=== PATIENT | female | born 1945 | race Caucasian/White ===

== ENCOUNTER 2018-02-15 08:17 | Inpatient (IN) | payer OTHER, MEDICARE ==
--- NOTE | 2018-02-15 10:10 | PDOC ---
History of Present Illness <JoeyKayla - Last Filed: 02/15/18 11:06> - History of Present Illness Initial Comments: 02/15/18 10:36 The patient is a 72-year-old female, with a past medical history of HTN, CLL ( not on any treatment), thalassemia, anxiety, kidney stones, gallstones, who presents to the ED with facial swelling today. Daughter is at bedside and reports that her mother was complaining of nausea but no vomiting. Patient refused to go to the hospital. Daughter went to visit her mother before work and noted the facial swelling, which is worse under her eyes and the left-side of her face. She also reports that the patient appeared more yellow in color last week but today appears more pale. Patient was scheduled to have blood work drawn today at the hospital per Dr. Sabi Leyva orders. The patient denies any fevers, chills, vomiting, diarrhea, or abdominal pain. She denies any chest pain or shortness of breath. She denies any urinary symptoms. Allergies: NKDA PCP: Dr. Sabi Jordan Oncologist: Dr. Garcia Gastro: Dr. Ga Cardio: Dr. Wick Uro: Dr. Valdez <Lo Johnson - Last Filed: 02/15/18 15:40> - General Chief Complaint: Nausea Stated Complaint: NAUSEA Time Seen by Provider: 02/15/18 09:37 Past History <JoeyKayla - Last Filed: 02/15/18 11:06> - Past Medical History Anemia: Yes (THALASSEMIA) Asthma: No Cancer: No Cardiac Disorders: No CVA: No COPD: No CHF: No Dementia: No Diabetes: No GI Disorders: No Disorders: Yes (RENAL CALCULI) HTN: Yes Hypercholesterolemia: No Liver Disease: No Seizures: No Thyroid Disease: No Other medical history: CLL 2014 - Surgical History Abdominal Surgery: No Appendectomy: No Cardiac Surgery: No Cholecystectomy: No Lung Surgery: No Neurologic Surgery: No Orthopedic Surgery: No - Suicide/Smoking/Psychosocial Hx Smoking Status: No Smoking History: Never smoked Have you smoked in the past 12 months: No Number of Cigarettes Smoked Daily: 0 Hx Alcohol Use: No Drug/Substance Use Hx: No Substance Use Type: None Hx Substance Use Treatment: No <Lo Johnson - Last Filed: 02/15/18 15:40> - Past Medical History Allergies/Adverse Reactions: Allergies Allergy/AdvReac Type Severity Reaction Status Date / Time No Known Drug Allergies Allergy Verified 02/15/18 08:23 Home Medications: Ambulatory Orders Aspirin [ASA -] 81 mg PO DAILY #0 tab.chew 08/26/12 Amlodipine Besylate [Norvasc -] 10 mg PO DAILY 09/01/13 Losartan Potassium 100 mg PO DAILY 02/15/18 Metoprolol Succinate 50 mg PO DAILY 02/15/18 Review of Systems - Review of Systems Comments:: 02/15/18 10:37 GENERAL/CONSTITUTIONAL: No fever or chills. No weakness. HEAD, EYES, EARS, NOSE AND THROAT: (+)swelling under L eye. No change in vision. No ear pain or discharge. No sore throat. GASTROINTESTINAL: (+)Nausea. No vomiting, diarrhea or constipation. GENITOURINARY: No dysuria, frequency, or change in urination. CARDIOVASCULAR: No chest pain or shortness of breath. RESPIRATORY: No cough, wheezing, or hemoptysis. MUSCULOSKELETAL: No joint or muscle swelling or pain. No neck or back pain. SKIN: No rash NEUROLOGIC: No headache, vertigo, loss of consciousness, or change in strength/ sensation. ENDOCRINE: No increased thirst. No abnormal weight change. HEMATOLOGIC/LYMPHATIC: No anemia, easy bleeding, or history of blood clots. ALLERGIC/IMMUNOLOGIC: No hives or skin allergy. <Lo Johnson - Last Filed: 02/15/18 15:40> *Physical Exam - Vital Signs Last Vital Signs Temp Pulse Resp BP Pulse Ox 100.5 F H 89 17 138/89 97 02/15/18 10:12 02/15/18 10:44 02/15/18 10:44 02/15/18 10:44 02/15/18 10:44 <Kayla Cook - Last Filed: 02/15/18 11:06> - Vital Signs Last Vital Signs Temp Pulse Resp BP Pulse Ox 99.7 F H 119 H 20 148/60 98 02/15/18 08:20 02/15/18 08:20 02/15/18 08:20 02/15/18 08:20 02/15/18 09:08 - Physical Exam Comments: 02/15/18 10:37 GENERAL: Awake, alert, and fully oriented, pale, thin with temporal wasting HEAD: No signs of trauma EYES: +Scleral icterus. +watery edema under L eye, PERRLA, EOMI ENT: +Poor dentition, dry mucosa. Auricles normal inspection, hearing grossly normal, nares patent, oropharynx clear without exudates. NECK: Normal ROM, supple LUNGS: Breath sounds equal, clear to auscultation bilaterally. No wheezes, and no crackles HEART: Regular rate and rhythm, normal S1 and S2, no murmurs, rubs or gallops ABDOMEN: Soft, nontender, normoactive bowel sounds. No guarding, no rebound. No masses EXTREMITIES: Normal range of motion, no edema. No clubbing or cyanosis. No cords , erythema, or tenderness BACK: No midline spinal tenderness in cervical/thoracic/lumbar region NEUROLOGICAL: Normal speech, cranial nerves intact, equal strength and sensation b/l, normal cerebellar exam, normal gait, normal reflexes and tone SKIN: +jaundice <Lo Johnson - Last Filed: 02/15/18 15:40> Heart Score/ECG Review #1 02/15/18 10:39 Twelve-lead EKG was performed and reviewed by me. Normal sinus rhythm, rate 98. Normal axis. No ST elevations. <Lo Johnson - Last Filed: 02/15/18 15:40> ED Treatment Course - LABORATORY CBC & Chemistry Diagram: 02/15/18 10:10 02/15/18 09:52 - ADDITIONAL ORDERS Additional order review: Laboratory Results 02/15/18 02/15/18 02/15/18 10:10 10:10 09:52 PT with INR 15.90 H INR 1.34 H PTT (Actin FS) 25.4 Sodium 144 Potassium 4.0 Chloride 110 H Carbon Dioxide 26 Anion Gap 9 BUN 15 Creatinine 1.2 Creat Clearance w eGFR 44.16 Random Glucose 126 H Lactic Acid 1.1 Calcium 8.7 Magnesium 2.1 Ferritin Total Bilirubin 4.2 H AST 14 L ALT 11 L Alkaline Phosphatase 66 Troponin I < 0.02 B-Natriuretic Peptide Total Protein 6.2 L Albumin 3.4 Triglycerides Cholesterol Total LDL Cholesterol HDL Cholesterol Lipase 102 TSH 1.51 02/15/18 09:52 PT with INR INR PTT (Actin FS) Sodium Potassium Chloride Carbon Dioxide Anion Gap BUN Creatinine Creat Clearance w eGFR Random Glucose Lactic Acid Calcium Magnesium Ferritin 145.2 Total Bilirubin AST ALT Alkaline Phosphatase Troponin I B-Natriuretic Peptide 1360.6 H Total Protein Albumin Triglycerides 77 Cholesterol 71 Total LDL Cholesterol 40 HDL Cholesterol 32 L Lipase TSH 02/15/18 10:10 RBC 1.97 L MCV 61.6 L MCHC 30.0 L RDW 21.7 H MPV 7.9 D Neutrophils % 26.9 L D Lymphocytes % 68.7 H D - RADIOLOGY Radiology Studies Ordered: 02/15/18 11:06 Chest X-Ray was reviewed by Dr. Johnson and over-read by Radiology. Impression: Large heart. No acute chest pathology. <Kayla Cook - Last Filed: 02/15/18 11:06> - LABORATORY CBC & Chemistry Diagram: 02/15/18 10:10 02/15/18 09:52 - RADIOLOGY Radiology Studies Ordered: Category Date Time Status ABDOMEN & PELVIS CT W/O CONTR [CT] Stat CT Scan 02/15/18 09:[address] WITHOUT CONTRAST [CT] Stat CT Scan 02/15/18 09:[address] WITHOUT CONTRAST [CT] Stat CT Scan 02/15/18 09:59 Ordered CHEST X-RAY PORTABLE* [RAD] Stat Radiology 02/15/18 09:52 Ordered <Lo Johnson - Last Filed: 02/15/18 15:40> Medical Decision Making - Medical Decision Making 02/15/18 10:03 72yo F hx CLL, thalassemia, HTN presents to the ED with painless jaundice, weight loss, nausea. Vitals concerning for elevated temp, tachycardia. Concern for malignancy, possibly pancreatic mass causing obstruction. Plan for labs, CTH , CT chest, abd, pelvis, UA, CXR, admit to Dr. Jordan. 02/15/18 11:13 Pt is anemic with hgb 3.3 Also leukopenic to 1.9, neutrophils 26%, pt is borderline neutropenic Bili 4 REctaly febrile Will cover with zosyn in case of cholangitis and neutropenia CT head, chest , abd pelvis pending Dr. Jordan would like to hold off on IV contrast PO contrast given Plan to transfuse 2 units Pt admitted to Dr. Jordan 02/15/18 15:38 CTAP with choledocholithiasis Discussed with Dr. Jordan who has already called Dr. Abram Boo on board given jaundice and borderline neutropenia Dr. Jordan requests we order Onofre test which I have ordered Case discussed in detail with admitting physician including history, physical exam and ancillary studies. Admitting physician has assumed care for the patient, will follow all pending diagnostics and will complete the evaluation and treatment. <Lo Johnson - Last Filed: 02/15/18 15:40> *DC/Admit/Observation/Transfer <Kayla Cook - Last Filed: 02/15/18 11:06> - Discharge Dispostion Decision to Admit order: Yes - Attestations Physician Attestion: 02/15/18 11:17 I, Dr. Lo Johnson MD, attest that this document has been prepared under my direction and personally reviewed by me in its entirety. I further attest, that it accurately reflects all work, treatment, procedures and medical decision -making performed by me. <Lo Johnson - Last Filed: 02/15/18 15:40> Diagnosis at time of Disposition: Scleral icterus, Jaundice, Fever, Anemia requiring transfusions, Choledocholithiasis - Discharge Dispostion Condition at time of disposition: Stable - Referrals Referrals: Sabi Jordan [Primary Care Provider] - - Patient Instructions - Post Discharge Activity
[2018-02-15 10:28] LABS: LYMPH % 68.7 % (8-40); MEAN CELL VOLUME 61.6 fl (80-96); MEAN PLT VOLUME 7.9 fl (7.5-11.1); NEUT % 26.9 % (42.8-82.8); PLATELET COUNT 262 K/MM3 (134-434); RBC 1.97 M/mm3 (3.60-5.2); RDW 21.7 % (11.6-15.6)
[2018-02-15 10:43] LABS: MCH 18.5 pg (25.7-33.7)
[2018-02-15 10:44] LABS: HEMATOCRIT 11.2 % (32.4-45.2); HEMOGLOBIN 3.8 GM/dL (10.7-15.3); WHITE BLOOD COUNT 1.9 K/mm3 (4.0-10.0)
[2018-02-15] MEDS ORDERED: ACETAMINOPHEN 1000 MG/100 ML VIAL (NON FORMULARY) IVPB ONE ×2 (10:55→17:28)
[2018-02-15 10:56] LABS: INR 1.34 (0.83-1.09); PROTHROMBIN TIME (PATIENT) 15.9 SEC (9.7-13.0)
[2018-02-15 10:59] LABS: ACTIVATED PTT 25.4 SECONDS (25.2-36.5)
[2018-02-15 11:03] LABS: N-TERMINAL BNP 1360.6 pg/ml (5-125)
[2018-02-15 11:06] LABS: ALBUMIN 3.4 g/dl (3.4-5.0); ALK PHOS 66 U/L (45-117); ANION GAP 9 MMOL/L (8-16); BILIRUBIN,TOTAL 4.2 mg/dL (0.2-1); BLOOD UREA NITROGEN 15 mg/dL (7-18); CALCIUM 8.7 mg/dL (8.5-10.1); CHLORIDE 110 mmol/L (98-107); CO2 26 mmol/L (21-32); CREATININE 1.2 mg/dL (0.55-1.3); GLUCOSE,RANDOM 126 mg/dL (74-106); LIPASE 102 U/L (73-393); MAGNESIUM 2.1 mg/dL (1.8-2.4); SGOT/AST 14 U/L (15-37); SGPT/ALT 11 U/L (13-61); SODIUM 144 mmol/L (136-145); TOT PROT 6.2 g/dl (6.4-8.2)
[2018-02-15] MEDS ORDERED: PIPERACILLIN/TAZOB 4.5 GM 4.5 GM in DEXTROSE 5%-WATER - 100 ML IVPB ONE (11:17)
[2018-02-15 11:31] LABS: URINE APPEARANCE CLEAR; URINE BILIRUBIN NEGATIVE (<2.0 mg/dL); URINE COLOR YELLOW; URINE GLUCOSE (UA) NEGATIVE (NEGATIVE); URINE KETONE NEGATIVE (NEGATIVE); URINE LEUK ESTERASE 1+ (NEGATIVE); URINE NITRITE NEGATIVE (NEGATIVE); URINE PROTEIN NEGATIVE (NEGATIVE)
--- NOTE | 2018-02-15 11:35 | EKG ---
Test Reason : Blood Pressure : / mmHG Vent. Rate : 098 BPM Atrial Rate : 098 BPM P-R Int : 130 ms QRS Dur : 078 ms QT Int : 348 ms P-R-T Axes : 038 -21 028 degrees QTc Int : 444 ms POOR DATA QUALITY, INTERPRETATION MAY BE ADVERSELY AFFECTED SINUS RHYTHM WITH PREMATURE ATRIAL COMPLEXES NONSPECIFIC ST AND T WAVE ABNORMALITY ABNORMAL ECG Confirmed by Fausto Francisco MD ([id number]) on 02/15/2018 11:34:32 AM Referred By: Confirmed By:Fausto Francisco MD
[2018-02-15 11:38] LABS: EPI CELLS RARE /HPF (FEW); URINE BACTERIA FEW /hpf (NONE SEEN); URINE MUCUS RARE
[2018-02-15] MEDS ORDERED: ACETAMINOPHEN INJECTION 100 ML IVPB ONE ×2 (11:41→17:05)
[2018-02-15] MEDS ORDERED: PIPERACILLIN/TAZOB 4.5 GM 4.5 GM/100 ML BAG IVPB ONE (11:41)
[2018-02-15 15:31] LABS: ACANTHOCYTES 1+; ANISOCYTOSIS 2+; MACROCYTOSIS 0; PLATELET ESTIMATE NORMAL; TARGET CELLS 1+; TEAR DROP CELLS 1+
--- NOTE | 2018-02-15 17:28 | PN ---
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 (short form) - Note 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: ID Consult dictated Hemolytic anemia ? Autoimmune ?Infectious ?HLH Leukopenia R/O sepsis Choledocholithiasis R/O biliary sepsis BC Hemolysis w/u Babesia smear, PCR Anaplasma Parvovirus PCR HIV test (consents) Empiric coverage biliary tract pathogens with Zosyn
[2018-02-15] MEDS ORDERED: PIPERACILLIN/TAZOB 3.375 GM 3.375 GM/50 ML BAG IVPB ONE (18:05)
[2018-02-15] MEDS: PIPERACILLIN/TAZOB 3.375 GM 3.375 GM in DEXTROSE 5%-WATER - 50 ML IVPB SCH (18:10)
--- NOTE | 2018-02-15 18:40 | CONS ---
DATE OF CONSULTATION: DATE OF DICTATION: 02/15/2018 INFECTIOUS DISEASE CONSULTATION HISTORY OF PRESENT ILLNESS: The patient is a 72-year-old female with a history of CLL evaluated for sepsis. She was brought to the hospital by her daughter who noted her to be jaundiced and with facial swelling. The patient has been experiencing painless jaundice and facial swelling. In addition, she has had anorexia, nausea, and a 10-pound weight loss. She was evaluated in the emergency room where she was noted to be markedly anemic with a hemoglobin of 3.8 and an elevated bilirubin at 4.2. A hemolysis workup has been commenced. She has no focal complaints at the present time. She denies any fever or shaking chills, chest pain, shortness of breath, cough, sputum production, vomiting, diarrhea, dysuria, or hematuria. She has not been on therapy for her CLL. She denies any ill contacts. No recent travel. She has a pet dog with her at home. She does not spend time outdoors. No known tick bites. She denies risk factors for HIV, although status is not known. PAST MEDICAL HISTORY: Positive for CLL, hypertension, thalassemia, nephrolithiasis, cholelithiasis. ALLERGIES: No known allergies. MEDICATION: Aspirin, Norvasc, metoprolol. SOCIAL HISTORY: Lives alone at home. Denies tobacco, alcohol, or illicit drug use. SYSTEMS REVIEW: Neurologic: No loss of consciousness, seizure activity, focal weakness. Cardiac: Negative for chest pain or palpitations. Respiratory: Negative for cough or sputum production. Gastrointestinal: As per HPI. Genitourinary: Negative for urinary tract infection. LABORATORY DATA: White count 1.9, 44 neutrophils, 1 band, 49 lymphocytes. Hematocrit 11.2. Platelets 262. BUN 15, creatinine 1.2, total bilirubin 4.2, alkaline phosphatase 66, AST 14. Urinalysis 1+ leukocyte esterase. Blood cultures are pending. PHYSICAL EXAMINATION: General: On exam, she is chronically ill appearing, cachectic, jaundiced. She is in no acute distress. She does not appear to be acutely toxic. Vital signs: Temperature 100.5, blood pressure 138/85, pulse 85 regular, respirations 18 per minute. HEENT: Sclerae icteric. Dry mucous membranes. Cardiovascular: Heart sounds S1, S2. No murmur. Lungs: Crepitations at the bases bilaterally. Abdomen: Soft, nontender. No palpable liver or spleen. Extremities: Negative for edema. IMPRESSION: 1. Hemolytic anemia, rule out autoimmune disease versus infectious etiology. Rule out hemophagocytic lymphohistiocytosis (less likely). 2. Leukopenia, possibly secondary to sepsis. 3. Choledocholithiasis rule out biliary sepsis. Hemolysis workup in progress. Will await blood culture. Obtain Babesia smear and PCR and a plasma PCR, parvovirus PCR, HIV testing (patient consents). Continue empiric coverage of biliary tract pathogens with Zosyn 3.375 g IV piggyback every 8 hours. Will follow. Thank you for the kind referral. JUNI CANO M.D. MARY [id number]
[2018-02-15] MEDS ORDERED: predniSONE 20 MG TABLET (UD) ONE (18:51)
[2018-02-15] MEDS ORDERED: predniSONE 10 MG TABLET (UD) ONE (18:52)
[2018-02-15] MEDS ORDERED: PANTOPRAZOLE 40 MG TABLET (FP) ONE (18:52)
[2018-02-15] MEDS: predniSONE 20 MG TABLET (UD) PO SCH (19:00)
[2018-02-15] MEDS: PANTOPRAZOLE 20 MG TABLET (FP) PO SCH (19:00)
--- NOTE | 2018-02-15 19:12 | PN ---
Teaching Attending Note Name of Resident: Sushma Leslie ATTENDING PHYSICIAN STATEMENT I saw and evaluated the patient. I reviewed the resident's note and discussed the case with the resident. I agree with the resident's findings and plan as documented. SUBJECTIVE: Patient seen and examined 72 year old female with history of Stage ) CLL presents with neutropenia and profound anemia. Has normoblasts in peripheral blood , with ANC about 500 , normal platelets and Hct- 11%. Corrected retic count is low and bilirubin total elevated Despite anemia - patient relatively asymptomatic. Last Vital Signs Temp Pulse Resp BP Pulse Ox 99.2 F 74 17 100/57 L 98 02/15/18 19:02 02/15/18 19:02 02/15/18 19:02 02/15/18 19:02 02/15/18 19:02 HEENT: FELIBERTO, EOM Intact, icteric Oropharynx: No thrush, No mucositis Neck: Supple Nodes: few shoddy cervical adenopathy Breasts: Without masses Cor: RSR, systolic murmur Lungs: Clear to P&A Abd: Soft, Normal bowel sounds, No organomegaly Ext:No significant edema Skin: No rashes, Integument intact CBC, BMP 02/15/18 10:10 02/15/18 09:52 Abnormal Lab Results 02/15/18 02/15/18 02/15/18 09:52 09:52 10:10 WBC 1.9 L* RBC 1.97 L Hgb 3.8 L* Hct 11.2 L MCV 61.6 L MCH 18.5 L MCHC 30.0 L RDW 21.7 H Neutrophils % 26.9 L D Lymphocytes % 68.7 H D Lymphocytes % (Manual) 49.5 H Nucleated RBC % 7 H ESR Retic Count PT with INR INR Chloride 110 H Random Glucose 126 H Total Bilirubin 4.2 H AST 14 L ALT 11 L B-Natriuretic Peptide 1360.6 H Total Protein 6.2 L HDL Cholesterol 32 L Urine Blood Urine Urobilinogen Ur Leukocyte Esterase Crossmatch 02/15/18 02/15/18 02/15/18 10:10 10:10 10:10 WBC RBC Hgb Hct MCV MCH MCHC RDW Neutrophils % Lymphocytes % Lymphocytes % (Manual) Nucleated RBC % ESR > 140 H Retic Count PT with INR 15.90 H INR 1.34 H Chloride Random Glucose Total Bilirubin AST ALT B-Natriuretic Peptide Total Protein HDL Cholesterol Urine Blood Urine Urobilinogen Ur Leukocyte Esterase Crossmatch See Detail 02/15/18 02/15/18 11:20 17:19 WBC RBC Hgb Hct MCV MCH MCHC RDW Neutrophils % Lymphocytes % Lymphocytes % (Manual) Nucleated RBC % ESR Retic Count 3.47 H D PT with INR INR Chloride Random Glucose Total Bilirubin AST ALT B-Natriuretic Peptide Total Protein HDL Cholesterol Urine Blood 2+ H Urine Urobilinogen 2.0 H Ur Leukocyte Esterase 1+ H Crossmatch Current Medications Generic Name Dose Route Start Last Admin Trade Name Freq PRN Reason Stop Dose Admin Amlodipine Besylate 2.5 mg 02/16/18 10:00 Norvasc - PO DAILY RYAN Aspirin 81 mg 02/16/18 10:00 Asa - PO DAILY RYAN Piperacillin Sod/Tazobactam 50 mls @ 100 mls/hr 02/15/18 18:00 02/15/18 18:10 Sod 3.375 gm/ Dextrose IVPB 100 mls/hr Q8H-IV RYAN Administration Protocol Losartan Potassium 25 mg 02/16/18 10:00 Cozaar - PO DAILY RYAN Metoprolol Succinate 25 mg 02/16/18 10:00 Toprol Xl - PO DAILY RYAN Pantoprazole Sodium 20 mg 02/15/18 18:45 02/15/18 19:00 Protonix - PO 20 mg DAILY RYAN Administration Prednisone 50 mg 02/15/18 18:45 02/15/18 19:00 Deltasone - PO 50 mg DAILY RYAN Administration OBJECTIVE:CT-reviewed -- minimal adenopathy; no significant organomegaly u/a- 2+ blood,+ leucocyte esterase; Staghorn calculus, mild hydronephrosis CBD stone , GB calculi Impression: Suspect - hemolytic anemia as etiology for anemia.-- check stool , check Onofre , LDH haptoglobin etc. possible sepsis as etiology of neutropena- or biliary source Unsuspected etiologies- see ID. To begin Prednisone 50 mg ( 1 mg/kg) and give PPI. Await further work up. ASSESSMENT AND PLAN:
--- NOTE | 2018-02-15 19:56 | CONSULT ---
Consultation: REQUESTING PROVIDER: Dr. Jordan CONSULT REQUEST FOR HEMATOLOGY/ONCOLOGY: We have been asked to medically evaluate this patient for Leukopenia. HISTORY OF PRESENT ILLNESS: Patient is a 72 year old female with a PMHx of HTN, CLL (on no tratment), hx of cholelithiasis and nephrolithiasis who was brought in by her daughter for increasing facial swelling that she noticed last week. Patient's daughter reports last (02/10/18) she noticed her mom had yellow discoloration of the skin and eyes, which prompted her to go to her PCP's office for blood work. 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 According to the daughter, patient reports no complaints other than nausea that started yesterday. Patient follows Dr. Garcia with Q3-4 monthly follow ups. Patient is currently on no treatment for CLL, as her WBC's have been ranging between 10-14. Otherwise, patient denies fevers, chills, night sweats, weight loss, vomiting, diarrhea, abdominal pain, chest pain or shortness of breath, urinary symptoms. In the ED, patient was found to have leukopenia, neutropenia and anemia with WBC 1.9, Hgb of 3.8 and Hct of 11%. ANC was calculated at about 500. Corrected Reticulocyte was low. Patient also found to have an elevated Bili with direct pending. We were consulted to further evaluate patient. Patient remains asymptomatic despite these findings. PMHx: CLL, HTN, Cholelithiaiss, Nephrolithiasis PSHx: Denies Social Hx: Lives alone. Denies alcohol, drugs, and smoking Medications: Norvasc, Losartan, Metporolol, Aspirin Allergies: NKDA REVIEW OF SYSTEMS: CONSTITUTIONAL: Absent: fever, chills, diaphoresis, generalized weakness, malaise, loss of appetite, weight change HEENT: Scleral icterus Absent: rhinorrhea, nasal congestion, throat pain, throat swelling, difficulty swallowing, mouth swelling, ear pain, eye pain, visual changes CARDIOVASCULAR: Absent: chest pain, syncope, palpitations, irregular heart rate, lightheadedness , peripheral edema RESPIRATORY: Absent: cough, shortness of breath, dyspnea with exertion, orthopnea, wheezing, stridor, hemoptysis GASTROINTESTINAL: nausea Absent: abdominal pain, abdominal distension, vomiting, diarrhea, constipation, melena, hematochezia GENITOURINARY: Absent: dysuria, frequency, urgency, hesitancy, hematuria, flank pain, genital pain MUSCULOSKELETAL: Absent: myalgia, arthralgia, joint swelling, back pain, neck pain SKIN: Jaundice, pallor Absent: rash, itching HEMATOLOGIC/IMMUNOLOGIC: Absent: easy bleeding, easy bruising, lymphadenopathy, frequent infections ENDOCRINE: Absent: unexplained weight gain, unexplained weight loss, heat intolerance, cold intolerance NEUROLOGIC: Absent: headache, focal weakness or paresthesias, dizziness, unsteady gait, seizure, mental status changes, bladder or bowel incontinence PSYCHIATRIC: Absent: anxiety, depression, suicidal or homicidal ideation, hallucinations. PHYSICAL EXAMINATION Vital Signs - 24 hr 02/15/18 02/15/18 17:34 17:55 Temperature 99.9 F H 100.9 F H Pulse Rate Pulse Rate [ 87 Apical] Respiratory 19 Rate Blood Pressure Blood Pressure 115/73 [Right Arm] O2 Sat by Pulse 96 Oximetry (%) GENERAL: Awake, alert, Pale, and fully oriented, in no acute distress. HEAD: Normal with no signs of trauma. EYES: Pupils equal, round and reactive to light, extraocular movements intact, scleral icterus. EARS, NOSE, THROAT: Oropharynx clear without exudates. Moist mucous membranes. Poor Dentition NECK: (+) cervical adenopathy bilaterally. LUNGS: Breath sounds equal, clear to auscultation bilaterally. No wheezes, and no crackles. No accessory muscle use. HEART: Regular rate and rhythm, normal S1 and S2, (+) 2 WINDY ABDOMEN: Soft, nontender, not distended, normoactive bowel sounds, no guarding, no rebound, no masses. No organomegaly MUSCULOSKELETAL: No CVA tenderness. UPPER EXTREMITIES: No peripheral edema. LOWER EXTREMITIES: No peripheral edema. NEUROLOGICAL: Cranial nerves II-XII intact. Normal speech. Motor strength 5/5 bilaterally with sensory intact PSYCHIATRIC: Cooperative. Good eye contact. Appropriate mood and affect. SKIN: Warm, dry, normal turgor, no rashes or lesions noted. Laboratory Results WBC 1.9 K/mm3 (4.0-10.0) L* 02/15/18 10:10 RBC 1.97 M/mm3 (3.60-5.2) L 02/15/18 10:10 Hgb 3.8 GM/dL (10.7-15.3) L* 02/15/18 10:10 Hct 11.2 % (32.4-45.2) L 02/15/18 10:10 MCV 61.6 fl (80-96) L 02/15/18 10:10 MCHC 30.0 g/dl (32.0-36.0) L 02/15/18 10:10 RDW 21.7 % (11.6-15.6) H 02/15/18 10:10 Plt Count 262 K/MM3 (134-434) 02/15/18 10:10 MPV 7.9 fl (7.5-11.1) D 02/15/18 10:10 Sodium 144 mmol/L (136-145) 02/15/18 09:52 Potassium 4.0 mmol/L (3.5-5.1) 02/15/18 09:52 Chloride 110 mmol/L (98-107) H 02/15/18 09:52 Carbon Dioxide 26 mmol/L (21-32) 02/15/18 09:52 Anion Gap 9 MMOL/L (8-16) 02/15/18 09:52 BUN 15 mg/dL (7-18) 02/15/18 09:52 Creatinine 1.2 mg/dL (0.55-1.3) 02/15/18 09:52 Creat Clearance w eGFR 44.16 (>60) 02/15/18 09:52 Calcium 8.7 mg/dL (8.5-10.1) 02/15/18 09:52 Total Bilirubin 4.2 mg/dL (0.2-1) H 02/15/18 09:52 AST 14 U/L (15-37) L 02/15/18 09:52 ALT 11 U/L (13-61) L 02/15/18 09:52 Alkaline Phosphatase 66 U/L (45-117) 02/15/18 09:52 Total Protein 6.2 g/dl (6.4-8.2) L 02/15/18 09:52 Albumin 3.4 g/dl (3.4-5.0) 02/15/18 09:52 02/15/18 02/15/18 02/15/18 09:52 10:10 10:10 ESR > 140 H Retic Count INR 1.34 H PTT (Actin FS) 25.4 Total Bilirubin 4.2 H AST 14 L ALT 11 L Alkaline Phosphatase 66 02/15/18 17:19 ESR Retic Count 3.47 H D INR PTT (Actin FS) Total Bilirubin AST ALT Alkaline Phosphatase Active Medications Generic Name Dose Route Start Last Admin Trade Name Freq PRN Reason Stop Dose Admin Amlodipine Besylate 2.5 mg 02/16/18 10:00 Norvasc - PO DAILY RYAN Aspirin 81 mg 02/16/18 10:00 Asa - PO DAILY RYAN Piperacillin Sod/Tazobactam 50 mls @ 100 mls/hr 02/15/18 18:00 02/15/18 18:10 Sod 3.375 gm/ Dextrose IVPB 100 mls/hr Q8H-IV RYAN Administration Protocol Losartan Potassium 25 mg 02/16/18 10:00 Cozaar - PO DAILY RYAN Metoprolol Succinate 25 mg 02/16/18 10:00 Toprol Xl - PO DAILY RYAN Pantoprazole Sodium 20 mg 02/15/18 18:45 Protonix - PO DAILY RYAN Prednisone 50 mg 02/15/18 18:45 Deltasone - PO DAILY RYAN IMAGES CT Chest/Abdomen/Pelvis (02/15/18): In comparison to a prior CT study of 2014 interval development of choledocholithiasis is noted. There is visualization of a 0.3 cm calculus within the lower third of the common bile duct. No obvious associated biliary tract dilatation is seen. As the prior study cholelithiasis is identified without CT evidence of acute cholecystitis. Mild right hydronephrosis is noted which appears slightly increased since the previous exam. An obstructing staghorn calculus is again noted within the right renal pelvis. The staghorn calculus appears increased in size. Urology consultation is suggested. Mediastinal, bilateral axillary, retroperitoneal, bilateral pelvic and bilateral inguinal lymphadenopathy is noted without obvious interval change in comparison to 2015 CT exams. Correlate with the results of ultrasound-guided left axillary lymph node biopsy performed on 2013. Stable borderline splenic size. Cardiomegaly which is probably mild. Correlate with echocardiography. Stable small bilateral lower lobe pulmonary nodules. Mild chronic left lower lobe linear parenchymal scarring. ASSESSMENT/PLAN: Patient is a 72 year old female with a PMHx of CLL (on no trestment) who presented for facial swelling, jaundice and blood work revealed profound anemia with Hgb 3.8, neutropenia with WBC of 1.9. Problem List: CLL HTN Neutropenia Possible Hemolytic Anemia Choledocolithiasis Hydronephrosis Lymphadenopathy Possible sepsis with febrile neutropenia PLAN: -Patient on CT was found to have obstructed calculus with hydronephrosis and U/ A revealing LE 1+, 2+ blood, which is concerning for suspected urosepsis. Patient also found to have Choledocolithiasis with possible biliary source of infection. Would need a GI consult and Urology consult -Check Direct kimberly, LDH, Haptoglobin, Direct and indirect Bili, B12, folate, and stool guaic -Due to patient's history of CLL in the setting of Anemia and neutropenia, will start patient on Prednisone 50mg PO (1mg/kg) daily with Protonix. -Transfuse 2 PRBC's and repeat CBC. Transfuse if Hgb <7 -Repeat Retic count, CBC, and CMP in the morning Dispo: We will continue to follow the patient. Thank you for this consultative opportunity. Sushma Leslie [id number] Visit type - Emergency Visit Emergency Visit: Yes ED Registration Date: 02/15/18 Care time: The patient presented to the Emergency Department on the above date and was hospitalized for further evaluation of their emergent condition. - New Patient This patient is new to me today: Yes Date on this admission: 02/15/18 - Critical Care Critical Care patient: No
[2018-02-15 20:04] LABS: LDH 263 U/L (84-246)
--- NOTE | 2018-02-15 20:40 | HP ---
Admitting History and Physical - Primary Care Physician PCP: Sabi Jordan S - Admission Chief Complaint: facial swelling History of Present Illness: The patient is a 72-year-old female, with a past medical history of HTN, CLL ( not on any treatment), thalassemia, anxiety, kidney stones, gallstones, who presents to the ED with facial swelling today. Daughter Dayana is at bedside in ER and reports that her mother was complaining of nausea but no vomiting yesterday but not today. Patient refused to go to the hospital yesterday. Daughter noticed this am that pt has facial swelling, which is worse under her eyes and the left-side of her face. She also reports that the patient appeared more yellow in color and mlore pale since last week and lost some weight over the last few weeks. Patient saw me in office last week accompanied by her daughter; daughter brought her in b/o looking pale but pt denied any c/o at that time and said she feels fine; weight loss noted; I ordered labs and CAP CT scans at that time but were not done yet. The pt currently denies any c/o said she feels good and she wants to go home. The patient denies any fevers, chills, vomiting, diarrhea, or abdominal pain. She denies any chest pain or shortness of breath. No wheezing. No fever/cough/ dysuria. She denies any urinary symptoms. Pt said she feels well and she wants to go home [place]. pt and daughter denied using any new meds, foods or fragrances that could give her allergies. pt has h.o renal stones was supposed to have laser lythotripsy in the past per but she never went for it; also has h/o gallstones, was referred to GI and surgery; saw GI but never went for surgery eval said she does not want any surgeries or interventions. d/w pt and daughter in ER at bedside, d/w ER staff History Source: Patient, Family Member, Medical Record Limitations to Obtaining History: No Limitations - Past Medical History Cardiovascular: Yes: HTN Gastrointestinal: Yes: Other (gallstones) Renal/: Yes: Renal Calculi Heme/Onc: Yes: Anemia, Cancer, Other (CLL) - Smoking History Smoking history: Never smoked Have you smoked in the past 12 months: No Aproximately how many cigarettes per day: 0 - Alcohol/Substance Use Hx Alcohol Use: No History of Substance Use: reports: None - Social History Usual Living Arrangement: Yes: With Child ADL: Independent History of Recent Travel: No Home Medications - Allergies Allergies/Adverse Reactions: Allergies Allergy/AdvReac Type Severity Reaction Status Date / Time No Known Drug Allergies Allergy Verified 02/15/18 08:23 - Home Medications Home Medications: Ambulatory Orders Aspirin [ASA -] 81 mg PO DAILY #0 tab.chew 08/26/12 Amlodipine Besylate [Norvasc -] 10 mg PO DAILY 09/01/13 Losartan Potassium 100 mg PO DAILY 02/15/18 Metoprolol Succinate 50 mg PO DAILY 02/15/18 Family Disease History - Family Disease History Family History: Unremarkable Review of Systems - Review of Systems Constitutional: denies: Chills, Fever Eyes: denies: Blind Spots, Blurred Vision, Double Vision HENT: denies: Epistaxis Neck: denies: Stiffness, Tenderness Cardiovascular: denies: Chest Pain, Palpitations, Shortness of Breath Respiratory: denies: Cough, SOB, SOB on Exertion, Wheezing Gastrointestinal: denies: Abdominal Pain, Bloating, Constipation, Diarrhea, Melena, Rectal Bleeding, Vomiting Genitourinary: denies: Dysuria, Flank Pain, Hematuria, Vaginal Bleeding Musculoskeletal: denies: Back Pain, Extremity Pain, Joint Pain Integumentary: denies: Eczema, Rash, Wound Neurological: denies: Confusion, Dizziness, Headache, Pre-Existing Deficit, Seizure, Syncope, Unsteady Gait Endocrine: denies: Excessive Sweating Hematology/Lymphatic: denies: Easily Bruised, Excessive Bleeding Psychiatric: reports: Anxiety. denies: Altered Sleep Pattern, Depression, Suicidal Physical Examination Vital Signs: Vital Signs Temperature 99.2 F 02/15/18 19:02 Pulse Rate 74 02/15/18 19:02 Respiratory Rate 17 02/15/18 19:02 Blood Pressure 100/57 L 02/15/18 19:02 O2 Sat by Pulse Oximetry (%) 98 02/15/18 19:02 Constitutional: Yes: No Distress, Anxious Eyes: Yes: Conjunctiva Clear HENT: Yes: Atraumatic Neck: Yes: Supple Cardiovascular: Yes: Regular Rate and Rhythm Respiratory: Yes: Regular Gastrointestinal: Yes: Soft. No: Distention Renal/: No: CVA Tenderness - Left, CVA Tenderness - Right, Hematuria Musculoskeletal: No: Joint Stiffness, Joint Swelling Extremities: No: Cold, Cool, Cyanosis Edema: Yes (facial L>R) Integumentary: No: Bruising, Pressure Ulcer, Rash, Venous Stasis Changes Neurological: Yes: WNL, Alert, Oriented ...Motor Strength: WNL Psychiatric: Yes: WNL, Alert, Oriented. No: Agitated, Suicidal Ideation Labs: CBC, BMP 02/15/18 10:10 02/15/18 09:52 Imaging - Results Chest X-ray: Report Reviewed Other: Report Reviewed Assessment/Plan The patient is a 72-year-old female, with a past medical history of HTN, CLL ( not on any treatment), thalassemia, anxiety, kidney stones, gallstones, who presents to the ED with facial swelling today. Also noted to be pale and have some jaundice. labs and chest abdomen CT ordered stat, d/w pt and daughter, d/w ER staff results of the above reviewed severely anemic Hg 3.8 neutropenic WBC 1.9; TBili 4 DBili 0.4 (mostly indirect); had low grade fever in ER; ANC [address] scan reviewed 3 mm galsstone in CBD no biliary dilation; renal stones and mild hydronephrosis UA 4WBC admit to ICU neutropenic fever; CBD stone, renal stones, h/o CLL severe anemia and neurtopenia IVF IV broad spectrum antibiotics, ID called; send cultures d/w heme dr Garcia; d/w GI dr Macias might need ERCP d/w pt and daughter Dayana at bedside and / phone prognosis guarded - pt's condition d/w pt and daughter in detail t time 75 min
--- NOTE | 2018-02-15 20:49 | CON.GI ---
Consult Consult Specialty:: Gastroenterology Referred by:: Dr Jordan Reason for Consultation:: jaundice - History of Present Illness Chief Complaint: Jaundice History of Present Illness: 72F with h/o CLL that had so far no required therapy presents with painless jaundice noticed by her daughter. Ayleen denies and abdominal pain, jaundice, pruritus , chills or fever but is very reserved in her responses. She was 101 in the ER. Ayleen believes that her mother had nausea, anorexia,facila swelling , chills and notes a recent weight loss. Ayleen lives with her . Giacomo the daughter informs me that her mother has been refractory to physician interventions and procedures chronically. I saw her in 2013 when a colon cancer screening was advised but she refused. She was close to have a procedure recently with Dr Wren for obstructing nephrolithiasis but refused at the last moment to proceed. Ayleen denies any h/o liver disease, IVDA, transfusions and tattoos. She denies ever having had any surgery but in 2013 told me that she had a tonsillectomy and left axillary lymph node biopsy. - History Source History Provided By: Patient, Family Member Limitations to Obtaining History: Other (patient is reluctant to elaborate) - Past Medical History Cardio/Vascular: Yes: HTN Gastrointestinal: Yes: Diverticulosis (on CT scan) Hepatobiliary: Yes: Cholelithiasis Renal/: Yes: Renal Calculi Heme/Onc: Yes: Myeloproliferative Synd (CLL), Other (thalassemia) Psych: Yes: Anxiety - Past Surgical History Past Surgical History: Yes: Tonsillectomy Additional Surgical History: left axillary lymph node biopsy - Alcohol/Substance Use Hx Alcohol Use: Yes (rare, on holidays) - Smoking History Smoking history: Never smoked Have you smoked in the past 12 months: No Aproximately how many cigarettes per day: 0 - Social History Usual Living Arrangement: With Spouse ADL: Independent 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 Place of : [facility] History of Recent Travel: No Home Medications - Allergies Allergies/Adverse Reactions: Allergies Allergy/AdvReac Type Severity Reaction Status Date / Time No Known Drug Allergies Allergy Verified 02/15/18 08:23 - Home Medications Home Medications: Ambulatory Orders Aspirin [ASA -] 81 mg PO DAILY #0 tab.chew 08/26/12 Amlodipine Besylate [Norvasc -] 10 mg PO DAILY 09/01/13 Losartan Potassium 100 mg PO DAILY 02/15/18 Metoprolol Succinate 50 mg PO DAILY 02/15/18 Family Disease History - Family Disease History Family Disease History: Other: Father (in his 80's pneumonia), Mother ( age 93 of CVA hemorrhage) Review of Systems - Review of Systems Constitutional: reports: Chills (as per daughter), Unintentional Wgt. Loss (as per daughter) Eyes: reports: No Symptoms HENT: reports: No Symptoms Neck: reports: No Symptoms Cardiovascular: reports: No Symptoms Respiratory: reports: No Symptoms Gastrointestinal: reports: No Symptoms Psychiatric: reports: Anxiety Physical Exam-GI Vital Signs: Vital Signs Temperature 99.2 F 02/15/18 19:02 Pulse Rate 74 02/15/18 19:02 Respiratory Rate 17 02/15/18 19:02 Blood Pressure 100/57 L 02/15/18 19:02 O2 Sat by Pulse Oximetry (%) 98 02/15/18 19:02 CBC,CMP WBC 1.9 K/mm3 (4.0-10.0) L* 02/15/18 10:10 RBC 1.97 M/mm3 (3.60-5.2) L 02/15/18 10:10 Hgb 3.8 GM/dL (10.7-15.3) L* 02/15/18 10:10 Hct 11.2 % (32.4-45.2) L 02/15/18 10:10 MCV 61.6 fl (80-96) L 02/15/18 10:10 MCH 18.5 pg (25.7-33.7) L 02/15/18 10:10 MCHC 30.0 g/dl (32.0-36.0) L 02/15/18 10:10 RDW 21.7 % (11.6-15.6) H 02/15/18 10:10 Plt Count 262 K/MM3 (134-434) 02/15/18 10:10 MPV 7.9 fl (7.5-11.1) D 02/15/18 10:10 Neutrophils % 26.9 % (42.8-82.8) L D 02/15/18 10:10 Neutrophils % (Manual) 44.3 % (42.8-82.8) 02/15/18 10:10 Band Neutrophils % 1.1 % 02/15/18 10:10 Lymphocytes % 68.7 % (8-40) H D 02/15/18 10:10 Lymphocytes % (Manual) 49.5 % (8-40) H 02/15/18 10:10 Monocytes % (Manual) 4 % (3.8-10.2) 02/15/18 10:10 Eosinophils % (Manual) 0.0 % (0-4.5) 02/15/18 10:10 Basophils % (Manual) 0.0 % (0-2.0) 02/15/18 10:10 Myelocytes % (Man) 0 % (0-2) 02/15/18 10:10 Promyelocytes % (Man) 0 % (0-2) 02/15/18 10:10 Blast Cells % (Manual) 0 % (0-0) 02/15/18 10:10 Nucleated RBC % 7 % (0-0) H 02/15/18 10:10 Metamyelocytes 0 % (0-2) 02/15/18 10:10 Hypochromia 2+ 02/15/18 10:10 Platelet Estimate Normal 02/15/18 10:10 Polychromasia 1+ 02/15/18 10:10 Poikilocytosis 3+ 02/15/18 10:10 Anisocytosis 2+ 02/15/18 10:10 Microcytosis 2+ 02/15/18 10:10 Macrocytosis 0 02/15/18 10:10 Target Cells 1+ 02/15/18 10:10 Tear Drop Cells 1+ 02/15/18 10:10 Acanthocytes (Spur) 1+ 02/15/18 10:10 Fragmented RBCs 1+ 02/15/18 10:10 Schistocytes 2+ 02/15/18 10:10 ESR > 140 mm/hr (0-30) H 02/15/18 10:10 Retic Count 3.47 % (0.5-1.5) H D 02/15/18 17:19 Sodium 144 mmol/L (136-145) 02/15/18 09:52 Potassium 4.0 mmol/L (3.5-5.1) 02/15/18 09:52 Chloride 110 mmol/L (98-107) H 02/15/18 09:52 Carbon Dioxide 26 mmol/L (21-32) 02/15/18 09:52 Anion Gap 9 MMOL/L (8-16) 02/15/18 09:52 BUN 15 mg/dL (7-18) 02/15/18 09:52 Creatinine 1.2 mg/dL (0.55-1.3) 02/15/18 09:52 Creat Clearance w eGFR 44.16 (>60) 02/15/18 09:52 Random Glucose 126 mg/dL (74-106) H 02/15/18 09:52 Lactic Acid 1.1 mmol/L (0.4-2.0) 02/15/18 10:10 Calcium 8.7 mg/dL (8.5-10.1) 02/15/18 09:52 Magnesium 2.1 mg/dL (1.8-2.4) 02/15/18 09:52 Ferritin 146.1 ng/ml (8-388) 02/15/18 09:52 Total Bilirubin 4.2 mg/dL (0.2-1) H 02/15/18 09:52 Direct Bilirubin 0.4 mg/dL (0.0-0.2) H 02/15/18 09:52 AST 14 U/L (15-37) L 02/15/18 09:52 ALT 11 U/L (13-61) L 02/15/18 09:52 Alkaline Phosphatase 66 U/L (45-117) 02/15/18 09:52 LD Total 263 U/L (84-246) H 02/15/18 09:52 Troponin I < 0.02 ng/ml (0.00-0.05) 02/15/18 09:52 B-Natriuretic Peptide 1360.6 pg/ml (5-125) H 02/15/18 09:52 Total Protein 6.2 g/dl (6.4-8.2) L 02/15/18 09:52 Albumin 3.4 g/dl (3.4-5.0) 02/15/18 09:52 Triglycerides 77 mg/dL (0-150) 02/15/18 09:52 Cholesterol 71 mg/dL (50-200) 02/15/18 09:52 Total LDL Cholesterol 40 mg/dL (5-100) 02/15/18 09:52 HDL Cholesterol 32 mg/dL (40-60) L 02/15/18 09:52 Lipase 102 U/L (73-393) 02/15/18 09:52 Vitamin B12 226 pg/ml (193-986) 02/15/18 09:52 Serum Folate 13 ng/mL (3.1-17.5) 02/15/18 09:52 TSH 1.51 uIU/ml (0.358-3.74) 02/15/18 09:52 Current Medications Generic Name Dose Route Start Last Admin Trade Name Eloise PRN Reason Stop Dose Admin Aspirin 81 mg 02/16/18 10:00 Asa - PO DAILY RYAN Piperacillin Sod/Tazobactam 50 mls @ 100 mls/hr 02/15/18 18:00 02/15/18 18:10 Sod 3.375 gm/ Dextrose IVPB 100 mls/hr Q8H-IV RYAN Administration Protocol Sodium Chloride 1,000 mls @ 100 mls/hr 02/15/18 20:45 Normal Saline - IV ASDIR RYAN Pantoprazole Sodium 20 mg 02/15/18 18:45 02/15/18 19:00 Protonix - PO 20 mg DAILY RYAN Administration Prednisone 50 mg 02/15/18 18:45 02/15/18 19:00 Deltasone - PO 50 mg DAILY RYAN Administration Constitutional: Yes: Anxious, Thin Eyes: Yes: Sclera Icterus HENT: Yes: Atraumatic Neck: Yes: Lymphadenopathy Cardiovascular: Yes: Regular Rate and Rhythm Respiratory: Yes: CTA Bilaterally Gastrointestinal Inspection: Yes: WNL ...Auscultate: Yes: Normoactive Bowel Sounds ...Palpate: Yes: Soft, Other (nontender inguinal adenoapthy) ...Rectal Exam: Yes: Guaiac Negative (mustard colored ad loose) Edema: No Peripheral Pulses WNL: Yes Neurological: Yes: Alert Psychiatric: Yes: Other (anxious) Labs: CBC, BMP 02/15/18 10:10 02/15/18 09:52 INR, PTT INR 1.34 (0.83-1.09) H 02/15/18 10:10 Laboratory Tests 02/15/18 02/15/18 02/15/18 09:52 10:10 10:10 WBC 1.9 L* Hgb 3.8 L* Hct 11.2 L MCV 61.6 L Plt Count 262 PT with INR 15.90 H INR 1.34 H Total Bilirubin 4.2 H AST 14 L ALT 11 L Alkaline Phosphatase 66 LD Total 263 H Laboratory Tests 02/15/18 17:19 Retic Count 3.47 H D Imaging - Results Cat Scan: Report Reviewed (Sofy Marsh Name: AYLEEN GILMORE DEPARTMENT OF RADIOLOGY Phys: Lo Johnson MD : 1945 Age: 72 Sex: F [facility] Acct: [id number] Loc: [address] Exam Date: 02/15/18 Status: [place] [address] Unit Number: [id number] EXAM#: TYPE/EXAM: RESULT: CT/ABDOMEN PELVIS CT W/O CONTR CT/CHEST CT WITHOUT CONTRAST Chest CT without contrast Clinical information: weight loss, jaundice Multiplanar imaging of the chest, abdomen and pelvis was performed. As requested intravenous contrast was not administered. Oral contrast was administered. Evaluation of the chest demonstrates no definite interval change comparison to a prior CT study of 11/26/2014. Stable mildly enlarged mediastinal and bilateral axillary lymph nodes. Stable enlarged lymph nodes are also seen along the internal mammary chains bilaterally, left more than right. No obvious hilar lymphadenopathy is identified on noncontrast imaging. Mild left lower lobe linear parenchymal scarring. 0.5 cm subpleural nodule within the left lower lobe medially. Calcified pleural-based nodule along the left lower chest laterally. 0.5 cm 0.2 cm stable nodules are seen within the right lower lobe laterally. The trachea and central bronchi appear unremarkable. Cardiomegaly which is probably mild. In comparison to an CT abdomen and pelvis CT study of 05/17/2014 note is made of interval development of a 0.3 cm calculus within the lower third of the common bile duct (transaxial image 114). The common bile duct appears to be unremarkable in diameter measuring approximately 0.5 cm. Cholelithiasis is again noted without CT evidence of acute inflammation. Mild right hydronephrosis is seen which appears slightly increased. Increased size of an obstructing staghorn calculus is noted within the right renal pelvis currently measuring approximately 2.4 x 2 x 2 cm. The remainder of the abdomen and pelvis demonstrates no obvious interval change. Multiple enlarged retroperitoneal, bilateral pelvic and bilateral inguinal lymph nodes are seen. The spleen appears borderline in overall size without interval change. The liver, pancreas, adrenal glands and left kidney demonstrate no obvious noncontrast pathology. There is no aortic aneurysm. No evidence of pneumoperitoneum or free intraperitoneal fluid. Colonic diverticulosis is noted without obvious evidence of acute diverticulitis. No gross small bowel pathology. 5 cm heavily calcified uterine leiomyoma. The visualized osseous structures the chest, abdomen and pelvis demonstrate no gross CT evidence of acute pathology or neoplastic disease. IMPRESSION: In comparison to a prior CT study of 05/17/2014 interval development of choledocholithiasis is noted. There is visualization of a 0.3 cm calculus within the lower third of the common bile duct. No obvious associated biliary tract dilatation is seen. As the prior study cholelithiasis is identified without CT evidence of acute cholecystitis. Mild right hydronephrosis is noted which appears slightly increased since the previous exam. An obstructing staghorn calculus is again noted within the right renal pelvis. The staghorn calculus appears increased in size. Urology consultation is suggested. Mediastinal, bilateral axillary, retroperitoneal , bilateral pelvic and bilateral inguinal lymphadenopathy is noted without obvious interval change in comparison to 2015 CT exams. Correlate with the results of ultrasound-guided left axillary lymph node biopsy performed on 2013. Stable borderline splenic size. Cardiomegaly which is probably mild. Correlate with echocardiography. Stable small bilateral lower lobe pulmonary nodules. Mild chronic left lower lobe linear parenchymal scarring. Reported By: Jose Thompson MD 02/15/18 1504 LO JOHNSON Technologist: Rich Ozuna Transcribed Date/Time: 02/15/18 1509 Flight Deck Officer: Jose Thompson Printed Date/Time: By: Signed by: Jose Thompson Signed on: 15-Feb-2018 15:07) Problem List - Problems (1) Choledocholithiasis Assessment/Plan: I await a direct bilirubin to determine how much of this jaundice is obstructive vs indirect due to hemolysis. Given her fever to 101 and the CBD stone on the CT scan however I will treat for cholangitis. I have discussed the need for an ERCP, sphincterotomy and either stone extraction or stent insertion with Ayleen and her daughter. I informed them of the risks of ascending cholangitis progressing to septic shock, biliary pancreatitis with multiorgan failure and liver failure leading to hepatic coma if we don't intervene. I informed them of the potential for such complications as perforation and hemorrhage leading to transfusions and surgery and of the potential for ERCP induced pancreatitis leading to pain and vomiting as well as kidney and lung failure. I also discussed the need to act upon this NIMA. Ayleen has refused the procedure. Her daughter has told me that she will try to convince her. Code(s): K80.50 - CALCULUS OF BILE DUCT W/O CHOLANGITIS OR CHOLECYST W/O OBST (2) Fever Code(s): R50.9 - FEVER, UNSPECIFIED (3) Chronic lymphocytic leukemia Code(s): C91.90 - LYMPHOID LEUKEMIA, UNSPECIFIED NOT HAVING ACHIEVED REMISSION (4) Hemolytic anemia Code(s): D58.9 - HEREDITARY HEMOLYTIC ANEMIA, UNSPECIFIED (5) Anxiety disorder Code(s): F41.9 - ANXIETY DISORDER, UNSPECIFIED (6) Nephrolithiasis Code(s): N20.0 - CALCULUS OF KIDNEY (7) Hydronephrosis Code(s): N13.30 - UNSPECIFIED HYDRONEPHROSIS (8) Anemia requiring transfusions Code(s): D64.9 - ANEMIA, UNSPECIFIED (9) Jaundice Code(s): R17 - UNSPECIFIED JAUNDICE Assessment/Plan Blood C/S then antibiotics Vitamin K Being transfused On steroids for LITTLE I await Ayleen's decision but am making preparations to proceed with ERCP Direct bilirubin pending. I discussed it with the chem lab
[2018-02-15 20:52] LABS: BILIRUBIN,DIRECT 0.4 mg/dL (0.0-0.2)
[2018-02-15] MEDS ORDERED: PHYTONADIONE 10 MG/1 ML AMP IVPB ONE (21:25)
--- NOTE | 2018-02-15 23:55 | CON.CARD ---
Consult Consult Specialty:: Cardiology - History of Present Illness History of Present Illness: The patient is a 72-year-old female, with a past medical history of HTN, CLL ( not on any treatment), thalassemia, anxiety, kidney stones, gallstones, who presents to the ED with facial swelling today. Daughter is at bedside and reports that her mother was complaining of nausea but no vomiting. Patient refused to go to the hospital. Daughter went to visit her mother before work and noted the facial swelling, which is worse under her eyes and the left-side of her face. She also reports that the patient appeared more yellow in color last week but today appears more pale. Patient was scheduled to have blood work drawn today at the hospital per Dr. Sabi Leyva orders. CLL that had so far no required therapy presents with painless jaundice noticed by her daughter. Tracy denies and abdominal pain, jaundice, pruritus , chills or fever but is very reserved in her responses. She was 101 in the ER. Tracy believes that her mother had nausea, anorexia,facila swelling, chills and notes a recent weight loss. Tracy lives with her . Giacomo the daughter informs me that her mother has been refractory to physician interventions and procedures chronically. I saw her in 2013 when a colon cancer screening was advised but she refused. She was close to have a procedure recently with Dr Wren for obstructing nephrolithiasis but refused at the last moment to proceed. Tracy denies any h/o liver disease, IVDA, transfusions and tattoos. She denies ever having had any surgery but in 2013 told me that she had a tonsillectomy and left axillary lymph node biopsy. PMH CRI HTN Hyperlipidemia Negative MIBI stress test June 2013 Nephroliyhiasis PAD 50-70 ICA stenosis 2012 - History Source History Provided By: Patient, Family Member, Medical Record - Past Medical History Cardio/Vascular: Yes: HTN Gastrointestinal: Yes: Diverticulosis (on CT scan) Hepatobiliary: Yes: Cholelithiasis Renal/: Yes: Renal Calculi Psych: Yes: Anxiety - Past Surgical History Past Surgical History: Yes: Tonsillectomy Additional Surgical History: left axillary lymph node biopsy - Alcohol/Substance Use Hx Alcohol Use: Yes (rare, on holidays) - Smoking History Smoking history: Never smoked Have you smoked in the past 12 months: No Aproximately how many cigarettes per day: 0 - Social History Usual Living Arrangement: With Spouse ADL: Independent 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 of Recent Travel: No Home Medications - Allergies Allergies/Adverse Reactions: Allergies Allergy/AdvReac Type Severity Reaction Status Date / Time No Known Drug Allergies Allergy Verified 02/15/18 08:23 - Home Medications Home Medications: Ambulatory Orders Aspirin [ASA -] 81 mg PO DAILY #0 tab.chew 08/26/12 Amlodipine Besylate [Norvasc -] 10 mg PO DAILY 09/01/13 Losartan Potassium 100 mg PO DAILY 02/15/18 Metoprolol Succinate 50 mg PO DAILY 02/15/18 Family Disease History - Family Disease History Family Disease History: Other: Father (in his 80's pneumonia), Mother ( age 93 of CVA hemorrhage) Review of Systems - Review of Systems Constitutional: reports: No Symptoms Eyes: reports: No Symptoms HENT: reports: No Symptoms Neck: reports: No Symptoms Cardiovascular: reports: No Symptoms Gastrointestinal: reports: No Symptoms Genitourinary: reports: No Symptoms Breasts: reports: No Symptoms Reported Musculoskeletal: reports: No Symptoms Integumentary: reports: No Symptoms Neurological: reports: No Symptoms Endocrine: reports: No Symptoms Hematology/Lymphatic: reports: No Symptoms Psychiatric: reports: No Symptoms Vital Signs: Vital Signs Temperature 99.2 F 02/15/18 19:02 Pulse Rate 74 02/15/18 19:02 Respiratory Rate 17 02/15/18 19:02 Blood Pressure 100/57 L 02/15/18 19:02 O2 Sat by Pulse Oximetry (%) 98 02/15/18 19:02 Constitutional: Yes: Well Nourished, No Distress, Calm Eyes: Yes: WNL, Conjunctiva Clear, EOM Intact HENT: Yes: WNL, Atraumatic, Normocephalic Neck: Yes: WNL, Supple, Trachea Midline Respiratory: Yes: WNL, Regular, CTA Bilaterally Renal/: Yes: WNL Cardiovascular: Yes: WNL, Regular Rate and Rhythm Musculoskeletal: Yes: WNL Extremities: Yes: WNL Integumentary: Yes: Jaundice Neurological: Yes: WNL, Alert, Oriented ...Motor Strength: WNL Psychiatric: Yes: WNL, Alert, Oriented - Other Data Labs, Other Data: CBC, BMP 02/15/18 10:10 02/15/18 09:52 INR, PTT INR 1.34 (0.83-1.09) H 02/15/18 10:10 Troponin, BNP 02/15/18 02/15/18 09:52 09:52 Troponin I < 0.02 B-Natriuretic Peptide 1360.6 H Troponin, BNP 02/15/18 02/15/18 09:52 09:52 Troponin I < 0.02 B-Natriuretic Peptide 1360.6 H Imaging - Results Chest X-ray: Image Reviewed (cm no i/e) EKG: Image Reviewed (sr apcs rep abn) Problem List - Problems (1) Anemia requiring transfusions Code(s): D64.9 - ANEMIA, UNSPECIFIED (2) Anxiety disorder Code(s): F41.9 - ANXIETY DISORDER, UNSPECIFIED (3) Choledocholithiasis Code(s): K80.50 - CALCULUS OF BILE DUCT W/O CHOLANGITIS OR CHOLECYST W/O OBST (4) Chronic lymphocytic leukemia Code(s): C91.90 - LYMPHOID LEUKEMIA, UNSPECIFIED NOT HAVING ACHIEVED REMISSION (5) Fever Code(s): R50.9 - FEVER, UNSPECIFIED (6) Hemolytic anemia Code(s): D58.9 - HEREDITARY HEMOLYTIC ANEMIA, UNSPECIFIED (7) Hydronephrosis Code(s): N13.30 - UNSPECIFIED HYDRONEPHROSIS (8) Jaundice Code(s): R17 - UNSPECIFIED JAUNDICE (9) Nephrolithiasis Code(s): N20.0 - CALCULUS OF KIDNEY (10) Scleral icterus Code(s): R17 - UNSPECIFIED JAUNDICE Assessment/Plan anemia hemolisis cholelithiasis htn Plan no cardiac contraindications to GI w/u cont present rx will check ECHO
[2018-02-16] MEDS ORDERED: PHYTONADIONE 10 MG/1 ML AMP ONE (02:19)
[2018-02-16] MEDS: SODIUM CHLORIDE 1,000 ML IV SCH ×2 (02:36→21:00)
[2018-02-16] MEDS ORDERED: PIPERACILLIN/TAZOB 3.375 GM 3.375 GM/50 ML BAG IVPB ONE (03:51)
[2018-02-16] MEDS: PIPERACILLIN/TAZOB 3.375 GM 3.375 GM in DEXTROSE 5%-WATER - 50 ML IVPB SCH ×3 (04:01→20:00)
[2018-02-16 05:53] VITALS: BMI 19.3
--- NOTE | 2018-02-16 07:34 | PN ---
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, Physician Chief Complaint: in bed NAD VSS afebrile over night no c/o; wants to go home no pain no SOB s/p 2 UPRBC facial edema improved less pale; still jaundiced - Current Medication List Current Medications: Active Medications Aspirin (Asa -) 81 mg PO DAILY [facility] Piperacillin Sod/Tazobactam (Sod 3.375 gm/ Dextrose) 50 mls @ 100 mls/hr IVPB Q8H-IV RYAN; Protocol Last Admin: 02/16/18 04:01 Dose: 100 mls/hr Sodium Chloride (Normal Saline -) 1,000 mls @ 100 mls/hr IV ASDIR RYAN Last Admin: 02/16/18 02:36 Dose: 100 mls/hr Pantoprazole Sodium (Protonix -) 20 mg PO DAILY [facility] Last Admin: 02/15/18 19:00 Dose: 20 mg Prednisone (Deltasone -) 50 mg PO DAILY [facility] Last Admin: 02/15/18 19:00 Dose: 50 mg - Objective Vital Signs: Vital Signs Temperature 98.8 F 02/16/18 06:00 Pulse Rate 70 02/16/18 06:00 Respiratory Rate 20 02/16/18 06:00 Blood Pressure 146/78 02/16/18 06:00 O2 Sat by Pulse Oximetry (%) 97 02/16/18 05:53 Constitutional: Yes: No Distress, Calm Eyes: Yes: Conjunctiva Clear HENT: Yes: Atraumatic Neck: Yes: Supple Cardiovascular: Yes: Regular Rate and Rhythm Respiratory: Yes: CTA Bilaterally Gastrointestinal: Yes: Soft. No: Distention Genitourinary: No: CVA Tenderness - Left, CVA Tenderness - Right Musculoskeletal: No: Joint Stiffness, Joint Swelling Extremities: No: Cold, Cool, Cyanosis Edema: No Integumentary: No: Rash, Venous Stasis Changes Neurological: Yes: WNL, Alert, Oriented ...Motor Strength: WNL Psychiatric: Yes: WNL, Alert, Oriented. No: Agitated, Suicidal Ideation Labs: INR, PTT INR 1.34 (0.83-1.09) H 02/15/18 10:10 - ....Imaging Other: Report Reviewed Assessment/Plan The patient is a 72-year-old female, with a past medical history of HTN, CLL ( not on any treatment), thalassemia, anxiety, kidney stones, gallstones, who presents to the ED with facial swelling today. Also noted to be pale and have some jaundice. labs and CT noted; consults reviewed and d/w pt and daughter Dayana in detail severely anemic Hg 3.8 neutropenic WBC 1.9; s/p 2U PRBC Hg 7; WBC 1.5 mostly lymphs neutropenia - neupogen? per heme onc; autoimmune hemolytic anemia? TBili 4 DBili 0.4 now TBili 6 DBili 0.6 had fever in ER, received broad spectrum ATB IV per ID; afebrile today, cultures negative so far 3 mm gallstone in CBD no biliary dilation; renal stones and mild hydronephrosis UA 4WBC on the telemetry floor IVF IV broad spectrum antibiotics per ID called; f/u cultures heme and GI close f/u; transfuse 1 U PRBC if ok with heme b/o hemolytic anemia; po prednisone per heme; gastric PFX close labs f/u check MRCP might need ERCP eval for renal stones cardio eval high BNP r/o CHF d/w pt and daughter Dayana (at bedside and / phone); daughter asked about HCP ; d/w pt and daughter that as long as pt is able to make decisions for herself, pt should be the one to sign informed consent; d/w pt that in case she is not able to make decisions, who would she want to be her HCP? pt is apparently still legally but does not live together with her , she lives with her daughter Dayana (and there are no other children); pt said she does not want to decide now, will think about it after the holiday; I emphasized again the seriousness of her condition and the possibility that she could get worse or - she said she understand but she does not want to talk about it at this point; suggested palliative care eval for next of kin and advanced directives when pt is willing to talk about it prognosis guarded - pt's condition d/w pt and daughter Dayana in detail they understand pt's condition and prognosis t time 45 min
[2018-02-16 07:54] LABS: INR 1.25 (0.83-1.09); PROTHROMBIN TIME (PATIENT) 14.8 SEC (9.7-13.0)
[2018-02-16 07:57] LABS: ACTIVATED PTT 25.2 SECONDS (25.2-36.5)
[2018-02-16 08:16] LABS: ALBUMIN 3.2 g/dl (3.4-5.0); ALK PHOS 64 U/L (45-117); ANION GAP 8 MMOL/L (8-16); BILIRUBIN,DIRECT 0.6 mg/dL (0.0-0.2); BLOOD UREA NITROGEN 19 mg/dL (7-18); CALCIUM 8.6 mg/dL (8.5-10.1); CHLORIDE 109 mmol/L (98-107); CO2 25 mmol/L (21-32); CREATININE 1.3 mg/dL (0.55-1.3); GLUCOSE,RANDOM 151 mg/dL (74-106); LDH 268 U/L (84-246); POTASSIUM 4.3 mmol/L (3.5-5.1); SGOT/AST 17 U/L (15-37); SGPT/ALT 14 U/L (13-61); SODIUM 142 mmol/L (136-145); TOT PROT 6.1 g/dl (6.4-8.2)
[2018-02-16 08:53] LABS: HEMATOCRIT 20.4 % (32.4-45.2); HEMOGLOBIN 7.2 GM/dL (10.7-15.3); MCH 25.5 pg (25.7-33.7); MCHC 35.2 g/dl (32.0-36.0); MEAN CELL VOLUME 72.6 fl (80-96); MEAN PLT VOLUME 9.1 fl (7.5-11.1); PLATELET COUNT 267 K/MM3 (134-434); RBC 2.82 M/mm3 (3.60-5.2)
[2018-02-16 09:21] LABS: WHITE BLOOD COUNT 1.5 K/mm3 (4.0-10.0)
[2018-02-16] MEDS ORDERED: PIPERACILLIN/TAZOBACTAM 3.375 GM VIAL IVPB ONE ×2 (09:29→19:54)
[2018-02-16] MEDS ORDERED: DEXTROSE 5%-WATER - 50 ML IVPB ONE (09:29)
[2018-02-16] MEDS ORDERED: metoPROLOL SUCCINATE 25 MG TAB.SR.24H (FP) PO SCH (10:00)
[2018-02-16] MEDS ORDERED: LOSARTAN POTASSIUM 25 MG TABLET PO SCH (10:00)
[2018-02-16] MEDS ORDERED: amLODIPine BESYLATE 2.5 MG TABLET (FP) PO SCH (10:00)
[2018-02-16] MEDS ORDERED: ASPIRIN 81 MG CHEWABLE TABLETS PO SCH (10:00)
[2018-02-16] MEDS: metoPROLOL SUCCINATE 25 MG TAB.SR.24H (FP) PO SCH (10:04)
[2018-02-16] MEDS: PANTOPRAZOLE 20 MG TABLET (FP) PO SCH (10:04)
[2018-02-16] MEDS: predniSONE 20 MG TABLET (UD) PO SCH (10:04)
[2018-02-16] MEDS ORDERED: CYANOCOBALAMIN (VITAMIN B-12) 1000 MCG/1 ML VIAL IM ONE ×2 (11:15→17:30)
--- NOTE | 2018-02-16 11:32 | PN ---
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, Physician History of Present Illness: The patient is a 72-year-old female, with a past medical history of HTN, CLL ( not on any treatment), thalassemia, anxiety, kidney stones, gallstones, who presents to the ED with facial swelling today. Daughter is at bedside and reports that her mother was complaining of nausea but no vomiting. Patient refused to go to the hospital. Daughter went to visit her mother before work and noted the facial swelling, which is worse under her eyes and the left-side of her face. She also reports that the patient appeared more yellow in color last week but today appears more pale. Patient was scheduled to have blood work drawn today at the hospital per Dr. Sabi Leyva orders. CLL that had so far no required therapy presents with painless jaundice noticed by her daughter. Tracy denies and abdominal pain, jaundice, pruritus , chills or fever but is very reserved in her responses. She was 101 in the ER. Tracy believes that her mother had nausea, anorexia,facila swelling, chills and notes a recent weight loss. Tracy lives with her . Giacomo the daughter informs me that her mother has been refractory to physician interventions and procedures chronically. I saw her in 2013 when a colon cancer screening was advised but she refused. She was close to have a procedure recently with Dr Wren for obstructing nephrolithiasis but refused at the last moment to proceed. Tracy denies any h/o liver disease, IVDA, transfusions and tattoos. She denies ever having had any surgery but in 2013 told me that she had a tonsillectomy and left axillary lymph node biopsy. PMH CRI HTN Hyperlipidemia Negative MIBI stress test June 2013 Nephroliyhiasis PAD 50-70 ICA stenosis 2012 - Current Medication List Current Medications: Active Medications Piperacillin Sod/Tazobactam (Sod 3.375 gm/ Dextrose) 50 mls @ 100 mls/hr IVPB Q8H-IV RYAN; Protocol Last Admin: 02/16/18 10:04 Dose: 100 mls/hr Sodium Chloride (Normal Saline -) 1,000 mls @ 100 mls/hr IV ASDIR RYAN Last Admin: 02/16/18 02:36 Dose: 100 mls/hr Metoprolol Succinate (Toprol Xl -) 25 mg PO DAILY RYAN Last Admin: 11/21/18 10:04 Dose: 25 mg Pantoprazole Sodium (Protonix -) 20 mg PO DAILY [facility] Last Admin: 02/16/18 10:04 Dose: 20 mg Prednisone (Deltasone -) 50 mg PO DAILY [facility] Last Admin: 02/16/18 10:04 Dose: 50 mg - Objective Vital Signs: Vital Signs Temperature 98.8 F 02/16/18 06:00 Pulse Rate 70 02/16/18 06:00 Respiratory Rate 20 02/16/18 06:00 Blood Pressure 146/78 02/16/18 06:00 O2 Sat by Pulse Oximetry (%) 97 02/16/18 05:53 Eyes: Yes: WNL, Conjunctiva Clear, EOM Intact HENT: Yes: WNL, Atraumatic, Normocephalic Neck: Yes: WNL, Supple, Trachea Midline Cardiovascular: Yes: WNL, Regular Rate and Rhythm Respiratory: Yes: WNL, Regular, CTA Bilaterally Gastrointestinal: Yes: WNL, Normal Bowel Sounds Genitourinary: Yes: WNL Musculoskeletal: Yes: WNL Extremities: Yes: WNL Edema: No Integumentary: Yes: WNL Neurological: Yes: WNL, Alert, Oriented ...Motor Strength: WNL Psychiatric: Yes: WNL Labs: CBC, BMP 02/16/18 06:30 02/16/18 06:30 INR, PTT INR 1.25 (0.83-1.09) H 02/16/18 06:30 Laboratory Tests 02/15/18 02/15/18 02/15/18 09:52 09:52 10:10 WBC 1.9 L* RBC 1.97 L Hgb 3.8 L* Hct 11.2 L MCV 61.6 L MCH 18.5 L MCHC 30.0 L RDW 21.7 H Plt Count 262 MPV 7.9 D Absolute Neuts (auto) Neutrophils % 26.9 L D Neutrophils % (Manual) 44.3 Band Neutrophils % 1.1 Lymphocytes % 68.7 H D Lymphocytes % (Manual) 49.5 H Monocytes % (Manual) 4 Eosinophils % (Manual) 0.0 Basophils % (Manual) 0.0 Myelocytes % (Man) 0 Promyelocytes % (Man) 0 Blast Cells % (Manual) 0 Nucleated RBC % 7 H Metamyelocytes 0 Hypochromia 2+ Platelet Estimate Normal Polychromasia 1+ Poikilocytosis 3+ Anisocytosis 2+ Microcytosis 2+ Macrocytosis 0 Target Cells 1+ Tear Drop Cells 1+ Acanthocytes (Spur) 1+ Fragmented RBCs 1+ Schistocytes 2+ ESR Retic Count PT with INR INR PTT (Actin FS) Sodium 144 Potassium 4.0 Chloride 110 H Carbon Dioxide 26 Anion Gap 9 BUN 15 Creatinine 1.2 Creat Clearance w eGFR 44.16 Random Glucose 126 H Lactic Acid Calcium 8.7 Magnesium 2.1 Ferritin 145.2 146.1 Total Bilirubin 4.2 H Direct Bilirubin 0.4 H AST 14 L ALT 11 L Alkaline Phosphatase 66 Ammonia LD Total 263 H Troponin I < 0.02 B-Natriuretic Peptide 1360.6 H Total Protein 6.2 L Albumin 3.4 Triglycerides 77 Cholesterol 71 Total LDL Cholesterol 40 HDL Cholesterol 32 L Lipase 102 Vitamin B12 226 Serum Folate 13 TSH 1.51 Urine Color Urine Appearance Urine pH Ur Specific [place] Urine Protein Urine Glucose (UA) Urine Ketones Urine Blood Urine Nitrite Urine Bilirubin Urine Urobilinogen Ur Leukocyte Esterase Urine WBC (Auto) Urine RBC (Auto) Ur Epithelial Cells Urine Bacteria Urine Mucus HIV 1&2 Antibody Screen HIV P24 Antigen Blood Type Antibody Screen Direct Antiglob Test Crossmatch 02/15/18 02/15/18 02/15/18 10:10 10:10 10:10 WBC RBC Hgb Hct MCV MCH MCHC RDW Plt Count MPV Absolute Neuts (auto) Neutrophils % Neutrophils % (Manual) Band Neutrophils % Lymphocytes % Lymphocytes % (Manual) Monocytes % (Manual) Eosinophils % (Manual) Basophils % (Manual) Myelocytes % (Man) Promyelocytes % (Man) Blast Cells % (Manual) Nucleated RBC % Metamyelocytes Hypochromia Platelet Estimate Polychromasia Poikilocytosis Anisocytosis Microcytosis Macrocytosis Target Cells Tear Drop Cells Acanthocytes (Spur) Fragmented RBCs Schistocytes ESR Retic Count PT with INR 15.90 H INR 1.34 H PTT (Actin FS) 25.4 Sodium Potassium Chloride Carbon Dioxide Anion Gap BUN Creatinine Creat Clearance w eGFR Random Glucose Lactic Acid 1.1 Calcium Magnesium Ferritin Total Bilirubin Direct Bilirubin AST ALT Alkaline Phosphatase Ammonia LD Total Troponin I B-Natriuretic Peptide Total Protein Albumin Triglycerides Cholesterol Total LDL Cholesterol HDL Cholesterol Lipase Vitamin B12 Serum Folate TSH Urine Color Urine Appearance Urine pH Ur Specific [place] Urine Protein Urine Glucose (UA) Urine Ketones Urine Blood Urine Nitrite Urine Bilirubin Urine Urobilinogen Ur Leukocyte Esterase Urine WBC (Auto) Urine RBC (Auto) Ur Epithelial Cells Urine Bacteria Urine Mucus HIV 1&2 Antibody Screen HIV P24 Antigen Blood Type O POSITIVE Antibody Screen Negative Direct Antiglob Test Negative Crossmatch See Detail 02/15/18 02/15/18 02/15/18 10:10 11:20 13:40 WBC RBC Hgb Hct MCV MCH MCHC RDW Plt Count MPV Absolute Neuts (auto) Neutrophils % Neutrophils % (Manual) Band Neutrophils % Lymphocytes % Lymphocytes % (Manual) Monocytes % (Manual) Eosinophils % (Manual) Basophils % (Manual) Myelocytes % (Man) Promyelocytes % (Man) Blast Cells % (Manual) Nucleated RBC % Metamyelocytes Hypochromia Platelet Estimate Polychromasia Poikilocytosis Anisocytosis Microcytosis Macrocytosis Target Cells Tear Drop Cells Acanthocytes (Spur) Fragmented RBCs Schistocytes ESR > 140 H Retic Count PT with INR INR PTT (Actin FS) Sodium Potassium Chloride Carbon Dioxide Anion Gap BUN Creatinine Creat Clearance w eGFR Random Glucose Lactic Acid Calcium Magnesium Ferritin Total Bilirubin Direct Bilirubin AST ALT Alkaline Phosphatase Ammonia LD Total Troponin I B-Natriuretic Peptide Total Protein Albumin Triglycerides Cholesterol Total LDL Cholesterol HDL Cholesterol Lipase Vitamin B12 Serum Folate TSH Urine Color Yellow Urine Appearance Clear Urine pH 5.0 Ur Specific [place] 1.010 Urine Protein Negative Urine Glucose (UA) Negative Urine Ketones Negative Urine Blood 2+ H Urine Nitrite Negative Urine Bilirubin Negative Urine Urobilinogen 2.0 H Ur Leukocyte Esterase 1+ H Urine WBC (Auto) 4 Urine RBC (Auto) 33 Ur Epithelial Cells Rare Urine Bacteria Few Urine Mucus Rare HIV 1&2 Antibody Screen HIV P24 Antigen Blood Type O POSITIVE Antibody Screen Direct Antiglob Test Crossmatch 02/15/18 02/16/18 02/16/18 17:19 06:30 06:30 WBC 1.5 L* RBC 2.82 L Hgb 7.2 L Hct 20.4 L D MCV 72.6 L MCH 25.5 L D MCHC 35.2 RDW 27.0 H Plt Count 267 MPV 9.1 D Absolute Neuts (auto) 0.5 L Neutrophils % No Result Required. Neutrophils % (Manual) Band Neutrophils % Lymphocytes % No Result Required. Lymphocytes % (Manual) Monocytes % (Manual) Eosinophils % (Manual) Basophils % (Manual) Myelocytes % (Man) Promyelocytes % (Man) Blast Cells % (Manual) Nucleated RBC % 1 H Metamyelocytes Hypochromia Platelet Estimate Polychromasia Poikilocytosis Anisocytosis Microcytosis Macrocytosis Target Cells Tear Drop Cells Acanthocytes (Spur) Fragmented RBCs Schistocytes ESR Retic Count 3.47 H D PT with INR INR PTT (Actin FS) Sodium 142 Potassium 4.3 Chloride 109 H Carbon Dioxide 25 Anion Gap 8 BUN 19 H Creatinine 1.3 Creat Clearance w eGFR 40.26 Random Glucose 151 H Lactic Acid Calcium 8.6 Magnesium Ferritin Total Bilirubin 6.0 H Direct Bilirubin 0.6 H AST 17 ALT 14 Alkaline Phosphatase 64 Ammonia LD Total 268 H Troponin I B-Natriuretic Peptide Total Protein 6.1 L Albumin 3.2 L Triglycerides Cholesterol Total LDL Cholesterol HDL Cholesterol Lipase Vitamin B12 Serum Folate TSH Urine Color Urine Appearance Urine pH Ur Specific [place] Urine Protein Urine Glucose (UA) Urine Ketones Urine Blood Urine Nitrite Urine Bilirubin Urine Urobilinogen Ur Leukocyte Esterase Urine WBC (Auto) Urine RBC (Auto) Ur Epithelial Cells Urine Bacteria Urine Mucus HIV 1&2 Antibody Screen HIV P24 Antigen Blood Type Antibody Screen Direct Antiglob Test Crossmatch 02/16/18 02/16/18 02/16/18 06:30 06:30 06:30 WBC RBC Hgb Hct MCV MCH MCHC RDW Plt Count MPV Absolute Neuts (auto) Neutrophils % Neutrophils % (Manual) Band Neutrophils % Lymphocytes % Lymphocytes % (Manual) Monocytes % (Manual) Eosinophils % (Manual) Basophils % (Manual) Myelocytes % (Man) Promyelocytes % (Man) Blast Cells % (Manual) Nucleated RBC % Metamyelocytes Hypochromia Platelet Estimate Polychromasia Poikilocytosis Anisocytosis Microcytosis Macrocytosis Target Cells Tear Drop Cells Acanthocytes (Spur) Fragmented RBCs Schistocytes ESR Retic Count 2.85 H D PT with INR 14.80 H INR 1.25 H PTT (Actin FS) 25.2 Sodium Potassium Chloride Carbon Dioxide Anion Gap BUN Creatinine Creat Clearance w eGFR Random Glucose Lactic Acid Calcium Magnesium Ferritin Total Bilirubin Direct Bilirubin AST ALT Alkaline Phosphatase Ammonia LD Total Troponin I B-Natriuretic Peptide Total Protein Albumin Triglycerides Cholesterol Total LDL Cholesterol HDL Cholesterol Lipase Vitamin B12 Serum Folate TSH Urine Color Urine Appearance Urine pH Ur Specific [place] Urine Protein Urine Glucose (UA) Urine Ketones Urine Blood Urine Nitrite Urine Bilirubin Urine Urobilinogen Ur Leukocyte Esterase Urine WBC (Auto) Urine RBC (Auto) Ur Epithelial Cells Urine Bacteria Urine Mucus HIV 1&2 Antibody Screen Negative HIV P24 Antigen Negative Blood Type Antibody Screen Direct Antiglob Test Crossmatch 02/16/18 02/16/18 06:30 06:30 WBC RBC Hgb Hct MCV MCH MCHC RDW Plt Count MPV Absolute Neuts (auto) Neutrophils % Neutrophils % (Manual) Band Neutrophils % Lymphocytes % Lymphocytes % (Manual) Monocytes % (Manual) Eosinophils % (Manual) Basophils % (Manual) Myelocytes % (Man) Promyelocytes % (Man) Blast Cells % (Manual) Nucleated RBC % Metamyelocytes Hypochromia Platelet Estimate Polychromasia Poikilocytosis Anisocytosis Microcytosis Macrocytosis Target Cells Tear Drop Cells Acanthocytes (Spur) Fragmented RBCs Schistocytes ESR Retic Count PT with INR INR PTT (Actin FS) Sodium Potassium Chloride Carbon Dioxide Anion Gap BUN Creatinine Creat Clearance w eGFR Random Glucose Lactic Acid Calcium Magnesium Ferritin Total Bilirubin Direct Bilirubin Cancelled AST ALT Alkaline Phosphatase Ammonia 19.00 LD Total Cancelled Troponin I B-Natriuretic Peptide Total Protein Albumin Triglycerides Cholesterol Total LDL Cholesterol HDL Cholesterol Lipase Vitamin B12 Serum Folate TSH Urine Color Urine Appearance Urine pH Ur Specific [place] Urine Protein Urine Glucose (UA) Urine Ketones Urine Blood Urine Nitrite Urine Bilirubin Urine Urobilinogen Ur Leukocyte Esterase Urine WBC (Auto) Urine RBC (Auto) Ur Epithelial Cells Urine Bacteria Urine Mucus HIV 1&2 Antibody Screen HIV P24 Antigen Blood Type Antibody Screen Direct Antiglob Test Crossmatch Problem List - Problems (1) Anemia requiring transfusions Code(s): D64.9 - ANEMIA, UNSPECIFIED (2) Anxiety disorder Code(s): F41.9 - ANXIETY DISORDER, UNSPECIFIED (3) Choledocholithiasis Code(s): K80.50 - CALCULUS OF BILE DUCT W/O CHOLANGITIS OR CHOLECYST W/O OBST (4) Chronic lymphocytic leukemia Code(s): C91.90 - LYMPHOID LEUKEMIA, UNSPECIFIED NOT HAVING ACHIEVED REMISSION (5) Fever Code(s): R50.9 - FEVER, UNSPECIFIED (6) Hemolytic anemia Code(s): D58.9 - HEREDITARY HEMOLYTIC ANEMIA, UNSPECIFIED (7) Hydronephrosis Code(s): N13.30 - UNSPECIFIED HYDRONEPHROSIS (8) Jaundice Code(s): R17 - UNSPECIFIED JAUNDICE (9) Nephrolithiasis Code(s): N20.0 - CALCULUS OF KIDNEY (10) Scleral icterus Code(s): R17 - UNSPECIFIED JAUNDICE Assessment/Plan anemia hemolisis cholelithiasis htn Plan no cardiac contraindications to GI w/u cont present rx will check ECHO
--- NOTE | 2018-02-16 12:40 | PN ---
GI 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 Subjective: GI NOte: Remains pain free but is more icteric. The hyperbilirubinemia is however indirect and therefore not due to CBD obstruction but instead reflects her hemolysis. I have ordered a stat MRCP and discussed the case with Dr. Valentin. Given her elevated INR despite Vitamin K and her ongoing hemolysis and leukopenia ERCP will be deferred until her condition is improved. If it needs to be done emergently over the holiday weekend Dr. Ga and I will do it together. - Objective Vital Signs: Vital Signs Temperature 98.8 F 02/16/18 06:00 Pulse Rate 70 02/16/18 06:00 Respiratory Rate 20 02/16/18 06:00 Blood Pressure 146/78 02/16/18 06:00 O2 Sat by Pulse Oximetry (%) 97 02/16/18 05:53 Laboratory Tests 02/16/18 02/16/18 02/16/18 06:30 06:30 06:30 WBC 1.5 L* Hgb 7.2 L Hct 20.4 L D Plt Count 267 PT with INR 14.80 H INR 1.25 H Total Bilirubin 6.0 H Direct Bilirubin 0.6 H AST 17 ALT 14 Alkaline Phosphatase 64 Ammonia 02/16/18 06:30 WBC Hgb Hct Plt Count PT with INR INR Total Bilirubin Direct Bilirubin AST ALT Alkaline Phosphatase Ammonia 19.00 Constitutional: Anxious Eyes: Yes: Sclera Icterus ...Auscultate: Yes: Normoactive Bowel Sounds ...Palpate: Yes: Soft, Other (nontender) Labs: CBC, BMP 02/16/18 06:30 02/16/18 06:30 INR, PTT INR 1.25 (0.83-1.09) H 02/16/18 06:30 Assessment/Plan Await MRCP ERCP deferred until more stable Continue antibiotics Problem List - Problems (1) Choledocholithiasis Assessment/Plan: This jaundice is due to hemolysis and not indicative of cholangitis. MRCP is pending to see whether she has passed her stone. If not I will proceed with ERCP when her clinical situation is optimized or emergently if cholangitis ensues. I have explained the situation to Tracy and her daughter Giacomo. Continue antibiotics. Code(s): K80.50 - CALCULUS OF BILE DUCT W/O CHOLANGITIS OR CHOLECYST W/O OBST (2) Fever Code(s): R50.9 - FEVER, UNSPECIFIED (3) Chronic lymphocytic leukemia Code(s): C91.90 - LYMPHOID LEUKEMIA, UNSPECIFIED NOT HAVING ACHIEVED REMISSION (4) Hemolytic anemia Code(s): D58.9 - HEREDITARY HEMOLYTIC ANEMIA, UNSPECIFIED (5) Anxiety disorder Code(s): F41.9 - ANXIETY DISORDER, UNSPECIFIED (6) Nephrolithiasis Code(s): N20.0 - CALCULUS OF KIDNEY (7) Hydronephrosis Code(s): N13.30 - UNSPECIFIED HYDRONEPHROSIS (8) Anemia requiring transfusions Code(s): D64.9 - ANEMIA, UNSPECIFIED (9) Jaundice Code(s): R17 - UNSPECIFIED JAUNDICE
[2018-02-16] MEDS: ALPRAZolam 0.25 MG TABLET PO PRN (13:05)
--- NOTE | 2018-02-16 13:32 | ECHO ---
Name: BARBMANNIEHannah AYLEEN Exam:Adult Echocardiogram Study Date: 02/16/2018 08:48 AM Age: 72 yrs Reason For Study: LV Function Height: 63 in Weight: 107 lb BSA: 1.5 m2 BP: 159/79 mmHg MMode/2D Measurements & Calculations IVSd: 0.90 cm Ao root diam: 2.5 cm LVIDd: 4.3 cm LVIDs: 2.5 cm LVPWd: 1.00 cm EDV(Teich): 83.7 ml LVOT diam: 2.0 cm ESV(Teich): 21.9 ml TAPSE: 2.3 cm Doppler Measurements & Calculations MV V2 max: 111.5 cm/sec MV E max jordon: 103.0 cm/sec MV max P.0 mmHg MV A max jordon: 95.6 cm/sec MV V2 mean: 80.2 cm/sec MV E/A: 1.1 MV mean P.0 mmHg MV V2 VTI: 24.6 cm MR max jordon: 614.5 cm/sec TR max jordon: 270.7 cm/sec MR max P.0 mmHg TR max P.4 mmHg Med Peak E' Jordon: 7.7 cm/sec Med E/e': 13.3 Lat Peak E' Jordon: 12.4 cm/sec Lat E/e': 8.3 Procedure A two-dimensional transthoracic echocardiogram with color flow and Doppler was performed. Left Ventricle The left ventricular size, thickness and function are normal. The left ventricular ejection fraction is normal. E/A reversal consistent with but not diagnostic of poor LV compliance. The left ventricular w all motion is normal. Right Ventricle The right ventricle is normal in size and function. Atria Normal left and right atrial size and function. Mitral Valve There is mild mitral valve thickening. There is no mitral valve stenosis. There is mild mitral regurg itation. Tricuspid Valve There is mild tricuspid valve thickening. There is no tricuspid stenosis. Right ventricular systolic pressure is elevated at 30-40mmHg. There is Trace to mild tricuspid regurgitation. Aortic Valve The aortic valve is not well visualized. No hemodynamically significant valvular aortic stenosis. No aortic regurgitation is present. Pulmonic Valve The pulmonic valve is not well visualized. Great Vessels The aortic root is normal size. Interpretation Summary The left ventricular size, thickness and function are normal The left ventricular ejection fraction is normal. The left ventricular wall motion is normal. E/A reversal consistent with but not diagnostic of poor LV compliance There is mild mitral regurgitation. There is Trace to mild tricuspid regurgitation. Right ventricular systolic pressure is elevated at 30-40mmHg. MD Aaron Wick 02/16/2018 01:32 PM
[2018-02-16 14:23] LABS: ANISOCYTOSIS 1+; MACROCYTOSIS 1+; OVALOCYTE 1+; TARGET CELLS 1+
--- NOTE | 2018-02-16 16:57 | PN ---
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, Physician History of Present Illness: Seated in bed Appears more comfortable Less pale/ icteric No complaints Temps down Still leukopenic - Current Medication List Current Medications: Active Medications Alprazolam (Xanax -) 0.25 mg PO Q8H PRN PRN Reason: ANXIETY Last Admin: 02/16/18 13:05 Dose: 0.25 mg Piperacillin Sod/Tazobactam (Sod 3.375 gm/ Dextrose) 50 mls @ 100 mls/hr IVPB Q8H-IV RYAN; Protocol Last Admin: 02/16/18 10:04 Dose: 100 mls/hr Sodium Chloride (Normal Saline -) 1,000 mls @ 100 mls/hr IV ASDIR RYAN Last Admin: 02/16/18 02:36 Dose: 100 mls/hr Metoprolol Succinate (Toprol Xl -) 25 mg PO DAILY [facility] Last Admin: 02/16/18 10:04 Dose: 25 mg Pantoprazole Sodium (Protonix -) 20 mg PO DAILY [facility] Last Admin: 02/16/18 10:04 Dose: 20 mg Prednisone (Deltasone -) 50 mg PO DAILY [facility] Last Admin: 02/16/18 10:04 Dose: 50 mg - Objective Vital Signs: Vital Signs Temperature 97.5 F L 02/16/18 14:00 Pulse Rate 64 02/16/18 14:00 Respiratory Rate 18 02/16/18 14:00 Blood Pressure 129/66 02/16/18 14:00 O2 Sat by Pulse Oximetry (%) 97 02/16/18 09:00 Constitutional: Yes: No Distress, Cachectic Eyes: Yes: Sclera Icterus Cardiovascular: Yes: Regular Rate and Rhythm, S1, S2 Respiratory: Yes: CTA Bilaterally Gastrointestinal: Yes: Normal Bowel Sounds, Soft Edema: No Integumentary: Yes: Jaundice Labs: CBC, BMP 02/16/18 06:30 02/16/18 06:30 INR, PTT INR 1.25 (0.83-1.09) H 02/16/18 06:30 Assessment/Plan Hemolytic anemia W/U in progress R/O biliary sepsis Leukopenia Await c/s Continue empric [email or web address]
[2018-02-16] MEDS ORDERED: PT OWN MED DRAWER 7, Y5N ONE (17:28)
--- NOTE | 2018-02-16 17:55 | PN ---
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 (short form) - Note 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: Patient seen and examined at bedside. Patient reports feeling better and offers no complaints Was taken to get an MRCP with results pending Seen and evaluated by GI today who recommend ERCP when more stable 3 units of PRBC's given, will give an additional unit Remains Neutropenic, etiology still unclear Vital Signs Temperature 97.5 F L 02/16/18 14:00 Pulse Rate 64 02/16/18 14:00 Respiratory Rate 18 02/16/18 14:00 Blood Pressure 129/66 02/16/18 14:00 O2 Sat by Pulse Oximetry (%) 97 02/16/18 09:00 PE GENERAL: Awake, alert, oriented x3, with less pallor today MOUTH: No oral thrush. moist mucous membranes HEART: RRR, 2/6 WINDY LUNGS: CTA B/L ABDOMEN: Soft, nontender, nondistended EXTREMITIES: No peripheral edema CBC, BMP 02/16/18 06:30 02/16/18 06:30 02/16/18 02/16/18 02/16/18 06:30 06:30 06:30 Absolute Neuts (auto) 0.5 L Monocytes % (Manual) 1 L Nucleated RBC % 6 H Retic Count INR 1.25 H Total Bilirubin 6.0 H Direct Bilirubin 0.6 H LD Total 268 H Total Protein 6.1 L Albumin 3.2 L 02/16/18 06:30 Absolute Neuts (auto) Monocytes % (Manual) Nucleated RBC % Retic Count 2.85 H D INR Total Bilirubin Direct Bilirubin LD Total Total Protein Albumin Patient is a 72 year old female with a PMHx of CLL (on no trestment) who presented for facial swelling, jaundice and blood work revealed profound anemia with Hgb 3.8, neutropenia with WBC of 1.9. Problem List: CLL HTN Neutropenia Possible Hemolytic Anemia Choledocolithiasis Hydronephrosis Lymphadenopathy Possible sepsis with febrile neutropenia PLAN: -The anemia is hypochromic microcytic, which may reflect iron deficiency although the patient does have thalassemia Iron studies pending and Serum Ferritin is 146. The low corrected retic count is 1.45 and mildly elevated LDH do not reflect a brisk hemolytic process. Despite the indirect hyperbilirubinemia. There may be a component of Gilbert disease, which can be exacerbated with infection. Typically, hemolytic anemia with CLL is kimberly positive and patient is kimberly negative. The Neutropenia is still unexplained but infection is still a consideration. Will continue Prednisone 50mg daily Will need to check to check G6PD Will need to check Uric acid. Flow cytometry will be ordered Bone marrow may be required
--- NOTE | 2018-02-16 18:07 | PN ---
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 (short form) - Note 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: Case discussed with Dr Huynh. Less likely hemolysis from CLL with Onofre negativity. Neutropenia remains unexplained . To hold off on neupogen for now May require marrow . To obtain flow cytometry. With indirect hyperbilirubinemia , to check on g-6 P d. ?? Gilbert's.
[2018-02-16] MEDS ORDERED: DEXTROSE 5%-WATER - 100 ML IVPB ONE (19:54)
[2018-02-17] MEDS ORDERED: HALOPERIDOL LACTATE 5 MG/ML IM ONE (00:11)
[2018-02-17] MEDS ORDERED: HALOPERIDOL LACTATE 5 MG/ML ONE (00:17)
[2018-02-17] MEDS ORDERED: LORazepam 2 MG/ML SDV VIAL IM ONE (00:18)
[2018-02-17] MEDS ORDERED: LORazepam 2 MG/ML SDV VIAL ONE (00:19)
--- NOTE | 2018-02-17 00:23 | RAPID ---
Physical Examination Vital Signs: Vital Signs Temperature 98.0 F 02/16/18 22:00 Pulse Rate 69 02/16/18 22:00 Respiratory Rate 20 02/16/18 22:00 Blood Pressure 121/70 02/16/18 22:00 O2 Sat by Pulse Oximetry (%) 98 02/16/18 21:00 Findings/Remarks: Called to evaluate patient in delirium, agitated, hallucinating, physically combative and pulling out her hair and IV lines. Unable to perform physical exam d/t agitation and combativeness. Ordered 2mg lorazepam IM and will reassess. Will f/u with 2mg haloperidol IM if needed. Labs: CBC, BMP 02/16/18 06:30 02/16/18 06:30
[2018-02-17] MEDS ORDERED: HALOPERIDOL LACTATE 5 MG/ML IM PRN ×2 (00:54→09:01)
--- NOTE | 2018-02-17 01:33 | HOSP ---
Subjective - Review of Symptoms Events since last encounter: Was paged to bedside by nurse to assess patient bruising. My physical exam is limited as the patient is continuing to be combative at this time. The patient has several bruises on her arms bilaterally in the antecubital area from previous attempts at IV access as well as from the patient recently pulling her IV out. There is an area of bruising on the left arm in the area of the bicep. This area is discolored and indurated. No tenderness to palpation. Per nursing staff , this lesion was present on admission. There is an abrasion on the patient's left knee. This lesion was also present on admission per nursing staff. There is a bruise on the patient's left shoulder which was sustained during attempts to sedate the patient. The patient was struggling with hospital staff at this time, which caused the bruising. The patient's left hand is swollen and discolored. This injury was likely sustained as the patient struggled against her restraints. The patient is moving the fingers of her hand spontaneously. There is no tenderness to palpation and the patient's strength is 5/5. Given the fact that there is no tenderness to palpation or neurological deficits and given the fact that the patient's injuries are minor, no further imaging or intervention is necessary. Physical Examination Vital Signs: Vital Signs Temperature 98.0 F 02/16/18 22:00 Pulse Rate 69 02/16/18 22:00 Respiratory Rate 20 02/16/18 22:00 Blood Pressure 121/70 02/16/18 22:00 O2 Sat by Pulse Oximetry (%) 98 02/16/18 21:00 Labs: CBC, BMP 02/16/18 06:30 02/16/18 06:30 Visit type - Emergency Visit Emergency Visit: Yes ED Registration Date: 02/15/18 Care time: The patient presented to the Emergency Department on the above date and was hospitalized for further evaluation of their emergent condition. - New Patient This patient is new to me today: Yes Date on this admission: 02/17/18 - Critical Care Critical Care patient: No
[2018-02-17] MEDS: PIPERACILLIN/TAZOB 3.375 GM 3.375 GM in DEXTROSE 5%-WATER - 50 ML IVPB SCH ×4 (02:46→21:00)
--- NOTE | 2018-02-17 06:49 | PN ---
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, Physician Chief Complaint: events noted; pt was very agitated last night fighting and throwing things at the hospital staff; security was called; hospitalist electronics utility worker assessed pt and administered haldol which helped; pt had vest on for restraints ; she has some arm bruises and L dorsal hand bruise this am xrays done no fracture; daughter Dayana was in over night she is aware of the above; this am pt is OOB in WC NAD in good spirits denies and pain anywhere no bleed no SOB did not hit her head - Current Medication List Current Medications: Active Medications Alprazolam (Xanax -) 0.25 mg PO Q8H PRN PRN Reason: ANXIETY Last Admin: 02/16/18 13:05 Dose: 0.25 mg Piperacillin Sod/Tazobactam (Sod 3.375 gm/ Dextrose) 50 mls @ 100 mls/hr IVPB Q8H-IV RYAN; Protocol Last Admin: 02/17/18 02:46 Dose: Not Given Sodium Chloride (Normal Saline -) 1,000 mls @ 100 mls/hr IV ASDIR RYAN Last Admin: 02/16/18 21:00 Dose: 100 mls/hr Metoprolol Succinate (Toprol Xl -) 25 mg PO DAILY RYAN Last Admin: 02/16/18 10:04 Dose: 25 mg Pantoprazole Sodium (Protonix -) 20 mg PO DAILY RYAN Last Admin: 02/16/18 10:04 Dose: 20 mg Prednisone (Deltasone -) 50 mg PO DAILY [facility] Last Admin: 02/16/18 10:04 Dose: 50 mg - Objective Vital Signs: Vital Signs Temperature 98.0 F 02/16/18 22:00 Pulse Rate 69 02/16/18 22:00 Respiratory Rate 20 02/16/18 22:00 Blood Pressure 121/70 02/16/18 22:00 O2 Sat by Pulse Oximetry (%) 98 02/16/18 21:00 Constitutional: Yes: No Distress, Calm Eyes: Yes: Conjunctiva Clear HENT: Yes: Atraumatic Neck: Yes: Supple Cardiovascular: Yes: Regular Rate and Rhythm Respiratory: Yes: CTA Bilaterally Gastrointestinal: Yes: Soft. No: Tenderness Genitourinary: No: CVA Tenderness - Left, CVA Tenderness - Right, Hematuria Musculoskeletal: No: Joint Stiffness, Joint Swelling Extremities: No: Cold, Cool, Cyanosis Edema: No Integumentary: Yes: Bruising (see above), Petechiae. No: Erythema, Pressure Ulcer, Rash, Skin Tear, Venous Stasis Changes Neurological: Yes: WNL, Alert, Oriented (knows her name; the place hospital but does not know who is the president) ...Motor Strength: WNL Psychiatric: Yes: WNL, Alert, Oriented (but some confusion present; pt knows her name, the place hospital; does not know the president). No: Agitated, Suicidal Ideation Labs: CBC, BMP 02/16/18 06:30 02/16/18 06:30 INR, PTT INR 1.25 (0.83-1.09) H 02/16/18 06:30 - ....Imaging Other: Report Reviewed Assessment/Plan The patient is a 72-year-old female, with a past medical history of HTN, CLL ( not on any treatment), thalassemia, anxiety, kidney stones, gallstones, who presents to the ED with facial swelling today. Also noted to be pale and have some jaundice. consults and events reviewed and d/w pt and daughter Dayana in detail severely anemic and neutropenic - kimberly negative; heme f/u fever on broad spectrum ATB IV per ID; cultures negative so far 3 mm gallstone in CBD no biliary dilation; GI f.u renal stones and mild hydronephrosis UA 4WBC close labs f/u MRCP noted, might need ERCP if she becomes obstructed eval for renal stones cardio f/u high BNP r/o CHF; echo noted d/w pt and daughter Dayana - advised to have pt sign for HCP when her mental status improves; psych also called for agitation; haldol prn prognosis guarded - pt's condition d/w pt and daughter Dayana in detail they understand pt's condition and prognosis t time 40 min
[2018-02-17 08:06] LABS: SERUM IRON SATURATION 14 % (15-55); TOTAL IRON BINDING CAPACITY 222 ug/dL (250-450); UIBC 190 ug/dL (118-369)
--- NOTE | 2018-02-17 08:18 | PN ---
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 (short form) - Note 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: Patient was seen and examined Events of last night noted Agitated and confused Ecchymoses left hand , abrasion LE Last Vital Signs Temp Pulse Resp BP Pulse Ox 98.0 F 69 20 121/70 98 02/16/18 22:00 02/16/18 22:00 02/16/18 22:00 02/16/18 22:00 02/16/18 21:00 HEENT: FELIBERTO, EOM Intact Oropharynx: No thrush, No mucositis,dry mucous membranes Neck: Supple Cor: RSR, No murmurs, No gallops Lungs: poor inspiratory effort Abd: Soft, Normal bowel sounds, No organomegaly Ext:No significant edema Skin: ecchymoses ,erythema left hand CBC, BMP 02/16/18 06:30 02/16/18 06:30 Labs pending Current Medications Generic Name Dose Route Start Last Admin Trade Name Freq PRN Reason Stop Dose Admin Alprazolam 0.25 mg 02/16/18 12:44 02/16/18 13:05 Xanax - PO 0.25 mg Q8H PRN Administration ANXIETY Piperacillin Sod/Tazobactam 50 mls @ 100 mls/hr 02/15/18 18:00 02/17/18 02:46 Sod 3.375 gm/ Dextrose IVPB Not Given Q8H-IV RYAN Protocol Sodium Chloride 1,000 mls @ 100 mls/hr 02/15/18 20:45 02/16/18 21:00 Normal Saline - IV 100 mls/hr ASDIR RYAN Administration Metoprolol Succinate 25 mg 02/16/18 10:00 02/16/18 10:04 Toprol Xl - PO 25 mg DAILY RYAN Administration Pantoprazole Sodium 20 mg 02/15/18 18:45 02/16/18 10:04 Protonix - PO 20 mg DAILY RYAN Administration Prednisone 50 mg 02/15/18 18:45 02/16/18 10:04 Deltasone - PO 50 mg DAILY RYAN Administration Microbiology 02/15/18 11:20 Urine - Urine Clean Catch Urine Culture - Final 02/15/18 10:10 Blood - Peripheral Venous Blood Culture - Preliminary NO GROWTH OBTAINED AFTER 24 HOURS, INCUBATION TO CONTINUE FOR 4 DAYS. 02/15/18 10:10 Blood - Peripheral Venous Blood Culture - Preliminary NO GROWTH OBTAINED AFTER 24 HOURS, INCUBATION TO CONTINUE FOR 4 DAYS. Impression: History of CLL Anemia -s/p transfusion - elevated indirect hyperbilirubinemia - ? Gilbert's , ? component of hemolysis, althoug low retic, borderline LDH , and Onofre negative Neutropenia- etiology unclear -Flow to be done, ? need for BM, ,?sepsis related although cultures to date-negative Agitation - for haldol prn check B-12, folate, TSH.
[2018-02-17] MEDS ORDERED: DEXTROSE 5%-WATER - 50 ML IVPB ONE ×2 (09:21→16:34)
[2018-02-17] MEDS ORDERED: PIPERACILLIN/TAZOBACTAM 3.375 GM VIAL IVPB ONE ×2 (09:21→16:33)
[2018-02-17] MEDS: PANTOPRAZOLE 20 MG TABLET (FP) PO SCH (09:27)
[2018-02-17] MEDS: predniSONE 20 MG TABLET (UD) PO SCH (09:27)
[2018-02-17] MEDS: metoPROLOL SUCCINATE 25 MG TAB.SR.24H (FP) PO SCH (09:28)
[2018-02-17 09:29] LABS: BASO % 2.9 % (0-2.0); EOS % 0.4 % (0-4.5); HEMATOCRIT 25.6 % (32.4-45.2); HEMOGLOBIN 8.5 GM/dL (10.7-15.3); MCH 25.4 pg (25.7-33.7); MCHC 33.4 g/dl (32.0-36.0); MEAN CELL VOLUME 76.3 fl (80-96); MEAN PLT VOLUME 8.2 fl (7.5-11.1); MONO % 4.2 % (3.8-10.2); NEUT % 54.5 % (42.8-82.8); PLATELET COUNT 223 K/MM3 (134-434); RBC 3.36 M/mm3 (3.60-5.2); RDW 24.6 % (11.6-15.6); WHITE BLOOD COUNT 2.6 K/mm3 (4.0-10.0)
[2018-02-17 10:09] LABS: ALBUMIN 3.2 g/dl (3.4-5.0); ALK PHOS 73 U/L (45-117); ANION GAP 11 MMOL/L (8-16); BILIRUBIN,TOTAL 3.9 mg/dL (0.2-1); BLOOD UREA NITROGEN 35 mg/dL (7-18); CALCIUM 8.2 mg/dL (8.5-10.1); CHLORIDE 111 mmol/L (98-107); CO2 22 mmol/L (21-32); CREATININE 1.9 mg/dL (0.55-1.3); GLUCOSE,RANDOM 137 mg/dL (74-106); POTASSIUM 3.7 mmol/L (3.5-5.1); SGOT/AST 29 U/L (15-37); SGPT/ALT 22 U/L (13-61); SODIUM 143 mmol/L (136-145); TOT PROT 5.9 g/dl (6.4-8.2)
--- NOTE | 2018-02-17 10:09 | PN ---
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, Physician Chief Complaint: Coverage for Dr. Wick Sitting comfortably, no acute distress - Current Medication List Current Medications: Active Medications Alprazolam (Xanax -) 0.25 mg PO Q8H PRN PRN Reason: ANXIETY Last Admin: 02/16/18 13:05 Dose: 0.25 mg Haloperidol (Haldol Injection (Fast Acting) -) 1 mg IM Q8H PRN PRN Reason: AGITATION Piperacillin Sod/Tazobactam (Sod 3.375 gm/ Dextrose) 50 mls @ 100 mls/hr IVPB Q8H-IV RYAN; Protocol Last Admin: 02/17/18 02:46 Dose: Not Given Sodium Chloride (Normal Saline -) 1,000 mls @ 100 mls/hr IV ASDIR RYAN Last Admin: 02/16/18 21:00 Dose: 100 mls/hr Metoprolol Succinate (Toprol Xl -) 25 mg PO DAILY [facility] Last Admin: 02/17/18 09:28 Dose: 25 mg Pantoprazole Sodium (Protonix -) 20 mg PO DAILY [facility] Last Admin: 02/17/18 09:27 Dose: 20 mg Prednisone (Deltasone -) 50 mg PO DAILY [facility] Last Admin: 02/17/18 09:27 Dose: 50 mg - Objective Vital Signs: Vital Signs Temperature 98.0 F 02/16/18 22:00 Pulse Rate 69 02/16/18 22:00 Respiratory Rate 20 02/16/18 22:00 Blood Pressure 121/70 02/16/18 22:00 O2 Sat by Pulse Oximetry (%) 98 02/16/18 21:00 Constitutional: Yes: No Distress, Calm Eyes: Yes: Conjunctiva Clear Cardiovascular: Yes: Regular Rate and Rhythm Respiratory: Yes: CTA Bilaterally Gastrointestinal: Yes: Soft Edema: No Labs: CBC, BMP 02/17/18 09:20 INR, PTT INR 1.25 (0.83-1.09) H 02/16/18 06:30 Laboratory Tests 02/17/18 02/17/18 09:20 09:20 WBC 2.6 L Hgb 8.5 L Plt Count 223 Sodium Pending Potassium Pending BUN Pending Creatinine Pending - ....Imaging EKG: Image Reviewed Assessment/Plan Assessment/Plan Anemia Hemolysis Cholelithiasis HTN REC: Remains hemodynamically stable. Heme work up in progress. Will follow
--- NOTE | 2018-02-17 11:39 | PN ---
GI 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 Subjective: GI Note: Became agitated last night. Sitting in hallway today. Denies pain. Less icteric. Wants to go home. I explained that the MRCP confirms a CBD stone but that it is not causing a complete obstruction. We will therefore allow her to stabilize further and allow for her INR to correct before undertaking the ERCP. Multiple ecchymoses noted. BC no growth so far. - Objective Vital Signs: Vital Signs Temperature 98.2 F 02/17/18 10:00 Pulse Rate 71 02/17/18 10:00 Respiratory Rate 18 02/17/18 10:00 Blood Pressure 119/65 02/17/18 10:00 O2 Sat by Pulse Oximetry (%) 98 02/16/18 21:00 Laboratory Tests 02/15/18 02/15/18 02/16/18 09:52 10:10 06:30 WBC 1.5 L* Hgb 7.2 L Plt Count PT with INR Iron 32 TIBC 222 L Iron Saturation 14 L Ferritin 146.1 Total Bilirubin Direct Bilirubin AST ALT Alkaline Phosphatase 02/16/18 02/16/18 02/17/18 06:30 06:30 09:20 WBC 2.6 L Hgb 8.5 L Plt Count 223 PT with INR 14.80 H Iron TIBC Iron Saturation Ferritin Total Bilirubin 6.0 H Direct Bilirubin 0.6 H AST 17 ALT 14 Alkaline Phosphatase 64 02/17/18 09:20 WBC Hgb Plt Count PT with INR Iron TIBC Iron Saturation Ferritin Total Bilirubin 3.9 H Direct Bilirubin AST 29 ALT 22 Alkaline Phosphatase 73 Constitutional: Anxious Eyes: Yes: Sclera Icterus ...Auscultate: Yes: Normoactive Bowel Sounds ...Palpate: Yes: Soft, Other (nontender) Labs: CBC, BMP 02/17/18 09:20 02/17/18 09:20 INR, PTT INR 1.25 (0.83-1.09) H 02/16/18 06:30 Assessment/Plan MRCP confirms CBD stone but is not obstructing and therefore can defer ERCP until more stable. Have scheduled for 02/21. Continue antibiotics Problem List - Problems (1) Choledocholithiasis Code(s): K80.50 - CALCULUS OF BILE DUCT W/O CHOLANGITIS OR CHOLECYST W/O OBST (2) Fever Code(s): R50.9 - FEVER, UNSPECIFIED (3) Chronic lymphocytic leukemia Code(s): C91.90 - LYMPHOID LEUKEMIA, UNSPECIFIED NOT HAVING ACHIEVED REMISSION (4) Hemolytic anemia Code(s): D58.9 - HEREDITARY HEMOLYTIC ANEMIA, UNSPECIFIED (5) Anxiety disorder Code(s): F41.9 - ANXIETY DISORDER, UNSPECIFIED (6) Nephrolithiasis Code(s): N20.0 - CALCULUS OF KIDNEY (7) Hydronephrosis Code(s): N13.30 - UNSPECIFIED HYDRONEPHROSIS (8) Anemia requiring transfusions Code(s): D64.9 - ANEMIA, UNSPECIFIED (9) Jaundice Code(s): R17 - UNSPECIFIED JAUNDICE
[2018-02-17] MEDS: DEXTROSE 5%-0.45% SALINE 1,000 ML IV SCH (14:43)
--- NOTE | 2018-02-17 22:57 | PN ---
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, Physician - Current Medication List Current Medications: Active Medications Alprazolam (Xanax -) 0.25 mg PO Q8H PRN PRN Reason: ANXIETY Last Admin: 02/16/18 13:05 Dose: 0.25 mg Haloperidol (Haldol Injection (Fast Acting) -) 1 mg IM Q8H PRN PRN Reason: AGITATION Piperacillin Sod/Tazobactam (Sod 3.375 gm/ Dextrose) 50 mls @ 100 mls/hr IVPB Q8H-IV RYAN; Protocol Last Admin: 02/17/18 18:35 Dose: Not Given Dextrose/Sodium Chloride (D5-1/2ns -) 1,000 mls @ 75 mls/hr IV ASDIR RYAN Last Admin: 02/17/18 14:43 Dose: 75 mls/hr Metoprolol Succinate (Toprol Xl -) 25 mg PO DAILY [facility] Last Admin: 02/17/18 09:28 Dose: 25 mg Pantoprazole Sodium (Protonix -) 20 mg PO DAILY [facility] Last Admin: 02/17/18 09:27 Dose: 20 mg Phytonadione (Mephyton -) 5 mg PO DAILY [facility] Stop: 02/21/18 10:01 Prednisone (Deltasone -) 50 mg PO DAILY [facility] Last Admin: 02/17/18 09:27 Dose: 50 mg - Objective Vital Signs: Vital Signs Temperature 98.1 F 02/17/18 18:00 Pulse Rate 75 02/17/18 18:00 Respiratory Rate 18 02/17/18 18:00 Blood Pressure 135/67 02/17/18 18:00 O2 Sat by Pulse Oximetry (%) 98 02/17/18 09:00 Labs: CBC, BMP 02/17/18 09:20 02/17/18 09:20 INR, PTT INR 1.25 (0.83-1.09) H 02/16/18 06:30
[2018-02-17] MEDS: ALPRAZolam 0.25 MG TABLET PO PRN (23:10)
[2018-02-18] MEDS ORDERED: PIPERACILLIN/TAZOBACTAM 3.375 GM VIAL IVPB ONE ×2 (01:08→13:06)
[2018-02-18] MEDS ORDERED: DEXTROSE 5%-WATER - 50 ML IVPB ONE ×2 (01:08→13:06)
[2018-02-18] MEDS: PIPERACILLIN/TAZOB 3.375 GM 3.375 GM in DEXTROSE 5%-WATER - 50 ML IVPB SCH ×3 (03:56→18:22)
--- NOTE | 2018-02-18 07:02 | PN ---
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, Physician History of Present Illness: Seated OOB in chair Less pale/ icteric No complaints Temps down Babesia smear, c/s negative - Current Medication List Current Medications: Active Medications Alprazolam (Xanax -) 0.25 mg PO Q8H PRN PRN Reason: ANXIETY Last Admin: 02/17/18 23:10 Dose: 0.25 mg Haloperidol (Haldol Injection (Fast Acting) -) 1 mg IM Q8H PRN PRN Reason: AGITATION Piperacillin Sod/Tazobactam (Sod 3.375 gm/ Dextrose) 50 mls @ 100 mls/hr IVPB Q8H-IV RYAN; Protocol Last Admin: 02/18/18 03:56 Dose: 100 mls/hr Dextrose/Sodium Chloride (D5-1/2ns -) 1,000 mls @ 75 mls/hr IV ASDIR RYAN Last Admin: 02/17/18 14:43 Dose: 75 mls/hr Metoprolol Succinate (Toprol Xl -) 25 mg PO DAILY [facility] Last Admin: 02/17/18 09:28 Dose: 25 mg Pantoprazole Sodium (Protonix -) 20 mg PO DAILY [facility] Last Admin: 02/17/18 09:27 Dose: 20 mg Phytonadione (Mephyton -) 5 mg PO DAILY [facility] Stop: 02/21/18 10:01 Prednisone (Deltasone -) 50 mg PO DAILY [facility] Last Admin: 02/17/18 09:27 Dose: 50 mg - Objective Vital Signs: Vital Signs Temperature 98.0 F 02/18/18 02:00 Pulse Rate 60 02/18/18 02:00 Respiratory Rate 18 02/18/18 02:00 Blood Pressure 129/67 02/18/18 02:00 O2 Sat by Pulse Oximetry (%) 100 02/17/18 21:00 Constitutional: Yes: No Distress, Cachectic Eyes: Yes: Sclera Icterus Cardiovascular: Yes: Regular Rate and Rhythm, S1, S2 Respiratory: Yes: CTA Bilaterally Gastrointestinal: Yes: Normal Bowel Sounds, Soft Integumentary: Yes: Other (+erythema, ecchymosis L hand , ext) Labs: CBC, BMP 02/17/18 09:20 02/17/18 09:20 INR, PTT INR 1.25 (0.83-1.09) H 11/21/18 06:30 Assessment/Plan Hemolytic anemia W/U in progress R/O biliary sepsis Leukopenia Continue empric [email or web address]
--- NOTE | 2018-02-18 08:29 | PN ---
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, Physician Chief Complaint: no cp or SOB - Current Medication List Current Medications: Active Medications Alprazolam (Xanax -) 0.25 mg PO Q8H PRN PRN Reason: ANXIETY Last Admin: 02/17/18 23:10 Dose: 0.25 mg Haloperidol (Haldol Injection (Fast Acting) -) 1 mg IM Q8H PRN PRN Reason: AGITATION Piperacillin Sod/Tazobactam (Sod 3.375 gm/ Dextrose) 50 mls @ 100 mls/hr IVPB Q8H-IV RYAN; Protocol Last Admin: 02/18/18 03:56 Dose: 100 mls/hr Dextrose/Sodium Chloride (D5-1/2ns -) 1,000 mls @ 75 mls/hr IV ASDIR RYAN Last Admin: 02/17/18 14:43 Dose: 75 mls/hr Metoprolol Succinate (Toprol Xl -) 25 mg PO DAILY [facility] Last Admin: 02/17/18 09:28 Dose: 25 mg Pantoprazole Sodium (Protonix -) 20 mg PO DAILY [facility] Last Admin: 02/17/18 09:27 Dose: 20 mg Phytonadione (Mephyton -) 5 mg PO DAILY [facility] Stop: 02/21/18 10:01 Prednisone (Deltasone -) 50 mg PO DAILY [facility] Last Admin: 02/17/18 09:27 Dose: 50 mg - Objective Vital Signs: Vital Signs Temperature 98.0 F 02/18/18 02:00 Pulse Rate 60 02/18/18 02:00 Respiratory Rate 18 02/18/18 02:00 Blood Pressure 129/67 02/18/18 02:00 O2 Sat by Pulse Oximetry (%) 100 02/17/18 21:00 Constitutional: Yes: Calm Cardiovascular: Yes: Regular Rate and Rhythm Respiratory: Yes: CTA Bilaterally Gastrointestinal: Yes: Soft Edema: No Neurological: Yes: Alert Labs: CBC, BMP 02/17/18 09:20 02/17/18 09:20 INR, PTT INR 1.25 (0.83-1.09) H 02/16/18 06:30 Assessment/Plan Assessment/Plan Anemia Hemolysis Cholelithiasis HTN Acute on chronic renal insufficiency REC: Remains hemodynamically stable. Heme work up in progress. D/C telemetry
--- NOTE | 2018-02-18 08:32 | PN ---
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, Physician Chief Complaint: had haldol prn and was less agitated daughter Anastasiia and at bedside; psych consult called; Anastasiia said spt was supposed to take seroquel as outpt (ordered by psych dr Valdez in the past) but she was not taking it, will order her and DC haldol - Current Medication List Current Medications: Active Medications Alprazolam (Xanax -) 0.25 mg PO Q8H PRN PRN Reason: ANXIETY Last Admin: 02/17/18 23:10 Dose: 0.25 mg Haloperidol (Haldol Injection (Fast Acting) -) 1 mg IM Q8H PRN PRN Reason: AGITATION Piperacillin Sod/Tazobactam (Sod 3.375 gm/ Dextrose) 50 mls @ 100 mls/hr IVPB Q8H-IV RYAN; Protocol Last Admin: 02/18/18 03:56 Dose: 100 mls/hr Dextrose/Sodium Chloride (D5-1/2ns -) 1,000 mls @ 75 mls/hr IV ASDIR RYAN Last Admin: 02/17/18 14:43 Dose: 75 mls/hr Metoprolol Succinate (Toprol Xl -) 25 mg PO DAILY [facility] Last Admin: 02/17/18 09:28 Dose: 25 mg Pantoprazole Sodium (Protonix -) 20 mg PO DAILY [facility] Last Admin: 02/17/18 09:27 Dose: 20 mg Phytonadione (Mephyton -) 5 mg PO DAILY [facility] Stop: 02/21/18 10:01 Prednisone (Deltasone -) 50 mg PO DAILY [facility] Last Admin: 02/17/18 09:27 Dose: 50 mg - Objective Vital Signs: Vital Signs Temperature 98.0 F 02/18/18 02:00 Pulse Rate 60 02/18/18 02:00 Respiratory Rate 18 02/18/18 02:00 Blood Pressure 129/67 02/18/18 02:00 O2 Sat by Pulse Oximetry (%) 100 02/17/18 21:00 Constitutional: Yes: No Distress, Calm Eyes: Yes: Conjunctiva Clear HENT: Yes: Atraumatic Neck: Yes: Supple Cardiovascular: Yes: Regular Rate and Rhythm Respiratory: Yes: CTA Bilaterally Gastrointestinal: Yes: Soft. No: Distention Genitourinary: No: CVA Tenderness - Left, CVA Tenderness - Right Musculoskeletal: No: Joint Stiffness, Joint Swelling Extremities: No: Cold, Cool, Cyanosis Edema: No Integumentary: No: Rash, Venous Stasis Changes Neurological: Yes: WNL, Alert, Oriented, Other (but has periods of confusion too ) ...Motor Strength: WNL Psychiatric: Yes: WNL, Alert, Oriented. No: Agitated, Suicidal Ideation Labs: CBC, BMP 02/17/18 09:20 02/17/18 09:20 INR, PTT INR 1.25 (0.83-1.09) H 02/16/18 06:30 Assessment/Plan The patient is a 72-year-old female, with a past medical history of HTN, CLL ( not on any treatment), thalassemia, anxiety, kidney stones, gallstones, admitted with facial swelling, pale and jaundiced. consults and events reviewed and d/w pt and daughter Anastasiia and at bedside in detail severely anemic and neutropenic - s/p PRBCs kimberly negative; heme f/u s/p fever on broad spectrum ATB IV per ID; cultures negative so far 3 mm gallstone in CBD no biliary dilation; GI f.u renal stones and mild hydronephrosis UA 4WBC close labs f/u MRCP noted, might need ERCP eval for renal stones cardio f/u high BNP r/o CHF; echo noted psych eval d/w pt and daughter Anastasiia and - if pt becomes confused and unable to sign consent her family ( and then daughter) will sign for her; d/w pt about HCP and advanced directives
[2018-02-18] MEDS ORDERED: PT OWN MED DRAWER 7, Y5N ONE (08:42)
[2018-02-18] MEDS: ALPRAZolam 0.25 MG TABLET PO PRN (08:59)
[2018-02-18 10:24] LABS: HEMATOCRIT 23.5 % (32.4-45.2); HEMOGLOBIN 8.3 GM/dL (10.7-15.3); MCH 27.1 pg (25.7-33.7); MCHC 35.4 g/dl (32.0-36.0); MEAN CELL VOLUME 76.4 fl (80-96); MEAN PLT VOLUME 8.9 fl (7.5-11.1); PLATELET COUNT 211 K/MM3 (134-434); RBC 3.07 M/mm3 (3.60-5.2); RDW 25.7 % (11.6-15.6)
[2018-02-18 10:35] LABS: WHITE BLOOD COUNT 1.6 K/mm3 (4.0-10.0)
--- NOTE | 2018-02-18 10:38 | PN ---
GI 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 Subjective: GO NOte: Refused initial blood draw so no labs available as yet. They have been subsequently drawn. She is still confused and not allowing an IV. She had - Objective Vital Signs: Vital Signs Temperature 98.0 F 02/18/18 02:00 Pulse Rate 60 02/18/18 02:00 Respiratory Rate 18 02/18/18 02:00 Blood Pressure 129/67 02/18/18 02:00 O2 Sat by Pulse Oximetry (%) 100 02/17/18 21:00 Laboratory Tests 02/16/18 02/17/18 02/18/18 06:30 09:20 10:00 WBC 1.5 L* 2.6 L 1.6 L* Hgb 7.2 L 8.5 L 8.3 L Plt Count 211 PT with INR Total Bilirubin 02/18/18 02/18/18 10:00 10:00 WBC Hgb Plt Count PT with INR Pending Total Bilirubin Pending Constitutional: Calm, Other (confused) Eyes: Yes: Sclera Icterus ...Auscultate: Yes: Normoactive Bowel Sounds ...Palpate: Yes: Soft, Other (nontender) Labs: INR, PTT INR 1.25 (0.83-1.09) H 02/16/18 06:30 Assessment/Plan Choledocholithiasis but not exhibiting cholangitis Hemorrhoidal bleeding likely due to constipation. Will start Miralax Worsening leukopenia, not clear whether anemia is hemolysis or bone marrow failure Problem List - Problems (1) Choledocholithiasis Code(s): K80.50 - CALCULUS OF BILE DUCT W/O CHOLANGITIS OR CHOLECYST W/O OBST (2) Fever Code(s): R50.9 - FEVER, UNSPECIFIED (3) Chronic lymphocytic leukemia Code(s): C91.90 - LYMPHOID LEUKEMIA, UNSPECIFIED NOT HAVING ACHIEVED REMISSION (4) Hemolytic anemia Code(s): D58.9 - HEREDITARY HEMOLYTIC ANEMIA, UNSPECIFIED (5) Anxiety disorder Code(s): F41.9 - ANXIETY DISORDER, UNSPECIFIED (6) Nephrolithiasis Code(s): N20.0 - CALCULUS OF KIDNEY (7) Hydronephrosis Code(s): N13.30 - UNSPECIFIED HYDRONEPHROSIS (8) Anemia requiring transfusions Code(s): D64.9 - ANEMIA, UNSPECIFIED (9) Jaundice Code(s): R17 - UNSPECIFIED JAUNDICE
[2018-02-18 10:45] LABS: INR 1.18 (0.83-1.09); PROTHROMBIN TIME (PATIENT) 13.9 SEC (9.7-13.0)
[2018-02-18] MEDS: predniSONE 20 MG TABLET (UD) PO SCH (11:03)
[2018-02-18] MEDS: PHYTONADIONE 5 MG TABLET PO SCH (11:03)
[2018-02-18] MEDS: PANTOPRAZOLE 20 MG TABLET (FP) PO SCH (11:04)
[2018-02-18] MEDS: metoPROLOL SUCCINATE 25 MG TAB.SR.24H (FP) PO SCH (11:05)
[2018-02-18 12:58] LABS: ALBUMIN 3.1 g/dl (3.4-5.0); ALK PHOS 67 U/L (45-117); ANION GAP 8 MMOL/L (8-16); BILIRUBIN,TOTAL 2.4 mg/dL (0.2-1); BLOOD UREA NITROGEN 38 mg/dL (7-18); CALCIUM 8.2 mg/dL (8.5-10.1); CHLORIDE 108 mmol/L (98-107); CO2 24 mmol/L (21-32); CREATININE 1.8 mg/dL (0.55-1.3); GLUCOSE,RANDOM 146 mg/dL (74-106); POTASSIUM 3.6 mmol/L (3.5-5.1); SGOT/AST 19 U/L (15-37); SGPT/ALT 19 U/L (13-61); SODIUM 140 mmol/L (136-145)
[2018-02-18] MEDS: DEXTROSE 5%-0.45% SALINE 1,000 ML IV SCH (13:11)
[2018-02-18 13:14] LABS: LDH 327 U/L (84-246)
--- NOTE | 2018-02-18 13:15 | PN ---
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 (short form) - Note 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: Patient seen and examined Alert , awake, coherent in attendance and spoke with daughter via phone to update Last Vital Signs Temp Pulse Resp BP Pulse Ox 98.0 F 60 18 129/67 100 02/18/18 02:00 02/18/18 02:00 02/18/18 02:00 02/18/18 02:00 02/17/18 21:00 HEENT: FELIBERTO, EOM Intact Oropharynx: No thrush, No mucositis Neck: Supple Cor: systolic murmurs, Lungs: Clear to P&A Abd: Soft, Normal bowel sounds, No organomegaly Ext:No significant edema Skin: No rashes, Integument intact CBC, BMP 02/18/18 10:00 02/18/18 10:00 Current Medications Generic Name Dose Route Start Last Admin Trade Name Freq PRN Reason Stop Dose Admin Alprazolam 0.25 mg 02/16/18 12:44 02/18/18 08:59 Xanax - PO 0.25 mg Q8H PRN Administration ANXIETY Haloperidol 1 mg 02/17/18 09:01 02/18/18 09:00 Haldol Injection (Fast Acting) - IM 1 mg Q8H PRN Administration AGITATION Piperacillin Sod/Tazobactam 50 mls @ 100 mls/hr 02/15/18 18:00 02/18/18 13:10 Sod 3.375 gm/ Dextrose IVPB 100 mls/hr Q8H-IV RYAN Administration Protocol Dextrose/Sodium Chloride 1,000 mls @ 75 mls/hr 02/17/18 12:00 02/18/18 13:11 D5-1/2ns - IV 75 mls/hr ASDIR RYNA Administration Metoprolol Succinate 25 mg 02/16/18 10:00 02/18/18 11:05 Toprol Xl - PO 25 mg DAILY RYAN Administration Pantoprazole Sodium 20 mg 02/15/18 18:45 02/18/18 11:04 Protonix - PO 20 mg DAILY RYAN Administration Phytonadione 5 mg 02/18/18 10:00 02/18/18 11:03 Mephyton - PO 02/21/18 10:01 5 mg DAILY RYAN Administration Polyethylene Glycol 17 gm 02/19/18 10:00 Miralax (For Daily Use) - PO DAILY [facility]YAN Prednisone 50 mg 02/15/18 18:45 02/18/18 11:03 Deltasone - PO 50 mg DAILY [facility]YAN Administration Impression: CLL Neutropenia Anemia Day 4 of steroids - little improvement in hemogram or WBC's Continuing on antibiotics Trend of antibiotics is down Plan Continue with steroids 1 more day Low normal haptoglobin, low normal LDH and low retic -against significant hemolysis Had episode of hemorrhoidal bleeding which should not explain the magnitude of anemia on admission. Will do flow cytometry Consent for bone marrow.
--- NOTE | 2018-02-18 13:45 | CONSULT ---
Consult Consult Specialty:: Nephrology ( Brendan/ Roger) Referred by:: Dr. Jordan Reason for Consultation:: Worsening kidney failure - History of Present Illness Chief Complaint: Worsening Hyperbilirubinemia and azotemia History of Present Illness: The patient is a 72-year-old female, with a past medical history of HTN, CLL ( not on any treatment), Thalassemia, anxiety, kidney stones, gallstones She presented to the ER with facial swelling today. Family noticed facial swelling and worsening yellowish discoloration. Reportedly with weight loss. The patient found to have Hemolytic anemia with Hyperbilirubinemia, and also a CBD stone, possibly with partial obstruction on MRCP. ERCP not done yet. The patient also has profound Leucopenia. Hematology/ Oncology f/u noted. - History Source History Provided By: Patient, Family Member - Past Medical History Cardio/Vascular: Yes: HTN Gastrointestinal: Yes: Diverticulosis (on CT scan) Hepatobiliary: Yes: Cholelithiasis Renal/: Yes: Renal Calculi. 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 of Recent Travel: No Home Medications - Allergies Allergies/Adverse Reactions: Allergies Allergy/AdvReac Type Severity Reaction Status Date / Time No Known Drug Allergies Allergy Verified 02/15/18 08:23 - Home Medications Home Medications: Ambulatory Orders Aspirin [ASA -] 81 mg PO DAILY #0 tab.chew 08/26/12 Amlodipine Besylate [Norvasc -] 10 mg PO DAILY 09/01/13 Losartan Potassium 100 mg PO DAILY 02/15/18 Metoprolol Succinate 50 mg PO DAILY 02/15/18 Family Disease History - Family Disease History Family Disease History: Other: Father (in his 80's pneumonia), Mother ( age 93 of CVA hemorrhage) Review of Systems - Review of Systems Constitutional: reports: Lethargy, Malaise, Unintentional Wgt. Loss HENT: reports: No Symptoms Neck: reports: Decreased ROM Cardiovascular: reports: Shortness of Breath. denies: Chest Pain Gastrointestinal: reports: Bloating, Melena (Patient had rectal bleeding), Rectal Bleeding Neurological: reports: Change in LOC, Confusion Physical Exam Vital Signs: Vital Signs Temperature 98.0 F 02/18/18 02:00 Pulse Rate 60 02/18/18 02:00 Respiratory Rate 18 02/18/18 02:00 Blood Pressure 129/67 02/18/18 02:00 O2 Sat by Pulse Oximetry (%) 100 02/17/18 21:00 Constitutional: Yes: Anxious, Other (deeply icteric) HENT: Yes: Atraumatic, Normocephalic Cardiovascular: Yes: Regular Rate and Rhythm, S1, S2 Respiratory: Yes: CTA Bilaterally Gastrointestinal: Yes: Normal Bowel Sounds, Soft Renal/: No: Bladder Distention, CVA Tenderness - Left, CVA Tenderness - Right Edema: LLE: Trace, RLE: Trace Neurological: Yes: Asterixis, Lethargy Labs: CBC, BMP 02/18/18 10:00 02/18/18 10:00 Assessment/Plan The patient is a 72-year-old female, with a past medical history of HTN, CLL, Thalassemia, anxiety, kidney stones, gallstones admitted with facial swelling, worsening icterus. The patient has multiple acute events occuring. Acute Kidney failure, seems related to Acute Hemodynamic changes. Obstructive jaundice, possibly from CBD stones. Hemolytic Anemia. GI Bleeding Severe Leucopenia. H/o Nephrolithiasis. Will not order detailed Renal w/u at this juncture. Will monitor the Renal functions. Will avoid use of any Nephrotoxins. Maintain euvolemia, and avoid dehydrations. Avoid hypokalemia. Will monitor the renal functions with you. Thank you. Sarah Cardona MD
[2018-02-18 17:30] LABS: ANISOCYTOSIS 2+; MACROCYTOSIS 0; PLATELET ESTIMATE NORMAL
[2018-02-18] MEDS: QUEtiapine FUMARATE 25 MG TABLET (FP) PO SCH (22:06)
[2018-02-19] MEDS ORDERED: DEXTROSE 5%-WATER - 50 ML IVPB ONE ×3 (01:07→18:54)
[2018-02-19] MEDS ORDERED: PIPERACILLIN/TAZOBACTAM 3.375 GM VIAL IVPB ONE ×3 (01:07→18:54)
[2018-02-19] MEDS: PIPERACILLIN/TAZOB 3.375 GM 3.375 GM in DEXTROSE 5%-WATER - 50 ML IVPB SCH ×3 (01:39→19:49)
--- NOTE | 2018-02-19 07:09 | PN ---
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, Physician Chief Complaint: on 8w was agitated again over night but calm now psych called consults and tests reviewed abdomen CT cw mesenteric and sq edema on IVF for ARF - f/u creatinine and seen by renal; IVF DCd - Current Medication List Current Medications: Active Medications Alprazolam (Xanax -) 0.25 mg PO Q8H PRN PRN Reason: ANXIETY Last Admin: 02/18/18 08:59 Dose: 0.25 mg Piperacillin Sod/Tazobactam (Sod 3.375 gm/ Dextrose) 50 mls @ 100 mls/hr IVPB Q8H-IV [facility]; Protocol Last Admin: 02/19/18 01:39 Dose: 100 mls/hr Metoprolol Succinate (Toprol Xl -) 25 mg PO DAILY [facility] Last Admin: 02/18/18 11:05 Dose: 25 mg Pantoprazole Sodium (Protonix -) 20 mg PO DAILY [facility] Last Admin: 02/18/18 11:04 Dose: 20 mg Phytonadione (Mephyton -) 5 mg PO DAILY [facility] Stop: 02/21/18 10:01 Last Admin: 02/18/18 11:03 Dose: 5 mg Polyethylene Glycol (Miralax (For Daily Use) -) 17 gm PO DAILY [facility] Prednisone (Deltasone -) 50 mg PO DAILY [facility] Last Admin: 02/18/18 11:03 Dose: 50 mg Quetiapine Fumarate (Seroquel -) 25 mg PO HS [facility] Last Admin: 02/18/18 22:06 Dose: Not Given - Objective Vital Signs: Vital Signs Temperature 97.9 F 02/18/18 23:09 Pulse Rate 67 02/18/18 23:09 Respiratory Rate 18 02/18/18 23:09 Blood Pressure 131/62 02/18/18 23:09 O2 Sat by Pulse Oximetry (%) 96 02/18/18 21:00 Constitutional: Yes: No Distress, Calm Eyes: Yes: Conjunctiva Clear HENT: Yes: Atraumatic Neck: Yes: Supple Cardiovascular: Yes: Regular Rate and Rhythm Respiratory: Yes: CTA Bilaterally Gastrointestinal: Yes: Soft. No: Distention Genitourinary: No: CVA Tenderness - Left, CVA Tenderness - Right, Hematuria Musculoskeletal: No: Joint Stiffness, Joint Swelling Extremities: No: Cold, Cool, Cyanosis Edema: No Integumentary: Yes: Bruising (L hand). No: Rash, Venous Stasis Changes Neurological: Yes: WNL, Alert, Oriented ...Motor Strength: WNL Psychiatric: Yes: WNL, Alert, Oriented. No: Agitated, Suicidal Ideation Labs: CBC, BMP 02/18/18 10:00 02/18/18 10:00 INR, PTT INR 1.18 (0.83-1.09) H 02/18/18 10:00 - ....Imaging Other: Report Reviewed Assessment/Plan The patient is a 72-year-old female, with a past medical history of HTN, CLL ( not on any treatment), thalassemia, anxiety, kidney stones, gallstones, admitted with facial swelling, pale and jaundiced. consults and events reviewed and d/w pt severely anemic and neutropenic - s/p PRBCs kimberly negative; heme f/u s/p fever on broad spectrum ATB IV per ID; cultures negative so far 3 mm gallstone in CBD no biliary dilation; GI f.u; MRCP noted, might need ERCP ARF/CRF renal stones and mild hydronephrosis UA 4WBC eval for renal stones close labs f/u cardio f/u high BNP r/o CHF; echo noted psych eval d/w pt and staff
--- NOTE | 2018-02-19 08:08 | PN ---
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, Physician Chief Complaint: denies abdominal pain , nausea, vomiting, states she is feeling well and wants to go home - Current Medication List Current Medications: Active Medications Alprazolam (Xanax -) 0.25 mg PO Q8H PRN PRN Reason: ANXIETY Last Admin: 02/18/18 08:59 Dose: 0.25 mg Piperacillin Sod/Tazobactam (Sod 3.375 gm/ Dextrose) 50 mls @ 100 mls/hr IVPB Q8H-IV [facility]AN; Protocol Last Admin: 02/19/18 01:39 Dose: 100 mls/hr Metoprolol Succinate (Toprol Xl -) 25 mg PO DAILY COUNTS INCLUDE 234 BEDS AT THE [facility] Last Admin: 02/18/18 11:05 Dose: 25 mg Pantoprazole Sodium (Protonix -) 20 mg PO DAILY COUNTS INCLUDE 234 BEDS AT THE [facility] Last Admin: 02/18/18 11:04 Dose: 20 mg Phytonadione (Mephyton -) 5 mg PO DAILY COUNTS INCLUDE 234 BEDS AT THE [facility] Stop: 02/21/18 10:01 Last Admin: 02/18/18 11:03 Dose: 5 mg Polyethylene Glycol (Miralax (For Daily Use) -) 17 gm PO DAILY [facility] Prednisone (Deltasone -) 50 mg PO DAILY COUNTS INCLUDE 234 BEDS AT THE [facility] Last Admin: 02/18/18 11:03 Dose: 50 mg Quetiapine Fumarate (Seroquel -) 25 mg PO HS COUNTS INCLUDE 234 BEDS AT THE [facility] Last Admin: 02/18/18 22:06 Dose: Not Given - Objective Vital Signs: Vital Signs Temperature 97.9 F 02/18/18 23:09 Pulse Rate 67 02/18/18 23:09 Respiratory Rate 18 02/18/18 23:09 Blood Pressure 131/62 02/18/18 23:09 O2 Sat by Pulse Oximetry (%) 96 02/18/18 21:00 Constitutional: Yes: Well Nourished, No Distress Eyes: Yes: WNL HENT: Yes: WNL Neck: Yes: WNL Cardiovascular: Yes: Regular Rate and Rhythm Respiratory: Yes: WNL Gastrointestinal: Yes: WNL, Normal Bowel Sounds Musculoskeletal: Yes: WNL Extremities: Yes: WNL Edema: No Labs: CBC, BMP 02/18/18 10:00 02/18/18 10:00 INR, PTT INR 1.18 (0.83-1.09) H 02/18/18 10:00 Problem List - Problems (1) Choledocholithiasis Assessment/Plan: Ct scan reviewed -- previously seen cbd stone is currently not visualized. There is question of a stone near the ampulla Bilirubin downtrending and ALT normal I doubt cholangitis. Diet as tolerated ; Trend LFt qd NPO midnight for ercp on Wednesday Code(s): K80.50 - CALCULUS OF BILE DUCT W/O CHOLANGITIS OR CHOLECYST W/O OBST (2) Chronic lymphocytic leukemia Code(s): C91.90 - LYMPHOID LEUKEMIA, UNSPECIFIED NOT HAVING ACHIEVED REMISSION (3) Jaundice Code(s): R17 - UNSPECIFIED JAUNDICE
--- NOTE | 2018-02-19 08:29 | PN ---
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 (short form) - Note 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: Renal follow up for EBER Vital Signs Temperature 97.9 F 02/18/18 23:09 Pulse Rate 67 02/18/18 23:09 Respiratory Rate 18 02/18/18 23:09 Blood Pressure 131/62 02/18/18 23:09 O2 Sat by Pulse Oximetry (%) 96 02/18/18 21:00 Intake & Output 02/16/18 02/17/18 02/18/18 02/19/18 23:59 23:59 23:59 23:59 Intake Total 0330 370 6947 Balance 2063 016 4866 Weight 49.442 kg 49.442 kg CBC, BMP 02/18/18 10:00 02/18/18 10:00 Current Medications Alprazolam (Xanax -) 0.25 mg PO Q8H PRN PRN Reason: ANXIETY Last Admin: 02/18/18 08:59 Dose: 0.25 mg Piperacillin Sod/Tazobactam (Sod 3.375 gm/ Dextrose) 50 mls @ 100 mls/hr IVPB Q8H-IV [facility]; Protocol Last Admin: 02/19/18 01:39 Dose: 100 mls/hr Metoprolol Succinate (Toprol Xl -) 25 mg PO DAILY [facility] Last Admin: 02/18/18 11:05 Dose: 25 mg Pantoprazole Sodium (Protonix -) 20 mg PO DAILY [facility] Last Admin: 02/18/18 11:04 Dose: 20 mg Phytonadione (Mephyton -) 5 mg PO DAILY [facility] Stop: 02/21/18 10:01 Last Admin: 02/18/18 11:03 Dose: 5 mg Polyethylene Glycol (Miralax (For Daily Use) -) 17 gm PO DAILY [facility] Prednisone (Deltasone -) 50 mg PO DAILY [facility] Last Admin: 02/18/18 11:03 Dose: 50 mg Quetiapine Fumarate (Seroquel -) 25 mg PO HS [facility] Last Admin: 02/18/18 22:06 Dose: Not Given 72-year-old female, with a past medical history of HTN, CLL,Thalassemia, anxiety , kidney stones, gallstones admitted with facial swelling, worsening icterus. #EBER secondary to unilateral obstruction with staghorn calculi #Facial Swelling w/o albuminuira #Anemia/CLL Todays labs are pending renal function slowly worsening as of yesterday check FeNa, UPCR CT and US show unilateral obstruction which could be responsible for EBER continue Abx for suspected UTI in setting of staghorn calculi will have urology called again, ? need for stent vs nephrostomy placement Trend H/H, Oncology follow up will hold off on IVF for now as pt appears evolemic and BP is stable Tr Duran DO
[2018-02-19] MEDS: POLYETHYLENE GLYCOL 3350 119 GM BTL PO SCH (09:00)
[2018-02-19] MEDS ORDERED: PT OWN MED DRAWER 7, Y5N ONE (09:02)
[2018-02-19] MEDS: predniSONE 20 MG TABLET (UD) PO SCH (09:03)
[2018-02-19] MEDS: PHYTONADIONE 5 MG TABLET PO SCH (09:04)
[2018-02-19] MEDS: metoPROLOL SUCCINATE 25 MG TAB.SR.24H (FP) PO SCH (09:04)
[2018-02-19] MEDS: PANTOPRAZOLE 20 MG TABLET (FP) PO SCH (09:04)
[2018-02-19] MEDS: ALPRAZolam 0.25 MG TABLET PO PRN ×2 (09:04→22:48)
[2018-02-19] MEDS: SODIUM CHLORIDE 1,000 ML IV SCH (10:28)
--- NOTE | 2018-02-19 11:09 | PN ---
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, Physician History of Present Illness: Supine in bed Less pale/ icteric No complaints Denies abdominal pain or urinary symptoms Afebrile Cultures negative CBC from today pending - Current Medication List Current Medications: Active Medications Alprazolam (Xanax -) 0.25 mg PO Q8H PRN PRN Reason: ANXIETY Last Admin: 02/19/18 09:04 Dose: 0.25 mg Piperacillin Sod/Tazobactam (Sod 3.375 gm/ Dextrose) 50 mls @ 100 mls/hr IVPB Q8H-IV [facility]; Protocol Last Admin: 02/19/18 10:29 Dose: 100 mls/hr Sodium Chloride (Normal Saline -) 1,000 mls @ 83 mls/hr IV ASDIR [facility] Last Admin: 02/19/18 10:28 Dose: 83 mls/hr Metoprolol Succinate (Toprol Xl -) 25 mg PO DAILY [facility] Last Admin: 02/19/18 09:04 Dose: 25 mg Pantoprazole Sodium (Protonix -) 20 mg PO DAILY [facility] Last Admin: 02/19/18 09:04 Dose: 20 mg Phytonadione (Mephyton -) 5 mg PO DAILY [facility] Stop: 02/21/18 10:01 Last Admin: 02/19/18 09:04 Dose: 5 mg Polyethylene Glycol (Miralax (For Daily Use) -) 17 gm PO DAILY [facility] Last Admin: 02/19/18 09:00 Dose: Not Given Prednisone (Deltasone -) 50 mg PO DAILY [facility] Last Admin: 02/19/18 09:03 Dose: 50 mg Quetiapine Fumarate (Seroquel -) 25 mg PO HS [facility] Last Admin: 02/18/18 22:06 Dose: Not Given - Objective Vital Signs: Vital Signs Temperature 97.9 F 02/18/18 23:09 Pulse Rate 67 02/18/18 23:09 Respiratory Rate 18 02/18/18 23:09 Blood Pressure 131/62 02/18/18 23:09 O2 Sat by Pulse Oximetry (%) 96 02/18/18 21:00 Constitutional: Yes: No Distress, Cachectic Cardiovascular: Yes: Regular Rate and Rhythm, S1, S2 Respiratory: Yes: CTA Bilaterally Gastrointestinal: Yes: Normal Bowel Sounds, Soft. No: Tenderness Edema: Yes Edema: LLE: 1+, RLE: 1+ Integumentary: Yes: Other (resolving ecchymosis L hand, bilateral UE) Labs: INR, PTT INR 1.18 (0.83-1.09) H 02/18/18 10:00 Assessment/Plan Hemolytic anemia on steroids W/U in progress R/O biliary sepsis Leukopenia Continue empric [email or web address] For ERCP, bone marrow
[2018-02-19 11:23] LABS: BASO % 0.8 % (0-2.0); EOS % 0.1 % (0-4.5); HEMATOCRIT 22.9 % (32.4-45.2); HEMOGLOBIN 7.3 GM/dL (10.7-15.3); LYMPH % 34.3 % (8-40); MCH 25.1 pg (25.7-33.7); MEAN CELL VOLUME 78.4 fl (80-96); MEAN PLT VOLUME 8.7 fl (7.5-11.1); MONO % 4.1 % (3.8-10.2); NEUT % 60.7 % (42.8-82.8); PLATELET COUNT 190 K/MM3 (134-434); RBC 2.92 M/mm3 (3.60-5.2); RDW 26.6 % (11.6-15.6); WHITE BLOOD COUNT 2.1 K/mm3 (4.0-10.0)
[2018-02-19 11:24] LABS: INR 1.11 (0.83-1.09); PROTHROMBIN TIME (PATIENT) 13.1 SEC (9.7-13.0)
[2018-02-19 11:36] LABS: ALBUMIN 2.8 g/dl (3.4-5.0); BILIRUBIN,DIRECT 0.4 mg/dL (0.0-0.2); BILIRUBIN,TOTAL 1.4 mg/dL (0.2-1); TOT PROT 5.6 g/dl (6.4-8.2)
[2018-02-19 11:44] LABS: ALK PHOS 58 U/L (45-117); ANION GAP 6 MMOL/L (8-16); BILIRUBIN,TOTAL 1.5 mg/dL (0.2-1); BLOOD UREA NITROGEN 34 mg/dL (7-18); CALCIUM 8.7 mg/dL (8.5-10.1); CHLORIDE 109 mmol/L (98-107); CO2 26 mmol/L (21-32); CREATININE 1.4 mg/dL (0.55-1.3); GLUCOSE,RANDOM 209 mg/dL (74-106); POTASSIUM 3.9 mmol/L (3.5-5.1); SGOT/AST 18 U/L (15-37); SGPT/ALT 25 U/L (13-61); SODIUM 141 mmol/L (136-145); TOT PROT 5.7 g/dl (6.4-8.2)
--- NOTE | 2018-02-19 12:17 | CON.GU ---
Consult Consult Specialty:: Urology Referred by:: Dr. Jordan Reason for Consultation:: Renal calculi - History of Present Illness Chief Complaint: Pt voiding well no flank pain - History Source History Provided By: Patient, Medical Record - Past Medical History Cardio/Vascular: Yes: HTN Gastrointestinal: Yes: Diverticulosis (on CT scan) Hepatobiliary: Yes: Cholelithiasis Renal/: Yes: Renal Calculi. 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 of Recent Travel: No Home Medications - Allergies Allergies/Adverse Reactions: Allergies Allergy/AdvReac Type Severity Reaction Status Date / Time No Known Drug Allergies Allergy Verified 02/15/18 08:23 - Home Medications Home Medications: Ambulatory Orders Aspirin [ASA -] 81 mg PO DAILY #0 tab.chew 08/26/12 Amlodipine Besylate [Norvasc -] 10 mg PO DAILY 09/01/13 Losartan Potassium 100 mg PO DAILY 02/15/18 Metoprolol Succinate 50 mg PO DAILY 02/15/18 Family Disease History - Family Disease History Family Disease History: Other: Father (in his 80's pneumonia), Mother ( age 93 of CVA hemorrhage) Physical Exam- Vital Signs: Vital Signs Temperature 97.9 F 02/18/18 23:09 Pulse Rate 67 02/18/18 23:09 Respiratory Rate 18 02/18/18 23:09 Blood Pressure 131/62 02/18/18 23:09 O2 Sat by Pulse Oximetry (%) 96 02/18/18 21:00 Labs: CBC, BMP 02/19/18 10:00 02/19/18 10:25 Imaging - Results Cat Scan: Report Reviewed Ultrasound: Report Reviewed Problem List - Problems (1) Nephrolithiasis Assessment/Plan: 72 yo female w right partial staghorn currently asymptomatic U cx negative Would require mult procedures to tx 2.4 x 2 cm stone. Would consider options of electively if clinically indicated Code(s): N20.0 - CALCULUS OF KIDNEY (2) Hydronephrosis Assessment/Plan: Right mild hydro likely chronic. kidney equal size b/l. cr now 1.4 would obtain renal scan w lasix if clinically indicated though likely anatomic and not functional obstruction Code(s): N13.30 - UNSPECIFIED HYDRONEPHROSIS
--- NOTE | 2018-02-19 13:16 | CON.PSY ---
Psychiatry Consult Chief Complaint: 72 year old female admitted with anemia, seen for Psych eval for acute agitation. Symptoms: reports: Impulsivity - Previous Psychiatric Treatment Outpatient: None Inpatient: None - Previous Substance Abuse Treatment Outpatient: None Inpatient: None - Reason for Previous Treatment Reason for Previous Treatment: Anxiety or Panic Disorder - Current Medications Current Medications: Active Medications Alprazolam (Xanax -) 0.25 mg PO Q8H PRN PRN Reason: ANXIETY Last Admin: 02/19/18 09:04 Dose: 0.25 mg Piperacillin Sod/Tazobactam (Sod 3.375 gm/ Dextrose) 50 mls @ 100 mls/hr IVPB Q8H-IV [facility]; Protocol Last Admin: 02/19/18 10:29 Dose: 100 mls/hr Sodium Chloride (Normal Saline -) 1,000 mls @ 83 mls/hr IV ASDIR [facility] Last Admin: 02/19/18 10:28 Dose: 83 mls/hr Metoprolol Succinate (Toprol Xl -) 25 mg PO DAILY [facility] Last Admin: 02/19/18 09:04 Dose: 25 mg Pantoprazole Sodium (Protonix -) 20 mg PO DAILY [facility] Last Admin: 02/19/18 09:04 Dose: 20 mg Phytonadione (Mephyton -) 5 mg PO DAILY [facility] Stop: 02/21/18 10:01 Last Admin: 02/19/18 09:04 Dose: 5 mg Polyethylene Glycol (Miralax (For Daily Use) -) 17 gm PO DAILY [facility] Last Admin: 02/19/18 09:00 Dose: Not Given Prednisone (Deltasone -) 50 mg PO DAILY [facility] Last Admin: 02/19/18 09:03 Dose: 50 mg Quetiapine Fumarate (Seroquel -) 25 mg PO HS [facility] Last Admin: 02/18/18 22:06 Dose: Not Given - Allergies Allergies: Allergies Allergy/AdvReac Type Severity Reaction Status Date / Time No Known Drug Allergies Allergy Verified 02/15/18 08:23 - Current Living Status Usual Living Arrangement: With Spouse - Current Mental Status Evaluation Attitude: Guarded - Affect Affect: Constrictive Appropriateness: Appropriate to Content - Mood Mood: Euthymic - Speech/Language Expressive: Coherent - Psychomotor Activity Psychomotor Activity: Slowed - Thought Process Thought Process: Intact - Thought Content Hallucinations: Absent Delusions: Absent - Self Perception Self Perception: No Impairment - Cognition Attention: Alert Orientation: Time Memory, Immediate Recall: Intact Memory, Short Term: 2/3 Memory, Remote with Promptin/3 - Concentration Serial Sevens Intact: No Simple Calculations Intact: Yes - Abstraction Proverb Interpretation: Intact Judgement: Minimally Impaired - Insight Insight: Intact - Homicidal Ideation Homicidal Ideation: No Assessment/Plan 1) Continue with Seroqul and Xanax prn. 2) discharge home when medically stable.
--- NOTE | 2018-02-19 15:29 | CONS ---
DATE OF CONSULTATION: 02/19/2018 REQUESTING PHYSICIAN: Sabi Jordan MD RESPONDING PHYSICIAN: Fermin Yates MD REASON FOR CONSULTATION: Cholelithiasis. HISTORY: This is a 72-year-old woman who has been hospitalized for several days now when she had initially presented with facial edema and jaundice. Laboratory data at that time had demonstrated hyperbilirubinemia with essentially normal liver chemistries. She was also found to be profoundly anemic and neutropenic. She did have a history of CLL which had not required treatment in the past. CT evaluation of the abdomen and pelvis which was initially completed on February 15, 2018, demonstrated cholelithiasis which had been present when compared to a prior CT scan of 2014. There was also the suggestion of a 3-mm distal CBD stone which was not reproduced on a more recent CT study of February 18, 2018. There were no intraabdominal inflammatory processes noted. There was no evidence to suggest cholecystitis on CT. Patient has been seen by a multitude of consultants, and the etiology of her profound anemia is still not clear. She remains with profound anemia and neutropenia which is being addressed by the hematology oncology service. Patient herself is not a very good historian. She states she was not aware that she had gallstones in the past. Nonetheless, she denies any abdominal pain at this time or prior to her presentation to the hospital. She has had no weight loss which she can quantify. PHYSICAL EXAMINATION: General: She is awake and alert, no acute distress. Gastrointestinal: The abdomen is soft, nontender, with no palpable findings. LABORATORY DATA: Demonstrating a white count of 1.5 with hemoglobin and hematocrit of 7.2 and 20.4, respectively. Review of her general profile reveals that her bilirubin has almost normalized and is 1.5. IMPRESSION: Cholelithiasis which had been present for several years. No symptoms as per patient or history. Questionable choledocholithiasis, but not reproduced on subsequent CT scan. It is possible the patient passed a small stone. No evidence of acute cholecystitis on physical examination or imaging studies. Benign clinical abdomen. Patient has multiple underlying medical issues which obviously need to be worked up and addressed. At this juncture I see no indication for cholecystectomy. Would suggest low fat diet. Reconsult after patient's neutropenia and anemia have been addressed and managed. Remain available. FERMIN YATES M.D. [id number] cc: Sabi Jordan MD
[2018-02-19 17:43] LABS: ANISOCYTOSIS 3+; MACROCYTOSIS 2+; OVALOCYTE 1+; PLATELET ESTIMATE ADEQUATE
[2018-02-19] MEDS ORDERED: predniSONE 20 MG TABLET (UD) PO SCH (20:00)
[2018-02-19] MEDS: QUEtiapine FUMARATE 25 MG TABLET (FP) PO SCH (21:10)
--- NOTE | 2018-02-20 00:06 | PN ---
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 (short form) - Note 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: PAtient seen and examined Feels better AFVSS Cor: RSR, No murmurs, No gallops Lungs: Clear to P&A Abd: Soft, Normal bowel sounds, No organomegaly Abnormal Lab Results 02/15/18 02/18/18 02/19/18 10:10 10:00 10:00 WBC 2.1 L RBC 2.92 L Hgb 7.3 L Hct 22.9 L MCV 78.4 L MCH 25.1 L RDW 26.6 H Absolute Neuts (auto) 1.3 L Monocytes % (Manual) 3 L D Nucleated RBC % 1 H Chloride Anion Gap BUN Creatinine Random Glucose Total Bilirubin Direct Bilirubin Total Protein Albumin U Random Total Protein Urine Creatinine Hepatitis A Ab Total Positive H Crossmatch See Detail 02/19/18 02/19/18 02/19/18 10:00 10:25 12:16 WBC RBC Hgb Hct MCV MCH RDW Absolute Neuts (auto) Monocytes % (Manual) Nucleated RBC % Chloride 109 H Anion Gap 6 L BUN 34 H Creatinine 1.4 H Random Glucose 209 H Total Bilirubin 1.4 H 1.5 H Direct Bilirubin 0.4 H Total Protein 5.6 L 5.7 L Albumin 2.8 L 3.0 L U Random Total Protein Urine Creatinine Hepatitis A Ab Total Crossmatch See Detail 02/19/18 02/19/18 15:50 15:50 WBC RBC Hgb Hct MCV MCH RDW Absolute Neuts (auto) Monocytes % (Manual) Nucleated RBC % Chloride Anion Gap BUN Creatinine Random Glucose Total Bilirubin Direct Bilirubin Total Protein Albumin U Random Total Protein 36 H Urine Creatinine 64.0 H Hepatitis A Ab Total Crossmatch Active Medications Generic Name Dose Route Start Last Admin Trade Name Freq PRN Reason Stop Dose Admin Alprazolam 0.25 mg 02/16/18 12:44 02/19/18 22:48 Xanax - PO 0.25 mg Q8H PRN Administration ANXIETY Piperacillin Sod/Tazobactam 50 mls @ 100 mls/hr 02/15/18 18:00 02/20/18 03:14 Sod 3.375 gm/ Dextrose IVPB 100 mls/hr Q8H-IV [facility] Administration Protocol Sodium Chloride 1,000 mls @ 83 mls/hr 02/19/18 09:30 02/19/18 10:28 Normal Saline - IV 83 mls/hr ASDIR RYAN Administration Metoprolol Succinate 25 mg 02/16/18 10:00 02/19/18 09:04 Toprol Xl - PO 25 mg DAILY [facility] Administration Pantoprazole Sodium 20 mg 02/15/18 18:45 02/19/18 09:04 Protonix - PO 20 mg DAILY [facility] Administration Phytonadione 5 mg 02/18/18 10:00 02/19/18 09:04 Mephyton - PO 02/21/18 10:01 5 mg DAILY [facility] Administration Polyethylene Glycol 17 gm 02/19/18 10:00 02/19/18 09:00 Miralax (For Daily Use) - PO Not Given DAILY [facility] Prednisone 40 mg 02/20/18 10:00 Deltasone - PO DAILY [facility] Quetiapine Fumarate 25 mg 02/18/18 22:00 02/19/18 21:10 Seroquel - PO 25 mg HS [facility] Administration A/P CLL Neutropenia Anemia --kimberly negative fever--? biliary--Continuing on antibiotics taper steroids anemia of chronic disease.CKD/infection. ? bleeding.neative kimberly. await flowcytometry leukopenia--? infection monitor
[2018-02-20] MEDS ORDERED: PIPERACILLIN/TAZOBACTAM 3.375 GM VIAL IVPB ONE ×3 (03:08→18:11)
[2018-02-20] MEDS ORDERED: DEXTROSE 5%-WATER - 50 ML IVPB ONE ×3 (03:08→18:11)
[2018-02-20] MEDS: PIPERACILLIN/TAZOB 3.375 GM 3.375 GM in DEXTROSE 5%-WATER - 50 ML IVPB SCH ×3 (03:14→18:17)
[2018-02-20 06:40] LABS: HBSAG SCREEN Negative (Negative); HEP A AB, IGM Negative (Negative); HEP B CORE AB, TOT Negative (Negative)
--- NOTE | 2018-02-20 06:44 | PN ---
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, Physician Chief Complaint: had diarrhea this am with some blood streaks in it; is on miralax will stop it ; on prednisone tapering doses and po protonix not on ASA NSaids heparin labs pending no pain no other c/o - Current Medication List Current Medications: Active Medications Alprazolam (Xanax -) 0.25 mg PO Q8H PRN PRN Reason: ANXIETY Last Admin: 02/19/18 22:48 Dose: 0.25 mg Piperacillin Sod/Tazobactam (Sod 3.375 gm/ Dextrose) 50 mls @ 100 mls/hr IVPB Q8H-IV [facility]; Protocol Last Admin: 02/20/18 03:14 Dose: 100 mls/hr Sodium Chloride (Normal Saline -) 1,000 mls @ 83 mls/hr IV ASDIR RYAN Last Admin: 02/19/18 10:28 Dose: 83 mls/hr Metoprolol Succinate (Toprol Xl -) 25 mg PO DAILY [facility] Last Admin: 02/19/18 09:04 Dose: 25 mg Pantoprazole Sodium (Protonix -) 20 mg PO DAILY [facility] Last Admin: 02/19/18 09:04 Dose: 20 mg Phytonadione (Mephyton -) 5 mg PO DAILY [facility] Stop: 02/21/18 10:01 Last Admin: 02/19/18 09:04 Dose: 5 mg Polyethylene Glycol (Miralax (For Daily Use) -) 17 gm PO DAILY [facility] Last Admin: 02/19/18 09:00 Dose: Not Given Prednisone (Deltasone -) 40 mg PO DAILY [facility] Quetiapine Fumarate (Seroquel -) 25 mg PO HS [facility] Last Admin: 02/19/18 21:10 Dose: 25 mg - Objective Vital Signs: Vital Signs Temperature 97.5 F L 02/20/18 02:45 Pulse Rate 55 L 02/20/18 02:45 Respiratory Rate 20 02/20/18 02:45 Blood Pressure 152/71 02/20/18 02:45 O2 Sat by Pulse Oximetry (%) 97 02/19/18 21:00 Constitutional: Yes: No Distress, Calm Eyes: Yes: Conjunctiva Clear HENT: Yes: Atraumatic Neck: Yes: Supple Cardiovascular: Yes: Regular Rate and Rhythm Respiratory: Yes: CTA Bilaterally Gastrointestinal: Yes: Soft. No: Distention Genitourinary: No: Hematuria Musculoskeletal: No: Joint Stiffness, Joint Swelling Extremities: No: Cold, Cool, Cyanosis Edema: No Integumentary: No: Rash, Venous Stasis Changes Neurological: Yes: WNL, Alert, Oriented ...Motor Strength: WNL Psychiatric: Yes: WNL, Alert, Oriented. No: Agitated, Suicidal Ideation Labs: CBC, BMP 02/19/18 10:00 02/19/18 10:25 INR, PTT INR 1.11 (0.83-1.09) H 02/19/18 10:00 - ....Imaging Other: Report Reviewed Assessment/Plan The patient is a 72-year-old female, with a past medical history of HTN, CLL ( not on any treatment), thalassemia, anxiety, kidney stones, gallstones, admitted with facial swelling, pale and jaundiced. consults and events reviewed and d/w pt severely anemic and neutropenic - s/p PRBCs kimberly negative; heme f/u s/p fever on broad spectrum ATB IV per ID; cultures negative so far 3 mm gallstone in CBD no biliary dilation; GI f.u; MRCP noted, might need ERCP; diarrhea; stop miralax, send stools ARF/CRF renal stones and mild hydronephrosis UA 4WBC eval for renal stones close labs f/u cardio f/u high BNP r/o CHF; echo noted psych f/u for agitation falls decubs DVT pfx d.w pot and staff; no sq heparin b/o severe anemia and blood streaks stool dw pt risks DVT PE - she is ambulatory d/w pt and staff
--- NOTE | 2018-02-20 09:00 | PN ---
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 (short form) - Note 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: Renal follow up for EBER Pt seen and examined at the bedside no acute complaints no sob, abd pain, cp, n/v/d making urine denies any flank pain refused labs this am as per nurse and pulled out IV Vital Signs Temperature 97.5 F L 02/20/18 02:45 Pulse Rate 55 L 02/20/18 02:45 Respiratory Rate 20 02/20/18 02:45 Blood Pressure 152/71 02/20/18 02:45 O2 Sat by Pulse Oximetry (%) 97 02/19/18 21:00 Intake & Output 02/17/18 02/18/18 02/19/18 02/20/18 23:59 23:59 23:59 23:59 Intake Total 350 1290 1150 1499 Output Total 300 Balance 350 8234 992 7942 Weight 49.442 kg NAD awake and alert neck supple No LE edema CBC, BMP 02/19/18 10:00 02/19/18 10:25 Current Medications Alprazolam (Xanax -) 0.25 mg PO Q8H PRN PRN Reason: ANXIETY Last Admin: 02/19/18 22:48 Dose: 0.25 mg Piperacillin Sod/Tazobactam (Sod 3.375 gm/ Dextrose) 50 mls @ 100 mls/hr IVPB Q8H-IV [facility]; Protocol Last Admin: 02/20/18 03:14 Dose: 100 mls/hr Sodium Chloride (Normal Saline -) 1,000 mls @ 83 mls/hr IV ASDIR RYAN Last Admin: 02/19/18 10:28 Dose: 83 mls/hr Metoprolol Succinate (Toprol Xl -) 25 mg PO DAILY [facility] Last Admin: 02/19/18 09:04 Dose: 25 mg Pantoprazole Sodium (Protonix -) 20 mg PO DAILY [facility] Last Admin: 02/19/18 09:04 Dose: 20 mg Phytonadione (Mephyton -) 5 mg PO DAILY [facility] Stop: 02/21/18 10:01 Last Admin: 02/19/18 09:04 Dose: 5 mg Polyethylene Glycol (Miralax (For Daily Use) -) 17 gm PO DAILY [facility] Last Admin: 02/19/18 09:00 Dose: Not Given Prednisone (Deltasone -) 40 mg PO DAILY [facility] Quetiapine Fumarate (Seroquel -) 25 mg PO HS [facility] Last Admin: 02/19/18 21:10 Dose: 25 mg 72-year-old female, with a past medical history of HTN, CLL,Thalassemia, anxiety , kidney stones, gallstones admitted with facial swelling, worsening icterus. #EBER secondary to unilateral obstruction with staghorn calculi #Facial Swelling w/o albuminuira #Anemia/CLL Renal function with mild improvement as of yesterdays, no labs from today available Will order NM renal scan with Lasix as per Gu recs Trend renal function and electrolytes would continue IVF if IV access can be established Trend H/H, check iron profile Tr Duran DO
--- NOTE | 2018-02-20 11:28 | PN ---
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, Physician Chief Complaint: No new complaints feeling better would like to go home - Current Medication List Current Medications: Active Medications Alprazolam (Xanax -) 0.25 mg PO Q8H PRN PRN Reason: ANXIETY Last Admin: 02/19/18 22:48 Dose: 0.25 mg Piperacillin Sod/Tazobactam (Sod 3.375 gm/ Dextrose) 50 mls @ 100 mls/hr IVPB Q8H-IV [facility]; Protocol Last Admin: 02/20/18 03:14 Dose: 100 mls/hr Sodium Chloride (Normal Saline -) 1,000 mls @ 83 mls/hr IV ASDIR RYAN Last Admin: 02/19/18 10:28 Dose: 83 mls/hr Metoprolol Succinate (Toprol Xl -) 25 mg PO DAILY [facility] Last Admin: 02/19/18 09:04 Dose: 25 mg Pantoprazole Sodium (Protonix -) 20 mg PO DAILY [facility] Last Admin: 02/19/18 09:04 Dose: 20 mg Phytonadione (Mephyton -) 5 mg PO DAILY [facility] Stop: 02/21/18 10:01 Last Admin: 02/19/18 09:04 Dose: 5 mg Polyethylene Glycol (Miralax (For Daily Use) -) 17 gm PO DAILY [facility] Last Admin: 02/19/18 09:00 Dose: Not Given Prednisone (Deltasone -) 40 mg PO DAILY [facility] Quetiapine Fumarate (Seroquel -) 25 mg PO HS [facility] Last Admin: 02/19/18 21:10 Dose: 25 mg - Objective Vital Signs: Vital Signs Temperature 97.5 F L 02/20/18 02:45 Pulse Rate 55 L 02/20/18 02:45 Respiratory Rate 20 02/20/18 02:45 Blood Pressure 152/71 02/20/18 02:45 O2 Sat by Pulse Oximetry (%) 97 02/19/18 21:00 Constitutional: Yes: Well Nourished, No Distress, Calm Eyes: Yes: WNL HENT: Yes: WNL Neck: Yes: WNL Cardiovascular: Yes: WNL, Regular Rate and Rhythm Respiratory: Yes: WNL, CTA Bilaterally Gastrointestinal: Yes: WNL, Normal Bowel Sounds Extremities: Yes: WNL Edema: No Labs: CBC, BMP 02/19/18 10:00 02/19/18 10:25 INR, PTT INR 1.11 (0.83-1.09) H 02/19/18 10:00 Problem List - Problems (1) Choledocholithiasis Assessment/Plan: Ct scan reviewed -- previously seen cbd stone is currently not visualized. There is question of a stone near the ampulla Bilirubin downtrending and ALT normal Diet as tolerated Trend LFt qd NPO midnight for ercp on Wednesday - Dr. Macias to resume care on Wednesday Code(s): K80.50 - CALCULUS OF BILE DUCT W/O CHOLANGITIS OR CHOLECYST W/O OBST (2) Chronic lymphocytic leukemia Code(s): C91.90 - LYMPHOID LEUKEMIA, UNSPECIFIED NOT HAVING ACHIEVED REMISSION (3) Jaundice Code(s): R17 - UNSPECIFIED JAUNDICE
[2018-02-20 12:10] LABS: HEMATOCRIT 30.6 % (32.4-45.2); HEMOGLOBIN 10.8 GM/dL (10.7-15.3); MCH 28.3 pg (25.7-33.7); MCHC 35.4 g/dl (32.0-36.0); MEAN CELL VOLUME 80.1 fl (80-96); MEAN PLT VOLUME 9.8 fl (7.5-11.1); PLATELET COUNT 193 K/MM3 (134-434); RBC 3.82 M/mm3 (3.60-5.2); RDW 22.4 % (11.6-15.6); WHITE BLOOD COUNT 2.8 K/mm3 (4.0-10.0)
[2018-02-20] MEDS: PANTOPRAZOLE 20 MG TABLET (FP) PO SCH (12:33)
[2018-02-20] MEDS: ALPRAZolam 0.25 MG TABLET PO PRN (12:33)
[2018-02-20] MEDS: predniSONE 20 MG TABLET (UD) PO SCH (12:33)
[2018-02-20] MEDS: metoPROLOL SUCCINATE 25 MG TAB.SR.24H (FP) PO SCH (12:33)
[2018-02-20] MEDS ORDERED: PT OWN MED DRAWER 7, Y5N ONE (12:36)
[2018-02-20] MEDS: PHYTONADIONE 5 MG TABLET PO SCH (12:38)
[2018-02-20 12:39] LABS: ALK PHOS 72 U/L (45-117); ANION GAP 6 MMOL/L (8-16); BILIRUBIN,DIRECT 0.4 mg/dL (0.0-0.2); BILIRUBIN,TOTAL 2.5 mg/dL (0.2-1); BLOOD UREA NITROGEN 35 mg/dL (7-18); CALCIUM 8.3 mg/dL (8.5-10.1); CHLORIDE 111 mmol/L (98-107); CO2 25 mmol/L (21-32); CREATININE 1.5 mg/dL (0.55-1.3); GLUCOSE,RANDOM 137 mg/dL (74-106); INR 1.03 (0.83-1.09); MAGNESIUM 2.1 mg/dL (1.8-2.4); PHOSPHOROUS 2.1 mg/dL (2.5-4.9); POTASSIUM 4.2 mmol/L (3.5-5.1); PROTHROMBIN TIME (PATIENT) 12.2 SEC (9.7-13.0); SGOT/AST 34 U/L (15-37); SGPT/ALT 51 U/L (13-61); SODIUM 142 mmol/L (136-145); TOT PROT 5.7 g/dl (6.4-8.2)
[2018-02-20] MEDS: POLYETHYLENE GLYCOL 3350 119 GM BTL PO SCH (12:41)
[2018-02-20 15:30] LABS: ACANTHOCYTES 1+; ANISOCYTOSIS 2+; MACROCYTOSIS 0; OVALOCYTE 1+; PLATELET ESTIMATE NORMAL; TARGET CELLS 1+; TEAR DROP CELLS 1+
--- NOTE | 2018-02-20 17:25 | CONSULT ---
Consult - text type - Consultation Consultation Note: pt w no pain currently cr 1.5 Urine clear Will discuss plan for tx partial staghorn currently asymptomatic
[2018-02-20] MEDS: QUEtiapine FUMARATE 25 MG TABLET (FP) PO SCH (21:07)
[2018-02-21] MEDS ORDERED: PIPERACILLIN/TAZOBACTAM 3.375 GM VIAL IVPB ONE ×3 (03:57→17:47)
[2018-02-21] MEDS ORDERED: DEXTROSE 5%-WATER - 50 ML IVPB ONE ×3 (03:57→17:47)
[2018-02-21] MEDS: PIPERACILLIN/TAZOB 3.375 GM 3.375 GM in DEXTROSE 5%-WATER - 50 ML IVPB SCH ×3 (04:02→17:51)
[2018-02-21] MEDS: ALPRAZolam 0.25 MG TABLET PO PRN (04:05)
[2018-02-21 05:27] LABS: BASO % 0.5 % (0-2.0); EOS % 0.2 % (0-4.5); HEMATOCRIT 28.2 % (32.4-45.2); HEMOGLOBIN 9.3 GM/dL (10.7-15.3); LYMPH % 61.7 % (8-40); MCH 27.1 pg (25.7-33.7); MCHC 33.1 g/dl (32.0-36.0); MEAN PLT VOLUME 8.2 fl (7.5-11.1); MONO % 1.3 % (3.8-10.2); NEUT % 36.3 % (42.8-82.8); PLATELET COUNT 107 K/MM3 (134-434); RBC 3.44 M/mm3 (3.60-5.2); RDW 22.3 % (11.6-15.6)
[2018-02-21 05:39] LABS: WHITE BLOOD COUNT 1.9 K/mm3 (4.0-10.0)
[2018-02-21 05:41] LABS: INR 1.14 (0.83-1.09); PROTHROMBIN TIME (PATIENT) 13.5 SEC (9.7-13.0)
[2018-02-21 05:51] LABS: ALBUMIN 2.6 g/dl (3.4-5.0); ALK PHOS 66 U/L (45-117); ANION GAP 5 MMOL/L (8-16); BILIRUBIN,DIRECT 0.4 mg/dL (0.0-0.2); BILIRUBIN,TOTAL 1.3 mg/dL (0.2-1); BLOOD UREA NITROGEN 37 mg/dL (7-18); CALCIUM 8.3 mg/dL (8.5-10.1); CHLORIDE 108 mmol/L (98-107); CO2 28 mmol/L (21-32); CREATININE 1.4 mg/dL (0.55-1.3); GLUCOSE,RANDOM 150 mg/dL (74-106); PHOSPHOROUS 2.2 mg/dL (2.5-4.9); POTASSIUM 4.5 mmol/L (3.5-5.1); SGOT/AST 26 U/L (15-37); SGPT/ALT 46 U/L (13-61); SODIUM 141 mmol/L (136-145); TOT PROT 5.1 g/dl (6.4-8.2)
--- NOTE | 2018-02-21 06:33 | PN ---
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, Physician Chief Complaint: in bed awaiting ERCP daughter and at bedside - Current Medication List Current Medications: Active Medications Alprazolam (Xanax -) 0.25 mg PO Q8H PRN PRN Reason: ANXIETY Last Admin: 02/21/18 04:05 Dose: 0.25 mg Piperacillin Sod/Tazobactam (Sod 3.375 gm/ Dextrose) 50 mls @ 100 mls/hr IVPB Q8H-IV [facility]AN; Protocol Last Admin: 02/21/18 04:02 Dose: 100 mls/hr Sodium Chloride (Normal Saline -) 1,000 mls @ 83 mls/hr IV ASDIR RYAN Last Admin: 02/19/18 10:28 Dose: 83 mls/hr Metoprolol Succinate (Toprol Xl -) 25 mg PO DAILY [facility] Last Admin: 02/20/18 12:33 Dose: 25 mg Pantoprazole Sodium (Protonix -) 20 mg PO DAILY [facility] Last Admin: 02/20/18 12:33 Dose: 20 mg Phytonadione (Mephyton -) 5 mg PO DAILY [facility] Stop: 02/21/18 10:01 Last Admin: 02/20/18 12:38 Dose: 5 mg Prednisone (Deltasone -) 40 mg PO DAILY [facility] Last Admin: 02/20/18 12:33 Dose: 40 mg Quetiapine Fumarate (Seroquel -) 25 mg PO HS [facility] Last Admin: 02/20/18 21:07 Dose: 25 mg - Objective Vital Signs: Vital Signs Temperature 98.1 F 02/21/18 06:22 Pulse Rate 64 02/21/18 06:22 Respiratory Rate 20 02/21/18 06:22 Blood Pressure 150/69 02/21/18 06:22 O2 Sat by Pulse Oximetry (%) 97 02/20/18 21:00 Constitutional: Yes: No Distress, Calm Eyes: Yes: Conjunctiva Clear HENT: Yes: Atraumatic Neck: Yes: Supple Cardiovascular: Yes: Regular Rate and Rhythm Respiratory: Yes: CTA Bilaterally Gastrointestinal: Yes: Soft. No: Distention Genitourinary: No: CVA Tenderness - Left, CVA Tenderness - Right Musculoskeletal: No: Joint Stiffness, Joint Swelling Extremities: No: Cold, Cool, Cyanosis Edema: No Integumentary: No: Rash, Venous Stasis Changes Neurological: Yes: WNL, Alert, Oriented ...Motor Strength: WNL Psychiatric: Yes: WNL, Alert, Oriented. No: Agitated, Suicidal Ideation Labs: CBC, BMP 02/21/18 05:09 02/21/18 05:09 INR, PTT INR 1.14 (0.83-1.09) H 02/21/18 05:09 - ....Imaging Other: Report Reviewed Assessment/Plan The patient is a 72-year-old female, with a past medical history of HTN, CLL ( not on any treatment), thalassemia, anxiety, kidney stones, gallstones, admitted with severe anemia and neutropenia, sepsis CBD stones, gallstones and renal stones heme f/u - will need bone marrow biopsy s/p fever on broad spectrum ATB IV per ID surgery bf/u for gallstones; GI for ERCP ARF/CRF renal stones and mild hydronephrosis close labs f/u cardio f/u psych f/u for agitation falls decubs DVT pfx d.w pot and staff; no sq heparin b/o severe anemia; she is ambulatory prognosis guarded d/w pt and staff d/w pt's and daughter
[2018-02-21 06:43] LABS: ANISOCYTOSIS 2+
[2018-02-21 06:44] LABS: PLATELET ESTIMATE DECREASED
[2018-02-21] MEDS ORDERED: MIDAZOLAM HCL 2 MG/2 ML SINGLE DOSE VIAL ONE (09:59)
--- NOTE | 2018-02-21 10:11 | PN ---
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, Physician History of Present Illness: The patient is a 72-year-old female, with a past medical history of HTN, CLL ( not on any treatment), thalassemia, anxiety, kidney stones, gallstones, who presents to the ED with facial swelling today. Daughter is at bedside and reports that her mother was complaining of nausea but no vomiting. Patient refused to go to the hospital. Daughter went to visit her mother before work and noted the facial swelling, which is worse under her eyes and the left-side of her face. She also reports that the patient appeared more yellow in color last week but today appears more pale. Patient was scheduled to have blood work drawn today at the hospital per Dr. Sabi Leyva orders. CLL that had so far no required therapy presents with painless jaundice noticed by her daughter. Tracy denies and abdominal pain, jaundice, pruritus , chills or fever but is very reserved in her responses. She was 101 in the ER. Tracy believes that her mother had nausea, anorexia,facila swelling, chills and notes a recent weight loss. Tracy lives with her . Giacomo the daughter informs me that her mother has been refractory to physician interventions and procedures chronically. I saw her in 2013 when a colon cancer screening was advised but she refused. She was close to have a procedure recently with Dr Wren for obstructing nephrolithiasis but refused at the last moment to proceed. Tracy denies any h/o liver disease, IVDA, transfusions and tattoos. She denies ever having had any surgery but in 2013 told me that she had a tonsillectomy and left axillary lymph node biopsy. PMH CRI HTN Hyperlipidemia Negative MIBI stress test June 2013 Nephroliyhiasis PAD 50-70 ICA stenosis 2012 - Current Medication List Current Medications: Active Medications Alprazolam (Xanax -) 0.25 mg PO Q8H PRN PRN Reason: ANXIETY Last Admin: 02/21/18 04:05 Dose: 0.25 mg Piperacillin Sod/Tazobactam (Sod 3.375 gm/ Dextrose) 50 mls @ 100 mls/hr IVPB Q8H-IV [facility]; Protocol Last Admin: 02/21/18 04:02 Dose: 100 mls/hr Sodium Chloride (Normal Saline -) 1,000 mls @ 83 mls/hr IV ASDIR RYAN Last Admin: 02/19/18 10:28 Dose: 83 mls/hr Metoprolol Succinate (Toprol Xl -) 25 mg PO DAILY [facility] Last Admin: 02/20/18 12:33 Dose: 25 mg Pantoprazole Sodium (Protonix -) 20 mg PO DAILY [facility] Last Admin: 02/20/18 12:33 Dose: 20 mg Prednisone (Deltasone -) 40 mg PO DAILY [facility] Last Admin: 02/20/18 12:33 Dose: 40 mg Quetiapine Fumarate (Seroquel -) 25 mg PO HS [facility] Last Admin: 02/20/18 21:07 Dose: 25 mg - Objective Vital Signs: Vital Signs Temperature 98.1 F 02/21/18 06:22 Pulse Rate 64 02/21/18 06:22 Respiratory Rate 20 02/21/18 06:22 Blood Pressure 150/69 02/21/18 06:22 O2 Sat by Pulse Oximetry (%) 97 02/20/18 21:00 Eyes: Yes: WNL, Conjunctiva Clear, EOM Intact HENT: Yes: WNL, Atraumatic, Normocephalic Neck: Yes: WNL, Supple, Trachea Midline Cardiovascular: Yes: WNL, Regular Rate and Rhythm Respiratory: Yes: WNL, Regular, CTA Bilaterally Gastrointestinal: Yes: WNL, Normal Bowel Sounds Genitourinary: Yes: WNL Musculoskeletal: Yes: WNL Extremities: Yes: WNL Edema: No Integumentary: Yes: WNL Neurological: Yes: WNL, Alert, Oriented ...Motor Strength: WNL Psychiatric: Yes: WNL Labs: CBC, BMP 02/21/18 05:09 02/21/18 05:09 INR, PTT INR 1.14 (0.83-1.09) H 02/21/18 05:09 Problem List - Problems (1) Anemia requiring transfusions Code(s): D64.9 - ANEMIA, UNSPECIFIED (2) Anxiety disorder Code(s): F41.9 - ANXIETY DISORDER, UNSPECIFIED (3) Choledocholithiasis Code(s): K80.50 - CALCULUS OF BILE DUCT W/O CHOLANGITIS OR CHOLECYST W/O OBST (4) Chronic lymphocytic leukemia Code(s): C91.90 - LYMPHOID LEUKEMIA, UNSPECIFIED NOT HAVING ACHIEVED REMISSION (5) Fever Code(s): R50.9 - FEVER, UNSPECIFIED (6) Hemolytic anemia Code(s): D58.9 - HEREDITARY HEMOLYTIC ANEMIA, UNSPECIFIED (7) Hydronephrosis Code(s): N13.30 - UNSPECIFIED HYDRONEPHROSIS (8) Jaundice Code(s): R17 - UNSPECIFIED JAUNDICE (9) Nephrolithiasis Code(s): N20.0 - CALCULUS OF KIDNEY (10) Scleral icterus Code(s): R17 - UNSPECIFIED JAUNDICE Assessment/Plan neutropenia anemia hemolisis cholelithiasis htn ECHO nl EF Plan cardiac dyson stable cont present rx
--- NOTE | 2018-02-21 10:29 | PN ---
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 (short form) - Note 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: patient is S/P ERCP She has a large chronic calculus and a kidney with only mild right I Vanda is this. The yard is not affected at this time. She will likely need a PCNL or a staged stone procedure will be scheduled as an outpatient
[2018-02-21] MEDS ORDERED: IOHEXOL 300 MG/ML INFUS..BTL IV ONE (11:03)
[2018-02-21] MEDS ORDERED: LACTATED RINGERS SOLUTION 1,000 ML/1,000 ML INFUS.BAG IV SCH ×3 (11:45→21:45)
--- NOTE | 2018-02-21 11:45 | PN ---
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 (short form) - Note 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: GI NOte> : Please see ERCP report. a single CBD stone was found in the distal common bile duct. After creation of a sphincterotomy the bile duct stone was swept out using a balloon. Several subsequent balloon sweeps were made to assure no residual stones. Multiple stones were seen in the gallbladder. A balloon occlusion retrograde cholangiogram confirmed no residual stones. The ERCP was then terminated. Findings were discussed with the patients and daughter. Problem List - Problems (1) Choledocholithiasis Code(s): K80.50 - CALCULUS OF BILE DUCT W/O CHOLANGITIS OR CHOLECYST W/O OBST (2) Fever Code(s): R50.9 - FEVER, UNSPECIFIED (3) Chronic lymphocytic leukemia Code(s): C91.90 - LYMPHOID LEUKEMIA, UNSPECIFIED NOT HAVING ACHIEVED REMISSION (4) Hemolytic anemia Code(s): D58.9 - HEREDITARY HEMOLYTIC ANEMIA, UNSPECIFIED (5) Anxiety disorder Code(s): F41.9 - ANXIETY DISORDER, UNSPECIFIED (6) Nephrolithiasis Code(s): N20.0 - CALCULUS OF KIDNEY (7) Hydronephrosis Code(s): N13.30 - UNSPECIFIED HYDRONEPHROSIS (8) Anemia requiring transfusions Code(s): D64.9 - ANEMIA, UNSPECIFIED (9) Jaundice Code(s): R17 - UNSPECIFIED JAUNDICE
[2018-02-21] MEDS ORDERED: PT OWN MED DRAWER 7, Y5N ONE (13:06)
[2018-02-21] MEDS: predniSONE 20 MG TABLET (UD) PO SCH (13:16)
[2018-02-21] MEDS: PANTOPRAZOLE 20 MG TABLET (FP) PO SCH (13:16)
[2018-02-21] MEDS: metoPROLOL SUCCINATE 25 MG TAB.SR.24H (FP) PO SCH (13:16)
[2018-02-21] MEDS: PHYTONADIONE 5 MG TABLET PO SCH (13:17)
--- NOTE | 2018-02-21 13:23 | PN ---
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, Physician Chief Complaint: The patient seen in her room. Daughter visiting. The CBD stone was removed. The patient feeling better. Appears less icteric. History of Present Illness: The patient is a 72-year-old female, with a past medical history of HTN, CLL , Thalassemia, anxiety, Stag horn kidney stones, gallstones She presented to the ER with facial swelling today. The CBD stone removed by ERCP. Patient has the renal stone, which will eventually need to be addressed. Denies any chest pain, no dysuria. - Current Medication List Current Medications: Active Medications Alprazolam (Xanax -) 0.25 mg PO Q8H PRN PRN Reason: ANXIETY Last Admin: 02/21/18 04:05 Dose: 0.25 mg Piperacillin Sod/Tazobactam (Sod 3.375 gm/ Dextrose) 50 mls @ 100 mls/hr IVPB Q8H-IV [facility]; Protocol Last Admin: 02/21/18 04:02 Dose: 100 mls/hr Sodium Chloride (Normal Saline -) 1,000 mls @ 83 mls/hr IV ASDIR RYAN Last Admin: 02/19/18 10:28 Dose: 83 mls/hr Lactated Ringer's (Lactated Ringers Solution) 1,000 ml in 1,000 mls @ 200 mls/ hr IV ASDIR [facility] Stop: 02/21/18 15:45 Lactated Ringer's (Lactated Ringers Solution) 1,000 ml in 1,000 mls @ 175 mls/ hr IV ASDIR [facility] Stop: 02/21/18 21:45 Lactated Ringer's (Lactated Ringers Solution) 1,000 ml in 1,000 mls @ 150 mls/ hr IV ASDIR [facility] Stop: 02/22/18 03:45 Lactated Ringer's (Lactated Ringers Solution) 1,000 ml in 1,000 mls @ 125 mls/ hr IV ASDIR RYAN Metoprolol Succinate (Toprol Xl -) 25 mg PO DAILY [facility] Last Admin: 02/20/18 12:33 Dose: 25 mg Pantoprazole Sodium (Protonix -) 20 mg PO DAILY [facility] Last Admin: 02/20/18 12:33 Dose: 20 mg Prednisone (Deltasone -) 40 mg PO DAILY [facility] Last Admin: 02/20/18 12:33 Dose: 40 mg Quetiapine Fumarate (Seroquel -) 25 mg PO HS [facility] Last Admin: 02/20/18 21:07 Dose: 25 mg - Objective Vital Signs: Vital Signs Temperature 97.8 F 02/21/18 11:40 Pulse Rate 67 02/21/18 12:43 Respiratory Rate 18 02/21/18 12:43 Blood Pressure 161/72 02/21/18 12:43 O2 Sat by Pulse Oximetry (%) 97 02/21/18 12:43 Constitutional: Yes: No Distress, Anxious, Pallor, Other (less icteric) Eyes: Yes: Conjunctiva Clear HENT: Yes: Normocephalic Neck: Yes: Supple Cardiovascular: Yes: Regular Rate and Rhythm, S1, S2 Respiratory: Yes: CTA Bilaterally, Diminished Gastrointestinal: Yes: Normal Bowel Sounds, Soft Genitourinary: No: Bladder Distention, CVA Tenderness - Left, CVA Tenderness - Right Musculoskeletal: Yes: WNL Neurological: Yes: Alert, Oriented Labs: CBC, BMP 02/21/18 05:09 02/21/18 05:09 INR, PTT INR 1.14 (0.83-1.09) H 02/21/18 05:09 Assessment/Plan The patient is a 72-year-old female, with a past medical history of HTN, CLL, Thalassemia, anxiety, kidney stones, gallstones admitted with facial swelling, worsening icterus. The EBER, possibly hemodynamic in nature, superimposed on obstructive uropathy from Renal calculus. Azotemia improving. LFTs also improving. IV fluids well tolerated. Will monitor the renal functions with you. Will require Renal stone w/u when discharged. Sarah Cardona MD
[2018-02-21 16:16] LABS: E. chaff IgG Negative (Neg:<1:64)
--- NOTE | 2018-02-21 16:37 | PN ---
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 (short form) - Note 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: alert s/p ERCP CBD stone removed, sphicterotomy Vital Signs Period Temp Pulse Resp BP Sys/Borjas Pulse Ox Last 24 Hr 97.8 F-98.7 F 64-82 13-20 149-172/69-94 96-98 cor-rrr lungs clear abd soft,nt ext multiple ecchymoses of her arms CBC, BMP 02/21/18 05:09 02/21/18 05:09 Microbiology 02/15/18 10:10 Blood - Peripheral Venous Blood Culture - Final NO GROWTH AFTER 5 DAYS INCUBATION 02/15/18 10:10 Blood - Peripheral Venous Blood Culture - Final NO GROWTH AFTER 5 DAYS INCUBATION 02/16/18 15:00 Blood - Peripheral Venous Blood Parasites Smear - Final 02/15/18 11:20 Urine - Urine Clean Catch Urine Culture - Final a/p CBD stones- s/p ercp today, continue zosyn leukoopenia anemia f/u with flow, ?bone marrow parvovirus pcr pending
[2018-02-21] MEDS: QUEtiapine FUMARATE 25 MG TABLET (FP) PO SCH (21:22)
[2018-02-21] MEDS: LACTATED RINGERS SOLUTION 1,000 ML/1,000 ML INFUS.BAG IV SCH (21:23)
[2018-02-22] MEDS ORDERED: DEXTROSE 5%-WATER - 50 ML IVPB ONE ×3 (00:45→18:09)
[2018-02-22] MEDS ORDERED: PIPERACILLIN/TAZOBACTAM 3.375 GM VIAL IVPB ONE ×3 (00:45→18:09)
[2018-02-22] MEDS: PIPERACILLIN/TAZOB 3.375 GM 3.375 GM in DEXTROSE 5%-WATER - 50 ML IVPB SCH ×3 (01:23→18:16)
[2018-02-22] MEDS: SODIUM CHLORIDE 1,000 ML IV SCH (05:27)
--- NOTE | 2018-02-22 08:43 | PN ---
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, Physician Chief Complaint: events noted; pt did renal scan ERCP removed 1 CBD stone; still has many GB stones will need cholecystectomy d/ w pt and daughter - seen by surgery - Current Medication List Current Medications: Active Medications Alprazolam (Xanax -) 0.25 mg PO Q8H PRN PRN Reason: ANXIETY Last Admin: 02/21/18 04:05 Dose: 0.25 mg Piperacillin Sod/Tazobactam (Sod 3.375 gm/ Dextrose) 50 mls @ 100 mls/hr IVPB Q8H-IV [facility]; Protocol Last Admin: 02/22/18 01:23 Dose: 100 mls/hr Sodium Chloride (Normal Saline -) 1,000 mls @ 83 mls/hr IV ASDIR [facility] Last Admin: 02/22/18 05:27 Dose: 83 mls/hr Lactated Ringer's (Lactated Ringers Solution) 1,000 ml in 1,000 mls @ 125 mls/ hr IV ASDIR [facility] Last Admin: 02/21/18 21:23 Dose: 125 mls/hr Metoprolol Succinate (Toprol Xl -) 25 mg PO DAILY [facility] Last Admin: 02/21/18 13:16 Dose: 25 mg Pantoprazole Sodium (Protonix -) 20 mg PO DAILY [facility] Last Admin: 02/21/18 13:16 Dose: 20 mg Prednisone (Deltasone -) 40 mg PO DAILY [facility] Last Admin: 02/21/18 13:16 Dose: 40 mg Quetiapine Fumarate (Seroquel -) 25 mg PO HS [facility] Last Admin: 02/21/18 21:22 Dose: 25 mg - Objective Vital Signs: Vital Signs Temperature 98.0 F 02/22/18 06:18 Pulse Rate 74 02/22/18 06:18 Respiratory Rate 18 02/22/18 06:18 Blood Pressure 161/72 02/21/18 22:00 O2 Sat by Pulse Oximetry (%) 97 02/21/18 21:00 Constitutional: Yes: No Distress Eyes: Yes: Conjunctiva Clear HENT: Yes: Atraumatic Neck: Yes: Supple Cardiovascular: Yes: Regular Rate and Rhythm Respiratory: Yes: CTA Bilaterally Gastrointestinal: Yes: Soft. No: Distention, Tenderness Musculoskeletal: No: Joint Stiffness, Joint Swelling Extremities: No: Cold, Cool, Cyanosis Edema: No Integumentary: Yes: Bruising (better). No: Pressure Ulcer, Rash Neurological: Yes: WNL, Alert, Oriented ...Motor Strength: WNL Psychiatric: Yes: WNL, Alert, Oriented. No: Agitated, Suicidal Ideation Labs: CBC, BMP 02/21/18 05:09 02/21/18 05:09 INR, PTT INR 1.14 (0.83-1.09) H 02/21/18 05:09 - ....Imaging Other: Report Reviewed Assessment/Plan The patient is a 72-year-old female, with a past medical history of HTN, CLL ( not on any treatment), thalassemia, anxiety, kidney stones, gallstones, admitted with severe anemia and neutropenia, sepsis CBD stones, gallstones and renal stones heme f/u - will need bone marrow biopsy s/p fever on broad spectrum ATB IV per ID surgery f/u for gallstones, cholecystectomy?; GI f/u s/p ERCP ARF/CRF renal stones and mild hydronephrosis - renal scan pending close labs f/u cardio f/u psych f/u falls decubs DVT pfx d.w pot and staff; no sq heparin b/o severe anemia; she is ambulatory prognosis guarded d/w pt and staff
[2018-02-22] MEDS: predniSONE 20 MG TABLET (UD) PO SCH (10:57)
[2018-02-22] MEDS: PANTOPRAZOLE 20 MG TABLET (FP) PO SCH (10:57)
[2018-02-22] MEDS: metoPROLOL SUCCINATE 25 MG TAB.SR.24H (FP) PO SCH (10:57)
--- NOTE | 2018-02-22 11:03 | PN ---
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 (short form) - Note 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: Renal follow up for EBER Pt seen and examined at the bedside no acute complaints no flank pain, sob, cp, dysuria making urine s/p NM renal scan today Vital Signs Temperature 98.0 F 02/22/18 06:18 Pulse Rate 74 02/22/18 06:18 Respiratory Rate 18 02/22/18 06:18 Blood Pressure 161/72 02/21/18 22:00 O2 Sat by Pulse Oximetry (%) 97 02/21/18 21:00 Intake & Output 02/19/18 02/20/18 02/21/18 02/22/18 23:59 23:59 23:59 23:59 Intake Total 1150 2614 2628 1050 Output Total 300 Balance 850 2614 2628 1050 NAD MMM No LE edema CBC, BMP 02/22/18 10:41 02/22/18 10:41 Current Medications Alprazolam (Xanax -) 0.25 mg PO Q8H PRN PRN Reason: ANXIETY Last Admin: 02/21/18 04:05 Dose: 0.25 mg Piperacillin Sod/Tazobactam (Sod 3.375 gm/ Dextrose) 50 mls @ 100 mls/hr IVPB Q8H-IV RYAN; Protocol Last Admin: 02/22/18 10:58 Dose: 100 mls/hr Sodium Chloride (Normal Saline -) 1,000 mls @ 83 mls/hr IV ASDIR RYAN Last Admin: 02/22/18 05:27 Dose: 83 mls/hr Lactated Ringer's (Lactated Ringers Solution) 1,000 ml in 1,000 mls @ 125 mls/ hr IV ASDIR RYAN Last Admin: 02/21/18 21:23 Dose: 125 mls/hr Metoprolol Succinate (Toprol Xl -) 25 mg PO DAILY RYAN Last Admin: 02/22/18 10:57 Dose: 25 mg Pantoprazole Sodium (Protonix -) 20 mg PO DAILY RYAN Last Admin: 02/22/18 10:57 Dose: 20 mg Prednisone (Deltasone -) 40 mg PO DAILY RYAN Last Admin: 02/22/18 10:57 Dose: 40 mg Quetiapine Fumarate (Seroquel -) 25 mg PO HS [facility] Last Admin: 02/21/18 21:22 Dose: 25 mg 72-year-old female, with a past medical history of HTN, CLL,Thalassemia, anxiety , kidney stones, gallstones admitted with facial swelling, worsening icterus. #EBER secondary to unilateral obstruction with staghorn calculi #Facial Swelling w/o albuminuira #Anemia/CLL Renal function improved and stable NM Renal scan performed, results pending urolgoy following continue moderate rate IVF Abx as per ZACHERY Duran DO
[2018-02-22 11:05] LABS: BASO % 1.8 % (0-2.0); EOS % 1.7 % (0-4.5); HEMATOCRIT 30.6 % (32.4-45.2); HEMOGLOBIN 10.3 GM/dL (10.7-15.3); LYMPH % 41.8 % (8-40); MCH 27.3 pg (25.7-33.7); MCHC 33.7 g/dl (32.0-36.0); MEAN CELL VOLUME 80.8 fl (80-96); MONO % 2.2 % (3.8-10.2); NEUT % 52.5 % (42.8-82.8); PLATELET COUNT 123 K/MM3 (134-434); RBC 3.78 M/mm3 (3.60-5.2); RDW 23.2 % (11.6-15.6); WHITE BLOOD COUNT 2.7 K/mm3 (4.0-10.0)
[2018-02-22 11:39] LABS: ALK PHOS 71 U/L (45-117); ANION GAP 7 MMOL/L (8-16); BILIRUBIN,TOTAL 1.4 mg/dL (0.2-1); BLOOD UREA NITROGEN 38 mg/dL (7-18); CALCIUM 8.9 mg/dL (8.5-10.1); CHLORIDE 103 mmol/L (98-107); CO2 29 mmol/L (21-32); CREATININE 1.4 mg/dL (0.55-1.3); GLUCOSE,RANDOM 148 mg/dL (74-106); POTASSIUM 3.9 mmol/L (3.5-5.1); SGOT/AST 19 U/L (15-37); SGPT/ALT 52 U/L (13-61); SODIUM 140 mmol/L (136-145); TOT PROT 5.9 g/dl (6.4-8.2)
[2018-02-22 11:51] LABS: BILIRUBIN,DIRECT 0.3 mg/dL (0.0-0.2)
[2018-02-22 12:40] LABS: ANISOCYTOSIS 2+; MACROCYTOSIS 1+; OVALOCYTE 1+; PLATELET ESTIMATE DECREASED; TARGET CELLS 1+
--- NOTE | 2018-02-22 15:59 | PN ---
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 (short form) - Note 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: PROGRESS NOTE FOR HEMATOLOGY/ONCOLOGY Patient seen and examined at bedside. Patient reports feeling better and offers no complaints Was taken to get an MRCP with results pending Seen and evaluated by GI today who recommend ERCP when more stable 3 units of PRBC's given, will give an additional unit Remains Neutropenic, etiology still unclear Vital Signs Temperature 98.5 F 02/22/18 15:22 Pulse Rate 68 02/22/18 15:22 Respiratory Rate 18 02/22/18 15:22 Blood Pressure 144/70 02/22/18 15:22 O2 Sat by Pulse Oximetry (%) 97 02/22/18 12:15 PHYSICAL EXAMINATION: GENERAL: Awake, alert, oriented x3, with less pallor today MOUTH: No oral thrush. moist mucous membranes HEART: RRR, 2/6 WINDY LUNGS: CTA B/L ABDOMEN: Soft, nontender, nondistended EXTREMITIES: No peripheral edema Laboratory Tests 02/22/18 10:41 02/22/18 10:41 02/21/18 02/21/18 02/22/18 05:09 05:09 10:41 Absolute Neuts (auto) 0.7 L 1.4 L PT with INR 13.50 H Total Bilirubin Direct Bilirubin Total Amylase Lipase 02/22/18 02/22/18 10:41 10:41 Absolute Neuts (auto) PT with INR Total Bilirubin 1.4 H Direct Bilirubin 0.3 H Total Amylase 754 H Lipase 1369 H ASSESSMENT AND PLAN: Patient is a 72 year old female with a PMHx of CLL (on no trestment) who presented for facial swelling, jaundice and blood work revealed profound anemia with Hgb 3.8, neutropenia with WBC of 1.9. Problem List: CLL HTN Neutropenia Anemia of Chronic Disease Choledocolithiasis Hydronephrosis Lymphadenopathy Possible sepsis with febrile neutropenia PLAN: -Patient s/p ERCP and was found to have stone in CBD and extracted. -Continues to have Neutropenia. Patient has negative kimberly test and awaiting flow cytometry. -Continue steroids and will need to taper -Will need to do Bone Marrow Biopsy. -Continue to monitor CBC -Neutropenia precautions
--- NOTE | 2018-02-22 19:46 | PN ---
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 (short form) - Note 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: Patient seen and examined Offers no complaints No abdominal complaints s/p ERCP - elevated lipase post procedure Last Vital Signs Temp Pulse Resp BP Pulse Ox 98.1 F 71 20 157/73 97 02/22/18 16:30 02/22/18 16:30 02/22/18 16:30 02/22/18 16:30 02/22/18 12:15 HEENT: FELIBERTO, EOM Intact Oropharynx: No thrush, No mucositis Cor: RSR, No murmurs, No gallops Lungs: Clear to P&A Abd: distended , soft Ext:No significant edema, ecchymoses Skin: No rashes, Integument intact CBC, BMP 02/22/18 10:41 02/22/18 10:41 Current Medications Generic Name Dose Route Start Last Admin Trade Name Freq PRN Reason Stop Dose Admin Alprazolam 0.25 mg 02/16/18 12:44 02/21/18 04:05 Xanax - PO 0.25 mg Q8H PRN Administration ANXIETY Piperacillin Sod/Tazobactam 50 mls @ 100 mls/hr 02/15/18 18:00 02/22/18 18:16 Sod 3.375 gm/ Dextrose IVPB 100 mls/hr Q8H-IV RYAN Administration Protocol Sodium Chloride 1,000 mls @ 83 mls/hr 02/19/18 09:30 02/22/18 05:27 Normal Saline - IV 83 mls/hr ASDIR RYAN Administration Lactated Ringer's 1,000 ml in 1,000 mls @ 125 mls/hr 02/22/18 03:45 02/21/18 21:23 Lactated Ringers Solution IV 125 mls/hr ASDIR RYAN Administration Metoprolol Succinate 25 mg 02/16/18 10:00 02/22/18 10:57 Toprol Xl - PO 25 mg DAILY RYAN Administration Pantoprazole Sodium 20 mg 02/15/18 18:45 02/22/18 10:57 Protonix - PO 20 mg DAILY RYAN Administration Prednisone 40 mg 02/20/18 10:00 02/22/18 10:57 Deltasone - PO 40 mg DAILY RYAN Administration Quetiapine Fumarate 25 mg 02/18/18 22:00 02/21/18 21:22 Seroquel - PO 25 mg HS RYAN Administration Impression: CLL Anemia Neutropenia CBD stone - s/p extraction Still unclear as to etiology of anemia and neutropenia now with sequlae of stone extraction with elevation of lipase. ? increase in WBC is related to underlying chemical pancreatitis. To monitor Antibiotics continue. Anemia
--- NOTE | 2018-02-22 21:03 | PN ---
GI 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 Subjective: GI Note: Tracy denies abdominal pain and has been eating. Given this and her CRP of 0.8 I do not believe that she has clinical pancreatitis. - Objective Vital Signs: Vital Signs Temperature 98.1 F 02/22/18 16:30 Pulse Rate 71 02/22/18 16:30 Respiratory Rate 20 02/22/18 16:30 Blood Pressure 157/73 02/22/18 16:30 O2 Sat by Pulse Oximetry (%) 97 02/22/18 12:15 Laboratory Tests 02/20/18 02/21/18 02/21/18 10:41 05:09 05:09 WBC 1.9 L* Hgb 9.3 L Plt Count Total Bilirubin 2.5 H 1.3 H Direct Bilirubin Alkaline Phosphatase C-Reactive Protein Total Amylase Lipase 02/22/18 02/22/18 02/22/18 10:41 10:41 10:41 WBC 2.7 L Hgb 10.3 L Plt Count 123 L Total Bilirubin 1.4 H Direct Bilirubin 0.3 H Alkaline Phosphatase 71 C-Reactive Protein 0.8 H Total Amylase 754 H Lipase 1369 H Constitutional: No Distress ...Auscultate: Yes: Normoactive Bowel Sounds ...Palpate: Yes: Soft, Other (nontender) Labs: CBC, BMP 02/22/18 10:41 02/22/18 10:41 INR, PTT INR 1.14 (0.83-1.09) H 02/21/18 05:09 Assessment/Plan Day 1 s/p ERCP Continue antibiotics Anticipate lap choly Problem List - Problems (1) Choledocholithiasis Assessment/Plan: Day 1 s/p ERCP and stone extraction. Continue antibiotics. Proceed with lap choly. Code(s): K80.50 - CALCULUS OF BILE DUCT W/O CHOLANGITIS OR CHOLECYST W/O OBST (2) Fever Code(s): R50.9 - FEVER, UNSPECIFIED (3) Chronic lymphocytic leukemia Code(s): C91.90 - LYMPHOID LEUKEMIA, UNSPECIFIED NOT HAVING ACHIEVED REMISSION (4) Hemolytic anemia Code(s): D58.9 - HEREDITARY HEMOLYTIC ANEMIA, UNSPECIFIED (5) Anxiety disorder Code(s): F41.9 - ANXIETY DISORDER, UNSPECIFIED (6) Nephrolithiasis Code(s): N20.0 - CALCULUS OF KIDNEY (7) Hydronephrosis Code(s): N13.30 - UNSPECIFIED HYDRONEPHROSIS (8) Anemia requiring transfusions Code(s): D64.9 - ANEMIA, UNSPECIFIED (9) Jaundice Code(s): R17 - UNSPECIFIED JAUNDICE
[2018-02-22] MEDS: QUEtiapine FUMARATE 25 MG TABLET (FP) PO SCH (21:54)
[2018-02-23] MEDS: PIPERACILLIN/TAZOB 3.375 GM 3.375 GM in DEXTROSE 5%-WATER - 50 ML IVPB SCH ×2 (02:35→10:33)
--- NOTE | 2018-02-23 06:50 | PN ---
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, Physician Chief Complaint: in bed alert awake NAD renal scan pending bruises resolv ing but has a small mass L U E biceps area most likely hematoma ( after agutation during previous nights) doubt DVT but will check poppler US d/w pt and daughter pt needs bone marrow biopsy, cholecystectomy and renal stones to be addressed in the near future, to coordinate them together with the specialists - Current Medication List Current Medications: Active Medications Alprazolam (Xanax -) 0.25 mg PO Q8H PRN PRN Reason: ANXIETY Last Admin: 02/21/18 04:05 Dose: 0.25 mg Piperacillin Sod/Tazobactam (Sod 3.375 gm/ Dextrose) 50 mls @ 100 mls/hr IVPB Q8H-IV RYAN; Protocol Last Admin: 02/23/18 02:35 Dose: Not Given Sodium Chloride (Normal Saline -) 1,000 mls @ 83 mls/hr IV ASDIR RYAN Last Admin: 02/22/18 05:27 Dose: 83 mls/hr Lactated Ringer's (Lactated Ringers Solution) 1,000 ml in 1,000 mls @ 125 mls/ hr IV ASDIR RYAN Last Admin: 02/21/18 21:23 Dose: 125 mls/hr Metoprolol Succinate (Toprol Xl -) 25 mg PO DAILY [facility] Last Admin: 02/22/18 10:57 Dose: 25 mg Pantoprazole Sodium (Protonix -) 20 mg PO DAILY RYAN Last Admin: 02/22/18 10:57 Dose: 20 mg Prednisone (Deltasone -) 40 mg PO DAILY [facility] Last Admin: 02/22/18 10:57 Dose: 40 mg Quetiapine Fumarate (Seroquel -) 25 mg PO HS [facility] Last Admin: 02/22/18 21:54 Dose: 25 mg - Objective Vital Signs: Vital Signs Temperature 97.7 F 02/22/18 22:00 Pulse Rate 69 02/22/18 22:00 Respiratory Rate 20 02/22/18 22:00 Blood Pressure 167/85 02/22/18 22:00 O2 Sat by Pulse Oximetry (%) 97 02/22/18 21:00 Constitutional: Yes: No Distress, Calm Eyes: Yes: Conjunctiva Clear HENT: Yes: Atraumatic Neck: Yes: Supple Cardiovascular: Yes: Regular Rate and Rhythm Respiratory: Yes: CTA Bilaterally Gastrointestinal: Yes: Soft. No: Distention Genitourinary: No: CVA Tenderness - Left, CVA Tenderness - Right Musculoskeletal: No: Joint Stiffness, Joint Swelling Extremities: Yes: Other (LUE biceps area small mass most likely muscle hematoma) . No: Cold, Cool, Cyanosis Edema: No Integumentary: Yes: Bruising. No: Rash, Venous Stasis Changes Neurological: Yes: WNL, Alert, Oriented ...Motor Strength: WNL Psychiatric: Yes: WNL, Alert, Oriented. No: Agitated, Suicidal Ideation Labs: CBC, BMP 02/22/18 10:41 02/22/18 10:41 INR, PTT INR 1.14 (0.83-1.09) H 02/21/18 05:09 - ....Imaging Other: Report Reviewed Assessment/Plan The patient is a 72-year-old female, with a past medical history of HTN, CLL ( not on any treatment), thalassemia, anxiety, kidney stones, gallstones, admitted with severe anemia and neutropenia, sepsis CBD stones, gallstones and renal stones heme f/u - will need bone marrow biopsy s/p fever on broad spectrum ATB IV per ID surgery f/u for gallstones, cholecystectomy?; GI f/u s/p ERCP ARF/CRF renal stones and mild hydronephrosis - renal scan pending LUE venous US r/o DVT close labs f/u cardio f/u psych f/u falls decubs DVT pfx d.w pot and staff; no sq heparin b/o severe anemia; she is ambulatory prognosis guarded d/w pt and staff d/w daughter
[2018-02-23] MEDS: SODIUM CHLORIDE 1,000 ML IV SCH (09:30)
[2018-02-23] MEDS: predniSONE 20 MG TABLET (UD) PO SCH (10:32)
[2018-02-23] MEDS: metoPROLOL SUCCINATE 25 MG TAB.SR.24H (FP) PO SCH (10:33)
[2018-02-23] MEDS: PANTOPRAZOLE 20 MG TABLET (FP) PO SCH (10:33)
--- NOTE | 2018-02-23 11:31 | PN ---
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, Physician History of Present Illness: S/P ERCP/ stone extraction Supine in bed Less pale/ icteric No complaints Denies abdominal pain or urinary symptoms Afebrile Cultures negative WBC improved 2.7 ANC 1.4 - Current Medication List Current Medications: Active Medications Alprazolam (Xanax -) 0.25 mg PO Q8H PRN PRN Reason: ANXIETY Last Admin: 02/21/18 04:05 Dose: 0.25 mg Sodium Chloride (Normal Saline -) 1,000 mls @ 83 mls/hr IV ASDIR [facility] Last Admin: 02/22/18 05:27 Dose: 83 mls/hr Lactated Ringer's (Lactated Ringers Solution) 1,000 ml in 1,000 mls @ 125 mls/ hr IV ASDIR [facility] Last Admin: 02/21/18 21:23 Dose: 125 mls/hr Metoprolol Succinate (Toprol Xl -) 25 mg PO DAILY [facility] Last Admin: 02/23/18 10:33 Dose: 25 mg Pantoprazole Sodium (Protonix -) 20 mg PO DAILY [facility] Last Admin: 02/23/18 10:33 Dose: 20 mg Prednisone (Deltasone -) 40 mg PO DAILY [facility] Last Admin: 02/23/18 10:32 Dose: 40 mg Quetiapine Fumarate (Seroquel -) 25 mg PO HS [facility] Last Admin: 02/22/18 21:54 Dose: 25 mg - Objective Vital Signs: Vital Signs Temperature 97.7 F 02/22/18 22:00 Pulse Rate 69 02/22/18 22:00 Respiratory Rate 20 02/22/18 22:00 Blood Pressure 167/85 02/22/18 22:00 O2 Sat by Pulse Oximetry (%) 97 02/22/18 21:00 Constitutional: Yes: No Distress, Cachectic Eyes: Yes: Conjunctiva Clear Cardiovascular: Yes: Regular Rate and Rhythm, S1, S2 Respiratory: Yes: CTA Bilaterally Gastrointestinal: Yes: Normal Bowel Sounds, Soft. No: Tenderness Edema: Yes Edema: LLE: 1+, RLE: 1+ Labs: CBC, BMP 02/22/18 10:41 02/22/18 10:41 INR, PTT INR 1.14 (0.83-1.09) H 02/21/18 05:09 Assessment/Plan S/P ERCP/ stone extraction Hemolytic anemia Leukopenia- improved Afebrile WBC improved Cultures negative D/C zosyn, observe off antibiotics
--- NOTE | 2018-02-23 11:39 | PN ---
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 (short form) - Note 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: Renal follow up for EBER Vital Signs Temperature 97.7 F 02/22/18 22:00 Pulse Rate 69 02/22/18 22:00 Respiratory Rate 20 02/22/18 22:00 Blood Pressure 167/85 02/22/18 22:00 O2 Sat by Pulse Oximetry (%) 97 02/22/18 21:00 Intake & Output 02/20/18 02/21/18 02/22/18 02/23/18 23:59 23:59 23:59 23:59 Intake Total 2614 2628 1730 Balance 2614 2628 1730 CBC, BMP 02/22/18 10:41 02/22/18 10:41 Current Medications Alprazolam (Xanax -) 0.25 mg PO Q8H PRN PRN Reason: ANXIETY Last Admin: 02/21/18 04:05 Dose: 0.25 mg Sodium Chloride (Normal Saline -) 1,000 mls @ 83 mls/hr IV ASDIR [facility] Last Admin: 02/22/18 05:27 Dose: 83 mls/hr Lactated Ringer's (Lactated Ringers Solution) 1,000 ml in 1,000 mls @ 125 mls/ hr IV ASDIR [facility] Last Admin: 02/21/18 21:23 Dose: 125 mls/hr Metoprolol Succinate (Toprol Xl -) 25 mg PO DAILY [facility] Last Admin: 02/23/18 10:33 Dose: 25 mg Pantoprazole Sodium (Protonix -) 20 mg PO DAILY [facility] Last Admin: 02/23/18 10:33 Dose: 20 mg Prednisone (Deltasone -) 40 mg PO DAILY [facility] Last Admin: 02/23/18 10:32 Dose: 40 mg Quetiapine Fumarate (Seroquel -) 25 mg PO HS [facility] Last Admin: 02/22/18 21:54 Dose: 25 mg 72-year-old female, with a past medical history of HTN, CLL,Thalassemia, anxiety , kidney stones, gallstones admitted with facial swelling, worsening icterus. #EBER secondary to unilateral obstruction with staghorn calculi #Facial Swelling w/o albuminuira #Anemia/CLL Tr Roger PEREZ
--- NOTE | 2018-02-23 12:49 | PN ---
GI 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 Subjective: GI Note": Denies abdominal pain. Jaundice resolved - Objective Vital Signs: Vital Signs Temperature 98.6 F 02/23/18 10:00 Pulse Rate 88 02/23/18 10:00 Respiratory Rate 20 02/23/18 10:00 Blood Pressure 150/80 02/23/18 10:00 O2 Sat by Pulse Oximetry (%) 97 02/23/18 09:00 Constitutional: Calm ...Auscultate: Yes: Normoactive Bowel Sounds ...Palpate: Yes: Soft, Other (nontender) Labs: CBC, BMP 02/22/18 10:41 02/22/18 10:41 INR, PTT INR 1.14 (0.83-1.09) H 02/21/18 05:09 Assessment/Plan Day 2 s/p ERCP Continue antibiotics Anticipate lap choly Problem List - Problems (1) Choledocholithiasis Code(s): K80.50 - CALCULUS OF BILE DUCT W/O CHOLANGITIS OR CHOLECYST W/O OBST (2) Fever Code(s): R50.9 - FEVER, UNSPECIFIED (3) Chronic lymphocytic leukemia Code(s): C91.90 - LYMPHOID LEUKEMIA, UNSPECIFIED NOT HAVING ACHIEVED REMISSION (4) Hemolytic anemia Code(s): D58.9 - HEREDITARY HEMOLYTIC ANEMIA, UNSPECIFIED (5) Anxiety disorder Code(s): F41.9 - ANXIETY DISORDER, UNSPECIFIED (6) Nephrolithiasis Code(s): N20.0 - CALCULUS OF KIDNEY (7) Hydronephrosis Code(s): N13.30 - UNSPECIFIED HYDRONEPHROSIS (8) Anemia requiring transfusions Code(s): D64.9 - ANEMIA, UNSPECIFIED (9) Jaundice Code(s): R17 - UNSPECIFIED JAUNDICE
--- NOTE | 2018-02-23 13:36 | PN ---
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 (short form) - Note 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: surgery 72f with multiple medical problems with elevated bilirubin and choledocholithiasis. ERCP done with stone extraction and now elevated amylase and lipase. Ct notes abnormal heart, liver, adenopathy, and anasarca. Pt currently undergoing hematology workup for low wbc and low plt with bone marrow biopsy planned for Wednesday and plans for neupogen to be given after. Request made by gi and medical service for cholecystectomy prior to discharge and not as an outpt because of risk of recurrence of choledocholithiasis and non- compliance. Will plan for surgery Wednesday if medically optimized and deemed a candidate for surgery at a [facility]. Will need consent as patient refuses to sign her own?
--- NOTE | 2018-02-23 13:51 | PN ---
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 (short form) - Note 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: PROGRESS NOTE FOR HEMATOLOGY/ONCOLOGY Patient seen and examined at bedside. Patient offers no complaints S/P ERCP with stone extracted and resolution of Jaundice Remains Neutropenic, etiology still unclear Vital Signs Temperature 98.6 F 02/23/18 10:00 Pulse Rate 88 02/23/18 10:00 Respiratory Rate 20 02/23/18 10:00 Blood Pressure 150/80 02/23/18 10:00 O2 Sat by Pulse Oximetry (%) 97 02/23/18 09:00 PHYSICAL EXAMINATION: GENERAL: Awake, alert, oriented x3, In no acute distress MOUTH: No oral thrush. moist mucous membranes HEART: RRR, 2/6 WINDY LUNGS: CTA B/L ABDOMEN: Soft, nontender, nondistended EXTREMITIES: No peripheral edema ASSESSMENT AND PLAN: Patient is a 72 year old female with a PMHx of CLL (on no trestment) who presented for facial swelling, jaundice and blood work revealed profound anemia with Hgb 3.8, neutropenia with WBC of 1.9. Problem List: CLL HTN Neutropenia Anemia of Chronic Disease Choledocolithiasis Hydronephrosis Lymphadenopathy Possible sepsis with febrile neutropenia PLAN: -Patient s/p ERCP and was found to have stone in CBD and extracted. Seen by surgery who will do a lab faviola Wednesday next week -No labs drawn, but as of yesterday, patient was still neutropenic -Continue steroids and will need to taper -Will need to do Bone Marrow Biopsy. -Continue to monitor CBC -Neutropenia precautions
--- NOTE | 2018-02-23 13:59 | PATH ---
Surgical Pathology Report Patient Name: AYLEEN GILMORE [facility]. Rec. #: [id number] /Age/Gender: 1945 (Age: 72) / F Account: [id number] Location: [facility] APPLICATION SPECIALIST Taken: 02/21/2018 Received: 02/21/2018 Reported: 02/23/2018 Physicians: Alessandra Mesa M.D. Specimen(s) Received 4 GREEN TOP TUBES Clinical History Neutropenia, anemia, history of CLL Final Diagnosis COMPREHENSIVE FLOW PANEL performed and interpreted at [place], [place] ([id number]) shows the following: INTERPRETATION: SMALL (2% OF TOTAL EVENTS) CLONAL CD5+ B-CELL POPULATION IS DETECTED, SEE COMMENT. NO INCREASE OF MYELOBLASTS. Comment: Prior flow cytometric assessment of a left axillary lymph node on record ([id number], 08/2013) demonstrated clonal B-cell population with CLL/SLL immunophenotype. Correlation with relevant clinical, imaging and laboratory data is essential. MYELODYSPLASIA FISH PANEL performed and interpreted at [email or web address] [place], [place] ([id number]) shows the following: INTERPRETATION: NO EVIDENCE OF DELETION 5q OR MONOSOMY 5 IS PRESENT. NO EVIDENCE OF DELETION 7q OR MONOSOMY 7 IS PRESENT. NO EVIDENCE OF TRISOMY 8 (+8) IS PRESENT. NO EVIDENCE OF DELETION 13q14.2 IS PRESENT. NO EVIDENCE OF REARRANGEMENT OF 11q23. NO EVIDENCE OF A DELETION OF THE p53 (17p13) LOCUS. NO EVIDENCE OF DELETION 20q12 IS PRESENT. Comment: Correlation with pending cytogenetics ([id number]) is recommended. See [facility] reports ([id number] and [id number]) for additional details. Electronically Signed Jose Roberto Laguna M.D. Addendum Reported: 02/25/2018 Addendum Diagnosis CYTOGENETIC KARYOTYPE ANALYSIS performed and interpreted at [place], [place] ([id number]) TEST RESULTS: 46, XX [20] DIAGNOSTIC INTERPRETATION: Normal Karyotype Within the limits of the cytogenetics methods, the chromosome had normal G-banding patterns with no evidence of an acquired clonal numerical or structural abnormality. This normal result does not rule out neoplasm. Subtle rearrangements or the presence of an aberrant clone in a low proportion of cells cannot be ruled out. Correlation with other clinical and hematologic data is suggested. Analysis was performed on cells from unstimulated tissue cultures. See [facility] report for additional details ([id number]). Josselyn Long M.D. Gross Description Received are 4 green top tubes of blood which are sent to [facility]. 02/21/2018 [facility]02/21/2018
--- NOTE | 2018-02-23 14:14 | PN ---
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, Physician History of Present Illness: The patient is a 72-year-old female, with a past medical history of HTN, CLL ( not on any treatment), thalassemia, anxiety, kidney stones, gallstones, who presents to the ED with facial swelling today. Daughter is at bedside and reports that her mother was complaining of nausea but no vomiting. Patient refused to go to the hospital. Daughter went to visit her mother before work and noted the facial swelling, which is worse under her eyes and the left-side of her face. She also reports that the patient appeared more yellow in color last week but today appears more pale. Patient was scheduled to have blood work drawn today at the hospital per Dr. Sabi Leyva orders. CLL that had so far no required therapy presents with painless jaundice noticed by her daughter. Tracy denies and abdominal pain, jaundice, pruritus , chills or fever but is very reserved in her responses. She was 101 in the ER. Tracy believes that her mother had nausea, anorexia,facila swelling, chills and notes a recent weight loss. Tracy lives with her . Giacomo the daughter informs me that her mother has been refractory to physician interventions and procedures chronically. I saw her in 2013 when a colon cancer screening was advised but she refused. She was close to have a procedure recently with Dr Wren for obstructing nephrolithiasis but refused at the last moment to proceed. Tracy denies any h/o liver disease, IVDA, transfusions and tattoos. She denies ever having had any surgery but in 2013 told me that she had a tonsillectomy and left axillary lymph node biopsy. PMH CRI HTN Hyperlipidemia Negative MIBI stress test June 2013 Nephroliyhiasis PAD 50-70 ICA stenosis 2012 - Current Medication List Current Medications: Active Medications Alprazolam (Xanax -) 0.25 mg PO Q8H PRN PRN Reason: ANXIETY Last Admin: 02/21/18 04:05 Dose: 0.25 mg Sodium Chloride (Normal Saline -) 1,000 mls @ 83 mls/hr IV ASDIR [facility] Last Admin: 02/22/18 05:27 Dose: 83 mls/hr Lactated Ringer's (Lactated Ringers Solution) 1,000 ml in 1,000 mls @ 125 mls/ hr IV ASDIR [facility] Last Admin: 02/21/18 21:23 Dose: 125 mls/hr Metoprolol Succinate (Toprol Xl -) 25 mg PO DAILY [facility] Last Admin: 02/23/18 10:33 Dose: 25 mg Pantoprazole Sodium (Protonix -) 20 mg PO DAILY [facility] Last Admin: 02/23/18 10:33 Dose: 20 mg Prednisone (Deltasone -) 40 mg PO DAILY [facility] Last Admin: 02/23/18 10:32 Dose: 40 mg Quetiapine Fumarate (Seroquel -) 25 mg PO HS [facility] Last Admin: 02/22/18 21:54 Dose: 25 mg - Objective Vital Signs: Vital Signs Temperature 98.6 F 02/23/18 10:00 Pulse Rate 88 02/23/18 10:00 Respiratory Rate 20 02/23/18 10:00 Blood Pressure 150/80 02/23/18 10:00 O2 Sat by Pulse Oximetry (%) 97 02/23/18 09:00 Eyes: Yes: WNL, Conjunctiva Clear, EOM Intact HENT: Yes: WNL, Atraumatic, Normocephalic Neck: Yes: WNL, Supple, Trachea Midline Cardiovascular: Yes: WNL, Regular Rate and Rhythm Respiratory: Yes: WNL, Regular, CTA Bilaterally Gastrointestinal: Yes: WNL, Normal Bowel Sounds Genitourinary: Yes: WNL Musculoskeletal: Yes: WNL Extremities: Yes: WNL Edema: No Integumentary: Yes: WNL Neurological: Yes: WNL, Alert, Oriented ...Motor Strength: WNL Psychiatric: Yes: WNL Labs: CBC, BMP 02/22/18 10:41 02/22/18 10:41 INR, PTT INR 1.14 (0.83-1.09) H 02/21/18 05:09 Problem List - Problems (1) Anemia requiring transfusions Code(s): D64.9 - ANEMIA, UNSPECIFIED (2) Anxiety disorder Code(s): F41.9 - ANXIETY DISORDER, UNSPECIFIED (3) Choledocholithiasis Code(s): K80.50 - CALCULUS OF BILE DUCT W/O CHOLANGITIS OR CHOLECYST W/O OBST (4) Chronic lymphocytic leukemia Code(s): C91.90 - LYMPHOID LEUKEMIA, UNSPECIFIED NOT HAVING ACHIEVED REMISSION (5) Fever Code(s): R50.9 - FEVER, UNSPECIFIED (6) Hemolytic anemia Code(s): D58.9 - HEREDITARY HEMOLYTIC ANEMIA, UNSPECIFIED (7) Hydronephrosis Code(s): N13.30 - UNSPECIFIED HYDRONEPHROSIS (8) Jaundice Code(s): R17 - UNSPECIFIED JAUNDICE (9) Nephrolithiasis Code(s): N20.0 - CALCULUS OF KIDNEY (10) Scleral icterus Code(s): R17 - UNSPECIFIED JAUNDICE Assessment/Plan neutropenia anemia hemolisis cholelithiasis htn ECHO nl EF Plan cardiac dyson stable cont present rx
[2018-02-23 15:55] LABS: BASO % 0.6 % (0-2.0); EOS % 2.1 % (0-4.5); HEMATOCRIT 24.2 % (32.4-45.2); HEMOGLOBIN 8.1 GM/dL (10.7-15.3); LYMPH % 20.1 % (8-40); MCH 27.2 pg (25.7-33.7); MCHC 33.6 g/dl (32.0-36.0); MEAN CELL VOLUME 80.9 fl (80-96); MEAN PLT VOLUME 9.1 fl (7.5-11.1); MONO % 1.7 % (3.8-10.2); NEUT % 75.5 % (42.8-82.8); PLATELET COUNT 167 K/MM3 (134-434); RBC 2.99 M/mm3 (3.60-5.2); RDW 23.5 % (11.6-15.6); WHITE BLOOD COUNT 2.3 K/mm3 (4.0-10.0)
[2018-02-23 16:09] LABS: ALBUMIN 2.8 g/dl (3.4-5.0); ALK PHOS 62 U/L (45-117); ANION GAP 9 MMOL/L (8-16); BILIRUBIN,TOTAL 1.3 mg/dL (0.2-1); BLOOD UREA NITROGEN 55 mg/dL (7-18); CALCIUM 8.5 mg/dL (8.5-10.1); CHLORIDE 103 mmol/L (98-107); CO2 28 mmol/L (21-32); CREATININE 1.1 mg/dL (0.55-1.3); GLUCOSE,RANDOM 231 mg/dL (74-106); POTASSIUM 4.2 mmol/L (3.5-5.1); SGOT/AST 27 U/L (15-37); SGPT/ALT 44 U/L (13-61); SODIUM 139 mmol/L (136-145); TOT PROT 5.3 g/dl (6.4-8.2)
[2018-02-23 18:38] LABS: ANISOCYTOSIS 3+; PLATELET ESTIMATE ADEQUATE; TARGET CELLS 1+; TEAR DROP CELLS 1+
[2018-02-23] MEDS: QUEtiapine FUMARATE 25 MG TABLET (FP) PO SCH (22:36)
--- NOTE | 2018-02-24 06:51 | PN ---
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, Physician Chief Complaint: in bed NAD awake alert denies any c.o (denies pain, bleeding) had diarrhea yesterday spoke with nurse few times who confirmed no blood; this am had one episode of blood tinged diarrhea and dark stools but pt denies any c/ o said she feels good and wants to go home. Hg 5 from 8 yesterday; d/w pt, daughter Dayana; d/w GI and heme - Current Medication List Current Medications: Active Medications Alprazolam (Xanax -) 0.25 mg PO Q8H PRN PRN Reason: ANXIETY Last Admin: 02/21/18 04:05 Dose: 0.25 mg Sodium Chloride (Normal Saline -) 1,000 mls @ 83 mls/hr IV ASDIR [facility] Last Admin: 02/23/18 09:30 Dose: Not Given Lactated Ringer's (Lactated Ringers Solution) 1,000 ml in 1,000 mls @ 125 mls/ hr IV ASDIR [facility] Last Admin: 02/21/18 21:23 Dose: 125 mls/hr Metoprolol Succinate (Toprol Xl -) 25 mg PO DAILY [facility] Last Admin: 02/23/18 10:33 Dose: 25 mg Pantoprazole Sodium (Protonix -) 20 mg PO DAILY [facility] Last Admin: 02/23/18 10:33 Dose: 20 mg Prednisone (Deltasone -) 40 mg PO DAILY [facility] Last Admin: 02/23/18 10:32 Dose: 40 mg Quetiapine Fumarate (Seroquel -) 25 mg PO HS [facility] Last Admin: 02/23/18 22:36 Dose: 25 mg - Objective Vital Signs: Vital Signs Temperature 98.2 F 02/24/18 06:00 Pulse Rate 125 H 02/24/18 06:00 Respiratory Rate 16 02/24/18 06:00 Blood Pressure 124/59 L 02/24/18 06:00 O2 Sat by Pulse Oximetry (%) 97 02/23/18 21:00 Constitutional: Yes: No Distress, Calm Eyes: Yes: Conjunctiva Clear HENT: Yes: Atraumatic Neck: Yes: Supple Cardiovascular: Yes: Regular Rate and Rhythm Respiratory: Yes: CTA Bilaterally Gastrointestinal: Yes: Soft. No: Tenderness Genitourinary: No: CVA Tenderness - Left, CVA Tenderness - Right, Hematuria Musculoskeletal: No: Joint Stiffness, Joint Swelling Extremities: No: Cold, Cool, Cyanosis Edema: No Integumentary: Yes: Bruising (better). No: Rash, Venous Stasis Changes Neurological: Yes: WNL, Alert, Oriented ...Motor Strength: WNL Psychiatric: Yes: WNL, Alert, Oriented. No: Agitated, Suicidal Ideation Labs: CBC, BMP 02/23/18 15:15 02/23/18 15:15 INR, PTT INR 1.14 (0.83-1.09) H 02/21/18 05:09 - ....Imaging Other: Report Reviewed Assessment/Plan The patient is a 72-year-old female, with a past medical history of HTN, CLL ( not on any treatment), thalassemia, anxiety, kidney stones, gallstones, admitted with severe anemia and neutropenia, sepsis CBD stones, gallstones and renal stones drop in H&H GI bleed not on any blood thinners; d/w GI and heme will transfuse 2 U PRBC;f/u labs; check CDiff stools; heme f/u - will need bone marrow biopsy; taper steroids? s/p fever was on broad spectrum ATB IV per ID, stopped yesterday per ID surgery f/u for gallstones, cholecystectomy d/w dr Yates - next week if pt stable; ARF/CRF renal stones and mild hydronephrosis - renal scan noted close labs f/u cardio f/u psych f/u falls decubs DVT pfx d.w pot and staff; no sq heparin b/o severe anemia; she is ambulatory prognosis guarded d/w pt and staff d/w daughter
[2018-02-24 07:26] LABS: BASO % 0.5 % (0-2.0); EOS % 0.2 % (0-4.5); HEMATOCRIT 15.2 % (32.4-45.2); LYMPH % 63.1 % (8-40); MCH 27.4 pg (25.7-33.7); MCHC 33.2 g/dl (32.0-36.0); MEAN CELL VOLUME 82.3 fl (80-96); MEAN PLT VOLUME 8.4 fl (7.5-11.1); MONO % 1.5 % (3.8-10.2); NEUT % 34.7 % (42.8-82.8); PLATELET COUNT 136 K/MM3 (134-434); RBC 1.85 M/mm3 (3.60-5.2); RDW 23.6 % (11.6-15.6); WHITE BLOOD COUNT 3.2 K/mm3 (4.0-10.0)
[2018-02-24 07:29] LABS: HEMOGLOBIN 5.1 GM/dL (10.7-15.3)
[2018-02-24 08:03] LABS: ALBUMIN 2.3 g/dl (3.4-5.0); ALK PHOS 51 U/L (45-117); AMYLASE 193 U/L (25-115); ANION GAP 7 MMOL/L (8-16); BLOOD UREA NITROGEN 71 mg/dL (7-18); CALCIUM 8.2 mg/dL (8.5-10.1); CHLORIDE 104 mmol/L (98-107); CO2 30 mmol/L (21-32); CREATININE 1.2 mg/dL (0.55-1.3); GLUCOSE,RANDOM 196 mg/dL (74-106); LIPASE 326 U/L (73-393); POTASSIUM 4.7 mmol/L (3.5-5.1); SGOT/AST 18 U/L (15-37); SGPT/ALT 38 U/L (13-61); SODIUM 141 mmol/L (136-145); TOT PROT 4.3 g/dl (6.4-8.2)
[2018-02-24 10:24] LABS: ANISOCYTOSIS 2+; MACROCYTOSIS 1+; OVALOCYTE 2+; PLATELET ESTIMATE DECREASED; TARGET CELLS 1+; TEAR DROP CELLS 1+
[2018-02-24] MEDS: predniSONE 20 MG TABLET (UD) PO SCH (10:50)
[2018-02-24] MEDS: PANTOPRAZOLE 20 MG TABLET (FP) PO SCH (10:50)
[2018-02-24] MEDS: metoPROLOL SUCCINATE 25 MG TAB.SR.24H (FP) PO SCH (10:50)
--- NOTE | 2018-02-24 11:15 | PN ---
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 (short form) - Note 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: Renal follow up for EBER Vital Signs Temperature 98.2 F 02/24/18 06:00 Pulse Rate 125 H 02/24/18 06:00 Respiratory Rate 16 02/24/18 06:00 Blood Pressure 124/59 L 02/24/18 06:00 O2 Sat by Pulse Oximetry (%) 97 02/23/18 21:00 Intake & Output 02/21/18 02/22/18 02/23/18 02/24/18 23:59 23:59 23:59 23:59 Intake Total 2628 1730 350 Balance 2628 1730 350 CBC, BMP 02/24/18 06:00 02/24/18 06:00 Current Medications Alprazolam (Xanax -) 0.25 mg PO Q8H PRN PRN Reason: ANXIETY Last Admin: 02/21/18 04:05 Dose: 0.25 mg Sodium Chloride (Normal Saline -) 1,000 mls @ 83 mls/hr IV [facility] Last Admin: 02/23/18 09:30 Dose: Not Given Lactated Ringer's (Lactated Ringers Solution) 1,000 ml in 1,000 mls @ 125 mls/ hr IV [facility] Last Admin: 02/21/18 21:23 Dose: 125 mls/hr Metoprolol Succinate (Toprol Xl -) 25 mg PO DAILY [facility] Last Admin: 02/24/18 10:50 Dose: 25 mg Pantoprazole Sodium (Protonix -) 20 mg PO DAILY [facility] Last Admin: 02/24/18 10:50 Dose: 20 mg Prednisone (Deltasone -) 40 mg PO DAILY [facility] Last Admin: 02/24/18 10:50 Dose: 40 mg Quetiapine Fumarate (Seroquel -) 25 mg PO HS [facility] Last Admin: 02/23/18 22:36 Dose: 25 mg 72-year-old female, with a past medical history of HTN, CLL,Thalassemia, anxiety , kidney stones, gallstones admitted with facial swelling, worsening icterus. #EBER secondary to unilateral obstruction with staghorn calculi #Facial Swelling w/o albuminuira #Anemia/CLL Tr Duran DO
--- NOTE | 2018-02-24 11:53 | PN ---
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 (short form) - Note 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: Renal follow up for EBER Pt seen and examined at the bedside awake and alert Hgb noted to have droped to 5.1 this am nurse reported dark stools pt denies any abd pain, dizziness, cp, sob or dark stools making urine Vital Signs Temperature 98.2 F 02/24/18 06:00 Pulse Rate 125 H 02/24/18 06:00 Respiratory Rate 16 02/24/18 06:00 Blood Pressure 124/59 L 02/24/18 06:00 O2 Sat by Pulse Oximetry (%) 97 02/23/18 21:00 Intake & Output 02/21/18 02/22/18 02/23/18 02/24/18 23:59 23:59 23:59 23:59 Intake Total 2628 1730 350 Balance 2628 1730 350 NAD awake and alert no LE edema CBC, BMP 02/24/18 06:00 02/24/18 06:00 Current Medications Alprazolam (Xanax -) 0.25 mg PO Q8H PRN PRN Reason: ANXIETY Last Admin: 02/21/18 04:05 Dose: 0.25 mg Sodium Chloride (Normal Saline -) 1,000 mls @ 83 mls/hr IV ASDIR [facility] Last Admin: 02/23/18 09:30 Dose: Not Given Lactated Ringer's (Lactated Ringers Solution) 1,000 ml in 1,000 mls @ 125 mls/ hr IV ASDIR [facility] Last Admin: 02/21/18 21:23 Dose: 125 mls/hr Metoprolol Succinate (Toprol Xl -) 25 mg PO DAILY [facility] Last Admin: 02/24/18 10:50 Dose: 25 mg Pantoprazole Sodium (Protonix -) 20 mg PO DAILY [facility] Last Admin: 02/24/18 10:50 Dose: 20 mg Prednisone (Deltasone -) 40 mg PO DAILY [facility] Last Admin: 02/24/18 10:50 Dose: 40 mg Quetiapine Fumarate (Seroquel -) 25 mg PO HS [facility] Last Admin: 02/23/18 22:36 Dose: 25 mg 72-year-old female, with a past medical history of HTN, CLL,Thalassemia, anxiety , kidney stones, gallstones admitted with facial swelling, worsening icterus. #EBER secondary to unilateral obstruction with staghorn calculi #Acute Anemia/GIB #CLL Renal function now improved and stable Renal scan did show functional obstruction urology following PRBC transfusion and GI work up to be done trend renal function and electrolytes Tr Duran DO
--- NOTE | 2018-02-24 12:47 | PN ---
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 (short form) - Note 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: PROGRESS NOTE FOR HEMATOLOGY/ONCOLOGY Patient seen and examined at bedside. Patient had bloody dark diarrhea with hgb now 5.1 Patient was dizzy when standing up to go use the restroom GI informed by PCP and patient is to be transfused 2 PRBC's Remains Neutropenic, etiology still unclear Vital Signs Temperature 97.9 F 02/24/18 10:00 Pulse Rate 108 H 02/24/18 10:00 Respiratory Rate 16 02/24/18 10:00 Blood Pressure 114/52 L 02/24/18 10:00 O2 Sat by Pulse Oximetry (%) 97 02/23/18 21:00 PHYSICAL EXAMINATION: GENERAL: Awake, alert, pale, oriented x3 MOUTH: No oral thrush. moist mucous membranes HEART: Tachycardic with Regular rhythm, 2/6 WINDY LUNGS: CTA B/L ABDOMEN: Soft, nontender, nondistended EXTREMITIES: No peripheral edema Laboratory Tests 02/24/18 06:00 02/24/18 06:00 02/24/18 02/24/18 06:00 06:00 Absolute Neuts (auto) 1.1 L C-Reactive Protein 0.6 H Total Protein 4.3 L Albumin 2.3 L Total Amylase 193 H Lipase 326 ASSESSMENT AND PLAN: Patient is a 72 year old female with a PMHx of CLL (on no trestment) who presented for facial swelling, jaundice and blood work revealed profound anemia with Hgb 3.8, neutropenia with WBC of 1.9. Problem List: CLL HTN Neutropenia Anemia of Chronic Disease Choledocolithiasis Hydronephrosis Lymphadenopathy Possible sepsis with febrile neutropenia GI Bleed Acute blood loss anemia PLAN: -Patient remains neutropenic and now severe anemia with Hgb 5.1 today. GI to evaluate patient and have patient sign consent for EGD procedure. -Plans to do bone marrow biopsy on Wednesday (02/25) but will hold off for now as patient is likely having a GI bleed. -Continue to monitor CBC -Neutropenia precautions
--- NOTE | 2018-02-24 20:05 | PN ---
GI 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 Subjective: GI NOte. Today's events are noted. Has developed melena and Hb has fallen to 5.1. NO hematemesis. No pain. LFTs remains normal. Tracy is again confused and pulled her IV out before receiving her 2n uit of PRBCs. EGD is therefore not feasible tonight as she needs resuscitation. I discussed the situation with her daughter, Giacomo. - Objective Vital Signs: Vital Signs Temperature 98.2 F 02/24/18 12:00 Pulse Rate 98 H 02/24/18 12:00 Respiratory Rate 18 02/24/18 12:00 Blood Pressure 107/43 L 02/24/18 12:00 O2 Sat by Pulse Oximetry (%) 95 02/24/18 09:00 Laboratory Tests 02/22/18 02/22/18 02/23/18 10:41 10:41 15:15 Hgb 10.3 L 8.1 L Plt Count BUN 38 H Creatinine 1.4 H Total Bilirubin AST ALT Alkaline Phosphatase 02/23/18 02/24/18 02/24/18 15:15 06:00 06:00 Hgb 5.1 L* Plt Count 136 BUN 55 H 71 H Creatinine 1.1 1.2 Total Bilirubin 1.0 AST 18 ALT 38 Alkaline Phosphatase 51 Constitutional: Anxious, Other (pale, confused) Labs: INR, PTT INR 1.14 (0.83-1.09) H 02/21/18 05:09 Assessment/Plan UGI bleed, possibly from the sphincterotomy site Problem List - Problems (1) GI (gastrointestinal hemorrhage) Assessment/Plan: Suspect bleeding from the sphincterotomy. She may alternatively have bleeding from a stress gastritis or ulcer. I have proposed an EGD to control the hemorrhage. Given her confusion the will need to consent so I have asked the daughter have him come to the hospital at 9AM tomorrow. Code(s): K92.2 - GASTROINTESTINAL HEMORRHAGE, UNSPECIFIED (2) Choledocholithiasis Code(s): K80.50 - CALCULUS OF BILE DUCT W/O CHOLANGITIS OR CHOLECYST W/O OBST (3) Fever Code(s): R50.9 - FEVER, UNSPECIFIED (4) Chronic lymphocytic leukemia Code(s): C91.90 - LYMPHOID LEUKEMIA, UNSPECIFIED NOT HAVING ACHIEVED REMISSION (5) Hemolytic anemia Code(s): D58.9 - HEREDITARY HEMOLYTIC ANEMIA, UNSPECIFIED (6) Anxiety disorder Code(s): F41.9 - ANXIETY DISORDER, UNSPECIFIED (7) Nephrolithiasis Code(s): N20.0 - CALCULUS OF KIDNEY (8) Hydronephrosis Code(s): N13.30 - UNSPECIFIED HYDRONEPHROSIS (9) Anemia requiring transfusions Code(s): D64.9 - ANEMIA, UNSPECIFIED (10) Jaundice Code(s): R17 - UNSPECIFIED JAUNDICE
[2018-02-24 20:21] LABS: BASO % 0.6 % (0-2.0); EOS % 0.1 % (0-4.5); HEMATOCRIT 17.7 % (32.4-45.2); LYMPH % 43.5 % (8-40); MCH 29.3 pg (25.7-33.7); MCHC 35.5 g/dl (32.0-36.0); MEAN CELL VOLUME 82.5 fl (80-96); MEAN PLT VOLUME 8.8 fl (7.5-11.1); MONO % 1.4 % (3.8-10.2); NEUT % 54.4 % (42.8-82.8); PLATELET COUNT 153 K/MM3 (134-434); RBC 2.15 M/mm3 (3.60-5.2); RDW 17.8 % (11.6-15.6); WHITE BLOOD COUNT 2.1 K/mm3 (4.0-10.0)
[2018-02-24 20:27] LABS: HEMOGLOBIN 6.3 GM/dL (10.7-15.3)
[2018-02-24 20:39] LABS: ALBUMIN 2.2 g/dl (3.4-5.0); ALK PHOS 35 U/L (45-117); ANION GAP 10 MMOL/L (8-16); BILIRUBIN,TOTAL 1.3 mg/dL (0.2-1); BLOOD UREA NITROGEN 85 mg/dL (7-18); CALCIUM 8.1 mg/dL (8.5-10.1); CHLORIDE 108 mmol/L (98-107); CO2 26 mmol/L (21-32); CREATININE 1.4 mg/dL (0.55-1.3); GLUCOSE,RANDOM 233 mg/dL (74-106); POTASSIUM 4.8 mmol/L (3.5-5.1); SGOT/AST 14 U/L (15-37); SGPT/ALT 31 U/L (13-61); SODIUM 143 mmol/L (136-145); TOT PROT 4.2 g/dl (6.4-8.2)
[2018-02-24 22:07] LABS: INR 1.15 (0.83-1.09); PROTHROMBIN TIME (PATIENT) 13.6 SEC (9.7-13.0)
[2018-02-24] MEDS: QUEtiapine FUMARATE 25 MG TABLET (FP) PO SCH (22:45)
[2018-02-24 23:04] LABS: ANISOCYTOSIS 2+; PLATELET ESTIMATE ADEQUATE
--- NOTE | 2018-02-25 06:20 | FALL ---
Fall Exam - Event Witnessed fall: Yes Location of Fall: Patient Room Fall from: While ambulating - Pre-Fall Mental Status: Alert, Disoriented Current Medications: Current Medications Generic Name Dose Route Start Last Admin Trade Name Eloise PRN Reason Stop Dose Admin Alprazolam 0.25 mg 02/16/18 12:44 02/21/18 04:05 Xanax - PO 0.25 mg Q8H PRN Administration ANXIETY Lactated Ringer's 1,000 ml in 1,000 mls @ 125 mls/hr 02/22/18 03:45 02/21/18 21:23 Lactated Ringers Solution IV 125 mls/hr ASDIR [facility] Administration Metoprolol Succinate 25 mg 02/16/18 10:00 02/24/18 10:50 Toprol Xl - PO 25 mg DAILY [facility] Administration Pantoprazole Sodium 20 mg 02/15/18 18:45 02/24/18 10:50 Protonix - PO 20 mg DAILY [facility] Administration Prednisone 40 mg 02/20/18 10:00 02/24/18 10:50 Deltasone - PO 40 mg DAILY [facility] Administration Quetiapine Fumarate 25 mg 02/18/18 22:00 02/24/18 22:45 Seroquel - PO 25 mg HS [facility] Administration - Post-Fall Patient Outcome: No Injury Exam Findings: Alert, Awake, Oriented to name. HEENT- Atraumatic, Normocephalic , Icteric Sclera, PERRL. Neck- supple, trachea midline. Lungs- CTAB, Heart- SI, S2, +M, No G/R, Abdomen- soft, BS present, Extremities- FROM, non-tender, Hip/ Pelvis- no tender, no obvious deformity. Treatment: None Vital Signs: Vital Signs Temperature 98.0 F 02/24/18 21:15 Pulse Rate 108 H 02/24/18 21:15 Respiratory Rate 18 02/24/18 21:15 Blood Pressure 114/57 L 02/24/18 21:15 O2 Sat by Pulse Oximetry (%) 95 02/24/18 21:00 LOC Post-Fall: Unchanged, Oriented Identify factors for HIGH RISK for Head Injury: None of the above
--- NOTE | 2018-02-25 07:13 | PN ---
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, Physician Chief Complaint: events noted s/p 2 U PRBC transfused yesterday (pt pulled out her IV yesterday morning, I spoke with pt's daughter who spoke with pt and eventually she allowed another peripheral IV placement, and pt transfused later during the day); last evening around 6 pm I spoke with pt's nurse who said pt had just finished 1st unit of blood and was preparing for second unit PRBC, VSS. I noted in chart that early this am pt got OOB on her own and fell on her knees while walking, she was seen by hospitalist, no injuries noted no LOC no head trauma per note This am Hg 5.6 d/w pt's nurse pt had another black BM this am, BP 96/60 HR 130, I saw pt on 8w awake alert NAD looking pale but she denied any c/o and she said she feels fine and wants to go home. I explained her condition prognosis and that she needs blood products transfusion and EGD now to stop the bleed and her condition is life threatening; patient agreed for blood and blood products but regarding EGD she said "maybe latter" I called blood bank and activated stat massive blood transfusion protocol, also called ICU and spoke with ICU resident who accepted pt for transfer to ICU, will be transferred soon. d/w GI dr Macias who also ordered reglan and NPO for EGD today; d/w meka Garcia and blood bank d/w pt, pt's daughter Dayana and pt's at bedside - prognosis critical ; they understood, will sign consent for EGD now. d/w nurse metoprolol held; prednisone stopped (d/w dr Garcia heme OK to stop). Continue PPIs IV and NPO. t time 75 minutes - Current Medication List Current Medications: Active Medications Alprazolam (Xanax -) 0.25 mg PO Q8H PRN PRN Reason: ANXIETY Last Admin: 02/21/18 04:05 Dose: 0.25 mg Lactated Ringer's (Lactated Ringers Solution) 1,000 ml in 1,000 mls @ 125 mls/ hr IV ASDIR [facility] Last Admin: 02/21/18 21:23 Dose: 125 mls/hr Metoprolol Succinate (Toprol Xl -) 25 mg PO DAILY [facility] Last Admin: 02/24/18 10:50 Dose: 25 mg Pantoprazole Sodium (Protonix -) 20 mg PO DAILY [facility] Last Admin: 02/24/18 10:50 Dose: 20 mg Prednisone (Deltasone -) 40 mg PO DAILY [facility] Last Admin: 02/24/18 10:50 Dose: 40 mg Quetiapine Fumarate (Seroquel -) 25 mg PO HS [facility] Last Admin: 02/24/18 22:45 Dose: 25 mg - Objective Vital Signs: Vital Signs Temperature 98.0 F 02/24/18 21:15 Pulse Rate 108 H 02/24/18 21:15 Respiratory Rate 18 02/24/18 21:15 Blood Pressure 114/57 L 02/24/18 21:15 O2 Sat by Pulse Oximetry (%) 95 02/24/18 21:00 Constitutional: Yes: No Distress, Calm, Pallor Eyes: Yes: Conjunctiva Clear HENT: Yes: Atraumatic Neck: Yes: Supple Cardiovascular: Yes: Regular Rate and Rhythm Respiratory: Yes: CTA Bilaterally Gastrointestinal: Yes: Soft. No: Distention, Tenderness Genitourinary: No: CVA Tenderness - Left, CVA Tenderness - Right, Hematuria Musculoskeletal: No: Joint Stiffness, Joint Swelling Extremities: No: Cold, Cool, Cyanosis Edema: No Integumentary: Yes: Bruising. No: Venous Stasis Changes Neurological: Yes: WNL, Alert, Confusion. No: Oriented ...Motor Strength: WNL Psychiatric: Yes: WNL, Alert. No: Oriented, Agitated, Suicidal Ideation Labs: CBC, BMP 02/24/18 19:00 02/24/18 19:00 INR, PTT INR 1.15 (0.83-1.09) H 02/24/18 19:00 - ....Imaging Other: Report Reviewed Assessment/Plan The patient is a 72-year-old female, with a past medical history of HTN, CLL ( not on any treatment), thalassemia, anxiety, kidney stones, gallstones, admitted with severe anemia and neutropenia, sepsis CBD stones, gallstones and renal stones s/p EGD ERCP on 02/21 UGI bleed black stools drop in H&H despite PRBC d/w GI dr Giraldo and heme dr Garcia and initiated stat massive blood transfusion protocol; transfer to ICU; EGD today NPO; IV PPI, IV reglan check labs q2h for now bone marrow biopsy and cholecystectomy postponed - when stable cardio f/u , psych f/u falls decubs DVT pfx prognosis critical d/w pt and staff d/w daughter and pt's t time 75 min
--- NOTE | 2018-02-25 07:35 | HOSP ---
Subjective - Review of Symptoms Events since last encounter: Hospitalist Encounter Notified by RN that the patient had a witnessed fall in her room onto her knees. No head injury, No LOC Subjective: Arrived to bedside patient is alert, awake and oriented to name. Patient has no complaints PE performed see EMR Plan: Consider [place] Continue current regimen Maintain Fall Precautions Physical Examination Vital Signs: Vital Signs Temperature 98.0 F 02/24/18 21:15 Pulse Rate 108 H 02/24/18 21:15 Respiratory Rate 18 02/24/18 21:15 Blood Pressure 114/57 L 02/24/18 21:15 O2 Sat by Pulse Oximetry (%) 95 02/24/18 21:00 Constitutional: Yes: No Distress, Calm, Pallor, Thin Eyes: Yes: Conjunctiva Clear, EOM Intact, PERRL, Sclera Icterus HENT: Yes: WNL, Atraumatic, Normocephalic Neck: Yes: WNL, Supple, Trachea Midline Cardiovascular: Yes: Tachycardia, Murmur, S1, S2 Respiratory: Yes: WNL, Regular, CTA Bilaterally Gastrointestinal: Yes: Normal Bowel Sounds, Soft Breast(s): Yes: WNL Musculoskeletal: Yes: WNL Extremities: Yes: WNL Edema: No Peripheral Pulses WNL: Yes Integumentary: Yes: Bruising (ecchymotic to arms, chin old bruising to L-knee) Neurological: Yes: Alert, Confusion, Cran Nerves II-XII Intact Psychiatric: Yes: Alert Labs: CBC, BMP 02/24/18 19:00 02/24/18 19:00 Laboratory Results - last 24 hr 02/24/18 02/24/18 02/24/18 06:00 06:00 10:00 WBC RBC Hgb Hct MCV MCH MCHC RDW Plt Count MPV Absolute Neuts (auto) Neutrophils % Neutrophils % (Manual) 39.0 L Band Neutrophils % 1.0 Lymphocytes % Lymphocytes % (Manual) 57.0 H D Monocytes % Monocytes % (Manual) 0 L D Eosinophils % Eosinophils % (Manual) 1.0 Basophils % Basophils % (Manual) 0.0 Myelocytes % (Man) 2 D Promyelocytes % (Man) 0 Blast Cells % (Manual) 0 Nucleated RBC % Metamyelocytes 0 Hypochromia 1+ Platelet Estimate Decreased Polychromasia 0 Poikilocytosis 1+ Basophilic Stippling Anisocytosis 2+ Microcytosis 2+ Macrocytosis 1+ Target Cells 1+ Tear Drop Cells 1+ Ovalocytes 2+ Schistocytes 2+ PT with INR INR Sodium 141 Potassium 4.7 Chloride 104 Carbon Dioxide 30 Anion Gap 7 L BUN 71 H Creatinine 1.2 Creat Clearance w eGFR 44.16 Random Glucose 196 H Calcium 8.2 L Total Bilirubin 1.0 AST 18 ALT 38 Alkaline Phosphatase 51 C-Reactive Protein 0.6 H Total Protein 4.3 L Albumin 2.3 L Total Amylase 193 H Lipase 326 Blood Type O POSITIVE Antibody Screen Negative Crossmatch See Detail 02/24/18 02/24/18 02/24/18 19:00 19:00 19:00 WBC 2.1 L RBC 2.15 L Hgb 6.3 L* Hct 17.7 L D MCV 82.5 MCH 29.3 MCHC 35.5 RDW 17.8 H Plt Count 153 MPV 8.8 Absolute Neuts (auto) 1.1 L Neutrophils % 54.4 D Neutrophils % (Manual) 67.0 Band Neutrophils % 0.0 Lymphocytes % 43.5 H D Lymphocytes % (Manual) 31.0 D Monocytes % 1.4 L Monocytes % (Manual) 0 L Eosinophils % 0.1 Eosinophils % (Manual) 2.0 D Basophils % 0.6 Basophils % (Manual) 0.0 Myelocytes % (Man) Promyelocytes % (Man) Blast Cells % (Manual) Nucleated RBC % 9 H Metamyelocytes Hypochromia 2+ Platelet Estimate Adequate Polychromasia Poikilocytosis 2+ Basophilic Stippling 2+ Anisocytosis 2+ Microcytosis Macrocytosis Target Cells Tear Drop Cells Ovalocytes Schistocytes PT with INR 13.60 H INR 1.15 H Sodium 143 Potassium 4.8 Chloride 108 H Carbon Dioxide 26 Anion Gap 10 BUN 85 H Creatinine 1.4 H Creat Clearance w eGFR 36.96 Random Glucose 233 H Calcium 8.1 L Total Bilirubin 1.3 H AST 14 L ALT 31 Alkaline Phosphatase 35 L C-Reactive Protein Total Protein 4.2 L Albumin 2.2 L Total Amylase Lipase Blood Type Antibody Screen Crossmatch Intake & Output 02/22/18 02/23/18 02/24/18 02/25/18 23:59 23:59 23:59 23:59 Intake Total 1730 350 Balance 1730 350 Current Medications Generic Name Dose Route Start Last Admin Trade Name Freq PRN Reason Stop Dose Admin Alprazolam 0.25 mg 02/16/18 12:44 02/21/18 04:05 Xanax - PO 0.25 mg Q8H PRN Administration ANXIETY Lactated Ringer's 1,000 ml in 1,000 mls @ 125 mls/hr 02/22/18 03:45 02/21/18 21:23 Lactated Ringers Solution IV 125 mls/hr ASDIR RYAN Administration Metoprolol Succinate 25 mg 02/16/18 10:00 02/24/18 10:50 Toprol Xl - PO 25 mg DAILY RYAN Administration Pantoprazole Sodium 20 mg 02/15/18 18:45 02/24/18 10:50 Protonix - PO 20 mg DAILY RYAN Administration Prednisone 40 mg 02/20/18 10:00 02/24/18 10:50 Deltasone - PO 40 mg DAILY RYAN Administration Quetiapine Fumarate 25 mg 02/18/18 22:00 02/24/18 22:45 Seroquel - PO 25 mg HS RYAN Administration Vital Signs - 24 hr 02/24/18 02/24/18 02/24/18 09:00 10:00 12:00 Temperature 97.9 F 98.2 F Pulse Rate 108 H 98 H Respiratory 18 16 18 Rate Blood Pressure 114/52 L 107/43 L O2 Sat by Pulse 95 Oximetry (%) 02/24/18 02/24/18 02/25/18 21:00 21:15 06:00 Temperature 98.0 F 98 F Pulse Rate 108 H 98 H Respiratory 18 20 Rate Blood Pressure 114/57 L 113/52 L O2 Sat by Pulse 95 Oximetry (%) 02/25/18 06:20 Temperature 98.0 F Pulse Rate 111 H Respiratory 18 Rate Blood Pressure 116/67 O2 Sat by Pulse Oximetry (%)
[2018-02-25] MEDS ORDERED: ONDANSETRON 4 MG/2 ML VIAL IVPB PRN ×2 (08:12→18:39)
[2018-02-25 08:22] LABS: HEMATOCRIT 16.7 % (32.4-45.2); LYMPH % 34.6 % (8-40); MCH 28.6 pg (25.7-33.7); MCHC 33.6 g/dl (32.0-36.0); MEAN CELL VOLUME 85.3 fl (80-96); MEAN PLT VOLUME 8.4 fl (7.5-11.1); MONO % 2.9 % (3.8-10.2); NEUT % 61.5 % (42.8-82.8); PLATELET COUNT 128 K/MM3 (134-434); RBC 1.96 M/mm3 (3.60-5.2); RDW 14.8 % (11.6-15.6); WHITE BLOOD COUNT 2.7 K/mm3 (4.0-10.0)
--- NOTE | 2018-02-25 08:38 | PN ---
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, Physician History of Present Illness: ALert; feels weak. - Current Medication List Current Medications: Active Medications Alprazolam (Xanax -) 0.25 mg PO Q8H PRN PRN Reason: ANXIETY Last Admin: 02/21/18 04:05 Dose: 0.25 mg Lactated Ringer's (Lactated Ringers Solution) 1,000 ml in 1,000 mls @ 125 mls/ hr IV ASDIR [facility] Last Admin: 02/21/18 21:23 Dose: 125 mls/hr Metoprolol Succinate (Toprol Xl -) 25 mg PO DAILY [facility] Last Admin: 02/24/18 10:50 Dose: 25 mg Ondansetron HCl (Zofran Injection) 8 mg IVPB Q8H PRN PRN Reason: NAUSEA Last Admin: 02/25/18 08:30 Dose: 8 mg Pantoprazole Sodium (Protonix -) 20 mg PO DAILY [facility] Last Admin: 02/24/18 10:50 Dose: 20 mg Prednisone (Deltasone -) 40 mg PO DAILY [facility] Last Admin: 02/24/18 10:50 Dose: 40 mg Quetiapine Fumarate (Seroquel -) 25 mg PO HS [facility] Last Admin: 02/24/18 22:45 Dose: 25 mg - Objective Vital Signs: Vital Signs Temperature 98.0 F 02/25/18 06:20 Pulse Rate 111 H 02/25/18 06:20 Respiratory Rate 18 02/25/18 06:20 Blood Pressure 116/67 02/25/18 06:20 O2 Sat by Pulse Oximetry (%) 95 02/24/18 21:00 Constitutional: Yes: Calm Eyes: Yes: WNL HENT: Yes: WNL Cardiovascular: Yes: S1, S2 Labs: CBC, BMP 02/25/18 07:10 INR, PTT INR 1.15 (0.83-1.09) H 02/24/18 19:00 Problem List - Problems (1) Anxiety disorder Code(s): F41.9 - ANXIETY DISORDER, UNSPECIFIED (2) Chronic lymphocytic leukemia Code(s): C91.90 - LYMPHOID LEUKEMIA, UNSPECIFIED NOT HAVING ACHIEVED REMISSION (3) HTN (hypertension) Assessment/Plan: on metoprolol ER. ECHO: normal LVEF. Code(s): I10 - ESSENTIAL (PRIMARY) HYPERTENSION (4) Pancytopenia Code(s): D61.818 - OTHER PANCYTOPENIA (5) Diastolic CHF Code(s): I50.30 - UNSPECIFIED DIASTOLIC (CONGESTIVE) HEART FAILURE
[2018-02-25] MEDS ORDERED: PANTOPRAZOLE SODIUM 80 MG in SODIUM CHLORIDE 100 ML IVPB SCH (08:45)
[2018-02-25 08:46] LABS: HEMOGLOBIN 5.6 GM/dL (10.7-15.3)
[2018-02-25 08:57] LABS: ALK PHOS 27 U/L (45-117); AMYLASE 222 U/L (25-115); ANION GAP 11 MMOL/L (8-16); BILIRUBIN,TOTAL 1.4 mg/dL (0.2-1); CALCIUM 7.9 mg/dL (8.5-10.1); CHLORIDE 109 mmol/L (98-107); CO2 24 mmol/L (21-32); CREATININE 1.5 mg/dL (0.55-1.3); GLUCOSE,RANDOM 222 mg/dL (74-106); LIPASE 383 U/L (73-393); POTASSIUM 4.5 mmol/L (3.5-5.1); SGOT/AST 12 U/L (15-37); SGPT/ALT 26 U/L (13-61); SODIUM 143 mmol/L (136-145); TOT PROT 3.8 g/dl (6.4-8.2)
[2018-02-25 08:58] LABS: BLOOD UREA NITROGEN 112 mg/dL (7-18)
[2018-02-25 09:20] LABS: INR 1.21 (0.83-1.09); PROTHROMBIN TIME (PATIENT) 14.3 SEC (9.7-13.0)
[2018-02-25 09:22] LABS: ACTIVATED PTT 21.9 SECONDS (25.2-36.5)
[2018-02-25] MEDS ORDERED: METOCLOPRAMIDE HCL INJECTION 10 MG/2 ML VIAL IVPUSH SCH (10:00)
--- NOTE | 2018-02-25 11:25 | PN ---
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 (short form) - Note 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: Patient seen and examined Transferred to ICU for GI bleeding Received 2 units of packed cells last PM and now receiving an additional 2 units of packed cells. Hb had once again fallen to 5 gm% Last Vital Signs Temp Pulse Resp BP Pulse Ox 98.0 F 111 H 18 116/67 95 02/25/18 06:20 02/25/18 06:20 02/25/18 06:20 02/25/18 06:20 02/24/18 21:00 HEENT: FELIBERTO, EOM Intact Oropharynx: No thrush, No mucositis Neck: Supple Nodes: Without adenopathy Breasts: Without masses Cor: sinus tachycardia Lungs: Clear to P&A Abd: Soft, Normal bowel sounds, No organomegaly Ext:No significant edema Skin: No rashes, Integument intact CBC, BMP 02/25/18 07:10 02/25/18 07:10 INR, PTT INR 1.21 (0.83-1.09) H 02/25/18 07:10 Fibrinogen 147.0 mg/dL (238-498) L 02/25/18 06:00 Current Medications Generic Name Dose Route Start Last Admin Trade Name Freq PRN Reason Stop Dose Admin Alprazolam 0.25 mg 02/16/18 12:44 02/21/18 04:05 Xanax - PO 0.25 mg Q8H PRN Administration ANXIETY Chlorhexidine Gluconate 1 applic 02/25/18 22:00 Hibiclens For Decolonization - TP HS RYAN Lactated Ringer's 1,000 ml in 1,000 mls @ 125 mls/hr 02/22/18 03:45 02/21/18 21:23 Lactated Ringers Solution IV 125 mls/hr ASDIR RYAN Administration Pantoprazole Sodium 80 mg/ 100 mls @ 10 mls/hr 02/25/18 08:45 Sodium Chloride IVPB Q10H RYAN 8 MG/HR Metoclopramide HCl 10 mg 02/25/18 10:00 Reglan Injection - IVPUSH Q6H-IV RYAN Metoprolol Succinate 25 mg 02/16/18 10:00 02/24/18 10:50 Toprol Xl - PO 25 mg DAILY RYAN Administration Mupirocin 1 applic 02/25/18 10:00 Bactroban Ointment (For Decolonization) - NS 03/02/18 09:59 BID RYAN Ondansetron HCl 8 mg 02/25/18 08:12 02/25/18 08:30 Zofran Injection IVPB 8 mg Q8H PRN Administration NAUSEA Quetiapine Fumarate 25 mg 02/18/18 22:00 02/24/18 22:45 Seroquel - PO 25 mg HS RYAN Administration Impression: GI bleeding Neutropenia Anemia Thrombocytopenia CLL - recent flow cytometry with only 2% positive cells without blasts 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 Prednisone - has been discontinued.
--- NOTE | 2018-02-25 11:39 | PN ---
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, Physician History of Present Illness: The patient is a 72-year-old female, with a past medical history of HTN, CLL ( not on any treatment), thalassemia, anxiety, kidney stones, gallstones, who presents to the ED with facial swelling today. Daughter is at bedside and reports that her mother was complaining of nausea but no vomiting. Patient refused to go to the hospital. Daughter went to visit her mother before work and noted the facial swelling, which is worse under her eyes and the left-side of her face. She also reports that the patient appeared more yellow in color last week but today appears more pale. Patient was scheduled to have blood work drawn today at the hospital per Dr. Sabi Leyva orders. CLL that had so far no required therapy presents with painless jaundice noticed by her daughter. Tracy denies and abdominal pain, jaundice, pruritus , chills or fever but is very reserved in her responses. She was 101 in the ER. Tracy believes that her mother had nausea, anorexia,facila swelling, chills and notes a recent weight loss. Tracy lives with her . Giacomo the daughter informs me that her mother has been refractory to physician interventions and procedures chronically. I saw her in 2013 when a colon cancer screening was advised but she refused. She was close to have a procedure recently with Dr Wren for obstructing nephrolithiasis but refused at the last moment to proceed. Tracy denies any h/o liver disease, IVDA, transfusions and tattoos. She denies ever having had any surgery but in 2013 told me that she had a tonsillectomy and left axillary lymph node biopsy. PMH CRI HTN Hyperlipidemia Negative MIBI stress test June 2013 Nephroliyhiasis PAD 50-70 ICA stenosis 2012 - Current Medication List Current Medications: Active Medications Alprazolam (Xanax -) 0.25 mg PO Q8H PRN PRN Reason: ANXIETY Last Admin: 02/21/18 04:05 Dose: 0.25 mg Chlorhexidine Gluconate (Hibiclens For Decolonization -) 1 applic TP HS RYAN Lactated Ringer's (Lactated Ringers Solution) 1,000 ml in 1,000 mls @ 125 mls/ hr IV ASDIR RYAN Last Admin: 02/21/18 21:23 Dose: 125 mls/hr Pantoprazole Sodium 80 mg/ (Sodium Chloride) 100 mls @ 10 mls/hr IVPB Q10H RYAN Metoclopramide HCl (Reglan Injection -) 10 mg IVPUSH Q6H-IV RYAN Metoprolol Succinate (Toprol Xl -) 25 mg PO DAILY [facility] Last Admin: 02/24/18 10:50 Dose: 25 mg Mupirocin (Bactroban Ointment (For Decolonization) -) 1 applic NS BID [facility] Stop: 03/02/18 09:59 Ondansetron HCl (Zofran Injection) 8 mg IVPB Q8H PRN PRN Reason: NAUSEA Last Admin: 02/25/18 08:30 Dose: 8 mg Phytonadione (Aqua Mephyton Injection -) 5 mg SQ ONCE ONE Stop: 02/25/18 11:27 Quetiapine Fumarate (Seroquel -) 25 mg PO HS [facility] Last Admin: 02/24/18 22:45 Dose: 25 mg - Objective Vital Signs: Vital Signs Temperature 98.0 F 02/25/18 06:20 Pulse Rate 111 H 02/25/18 06:20 Respiratory Rate 18 02/25/18 06:20 Blood Pressure 116/67 02/25/18 06:20 O2 Sat by Pulse Oximetry (%) 95 02/24/18 21:00 Eyes: Yes: WNL, Conjunctiva Clear, EOM Intact HENT: Yes: WNL, Atraumatic, Normocephalic Neck: Yes: WNL, Supple, Trachea Midline Cardiovascular: Yes: WNL, Regular Rate and Rhythm Respiratory: Yes: WNL, Regular, CTA Bilaterally Gastrointestinal: Yes: WNL, Normal Bowel Sounds Genitourinary: Yes: WNL Musculoskeletal: Yes: WNL Extremities: Yes: WNL Edema: No Integumentary: Yes: WNL Neurological: Yes: WNL, Alert, Oriented ...Motor Strength: WNL Psychiatric: Yes: WNL Labs: CBC, BMP 02/25/18 07:10 INR, PTT INR 1.21 (0.83-1.09) H 02/25/18 07:10 Fibrinogen 147.0 mg/dL (238-498) L 02/25/18 06:00 Problem List - Problems (1) Anxiety disorder Code(s): F41.9 - ANXIETY DISORDER, UNSPECIFIED (2) Choledocholithiasis Code(s): K80.50 - CALCULUS OF BILE DUCT W/O CHOLANGITIS OR CHOLECYST W/O OBST (3) Chronic lymphocytic leukemia Code(s): C91.90 - LYMPHOID LEUKEMIA, UNSPECIFIED NOT HAVING ACHIEVED REMISSION (4) Fever Code(s): R50.9 - FEVER, UNSPECIFIED (5) Hemolytic anemia Code(s): D58.9 - HEREDITARY HEMOLYTIC ANEMIA, UNSPECIFIED (6) Hydronephrosis Code(s): N13.30 - UNSPECIFIED HYDRONEPHROSIS (7) Jaundice Code(s): R17 - UNSPECIFIED JAUNDICE (8) Nephrolithiasis Code(s): N20.0 - CALCULUS OF KIDNEY (9) Scleral icterus Code(s): R17 - UNSPECIFIED JAUNDICE Assessment/Plan neutropenia undergoing multiple transfusions in ICU . hemolisis cholelithiasis htn ECHO nl EF Plan cardiac dyson stable cont present rx watch for chf will use lasix if needed monitor i/o cc time spent 37 min
[2018-02-25 11:43] LABS: BASO % 0.6 % (0-2.0); EOS % 0.2 % (0-4.5); LYMPH % 28.8 % (8-40); MCH 30.4 pg (25.7-33.7); MCHC 34.7 g/dl (32.0-36.0); MEAN CELL VOLUME 87.7 fl (80-96); MEAN PLT VOLUME 8.8 fl (7.5-11.1); MONO % 3.2 % (3.8-10.2); NEUT % 67.2 % (42.8-82.8); PLATELET COUNT 81 K/MM3 (134-434); RBC 2.85 M/mm3 (3.60-5.2); RDW 14.2 % (11.6-15.6)
[2018-02-25] MEDS ORDERED: PHYTONADIONE 10 MG/1 ML AMP SQ ONE (11:45)
[2018-02-25 11:55] LABS: ANISOCYTOSIS 3+; MACROCYTOSIS 0; PLATELET ESTIMATE DECREASED; ROULEAU 1+; TEAR DROP CELLS 1+
[2018-02-25 11:57] LABS: HEMOGLOBIN 8.7 GM/dL (10.7-15.3)
--- NOTE | 2018-02-25 12:14 | PN ---
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 (short form) - Note 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: Have recommended Vitamin K-5 mg Cryoppt- 6 units FFP-2 units.
[2018-02-25] MEDS ORDERED: PT OWN MED DRAWER 7, Y5N ONE (12:51)
[2018-02-25 12:53] LABS: INR 1.27 (0.83-1.09)
[2018-02-25 12:55] LABS: ACTIVATED PTT 22.9 SECONDS (25.2-36.5)
[2018-02-25 13:16] LABS: ALK PHOS 29 U/L (45-117); ANION GAP 10 MMOL/L (8-16); BILIRUBIN,TOTAL 1.3 mg/dL (0.2-1); CALCIUM 7.9 mg/dL (8.5-10.1); CHLORIDE 110 mmol/L (98-107); CO2 25 mmol/L (21-32); CREATININE 1.5 mg/dL (0.55-1.3); GLUCOSE,RANDOM 248 mg/dL (74-106); POTASSIUM 4.3 mmol/L (3.5-5.1); SGOT/AST 16 U/L (15-37); SGPT/ALT 24 U/L (13-61); SODIUM 145 mmol/L (136-145); TOT PROT 3.7 g/dl (6.4-8.2)
[2018-02-25 13:17] LABS: BLOOD UREA NITROGEN 114 mg/dL (7-18)
--- NOTE | 2018-02-25 14:03 | PN ---
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 (short form) - Note 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: Renal follow up for EBER Vital Signs Temperature 97.7 F 02/25/18 08:20 Pulse Rate 111 H 02/25/18 08:20 Respiratory Rate 18 02/25/18 08:20 Blood Pressure 115/56 L 02/25/18 08:20 O2 Sat by Pulse Oximetry (%) 99 02/25/18 09:00 Intake & Output 02/22/18 02/23/18 02/24/18 02/25/18 23:59 23:59 23:59 23:59 Intake Total 1730 350 350 Balance 1730 350 350 CBC, BMP 02/25/18 10:59 02/25/18 11:00 Current Medications Alprazolam (Xanax -) 0.25 mg PO Q8H PRN PRN Reason: ANXIETY Last Admin: 02/21/18 04:05 Dose: 0.25 mg Chlorhexidine Gluconate (Hibiclens For Decolonization -) 1 applic TP HS [facility] Lactated Ringer's (Lactated Ringers Solution) 1,000 ml in 1,000 mls @ 125 mls/ hr IV ASDIR [facility] Last Admin: 02/21/18 21:23 Dose: 125 mls/hr Pantoprazole Sodium 80 mg/ (Sodium Chloride) 100 mls @ 10 mls/hr IVPB Q10H RYAN Metoclopramide HCl (Reglan Injection -) 10 mg IVPUSH Q6H-IV RYAN Metoprolol Succinate (Toprol Xl -) 25 mg PO DAILY [facility] Last Admin: 02/24/18 10:50 Dose: 25 mg Mupirocin (Bactroban Ointment (For Decolonization) -) 1 applic NS BID [facility] Stop: 03/02/18 09:59 Ondansetron HCl (Zofran Injection) 8 mg IVPB Q8H PRN PRN Reason: NAUSEA Last Admin: 02/25/18 08:30 Dose: 8 mg Quetiapine Fumarate (Seroquel -) 25 mg PO HS [facility] Last Admin: 02/24/18 22:45 Dose: 25 mg 72-year-old female, with a past medical history of HTN, CLL,Thalassemia, anxiety , kidney stones, gallstones admitted with facial swelling, worsening icterus. #EBER secondary to unilateral obstruction with staghorn calculi #Acute Anemia/GIB #CLL BUN/Cr rising in last 24-48 hours likely due to renal hypoprofuison in setting of acute anemia high bun due to upper GI bleed continue LR to maintain MAP > 65 Trend bun/cr levels, no indication for STEVEDORE DOCK at the present time GI following, for EGD Heme following Tr Duran DO
[2018-02-25] MEDS: LACTATED RINGERS SOLUTION 1,000 ML/1,000 ML INFUS.BAG IV SCH (14:16)
[2018-02-25] MEDS: MUPIROCIN 2% TOPICAL OINTMENT FOR DECOLONIZATION NS SCH ×2 (14:17→22:27)
--- NOTE | 2018-02-25 14:33 | PN ---
Teaching Attending Note Name of Resident: Artem Dietrich ATTENDING PHYSICIAN STATEMENT I saw and evaluated the patient. I reviewed the resident's note and discussed the case with the resident. I agree with the resident's findings and plan as documented. SUBJECTIVE: Patient seen and examined in the ICU. Transferred due to possible GI bleeding and severe anemia. Denies CP or SOB. Seen by Heme. For emergent Endoscopy today. Intake & Output 02/22/18 02/23/18 02/24/18 02/25/18 23:59 23:59 23:59 23:59 Intake Total 1730 350 350 Balance 1730 350 350 Last Vital Signs Temp Pulse Resp BP Pulse Ox 97.7 F 111 H 18 115/56 L 99 02/25/18 08:20 02/25/18 08:20 02/25/18 08:20 02/25/18 08:20 02/25/18 09:00 Active Medications Alprazolam (Xanax -) 0.25 mg PO Q8H PRN PRN Reason: ANXIETY Last Admin: 02/21/18 04:05 Dose: 0.25 mg Chlorhexidine Gluconate (Hibiclens For Decolonization -) 1 applic TP HS RYAN Lactated Ringer's (Lactated Ringers Solution) 1,000 ml in 1,000 mls @ 125 mls/ hr IV ASDIR RYAN Last Admin: 02/25/18 14:16 Dose: 125 mls/hr Pantoprazole Sodium 80 mg/ (Sodium Chloride) 100 mls @ 10 mls/hr IVPB Q10H RYAN Last Admin: 02/25/18 14:16 Dose: 10 mls/hr Metoclopramide HCl (Reglan Injection -) 10 mg IVPUSH Q6H-IV RYAN Last Admin: 02/25/18 14:17 Dose: Not Given Metoprolol Succinate (Toprol Xl -) 25 mg PO DAILY RYAN Last Admin: 02/24/18 10:50 Dose: 25 mg Mupirocin (Bactroban Ointment (For Decolonization) -) 1 applic NS BID RYAN Stop: 03/02/18 09:59 Last Admin: 02/25/18 14:17 Dose: Not Given Ondansetron HCl (Zofran Injection) 8 mg IVPB Q8H PRN PRN Reason: NAUSEA Last Admin: 02/25/18 08:30 Dose: 8 mg Quetiapine Fumarate (Seroquel -) 25 mg PO HS [facility] Last Admin: 02/24/18 22:45 Dose: 25 mg HEENT: (+) Pallor Oropharynx: No thrush, No mucositis Neck: Supple Cardiac: S1S2, regular Lungs: Clear Abd: Soft, Normal bowel sounds, No organomegaly Ext: (-) edema Skin: No rashes Laboratory Results - last 24 hr 02/24/18 02/24/18 02/24/18 10:00 19:00 19:00 WBC 2.1 L RBC 2.15 L Hgb 6.3 L* Hct 17.7 L D MCV 82.5 MCH 29.3 MCHC 35.5 RDW 17.8 H Plt Count 153 MPV 8.8 Absolute Neuts (auto) 1.1 L Neutrophils % 54.4 D Neutrophils % (Manual) 67.0 Band Neutrophils % 0.0 Lymphocytes % 43.5 H D Lymphocytes % (Manual) 31.0 D Monocytes % 1.4 L Monocytes % (Manual) 0 L Eosinophils % 0.1 Eosinophils % (Manual) 2.0 D Basophils % 0.6 Basophils % (Manual) 0.0 Myelocytes % (Man) Promyelocytes % (Man) Blast Cells % (Manual) Nucleated RBC % 9 H Metamyelocytes Hypochromia 2+ Platelet Estimate Adequate Polychromasia Poikilocytosis 2+ Basophilic Stippling 2+ Anisocytosis 2+ Microcytosis Macrocytosis Tear Drop Cells Rouleaux Schistocytes PT with INR 13.60 H INR 1.15 H PTT (Actin FS) Fibrinogen Sodium Potassium Chloride Carbon Dioxide Anion Gap BUN Creatinine Creat Clearance w eGFR Random Glucose Calcium Total Bilirubin AST ALT Alkaline Phosphatase Total Protein Albumin Total Amylase Lipase Blood Type O POSITIVE Antibody Screen Negative Crossmatch See Detail 02/24/18 02/25/18 02/25/18 19:00 06:00 07:10 WBC 2.7 L RBC 1.96 L Hgb 5.6 L* Hct 16.7 L MCV 85.3 MCH 28.6 MCHC 33.6 RDW 14.8 D Plt Count 128 L MPV 8.4 Absolute Neuts (auto) 1.7 Neutrophils % 61.5 Neutrophils % (Manual) 52.0 Band Neutrophils % 2.0 Lymphocytes % 34.6 D Lymphocytes % (Manual) 37.8 D Monocytes % 2.9 L D Monocytes % (Manual) 0 L Eosinophils % 0.0 D Eosinophils % (Manual) 0.0 D Basophils % 1.0 Basophils % (Manual) 0.0 Myelocytes % (Man) 4 H D Promyelocytes % (Man) 0 Blast Cells % (Manual) 0 Nucleated RBC % 9 H Metamyelocytes 4 H D Hypochromia 0 Platelet Estimate Decreased Polychromasia 3+ Poikilocytosis 2+ Basophilic Stippling 1+ Anisocytosis 3+ Microcytosis 3+ Macrocytosis 0 Tear Drop Cells 1+ Rouleaux 1+ Schistocytes 2+ PT with INR INR PTT (Actin FS) Fibrinogen 147.0 L Sodium 143 Potassium 4.8 Chloride 108 H Carbon Dioxide 26 Anion Gap 10 BUN 85 H Creatinine 1.4 H Creat Clearance w eGFR 36.96 Random Glucose 233 H Calcium 8.1 L Total Bilirubin 1.3 H AST 14 L ALT 31 Alkaline Phosphatase 35 L Total Protein 4.2 L Albumin 2.2 L Total Amylase Lipase Blood Type Antibody Screen Crossmatch 02/25/18 02/25/18 02/25/18 07:10 07:10 10:30 WBC RBC Hgb Hct MCV MCH MCHC RDW Plt Count MPV Absolute Neuts (auto) Neutrophils % Neutrophils % (Manual) Band Neutrophils % Lymphocytes % Lymphocytes % (Manual) Monocytes % Monocytes % (Manual) Eosinophils % Eosinophils % (Manual) Basophils % Basophils % (Manual) Myelocytes % (Man) Promyelocytes % (Man) Blast Cells % (Manual) Nucleated RBC % Metamyelocytes Hypochromia Platelet Estimate Polychromasia Poikilocytosis Basophilic Stippling Anisocytosis Microcytosis Macrocytosis Tear Drop Cells Rouleaux Schistocytes PT with INR 14.30 H INR 1.21 H PTT (Actin FS) 21.9 L Fibrinogen 136.0 L Sodium 143 Potassium 4.5 Chloride 109 H Carbon Dioxide 24 Anion Gap 11 BUN 112 H* Creatinine 1.5 H Creat Clearance w eGFR 34.13 Random Glucose 222 H Calcium 7.9 L Total Bilirubin 1.4 H AST 12 L ALT 26 Alkaline Phosphatase 27 L Total Protein 3.8 L Albumin 2.0 L Total Amylase 222 H Lipase 383 Blood Type Antibody Screen Crossmatch 02/25/18 02/25/18 02/25/18 10:59 10:59 11:00 WBC RBC 2.85 L Hgb 8.7 L Hct 25.0 L D MCV 87.7 MCH 30.4 MCHC 34.7 RDW 14.2 Plt Count 81 L D MPV 8.8 Absolute Neuts (auto) 1.8 Neutrophils % 67.2 Neutrophils % (Manual) Band Neutrophils % Lymphocytes % 28.8 Lymphocytes % (Manual) Monocytes % 3.2 L Monocytes % (Manual) Eosinophils % 0.2 D Eosinophils % (Manual) Basophils % 0.6 Basophils % (Manual) Myelocytes % (Man) Promyelocytes % (Man) Blast Cells % (Manual) Nucleated RBC % 3 H Metamyelocytes Hypochromia Platelet Estimate Polychromasia Poikilocytosis Basophilic Stippling Anisocytosis Microcytosis Macrocytosis Tear Drop Cells Rouleaux Schistocytes PT with INR 15.00 H INR 1.27 H PTT (Actin FS) 22.9 L Fibrinogen Sodium 145 Potassium 4.3 Chloride 110 H Carbon Dioxide 25 Anion Gap 10 BUN 114 H* Creatinine 1.5 H Creat Clearance w eGFR 34.13 Random Glucose 248 H Calcium 7.9 L Total Bilirubin 1.3 H AST 16 ALT 24 Alkaline Phosphatase 29 L Total Protein 3.7 L Albumin 2.0 L Total Amylase Lipase Blood Type Antibody Screen Crossmatch - Problems (1) GI (gastrointestinal hemorrhage) Assessment/Plan: Code(s): K92.2 - GASTROINTESTINAL HEMORRHAGE, UNSPECIFIED (2) Choledocholithiasis Code(s): K80.50 - CALCULUS OF BILE DUCT W/O CHOLANGITIS OR CHOLECYST W/O OBST (3) Fever Code(s): R50.9 - FEVER, UNSPECIFIED (4) Chronic lymphocytic leukemia Code(s): C91.90 - LYMPHOID LEUKEMIA, UNSPECIFIED NOT HAVING ACHIEVED REMISSION (5) Hemolytic anemia Code(s): D58.9 - HEREDITARY HEMOLYTIC ANEMIA, UNSPECIFIED (6) Anxiety disorder Code(s): F41.9 - ANXIETY DISORDER, UNSPECIFIED (7) Nephrolithiasis Code(s): N20.0 - CALCULUS OF KIDNEY (8) Hydronephrosis Code(s): N13.30 - UNSPECIFIED HYDRONEPHROSIS (9) Anemia requiring transfusions Code(s): D64.9 - ANEMIA, UNSPECIFIED (10) Jaundice Code(s): R17 - UNSPECIFIED JAUNDICE Impression: Severe Anemia: Possibly due to hemolytic anemia / R/O occult hemorrhage Do not suspect sepsis For Emergent Endoscopic evaluation O2 as needed pRBCs transfusion Follow serial H&H Noted that Heme recommended Prednisone 50 mg (1 mg/kg) PPI ICU monitoring Dr Saucedo
[2018-02-25] MEDS ORDERED: MIDAZOLAM HCL 2 MG/2 ML SINGLE DOSE VIAL ONE (14:37)
[2018-02-25 14:59] LABS: ANISOCYTOSIS 3+; MACROCYTOSIS 0; PLATELET ESTIMATE DECREASED; TARGET CELLS 1+; TEAR DROP CELLS 1+
[2018-02-25 15:11] LABS: CORRECTED WBC 3.03 K/mm3; WHITE BLOOD COUNT 3.7 K/mm3 (4.0-10.0)
[2018-02-25] MEDS ORDERED: EPINEPHrine 1:10,000 (P-F SYR) 1 MG/10 ML DISP.SYRIN ONE ×2 (15:23→16:10)
[2018-02-25] MEDS: metoPROLOL SUCCINATE 25 MG TAB.SR.24H (FP) PO SCH (15:35)
[2018-02-25] MEDS ORDERED: EPINEPHrine 1:10,000 (P-F SYR) 1 MG/10 ML DISP.SYRIN IVPUSH ONE (16:04)
--- NOTE | 2018-02-25 16:05 | CONSULT ---
Consultation: REQUESTING PROVIDER: CONSULT REQUEST: We have been asked to medically evaluate this patient for ICU monitoring for possible GI bleeding and severe anemia. HISTORY OF PRESENT ILLNESS: 72 yo F with a PMHx of HTN, anxiety, CLL (on no treatment), hx of cholelithiasis and nephrolithiasis presented to hospital for increasing facial swelling and jaundice, and admitted for profound anemia with Hgb 3.8, neutropenia with WBC of 1.9, sepsis CBD stones, gallstones and renal stones. During hospitalization pt has been seen by heme, GI, renal, urology, cardio, ID , and psych. ERCP on 02/21 single CBD stone was found in the distal common bile duct and removed. Has received multiple transfusions here but H/H cont to drop. s/p 2 U PRBC transfused yesterday. This morning Hg 5.6 and pt had another black BM this am, BP 96/60 HR 130, pt denied any c/o and she said she feels fine and wants to go home. PCP explained to her condition prognosis and that she needs blood products transfusion and EGD now to stop the bleed and her condition is life threatening; patient agreed for blood and blood products but regarding EGD she said "maybe latter". Massive blood transfusion protocol was initiated, Transferred to ICU due to possible GI bleeding and severe anemia. Denies LITTLE, abd pain, CP or SOB, n/v/d. For emergent Endoscopy today. REVIEW OF SYSTEMS: as per HPI PHYSICAL EXAMINATION Vital Signs - 24 hr 02/24/18 02/24/18 02/25/18 21:00 21:15 06:00 Temperature 98.0 F 98 F Pulse Rate 108 H 98 H Respiratory 18 20 Rate Blood Pressure 114/57 L 113/52 L O2 Sat by Pulse 95 Oximetry (%) 02/25/18 02/25/18 02/25/18 06:20 08:20 09:00 Temperature 98.0 F 97.7 F Pulse Rate 111 H 111 H Respiratory 18 18 Rate Blood Pressure 116/67 115/56 L O2 Sat by Pulse 99 Oximetry (%) 02/25/18 02/25/18 02/25/18 10:00 12:04 12:20 Temperature 99.8 F H 99.4 F 99 F Pulse Rate 95 H 99 H 100 H Respiratory 18 20 18 Rate Blood Pressure 116/54 L 124/68 116/74 O2 Sat by Pulse Oximetry (%) 02/25/18 02/25/18 14:20 15:16 Temperature 98.8 F Pulse Rate 98 H Respiratory 18 18 Rate Blood Pressure 118/56 L O2 Sat by Pulse 99 Oximetry (%) GENERAL: AOX2 not year. NAD HEENT: (+) Pallor ncat Oropharynx: No thrush, No mucositis MMM NECK: Normal range of motion LUNGS: CTAB HEART: RRR, normal S1 and S2 2/6 WINDY ABDOMEN: Soft, NTND, normoactive bowel sounds, no guarding, no rebound, no masses. MUSCULOSKELETAL: Normal range of motion at all joints. No bony deformities or tenderness. UPPER EXTREMITIES: 2+ pulses, warm, well-perfused. No cyanosis. No clubbing. Cap refill <2 seconds. No peripheral edema. LOWER EXTREMITIES: 2+ pulses, warm, well-perfused. No calf tenderness. No peripheral edema. NEUROLOGICAL: Cranial nerves II-XII intact. Normal speech. PSYCHIATRIC: Cooperative. Good eye contact. Appropriate mood and affect. SKIN: Warm, dry, normal turgor, no rashes or lesions noted. Laboratory Results - last 24 hr 02/24/18 02/24/18 02/24/18 10:00 19:00 19:00 WBC 2.1 L Corrected WBC (auto) RBC 2.15 L Hgb 6.3 L* Hct 17.7 L D MCV 82.5 MCH 29.3 MCHC 35.5 RDW 17.8 H Plt Count 153 MPV 8.8 Absolute Neuts (auto) 1.1 L Neutrophils % 54.4 D Neutrophils % (Manual) 67.0 Band Neutrophils % 0.0 Lymphocytes % 43.5 H D Lymphocytes % (Manual) 31.0 D Monocytes % 1.4 L Monocytes % (Manual) 0 L Eosinophils % 0.1 Eosinophils % (Manual) 2.0 D Basophils % 0.6 Basophils % (Manual) 0.0 Myelocytes % (Man) Promyelocytes % (Man) Blast Cells % (Manual) Nucleated RBC % 9 H Metamyelocytes Hypochromia 2+ Platelet Estimate Adequate Polychromasia Poikilocytosis 2+ Basophilic Stippling 2+ Anisocytosis 2+ Microcytosis Macrocytosis Target Cells Tear Drop Cells Rouleaux Schistocytes PT with INR 13.60 H INR 1.15 H PTT (Actin FS) Fibrinogen Sodium Potassium Chloride Carbon Dioxide Anion Gap BUN Creatinine Creat Clearance w eGFR Random Glucose Calcium Total Bilirubin AST ALT Alkaline Phosphatase Total Protein Albumin Total Amylase Lipase Blood Type O POSITIVE Antibody Screen Negative Crossmatch See Detail 02/24/18 02/25/18 02/25/18 19:00 06:00 07:10 WBC 2.7 L Corrected WBC (auto) RBC 1.96 L Hgb 5.6 L* Hct 16.7 L MCV 85.3 MCH 28.6 MCHC 33.6 RDW 14.8 D Plt Count 128 L MPV 8.4 Absolute Neuts (auto) 1.7 Neutrophils % 61.5 Neutrophils % (Manual) 52.0 Band Neutrophils % 2.0 Lymphocytes % 34.6 D Lymphocytes % (Manual) 37.8 D Monocytes % 2.9 L D Monocytes % (Manual) 0 L Eosinophils % 0.0 D Eosinophils % (Manual) 0.0 D Basophils % 1.0 Basophils % (Manual) 0.0 Myelocytes % (Man) 4 H D Promyelocytes % (Man) 0 Blast Cells % (Manual) 0 Nucleated RBC % 9 H Metamyelocytes 4 H D Hypochromia 0 Platelet Estimate Decreased Polychromasia 3+ Poikilocytosis 2+ Basophilic Stippling 1+ Anisocytosis 3+ Microcytosis 3+ Macrocytosis 0 Target Cells Tear Drop Cells 1+ Rouleaux 1+ Schistocytes 2+ PT with INR INR PTT (Actin FS) Fibrinogen 147.0 L Sodium 143 Potassium 4.8 Chloride 108 H Carbon Dioxide 26 Anion Gap 10 BUN 85 H Creatinine 1.4 H Creat Clearance w eGFR 36.96 Random Glucose 233 H Calcium 8.1 L Total Bilirubin 1.3 H AST 14 L ALT 31 Alkaline Phosphatase 35 L Total Protein 4.2 L Albumin 2.2 L Total Amylase Lipase Blood Type Antibody Screen Crossmatch 02/25/18 02/25/18 02/25/18 07:10 07:10 10:30 WBC Corrected WBC (auto) RBC Hgb Hct MCV MCH MCHC RDW Plt Count MPV Absolute Neuts (auto) Neutrophils % Neutrophils % (Manual) Band Neutrophils % Lymphocytes % Lymphocytes % (Manual) Monocytes % Monocytes % (Manual) Eosinophils % Eosinophils % (Manual) Basophils % Basophils % (Manual) Myelocytes % (Man) Promyelocytes % (Man) Blast Cells % (Manual) Nucleated RBC % Metamyelocytes Hypochromia Platelet Estimate Polychromasia Poikilocytosis Basophilic Stippling Anisocytosis Microcytosis Macrocytosis Target Cells Tear Drop Cells Rouleaux Schistocytes PT with INR 14.30 H INR 1.21 H PTT (Actin FS) 21.9 L Fibrinogen 136.0 L Sodium 143 Potassium 4.5 Chloride 109 H Carbon Dioxide 24 Anion Gap 11 BUN 112 H* Creatinine 1.5 H Creat Clearance w eGFR 34.13 Random Glucose 222 H Calcium 7.9 L Total Bilirubin 1.4 H AST 12 L ALT 26 Alkaline Phosphatase 27 L Total Protein 3.8 L Albumin 2.0 L Total Amylase 222 H Lipase 383 Blood Type Antibody Screen Crossmatch 02/25/18 02/25/18 02/25/18 10:59 10:59 11:00 WBC 3.7 L Corrected WBC (auto) 3.03 RBC 2.85 L Hgb 8.7 L Hct 25.0 L D MCV 87.7 MCH 30.4 MCHC 34.7 RDW 14.2 Plt Count 81 L D MPV 8.8 Absolute Neuts (auto) 1.8 Neutrophils % 67.2 Neutrophils % (Manual) 59.8 Band Neutrophils % 7.2 Lymphocytes % 28.8 Lymphocytes % (Manual) 21.6 D Monocytes % 3.2 L Monocytes % (Manual) 4 D Eosinophils % 0.2 D Eosinophils % (Manual) 0.0 Basophils % 0.6 Basophils % (Manual) 0.0 Myelocytes % (Man) 3 H D Promyelocytes % (Man) 0 Blast Cells % (Manual) 2 H D Nucleated RBC % 3 H Metamyelocytes 2 D Hypochromia 0 Platelet Estimate Decreased Polychromasia 1+ Poikilocytosis 2+ Basophilic Stippling Anisocytosis 3+ Microcytosis 3+ Macrocytosis 0 Target Cells 1+ Tear Drop Cells 1+ Rouleaux Schistocytes 2+ PT with INR 15.00 H INR 1.27 H PTT (Actin FS) 22.9 L Fibrinogen Sodium 145 Potassium 4.3 Chloride 110 H Carbon Dioxide 25 Anion Gap 10 BUN 114 H* Creatinine 1.5 H Creat Clearance w eGFR 34.13 Random Glucose 248 H Calcium 7.9 L Total Bilirubin 1.3 H AST 16 ALT 24 Alkaline Phosphatase 29 L Total Protein 3.7 L Albumin 2.0 L Total Amylase Lipase Blood Type Antibody Screen Crossmatch Active Medications Generic Name Dose Route Start Last Admin Trade Name Freq PRN Reason Stop Dose Admin Alprazolam 0.25 mg 02/16/18 12:44 02/21/18 04:05 Xanax - PO 0.25 mg Q8H PRN Administration ANXIETY Chlorhexidine Gluconate 1 applic 02/25/18 22:00 Hibiclens For Decolonization - TP HS RYAN Lactated Ringer's 1,000 ml in 1,000 mls @ 125 mls/hr 02/22/18 03:45 02/25/18 14:16 Lactated Ringers Solution IV 125 mls/hr ASDIR RYAN Administration Pantoprazole Sodium 80 mg/ 100 mls @ 10 mls/hr 02/25/18 08:45 02/25/18 14:16 Sodium Chloride IVPB 10 mls/hr Q10H RYAN Administration 8 MG/HR Metoclopramide HCl 10 mg 02/25/18 10:00 02/25/18 14:17 Reglan Injection - IVPUSH Not Given Q6H-IV RYAN Metoprolol Succinate 25 mg 02/16/18 10:00 02/25/18 15:35 Toprol Xl - PO Not Given DAILY RYAN Mupirocin 1 applic 02/25/18 10:00 02/25/18 14:17 Bactroban Ointment (For Decolonization) - NS 03/02/18 09:59 Not Given BID RYAN Ondansetron HCl 8 mg 02/25/18 08:12 02/25/18 08:30 Zofran Injection IVPB 8 mg Q8H PRN Administration NAUSEA Quetiapine Fumarate 25 mg 02/18/18 22:00 02/24/18 22:45 Seroquel - PO 25 mg HS RYAN Administration ASSESSMENT/PLAN: 72 year old female with a PMHx of HTN, anxiety, CLL (on no treatment), hx of cholelithiasis and nephrolithiasis presented to hospital for increasing facial swelling and jaundice, and admitted for profound anemia with Hgb 3.8, neutropenia with WBC of 1.9, sepsis CBD stones, gallstones and renal stones. Now being transferred to ICU due to possible GI bleeding and severe anemia. Problem List: Severe Anemia: Possibly 2/2 hemolytic anemia / R/O occult hemorrhage Do not suspect sepsis thrombocytopenia CLL HTN Neutropenia Anemia of Chronic Disease Choledocolithiasis - s/p ERCP 02/21/18 Hydronephrosis EBER 2/2 unilateral obstruction with staghorn calculi anxiety NEURO/psych AOX2 seroquel, xanax psych consult GI/HEME/CARDIAC/pulm/RENAL For Emergent Endoscopic evaluation PPI gtt zofran/reglan for nausea monitor H&H hold home ASA in setting of bleed and low plt pRBCs transfusion to Hb 8 gm% lasix if needed monitor i/o Per Heme recs: 1 U plt now. will recheck CBC at 10 pm. cont to transf plt if < 100,000 Vitamin K-5 mg Cryoppt- 6 units FFP-2 units. Noted that Heme recommended Prednisone 50 mg (1 mg/kg), although has been discontinued. O2 as needed maintain MAP>65 metoprolol held hold home anti-hypertensive meds ECHO nl EF s/p ERCP 02/21/18 single CBD stone was found in the distal common bile duct and removed BUN/Cr rising in last 24-48 hours likely due to renal hypo-perfusion in setting of acute anemia high bun due to upper GI bleed Trend bun/cr levels, no indication for [employer] at the present time bone marrow biopsy and cholecystectomy postponed - when stable GI, renal, heme, urology, cardio consulted FEN LR 125cc/hr replete prn NPO ppx SCDs protonix gtt Dispo: ICU EGD today We will continue to follow the patient. Thank you for this consultative opportunity. Visit type - Emergency Visit Emergency Visit: Yes ED Registration Date: 02/15/18 Care time: The patient presented to the Emergency Department on the above date and was hospitalized for further evaluation of their emergent condition. - New Patient This patient is new to me today: Yes Date on this admission: 02/25/18 - Critical Care Critical Care patient: Yes Total Critical Care Time (in minutes): 40 Critical Care Statement: The care of this patient involved high complexity decision making to prevent further life threatening deterioration of the patient 's condition and/or to evaluate & treat vital organ system(s) failure or risk of failure.
--- NOTE | 2018-02-25 17:48 | PN ---
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 (short form) - Note 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: GI Procedure NOte: Please see scanned EGD report. The bleeding is from the sphincterotomy site. This has hopefully been controlled with epinephrine and heater probe cautery. I discussed the case with the family and shared concerns about the high risk of rebleeding. Dr Garcia will be ordering more platelets. I also discussed the case with Dr Jordan and Dr. Valentin. Tracy is at risk for pancreatitis and obstruction from swelling at the sphincterotomy site as well. Dr Ga will be covering as of tomorrow morning. Problem List - Problems (1) GI (gastrointestinal hemorrhage) Code(s): K92.2 - GASTROINTESTINAL HEMORRHAGE, UNSPECIFIED (2) Choledocholithiasis Code(s): K80.50 - CALCULUS OF BILE DUCT W/O CHOLANGITIS OR CHOLECYST W/O OBST (3) Fever Code(s): R50.9 - FEVER, UNSPECIFIED (4) Chronic lymphocytic leukemia Code(s): C91.90 - LYMPHOID LEUKEMIA, UNSPECIFIED NOT HAVING ACHIEVED REMISSION (5) Hemolytic anemia Code(s): D58.9 - HEREDITARY HEMOLYTIC ANEMIA, UNSPECIFIED (6) Anxiety disorder Code(s): F41.9 - ANXIETY DISORDER, UNSPECIFIED (7) Nephrolithiasis Code(s): N20.0 - CALCULUS OF KIDNEY (8) Hydronephrosis Code(s): N13.30 - UNSPECIFIED HYDRONEPHROSIS (9) Anemia requiring transfusions Code(s): D64.9 - ANEMIA, UNSPECIFIED (10) Jaundice Code(s): R17 - UNSPECIFIED JAUNDICE
[2018-02-25] MEDS ORDERED: LACTATED RINGERS SOLUTION 1,000 ML/1,000 ML INFUS.BAG IV SCH (18:39)
[2018-02-25] MEDS ORDERED: ALPRAZolam 0.25 MG TABLET PO PRN (18:39)
[2018-02-25] MEDS: PANTOPRAZOLE SODIUM 80 MG in SODIUM CHLORIDE 100 ML IVPB SCH (19:00)
[2018-02-25 21:17] LABS: BASO % 0.5 % (0-2.0); EOS % 0.2 % (0-4.5); HEMATOCRIT 19.5 % (32.4-45.2); LYMPH % 34.3 % (8-40); MEAN CELL VOLUME 86.1 fl (80-96); MEAN PLT VOLUME 9.1 fl (7.5-11.1); MONO % 2.8 % (3.8-10.2); NEUT % 62.2 % (42.8-82.8); PLATELET COUNT 137 K/MM3 (134-434); RBC 2.27 M/mm3 (3.60-5.2); WHITE BLOOD COUNT 2.8 K/mm3 (4.0-10.0)
[2018-02-25] MEDS ORDERED: methylPREDNISolone NA SUCC 40 MG/1 ML VIAL IVPUSH ONE (22:18)
[2018-02-25] MEDS: QUEtiapine FUMARATE 25 MG TABLET (FP) PO SCH (22:28)
[2018-02-25] MEDS: CHLORHEXIDINE GLUCONATE 4% CLEANSER FOR DECOLONIZATION TP SCH (22:31)
[2018-02-25 23:34] LABS: HEMATOCRIT 18.5 % (32.4-45.2); MCH 30.6 pg (25.7-33.7); MCHC 35.7 g/dl (32.0-36.0); MEAN CELL VOLUME 85.6 fl (80-96); MEAN PLT VOLUME 8.3 fl (7.5-11.1); PLATELET COUNT 133 K/MM3 (134-434); RBC 2.16 M/mm3 (3.60-5.2); RDW 13.6 % (11.6-15.6); WHITE BLOOD COUNT 2.7 K/mm3 (4.0-10.0)
[2018-02-25 23:41] LABS: HEMOGLOBIN 6.6 GM/dL (10.7-15.3)
--- NOTE | 2018-02-26 07:34 | PN ---
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, Physician Chief Complaint: events noted and d/w GI dr Macias (last evening) s/p EGD - sphincterotomy bleeding, s/p epi inj and cauterization, bleeding stopped - pt had BM today no blood not black; also per dr Macias, dr Lynch IR was consulted yesterday intraop but pt was not a candidate for embolization b/o risk of GB necrosis; HG 8.7 then 6 pt transfused 2 U PRBC over night; more blood ordered for stand by by this am Hg 9 Na 155 - on LR will change to HS all consults reviewed and d/w pt and daughter - Current Medication List Current Medications: Active Medications Alprazolam (Xanax -) 0.25 mg PO Q8H PRN PRN Reason: ANXIETY Chlorhexidine Gluconate (Hibiclens For Decolonization -) 1 applic TP [facility] Last Admin: 02/25/18 22:31 Dose: 1 applic Lactated Ringer's (Lactated Ringers Solution) 1,000 ml in 1,000 mls @ 125 mls/ hr IV ASDIR [facility] Last Admin: 02/25/18 19:58 Dose: 125 mls/hr Pantoprazole Sodium 80 mg/ (Sodium Chloride) 100 mls @ 10 mls/hr IVPB Q10H [facility] Last Admin: 02/25/18 19:00 Dose: 10 mls/hr Mupirocin (Bactroban Ointment (For Decolonization) -) 1 applic NS BID [facility] Stop: 03/02/18 09:59 Last Admin: 02/25/18 22:27 Dose: 1 applic Ondansetron HCl (Zofran Injection) 8 mg IVPB Q8H PRN PRN Reason: NAUSEA Quetiapine Fumarate (Seroquel -) 25 mg PO [facility] Last Admin: 02/25/18 22:28 Dose: Not Given - Objective Vital Signs: Vital Signs Temperature 98.4 F 02/26/18 04:20 Pulse Rate 87 02/26/18 04:20 Respiratory Rate 16 02/26/18 04:20 Blood Pressure 144/72 02/26/18 04:20 O2 Sat by Pulse Oximetry (%) 99 02/25/18 21:00 Constitutional: Yes: No Distress, Calm Eyes: Yes: Conjunctiva Clear HENT: Yes: Atraumatic Neck: Yes: Supple Cardiovascular: Yes: Regular Rate and Rhythm Respiratory: Yes: CTA Bilaterally Gastrointestinal: Yes: Soft. No: Distention Genitourinary: No: CVA Tenderness - Left, CVA Tenderness - Right, Hematuria Musculoskeletal: No: Joint Stiffness, Joint Swelling Extremities: No: Cold, Cool, Cyanosis Edema: No Integumentary: Yes: Bruising (stable). No: Rash, Venous Stasis Changes Neurological: Yes: WNL, Alert, Oriented ...Motor Strength: WNL Psychiatric: Yes: WNL, Alert, Oriented. No: Agitated, Suicidal Ideation Labs: CBC, BMP 02/25/18 23:15 02/25/18 11:00 INR, PTT INR 1.27 (0.83-1.09) H 02/25/18 10:59 Fibrinogen 136.0 mg/dL (238-498) L 02/25/18 10:30 - ....Imaging Other: Report Reviewed Assessment/Plan The patient is a 72-year-old female, with a past medical history of HTN, CLL ( not on any treatment), thalassemia, anxiety, kidney stones, gallstones, admitted with severe anemia and neutropenia, sepsis CBD stones, gallstones and renal stones s/p EGD emergent: sphincterotomy site bleeding; s/p epi inj and cauterization bleeding stopped for now NPO; IV PPI, IV reglan s/p blood transfusions check labs bone marrow biopsy and cholecystectomy postponed - when stable cardio f/u , psych f/u falls decubs DVT pfx prognosis guarded d/w pt and staff d/w daughter t time 45 min
[2018-02-26 08:13] LABS: BASO % 0.9 % (0-2.0); EOS % 1.4 % (0-4.5); HEMATOCRIT 26.4 % (32.4-45.2); HEMOGLOBIN 9.5 GM/dL (10.7-15.3); LYMPH % 26.3 % (8-40); MCH 30.3 pg (25.7-33.7); MCHC 35.9 g/dl (32.0-36.0); MEAN CELL VOLUME 84.5 fl (80-96); NEUT % 69.4 % (42.8-82.8); PLATELET COUNT 123 K/MM3 (134-434); RBC 3.12 M/mm3 (3.60-5.2); RDW 14.1 % (11.6-15.6); WHITE BLOOD COUNT 3.3 K/mm3 (4.0-10.0)
[2018-02-26 08:30] LABS: BILIRUBIN,DIRECT 0.4 mg/dL (0.0-0.2)
[2018-02-26 08:49] LABS: ALBUMIN 2.2 g/dl (3.4-5.0); ALK PHOS 42 U/L (45-117); ANION GAP 6 MMOL/L (8-16); BILIRUBIN,TOTAL 1.7 mg/dL (0.2-1); BLOOD UREA NITROGEN 89 mg/dL (7-18); CHLORIDE 121 mmol/L (98-107); CO2 27 mmol/L (21-32); CREATININE 1.1 mg/dL (0.55-1.3); GLUCOSE,RANDOM 174 mg/dL (74-106); MAGNESIUM 2.1 mg/dL (1.8-2.4); PHOSPHOROUS 2.8 mg/dL (2.5-4.9); POTASSIUM 4.1 mmol/L (3.5-5.1); SGOT/AST 34 U/L (15-37); SGPT/ALT 66 U/L (13-61); SODIUM 155 mmol/L (136-145); TOT PROT 4.1 g/dl (6.4-8.2)
[2018-02-26] MEDS: PANTOPRAZOLE SODIUM 80 MG in SODIUM CHLORIDE 100 ML IVPB SCH ×2 (09:00→14:35)
[2018-02-26 09:09] LABS: INR 1.23 (0.83-1.09); PROTHROMBIN TIME (PATIENT) 14.6 SEC (9.7-13.0)
[2018-02-26] MEDS ORDERED: SODIUM CHLORIDE 0.45% 1,000 ML IV SCH (09:15)
[2018-02-26] MEDS: SODIUM CHLORIDE 0.45% 1,000 ML IV SCH (09:36)
[2018-02-26] MEDS: MUPIROCIN 2% TOPICAL OINTMENT FOR DECOLONIZATION NS SCH ×2 (09:37→22:44)
--- NOTE | 2018-02-26 10:19 | PN ---
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, Physician History of Present Illness: The patient is a 72-year-old female, with a past medical history of HTN, CLL ( not on any treatment), thalassemia, anxiety, kidney stones, gallstones, who presents to the ED with facial swelling today. Daughter is at bedside and reports that her mother was complaining of nausea but no vomiting. Patient refused to go to the hospital. Daughter went to visit her mother before work and noted the facial swelling, which is worse under her eyes and the left-side of her face. She also reports that the patient appeared more yellow in color last week but today appears more pale. Patient was scheduled to have blood work drawn today at the hospital per Dr. Sabi Leyva orders. CLL that had so far no required therapy presents with painless jaundice noticed by her daughter. Tracy denies and abdominal pain, jaundice, pruritus , chills or fever but is very reserved in her responses. She was 101 in the ER. Tracy believes that her mother had nausea, anorexia,facila swelling, chills and notes a recent weight loss. Tracy lives with her . Giacomo the daughter informs me that her mother has been refractory to physician interventions and procedures chronically. I saw her in 2013 when a colon cancer screening was advised but she refused. She was close to have a procedure recently with Dr Wren for obstructing nephrolithiasis but refused at the last moment to proceed. Tracy denies any h/o liver disease, IVDA, transfusions and tattoos. She denies ever having had any surgery but in 2013 told me that she had a tonsillectomy and left axillary lymph node biopsy. PMH CRI HTN Hyperlipidemia Negative MIBI stress test June 2013 Nephroliyhiasis PAD 50-70 ICA stenosis 2012 - Current Medication List Current Medications: Active Medications Alprazolam (Xanax -) 0.25 mg PO Q8H PRN PRN Reason: ANXIETY Chlorhexidine Gluconate (Hibiclens For Decolonization -) 1 applic TP HS RYAN Last Admin: 02/25/18 22:31 Dose: 1 applic Pantoprazole Sodium 80 mg/ (Sodium Chloride) 100 mls @ 10 mls/hr IVPB Q10H RYAN Last Admin: 02/26/18 09:00 Dose: 10 mls/hr Sodium Chloride (1/2 Normal Saline) 1,000 mls @ 100 mls/hr IV ASDIR [facility] Last Admin: 02/26/18 09:36 Dose: 100 mls/hr Metoprolol Succinate (Toprol Xl -) 25 mg PO DAILY [facility] Mupirocin (Bactroban Ointment (For Decolonization) -) 1 applic NS BID [facility] Stop: 03/02/18 09:59 Last Admin: 02/26/18 09:37 Dose: 1 applic Ondansetron HCl (Zofran Injection) 8 mg IVPB Q8H PRN PRN Reason: NAUSEA Quetiapine Fumarate (Seroquel -) 25 mg PO HS [facility] Last Admin: 02/25/18 22:28 Dose: Not Given - Objective Vital Signs: Vital Signs Temperature 98.4 F 02/26/18 04:20 Pulse Rate 87 02/26/18 04:20 Respiratory Rate 16 02/26/18 04:20 Blood Pressure 144/72 02/26/18 04:20 O2 Sat by Pulse Oximetry (%) 99 02/25/18 21:00 Eyes: Yes: WNL, Conjunctiva Clear, EOM Intact HENT: Yes: WNL, Atraumatic, Normocephalic Neck: Yes: WNL, Supple, Trachea Midline Cardiovascular: Yes: WNL, Regular Rate and Rhythm Respiratory: Yes: WNL, Regular, CTA Bilaterally Gastrointestinal: Yes: WNL, Normal Bowel Sounds Genitourinary: Yes: WNL Musculoskeletal: Yes: WNL Extremities: Yes: WNL Edema: No Integumentary: Yes: WNL Neurological: Yes: WNL, Alert, Oriented ...Motor Strength: WNL Psychiatric: Yes: WNL Labs: CBC, BMP 02/26/18 07:45 02/26/18 07:45 INR, PTT INR 1.23 (0.83-1.09) H 02/26/18 07:45 Fibrinogen 136.0 mg/dL (238-498) L 02/25/18 10:30 Problem List - Problems (1) Anxiety disorder Code(s): F41.9 - ANXIETY DISORDER, UNSPECIFIED (2) Choledocholithiasis Code(s): K80.50 - CALCULUS OF BILE DUCT W/O CHOLANGITIS OR CHOLECYST W/O OBST (3) Chronic lymphocytic leukemia Code(s): C91.90 - LYMPHOID LEUKEMIA, UNSPECIFIED NOT HAVING ACHIEVED REMISSION (4) Fever Code(s): R50.9 - FEVER, UNSPECIFIED (5) Hemolytic anemia Code(s): D58.9 - HEREDITARY HEMOLYTIC ANEMIA, UNSPECIFIED (6) Hydronephrosis Code(s): N13.30 - UNSPECIFIED HYDRONEPHROSIS (7) Jaundice Code(s): R17 - UNSPECIFIED JAUNDICE (8) Nephrolithiasis Code(s): N20.0 - CALCULUS OF KIDNEY (9) Scleral icterus Code(s): R17 - UNSPECIFIED JAUNDICE Assessment/Plan neutropenia s/p gi bleed and multiple transfusions in ICU s/p EGD emergent: sphincterotomy site bleeding; s/p epi inj and cauterization bleeding stopped for now. hemolisis cholelithiasis htn ECHO nl EF Plan cardiac dyson stable cont present rx watch for chf will use lasix if needed monitor i/o cc time spent 36 min
--- NOTE | 2018-02-26 10:49 | PN ---
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 (short form) - Note 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: Pt seen at bedside in ICU. Denies abdominal pain. Last BM was yesterday, none today. States she had breakfast without any problem. Transfused 2 U PRBCs overnight. Hgb now up to 9. To continue careful monitoring. Bleeding appears to have stopped; if it recurs , repeat endoscopy can be entertained.
[2018-02-26 11:42] LABS: ANISOCYTOSIS 2+; CORRECTED WBC 2.92 K/mm3; MACROCYTOSIS 1+; OVALOCYTE 1+; PLATELET ESTIMATE DECREASED
--- NOTE | 2018-02-26 12:24 | PN ---
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 (short form) - Note 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: Pulm/CCM SUBJECTIVE: Patient seen and examined in the ICU. 24Hr: -s/p egd with cauterization and injection at sphictorectomy site -large blood resus yesterday. Hgb 9 this am, repeat pending now -on ppi gtt Vital Signs Temp 98.4 F 02/26/18 12:00 Pulse 90 02/26/18 12:00 Resp 18 02/26/18 12:00 BP 138/63 02/26/18 12:00 Pulse Ox 99 02/26/18 09:00 Intake & Output 02/25/18 02/26/18 02/26/18 23:59 11:59 23:59 Intake Total 4050 1045 Output Total 2920 1300 Balance 1130 -255 Weight 51.8 kg Intake: IV 900 195 LACTATED RINGERS SOLUTION 500 1,000 ml In 1,000 ml @ 125 mls/hr IV ASDIR [facility] Rx#:[id number] LACTATED RINGERS SOLUTION 125 1,000 ml In 1,000 ml @ 125 mls/hr IV ASDIR [facility] Rx#:[id number] SL 70 IVPB 100 150 Packed Cells 1400 700 Fresh Frozen Plasma 1200 Platelets 450 Output: Urine 2920 1300 Henley 2100 1300 Void 800 Other: Voiding Method Indwelling Catheter Indwelling Catheter Bowel Movement Yes Yes Weight Measurement Method Built in [facility] Active Medications Alprazolam (Xanax -) 0.25 mg PO Q8H PRN PRN Reason: ANXIETY Chlorhexidine Gluconate (Hibiclens For Decolonization -) 1 applic TP HS [facility] Last Admin: 02/25/18 22:31 Dose: 1 applic Pantoprazole Sodium 80 mg/ (Sodium Chloride) 100 mls @ 10 mls/hr IVPB Q10H [facility] Last Admin: 02/26/18 09:00 Dose: 10 mls/hr Sodium Chloride (1/2 Normal Saline) 1,000 mls @ 100 mls/hr IV ASDIR [facility] Last Admin: 02/26/18 09:36 Dose: 100 mls/hr Metoprolol Succinate (Toprol Xl -) 25 mg PO DAILY [facility] Mupirocin (Bactroban Ointment (For Decolonization) -) 1 applic NS BID [facility] Stop: 03/02/18 09:59 Last Admin: 02/26/18 09:37 Dose: 1 applic Ondansetron HCl (Zofran Injection) 8 mg IVPB Q8H PRN PRN Reason: NAUSEA Quetiapine Fumarate (Seroquel -) 25 mg PO HS [facility] Last Admin: 02/25/18 22:28 Dose: Not Given HEENT:P/w/d Neck: Supple Cardiac: S1S2, regular HR 100, Lungs: Clear Abd: Soft, Normal bowel sounds, No organomegaly, no pain on palpation Ext: (-) edema Skin: No rashes BM: brown per report Laboratory Results - last 24 hr 02/24/18 02/25/18 02/25/18 10:00 10:30 10:59 WBC 3.7 L Corrected WBC (auto) 3.03 RBC Hgb Hct MCV MCH MCHC RDW Plt Count MPV Absolute Neuts (auto) Neutrophils % Neutrophils % (Manual) 59.8 Band Neutrophils % 7.2 Lymphocytes % Lymphocytes % (Manual) 21.6 D Monocytes % Monocytes % (Manual) 4 D Eosinophils % Eosinophils % (Manual) 0.0 Basophils % Basophils % (Manual) 0.0 Myelocytes % (Man) 3 H D Promyelocytes % (Man) 0 Blast Cells % (Manual) 2 H D Nucleated RBC % Metamyelocytes 2 D Hypochromia 0 Platelet Estimate Decreased Polychromasia 1+ Poikilocytosis 2+ Basophilic Stippling Anisocytosis 3+ Microcytosis 3+ Macrocytosis 0 Spherocytes Target Cells 1+ Tear Drop Cells 1+ Ovalocytes Schistocytes 2+ PT with INR INR PTT (Actin FS) Fibrinogen 136.0 L Sodium Potassium Chloride Carbon Dioxide Anion Gap BUN Creatinine Creat Clearance w eGFR Random Glucose Calcium Phosphorus Magnesium Total Bilirubin Direct Bilirubin AST ALT Alkaline Phosphatase C-Reactive Protein Total Protein Albumin Total Amylase Lipase Blood Type O POSITIVE Antibody Screen Negative Crossmatch See Detail 02/25/18 02/25/18 02/25/18 10:59 11:00 20:45 WBC 2.8 L Corrected WBC (auto) RBC 2.27 L Hgb 7.0 L Hct 19.5 L D MCV 86.1 MCH 31.0 MCHC 36.0 RDW 14.0 Plt Count 137 D MPV 9.1 Absolute Neuts (auto) 1.7 Neutrophils % 62.2 Neutrophils % (Manual) 53.0 Band Neutrophils % 8.0 Lymphocytes % 34.3 Lymphocytes % (Manual) 34.0 D Monocytes % 2.8 L Monocytes % (Manual) 0 L D Eosinophils % 0.2 Eosinophils % (Manual) 1.0 D Basophils % 0.5 Basophils % (Manual) 0.0 Myelocytes % (Man) 2 D Promyelocytes % (Man) Blast Cells % (Manual) Nucleated RBC % 2 H Metamyelocytes 2 Hypochromia Platelet Estimate Polychromasia Poikilocytosis Basophilic Stippling 1+ Anisocytosis Microcytosis Macrocytosis Spherocytes Target Cells Tear Drop Cells Ovalocytes Schistocytes PT with INR 15.00 H INR 1.27 H PTT (Actin FS) 22.9 L Fibrinogen Sodium 145 Potassium 4.3 Chloride 110 H Carbon Dioxide 25 Anion Gap 10 BUN 114 H* Creatinine 1.5 H Creat Clearance w eGFR 34.13 Random Glucose 248 H Calcium 7.9 L Phosphorus Magnesium Total Bilirubin 1.3 H Direct Bilirubin AST 16 ALT 24 Alkaline Phosphatase 29 L C-Reactive Protein Total Protein 3.7 L Albumin 2.0 L Total Amylase Lipase Blood Type Antibody Screen Crossmatch 02/25/18 02/26/18 02/26/18 23:15 07:45 07:45 WBC 2.7 L 3.3 L Corrected WBC (auto) 2.92 RBC 2.16 L 3.12 L Hgb 6.6 L* 9.5 L Hct 18.5 L 26.4 L D MCV 85.6 84.5 MCH 30.6 30.3 MCHC 35.7 35.9 RDW 13.6 14.1 Plt Count 133 L 123 L MPV 8.3 8.0 Absolute Neuts (auto) 2.3 Neutrophils % 69.4 Neutrophils % (Manual) 58.6 Band Neutrophils % 1.0 Lymphocytes % 26.3 D Lymphocytes % (Manual) 34.4 Monocytes % 2.0 L Monocytes % (Manual) 0 L Eosinophils % 1.4 D Eosinophils % (Manual) 2.0 D Basophils % 0.9 Basophils % (Manual) 0.0 Myelocytes % (Man) 1 D Promyelocytes % (Man) 0 Blast Cells % (Manual) 0 D Nucleated RBC % 1 H Metamyelocytes 2 Hypochromia 0 Platelet Estimate Decreased Polychromasia 0 Poikilocytosis 2+ Basophilic Stippling Anisocytosis 2+ Microcytosis 1+ Macrocytosis 1+ Spherocytes 1+ Target Cells Tear Drop Cells Ovalocytes 1+ Schistocytes PT with INR INR PTT (Actin FS) Fibrinogen Sodium 155 H Potassium 4.1 Chloride 121 H Carbon Dioxide 27 Anion Gap 6 L BUN 89 H Creatinine 1.1 Creat Clearance w eGFR 48.82 Random Glucose 174 H Calcium 8.0 L Phosphorus 2.8 Magnesium 2.1 Total Bilirubin 1.7 H Direct Bilirubin AST 34 ALT 66 H Alkaline Phosphatase 42 L C-Reactive Protein Total Protein 4.1 L Albumin 2.2 L Total Amylase Lipase Blood Type Antibody Screen Crossmatch 02/26/18 02/26/18 02/26/18 07:45 07:45 07:45 WBC Corrected WBC (auto) RBC Hgb Hct MCV MCH MCHC RDW Plt Count MPV Absolute Neuts (auto) Neutrophils % Neutrophils % (Manual) Band Neutrophils % Lymphocytes % Lymphocytes % (Manual) Monocytes % Monocytes % (Manual) Eosinophils % Eosinophils % (Manual) Basophils % Basophils % (Manual) Myelocytes % (Man) Promyelocytes % (Man) Blast Cells % (Manual) Nucleated RBC % Metamyelocytes Hypochromia Platelet Estimate Polychromasia Poikilocytosis Basophilic Stippling Anisocytosis Microcytosis Macrocytosis Spherocytes Target Cells Tear Drop Cells Ovalocytes Schistocytes PT with INR 14.60 H INR 1.23 H PTT (Actin FS) 25.3 Fibrinogen Sodium Potassium Chloride Carbon Dioxide Anion Gap BUN Creatinine Creat Clearance w eGFR Random Glucose Calcium Phosphorus Magnesium Total Bilirubin Direct Bilirubin 0.4 H AST ALT Alkaline Phosphatase C-Reactive Protein 1.2 H Total Protein Albumin Total Amylase 371 H Lipase 676 H Blood Type Antibody Screen Crossmatch - Problems (1) GI (gastrointestinal hemorrhage) Assessment/Plan: Code(s): K92.2 - GASTROINTESTINAL HEMORRHAGE, UNSPECIFIED (2) Choledocholithiasis Code(s): K80.50 - CALCULUS OF BILE DUCT W/O CHOLANGITIS OR CHOLECYST W/O OBST (3) Fever Code(s): R50.9 - FEVER, UNSPECIFIED (4) Chronic lymphocytic leukemia Code(s): C91.90 - LYMPHOID LEUKEMIA, UNSPECIFIED NOT HAVING ACHIEVED REMISSION (5) Hemolytic anemia Code(s): D58.9 - HEREDITARY HEMOLYTIC ANEMIA, UNSPECIFIED (6) Anxiety disorder Code(s): F41.9 - ANXIETY DISORDER, UNSPECIFIED (7) Nephrolithiasis Code(s): N20.0 - CALCULUS OF KIDNEY (8) Hydronephrosis Code(s): N13.30 - UNSPECIFIED HYDRONEPHROSIS (9) Anemia requiring transfusions Code(s): D64.9 - ANEMIA, UNSPECIFIED (10) Jaundice Code(s): R17 - UNSPECIFIED JAUNDICE Impression: Severe Anemia: Possibly due to hemolytic anemia / R/O occult hemorrhage Do not suspect sepsis S/p Emergent Endoscopic with cauterizaiton and injection, high risk for rebleed O2 as needed Follow serial H&H , cont to trend lipase PPI gtt, will transition to BID ICU monitoring Nathalia MARTÍNEZP [id number] 35min CCT
[2018-02-26 12:26] LABS: HEMATOCRIT 25.9 % (32.4-45.2); HEMOGLOBIN 9.5 GM/dL (10.7-15.3); MCH 30.7 pg (25.7-33.7); MCHC 36.6 g/dl (32.0-36.0); PLATELET COUNT 136 K/MM3 (134-434); RBC 3.08 M/mm3 (3.60-5.2); RDW 14.4 % (11.6-15.6); WHITE BLOOD COUNT 3.4 K/mm3 (4.0-10.0)
[2018-02-26] MEDS: metoPROLOL SUCCINATE 25 MG TAB.SR.24H (FP) PO SCH (12:36)
--- NOTE | 2018-02-26 12:55 | PN ---
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 (short form) - Note 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: covering dr alvarez Problems EBER/unilateral obstruction with staghorn calculi Acute Anemia/GIB HTN, CLL, Thalassemia, anxiety, kidney stones, gallstones Active Medications Alprazolam (Xanax -) 0.25 mg PO Q8H PRN PRN Reason: ANXIETY Chlorhexidine Gluconate (Hibiclens For Decolonization -) 1 applic TP HS [facility] Last Admin: 02/25/18 22:31 Dose: 1 applic Pantoprazole Sodium 80 mg/ (Sodium Chloride) 100 mls @ 10 mls/hr IVPB Q10H [facility] Last Admin: 02/26/18 09:00 Dose: 10 mls/hr Sodium Chloride (1/2 Normal Saline) 1,000 mls @ 100 mls/hr IV ASDIR [facility] Last Admin: 02/26/18 09:36 Dose: 100 mls/hr Metoprolol Succinate (Toprol Xl -) 25 mg PO DAILY [facility] Last Admin: 02/26/18 12:36 Dose: 25 mg Mupirocin (Bactroban Ointment (For Decolonization) -) 1 applic NS BID [facility] Stop: 03/02/18 09:59 Last Admin: 02/26/18 09:37 Dose: 1 applic Ondansetron HCl (Zofran Injection) 8 mg IVPB Q8H PRN PRN Reason: NAUSEA Quetiapine Fumarate (Seroquel -) 25 mg PO [facility] Last Admin: 02/25/18 22:28 Dose: Not Given Last Vital Signs Temp Pulse Resp BP Pulse Ox 98.4 F 90 18 138/63 99 02/26/18 12:00 02/26/18 12:00 02/26/18 12:00 02/26/18 12:00 02/26/18 09:00 alert in nad Lungs clear Heart reg Abd soft Ext no edema CBC, BMP 02/26/18 12:10 02/26/18 07:45 IMP- Prerenal azotemia GI bleed/anemia still npo on ivf Plan- continue ivf monitor bmp
--- NOTE | 2018-02-26 16:05 | PN ---
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 (short form) - Note 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: PAtient seen and examined Feels better Last Vital Signs Temp Pulse Resp BP Pulse Ox 98.4 F 90 18 138/63 99 02/26/18 12:00 02/26/18 12:00 02/26/18 12:00 02/26/18 12:00 02/26/18 09:00 Cor: RSR, No murmurs, No gallops Lungs: decreased at bases Abd: Soft, Normal bowel sounds, ext. no c/c/e Active Medications Alprazolam (Xanax -) 0.25 mg PO Q8H PRN PRN Reason: ANXIETY Chlorhexidine Gluconate (Hibiclens For Decolonization -) 1 applic TP HS [facility] Last Admin: 02/25/18 22:31 Dose: 1 applic Pantoprazole Sodium 80 mg/ (Sodium Chloride) 100 mls @ 10 mls/hr IVPB Q10H [facility] Last Admin: 02/26/18 14:35 Dose: 10 mls/hr Sodium Chloride (1/2 Normal Saline) 1,000 mls @ 100 mls/hr IV ASDIR [facility] Last Admin: 02/26/18 09:36 Dose: 100 mls/hr Metoprolol Succinate (Toprol Xl -) 25 mg PO DAILY [facility] Last Admin: 02/26/18 12:36 Dose: 25 mg Mupirocin (Bactroban Ointment (For Decolonization) -) 1 applic NS BID [facility] Stop: 03/02/18 09:59 Last Admin: 02/26/18 09:37 Dose: 1 applic Ondansetron HCl (Zofran Injection) 8 mg IVPB Q8H PRN PRN Reason: NAUSEA Quetiapine Fumarate (Seroquel -) 25 mg PO HS [facility] Last Admin: 02/25/18 22:28 Dose: Not Given A/P CLL Anemia --kimberly negative admitted with fever/? biliary infection Anemia- recent worseming from bleding at sphincterotomy site anemia of chronic disease.CKD/infection. ? bleeding.neative kimberly. flowcytometry-- 2% CLL leukopenia--improved monitor will follow
[2018-02-26] MEDS ORDERED: PT OWN MED DRAWER 7, Y5N ONE (20:00)
[2018-02-26] MEDS: QUEtiapine FUMARATE 25 MG TABLET (FP) PO SCH (22:42)
[2018-02-26] MEDS: CHLORHEXIDINE GLUCONATE 4% CLEANSER FOR DECOLONIZATION TP SCH (22:43)
[2018-02-27 06:50] LABS: ALK PHOS 37 U/L (45-117); ANION GAP 5 MMOL/L (8-16); BILIRUBIN,TOTAL 1.7 mg/dL (0.2-1); BLOOD UREA NITROGEN 49 mg/dL (7-18); CALCIUM 7.9 mg/dL (8.5-10.1); CHLORIDE 116 mmol/L (98-107); CO2 28 mmol/L (21-32); CREATININE 0.9 mg/dL (0.55-1.3); GLUCOSE,RANDOM 104 mg/dL (74-106); POTASSIUM 4.3 mmol/L (3.5-5.1); SGOT/AST 46 U/L (15-37); SGPT/ALT 45 U/L (13-61); SODIUM 149 mmol/L (136-145); TOT PROT 3.7 g/dl (6.4-8.2)
--- NOTE | 2018-02-27 06:50 | PN ---
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, Physician Chief Complaint: in ICU awake alert NAD VSS but looking pale denies any complaints; had 2 loose tarry stools; Hg yesterda 9.5 now 7.3 but HR , BP stable and BUN, Na better (going down). called Rodriguez at [phone] d/w Daughter Dayana Lao [phone] - Current Medication List Current Medications: Active Medications Alprazolam (Xanax -) 0.25 mg PO Q8H PRN PRN Reason: ANXIETY Chlorhexidine Gluconate (Hibiclens For Decolonization -) 1 applic TP [facility] Last Admin: 02/26/18 22:43 Dose: 1 applic Sodium Chloride (1/2 Normal Saline) 1,000 mls @ 100 mls/hr IV ASDIR [facility] Last Admin: 02/26/18 09:36 Dose: 100 mls/hr Metoprolol Succinate (Toprol Xl -) 25 mg PO DAILY [facility] Last Admin: 02/26/18 12:36 Dose: 25 mg Mupirocin (Bactroban Ointment (For Decolonization) -) 1 applic NS BID [facility] Stop: 03/02/18 09:59 Last Admin: 02/26/18 22:44 Dose: 1 applic Ondansetron HCl (Zofran Injection) 8 mg IVPB Q8H PRN PRN Reason: NAUSEA Pantoprazole Sodium (Protonix Iv) 40 mg IVPUSH BID [facility] Quetiapine Fumarate (Seroquel -) 25 mg PO [facility] Last Admin: 02/26/18 22:42 Dose: 25 mg - Objective Vital Signs: Vital Signs Temperature 98.2 F 02/26/18 19:43 Pulse Rate 79 02/27/18 04:00 Respiratory Rate 18 02/27/18 04:00 Blood Pressure 112/55 L 02/27/18 04:00 O2 Sat by Pulse Oximetry (%) 99 02/26/18 19:44 Constitutional: Yes: No Distress, Calm Eyes: Yes: Conjunctiva Clear HENT: Yes: Atraumatic Neck: Yes: Supple Cardiovascular: Yes: Regular Rate and Rhythm Respiratory: Yes: CTA Bilaterally Gastrointestinal: Yes: Soft. No: Distention Genitourinary: Yes: Henley Present. No: CVA Tenderness - Left, CVA Tenderness - Right, Hematuria Musculoskeletal: No: Joint Stiffness, Joint Swelling Extremities: No: Cold, Cool, Cyanosis Edema: No Integumentary: Yes: Bruising Neurological: Yes: WNL, Alert ...Motor Strength: WNL Psychiatric: Yes: WNL, Alert. No: Oriented, Agitated, Suicidal Ideation Labs: CBC, BMP 02/27/18 05:30 INR, PTT INR 1.23 (0.83-1.09) H 02/26/18 07:45 Fibrinogen 136.0 mg/dL (238-498) L 02/25/18 10:30 - ....Imaging Other: Report Reviewed Assessment/Plan The patient is a 72-year-old female, with a past medical history of HTN, CLL ( not on any treatment), thalassemia, anxiety, kidney stones, gallstones, admitted with severe anemia and neutropenia, sepsis CBD stones, s/p ERCP 02/21 then developed arterial sphincterotomy site bleeding on 02/24 s/p EGD ERCP and local epi inj and cauterization, bleeding stopped yesterday but today had 2 black stools and hg from 9.5 to 7.3 NPO; IV PPI, IV reglan d/w GI dr Ga will repeat CBC today, if drops H&H will need EGD again; also if bleeds again would transfer to [facility] or [facility] to be eval by hepatobiliary surgery (service NA at [facility]) ordered 2 U PRBC blood transfusions, check labs bone marrow biopsy and cholecystectomy postponed falls decubs DVT pfx prognosis guarded d/w pt and staff d/w daughter; d/w ICU staff and called [facility] transfer service at [phone] to activate the transfer t time 60 min
[2018-02-27] MEDS ORDERED: PANTOPRAZOLE SODIUM 40 MG VIAL IVPUSH SCH (08:00)
[2018-02-27 08:03] LABS: EOS % 5.1 % (0-4.5); HEMATOCRIT 21.4 % (32.4-45.2); HEMOGLOBIN 7.3 GM/dL (10.7-15.3); LYMPH % 33.4 % (8-40); MCH 29.4 pg (25.7-33.7); MEAN CELL VOLUME 86.6 fl (80-96); MEAN PLT VOLUME 9.2 fl (7.5-11.1); MONO % 2.7 % (3.8-10.2); NEUT % 56.8 % (42.8-82.8); PLATELET COUNT 99 K/MM3 (134-434); RBC 2.47 M/mm3 (3.60-5.2); RDW 14.5 % (11.6-15.6); WHITE BLOOD COUNT 3.7 K/mm3 (4.0-10.0)
--- NOTE | 2018-02-27 08:22 | PN ---
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 (short form) - Note 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: Pulm/CCM SUBJECTIVE: Patient seen and examined in the ICU. 24Hr: -H/h stable yesterday but dropped this am, without hypotension or tachycardia, one slightly dark stool but no overt melena -repeat pending Vital Signs Temp 98.4 F 02/27/18 02:00 Pulse 79 02/27/18 04:00 Resp 18 02/27/18 04:00 BP 112/55 L 02/27/18 04:00 Pulse Ox 99 02/26/18 19:44 Intake & Output 02/26/18 02/26/18 02/27/18 11:59 23:59 11:59 Intake Total 1045 1620 700 Output Total 1300 1200 600 Balance -255 420 100 Weight 51.8 kg 56.2 kg Intake: IV 195 1620 700 1/2 Normal Saline 1,000 1500 700 ml @ 100 mls/hr IV ASDIR [facility] Rx#:[id number] LACTATED RINGERS SOLUTION 125 1,000 ml In 1,000 ml @ 125 mls/hr IV ASDIR [facility] Rx#:[id number] SL 70 pantoprazole 120 IVPB 150 Packed Cells 700 Output: Urine 1300 1200 600 Henley 1300 1200 600 Other: Voiding Method Indwelling Catheter Indwelling Catheter Bowel Movement Yes Yes: tarry stool/medium amount # Bowel Movements 1 Weight Measurement Method Built in [facility] Active Medications Alprazolam (Xanax -) 0.25 mg PO Q8H PRN PRN Reason: ANXIETY Chlorhexidine Gluconate (Hibiclens For Decolonization -) 1 applic TP HS [facility] Last Admin: 02/26/18 22:43 Dose: 1 applic Sodium Chloride (1/2 Normal Saline) 1,000 mls @ 100 mls/hr IV ASDIR [facility] Last Admin: 02/26/18 09:36 Dose: 100 mls/hr Metoprolol Succinate (Toprol Xl -) 25 mg PO DAILY [facility] Last Admin: 02/26/18 12:36 Dose: 25 mg Mupirocin (Bactroban Ointment (For Decolonization) -) 1 applic NS BID [facility] Stop: 03/02/18 09:59 Last Admin: 02/26/18 22:44 Dose: 1 applic Ondansetron HCl (Zofran Injection) 8 mg IVPB Q8H PRN PRN Reason: NAUSEA Pantoprazole Sodium (Protonix Iv) 40 mg IVPUSH BID [facility] Quetiapine Fumarate (Seroquel -) 25 mg PO HS [facility] Last Admin: 02/26/18 22:42 Dose: 25 mg HEENT:P/w/d Neck: Supple Cardiac: S1S2, regular HR 100, Lungs: Clear Abd: soft NT, ND, + BS Ext: (-) edema Skin: No rashes BM: slightly dark stool yesterday afternoon, no melena overnight Laboratory Results - last 24 hr 02/24/18 02/25/18 02/25/18 10:00 10:30 10:59 WBC 3.7 L Corrected WBC (auto) 3.03 RBC Hgb Hct MCV MCH MCHC RDW Plt Count MPV Absolute Neuts (auto) Neutrophils % Neutrophils % (Manual) 59.8 Band Neutrophils % 7.2 Lymphocytes % Lymphocytes % (Manual) 21.6 D Monocytes % Monocytes % (Manual) 4 D Eosinophils % Eosinophils % (Manual) 0.0 Basophils % Basophils % (Manual) 0.0 Myelocytes % (Man) 3 H D Promyelocytes % (Man) 0 Blast Cells % (Manual) 2 H D Nucleated RBC % Metamyelocytes 2 D Hypochromia 0 Platelet Estimate Decreased Polychromasia 1+ Poikilocytosis 2+ Basophilic Stippling Anisocytosis 3+ Microcytosis 3+ Macrocytosis 0 Spherocytes Target Cells 1+ Tear Drop Cells 1+ Ovalocytes Schistocytes 2+ PT with INR INR PTT (Actin FS) Fibrinogen 136.0 L Sodium Potassium Chloride Carbon Dioxide Anion Gap BUN Creatinine Creat Clearance w eGFR Random Glucose Calcium Phosphorus Magnesium Total Bilirubin Direct Bilirubin AST ALT Alkaline Phosphatase C-Reactive Protein Total Protein Albumin Total Amylase Lipase Blood Type O POSITIVE Antibody Screen Negative Crossmatch See Detail 02/25/18 02/25/18 02/25/18 10:59 11:00 20:45 WBC 2.8 L Corrected WBC (auto) RBC 2.27 L Hgb 7.0 L Hct 19.5 L D MCV 86.1 MCH 31.0 MCHC 36.0 RDW 14.0 Plt Count 137 D MPV 9.1 Absolute Neuts (auto) 1.7 Neutrophils % 62.2 Neutrophils % (Manual) 53.0 Band Neutrophils % 8.0 Lymphocytes % 34.3 Lymphocytes % (Manual) 34.0 D Monocytes % 2.8 L Monocytes % (Manual) 0 L D Eosinophils % 0.2 Eosinophils % (Manual) 1.0 D Basophils % 0.5 Basophils % (Manual) 0.0 Myelocytes % (Man) 2 D Promyelocytes % (Man) Blast Cells % (Manual) Nucleated RBC % 2 H Metamyelocytes 2 Hypochromia Platelet Estimate Polychromasia Poikilocytosis Basophilic Stippling 1+ Anisocytosis Microcytosis Macrocytosis Spherocytes Target Cells Tear Drop Cells Ovalocytes Schistocytes PT with INR 15.00 H INR 1.27 H PTT (Actin FS) 22.9 L Fibrinogen Sodium 145 Potassium 4.3 Chloride 110 H Carbon Dioxide 25 Anion Gap 10 BUN 114 H* Creatinine 1.5 H Creat Clearance w eGFR 34.13 Random Glucose 248 H Calcium 7.9 L Phosphorus Magnesium Total Bilirubin 1.3 H Direct Bilirubin AST 16 ALT 24 Alkaline Phosphatase 29 L C-Reactive Protein Total Protein 3.7 L Albumin 2.0 L Total Amylase Lipase Blood Type Antibody Screen Crossmatch 02/25/18 02/26/18 02/26/18 23:15 07:45 07:45 WBC 2.7 L 3.3 L Corrected WBC (auto) 2.92 RBC 2.16 L 3.12 L Hgb 6.6 L* 9.5 L Hct 18.5 L 26.4 L D MCV 85.6 84.5 MCH 30.6 30.3 MCHC 35.7 35.9 RDW 13.6 14.1 Plt Count 133 L 123 L MPV 8.3 8.0 Absolute Neuts (auto) 2.3 Neutrophils % 69.4 Neutrophils % (Manual) 58.6 Band Neutrophils % 1.0 Lymphocytes % 26.3 D Lymphocytes % (Manual) 34.4 Monocytes % 2.0 L Monocytes % (Manual) 0 L Eosinophils % 1.4 D Eosinophils % (Manual) 2.0 D Basophils % 0.9 Basophils % (Manual) 0.0 Myelocytes % (Man) 1 D Promyelocytes % (Man) 0 Blast Cells % (Manual) 0 D Nucleated RBC % 1 H Metamyelocytes 2 Hypochromia 0 Platelet Estimate Decreased Polychromasia 0 Poikilocytosis 2+ Basophilic Stippling Anisocytosis 2+ Microcytosis 1+ Macrocytosis 1+ Spherocytes 1+ Target Cells Tear Drop Cells Ovalocytes 1+ Schistocytes PT with INR INR PTT (Actin FS) Fibrinogen Sodium 155 H Potassium 4.1 Chloride 121 H Carbon Dioxide 27 Anion Gap 6 L BUN 89 H Creatinine 1.1 Creat Clearance w eGFR 48.82 Random Glucose 174 H Calcium 8.0 L Phosphorus 2.8 Magnesium 2.1 Total Bilirubin 1.7 H Direct Bilirubin AST 34 ALT 66 H Alkaline Phosphatase 42 L C-Reactive Protein Total Protein 4.1 L Albumin 2.2 L Total Amylase Lipase Blood Type Antibody Screen Crossmatch 02/26/18 02/26/18 02/26/18 07:45 07:45 07:45 WBC Corrected WBC (auto) RBC Hgb Hct MCV MCH MCHC RDW Plt Count MPV Absolute Neuts (auto) Neutrophils % Neutrophils % (Manual) Band Neutrophils % Lymphocytes % Lymphocytes % (Manual) Monocytes % Monocytes % (Manual) Eosinophils % Eosinophils % (Manual) Basophils % Basophils % (Manual) Myelocytes % (Man) Promyelocytes % (Man) Blast Cells % (Manual) Nucleated RBC % Metamyelocytes Hypochromia Platelet Estimate Polychromasia Poikilocytosis Basophilic Stippling Anisocytosis Microcytosis Macrocytosis Spherocytes Target Cells Tear Drop Cells Ovalocytes Schistocytes PT with INR 14.60 H INR 1.23 H PTT (Actin FS) 25.3 Fibrinogen Sodium Potassium Chloride Carbon Dioxide Anion Gap BUN Creatinine Creat Clearance w eGFR Random Glucose Calcium Phosphorus Magnesium Total Bilirubin Direct Bilirubin 0.4 H AST ALT Alkaline Phosphatase C-Reactive Protein 1.2 H Total Protein Albumin Total Amylase 371 H Lipase 676 H Blood Type Antibody Screen Crossmatch - Problems (1) GI (gastrointestinal hemorrhage) Assessment/Plan: Code(s): K92.2 - GASTROINTESTINAL HEMORRHAGE, UNSPECIFIED (2) Choledocholithiasis Code(s): K80.50 - CALCULUS OF BILE DUCT W/O CHOLANGITIS OR CHOLECYST W/O OBST (3) Fever Code(s): R50.9 - FEVER, UNSPECIFIED (4) Chronic lymphocytic leukemia Code(s): C91.90 - LYMPHOID LEUKEMIA, UNSPECIFIED NOT HAVING ACHIEVED REMISSION (5) Hemolytic anemia Code(s): D58.9 - HEREDITARY HEMOLYTIC ANEMIA, UNSPECIFIED (6) Anxiety disorder Code(s): F41.9 - ANXIETY DISORDER, UNSPECIFIED (7) Nephrolithiasis Code(s): N20.0 - CALCULUS OF KIDNEY (8) Hydronephrosis Code(s): N13.30 - UNSPECIFIED HYDRONEPHROSIS (9) Anemia requiring transfusions Code(s): D64.9 - ANEMIA, UNSPECIFIED (10) Jaundice Code(s): R17 - UNSPECIFIED JAUNDICE Impression: Severe Anemia: Possibly due to hemolytic anemia / R/O occult hemorrhage Do not suspect sepsis S/p Emergent Endoscopic with cauterizaiton and injection, high risk for rebleed O2 as needed repeat CBC now, may need transfusion PPI gtt, will transition to BID as no ulcer GI following, to consider repeat EGD if still bleeding NPO again ICU monitoring Nathalia ACNP 0642 35min CCT
--- NOTE | 2018-02-27 08:46 | PN ---
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 (short form) - Note 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: Pt says she feels fine, denies abdominal pain. CBC, BMP 02/27/18 05:30 02/27/18 05:30 Vital Signs Period Temp Pulse Resp BP Sys/Borjas Pulse Ox Last 24 Hr 98.2 F-98.4 F 74-92 18-18 112-138/55-73 99-99 Hgb down today but BUN also down and patient is not tachycardic. If she had more UGI bleeding I would expect the BUN to rise and patient to have some tachycardia. To repeat Hgb/Hct. If bleeding has resumed will need transfusion and likely repeat EGD. Case discussed with Dr Katy Jordan.
[2018-02-27] MEDS: SODIUM CHLORIDE 0.45% 1,000 ML IV SCH (09:00)
[2018-02-27 09:04] LABS: HEMATOCRIT 22.7 % (32.4-45.2); HEMOGLOBIN 7.9 GM/dL (10.7-15.3); MCH 30.1 pg (25.7-33.7); MCHC 34.9 g/dl (32.0-36.0); MEAN CELL VOLUME 86.2 fl (80-96); MEAN PLT VOLUME 7.6 fl (7.5-11.1); PLATELET COUNT 92 K/MM3 (134-434); RBC 2.64 M/mm3 (3.60-5.2); RDW 14.5 % (11.6-15.6); WHITE BLOOD COUNT 3.8 K/mm3 (4.0-10.0)
[2018-02-27] MEDS: MUPIROCIN 2% TOPICAL OINTMENT FOR DECOLONIZATION NS SCH (10:09)
[2018-02-27] MEDS: metoPROLOL SUCCINATE 25 MG TAB.SR.24H (FP) PO SCH (10:09)
--- NOTE | 2018-02-27 10:38 | PN ---
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, Physician History of Present Illness: The patient is a 72-year-old female, with a past medical history of HTN, CLL ( not on any treatment), thalassemia, anxiety, kidney stones, gallstones, who presents to the ED with facial swelling today. Daughter is at bedside and reports that her mother was complaining of nausea but no vomiting. Patient refused to go to the hospital. Daughter went to visit her mother before work and noted the facial swelling, which is worse under her eyes and the left-side of her face. She also reports that the patient appeared more yellow in color last week but today appears more pale. Patient was scheduled to have blood work drawn today at the hospital per Dr. Sabi Leyva orders. CLL that had so far no required therapy presents with painless jaundice noticed by her daughter. Tracy denies and abdominal pain, jaundice, pruritus , chills or fever but is very reserved in her responses. She was 101 in the ER. Tracy believes that her mother had nausea, anorexia,facila swelling, chills and notes a recent weight loss. Tracy lives with her . Giacomo the daughter informs me that her mother has been refractory to physician interventions and procedures chronically. I saw her in 2013 when a colon cancer screening was advised but she refused. She was close to have a procedure recently with Dr Wren for obstructing nephrolithiasis but refused at the last moment to proceed. Tracy denies any h/o liver disease, IVDA, transfusions and tattoos. She denies ever having had any surgery but in 2013 told me that she had a tonsillectomy and left axillary lymph node biopsy. PMH CRI HTN Hyperlipidemia Negative MIBI stress test June 2013 Nephroliyhiasis PAD 50-70 ICA stenosis 2012 - Current Medication List Current Medications: Active Medications Alprazolam (Xanax -) 0.25 mg PO Q8H PRN PRN Reason: ANXIETY Chlorhexidine Gluconate (Hibiclens For Decolonization -) 1 applic TP HS RYAN Last Admin: 02/26/18 22:43 Dose: 1 applic Sodium Chloride (1/2 Normal Saline) 1,000 mls @ 100 mls/hr IV ASDIR RYAN Last Admin: 02/27/18 09:00 Dose: 100 mls/hr Metoprolol Succinate (Toprol Xl -) 25 mg PO DAILY RYAN Last Admin: 02/27/18 10:09 Dose: 25 mg Mupirocin (Bactroban Ointment (For Decolonization) -) 1 applic NS BID [facility] Stop: 03/02/18 09:59 Last Admin: 02/27/18 10:09 Dose: 1 applic Ondansetron HCl (Zofran Injection) 8 mg IVPB Q8H PRN PRN Reason: NAUSEA Pantoprazole Sodium (Protonix Iv) 40 mg IVPUSH BID [facility] Last Admin: 02/27/18 10:12 Dose: 40 mg Quetiapine Fumarate (Seroquel -) 25 mg PO HS [facility] Last Admin: 02/26/18 22:42 Dose: 25 mg - Objective Vital Signs: Vital Signs Temperature 98.9 F 02/27/18 10:00 Pulse Rate 85 02/27/18 10:00 Respiratory Rate 19 02/27/18 10:00 Blood Pressure 131/67 02/27/18 10:00 O2 Sat by Pulse Oximetry (%) 99 02/26/18 19:44 Eyes: Yes: WNL, Conjunctiva Clear, EOM Intact HENT: Yes: WNL, Atraumatic, Normocephalic Neck: Yes: WNL, Supple, Trachea Midline Cardiovascular: Yes: WNL, Regular Rate and Rhythm Respiratory: Yes: WNL, Regular, CTA Bilaterally Gastrointestinal: Yes: WNL, Normal Bowel Sounds Genitourinary: Yes: WNL Musculoskeletal: Yes: WNL Extremities: Yes: WNL Edema: No Integumentary: Yes: WNL Neurological: Yes: WNL, Alert, Oriented ...Motor Strength: WNL Psychiatric: Yes: WNL Labs: CBC, BMP 02/27/18 08:59 02/27/18 05:30 INR, PTT INR 1.23 (0.83-1.09) H 02/26/18 07:45 Fibrinogen 136.0 mg/dL (238-498) L 02/25/18 10:30 Problem List - Problems (1) Anxiety disorder Code(s): F41.9 - ANXIETY DISORDER, UNSPECIFIED (2) Choledocholithiasis Code(s): K80.50 - CALCULUS OF BILE DUCT W/O CHOLANGITIS OR CHOLECYST W/O OBST (3) Chronic lymphocytic leukemia Code(s): C91.90 - LYMPHOID LEUKEMIA, UNSPECIFIED NOT HAVING ACHIEVED REMISSION (4) Fever Code(s): R50.9 - FEVER, UNSPECIFIED (5) Hemolytic anemia Code(s): D58.9 - HEREDITARY HEMOLYTIC ANEMIA, UNSPECIFIED (6) Hydronephrosis Code(s): N13.30 - UNSPECIFIED HYDRONEPHROSIS (7) Jaundice Code(s): R17 - UNSPECIFIED JAUNDICE (8) Nephrolithiasis Code(s): N20.0 - CALCULUS OF KIDNEY (9) Scleral icterus Code(s): R17 - UNSPECIFIED JAUNDICE Assessment/Plan neutropenia s/p gi bleed and multiple transfusions in ICU s/p EGD emergent: sphincterotomy site bleeding; s/p epi inj and cauterization bleeding stopped for now. hemolisis cholelithiasis htn ECHO nl EF Plan cardiac dyson stable cont present rx watch for chf/bleeding will use lasix if needed monitor i/o cc time spent 36 min
[2018-02-27 10:55] LABS: ANISOCYTOSIS 1+; MACROCYTOSIS 1+; PLATELET ESTIMATE DECREASED
[2018-02-27 11:27] VITALS: PULSE 90
[2018-02-27 14:52] LABS: BASO % 0.5 % (0-2.0); EOS % 2.9 % (0-4.5); HEMATOCRIT 25.4 % (32.4-45.2); HEMOGLOBIN 9.1 GM/dL (10.7-15.3); LYMPH % 37.2 % (8-40); MCH 30.8 pg (25.7-33.7); MCHC 35.8 g/dl (32.0-36.0); MEAN PLT VOLUME 7.9 fl (7.5-11.1); NEUT % 57.4 % (42.8-82.8); PLATELET COUNT 81 K/MM3 (134-434); RBC 2.96 M/mm3 (3.60-5.2); RDW 13.9 % (11.6-15.6); WHITE BLOOD COUNT 3.6 K/mm3 (4.0-10.0)
[2018-02-27 15:03] VITALS: BP 133/61; TEMP 99
[2018-02-27 15:20] LABS: ANION GAP 7 MMOL/L (8-16); BLOOD UREA NITROGEN 38 mg/dL (7-18); CALCIUM 7.8 mg/dL (8.5-10.1); CHLORIDE 112 mmol/L (98-107); CO2 29 mmol/L (21-32); CREATININE 0.9 mg/dL (0.55-1.3); GLUCOSE,RANDOM 93 mg/dL (74-106); INR 1.19 (0.83-1.09); POTASSIUM 3.9 mmol/L (3.5-5.1); PROTHROMBIN TIME (PATIENT) 14.1 SEC (9.7-13.0); SODIUM 148 mmol/L (136-145)
[2018-02-27 16:28] LABS: OVALOCYTE 1+; PLATELET ESTIMATE DECREASED
--- NOTE | 2018-02-27 17:41 | PN ---
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 (short form) - Note 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: covering dr alvarez Problems EBER/unilateral obstruction with staghorn calculi Acute Anemia/GIB HTN, CLL, Thalassemia, anxiety, kidney stones, gallstones alert in nad Lungs clear Heart reg Abd soft Ext no edema CBC, BMP 02/27/18 14:16 02/27/18 14:16 IMP- Prerenal azotemia Hypernatremia GI bleed/anemia still npo on ivf Plan- continue ivf- hypotonic fluids monitor bmp
--- NOTE | 2018-02-27 18:59 | DS ---
Physical Examination Vital Signs: Vital Signs Temperature 99 F 02/27/18 16:00 Pulse Rate 90 02/27/18 16:00 Respiratory Rate 20 02/27/18 16:00 Blood Pressure 133/61 02/27/18 16:00 O2 Sat by Pulse Oximetry (%) 99 02/27/18 09:00 Findings/Remarks: see today progress note PE s/p GB and CBD stones s/p ERCP developed sphincetrotomy site arterial bleed, S/ p repeat EGD and site cauterization 2 days ago, this am developed again black stools and 2 points drop in Hg; transfused 2 U PRBC; d/w GI dr Ga, and d/w pt and pt's daughter - advised transfer to tertiary center for eval by IR and biliary surgery; pt;s daughter said she discussed with her father, pt's , and he is too in agreement with transferring pt to [facility]. Labs: CBC, BMP 02/27/18 14:16 02/27/18 14:16 Discharge Summary Reason For Visit: TRANSFUSION DEPENDENT ANEMIA,FEVER,JAUNDICE Current Active Problems Anxiety disorder (Acute) Choledocholithiasis (Acute) Chronic lymphocytic leukemia (Acute) Diastolic CHF (Acute) Fever (Acute) GI (gastrointestinal hemorrhage) (Acute) HTN (hypertension) (Acute) Hemolytic anemia (Acute) Hydronephrosis (Acute) Jaundice (Acute) Nephrolithiasis (Acute) Pancytopenia (Acute) Scleral icterus (Acute) Procedures: Principal: asdmitted with sever anemia, low WBC, gallstones and CBD stone; h/o CLL; HTN; gallstones CRF and renal stones; also anxiety. Other Procedures: seen by heme, transfused blood products; seen by GI had ERCP and CBD stone extraction, developed UGI bleed had cauterization but GI bleed recurred; transferred to [facility] for IR and biliary surgery eval; needs also cholecystectomy, bone marrow biopsy and renal stones surgery eventually. Hospital Course: see above; transferred from our ICU to [facility] for further management of the biliary stones and GI bleed. d/w pt and pt's family and they agreed with plan. Condition: Stable - Instructions Referrals: Sabi Jordan [Primary Care Provider] - - Home Medications Comprehensive Discharge Medication List: Ambulatory Orders Aspirin [ASA -] 81 mg PO DAILY #0 tab.chew 08/26/12 Amlodipine Besylate [Norvasc -] 10 mg PO DAILY 09/01/13 Losartan Potassium 100 mg PO DAILY 02/15/18 Metoprolol Succinate 50 mg PO DAILY 02/15/18
== END 2018-02-27 18:00 | disposition short-term general hospital (02) | DRG 840 ==
LOC: JER 08:17 → JERBED 11:17 → J4W 02-16 05:14 → J8W 02-18 17:15 → J2W 02-25 10:48 → JICU 02-25 14:03
PROVIDERS: ADMIT Internal Medicine; ATTEND Internal Medicine
PROC: 30233N1 Transfusion of Nonautologous Red Blood Cells into Peripheral Vein, Percutaneous Approach (ICD-10-PCS; 2018-02-15)
PROC: BF10YZZ Fluoroscopy of Bile Ducts using Other Contrast (ICD-10-PCS; 2018-02-21)
PROC: 0FC98ZZ Extirpation of Matter from Common Bile Duct, Via Natural or Artificial Opening Endoscopic (ICD-10-PCS; principal; 2018-02-21 09:30)
PROC: 0W3P8ZZ Control Bleeding in Gastrointestinal Tract, Via Natural or Artificial Opening Endoscopic (ICD-10-PCS; 2018-02-25)
PROC: 30233R1 Transfusion of Nonautologous Platelets into Peripheral Vein, Percutaneous Approach (ICD-10-PCS; 2018-02-25)
PROC: 30233L1 Transfusion of Nonautologous Fresh Plasma into Peripheral Vein, Percutaneous Approach (ICD-10-PCS; 2018-02-25)
PROC: 30233K1 Transfusion of Nonautologous Frozen Plasma into Peripheral Vein, Percutaneous Approach (ICD-10-PCS; 2018-02-25)
PROC: 30233M1 Transfusion of Nonautologous Plasma Cryoprecipitate into Peripheral Vein, Percutaneous Approach (ICD-10-PCS; 2018-02-25)
DX: C91.10 Chronic lymphocytic leukemia of B-cell type not having achieved remission (principal); A41.9 Sepsis, unspecified organism; D59.1 Other autoimmune hemolytic anemias; N13.30 Unspecified hydronephrosis; R17 Unspecified jaundice; N39.0 Urinary tract infection, site not specified; N17.9 Acute kidney failure, unspecified; E87.0 Hyperosmolality and hypernatremia; K92.2 Gastrointestinal hemorrhage, unspecified; R64 Cachexia; D62 Acute posthemorrhagic anemia; K91.840 Postprocedural hemorrhage of a digestive system organ or structure following a digestive system procedure; K80.50 Calculus of bile duct without cholangitis or cholecystitis without obstruction; N20.0 Calculus of kidney; F41.9 Anxiety disorder, unspecified; I12.9 Hypertensive chronic kidney disease with stage 1 through stage 4 chronic kidney disease, or unspecified chronic kidney disease; N18.9 Chronic kidney disease, unspecified; E78.5 Hyperlipidemia, unspecified; D69.6 Thrombocytopenia, unspecified; Z68.21 Body mass index [BMI] 21.0-21.9, adult; D70.9 Neutropenia, unspecified; Y83.9 Surgical procedure, unspecified as the cause of abnormal reaction of the patient, or of later complication, without mention of misadventure at the time of the procedure
CPT/HCPCS: 36415; 36430; 36511; 70450-TC; 71045-TC-FY; 71250-TC; 74176-TC; 74181-TC; 74330-TC; 76775-TC; 76856-TC; 78708-TC; 80048; 80053; 80061; 80076; 81003; 81015; 82140; 82150; 82248; 82272; 82550; 82570; 82607; 82728; 82746; 82930; 83010; 83540; 83550; 83605; 83615; 83690; 83721; 83735; 83880; 84100; 84156; 84300; 84439; 84443; 84484; 85025; 85027; 85044; 85384; 85610; 85651; 85730; 86140; 86618; 86666; 86704; 86706; 86708; 86803; 86850; 86880; 86900; 86901; 86922; 87040; 87045; 87046; 87086; 87177; 87205; 87207; 87209; 87340; 87389; 87799; 88300-TC; 93005; 93010; 93306-TC; 93971; 99284-25; A9562; J0131; J7030; P9012; P9017; P9034; P9038; P9058

== ENCOUNTER 2018-03-31 16:23 | Inpatient (IN) | payer OTHER, MEDICARE ==
--- NOTE | 2018-03-31 18:03 | PDOC ---
History of Present Illness - General Chief Complaint: Cold Symptoms Stated Complaint: FEVER Time Seen by Provider: 03/31/18 16:28 - History of Present Illness Initial Comments: 72yo F with PMH of CLL, HTN, CHF, choledocholithiasis presenting with fever and cough. Patient was sent by her heme/onc specialist, Dr. Garcia for evaluation of fever and cough. She has had a nonproductive cough since mid-February. Patient' s recent history is significant for recent hospital stay. She had cholodocholithiasis in late January which necessitated ERCP with sphinceterotomy at this hospital. Patient's hospital course was complicated by GI bleed for which she was ultimately transferred to [facility]. Patient stayed there for two weeks and was discharged to [facility]. At [facility], she was found to have low hemoglobin for which she was sent to [facility] and transfused. Patient was discharged last night and saw Dr. Garcia today. Dr. Garcia was concerned for patient's recent steroid use and, because she was immunosuppressed and with a fever, decided to send her to the ED. Patient has no chest pain or shortness of breath Past History - Past Medical History Allergies/Adverse Reactions: Allergies Allergy/AdvReac Type Severity Reaction Status Date / Time No Known Drug Allergies Allergy Verified 02/15/18 08:23 Home Medications: Ambulatory Orders Amlodipine Besylate [Norvasc -] 10 mg PO DAILY 03/31/18 Folic Acid 1 mg PO DAILY 03/31/18 Pantoprazole Sodium [Protonix] 40 mg PO DAILY 03/31/18 Prednisone [Deltasone] 30 mg PO ASDIR 03/31/18 Anemia: Yes (THALASSEMIA) Cancer: (Yes; CLL 2013) COPD: No CHF: No Disorders: Yes (RENAL CALCULI) HTN: Yes - Immunization History Immunization Up to Date: Yes - Suicide/Smoking/Psychosocial Hx Smoking Status: No Smoking History: Never smoked Have you smoked in the past 12 months: No Number of Cigarettes Smoked Daily: 0 Hx Alcohol Use: No Drug/Substance Use Hx: No Substance Use Type: None Hx Substance Use Treatment: No Review of Systems - Review of Systems Comments:: Constitutional: +fever, no chills HEENT: no throat pain, no dysphagia Cardiovascular: no chest pain, no palpitations Respiratory: +cough, no shortness of breath Gastrointestinal: no abdominal pain, no nausea, no vomiting Genitourinary: no dysuria, no frequency Musculoskeletal: no myalgia, no arthralgia Skin: no rash, no itching Neurologic: no headache, no dizziness *Physical Exam - Vital Signs Last Vital Signs Temp Pulse Resp BP Pulse Ox 101.1 F H 131 H 17 138/81 97 03/31/18 16:28 03/31/18 16:28 03/31/18 16:28 03/31/18 16:28 03/31/18 16:28 - Physical Exam Comments: General: Awake, alert, and fully oriented, in no acute distress Head: No signs of trauma Eyes: EOMI, sclera anicteric ENT: Moist mucus membranes Neck: Normal ROM, supple Lungs: Rhonchi present on right lower lung base Cardio: Regular rhythm, S1 and S2 present Abdomen: Soft, nontender. No guarding, no rebound, no masses Extremities: Normal range of motion, Distal pulses present SKIN: Warm, Dry, normal turgor Neurologic: Cranial nerves II through XII grossly intact. Normal speech Moderate Sedation - Procedure Monitoring Vital Signs: Procedure Monitoring Vital Signs Temperature 101.1 F H 03/31/18 16:28 Pulse Rate 131 H 03/31/18 16:28 Respiratory Rate 17 03/31/18 16:28 Blood Pressure 138/81 03/31/18 16:28 O2 Sat by Pulse Oximetry (%) 97 03/31/18 16:28 ED Treatment Course - LABORATORY CBC & Chemistry Diagram: 04/02/18 09:08 04/02/18 09:08 - RADIOLOGY Radiology Studies Ordered: Category Date Time Status CHEST X-RAY PORTABLE* [RAD] Stat Radiology 03/31/18 18:01 Ordered Medical Decision Making - Medical Decision Making 72yo F with PMH of CLL, HTN, CHF, choledocholithiasis presenting with fever and cough. -Septic workup ordered -1g Ofirmev; broad coverage with mariam and sanaz -Spoke with Dr. Joseph in the ED who requested consult to hem/onc -Discussed case with Dr. Jordan who accepted patient for admission 03/31/18 19:03 *DC/Admit/Observation/Transfer Diagnosis at time of Disposition: SIRS (systemic inflammatory response syndrome), Cough, Chronic lymphocytic leukemia - Discharge Dispostion Condition at time of disposition: Guarded Decision to Admit order: Yes - Referrals - Patient Instructions - Post Discharge Activity
--- NOTE | 2018-03-31 18:26 | PDOC ---
Attending Attestation - HPI HPI: 03/31/18 19:54 The patient is a 72-year-old female, with a past medical history of HTN, CLL ( not on any treatment), thalassemia, anxiety, kidney stones, gallstones, who presents to the ED with facial swelling today. Daughter is at bedside and reports that her mother was complaining of cough and fever after being discharged from her rehab facility yesterday. She reportedly had cholodocholithiasis in February which was treated with surgery prompting her rehab stay. The patient denies any fevers, chills, vomiting, diarrhea, or abdominal pain. She denies any chest pain or shortness of breath. She denies any urinary symptoms. Allergies: NKDA PCP: Dr. Sabi Jodran Oncologist: Dr. Garcia Gastro: Dr. Ga Cardio: Dr. Wick Uro: Dr. Valdez - Physicial Exam PE: 03/31/18 19:54 Constitutional: Awake, alert, oriented. No acute distress. Head: Normocephalic. Atraumatic Eyes: PERRL. EOMI. Conjunctivae are not pale. ENT: Mucous membranes are moist and intact. Posterior pharynx without exudates or erythema. Uvula midline. Neck: Supple. Full ROM. No lymphadenopathy. Cardiovascular: (+) Tachycardic. Regular rhythm. S1, S2 regular. Distal pulses are 2+ and symmetric. Pulmonary/Chest: (+) Coarse BS bilaterally. No evidence of respiratory distress. No wheezing, rales or rhonchi. Abdominal: Soft and non-distended. There is no tenderness. No rebound, guarding or rigidity. No organomegaly. No palpable masses. Good bowel sounds. Back: No CVA tenderness. Musculoskeletal: No edema. No cyanosis. No clubbing. Full range of motion in all extremities. Nocalf tenderness. Radial/pedal pulses are intact and 2+ bilaterally Skin: (+) ecchymosis to bilateral upper extremities, Hot to touch, Incisions well healed and approximated. Skin is dry. No petechiae. No purpura. Neurological: Alert and oriented to person, place, and time. Cranial nerves II -XII are grossly intact. Normal speech. Strength is grossly symmetric. No sensory deficits. Psychiatric: Good eye contact. Normal interaction, affect and behavior. - Medical Decision Making 03/31/18 19:55 Documentation prepared by Antonella Elias, acting as medical billing representative for Mallorie Padgett DO <Antonella Elias - Last Filed: 03/31/18 19:54> - Resident Resident Name: Claritza Snell - ED Attending Attestation I have performed the following: I have examined & evaluated the patient, The case was reviewed & discussed with the resident, I agree w/resident's findings & plan, Exceptions are as noted - Medical Decision Making 03/31/18 18:26 I, Dr. Mallorie Padgett, DO, attest that this document has been prepared under my direction and personally reviewed by me in its entirety. I further attest, that it accurately reflects all work, treatment, procedures and medical decision -making performed by me. 03/31/18 18:50 a/p: 72yo female with recent hospitalizations for faviola complications and repetitive anemia dc from [facility] yesterday -has been in the hospital for a month -has a fever today and cough - nonproductive -pt denies complaints of cp/sob -febrile in Dr. Bain office - sent for admission for iv abx for poss hospital acquired pna -hx of CLL - not on treatment -will send labs, cultures, broad spectrum abx, cxr, ekg -call placed to Dr. Jordan - PMD for admission -Dr. Joseph at the bedside to eval the patient -discussed the plan with the patient and her daughter who agree with the plan 03/31/18 18:55 resident discussed the case with Dr. Jordan who accepts pt to service 03/31/18 20:17 no elevated wbc flu negative broad spectrum abx ordered and started <Mallorie Padgett - Last Filed: 03/31/18 20:22> Heart Score/ECG Review - ECG Intrepretation Comment:: 03/31/18 19:29 sinus tach at 100, l axis, deviation, q waves anterior leads, no acute st/t wave findings <Mallorie Padgett - Last Filed: 03/31/18 20:22>
[2018-03-31] MEDS ORDERED: VANCOMYCIN 1,000 MG in DEXTROSE 5%-WATER - 250 ML IVPB ONE (18:40)
[2018-03-31] MEDS ORDERED: PIPERACILLIN/TAZOB 4.5 GM 4.5 GM in DEXTROSE 5%-WATER 100 ML IVPB ONE (18:40)
[2018-03-31] MEDS ORDERED: ACETAMINOPHEN 1000 MG/100 ML VIAL (NON FORMULARY) IVPB ONE (18:45)
[2018-03-31] MEDS ORDERED: ALBUTEROL SO4 2.5/IPRATROPIUM 0.5 INH SOL 3 ML VIAL.NEB. NEB ONE ×2 (18:49→18:51)
[2018-03-31] MEDS ORDERED: ACETAMINOPHEN INJECTION 100 ML IVPB ONE (18:52)
[2018-03-31 18:57] LABS: BASO % 0.1 % (0-2.0); HEMATOCRIT 24.2 % (32.4-45.2); HEMOGLOBIN 8.5 GM/dL (10.7-15.3); LYMPH % 5.7 % (8-40); MCH 29.6 pg (25.7-33.7); MCHC 35.3 g/dl (32.0-36.0); MEAN PLT VOLUME 8.5 fl (7.5-11.1); MONO % 1.2 % (3.8-10.2); PLATELET COUNT 74 K/MM3 (134-434); RBC 2.88 M/mm3 (3.60-5.2); RDW 15.3 % (11.6-15.6); WHITE BLOOD COUNT 8.6 K/mm3 (4.0-10.0)
[2018-03-31 19:00] LABS: VENOUS PC02 33.9 mmHg (38-52); VENOUS PH 7.52 (7.32-7.42); VENOUS PO2 73.4 mmHg (28-48)
[2018-03-31 19:10] LABS: INR 1.24 (0.83-1.09); PROTHROMBIN TIME (PATIENT) 14.7 SEC (9.7-13.0)
[2018-03-31] MEDS ORDERED: PIPERACILLIN/TAZOB 4.5 GM 0 GM/0 ML BAG IVPB ONE (19:17)
[2018-03-31] MEDS ORDERED: VANCOMYCIN 1 GRAM (PRE-DOCKED) 1,000 MG/250 ML BAG IVPB ONE (19:18)
[2018-03-31] MEDS ORDERED: PIPERACILLIN/TAZOB 4.5 GM 4.5 GM/100 ML BAG IVPB ONE (19:20)
[2018-03-31 19:30] LABS: ALBUMIN 2.7 g/dl (3.4-5.0); ALK PHOS 74 U/L (45-117); ANION GAP 7 MMOL/L (8-16); BILIRUBIN,TOTAL 1.3 mg/dL (0.2-1); BLOOD UREA NITROGEN 31 mg/dL (7-18); CALCIUM 9.2 mg/dL (8.5-10.1); CHLORIDE 101 mmol/L (98-107); CO2 27 mmol/L (21-32); CREATININE 1.1 mg/dL (0.55-1.3); GLUCOSE,RANDOM 182 mg/dL (74-106); POTASSIUM 4.3 mmol/L (3.5-5.1); SGOT/AST 15 U/L (15-37); SGPT/ALT 21 U/L (13-61); SODIUM 136 mmol/L (136-145); TOT PROT 6.2 g/dl (6.4-8.2)
[2018-03-31] MEDS ORDERED: ACETAMINOPHEN 325 MG TABLET (FP) PO PRN (19:44)
[2018-03-31 20:06] LABS: PLATELET ESTIMATE DECREASED
--- NOTE | 2018-03-31 20:13 | CONSULT ---
Consult - text type - Consultation Consultation Note: The patient is a 72-year-old female, with a past medical history of HTN, CLL, thalassemia, anxiety, kidney stones, gallstones, who presents to the ED with shortness of breath/cough The patient denies any fevers, chills, vomiting, diarrhea, or abdominal pain. She denies any chest pain or shortness of breath. She denies any urinary symptoms. Allergies: NKDA - Physicial Exam Vital Signs Temperature 98.7 F 04/01/18 06:00 Pulse Rate 118 H 04/01/18 06:00 Respiratory Rate 18 04/01/18 06:00 Blood Pressure 153/67 04/01/18 06:00 O2 Sat by Pulse Oximetry (%) 97 03/31/18 21:38 Cor: RSR, No murmurs, No gallops Lungs: decreased at bases Abd: Soft, Normal bowel sounds, No organomegaly Ext:No significant edema Labs/Meds reviewed A/P 72yo female with recent hospitalization for biliary sepsis/anemia recent BMBX showing CLL Comes in with fever/nonproductive cough will check chest CT Broad spectrum antibiotics ID consult
[2018-03-31 22:21] LABS: URINE APPEARANCE CLOUDY; URINE BILIRUBIN NEGATIVE (<2.0 mg/dL); URINE COLOR YELLOW; URINE GLUCOSE (UA) 3+ (NEGATIVE); URINE KETONE NEGATIVE (NEGATIVE); URINE LEUK ESTERASE 3+ (NEGATIVE); URINE NITRITE NEGATIVE (NEGATIVE); URINE PROTEIN 1+ (NEGATIVE); URINE UROBILINOGEN NEGATIVE mg/dL (0.2-1.0)
[2018-03-31 22:26] LABS: EPI CELLS RARE /HPF (FEW); URIC ACID CRYSTALS RARE /hpf (NONE SEEN); URINE BACTERIA MANY /hpf (NONE SEEN); URINE MUCUS RARE
[2018-04-01] MEDS ORDERED: PIPERACILLIN/TAZOBACTAM 3.375 GM VIAL IVPB ONE ×4 (01:17→23:22)
[2018-04-01] MEDS ORDERED: DEXTROSE 5%-WATER - 50 ML IVPB ONE ×4 (01:18→23:23)
[2018-04-01] MEDS: PIPERACILLIN/TAZOB 3.375 GM 3.375 GM in DEXTROSE 5%-WATER - 50 ML IVPB SCH ×3 (01:32→17:20)
--- NOTE | 2018-04-01 07:21 | HP ---
Admitting History and Physical - Primary Care Physician PCP: Sabi Jordan - Admission Chief Complaint: fever immunosupressed History of Present Illness: 72yo F with PMH of CLL, HTN, CHF, choledocholithiasis presenting with fever and cough. Patient was sent by her heme/onc specialist, Dr. Garcia for evaluation of fever and cough. She has had a nonproductive cough since mid-February. Patient' s recent history is significant for recent hospital stay. She had cholodocholithiasis in late January which necessitated ERCP with sphinceterotomy at this hospital. Patient's hospital course was complicated by GI bleed for which she was ultimately transferred to [facility]. Patient stayed there for two weeks and was discharged to [facility]. At [facility], she was found to have low hemoglobin for which she was sent to [facility] and transfused. Patient was discharged last night and saw Dr. Garcia yesterday. Dr. Gracia was concerned for patient's recent steroid use and, because she was immunosuppressed and with a fever, decided to send her to the ED. Patient has no chest pain or shortness of breath History Source: Patient, Medical Record, Caregiver Limitations to Obtaining History: No Limitations - Past Medical History Cardiovascular: Yes: HTN Gastrointestinal: Yes: Diverticulosis (on CT scan) Hepatobiliary: Yes: Cholelithiasis Renal/: Yes: Renal Calculi. 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 of Recent Travel: No Home Medications - Allergies Allergies/Adverse Reactions: Allergies Allergy/AdvReac Type Severity Reaction Status Date / Time No Known Drug Allergies Allergy Verified 02/15/18 08:23 - Home Medications Home Medications: Ambulatory Orders Amlodipine Besylate [Norvasc -] 10 mg PO DAILY 03/31/18 Folic Acid 1 mg PO DAILY 03/31/18 Pantoprazole Sodium [Protonix] 40 mg PO DAILY 03/31/18 Prednisone [Deltasone] 30 mg PO ASDIR 03/31/18 Family Disease History - Family Disease History Family Disease History: Other: Father (in his 80's pneumonia), Mother ( age 93 of CVA hemorrhage) Review of Systems - Review of Systems Constitutional: reports: Fever, Loss of Appetite, Night Sweats, Unintentional Wgt. Loss, Weakness. denies: Chills, Lethargy Eyes: denies: Blind Spots, Blurred Vision, Double Vision HENT: denies: Difficult Swallowing, Ear Pain, Epistaxis Cardiovascular: denies: Chest Pain, Shortness of Breath Respiratory: reports: Cough (occasioanl dry). denies: SOB, SOB on Exertion Gastrointestinal: denies: Abdominal Pain, Bloating, Constipation, Diarrhea, Rectal Bleeding, Vomiting Genitourinary: denies: Burning, Discharge, Dysuria, Flank Pain, Frequency Musculoskeletal: denies: Back Pain, Crepitus, Extremity Pain, Joint Swelling, Muscle Pain Neurological: denies: Change in LOC, Change in Speech, Confusion, Dizziness Hematology/Lymphatic: denies: Easily Bruised, Excessive Bleeding Psychiatric: reports: Anxiety. denies: Altered Sleep Pattern, Depression, Suicidal Physical Examination Vital Signs: Vital Signs Temperature 98.7 F 04/01/18 06:00 Pulse Rate 118 H 04/01/18 06:00 Respiratory Rate 18 04/01/18 06:00 Blood Pressure 153/67 04/01/18 06:00 O2 Sat by Pulse Oximetry (%) 97 03/31/18 21:38 Constitutional: Yes: No Distress, Calm Eyes: Yes: Conjunctiva Clear HENT: Yes: Atraumatic Neck: Yes: Supple Cardiovascular: Yes: Regular Rate and Rhythm Respiratory: Yes: CTA Bilaterally Gastrointestinal: Yes: Soft. No: Distention Renal/: No: CVA Tenderness - Left, CVA Tenderness - Right, Hematuria Musculoskeletal: No: Joint Stiffness, Joint Swelling Extremities: No: Cold, Cool, Cyanosis Edema: No Integumentary: No: Rash, Venous Stasis Changes Neurological: Yes: WNL, Alert, Oriented ...Motor Strength: WNL Psychiatric: Yes: WNL, Alert, Oriented. No: Agitated, Suicidal Ideation Labs: CBC, BMP 03/31/18 18:40 03/31/18 18:40 Imaging - Results Chest X-ray: Report Reviewed Other: Report Reviewed Assessment/Plan 72yo F with PMH of CLL, HTN, CHF, choledocholithiasis presenting with fever and cough. Patient was sent by her heme/onc specialist, Dr. Garcia for evaluation of fever and cough and some nonproductive cough Patient is on steroids and immunosuppressed, and with fever therefore she needs admission for further w/u and treatment. IV antibiotics per IDheme onc eval f/u labs and cultures might need transfusions if blood counts drop falls decubs DVT pfx d/w pt do not get OOB alone, ask for help if needs OOB DVT Pfx ambulate and TEds SDC wound not use heparin given h/o severe anemia and low PLT prognosis guarded d /w pt and staff, will call pt's daughter
[2018-04-01 07:57] LABS: BASO % 0.5 % (0-2.0); EOS % 0.1 % (0-4.5); HEMATOCRIT 24.6 % (32.4-45.2); HEMOGLOBIN 8.1 GM/dL (10.7-15.3); LYMPH % 17.8 % (8-40); MCH 28.3 pg (25.7-33.7); MCHC 32.8 g/dl (32.0-36.0); MEAN CELL VOLUME 86.3 fl (80-96); MONO % 1.6 % (3.8-10.2); RBC 2.85 M/mm3 (3.60-5.2); RDW 15.4 % (11.6-15.6); WHITE BLOOD COUNT 7.3 K/mm3 (4.0-10.0)
[2018-04-01 08:20] LABS: ALBUMIN 2.6 g/dl (3.4-5.0); ALK PHOS 78 U/L (45-117); ANION GAP 8 MMOL/L (8-16); BLOOD UREA NITROGEN 32 mg/dL (7-18); CALCIUM 8.8 mg/dL (8.5-10.1); CHLORIDE 100 mmol/L (98-107); CO2 29 mmol/L (21-32); CREATININE 1.2 mg/dL (0.55-1.3); GLUCOSE,RANDOM 118 mg/dL (74-106); POTASSIUM 4.4 mmol/L (3.5-5.1); SGOT/AST 16 U/L (15-37); SGPT/ALT 20 U/L (13-61); SODIUM 137 mmol/L (136-145); TOT PROT 6.3 g/dl (6.4-8.2)
[2018-04-01 08:20] LABS: MEAN PLT VOLUME 5.6 fl (7.5-11.1)
--- NOTE | 2018-04-01 09:10 | EKG ---
Test Reason : Blood Pressure : / mmHG Vent. Rate : 100 BPM Atrial Rate : 100 BPM P-R Int : 128 ms QRS Dur : 074 ms QT Int : 320 ms P-R-T Axes : 068 -70 058 degrees QTc Int : 412 ms SINUS RHYTHM WITH PREMATURE ATRIAL COMPLEXES LEFT AXIS DEVIATION ABNORMAL ECG WHEN COMPARED WITH ECG OF 15-FEB-2018 09:37, ST NO LONGER DEPRESSED IN LATERAL LEADS NONSPECIFIC T WAVE ABNORMALITY NO LONGER EVIDENT IN INFERIOR LEADS T WAVE AMPLITUDE HAS INCREASED IN ANTERIOR LEADS Confirmed by CLAUDY ROBINS, DILMA ([id number]) on 04/01/2018 9:09:43 AM Referred By: Confirmed By:DILMA LOCO MD
[2018-04-01] MEDS: PANTOPRAZOLE 40 MG TABLET (FP) PO SCH (09:39)
[2018-04-01] MEDS: predniSONE 20 MG TABLET (UD) PO SCH (09:39)
[2018-04-01] MEDS: amLODIPine BESYLATE 2.5 MG TABLET (FP) PO SCH (09:39)
[2018-04-01] MEDS: FOLIC ACID 1 MG TABLET (FP) PO SCH (09:39)
[2018-04-01] MEDS ORDERED: VANCOMYCIN 1 GRAM (PRE-DOCKED) 1,000 MG/250 ML BAG IVPB SCH (10:00)
[2018-04-01] MEDS ORDERED: PNEUMOC 13-VAL CONJ-DIP CRM/PF 0.5 ML DISP.SYRIN IM ONE (10:00)
--- NOTE | 2018-04-01 10:08 | PN ---
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 (short form) - Note 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: ID consult dictated imp/reccd 72 yo female with CLL, admitted with fever to 102.6 while at oncologist office +cough +prednisone recent admission to [facility] received vanco/zosyn in ED currently afebrile normal WBC chest ct with ?pulmonary nodule, and small LLL infiltrate influenza antigen negative pyuria HAP ?viral UTI dementia CKD CLL on prednisone at this time check rsv antigen check urinary antigens f/u cultures continue zosyn adjusted for ckd further reccd to follow Problem List - Problems (1) Fever Code(s): R50.9 - FEVER, UNSPECIFIED (2) Pneumonia Code(s): J18.9 - PNEUMONIA, UNSPECIFIED ORGANISM (3) UTI (urinary tract infection) Code(s): N39.0 - URINARY TRACT INFECTION, SITE NOT SPECIFIED (4) CKD (chronic kidney disease) Code(s): N18.9 - CHRONIC KIDNEY DISEASE, UNSPECIFIED (5) Chronic lymphocytic leukemia Code(s): C91.90 - LYMPHOID LEUKEMIA, UNSPECIFIED NOT HAVING ACHIEVED REMISSION
--- NOTE | 2018-04-01 10:56 | CONS ---
DATE OF CONSULTATION: 04/01/2018 This is a 72-year-old woman. She has a history of CLL. She was recently hospitalized at [facility] in end of January. She was transferred early February to [facility]. She was discharged care home, readmitted to [facility], just discharged home and readmitted yesterday from Dr. Garcia's office with fever and cough. Temperature was high as 102.6 in his office. She is mildly demented. She has no complaints whatsoever and says she feels well. Her past medical history is notable for the fact that she was recently hospitalized February 15 to February 27 at [facility]. During that admission she had pancytopenia and choledocholithiasis. She had an ERCP with CBD stone extraction and a GI bleed. She was transferred to [facility]. While there, she underwent certainly and clipping of the bleeding site status post sphincterotomy. She underwent a bone marrow biopsy with 45% to 50% CLL. She also had a left axillary node that revealed CLL. PAST MEDICAL HISTORY: Notable for choledocholithiasis status post sphincterotomy with accompanying GI bleed, history of CLL, hypertension, mild dementia, CKD, kidney stones. She has a history as well of thalassemia. She is status post tonsillectomy, and she has had a left axillary lymph node biopsy. SOCIAL HISTORY: She lives with her daughter, she says. 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 There is no history of recent travel and no history of any cigarette or substance use. ALLERGIES: She has no known drug allergies. MEDICATIONS: Her medications at the time of admission included prednisone, Protonix, folic acid, and amlodipine. REVIEW OF SYSTEMS: She has no complaints whatsoever. She denies chest pain, abdominal pain, nausea, vomiting, diarrhea, or dysuria, though she does think she is 50, so she is pleasantly demented. PHYSICAL EXAMINATION: General: She is resting comfortably. Vital Signs: Temperature is 98.7. T-max was 101.1. HEENT: She is normocephalic. Her eyes are anicteric. She has a blood clot. It looks like she had some bleeding from her gums on the left side of her mandible, but the patient denies that she had any bleeding. She has no evidence of pharyngitis. She does not complain of sore throat. Neck: Supple. Axillae: She has some bilateral axillary adenopathy, right greater than left. Cardiovascular: Her heart is regular rate and rhythm. Respiratory: Her lungs have diminished breath sounds at the bases. Gastrointestinal: Her abdomen is soft, nontender. Extremities: She has multiple bruises, especially on her arms. DIAGNOSTIC DATA: Labs are notable for white count of 7.3, hemoglobin 8.1. Platelets are pending. She has 80% neutrophils. Her BUN and creatinine are 32 and 1.2. LFTs are normal. Urinalysis has 154 white cells, 3+ leukocyte esterase. Influenza screen was negative. Blood cultures, urine culture are pending. Chest CT is notable for a small left basilar infiltrate and a nonspecific right upper lobe pulmonary nodule. SUMMARY: This is a 72-year-old woman with CLL, on prednisone, admitted with fever. She was started on vancomycin and Zosyn, this morning is currently afebrile. She has normal white count. CAT scan with a small left lower lobe infiltrate and a questionable right upper lobe pulmonary nodule. Influenza antigen is negative. She has evidence of pyuria in her urine. I would suggest we treat her at this time for pneumonia. Question whether this is viral or check an RSV antigen and urinary antigens. Cultures are pending. Influenza screen is negative. As well, this could be UTI. Would continue the Zosyn as ordered, adjusted for her CKD. Lastly, she has dementia and is a poor historian, and she has CLL, on prednisone at this time. Further recommendations to follow. LUIS ALBERTO HURLEY M.D. [id number]
[2018-04-01 12:03] LABS: PLATELET COUNT 14 K/MM3 (134-434)
--- NOTE | 2018-04-01 18:39 | PN ---
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 (short form) - Note 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: Patient seen and examined Offers no specific complaints Has 3+ leucocyte esterase and small LLL infiltrate On antibiotics per ID Last Vital Signs Temp Pulse Resp BP Pulse Ox 98.2 F 101 H 18 119/72 97 04/01/18 15:41 04/01/18 15:41 04/01/18 15:41 04/01/18 15:41 04/01/18 09:00 HEENT: FELIBERTO, EOM Intact Oropharynx: No thrush, No mucositis Neck: Supple Nodes: Without adenopathy Breasts: Without masses Cor: RSR, No murmurs, No gallops Lungs: scattered rhonchi Abd: Soft, Normal bowel sounds, No organomegaly Ext:No significant edema Skin: No rashes, Integument intact CBC, BMP 04/01/18 06:00 04/01/18 06:30 Current Medications Generic Name Dose Route Start Last Admin Trade Name Freq PRN Reason Stop Dose Admin Acetaminophen 650 mg 03/31/18 19:44 Tylenol - PO Q6H PRN FEVER Amlodipine Besylate 2.5 mg 04/01/18 10:00 04/01/18 09:39 Norvasc - PO 2.5 mg DAILY RYAN Administration Folic Acid 1 mg 04/01/18 10:00 04/01/18 09:39 Folic Acid - PO 1 mg DAILY RYAN Administration Piperacillin Sod/Tazobactam 50 mls @ 100 mls/hr 04/01/18 18:00 04/01/18 17:20 Sod 3.375 gm/ Dextrose IVPB 100 mls/hr Q8H-IV RYAN Administration Protocol Pantoprazole Sodium 40 mg 04/01/18 10:00 04/01/18 09:39 Protonix - PO 40 mg DAILY RYAN Administration Prednisone 20 mg 04/01/18 10:00 04/01/18 09:39 Deltasone - PO 20 mg DAILY RYAN Administration Impression CLL LLLinfitrate Pyuria Pulmonary nodule Anemia Thrombocytopenia Plan : Antibiotics per ID LDH ,retic , haptoglobin stool guaic transfuse platelets Rituxin therapy in future
[2018-04-02] MEDS: PIPERACILLIN/TAZOB 3.375 GM 3.375 GM in DEXTROSE 5%-WATER - 50 ML IVPB SCH ×3 (01:23→19:28)
--- NOTE | 2018-04-02 01:57 | CON.CARD ---
Consult Consult Specialty:: cardiology Reason for Consultation:: PAF; CHF; CA - History of Present Illness History of Present Illness: 72yo white woman with PMH of CLL, PAD (70% Lt iliac stenosis), hyperlipidemia, HTN, diastolic CHF, choledocholithiasis, now presenting with fever and cough. Patient was sent by her heme/onc specialist, Dr. Garcia. Patient's recent history is significant for recent hospital stay. She had cholodocholithiasis in late January which necessitated ERCP with sphinceterotomy at this hospital. Patient's hospital course was significant for GI bleed for which she was ultimately transferred to [facility]. Patient stayed there for two weeks and was discharged to [facility]. At [facility], she was found to have low hemoglobin for which she was sent to [facility] and transfused. Patient was discharged last night and saw Dr. Garcia today. Patient has no chest pain or shortness of breath - History Source History Provided By: Patient, Medical Record Limitations to Obtaining History: Poor Historian - Past Medical History Cardio/Vascular: Yes: HTN Gastrointestinal: Yes: Diverticulosis (on CT scan) Hepatobiliary: Yes: Cholelithiasis Renal/: Yes: Renal Calculi. No: Hematuria, UTI Reproductive: Yes: Postmenopausal ...: No Heme/Onc: Yes: Anemia, Thrombocytopenia (decreasing since at least 01/2018) Psych: Yes: Anxiety Musculoskeletal: Yes: Chronic low back pain - Past Surgical History Past Surgical History: Yes: Tonsillectomy Additional Surgical History: ERCP with sphincterotomy 2017 - Alcohol/Substance Use Hx Alcohol Use: No History of Substance Use: reports: None - Smoking History Smoking history: Never smoked Have you smoked in the past 12 months: No Aproximately how many cigarettes per day: 0 - Social History Usual Living Arrangement: With Spouse ADL: Independent 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 of Recent Travel: No Home Medications - Allergies Allergies/Adverse Reactions: Allergies Allergy/AdvReac Type Severity Reaction Status Date / Time No Known Drug Allergies Allergy Verified 02/15/18 08:23 - Home Medications Home Medications: Ambulatory Orders Amlodipine Besylate [Norvasc -] 10 mg PO DAILY 03/31/18 Folic Acid 1 mg PO DAILY 03/31/18 Pantoprazole Sodium [Protonix] 40 mg PO DAILY 03/31/18 Prednisone [Deltasone] 30 mg PO ASDIR 03/31/18 Family Disease History - Family Disease History Family Disease History: Other: Father (in his 80's pneumonia), Mother ( age 93 of CVA hemorrhage) Review of Systems - Review of Systems Constitutional: reports: Weakness Eyes: reports: No Symptoms HENT: reports: No Symptoms Neck: reports: Pain on Movement Cardiovascular: reports: Shortness of Breath Respiratory: reports: Exercise Intolerance, SOB Gastrointestinal: reports: Bloating Genitourinary: reports: No Symptoms Breasts: reports: No Symptoms Reported Musculoskeletal: reports: Muscle Weakness Integumentary: reports: Pallor Neurological: reports: Weakness Endocrine: reports: Intolerance to Cold Hematology/Lymphatic: reports: Easily Bruised Psychiatric: reports: Anxiety - Risk Factors Known Risk Factors: Yes: Age, Hypercholesterolemia, Hypertension, Physical Inactivity Vital Signs: Vital Signs Temperature 98.1 F 04/01/18 21:01 Pulse Rate 98 H 04/01/18 18:00 Respiratory Rate 20 04/01/18 21:01 Blood Pressure 109/50 L 04/01/18 21:01 O2 Sat by Pulse Oximetry (%) 97 04/01/18 21:00 Constitutional: Yes: Anxious, Cachectic, Mild Distress Eyes: Yes: WNL HENT: Yes: WNL Neck: Yes: WNL Respiratory: Yes: Diminished, SOB Gastrointestinal: Yes: Soft Renal/: No: Anuria Heart Sounds: Yes: S1, Split S2 Murmur: Yes: Systolic Murmur, Grade 1 Musculoskeletal: Yes: Muscle Weakness Extremities: Yes: Cool Edema: No Peripheral Pulses WNL: No Peripheral Pulses: 1+ Left Doralis Pedis, 1+ Right Dorsalis Pedis Integumentary: Yes: Bruising Neurological: Yes: Alert, Weakness Psychiatric: Yes: Other - Other Data Labs, Other Data: CBC, BMP 04/01/18 06:00 04/01/18 06:30 INR, PTT INR 1.24 (0.83-1.09) H 03/31/18 18:40 Abnormal Lab Results 04/01/18 04/01/18 06:00 06:30 RBC 2.85 L Hgb 8.1 L Hct 24.6 L Plt Count 14 L* D MPV 5.6 L D Monocytes % 1.6 L Nucleated RBC % 1 H BUN 32 H Random Glucose 118 H Total Protein 6.3 L Albumin 2.6 L Echo: Report Reviewed Ejection Fraction %: LVEF > or = 40 % Imaging - Results Chest X-ray: Image Reviewed Cat Scan: Image Reviewed Problem List - Problems (1) CKD (chronic kidney disease) Code(s): N18.9 - CHRONIC KIDNEY DISEASE, UNSPECIFIED (2) Chronic lymphocytic leukemia Code(s): C91.90 - LYMPHOID LEUKEMIA, UNSPECIFIED NOT HAVING ACHIEVED REMISSION (3) SIRS (systemic inflammatory response syndrome) Code(s): R65.10 - SIRS OF NON-INFECTIOUS ORIGIN W/O ACUTE ORGAN DYSFUNCTION (4) Anxiety disorder Code(s): F41.9 - ANXIETY DISORDER, UNSPECIFIED (5) Choledocholithiasis Assessment/Plan: f/u with oncologist, GI. Code(s): K80.50 - CALCULUS OF BILE DUCT W/O CHOLANGITIS OR CHOLECYST W/O OBST (6) Diastolic CHF Assessment/Plan: BNP > 1,300 (double its level of several years ago) ECHO: normal LVEF; abnormal diastolic compliance; mlild MR and TR F/u BUN/Cr, electrolytes, daily wt, Is and Os. Code(s): I50.30 - UNSPECIFIED DIASTOLIC (CONGESTIVE) HEART FAILURE (7) Fever Code(s): R50.9 - FEVER, UNSPECIFIED (8) GI (gastrointestinal hemorrhage) Code(s): K92.2 - GASTROINTESTINAL HEMORRHAGE, UNSPECIFIED (9) HTN (hypertension) Code(s): I10 - ESSENTIAL (PRIMARY) HYPERTENSION (10) Nephrolithiasis Code(s): N20.0 - CALCULUS OF KIDNEY (11) Thrombocytopenia Assessment/Plan: hold all antiplatelets Code(s): D69.6 - THROMBOCYTOPENIA, UNSPECIFIED (12) Anemia Code(s): D64.9 - ANEMIA, UNSPECIFIED (13) PAD (peripheral artery disease) Code(s): I73.9 - PERIPHERAL VASCULAR DISEASE, UNSPECIFIED
--- NOTE | 2018-04-02 09:19 | PN ---
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, Physician Chief Complaint: in bed awke NAD afebrile consults noted pt feels well and she wants to go home - Current Medication List Current Medications: Active Medications Acetaminophen (Tylenol -) 650 mg PO Q6H PRN PRN Reason: FEVER Amlodipine Besylate (Norvasc -) 2.5 mg PO DAILY [facility] Last Admin: 04/01/18 09:39 Dose: 2.5 mg Folic Acid (Folic Acid -) 1 mg PO DAILY [facility] Last Admin: 04/01/18 09:39 Dose: 1 mg Piperacillin Sod/Tazobactam (Sod 3.375 gm/ Dextrose) 50 mls @ 100 mls/hr IVPB Q8H-IV RYAN; Protocol Last Admin: 04/02/18 01:23 Dose: 100 mls/hr Pantoprazole Sodium (Protonix -) 40 mg PO DAILY [facility] Last Admin: 04/01/18 09:39 Dose: 40 mg Prednisone (Deltasone -) 20 mg PO DAILY [facility] Last Admin: 04/01/18 09:39 Dose: 20 mg - Objective Vital Signs: Vital Signs Temperature 99.4 F 04/02/18 06:27 Pulse Rate 92 H 04/02/18 06:27 Respiratory Rate 20 04/02/18 06:27 Blood Pressure 133/62 04/02/18 06:27 O2 Sat by Pulse Oximetry (%) 97 04/01/18 21:00 Constitutional: Yes: No Distress, Calm Eyes: Yes: Conjunctiva Clear HENT: Yes: Atraumatic Neck: Yes: Supple Cardiovascular: Yes: Regular Rate and Rhythm Respiratory: Yes: CTA Bilaterally Gastrointestinal: Yes: Soft. No: Distention Genitourinary: No: CVA Tenderness - Left, CVA Tenderness - Right Musculoskeletal: No: Joint Stiffness, Joint Swelling Extremities: No: Cold, Cool, Cyanosis, Deformity Edema: No Integumentary: No: Rash, Venous Stasis Changes Neurological: Yes: WNL, Alert, Oriented ...Motor Strength: WNL Psychiatric: Yes: WNL, Alert, Oriented. No: Agitated, Suicidal Ideation Labs: CBC, BMP 04/01/18 06:00 04/01/18 06:30 INR, PTT INR 1.24 (0.83-1.09) H 03/31/18 18:40 - ....Imaging Other: Report Reviewed Assessment/Plan 72yo F with PMH of CLL, HTN, CHF, choledocholithiasis presenting with fever and cough. Patient was sent by her heme/onc specialist, Dr. Garcia for evaluation of fever and cough and some nonproductive cough Patient is on steroids and immunosuppressed, and with fever, cultures pending IV antibiotics per IDheme onc eval f/u labs and cultures might need transfusions if blood counts drop falls decubs DVT pfx d/w pt do not get OOB alone, ask for help if needs OOB DVT Pfx ambulate and TEds SDC wound not use heparin given h/o severe anemia and low PLT prognosis guarded d /w pt and staff
[2018-04-02] MEDS ORDERED: PIPERACILLIN/TAZOBACTAM 3.375 GM VIAL IVPB ONE ×2 (09:36→17:36)
[2018-04-02] MEDS ORDERED: DEXTROSE 5%-WATER - 50 ML IVPB ONE ×2 (09:36→17:36)
[2018-04-02] MEDS: amLODIPine BESYLATE 2.5 MG TABLET (FP) PO SCH (09:40)
[2018-04-02] MEDS: predniSONE 20 MG TABLET (UD) PO SCH (09:40)
[2018-04-02] MEDS: PANTOPRAZOLE 40 MG TABLET (FP) PO SCH (09:40)
[2018-04-02] MEDS: FOLIC ACID 1 MG TABLET (FP) PO SCH (09:40)
[2018-04-02 09:55] LABS: BASO % 1.2 % (0-2.0); EOS % 0.3 % (0-4.5); HEMATOCRIT 23.7 % (32.4-45.2); HEMOGLOBIN 7.6 GM/dL (10.7-15.3); LYMPH % 16.4 % (8-40); MCH 27.7 pg (25.7-33.7); MCHC 32.1 g/dl (32.0-36.0); MEAN CELL VOLUME 86.4 fl (80-96); MONO % 2.3 % (3.8-10.2); NEUT % 79.8 % (42.8-82.8); RBC 2.74 M/mm3 (3.60-5.2); RDW 15.3 % (11.6-15.6); RETICULOCYTES 3.52 % (0.5-1.5); WHITE BLOOD COUNT 6.1 K/mm3 (4.0-10.0)
[2018-04-02 10:35] LABS: MEAN PLT VOLUME 7.5 fl (7.5-11.1)
[2018-04-02 10:37] LABS: PLATELET COUNT 14 K/MM3 (134-434)
[2018-04-02 11:07] LABS: ALBUMIN 2.5 g/dl (3.4-5.0); ALK PHOS 76 U/L (45-117); ANION GAP 8 MMOL/L (8-16); BLOOD UREA NITROGEN 29 mg/dL (7-18); CALCIUM 8.7 mg/dL (8.5-10.1); CHLORIDE 101 mmol/L (98-107); CO2 27 mmol/L (21-32); CREATININE 1.3 mg/dL (0.55-1.3); LDH 232 U/L (84-246); POTASSIUM 4.2 mmol/L (3.5-5.1); SGOT/AST 17 U/L (15-37); SGPT/ALT 22 U/L (13-61); SODIUM 136 mmol/L (136-145); TOT PROT 6.3 g/dl (6.4-8.2); URIC ACID 2.7 mg/dL (2.6-7.2)
[2018-04-02 11:09] LABS: GLUCOSE,RANDOM 317 mg/dL (74-106)
[2018-04-02 11:53] LABS: ANISOCYTOSIS 0; MACROCYTOSIS 0; OVALOCYTE 1+; PLATELET ESTIMATE DECREASED
--- NOTE | 2018-04-02 12:36 | EKG ---
Test Reason : Blood Pressure : / mmHG Vent. Rate : 096 BPM Atrial Rate : 096 BPM P-R Int : 130 ms QRS Dur : 076 ms QT Int : 314 ms P-R-T Axes : 069 -68 044 degrees QTc Int : 396 ms SINUS RHYTHM WITH PREMATURE ATRIAL COMPLEXES LEFT AXIS DEVIATION ABNORMAL ECG WHEN COMPARED WITH ECG OF 31-MAR-2018 19:02, NO SIGNIFICANT CHANGE WAS FOUND Confirmed by MD JOHN, BRANDON ([id number]) on 04/02/2018 12:35:26 PM Referred By: Hannah DALEY Confirmed By:BRANDON LOPEZ MD
--- NOTE | 2018-04-02 12:36 | PN ---
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, Physician History of Present Illness: Supine in bed Offers no complaints Temps down Afebrile WBC WNL plt 14K RSV (-) Urine c/s LF - Current Medication List Current Medications: Active Medications Acetaminophen (Tylenol -) 650 mg PO Q6H PRN PRN Reason: FEVER Amlodipine Besylate (Norvasc -) 2.5 mg PO DAILY [facility] Last Admin: 04/02/18 09:40 Dose: 2.5 mg Folic Acid (Folic Acid -) 1 mg PO DAILY [facility] Last Admin: 04/02/18 09:40 Dose: 1 mg Piperacillin Sod/Tazobactam (Sod 3.375 gm/ Dextrose) 50 mls @ 100 mls/hr IVPB Q8H-IV RYAN; Protocol Last Admin: 04/02/18 09:40 Dose: 100 mls/hr Pantoprazole Sodium (Protonix -) 40 mg PO DAILY [facility] Last Admin: 04/02/18 09:40 Dose: 40 mg Prednisone (Deltasone -) 20 mg PO DAILY [facility] Last Admin: 04/02/18 09:40 Dose: 20 mg - Objective Vital Signs: Vital Signs Temperature 98.1 F 04/02/18 10:00 Pulse Rate 107 H 04/02/18 10:00 Respiratory Rate 18 04/02/18 10:00 Blood Pressure 131/81 04/02/18 10:00 O2 Sat by Pulse Oximetry (%) 97 04/01/18 21:00 Constitutional: Yes: No Distress Cardiovascular: Yes: Regular Rate and Rhythm, S1, S2 Respiratory: Yes: Diminished Gastrointestinal: Yes: Normal Bowel Sounds, Soft. No: Tenderness Edema: No Labs: CBC, BMP 04/02/18 09:08 04/02/18 09:08 INR, PTT INR 1.24 (0.83-1.09) H 03/31/18 18:40 Assessment/Plan LLL pneumonia UTI Fever- improved CLL Thrombocytopenia CKD Await urine c/s Continue zosyn
[2018-04-02] MEDS ORDERED: PT OWN MED DRAWER 7, Y5N ONE (22:09)
[2018-04-02 23:52] VITALS: BMI 16.2
[2018-04-03] MEDS ORDERED: PT OWN MED DRAWER 7, Y5N ONE ×2 (00:08→22:26)
[2018-04-03] MEDS ORDERED: PIPERACILLIN/TAZOBACTAM 3.375 GM VIAL IVPB ONE ×2 (01:19→09:15)
[2018-04-03] MEDS ORDERED: DEXTROSE 5%-WATER - 50 ML IVPB ONE ×2 (01:19→09:15)
[2018-04-03] MEDS: PIPERACILLIN/TAZOB 3.375 GM 3.375 GM in DEXTROSE 5%-WATER - 50 ML IVPB SCH ×2 (01:50→09:27)
[2018-04-03] MEDS: amLODIPine BESYLATE 2.5 MG TABLET (FP) PO SCH (09:27)
[2018-04-03] MEDS: FOLIC ACID 1 MG TABLET (FP) PO SCH (09:27)
[2018-04-03] MEDS: PANTOPRAZOLE 40 MG TABLET (FP) PO SCH (09:27)
[2018-04-03] MEDS: predniSONE 20 MG TABLET (UD) PO SCH (09:27)
--- NOTE | 2018-04-03 09:55 | PN ---
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, Physician Chief Complaint: afebrile feels well UCx + on IV ATB /ID had low PLT and low Hg and was transfused PLT and PRBC no bleed d/w pt and daughter - Current Medication List Current Medications: Active Medications Acetaminophen (Tylenol -) 650 mg PO Q6H PRN PRN Reason: FEVER Amlodipine Besylate (Norvasc -) 2.5 mg PO DAILY [facility] Last Admin: 04/03/18 09:27 Dose: 2.5 mg Folic Acid (Folic Acid -) 1 mg PO DAILY [facility] Last Admin: 04/03/18 09:27 Dose: 1 mg Piperacillin Sod/Tazobactam (Sod 3.375 gm/ Dextrose) 50 mls @ 100 mls/hr IVPB Q8H-IV RYAN; Protocol Last Admin: 04/03/18 09:27 Dose: 100 mls/hr Insulin Aspart (Novolog Vial Sliding Scale -) 1 vial SQ ACHS [facility]; Protocol Pantoprazole Sodium (Protonix -) 40 mg PO DAILY [facility] Last Admin: 04/03/18 09:27 Dose: 40 mg Prednisone (Deltasone -) 20 mg PO DAILY [facility] Last Admin: 04/03/18 09:27 Dose: 20 mg - Objective Vital Signs: Vital Signs Temperature 98.4 F 04/03/18 09:20 Pulse Rate 85 04/03/18 09:20 Respiratory Rate 20 04/03/18 09:20 Blood Pressure 152/63 04/03/18 09:20 O2 Sat by Pulse Oximetry (%) 97 04/02/18 20:19 Constitutional: Yes: No Distress, Calm Eyes: Yes: Conjunctiva Clear HENT: Yes: Atraumatic Neck: Yes: Supple Cardiovascular: Yes: Regular Rate and Rhythm Respiratory: Yes: CTA Bilaterally Gastrointestinal: Yes: Soft. No: Distention Genitourinary: No: CVA Tenderness - Left, CVA Tenderness - Right Musculoskeletal: No: Joint Stiffness, Joint Swelling Extremities: No: Cold, Cool Edema: No Integumentary: No: Rash, Venous Stasis Changes Neurological: Yes: WNL, Alert, Oriented ...Motor Strength: WNL Psychiatric: Yes: WNL, Alert, Oriented. No: Agitated, Suicidal Ideation Labs: INR, PTT INR 1.24 (0.83-1.09) H 03/31/18 18:40 - ....Imaging Other: Report Reviewed Assessment/Plan 72yo F with PMH of CLL, HTN, CHF, choledocholithiasis presenting with fever and cough. Patient was sent by her heme/onc specialist, Dr. Garcia for evaluation of fever and cough and some nonproductive cough, UCx + IV antibiotics per ID heme onc f/u f/u labs and cultures s/p PLT and PRBC for low Hg and low PLT; might need transfusions again if blood counts drop falls decubs DVT pfx d/w pt do not get OOB alone, ask for help if needs OOB DVT Pfx ambulate and TEds SDC wound not use heparin given h/o severe anemia and low PLT prognosis guarded d /w pt and staff d/w pt's daughter
[2018-04-03] MEDS: SODIUM CHLORIDE 1,000 ML IV SCH (11:52)
[2018-04-03] MEDS ORDERED: INSULIN (NOVOLOG) ASPART 100 UNITS/ML 10ML VIAL ONE ×2 (11:55→21:07)
[2018-04-03] MEDS: INSULIN SLIDING SCALE (NOVOLOG) 1 VIAL SQ SCH ×3 (11:56→21:43)
[2018-04-03 12:31] LABS: ALBUMIN 2.4 g/dl (3.4-5.0); ALK PHOS 73 U/L (45-117); ANION GAP 6 MMOL/L (8-16); BILIRUBIN,TOTAL 1.5 mg/dL (0.2-1); BLOOD UREA NITROGEN 31 mg/dL (7-18); CALCIUM 8.8 mg/dL (8.5-10.1); CHLORIDE 103 mmol/L (98-107); CO2 30 mmol/L (21-32); GLUCOSE,RANDOM 107 mg/dL (74-106); POTASSIUM 4.4 mmol/L (3.5-5.1); SGOT/AST 15 U/L (15-37); SGPT/ALT 19 U/L (13-61); SODIUM 139 mmol/L (136-145); TOT PROT 5.9 g/dl (6.4-8.2)
[2018-04-03 14:02] LABS: BASO % 0.6 % (0-2.0); EOS % 0.1 % (0-4.5); HEMATOCRIT 31.2 % (32.4-45.2); HEMOGLOBIN 10.3 GM/dL (10.7-15.3); LYMPH % 21.5 % (8-40); MCH 27.9 pg (25.7-33.7); MCHC 33.1 g/dl (32.0-36.0); MEAN CELL VOLUME 84.4 fl (80-96); MEAN PLT VOLUME 10.4 fl (7.5-11.1); MONO % 1.7 % (3.8-10.2); NEUT % 76.1 % (42.8-82.8); PLATELET COUNT 53 K/MM3 (134-434); RBC 3.69 M/mm3 (3.60-5.2); RDW 15.8 % (11.6-15.6); WHITE BLOOD COUNT 6.1 K/mm3 (4.0-10.0)
--- NOTE | 2018-04-03 14:23 | PN ---
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, Physician History of Present Illness: Supine in bed Awake, mildly confused Offers no complaints Temps down Afebrile WBC WNL RSV (-) Urine c/s Klebsiella - Current Medication List Current Medications: Active Medications Acetaminophen (Tylenol -) 650 mg PO Q6H PRN PRN Reason: FEVER Amlodipine Besylate (Norvasc -) 2.5 mg PO DAILY [facility] Last Admin: 04/03/18 09:27 Dose: 2.5 mg Folic Acid (Folic Acid -) 1 mg PO DAILY [facility] Last Admin: 04/03/18 09:27 Dose: 1 mg Piperacillin Sod/Tazobactam (Sod 3.375 gm/ Dextrose) 50 mls @ 100 mls/hr IVPB Q8H-IV [facility]; Protocol Last Admin: 04/03/18 09:27 Dose: 100 mls/hr Sodium Chloride (Normal Saline -) 1,000 mls @ 75 mls/hr IV ASDIR [facility] Last Admin: 04/03/18 11:52 Dose: 75 mls/hr Insulin Aspart (Novolog Vial Sliding Scale -) 1 vial SQ ACHS [facility]; Protocol Last Admin: 04/03/18 11:56 Dose: 2 unit Pantoprazole Sodium (Protonix -) 40 mg PO DAILY [facility] Last Admin: 04/03/18 09:27 Dose: 40 mg Prednisone (Deltasone -) 30 mg PO DAILY [facility] - Objective Vital Signs: Vital Signs Temperature 98.4 F 04/03/18 09:20 Pulse Rate 85 04/03/18 09:20 Respiratory Rate 20 04/03/18 09:20 Blood Pressure 152/63 04/03/18 09:20 O2 Sat by Pulse Oximetry (%) 97 04/03/18 09:00 Constitutional: Yes: No Distress Eyes: Yes: Conjunctiva Clear Cardiovascular: Yes: Regular Rate and Rhythm, S1, S2 Respiratory: Yes: CTA Bilaterally Gastrointestinal: Yes: Normal Bowel Sounds, Soft. No: Tenderness Edema: No Labs: CBC, BMP 04/03/18 06:00 INR, PTT INR 1.24 (0.83-1.09) H 03/31/18 18:40 Assessment/Plan LLL pneumonia UTI Klebsiella Fever- improved CLL Thrombocytopenia CKD Substitute ceftriaxone
[2018-04-03] MEDS ORDERED: DEXTROSE 5%-WATER 100 ML IVPB ONE (15:40)
[2018-04-03] MEDS: CEFTRIAXONE 2 GM in DEXTROSE 5%-WATER 100 ML IVPB SCH (15:45)
[2018-04-03 18:44] LABS: PLATELET ESTIMATE DECREASED
--- NOTE | 2018-04-03 19:17 | PN ---
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 (short form) - Note 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: Patient seen in follow up. No new complaints. Received platelet and red cell transfusion yesterday. Believes she is going home today. Inpatient Meds reviewed. Current Medications Generic Name Dose Route Start Last Admin Trade Name Eloise PRN Reason Stop Dose Admin Acetaminophen 650 mg 03/31/18 19:44 Tylenol - PO Q6H PRN FEVER Amlodipine Besylate 2.5 mg 04/01/18 10:00 04/03/18 09:27 Norvasc - PO 2.5 mg DAILY [facility]AN Administration Folic Acid 1 mg 04/01/18 10:00 04/03/18 09:27 Folic Acid - PO 1 mg DAILY [facility]AN Administration Sodium Chloride 1,000 mls @ 75 mls/hr 04/03/18 11:00 04/03/18 11:52 Normal Saline - IV 75 mls/hr ASDIR [facility]AN Administration Ceftriaxone Sodium 2 gm/ 100 mls @ 200 mls/hr 04/03/18 14:30 04/03/18 15:45 Dextrose IVPB 200 mls/hr DAILY R[facility]AN Administration Protocol Insulin Aspart 1 vial 04/03/18 11:00 04/03/18 16:53 Novolog Vial Sliding Scale - SQ 6 unit ACHS RYAN Administration Protocol Pantoprazole Sodium 40 mg 04/01/18 10:00 04/03/18 09:27 Protonix - PO 40 mg DAILY RYAN Administration Prednisone 30 mg 04/03/18 11:08 Deltasone - PO DAILY RYAN On Examination: Last Vital Signs Temp Pulse Resp BP Pulse Ox 98.4 F 85 20 152/63 97 04/03/18 09:20 04/03/18 09:20 04/03/18 09:20 04/03/18 09:20 04/03/18 09:00 General: In no acute distress, sitting at bedside eating lunch. Extremities: No pallor or icterus. No pedal edema. Chest: breathing comfortably Abdomen: Non-distended, non-tender. Neuro: Alert, oriented, non-focal. Labs: CBC, BMP 04/03/18 06:00 04/03/18 06:00 Assessment. Recently diagnosed CLL/SLL, and recent CBD stones s/p ERCP sphincterotomy complicated by arterial bleed - now admitted with fever, attributable to UTI ( klebsiella), possible pneumonia. Clinically improved after several days antibiotics. Marked and abrupt thrombocytopenia last 2 days likely attributable to sepsis. Today improved, following transfusion. Peripheral smear reviewed. Significant for marked polychromasia. Note that reticulocytosis in absence of hemolysis (negative haptoglobin) suggest ongoing hemorrhage. Stool occult blood positive. In light of recent history of complicated hemorrhage following biliary instrumentation, close monitoring of Hb, and close involvement of GI.
[2018-04-04] MEDS: INSULIN SLIDING SCALE (NOVOLOG) 1 VIAL SQ SCH ×4 (06:18→21:33)
[2018-04-04 08:20] LABS: ALBUMIN 2.4 g/dl (3.4-5.0); ALK PHOS 76 U/L (45-117); ANION GAP 7 MMOL/L (8-16); BILIRUBIN,TOTAL 0.6 mg/dL (0.2-1); BLOOD UREA NITROGEN 35 mg/dL (7-18); CALCIUM 8.9 mg/dL (8.5-10.1); CHLORIDE 101 mmol/L (98-107); CO2 31 mmol/L (21-32); CREATININE 0.8 mg/dL (0.55-1.3); GLUCOSE,RANDOM 100 mg/dL (74-106); POTASSIUM 4.5 mmol/L (3.5-5.1); SGOT/AST 15 U/L (15-37); SGPT/ALT 21 U/L (13-61); SODIUM 139 mmol/L (136-145)
[2018-04-04 08:46] LABS: BASO % 0.7 % (0-2.0); EOS % 0.2 % (0-4.5); HEMATOCRIT 28.7 % (32.4-45.2); HEMOGLOBIN 10.2 GM/dL (10.7-15.3); LYMPH % 24.5 % (8-40); MCH 29.8 pg (25.7-33.7); MCHC 35.5 g/dl (32.0-36.0); MEAN CELL VOLUME 84.1 fl (80-96); MEAN PLT VOLUME 9.9 fl (7.5-11.1); NEUT % 73.6 % (42.8-82.8); PLATELET COUNT 64 K/MM3 (134-434); RBC 3.41 M/mm3 (3.60-5.2); RDW 15.6 % (11.6-15.6); WHITE BLOOD COUNT 5.3 K/mm3 (4.0-10.0)
[2018-04-04] MEDS ORDERED: PT OWN MED DRAWER 7, Y5N ONE (09:13)
[2018-04-04] MEDS ORDERED: DEXTROSE 5%-WATER 100 ML IVPB ONE (09:14)
[2018-04-04] MEDS: PANTOPRAZOLE 40 MG TABLET (FP) PO SCH (09:32)
[2018-04-04] MEDS: predniSONE 20 MG TABLET (UD) PO SCH (09:32)
[2018-04-04] MEDS: amLODIPine BESYLATE 2.5 MG TABLET (FP) PO SCH (09:32)
[2018-04-04] MEDS: FOLIC ACID 1 MG TABLET (FP) PO SCH (09:32)
--- NOTE | 2018-04-04 13:01 | PN ---
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, Physician Chief Complaint: afebrile feels well - Current Medication List Current Medications: Active Medications Acetaminophen (Tylenol -) 650 mg PO Q6H PRN PRN Reason: FEVER Amlodipine Besylate (Norvasc -) 2.5 mg PO DAILY REPLACED BY [facility] Last Admin: 04/04/18 09:32 Dose: 2.5 mg Folic Acid (Folic Acid -) 1 mg PO DAILY REPLACED BY [facility] Last Admin: 04/04/18 09:32 Dose: 1 mg Sodium Chloride (Normal Saline -) 1,000 mls @ 75 mls/hr IV ASDIR REPLACED BY [facility] Last Admin: 04/03/18 11:52 Dose: 75 mls/hr Ceftriaxone Sodium 2 gm/ (Dextrose) 100 mls @ 200 mls/hr IVPB DAILY REPLACED BY [facility]; Protocol Last Admin: 04/03/18 15:45 Dose: 200 mls/hr Metronidazole (Flagyl 500mg Premixed Ivpb -) 500 mg in 100 mls @ 100 mls/hr IVPB Q8H-IV [facility] Insulin Aspart (Novolog Vial Sliding Scale -) 1 vial SQ ACHS REPLACED BY [facility]; Protocol Last Admin: 04/04/18 11:52 Dose: 8 unit Pantoprazole Sodium (Protonix -) 40 mg PO DAILY REPLACED BY [facility] Last Admin: 04/04/18 09:32 Dose: 40 mg Prednisone (Deltasone -) 30 mg PO DAILY REPLACED BY [facility] Last Admin: 04/04/18 09:32 Dose: 30 mg - Objective Vital Signs: Vital Signs Temperature 97.9 F 04/04/18 06:00 Pulse Rate 68 04/04/18 06:00 Respiratory Rate 18 04/04/18 06:00 Blood Pressure 135/61 04/04/18 06:00 O2 Sat by Pulse Oximetry (%) 97 04/03/18 21:00 Constitutional: Yes: No Distress, Calm Eyes: Yes: Conjunctiva Clear HENT: Yes: Atraumatic Neck: Yes: Supple Cardiovascular: Yes: Regular Rate and Rhythm Respiratory: Yes: CTA Bilaterally Gastrointestinal: Yes: Soft. No: Distention Genitourinary: No: CVA Tenderness - Left, CVA Tenderness - Right Musculoskeletal: No: Joint Stiffness, Joint Swelling Extremities: No: Cold, Cool, Cyanosis Edema: No Integumentary: No: Rash, Venous Stasis Changes Neurological: Yes: WNL, Alert, Oriented ...Motor Strength: WNL Psychiatric: Yes: WNL, Alert, Oriented. No: Agitated, Suicidal Ideation Labs: CBC, BMP 04/04/18 06:00 04/04/18 06:00 INR, PTT INR 1.24 (0.83-1.09) H 03/31/18 18:40 - ....Imaging Other: Report Reviewed Assessment/Plan 72yo F with PMH of CLL, HTN, CHF, choledocholithiasis presenting with fever and cough. Patient was sent by her heme/onc specialist, Dr. Garcia for evaluation of fever and cough and some nonproductive cough, UCx + IV antibiotics per ID; 1 set + bl;ood cx now, d/w ID will add flagyl heme onc f/u f/u labs and cultures s/p PLT and PRBC for low Hg and low PLT; might need transfusions again if blood counts drop falls decubs DVT pfx d/w pt do not get OOB alone, ask for help if needs OOB DVT Pfx ambulate and TEds SDC wound not use heparin given h/o severe anemia and low PLT prognosis guarded d /w pt and staff d/w pt's daughter
--- NOTE | 2018-04-04 13:40 | PN ---
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, Physician History of Present Illness: 72yo white woman with PMH of CLL, PAD (70% Lt iliac stenosis), hyperlipidemia, HTN, diastolic CHF, choledocholithiasis, now presenting with fever and cough. Patient was sent by her heme/onc specialist, Dr. Garcia. Patient's recent history is significant for recent hospital stay. She had cholodocholithiasis in late January which necessitated ERCP with sphinceterotomy at this hospital. Patient's hospital course was significant for GI bleed for which she was ultimately transferred to [facility]. Patient stayed there for two weeks and was discharged to [facility]. At [facility], she was found to have low hemoglobin for which she was sent to [facility] and transfused. Patient was discharged last night and saw Dr. Garcia today. Patient has no chest pain or shortness of breath - Current Medication List Current Medications: Active Medications Acetaminophen (Tylenol -) 650 mg PO Q6H PRN PRN Reason: FEVER Amlodipine Besylate (Norvasc -) 2.5 mg PO DAILY [facility] Last Admin: 04/04/18 09:32 Dose: 2.5 mg Folic Acid (Folic Acid -) 1 mg PO DAILY [facility] Last Admin: 04/04/18 09:32 Dose: 1 mg Sodium Chloride (Normal Saline -) 1,000 mls @ 75 mls/hr IV ASDIR [facility] Last Admin: 04/03/18 11:52 Dose: 75 mls/hr Ceftriaxone Sodium 2 gm/ (Dextrose) 100 mls @ 200 mls/hr IVPB DAILY [facility]; Protocol Last Admin: 04/03/18 15:45 Dose: 200 mls/hr Metronidazole (Flagyl 500mg Premixed Ivpb -) 500 mg in 100 mls @ 100 mls/hr IVPB Q8H-IV [facility] Insulin Aspart (Novolog Vial Sliding Scale -) 1 vial SQ ACHS [facility]; Protocol Last Admin: 04/04/18 11:52 Dose: 8 unit Pantoprazole Sodium (Protonix -) 40 mg PO DAILY [facility] Last Admin: 04/04/18 09:32 Dose: 40 mg Prednisone (Deltasone -) 30 mg PO DAILY [facility] Last Admin: 04/04/18 09:32 Dose: 30 mg - Objective Vital Signs: Vital Signs Temperature 97.9 F 04/04/18 06:00 Pulse Rate 68 04/04/18 06:00 Respiratory Rate 18 04/04/18 06:00 Blood Pressure 135/61 04/04/18 06:00 O2 Sat by Pulse Oximetry (%) 97 04/03/18 21:00 Eyes: Yes: WNL, Conjunctiva Clear, EOM Intact HENT: Yes: WNL, Atraumatic, Normocephalic Neck: Yes: WNL, Supple, Trachea Midline Cardiovascular: Yes: WNL, Regular Rate and Rhythm Respiratory: Yes: WNL, Regular, CTA Bilaterally Gastrointestinal: Yes: WNL, Normal Bowel Sounds Genitourinary: Yes: WNL Musculoskeletal: Yes: WNL Extremities: Yes: WNL Edema: No Integumentary: Yes: WNL Neurological: Yes: WNL, Alert, Oriented ...Motor Strength: WNL Psychiatric: Yes: WNL Labs: CBC, BMP 04/04/18 06:00 04/04/18 06:00 INR, PTT INR 1.24 (0.83-1.09) H 03/31/18 18:40 Assessment/Plan - Problems (1) CKD (chronic kidney disease) Code(s): N18.9 - CHRONIC KIDNEY DISEASE, UNSPECIFIED (2) Chronic lymphocytic leukemia Code(s): C91.90 - LYMPHOID LEUKEMIA, UNSPECIFIED NOT HAVING ACHIEVED REMISSION (3) SIRS (systemic inflammatory response syndrome) Code(s): R65.10 - SIRS OF NON-INFECTIOUS ORIGIN W/O ACUTE ORGAN DYSFUNCTION (4) Anxiety disorder Code(s): F41.9 - ANXIETY DISORDER, UNSPECIFIED (5) Choledocholithiasis Assessment/Plan: f/u with oncologist, GI. Code(s): K80.50 - CALCULUS OF BILE DUCT W/O CHOLANGITIS OR CHOLECYST W/O OBST (6) Diastolic CHF Assessment/Plan: BNP > 1,300 (double its level of several years ago) ECHO: normal LVEF; abnormal diastolic compliance; mlild MR and TR F/u BUN/Cr, electrolytes, daily wt, Is and Os. Code(s): I50.30 - UNSPECIFIED DIASTOLIC (CONGESTIVE) HEART FAILURE (7) Fever Code(s): R50.9 - FEVER, UNSPECIFIED (8) GI (gastrointestinal hemorrhage) Code(s): K92.2 - GASTROINTESTINAL HEMORRHAGE, UNSPECIFIED (9) HTN (hypertension) Code(s): I10 - ESSENTIAL (PRIMARY) HYPERTENSION (10) Nephrolithiasis Code(s): N20.0 - CALCULUS OF KIDNEY (11) Thrombocytopenia Assessment/Plan: hold all antiplatelets Code(s): D69.6 - THROMBOCYTOPENIA, UNSPECIFIED (12) Anemia Code(s): D64.9 - ANEMIA, UNSPECIFIED (13) PAD (peripheral artery disease) Code(s): I73.9 - PERIPHERAL VASCULAR DISEASE, UNSPECIFIED
[2018-04-04] MEDS: SODIUM CHLORIDE 1,000 ML IV SCH (14:05)
[2018-04-04] MEDS: CEFTRIAXONE 2 GM in DEXTROSE 5%-WATER 100 ML IVPB SCH (14:06)
--- NOTE | 2018-04-04 14:18 | PN ---
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 (short form) - Note 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: no more fevers since admission denies cough feels well Vital Signs Period Temp Pulse Resp BP Sys/Borjas Pulse Ox Last 24 Hr 97.9 F-97.9 F 68-71 18-18 135-137/61-65 97 cor-rrr lungs clear abd soft,nt ext no edema CBC, BMP 04/04/18 06:00 04/04/18 06:00 Microbiology 03/31/18 18:40 Blood - Peripheral Venous Blood Culture - Preliminary Pending Organism 03/31/18 19:10 Blood - Peripheral Venous Blood Culture - Preliminary NO GROWTH OBTAINED AFTER 72 HOURS, INCUBATION TO CONTINUE FOR 2 DAYS. 03/31/18 22:00 Urine - Urine Clean Catch Urine Culture - Final Klebsiella Pneumoniae Yeast Like Organism 04/02/18 11:30 Urine For Antigen Detection Legionella Antigen - Final 04/02/18 11:30 Urine For Antigen Detection Streptococcus pneumoniae Antigen (M - Final a/p HAP ?viral UTI dementia CKD CLL on prednisone at this time currently on ceftriaxone and afebrile, now positive blood culture- ?anerobe repeat blood cultures add flagyl Problem List - Problems (1) Fever Code(s): R50.9 - FEVER, UNSPECIFIED (2) Pneumonia Code(s): J18.9 - PNEUMONIA, UNSPECIFIED ORGANISM (3) UTI (urinary tract infection) Code(s): N39.0 - URINARY TRACT INFECTION, SITE NOT SPECIFIED (4) CKD (chronic kidney disease) Code(s): N18.9 - CHRONIC KIDNEY DISEASE, UNSPECIFIED (5) Chronic lymphocytic leukemia Code(s): C91.90 - LYMPHOID LEUKEMIA, UNSPECIFIED NOT HAVING ACHIEVED REMISSION
--- NOTE | 2018-04-04 23:27 | PN ---
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 (short form) - Note 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: PAtient seen and examined feels well Last Vital Signs Temp Pulse Resp BP Pulse Ox 98 F 78 20 125/67 96 04/04/18 21:55 04/04/18 21:55 04/04/18 22:05 04/04/18 21:55 04/04/18 22:05 Cor: RSR, No murmurs, No gallops Lungs: Clear to P&A Abd: Soft, Normal bowel sounds, No organomegaly Ext:No significant edema Labs/Meds reviewed A/P 72 y/o patient with CLL, thrombocytopenia, anemia, pneumonia anemia--multifactorial? CLL+ gilossies + infection. no evidence of hemo;ysis will reconsult gi transfer to for consideration of rituxan start allopurinol
[2018-04-05] MEDS: SODIUM CHLORIDE 1,000 ML IV SCH ×2 (01:05→16:12)
--- NOTE | 2018-04-05 06:21 | PN ---
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, Physician Chief Complaint: in bed afebrile awake NAD has no c/o said no more diarrhea - Current Medication List Current Medications: Active Medications Acetaminophen (Tylenol -) 650 mg PO Q6H PRN PRN Reason: FEVER Allopurinol (Zyloprim -) 300 mg PO DAILY [facility] Amlodipine Besylate (Norvasc -) 2.5 mg PO DAILY [facility] Last Admin: 04/04/18 09:32 Dose: 2.5 mg Folic Acid (Folic Acid -) 1 mg PO DAILY [facility] Last Admin: 04/04/18 09:32 Dose: 1 mg Sodium Chloride (Normal Saline -) 1,000 mls @ 75 mls/hr IV ASDIR [facility] Last Admin: 04/05/18 01:05 Dose: 75 mls/hr Ceftriaxone Sodium 2 gm/ (Dextrose) 100 mls @ 200 mls/hr IVPB DAILY [facility]; Protocol Last Admin: 04/04/18 14:06 Dose: 200 mls/hr Metronidazole (Flagyl 500mg Premixed Ivpb -) 500 mg in 100 mls @ 100 mls/hr IVPB Q8H-IV [facility] Last Admin: 04/05/18 01:02 Dose: 100 mls/hr Insulin Aspart (Novolog Vial Sliding Scale -) 1 vial SQ ACHS [facility]; Protocol Last Admin: 04/04/18 21:33 Dose: 4 unit Pantoprazole Sodium (Protonix -) 40 mg PO DAILY [facility] Last Admin: 04/04/18 09:32 Dose: 40 mg Prednisone (Deltasone -) 30 mg PO DAILY [facility] Last Admin: 04/04/18 09:32 Dose: 30 mg - Objective Vital Signs: Vital Signs Temperature 98 F 04/04/18 21:55 Pulse Rate 78 04/04/18 21:55 Respiratory Rate 20 04/04/18 22:05 Blood Pressure 125/67 04/04/18 21:55 O2 Sat by Pulse Oximetry (%) 96 04/04/18 22:05 Constitutional: Yes: No Distress, Calm Eyes: Yes: Conjunctiva Clear HENT: Yes: Atraumatic Neck: Yes: Supple Cardiovascular: Yes: Regular Rate and Rhythm Respiratory: Yes: CTA Bilaterally Gastrointestinal: Yes: Soft. No: Distention Genitourinary: No: CVA Tenderness - Left, CVA Tenderness - Right Musculoskeletal: No: Joint Stiffness, Joint Swelling Extremities: No: Cold, Cool, Cyanosis Edema: No Integumentary: No: Rash, Venous Stasis Changes Neurological: Yes: WNL, Alert, Oriented ...Motor Strength: WNL Psychiatric: Yes: WNL, Alert, Oriented. No: Agitated, Suicidal Ideation Labs: CBC, BMP 04/04/18 06:00 04/04/18 06:00 INR, PTT INR 1.24 (0.83-1.09) H 03/31/18 18:40 - ....Imaging Other: Report Reviewed Assessment/Plan 72yo F with PMH of CLL, HTN, CHF, choledocholithiasis presenting with fever and cough. Patient was sent by her heme/onc specialist, Dr. Garcia for evaluation of fever and cough and some nonproductive cough, UCx + IV antibiotics per ID; 1 set + blood cx ID added flagyl heme onc f/u f/u labs and cultures s/p PLT and PRBC for low Hg and low PLT; might need transfusions again if blood counts drop falls decubs DVT pfx d/w pt do not get OOB alone, ask for help if needs OOB DVT Pfx ambulate and TEds SDC wound not use heparin given h/o severe anemia and low PLT prognosis guarded d /w pt and staff
[2018-04-05] MEDS: INSULIN SLIDING SCALE (NOVOLOG) 1 VIAL SQ SCH ×4 (06:29→21:53)
[2018-04-05 07:20] LABS: BASO % 0.6 % (0-2.0); EOS % 0.2 % (0-4.5); HEMATOCRIT 33.1 % (32.4-45.2); HEMOGLOBIN 10.8 GM/dL (10.7-15.3); LYMPH % 18.9 % (8-40); MCH 27.6 pg (25.7-33.7); MCHC 32.6 g/dl (32.0-36.0); MEAN CELL VOLUME 84.7 fl (80-96); MEAN PLT VOLUME 9.8 fl (7.5-11.1); MONO % 1.2 % (3.8-10.2); NEUT % 79.1 % (42.8-82.8); PLATELET COUNT 68 K/MM3 (134-434); WHITE BLOOD COUNT 6.6 K/mm3 (4.0-10.0)
[2018-04-05 08:11] LABS: ALBUMIN 2.6 g/dl (3.4-5.0); ALK PHOS 78 U/L (45-117); ANION GAP 7 MMOL/L (8-16); BILIRUBIN,TOTAL 0.6 mg/dL (0.2-1); BLOOD UREA NITROGEN 35 mg/dL (7-18); CALCIUM 9.2 mg/dL (8.5-10.1); CHLORIDE 103 mmol/L (98-107); CO2 29 mmol/L (21-32); CREATININE 0.9 mg/dL (0.55-1.3); GLUCOSE,RANDOM 96 mg/dL (74-106); SGOT/AST 13 U/L (15-37); SGPT/ALT 22 U/L (13-61); SODIUM 139 mmol/L (136-145); TOT PROT 6.2 g/dl (6.4-8.2)
[2018-04-05] MEDS ORDERED: PT OWN MED DRAWER 7, Y5N ONE ×3 (10:22→14:29)
[2018-04-05] MEDS ORDERED: DEXTROSE 5%-WATER 100 ML IVPB ONE (10:22)
[2018-04-05] MEDS: predniSONE 20 MG TABLET (UD) PO SCH (10:28)
[2018-04-05] MEDS: amLODIPine BESYLATE 2.5 MG TABLET (FP) PO SCH (10:28)
[2018-04-05] MEDS: FOLIC ACID 1 MG TABLET (FP) PO SCH (10:28)
[2018-04-05] MEDS: PANTOPRAZOLE 40 MG TABLET (FP) PO SCH (10:28)
[2018-04-05] MEDS: CEFTRIAXONE 2 GM in DEXTROSE 5%-WATER 100 ML IVPB SCH (12:15)
[2018-04-05 12:37] LABS: ANISOCYTOSIS 2+; MACROCYTOSIS 0; PLATELET ESTIMATE DECREASED; TEAR DROP CELLS 1+
--- NOTE | 2018-04-05 13:17 | PN ---
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, Physician Chief Complaint: Pt is sitting up at bedside, eating lunch; denies dyspnea, chest pain, dizziness , or palpitations. History of Present Illness: 72yo white woman with PMH of CLL, PAD (70% Lt iliac stenosis), hyperlipidemia, HTN, diastolic CHF, choledocholithiasis, now presenting with fever and cough. Patient was sent by her heme/onc specialist, Dr. Garcia. Patient's recent history is significant for recent hospital stay. She had cholodocholithiasis in late January which necessitated ERCP with sphinceterotomy at this hospital. Patient's hospital course was significant for GI bleed for which she was ultimately transferred to [facility]. Patient stayed there for two weeks and was discharged to [facility]. At [facility], she was found to have low hemoglobin for which she was sent to [facility] and transfused. Patient was discharged last night and saw Dr. Garcia today. Patient has no chest pain or shortness of breath - Current Medication List Current Medications: Active Medications Acetaminophen (Tylenol -) 650 mg PO Q6H PRN PRN Reason: FEVER Allopurinol (Zyloprim -) 300 mg PO DAILY [facility] Amlodipine Besylate (Norvasc -) 2.5 mg PO DAILY [facility] Last Admin: 04/05/18 10:28 Dose: 2.5 mg Folic Acid (Folic Acid -) 1 mg PO DAILY [facility] Last Admin: 04/05/18 10:28 Dose: 1 mg Sodium Chloride (Normal Saline -) 1,000 mls @ 75 mls/hr IV ASDIR [facility] Last Admin: 04/05/18 01:05 Dose: 75 mls/hr Ceftriaxone Sodium 2 gm/ (Dextrose) 100 mls @ 200 mls/hr IVPB DAILY [facility]; Protocol Last Admin: 04/05/18 12:15 Dose: 200 mls/hr Metronidazole (Flagyl 500mg Premixed Ivpb -) 500 mg in 100 mls @ 100 mls/hr IVPB Q8H-IV [facility] Last Admin: 04/05/18 10:28 Dose: 100 mls/hr Insulin Aspart (Novolog Vial Sliding Scale -) 1 vial SQ ACHS [facility]; Protocol Last Admin: 04/05/18 12:44 Dose: 2 unit Pantoprazole Sodium (Protonix -) 40 mg PO DAILY [facility] Last Admin: 04/05/18 10:28 Dose: 40 mg Prednisone (Deltasone -) 30 mg PO DAILY [facility] Last Admin: 04/05/18 10:28 Dose: 30 mg - Objective Vital Signs: Vital Signs Temperature 97.8 F 04/05/18 06:53 Pulse Rate 76 04/05/18 06:53 Respiratory Rate 20 04/05/18 06:53 Blood Pressure 153/85 04/05/18 06:53 O2 Sat by Pulse Oximetry (%) 96 04/04/18 22:05 Constitutional: Yes: Anxious Eyes: Yes: WNL HENT: Yes: WNL Neck: Yes: WNL Cardiovascular: Yes: Regular Rate and Rhythm Respiratory: Yes: WNL Gastrointestinal: Yes: Soft ...Rectal Exam: Yes: Deferred Genitourinary: No: Anuria Breast(s): Yes: WNL Musculoskeletal: Yes: Muscle Weakness Extremities: Yes: WNL Edema: No Peripheral Pulses WNL: Yes Integumentary: Yes: WNL Neurological: Yes: Alert, Weakness Psychiatric: Yes: Other Labs: CBC, BMP 04/05/18 06:30 04/05/18 06:30 INR, PTT INR 1.24 (0.83-1.09) H 03/31/18 18:40 Problem List - Problems (1) CKD (chronic kidney disease) Code(s): N18.9 - CHRONIC KIDNEY DISEASE, UNSPECIFIED (2) Chronic lymphocytic leukemia Code(s): C91.90 - LYMPHOID LEUKEMIA, UNSPECIFIED NOT HAVING ACHIEVED REMISSION (3) SIRS (systemic inflammatory response syndrome) Code(s): R65.10 - SIRS OF NON-INFECTIOUS ORIGIN W/O ACUTE ORGAN DYSFUNCTION (4) Anxiety disorder Code(s): F41.9 - ANXIETY DISORDER, UNSPECIFIED (5) Choledocholithiasis Assessment/Plan: f/u with oncologist, GI. Code(s): K80.50 - CALCULUS OF BILE DUCT W/O CHOLANGITIS OR CHOLECYST W/O OBST (6) Diastolic CHF Assessment/Plan: BNP > 1,300 (double its level of several years ago) ECHO: normal LVEF; abnormal diastolic compliance; mlild MR and TR No JVD; not dyspneic. F/u BUN/Cr, electrolytes, daily wt, Is and Os. Code(s): I50.30 - UNSPECIFIED DIASTOLIC (CONGESTIVE) HEART FAILURE (7) Fever Code(s): R50.9 - FEVER, UNSPECIFIED (8) HTN (hypertension) Assessment/Plan: on amlodipine. Consider ACEI or ARB (HTN; DM). Code(s): I10 - ESSENTIAL (PRIMARY) HYPERTENSION (9) Nephrolithiasis Code(s): N20.0 - CALCULUS OF KIDNEY (10) Thrombocytopenia Assessment/Plan: Platelet level remains low, but relatively stable. Code(s): D69.6 - THROMBOCYTOPENIA, UNSPECIFIED (11) Anemia Code(s): D64.9 - ANEMIA, UNSPECIFIED (12) PAD (peripheral artery disease) Code(s): I73.9 - PERIPHERAL VASCULAR DISEASE, UNSPECIFIED (13) Positive blood cultures Assessment/Plan: On Rocephin and Flagyl. F/u with ID. Code(s): R78.81 - BACTEREMIA
--- NOTE | 2018-04-05 14:02 | PN ---
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 (short form) - Note 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: Patient seen and examined Offers no complaints Last Vital Signs Temp Pulse Resp BP Pulse Ox 97.8 F 76 20 153/85 96 04/05/18 06:53 04/05/18 06:53 04/05/18 06:53 04/05/18 06:53 04/04/18 22:05 HEENT: FELIBERTO, EOM Intact Oropharynx: No thrush, No mucositis Neck: Supple Nodes: Without adenopathy Cor: RSR, No murmurs, No gallops Lungs:rhonchi Abd: Soft, Normal bowel sounds, No organomegaly Ext:No significant edema Skin: No rashes, Integument intact CBC, BMP 04/05/18 06:30 04/05/18 06:30 Microbiology 03/31/18 18:40 Blood - Peripheral Venous Blood Culture - Preliminary Anaerobic Gram Neg Bacilli 03/31/18 19:10 Blood - Peripheral Venous Blood Culture - Preliminary NO GROWTH OBTAINED AFTER 96 HOURS, INCUBATION TO CONTINUE FOR 1 DAYS. 03/31/18 22:00 Urine - Urine Clean Catch Urine Culture - Final Klebsiella Pneumoniae Yeast Like Organism 04/02/18 11:30 Urine For Antigen Detection Legionella Antigen - Final 04/02/18 11:30 Urine For Antigen Detection Streptococcus pneumoniae Antigen (M - Final Current Medications Generic Name Dose Route Start Last Admin Trade Name Freq PRN Reason Stop Dose Admin Acetaminophen 650 mg 03/31/18 19:44 Tylenol - PO Q6H PRN FEVER Allopurinol 300 mg 04/05/18 10:00 Zyloprim - PO DAILY [facility] Amlodipine Besylate 2.5 mg 04/01/18 10:00 04/05/18 10:28 Norvasc - PO 2.5 mg DAILY [facility] Administration Folic Acid 1 mg 04/01/18 10:00 04/05/18 10:28 Folic Acid - PO 1 mg DAILY [facility] Administration Sodium Chloride 1,000 mls @ 75 mls/hr 04/03/18 11:00 04/05/18 01:05 Normal Saline - IV 75 mls/hr ASDIR [facility] Administration Ceftriaxone Sodium 2 gm/ 100 mls @ 200 mls/hr 04/03/18 14:30 04/05/18 12:15 Dextrose IVPB 200 mls/hr DAILY [facility] Administration Protocol Metronidazole 500 mg in 100 mls @ 100 mls/hr 04/04/18 13:00 04/05/18 10:28 Flagyl 500mg Premixed Ivpb - IVPB 100 mls/hr Q8H-IV [facility] Administration Insulin Aspart 1 vial 04/03/18 11:00 04/05/18 12:44 Novolog Vial Sliding Scale - SQ 2 unit ACHS [facility] Administration Protocol Pantoprazole Sodium 40 mg 04/01/18 10:00 04/05/18 10:28 Protonix - PO 40 mg DAILY [facility] Administration Prednisone 30 mg 04/03/18 11:08 04/05/18 10:28 Deltasone - PO 30 mg DAILY [facility] Administration Impression CLL S/p sphincterotomy with bleeding Anemia Thrombocytopenia S/P transfusion of blood and platelets Urine with klebsiella + blood cultures Antibiotics per ID Plan : Continue antibiotics Taper prednisone Rituxin in future.
--- NOTE | 2018-04-05 14:29 | PN ---
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 (short form) - Note 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: no more fevers since admission denies cough feels well Vital Signs Period Temp Pulse Resp BP Sys/Borjas Pulse Ox Last 24 Hr 97.8 F-98.2 F 75-78 18-20 125-153/67-85 96 very poor dentition cor-rrr lungs decreased bs at bases abd soft,nt ext no edema CBC, BMP 04/05/18 06:30 04/05/18 06:30 Microbiology 03/31/18 18:40 Blood - Peripheral Venous Blood Culture - Preliminary Anaerobic Gram Neg Bacilli 03/31/18 19:10 Blood - Peripheral Venous Blood Culture - Preliminary NO GROWTH OBTAINED AFTER 96 HOURS, INCUBATION TO CONTINUE FOR 1 DAYS. 03/31/18 22:00 Urine - Urine Clean Catch Urine Culture - Final Klebsiella Pneumoniae Yeast Like Organism 04/02/18 11:30 Urine For Antigen Detection Legionella Antigen - Final 04/02/18 11:30 Urine For Antigen Detection Streptococcus pneumoniae Antigen (M - Final Current Medications Acetaminophen (Tylenol -) 650 mg PO Q6H PRN PRN Reason: FEVER Allopurinol (Zyloprim -) 300 mg PO DAILY [facility] Amlodipine Besylate (Norvasc -) 2.5 mg PO DAILY [facility] Last Admin: 04/05/18 10:28 Dose: 2.5 mg Folic Acid (Folic Acid -) 1 mg PO DAILY [facility] Last Admin: 04/05/18 10:28 Dose: 1 mg Sodium Chloride (Normal Saline -) 1,000 mls @ 75 mls/hr IV ASDIR [facility] Last Admin: 04/05/18 01:05 Dose: 75 mls/hr Ceftriaxone Sodium 2 gm/ (Dextrose) 100 mls @ 200 mls/hr IVPB DAILY [facility]; Protocol Last Admin: 04/05/18 12:15 Dose: 200 mls/hr Metronidazole (Flagyl 500mg Premixed Ivpb -) 500 mg in 100 mls @ 100 mls/hr IVPB Q8H-IV [facility] Last Admin: 04/05/18 10:28 Dose: 100 mls/hr Insulin Aspart (Novolog Vial Sliding Scale -) 1 vial SQ ACHS [facility]; Protocol Last Admin: 04/05/18 12:44 Dose: 2 unit Pantoprazole Sodium (Protonix -) 40 mg PO DAILY [facility] Last Admin: 04/05/18 10:28 Dose: 40 mg Prednisone (Deltasone -) 20 mg PO DAILY [facility] a/p Bacteremia HAP? UTI dementia CKD CLL on prednisone at this time currently on ceftriaxone and afebrile, now positive blood culture- anaerobe repeat blood cultures continue ceftriaxone and flagyl will ct scan abd/pelvis Problem List - Problems (1) Fever Code(s): R50.9 - FEVER, UNSPECIFIED (2) Pneumonia Code(s): J18.9 - PNEUMONIA, UNSPECIFIED ORGANISM (3) UTI (urinary tract infection) Code(s): N39.0 - URINARY TRACT INFECTION, SITE NOT SPECIFIED (4) CKD (chronic kidney disease) Code(s): N18.9 - CHRONIC KIDNEY DISEASE, UNSPECIFIED (5) Chronic lymphocytic leukemia Code(s): C91.90 - LYMPHOID LEUKEMIA, UNSPECIFIED NOT HAVING ACHIEVED REMISSION
[2018-04-05] MEDS: ALLOPURINOL 300 MG TABLET (FP) PO SCH (14:36)
--- NOTE | 2018-04-05 16:32 | CON.GI ---
Consult Consult Specialty:: Gastroenterology Referred by:: Dr. Jordan Reason for Consultation:: Anemia, exclude GI bleed - History of Present Illness Chief Complaint: Tracy offers no complaints. Admitted for fever and cough History of Present Illness: 72F is admitted to evaluate fever and cough. She has no GI complaints and tells me that she is eating well, She denies any overt bleeding but she has required another transfusion for progressive anemia. Tracy is well known to me from her recent hospitalization. She was admitted on 01/2018 with obstructive jaundice due to choledocholithiasis and cholangitis. I removed a stone from the CBD after doing a sphincterotomy on 02/21/18. She has anemia and thrombocytopenia related to her CLL and developed a post-sphincterotomy bleed for which I preformed an EGD on 02/25/2018. She required epinephrine injection and heater probe cautery to control the hemorrhage. Despite this she developed rebleeding and was transferred to [facility] with the intention of having a expandible metallic stent placed to tamponade the bleeding source. Her daughter Dayana informs me that Dr Morris Dudley performed an EGD and endoclipped a visible vessel at the sphincterotomy site. She has not had any further bleeding or recurrence of jaundice. She was seen in my office in 2013 and 09/13 but declined colonoscopy each time. - History Source History Provided By: Patient, Family Member, Medical Record Limitations to Obtaining History: Poor Historian - Past Medical History Cardio/Vascular: Yes: HTN Gastrointestinal: Yes: Diverticulosis (on CT scan), GI Bleed (02/13 post- sphincterotomy bleed) Hepatobiliary: Yes: Cholelithiasis, Choledocholithiasis (with cholangitis 02/13 requring ERCP & sphincterotomy complicated by a post-sphincterotomy bleed ) Renal/: Yes: Renal Calculi ...: No Heme/Onc: Yes: Anemia, Cancer (CLL- had bone marrow at [facility] recently), Other ( thalassemia) Psych: Yes: Anxiety Musculoskeletal: Yes: Chronic low back pain - Past Surgical History Past Surgical History: Yes: Tonsillectomy, Upper Endoscopy Additional Surgical History: ERCP with sphincterotomy 2017 complicated by post- sphincterotomy bleed. Left axillary lymph node biopsy. 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 Place of : [facility] History of Recent Travel: No Home Medications - Allergies Allergies/Adverse Reactions: Allergies Allergy/AdvReac Type Severity Reaction Status Date / Time No Known Drug Allergies Allergy Verified 02/15/18 08:23 - Home Medications Home Medications: Ambulatory Orders Amlodipine Besylate [Norvasc -] 10 mg PO DAILY 03/31/18 Folic Acid 1 mg PO DAILY 03/31/18 Pantoprazole Sodium [Protonix] 40 mg PO DAILY 03/31/18 Prednisone [Deltasone] 30 mg PO ASDIR 03/31/18 Family Disease History - Family Disease History Family Disease History: Other: Father (in his 80's pneumonia), Mother ( age 93 of CVA hemorrhage) Review of Systems - Review of Systems Constitutional: reports: Fever, Malaise HENT: reports: No Symptoms Respiratory: reports: Cough Genitourinary: reports: No Symptoms Physical Exam-GI Vital Signs: Vital Signs Temperature 97.9 F 04/05/18 14:38 Pulse Rate 90 04/05/18 14:38 Respiratory Rate 16 04/05/18 15:31 Blood Pressure 136/73 04/05/18 14:38 O2 Sat by Pulse Oximetry (%) 95 04/05/18 15:31 CBC,CMP WBC 6.6 K/mm3 (4.0-10.0) 04/05/18 06:30 RBC 3.90 M/mm3 (3.60-5.2) 04/05/18 06:30 Hgb 10.8 GM/dL (10.7-15.3) 04/05/18 06:30 Hct 33.1 % (32.4-45.2) D 04/05/18 06:30 MCV 84.7 fl (80-96) 04/05/18 06:30 MCH 27.6 pg (25.7-33.7) 04/05/18 06:30 MCHC 32.6 g/dl (32.0-36.0) 04/05/18 06:30 RDW 15.0 % (11.6-15.6) 04/05/18 06:30 Plt Count 68 K/MM3 (134-434) L 04/05/18 06:30 MPV 9.8 fl (7.5-11.1) 04/05/18 06:30 Absolute Neuts (auto) 5.2 K/mm3 (1.5-8.0) 04/05/18 06:30 Total Counted 100 04/03/18 06:00 Neutrophils % 79.1 % (42.8-82.8) 04/05/18 06:30 Neutrophils % (Manual) 78.4 % (42.8-82.8) 04/05/18 06:30 Band Neutrophils % 0.0 % 04/05/18 06:30 Lymphocytes % 18.9 % (8-40) D 04/05/18 06:30 Lymphocytes % (Manual) 13.4 % (8-40) D 04/05/18 06:30 Monocytes % 1.2 % (3.8-10.2) L 04/05/18 06:30 Monocytes % (Manual) 1 % (3.8-10.2) L 04/05/18 06:30 Eosinophils % 0.2 % (0-4.5) 04/05/18 06:30 Eosinophils % (Manual) 0.0 % (0-4.5) 04/05/18 06:30 Basophils % 0.6 % (0-2.0) 04/05/18 06:30 Basophils % (Manual) 0.0 % (0-2.0) 04/05/18 06:30 Myelocytes % (Man) 0 % (0-2) D 04/05/18 06:30 Promyelocytes % (Man) 0 % (0-2) 04/05/18 06:30 Blast Cells % (Manual) 0 % (0-0) 04/05/18 06:30 Nucleated RBC % 0 % (0-0) 04/05/18 06:30 Metamyelocytes 1 % (0-2) D 04/05/18 06:30 Hypochromia 1+ 04/05/18 06:30 Platelet Estimate Decreased 04/05/18 06:30 Platelet Comment No clumping noted 03/31/18 18:40 Polychromasia 1+ 04/05/18 06:30 Poikilocytosis 0 04/05/18 06:30 Basophilic Stippling 1+ 04/02/18 09:08 Anisocytosis 2+ 04/05/18 06:30 Microcytosis 2+ 04/05/18 06:30 Macrocytosis 0 04/05/18 06:30 Spherocytes 1+ 04/02/18 09:08 Tear Drop Cells 1+ 04/05/18 06:30 Ovalocytes 1+ 04/02/18 09:08 Retic Count 3.52 % (0.5-1.5) H D 04/02/18 09:08 Haptoglobin 217 mg/dL (34-200) H 04/02/18 09:08 Sodium 139 mmol/L (136-145) 04/05/18 06:30 Potassium 4.0 mmol/L (3.5-5.1) 04/05/18 06:30 Chloride 103 mmol/L (98-107) 04/05/18 06:30 Carbon Dioxide 29 mmol/L (21-32) 04/05/18 06:30 Anion Gap 7 MMOL/L (8-16) L 04/05/18 06:30 BUN 35 mg/dL (7-18) H 04/05/18 06:30 Creatinine 0.9 mg/dL (0.55-1.3) 04/05/18 06:30 Creat Clearance w eGFR > 60 (>60) 04/05/18 06:30 POC Glucometer 166 UNITS (80-120) 04/05/18 12:43 Random Glucose 96 mg/dL (74-106) 04/05/18 06:30 Lactic Acid 2.0 mmol/L (0.4-2.0) 04/01/18 06:00 Uric Acid 2.7 mg/dL (2.6-7.2) 04/02/18 09:08 Calcium 9.2 mg/dL (8.5-10.1) 04/05/18 06:30 Total Bilirubin 0.6 mg/dL (0.2-1) 04/05/18 06:30 AST 13 U/L (15-37) L 04/05/18 06:30 ALT 22 U/L (13-61) 04/05/18 06:30 Alkaline Phosphatase 78 U/L (45-117) 04/05/18 06:30 LD Total 232 U/L (84-246) 04/02/18 09:08 Troponin I < 0.02 ng/ml (0.00-0.05) 03/31/18 18:40 Total Protein 6.2 g/dl (6.4-8.2) L 04/05/18 06:30 Albumin 2.6 g/dl (3.4-5.0) L 04/05/18 06:30 Current Medications Generic Name Dose Route Start Last Admin Trade Name Eloise PRN Reason Stop Dose Admin Acetaminophen 650 mg 03/31/18 19:44 Tylenol - PO Q6H PRN FEVER Allopurinol 300 mg 04/05/18 10:00 04/05/18 14:36 Zyloprim - PO 300 mg DAILY RYAN Administration Amlodipine Besylate 2.5 mg 04/01/18 10:00 04/05/18 10:28 Norvasc - PO 2.5 mg DAILY RYAN Administration Folic Acid 1 mg 04/01/18 10:00 04/05/18 10:28 Folic Acid - PO 1 mg DAILY RYAN Administration Sodium Chloride 1,000 mls @ 75 mls/hr 04/03/18 11:00 04/05/18 16:12 Normal Saline - IV 75 mls/hr ASDIR RYAN Administration Ceftriaxone Sodium 2 gm/ 100 mls @ 200 mls/hr 04/03/18 14:30 04/05/18 12:15 Dextrose IVPB 200 mls/hr DAILY RYAN Administration Protocol Metronidazole 500 mg in 100 mls @ 100 mls/hr 04/04/18 13:00 04/05/18 10:28 Flagyl 500mg Premixed Ivpb - IVPB 100 mls/hr Q8H-IV RYAN Administration Insulin Aspart 1 vial 04/03/18 11:00 04/05/18 16:30 Novolog Vial Sliding Scale - SQ 4 unit ACHS RYAN Administration Protocol Pantoprazole Sodium 40 mg 04/01/18 10:00 04/05/18 10:28 Protonix - PO 40 mg DAILY RYNA Administration Prednisone 20 mg 04/06/18 10:00 Deltasone - PO DAILY RYAN Constitutional: Yes: Calm Eyes: Yes: Conjunctiva Clear HENT: Yes: Normocephalic Neck: Yes: Supple, Lymphadenopathy (small) Cardiovascular: Yes: Regular Rate and Rhythm Respiratory: Yes: CTA Bilaterally Gastrointestinal Inspection: Yes: WNL ...Auscultate: Yes: Normoactive Bowel Sounds ...Palpate: Yes: Soft, Other (nontender) ...Rectal Exam: Yes: Guaiac Negative (soft brown guaiac negative stool) Extremities: Yes: WNL Edema: No Labs: CBC, BMP 04/05/18 06:30 04/05/18 06:30 INR, PTT INR 1.24 (0.83-1.09) H 03/31/18 18:40 Imaging - Results Cat Scan: Report Reviewed (diffuse lymphadenopathy), Image Reviewed Problem List - Problems (1) GI (gastrointestinal hemorrhage) Assessment/Plan: There is no evidence of recurrent or new GI bleeding as contributing to the current anemia. Pantoprazole should be continued as she is a candidate for stress gastritis Code(s): K92.2 - GASTROINTESTINAL HEMORRHAGE, UNSPECIFIED (2) Choledocholithiasis Assessment/Plan: Fortunately no signs of residual stone or CBD obstruction Code(s): K80.50 - CALCULUS OF BILE DUCT W/O CHOLANGITIS OR CHOLECYST W/O OBST (3) Chronic lymphocytic leukemia Code(s): C91.90 - LYMPHOID LEUKEMIA, UNSPECIFIED NOT HAVING ACHIEVED REMISSION (4) Pneumonia Code(s): J18.9 - PNEUMONIA, UNSPECIFIED ORGANISM (5) Fever Code(s): R50.9 - FEVER, UNSPECIFIED Assessment/Plan No signs of GI hemorrhage or bile duct obstruction
[2018-04-05] MEDS ORDERED: INSULIN (NOVOLOG) ASPART 100 UNITS/ML 10ML VIAL ONE (21:51)
[2018-04-06] MEDS: INSULIN SLIDING SCALE (NOVOLOG) 1 VIAL SQ SCH ×4 (06:27→21:25)
[2018-04-06 07:26] LABS: BASO % 0.6 % (0-2.0); EOS % 0.2 % (0-4.5); HEMATOCRIT 29.1 % (32.4-45.2); HEMOGLOBIN 9.5 GM/dL (10.7-15.3); LYMPH % 38.2 % (8-40); MCH 27.6 pg (25.7-33.7); MCHC 32.6 g/dl (32.0-36.0); MEAN CELL VOLUME 84.8 fl (80-96); MEAN PLT VOLUME 9.6 fl (7.5-11.1); MONO % 1.3 % (3.8-10.2); NEUT % 59.7 % (42.8-82.8); PLATELET COUNT 70 K/MM3 (134-434); RBC 3.43 M/mm3 (3.60-5.2); RDW 15.3 % (11.6-15.6); WHITE BLOOD COUNT 3.6 K/mm3 (4.0-10.0)
--- NOTE | 2018-04-06 07:30 | PN ---
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, Physician Chief Complaint: feeling well no co events and consults noted and d./w pt - Current Medication List Current Medications: Active Medications Acetaminophen (Tylenol -) 650 mg PO Q6H PRN PRN Reason: FEVER Allopurinol (Zyloprim -) 300 mg PO DAILY [facility] Last Admin: 04/05/18 14:36 Dose: 300 mg Amlodipine Besylate (Norvasc -) 2.5 mg PO DAILY [facility] Last Admin: 04/05/18 10:28 Dose: 2.5 mg Folic Acid (Folic Acid -) 1 mg PO DAILY [facility] Last Admin: 04/05/18 10:28 Dose: 1 mg Sodium Chloride (Normal Saline -) 1,000 mls @ 75 mls/hr IV ASDIR [facility] Last Admin: 04/05/18 16:12 Dose: 75 mls/hr Ceftriaxone Sodium 2 gm/ (Dextrose) 100 mls @ 200 mls/hr IVPB DAILY [facility]; Protocol Last Admin: 04/05/18 12:15 Dose: 200 mls/hr Metronidazole (Flagyl 500mg Premixed Ivpb -) 500 mg in 100 mls @ 100 mls/hr IVPB Q8H-IV [facility] Last Admin: 04/06/18 02:23 Dose: 100 mls/hr Insulin Aspart (Novolog Vial Sliding Scale -) 1 vial SQ ACHS [facility]; Protocol Last Admin: 04/06/18 06:27 Dose: Not Given Pantoprazole Sodium (Protonix -) 40 mg PO DAILY [facility] Last Admin: 04/05/18 10:28 Dose: 40 mg Prednisone (Deltasone -) 20 mg PO DAILY [facility] - Objective Vital Signs: Vital Signs Temperature 97.5 F L 04/06/18 06:00 Pulse Rate 69 04/06/18 06:00 Respiratory Rate 18 04/06/18 06:00 Blood Pressure 141/73 04/06/18 06:00 O2 Sat by Pulse Oximetry (%) 95 04/05/18 21:00 Constitutional: Yes: No Distress, Calm Eyes: Yes: Conjunctiva Clear HENT: Yes: Atraumatic Neck: Yes: Supple Cardiovascular: Yes: Regular Rate and Rhythm Respiratory: Yes: CTA Bilaterally Gastrointestinal: Yes: Soft. No: Distention Genitourinary: No: CVA Tenderness - Left, CVA Tenderness - Right Musculoskeletal: No: Joint Stiffness, Joint Swelling Extremities: No: Cold, Cool, Cyanosis Edema: No Integumentary: No: Rash, Venous Stasis Changes Neurological: Yes: WNL, Alert, Oriented ...Motor Strength: WNL Psychiatric: Yes: WNL, Alert, Oriented. No: Agitated, Suicidal Ideation Labs: INR, PTT INR 1.24 (0.83-1.09) H 03/31/18 18:40 - ....Imaging Other: Report Reviewed Assessment/Plan 72yo F with PMH of CLL, HTN, CHF, choledocholithiasis presenting with fever and cough. UTI, PNA? sepsis IV antibiotics per ID; 1 set + blood cx ID added flagyl heme onc f/u f/u labs and cultures s/p PLT and PRBC for low Hg and low PLT; might need transfusions again if blood counts drop falls decubs DVT pfx d/w pt do not get OOB alone, ask for help if needs OOB DVT Pfx ambulate and TEds SDC wound not use heparin given h/o severe anemia and low PLT prognosis guarded d /w pt and staff
[2018-04-06 07:52] LABS: ALBUMIN 2.4 g/dl (3.4-5.0); ALK PHOS 71 U/L (45-117); ANION GAP 7 MMOL/L (8-16); BILIRUBIN,TOTAL 1.5 mg/dL (0.2-1); BLOOD UREA NITROGEN 30 mg/dL (7-18); CALCIUM 8.4 mg/dL (8.5-10.1); CHLORIDE 102 mmol/L (98-107); CO2 29 mmol/L (21-32); CREATININE 0.8 mg/dL (0.55-1.3); GLUCOSE,RANDOM 97 mg/dL (74-106); LDH 168 U/L (84-246); POTASSIUM 3.6 mmol/L (3.5-5.1); SGOT/AST 10 U/L (15-37); SGPT/ALT 21 U/L (13-61); SODIUM 139 mmol/L (136-145); TOT PROT 5.7 g/dl (6.4-8.2); URIC ACID 1.8 mg/dL (2.6-7.2)
[2018-04-06 08:06] LABS: IGA IMMUNOGLOBULIN 273 mg/dL (64-422); IGM IMMUNOGLOBULIN 140 mg/dL (26-217)
[2018-04-06] MEDS ORDERED: DEXTROSE 5%-WATER 100 ML IVPB ONE (09:06)
[2018-04-06] MEDS: CEFTRIAXONE 2 GM in DEXTROSE 5%-WATER 100 ML IVPB SCH (09:31)
[2018-04-06] MEDS: FOLIC ACID 1 MG TABLET (FP) PO SCH (09:32)
[2018-04-06] MEDS: predniSONE 20 MG TABLET (UD) PO SCH (09:32)
[2018-04-06] MEDS: amLODIPine BESYLATE 2.5 MG TABLET (FP) PO SCH (09:32)
[2018-04-06] MEDS: PANTOPRAZOLE 40 MG TABLET (FP) PO SCH (09:32)
[2018-04-06] MEDS: ALLOPURINOL 300 MG TABLET (FP) PO SCH (09:32)
--- NOTE | 2018-04-06 10:20 | PN ---
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 (short form) - Note 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: no more fevers since admission denies cough feels well transferred to 7 now Vital Signs Period Temp Pulse Resp BP Sys/Borjas Pulse Ox Last 24 Hr 97.5 F-98.4 F 69-91 16-18 136-147/73-77 95-95 poor dentition cor-rrr lungs clear abd soft,nt ext no edema CBC, BMP 04/06/18 06:30 04/06/18 06:30 Microbiology 03/31/18 19:10 Blood - Peripheral Venous Blood Culture - Final NO GROWTH AFTER 5 DAYS INCUBATION 04/04/18 16:00 Blood - Peripheral Venous Blood Culture - Preliminary NO GROWTH OBTAINED AFTER 24 HOURS, INCUBATION TO CONTINUE FOR 4 DAYS. 04/04/18 15:30 Blood - Peripheral Venous Blood Culture - Preliminary NO GROWTH OBTAINED AFTER 24 HOURS, INCUBATION TO CONTINUE FOR 4 DAYS. 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 UTI dementia CKD CLL on prednisone at this time continue ceftriaxone and flagyl- day #6 antibiotics Problem List - Problems (1) Fever Code(s): R50.9 - FEVER, UNSPECIFIED (2) Pneumonia Code(s): J18.9 - PNEUMONIA, UNSPECIFIED ORGANISM (3) UTI (urinary tract infection) Code(s): N39.0 - URINARY TRACT INFECTION, SITE NOT SPECIFIED (4) CKD (chronic kidney disease) Code(s): N18.9 - CHRONIC KIDNEY DISEASE, UNSPECIFIED (5) Chronic lymphocytic leukemia Code(s): C91.90 - LYMPHOID LEUKEMIA, UNSPECIFIED NOT HAVING ACHIEVED REMISSION
[2018-04-06] MEDS: SODIUM CHLORIDE 1,000 ML IV SCH ×2 (11:05→13:42)
--- NOTE | 2018-04-06 11:30 | PN ---
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, Physician History of Present Illness: 72yo white woman with PMH of CLL, PAD (70% Lt iliac stenosis), hyperlipidemia, HTN, diastolic CHF, choledocholithiasis, now presenting with fever and cough. Patient was sent by her heme/onc specialist, Dr. Garcia. Patient's recent history is significant for recent hospital stay. She had cholodocholithiasis in late January which necessitated ERCP with sphinceterotomy at this hospital. Patient's hospital course was significant for GI bleed for which she was ultimately transferred to [facility]. Patient stayed there for two weeks and was discharged to [facility]. At [facility], she was found to have low hemoglobin for which she was sent to [facility] and transfused. Patient was discharged last night and saw Dr. Garcia today. Patient has no chest pain or shortness of breath - Current Medication List Current Medications: Active Medications Acetaminophen (Tylenol -) 650 mg PO Q6H PRN PRN Reason: FEVER Allopurinol (Zyloprim -) 300 mg PO DAILY [facility] Last Admin: 04/06/18 09:32 Dose: 300 mg Amlodipine Besylate (Norvasc -) 2.5 mg PO DAILY [facility] Last Admin: 04/06/18 09:32 Dose: 2.5 mg Folic Acid (Folic Acid -) 1 mg PO DAILY [facility] Last Admin: 04/06/18 09:32 Dose: 1 mg Sodium Chloride (Normal Saline -) 1,000 mls @ 75 mls/hr IV ASDIR [facility] Last Admin: 04/06/18 11:05 Dose: Not Given Ceftriaxone Sodium 2 gm/ (Dextrose) 100 mls @ 200 mls/hr IVPB DAILY [facility]; Protocol Last Admin: 04/06/18 09:31 Dose: 200 mls/hr Metronidazole (Flagyl 500mg Premixed Ivpb -) 500 mg in 100 mls @ 100 mls/hr IVPB Q8H-IV [facility] Last Admin: 04/06/18 11:03 Dose: 100 mls/hr Insulin Aspart (Novolog Vial Sliding Scale -) 1 vial SQ ACHS [facility]; Protocol Last Admin: 04/06/18 06:27 Dose: Not Given Pantoprazole Sodium (Protonix -) 40 mg PO DAILY [facility] Last Admin: 04/06/18 09:32 Dose: 40 mg Prednisone (Deltasone -) 20 mg PO DAILY [facility] Last Admin: 04/06/18 09:32 Dose: 20 mg - Objective Vital Signs: Vital Signs Temperature 97.5 F L 04/06/18 06:00 Pulse Rate 69 04/06/18 06:00 Respiratory Rate 18 04/06/18 06:00 Blood Pressure 141/73 04/06/18 06:00 O2 Sat by Pulse Oximetry (%) 95 04/05/18 21:00 Eyes: Yes: WNL, Conjunctiva Clear, EOM Intact HENT: Yes: WNL, Atraumatic, Normocephalic Neck: Yes: WNL, Supple, Trachea Midline Cardiovascular: Yes: WNL, Regular Rate and Rhythm Respiratory: Yes: WNL, Regular, CTA Bilaterally Gastrointestinal: Yes: WNL, Normal Bowel Sounds Genitourinary: Yes: WNL Musculoskeletal: Yes: WNL Extremities: Yes: WNL Edema: No Integumentary: Yes: WNL Neurological: Yes: WNL, Alert, Oriented ...Motor Strength: WNL Psychiatric: Yes: WNL Labs: CBC, BMP 04/06/18 06:30 04/06/18 06:30 INR, PTT INR 1.24 (0.83-1.09) H 03/31/18 18:40 Assessment/Plan - Problems (1) CKD (chronic kidney disease) Code(s): N18.9 - CHRONIC KIDNEY DISEASE, UNSPECIFIED (2) Chronic lymphocytic leukemia Code(s): C91.90 - LYMPHOID LEUKEMIA, UNSPECIFIED NOT HAVING ACHIEVED REMISSION (3) SIRS (systemic inflammatory response syndrome) Code(s): R65.10 - SIRS OF NON-INFECTIOUS ORIGIN W/O ACUTE ORGAN DYSFUNCTION (4) Anxiety disorder Code(s): F41.9 - ANXIETY DISORDER, UNSPECIFIED (5) Choledocholithiasis Assessment/Plan: f/u with oncologist, GI. Code(s): K80.50 - CALCULUS OF BILE DUCT W/O CHOLANGITIS OR CHOLECYST W/O OBST (6) Diastolic CHF Assessment/Plan: BNP > 1,300 (double its level of several years ago) ECHO: normal LVEF; abnormal diastolic compliance; mlild MR and TR F/u BUN/Cr, electrolytes, daily wt, Is and Os. Code(s): I50.30 - UNSPECIFIED DIASTOLIC (CONGESTIVE) HEART FAILURE (7) Fever Code(s): R50.9 - FEVER, UNSPECIFIED (8) HTN (hypertension) Code(s): I10 - ESSENTIAL (PRIMARY) HYPERTENSION (9) Nephrolithiasis Code(s): N20.0 - CALCULUS OF KIDNEY (10) Thrombocytopenia Assessment/Plan: Platelet level remains low, but relatively stable. Code(s): D69.6 - THROMBOCYTOPENIA, UNSPECIFIED (11) Anemia Code(s): D64.9 - ANEMIA, UNSPECIFIED (12) PAD (peripheral artery disease) Code(s): I73.9 - PERIPHERAL VASCULAR DISEASE, UNSPECIFIED (13) Positive blood cultures Assessment/Plan: On Rocephin and Flagyl. F/u with ID. Code(s): R78.81 - BACTEREMIA
--- NOTE | 2018-04-06 12:01 | PN ---
GI 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 Subjective: GI NOte: No GI complaints. CT not yet read but I see no liver abscesses or residual CBD stone. The gallbladder has stones. - Objective Vital Signs: Vital Signs Temperature 98.4 F 04/06/18 10:00 Pulse Rate 82 04/06/18 10:00 Respiratory Rate 20 04/06/18 10:00 Blood Pressure 152/73 04/06/18 10:00 O2 Sat by Pulse Oximetry (%) 95 04/05/18 21:00 Laboratory Tests 04/05/18 04/06/18 04/06/18 06:30 06:30 06:30 Hgb 10.8 9.5 L Total Bilirubin 1.5 H AST 10 L ALT 21 Alkaline Phosphatase 71 Constitutional: No Distress ...Auscultate: Yes: Normoactive Bowel Sounds ...Palpate: Yes: Soft, Other (nontender) Labs: CBC, BMP 04/06/18 06:30 04/06/18 06:30 INR, PTT INR 1.24 (0.83-1.09) H 03/31/18 18:40 Assessment/Plan NO GI bleeding or complaints Hb slightly decreased. Problem List - Problems (1) GI (gastrointestinal hemorrhage) Assessment/Plan: No overt GI bleeding in the hospital Code(s): K92.2 - GASTROINTESTINAL HEMORRHAGE, UNSPECIFIED (2) Choledocholithiasis Code(s): K80.50 - CALCULUS OF BILE DUCT W/O CHOLANGITIS OR CHOLECYST W/O OBST (3) Chronic lymphocytic leukemia Code(s): C91.90 - LYMPHOID LEUKEMIA, UNSPECIFIED NOT HAVING ACHIEVED REMISSION (4) Pneumonia Code(s): J18.9 - PNEUMONIA, UNSPECIFIED ORGANISM (5) Fever Code(s): R50.9 - FEVER, UNSPECIFIED
[2018-04-06] MEDS ORDERED: INSULIN (NOVOLOG) ASPART 100 UNITS/ML 10ML VIAL ONE (12:03)
--- NOTE | 2018-04-06 17:36 | PN ---
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 (short form) - Note 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: Patient seen and examined Discussed with daughter Dayana CT results noted Will need to have follow up, continue with antibiotics, ask I.R. about possible biopsy. If biopsy is indicated - will need to transfuse platelets Last Vital Signs Temp Pulse Resp BP Pulse Ox 98.1 F 87 20 131/66 98 04/06/18 13:56 04/06/18 13:56 04/06/18 13:56 04/06/18 13:56 04/06/18 09:00 HEENT: FELIBERTO, EOM Intact Oropharynx: No thrush, No mucositis, poor dentition Cor: RSR, No murmurs, No gallops Lungs: Clear to P&A Abd: Soft, Normal bowel sounds, No organomegaly Ext:No significant edema Skin: No rashes, Integument intact CBC, BMP 04/06/18 06:30 04/06/18 06:30 Current Medications Generic Name Dose Route Start Last Admin Trade Name Freq PRN Reason Stop Dose Admin Acetaminophen 650 mg 03/31/18 19:44 Tylenol - PO Q6H PRN FEVER Allopurinol 300 mg 04/05/18 10:00 04/06/18 09:32 Zyloprim - PO 300 mg DAILY RYAN Administration Amlodipine Besylate 2.5 mg 04/01/18 10:00 04/06/18 09:32 Norvasc - PO 2.5 mg DAILY RYAN Administration Folic Acid 1 mg 04/01/18 10:00 04/06/18 09:32 Folic Acid - PO 1 mg DAILY RYAN Administration Sodium Chloride 1,000 mls @ 75 mls/hr 04/03/18 11:00 04/06/18 13:42 Normal Saline - IV 75 mls/hr ASDIR RYAN Administration Ceftriaxone Sodium 2 gm/ 100 mls @ 200 mls/hr 04/03/18 14:30 04/06/18 09:31 Dextrose IVPB 200 mls/hr DAILY RYAN Administration Protocol Metronidazole 500 mg in 100 mls @ 100 mls/hr 04/04/18 13:00 04/06/18 17:09 Flagyl 500mg Premixed Ivpb - IVPB 100 mls/hr Q8H-IV RYAN Administration Insulin Aspart 1 vial 04/03/18 11:00 04/06/18 16:51 Novolog Vial Sliding Scale - SQ Not Given ACHS RYAN Protocol Pantoprazole Sodium 40 mg 04/01/18 10:00 04/06/18 09:32 Protonix - PO 40 mg DAILY RYAN Administration Prednisone 20 mg 04/06/18 10:00 04/06/18 09:32 Deltasone - PO 20 mg DAILY RYAN Administration Impression CLL Kidney lesion- ?hemorrhage vs abscess Kidney stones UTI + blood cultures Leukopenia Thrombocytopenia S/P shincterotomy ? diverticulitis of sigmoid s/p GI bleeding continue antibiotics per ID Consult IR consult Transfuse platelets prn procedure if < 100k
[2018-04-07] MEDS: INSULIN SLIDING SCALE (NOVOLOG) 1 VIAL SQ SCH ×4 (06:20→21:26)
[2018-04-07 07:06] LABS: BASO % 0.8 % (0-2.0); EOS % 0.3 % (0-4.5); HEMATOCRIT 29.1 % (32.4-45.2); HEMOGLOBIN 9.5 GM/dL (10.7-15.3); LYMPH % 20.2 % (8-40); MCH 27.6 pg (25.7-33.7); MCHC 32.7 g/dl (32.0-36.0); MEAN CELL VOLUME 84.5 fl (80-96); MEAN PLT VOLUME 9.1 fl (7.5-11.1); MONO % 0.8 % (3.8-10.2); NEUT % 77.9 % (42.8-82.8); PLATELET COUNT 70 K/MM3 (134-434); RBC 3.44 M/mm3 (3.60-5.2); RDW 15.6 % (11.6-15.6); WHITE BLOOD COUNT 5.2 K/mm3 (4.0-10.0)
[2018-04-07 07:38] LABS: INR 1.39 (0.83-1.09); PROTHROMBIN TIME (PATIENT) 16.4 SEC (9.7-13.0)
[2018-04-07 07:48] LABS: ALBUMIN 2.3 g/dl (3.4-5.0); ALK PHOS 66 U/L (45-117); ANION GAP 6 MMOL/L (8-16); BILIRUBIN,TOTAL 0.7 mg/dL (0.2-1); BLOOD UREA NITROGEN 23 mg/dL (7-18); CALCIUM 8.6 mg/dL (8.5-10.1); CHLORIDE 103 mmol/L (98-107); CO2 29 mmol/L (21-32); CREATININE 0.8 mg/dL (0.55-1.3); GLUCOSE,RANDOM 93 mg/dL (74-106); SGOT/AST 19 U/L (15-37); SGPT/ALT 23 U/L (13-61); SODIUM 138 mmol/L (136-145); TOT PROT 5.4 g/dl (6.4-8.2)
--- NOTE | 2018-04-07 08:40 | PN ---
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, Physician Chief Complaint: pulled out 3 IVs (despite being told she needs IV ATB for sepsis) and was aggressive toward the staff; psych called currently better OOB to chair calm denies any c.o said she just wants to go home - Current Medication List Current Medications: Active Medications Acetaminophen (Tylenol -) 650 mg PO Q6H PRN PRN Reason: FEVER Allopurinol (Zyloprim -) 300 mg PO DAILY [facility] Last Admin: 04/06/18 09:32 Dose: 300 mg Amlodipine Besylate (Norvasc -) 2.5 mg PO DAILY [facility] Last Admin: 04/06/18 09:32 Dose: 2.5 mg Folic Acid (Folic Acid -) 1 mg PO DAILY [facility] Last Admin: 04/06/18 09:32 Dose: 1 mg Sodium Chloride (Normal Saline -) 1,000 mls @ 75 mls/hr IV ASDIR [facility] Last Admin: 04/06/18 13:42 Dose: 75 mls/hr Ceftriaxone Sodium 2 gm/ (Dextrose) 100 mls @ 200 mls/hr IVPB DAILY [facility]; Protocol Last Admin: 04/06/18 09:31 Dose: 200 mls/hr Metronidazole (Flagyl 500mg Premixed Ivpb -) 500 mg in 100 mls @ 100 mls/hr IVPB Q8H-IV [facility] Last Admin: 04/07/18 01:10 Dose: 100 mls/hr Insulin Aspart (Novolog Vial Sliding Scale -) 1 vial SQ ACHS [facility]; Protocol Last Admin: 04/07/18 06:20 Dose: Not Given Pantoprazole Sodium (Protonix -) 40 mg PO DAILY [facility] Last Admin: 04/06/18 09:32 Dose: 40 mg Prednisone (Deltasone -) 20 mg PO DAILY [facility] Last Admin: 04/06/18 09:32 Dose: 20 mg - Objective Vital Signs: Vital Signs Temperature 98.2 F 04/07/18 06:00 Pulse Rate 87 04/07/18 06:00 Respiratory Rate 20 04/07/18 06:00 Blood Pressure 144/72 04/07/18 06:00 O2 Sat by Pulse Oximetry (%) 96 04/06/18 21:00 Constitutional: Yes: No Distress, Calm Eyes: Yes: Conjunctiva Clear HENT: Yes: Atraumatic Neck: Yes: Supple Cardiovascular: Yes: Regular Rate and Rhythm Respiratory: Yes: CTA Bilaterally Gastrointestinal: Yes: Soft. No: Distention Genitourinary: No: CVA Tenderness - Left, CVA Tenderness - Right Musculoskeletal: No: Joint Stiffness, Joint Swelling Extremities: No: Cold, Cool, Cyanosis Edema: No Integumentary: No: Rash, Venous Stasis Changes Neurological: Yes: WNL, Alert, Oriented ...Motor Strength: WNL Psychiatric: Yes: WNL, Alert, Oriented. No: Agitated, Suicidal Ideation Labs: CBC, BMP 04/07/18 06:30 04/07/18 06:30 INR, PTT INR 1.39 (0.83-1.09) H 04/07/18 06:30 - ....Imaging Other: Report Reviewed Assessment/Plan 72yo F with PMH of CLL, HTN, CHF, choledocholithiasis presenting with fever and cough. UTI, PNA? sepsis IV antibiotics per ID; 1 set + blood cx ID added flagyl; possible renal abscess versus hemorrhagic cyst heme onc, ID and f/u psych consult f/u labs and cultures s/p PLT and PRBC for low Hg and low PLT; might need transfusions again if blood counts drop falls decubs DVT pfx d/w pt do not get OOB alone, ask for help if needs OOB DVT Pfx ambulate and TEds SDC wound not use heparin given h/o severe anemia and low PLT prognosis guarded d /w pt and staff
[2018-04-07] MEDS ORDERED: DEXTROSE 5%-WATER 100 ML IVPB ONE (09:23)
[2018-04-07] MEDS: CEFTRIAXONE 2 GM in DEXTROSE 5%-WATER 100 ML IVPB SCH (10:14)
[2018-04-07] MEDS: FOLIC ACID 1 MG TABLET (FP) PO SCH (10:15)
[2018-04-07] MEDS: amLODIPine BESYLATE 2.5 MG TABLET (FP) PO SCH (10:15)
[2018-04-07] MEDS: PANTOPRAZOLE 40 MG TABLET (FP) PO SCH (10:15)
[2018-04-07] MEDS: predniSONE 20 MG TABLET (UD) PO SCH (10:15)
[2018-04-07] MEDS: ALLOPURINOL 300 MG TABLET (FP) PO SCH (10:15)
[2018-04-07 10:37] LABS: ANISOCYTOSIS 1+; MACROCYTOSIS 1+; PLATELET ESTIMATE DECREASED
--- NOTE | 2018-04-07 11:43 | CON.PSY ---
Psychiatry Consult Chief Complaint: Patient seen for psych eval for competency and behavioral difficulties. She has been displaying anger at staff. Symptoms: reports: Impaired Concentration, Irritability, Disorganized/ Disruptive Thoughts - Previous Psychiatric Treatment Outpatient: None Inpatient: None - Previous Substance Abuse Treatment Outpatient: None Inpatient: None - Current Medications Current Medications: Active Medications Acetaminophen (Tylenol -) 650 mg PO Q6H PRN PRN Reason: FEVER Allopurinol (Zyloprim -) 300 mg PO DAILY [facility] Last Admin: 04/07/18 10:15 Dose: 300 mg Amlodipine Besylate (Norvasc -) 2.5 mg PO DAILY [facility] Last Admin: 04/07/18 10:15 Dose: 2.5 mg Folic Acid (Folic Acid -) 1 mg PO DAILY [facility] Last Admin: 04/07/18 10:15 Dose: 1 mg Sodium Chloride (Normal Saline -) 1,000 mls @ 75 mls/hr IV ASDIR [facility] Last Admin: 04/06/18 13:42 Dose: 75 mls/hr Ceftriaxone Sodium 2 gm/ (Dextrose) 100 mls @ 200 mls/hr IVPB DAILY [facility]; Protocol Last Admin: 04/07/18 10:14 Dose: 200 mls/hr Metronidazole (Flagyl 500mg Premixed Ivpb -) 500 mg in 100 mls @ 100 mls/hr IVPB Q8H-IV [facility] Last Admin: 04/07/18 10:49 Dose: 100 mls/hr Insulin Aspart (Novolog Vial Sliding Scale -) 1 vial SQ ACHS [facility]; Protocol Last Admin: 04/07/18 06:20 Dose: Not Given Pantoprazole Sodium (Protonix -) 40 mg PO DAILY [facility] Last Admin: 04/07/18 10:15 Dose: 40 mg Prednisone (Deltasone -) 20 mg PO DAILY [facility] Last Admin: 04/07/18 10:15 Dose: 20 mg - Allergies Allergies: Allergies Allergy/AdvReac Type Severity Reaction Status Date / Time No Known Drug Allergies Allergy Verified 02/15/18 08:23 - Current Living Status Usual Living Arrangement: With Child - Current Mental Status Evaluation Appearance: Disheveled Attitude: Guarded - Affect Affect: Constrictive Appropriateness: Not Appropriate - Mood Mood: Angry - Speech/Language Expressive: Delayed - Psychomotor Activity Psychomotor Activity: Slowed - Thought Process Thought Process: Circumstantial - Thought Content Hallucinations: Absent Delusions: Absent - Self Perception Self Perception: No Impairment - Cognition Attention: Diminished Orientation: Time Memory, Short Term: 1/3 Memory, Remote with Promptin/3 - Concentration Serial Sevens Intact: No Simple Calculations Intact: No - Abstraction Proverb Interpretation: Verdi Judgement: Minimally Impaired - Insight Insight: Impaired - Impulse Control Impulse Control: Minimally Impaired - Suicidal Ideation Suicidal Ideation: No - Homicidal Ideation Homicidal Ideation: No Assessment/Plan 1) patient lacks functional ca[pacity at this time. 2) Depakote 125mg po bid.
[2018-04-07] MEDS: SODIUM CHLORIDE 1,000 ML IV SCH (11:58)
--- NOTE | 2018-04-07 12:49 | CON.GU ---
Consult - History of Present Illness History of Present Illness: 72 yo female with h/o nephrolithiaisis who has refused lithotripsy in the past, now admitted with fever,cough. Pt has h/o CLL with low platelets. Recent CT showed cortical lesion lower pole left kidney with possible fluid level. Previously a cyst was noted in this region. Pt denies any flank pain or hematuria. Recent urine culture pos but she is afebrile - Past Medical History Cardio/Vascular: Yes: HTN Gastrointestinal: Yes: Diverticulosis (on CT scan), GI Bleed (02/13 post- sphincterotomy bleed) Hepatobiliary: Yes: Cholelithiasis, Choledocholithiasis (with cholangitis 02/13 requring ERCP & sphincterotomy complicated by a post-sphincterotomy bleed ) Renal/: Yes: Renal Calculi ...: No Psych: Yes: Anxiety Musculoskeletal: Yes: Chronic low back pain - Past Surgical History Past Surgical History: Yes: Tonsillectomy, Upper Endoscopy Additional Surgical History: ERCP with sphincterotomy 2017 complicated by post- sphincterotomy bleed. Left axillary lymph node biopsy. 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 of Recent Travel: No Home Medications - Allergies Allergies/Adverse Reactions: Allergies Allergy/AdvReac Type Severity Reaction Status Date / Time No Known Drug Allergies Allergy Verified 02/15/18 08:23 - Home Medications Home Medications: Ambulatory Orders Amlodipine Besylate [Norvasc -] 10 mg PO DAILY 03/31/18 Folic Acid 1 mg PO DAILY 03/31/18 Pantoprazole Sodium [Protonix] 40 mg PO DAILY 03/31/18 Prednisone [Deltasone] 30 mg PO ASDIR 03/31/18 Family Disease History - Family Disease History Family Disease History: Other: Father (in his 80's pneumonia), Mother ( age 93 of CVA hemorrhage) Review of Systems - Review of Systems Genitourinary: reports: No Symptoms Physical Exam- Vital Signs: Vital Signs Temperature 98.3 F 04/07/18 10:00 Pulse Rate 90 04/07/18 10:00 Respiratory Rate 20 04/07/18 10:00 Blood Pressure 135/60 04/07/18 10:00 O2 Sat by Pulse Oximetry (%) 100 04/07/18 09:00 Renal/: Yes: WNL Labs: CBC, BMP 04/07/18 06:30 04/07/18 06:30 Imaging - Results Cat Scan: Report Reviewed Problem List - Problems (1) Cyst of left kidney Assessment/Plan: CT findings likely represent a hemorrhagic cyst, the previous cyst likely bled. Less likely an infectious process. Since pt stable, no need for aspiration or biopsy at this time. Will need repeat imaging in a few days to confirm stability. If pt spikes fever or has a significant drop in HCT then imaging to be done sooner Code(s): N28.1 - CYST OF KIDNEY, ACQUIRED
--- NOTE | 2018-04-07 15:53 | PN ---
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 (short form) - Note 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: no more fevers since admission denies cough feels well no flank pain Vital Signs Period Temp Pulse Resp BP Sys/Borjas Pulse Ox Last 24 Hr 97.6 F-98.5 F 80-93 18-20 129-149/60-81 96-100 cor-rrr lungs clear abd soft,nt no cvat ext no edema ct scan results left kidney fluid collection, ?diverticulitis CBC, BMP 04/07/18 06:30 04/07/18 06:30 Microbiology 04/04/18 16:00 Blood - Peripheral Venous Blood Culture - Preliminary NO GROWTH OBTAINED AFTER 48 HOURS, INCUBATION TO CONTINUE FOR 3 DAYS. 04/04/18 15:30 Blood - Peripheral Venous Blood Culture - Preliminary NO GROWTH OBTAINED AFTER 48 HOURS, INCUBATION TO CONTINUE FOR 3 DAYS. 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 ?mild diverticulitis on ct scan UTI-klebsiella dementia CKD CLL on prednisone at this time continue ceftriaxone and flagyl- day #7 antibiotics urology noted reviewed plan for interval f/u ct scan Problem List - Problems (1) Fever Code(s): R50.9 - FEVER, UNSPECIFIED (2) Pneumonia Code(s): J18.9 - PNEUMONIA, UNSPECIFIED ORGANISM (3) UTI (urinary tract infection) Code(s): N39.0 - URINARY TRACT INFECTION, SITE NOT SPECIFIED (4) CKD (chronic kidney disease) Code(s): N18.9 - CHRONIC KIDNEY DISEASE, UNSPECIFIED (5) Chronic lymphocytic leukemia Code(s): C91.90 - LYMPHOID LEUKEMIA, UNSPECIFIED NOT HAVING ACHIEVED REMISSION
[2018-04-07] MEDS ORDERED: PT OWN MED DRAWER 7, Y5N ONE (21:11)
[2018-04-07] MEDS: DIVALPROEX SODIUM 125 MG SPRINKLE CAPS PO SCH (21:26)
--- NOTE | 2018-04-07 23:33 | PN ---
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 (short form) - Note 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: PAtient seen and examined feels well afvss Cor: RSR, No murmurs, No gallops Lungs: Clear to P&A Abd: Soft, Normal bowel sounds, No organomegaly Labs/Meds reviewed A/P 72 y/o patient with CLL, thrombocytopenia, anemia, pneumonia anemia--multifactorial? CLL+ gilossies + infection. 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
[2018-04-08] MEDS: INSULIN SLIDING SCALE (NOVOLOG) 1 VIAL SQ SCH ×4 (06:14→22:30)
[2018-04-08 07:35] LABS: BASO % 1.5 % (0-2.0); EOS % 1.1 % (0-4.5); HEMATOCRIT 26.2 % (32.4-45.2); HEMOGLOBIN 8.5 GM/dL (10.7-15.3); LYMPH % 43.7 % (8-40); MCH 27.6 pg (25.7-33.7); MCHC 32.5 g/dl (32.0-36.0); MEAN CELL VOLUME 84.9 fl (80-96); MONO % 1.3 % (3.8-10.2); NEUT % 52.4 % (42.8-82.8); PLATELET COUNT 71 K/MM3 (134-434); RBC 3.09 M/mm3 (3.60-5.2); RDW 15.2 % (11.6-15.6); WHITE BLOOD COUNT 3.3 K/mm3 (4.0-10.0)
[2018-04-08 08:03] LABS: ALBUMIN 2.1 g/dl (3.4-5.0); ALK PHOS 56 U/L (45-117); ANION GAP 6 MMOL/L (8-16); BILIRUBIN,TOTAL 0.4 mg/dL (0.2-1); BLOOD UREA NITROGEN 33 mg/dL (7-18); CALCIUM 8.8 mg/dL (8.5-10.1); CHLORIDE 104 mmol/L (98-107); CO2 30 mmol/L (21-32); CREATININE 0.9 mg/dL (0.55-1.3); GLUCOSE,RANDOM 97 mg/dL (74-106); POTASSIUM 3.9 mmol/L (3.5-5.1); SGOT/AST 18 U/L (15-37); SGPT/ALT 22 U/L (13-61); SODIUM 139 mmol/L (136-145); TOT PROT 5.1 g/dl (6.4-8.2)
--- NOTE | 2018-04-08 08:33 | PN ---
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, Physician Chief Complaint: no new c/o denies any c/o - Current Medication List Current Medications: Active Medications Acetaminophen (Tylenol -) 650 mg PO Q6H PRN PRN Reason: FEVER Allopurinol (Zyloprim -) 300 mg PO DAILY [facility] Last Admin: 04/07/18 10:15 Dose: 300 mg Amlodipine Besylate (Norvasc -) 2.5 mg PO DAILY [facility] Last Admin: 04/07/18 10:15 Dose: 2.5 mg Divalproex Sodium (Depakote Sprinkle Caps -) 125 mg PO BID [facility] Last Admin: 04/07/18 21:26 Dose: 125 mg Folic Acid (Folic Acid -) 1 mg PO DAILY [facility] Last Admin: 04/07/18 10:15 Dose: 1 mg Ceftriaxone Sodium 2 gm/ (Dextrose) 100 mls @ 200 mls/hr IVPB DAILY [facility]; Protocol Last Admin: 04/07/18 10:14 Dose: 200 mls/hr Metronidazole (Flagyl 500mg Premixed Ivpb -) 500 mg in 100 mls @ 100 mls/hr IVPB Q8H-IV [facility] Last Admin: 04/08/18 01:57 Dose: 100 mls/hr Insulin Aspart (Novolog Vial Sliding Scale -) 1 vial SQ ACHS [facility]; Protocol Last Admin: 04/08/18 06:14 Dose: Not Given Pantoprazole Sodium (Protonix -) 40 mg PO DAILY [facility] Last Admin: 04/07/18 10:15 Dose: 40 mg Prednisone (Deltasone -) 20 mg PO DAILY [facility] Last Admin: 04/07/18 10:15 Dose: 20 mg - Objective Vital Signs: Vital Signs Temperature 97.5 F L 04/08/18 06:00 Pulse Rate 68 04/08/18 06:00 Respiratory Rate 18 04/08/18 06:00 Blood Pressure 118/61 04/08/18 06:00 O2 Sat by Pulse Oximetry (%) 98 04/07/18 21:00 Constitutional: Yes: No Distress Eyes: Yes: Conjunctiva Clear HENT: Yes: Atraumatic Neck: Yes: Supple Cardiovascular: Yes: Regular Rate and Rhythm Respiratory: Yes: CTA Bilaterally Gastrointestinal: Yes: Soft. No: Distention Genitourinary: No: CVA Tenderness - Left, CVA Tenderness - Right Extremities: No: Calf Tenderness, Cold, Cool, Cyanosis Edema: No Integumentary: Yes: Bruising. No: Rash, Venous Stasis Changes Neurological: Yes: WNL, Alert, Oriented ...Motor Strength: WNL Psychiatric: Yes: WNL, Alert, Oriented. No: Agitated, Suicidal Ideation Labs: CBC, BMP 04/08/18 06:10 04/08/18 06:10 INR, PTT INR 1.39 (0.83-1.09) H 04/07/18 06:30 - ....Imaging Other: Report Reviewed Assessment/Plan 72yo F with PMH of CLL, HTN, CHF, choledocholithiasis presenting with fever and cough. UTI, PNA? sepsis IV antibiotics per ID; 1 set + blood cx ID added flagyl; possible renal abscess versus hemorrhagic cyst heme onc, ID f/u; noted; f/u CT in few days IV ATB /ID f/u labs and cultures s/p PLT and PRBC for low Hg and low PLT; might need transfusions again if blood counts drop falls decubs DVT pfx d/w pt do not get OOB alone, ask for help if needs OOB DVT Pfx ambulate and TEds SDC prognosis guarded d /w pt and staff
[2018-04-08 11:48] LABS: ACANTHOCYTES 2+; ANISOCYTOSIS 1+; MACROCYTOSIS 0; OVALOCYTE 1+; PLATELET ESTIMATE DECREASED; TEAR DROP CELLS 1+
[2018-04-08] MEDS ORDERED: DEXTROSE 5%-WATER 100 ML IVPB ONE (12:18)
[2018-04-08] MEDS ORDERED: PT OWN MED DRAWER 7, Y5N ONE ×2 (12:18→21:21)
[2018-04-08] MEDS: CEFTRIAXONE 2 GM in DEXTROSE 5%-WATER 100 ML IVPB SCH (12:24)
[2018-04-08] MEDS: PANTOPRAZOLE 40 MG TABLET (FP) PO SCH (12:25)
[2018-04-08] MEDS: predniSONE 20 MG TABLET (UD) PO SCH (12:25)
[2018-04-08] MEDS: ALLOPURINOL 300 MG TABLET (FP) PO SCH (12:26)
[2018-04-08] MEDS: FOLIC ACID 1 MG TABLET (FP) PO SCH (12:26)
[2018-04-08] MEDS: amLODIPine BESYLATE 2.5 MG TABLET (FP) PO SCH (12:26)
[2018-04-08] MEDS: DIVALPROEX SODIUM 125 MG SPRINKLE CAPS PO SCH ×2 (12:26→22:25)
--- NOTE | 2018-04-08 12:29 | PN ---
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, Physician History of Present Illness: 72yo white woman with PMH of CLL, PAD (70% Lt iliac stenosis), hyperlipidemia, HTN, diastolic CHF, choledocholithiasis, now presenting with fever and cough. Patient was sent by her heme/onc specialist, Dr. Garcia. Patient's recent history is significant for recent hospital stay. She had cholodocholithiasis in late January which necessitated ERCP with sphinceterotomy at this hospital. Patient's hospital course was significant for GI bleed for which she was ultimately transferred to [facility]. Patient stayed there for two weeks and was discharged to [facility]. At [facility], she was found to have low hemoglobin for which she was sent to [facility] and transfused. Patient was discharged last night and saw Dr. Garcia today. Patient has no chest pain or shortness of breath - Current Medication List Current Medications: Active Medications Acetaminophen (Tylenol -) 650 mg PO Q6H PRN PRN Reason: FEVER Allopurinol (Zyloprim -) 300 mg PO DAILY [facility] Last Admin: 04/07/18 10:15 Dose: 300 mg Amlodipine Besylate (Norvasc -) 2.5 mg PO DAILY [facility] Last Admin: 04/07/18 10:15 Dose: 2.5 mg Divalproex Sodium (Depakote Sprinkle Caps -) 125 mg PO BID [facility] Last Admin: 04/07/18 21:26 Dose: 125 mg Folic Acid (Folic Acid -) 1 mg PO DAILY [facility] Last Admin: 04/07/18 10:15 Dose: 1 mg Ceftriaxone Sodium 2 gm/ (Dextrose) 100 mls @ 200 mls/hr IVPB DAILY [facility]; Protocol Last Admin: 04/07/18 10:14 Dose: 200 mls/hr Metronidazole (Flagyl 500mg Premixed Ivpb -) 500 mg in 100 mls @ 100 mls/hr IVPB Q8H-IV [facility] Last Admin: 04/08/18 01:57 Dose: 100 mls/hr Insulin Aspart (Novolog Vial Sliding Scale -) 1 vial SQ ACHS [facility]; Protocol Last Admin: 04/08/18 06:14 Dose: Not Given Pantoprazole Sodium (Protonix -) 40 mg PO DAILY [facility] Last Admin: 04/07/18 10:15 Dose: 40 mg Prednisone (Deltasone -) 20 mg PO DAILY [facility] Last Admin: 04/07/18 10:15 Dose: 20 mg - Objective Vital Signs: Vital Signs Temperature 97.5 F L 04/08/18 06:00 Pulse Rate 68 04/08/18 06:00 Respiratory Rate 18 04/08/18 06:00 Blood Pressure 118/61 04/08/18 06:00 O2 Sat by Pulse Oximetry (%) 98 04/07/18 21:00 Eyes: Yes: WNL, Conjunctiva Clear, EOM Intact HENT: Yes: WNL, Atraumatic, Normocephalic Neck: Yes: WNL, Supple, Trachea Midline Cardiovascular: Yes: WNL, Regular Rate and Rhythm Respiratory: Yes: WNL, Regular, CTA Bilaterally Gastrointestinal: Yes: WNL, Normal Bowel Sounds Genitourinary: Yes: WNL Musculoskeletal: Yes: WNL Extremities: Yes: WNL Edema: No Integumentary: Yes: WNL Neurological: Yes: WNL, Alert, Oriented ...Motor Strength: WNL Psychiatric: Yes: WNL Labs: CBC, BMP 04/08/18 06:10 04/08/18 06:10 INR, PTT INR 1.39 (0.83-1.09) H 04/07/18 06:30 Assessment/Plan - Problems (1) CKD (chronic kidney disease) Code(s): N18.9 - CHRONIC KIDNEY DISEASE, UNSPECIFIED (2) Chronic lymphocytic leukemia Code(s): C91.90 - LYMPHOID LEUKEMIA, UNSPECIFIED NOT HAVING ACHIEVED REMISSION (3) SIRS (systemic inflammatory response syndrome) Code(s): R65.10 - SIRS OF NON-INFECTIOUS ORIGIN W/O ACUTE ORGAN DYSFUNCTION (4) Anxiety disorder Code(s): F41.9 - ANXIETY DISORDER, UNSPECIFIED (5) Choledocholithiasis Assessment/Plan: f/u with oncologist, GI. Code(s): K80.50 - CALCULUS OF BILE DUCT W/O CHOLANGITIS OR CHOLECYST W/O OBST (6) Diastolic CHF Assessment/Plan: BNP > 1,300 (double its level of several years ago) ECHO: normal LVEF; abnormal diastolic compliance; mlild MR and TR F/u BUN/Cr, electrolytes, daily wt, Is and Os. Code(s): I50.30 - UNSPECIFIED DIASTOLIC (CONGESTIVE) HEART FAILURE (7) Fever Code(s): R50.9 - FEVER, UNSPECIFIED (8) HTN (hypertension) Code(s): I10 - ESSENTIAL (PRIMARY) HYPERTENSION (9) Nephrolithiasis Code(s): N20.0 - CALCULUS OF KIDNEY (10) Thrombocytopenia Assessment/Plan: Platelet level remains low, but relatively stable. Code(s): D69.6 - THROMBOCYTOPENIA, UNSPECIFIED (11) Anemia Code(s): D64.9 - ANEMIA, UNSPECIFIED (12) PAD (peripheral artery disease) Code(s): I73.9 - PERIPHERAL VASCULAR DISEASE, UNSPECIFIED (13) Positive blood cultures Assessment/Plan: On Rocephin and Flagyl. F/u with ID. Code(s): R78.81 - BACTEREMIA
[2018-04-09] MEDS: INSULIN SLIDING SCALE (NOVOLOG) 1 VIAL SQ SCH ×4 (06:02→22:30)
--- NOTE | 2018-04-09 06:33 | PN ---
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, Physician Chief Complaint: OOB to chair in good spirits no c/o d/w pt tests and consults and plan to treat she agreed - Current Medication List Current Medications: Active Medications Acetaminophen (Tylenol -) 650 mg PO Q6H PRN PRN Reason: FEVER Allopurinol (Zyloprim -) 300 mg PO DAILY [facility] Last Admin: 04/08/18 12:26 Dose: 300 mg Amlodipine Besylate (Norvasc -) 2.5 mg PO DAILY [facility] Last Admin: 04/08/18 12:26 Dose: 2.5 mg Divalproex Sodium (Depakote Sprinkle Caps -) 125 mg PO BID [facility] Last Admin: 04/08/18 22:25 Dose: 125 mg Folic Acid (Folic Acid -) 1 mg PO DAILY [facility] Last Admin: 04/08/18 12:26 Dose: 1 mg Ceftriaxone Sodium 2 gm/ (Dextrose) 100 mls @ 200 mls/hr IVPB DAILY [facility]; Protocol Last Admin: 04/08/18 12:24 Dose: 200 mls/hr Metronidazole (Flagyl 500mg Premixed Ivpb -) 500 mg in 100 mls @ 100 mls/hr IVPB Q8H-IV [facility] Last Admin: 04/09/18 01:55 Dose: 100 mls/hr Insulin Aspart (Novolog Vial Sliding Scale -) 1 vial SQ ACHS [facility]; Protocol Last Admin: 04/09/18 06:02 Dose: Not Given Pantoprazole Sodium (Protonix -) 40 mg PO DAILY [facility] Last Admin: 04/08/18 12:25 Dose: 40 mg Prednisone (Deltasone -) 20 mg PO DAILY [facility] Last Admin: 04/08/18 12:25 Dose: 20 mg - Objective Vital Signs: Vital Signs Temperature 97.6 F 04/09/18 05:46 Pulse Rate 67 04/09/18 05:46 Respiratory Rate 20 04/09/18 05:46 Blood Pressure 133/68 04/09/18 05:46 O2 Sat by Pulse Oximetry (%) 96 04/08/18 21:00 Constitutional: Yes: No Distress Eyes: Yes: Conjunctiva Clear HENT: Yes: Atraumatic Neck: Yes: Supple Cardiovascular: Yes: Regular Rate and Rhythm Respiratory: Yes: CTA Bilaterally Gastrointestinal: Yes: Soft Genitourinary: No: CVA Tenderness - Left, CVA Tenderness - Right Musculoskeletal: No: Joint Stiffness, Joint Swelling Extremities: No: Cold, Cool, Cyanosis Edema: No Integumentary: No: Rash, Venous Stasis Changes Neurological: Yes: WNL, Alert, Oriented ...Motor Strength: WNL Psychiatric: Yes: WNL, Alert, Oriented. No: Agitated, Suicidal Ideation Labs: CBC, BMP 04/08/18 06:10 04/08/18 06:10 INR, PTT INR 1.39 (0.83-1.09) H 04/07/18 06:30 - ....Imaging Other: Report Reviewed Assessment/Plan 72yo F with PMH of CLL, HTN, CHF, choledocholithiasis presenting with fever and cough. UTI, PNA? sepsis IV antibiotics per ID; 1 set + blood cx ID added flagyl; possible renal abscess versus hemorrhagic cyst heme onc, ID f/u; noted; f/u CT in few days IV ATB /ID f/u labs and cultures s/p PLT and PRBC for low Hg and low PLT; might need transfusions again if blood counts drop falls decubs DVT pfx d/w pt do not get OOB alone, ask for help if needs OOB DVT Pfx ambulate and TEds SDC prognosis guarded d /w pt and staff
--- NOTE | 2018-04-09 09:42 | PN ---
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, Physician History of Present Illness: 72yo white woman with PMH of CLL, PAD (70% Lt iliac stenosis), hyperlipidemia, HTN, diastolic CHF, choledocholithiasis, now presenting with fever and cough. Patient was sent by her heme/onc specialist, Dr. Garcia. Patient's recent history is significant for recent hospital stay. She had cholodocholithiasis in late January which necessitated ERCP with sphinceterotomy at this hospital. Patient's hospital course was significant for GI bleed for which she was ultimately transferred to [facility]. Patient stayed there for two weeks and was discharged to [facility]. At [facility], she was found to have low hemoglobin for which she was sent to [facility] and transfused. Patient was discharged last night and saw Dr. Garcia today. Patient has no chest pain or shortness of breath - Current Medication List Current Medications: Active Medications Acetaminophen (Tylenol -) 650 mg PO Q6H PRN PRN Reason: FEVER Allopurinol (Zyloprim -) 300 mg PO DAILY [facility] Last Admin: 04/08/18 12:26 Dose: 300 mg Amlodipine Besylate (Norvasc -) 2.5 mg PO DAILY [facility] Last Admin: 04/08/18 12:26 Dose: 2.5 mg Divalproex Sodium (Depakote Sprinkle Caps -) 125 mg PO BID [facility] Last Admin: 04/08/18 22:25 Dose: 125 mg Folic Acid (Folic Acid -) 1 mg PO DAILY [facility] Last Admin: 04/08/18 12:26 Dose: 1 mg Ceftriaxone Sodium 2 gm/ (Dextrose) 100 mls @ 200 mls/hr IVPB DAILY [facility]; Protocol Last Admin: 04/08/18 12:24 Dose: 200 mls/hr Metronidazole (Flagyl 500mg Premixed Ivpb -) 500 mg in 100 mls @ 100 mls/hr IVPB Q8H-IV [facility] Last Admin: 04/09/18 01:55 Dose: 100 mls/hr Insulin Aspart (Novolog Vial Sliding Scale -) 1 vial SQ ACHS [facility]; Protocol Last Admin: 04/09/18 06:02 Dose: Not Given Pantoprazole Sodium (Protonix -) 40 mg PO DAILY [facility] Last Admin: 04/08/18 12:25 Dose: 40 mg Prednisone (Deltasone -) 20 mg PO DAILY [facility] Last Admin: 04/08/18 12:25 Dose: 20 mg - Objective Vital Signs: Vital Signs Temperature 97.6 F 04/09/18 05:46 Pulse Rate 67 04/09/18 05:46 Respiratory Rate 20 04/09/18 05:46 Blood Pressure 133/68 04/09/18 05:46 O2 Sat by Pulse Oximetry (%) 96 04/08/18 21:00 Eyes: Yes: WNL, Conjunctiva Clear, EOM Intact HENT: Yes: WNL, Atraumatic, Normocephalic Neck: Yes: WNL, Supple, Trachea Midline Cardiovascular: Yes: WNL, Regular Rate and Rhythm Respiratory: Yes: WNL, Regular, CTA Bilaterally Gastrointestinal: Yes: WNL, Normal Bowel Sounds Genitourinary: Yes: WNL Musculoskeletal: Yes: WNL Extremities: Yes: WNL Edema: No Integumentary: Yes: WNL Neurological: Yes: WNL, Alert, Oriented ...Motor Strength: WNL Psychiatric: Yes: WNL Labs: CBC, BMP 04/08/18 06:10 04/08/18 06:10 INR, PTT INR 1.39 (0.83-1.09) H 04/07/18 06:30 Assessment/Plan - Problems (1) CKD (chronic kidney disease) Code(s): N18.9 - CHRONIC KIDNEY DISEASE, UNSPECIFIED (2) Chronic lymphocytic leukemia Code(s): C91.90 - LYMPHOID LEUKEMIA, UNSPECIFIED NOT HAVING ACHIEVED REMISSION (3) SIRS (systemic inflammatory response syndrome) Code(s): R65.10 - SIRS OF NON-INFECTIOUS ORIGIN W/O ACUTE ORGAN DYSFUNCTION (4) Anxiety disorder Code(s): F41.9 - ANXIETY DISORDER, UNSPECIFIED (5) Choledocholithiasis Assessment/Plan: f/u with oncologist, GI. Code(s): K80.50 - CALCULUS OF BILE DUCT W/O CHOLANGITIS OR CHOLECYST W/O OBST (6) Diastolic CHF Assessment/Plan: BNP > 1,300 (double its level of several years ago) ECHO: normal LVEF; abnormal diastolic compliance; mlild MR and TR F/u BUN/Cr, electrolytes, daily wt, Is and Os. Code(s): I50.30 - UNSPECIFIED DIASTOLIC (CONGESTIVE) HEART FAILURE (7) Fever Code(s): R50.9 - FEVER, UNSPECIFIED (8) HTN (hypertension) Code(s): I10 - ESSENTIAL (PRIMARY) HYPERTENSION (9) Nephrolithiasis Code(s): N20.0 - CALCULUS OF KIDNEY (10) Thrombocytopenia Assessment/Plan: Platelet level remains low, but relatively stable. Code(s): D69.6 - THROMBOCYTOPENIA, UNSPECIFIED (11) Anemia Code(s): D64.9 - ANEMIA, UNSPECIFIED (12) PAD (peripheral artery disease) Code(s): I73.9 - PERIPHERAL VASCULAR DISEASE, UNSPECIFIED (13) Positive blood cultures Assessment/Plan: On Rocephin and Flagyl. F/u with ID. Code(s): R78.81 - BACTEREMIA
[2018-04-09] MEDS ORDERED: PT OWN MED DRAWER 7, Y5N ONE (11:08)
[2018-04-09] MEDS ORDERED: DEXTROSE 5%-WATER 100 ML IVPB ONE (11:08)
[2018-04-09] MEDS: FOLIC ACID 1 MG TABLET (FP) PO SCH (11:30)
[2018-04-09] MEDS: CEFTRIAXONE 2 GM in DEXTROSE 5%-WATER 100 ML IVPB SCH (11:31)
[2018-04-09] MEDS: PANTOPRAZOLE 40 MG TABLET (FP) PO SCH (11:31)
[2018-04-09] MEDS: amLODIPine BESYLATE 2.5 MG TABLET (FP) PO SCH (11:31)
[2018-04-09] MEDS: DIVALPROEX SODIUM 125 MG SPRINKLE CAPS PO SCH ×2 (11:31→22:30)
[2018-04-09] MEDS: ALLOPURINOL 300 MG TABLET (FP) PO SCH (11:37)
[2018-04-09] MEDS: predniSONE 20 MG TABLET (UD) PO SCH (11:37)
--- NOTE | 2018-04-09 16:10 | PN ---
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 (short form) - Note 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: no more fevers since admission denies cough feels well no flank pain 2 Vital Signs Period Temp Pulse Resp BP Sys/Borjas Pulse Ox Last 24 Hr 97.6 F-98.4 F 67-80 20-24 110-133/54-68 96 cor-rrr lungs clear abd soft,nt ext no edema CBC, BMP 04/08/18 06:10 04/08/18 06:10 Microbiology 04/07/18 18:25 Stool Salmonella/Shigella Culture - Preliminary NO ENTERIC PATHOGENS, 24 HOURS, ON PRIMARY PLATES 04/07/18 18:25 Stool Yersinia Culture - Preliminary NO ENTERIC PATHOGENS, 24 HOURS, ON PRIMARY PLATES 04/07/18 18:25 Stool Vibrio Culture - Final NO GROWTH OF VIBRIO SPECIES OBTAINED 04/07/18 18:25 Stool Escherichia coli 0157 Culture - Final NO GROWTH OF E COLI 0157 OBTAINED 04/04/18 16:00 Blood - Peripheral Venous Blood Culture - Preliminary NO GROWTH OBTAINED AFTER 96 HOURS, INCUBATION TO CONTINUE FOR 1 DAYS. 04/04/18 15:30 Blood - Peripheral Venous Blood Culture - Preliminary NO GROWTH OBTAINED AFTER 96 HOURS, INCUBATION TO CONTINUE FOR 1 DAYS. 04/07/18 18:25 Stool Clostridium difficile Antigen (ROSANGELA) - Final 04/07/18 18:25 Stool Clostridium difficile Toxin Assay - Final 03/31/18 19:10 Blood - Peripheral Venous Blood Culture - Final NO GROWTH AFTER 5 DAYS INCUBATION 03/31/18 18:40 Blood - Peripheral Venous Blood Culture - Final Fusobacterium Species 03/31/18 22:00 Urine - Urine Clean Catch Urine Culture - Final Klebsiella Pneumoniae Yeast Like Organism 04/02/18 11:30 Urine For Antigen Detection Legionella Antigen - Final 04/02/18 11:30 Urine For Antigen Detection Streptococcus pneumoniae Antigen (M - Final Current Medications Acetaminophen (Tylenol -) 650 mg PO Q6H PRN PRN Reason: FEVER Allopurinol (Zyloprim -) 300 mg PO DAILY [facility] Last Admin: 04/09/18 11:37 Dose: 300 mg Amlodipine Besylate (Norvasc -) 2.5 mg PO DAILY [facility] Last Admin: 04/09/18 11:31 Dose: 2.5 mg Divalproex Sodium (Depakote Sprinkle Caps -) 125 mg PO BID [facility] Last Admin: 04/09/18 11:31 Dose: 125 mg Folic Acid (Folic Acid -) 1 mg PO DAILY [facility] Last Admin: 04/09/18 11:30 Dose: 1 mg Ceftriaxone Sodium 2 gm/ (Dextrose) 100 mls @ 200 mls/hr IVPB DAILY [facility]; Protocol Last Admin: 04/09/18 11:31 Dose: 200 mls/hr Metronidazole (Flagyl 500mg Premixed Ivpb -) 500 mg in 100 mls @ 100 mls/hr IVPB Q8H-IV [facility] Last Admin: 04/09/18 11:36 Dose: 100 mls/hr Insulin Aspart (Novolog Vial Sliding Scale -) 1 vial SQ ACHS [facility]; Protocol Last Admin: 04/09/18 14:24 Dose: Not Given Pantoprazole Sodium (Protonix -) 40 mg PO DAILY [facility] Last Admin: 04/09/18 11:31 Dose: 40 mg Prednisone (Deltasone -) 20 mg PO DAILY [facility] Last Admin: 04/09/18 11:37 Dose: 20 mg a/p left kidney fluid collection 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 ?mild diverticulitis on ct scan UTI-klebsiella dementia CKD CLL on prednisone at this time continue ceftriaxone and flagyl- day #9 antibiotics urology noted reviewed plan for interval f/u ct scan Problem List - Problems (1) Fever Code(s): R50.9 - FEVER, UNSPECIFIED (2) Pneumonia Code(s): J18.9 - PNEUMONIA, UNSPECIFIED ORGANISM (3) UTI (urinary tract infection) Code(s): N39.0 - URINARY TRACT INFECTION, SITE NOT SPECIFIED (4) CKD (chronic kidney disease) Code(s): N18.9 - CHRONIC KIDNEY DISEASE, UNSPECIFIED (5) Chronic lymphocytic leukemia Code(s): C91.90 - LYMPHOID LEUKEMIA, UNSPECIFIED NOT HAVING ACHIEVED REMISSION
[2018-04-09] MEDS ORDERED: INSULIN (NOVOLOG) ASPART 100 UNITS/ML 10ML VIAL ONE (20:29)
--- NOTE | 2018-04-09 22:28 | PN ---
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, Physician Chief Complaint: Doing well. Eating lunch with family at bedside. Denies chest pain, SOB. No complaints. - Current Medication List Current Medications: Active Medications Acetaminophen (Tylenol -) 650 mg PO Q6H PRN PRN Reason: FEVER Allopurinol (Zyloprim -) 300 mg PO DAILY [facility] Last Admin: 04/09/18 11:37 Dose: 300 mg Amlodipine Besylate (Norvasc -) 2.5 mg PO DAILY [facility] Last Admin: 04/09/18 11:31 Dose: 2.5 mg Divalproex Sodium (Depakote Sprinkle Caps -) 125 mg PO BID [facility] Last Admin: 04/09/18 11:31 Dose: 125 mg Folic Acid (Folic Acid -) 1 mg PO DAILY [facility] Last Admin: 04/09/18 11:30 Dose: 1 mg Ceftriaxone Sodium 2 gm/ (Dextrose) 100 mls @ 200 mls/hr IVPB DAILY [facility]; Protocol Last Admin: 04/09/18 11:31 Dose: 200 mls/hr Metronidazole (Flagyl 500mg Premixed Ivpb -) 500 mg in 100 mls @ 100 mls/hr IVPB Q8H-IV [facility] Last Admin: 04/09/18 18:45 Dose: 100 mls/hr Insulin Aspart (Novolog Vial Sliding Scale -) 1 vial SQ ACHS [facility]; Protocol Last Admin: 04/09/18 16:51 Dose: 4 unit Pantoprazole Sodium (Protonix -) 40 mg PO DAILY [facility] Last Admin: 04/09/18 11:31 Dose: 40 mg Prednisone (Deltasone -) 20 mg PO DAILY [facility] Last Admin: 04/09/18 11:37 Dose: 20 mg - Objective Vital Signs: Vital Signs Temperature 98.3 F 04/09/18 17:58 Pulse Rate 73 04/09/18 17:58 Respiratory Rate 20 04/09/18 17:58 Blood Pressure 122/72 04/09/18 17:58 O2 Sat by Pulse Oximetry (%) 96 04/08/18 21:00 Constitutional: Yes: No Distress, Calm Cardiovascular: Yes: Regular Rate and Rhythm Respiratory: Yes: Regular, CTA Bilaterally Extremities: Yes: WNL Edema: No Labs: CBC, BMP 04/08/18 06:10 04/08/18 06:10 INR, PTT INR 1.39 (0.83-1.09) H 04/07/18 06:30 Assessment/Plan 72F with recently diagnosed CLL/SLL, recent CBD stones s/p ERCP sphincterotomy complicated by arterial bleed - now admitted with fever, found to have klebsiella UTI and fusobacterium bacteremia. On Abx and doing better. Please continue monitoring daily CBC, retics given recent bleed and slowly downtrending Hgb
--- NOTE | 2018-04-10 06:06 | PN ---
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, Physician Chief Complaint: dw pt she needs to have repeat Abd Pelvic CT no IVC for f/u renal fluid collection; ordered but pt refused; dw pt indications again - Current Medication List Current Medications: Active Medications Acetaminophen (Tylenol -) 650 mg PO Q6H PRN PRN Reason: FEVER Allopurinol (Zyloprim -) 300 mg PO DAILY [facility] Last Admin: 04/09/18 11:37 Dose: 300 mg Amlodipine Besylate (Norvasc -) 2.5 mg PO DAILY [facility] Last Admin: 04/09/18 11:31 Dose: 2.5 mg Divalproex Sodium (Depakote Sprinkle Caps -) 125 mg PO BID [facility] Last Admin: 04/09/18 22:30 Dose: 125 mg Folic Acid (Folic Acid -) 1 mg PO DAILY [facility] Last Admin: 04/09/18 11:30 Dose: 1 mg Ceftriaxone Sodium 2 gm/ (Dextrose) 100 mls @ 200 mls/hr IVPB DAILY [facility]; Protocol Last Admin: 04/09/18 11:31 Dose: 200 mls/hr Metronidazole (Flagyl 500mg Premixed Ivpb -) 500 mg in 100 mls @ 100 mls/hr IVPB Q8H-IV [facility] Last Admin: 04/10/18 03:28 Dose: Not Given Insulin Aspart (Novolog Vial Sliding Scale -) 1 vial SQ ACHS [facility]; Protocol Last Admin: 04/09/18 22:30 Dose: 4 unit Pantoprazole Sodium (Protonix -) 40 mg PO DAILY [facility] Last Admin: 04/09/18 11:31 Dose: 40 mg Prednisone (Deltasone -) 20 mg PO DAILY [facility] Last Admin: 04/09/18 11:37 Dose: 20 mg - Objective Vital Signs: Vital Signs Temperature 97.9 F 04/10/18 06:03 Pulse Rate 70 04/10/18 06:03 Respiratory Rate 18 04/10/18 06:03 Blood Pressure 123/66 04/10/18 06:03 O2 Sat by Pulse Oximetry (%) 99 04/09/18 21:00 Constitutional: Yes: No Distress Eyes: Yes: Conjunctiva Clear HENT: Yes: Atraumatic Neck: Yes: Supple Cardiovascular: Yes: Regular Rate and Rhythm Respiratory: Yes: CTA Bilaterally Gastrointestinal: Yes: Soft Genitourinary: No: CVA Tenderness - Left, CVA Tenderness - Right Musculoskeletal: No: Joint Stiffness, Joint Swelling Extremities: No: Cold, Cool, Cyanosis Edema: No Integumentary: Yes: Bruising. No: Rash, Venous Stasis Changes Neurological: Yes: WNL, Alert, Oriented ...Motor Strength: WNL Psychiatric: Yes: WNL, Alert, Oriented. No: Agitated, Suicidal Ideation Labs: CBC, BMP 04/08/18 06:10 04/08/18 06:10 INR, PTT INR 1.39 (0.83-1.09) H 04/07/18 06:30 - ....Imaging Other: Report Reviewed Assessment/Plan 72yo F with PMH of CLL, HTN, CHF, choledocholithiasis presenting with fever and cough. UTI, PNA? sepsis IV antibiotics per ID; 1 set + blood cx ID added flagyl; possible renal abscess versus hemorrhagic cyst heme onc, ID f/u; noted; repeat abdomen CT now if pt agrees IV ATB /ID f/u labs and cultures s/p PLT and PRBC for low Hg and low PLT; might need transfusions again if blood counts drop falls decubs DVT pfx d/w pt do not get OOB alone, ask for help if needs OOB DVT Pfx ambulate and TEds SDC prognosis guarded d /w pt and staff
[2018-04-10] MEDS: INSULIN SLIDING SCALE (NOVOLOG) 1 VIAL SQ SCH ×4 (06:59→22:49)
[2018-04-10 08:33] LABS: BASO % 2.1 % (0-2.0); EOS % 0.2 % (0-4.5); HEMOGLOBIN 8.7 GM/dL (10.7-15.3); LYMPH % 36.7 % (8-40); MCH 27.5 pg (25.7-33.7); MCHC 32.3 g/dl (32.0-36.0); MEAN CELL VOLUME 85.1 fl (80-96); MEAN PLT VOLUME 8.4 fl (7.5-11.1); MONO % 1.3 % (3.8-10.2); NEUT % 59.7 % (42.8-82.8); PLATELET COUNT 81 K/MM3 (134-434); RBC 3.17 M/mm3 (3.60-5.2); RDW 15.4 % (11.6-15.6)
[2018-04-10 09:11] LABS: ALBUMIN 2.4 g/dl (3.4-5.0); ALK PHOS 62 U/L (45-117); ANION GAP 5 MMOL/L (8-16); BILIRUBIN,TOTAL 0.5 mg/dL (0.2-1); BLOOD UREA NITROGEN 37 mg/dL (7-18); CALCIUM 8.9 mg/dL (8.5-10.1); CHLORIDE 105 mmol/L (98-107); CO2 31 mmol/L (21-32); CREATININE 0.9 mg/dL (0.55-1.3); GLUCOSE,RANDOM 89 mg/dL (74-106); POTASSIUM 4.4 mmol/L (3.5-5.1); SGOT/AST 14 U/L (15-37); SGPT/ALT 26 U/L (13-61); SODIUM 142 mmol/L (136-145); TOT PROT 5.4 g/dl (6.4-8.2)
--- NOTE | 2018-04-10 09:22 | PN ---
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, Physician History of Present Illness: 72yo white woman with PMH of CLL, PAD (70% Lt iliac stenosis), hyperlipidemia, HTN, diastolic CHF, choledocholithiasis, now presenting with fever and cough. Patient was sent by her heme/onc specialist, Dr. Garcia. Patient's recent history is significant for recent hospital stay. She had cholodocholithiasis in late January which necessitated ERCP with sphinceterotomy at this hospital. Patient's hospital course was significant for GI bleed for which she was ultimately transferred to [facility]. Patient stayed there for two weeks and was discharged to [facility]. At [facility], she was found to have low hemoglobin for which she was sent to [facility] and transfused. Patient was discharged last night and saw Dr. Garcia today. Patient has no chest pain or shortness of breath - Current Medication List Current Medications: Active Medications Acetaminophen (Tylenol -) 650 mg PO Q6H PRN PRN Reason: FEVER Allopurinol (Zyloprim -) 300 mg PO DAILY [facility] Last Admin: 04/09/18 11:37 Dose: 300 mg Amlodipine Besylate (Norvasc -) 2.5 mg PO DAILY [facility] Last Admin: 04/09/18 11:31 Dose: 2.5 mg Divalproex Sodium (Depakote Sprinkle Caps -) 125 mg PO BID [facility] Last Admin: 04/09/18 22:30 Dose: 125 mg Folic Acid (Folic Acid -) 1 mg PO DAILY [facility] Last Admin: 04/09/18 11:30 Dose: 1 mg Ceftriaxone Sodium 2 gm/ (Dextrose) 100 mls @ 200 mls/hr IVPB DAILY [facility]; Protocol Last Admin: 04/09/18 11:31 Dose: 200 mls/hr Metronidazole (Flagyl 500mg Premixed Ivpb -) 500 mg in 100 mls @ 100 mls/hr IVPB Q8H-IV [facility] Last Admin: 04/10/18 03:28 Dose: Not Given Insulin Aspart (Novolog Vial Sliding Scale -) 1 vial SQ ACHS [facility]; Protocol Last Admin: 04/10/18 06:59 Dose: Not Given Pantoprazole Sodium (Protonix -) 40 mg PO DAILY [facility] Last Admin: 04/09/18 11:31 Dose: 40 mg Prednisone (Deltasone -) 20 mg PO DAILY [facility] Last Admin: 04/09/18 11:37 Dose: 20 mg - Objective Vital Signs: Vital Signs Temperature 97.9 F 04/10/18 06:03 Pulse Rate 70 04/10/18 06:03 Respiratory Rate 18 04/10/18 06:03 Blood Pressure 123/66 04/10/18 06:03 O2 Sat by Pulse Oximetry (%) 99 04/09/18 21:00 Eyes: Yes: WNL, Conjunctiva Clear, EOM Intact HENT: Yes: WNL, Atraumatic, Normocephalic Neck: Yes: WNL, Supple, Trachea Midline Cardiovascular: Yes: WNL, Regular Rate and Rhythm Respiratory: Yes: WNL, Regular, CTA Bilaterally Gastrointestinal: Yes: WNL, Normal Bowel Sounds Genitourinary: Yes: WNL Musculoskeletal: Yes: WNL Extremities: Yes: WNL Edema: No Integumentary: Yes: WNL Neurological: Yes: WNL, Alert, Oriented ...Motor Strength: WNL Psychiatric: Yes: WNL Labs: CBC, BMP 04/10/18 07:00 04/10/18 07:00 INR, PTT INR 1.39 (0.83-1.09) H 04/07/18 06:30 Assessment/Plan - Problems (1) CKD (chronic kidney disease) Code(s): N18.9 - CHRONIC KIDNEY DISEASE, UNSPECIFIED (2) Chronic lymphocytic leukemia Code(s): C91.90 - LYMPHOID LEUKEMIA, UNSPECIFIED NOT HAVING ACHIEVED REMISSION (3) SIRS (systemic inflammatory response syndrome) Code(s): R65.10 - SIRS OF NON-INFECTIOUS ORIGIN W/O ACUTE ORGAN DYSFUNCTION (4) Anxiety disorder Code(s): F41.9 - ANXIETY DISORDER, UNSPECIFIED (5) Choledocholithiasis Assessment/Plan: f/u with oncologist, GI. Code(s): K80.50 - CALCULUS OF BILE DUCT W/O CHOLANGITIS OR CHOLECYST W/O OBST (6) Diastolic CHF Assessment/Plan: BNP > 1,300 (double its level of several years ago) ECHO: normal LVEF; abnormal diastolic compliance; mlild MR and TR F/u BUN/Cr, electrolytes, daily wt, Is and Os. Code(s): I50.30 - UNSPECIFIED DIASTOLIC (CONGESTIVE) HEART FAILURE (7) Fever Code(s): R50.9 - FEVER, UNSPECIFIED (8) HTN (hypertension) Code(s): I10 - ESSENTIAL (PRIMARY) HYPERTENSION (9) Nephrolithiasis Code(s): N20.0 - CALCULUS OF KIDNEY (10) Thrombocytopenia Assessment/Plan: Platelet level remains low, but relatively stable. Code(s): D69.6 - THROMBOCYTOPENIA, UNSPECIFIED (11) Anemia Code(s): D64.9 - ANEMIA, UNSPECIFIED (12) PAD (peripheral artery disease) Code(s): I73.9 - PERIPHERAL VASCULAR DISEASE, UNSPECIFIED (13) Positive blood cultures Assessment/Plan: On Rocephin and Flagyl. F/u with ID. Code(s): R78.81 - BACTEREMIA
[2018-04-10 09:55] LABS: ANISOCYTOSIS 1+; MACROCYTOSIS 1+; PLATELET ESTIMATE DECREASED
[2018-04-10] MEDS ORDERED: DEXTROSE 5%-WATER 100 ML IVPB ONE (11:00)
[2018-04-10] MEDS ORDERED: PT OWN MED DRAWER 7, Y5N ONE ×2 (11:00→20:37)
[2018-04-10] MEDS: predniSONE 20 MG TABLET (UD) PO SCH (11:08)
[2018-04-10] MEDS: PANTOPRAZOLE 40 MG TABLET (FP) PO SCH (11:08)
[2018-04-10] MEDS: DIVALPROEX SODIUM 125 MG SPRINKLE CAPS PO SCH ×2 (11:08→22:48)
[2018-04-10] MEDS: amLODIPine BESYLATE 2.5 MG TABLET (FP) PO SCH (11:08)
[2018-04-10] MEDS: ALLOPURINOL 300 MG TABLET (FP) PO SCH (11:08)
[2018-04-10] MEDS: FOLIC ACID 1 MG TABLET (FP) PO SCH (11:08)
[2018-04-10] MEDS: CEFTRIAXONE 2 GM in DEXTROSE 5%-WATER 100 ML IVPB SCH (12:30)
--- NOTE | 2018-04-10 19:14 | PN ---
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, Physician Chief Complaint: Doing well. No complaints. No overnight events. - Current Medication List Current Medications: Active Medications Acetaminophen (Tylenol -) 650 mg PO Q6H PRN PRN Reason: FEVER Allopurinol (Zyloprim -) 300 mg PO DAILY [facility] Last Admin: 04/10/18 11:08 Dose: 300 mg Amlodipine Besylate (Norvasc -) 2.5 mg PO DAILY [facility] Last Admin: 04/10/18 11:08 Dose: 2.5 mg Divalproex Sodium (Depakote Sprinkle Caps -) 125 mg PO BID [facility] Last Admin: 04/10/18 11:08 Dose: 125 mg Folic Acid (Folic Acid -) 1 mg PO DAILY [facility] Last Admin: 04/10/18 11:08 Dose: 1 mg Ceftriaxone Sodium 2 gm/ (Dextrose) 100 mls @ 200 mls/hr IVPB DAILY [facility]; Protocol Last Admin: 04/10/18 12:30 Dose: 200 mls/hr Metronidazole (Flagyl 500mg Premixed Ivpb -) 500 mg in 100 mls @ 100 mls/hr IVPB Q8H-IV [facility] Last Admin: 04/10/18 17:41 Dose: Not Given Insulin Aspart (Novolog Vial Sliding Scale -) 1 vial SQ ACHS [facility]; Protocol Last Admin: 04/10/18 17:13 Dose: 2 unit Pantoprazole Sodium (Protonix -) 40 mg PO DAILY [facility] Last Admin: 04/10/18 11:08 Dose: 40 mg Prednisone (Deltasone -) 20 mg PO DAILY [facility] Last Admin: 04/10/18 11:08 Dose: 20 mg - Objective Vital Signs: Vital Signs Temperature 97.9 F 04/10/18 17:37 Pulse Rate 78 04/10/18 17:37 Respiratory Rate 20 04/10/18 17:37 Blood Pressure 129/63 04/10/18 17:37 O2 Sat by Pulse Oximetry (%) 99 04/10/18 11:00 Constitutional: Yes: No Distress, Calm Neck: Yes: Supple Cardiovascular: Yes: Regular Rate and Rhythm Respiratory: Yes: Regular, CTA Bilaterally Gastrointestinal: Yes: WNL, Soft Edema: No Labs: CBC, BMP 04/10/18 07:00 04/10/18 07:00 INR, PTT INR 1.39 (0.83-1.09) H 04/07/18 06:30 Assessment/Plan 72F with recently diagnosed CLL/SLL, recent CBD stones s/p ERCP sphincterotomy complicated by arterial bleed - now admitted with fever, found to have klebsiella UTI and fusobacterium bacteremia. On Abx and doing better. Hgb stable
[2018-04-10] MEDS ORDERED: INSULIN (NOVOLOG) ASPART 100 UNITS/ML 10ML VIAL ONE (20:37)
--- NOTE | 2018-04-11 06:46 | PN ---
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, Physician Chief Complaint: in bed NAD no new c/o; pulled again few IVs out of her arms; pt. refused to repeat abdomen CT to f/u renal fluid collection, d/w pt indications risks alternatives and consequences; will call pt's daughter Dayana too; pt said she feels good and she wants to go home. - Current Medication List Current Medications: Active Medications Acetaminophen (Tylenol -) 650 mg PO Q6H PRN PRN Reason: FEVER Allopurinol (Zyloprim -) 300 mg PO DAILY [facility] Last Admin: 04/10/18 11:08 Dose: 300 mg Amlodipine Besylate (Norvasc -) 2.5 mg PO DAILY [facility] Last Admin: 04/10/18 11:08 Dose: 2.5 mg Divalproex Sodium (Depakote Sprinkle Caps -) 125 mg PO BID [facility] Last Admin: 04/10/18 22:48 Dose: 125 mg Folic Acid (Folic Acid -) 1 mg PO DAILY [facility] Last Admin: 04/10/18 11:08 Dose: 1 mg Ceftriaxone Sodium 2 gm/ (Dextrose) 100 mls @ 200 mls/hr IVPB DAILY [facility]; Protocol Last Admin: 04/10/18 12:30 Dose: 200 mls/hr Metronidazole (Flagyl 500mg Premixed Ivpb -) 500 mg in 100 mls @ 100 mls/hr IVPB Q8H-IV [facility] Last Admin: 04/11/18 03:08 Dose: Not Given Insulin Aspart (Novolog Vial Sliding Scale -) 1 vial SQ ACHS [facility]; Protocol Last Admin: 04/10/18 22:49 Dose: Not Given Pantoprazole Sodium (Protonix -) 40 mg PO DAILY [facility] Last Admin: 04/10/18 11:08 Dose: 40 mg Prednisone (Deltasone -) 20 mg PO DAILY [facility] Last Admin: 04/10/18 11:08 Dose: 20 mg - Objective Vital Signs: Vital Signs Temperature 98.1 F 04/11/18 05:34 Pulse Rate 74 04/11/18 05:34 Respiratory Rate 18 04/11/18 05:34 Blood Pressure 129/71 04/11/18 05:34 O2 Sat by Pulse Oximetry (%) 99 04/10/18 21:00 Constitutional: Yes: No Distress, Calm Eyes: Yes: Conjunctiva Clear HENT: Yes: Atraumatic Neck: Yes: Supple Cardiovascular: Yes: Regular Rate and Rhythm Respiratory: Yes: CTA Bilaterally Gastrointestinal: Yes: Soft. No: Tenderness Genitourinary: No: CVA Tenderness - Left, CVA Tenderness - Right Musculoskeletal: No: Joint Stiffness, Joint Swelling Extremities: No: Cold, Cool, Cyanosis Edema: No Integumentary: No: Rash, Venous Stasis Changes Neurological: Yes: WNL, Alert, Oriented ...Motor Strength: WNL Psychiatric: Yes: WNL, Alert, Oriented. No: Agitated, Suicidal Ideation Labs: CBC, BMP 04/10/18 07:00 04/10/18 07:00 INR, PTT INR 1.39 (0.83-1.09) H 04/07/18 06:30 - ....Imaging Other: Report Reviewed Assessment/Plan 72yo F with PMH of CLL, HTN, CHF, choledocholithiasis presenting with fever and cough. UTI, PNA? sepsis IV antibiotics per ID; 1 set + blood cx ID added flagyl; possible renal abscess versus hemorrhagic cyst heme onc, ID f/u; noted; repeat abdomen CT now if pt agrees po ATB /ID d/w dr Schulte; f/u labs and cultures s/p PLT and PRBC for low Hg and low PLT; might need transfusions again if blood counts drop falls decubs DVT pfx d/w pt do not get OOB alone, ask for help if needs OOB DVT Pfx ambulate and TEds SDC prognosis guarded d /w pt and staff will call pt's daughter.
[2018-04-11] MEDS: INSULIN SLIDING SCALE (NOVOLOG) 1 VIAL SQ SCH ×4 (06:52→21:25)
[2018-04-11] MEDS ORDERED: INSULIN (NOVOLOG) ASPART 100 UNITS/ML 10ML VIAL ONE (06:55)
[2018-04-11 07:03] LABS: BASO % 1.2 % (0-2.0); EOS % 0.6 % (0-4.5); HEMATOCRIT 28.1 % (32.4-45.2); MCH 27.3 pg (25.7-33.7); MCHC 32.2 g/dl (32.0-36.0); MEAN PLT VOLUME 8.3 fl (7.5-11.1); MONO % 1.3 % (3.8-10.2); NEUT % 40.9 % (42.8-82.8); PLATELET COUNT 86 K/MM3 (134-434); RBC 3.31 M/mm3 (3.60-5.2); RDW 15.5 % (11.6-15.6); WHITE BLOOD COUNT 3.2 K/mm3 (4.0-10.0)
[2018-04-11 08:04] LABS: ALBUMIN 2.5 g/dl (3.4-5.0); ALK PHOS 60 U/L (45-117); ANION GAP 5 MMOL/L (8-16); BILIRUBIN,TOTAL 0.4 mg/dL (0.2-1); BLOOD UREA NITROGEN 29 mg/dL (7-18); CALCIUM 9.4 mg/dL (8.5-10.1); CHLORIDE 106 mmol/L (98-107); CO2 31 mmol/L (21-32); CREATININE 0.9 mg/dL (0.55-1.3); GLUCOSE,RANDOM 86 mg/dL (74-106); POTASSIUM 4.5 mmol/L (3.5-5.1); SGOT/AST 15 U/L (15-37); SGPT/ALT 21 U/L (13-61); SODIUM 142 mmol/L (136-145); TOT PROT 5.6 g/dl (6.4-8.2)
[2018-04-11] MEDS ORDERED: metroNIDAZOLE 250 MG TABLET PO SCH (09:06)
--- NOTE | 2018-04-11 09:45 | PN ---
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 (short form) - Note 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: no more fevers since admission refusing f/u ct scan refusing ivs, pulling them out Vital Signs Period Temp Pulse Resp BP Sys/Borjas Pulse Ox Last 24 Hr 97.9 F-98.3 F 72-81 18-20 122-130/58-71 99-99 cor-rrr lungs clear abd soft, nt ext no edema CBC, BMP 04/11/18 06:00 04/11/18 06:00 Microbiology 04/07/18 18:25 Stool Salmonella/Shigella Culture - Final NO GROWTH OF SALMONELLA OR SHIGELLA SPECIES OBTAINED 04/07/18 18:25 Stool Campylobacter Culture - Final NO GROWTH OF CAMPYLOBACTER SPECIES OBTAINED 04/07/18 18:25 Stool Yersinia Culture - Final NO GROWTH OF YERSINIA SPECIES OBTAINED 04/07/18 18:25 Stool Vibrio Culture - Final NO GROWTH OF VIBRIO SPECIES OBTAINED 04/07/18 18:25 Stool Escherichia coli 0157 Culture - Final NO GROWTH OF E COLI 0157 OBTAINED 04/04/18 16:00 Blood - Peripheral Venous Blood Culture - Final NO GROWTH AFTER 5 DAYS INCUBATION 04/04/18 15:30 Blood - Peripheral Venous Blood Culture - Final NO GROWTH AFTER 5 DAYS INCUBATION 04/07/18 18:25 Stool Clostridium difficile Antigen (ROSANGELA) - Final 04/07/18 18:25 Stool Clostridium difficile Toxin Assay - Final 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 ?mild diverticulitis on ct scan UTI-klebsiella dementia CKD CLL on prednisone at this time day #11 antibiotics no iv access will switch to po augmentin for another week d/w dr herrera ideally should have repeat ct scan to evaluated kidney collection but patient is refusing overall prognosis is poor patient continues to intermittently refuse care please call back if we can be of further assistance Problem List - Problems (1) Fever Code(s): R50.9 - FEVER, UNSPECIFIED (2) Pneumonia Code(s): J18.9 - PNEUMONIA, UNSPECIFIED ORGANISM (3) UTI (urinary tract infection) Code(s): N39.0 - URINARY TRACT INFECTION, SITE NOT SPECIFIED (4) CKD (chronic kidney disease) Code(s): N18.9 - CHRONIC KIDNEY DISEASE, UNSPECIFIED (5) Chronic lymphocytic leukemia Code(s): C91.90 - LYMPHOID LEUKEMIA, UNSPECIFIED NOT HAVING ACHIEVED REMISSION
[2018-04-11 09:54] LABS: ANISOCYTOSIS 2+; MACROCYTOSIS 0; PLATELET ESTIMATE DECREASED; TEAR DROP CELLS 1+
[2018-04-11] MEDS: predniSONE 20 MG TABLET (UD) PO SCH (10:52)
[2018-04-11] MEDS: amLODIPine BESYLATE 2.5 MG TABLET (FP) PO SCH (10:52)
[2018-04-11] MEDS: ALLOPURINOL 300 MG TABLET (FP) PO SCH (10:52)
[2018-04-11] MEDS: DIVALPROEX SODIUM 125 MG SPRINKLE CAPS PO SCH ×2 (10:52→21:25)
[2018-04-11] MEDS: PANTOPRAZOLE 40 MG TABLET (FP) PO SCH (10:52)
[2018-04-11] MEDS: FOLIC ACID 1 MG TABLET (FP) PO SCH (10:52)
--- NOTE | 2018-04-11 14:46 | PN ---
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, Physician History of Present Illness: 72yo white woman with PMH of CLL, PAD (70% Lt iliac stenosis), hyperlipidemia, HTN, diastolic CHF, choledocholithiasis, now presenting with fever and cough. Patient was sent by her heme/onc specialist, Dr. Garcia. Patient's recent history is significant for recent hospital stay. She had cholodocholithiasis in late January which necessitated ERCP with sphinceterotomy at this hospital. Patient's hospital course was significant for GI bleed for which she was ultimately transferred to [facility]. Patient stayed there for two weeks and was discharged to [facility]. At [facility], she was found to have low hemoglobin for which she was sent to [facility] and transfused. Patient was discharged last night and saw Dr. Garcia today. Patient has no chest pain or shortness of breath - Current Medication List Current Medications: Active Medications Acetaminophen (Tylenol -) 650 mg PO Q6H PRN PRN Reason: FEVER Allopurinol (Zyloprim -) 300 mg PO DAILY [facility] Last Admin: 04/11/18 10:52 Dose: 300 mg Amlodipine Besylate (Norvasc -) 2.5 mg PO DAILY [facility] Last Admin: 04/11/18 10:52 Dose: 2.5 mg Amoxicillin/Clavulanate Potassium (Augmentin - 875mg Tablet) 1 tab PO BID@0800, 1730 [facility] Divalproex Sodium (Depakote Sprinkle Caps -) 125 mg PO BID [facility] Last Admin: 04/11/18 10:52 Dose: 125 mg Folic Acid (Folic Acid -) 1 mg PO DAILY [facility] Last Admin: 04/11/18 10:52 Dose: 1 mg Insulin Aspart (Novolog Vial Sliding Scale -) 1 vial SQ [facility]; Protocol Last Admin: 04/11/18 06:52 Dose: Not Given Pantoprazole Sodium (Protonix -) 40 mg PO DAILY [facility] Last Admin: 04/11/18 10:52 Dose: 40 mg Prednisone (Deltasone -) 20 mg PO DAILY [facility] Last Admin: 04/11/18 10:52 Dose: 20 mg - Objective Vital Signs: Vital Signs Temperature 98.1 F 04/11/18 05:34 Pulse Rate 74 04/11/18 05:34 Respiratory Rate 18 04/11/18 05:34 Blood Pressure 129/71 04/11/18 05:34 O2 Sat by Pulse Oximetry (%) 99 04/10/18 21:00 Eyes: Yes: WNL, Conjunctiva Clear, EOM Intact HENT: Yes: WNL, Atraumatic, Normocephalic Neck: Yes: WNL, Supple, Trachea Midline Cardiovascular: Yes: WNL, Regular Rate and Rhythm Respiratory: Yes: WNL, Regular, CTA Bilaterally Gastrointestinal: Yes: WNL, Normal Bowel Sounds Genitourinary: Yes: WNL Musculoskeletal: Yes: WNL Extremities: Yes: WNL Edema: No Integumentary: Yes: WNL Neurological: Yes: WNL, Alert, Oriented ...Motor Strength: WNL Psychiatric: Yes: WNL Labs: CBC, BMP 04/11/18 06:00 04/11/18 06:00 INR, PTT INR 1.39 (0.83-1.09) H 04/07/18 06:30 Assessment/Plan - Problems (1) CKD (chronic kidney disease) Code(s): N18.9 - CHRONIC KIDNEY DISEASE, UNSPECIFIED (2) Chronic lymphocytic leukemia Code(s): C91.90 - LYMPHOID LEUKEMIA, UNSPECIFIED NOT HAVING ACHIEVED REMISSION (3) SIRS (systemic inflammatory response syndrome) Code(s): R65.10 - SIRS OF NON-INFECTIOUS ORIGIN W/O ACUTE ORGAN DYSFUNCTION (4) Anxiety disorder Code(s): F41.9 - ANXIETY DISORDER, UNSPECIFIED (5) Choledocholithiasis Assessment/Plan: f/u with oncologist, GI. Code(s): K80.50 - CALCULUS OF BILE DUCT W/O CHOLANGITIS OR CHOLECYST W/O OBST (6) Diastolic CHF Assessment/Plan: BNP > 1,300 (double its level of several years ago) ECHO: normal LVEF; abnormal diastolic compliance; mlild MR and TR F/u BUN/Cr, electrolytes, daily wt, Is and Os. Code(s): I50.30 - UNSPECIFIED DIASTOLIC (CONGESTIVE) HEART FAILURE (7) Fever Code(s): R50.9 - FEVER, UNSPECIFIED (8) HTN (hypertension) Code(s): I10 - ESSENTIAL (PRIMARY) HYPERTENSION (9) Nephrolithiasis Code(s): N20.0 - CALCULUS OF KIDNEY (10) Thrombocytopenia Assessment/Plan: Platelet level remains low, but relatively stable. Code(s): D69.6 - THROMBOCYTOPENIA, UNSPECIFIED (11) Anemia Code(s): D64.9 - ANEMIA, UNSPECIFIED (12) PAD (peripheral artery disease) Code(s): I73.9 - PERIPHERAL VASCULAR DISEASE, UNSPECIFIED (13) Positive blood cultures Assessment/Plan: On Rocephin and Flagyl. F/u with ID. Code(s): R78.81 - BACTEREMIA
[2018-04-11] MEDS: AMOX TR/POT CLAV 875MG/125MG TABLETS (FP) PO SCH (18:43)
[2018-04-12] MEDS: INSULIN SLIDING SCALE (NOVOLOG) 1 VIAL SQ SCH ×4 (06:05→22:11)
[2018-04-12 07:07] LABS: BASO % 2.2 % (0-2.0); EOS % 0.3 % (0-4.5); HEMATOCRIT 25.8 % (32.4-45.2); HEMOGLOBIN 8.3 GM/dL (10.7-15.3); LYMPH % 58.5 % (8-40); MCH 27.4 pg (25.7-33.7); MCHC 32.3 g/dl (32.0-36.0); MEAN CELL VOLUME 84.9 fl (80-96); MEAN PLT VOLUME 7.7 fl (7.5-11.1); MONO % 1.4 % (3.8-10.2); NEUT % 37.6 % (42.8-82.8); PLATELET COUNT 82 K/MM3 (134-434); RBC 3.04 M/mm3 (3.60-5.2); RDW 15.7 % (11.6-15.6); WHITE BLOOD COUNT 3.2 K/mm3 (4.0-10.0)
[2018-04-12 07:44] LABS: ALBUMIN 2.4 g/dl (3.4-5.0); ALK PHOS 56 U/L (45-117); ANION GAP 4 MMOL/L (8-16); BILIRUBIN,TOTAL 0.6 mg/dL (0.2-1); BLOOD UREA NITROGEN 31 mg/dL (7-18); CALCIUM 8.8 mg/dL (8.5-10.1); CHLORIDE 101 mmol/L (98-107); CO2 34 mmol/L (21-32); CREATININE 0.8 mg/dL (0.55-1.3); GLUCOSE,RANDOM 84 mg/dL (74-106); POTASSIUM 4.4 mmol/L (3.5-5.1); SGOT/AST 12 U/L (15-37); SGPT/ALT 23 U/L (13-61); SODIUM 139 mmol/L (136-145); TOT PROT 5.4 g/dl (6.4-8.2)
[2018-04-12] MEDS ORDERED: PT OWN MED DRAWER 7, Y5N ONE ×2 (07:48→21:08)
--- NOTE | 2018-04-12 09:32 | PN ---
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, Physician Chief Complaint: no new c/o repeat Abd Pelvic CT done results pending - Current Medication List Current Medications: Active Medications Acetaminophen (Tylenol -) 650 mg PO Q6H PRN PRN Reason: FEVER Allopurinol (Zyloprim -) 300 mg PO DAILY [facility] Last Admin: 04/11/18 10:52 Dose: 300 mg Amlodipine Besylate (Norvasc -) 2.5 mg PO DAILY [facility] Last Admin: 04/11/18 10:52 Dose: 2.5 mg Amoxicillin/Clavulanate Potassium (Augmentin - 875mg Tablet) 1 tab PO BID@0800, 1730 [facility] Last Admin: 04/11/18 18:43 Dose: 1 tab Divalproex Sodium (Depakote Sprinkle Caps -) 125 mg PO BID [facility] Last Admin: 04/11/18 21:25 Dose: 125 mg Folic Acid (Folic Acid -) 1 mg PO DAILY [facility] Last Admin: 04/11/18 10:52 Dose: 1 mg Insulin Aspart (Novolog Vial Sliding Scale -) 1 vial SQ [facility]; Protocol Last Admin: 04/12/18 06:05 Dose: Not Given Pantoprazole Sodium (Protonix -) 40 mg PO DAILY [facility] Last Admin: 04/11/18 10:52 Dose: 40 mg Prednisone (Deltasone -) 20 mg PO DAILY [facility] Last Admin: 04/11/18 10:52 Dose: 20 mg - Objective Vital Signs: Vital Signs Temperature 98.3 F 04/12/18 05:37 Pulse Rate 75 04/12/18 05:37 Respiratory Rate 18 04/12/18 05:37 Blood Pressure 143/78 04/12/18 05:37 O2 Sat by Pulse Oximetry (%) 99 04/11/18 21:00 Constitutional: Yes: No Distress, Calm Eyes: Yes: Conjunctiva Clear HENT: Yes: Atraumatic Neck: Yes: Supple Cardiovascular: Yes: Regular Rate and Rhythm Respiratory: Yes: CTA Bilaterally Gastrointestinal: Yes: Soft. No: Tenderness Genitourinary: No: CVA Tenderness - Left, CVA Tenderness - Right Musculoskeletal: No: Joint Stiffness, Joint Swelling Extremities: No: Cold, Cool Edema: No Integumentary: No: Rash, Venous Stasis Changes Neurological: Yes: WNL, Alert, Oriented ...Motor Strength: WNL Psychiatric: Yes: WNL, Alert, Oriented. No: Agitated, Suicidal Ideation Labs: CBC, BMP 04/12/18 06:30 04/12/18 06:30 INR, PTT INR 1.39 (0.83-1.09) H 04/07/18 06:30 - ....Imaging Other: Report Reviewed Assessment/Plan 72yo F with PMH of CLL, HTN, CHF, choledocholithiasis s/p sepsis completed antibiotics per ID; heme onc, ID f/u; noted; repeated abdomen CT results pending po ATB /ID d/w dr Schulte; f/u labs and cultures s/p PLT and PRBC for low Hg and low PLT; might need transfusions again if blood counts drop falls decubs DVT pfx d/w pt do not get OOB alone, ask for help if needs OOB DVT Pfx ambulate and TEds SDC prognosis guarded d /w pt and staff will call pt's daughter.
[2018-04-12] MEDS: DIVALPROEX SODIUM 125 MG SPRINKLE CAPS PO SCH ×2 (10:40→22:08)
[2018-04-12] MEDS: ALLOPURINOL 300 MG TABLET (FP) PO SCH (10:41)
[2018-04-12] MEDS: amLODIPine BESYLATE 2.5 MG TABLET (FP) PO SCH (10:41)
[2018-04-12] MEDS: FOLIC ACID 1 MG TABLET (FP) PO SCH (10:41)
[2018-04-12] MEDS: PANTOPRAZOLE 40 MG TABLET (FP) PO SCH (10:41)
[2018-04-12] MEDS: AMOX TR/POT CLAV 875MG/125MG TABLETS (FP) PO SCH ×2 (10:41→18:27)
[2018-04-12] MEDS: predniSONE 20 MG TABLET (UD) PO SCH (10:41)
[2018-04-12 11:14] LABS: ANISOCYTOSIS 0; MACROCYTOSIS 0; PLATELET ESTIMATE DECREASED
--- NOTE | 2018-04-12 14:12 | PN ---
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 (short form) - Note 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: repeat CT with stable fluid collection likely hemorrhagic cyst as opposed to any infectious process no further w/u necessary recommend repeat imaging in 3 months Problem List - Problems (1) Cyst of left kidney Code(s): N28.1 - CYST OF KIDNEY, ACQUIRED
--- NOTE | 2018-04-12 18:27 | PN ---
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 (short form) - Note 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: Patient seen and examined Discussed with Dr. Macias Spoke with patients daughter Prior notes reviewed Last Vital Signs Temp Pulse Resp BP Pulse Ox 98.2 F 90 18 123/72 99 04/12/18 14:58 04/12/18 14:58 04/12/18 14:58 04/12/18 14:58 04/12/18 09:00 HEENT: FELIBERTO, EOM Intact Oropharynx: No thrush, No mucositis Cor: RSR, No murmurs, No gallops Lungs: rhonchi Abd: Soft, Normal bowel sounds, No organomegaly Ext:No significant edema, numerous echymoses Skin: No rashes, Integument intact CBC, BMP 04/12/18 06:30 04/12/18 06:30 Current Medications Generic Name Dose Route Start Last Admin Trade Name Freq PRN Reason Stop Dose Admin Acetaminophen 650 mg 03/31/18 19:44 Tylenol - PO Q6H PRN FEVER Allopurinol 300 mg 04/05/18 10:00 04/12/18 10:41 Zyloprim - PO 300 mg DAILY [facility] Administration Amlodipine Besylate 2.5 mg 04/01/18 10:00 04/12/18 10:41 Norvasc - PO 2.5 mg DAILY [facility] Administration Amoxicillin/Clavulanate Potassium 1 tab 04/11/18 17:30 04/12/18 10:41 Augmentin - 875mg Tablet PO 1 tab BID@0800,1730 [facility] Administration Divalproex Sodium 125 mg 04/07/18 22:00 04/12/18 10:40 Depakote Sprinkle Caps - PO 125 mg BID [facility] Administration Folic Acid 1 mg 04/01/18 10:00 04/12/18 10:41 Folic Acid - PO 1 mg DAILY [facility] Administration Insulin Aspart 1 vial 04/03/18 11:00 04/12/18 13:52 Novolog Vial Sliding Scale - SQ Not Given [facility] Protocol Pantoprazole Sodium 40 mg 04/01/18 10:00 04/12/18 10:41 Protonix - PO 40 mg DAILY [facility] Administration Prednisone 20 mg 04/06/18 10:00 04/12/18 10:41 Deltasone - PO 20 mg DAILY [facility] Administration Impression: CLL Pancytopenia UTI Bacteremia Plan: Complete course of antibiotics Rituxin therapy thereafter Continue to taper off steroids
--- NOTE | 2018-04-12 20:09 | PN ---
GI 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 Subjective: GI NOte: CT scans reviewed. At no time did Tracy have the pain , constipation or other symptoms of diverticulitis so I believe the CT findings are not indicative of diverticulitis. I have again advised a colonoscopy to exclude a colon cancer but she again has refused. I have discussed the case with Dr Garcia and her daughter. I do not believe that the sigmoid findings contraindicate a trial of Rituxin. She has no serological evidence of underlying HBV. I have expressed that my greater concern is that she may pass another gallstone causing cholangitis or cholecystitis and that when her hematological picture improves with Rituxin that a cholecystectomy should be then undertaken. - Objective Vital Signs: Vital Signs Temperature 98.5 F 04/12/18 18:53 Pulse Rate 104 H 04/12/18 18:53 Respiratory Rate 18 04/12/18 18:53 Blood Pressure 142/72 04/12/18 18:53 O2 Sat by Pulse Oximetry (%) 99 04/12/18 09:00 Constitutional: Anxious ...Auscultate: Yes: Normoactive Bowel Sounds ...Palpate: Yes: Soft, Other (nontender) Labs: CBC, BMP 04/12/18 06:30 04/12/18 06:30 INR, PTT INR 1.39 (0.83-1.09) H 04/07/18 06:30 Assessment/Plan Doubt diverticulitis but should ultimately have colonoscopy to exclude a neoplasm. Unfortunately Tracy says he will not allow one. Will ultimately also need cholecystectomy Discussed with Dr Garcia and daughter Dayana Problem List - Problems (1) GI (gastrointestinal hemorrhage) Code(s): K92.2 - GASTROINTESTINAL HEMORRHAGE, UNSPECIFIED (2) Choledocholithiasis Code(s): K80.50 - CALCULUS OF BILE DUCT W/O CHOLANGITIS OR CHOLECYST W/O OBST (3) Chronic lymphocytic leukemia Code(s): C91.90 - LYMPHOID LEUKEMIA, UNSPECIFIED NOT HAVING ACHIEVED REMISSION (4) Pneumonia Code(s): J18.9 - PNEUMONIA, UNSPECIFIED ORGANISM (5) Fever Code(s): R50.9 - FEVER, UNSPECIFIED
--- NOTE | 2018-04-13 02:46 | PN ---
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, Physician Chief Complaint: Pt is sitting up at bedside; pleasant; denies dyspnea, chest pain, dizziness, or palpitations. No abdominal pain; appetite "good". History of Present Illness: 72yo white woman with PMH of CLL, PAD (70% Lt iliac stenosis), hyperlipidemia, HTN, diastolic CHF, choledocholithiasis, now presenting with fever and cough. Patient was sent by her heme/onc specialist, Dr. Garcia. Patient's recent history is significant for recent hospital stay. She had cholodocholithiasis in late January which necessitated ERCP with sphinceterotomy at this hospital. Patient's hospital course was significant for GI bleed for which she was ultimately transferred to [facility]. Patient stayed there for two weeks and was discharged to [facility]. At [facility], she was found to have low hemoglobin for which she was sent to [facility] and transfused. Patient was discharged last night and saw Dr. Garcia today. Patient has no chest pain or shortness of breath - Current Medication List Current Medications: Active Medications Acetaminophen (Tylenol -) 650 mg PO Q6H PRN PRN Reason: FEVER Allopurinol (Zyloprim -) 300 mg PO DAILY [facility] Last Admin: 04/12/18 10:41 Dose: 300 mg Amlodipine Besylate (Norvasc -) 2.5 mg PO DAILY [facility] Last Admin: 04/12/18 10:41 Dose: 2.5 mg Amoxicillin/Clavulanate Potassium (Augmentin - 875mg Tablet) 1 tab PO BID@0800, 1730 [facility] Last Admin: 04/12/18 18:27 Dose: 1 tab Divalproex Sodium (Depakote Sprinkle Caps -) 125 mg PO BID [facility] Last Admin: 04/12/18 22:08 Dose: 125 mg Folic Acid (Folic Acid -) 1 mg PO DAILY [facility] Last Admin: 04/12/18 10:41 Dose: 1 mg Insulin Aspart (Novolog Vial Sliding Scale -) 1 vial SQ [facility]; Protocol Last Admin: 04/12/18 22:11 Dose: 4 unit Pantoprazole Sodium (Protonix -) 40 mg PO DAILY [facility] Last Admin: 04/12/18 10:41 Dose: 40 mg Prednisone (Deltasone -) 20 mg PO DAILY [facility] Last Admin: 04/12/18 10:41 Dose: 20 mg - Objective Vital Signs: Vital Signs Temperature 98.5 F 04/12/18 18:53 Pulse Rate 104 H 04/12/18 18:53 Respiratory Rate 18 04/12/18 18:53 Blood Pressure 142/72 04/12/18 18:53 O2 Sat by Pulse Oximetry (%) 99 04/12/18 09:00 Constitutional: Yes: No Distress Eyes: Yes: WNL HENT: Yes: WNL Neck: Yes: WNL Cardiovascular: Yes: WNL Respiratory: Yes: WNL Gastrointestinal: Yes: Soft. No: Tenderness ...Rectal Exam: Yes: Deferred Genitourinary: No: Anuria Breast(s): Yes: WNL Musculoskeletal: Yes: Muscle Weakness Extremities: Yes: WNL Edema: No Peripheral Pulses WNL: Yes Integumentary: Yes: WNL Neurological: Yes: Alert, Weakness Psychiatric: Yes: Alert Labs: CBC, BMP 04/12/18 06:30 04/12/18 06:30 INR, PTT INR 1.39 (0.83-1.09) H 04/07/18 06:30 Abnormal Lab Results 04/12/18 04/12/18 06:30 06:30 WBC 3.2 L RBC 3.04 L Hgb 8.3 L Hct 25.8 L RDW 15.7 H Plt Count 82 L Absolute Neuts (auto) 1.2 L Neutrophils % 37.6 L Neutrophils % (Manual) 29.0 L Lymphocytes % 58.5 H Lymphocytes % (Manual) 66.0 H D Monocytes % 1.4 L Monocytes % (Manual) 1 L D Basophils % 2.2 H Blast Cells % (Manual) 1 H D Carbon Dioxide 34 H Anion Gap 4 L BUN 31 H AST 12 L Total Protein 5.4 L Albumin 2.4 L - ....Imaging Cat Scan: Image Reviewed Problem List - Problems (1) CKD (chronic kidney disease) Code(s): N18.9 - CHRONIC KIDNEY DISEASE, UNSPECIFIED (2) Chronic lymphocytic leukemia Assessment/Plan: f/u with heme/oncologist. Code(s): C91.90 - LYMPHOID LEUKEMIA, UNSPECIFIED NOT HAVING ACHIEVED REMISSION (3) SIRS (systemic inflammatory response syndrome) Code(s): R65.10 - SIRS OF NON-INFECTIOUS ORIGIN W/O ACUTE ORGAN DYSFUNCTION (4) Anxiety disorder Code(s): F41.9 - ANXIETY DISORDER, UNSPECIFIED (5) Choledocholithiasis Assessment/Plan: f/u with oncologist, GI. ?diverticulitis. May require future cholecystectomy Code(s): K80.50 - CALCULUS OF BILE DUCT W/O CHOLANGITIS OR CHOLECYST W/O OBST (6) Diastolic CHF Assessment/Plan: BNP > 1,300 (double its level of several years ago) ECHO: normal LVEF; abnormal diastolic compliance; mlild MR and TR No JVD; not dyspneic. F/u BUN/Cr, electrolytes, daily wt, Is and Os. Code(s): I50.30 - UNSPECIFIED DIASTOLIC (CONGESTIVE) HEART FAILURE (7) Fever Code(s): R50.9 - FEVER, UNSPECIFIED (8) HTN (hypertension) Assessment/Plan: on amlodipine. Consider ACEI or ARB (HTN; DM). Code(s): I10 - ESSENTIAL (PRIMARY) HYPERTENSION (9) Nephrolithiasis Code(s): N20.0 - CALCULUS OF KIDNEY (10) Thrombocytopenia Assessment/Plan: Platelet level remains low, but relatively stable. Code(s): D69.6 - THROMBOCYTOPENIA, UNSPECIFIED (11) Anemia Code(s): D64.9 - ANEMIA, UNSPECIFIED (12) PAD (peripheral artery disease) Code(s): I73.9 - PERIPHERAL VASCULAR DISEASE, UNSPECIFIED (13) Positive blood cultures Assessment/Plan: On Rocephin and Flagyl. F/u with ID. Code(s): R78.81 - BACTEREMIA
--- NOTE | 2018-04-13 06:29 | DS ---
Physical Examination Vital Signs: Vital Signs Temperature 98.2 F 04/13/18 06:18 Pulse Rate 84 04/13/18 06:18 Respiratory Rate 18 04/13/18 06:18 Blood Pressure 135/83 04/13/18 06:18 O2 Sat by Pulse Oximetry (%) 99 04/12/18 21:00 Findings/Remarks: in bed feeling well no c/o wants to go home called daughter Dayana; repeat CT noted; cleared by and GI for chemotx after she finishes 1 week po ATB Constitutional: Yes: No Distress, Calm Eyes: Yes: Conjunctiva Clear HENT: Yes: Atraumatic Neck: Yes: Supple Cardiovascular: Yes: Regular Rate and Rhythm Respiratory: Yes: CTA Bilaterally Gastrointestinal: Yes: Soft. No: Tenderness Renal/: No: CVA Tenderness - Left, CVA Tenderness - Right Musculoskeletal: No: Joint Stiffness, Joint Swelling Extremities: No: Cold, Cool, Cyanosis Edema: No Integumentary: No: Rash, Venous Stasis Changes Neurological: Yes: WNL, Alert, Oriented ...Motor Strength: WNL Psychiatric: Yes: WNL, Alert, Oriented. No: Agitated, Suicidal Ideation Labs: CBC, BMP 04/12/18 06:30 04/12/18 06:30 Discharge Summary Reason For Visit: SIRS/COUGH Current Active Problems Anemia (Acute) CKD (chronic kidney disease) (Acute) Chronic lymphocytic leukemia (Acute) Cough (Acute) Cyst of left kidney (Acute) PAD (peripheral artery disease) (Acute) Pneumonia (Acute) Positive blood cultures (Acute) SIRS (systemic inflammatory response syndrome) (Acute) Thrombocytopenia (Acute) UTI (urinary tract infection) (Acute) Procedures: Principal: admitted with sepsis + blood cx; h/o leukemia, renal stones, UTI chongitis and galls tones; Other Procedures: seen by ID, , GI and heme onc; IV ATB per ID Hospital Course: improved with above; DC home f/u as advised Condition: Guarded - Instructions Diet, Activity, Other Instructions: f/u PCP and heme onc in 1-2 weeks after DC home; po ATB 1 week as ordered; chemotx per ONC after ATB completed; f/u for renal stones and renal cyst within 1 month after DC; f/u GI for gallstones and cholecystectomy within 1 month of DC; RTER if worse or recurrent; dw pt and daughter; Referrals: Sabi Jordan [Primary Care Provider] - Disposition: RESIDENTIAL FACILITY - Home Medications Comprehensive Discharge Medication List: Ambulatory Orders Amlodipine Besylate [Norvasc -] 10 mg PO DAILY 03/31/18 Folic Acid 1 mg PO DAILY 03/31/18 Pantoprazole Sodium [Protonix] 40 mg PO DAILY 03/31/18 Prednisone [Deltasone] 30 mg PO [facility] 03/31/18
[2018-04-13] MEDS: INSULIN SLIDING SCALE (NOVOLOG) 1 VIAL SQ SCH ×3 (07:03→18:28)
[2018-04-13] MEDS: AMOX TR/POT CLAV 875MG/125MG TABLETS (FP) PO SCH ×2 (08:53→18:26)
[2018-04-13] MEDS: DIVALPROEX SODIUM 125 MG SPRINKLE CAPS PO SCH (09:02)
[2018-04-13] MEDS: predniSONE 20 MG TABLET (UD) PO SCH (09:02)
[2018-04-13] MEDS: PANTOPRAZOLE 40 MG TABLET (FP) PO SCH (09:02)
[2018-04-13] MEDS: ALLOPURINOL 300 MG TABLET (FP) PO SCH (09:02)
[2018-04-13] MEDS: FOLIC ACID 1 MG TABLET (FP) PO SCH (09:02)
[2018-04-13] MEDS: amLODIPine BESYLATE 2.5 MG TABLET (FP) PO SCH (09:05)
--- NOTE | 2018-04-13 11:42 | PN ---
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, Physician History of Present Illness: 72yo white woman with PMH of CLL, PAD (70% Lt iliac stenosis), hyperlipidemia, HTN, diastolic CHF, choledocholithiasis, now presenting with fever and cough. Patient was sent by her heme/onc specialist, Dr. Garcia. Patient's recent history is significant for recent hospital stay. She had cholodocholithiasis in late January which necessitated ERCP with sphinceterotomy at this hospital. Patient's hospital course was significant for GI bleed for which she was ultimately transferred to [facility]. Patient stayed there for two weeks and was discharged to [facility]. At [facility], she was found to have low hemoglobin for which she was sent to [facility] and transfused. Patient was discharged last night and saw Dr. Garcia today. Patient has no chest pain or shortness of breath - Current Medication List Current Medications: Active Medications Acetaminophen (Tylenol -) 650 mg PO Q6H PRN PRN Reason: FEVER Allopurinol (Zyloprim -) 300 mg PO DAILY [facility] Last Admin: 04/13/18 09:02 Dose: 300 mg Amlodipine Besylate (Norvasc -) 2.5 mg PO DAILY [facility] Last Admin: 04/13/18 09:05 Dose: 2.5 mg Amoxicillin/Clavulanate Potassium (Augmentin - 875mg Tablet) 1 tab PO BID@0800, 1730 [facility] Last Admin: 04/13/18 08:53 Dose: 1 tab Divalproex Sodium (Depakote Sprinkle Caps -) 125 mg PO BID [facility] Last Admin: 04/13/18 09:02 Dose: 125 mg Folic Acid (Folic Acid -) 1 mg PO DAILY [facility] Last Admin: 04/13/18 09:02 Dose: 1 mg Insulin Aspart (Novolog Vial Sliding Scale -) 1 vial SQ ACHS [facility]; Protocol Last Admin: 04/13/18 07:03 Dose: Not Given Pantoprazole Sodium (Protonix -) 40 mg PO DAILY [facility] Last Admin: 04/13/18 09:02 Dose: 40 mg Prednisone (Deltasone -) 20 mg PO DAILY [facility] Last Admin: 04/13/18 09:02 Dose: 20 mg - Objective Vital Signs: Vital Signs Temperature 98.2 F 04/13/18 06:18 Pulse Rate 84 04/13/18 06:18 Respiratory Rate 18 04/13/18 06:18 Blood Pressure 135/83 04/13/18 06:18 O2 Sat by Pulse Oximetry (%) 99 04/12/18 21:00 Eyes: Yes: WNL, Conjunctiva Clear, EOM Intact HENT: Yes: WNL, Atraumatic, Normocephalic Neck: Yes: WNL, Supple, Trachea Midline Cardiovascular: Yes: WNL, Regular Rate and Rhythm Respiratory: Yes: WNL, Regular, CTA Bilaterally Gastrointestinal: Yes: WNL, Normal Bowel Sounds Genitourinary: Yes: WNL Musculoskeletal: Yes: WNL Extremities: Yes: WNL Edema: No Integumentary: Yes: WNL Neurological: Yes: WNL, Alert, Oriented ...Motor Strength: WNL Psychiatric: Yes: WNL Labs: CBC, BMP 04/12/18 06:30 04/12/18 06:30 INR, PTT INR 1.39 (0.83-1.09) H 04/07/18 06:30 Assessment/Plan - Problems (1) CKD (chronic kidney disease) Code(s): N18.9 - CHRONIC KIDNEY DISEASE, UNSPECIFIED (2) Chronic lymphocytic leukemia Assessment/Plan: f/u with heme/oncologist. Code(s): C91.90 - LYMPHOID LEUKEMIA, UNSPECIFIED NOT HAVING ACHIEVED REMISSION (3) SIRS (systemic inflammatory response syndrome) Code(s): R65.10 - SIRS OF NON-INFECTIOUS ORIGIN W/O ACUTE ORGAN DYSFUNCTION (4) Anxiety disorder Code(s): F41.9 - ANXIETY DISORDER, UNSPECIFIED (5) Choledocholithiasis Assessment/Plan: f/u with oncologist, GI. ?diverticulitis. May require future cholecystectomy Code(s): K80.50 - CALCULUS OF BILE DUCT W/O CHOLANGITIS OR CHOLECYST W/O OBST (6) Diastolic CHF Assessment/Plan: BNP > 1,300 (double its level of several years ago) ECHO: normal LVEF; abnormal diastolic compliance; mlild MR and TR No JVD; not dyspneic. F/u BUN/Cr, electrolytes, daily wt, Is and Os. Code(s): I50.30 - UNSPECIFIED DIASTOLIC (CONGESTIVE) HEART FAILURE (7) Fever Code(s): R50.9 - FEVER, UNSPECIFIED (8) HTN (hypertension) Assessment/Plan: on amlodipine. Consider ACEI or ARB (HTN; DM). Code(s): I10 - ESSENTIAL (PRIMARY) HYPERTENSION (9) Nephrolithiasis Code(s): N20.0 - CALCULUS OF KIDNEY (10) Thrombocytopenia Assessment/Plan: Platelet level remains low, but relatively stable. Code(s): D69.6 - THROMBOCYTOPENIA, UNSPECIFIED (11) Anemia Code(s): D64.9 - ANEMIA, UNSPECIFIED (12) PAD (peripheral artery disease) Code(s): I73.9 - PERIPHERAL VASCULAR DISEASE, UNSPECIFIED (13) Positive blood cultures Assessment/Plan: On Rocephin and Flagyl. F/u with ID. Code(s): R78.81 - BACTEREMIA
--- NOTE | 2018-04-13 16:59 | PN ---
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 (short form) - Note 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: Patient seen and examined Offers no specific complaints Last Vital Signs Temp Pulse Resp BP Pulse Ox 98.1 F 77 18 116/58 L 99 04/13/18 14:51 04/13/18 14:51 04/13/18 14:51 04/13/18 14:51 04/13/18 09:00 HEENT: FELIBERTO, EOM Intact Oropharynx: No thrush, No mucositis,poor dentition Nodes: Without adenopathy Cor: RSR, No murmurs, No gallops Lungs: scattered rhonchi Abd: Soft, Normal bowel sounds, No organomegaly Ext:No significant edema Skin: No rashes, Integument intact CBC, BMP 04/12/18 06:30 04/12/18 06:30 Current Medications Generic Name Dose Route Start Last Admin Trade Name Freq PRN Reason Stop Dose Admin Acetaminophen 650 mg 03/31/18 19:44 Tylenol - PO Q6H PRN FEVER Allopurinol 300 mg 04/05/18 10:00 04/13/18 09:02 Zyloprim - PO 300 mg DAILY RYAN Administration Amlodipine Besylate 2.5 mg 04/01/18 10:00 04/13/18 09:05 Norvasc - PO 2.5 mg DAILY RYAN Administration Amoxicillin/Clavulanate Potassium 1 tab 04/11/18 17:30 04/13/18 08:53 Augmentin - 875mg Tablet PO 1 tab BID@0800,1730 RYAN Administration Divalproex Sodium 125 mg 04/07/18 22:00 04/13/18 09:02 Depakote Sprinkle Caps - PO 125 mg BID RYAN Administration Folic Acid 1 mg 04/01/18 10:00 04/13/18 09:02 Folic Acid - PO 1 mg DAILY [facility]AN Administration Insulin Aspart 1 vial 04/03/18 11:00 04/13/18 12:32 Novolog Vial Sliding Scale - SQ 2 unit ACHS R[facility]AN Administration Protocol Pantoprazole Sodium 40 mg 04/01/18 10:00 04/13/18 09:02 Protonix - PO 40 mg DAILY [facility]AN Administration Prednisone 20 mg 04/06/18 10:00 04/13/18 09:02 Deltasone - PO 20 mg DAILY [facility]AN Administration Impression; CLL Pancytopenia UTI Bacteremia Plan : OK for discharge for office f/u for Rituxin Would discharge home on Prednisone 10 mg.
[2018-04-13 17:41] VITALS: BP 118/64; PULSE 68; TEMP 98.2
== END 2018-04-13 20:00 | disposition home or self-care (01) | DRG 871 ==
LOC: JER 16:23 → JERBED 19:50 → J8W 23:36 → J7W 04-05 15:17
PROVIDERS: ADMIT Internal Medicine; ATTEND Internal Medicine
PROC: 30233N1 Transfusion of Nonautologous Red Blood Cells into Peripheral Vein, Percutaneous Approach (ICD-10-PCS; 2018-04-01)
PROC: 30233R1 Transfusion of Nonautologous Platelets into Peripheral Vein, Percutaneous Approach (ICD-10-PCS; principal; 2018-04-02)
DX: A41.9 Sepsis, unspecified organism (principal); J18.9 Pneumonia, unspecified organism; C91.90 Lymphoid leukemia, unspecified not having achieved remission; N39.0 Urinary tract infection, site not specified; K92.2 Gastrointestinal hemorrhage, unspecified; I13.0 Hypertensive heart and chronic kidney disease with heart failure and stage 1 through stage 4 chronic kidney disease, or unspecified chronic kidney disease; I50.30 Unspecified diastolic (congestive) heart failure; F41.9 Anxiety disorder, unspecified; N20.0 Calculus of kidney; K57.90 Diverticulosis of intestine, part unspecified, without perforation or abscess without bleeding; D64.9 Anemia, unspecified; R50.9 Fever, unspecified; D69.6 Thrombocytopenia, unspecified; M54.5 Low back pain; I73.9 Peripheral vascular disease, unspecified; K80.50 Calculus of bile duct without cholangitis or cholecystitis without obstruction; R91.1 Solitary pulmonary nodule; B96.1 Klebsiella pneumoniae [K. pneumoniae] as the cause of diseases classified elsewhere; D72.819 Decreased white blood cell count, unspecified; N28.1 Cyst of kidney, acquired; F03.90 Unspecified dementia, unspecified severity, without behavioral disturbance, psychotic disturbance, mood disturbance, and anxiety; N18.9 Chronic kidney disease, unspecified; Z78.0 Asymptomatic menopausal state
CPT/HCPCS: 36415; 36430; 71045-TC-FY; 71250-TC; 74176-TC; 80053; 81003; 81015; 82272; 82784; 82803; 82962; 83010; 83605; 83615; 83735; 84484; 84550; 85025; 85044; 85610; 85730; 86850; 86900; 86901; 86922; 87040; 87045; 87046; 87076; 87077; 87086; 87177; 87186; 87209; 87324; 87449; 87804; 87807; 87899; 93005; 93010; 97116-GP; 97161-GP; 99284-25; J0131; J7030; P9034; P9038; P9058; Q9967

== ENCOUNTER 2018-04-26 07:13 | Day surgery (SDC) | payer OTHER, MEDICARE ==
[2018-04-26] MEDS ORDERED: SODIUM CHLORIDE IVPB ONE (10:00)
[2018-04-26] MEDS ORDERED: RITUXIMAB IVPB ONE (10:00)
[2018-04-26] MEDS ORDERED: DEXAMETHASONE INJECTION 10 MG, DIPHENHYDRAMINE 50 MG in SODIUM CHLORIDE 100 ML IVPB ONE (10:00)
[2018-04-26] MEDS ORDERED: ACETAMINOPHEN 325 MG TABLET (FP) PO ONE (10:00)
[2018-04-26 10:22] LABS: HEMATOCRIT 23.3 % (32.4-45.2); HEMOGLOBIN 7.8 GM/dL (10.7-15.3); MCH 27.4 pg (25.7-33.7); MCHC 33.3 g/dl (32.0-36.0); MEAN CELL VOLUME 82.4 fl (80-96); MEAN PLT VOLUME 8.2 fl (7.5-11.1); PLATELET COUNT 142 K/MM3 (134-434); RBC 2.83 M/mm3 (3.60-5.2); RDW 15.7 % (11.6-15.6); WHITE BLOOD COUNT 2.4 K/mm3 (4.0-10.0)
[2018-04-26 10:56] LABS: ALK PHOS 64 U/L (45-117); ANION GAP 12 MMOL/L (8-16); BILIRUBIN,DIRECT 0.4 mg/dL (0.0-0.2); BILIRUBIN,TOTAL 1.5 mg/dL (0.2-1); BLOOD UREA NITROGEN 23 mg/dL (7-18); CALCIUM 9.6 mg/dL (8.5-10.1); CHLORIDE 103 mmol/L (98-107); CO2 24 mmol/L (21-32); CREATININE 1.3 mg/dL (0.55-1.3); GLUCOSE,RANDOM 149 mg/dL (74-106); MAGNESIUM 1.9 mg/dL (1.8-2.4); POTASSIUM 4.2 mmol/L (3.5-5.1); SGOT/AST 18 U/L (15-37); SGPT/ALT 15 U/L (13-61); SODIUM 139 mmol/L (136-145); TOT PROT 6.5 g/dl (6.4-8.2); URIC ACID 2.1 mg/dL (2.6-7.2)
[2018-04-26 11:17] LABS: LDH 238 U/L (84-246)
[2018-04-26 12:43] LABS: ANISOCYTOSIS 0; MACROCYTOSIS 0; PLATELET ESTIMATE DECREASED; TARGET CELLS 1+; TEAR DROP CELLS 1+
[2018-04-26 16:58] VITALS: TEMP 97.9
[2018-04-26 17:52] VITALS: BP 110/52; PULSE 86
== END 2018-04-26 16:45 | disposition home or self-care (01) ==
LOC: JONCCHEMO 07:13 → J7W 10:03 → JONCCHEMO 16:45
PROVIDERS: ATTEND Internal Medicine Hematology & Oncology
DX: Z51.11 Encounter for antineoplastic chemotherapy (principal); C91.10 Chronic lymphocytic leukemia of B-cell type not having achieved remission
CPT/HCPCS: 36415; 80048; 80076; 83615; 83735; 84550; 85025; 96367; 96375; 96413; 96415; J1100; J9312

== ENCOUNTER 2018-04-27 09:07 | Day surgery (SDC) | payer OTHER, MEDICARE ==
--- NOTE | 2018-04-27 16:52 | PN ---
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 (short form) - Note 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: Initial hospital visit Patient with CLL, pancytopenia who received cycle 1 day 1 of Rituxin therapy on 04/26/18/ Tolerated well History of cholelithiasis and attempt at sphincterotomy resulted in post procedure bleeding requiring transfusions. Pancytopenia now likely secondary to marrow infiltration from CLL. Hct 23 % on 04/26 Admitted for transfusion therapy P.E. 129/61 P-80 20 98.3 HEENT: FELIBERTO, EOM Intact Oropharynx: No thrush, No mucositis Poor dentition Neck: Supple Nodes: Without adenopathy Breasts: Without masses Cor: RSR, No murmurs, No gallops Lungs: Clear to P&A Abd: Soft, Normal bowel sounds, No organomegaly Ext:No significant edema Skin: No rashes, Integument intactImpression Impression: CLL Pancytopenia Plan : 2 units of packed cells.
[2018-04-27 21:30] VITALS: BP 119/69; PULSE 82; TEMP 98.3
[2018-04-27 21:45] LABS: BASO % 0.5 % (0-2.0); HEMATOCRIT 27.3 % (32.4-45.2); HEMOGLOBIN 9.6 GM/dL (10.7-15.3); LYMPH % 27.1 % (8-40); MCH 29.7 pg (25.7-33.7); MCHC 35.2 g/dl (32.0-36.0); MEAN CELL VOLUME 84.3 fl (80-96); MEAN PLT VOLUME 9.2 fl (7.5-11.1); MONO % 1.9 % (3.8-10.2); NEUT % 69.5 % (42.8-82.8); PLATELET COUNT 133 K/MM3 (134-434); RBC 3.23 M/mm3 (3.60-5.2); RDW 15.5 % (11.6-15.6)
[2018-04-27 21:55] LABS: WHITE BLOOD COUNT 1.9 K/mm3 (4.0-10.0)
[2018-04-27 22:20] LABS: PLATELET ESTIMATE DECREASED
== END 2018-04-27 21:25 | disposition home or self-care (01) ==
LOC: JBLOOD 09:07 → J7W 09:27 → JBLOOD 21:30
PROVIDERS: ATTEND Internal Medicine Hematology & Oncology
PROC: 30233N1 Transfusion of Nonautologous Red Blood Cells into Peripheral Vein, Percutaneous Approach (ICD-10-PCS; principal; 2018-04-27)
DX: C91.10 Chronic lymphocytic leukemia of B-cell type not having achieved remission (principal); D61.818 Other pancytopenia
CPT/HCPCS: 36415; 36430; 36511; 85025; 86850; 86900; 86901; 86922; P9038; P9058

== ENCOUNTER 2018-05-03 06:23 | Day surgery (SDC) | payer OTHER, MEDICARE ==
[2018-05-03 09:52] LABS: BASO % 3.2 % (0-2.0); EOS % 1.8 % (0-4.5); HEMOGLOBIN 11.1 GM/dL (10.7-15.3); LYMPH % 24.9 % (8-40); MCH 29.3 pg (25.7-33.7); MCHC 35.7 g/dl (32.0-36.0); MEAN CELL VOLUME 82.2 fl (80-96); MEAN PLT VOLUME 9.5 fl (7.5-11.1); MONO % 3.3 % (3.8-10.2); NEUT % 66.8 % (42.8-82.8); PLATELET COUNT 176 K/MM3 (134-434); RBC 3.78 M/mm3 (3.60-5.2); RDW 16.5 % (11.6-15.6)
[2018-05-03] MEDS ORDERED: DEXAMETHASONE SODIUM PHOSPHATE 10 MG, DIPHENHYDRAMINE 50 MG in SODIUM CHLORIDE 100 ML IVPB ONE (10:00)
[2018-05-03] MEDS ORDERED: ACETAMINOPHEN 325 MG TABLET (FP) PO ONE (10:00)
[2018-05-03 10:03] LABS: ALK PHOS 72 U/L (45-117); ANION GAP 5 MMOL/L (8-16); BILIRUBIN,DIRECT 0.3 mg/dL (0.0-0.2); BILIRUBIN,TOTAL 1.1 mg/dL (0.2-1); BLOOD UREA NITROGEN 26 mg/dL (7-18); CALCIUM 9.4 mg/dL (8.5-10.1); CHLORIDE 104 mmol/L (98-107); CO2 29 mmol/L (21-32); GLUCOSE,RANDOM 121 mg/dL (74-106); MAGNESIUM 1.9 mg/dL (1.8-2.4); POTASSIUM 4.4 mmol/L (3.5-5.1); SGOT/AST 19 U/L (15-37); SGPT/ALT 14 U/L (13-61); SODIUM 138 mmol/L (136-145); TOT PROT 6.6 g/dl (6.4-8.2)
[2018-05-03] MEDS ORDERED: RITUXIMAB IVPB ONE (10:30)
[2018-05-03] MEDS ORDERED: SODIUM CHLORIDE IVPB ONE (10:30)
[2018-05-03 11:30] LABS: ANISOCYTOSIS 3+; MACROCYTOSIS 0; PLATELET ESTIMATE NORMAL; TEAR DROP CELLS 1+
[2018-05-03] MEDS ORDERED: POTASSIUM CHLORIDE TABS 20 MEQ TABLET.ER (FP) PO ONE (12:00)
[2018-05-03] MEDS ORDERED: FUROSEMIDE 40 MG/4 ML INJECTABLE VIAL IVPUSH ONE (12:00)
[2018-05-03 15:22] VITALS: BP 91/46; PULSE 99
[2018-05-04 16:23] LABS: BETA-2-MICROGLOBULIN 4.8 mg/L (0.6-2.4)
[2018-05-06 16:51] VITALS: TEMP 98
== END 2018-05-03 15:30 | disposition home or self-care (01) ==
LOC: JONCCHEMO 06:23 → J7W 11:13 → JONCCHEMO 15:30
PROVIDERS: ATTEND Internal Medicine Hematology & Oncology
DX: Z51.11 Encounter for antineoplastic chemotherapy (principal); C91.10 Chronic lymphocytic leukemia of B-cell type not having achieved remission; D61.818 Other pancytopenia
CPT/HCPCS: 36415; 80048; 80076; 82232; 82784; 83735; 85025; 96366; 96367; 96375; 96413; 96415; J7030; J9312

== ENCOUNTER 2018-05-07 13:49 | Inpatient (IN) | payer OTHER, MEDICARE ==
[2018-05-07] MEDS ORDERED: ACETAMINOPHEN 1000 MG/100 ML VIAL (NON FORMULARY) IVPB ONE (14:38)
[2018-05-07] MEDS ORDERED: PIPERACILLIN/TAZOB 4.5 GM 4.5 GM in DEXTROSE 5%-WATER 100 ML IVPB ONE (14:38)
[2018-05-07] MEDS ORDERED: LACTATED RINGERS SOLUTION 1000 ML INFUS.BAG IV ONE (14:39)
[2018-05-07] MEDS ORDERED: ACETAMINOPHEN INJECTION 100 ML IVPB ONE (14:50)
[2018-05-07] MEDS ORDERED: PIPERACILLIN/TAZOB 4.5 GM 4.5 GM/100 ML BAG IVPB ONE (14:51)
--- NOTE | 2018-05-07 15:02 | PDOC ---
Attending Attestation - HPI HPI: 05/07/18 15:22 The patient is a 72 year old female, with a significant past medical history of HTN, CLL (not on any treatment), thalassemia, anxiety, kidney stones, gallstones , who presents to the emergency department today with fever. The patient was recently admitted for choledocholithiasis which subsequently got ERCP, complicated by GI bleed. The patient notes she had one episode of diarrhea today. Patient denies any abdominal pain, chest pain, shortness of breath, cough or vomiting. Allergies: NKDA Past surgical history:None reported Social history: None reported PCP: Dr. Jordan - Physicial Exam PE: 05/07/18 15:23 GENERAL: Awake, alert, and fully oriented, in no acute distress HEAD: No signs of trauma EYES: EOMI, sclera anicteric, conjunctiva clear ENT: Auricles normal inspection, hearing grossly normal, nares patent, NECK: Normal ROM, supple, LUNGS: Breath sounds equal, clear to auscultation bilaterally. No wheezes, and no crackles ABDOMEN: Soft, nontender EXTREMITIES: (+) healed right lower extremity cellulitis NEUROLOGICAL: Cranial nerves II through XII grossly intact. Normal speech SKIN: Warm, Dry, normal turgor, no rashes or lesions noted. <Jong Garcia - Last Filed: 05/07/18 15:22> - Resident Resident Name: Miguelangel Maldonado - ED Attending Attestation I have performed the following: I have examined & evaluated the patient, The case was reviewed & discussed with the resident, I agree w/resident's findings & plan, Exceptions are as noted - Medical Decision Making 05/07/18 14:51 A portion of this note was documented by scribe services under my direction. I have reviewed the details of the note, within reason, and agree with the documentation with the following case summary and management plan written by me. Patient treated in the ED. Nursing notes are reviewed and incorporated into the medical decision-making. Vital signs reviewed. Peripheral IV access obtained by the nurse, laboratory studies are drawn and sent, reviewed and interpreted by myself. Vital Signs Temp Pulse Resp BP Pulse Ox 101.7 F H 119 H 20 146/76 92 L 05/07/18 13:54 05/07/18 13:54 05/07/18 13:54 05/07/18 13:54 05/07/18 13:54 72 year old female with past medical history of hypertension, CLL on rituximab, thalassemia, anxiety, kidney stones presents with fever today. The patient was recently admitted for choledocholithiasis which subsequently got ERCP, complicated by GI bleed. The patient stressor the month. Hospital which resolved. Patient was recently started on rituximab. Today, patient endorsed fever and had one episode loose stool but denied any other symptoms. Patient is recently being treated for cellulitis of the right lower extremity that is improved drastically with amoxicillin. Given that the patient had fever 101.7 today, the patient was brought to the ER. She however, denies any abdominal pain , chest pain or shortness of breath or cough or vomiting. Given that she's a cancer patient rituximab, we'll obtain a sepsis workup including lactic acid and blood cultures. The patient's right lower extremity appears to significant improvement at this time. She could potentially have gastritis. She overall appears nontoxic and well-appearing. We'll however, initiate empiric antibiotics. Labs. If the workup is unremarkable, we'll contact patient's doctors and dispose accordingly. 05/07/18 15:26 Chest xray reviewed. Large heart, but no acute pathology. 05/07/18 16:11 CBC, BMP 05/07/18 15:17 05/07/18 15:17 CMP Sodium 136 mmol/L (136-145) 05/07/18 15:17 Potassium 3.9 mmol/L (3.5-5.1) 05/07/18 15:17 Chloride 100 mmol/L (98-107) 05/07/18 15:17 Carbon Dioxide 29 mmol/L (21-32) 05/07/18 15:17 Anion Gap 7 MMOL/L (8-16) L 05/07/18 15:17 BUN 18 mg/dL (7-18) 05/07/18 15:17 Creatinine 1.2 mg/dL (0.55-1.3) 05/07/18 15:17 Creat Clearance w eGFR 44.16 (>60) 05/07/18 15:17 Random Glucose 140 mg/dL (74-106) H 05/07/18 15:17 Lactic Acid 1.8 mmol/L (0.4-2.0) 05/07/18 15:17 Calcium 9.4 mg/dL (8.5-10.1) 05/07/18 15:17 Total Bilirubin 2.0 mg/dL (0.2-1) H 05/07/18 15:17 AST 24 U/L (15-37) 05/07/18 15:17 ALT 20 U/L (13-61) 05/07/18 15:17 Alkaline Phosphatase 67 U/L (45-117) 05/07/18 15:17 Troponin I < 0.02 ng/ml (0.00-0.05) 05/07/18 15:17 Total Protein 6.6 g/dl (6.4-8.2) 05/07/18 15:17 Albumin 3.0 g/dl (3.4-5.0) L 05/07/18 15:17 Lipase 203 U/L (73-393) 05/07/18 15:17 Urine pending. Bilirubin elevated to 2.0. Case discussed with Dr. Sabi Jordan. Give her complex history and new onset of fever, Dr. Sabi Jordan requests admission to the hospital. Will admit the patient to the hospital. 05/07/18 17:36 Pt noted with UTI on urine results. <Marco Gandhi - Last Filed: 05/07/18 17:36> Heart Score/ECG Review #1 ECG reviewed & interpreted by me at: 15:00 05/07/18 15:07 NSR 99, left axis deviation, no std/gabriella, QTC 423 msec, TWI V2 <Marco Gandhi - Last Filed: 05/07/18 17:36> Attestations - Attestations 05/07/18 15:25 Documentation prepared by Jong Garcia, acting as medical technologist hematology for Marco Gandhi MD, MD <Jong Garcia - Last Filed: 05/07/18 15:22>
--- NOTE | 2018-05-07 15:14 | PDOC ---
History of Present Illness - General Chief Complaint: SIRS, Suspected/Possible Stated Complaint: COLD SYMPTOMS Time Seen by Provider: 05/07/18 13:56 History Source: Patient, Family Exam Limitations: Other (neurocognitive issues) - History of Present Illness Initial Comments: Patient is a 72 y/o F w/ PMHx CLL on Rituximab x 2 treatments, CHF, HTN, thalassemia, choledocholithiasis s/p ERCP and sphincterotomy c/b GIB in January , hospitalized in March w/ bacteremia c/b neurocognitive changes recently started on VPA, p/w fever measured at home and 1 episode of diarrhea. Currently on amoxicillin for infected R foot wound. Denies n/v, denies CP, SOB, dysuria, any other pain. Per daughter at bedside, no acute mental status changes. No other complaints. On presentation, febrile to 101.7, HR 119, RR 20. Was evaluated by Dr. Garcia on Wednesday and deemed to be in her USOH at that time. PCP: Sabi Jordan Oncology: Stu Garcia 05/07/18 15:04 GI: Bisi Macias 05/07/18 19:04 Past History - Travel Traveled outside of the country in the last 30 days: No Close contact w/someone who was outside of country & ill: No - Past Medical History Allergies/Adverse Reactions: Allergies Allergy/AdvReac Type Severity Reaction Status Date / Time No Known Drug Allergies Allergy Verified 02/15/18 08:23 Home Medications: Ambulatory Orders RX: Folic Acid 1 mg PO DAILY 03/31/18 RX: Pantoprazole Sodium [Protonix] 40 mg PO DAILY 03/31/18 RX: Acetaminophen [Tylenol .Regular Strength -] 650 mg PO Q6H PRN tablet RX: Allopurinol [Zyloprim -] 300 mg PO DAILY #90 tablet 04/13/18 RX: Amox-Tr/K Cl [Augmentin 875-125mg Tablet -] 1 tab PO BID@0800,1730 #14 tablet 04/13/18 RX: Divalproex Sprinkle [Depakote Sprinkle -] 125 mg PO BID #180 cap.sprink RX: predniSONE [Deltasone -] 20 mg PO DAILY #30 tablet 04/13/18 Anemia: Yes (THALASSEMIA) Cancer: (Yes; CLL 2013) Cardiac Disorders: (CHF) COPD: No CHF: No Disorders: Yes (RENAL CALCULI) HTN: Yes - Immunization History Immunization Up to Date: Yes - Suicide/Smoking/Psychosocial Hx Smoking Status: No Smoking History: Never smoked Have you smoked in the past 12 months: No Number of Cigarettes Smoked Daily: 0 Information on smoking cessation initiated: No Hx Alcohol Use: No Drug/Substance Use Hx: No Substance Use Type: None Hx Substance Use Treatment: No Review of Systems - Review of Systems Comments:: As per HPI 05/07/18 15:14 *Physical Exam - Vital Signs Last Vital Signs Temp Pulse Resp BP Pulse Ox 101.7 F H 119 H 20 146/76 92 L 05/07/18 13:54 05/07/18 13:54 05/07/18 13:54 05/07/18 13:54 05/07/18 13:54 - Physical Exam Comments: Gen: frail-appearing woman denying any complaints, chronic mildly confusional state' HEENT: NC/AT, PERRLA, EOMI, dry MM Neck: supple, NT, no LAD, no JVD CV: tachycardic no m/r/g Resp: borderline tachypneic, poor inspiratory effort, no adventitious sounds appreciated Abd: +bs, soft, NT, ND Ext: 2+ pulses, wwp, well-healing wound on R foot 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, 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, 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 w/o focal deficit 05/07/18 15:21 Moderate Sedation - Procedure Monitoring Vital Signs: Procedure Monitoring Vital Signs Temperature 101.7 F H 05/07/18 13:54 Pulse Rate 119 H 05/07/18 13:54 Respiratory Rate 20 05/07/18 13:54 Blood Pressure 146/76 05/07/18 13:54 O2 Sat by Pulse Oximetry (%) 92 L 05/07/18 13:54 ED Treatment Course - LABORATORY CBC & Chemistry Diagram: 05/07/18 15:17 05/07/18 15:17 - RADIOLOGY Radiology Studies Ordered: Category Date Time Status CHEST X-RAY PORTABLE* [RAD] Stat Radiology 05/07/18 14:36 Ordered Medical Decision Making - Medical Decision Making Symptoms themselves are not alarming, however given fever, tachycardia, tachypnea, immunosuppressed state, recent intervention for choledocholithiasis, ordering the following: sepsis w/u + lipase, empiric vancomycin and Zosyn, 500cc LR, IV tylenol. Will contact Dr. Jordan and Dr. Garcia with results of w/ u. 05/07/18 15:25 EKG NSR w/o acute changes. CXR w/o acute pathology. 05/07/18 15:29 INR 1.18, VBG 7.4/48.1/21/29.5. 05/07/18 15:41 WBC 4, H/H 10.8/31.2 at or better than baseline. 05/07/18 15:43 BMP wnl. Troponin and lipase negative. Isolated new hyperbilirubinemia. 05/07/18 15:54 D/w Dr. Jordan. Will admit to med/surg inpatient. Ordering CT A?P w/ contrast. Consulting Dr. Garcia and Dr. Macias. 05/07/18 16:13 Direct bilirubin 0.4. 05/07/18 16:42 UA: +nitrite, 3+LE, 405 WBC; Pt already received empiric ABx. 05/07/18 16:44 CT a/p: 1) colitis, 2) small bowel mesenteric nodes mets vs. reactive, 3) renal staghorn calculus, 4) cholelithiasis, 5) multiple retroperitoneal and pelvic nodes, 6) b/l renal cortical scarring 05/07/18 19:05 Ordering C Diff studies. 05/07/18 19:07 *DC/Admit/Observation/Transfer Diagnosis at time of Disposition: Hyperbilirubinemia Fever Qualifiers: Fever type: unspecified Qualified Code(s): R50.9 - Fever, unspecified UTI (urinary tract infection) Qualifiers: Urinary tract infection type: site unspecified Hematuria presence: without hematuria Qualified Code(s): N39.0 - Urinary tract infection, site not specified - Discharge Dispostion Condition at time of disposition: Guarded - Referrals - Patient Instructions - Post Discharge Activity
[2018-05-07 15:28] LABS: VENOUS PC02 48.1 mmHg (38-52); VENOUS PH 7.4 (7.32-7.42)
[2018-05-07 15:38] LABS: BASO % 1.4 % (0-2.0); EOS % 2.8 % (0-4.5); HEMATOCRIT 31.2 % (32.4-45.2); HEMOGLOBIN 10.8 GM/dL (10.7-15.3); LYMPH % 18.1 % (8-40); MCH 28.5 pg (25.7-33.7); MCHC 34.5 g/dl (32.0-36.0); MEAN CELL VOLUME 82.7 fl (80-96); MEAN PLT VOLUME 9.2 fl (7.5-11.1); MONO % 3.8 % (3.8-10.2); NEUT % 73.9 % (42.8-82.8); PLATELET COUNT 212 K/MM3 (134-434); RBC 3.77 M/mm3 (3.60-5.2); RDW 17.2 % (11.6-15.6)
[2018-05-07 15:40] LABS: INR 1.18 (0.83-1.09); PROTHROMBIN TIME (PATIENT) 13.9 SEC (9.7-13.0)
[2018-05-07 15:42] LABS: ACTIVATED PTT 25.3 SECONDS (25.2-36.5)
[2018-05-07 15:47] LABS: ALK PHOS 67 U/L (45-117); ANION GAP 7 MMOL/L (8-16); BLOOD UREA NITROGEN 18 mg/dL (7-18); CALCIUM 9.4 mg/dL (8.5-10.1); CHLORIDE 100 mmol/L (98-107); CO2 29 mmol/L (21-32); CREATININE 1.2 mg/dL (0.55-1.3); GLUCOSE,RANDOM 140 mg/dL (74-106); LIPASE 203 U/L (73-393); POTASSIUM 3.9 mmol/L (3.5-5.1); SGOT/AST 24 U/L (15-37); SGPT/ALT 20 U/L (13-61); SODIUM 136 mmol/L (136-145); TOT PROT 6.6 g/dl (6.4-8.2)
[2018-05-07 16:26] LABS: URINE APPEARANCE CLOUDY; URINE BILIRUBIN NEGATIVE (<2.0 mg/dL); URINE COLOR YELLOW; URINE GLUCOSE (UA) NEGATIVE (NEGATIVE); URINE KETONE NEGATIVE (NEGATIVE); URINE LEUK ESTERASE 3+ (NEGATIVE); URINE NITRITE POSITIVE (NEGATIVE); URINE PROTEIN 1+ (NEGATIVE); URINE UROBILINOGEN NEGATIVE mg/dL (0.2-1.0)
[2018-05-07 16:33] LABS: BILIRUBIN,DIRECT 0.4 mg/dL (0.0-0.2)
[2018-05-07 16:36] LABS: EPI CELLS RARE /HPF (FEW); URINE BACTERIA MANY /hpf (NONE SEEN); URINE MUCUS RARE
[2018-05-07] MEDS ORDERED: VANCOMYCIN 1 GM in D5W (PRE-DOCKED) 1,000 MG/250 ML IVPB ONE (16:43)
[2018-05-07] MEDS ORDERED: VANCOMYCIN 1 GRAM (PRE-DOCKED) 1,000 MG/250 ML BAG IVPB ONE (17:24)
[2018-05-07] MEDS: ACETAMINOPHEN 325 MG TABLET (FP) PO PRN (19:29)
[2018-05-07] MEDS ORDERED: ACETAMINOPHEN 325 MG TABLET (FP) ONE (19:31)
[2018-05-07] MEDS ORDERED: DIVALPROEX SODIUM 125 MG TABLET E.C. ONE (21:29)
[2018-05-07] MEDS: DIVALPROEX SODIUM 125 MG SPRINKLE CAPS PO SCH (21:32)
[2018-05-07] MEDS ORDERED: POTASSIUM CHLORIDE TABS 20 MEQ TABLET.ER (FP) PO ONE (23:14)
[2018-05-07] MEDS: LACTATED RINGERS SOLUTION 1,000 ML/1,000 ML INFUS.BAG IV SCH (23:21)
[2018-05-08 09:04] LABS: ALBUMIN 2.6 g/dl (3.4-5.0); ALK PHOS 55 U/L (45-117); ANION GAP 4 MMOL/L (8-16); BILIRUBIN,TOTAL 1.4 mg/dL (0.2-1); BLOOD UREA NITROGEN 19 mg/dL (7-18); CALCIUM 9.2 mg/dL (8.5-10.1); CHLORIDE 106 mmol/L (98-107); CO2 30 mmol/L (21-32); CREATININE 1.1 mg/dL (0.55-1.3); GLUCOSE,RANDOM 97 mg/dL (74-106); POTASSIUM 4.2 mmol/L (3.5-5.1); SGOT/AST 18 U/L (15-37); SGPT/ALT 14 U/L (13-61); SODIUM 140 mmol/L (136-145); TOT PROT 5.8 g/dl (6.4-8.2)
--- NOTE | 2018-05-08 09:28 | EKG ---
Test Reason : Blood Pressure : / mmHG Vent. Rate : 099 BPM Atrial Rate : 099 BPM P-R Int : 128 ms QRS Dur : 074 ms QT Int : 330 ms P-R-T Axes : 073 -61 044 degrees QTc Int : 423 ms NORMAL SINUS RHYTHM POSSIBLE LEFT ATRIAL ENLARGEMENT LEFT AXIS DEVIATION SEPTAL INFARCT , AGE UNDETERMINED ABNORMAL ECG Confirmed by Fausto Francisco MD ([id number]) on 05/08/2018 9:27:58 AM Referred By: Confirmed By:Fausto Francisco MD
[2018-05-08 09:46] LABS: EOS % 1.3 % (0-4.5); HEMATOCRIT 28.1 % (32.4-45.2); HEMOGLOBIN 9.7 GM/dL (10.7-15.3); LYMPH % 16.3 % (8-40); MCH 28.7 pg (25.7-33.7); MCHC 34.7 g/dl (32.0-36.0); MEAN CELL VOLUME 82.7 fl (80-96); MEAN PLT VOLUME 9.1 fl (7.5-11.1); NEUT % 76.4 % (42.8-82.8); RDW 16.7 % (11.6-15.6); WHITE BLOOD COUNT 3.5 K/mm3 (4.0-10.0)
[2018-05-08 09:48] LABS: PLATELET COUNT 19 K/MM3 (134-434)
[2018-05-08] MEDS ORDERED: PANTOPRAZOLE 40 MG TABLET (FP) PO SCH (10:00)
[2018-05-08 10:03] LABS: BASO % 5.1 % (0-2.0); HEMATOCRIT 28.5 % (32.4-45.2); HEMOGLOBIN 9.7 GM/dL (10.7-15.3); LYMPH % 16.7 % (8-40); MCH 28.3 pg (25.7-33.7); MCHC 34.1 g/dl (32.0-36.0); MEAN CELL VOLUME 82.8 fl (80-96); MEAN PLT VOLUME 9.2 fl (7.5-11.1); MONO % 3.7 % (3.8-10.2); NEUT % 71.5 % (42.8-82.8); RBC 3.44 M/mm3 (3.60-5.2); WHITE BLOOD COUNT 3.7 K/mm3 (4.0-10.0)
[2018-05-08] MEDS: DIVALPROEX SODIUM 125 MG SPRINKLE CAPS PO SCH ×2 (10:07→23:26)
[2018-05-08] MEDS: ALLOPURINOL 300 MG TABLET (FP) PO SCH (10:07)
[2018-05-08] MEDS: FOLIC ACID 1 MG TABLET (FP) PO SCH (10:07)
[2018-05-08 10:44] LABS: ANISOCYTOSIS 1+; MACROCYTOSIS 0; PLATELET ESTIMATE DECREASED; TEAR DROP CELLS 1+
[2018-05-08] MEDS ORDERED: PIPERACILLIN/TAZOB 3.375 GM 3.375 GM in DEXTROSE 5%-WATER - 50 ML IVPB SCH ×2 (11:00→11:15)
--- NOTE | 2018-05-08 11:06 | HP ---
Admitting History and Physical - Primary Care Physician PCP: Sabi Jordan S - Admission Chief Complaint: fever chills History of Present Illness: The patient is a 72 year old female, with a significant past medical history of HTN, CLL (not on any treatment) s/p recent acute leukemic transformation and started rituxan per ONC, last dose 5 days ago, thalassemia, anxiety, kidney stones, gallstones, admitted via ER with fever - pt's Daughter Dayana called me yesterday afternoon that pt did not feel well for few days had some chills and nausea then yesterday had 101-102 fever at home and I advised her to bring pt to ER right away. The patient was recently admitted for choledocholithiasis which subsequently got ERCP, complicated by GI bleed and multiple blood transfusions. Pt also has h/o kidney stones and hydronephrosis and refused intervention in the past. I saw pt in ER this am awake alert NAD VSS denied any c/o said she is feeling good and she wants to go home. Noted some small amt of epistaxis and gums bleed PLT noted 212K yesterday but today 19K repeat stat still 19K; d/w ER staff to order stat PLT transfusion 1 U and also to give IV ATB (Flagyl, zosyn)d/w ID dr Kothari and heme dr Velez covering dr Garcia; one set blood cx + prelim; d/w ICU dr for possible ICU admission given sepsis but given that she is hemodynamically stable regular or ONC floor was suggested (d/w 7w floor in am no beds) also of note per ER staff pt pulled out her IVs and then refused to have them reinserted - I called pt's daughter from ER d/w Dayana who spoke with pt; pt agreed to have IV line and meds and PLT as ordered History Source: Patient, Family Member, Medical Record Limitations to Obtaining History: Clinical Condition - Past Medical History Cardiovascular: Yes: HTN Gastrointestinal: Yes: Diverticulosis (on CT scan), GI Bleed (02/13 post- sphincterotomy bleed) Hepatobiliary: Yes: Cholelithiasis, Choledocholithiasis (with cholangitis 02/13 requring ERCP & sphincterotomy complicated by a post-sphincterotomy bleed ) Renal/: Yes: Renal Calculi Heme/Onc: Yes: Anemia, Cancer (CLL- had bone marrow at [facility] recently), Other ( thalassemia) Psych: Yes: Anxiety Musculoskeletal: Yes: Chronic low back pain - Past Surgical History Past Surgical History: Yes: Tonsillectomy, Upper Endoscopy - Smoking History Smoking history: Never smoked Have you smoked in the past 12 months: No Aproximately how many cigarettes per day: 0 - Alcohol/Substance Use Hx Alcohol Use: No History of Substance Use: reports: None - Social History Usual Living Arrangement: Yes: Alone ADL: Independent 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 of Recent Travel: No Home Medications - Allergies Allergies/Adverse Reactions: Allergies Allergy/AdvReac Type Severity Reaction Status Date / Time No Known Drug Allergies Allergy Verified 02/15/18 08:23 - Home Medications Home Medications: Ambulatory Orders Folic Acid 1 mg PO DAILY 03/31/18 Pantoprazole Sodium [Protonix] 40 mg PO DAILY 03/31/18 Allopurinol [Zyloprim -] 300 mg PO DAILY #90 tablet 04/13/18 Amlodipine Besylate 2.5 mg PO DAILY 05/07/18 Family Disease History - Family Disease History Family Disease History: Other: Father (in his 80's pneumonia), Mother ( age 93 of CVA hemorrhage) Review of Systems - Review of Systems Constitutional: reports: Chills, Diaphoresis, Fever, Weakness Eyes: denies: Blind Spots, Blurred Vision, Double Vision Cardiovascular: denies: Chest Pain, Shortness of Breath Respiratory: denies: Cough, SOB Gastrointestinal: reports: Nausea. denies: Abdominal Pain, Constipation, Diarrhea, Rectal Bleeding, Vomiting, Vomiting Blood Musculoskeletal: denies: Back Pain, Joint Swelling Integumentary: denies: Blister, Bruising Neurological: denies: Tremors Hematology/Lymphatic: denies: Easily Bruised, Excessive Bleeding Psychiatric: denies: Anxiety, Depression Physical Examination Vital Signs: Vital Signs Temperature 99.5 F 05/08/18 11:01 Pulse Rate 66 05/08/18 07:01 Respiratory Rate 24 H 05/08/18 07:01 Blood Pressure 111/64 05/08/18 07:01 O2 Sat by Pulse Oximetry (%) 97 05/08/18 07:10 Constitutional: Yes: Anxious Eyes: Yes: Conjunctiva Clear HENT: Yes: Atraumatic Neck: Yes: Supple Cardiovascular: Yes: Regular Rate and Rhythm Respiratory: Yes: CTA Bilaterally Gastrointestinal: Yes: Soft. No: Tenderness Renal/: No: CVA Tenderness - Left, CVA Tenderness - Right, Hematuria Musculoskeletal: No: Joint Stiffness, Joint Swelling Extremities: No: Cold, Cool, Cyanosis Edema: No Integumentary: No: Rash, Venous Stasis Changes Neurological: Yes: WNL, Alert, Oriented ...Motor Strength: WNL Psychiatric: Yes: WNL, Alert, Oriented. No: Agitated, Suicidal Ideation Labs: CBC, BMP 05/08/18 09:50 05/08/18 08:35 Imaging - Results Chest X-ray: Report Reviewed Cat Scan: Report Reviewed Other: Report Reviewed Assessment/Plan The patient is a 72 year old female, with a significant past medical history of HTN, CLL (not on any treatment), thalassemia, anxiety, kidney stones, gallstones , admitted with fever. The patient was recently admitted for choledocholithiasis which subsequently got ERCP, complicated by GI bleed. Possible colitis and positive gallstones on prelim abdomen CT scan dropping PLT s/p recent rituxan; sepsis positive blood cx IV antibiotics; d/wID dr Kothari transfuse PLT and heme eval today d/w dr Velez GI eval no SQ heparinfor DVT b/o dropping PLT risk bleed ENT eval for epistaxis; correct PLT f/u labs, CX d/wpt donot get OOB alone, falls risks; call staff if needs OOB - she understood prognosis guarded d/w pt and daughter t time 90 min
[2018-05-08 11:27] LABS: PLATELET COUNT 19 K/MM3 (134-434)
[2018-05-08] MEDS ORDERED: PIPERACILLIN/TAZOB 3.375 GM 3.375 GM/50 ML BAG IVPB ONE (11:41)
[2018-05-08] MEDS ORDERED: VANCOMYCIN 1,000 MG in DEXTROSE 5%-WATER - 250 ML IVPB ONE (11:52)
[2018-05-08 12:00] LABS: ANISOCYTOSIS 1+; MACROCYTOSIS 0; PLATELET ESTIMATE DECREASED; TEAR DROP CELLS 1+
[2018-05-08] MEDS ORDERED: VANCOMYCIN 1 GRAM (PRE-DOCKED) 1,000 MG/250 ML BAG IVPB ONE (12:05)
--- NOTE | 2018-05-08 12:28 | CON.GI ---
Consult Consult Specialty:: GI: Dr. Jordan covering for Dr. Macias who resumes care Referred by:: Dr. Sabi Jordan Reason for Consultation:: Elevated bilirubin - History of Present Illness Chief Complaint: Patient denies any complaints. The ER note states admission for fever History of Present Illness: 72F is admitted to evaluate fever and cough. This is per the ER admit note. She denies any complaints. She has no GI complaints . Tracy is well known to Dr. Macias from her recent hospitalizations. She was admitted on 01/2018 with obstructive jaundice due to choledocholithiasis and cholangitis. He removed a stone from the CBD after doing a sphincterotomy on 02/21/18. She has anemia and thrombocytopenia related to her CLL and developed a post- sphincterotomy bleed at that time for which he preformed an EGD on 02/25/2018. She required epinephrine injection and heater probe cautery to control the hemorrhage. Despite this she developed rebleeding and was transferred to [facility] with the intention of having a expandible metallic stent placed to tamponade the bleeding source. During the transfer, it appears as though Dr. Morris Dudley performed an EGD and endoclipped a visible vessel at the sphincterotomy site. She did not had any further bleeding or recurrence of jaundice. She was seen in Dr. Macias's office in 2013 and 09/13 but declined colonoscopy each time. She was last seen by Dr. Macias during a 04/16 when she was admitted for fever and cough. He felt that a CT scan at that time was not indicative of a sigmoid diverticulitis. She refused a follow-up colonoscopy at that time as well. Called now to evaluate hyperbilirubinemia. In review of the [employer] system, she has had mild hyperbilirubinemia from at least 2012. In 2012 she had a total bilirubin of 2.1 with direct of 0.4. It appears as though her hyperbilirubinemia as been predominantly indirect. - Past Medical History Cardio/Vascular: Yes: HTN Gastrointestinal: Yes: Diverticulosis (on CT scan), GI Bleed (02/13 post- sphincterotomy bleed), Other Hepatobiliary: Yes: Cholelithiasis, Choledocholithiasis (with cholangitis 02/13 requring ERCP & sphincterotomy complicated by a post-sphincterotomy bleed ) Renal/: Yes: Renal Calculi Psych: Yes: Anxiety Musculoskeletal: Yes: Chronic low back pain - Past Surgical History Past Surgical History: Yes: Tonsillectomy, Upper Endoscopy - Alcohol/Substance Use Hx Alcohol Use: No History of Substance Use: reports: None - Smoking History Smoking history: Never smoked Have you smoked in the past 12 months: No Aproximately how many cigarettes per day: 0 - Social History Usual Living Arrangement: With Child ADL: Independent 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 of Recent Travel: No Home Medications - Allergies Allergies/Adverse Reactions: Allergies Allergy/AdvReac Type Severity Reaction Status Date / Time No Known Drug Allergies Allergy Verified 02/15/18 08:23 - Home Medications Home Medications: Ambulatory Orders Folic Acid 1 mg PO DAILY 03/31/18 Pantoprazole Sodium [Protonix] 40 mg PO DAILY 03/31/18 Allopurinol [Zyloprim -] 300 mg PO DAILY #90 tablet 04/13/18 Amlodipine Besylate 2.5 mg PO DAILY 05/07/18 Family Disease History - Family Disease History Family Disease History: Other: Father (in his 80's pneumonia), Mother ( age 93 of CVA hemorrhage) Review of Systems - Review of Systems Constitutional: denies: Chills, Unintentional Wgt. Loss Gastrointestinal: denies: Abdominal Pain, Constipation, Diarrhea, Nausea, Rectal Bleeding, Vomiting Physical Exam-GI Vital Signs: Vital Signs Temperature 99.5 F 05/08/18 1100 Pulse Rate 94 05/08/18 1100 Respiratory Rate 20 H 05/08/18 1100 Blood Pressure 142/72 05/08/18 1100 O2 Sat by Pulse Oximetry (%) 97 on RA 05/08/18 1100 Constitutional: Yes: Calm Eyes: No: Sclera Icterus Cardiovascular: Yes: Regular Rate and Rhythm Respiratory: Yes: Diminished (at bases b/l with poor insp effort) Gastrointestinal Inspection: No: Ascites, Distention, Scars ...Auscultate: Yes: Normoactive Bowel Sounds ...Palpate: No: Tenderness Edema: Yes Edema: LLE: 1+, RLE: 1+ Neurological: Yes: Alert Labs: CBC, BMP 05/08/18 09:50 05/08/18 08:35 Hepatic Panel Total Bilirubin 1.4 mg/dL (0.2-1) H 05/08/18 08:35 Direct Bilirubin 0.4 mg/dL (0.0-0.2) H 05/07/18 15:17 AST 18 U/L (15-37) 05/08/18 08:35 ALT 14 U/L (13-61) 05/08/18 08:35 Alkaline Phosphatase 55 U/L (45-117) 05/08/18 08:35 Albumin 2.6 g/dl (3.4-5.0) L 05/08/18 08:35 Imaging - Results Cat Scan: Report Reviewed (Read by Dr. Zurita: Staghorn calculus, interval development of a 2.3cm mesenteric mass in mid abdomen, ? thickening of asc/desc/ sig colon, "cannot exclude diverticulitis".) Problem List - Problems (1) Hyperbilirubinemia Assessment/Plan: present from 2012 and predominantly indirect. ? component of Gilbert's, ? component of Hemolysis I do not think this finding is contributory to current clinical picture. heme eval Code(s): E80.6 - OTHER DISORDERS OF BILIRUBIN METABOLISM (2) Colonic thickening Assessment/Plan: Do not suspect CT scan findings of the colon are contributing to current clinical picture. suspect underdistention with overreading and UTI contributiong to fevers. On IV Abx. No abdominal pain, diarrhea history or rectal bleeding reported. If diarrhea develops, check stool for C. Diff. Has been offered colonoscopy for follow-up multiple times in the past and had declined. Code(s): K63.9 - DISEASE OF INTESTINE, UNSPECIFIED (3) Mesenteric mass Assessment/Plan: Oncology evaluation Code(s): K63.9 - DISEASE OF INTESTINE, UNSPECIFIED
[2018-05-08] MEDS ORDERED: ACETAMINOPHEN 325 MG TABLET (FP) ONE (13:52)
[2018-05-08] MEDS: ACETAMINOPHEN 325 MG TABLET (FP) PO PRN (13:52)
[2018-05-08 15:21] VITALS: BMI 16.9
--- NOTE | 2018-05-08 16:18 | PN ---
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 (short form) - Note 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: ID CONSULT DICTATED STREPTOCOCCAL BACTEREMIA/ SEPSIS ? SKIN SOURCE (RECENT CELLULITIS) ? BILIARY TRACT ? ? LUNG THROMBOCYTOPENIA WITH EPISTAXIS/ MELENA ? DIC COLITIS BY CT R/O C DIFF CHOLELITHIASIS CLL S/P RITUXAN 2/ AWAIT C/S OBTAIN STOOL C DIFF EMPIRIC VANCOMYCIN/ ZOSYN TRANSFUSE PLT ENT EVALUATION DISCUSSED WITH HEM ONC
--- NOTE | 2018-05-08 16:50 | CONS ---
INFECTIOUS DISEASE CONSULTATION DATE OF CONSULTATION: DATE OF DICTATION: 05/08/2018 The patient is a 72-year-old female with history of CLL, evaluated for sepsis. Patient was admitted from home with a 1-day history of fever and diarrhea. Patient has had multiple recent hospital admissions. She was last discharged on April 13, 2018. She was recently being treated for a right lower extremity cellulitis with amoxicillin. She developed fever to 101.7 at home and loose bowel movements. She was taken to the emergency room where the patient was noted to have fever of 102, was tachycardic, and tachypneic. CAT scan of the abdomen and pelvis showed changes consistent with colitis as well as known cholelithiasis and retroperitoneal adenopathy. She also has a known renal staghorn calculus. Blood cultures are now positive for gram-positive cocci in pairs and chains. Her course has been complicated by precipitous drop in her platelet count with epistaxis and gastrointestinal bleeding. She is being seen in consultation by Hematology and being transfused platelets. At the present time, the patient is supine in bed. She has no complaints. She denies any abdominal pain. The epistaxis has stopped for now. No reports of labored breathing, cough, sputum production, vomiting. Denies dysuria or hematuria. No complaints of right leg pain. Patient has had a complicated recent past medical history. She was hospitalized in January of this year for choledocholithiasis. She had undergone an ERCP with sphincterotomy. It was complicated by bleeding at the sphincterotomy site. She required transfer to [facility] for control of the bleeding. The patient received first dose of Rituxan on April 26, 2018, and received a second dose on May 03. PAST MEDICAL HISTORY: As above, includes CLL, hypertension, nephrolithiasis, cholelithiasis, congestive heart failure. ALLERGIES: No known allergies. MEDICATIONS: Folic acid, Protonix, allopurinol, amlodipine. 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 She lives at home. She is a nonsmoker, nondrinker. SYSTEMS REVIEW: Neurologic: No loss of consciousness, seizure activity, focal weakness. Cardiac: Negative chest pain or palpitations. Respiratory: Negative cough or sputum production. Gastrointestinal: As per HPI. Genitourinary: Negative for dysuria or hematuria. LABORATORY DATA: White count 3.7; neutrophils 71, bands 5, lymphocytes 16; hematocrit 28.5; platelet count 19. BUN 19, creatinine 1.1. Total bilirubin 1.4, alkaline phosphatase 55, AST 18. Urinalysis: White cells 405. Blood cultures: Gram positive cocci in pairs and chains. Chest x-ray shows pulmonary nodules. No acute infiltrate. PHYSICAL EXAMINATION: General: She is chronically ill appearing. Vital Signs: Temperature 101.7, T-max 102; blood pressure 119/58; pulse 87, regular; respirations 20 per minute. HEENT: Sclerae are anicteric. There is clotted blood at the nares. Neck: Supple. Heart: Sounds S1, S2. A 2/6 hinson systolic murmur. Lungs: A few rhonchi. Poor inspiratory effort. Abdomen: Soft. No tenderness elicited. No mass, rebound, or rigidity. Extremities: Negative for edema. There is a small area of erythema present on the right foot corresponding to the previous area of cellulitis. IMPRESSION: 1. Streptococcal bacteremia/sepsis. 2. Thrombocytopenia with epistaxis and gastrointestinal bleeding, rule out disseminated intravascular coagulopathy. 3. Colitis by CAT scan, rule out Clostridium difficile. 4. Cholelithiasis. 5. Urinary tract infection. 6. Chronic lymphocytic leukemia status post recent Rituxan. Several potential sources for strep bacteremia including skin source (recent cellulitis), biliary tract, urinary tract infection, and possible lung source. Await cultures, obtain stool C. difficile, empiric antibiotic coverage with vancomycin and Zosyn. Transfuse platelets. Case was discussed with family law attorney. ENT evaluation. Prognosis is guarded. Case discussed with patient's daughter present at the time of the examination. Thank you for the kind referral. JUNI CANO M.D. MARY [id number]
[2018-05-08 17:26] LABS: HEMATOCRIT 25.6 % (32.4-45.2); HEMOGLOBIN 8.7 GM/dL (10.7-15.3); MCHC 33.9 g/dl (32.0-36.0); MEAN CELL VOLUME 82.4 fl (80-96); MEAN PLT VOLUME 9.2 fl (7.5-11.1); RDW 17.2 % (11.6-15.6); WHITE BLOOD COUNT 3.4 K/mm3 (4.0-10.0)
[2018-05-08 17:39] LABS: INR 1.17 (0.83-1.09); PLATELET COUNT 17 K/MM3 (134-434); PROTHROMBIN TIME (PATIENT) 13.8 SEC (9.7-13.0)
[2018-05-08 17:42] LABS: ACTIVATED PTT 24.4 SECONDS (25.2-36.5)
[2018-05-08] MEDS ORDERED: PIPERACILLIN/TAZOBACTAM 3.375 GM VIAL IVPB ONE (18:03)
[2018-05-08] MEDS ORDERED: DEXTROSE 5%-WATER - 50 ML IVPB ONE (18:03)
[2018-05-08] MEDS: PIPERACILLIN/TAZOB 3.375 GM 3.375 GM in DEXTROSE 5%-WATER - 50 ML IVPB SCH (18:07)
[2018-05-08] MEDS: VANCOMYCIN 1 GRAM (PRE-DOCKED) 1,000 MG/250 ML BAG IVPB SCH (18:39)
--- NOTE | 2018-05-08 18:41 | CONSULT ---
Consult Consult Specialty:: hematology Referred by:: Dr. Jordan Reason for Consultation:: CLL, thrombocytopenia - History of Present Illness Chief Complaint: Fever History of Present Illness: 72F with HTN, choledocholithiasis, hx UGIB, CLL (recently started on Rituxan, s/ p 2 doses so far) admitted yesterday with fever, nausea, diarrhea. Found to have gram + bacteremia. Started on broad spectrum Abx. Plt count 212 yesterday, dropped to 19 today. Has had epistaxis and gum bleeding. Per nurse, bloody diaper was also noted. Received 1 u SDP this afternoon with repeat plt count 17 about an hour later. - Past Medical History Cardio/Vascular: Yes: HTN Gastrointestinal: Yes: Diverticulosis (on CT scan), GI Bleed (02/13 post- sphincterotomy bleed) Hepatobiliary: Yes: Cholelithiasis, Choledocholithiasis (with cholangitis 02/13 requring ERCP & sphincterotomy complicated by a post-sphincterotomy bleed ) Renal/: Yes: Renal Calculi Psych: Yes: Anxiety Musculoskeletal: Yes: Chronic low back pain - Past Surgical History Past Surgical History: Yes: Tonsillectomy, Upper Endoscopy - Alcohol/Substance Use Hx Alcohol Use: No History of Substance Use: reports: None - Smoking History Smoking history: Never smoked Have you smoked in the past 12 months: No Aproximately how many cigarettes per day: 0 - Social History Usual Living Arrangement: With Child ADL: Independent 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 of Recent Travel: No Home Medications - Allergies Allergies/Adverse Reactions: Allergies Allergy/AdvReac Type Severity Reaction Status Date / Time No Known Drug Allergies Allergy Verified 02/15/18 08:23 - Home Medications Home Medications: Ambulatory Orders Folic Acid 1 mg PO DAILY 03/31/18 Pantoprazole Sodium [Protonix] 40 mg PO DAILY 03/31/18 Allopurinol [Zyloprim -] 300 mg PO DAILY #90 tablet 04/13/18 Amlodipine Besylate 2.5 mg PO DAILY 05/07/18 Family Disease History - Family Disease History Family Disease History: Other: Father (in his 80's pneumonia), Mother ( age 93 of CVA hemorrhage) Review of Systems - Review of Systems Constitutional: reports: Fever, Weakness Cardiovascular: reports: No Symptoms Respiratory: reports: No Symptoms Gastrointestinal: reports: Rectal Bleeding Hematology/Lymphatic: reports: Excessive Bleeding Physical Exam Vital Signs: Vital Signs Temperature 98.1 F 05/08/18 15:07 Pulse Rate 87 05/08/18 15:07 Respiratory Rate 20 05/08/18 15:57 Blood Pressure 119/58 L 05/08/18 15:07 O2 Sat by Pulse Oximetry (%) 94 L 05/08/18 15:57 Constitutional: Yes: No Distress, Calm Eyes: Yes: Conjunctiva Clear HENT: Yes: Atraumatic, Normocephalic, Other (+signs of recent gingival bleeding and dry blood around nostrils) Cardiovascular: Yes: Regular Rate and Rhythm Respiratory: Yes: CTA Bilaterally Gastrointestinal: Yes: WNL, Soft Edema: No Neurological: Yes: Alert Labs: CBC, BMP 05/08/18 17:00 05/08/18 08:35 Imaging - Results Cat Scan: Report Reviewed Assessment/Plan 72F with HTN, choledocholithiasis, hx UGIB, CLL (recently started on Rituxan) admitted yesterday with fever and diarrhea. Found to have gram + bacteremia. Hematology consulted for precipitous drop in plt count (212 yesterday to 19 today) with no increase after 1 u SDP. Has had epistaxis, gum bleeding, ? rectal bleeding. Peripheral smear confirms thrombocytopenia, no plt clumps, anisopoikilocytosis, rare fragments, PMNs and bands with toxic granulations, no immature forms. Most likely acute thrombocytopenia is 2/2 sepsis/bacteremia. Repeat labs with worsening anemia but no e/o DIC so far (normal coags and fibrinogen). Would transfuse another unit of plts, given bleeding, though response is likely to be blunted in setting of consumption due to sepsis. Please monitor for GI bleeding with regular exams and CBC Q6H. Repeat coags and fibrinogen in the morning. Will continue to follow closely.
[2018-05-08] MEDS ORDERED: PANTOPRAZOLE SODIUM 40 MG VIAL IVPB STA (19:12)
--- NOTE | 2018-05-08 19:22 | PN ---
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 (short form) - Note 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: Called by nurse that Ms. Rosas vomited a blood clot. has been having reported epistaxis and gum bleeding. ? ingested blood.advised NPO, keep platelets >50k, notify hematology,transfer to icu for closer monotoring, protonix drip. May need ent evaluation as well and may need repeat egd.. Had recent egd/ercp . doubt recurrent rebleeding from sphincterotomy site this far out. Problem List - Problems (1) Hyperbilirubinemia Code(s): E80.6 - OTHER DISORDERS OF BILIRUBIN METABOLISM (2) Colonic thickening Code(s): K63.9 - DISEASE OF INTESTINE, UNSPECIFIED (3) Mesenteric mass Code(s): K63.9 - DISEASE OF INTESTINE, UNSPECIFIED
--- NOTE | 2018-05-08 19:42 | PN ---
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 (short form) - Note 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: I was called around 7 pm by floor nurse pt developed new GI bleed (coughed up some blood and had diarrhea with clots) she received 1 U PLT but repeat PLT 17K Hg 8; I ordered stat PLT 1 U and 3 U PRBC and I called [facility] imaging technician to transfer pt to ICU (I also spoke with him this morning but there were no beds available in ICU) - I also asked ICU dr Saucedo who accepted pt to ICU - will arrange to have her transferred to ICU tonight (d/w floor nurse on 8w) GI dr Alfaro was recalled; ordered IV PPI, NPO I dw heme dr Velez who agreed with PLT and PRBC and transfer to ICU; would hold off FFP for now seen by GI, ID and hematology;received IV ATB as ordered. d/w Dayana pt's daughter / phone about pt's condition, very guarded prognosis - she wants everything done and she understands pt's condition
[2018-05-08] MEDS: PANTOPRAZOLE SODIUM 80 MG in SODIUM CHLORIDE 100 ML IVPB SCH (23:13)
[2018-05-09] MEDS ORDERED: DEXTROSE 5%-WATER - 50 ML IVPB ONE ×2 (04:00→09:53)
[2018-05-09] MEDS ORDERED: PIPERACILLIN/TAZOBACTAM 3.375 GM VIAL IVPB ONE ×2 (04:00→09:53)
[2018-05-09] MEDS: PIPERACILLIN/TAZOB 3.375 GM 3.375 GM in DEXTROSE 5%-WATER - 50 ML IVPB SCH ×3 (04:05→17:59)
[2018-05-09] MEDS: VANCOMYCIN 1 GRAM (PRE-DOCKED) 1,000 MG/250 ML BAG IVPB SCH ×2 (05:28→15:32)
--- NOTE | 2018-05-09 06:31 | RAPID ---
Physical Examination Vital Signs: Vital Signs Temperature 98.5 F 05/08/18 22:25 Pulse Rate 92 H 05/08/18 22:25 Respiratory Rate 20 05/08/18 22:25 Blood Pressure 133/62 05/08/18 22:25 O2 Sat by Pulse Oximetry (%) 95 05/08/18 21:00 Labs: CBC, BMP 05/08/18 17:00 05/08/18 08:35 Rapid Response - Rapid Response Assessment: rapid response was called: patient had profuse epistaxis bleeding - patient has known history of CLL- latest platelet count was 17K ; sje already receieved 3 units of platelets- Bp 130/83 HR105 spo2 100 percent lungs: cta b/l cor RRR consulted dr patino- gildardo coags; stat repeat CBC if platelets less than 100k- give another 1 unit of platelets; consult ENT primary dr heri herrera was called- she wants patient in ICU as soon as bed available
--- NOTE | 2018-05-09 08:42 | PN ---
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 (short form) - Note 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: Patient seen and examined Episode of epistaxis and possible GI bleed ( vs. coughing up blood swallowed from epistasis) Thrombocytopenia acutely - related to sepsis , +/_ autommune . Lack of response to transfused platelets suggests consumption which may be secondary to sepsis vs. autoimmune. Seen by ENT - no current active bleeding so decision not to pack nose Last Vital Signs Temp Pulse Resp BP Pulse Ox 98.5 F 107 H 20 130/57 L 95 05/09/18 06:00 05/09/18 06:00 05/09/18 06:00 05/09/18 06:00 05/08/18 21:00 HEENT: FELIBERTO, EOM Intact Oropharynx: No thrush, No mucositis, dried blood in oral cavity Neck: Supple Nodes: Without adenopathy Breasts: Without masses Cor: RSR, No murmurs, No gallops Lungs: bronchial breath sounds and rhonchi Abd: Soft, Normal bowel sounds, No organomegaly Ext:No significant edema Skin: No rashes, Integument intact CBC, BMP 05/08/18 17:00 05/08/18 08:35 Current Medications Generic Name Dose Route Start Last Admin Trade Name Freq PRN Reason Stop Dose Admin Acetaminophen 650 mg 05/07/18 16:42 05/08/18 13:52 Tylenol - PO 650 mg Q6H PRN Administration FEVER Allopurinol 300 mg 05/08/18 10:00 05/08/18 10:07 Zyloprim - PO 300 mg DAILY RYAN Administration Chlorhexidine Gluconate 1 applic 05/08/18 22:00 Hibiclens For Decolonization - TP HS RYAN Divalproex Sodium 125 mg 05/07/18 22:00 05/08/18 23:26 Depakote Sprinkle Caps - PO 125 mg BID RYAN Administration Folic Acid 1 mg 05/08/18 10:00 05/08/18 10:07 Folic Acid - PO 1 mg DAILY RYAN Administration Lactated Ringer's 1,000 ml in 1,000 mls @ 75 mls/hr 05/07/18 23:30 05/07/18 23:21 Lactated Ringers Solution IV 75 mls/hr ASDIR RYAN Administration Metronidazole 500 mg in 100 mls @ 100 mls/hr 05/08/18 11:00 05/09/18 01:08 Flagyl 500mg Premixed Ivpb - IVPB 100 mls/hr Q8H-IV RYAN Administration Piperacillin Sod/Tazobactam 50 mls @ 100 mls/hr 05/08/18 18:00 05/09/18 04:05 Sod 3.375 gm/ Dextrose IVPB 100 mls/hr Q8H-IV RYAN Administration Protocol Vancomycin HCl 1,000 mg in 250 mls @ 166.667 mls/hr 05/08/18 16:00 05/09/18 05:28 Vancomycin (Pre-Docked) IVPB 166.667 mls/hr Q12H RYAN Administration Protocol Pantoprazole Sodium 80 mg/ 100 mls @ 10 mls/hr 05/08/18 19:15 05/08/18 23:13 Sodium Chloride IVPB 10 mls/hr Q10H RYAN Administration 8 MG/HR Mupirocin 1 applic 05/08/18 22:00 Bactroban Ointment (For Decolonization) - NS 05/13/18 21:59 BID RYAN Impression: CLL Throbocytopenia - sepsis +/_ autoimmune thrombocytopenia Epistaxis ? GI bleeding vs coughing up swallowed blood S/P Rituxin x 2 Decision not to pack nose per ENT + blood cultures - presumed sepsis --?? source Normal coagulation studies and fibrinogen - against DIC Plan:: Transfuse platelet - if possibe to > 50K or higher Begin Medrol Begin protonix Maintain Hb > 8.0 gm % Continue antibiotics per ID Monitor Coagulation studies Blood products prn Transfer to ICU when feasible
--- NOTE | 2018-05-09 08:44 | PN ---
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, Physician Chief Complaint: still on 8w no bed in ICU VSS but dropping PLT despite PLT transfusion has some arms bruises; pulled out IVs d/w pt and daughter the importance to keep IVs in to prevent disruption of treatment pt in bed awake alert NAD denies any c/o said she feels fine - Current Medication List Current Medications: Active Medications Acetaminophen (Tylenol -) 650 mg PO Q6H PRN PRN Reason: FEVER Last Admin: 05/08/18 13:52 Dose: 650 mg Allopurinol (Zyloprim -) 300 mg PO DAILY RYAN Last Admin: 05/08/18 10:07 Dose: 300 mg Chlorhexidine Gluconate (Hibiclens For Decolonization -) 1 applic TP HS [facility] Divalproex Sodium (Depakote Sprinkle Caps -) 125 mg PO BID RYAN Last Admin: 05/08/18 23:26 Dose: 125 mg Folic Acid (Folic Acid -) 1 mg PO DAILY RYAN Last Admin: 05/08/18 10:07 Dose: 1 mg Lactated Ringer's (Lactated Ringers Solution) 1,000 ml in 1,000 mls @ 75 mls/ hr IV ASDIR RYAN Last Admin: 05/07/18 23:21 Dose: 75 mls/hr Metronidazole (Flagyl 500mg Premixed Ivpb -) 500 mg in 100 mls @ 100 mls/hr IVPB Q8H-IV RYAN Last Admin: 05/09/18 01:08 Dose: 100 mls/hr Piperacillin Sod/Tazobactam (Sod 3.375 gm/ Dextrose) 50 mls @ 100 mls/hr IVPB Q8H-IV RYAN; Protocol Last Admin: 05/09/18 04:05 Dose: 100 mls/hr Vancomycin HCl (Vancomycin (Pre-Docked)) 1,000 mg in 250 mls @ 166.667 mls/hr IVPB Q12H RYAN; Protocol Last Admin: 05/09/18 05:28 Dose: 166.667 mls/hr Pantoprazole Sodium 80 mg/ (Sodium Chloride) 100 mls @ 10 mls/hr IVPB Q10H RYAN Last Admin: 05/08/18 23:13 Dose: 10 mls/hr Methylprednisolone Sodium Succinate (Solu-Medrol -) 60 mg IVPB ONCE STA Stop: 05/09/18 08:43 Mupirocin (Bactroban Ointment (For Decolonization) -) 1 applic NS BID RYAN Stop: 05/13/18 21:59 - Objective Vital Signs: Vital Signs Temperature 98.5 F 05/09/18 06:00 Pulse Rate 107 H 05/09/18 06:00 Respiratory Rate 20 05/09/18 06:00 Blood Pressure 130/57 L 05/09/18 06:00 O2 Sat by Pulse Oximetry (%) 95 05/08/18 21:00 Constitutional: Yes: No Distress, Calm Eyes: Yes: Conjunctiva Clear HENT: Yes: Atraumatic Neck: Yes: Supple Cardiovascular: Yes: Regular Rate and Rhythm Respiratory: Yes: CTA Bilaterally Gastrointestinal: Yes: Soft. No: Tenderness Genitourinary: No: Hematuria Musculoskeletal: No: Joint Stiffness, Joint Swelling Extremities: No: Calf Tenderness, Cold, Cool, Cyanosis Edema: No Integumentary: Yes: Bruising. No: Rash, Venous Stasis Changes Neurological: Yes: WNL, Alert, Oriented ...Motor Strength: WNL Psychiatric: Yes: WNL, Alert, Oriented. No: Agitated, Suicidal Ideation Labs: CBC, BMP 05/08/18 17:00 05/08/18 08:35 INR, PTT INR 1.17 (0.83-1.09) H 05/08/18 17:00 Fibrinogen 410.0 mg/dL (238-498) D 05/08/18 17:00 - ....Imaging Other: Report Reviewed Assessment/Plan The patient is a 72 year old female, with a significant past medical history of HTN, CLL (not on any treatment), thalassemia, anxiety, kidney stones, gallstones , admitted with fever. The patient was recently admitted for choledocholithiasis which subsequently got ERCP, complicated by GI bleed. Possible colitis and positive gallstones on prelim abdomen CT scan dropping PLT s/p recent rituxan; sepsis positive blood cx IV antibiotics; d/w ID dr Kothari transfuse PLT and heme eval d/w dr Garcia; added IV steroids - with GI Pfx GI f/u no SQ heparinfor DVT b/o dropping PLT risk bleed ENT eval for epistaxis; correct PLT f/u labs, CX d/w pt do not get OOB alone, falls risks; call staff if needs OOB - she understood prognosis guarded d/w pt and daughter t time 40 min
[2018-05-09] MEDS ORDERED: methylPREDNISolone NA SUCC 40 MG/1 ML VIAL IVPB STA (08:49)
--- NOTE | 2018-05-09 08:49 | CON.PULM ---
Consult Consult Specialty:: PULM/CCM Referred by:: RHINA Reason for Consultation:: GI Bleed - History of Present Illness Chief Complaint: Fever History of Present Illness: 72 F, CLL, anemia, obstructive jaundice due to choledocholithiasis and cholangitis. Admitted via the ER due to apparent fever and cough. Additional history of HTN, recent acute leukemic transformation and started rituxan per ONC, last dose 5 days ago, thalassemia, anxiety, and kidney stones. Her previous GO workup was complicated by GI bleeding. NOted to have epistaxis and gums bleeding, platelet count 19K. Currently awake and alert. Denies CP or SOB. Denies abdominal pain. She has received 2 units of FFP and is currently getting 1 unit of pRBCs. Hemodynamics have remained stable. CT imagin03/2018: new 1.3 cm RUL nospecific nodule (when compared to 01/2018) . No gross change in 0.5 & 1 cm (calcified) LLL nodules. No gross change in the 0.2 & 0.5 cm RLL nodules. - History Source History Provided By: Patient Limitations to Obtaining History: Poor Historian - Past Medical History Cardio/Vascular: Yes: HTN Gastrointestinal: Yes: Diverticulosis (on CT scan), GI Bleed (02/13 post- sphincterotomy bleed) Hepatobiliary: Yes: Cholelithiasis, Choledocholithiasis (with cholangitis 02/13 requring ERCP & sphincterotomy complicated by a post-sphincterotomy bleed ) Renal/: Yes: Renal Calculi Psych: Yes: Anxiety Musculoskeletal: Yes: Chronic low back pain - Past Surgical History Past Surgical History: Yes: Tonsillectomy, Upper Endoscopy - Alcohol/Substance Use Hx Alcohol Use: No History of Substance Use: reports: None - Smoking History Smoking history: Never smoked Have you smoked in the past 12 months: No Aproximately how many cigarettes per day: 0 - Social History Usual Living Arrangement: With Child ADL: Independent 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 of 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 Travel: No Home Medications - Allergies Allergies/Adverse Reactions: Allergies Allergy/AdvReac Type Severity Reaction Status Date / Time No Known Drug Allergies Allergy Verified 02/15/18 08:23 - Home Medications Home Medications: Ambulatory Orders Folic Acid 1 mg PO DAILY 03/31/18 Pantoprazole Sodium [Protonix] 40 mg PO DAILY 03/31/18 Allopurinol [Zyloprim -] 300 mg PO DAILY #90 tablet 04/13/18 Amlodipine Besylate 2.5 mg PO DAILY 05/07/18 Family Disease History - Family Disease History Family Disease History: Other: Father (in his 80's pneumonia), Mother ( age 93 of CVA hemorrhage) Review of Systems - Review of Systems Constitutional: reports: Malaise. denies: Chills, Fever, Night Sweats Eyes: reports: No Symptoms HENT: reports: No Symptoms Neck: reports: No Symptoms Cardiovascular: denies: Chest Pain, Edema, Palpitations, Shortness of Breath Respiratory: denies: Cough, Hemoptysis, Snoring, SOB, SOB on Exertion, Wheezing Gastrointestinal: reports: Melena, Nausea, Rectal Bleeding, Vomiting, Vomiting Blood. denies: Abdominal Pain, Bloating, Constipation, Diarrhea Genitourinary: reports: No Symptoms Breasts: reports: No Symptoms Reported Musculoskeletal: reports: No Symptoms Integumentary: reports: No Symptoms Neurological: reports: No Symptoms Endocrine: reports: No Symptoms Hematology/Lymphatic: reports: Easily Bruised, Excessive Bleeding Psychiatric: reports: No Symptoms Physical Exam Vital Sings: Vital Signs Temperature 98.5 F 05/09/18 06:00 Pulse Rate 107 H 05/09/18 06:00 Respiratory Rate 20 05/09/18 06:00 Blood Pressure 130/57 L 05/09/18 06:00 O2 Sat by Pulse Oximetry (%) 95 05/08/18 21:00 Constitutional: Yes: No Distress, Calm, Thin Eyes: Yes: Conjunctiva Clear, EOM Intact HENT: Yes: Atraumatic, Normocephalic, Epistaxis (dried blood in the mouth ), Other Neck: Yes: Supple, Trachea Midline Cardiovascular: Yes: Regular Rate and Rhythm Respiratory: Yes: CTA Bilaterally. No: Accessory Muscle Use ...Inspection: Yes: WNL ...Clubbing: No Gastrointestinal: Yes: Normal Bowel Sounds, Soft. No: Palpable Mass, Pulsatile Mass Renal/: Yes: WNL Musculoskeletal: Yes: WNL Extremities: Yes: WNL Edema: No Peripheral Pulses WNL: Yes Integumentary: Yes: WNL Neurological: Yes: WNL, Alert, Oriented ...Motor Strength: WNL Psychiatric: Yes: WNL, Alert, Oriented Labs: CBC, BMP 05/08/18 17:00 05/08/18 08:35 Imaging - Results Chest X-ray: Report Reviewed, Image Reviewed Cat Scan: Report Reviewed, Image Reviewed Problem List - Problems (1) Epistaxis Code(s): R04.0 - EPISTAXIS (2) Lung nodule, multiple Code(s): R91.8 - OTHER NONSPECIFIC ABNORMAL FINDING OF LUNG FIELD (3) Colonic thickening Code(s): K63.9 - DISEASE OF INTESTINE, UNSPECIFIED (4) Fever Code(s): R50.9 - FEVER, UNSPECIFIED Qualifiers: Fever type: unspecified Qualified Code(s): R50.9 - Fever, unspecified (5) GI bleed Code(s): K92.2 - GASTROINTESTINAL HEMORRHAGE, UNSPECIFIED (6) Mesenteric mass Code(s): K63.9 - DISEASE OF INTESTINE, UNSPECIFIED (7) Anemia Code(s): D64.9 - ANEMIA, UNSPECIFIED (8) Anxiety disorder Code(s): F41.9 - ANXIETY DISORDER, UNSPECIFIED (9) CKD (chronic kidney disease) Code(s): N18.9 - CHRONIC KIDNEY DISEASE, UNSPECIFIED (10) Choledocholithiasis Code(s): K80.50 - CALCULUS OF BILE DUCT W/O CHOLANGITIS OR CHOLECYST W/O OBST (11) Chronic lymphocytic leukemia Code(s): C91.90 - LYMPHOID LEUKEMIA, UNSPECIFIED NOT HAVING ACHIEVED REMISSION (12) Cough Code(s): R05 - COUGH (13) Diastolic CHF Code(s): I50.30 - UNSPECIFIED DIASTOLIC (CONGESTIVE) HEART FAILURE (14) HTN (hypertension) Code(s): I10 - ESSENTIAL (PRIMARY) HYPERTENSION (15) Nephrolithiasis Code(s): N20.0 - CALCULUS OF KIDNEY (16) PAD (peripheral artery disease) Code(s): I73.9 - PERIPHERAL VASCULAR DISEASE, UNSPECIFIED (17) Thrombocytopenia Code(s): D69.6 - THROMBOCYTOPENIA, UNSPECIFIED Assessment/Plan FFP has already been transfused pRBCs currently being transfused O2 as needed Platelet transfusion support Heme evaluation Will need outpatient follow up of the the lung nodules. The new RUL lesion is unlikely to be malignant due to the acuity (was not present 01/2018) GI evaluation noted: will hold on endoscopic evaluation due to the severe thrombocytopenia PPI ABX per ID Currently the patient is awake and alert and remains hemodynamically stable. At this point no clear indication for ICU transfer. Please notify the team for any changes in her clinical status. Will continue to follow. Thank you. Dr Saucedo
[2018-05-09] MEDS ORDERED: INSULIN (LEVEMIR) 100 UNITS/ML UNITS SQ ONE (09:22)
[2018-05-09] MEDS ORDERED: OXYMETAZOLINE 0.05% NASAL SOLUTION 15 ML BOTTLE NS PRN (09:28)
[2018-05-09] MEDS: PANTOPRAZOLE SODIUM 80 MG in SODIUM CHLORIDE 100 ML IVPB SCH ×3 (11:00→19:27)
[2018-05-09] MEDS: FOLIC ACID 1 MG TABLET (FP) PO SCH (11:33)
[2018-05-09] MEDS: ALLOPURINOL 300 MG TABLET (FP) PO SCH (11:35)
[2018-05-09] MEDS: DIVALPROEX SODIUM 125 MG SPRINKLE CAPS PO SCH ×2 (11:35→22:15)
[2018-05-09] MEDS: LACTATED RINGERS SOLUTION 1,000 ML/1,000 ML INFUS.BAG IV SCH ×2 (11:36→22:15)
--- NOTE | 2018-05-09 12:18 | PN ---
GI 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 Subjective: GI NOte: NO bloody BMs overnight. Has nose packed for epistaxis. NO abdominal pain. LFTs unremarkable - Objective Vital Signs: Vital Signs Temperature 98.5 F 05/09/18 06:00 Pulse Rate 107 H 05/09/18 06:00 Respiratory Rate 20 05/09/18 06:00 Blood Pressure 130/57 L 05/09/18 06:00 O2 Sat by Pulse Oximetry (%) 95 05/08/18 21:00 Laboratory Tests 05/07/18 05/07/18 05/07/18 15:17 15:17 15:17 Hgb 10.8 Plt Count 212 D BUN Creatinine Total Bilirubin 2.0 H Direct Bilirubin 0.4 H AST ALT Alkaline Phosphatase 05/08/18 05/08/18 05/08/18 08:35 08:35 09:50 Hgb 9.7 L 9.7 L Plt Count 19 L* BUN 19 H Creatinine 1.1 Total Bilirubin 1.4 H Direct Bilirubin AST 18 ALT 14 Alkaline Phosphatase 55 05/08/18 17:00 Hgb 8.7 L Plt Count 17 L* BUN Creatinine Total Bilirubin Direct Bilirubin AST ALT Alkaline Phosphatase Constitutional: Other (Pale) ...Auscultate: Yes: Normoactive Bowel Sounds ...Palpate: Yes: Soft, Other (nontender) Labs: CBC, BMP 05/08/18 17:00 05/08/18 08:35 INR, PTT INR 1.17 (0.83-1.09) H 05/08/18 17:00 Fibrinogen 410.0 mg/dL (238-498) D 05/08/18 17:00 Assessment/Plan Impression: GI bleeding and epistaxis related to thrombocytopenia which reflects her chemotherapy Plan: [facility] interventional endoscopy for life threatening hemorrhage as the scope passage can cause a pharyngeal submucosal hematoma in the face of such a low platelet count Problem List - Problems (1) GI bleed Assessment/Plan: Impression: Bleeding is most likely related to profound thrombocytopenia. Had recent EGD at [facility] when the sphincterotomy bleeding site was endoclipped. Plan: -- Given her fragility will reserve EGD for life threatening hemorrhage. I have discussed the potential risks of perforation and hemorrhage associated with upper endoscopy so Tracy is on a position to make an informed consent. Code(s): K92.2 - GASTROINTESTINAL HEMORRHAGE, UNSPECIFIED (2) Anemia Code(s): D64.9 - ANEMIA, UNSPECIFIED (3) CKD (chronic kidney disease) Code(s): N18.9 - CHRONIC KIDNEY DISEASE, UNSPECIFIED (4) Choledocholithiasis Code(s): K80.50 - CALCULUS OF BILE DUCT W/O CHOLANGITIS OR CHOLECYST W/O OBST (5) Chronic lymphocytic leukemia Code(s): C91.90 - LYMPHOID LEUKEMIA, UNSPECIFIED NOT HAVING ACHIEVED REMISSION (6) Thrombocytopenia Code(s): D69.6 - THROMBOCYTOPENIA, UNSPECIFIED
--- NOTE | 2018-05-09 13:19 | CON.ENT ---
Consult Consult Specialty:: otolaryngology Referred by:: dr herrera Reason for Consultation:: nosebleed - History of Present Illness Chief Complaint: nosebleed History of Present Illness: 72F PMHx HTN, CLL (not on any treatment) s/p recent acute leukemic transformation and started rituxan per ONC last week, thalassemia, anxiety, kidney stones, gallstones, admitted via ER with fever. Over the days preceding and since admission she has had bleeding from nose (left?) and gums periodically. Her platelets have fallen to 17, and has had transfusions of PRBCs and I believe also platelets. She has also had blood per rectum. GI, ID, and Onc are consulting. I was paged urgently this morning but several returned calls to paging MD went unanswered. - History Source History Provided By: Patient, Medical Record - Past Medical History Cardio/Vascular: Yes: HTN Gastrointestinal: Yes: Diverticulosis (on CT scan), GI Bleed (02/13 post- sphincterotomy bleed) Hepatobiliary: Yes: Cholelithiasis, Choledocholithiasis (with cholangitis 02/13 requring ERCP & sphincterotomy complicated by a post-sphincterotomy bleed ) Renal/: Yes: Renal Calculi Psych: Yes: Anxiety Musculoskeletal: Yes: Chronic low back pain - Past Surgical History Past Surgical History: Yes: Tonsillectomy, Upper Endoscopy - Alcohol/Substance Use Hx Alcohol Use: No History of Substance Use: reports: None - Smoking History Smoking history: Never smoked Have you smoked in the past 12 months: No Aproximately how many cigarettes per day: 0 - Social History Usual Living Arrangement: With Child ADL: Independent 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 of Recent Travel: No Home Medications - Allergies Allergies/Adverse Reactions: Allergies Allergy/AdvReac Type Severity Reaction Status Date / Time No Known Drug Allergies Allergy Verified 02/15/18 08:23 - Home Medications Home Medications: Ambulatory Orders Folic Acid 1 mg PO DAILY 03/31/18 Pantoprazole Sodium [Protonix] 40 mg PO DAILY 03/31/18 Allopurinol [Zyloprim -] 300 mg PO DAILY #90 tablet 04/13/18 Amlodipine Besylate 2.5 mg PO DAILY 05/07/18 Family Disease History - Family Disease History Family Disease History: Other: Father (in his 80's pneumonia), Mother ( age 93 of CVA hemorrhage) Physical Exam-ENT Vital Signs: Vital Signs Temperature 98.5 F 05/09/18 06:00 Pulse Rate 107 H 05/09/18 06:00 Respiratory Rate 20 05/09/18 06:00 Blood Pressure 130/57 L 05/09/18 06:00 O2 Sat by Pulse Oximetry (%) 95 05/08/18 21:00 Constitutional: Yes: Well Nourished, Other (mostly cooperative with exam. Laying in bed on floor in no distress. no bleeding or fresh blood clots seen.) Head: Yes: WNL Face: Yes: WNL Eyes: Yes: WNL Nose: Yes: Other (dry blood crusts anteriorly B) Nasal Passage: Yes: Other (blood) Oral/Pharynx: Yes: Other (poor dentition. Some dark blood clots. Unable to view posterior oropharynx as she refuses.) Outer Ear: Yes: WNL Ear Canal: Yes: Cerumen Neck: Yes: WNL Neurological: Yes: Other (CN 3-7,11,12 grossly intact) Problem List - Problems (1) Epistaxis Assessment/Plan: Recurrent epistaxis in setting of sepsis, CLL, just started rituximab - At the time of evaluation this morning, there was no bleeding seen. Discussed packing with the patient who declined. - She is very likely to have recurrent minor oozing as has been reported previously given her profound thrombocytopenia. This must be corrected promptly with repeat CBCs to verify response. - I deferred cleaning/packing the nose this morning as ensuing trauma to the nose could precipitate more bleeding which could be hard to control in setting of thrombocytopenia, and usually such nosebleeds resolve when platelet counts normalize. Also, the presence of foreign bodies in the nose could lead to infection, which is not optimal in a patient being treated currently for sepsis. - Agree with transfer to the ICU where she can receive a higher level of care. - Last CBC was 1700 yesterday. This should be repeated as soon as able to verify platelet count has increased. - Nasal saline spray - If she resumes bleeding, please apply pressure anteriorly to entire soft tissue portion of nose for at least least fifteen minutes. - Poor dentition -- needs dental evaluation outpatient. Code(s): R04.0 - EPISTAXIS
--- NOTE | 2018-05-09 14:35 | PN ---
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, Physician History of Present Illness: AWAKE, CONFUSED OFFERS NO COMPLAINTS TEMPS DOWN BC STREP SP URINE C/S LF - Current Medication List Current Medications: Active Medications Acetaminophen (Tylenol -) 650 mg PO Q6H PRN PRN Reason: FEVER Last Admin: 05/08/18 13:52 Dose: 650 mg Allopurinol (Zyloprim -) 300 mg PO DAILY [facility] Last Admin: 05/09/18 11:35 Dose: 300 mg Chlorhexidine Gluconate (Hibiclens For Decolonization -) 1 applic TP HS [facility] Divalproex Sodium (Depakote Sprinkle Caps -) 125 mg PO BID [facility] Last Admin: 05/09/18 11:35 Dose: 125 mg Folic Acid (Folic Acid -) 1 mg PO DAILY [facility] Last Admin: 05/09/18 11:33 Dose: 1 mg Lactated Ringer's (Lactated Ringers Solution) 1,000 ml in 1,000 mls @ 75 mls/ hr IV ASDIR [facility] Last Admin: 05/09/18 11:36 Dose: Not Given Piperacillin Sod/Tazobactam (Sod 3.375 gm/ Dextrose) 50 mls @ 100 mls/hr IVPB Q8H-IV [facility]; Protocol Last Admin: 05/09/18 10:00 Dose: 100 mls/hr Vancomycin HCl (Vancomycin (Pre-Docked)) 1,000 mg in 250 mls @ 166.667 mls/hr IVPB Q12H [facility]; Protocol Last Admin: 05/09/18 05:28 Dose: 166.667 mls/hr Pantoprazole Sodium 80 mg/ (Sodium Chloride) 100 mls @ 10 mls/hr IVPB Q10H [facility] Last Admin: 05/09/18 11:00 Dose: 10 mls/hr Mupirocin (Bactroban Ointment (For Decolonization) -) 1 applic NS BID [facility] Stop: 05/13/18 21:59 Oxymetazoline HCl (Afrin -) 2 spray NS Q12H PRN PRN Reason: NASAL CONGESTION - Objective Vital Signs: Vital Signs Temperature 98.5 F 05/09/18 06:00 Pulse Rate 107 H 05/09/18 06:00 Respiratory Rate 20 05/09/18 06:00 Blood Pressure 130/57 L 05/09/18 06:00 O2 Sat by Pulse Oximetry (%) 95 05/08/18 21:00 Constitutional: Yes: No Distress, Cachectic Eyes: Yes: Conjunctiva Clear HENT: Yes: Other (CLOTTED BLOOD IN NARES) Cardiovascular: Yes: Regular Rate and Rhythm, S1, S2 Respiratory: Yes: CTA Bilaterally Gastrointestinal: Yes: Normal Bowel Sounds, Soft. No: Tenderness Extremities: Yes: Other (RESIDUAL ERYTHEMA R FOOT) Edema: No Labs: CBC, BMP 05/08/18 17:00 05/08/18 08:35 INR, PTT INR 1.17 (0.83-1.09) H 05/08/18 17:00 Fibrinogen 410.0 mg/dL (238-498) D 05/08/18 17:00 Assessment/Plan SEPSIS SEVERAL POTENTIAL SOURCE ( UTI, BILIARY TRACT, SKIN, LUNG) pANCYTOPENIA EPISTAXIS/GI BLEED AWAIT C/S CONTINUE ZOSYN/ VANCOMYCIN
[2018-05-09 18:44] LABS: BASO % 2.1 % (0-2.0); EOS % 0.1 % (0-4.5); HEMATOCRIT 30.3 % (32.4-45.2); HEMOGLOBIN 10.8 GM/dL (10.7-15.3); LYMPH % 12.3 % (8-40); MCH 28.9 pg (25.7-33.7); MCHC 35.6 g/dl (32.0-36.0); MEAN CELL VOLUME 81.2 fl (80-96); MEAN PLT VOLUME 9.2 fl (7.5-11.1); MONO % 0.9 % (3.8-10.2); NEUT % 84.6 % (42.8-82.8); RBC 3.73 M/mm3 (3.60-5.2); RDW 15.8 % (11.6-15.6); WHITE BLOOD COUNT 2.2 K/mm3 (4.0-10.0)
[2018-05-09 18:59] LABS: PLATELET COUNT 14 K/MM3 (134-434)
[2018-05-09 19:13] LABS: INR 1.21 (0.83-1.09); PROTHROMBIN TIME (PATIENT) 14.3 SEC (9.7-13.0)
[2018-05-09 19:20] LABS: ALBUMIN 2.3 g/dl (3.4-5.0); ALK PHOS 48 U/L (45-117); ANION GAP 10 MMOL/L (8-16); BILIRUBIN,TOTAL 1.6 mg/dL (0.2-1); BLOOD UREA NITROGEN 25 mg/dL (7-18); CALCIUM 8.1 mg/dL (8.5-10.1); CHLORIDE 102 mmol/L (98-107); CO2 26 mmol/L (21-32); CREATININE 1.2 mg/dL (0.55-1.3); GLUCOSE,RANDOM 273 mg/dL (74-106); POTASSIUM 3.6 mmol/L (3.5-5.1); SGOT/AST 11 U/L (15-37); SGPT/ALT 14 U/L (13-61); SODIUM 137 mmol/L (136-145)
[2018-05-09 21:16] LABS: PLATELET ESTIMATE DECREASED
[2018-05-09] MEDS ORDERED: PT OWN MED DRAWER 7, Y5N ONE (21:56)
[2018-05-10] MEDS ORDERED: DEXTROSE 5%-WATER - 50 ML IVPB ONE ×4 (02:09→23:38)
[2018-05-10] MEDS ORDERED: PIPERACILLIN/TAZOBACTAM 3.375 GM VIAL IVPB ONE ×4 (02:09→23:38)
[2018-05-10] MEDS: PIPERACILLIN/TAZOB 3.375 GM 3.375 GM in DEXTROSE 5%-WATER - 50 ML IVPB SCH ×4 (02:40→19:28)
[2018-05-10] MEDS: VANCOMYCIN 1 GRAM (PRE-DOCKED) 1,000 MG/250 ML BAG IVPB SCH (04:30)
[2018-05-10] MEDS: PANTOPRAZOLE SODIUM 80 MG in SODIUM CHLORIDE 100 ML IVPB SCH (04:53)
--- NOTE | 2018-05-10 07:20 | PN ---
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, Physician Chief Complaint: PLT again dropped despite more PLT transfusions; on IV steroids pulled out IVs from both arms, bleeding; d/w pt and daughter Dayana the importance to keep IVs in blood cx positive on IV ATB per ID - Current Medication List Current Medications: Active Medications Acetaminophen (Tylenol -) 650 mg PO Q6H PRN PRN Reason: FEVER Last Admin: 05/08/18 13:52 Dose: 650 mg Allopurinol (Zyloprim -) 300 mg PO DAILY [facility] Last Admin: 05/09/18 11:35 Dose: 300 mg Chlorhexidine Gluconate (Hibiclens For Decolonization -) 1 applic TP HS [facility] Divalproex Sodium (Depakote Sprinkle Caps -) 125 mg PO BID [facility] Last Admin: 05/09/18 22:15 Dose: 125 mg Folic Acid (Folic Acid -) 1 mg PO DAILY [facility] Last Admin: 05/09/18 11:33 Dose: 1 mg Lactated Ringer's (Lactated Ringers Solution) 1,000 ml in 1,000 mls @ 75 mls/ hr IV ASDIR [facility] Last Admin: 05/09/18 22:15 Dose: 75 mls/hr Piperacillin Sod/Tazobactam (Sod 3.375 gm/ Dextrose) 50 mls @ 100 mls/hr IVPB Q8H-IV [facility]; Protocol Last Admin: 05/10/18 02:40 Dose: 100 mls/hr Vancomycin HCl (Vancomycin (Pre-Docked)) 1,000 mg in 250 mls @ 166.667 mls/hr IVPB Q12H [facility]; Protocol Last Admin: 05/10/18 04:30 Dose: 166.667 mls/hr Methylprednisolone Sodium Succinate (Solu-Medrol -) 60 mg IVPUSH DAILY [facility] Mupirocin (Bactroban Ointment (For Decolonization) -) 1 applic NS BID [facility] Stop: 05/13/18 21:59 Oxymetazoline HCl (Afrin -) 2 spray NS Q12H PRN PRN Reason: NASAL CONGESTION Pantoprazole Sodium (Protonix -) 40 mg PO DAILY [facility] - Objective Vital Signs: Vital Signs Temperature 98.1 F 05/10/18 06:00 Pulse Rate 85 05/10/18 06:00 Respiratory Rate 18 05/10/18 06:00 Blood Pressure 157/93 05/10/18 06:00 O2 Sat by Pulse Oximetry (%) 95 05/09/18 09:00 Constitutional: Yes: No Distress, Calm Eyes: Yes: Conjunctiva Clear HENT: Yes: Atraumatic Neck: Yes: Supple Cardiovascular: Yes: Regular Rate and Rhythm Respiratory: Yes: CTA Bilaterally Gastrointestinal: Yes: Soft. No: Tenderness Musculoskeletal: No: Joint Stiffness, Joint Swelling Extremities: No: Cold, Cool, Cyanosis Edema: No Integumentary: Yes: Bruising. No: Rash, Venous Stasis Changes Neurological: Yes: WNL, Alert, Oriented. No: Aphasia ...Motor Strength: WNL Psychiatric: Yes: WNL, Alert, Oriented. No: Agitated, Suicidal Ideation Labs: INR, PTT INR 1.21 (0.83-1.09) H 05/09/18 18:00 Fibrinogen 390.0 mg/dL (238-498) 05/09/18 06:00 - ....Imaging EKG: Report Reviewed Assessment/Plan The patient is a 72 year old female, with a significant past medical history of HTN, CLL (not on any treatment), thalassemia, anxiety, kidney stones, gallstones , admitted with fever. The patient was recently admitted for choledocholithiasis which subsequently got ERCP, complicated by GI bleed. Possible colitis and positive gallstones on prelim abdomen CT scan dropping PLT s/p recent rituxan; sepsis positive blood cx IV antibiotics; d/w ID dr Kothari transfuse PLT and heme eval d/w dr Garcia; added IV steroids - with GI Pfx GI f/u no SQ heparinfor DVT b/o dropping PLT risk bleed ENT eval for epistaxis; correct PLT f/u labs, CX d/w pt do not get OOB alone, falls risks; call staff if needs OOB - she understood prognosis guarded d/w pt and daughter t time 40 min
[2018-05-10 07:36] LABS: BASO % 0.6 % (0-2.0); EOS % 0.1 % (0-4.5); HEMATOCRIT 23.6 % (32.4-45.2); HEMOGLOBIN 8.5 GM/dL (10.7-15.3); MCH 28.6 pg (25.7-33.7); MCHC 35.9 g/dl (32.0-36.0); MEAN CELL VOLUME 79.6 fl (80-96); MEAN PLT VOLUME 8.9 fl (7.5-11.1); MONO % 2.8 % (3.8-10.2); NEUT % 69.5 % (42.8-82.8); RBC 2.96 M/mm3 (3.60-5.2); RDW 15.6 % (11.6-15.6)
[2018-05-10 07:41] LABS: INR 1.23 (0.83-1.09); PROTHROMBIN TIME (PATIENT) 14.5 SEC (9.7-13.0)
[2018-05-10 08:04] LABS: ALBUMIN 2.2 g/dl (3.4-5.0); ALK PHOS 42 U/L (45-117); ANION GAP 6 MMOL/L (8-16); BILIRUBIN,TOTAL 1.7 mg/dL (0.2-1); BLOOD UREA NITROGEN 24 mg/dL (7-18); CALCIUM 8.2 mg/dL (8.5-10.1); CHLORIDE 104 mmol/L (98-107); CO2 28 mmol/L (21-32); CREATININE 0.9 mg/dL (0.55-1.3); GLUCOSE,RANDOM 206 mg/dL (74-106); POTASSIUM 3.5 mmol/L (3.5-5.1); SGOT/AST 12 U/L (15-37); SGPT/ALT 14 U/L (13-61); SODIUM 138 mmol/L (136-145); TOT PROT 4.9 g/dl (6.4-8.2)
[2018-05-10 08:17] LABS: WHITE BLOOD COUNT 1.8 K/mm3 (4.0-10.0)
[2018-05-10 08:18] LABS: PLATELET COUNT 11 K/MM3 (134-434)
--- NOTE | 2018-05-10 09:55 | PN ---
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, Physician Chief Complaint: nosebleed History of Present Illness: Remains on the floor. No beds in ICU. - Current Medication List Current Medications: Active Medications Acetaminophen (Tylenol -) 650 mg PO Q6H PRN PRN Reason: FEVER Last Admin: 05/08/18 13:52 Dose: 650 mg Allopurinol (Zyloprim -) 300 mg PO DAILY [facility] Last Admin: 05/09/18 11:35 Dose: 300 mg Chlorhexidine Gluconate (Hibiclens For Decolonization -) 1 applic TP HS [facility] Divalproex Sodium (Depakote Sprinkle Caps -) 125 mg PO BID [facility] Last Admin: 05/09/18 22:15 Dose: 125 mg Folic Acid (Folic Acid -) 1 mg PO DAILY [facility] Last Admin: 05/09/18 11:33 Dose: 1 mg Lactated Ringer's (Lactated Ringers Solution) 1,000 ml in 1,000 mls @ 75 mls/ hr IV ASDIR [facility] Last Admin: 05/09/18 22:15 Dose: 75 mls/hr Piperacillin Sod/Tazobactam (Sod 3.375 gm/ Dextrose) 50 mls @ 100 mls/hr IVPB Q8H-IV [facility]; Protocol Last Admin: 05/10/18 02:40 Dose: 100 mls/hr Vancomycin HCl (Vancomycin (Pre-Docked)) 1,000 mg in 250 mls @ 166.667 mls/hr IVPB Q12H [facility]; Protocol Last Admin: 05/10/18 04:30 Dose: 166.667 mls/hr Methylprednisolone Sodium Succinate (Solu-Medrol -) 60 mg IVPUSH DAILY [facility] Mupirocin (Bactroban Ointment (For Decolonization) -) 1 applic NS BID [facility] Stop: 05/13/18 21:59 Oxymetazoline HCl (Afrin -) 2 spray NS Q12H PRN PRN Reason: NASAL CONGESTION Pantoprazole Sodium (Protonix -) 40 mg PO DAILY [facility] - Objective Vital Signs: Vital Signs Temperature 98.1 F 05/10/18 06:00 Pulse Rate 85 05/10/18 06:00 Respiratory Rate 18 05/10/18 06:00 Blood Pressure 157/93 05/10/18 06:00 O2 Sat by Pulse Oximetry (%) 95 05/09/18 09:00 Constitutional: Yes: Well Nourished, No Distress, Other (was on telephone when I entered.) HENT: Yes: Other (Nose: No mustache dressing. Dry blood bilateral anterior nostrils, no active bleeding. Mouth: poor dentition. no blood.) Labs: CBC, BMP 05/10/18 06:30 05/10/18 06:30 INR, PTT INR 1.23 (0.83-1.09) H 05/10/18 06:30 Fibrinogen 390.0 mg/dL (238-498) 05/09/18 06:00 Problem List - Problems (1) Epistaxis Assessment/Plan: Recurrent epistaxis in setting of sepsis, CLL, just started rituximab. +GI bleed ? - Again no bleeding at time of exam - Platelets dropped from 17 to 14 and most recently 11K. Recommend transfusion to at least >50K with regular CBC to monitor this and Hct. - She is very likely to have recurrent minor oozing given this profound thrombocytopenia, and is at risk for additional bleeding elsewhere. - The best treatment for her periodic oozing is platelet transfusion. Cleaning and/or packing the nose will abrade the mucosa (if she were to even permit this ) and could lead to further bleeding. Foreign body packing in the nose could also serve as a nidus for infection, and she is being treated for sepsis, and should be reserved for significant bleeding. - Agree with transfer to the ICU where she can receive a higher level of care. - Nasal saline spray TID - If she resumes bleeding, please apply pressure anteriorly to entire soft tissue portion of nose for at least least fifteen minutes, and contact [facility] as appropriate. - Care per primary team will sign off. please call with questions Code(s): R04.0 - EPISTAXIS
[2018-05-10] MEDS: FOLIC ACID 1 MG TABLET (FP) PO SCH (10:49)
[2018-05-10] MEDS: PANTOPRAZOLE 40 MG TABLET (FP) PO SCH (10:57)
[2018-05-10] MEDS: DIVALPROEX SODIUM 125 MG SPRINKLE CAPS PO SCH ×2 (10:59→21:02)
[2018-05-10] MEDS: LACTATED RINGERS SOLUTION 1,000 ML/1,000 ML INFUS.BAG IV SCH (11:00)
[2018-05-10] MEDS: ALLOPURINOL 300 MG TABLET (FP) PO SCH (11:00)
[2018-05-10] MEDS: methylPREDNISolone NA SUCC 40 MG/1 ML VIAL IVPUSH SCH (11:01)
[2018-05-10 11:38] LABS: ANISOCYTOSIS 1+; MACROCYTOSIS 0; PLATELET ESTIMATE DECREASED; TEAR DROP CELLS 1+
[2018-05-10] MEDS: ACETAMINOPHEN 325 MG TABLET (FP) PO SCH (11:55)
[2018-05-10] MEDS: IMMUNE GLOBULIN IVPB SCH (11:57)
[2018-05-10] MEDS: [UNRECOGNIZED DRUG - OTHER] IVPB SCH (11:57)
[2018-05-10] MEDS ORDERED: [UNRECOGNIZED DRUG - OTHER] IVPB SCH (12:00)
[2018-05-10] MEDS ORDERED: IMMUNE GLOBULIN IVPB SCH (12:00)
[2018-05-10] MEDS: MUPIROCIN 2% TOPICAL OINTMENT FOR DECOLONIZATION NS SCH ×3 (12:06→12:10)
[2018-05-10] MEDS: CHLORHEXIDINE GLUCONATE 4% CLEANSER FOR DECOLONIZATION TP SCH ×2 (12:08→12:10)
[2018-05-10] MEDS: DAPTOMYCIN 300 MG in SODIUM CHLORIDE 50 ML IVPB SCH (13:27)
--- NOTE | 2018-05-10 17:35 | PN ---
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 (short form) - Note 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: Patient seen and examined Ongoing problems with thrombocytopenia , sepsis Numerous ecchymoses throughout Hematomas at blood letting sites Petechiae on back and extremities Last Vital Signs Temp Pulse Resp BP Pulse Ox 98.1 F 70 18 117/60 95 05/10/18 14:00 05/10/18 14:00 05/10/18 14:00 05/10/18 14:00 05/10/18 09:00 HEENT: FELIBERTO, EOM Intact Oropharynx: No thrush, No mucositis Neck: Supple Nodes: Without adenopathy Cor: RSR, No murmurs, No gallops Lungs: Clear to P&A Abd: Soft, Normal bowel sounds, No organomegaly Ext:LE edema Skin: Petechiae and ecchymoses CBC, BMP 05/10/18 06:30 05/10/18 06:30 Current Medications Generic Name Dose Route Start Last Admin Trade Name Freq PRN Reason Stop Dose Admin Acetaminophen 650 mg 05/07/18 16:42 05/08/18 13:52 Tylenol - PO 650 mg Q6H PRN Administration FEVER Acetaminophen 650 mg 05/10/18 11:30 05/10/18 11:55 Tylenol - PO 05/14/18 11:31 650 mg DAILY@1130 RYAN Administration Allopurinol 300 mg 05/08/18 10:00 05/10/18 11:00 Zyloprim - PO 300 mg DAILY RYAN Administration Divalproex Sodium 125 mg 05/07/18 22:00 05/10/18 10:59 Depakote Sprinkle Caps - PO 125 mg BID RYAN Administration Folic Acid 1 mg 05/08/18 10:00 05/10/18 10:49 Folic Acid - PO 1 mg DAILY RYAN Administration Lactated Ringer's 1,000 ml in 1,000 mls @ 75 mls/hr 05/07/18 23:30 05/10/18 11:00 Lactated Ringers Solution IV Not Given ASDIR RYAN Piperacillin Sod/Tazobactam 50 mls @ 100 mls/hr 05/08/18 18:00 05/10/18 10:49 Sod 3.375 gm/ Dextrose IVPB 100 mls/hr Q8H-IV RYAN Administration Protocol Immune Globulin 20 gm in 200 mls @ 100 mls/hr 05/10/18 12:00 05/10/18 11:57 Gammaked 20 Gram/200 Ml Vial IVPB 05/14/18 13:59 100 mls/hr DAILY@1200 RYAN Administration Protocol Daptomycin 300 mg/ Sodium 50 mls @ 50 mls/hr 05/10/18 13:00 05/10/18 13:27 Chloride IVPB 50 mls/hr DAILY RYAN Administration Protocol Methylprednisolone Sodium Succinate 60 mg 05/10/18 10:00 05/10/18 11:01 Solu-Medrol - IVPUSH 60 mg DAILY RYAN Administration Oxymetazoline HCl 2 spray 05/09/18 09:28 05/10/18 11:02 Afrin - NS 2 spray Q12H PRN Administration NASAL CONGESTION Pantoprazole Sodium 40 mg 05/10/18 10:00 05/10/18 10:57 Protonix - PO 40 mg DAILY RYAN Administration Impression: CLL Pancytopenia - CLL/ meds/sepsis Klebsiella- urine VREF- Blood Antibiotics per ID Plan: Suspect that autoimmune phenomena playing role in cytopenias . Have added Gammaglobulin to steroid therapy ANC-1200 - if further fall , will consider G-CSF support To monitor coags, CBC, chems. IV access a formidable challenge. Has received platelet infusion without response, albeit no bleeding currently. To hold off for now , but for bleeding.
--- NOTE | 2018-05-10 17:41 | PN ---
GI 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 Subjective: GI NOte: NO overt GI bleeding. Suspect her occult blood in stool was due to epistaxis. Hungry for food. Has no - Objective Vital Signs: Vital Signs Temperature 98.1 F 05/10/18 14:00 Pulse Rate 70 05/10/18 14:00 Respiratory Rate 18 05/10/18 14:00 Blood Pressure 117/60 05/10/18 14:00 O2 Sat by Pulse Oximetry (%) 95 05/10/18 09:00 Laboratory Tests 05/10/18 06:30 WBC 1.8 L* Hct 23.6 L D Plt Count 11 L* D Constitutional: Calm ...Auscultate: Yes: Normoactive Bowel Sounds ...Palpate: Yes: Soft, Other (nontender) Labs: CBC, BMP 05/10/18 06:30 05/10/18 06:30 INR, PTT INR 1.23 (0.83-1.09) H 05/10/18 06:30 Fibrinogen 390.0 mg/dL (238-498) 05/09/18 06:00 Assessment/Plan Impression: Occult blood in stool related to epistaxis due to thrombocytopenia which reflects her chemotherapy Plan: Please recall us as needed Advanced to solid food Problem List - Problems (1) GI bleed Code(s): K92.2 - GASTROINTESTINAL HEMORRHAGE, UNSPECIFIED (2) Anemia Code(s): D64.9 - ANEMIA, UNSPECIFIED (3) CKD (chronic kidney disease) Code(s): N18.9 - CHRONIC KIDNEY DISEASE, UNSPECIFIED (4) Choledocholithiasis Code(s): K80.50 - CALCULUS OF BILE DUCT W/O CHOLANGITIS OR CHOLECYST W/O OBST (5) Chronic lymphocytic leukemia Code(s): C91.90 - LYMPHOID LEUKEMIA, UNSPECIFIED NOT HAVING ACHIEVED REMISSION (6) Thrombocytopenia Code(s): D69.6 - THROMBOCYTOPENIA, UNSPECIFIED
[2018-05-10] MEDS ORDERED: ALPRAZolam 0.25 MG TABLET PO ONE (20:15)
--- NOTE | 2018-05-10 21:52 | PN ---
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, Physician History of Present Illness: AWAKE, CONFUSED OFFERS NO COMPLAINTS TEMPS DOWN AFEBRILE BC VRE URINE KLEBSIELLA - Current Medication List Current Medications: Active Medications Acetaminophen (Tylenol -) 650 mg PO Q6H PRN PRN Reason: FEVER Last Admin: 05/08/18 13:52 Dose: 650 mg Acetaminophen (Tylenol -) 650 mg PO DAILY@1130 RYAN Stop: 05/14/18 11:31 Last Admin: 05/10/18 11:55 Dose: 650 mg Allopurinol (Zyloprim -) 300 mg PO DAILY [facility] Last Admin: 05/10/18 11:00 Dose: 300 mg Divalproex Sodium (Depakote Sprinkle Caps -) 125 mg PO BID RYAN Last Admin: 05/10/18 21:02 Dose: 125 mg Folic Acid (Folic Acid -) 1 mg PO DAILY [facility] Last Admin: 05/10/18 10:49 Dose: 1 mg Lactated Ringer's (Lactated Ringers Solution) 1,000 ml in 1,000 mls @ 75 mls/ hr IV ASDIR RYAN Last Admin: 05/10/18 11:00 Dose: Not Given Piperacillin Sod/Tazobactam (Sod 3.375 gm/ Dextrose) 50 mls @ 100 mls/hr IVPB Q8H-IV RYAN; Protocol Last Admin: 05/10/18 19:28 Dose: Not Given Immune Globulin (Gammaked 20 Gram/200 Ml Vial) 20 gm in 200 mls @ 100 mls/hr IVPB DAILY@1200 RYAN; Protocol Stop: 05/14/18 13:59 Last Admin: 05/10/18 11:57 Dose: 100 mls/hr Daptomycin 300 mg/ Sodium (Chloride) 50 mls @ 50 mls/hr IVPB DAILY [facility]; Protocol Last Admin: 05/10/18 13:27 Dose: 50 mls/hr Methylprednisolone Sodium Succinate (Solu-Medrol -) 60 mg IVPUSH DAILY [facility] Last Admin: 05/10/18 11:01 Dose: 60 mg Oxymetazoline HCl (Afrin -) 2 spray NS Q12H PRN PRN Reason: NASAL CONGESTION Last Admin: 05/10/18 11:02 Dose: 2 spray Pantoprazole Sodium (Protonix -) 40 mg PO DAILY [facility] Last Admin: 05/10/18 10:57 Dose: 40 mg - Objective Vital Signs: Vital Signs Temperature 98.1 F 05/10/18 14:00 Pulse Rate 70 05/10/18 14:00 Respiratory Rate 18 05/10/18 14:00 Blood Pressure 117/60 05/10/18 14:00 O2 Sat by Pulse Oximetry (%) 95 05/10/18 09:00 Constitutional: Yes: No Distress, Cachectic Cardiovascular: Yes: Regular Rate and Rhythm, S1, S2 Respiratory: Yes: CTA Bilaterally Gastrointestinal: Yes: Normal Bowel Sounds, Soft Edema: No Integumentary: Yes: Bruising Labs: CBC, BMP 05/10/18 06:30 05/10/18 06:30 INR, PTT INR 1.23 (0.83-1.09) H 05/10/18 06:30 Fibrinogen 390.0 mg/dL (238-498) 05/09/18 06:00 Assessment/Plan SEPSIS +BC VRE pANCYTOPENIA LEUKOPENIA EPISTAXIS/GI BLEED CONTINUE ZOSYN DAPTOMYCIN 6MG/KG
[2018-05-11] MEDS: PIPERACILLIN/TAZOB 3.375 GM 3.375 GM in DEXTROSE 5%-WATER - 50 ML IVPB SCH ×3 (01:27→17:18)
[2018-05-11] MEDS: LACTATED RINGERS SOLUTION 1,000 ML/1,000 ML INFUS.BAG IV SCH (04:14)
--- NOTE | 2018-05-11 06:59 | PN ---
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, Physician Chief Complaint: in bed events noted; pt got OOB last night vest ordered for safety; falls risk; also 1:1 placed and aid t bedside this am pt in bed NAD scattered echymoses face, chest and arms; R hand swelling and R forearm few echymoses from previous IV sites (pt pulled out few times her ivs) blood cx + VREF ; UCx Klebsiella; on IV ATB per ID PLT 10, WBC 1.6 started on IV IG per heme d/w pt and daughter Dayana all the above; prognosis guarded - Current Medication List Current Medications: Active Medications Acetaminophen (Tylenol -) 650 mg PO Q6H PRN PRN Reason: FEVER Last Admin: 05/08/18 13:52 Dose: 650 mg Acetaminophen (Tylenol -) 650 mg PO DAILY@1130 RYAN Stop: 05/14/18 11:31 Last Admin: 05/10/18 11:55 Dose: 650 mg Allopurinol (Zyloprim -) 300 mg PO DAILY [facility] Last Admin: 05/10/18 11:00 Dose: 300 mg Divalproex Sodium (Depakote Sprinkle Caps -) 125 mg PO BID [facility] Last Admin: 05/10/18 21:02 Dose: 125 mg Folic Acid (Folic Acid -) 1 mg PO DAILY [facility] Last Admin: 05/10/18 10:49 Dose: 1 mg Lactated Ringer's (Lactated Ringers Solution) 1,000 ml in 1,000 mls @ 75 mls/ hr IV ASDIR [facility] Last Admin: 05/11/18 04:14 Dose: Not Given Piperacillin Sod/Tazobactam (Sod 3.375 gm/ Dextrose) 50 mls @ 100 mls/hr IVPB Q8H-IV RYAN; Protocol Last Admin: 05/11/18 01:27 Dose: 100 mls/hr Immune Globulin (Gammaked 20 Gram/200 Ml Vial) 20 gm in 200 mls @ 100 mls/hr IVPB DAILY@1200 RYAN; Protocol Stop: 05/14/18 13:59 Last Admin: 05/10/18 11:57 Dose: 100 mls/hr Daptomycin 300 mg/ Sodium (Chloride) 50 mls @ 50 mls/hr IVPB DAILY [facility]; Protocol Last Admin: 05/10/18 13:27 Dose: 50 mls/hr Methylprednisolone Sodium Succinate (Solu-Medrol -) 60 mg IVPUSH DAILY [facility] Last Admin: 05/10/18 11:01 Dose: 60 mg Oxymetazoline HCl (Afrin -) 2 spray NS Q12H PRN PRN Reason: NASAL CONGESTION Last Admin: 05/10/18 11:02 Dose: 2 spray Pantoprazole Sodium (Protonix -) 40 mg PO DAILY [facility] Last Admin: 05/10/18 10:57 Dose: 40 mg - Objective Vital Signs: Vital Signs Temperature 98.1 F 05/10/18 14:00 Pulse Rate 70 05/10/18 14:00 Respiratory Rate 18 05/10/18 14:00 Blood Pressure 117/60 05/10/18 14:00 O2 Sat by Pulse Oximetry (%) 95 05/10/18 21:00 Constitutional: Yes: No Distress, Calm Eyes: Yes: Conjunctiva Clear HENT: Yes: Atraumatic Neck: Yes: Supple Cardiovascular: Yes: Regular Rate and Rhythm Respiratory: Yes: CTA Bilaterally Gastrointestinal: Yes: Soft. No: Tenderness Genitourinary: No: CVA Tenderness - Left, CVA Tenderness - Right Musculoskeletal: No: Joint Stiffness, Joint Swelling Extremities: No: Cold, Cool, Cyanosis Edema: Yes (R hand ) Integumentary: Yes: Bruising, Petechiae. No: Rash, Venous Stasis Changes Neurological: Yes: Alert, Oriented ...Motor Strength: WNL Psychiatric: Yes: Alert, Oriented. No: Agitated, Suicidal Ideation Labs: CBC, BMP 05/10/18 06:30 05/10/18 06:30 INR, PTT INR 1.23 (0.83-1.09) H 05/10/18 06:30 Fibrinogen 390.0 mg/dL (238-498) 05/09/18 06:00 - ....Imaging Other: Report Reviewed Assessment/Plan The patient is a 72 year old female, with a significant past medical history of HTN, CLL (not on any treatment), thalassemia, anxiety, kidney stones, gallstones , admitted with fever. The patient was recently admitted for choledocholithiasis which subsequently got ERCP, complicated by GI bleed. Possible colitis and positive gallstones dropping PLT s/p recent rituxan; sepsis positive blood cx VREF/blood, Klebsiella / urine IV antibiotics; d/w ID dr Kothari transfuse PLT and heme eval d/w dr Garcia; added IV steroids - with GI Pfx; IV IG GI f/u f/u labs, CX d/w pt do not get OOB alone, falls risks; call staff if needs OOB - she understood prognosis guarded d/w pt and daughter 1:1 and prn vest for safety; psychiatry eval for anxiety t time 45 min
[2018-05-11 07:33] LABS: BASO % 0.8 % (0-2.0); EOS % 0.1 % (0-4.5); HEMATOCRIT 23.8 % (32.4-45.2); HEMOGLOBIN 8.6 GM/dL (10.7-15.3); LYMPH % 37.3 % (8-40); MCH 28.9 pg (25.7-33.7); MCHC 35.9 g/dl (32.0-36.0); MEAN CELL VOLUME 80.5 fl (80-96); MEAN PLT VOLUME 8.9 fl (7.5-11.1); MONO % 1.9 % (3.8-10.2); NEUT % 59.9 % (42.8-82.8); RBC 2.96 M/mm3 (3.60-5.2); RDW 15.2 % (11.6-15.6)
[2018-05-11 07:46] LABS: ALBUMIN 2.3 g/dl (3.4-5.0); ALK PHOS 44 U/L (45-117); ANION GAP 4 MMOL/L (8-16); BILIRUBIN,DIRECT 0.4 mg/dL (0.0-0.2); BILIRUBIN,TOTAL 1.6 mg/dL (0.2-1); BLOOD UREA NITROGEN 27 mg/dL (7-18); CALCIUM 8.5 mg/dL (8.5-10.1); CHLORIDE 106 mmol/L (98-107); CO2 29 mmol/L (21-32); CREATININE 0.9 mg/dL (0.55-1.3); GLUCOSE,RANDOM 142 mg/dL (74-106); POTASSIUM 3.4 mmol/L (3.5-5.1); SGOT/AST 9 U/L (15-37); SGPT/ALT 13 U/L (13-61); SODIUM 139 mmol/L (136-145); TOT PROT 5.3 g/dl (6.4-8.2)
[2018-05-11 07:50] LABS: PLATELET COUNT 10 K/MM3 (134-434); WHITE BLOOD COUNT 1.6 K/mm3 (4.0-10.0)
[2018-05-11] MEDS ORDERED: PIPERACILLIN/TAZOBACTAM 3.375 GM VIAL IVPB ONE ×2 (08:53→16:57)
[2018-05-11] MEDS ORDERED: DEXTROSE 5%-WATER - 50 ML IVPB ONE ×2 (08:53→16:57)
[2018-05-11] MEDS: DAPTOMYCIN 300 MG in SODIUM CHLORIDE 50 ML IVPB SCH (09:36)
[2018-05-11] MEDS: methylPREDNISolone NA SUCC 40 MG/1 ML VIAL IVPUSH SCH (09:37)
[2018-05-11] MEDS: FOLIC ACID 1 MG TABLET (FP) PO SCH (09:37)
[2018-05-11] MEDS: PANTOPRAZOLE 40 MG TABLET (FP) PO SCH (09:37)
[2018-05-11] MEDS: DIVALPROEX SODIUM 125 MG SPRINKLE CAPS PO SCH (09:38)
[2018-05-11] MEDS: ALLOPURINOL 300 MG TABLET (FP) PO SCH (09:39)
[2018-05-11] MEDS: POTASSIUM CHLORIDE TABS 10 MEQ TABLET.ER (FP) PO SCH (11:59)
[2018-05-11 12:01] LABS: ANISOCYTOSIS 2+; MACROCYTOSIS 0; PLATELET ESTIMATE DECREASED; TEAR DROP CELLS 1+
[2018-05-11] MEDS: ACETAMINOPHEN 325 MG TABLET (FP) PO SCH (12:13)
[2018-05-11] MEDS: IMMUNE GLOBULIN IVPB SCH (12:14)
[2018-05-11] MEDS: [UNRECOGNIZED DRUG - OTHER] IVPB SCH (12:14)
--- NOTE | 2018-05-11 15:10 | CON.PSY ---
Psychiatry Consult Chief Complaint: 72 Year old fermale with Leukemia woith [id number] platelets. patient had been falling frequently. patient according to staff she has been very anxios and agitated. Symptoms: reports: Anxiety - Previous Psychiatric Treatment Outpatient: None Inpatient: None - Previous Substance Abuse Treatment Outpatient: None Inpatient: None - Current Medications Current Medications: Active Medications Acetaminophen (Tylenol -) 650 mg PO Q6H PRN PRN Reason: FEVER Last Admin: 05/08/18 13:52 Dose: 650 mg Acetaminophen (Tylenol -) 650 mg PO DAILY@1130 RYAN Stop: 05/14/18 11:31 Last Admin: 05/11/18 12:13 Dose: 650 mg Allopurinol (Zyloprim -) 300 mg PO DAILY RYAN Last Admin: 05/11/18 09:39 Dose: 300 mg Folic Acid (Folic Acid -) 1 mg PO DAILY [facility] Last Admin: 05/11/18 09:37 Dose: 1 mg Lactated Ringer's (Lactated Ringers Solution) 1,000 ml in 1,000 mls @ 75 mls/ hr IV ASDIR RYAN Last Admin: 05/11/18 04:14 Dose: Not Given Piperacillin Sod/Tazobactam (Sod 3.375 gm/ Dextrose) 50 mls @ 100 mls/hr IVPB Q8H-IV RYAN; Protocol Last Admin: 05/11/18 09:39 Dose: 100 mls/hr Immune Globulin (Gammaked 20 Gram/200 Ml Vial) 20 gm in 200 mls @ 100 mls/hr IVPB DAILY@1200 RYAN; Protocol Stop: 05/14/18 13:59 Last Admin: 05/11/18 12:14 Dose: 100 mls/hr Daptomycin 300 mg/ Sodium (Chloride) 50 mls @ 50 mls/hr IVPB DAILY [facility]; Protocol Last Admin: 05/11/18 09:36 Dose: 50 mls/hr Methylprednisolone Sodium Succinate (Solu-Medrol -) 60 mg IVPUSH DAILY [facility] Last Admin: 05/11/18 09:37 Dose: 60 mg Oxymetazoline HCl (Afrin -) 2 spray NS Q12H PRN PRN Reason: NASAL CONGESTION Last Admin: 05/10/18 11:02 Dose: 2 spray Pantoprazole Sodium (Protonix -) 40 mg PO DAILY [facility] Last Admin: 05/11/18 09:37 Dose: 40 mg Potassium Chloride (K-Dur -) 10 meq PO DAILY RYAN Last Admin: 05/11/18 11:59 Dose: 10 meq - Allergies Allergies: Allergies Allergy/AdvReac Type Severity Reaction Status Date / Time No Known Drug Allergies Allergy Verified 02/15/18 08:23 - Current Living Status Usual Living Arrangement: With Child - Current Mental Status Evaluation Appearance: Disheveled Attitude: Guarded - Affect Affect: Constrictive Appropriateness: Not Appropriate - Mood Mood: Irritable - Speech/Language Expressive: Delayed - Psychomotor Activity Psychomotor Activity: Hyperactive - Thought Process Thought Process: Circumstantial - Thought Content Hallucinations: Absent Delusions: Absent - Self Perception Self Perception: No Impairment - Cognition Attention: Diminished Memory, Immediate Recall: Impaired Memory, Short Term: 1/3 Memory, Remote with Promptin/3 - Concentration Serial Sevens Intact: No Simple Calculations Intact: No - Abstraction Proverb Interpretation: Impaired Judgement: Moderately Impaired - Insight Insight: Impaired - Impulse Control Impulse Control: Moderately Impaired - Suicidal Ideation Suicidal Ideation: No - Homicidal Ideation Homicidal Ideation: No Assessment/Plan 1) Zyprexa2.5mg po bid.
--- NOTE | 2018-05-11 18:53 | PN ---
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, Physician History of Present Illness: AWAKE, CONFUSED OFFERS NO COMPLAINTS TEMPS DOWN AFEBRILE BC VRE URINE KLEBSIELLA PANCYTOPENIC - Current Medication List Current Medications: Active Medications Acetaminophen (Tylenol -) 650 mg PO Q6H PRN PRN Reason: FEVER Last Admin: 05/08/18 13:52 Dose: 650 mg Acetaminophen (Tylenol -) 650 mg PO DAILY@1130 RYAN Stop: 05/14/18 11:31 Last Admin: 05/11/18 12:13 Dose: 650 mg Allopurinol (Zyloprim -) 300 mg PO DAILY [facility]AN Last Admin: 05/11/18 09:39 Dose: 300 mg Folic Acid (Folic Acid -) 1 mg PO DAILY [facility] Last Admin: 05/11/18 09:37 Dose: 1 mg Lactated Ringer's (Lactated Ringers Solution) 1,000 ml in 1,000 mls @ 75 mls/ hr IV ASDIR RYAN Last Admin: 05/11/18 04:14 Dose: Not Given Piperacillin Sod/Tazobactam (Sod 3.375 gm/ Dextrose) 50 mls @ 100 mls/hr IVPB Q8H-IV RYAN; Protocol Last Admin: 05/11/18 17:18 Dose: 100 mls/hr Immune Globulin (Gammaked 20 Gram/200 Ml Vial) 20 gm in 200 mls @ 100 mls/hr IVPB DAILY@1200 RYAN; Protocol Stop: 05/14/18 13:59 Last Admin: 05/11/18 12:14 Dose: 100 mls/hr Daptomycin 300 mg/ Sodium (Chloride) 50 mls @ 50 mls/hr IVPB DAILY [facility]; Protocol Last Admin: 05/11/18 09:36 Dose: 50 mls/hr Methylprednisolone Sodium Succinate (Solu-Medrol -) 60 mg IVPUSH DAILY [facility] Last Admin: 05/11/18 09:37 Dose: 60 mg Olanzapine (Zyprexa -) 2.5 mg PO BID [facility] Oxymetazoline HCl (Afrin -) 2 spray NS Q12H PRN PRN Reason: NASAL CONGESTION Last Admin: 05/10/18 11:02 Dose: 2 spray Pantoprazole Sodium (Protonix -) 40 mg PO DAILY [facility] Last Admin: 05/11/18 09:37 Dose: 40 mg Potassium Chloride (K-Dur -) 10 meq PO DAILY [facility] Last Admin: 05/11/18 11:59 Dose: 10 meq - Objective Vital Signs: Vital Signs Temperature 98.6 F 05/11/18 17:21 Pulse Rate 84 05/11/18 17:21 Respiratory Rate 20 05/11/18 17:21 Blood Pressure 153/74 05/11/18 17:21 O2 Sat by Pulse Oximetry (%) 95 05/10/18 21:00 Constitutional: Yes: No Distress Eyes: Yes: Conjunctiva Clear Cardiovascular: Yes: Regular Rate and Rhythm, S1, S2 Respiratory: Yes: Diminished Gastrointestinal: Yes: Normal Bowel Sounds, Soft Extremities: Yes: Other (PETECHIAE LE) Edema: No Labs: CBC, BMP 05/11/18 06:00 05/11/18 06:00 INR, PTT INR 1.23 (0.83-1.09) H 05/10/18 06:30 Fibrinogen 390.0 mg/dL (238-498) 05/09/18 06:00 Assessment/Plan SEPSIS +BC VRE pANCYTOPENIA LEUKOPENIA EPISTAXIS/GI BLEED CONTINUE DAPTOMYCIN 6MG/KG LEVAQUIN FOR UTI
--- NOTE | 2018-05-11 19:17 | PN ---
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 (short form) - Note 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: Patient seen and examined Ecchymoses, petechiae trunk extremities , oral cavity Last Vital Signs Temp Pulse Resp BP Pulse Ox 98.6 F 84 20 153/74 95 05/11/18 17:21 05/11/18 17:21 05/11/18 17:21 05/11/18 17:21 05/10/18 21:00 HEENT: FELIBERTO, EOM Intact Oropharynx: No thrush, No mucositis manifestations of bleeding Cor: RSR, No murmurs, No gallops Lungs: Clear to P&A Abd: Soft, Normal bowel sounds, No organomegaly Ext:No significant edema Skin: ecchymoses, petechiae CBC, BMP 05/11/18 06:00 05/11/18 06:00 Current Medications Generic Name Dose Route Start Last Admin Trade Name Freq PRN Reason Stop Dose Admin Acetaminophen 650 mg 05/07/18 16:42 05/08/18 13:52 Tylenol - PO 650 mg Q6H PRN Administration FEVER Acetaminophen 650 mg 05/10/18 11:30 05/11/18 12:13 Tylenol - PO 05/14/18 11:31 650 mg DAILY@1130 RYAN Administration Allopurinol 300 mg 05/08/18 10:00 05/11/18 09:39 Zyloprim - PO 300 mg DAILY RYAN Administration Folic Acid 1 mg 05/08/18 10:00 05/11/18 09:37 Folic Acid - PO 1 mg DAILY RYAN Administration Lactated Ringer's 1,000 ml in 1,000 mls @ 75 mls/hr 05/07/18 23:30 05/11/18 04:14 Lactated Ringers Solution IV Not Given ASDIR [facility] Immune Globulin 20 gm in 200 mls @ 100 mls/hr 05/10/18 12:00 05/11/18 12:14 Gammaked 20 Gram/200 Ml Vial IVPB 05/14/18 13:59 100 mls/hr DAILY@1200 RYAN Administration Protocol Daptomycin 300 mg/ Sodium 50 mls @ 50 mls/hr 05/10/18 13:00 05/11/18 09:36 Chloride IVPB 50 mls/hr DAILY RYAN Administration Protocol Levofloxacin 500 mg 05/12/18 10:00 Levaquin - PO DAILY [facility] Methylprednisolone Sodium Succinate 60 mg 05/10/18 10:00 05/11/18 09:37 Solu-Medrol - IVPUSH 60 mg DAILY RYAN Administration Olanzapine 2.5 mg 05/11/18 22:00 Zyprexa - PO BID RYAN Oxymetazoline HCl 2 spray 05/09/18 09:28 05/10/18 11:02 Afrin - NS 2 spray Q12H PRN Administration NASAL CONGESTION Pantoprazole Sodium 40 mg 05/10/18 10:00 05/11/18 09:37 Protonix - PO 40 mg DAILY RYAN Administration Potassium Chloride 10 meq 05/11/18 10:15 05/11/18 11:59 K-Dur - PO 10 meq DAILY RYAN Administration Impression: CLL pancytopenia VRE-blood Klebsiella - urine seen by ID, psychiatry receiving blood , steroids, gamma globulin IV 's a problem, Confusion problematic Plan: continue above platelets prn bleeding as little response spoke with daughter humberto
[2018-05-11] MEDS ORDERED: TBO-FILGRASTIM 300 MCG/0.5 ML DISP.SYRINGE SQ ONE (21:00)
[2018-05-11] MEDS: OLANZapine 2.5 MG TABLET PO SCH (21:14)
[2018-05-12] MEDS ORDERED: PT OWN MED DRAWER 7, Y5N ONE ×3 (05:57→20:51)
--- NOTE | 2018-05-12 08:53 | PN ---
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, Physician Chief Complaint: in bed awake alert denies any c/o on 1:1 - Current Medication List Current Medications: Active Medications Acetaminophen (Tylenol -) 650 mg PO Q6H PRN PRN Reason: FEVER Last Admin: 05/08/18 13:52 Dose: 650 mg Acetaminophen (Tylenol -) 650 mg PO DAILY@1130 RYAN Stop: 05/14/18 11:31 Last Admin: 05/11/18 12:13 Dose: 650 mg Allopurinol (Zyloprim -) 300 mg PO DAILY [facility] Last Admin: 05/11/18 09:39 Dose: 300 mg Folic Acid (Folic Acid -) 1 mg PO DAILY [facility] Last Admin: 05/11/18 09:37 Dose: 1 mg Lactated Ringer's (Lactated Ringers Solution) 1,000 ml in 1,000 mls @ 75 mls/ hr IV ASDIR [facility] Last Admin: 05/11/18 04:14 Dose: Not Given Immune Globulin (Gammaked 20 Gram/200 Ml Vial) 20 gm in 200 mls @ 100 mls/hr IVPB DAILY@1200 RYAN; Protocol Stop: 05/14/18 13:59 Last Admin: 05/11/18 12:14 Dose: 100 mls/hr Daptomycin 300 mg/ Sodium (Chloride) 50 mls @ 50 mls/hr IVPB DAILY [facility]; Protocol Last Admin: 05/11/18 09:36 Dose: 50 mls/hr Levofloxacin (Levaquin -) 500 mg PO DAILY [facility] Levofloxacin (Levaquin -) 500 mg PO ONCE ONE Stop: 05/12/18 10:01 Methylprednisolone Sodium Succinate (Solu-Medrol -) 60 mg IVPUSH DAILY [facility] Last Admin: 05/11/18 09:37 Dose: 60 mg Olanzapine (Zyprexa -) 2.5 mg PO BID [facility] Last Admin: 05/11/18 21:14 Dose: 2.5 mg Oxymetazoline HCl (Afrin -) 2 spray NS Q12H PRN PRN Reason: NASAL CONGESTION Last Admin: 05/10/18 11:02 Dose: 2 spray Pantoprazole Sodium (Protonix -) 40 mg PO DAILY [facility] Last Admin: 05/11/18 09:37 Dose: 40 mg Potassium Chloride (K-Dur -) 10 meq PO DAILY [facility] Last Admin: 05/11/18 11:59 Dose: 10 meq Tbo-Filgrastim (Granix -) 300 mcg SQ DAILY [facility] - Objective Vital Signs: Vital Signs Temperature 97.7 F 05/12/18 08:22 Pulse Rate 78 05/12/18 08:22 Respiratory Rate 18 05/12/18 08:22 Blood Pressure 146/82 05/12/18 08:22 O2 Sat by Pulse Oximetry (%) 95 05/11/18 21:00 Constitutional: Yes: No Distress, Calm Eyes: Yes: Conjunctiva Clear HENT: Yes: Atraumatic Neck: Yes: Supple Cardiovascular: Yes: Regular Rate and Rhythm Respiratory: Yes: CTA Bilaterally Gastrointestinal: Yes: Soft. No: Tenderness Genitourinary: No: Hematuria Musculoskeletal: No: Joint Stiffness, Joint Swelling Extremities: Yes: Other (R UE sq hematoma / venous aneurysm after pt pulled out IV from R arm). No: Cold, Cool Edema: No Integumentary: Yes: Bruising, Petechiae. No: Rash, Venous Stasis Changes Neurological: Yes: Alert, Oriented ...Motor Strength: WNL Psychiatric: Yes: Alert, Oriented. No: Agitated, Suicidal Ideation Labs: INR, PTT INR 1.23 (0.83-1.09) H 05/10/18 06:30 Fibrinogen 390.0 mg/dL (238-498) 05/09/18 06:00 - ....Imaging Other: Report Reviewed Assessment/Plan The patient is a 72 year old female, with a significant past medical history of HTN, CLL (not on any treatment), thalassemia, anxiety, kidney stones, gallstones , admitted with fever. The patient was recently admitted for choledocholithiasis which subsequently got ERCP, complicated by GI bleed. dropping PLT s/p recent rituxan; sepsis positive blood cx VREF/blood, Klebsiella / urine IV antibiotics per ID transfuse PLT and PRBC per heme; added IV steroids - with GI Pfx; IV IG GI f/u f/u labs, CX d/w pt do not get OOB alone, falls risks; call staff if needs OOB also d/w her again do not pull out ivs from her arms - she said she understood and she does not prognosis guarded d/w pt and daughter d/w staff needs to press extra time if pt pulles out IVs high bleeding risk b/o very low PLT. 1:1 and prn vest for safety; psychiatry eval for anxiety
[2018-05-12 08:58] LABS: BASO % 0.4 % (0-2.0); EOS % 0.1 % (0-4.5); HEMATOCRIT 27.9 % (32.4-45.2); HEMOGLOBIN 9.8 GM/dL (10.7-15.3); LYMPH % 10.7 % (8-40); MCH 29.6 pg (25.7-33.7); MCHC 35.4 g/dl (32.0-36.0); MEAN CELL VOLUME 83.6 fl (80-96); MEAN PLT VOLUME 8.8 fl (7.5-11.1); MONO % 2.5 % (3.8-10.2); NEUT % 86.3 % (42.8-82.8); PLATELET COUNT 11 K/MM3 (134-434); RBC 3.33 M/mm3 (3.60-5.2); RDW 14.9 % (11.6-15.6)
[2018-05-12] MEDS: LACTATED RINGERS SOLUTION 1,000 ML/1,000 ML INFUS.BAG IV SCH (09:14)
[2018-05-12] MEDS: methylPREDNISolone NA SUCC 40 MG/1 ML VIAL IVPUSH SCH (09:25)
[2018-05-12] MEDS: FOLIC ACID 1 MG TABLET (FP) PO SCH (09:26)
[2018-05-12] MEDS: ALLOPURINOL 300 MG TABLET (FP) PO SCH (09:26)
[2018-05-12] MEDS: PANTOPRAZOLE 40 MG TABLET (FP) PO SCH (09:26)
[2018-05-12] MEDS: POTASSIUM CHLORIDE TABS 10 MEQ TABLET.ER (FP) PO SCH (09:26)
[2018-05-12] MEDS: OLANZapine 2.5 MG TABLET PO SCH ×2 (09:26→21:46)
[2018-05-12] MEDS: TBO-FILGRASTIM 300 MCG/0.5 ML DISP.SYRINGE SQ SCH ×2 (09:27→11:04)
[2018-05-12 09:42] LABS: ALBUMIN 2.6 g/dl (3.4-5.0); ALK PHOS 70 U/L (45-117); ANION GAP 8 MMOL/L (8-16); BILIRUBIN,TOTAL 1.2 mg/dL (0.2-1); BLOOD UREA NITROGEN 25 mg/dL (7-18); CALCIUM 9.1 mg/dL (8.5-10.1); CHLORIDE 106 mmol/L (98-107); CO2 29 mmol/L (21-32); CREATININE 0.9 mg/dL (0.55-1.3); GLUCOSE,RANDOM 107 mg/dL (74-106); POTASSIUM 3.5 mmol/L (3.5-5.1); SGOT/AST 29 U/L (15-37); SGPT/ALT 26 U/L (13-61); SODIUM 143 mmol/L (136-145); TOT PROT 6.4 g/dl (6.4-8.2)
[2018-05-12] MEDS: DAPTOMYCIN 300 MG in SODIUM CHLORIDE 50 ML IVPB SCH (11:17)
[2018-05-12] MEDS: [UNRECOGNIZED DRUG - OTHER] IVPB SCH (11:55)
[2018-05-12] MEDS: IMMUNE GLOBULIN IVPB SCH (11:55)
[2018-05-12 12:08] LABS: ANISOCYTOSIS 1+; MACROCYTOSIS 0; PLATELET ESTIMATE DECREASED; TEAR DROP CELLS 1+; TOXIC GRANULATION 1+
[2018-05-12] MEDS: ACETAMINOPHEN 325 MG TABLET (FP) PO SCH (12:49)
--- NOTE | 2018-05-12 12:52 | PN ---
Physical Exam: SUBJECTIVE: Patient seen and examined; no new complaints; wbc count increased from 1.6 to 10 ; did not receive IVIG today. No fever, chills OBJECTIVE: Vital Signs Period Temp Pulse Resp BP Sys/Borjas Pulse Ox Last 24 Hr 97.4 F-98.6 F 68-84 18-20 142-160/74-82 95 GENERAL: The patient is awake, alert, and fully oriented, in no acute distress. HEAD: Normal with no signs of trauma. ENT: Ears normal, nares patent, oropharynx clear without exudates, dry mucous membranes with dried crusted old blood NECK: Trachea midline, full range of motion, supple. LUNGS: bilateral rhonchi with insp/exp HEART: Regular rate and rhythm, S1, S2 without murmur, rub or gallop. ABDOMEN: Soft, nontender, nondistended, normoactive bowel sounds, no guarding, no rebound, no hepatosplenomegaly, no masses. EXTREMITIES: 2+ pulses, warm, well-perfused, no edema. NEUROLOGICAL: Cranial nerves II through XII grossly intact. Normal speech, gait not observed. PSYCH: Normal mood, normal affect. SKIN: scattered echymosis; large area echymosis on right upper back Laboratory Results - last 24 hr 05/08/18 05/11/18 05/12/18 12:40 13:50 08:26 WBC 10.0 RBC 3.33 L Hgb 9.8 L Hct 27.9 L D MCV 83.6 MCH 29.6 MCHC 35.4 RDW 14.9 Plt Count 11 L* MPV 8.8 Absolute Neuts (auto) 8.6 H Neutrophils % 86.3 H D Neutrophils % (Manual) 72.0 Band Neutrophils % 9.0 Lymphocytes % 10.7 D Lymphocytes % (Manual) 9.0 D Monocytes % 2.5 L Monocytes % (Manual) 5 D Eosinophils % 0.1 Eosinophils % (Manual) 0.0 Basophils % 0.4 Basophils % (Manual) 0.0 Myelocytes % (Man) 2 D Promyelocytes % (Man) 0 Blast Cells % (Manual) 0 Nucleated RBC % 0 Metamyelocytes 3 H D Hypochromia 0 Toxic Granulation 1+ Platelet Estimate Decreased Polychromasia 1+ Poikilocytosis 2+ Anisocytosis 1+ Microcytosis 1+ Macrocytosis 0 Tear Drop Cells 1+ Acanthocytes (Spur) 1+ Schistocytes 1+ Sodium Potassium Chloride Carbon Dioxide Anion Gap BUN Creatinine Creat Clearance w eGFR Random Glucose Calcium Total Bilirubin AST ALT Alkaline Phosphatase Total Protein Albumin Blood Type O POSITIVE O POSITIVE Antibody Screen Negative Negative Crossmatch See Detail See Detail 05/12/18 08:26 WBC RBC Hgb Hct MCV MCH MCHC RDW Plt Count MPV Absolute Neuts (auto) Neutrophils % Neutrophils % (Manual) Band Neutrophils % Lymphocytes % Lymphocytes % (Manual) Monocytes % Monocytes % (Manual) Eosinophils % Eosinophils % (Manual) Basophils % Basophils % (Manual) Myelocytes % (Man) Promyelocytes % (Man) Blast Cells % (Manual) Nucleated RBC % Metamyelocytes Hypochromia Toxic Granulation Platelet Estimate Polychromasia Poikilocytosis Anisocytosis Microcytosis Macrocytosis Tear Drop Cells Acanthocytes (Spur) Schistocytes Sodium 143 Potassium 3.5 Chloride 106 Carbon Dioxide 29 Anion Gap 8 BUN 25 H Creatinine 0.9 Creat Clearance w eGFR > 60 Random Glucose 107 H Calcium 9.1 Total Bilirubin 1.2 H AST 29 ALT 26 Alkaline Phosphatase 70 Total Protein 6.4 Albumin 2.6 L Blood Type Antibody Screen Crossmatch Active Medications Generic Name Dose Route Start Last Admin Trade Name Freq PRN Reason Stop Dose Admin Acetaminophen 650 mg 05/07/18 16:42 05/08/18 13:52 Tylenol - PO 650 mg Q6H PRN Administration FEVER Acetaminophen 650 mg 05/10/18 11:30 05/12/18 12:49 Tylenol - PO 05/14/18 11:31 650 mg DAILY@1130 RYAN Administration Allopurinol 300 mg 05/08/18 10:00 05/12/18 09:26 Zyloprim - PO 300 mg DAILY RYAN Administration Folic Acid 1 mg 05/08/18 10:00 05/12/18 09:26 Folic Acid - PO 1 mg DAILY RYAN Administration Lactated Ringer's 1,000 ml in 1,000 mls @ 75 mls/hr 05/07/18 23:30 05/12/18 09:14 Lactated Ringers Solution IV Not Given ASDIR RYAN Immune Globulin 20 gm in 200 mls @ 100 mls/hr 05/10/18 12:00 05/12/18 11:55 Gammaked 20 Gram/200 Ml Vial IVPB 05/14/18 13:59 100 mls/hr DAILY@1200 RYAN Administration Protocol Daptomycin 300 mg/ Sodium 50 mls @ 50 mls/hr 05/10/18 13:00 05/12/18 11:17 Chloride IVPB 50 mls/hr DAILY RYAN Administration Protocol Levofloxacin 500 mg 05/12/18 10:00 Levaquin - PO DAILY R[facility] Methylprednisolone Sodium Succinate 60 mg 05/10/18 10:00 05/12/18 09:25 Solu-Medrol - IVPUSH 60 mg DAILY R[facility]AN Administration Olanzapine 2.5 mg 05/11/18 22:00 05/12/18 09:26 Zyprexa - PO 2.5 mg BID RYAN Administration Oxymetazoline HCl 2 spray 05/09/18 09:28 05/10/18 11:02 Afrin - NS 2 spray Q12H PRN Administration NASAL CONGESTION Pantoprazole Sodium 40 mg 05/10/18 10:00 05/12/18 09:26 Protonix - PO 40 mg DAILY RYAN Administration Potassium Chloride 10 meq 05/11/18 10:15 05/12/18 09:26 K-Dur - PO 10 meq DAILY RYAN Administration Tbo-Filgrastim 300 mcg 05/12/18 10:00 05/12/18 11:04 Granix - SQ Not Given DAILY R[facility]AN ASSESSMENT/PLAN: 72F with HTN, choledocholithiasis, hx UGIB, CLL (recently started on Rituxan, s/ p 2 doses so far) admitted yesterday with fever, nausea, diarrhea. Found to have gram + bacteremia. Started on broad spectrum Abx. CLL pancytopenia VRE-blood Klebsiella - urine seen by ID, psychiatry s/p PRBC receiving, steroids, gamma globulin -cont steroids, monitor cbc -platelets prn -ivig held today due to wbc increase; most likely due to steroids; no fever chills, vitals stable Will follow Visit type - Emergency Visit Emergency Visit: Yes ED Registration Date: 05/07/18 Care time: The patient presented to the Emergency Department on the above date and was hospitalized for further evaluation of their emergent condition. - New Patient This patient is new to me today: No - Critical Care Critical Care patient: No
--- NOTE | 2018-05-12 16:11 | PN ---
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, Physician History of Present Illness: AWAKE, CONFUSED OFFERS NO COMPLAINTS TEMPS DOWN AFEBRILE BC VRE URINE KLEBSIELLA WBC IMPROVED - Current Medication List Current Medications: Active Medications Acetaminophen (Tylenol -) 650 mg PO Q6H PRN PRN Reason: FEVER Last Admin: 05/08/18 13:52 Dose: 650 mg Acetaminophen (Tylenol -) 650 mg PO DAILY@1130 RYAN Stop: 05/14/18 11:31 Last Admin: 05/12/18 12:49 Dose: 650 mg Allopurinol (Zyloprim -) 300 mg PO DAILY [facility] Last Admin: 05/12/18 09:26 Dose: 300 mg Folic Acid (Folic Acid -) 1 mg PO DAILY [facility] Last Admin: 05/12/18 09:26 Dose: 1 mg Lactated Ringer's (Lactated Ringers Solution) 1,000 ml in 1,000 mls @ 75 mls/ hr IV ASDIR [facility] Last Admin: 05/12/18 09:14 Dose: Not Given Immune Globulin (Gammaked 20 Gram/200 Ml Vial) 20 gm in 200 mls @ 100 mls/hr IVPB DAILY@1200 RYAN; Protocol Stop: 05/14/18 13:59 Last Admin: 05/12/18 11:55 Dose: 100 mls/hr Daptomycin 300 mg/ Sodium (Chloride) 50 mls @ 50 mls/hr IVPB DAILY [facility]; Protocol Last Admin: 05/12/18 11:17 Dose: 50 mls/hr Levofloxacin (Levaquin -) 250 mg PO DAILY [facility] Methylprednisolone Sodium Succinate (Solu-Medrol -) 60 mg IVPUSH DAILY [facility] Last Admin: 05/12/18 09:25 Dose: 60 mg Olanzapine (Zyprexa -) 2.5 mg PO BID [facility] Last Admin: 05/12/18 09:26 Dose: 2.5 mg Oxymetazoline HCl (Afrin -) 2 spray NS Q12H PRN PRN Reason: NASAL CONGESTION Last Admin: 05/10/18 11:02 Dose: 2 spray Pantoprazole Sodium (Protonix -) 40 mg PO DAILY [facility] Last Admin: 05/12/18 09:26 Dose: 40 mg Potassium Chloride (K-Dur -) 10 meq PO DAILY [facility] Last Admin: 05/12/18 09:26 Dose: 10 meq Tbo-Filgrastim (Granix -) 300 mcg SQ DAILY [facility] Last Admin: 05/12/18 11:04 Dose: Not Given - Objective Vital Signs: Vital Signs Temperature 97.7 F 05/12/18 08:22 Pulse Rate 78 05/12/18 08:22 Respiratory Rate 18 05/12/18 08:22 Blood Pressure 146/82 05/12/18 08:22 O2 Sat by Pulse Oximetry (%) 95 05/11/18 21:00 Constitutional: Yes: No Distress Eyes: Yes: Conjunctiva Clear Cardiovascular: Yes: Regular Rate and Rhythm, S1, S2 Respiratory: Yes: Diminished Gastrointestinal: Yes: Normal Bowel Sounds, Soft. No: Tenderness Edema: No Integumentary: Yes: Petechiae Labs: CBC, BMP 05/12/18 08:26 05/12/18 08:26 INR, PTT INR 1.23 (0.83-1.09) H 05/10/18 06:30 Fibrinogen 390.0 mg/dL (238-498) 05/09/18 06:00 Assessment/Plan SEPSIS +BC VRE UTI S/P NEPISTAXIS/GI BLEED CONTINUE DAPTOMYCIN 6MG/KG LEVAQUIN FOR UTI
[2018-05-12] MEDS ORDERED: LORazepam 1 MG TABLET PO STA (18:39)
--- NOTE | 2018-05-12 23:20 | PN ---
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 (short form) - Note 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: Patient seen and examined Confused AFVSS Cor: RSR, No murmurs, No gallops Lungs: Clear to P&A Abd: Soft, Normal bowel sounds, No organomegaly Ext:No significant edema Labs/Meds reviewed A/P 72 y/o patient with CLL with VRE/klebsiella sepsis/thrombocytopenia/anemia On IVIG Hold neupogen
--- NOTE | 2018-05-13 08:31 | PN ---
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, Physician Chief Complaint: in bed awake afebrile no c/o was agitated earlier to have psychiatry f/u d/w staff - Current Medication List Current Medications: Active Medications Acetaminophen (Tylenol -) 650 mg PO Q6H PRN PRN Reason: FEVER Last Admin: 05/08/18 13:52 Dose: 650 mg Acetaminophen (Tylenol -) 650 mg PO DAILY@1130 RYAN Stop: 05/14/18 11:31 Last Admin: 05/12/18 12:49 Dose: 650 mg Allopurinol (Zyloprim -) 300 mg PO DAILY [facility] Last Admin: 05/12/18 09:26 Dose: 300 mg Folic Acid (Folic Acid -) 1 mg PO DAILY [facility] Last Admin: 05/12/18 09:26 Dose: 1 mg Lactated Ringer's (Lactated Ringers Solution) 1,000 ml in 1,000 mls @ 75 mls/ hr IV ASDIR [facility] Last Admin: 05/12/18 09:14 Dose: Not Given Immune Globulin (Gammaked 20 Gram/200 Ml Vial) 20 gm in 200 mls @ 100 mls/hr IVPB DAILY@1200 RYAN; Protocol Stop: 05/14/18 13:59 Last Admin: 05/12/18 11:55 Dose: 100 mls/hr Daptomycin 300 mg/ Sodium (Chloride) 50 mls @ 50 mls/hr IVPB DAILY [facility]; Protocol Last Admin: 05/12/18 11:17 Dose: 50 mls/hr Levofloxacin (Levaquin -) 250 mg PO DAILY [facility] Methylprednisolone Sodium Succinate (Solu-Medrol -) 60 mg IVPUSH DAILY [facility] Last Admin: 05/12/18 09:25 Dose: 60 mg Olanzapine (Zyprexa -) 2.5 mg PO BID [facility] Last Admin: 05/12/18 21:46 Dose: 2.5 mg Oxymetazoline HCl (Afrin -) 2 spray NS Q12H PRN PRN Reason: NASAL CONGESTION Last Admin: 05/10/18 11:02 Dose: 2 spray Pantoprazole Sodium (Protonix -) 40 mg PO DAILY [facility] Last Admin: 05/12/18 09:26 Dose: 40 mg Potassium Chloride (K-Dur -) 10 meq PO DAILY [facility] Last Admin: 05/12/18 09:26 Dose: 10 meq Tbo-Filgrastim (Granix -) 300 mcg SQ DAILY [facility] Last Admin: 05/12/18 11:04 Dose: Not Given - Objective Vital Signs: Vital Signs Temperature 97.9 F 05/12/18 17:06 Pulse Rate 81 05/12/18 17:06 Respiratory Rate 20 05/12/18 21:00 Blood Pressure 151/80 05/12/18 17:06 O2 Sat by Pulse Oximetry (%) 95 05/11/18 21:00 Constitutional: Yes: No Distress, Calm Eyes: Yes: Conjunctiva Clear HENT: Yes: Atraumatic Neck: Yes: Supple Cardiovascular: Yes: Regular Rate and Rhythm Respiratory: Yes: CTA Bilaterally Gastrointestinal: Yes: Soft Genitourinary: No: CVA Tenderness - Left, CVA Tenderness - Right, Hematuria Musculoskeletal: No: Joint Stiffness, Joint Swelling Extremities: No: Cold, Cool, Cyanosis Edema: No Integumentary: Yes: Bruising, Petechiae. No: Rash, Venous Stasis Changes Neurological: Yes: WNL, Alert ...Motor Strength: WNL Psychiatric: Yes: WNL, Alert. No: Agitated, Suicidal Ideation Labs: CBC, BMP 05/12/18 08:26 05/12/18 08:26 INR, PTT INR 1.23 (0.83-1.09) H 05/10/18 06:30 Fibrinogen 390.0 mg/dL (238-498) 05/09/18 06:00 - ....Imaging Other: Report Reviewed Assessment/Plan The patient is a 72 year old female, with a significant past medical history of HTN, CLL (not on any treatment), thalassemia, anxiety, kidney stones, gallstones , admitted with fever. The patient was recently admitted for choledocholithiasis which subsequently got ERCP, complicated by GI bleed. dropping PLT s/p recent rituxan; sepsis positive blood cx VREF/blood, Klebsiella / urine IV antibiotics per ID pancytopenia CLL, leukemia d/w heme dr Garcia: IV steroids - with GI Pfx; IV IG GI f/u f/u labs, CX d/w pt do not get OOB alone, falls risks; call staff if needs OOB also d/w her again do not pull out ivs from her arms - she said she understood and she does not prognosis guarded 1:1 and prn vest for safety; psychiatry eval for anxiety d/w pt and staff.
[2018-05-13] MEDS ORDERED: PT OWN MED DRAWER 7, Y5N ONE ×2 (09:15→20:30)
[2018-05-13] MEDS: PANTOPRAZOLE 40 MG TABLET (FP) PO SCH (09:23)
[2018-05-13] MEDS: FOLIC ACID 1 MG TABLET (FP) PO SCH (09:23)
[2018-05-13] MEDS: ALLOPURINOL 300 MG TABLET (FP) PO SCH (09:23)
[2018-05-13] MEDS: OLANZapine 2.5 MG TABLET PO SCH ×3 (09:23→21:49)
[2018-05-13] MEDS: POTASSIUM CHLORIDE TABS 10 MEQ TABLET.ER (FP) PO SCH (09:24)
[2018-05-13] MEDS: methylPREDNISolone NA SUCC 40 MG/1 ML VIAL IVPUSH SCH (09:24)
--- NOTE | 2018-05-13 10:44 | PN ---
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 (short form) - Note 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: Patient seen and examined Episodes of confusion especially during night time . ROS less helpful as patient never complains , she just wants to go home Last Vital Signs Temp Pulse Resp BP Pulse Ox 98.2 F 108 H 20 152/96 95 05/13/18 09:18 05/13/18 09:18 05/13/18 09:18 05/13/18 09:18 05/11/18 21:00 HEENT: FELIBERTO, EOM Intact Oropharynx: No thrush, No mucositis, petechiae Neck: Supple Cor: RSR, No murmurs, No gallops Lungs: rhonchi, bronchial breath sounds Abd: Soft, Normal bowel sounds, No organomegaly Ext:No significant edema Skin: ecchymoses back, ( right shoulder area) right hip, right and left upper extremities , numerous petechiae extremities CBC, BMP 05/12/18 08:26 05/12/18 08:26 Current Medications Generic Name Dose Route Start Last Admin Trade Name Freq PRN Reason Stop Dose Admin Acetaminophen 650 mg 05/07/18 16:42 05/08/18 13:52 Tylenol - PO 650 mg Q6H PRN Administration FEVER Acetaminophen 650 mg 05/10/18 11:30 05/12/18 12:49 Tylenol - PO 05/14/18 11:31 650 mg DAILY@1130 RYAN Administration Allopurinol 300 mg 05/08/18 10:00 05/13/18 09:23 Zyloprim - PO 300 mg DAILY RYAN Administration Folic Acid 1 mg 05/08/18 10:00 05/13/18 09:23 Folic Acid - PO 1 mg DAILY RYAN Administration Lactated Ringer's 1,000 ml in 1,000 mls @ 75 mls/hr 05/07/18 23:30 05/12/18 09:14 Lactated Ringers Solution IV Not Given ASDIR RYAN Immune Globulin 20 gm in 200 mls @ 100 mls/hr 05/10/18 12:00 05/12/18 11:55 Gammaked 20 Gram/200 Ml Vial IVPB 05/14/18 13:59 100 mls/hr DAILY@1200 RYAN Administration Protocol Daptomycin 300 mg/ Sodium 50 mls @ 50 mls/hr 05/10/18 13:00 05/12/18 11:17 Chloride IVPB 50 mls/hr DAILY RYAN Administration Protocol Levofloxacin 250 mg 05/13/18 10:00 05/13/18 09:23 Levaquin - PO 250 mg DAILY RYAN Administration Methylprednisolone Sodium Succinate 60 mg 05/10/18 10:00 05/13/18 09:24 Solu-Medrol - IVPUSH 60 mg DAILY RYAN Administration Olanzapine 2.5 mg 05/11/18 22:00 05/13/18 09:23 Zyprexa - PO 2.5 mg BID RYAN Administration Oxymetazoline HCl 2 spray 05/09/18 09:28 05/10/18 11:02 Afrin - NS 2 spray Q12H PRN Administration NASAL CONGESTION Pantoprazole Sodium 40 mg 05/10/18 10:00 05/13/18 09:23 Protonix - PO 40 mg DAILY RYAN Administration Potassium Chloride 10 meq 05/11/18 10:15 05/13/18 09:24 K-Dur - PO 10 meq DAILY RYAN Administration Todays labs pending CLL VRE bacteremia Klebsiella UTI Thrmbocytopenia- autoimmune/sepsis Leukopenia- sepsis/meds- responsive to G-CSF Anemia- CLL/sepsis/? autoimmune Confusion /dementia Day #4 of prednisone -60 mg Day # 3 of Gamma globulin Continue monitoring CBC Hold platelet infusion unless bleeding or mainifestations of bleeding as there is no rise in platelet count, but there may be a hemostatic effect Continue antibiotics per ID G-CSF as required Spoke with lab about cbc testing via fingerstick s.
[2018-05-13 10:56] LABS: BASO % 0.8 % (0-2.0); EOS % 0.5 % (0-4.5); HEMATOCRIT 27.2 % (32.4-45.2); HEMOGLOBIN 9.5 GM/dL (10.7-15.3); MCH 29.3 pg (25.7-33.7); MCHC 34.7 g/dl (32.0-36.0); MEAN CELL VOLUME 84.5 fl (80-96); MEAN PLT VOLUME 7.4 fl (7.5-11.1); MONO % 1.3 % (3.8-10.2); NEUT % 82.4 % (42.8-82.8); RBC 3.22 M/mm3 (3.60-5.2); RDW 15.2 % (11.6-15.6); WHITE BLOOD COUNT 11.3 K/mm3 (4.0-10.0)
[2018-05-13 11:03] LABS: PLATELET COUNT 27 K/MM3 (134-434)
[2018-05-13] MEDS: DAPTOMYCIN 300 MG in SODIUM CHLORIDE 50 ML IVPB SCH (11:31)
[2018-05-13] MEDS: ACETAMINOPHEN 325 MG TABLET (FP) PO SCH (11:44)
[2018-05-13] MEDS: LACTATED RINGERS SOLUTION 1,000 ML/1,000 ML INFUS.BAG IV SCH (12:05)
[2018-05-13] MEDS: [UNRECOGNIZED DRUG - OTHER] IVPB SCH (12:26)
[2018-05-13] MEDS: IMMUNE GLOBULIN IVPB SCH (12:26)
[2018-05-13 12:44] LABS: ANISOCYTOSIS 2+; MACROCYTOSIS 0; PLATELET ESTIMATE DECREASED; TEAR DROP CELLS 2+
--- NOTE | 2018-05-13 14:46 | PN ---
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, Physician History of Present Illness: AWAKE, CONFUSED OFFERS NO COMPLAINTS TEMPS DOWN AFEBRILE BC VRE URINE KLEBSIELLA WBC IMPROVED - Current Medication List Current Medications: Active Medications Acetaminophen (Tylenol -) 650 mg PO Q6H PRN PRN Reason: FEVER Last Admin: 05/08/18 13:52 Dose: 650 mg Acetaminophen (Tylenol -) 650 mg PO DAILY@1130 RYAN Stop: 05/14/18 11:31 Last Admin: 05/13/18 11:44 Dose: 650 mg Allopurinol (Zyloprim -) 300 mg PO DAILY [facility] Last Admin: 05/13/18 09:23 Dose: 300 mg Folic Acid (Folic Acid -) 1 mg PO DAILY [facility] Last Admin: 05/13/18 09:23 Dose: 1 mg Lactated Ringer's (Lactated Ringers Solution) 1,000 ml in 1,000 mls @ 75 mls/ hr IV ASDIR [facility] Last Admin: 05/13/18 12:05 Dose: Not Given Immune Globulin (Gammaked 20 Gram/200 Ml Vial) 20 gm in 200 mls @ 100 mls/hr IVPB DAILY@1200 RYAN; Protocol Stop: 05/14/18 13:59 Last Admin: 05/13/18 12:26 Dose: 100 mls/hr Daptomycin 300 mg/ Sodium (Chloride) 50 mls @ 50 mls/hr IVPB DAILY [facility]; Protocol Last Admin: 05/13/18 11:31 Dose: 50 mls/hr Levofloxacin (Levaquin -) 250 mg PO DAILY [facility] Last Admin: 05/13/18 09:23 Dose: 250 mg Methylprednisolone Sodium Succinate (Solu-Medrol -) 60 mg IVPUSH DAILY [facility] Last Admin: 05/13/18 09:24 Dose: 60 mg Olanzapine (Zyprexa -) 2.5 mg PO BID [facility] Last Admin: 05/13/18 12:05 Dose: Not Given Oxymetazoline HCl (Afrin -) 2 spray NS Q12H PRN PRN Reason: NASAL CONGESTION Last Admin: 05/10/18 11:02 Dose: 2 spray Pantoprazole Sodium (Protonix -) 40 mg PO DAILY [facility] Last Admin: 05/13/18 09:23 Dose: 40 mg Potassium Chloride (K-Dur -) 10 meq PO DAILY [facility] Last Admin: 05/13/18 09:24 Dose: 10 meq - Objective Vital Signs: Vital Signs Temperature 98.2 F 05/13/18 09:18 Pulse Rate 108 H 05/13/18 09:18 Respiratory Rate 20 05/13/18 09:18 Blood Pressure 152/96 05/13/18 09:18 O2 Sat by Pulse Oximetry (%) 95 05/11/18 21:00 Constitutional: Yes: No Distress Cardiovascular: Yes: Regular Rate and Rhythm, S1, S2 Respiratory: Yes: Diminished Gastrointestinal: Yes: Normal Bowel Sounds, Soft. No: Tenderness Edema: No Integumentary: Yes: Bruising Labs: CBC, BMP 05/13/18 10:00 05/12/18 08:26 INR, PTT INR 1.23 (0.83-1.09) H 05/10/18 06:30 Fibrinogen 390.0 mg/dL (238-498) 05/09/18 06:00 Assessment/Plan SEPSIS +BC VRE UTI S/P NEPISTAXIS/GI BLEED CONTINUE DAPTOMYCIN 6MG/KG LEVAQUIN FOR UTI
[2018-05-14 08:58] LABS: BASO % 1.1 % (0-2.0); EOS % 0.2 % (0-4.5); HEMATOCRIT 25.5 % (32.4-45.2); HEMOGLOBIN 8.9 GM/dL (10.7-15.3); LYMPH % 27.5 % (8-40); MCH 29.2 pg (25.7-33.7); MCHC 34.9 g/dl (32.0-36.0); MEAN CELL VOLUME 83.8 fl (80-96); MEAN PLT VOLUME 11.6 fl (7.5-11.1); MONO % 1.1 % (3.8-10.2); NEUT % 70.1 % (42.8-82.8); PLATELET COUNT 96 K/MM3 (134-434); RBC 3.04 M/mm3 (3.60-5.2); RDW 15.5 % (11.6-15.6); WHITE BLOOD COUNT 6.2 K/mm3 (4.0-10.0)
--- NOTE | 2018-05-14 08:59 | PN ---
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, Physician Chief Complaint: I feel fine PLT better no bleed - Current Medication List Current Medications: Active Medications Acetaminophen (Tylenol -) 650 mg PO Q6H PRN PRN Reason: FEVER Last Admin: 05/08/18 13:52 Dose: 650 mg Acetaminophen (Tylenol -) 650 mg PO DAILY@1130 R[facility]AN Stop: 05/14/18 11:31 Last Admin: 05/13/18 11:44 Dose: 650 mg Allopurinol (Zyloprim -) 300 mg PO DAILY [facility] Last Admin: 05/13/18 09:23 Dose: 300 mg Folic Acid (Folic Acid -) 1 mg PO DAILY [facility] Last Admin: 05/13/18 09:23 Dose: 1 mg Lactated Ringer's (Lactated Ringers Solution) 1,000 ml in 1,000 mls @ 75 mls/ hr IV ASDIR [facility] Last Admin: 05/13/18 12:05 Dose: Not Given Immune Globulin (Gammaked 20 Gram/200 Ml Vial) 20 gm in 200 mls @ 100 mls/hr IVPB DAILY@1200 [facility]; Protocol Stop: 05/14/18 13:59 Last Admin: 05/13/18 12:26 Dose: 100 mls/hr Daptomycin 300 mg/ Sodium (Chloride) 50 mls @ 50 mls/hr IVPB DAILY [facility]; Protocol Last Admin: 05/13/18 11:31 Dose: 50 mls/hr Levofloxacin (Levaquin -) 250 mg PO DAILY [facility] Last Admin: 05/13/18 09:23 Dose: 250 mg Methylprednisolone Sodium Succinate (Solu-Medrol -) 60 mg IVPUSH DAILY [facility] Last Admin: 05/13/18 09:24 Dose: 60 mg Olanzapine (Zyprexa -) 2.5 mg PO BID [facility] Last Admin: 05/13/18 21:49 Dose: 2.5 mg Oxymetazoline HCl (Afrin -) 2 spray NS Q12H PRN PRN Reason: NASAL CONGESTION Last Admin: 05/10/18 11:02 Dose: 2 spray Pantoprazole Sodium (Protonix -) 40 mg PO DAILY [facility] Last Admin: 05/13/18 09:23 Dose: 40 mg Potassium Chloride (K-Dur -) 10 meq PO DAILY [facility] Last Admin: 05/13/18 09:24 Dose: 10 meq - Objective Vital Signs: Vital Signs Temperature 98.1 F 05/14/18 07:01 Pulse Rate 82 05/14/18 07:01 Respiratory Rate 20 05/14/18 07:01 Blood Pressure 163/89 05/14/18 07:01 O2 Sat by Pulse Oximetry (%) 95 05/11/18 21:00 Constitutional: Yes: No Distress, Calm Eyes: Yes: Conjunctiva Clear HENT: Yes: Atraumatic Neck: Yes: Supple Cardiovascular: Yes: Regular Rate and Rhythm Respiratory: Yes: CTA Bilaterally Gastrointestinal: Yes: Soft Genitourinary: No: Hematuria Musculoskeletal: No: Joint Stiffness, Joint Swelling Extremities: No: Calf Tenderness, Cold, Cool Edema: No Integumentary: Yes: Bruising Neurological: Yes: WNL, Alert, Oriented ...Motor Strength: WNL Psychiatric: Yes: WNL, Alert, Oriented. No: Agitated, Suicidal Ideation Labs: CBC, BMP 05/12/18 08:26 INR, PTT INR 1.23 (0.83-1.09) H 05/10/18 06:30 Fibrinogen 390.0 mg/dL (238-498) 05/09/18 06:00 - ....Imaging Other: Report Reviewed Assessment/Plan The patient is a 72 year old female, with a significant past medical history of HTN, CLL (not on any treatment), thalassemia, anxiety, kidney stones, gallstones , admitted with fever. The patient was recently admitted for choledocholithiasis which subsequently got ERCP, complicated by GI bleed. dropping PLT s/p recent rituxan; now improving slowly sepsis positive blood cx VREF/blood, Klebsiella / urine IV antibiotics per ID pancytopenia CLL, leukemia d/w heme dr Garcia: IV steroids - with GI Pfx; IV IG GI f/u f/u labs, CX d/w pt do not get OOB alone, falls risks; prognosis guarded 1:1 and prn vest for safety; psychiatry f/u for anxiety d/w pt and staff.
[2018-05-14] MEDS: FOLIC ACID 1 MG TABLET (FP) PO SCH (10:36)
[2018-05-14] MEDS: DAPTOMYCIN 300 MG in SODIUM CHLORIDE 50 ML IVPB SCH (10:36)
[2018-05-14] MEDS: methylPREDNISolone NA SUCC 40 MG/1 ML VIAL IVPUSH SCH (10:36)
[2018-05-14] MEDS: PANTOPRAZOLE 40 MG TABLET (FP) PO SCH (10:37)
[2018-05-14] MEDS: POTASSIUM CHLORIDE TABS 10 MEQ TABLET.ER (FP) PO SCH (10:37)
[2018-05-14] MEDS: OLANZapine 2.5 MG TABLET PO SCH ×2 (10:38→21:51)
[2018-05-14] MEDS: ALLOPURINOL 300 MG TABLET (FP) PO SCH (10:38)
[2018-05-14] MEDS ORDERED: PT OWN MED DRAWER 7, Y5N ONE ×2 (10:48→20:37)
--- NOTE | 2018-05-14 11:34 | PN ---
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 (short form) - Note 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: Patient seen in follow up. No new complaints. No significant events overnight. Inpatient Meds reviewed. Current Medications Generic Name Dose Route Start Last Admin Trade Name Freq PRN Reason Stop Dose Admin Acetaminophen 650 mg 05/07/18 16:42 05/08/18 13:52 Tylenol - PO 650 mg Q6H PRN Administration FEVER Allopurinol 300 mg 05/08/18 10:00 05/14/18 10:38 Zyloprim - PO 300 mg DAILY [facility] Administration Folic Acid 1 mg 05/08/18 10:00 05/14/18 10:36 Folic Acid - PO 1 mg DAILY [facility] Administration Lactated Ringer's 1,000 ml in 1,000 mls @ 75 mls/hr 05/07/18 23:30 05/13/18 12:05 Lactated Ringers Solution IV Not Given ASDIR [facility]YAN Immune Globulin 20 gm in 200 mls @ 100 mls/hr 05/10/18 12:00 05/13/18 12:26 Gammaked 20 Gram/200 Ml Vial IVPB 05/14/18 13:59 100 mls/hr DAILY@1200 RYAN Administration Protocol Daptomycin 300 mg/ Sodium 50 mls @ 50 mls/hr 05/10/18 13:00 05/14/18 10:36 Chloride IVPB 50 mls/hr DAILY [facility] Administration Protocol Levofloxacin 250 mg 05/13/18 10:00 05/14/18 10:37 Levaquin - PO 250 mg DAILY [facility] Administration Methylprednisolone Sodium Succinate 60 mg 05/10/18 10:00 05/14/18 10:36 Solu-Medrol - IVPUSH 60 mg DAILY [facility] Administration Olanzapine 2.5 mg 05/11/18 22:00 05/14/18 10:38 Zyprexa - PO 2.5 mg BID [facility]AN Administration Oxymetazoline HCl 2 spray 05/09/18 09:28 05/10/18 11:02 Afrin - NS 2 spray Q12H PRN Administration NASAL CONGESTION Pantoprazole Sodium 40 mg 05/10/18 10:00 05/14/18 10:37 Protonix - PO 40 mg DAILY [facility] Administration Potassium Chloride 10 meq 05/11/18 10:15 05/14/18 10:37 K-Dur - PO 10 meq DAILY [facility] Administration On Examination: Last Vital Signs Temp Pulse Resp BP Pulse Ox 98.1 F 82 20 163/89 95 05/14/18 07:01 05/14/18 07:01 05/14/18 07:01 05/14/18 07:01 05/11/18 21:00 General: In no acute distress, lying comfortably in bed. Extremities: No pallor or icterus. No pedal edema. No palpable lymphadenopathy. CVS: S1, S2, regular, no gallop or murmur. Chest: good air entry bilaterally, clear Abdomen: Non-distended, non-tender, no palpable organomegaly. Neuro: Alert, responsive. Labs: CBC, BMP 05/14/18 06:00 05/12/18 08:26 Assessment. CLL/SLL with secondary ITP - recent exacerbation of thrombocytopenia - now responding following several days of IVIG and PDN. Can stop IVIG. Would taper steroids. Klebsiella UTI - on Levaquin. As per consulting ID. Daily CBCs
[2018-05-14] MEDS: ACETAMINOPHEN 325 MG TABLET (FP) PO SCH (11:39)
[2018-05-14] MEDS: IMMUNE GLOBULIN IVPB SCH (12:11)
[2018-05-14] MEDS: [UNRECOGNIZED DRUG - OTHER] IVPB SCH (12:11)
--- NOTE | 2018-05-14 12:48 | PN ---
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 (short form) - Note 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: no complaints eating lunch alert Vital Signs Period Temp Pulse Resp BP Sys/Borjas Pulse Ox Last 24 Hr 98.1 F-98.3 F 82-103 20-20 160-163/79-89 cor-rrr lungs decreased bs at bases abd soft,nt ext +petechiae CBC, BMP 05/14/18 06:00 05/12/18 08:26 Microbiology 05/08/18 12:40 Blood - Peripheral Venous Blood Culture - Final NO GROWTH AFTER 5 DAYS INCUBATION 05/08/18 12:20 Blood - Peripheral Venous Blood Culture - Final NO GROWTH AFTER 5 DAYS INCUBATION 05/07/18 15:17 Blood - Peripheral Venous Blood Culture - Final NO GROWTH AFTER 5 DAYS INCUBATION 05/07/18 15:17 Blood - Peripheral Venous Blood Culture - Final Vr Ec Faecium 05/07/18 16:06 Urine - Urine Clean Catch Urine Culture - Final Klebsiella Pneumoniae a/p sepsis vre bacteremia-repeat blood cultures negative, check echo continue daptomycin Kleb uti- continue po levaquin thrombocytopenia-pred/ivig per hematology CLL
[2018-05-14 15:04] LABS: ANISOCYTOSIS 1+; MACROCYTOSIS 0; PLATELET ESTIMATE DECREASED; TEAR DROP CELLS 1+
[2018-05-14] MEDS: LACTATED RINGERS SOLUTION 1,000 ML/1,000 ML INFUS.BAG IV SCH (17:35)
--- NOTE | 2018-05-15 08:58 | PN ---
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, Physician Chief Complaint: in bed feels well looks better no bleed some rash on the legs not itchy; yes dry skin - to apply lotion - Current Medication List Current Medications: Active Medications Acetaminophen (Tylenol -) 650 mg PO Q6H PRN PRN Reason: FEVER Last Admin: 05/08/18 13:52 Dose: 650 mg Allopurinol (Zyloprim -) 300 mg PO DAILY [facility] Last Admin: 05/14/18 10:38 Dose: 300 mg Folic Acid (Folic Acid -) 1 mg PO DAILY [facility] Last Admin: 05/14/18 10:36 Dose: 1 mg Lactated Ringer's (Lactated Ringers Solution) 1,000 ml in 1,000 mls @ 75 mls/ hr IV ASDIR [facility] Last Admin: 05/14/18 17:35 Dose: 75 mls/hr Daptomycin 300 mg/ Sodium (Chloride) 50 mls @ 50 mls/hr IVPB DAILY [facility]; Protocol Last Admin: 05/14/18 10:36 Dose: 50 mls/hr Levofloxacin (Levaquin -) 250 mg PO DAILY [facility] Last Admin: 05/14/18 10:37 Dose: 250 mg Methylprednisolone Sodium Succinate (Solu-Medrol -) 60 mg IVPUSH DAILY [facility] Last Admin: 05/14/18 10:36 Dose: 60 mg Olanzapine (Zyprexa -) 2.5 mg PO BID [facility] Last Admin: 05/14/18 21:51 Dose: 2.5 mg Oxymetazoline HCl (Afrin -) 2 spray NS Q12H PRN PRN Reason: NASAL CONGESTION Last Admin: 05/10/18 11:02 Dose: 2 spray Pantoprazole Sodium (Protonix -) 40 mg PO DAILY [facility] Last Admin: 05/14/18 10:37 Dose: 40 mg Potassium Chloride (K-Dur -) 10 meq PO DAILY [facility] Last Admin: 05/14/18 10:37 Dose: 10 meq - Objective Vital Signs: Vital Signs Temperature 97.8 F 05/15/18 06:53 Pulse Rate 65 05/15/18 06:53 Respiratory Rate 20 05/15/18 06:53 Blood Pressure 165/74 05/15/18 06:53 O2 Sat by Pulse Oximetry (%) 95 05/14/18 09:00 Constitutional: Yes: No Distress, Calm Eyes: Yes: Conjunctiva Clear HENT: Yes: Atraumatic Neck: Yes: Supple Cardiovascular: Yes: Regular Rate and Rhythm Respiratory: Yes: CTA Bilaterally Gastrointestinal: Yes: Soft. No: Tenderness Genitourinary: No: CVA Tenderness - Left, CVA Tenderness - Right Musculoskeletal: No: Joint Stiffness, Joint Swelling Extremities: No: Cold, Cool, Cyanosis Edema: No Integumentary: Yes: Bruising, Rash. No: Venous Stasis Changes Neurological: Yes: WNL, Alert, Oriented ...Motor Strength: WNL Psychiatric: Yes: WNL, Alert, Oriented. No: Agitated, Suicidal Ideation Labs: CBC, BMP 05/14/18 06:00 05/12/18 08:26 INR, PTT INR 1.23 (0.83-1.09) H 05/10/18 06:30 Fibrinogen 390.0 mg/dL (238-498) 05/09/18 06:00 - ....Imaging Other: Report Reviewed Assessment/Plan The patient is a 72 year old female, with a significant past medical history of HTN, CLL (not on any treatment), thalassemia, anxiety, kidney stones, gallstones , admitted with fever. The patient was recently admitted for choledocholithiasis which subsequently got ERCP, complicated by GI bleed. dropping PLT s/p recent rituxan; improving slowly sepsis positive blood cx VREF/blood, Klebsiella / urine IV antibiotics per ID ; check echo lotion /legs pancytopenia CLL, leukemia d/w heme dr Garcia: IV steroids - with GI Pfx; IV IG GI f/u f/u labs, CX d/w pt do not get OOB alone, falls risks; prognosis guarded on 1:1 and prn vest for safety; psychiatry f/u for anxiety d/w pt and staff.
[2018-05-15] MEDS: LACTATED RINGERS SOLUTION 1,000 ML/1,000 ML INFUS.BAG IV SCH ×2 (10:29→18:41)
[2018-05-15] MEDS: DAPTOMYCIN 300 MG in SODIUM CHLORIDE 50 ML IVPB SCH (10:31)
[2018-05-15] MEDS: PANTOPRAZOLE 40 MG TABLET (FP) PO SCH (10:32)
[2018-05-15] MEDS: methylPREDNISolone NA SUCC 40 MG/1 ML VIAL IVPUSH SCH (10:32)
[2018-05-15] MEDS: FOLIC ACID 1 MG TABLET (FP) PO SCH (10:33)
[2018-05-15] MEDS: POTASSIUM CHLORIDE TABS 10 MEQ TABLET.ER (FP) PO SCH (10:34)
--- NOTE | 2018-05-15 10:35 | PN ---
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 (short form) - Note 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: alert good appetite Vital Signs Period Temp Pulse Resp BP Sys/Borjas Pulse Ox Last 24 Hr 97.8 F-98.4 F 65-79 18-20 155-165/74-80 cor-rrr lungs decreased bs at bases abd soft,nt ext multiple ecchymoses of the arms, legs with petechiae CBC, BMP 05/14/18 06:00 05/12/18 08:26 Microbiology 05/08/18 12:40 Blood - Peripheral Venous Blood Culture - Final NO GROWTH AFTER 5 DAYS INCUBATION 05/08/18 12:20 Blood - Peripheral Venous Blood Culture - Final NO GROWTH AFTER 5 DAYS INCUBATION 05/07/18 15:17 Blood - Peripheral Venous Blood Culture - Final NO GROWTH AFTER 5 DAYS INCUBATION 05/07/18 15:17 Blood - Peripheral Venous Blood Culture - Final Vr Ec Faecium 05/07/18 16:06 Urine - Urine Clean Catch Urine Culture - Final Klebsiella Pneumoniae Current Medications Acetaminophen (Tylenol -) 650 mg PO Q6H PRN PRN Reason: FEVER Last Admin: 05/08/18 13:52 Dose: 650 mg Allopurinol (Zyloprim -) 300 mg PO DAILY [facility] Last Admin: 05/14/18 10:38 Dose: 300 mg Folic Acid (Folic Acid -) 1 mg PO DAILY [facility] Last Admin: 05/14/18 10:36 Dose: 1 mg Lactated Ringer's (Lactated Ringers Solution) 1,000 ml in 1,000 mls @ 75 mls/ hr IV ASDIR [facility] Last Admin: 05/14/18 17:35 Dose: 75 mls/hr Daptomycin 300 mg/ Sodium (Chloride) 50 mls @ 50 mls/hr IVPB DAILY [facility]; Protocol Last Admin: 05/14/18 10:36 Dose: 50 mls/hr Levofloxacin (Levaquin -) 250 mg PO DAILY [facility] Stop: 05/18/18 10:01 Methylprednisolone Sodium Succinate (Solu-Medrol -) 60 mg IVPUSH DAILY [facility] Last Admin: 05/14/18 10:36 Dose: 60 mg Olanzapine (Zyprexa -) 2.5 mg PO BID [facility] Last Admin: 05/14/18 21:51 Dose: 2.5 mg Oxymetazoline HCl (Afrin -) 2 spray NS Q12H PRN PRN Reason: NASAL CONGESTION Last Admin: 05/10/18 11:02 Dose: 2 spray Pantoprazole Sodium (Protonix -) 40 mg PO DAILY [facility] Last Admin: 05/14/18 10:37 Dose: 40 mg Potassium Chloride (K-Dur -) 10 meq PO DAILY [facility] Last Admin: 05/14/18 10:37 Dose: 10 meq a/p sepsis vre bacteremia-repeat blood cultures negative, check echo continue daptomycin Kleb uti- continue po levaquin thrombocytopenia-improving CLL overall improved continue daptomycin po levaquin
[2018-05-15] MEDS: OLANZapine 2.5 MG TABLET PO SCH ×2 (12:57→21:20)
[2018-05-15] MEDS: ALLOPURINOL 300 MG TABLET (FP) PO SCH (12:57)
--- NOTE | 2018-05-15 18:30 | PN ---
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 (short form) - Note 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: Patient seen in follow up. No new complaints. No significant events overnight. Inpatient Meds reviewed. Current Medications Acetaminophen (Tylenol -) 650 mg PO Q6H PRN PRN Reason: FEVER Last Admin: 05/08/18 13:52 Dose: 650 mg Allopurinol (Zyloprim -) 300 mg PO DAILY [facility] Last Admin: 05/15/18 12:57 Dose: 300 mg Folic Acid (Folic Acid -) 1 mg PO DAILY [facility] Last Admin: 05/15/18 10:33 Dose: 1 mg Lactated Ringer's (Lactated Ringers Solution) 1,000 ml in 1,000 mls @ 75 mls/ hr IV ASDIR [facility] Last Admin: 05/15/18 10:29 Dose: Not Given Daptomycin 300 mg/ Sodium (Chloride) 50 mls @ 50 mls/hr IVPB DAILY [facility]; Protocol Last Admin: 05/15/18 10:31 Dose: 50 mls/hr Levofloxacin (Levaquin -) 250 mg PO DAILY [facility] Stop: 05/18/18 10:01 Last Admin: 05/15/18 10:31 Dose: 250 mg Methylprednisolone Sodium Succinate (Solu-Medrol -) 60 mg IVPUSH DAILY [facility] Last Admin: 05/15/18 10:32 Dose: 60 mg Olanzapine (Zyprexa -) 2.5 mg PO BID [facility] Last Admin: 05/15/18 12:57 Dose: 2.5 mg Oxymetazoline HCl (Afrin -) 2 spray NS Q12H PRN PRN Reason: NASAL CONGESTION Last Admin: 05/10/18 11:02 Dose: 2 spray Pantoprazole Sodium (Protonix -) 40 mg PO DAILY [facility] Last Admin: 05/15/18 10:32 Dose: 40 mg Potassium Chloride (K-Dur -) 10 meq PO DAILY [facility] Last Admin: 05/15/18 10:34 Dose: 10 meq On Examination: Last Vital Signs Temp Pulse Resp BP Pulse Ox 98.2 F 85 20 151/75 95 05/15/18 17:29 05/15/18 17:29 05/15/18 17:29 05/15/18 17:29 05/14/18 09:00 General: In no acute distress, lying comfortably in bed. Extremities: No pallor or icterus. No pedal edema. No palpable lymphadenopathy. CVS: S1, S2, regular, no gallop or murmur. Chest: good air entry bilaterally, clear Abdomen: Non-distended, non-tender, no palpable organomegaly. Neuro: Alert, responsive. Skin: purpuric rash both legs Labs: CBC, BMP 05/14/18 06:00 05/12/18 08:26 Assessment. CLL/SLL with secondary ITP - recent exacerbation of thrombocytopenia - now responding following several days of IVIG and PDN. Can stop IVIG. Would taper steroids. Klebsiella UTI - on Levaquin. As per consulting ID. Daily CBCs (no CBC today)
[2018-05-15] MEDS ORDERED: PT OWN MED DRAWER 7, Y5N ONE (20:44)
[2018-05-16] MEDS ORDERED: LORazepam 1 MG TABLET PO ONE (03:45)
[2018-05-16 07:23] LABS: BASO % 0.8 % (0-2.0); EOS % 0.5 % (0-4.5); HEMATOCRIT 24.6 % (32.4-45.2); HEMOGLOBIN 8.6 GM/dL (10.7-15.3); LYMPH % 38.7 % (8-40); MCH 29.1 pg (25.7-33.7); MCHC 34.9 g/dl (32.0-36.0); MEAN CELL VOLUME 83.4 fl (80-96); MONO % 1.8 % (3.8-10.2); NEUT % 58.2 % (42.8-82.8); PLATELET COUNT 122 K/MM3 (134-434); RBC 2.95 M/mm3 (3.60-5.2); RDW 15.3 % (11.6-15.6); WHITE BLOOD COUNT 2.8 K/mm3 (4.0-10.0)
[2018-05-16 08:35] LABS: ALBUMIN 2.6 g/dl (3.4-5.0); ALK PHOS 81 U/L (45-117); ANION GAP 4 MMOL/L (8-16); BILIRUBIN,TOTAL 1.2 mg/dL (0.2-1); BLOOD UREA NITROGEN 31 mg/dL (7-18); CALCIUM 8.8 mg/dL (8.5-10.1); CHLORIDE 100 mmol/L (98-107); CO2 33 mmol/L (21-32); CREATININE 0.9 mg/dL (0.55-1.3); GLUCOSE,RANDOM 110 mg/dL (74-106); POTASSIUM 4.1 mmol/L (3.5-5.1); SGOT/AST 21 U/L (15-37); SGPT/ALT 38 U/L (13-61); SODIUM 138 mmol/L (136-145); TOT PROT 6.9 g/dl (6.4-8.2)
--- NOTE | 2018-05-16 10:08 | PN ---
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 (short form) - Note 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: Patient seen and examined Remains confused Last Vital Signs Temp Pulse Resp BP Pulse Ox 98.2 F 81 20 179/76 H 95 05/16/18 06:40 05/16/18 06:40 05/16/18 06:40 05/16/18 06:40 05/14/18 09:00 HEENT: FELIBERTO, EOM Intact Oropharynx: No thrush, No mucositisevidence of oral cavity hemorrhage Cor: RSR,,systolic murmur Lungs: diminished breath sounds and scattered rhonchi Abd: Soft, Normal bowel sounds, No organomegaly Ext:No significant edema Skin:extensive LE petechiea and ecchymoses on trunk and extremities CBC, BMP 05/16/18 06:20 05/16/18 06:20 Current Medications Generic Name Dose Route Start Last Admin Trade Name Freq PRN Reason Stop Dose Admin Acetaminophen 650 mg 05/07/18 16:42 05/08/18 13:52 Tylenol - PO 650 mg Q6H PRN Administration FEVER Allopurinol 300 mg 05/08/18 10:00 05/15/18 12:57 Zyloprim - PO 300 mg DAILY [facility] Administration Folic Acid 1 mg 05/08/18 10:00 05/15/18 10:33 Folic Acid - PO 1 mg DAILY [facility] Administration Lactated Ringer's 1,000 ml in 1,000 mls @ 75 mls/hr 05/07/18 23:30 05/15/18 18:41 Lactated Ringers Solution IV 75 mls/hr ASDIR [facility] Administration Daptomycin 300 mg/ Sodium 50 mls @ 50 mls/hr 05/10/18 13:00 05/15/18 10:31 Chloride IVPB 50 mls/hr DAILY [facility] Administration Protocol Levofloxacin 250 mg 05/15/18 10:00 05/15/18 10:31 Levaquin - PO 05/18/18 10:01 250 mg DAILY [facility] Administration Methylprednisolone Sodium Succinate 60 mg 05/10/18 10:00 05/15/18 10:32 Solu-Medrol - IVPUSH 60 mg DAILY [facility] Administration Olanzapine 2.5 mg 05/11/18 22:00 05/15/18 21:20 Zyprexa - PO 2.5 mg BID [facility] Administration Oxymetazoline HCl 2 spray 05/09/18 09:28 05/10/18 11:02 Afrin - NS 2 spray Q12H PRN Administration NASAL CONGESTION Pantoprazole Sodium 40 mg 05/10/18 10:00 05/15/18 10:32 Protonix - PO 40 mg DAILY [facility] Administration Potassium Chloride 10 meq 05/11/18 10:15 05/15/18 10:34 K-Dur - PO 10 meq DAILY [facility] Administration Impression: CLL Pancytopenia VRE- blood Klebsiella- UTI Confusion Plan if platelets continue to improve on 05/17 , would begin taper of steroids gamma globulin -- completed Continue antibiotcs per ID Once infection is cleared , if patient has adequate platelets, would opt for port catheter insertion and resumption of Rituxin therapy.
[2018-05-16] MEDS: LACTATED RINGERS SOLUTION 1,000 ML/1,000 ML INFUS.BAG IV SCH (10:21)
[2018-05-16] MEDS ORDERED: PT OWN MED DRAWER 7, Y5N ONE (10:24)
[2018-05-16] MEDS: DAPTOMYCIN 300 MG in SODIUM CHLORIDE 50 ML IVPB SCH (10:32)
[2018-05-16] MEDS: PANTOPRAZOLE 40 MG TABLET (FP) PO SCH (10:32)
[2018-05-16] MEDS: methylPREDNISolone NA SUCC 40 MG/1 ML VIAL IVPUSH SCH (10:33)
[2018-05-16] MEDS: ALLOPURINOL 300 MG TABLET (FP) PO SCH (10:33)
[2018-05-16] MEDS: OLANZapine 2.5 MG TABLET PO SCH ×2 (10:33→22:22)
[2018-05-16] MEDS: FOLIC ACID 1 MG TABLET (FP) PO SCH (10:33)
[2018-05-16] MEDS: POTASSIUM CHLORIDE TABS 10 MEQ TABLET.ER (FP) PO SCH (10:34)
--- NOTE | 2018-05-16 11:41 | PN ---
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, Physician Chief Complaint: awake alert NAD agitated wants to get OOB on 1:1 CBC much better - Current Medication List Current Medications: Active Medications Acetaminophen (Tylenol -) 650 mg PO Q6H PRN PRN Reason: FEVER Last Admin: 05/08/18 13:52 Dose: 650 mg Allopurinol (Zyloprim -) 300 mg PO DAILY [facility] Last Admin: 05/16/18 10:33 Dose: 300 mg Folic Acid (Folic Acid -) 1 mg PO DAILY [facility] Last Admin: 05/16/18 10:33 Dose: 1 mg Lactated Ringer's (Lactated Ringers Solution) 1,000 ml in 1,000 mls @ 75 mls/ hr IV ASDIR [facility] Last Admin: 05/16/18 10:21 Dose: Not Given Daptomycin 300 mg/ Sodium (Chloride) 50 mls @ 50 mls/hr IVPB DAILY [facility]; Protocol Last Admin: 05/16/18 10:32 Dose: 50 mls/hr Levofloxacin (Levaquin -) 250 mg PO DAILY [facility] Stop: 05/18/18 10:01 Last Admin: 05/16/18 10:33 Dose: 250 mg Methylprednisolone Sodium Succinate (Solu-Medrol -) 60 mg IVPUSH DAILY [facility] Last Admin: 05/16/18 10:33 Dose: 60 mg Olanzapine (Zyprexa -) 2.5 mg PO BID [facility] Last Admin: 05/16/18 10:33 Dose: 2.5 mg Oxymetazoline HCl (Afrin -) 2 spray NS Q12H PRN PRN Reason: NASAL CONGESTION Last Admin: 05/10/18 11:02 Dose: 2 spray Pantoprazole Sodium (Protonix -) 40 mg PO DAILY [facility] Last Admin: 05/16/18 10:32 Dose: 40 mg Potassium Chloride (K-Dur -) 10 meq PO DAILY [facility] Last Admin: 05/16/18 10:34 Dose: 10 meq - Objective Vital Signs: Vital Signs Temperature 98.0 F 05/16/18 10:00 Pulse Rate 78 05/16/18 10:00 Respiratory Rate 18 05/16/18 10:00 Blood Pressure 157/65 05/16/18 10:00 O2 Sat by Pulse Oximetry (%) 95 05/14/18 09:00 Constitutional: Yes: No Distress, Calm Eyes: Yes: Conjunctiva Clear HENT: Yes: Atraumatic Neck: Yes: Supple Cardiovascular: Yes: Regular Rate and Rhythm Respiratory: Yes: CTA Bilaterally Gastrointestinal: Yes: Soft Genitourinary: No: Hematuria Musculoskeletal: No: Joint Stiffness, Joint Swelling Extremities: No: Cold, Cool Edema: No Integumentary: Yes: Bruising. No: Rash, Venous Stasis Changes Neurological: Yes: WNL, Alert. No: Oriented ...Motor Strength: WNL Psychiatric: Yes: WNL, Alert. No: Oriented, Agitated, Suicidal Ideation Labs: CBC, BMP 05/16/18 06:20 05/16/18 06:20 INR, PTT INR 1.23 (0.83-1.09) H 05/10/18 06:30 Fibrinogen 390.0 mg/dL (238-498) 05/09/18 06:00 - ....Imaging Other: Report Reviewed Assessment/Plan The patient is a 72 year old female, with a significant past medical history of HTN, CLL (not on any treatment), thalassemia, anxiety, kidney stones, gallstones , admitted with fever. The patient was recently admitted for choledocholithiasis which subsequently got ERCP, complicated by GI bleed. dropping PLT s/p recent rituxan; improving slowly sepsis positive blood cx VREF/blood, Klebsiella / urine IV antibiotics per ID ; check echo lotion /legs pancytopenia CLL, leukemia d/w heme dr Garcia: IV steroids - with GI Pfx; IV IG GI f/u f/u labs, CX d/w pt do not get OOB alone, falls risks; prognosis guarded on 1:1 and prn vest for safety; psychiatry f/u for anxiety d/w pt and staff.
[2018-05-16 12:22] LABS: ANISOCYTOSIS 1+; MACROCYTOSIS 0; PLATELET ESTIMATE DECREASED; TEAR DROP CELLS 1+
--- NOTE | 2018-05-16 20:23 | PN ---
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, Physician Chief Complaint: nosebleed History of Present Illness: Remains on the floor. No bleeding. Plt incr - Current Medication List Current Medications: Active Medications Acetaminophen (Tylenol -) 650 mg PO Q6H PRN PRN Reason: FEVER Last Admin: 05/08/18 13:52 Dose: 650 mg Allopurinol (Zyloprim -) 300 mg PO DAILY [facility] Last Admin: 05/16/18 10:33 Dose: 300 mg Folic Acid (Folic Acid -) 1 mg PO DAILY [facility] Last Admin: 05/16/18 10:33 Dose: 1 mg Lactated Ringer's (Lactated Ringers Solution) 1,000 ml in 1,000 mls @ 75 mls/ hr IV ASDIR [facility] Last Admin: 05/16/18 10:21 Dose: Not Given Daptomycin 300 mg/ Sodium (Chloride) 50 mls @ 50 mls/hr IVPB DAILY [facility]; Protocol Last Admin: 05/16/18 10:32 Dose: 50 mls/hr Levofloxacin (Levaquin -) 250 mg PO DAILY [facility] Stop: 05/18/18 10:01 Last Admin: 05/16/18 10:33 Dose: 250 mg Methylprednisolone Sodium Succinate (Solu-Medrol -) 60 mg IVPUSH DAILY [facility] Last Admin: 05/16/18 10:33 Dose: 60 mg Olanzapine (Zyprexa -) 2.5 mg PO BID [facility] Last Admin: 05/16/18 10:33 Dose: 2.5 mg Oxymetazoline HCl (Afrin -) 2 spray NS Q12H PRN PRN Reason: NASAL CONGESTION Last Admin: 05/10/18 11:02 Dose: 2 spray Pantoprazole Sodium (Protonix -) 40 mg PO DAILY [facility] Last Admin: 05/16/18 10:32 Dose: 40 mg Potassium Chloride (K-Dur -) 10 meq PO DAILY [facility] Last Admin: 05/16/18 10:34 Dose: 10 meq - Objective Vital Signs: Vital Signs Temperature 97.3 F L 05/16/18 15:08 Pulse Rate 95 H 05/16/18 15:08 Respiratory Rate 18 05/16/18 15:08 Blood Pressure 140/80 05/16/18 15:08 O2 Sat by Pulse Oximetry (%) 95 05/14/18 09:00 Constitutional: Yes: Well Nourished, No Distress HENT: Yes: Other (ant rhinoscopy with some dry blood crusts. no bleeding. sitting in bed, smiling) Labs: CBC, BMP 05/16/18 06:20 05/16/18 06:20 INR, PTT INR 1.23 (0.83-1.09) H 05/10/18 06:30 Fibrinogen 390.0 mg/dL (238-498) 05/09/18 06:00 Problem List - Problems (1) Epistaxis Assessment/Plan: Recurrent epistaxis in setting of sepsis, CLL, just started rituximab. +GI bleed ? - No further bleeding since last visit. - Platelets have rebounded. - Nasal saline spray TID - If she resumes bleeding, please apply pressure anteriorly to entire soft tissue portion of nose for at least least fifteen minutes, and contact [facility] as appropriate, and check Platelets - Care per primary team please call with questions Code(s): R04.0 - EPISTAXIS
[2018-05-17 07:33] LABS: BASO % 0.6 % (0-2.0); EOS % 0.5 % (0-4.5); HEMATOCRIT 25.6 % (32.4-45.2); HEMOGLOBIN 8.8 GM/dL (10.7-15.3); LYMPH % 36.7 % (8-40); MCHC 34.4 g/dl (32.0-36.0); MEAN CELL VOLUME 84.3 fl (80-96); MEAN PLT VOLUME 8.8 fl (7.5-11.1); MONO % 1.9 % (3.8-10.2); NEUT % 60.3 % (42.8-82.8); PLATELET COUNT 149 K/MM3 (134-434); RBC 3.04 M/mm3 (3.60-5.2); RDW 15.9 % (11.6-15.6); WHITE BLOOD COUNT 3.2 K/mm3 (4.0-10.0)
[2018-05-17 08:06] LABS: ALBUMIN 2.6 g/dl (3.4-5.0); ALK PHOS 101 U/L (45-117); ANION GAP 6 MMOL/L (8-16); BLOOD UREA NITROGEN 43 mg/dL (7-18); CHLORIDE 99 mmol/L (98-107); CO2 33 mmol/L (21-32); GLUCOSE,RANDOM 159 mg/dL (74-106); POTASSIUM 4.3 mmol/L (3.5-5.1); SGOT/AST 16 U/L (15-37); SGPT/ALT 32 U/L (13-61); SODIUM 137 mmol/L (136-145); TOT PROT 6.7 g/dl (6.4-8.2)
--- NOTE | 2018-05-17 08:18 | PN ---
Progress Note, Physician Chief Complaint: counts much better no bleeding; OOB in good spirits; awaiting echo d/w staff - Current Medication List Current Medications: Active Medications Acetaminophen (Tylenol -) 650 mg PO Q6H PRN PRN Reason: FEVER Last Admin: 05/08/18 13:52 Dose: 650 mg Allopurinol (Zyloprim -) 300 mg PO DAILY [facility] Last Admin: 05/16/18 10:33 Dose: 300 mg Folic Acid (Folic Acid -) 1 mg PO DAILY [facility] Last Admin: 05/16/18 10:33 Dose: 1 mg Lactated Ringer's (Lactated Ringers Solution) 1,000 ml in 1,000 mls @ 75 mls/ hr IV ASDIR [facility] Last Admin: 05/16/18 10:21 Dose: Not Given Daptomycin 300 mg/ Sodium (Chloride) 50 mls @ 50 mls/hr IVPB DAILY [facility]; Protocol Last Admin: 05/16/18 10:32 Dose: 50 mls/hr Levofloxacin (Levaquin -) 250 mg PO DAILY [facility] Stop: 05/18/18 10:01 Last Admin: 05/16/18 10:33 Dose: 250 mg Methylprednisolone Sodium Succinate (Solu-Medrol -) 60 mg IVPUSH DAILY [facility] Last Admin: 05/16/18 10:33 Dose: 60 mg Olanzapine (Zyprexa -) 2.5 mg PO BID [facility] Last Admin: 05/16/18 22:22 Dose: 2.5 mg Oxymetazoline HCl (Afrin -) 2 spray NS Q12H PRN PRN Reason: NASAL CONGESTION Last Admin: 05/10/18 11:02 Dose: 2 spray Pantoprazole Sodium (Protonix -) 40 mg PO DAILY [facility] Last Admin: 05/16/18 10:32 Dose: 40 mg Potassium Chloride (K-Dur -) 10 meq PO DAILY [facility] Last Admin: 05/16/18 10:34 Dose: 10 meq - Objective Vital Signs: Vital Signs Temperature 97.7 F 05/17/18 06:00 Pulse Rate 91 H 05/17/18 06:00 Respiratory Rate 20 05/17/18 06:00 Blood Pressure 147/79 05/17/18 06:00 O2 Sat by Pulse Oximetry (%) 95 05/14/18 09:00 Constitutional: Yes: No Distress, Calm Eyes: Yes: Conjunctiva Clear HENT: Yes: Atraumatic Neck: Yes: Supple Cardiovascular: Yes: Regular Rate and Rhythm Respiratory: Yes: CTA Bilaterally Gastrointestinal: Yes: Soft. No: Tenderness Genitourinary: No: Hematuria Musculoskeletal: No: Joint Stiffness, Joint Swelling Extremities: No: Cold, Cool Edema: No Integumentary: Yes: Bruising (improving) Neurological: Yes: WNL, Alert, Oriented ...Motor Strength: WNL Psychiatric: Yes: WNL, Alert, Oriented. No: Agitated, Suicidal Ideation Labs: CBC, BMP 05/17/18 05:30 05/17/18 05:30 INR, PTT INR 1.23 (0.83-1.09) H 05/10/18 06:30 Fibrinogen 390.0 mg/dL (238-498) 05/09/18 06:00 - ....Imaging Other: Report Reviewed Assessment/Plan The patient is a 72 year old female, with a significant past medical history of HTN, CLL (not on any treatment), thalassemia, anxiety, kidney stones, gallstones , admitted with sepsis and pancytopenia sepsis positive blood cx VREF/blood, Klebsiella / urine IV antibiotics per ID ; check echo pancytopenia CLL, leukemia d/w heme dr Garcia: IV steroids - with GI Pfx; IV IG GI f/u f/u labs, CX d/w pt do not get OOB alone, falls risks; prognosis guarded d/w pt and staff.
[2018-05-17] MEDS ORDERED: PT OWN MED DRAWER 7, Y5N ONE (09:54)
[2018-05-17] MEDS: ALLOPURINOL 300 MG TABLET (FP) PO SCH (11:05)
[2018-05-17] MEDS: FOLIC ACID 1 MG TABLET (FP) PO SCH (11:05)
[2018-05-17] MEDS: OLANZapine 2.5 MG TABLET PO SCH ×2 (11:05→21:49)
[2018-05-17] MEDS: PANTOPRAZOLE 40 MG TABLET (FP) PO SCH (11:05)
[2018-05-17] MEDS: POTASSIUM CHLORIDE TABS 10 MEQ TABLET.ER (FP) PO SCH (11:06)
[2018-05-17] MEDS: DAPTOMYCIN 300 MG in SODIUM CHLORIDE 50 ML IVPB SCH (11:06)
[2018-05-17] MEDS: methylPREDNISolone NA SUCC 40 MG/1 ML VIAL IVPUSH SCH (11:06)
[2018-05-17] MEDS: LACTATED RINGERS SOLUTION 1,000 ML/1,000 ML INFUS.BAG IV SCH (11:07)
[2018-05-17 13:17] LABS: ANISOCYTOSIS 1+; MACROCYTOSIS 0; PLATELET ESTIMATE DECREASED; TEAR DROP CELLS 1+
--- NOTE | 2018-05-17 17:45 | PN ---
Progress Note (short form) - Note Progress Note: Patient seen and examined No complaints offered ( usual response to ROS) Last Vital Signs Temp Pulse Resp BP Pulse Ox 98 F 104 H 20 131/60 95 05/17/18 15:16 05/17/18 15:16 05/17/18 15:16 05/17/18 15:16 05/14/18 09:00 HEENT: FELIBERTO, EOM Intact Oropharynx: No thrush, No mucositis Cor: RSR, No murmurs, No gallops Lungs: Clear to P&A Abd: Soft, Normal bowel sounds, No organomegaly Ext:No significant edema Skin: numerous echymoses ( especially right shoulder ) purpuric eruption lower extremities ; macular papular erythematous rash right lateral flank ? drug related CBC, BMP 05/17/18 05:30 05/17/18 05:30 Current Medications Generic Name Dose Route Start Last Admin Trade Name Freq PRN Reason Stop Dose Admin Acetaminophen 650 mg 05/07/18 16:42 05/08/18 13:52 Tylenol - PO 650 mg Q6H PRN Administration FEVER Allopurinol 300 mg 05/08/18 10:00 05/17/18 11:05 Zyloprim - PO 300 mg DAILY [facility] Administration Folic Acid 1 mg 05/08/18 10:00 05/17/18 11:05 Folic Acid - PO 1 mg DAILY [facility] Administration Lactated Ringer's 1,000 ml in 1,000 mls @ 75 mls/hr 05/07/18 23:30 05/17/18 11:07 Lactated Ringers Solution IV Not Given ASDIR [facility] Daptomycin 300 mg/ Sodium 50 mls @ 50 mls/hr 05/10/18 13:00 05/17/18 11:06 Chloride IVPB 50 mls/hr DAILY [facility] Administration Protocol Levofloxacin 250 mg 05/15/18 10:00 05/17/18 11:05 Levaquin - PO 05/18/18 10:01 250 mg DAILY [facility] Administration Methylprednisolone Sodium Succinate 60 mg 05/10/18 10:00 05/17/18 11:06 Solu-Medrol - IVPUSH 60 mg DAILY [facility] Administration Olanzapine 2.5 mg 05/11/18 22:00 05/17/18 11:05 Zyprexa - PO 2.5 mg BID [facility] Administration Oxymetazoline HCl 2 spray 05/09/18 09:28 05/10/18 11:02 Afrin - NS 2 spray Q12H PRN Administration NASAL CONGESTION Pantoprazole Sodium 40 mg 05/10/18 10:00 05/17/18 11:05 Protonix - PO 40 mg DAILY [facility] Administration Potassium Chloride 10 meq 05/11/18 10:15 05/17/18 11:06 K-Dur - PO 10 meq DAILY [facility] Administration Impression: CLL Thrombocytopenia- improved Leukopenia- improved Anemia- stable ? drug rash Plan: taper prednisone ID follow up on ? drug rsh Port cath in future when infectio cleared Rituxin therapy in future.
[2018-05-18] MEDS ORDERED: LORazepam 1 MG TABLET PO STA (01:37)
[2018-05-18 06:56] LABS: HEMATOCRIT 23.5 % (32.4-45.2); HEMOGLOBIN 8.2 GM/dL (10.7-15.3); MCH 29.2 pg (25.7-33.7); MCHC 34.8 g/dl (32.0-36.0); MEAN PLT VOLUME 9.1 fl (7.5-11.1); PLATELET COUNT 160 K/MM3 (134-434); RDW 15.9 % (11.6-15.6)
[2018-05-18 06:58] LABS: ADD RBC MORPHOLOGY YES; WHITE BLOOD COUNT 2.7 K/mm3 (4.0-10.0)
--- NOTE | 2018-05-18 09:13 | PN ---
Progress Note, Physician Chief Complaint: awake alert in bed NAD VSS afebrile no c/o in good spirits this am but was very agitated last night yelling and cursing at staff per nurse, and trying to get OOB; vest on for safety; ativan 1 mg prn ordered just had echo, results pending developed wide spread maculopapular rash legs not itchy, is on dapromycin and levaquin (levaquin held, f/u ID) called daughter Dayana - Current Medication List Current Medications: Active Medications Acetaminophen (Tylenol -) 650 mg PO Q6H PRN PRN Reason: FEVER Last Admin: 05/08/18 13:52 Dose: 650 mg Allopurinol (Zyloprim -) 300 mg PO DAILY [facility] Last Admin: 05/17/18 11:05 Dose: 300 mg Folic Acid (Folic Acid -) 1 mg PO DAILY [facility] Last Admin: 05/17/18 11:05 Dose: 1 mg Lactated Ringer's (Lactated Ringers Solution) 1,000 ml in 1,000 mls @ 75 mls/ hr IV ASDIR [facility] Last Admin: 05/17/18 11:07 Dose: Not Given Daptomycin 300 mg/ Sodium (Chloride) 50 mls @ 50 mls/hr IVPB DAILY [facility]; Protocol Last Admin: 05/17/18 11:06 Dose: 50 mls/hr Levofloxacin (Levaquin -) 250 mg PO DAILY [facility] Stop: 05/18/18 10:01 Last Admin: 05/17/18 11:05 Dose: 250 mg Methylprednisolone Sodium Succinate (Solu-Medrol -) 40 mg IVPUSH DAILY [facility] Olanzapine (Zyprexa -) 2.5 mg PO BID [facility] Last Admin: 05/17/18 21:49 Dose: 2.5 mg Oxymetazoline HCl (Afrin -) 2 spray NS Q12H PRN PRN Reason: NASAL CONGESTION Last Admin: 05/10/18 11:02 Dose: 2 spray Pantoprazole Sodium (Protonix -) 40 mg PO DAILY [facility] Last Admin: 05/17/18 11:05 Dose: 40 mg Potassium Chloride (K-Dur -) 10 meq PO DAILY [facility] Last Admin: 05/17/18 11:06 Dose: 10 meq - Objective Vital Signs: Vital Signs Temperature 98.1 F 05/18/18 06:29 Pulse Rate 85 05/18/18 06:29 Respiratory Rate 20 05/18/18 06:29 Blood Pressure 130/66 05/18/18 06:29 O2 Sat by Pulse Oximetry (%) 95 05/14/18 09:00 Constitutional: Yes: No Distress, Calm Eyes: Yes: Conjunctiva Clear HENT: Yes: Atraumatic Neck: Yes: Supple Cardiovascular: Yes: Regular Rate and Rhythm Respiratory: Yes: CTA Bilaterally Gastrointestinal: Yes: Soft. No: Tenderness Genitourinary: No: Hematuria Musculoskeletal: No: Joint Stiffness, Joint Swelling Extremities: Yes: Erythema (legs). No: Cold, Cool, Cyanosis Edema: No Integumentary: Yes: Bruising (arms), Rash (legs) Neurological: Yes: Alert ...Motor Strength: WNL Psychiatric: Yes: Alert. No: Agitated, Suicidal Ideation Labs: CBC, BMP 05/18/18 05:40 05/17/18 05:30 INR, PTT INR 1.23 (0.83-1.09) H 05/10/18 06:30 Fibrinogen 390.0 mg/dL (238-498) 05/09/18 06:00 - ....Imaging Other: Report Reviewed Assessment/Plan The patient is a 72 year old female, with a significant past medical history of HTN, CLL (not on any treatment), thalassemia, anxiety, kidney stones, gallstones , admitted with sepsis and pancytopenia sepsis positive blood cx VREF/blood, Klebsiella / urine IV antibiotics per ID ; rash - hold levaquin for now, ID f/u check echo done results pending pancytopenia CLL, leukemia further treatment per heme dr Garcia: taper IV steroids (with GI Pfx); s/p IV IG responded well; GI f/u f/u labs, CX d/w pt do not get OOB alone, falls risks; prognosis guarded d/w pt and staff. d/w pt's daughter Dayana
[2018-05-18] MEDS ORDERED: PT OWN MED DRAWER 7, Y5N ONE ×3 (09:27→21:22)
[2018-05-18] MEDS: PANTOPRAZOLE 40 MG TABLET (FP) PO SCH (09:52)
[2018-05-18] MEDS: ALLOPURINOL 300 MG TABLET (FP) PO SCH (09:52)
[2018-05-18] MEDS: OLANZapine 2.5 MG TABLET PO SCH ×2 (09:53→21:24)
[2018-05-18] MEDS: methylPREDNISolone NA SUCC 40 MG/1 ML VIAL IVPUSH SCH (09:53)
[2018-05-18] MEDS: POTASSIUM CHLORIDE TABS 10 MEQ TABLET.ER (FP) PO SCH (09:53)
[2018-05-18] MEDS: FOLIC ACID 1 MG TABLET (FP) PO SCH (09:53)
[2018-05-18] MEDS: DAPTOMYCIN 300 MG in SODIUM CHLORIDE 50 ML IVPB SCH (09:54)
[2018-05-18] MEDS ORDERED: LORazepam 1 MG TABLET PO PRN (10:47)
[2018-05-18 12:56] LABS: ANISOCYTOSIS 2+; MACROCYTOSIS 0; PLATELET ESTIMATE DECREASED; TARGET CELLS 1+; TEAR DROP CELLS 1+
--- NOTE | 2018-05-18 19:18 | PN ---
Progress Note (short form) - Note Progress Note: Patient seen and examined Little change clinically Last Vital Signs Temp Pulse Resp BP Pulse Ox 97.9 F 94 H 20 153/65 95 05/18/18 10:00 05/18/18 10:00 05/18/18 10:00 05/18/18 10:00 05/18/18 09:00 HEENT: FELIBERTO, EOM Intact Oropharynx: No thrush, No mucositis Breasts: Without masses Cor: RSR, murmur heard best in pulmonic area Lungs: bronchial breath sounds Abd: Soft, Normal bowel sounds, No organomegaly Ext:No significant edema Skin:purpura ; ecchymoses back - confluenct petechiae and purpura LE's ? drug eruption right lateral back CBC, BMP 05/18/18 05:40 05/17/18 05:30 Current Medications Generic Name Dose Route Start Last Admin Trade Name Freq PRN Reason Stop Dose Admin Acetaminophen 650 mg 05/07/18 16:42 05/08/18 13:52 Tylenol - PO 650 mg Q6H PRN Administration FEVER Allopurinol 300 mg 05/08/18 10:00 05/18/18 09:52 Zyloprim - PO 300 mg DAILY [facility] Administration Folic Acid 1 mg 05/08/18 10:00 05/18/18 09:53 Folic Acid - PO 1 mg DAILY [facility] Administration Lactated Ringer's 1,000 ml in 1,000 mls @ 75 mls/hr 05/07/18 23:30 05/17/18 11:07 Lactated Ringers Solution IV Not Given ASDIR [facility] Daptomycin 300 mg/ Sodium 50 mls @ 50 mls/hr 05/10/18 13:00 05/18/18 09:54 Chloride IVPB Not Given DAILY [facility] Protocol Lorazepam 1 mg 05/18/18 10:47 Ativan - PO HS PRN AGITATION Methylprednisolone Sodium Succinate 40 mg 05/17/18 17:47 05/18/18 09:53 Solu-Medrol - IVPUSH 40 mg DAILY [facility] Administration Olanzapine 2.5 mg 05/11/18 22:00 05/18/18 09:53 Zyprexa - PO 2.5 mg BID [facility] Administration Oxymetazoline HCl 2 spray 05/09/18 09:28 05/10/18 11:02 Afrin - NS 2 spray Q12H PRN Administration NASAL CONGESTION Pantoprazole Sodium 40 mg 05/10/18 10:00 05/18/18 09:52 Protonix - PO 40 mg DAILY [facility] Administration Potassium Chloride 10 meq 05/11/18 10:15 05/18/18 09:53 K-Dur - PO 10 meq DAILY [facility] Administration Impression CLL Pancytopenia VRE-bacteremia Klebsiella UTI ?? drug rash Heart murmur - best pulmonic area Plan continue antibiotics evaluate ? drug rash Evaluate heat murmur If platelets continue to improve, decrease medrol to 30 mg on a2/s1.
--- NOTE | 2018-05-18 21:47 | PN ---
Progress Note, Physician History of Present Illness: DEVELOPED RASH ON BILATERAL LE, ABDOMEN NO C/O PRURITIS AWAKE, CONFUSED AFEBRILE LEUKOPENIC - Current Medication List Current Medications: Active Medications Acetaminophen (Tylenol -) 650 mg PO Q6H PRN PRN Reason: FEVER Last Admin: 05/08/18 13:52 Dose: 650 mg Allopurinol (Zyloprim -) 300 mg PO DAILY [facility] Last Admin: 05/18/18 09:52 Dose: 300 mg Folic Acid (Folic Acid -) 1 mg PO DAILY [facility] Last Admin: 05/18/18 09:53 Dose: 1 mg Lactated Ringer's (Lactated Ringers Solution) 1,000 ml in 1,000 mls @ 75 mls/ hr IV ASDIR [facility] Last Admin: 05/17/18 11:07 Dose: Not Given Daptomycin 300 mg/ Sodium (Chloride) 50 mls @ 50 mls/hr IVPB DAILY [facility]; Protocol Last Admin: 05/18/18 09:54 Dose: Not Given Lorazepam (Ativan -) 1 mg PO HS PRN PRN Reason: AGITATION Methylprednisolone Sodium Succinate (Solu-Medrol -) 40 mg IVPUSH DAILY [facility] Last Admin: 05/18/18 09:53 Dose: 40 mg Olanzapine (Zyprexa -) 2.5 mg PO BID [facility] Last Admin: 05/18/18 21:24 Dose: 2.5 mg Oxymetazoline HCl (Afrin -) 2 spray NS Q12H PRN PRN Reason: NASAL CONGESTION Last Admin: 05/10/18 11:02 Dose: 2 spray Pantoprazole Sodium (Protonix -) 40 mg PO DAILY [facility] Last Admin: 05/18/18 09:52 Dose: 40 mg Potassium Chloride (K-Dur -) 10 meq PO DAILY [facility] Last Admin: 05/18/18 09:53 Dose: 10 meq - Objective Vital Signs: Vital Signs Temperature 97.9 F 05/18/18 19:55 Pulse Rate 90 05/18/18 19:55 Respiratory Rate 20 05/18/18 19:55 Blood Pressure 139/68 05/18/18 19:55 O2 Sat by Pulse Oximetry (%) 95 05/18/18 09:00 Constitutional: Yes: No Distress Cardiovascular: Yes: Regular Rate and Rhythm, S1, S2 Respiratory: Yes: CTA Bilaterally Gastrointestinal: Yes: Normal Bowel Sounds, Soft Edema: No Integumentary: Yes: Other (+ ERYTHEMA MULTIFORME ON B/L LE, ABDOMEN) Labs: CBC, BMP 05/18/18 05:40 05/17/18 05:30 INR, PTT INR 1.23 (0.83-1.09) H 05/10/18 06:30 Fibrinogen 390.0 mg/dL (238-498) 05/09/18 06:00 Assessment/Plan DRUG RASH ? DAPTOMYCIN LEUKOPENIA +BC VRE UTI S/P NEPISTAXIS/GI BLEED DISCONTINUE DAPTOMYCIN REPEAT BC OFF ANTIBIOTICS
--- NOTE | 2018-05-19 06:26 | PN ---
Progress Note, Physician Chief Complaint: OOB to chair no c/o feels well wants to go home rash purpura / legs better afebrile - Current Medication List Current Medications: Active Medications Acetaminophen (Tylenol -) 650 mg PO Q6H PRN PRN Reason: FEVER Last Admin: 05/08/18 13:52 Dose: 650 mg Allopurinol (Zyloprim -) 300 mg PO DAILY [facility] Last Admin: 05/18/18 09:52 Dose: 300 mg Folic Acid (Folic Acid -) 1 mg PO DAILY [facility] Last Admin: 05/18/18 09:53 Dose: 1 mg Lactated Ringer's (Lactated Ringers Solution) 1,000 ml in 1,000 mls @ 75 mls/ hr IV ASDIR [facility] Last Admin: 05/17/18 11:07 Dose: Not Given Daptomycin 300 mg/ Sodium (Chloride) 50 mls @ 50 mls/hr IVPB DAILY [facility]; Protocol Last Admin: 05/18/18 09:54 Dose: Not Given Lorazepam (Ativan -) 1 mg PO HS PRN PRN Reason: AGITATION Methylprednisolone Sodium Succinate (Solu-Medrol -) 40 mg IVPUSH DAILY [facility] Last Admin: 05/18/18 09:53 Dose: 40 mg Olanzapine (Zyprexa -) 2.5 mg PO BID [facility] Last Admin: 05/18/18 21:24 Dose: 2.5 mg Oxymetazoline HCl (Afrin -) 2 spray NS Q12H PRN PRN Reason: NASAL CONGESTION Last Admin: 05/10/18 11:02 Dose: 2 spray Pantoprazole Sodium (Protonix -) 40 mg PO DAILY [facility] Last Admin: 05/18/18 09:52 Dose: 40 mg Potassium Chloride (K-Dur -) 10 meq PO DAILY [facility] Last Admin: 05/18/18 09:53 Dose: 10 meq - Objective Vital Signs: Vital Signs Temperature 97.9 F 05/18/18 19:55 Pulse Rate 90 05/18/18 19:55 Respiratory Rate 20 05/18/18 19:55 Blood Pressure 139/68 05/18/18 19:55 O2 Sat by Pulse Oximetry (%) 95 05/18/18 09:00 Constitutional: Yes: No Distress, Calm Eyes: Yes: Conjunctiva Clear HENT: Yes: Atraumatic Neck: Yes: Supple Cardiovascular: Yes: Regular Rate and Rhythm Respiratory: Yes: CTA Bilaterally Gastrointestinal: Yes: Soft. No: Tenderness Genitourinary: No: CVA Tenderness - Left, CVA Tenderness - Right Musculoskeletal: No: Joint Stiffness, Joint Swelling Extremities: No: Cold, Cool Edema: No Integumentary: Yes: Rash. No: Venous Stasis Changes Neurological: Yes: WNL, Alert, Oriented ...Motor Strength: WNL Psychiatric: Yes: WNL, Alert, Oriented. No: Agitated, Suicidal Ideation Labs: CBC, BMP 05/18/18 05:40 05/17/18 05:30 INR, PTT INR 1.23 (0.83-1.09) H 05/10/18 06:30 Fibrinogen 390.0 mg/dL (238-498) 05/09/18 06:00 - ....Imaging Other: Report Reviewed Assessment/Plan The patient is a 72 year old female, with a significant past medical history of HTN, CLL (not on any treatment), thalassemia, anxiety, kidney stones, gallstones , admitted with sepsis and pancytopenia sepsis positive blood cx VREF/blood, Klebsiella / urine further IV antibiotics per ID ; rash - hold levaquin for now, ID f/u check echo done results pending pancytopenia CLL, leukemia further treatment per heme dr Garcia: taper IV steroids (with GI Pfx); s/p IV IG responded well; GI f/u f/u labs, CX d/w pt do not get OOB alone, falls risks; prognosis guarded d/w pt and staff.
[2018-05-19 08:18] LABS: BASO % 0.3 % (0-2.0); EOS % 0.4 % (0-4.5); HEMATOCRIT 22.8 % (32.4-45.2); HEMOGLOBIN 7.9 GM/dL (10.7-15.3); LYMPH % 40.7 % (8-40); MCH 28.9 pg (25.7-33.7); MCHC 34.6 g/dl (32.0-36.0); MEAN CELL VOLUME 83.6 fl (80-96); MEAN PLT VOLUME 8.8 fl (7.5-11.1); MONO % 1.2 % (3.8-10.2); NEUT % 57.4 % (42.8-82.8); PLATELET COUNT 170 K/MM3 (134-434); RBC 2.73 M/mm3 (3.60-5.2); RDW 15.9 % (11.6-15.6); WHITE BLOOD COUNT 2.7 K/mm3 (4.0-10.0)
[2018-05-19 08:53] LABS: ALBUMIN 2.6 g/dl (3.4-5.0); ALK PHOS 102 U/L (45-117); ANION GAP 4 MMOL/L (8-16); BLOOD UREA NITROGEN 52 mg/dL (7-18); CALCIUM 9.2 mg/dL (8.5-10.1); CHLORIDE 105 mmol/L (98-107); CO2 31 mmol/L (21-32); CREATININE 0.9 mg/dL (0.55-1.3); GLUCOSE,RANDOM 129 mg/dL (74-106); POTASSIUM 4.7 mmol/L (3.5-5.1); SGOT/AST 15 U/L (15-37); SGPT/ALT 29 U/L (13-61); SODIUM 141 mmol/L (136-145); TOT PROT 6.2 g/dl (6.4-8.2)
[2018-05-19] MEDS: LACTATED RINGERS SOLUTION 1,000 ML/1,000 ML INFUS.BAG IV SCH (09:24)
[2018-05-19] MEDS ORDERED: PT OWN MED DRAWER 7, Y5N ONE ×2 (10:21→21:26)
--- NOTE | 2018-05-19 10:21 | ECHO ---
Name: AYLEEN GILMORE Exam:Adult Echocardiogram Study Date: 05/18/2018 09:59 AM Age: 72 yrs Reason For Study: R/O Endocarditis VRE BACTEREMIA Height: 66 in Weight: 105 lb BSA: 1.5 m2 MMode/2D Measurements & Calculations IVSd: 0.78 cm Ao root diam: 2.5 cm LVIDd: 4.0 cm LA dimension: 3.0 cm LVIDs: 2.7 cm LVPWd: 0.69 cm EDV(Teich): 69.0 ml LVOT diam: 2.0 cm ESV(Teich): 27.3 ml Doppler Measurements & Calculations MV E max jordon: 50.0 cm/sec Ao V2 max: 189.1 cm/sec MV A max jordon: 61.1 cm/sec Ao max P.3 mmHg MV E/A: 0.82 MV dec time: 0.27 sec AYAAN(V,D): 2.2 cm2 LV V1 max P.9 mmHg TR max jordon: 108.2 cm/sec LV V1 max: 140.7 cm/sec TR max P.7 mmHg Med Peak E' Jordon: 4.3 cm/sec Med E/e': 11.7 Lat Peak E' Jordon: 3.6 cm/sec Lat E/e': 13.8 Left Ventricle The left ventricle is normal in size. Left ventricular systolic function is normal. Ejection Fraction = 60%. The transmitral spectral Doppler flow pattern is suggestive of impaired LV relaxation. The left ventr icular wall motion is normal. Atria Normal left and right atrial size and function. Mitral Valve The mitral valve is normal in structure and function. There is no vegetation seen on the mitral valve . Tricuspid Valve The tricuspid valve is not well visualized, but is grossly normal. Aortic Valve There is trivial aortic valve thickening. There is no aortic valvular vegetation. Consdier ROBERT for fu rther evaluation of valves if clinically warranted. Pulmonic Valve The pulmonic valve is not well visualized. There is no pulmonic valvular regurgitation. Great Vessels The aortic root is normal size. Pericardium/Pleura There is no pericardial effusion. Interpretation Summary The left ventricle is normal in size. Left ventricular systolic function is normal. Ejection Fraction = 60%. The transmitral spectral Doppler flow pattern is suggestive of impaired LV relaxation. The left ventricular wall motion is normal. There is trivial aortic valve thickening. There is no pericardial effusion. Normal left and right atrial size and function. The mitral valve is normal in structure and function. The tricuspid valve is not well visualized, but is grossly normal. There is no vegetation seen on the mitral valve. There is no aortic valvular vegetation. The pulmonic valve is not well visualized. There is no pulmonic valvular regurgitation. The aortic root is normal size. Consdier ROBERT for further evaluation of valves if clinically warranted. Vijay Billings MD 05/19/2018 10:20 AM
[2018-05-19] MEDS: FOLIC ACID 1 MG TABLET (FP) PO SCH (10:30)
[2018-05-19] MEDS: OLANZapine 2.5 MG TABLET PO SCH ×2 (10:30→22:21)
[2018-05-19] MEDS: POTASSIUM CHLORIDE TABS 10 MEQ TABLET.ER (FP) PO SCH (10:30)
[2018-05-19] MEDS: PANTOPRAZOLE 40 MG TABLET (FP) PO SCH (10:30)
[2018-05-19] MEDS: ALLOPURINOL 300 MG TABLET (FP) PO SCH (10:30)
[2018-05-19] MEDS: methylPREDNISolone NA SUCC 40 MG/1 ML VIAL IVPUSH SCH ×2 (10:30→16:18)
[2018-05-19 14:35] LABS: ANISOCYTOSIS 1+; OVALOCYTE 1+; PLATELET ESTIMATE ADEQUATE; TEAR DROP CELLS 1+
--- NOTE | 2018-05-19 14:45 | PN ---
Physical Exam: SUBJECTIVE: Patient seen and examined; no complaints OBJECTIVE: Vital Signs Period Temp Pulse Resp BP Sys/Borjas Pulse Ox Last 24 Hr 97.9 F-98.5 F 75-90 18-20 134-146/67-74 GENERAL: The patient is awake, alert, and fully oriented, in no acute distress. LUNGS: Breath sounds equal, clear to auscultation bilaterally, no wheezes, no crackles, no accessory muscle use. HEART: Regular rate and rhythm, S1, S2 without murmur, rub or gallop. ABDOMEN: Soft, nontender, nondistended, normoactive bowel sounds, no guarding, no rebound, no hepatosplenomegaly, no masses. EXTREMITIES: 2+ pulses, warm, well-perfused, no edema. NEUROLOGICAL: Cranial nerves II through XII grossly intact. Normal speech, gait not observed. SKIN:scattered ecchymosis; n bilateral shins; red maculopoular Laboratory Results - last 24 hr 05/19/18 05/19/18 06:25 06:25 WBC 2.7 L RBC 2.73 L Hgb 7.9 L Hct 22.8 L MCV 83.6 MCH 28.9 MCHC 34.6 RDW 15.9 H Plt Count 170 MPV 8.8 Absolute Neuts (auto) 1.6 Total Counted 100 Neutrophils % 57.4 Neutrophils % (Manual) 53.0 Band Neutrophils % 9.0 Lymphocytes % 40.7 H Lymphocytes % (Manual) 37.0 Monocytes % 1.2 L Monocytes % (Manual) 1 L Eosinophils % 0.4 Basophils % 0.3 Nucleated RBC % 4 H Hypochromia 1+ Platelet Estimate Adequate Polychromasia 1+ Basophilic Stippling 2+ Anisocytosis 1+ Spherocytes 1+ Tear Drop Cells 1+ Ovalocytes 1+ Sodium 141 Potassium 4.7 Chloride 105 Carbon Dioxide 31 Anion Gap 4 L BUN 52 H Creatinine 0.9 Creat Clearance w eGFR > 60 Random Glucose 129 H Calcium 9.2 Total Bilirubin 1.0 AST 15 ALT 29 Alkaline Phosphatase 102 Total Protein 6.2 L Albumin 2.6 L Active Medications Generic Name Dose Route Start Last Admin Trade Name Freq PRN Reason Stop Dose Admin Acetaminophen 650 mg 05/07/18 16:42 05/08/18 13:52 Tylenol - PO 650 mg Q6H PRN Administration FEVER Allopurinol 300 mg 05/08/18 10:00 05/19/18 10:30 Zyloprim - PO 300 mg DAILY [facility] Administration Folic Acid 1 mg 05/08/18 10:00 05/19/18 10:30 Folic Acid - PO 1 mg DAILY [facility] Administration Lactated Ringer's 1,000 ml in 1,000 mls @ 75 mls/hr 05/07/18 23:30 05/19/18 09:24 Lactated Ringers Solution IV Not Given ASDIR [facility] Lorazepam 1 mg 05/18/18 10:47 Ativan - PO HS PRN AGITATION Methylprednisolone Sodium Succinate 30 mg 05/19/18 13:15 Solu-Medrol - IVPUSH DAILY [facility] Olanzapine 2.5 mg 05/11/18 22:00 05/19/18 10:30 Zyprexa - PO 2.5 mg BID [facility] Administration Oxymetazoline HCl 2 spray 05/09/18 09:28 05/10/18 11:02 Afrin - NS 2 spray Q12H PRN Administration NASAL CONGESTION Pantoprazole Sodium 40 mg 05/10/18 10:00 05/19/18 10:30 Protonix - PO 40 mg DAILY [facility] Administration Potassium Chloride 10 meq 05/11/18 10:15 05/19/18 10:30 K-Dur - PO 10 meq DAILY [facility] Administration ASSESSMENT/PLAN: 72F with HTN, choledocholithiasis, hx UGIB, CLL (recently started on Rituxan, s/ p 2 doses so far) admitted yesterday with fever, nausea, diarrhea. Found to have gram + bacteremia. Started on broad spectrum Abx. CLL pancytopenia VRE-blood Klebsiella - urine seen by ID, psychiatry drug rxn rash s/p PRBC receiving, steroids, gamma globulin -tape steroids, monitor cbc -platelets improved -completed gamma globulins -off antbiotics; repeat bld cx as pe D Visit type - Emergency Visit Emergency Visit: Yes ED Registration Date: 05/07/18 Care time: The patient presented to the Emergency Department on the above date and was hospitalized for further evaluation of their emergent condition. - New Patient This patient is new to me today: No - Critical Care Critical Care patient: No
--- NOTE | 2018-05-19 17:04 | PN ---
Progress Note, Physician History of Present Illness: RASH RESOLVING NO C/O PRURITIS NO COMPLAINTS AWAKE, CONFUSED AFEBRILE LEUKOPENIC PLT COUNT IMPROVED - Current Medication List Current Medications: Active Medications Acetaminophen (Tylenol -) 650 mg PO Q6H PRN PRN Reason: FEVER Last Admin: 05/08/18 13:52 Dose: 650 mg Allopurinol (Zyloprim -) 300 mg PO DAILY [facility] Last Admin: 05/19/18 10:30 Dose: 300 mg Folic Acid (Folic Acid -) 1 mg PO DAILY [facility] Last Admin: 05/19/18 10:30 Dose: 1 mg Lactated Ringer's (Lactated Ringers Solution) 1,000 ml in 1,000 mls @ 75 mls/ hr IV ASDIR [facility] Last Admin: 05/19/18 09:24 Dose: Not Given Lorazepam (Ativan -) 1 mg PO HS PRN PRN Reason: AGITATION Methylprednisolone Sodium Succinate (Solu-Medrol -) 30 mg IVPUSH DAILY [facility] Last Admin: 05/19/18 16:18 Dose: Not Given Olanzapine (Zyprexa -) 2.5 mg PO BID [facility] Last Admin: 05/19/18 10:30 Dose: 2.5 mg Oxymetazoline HCl (Afrin -) 2 spray NS Q12H PRN PRN Reason: NASAL CONGESTION Last Admin: 05/10/18 11:02 Dose: 2 spray Pantoprazole Sodium (Protonix -) 40 mg PO DAILY [facility] Last Admin: 05/19/18 10:30 Dose: 40 mg Potassium Chloride (K-Dur -) 10 meq PO DAILY [facility] Last Admin: 05/19/18 10:30 Dose: 10 meq - Objective Vital Signs: Vital Signs Temperature 98.5 F 05/19/18 06:54 Pulse Rate 88 05/19/18 06:54 Respiratory Rate 20 05/19/18 06:54 Blood Pressure 146/74 05/19/18 06:54 O2 Sat by Pulse Oximetry (%) 95 05/18/18 09:00 Constitutional: Yes: No Distress Eyes: Yes: Conjunctiva Clear Cardiovascular: Yes: Regular Rate and Rhythm, S1, S2 Respiratory: Yes: CTA Bilaterally Gastrointestinal: Yes: Normal Bowel Sounds, Soft. No: Tenderness Edema: No Integumentary: Yes: Other (RESOLVING RASH ON LE B/L, ABDOMEN, BACK) Labs: CBC, BMP 05/19/18 06:25 05/19/18 06:25 INR, PTT INR 1.23 (0.83-1.09) H 05/10/18 06:30 Fibrinogen 390.0 mg/dL (238-498) 05/09/18 06:00 Assessment/Plan DRUG RASH ? DAPTOMYCIN ? LEVAQUIN LEUKOPENIA +BC VRE REPEAT BC (-) ECHO NEGATIVE UTI OBSERVE OFF ANTIBIOTICS REPEAT BC
--- NOTE | 2018-05-20 07:48 | PN ---
Progress Note, Physician Chief Complaint: in bed VSS afebrile NAD no c/o walked 25 feet with PT d/w pt and daughter Dayana will need SNF / rehab when cleared by ID and heme onc for DC and they agreed off ATB per ID; legs rash fading no bleed no bruises; echo no vegetations - Current Medication List Current Medications: Active Medications Acetaminophen (Tylenol -) 650 mg PO Q6H PRN PRN Reason: FEVER Last Admin: 05/08/18 13:52 Dose: 650 mg Allopurinol (Zyloprim -) 300 mg PO DAILY [facility] Last Admin: 05/19/18 10:30 Dose: 300 mg Folic Acid (Folic Acid -) 1 mg PO DAILY [facility] Last Admin: 05/19/18 10:30 Dose: 1 mg Lactated Ringer's (Lactated Ringers Solution) 1,000 ml in 1,000 mls @ 75 mls/ hr IV ASDIR [facility] Last Admin: 05/19/18 09:24 Dose: Not Given Lorazepam (Ativan -) 1 mg PO HS PRN PRN Reason: AGITATION Last Admin: 05/19/18 22:21 Dose: 1 mg Methylprednisolone Sodium Succinate (Solu-Medrol -) 30 mg IVPUSH DAILY [facility] Last Admin: 05/19/18 16:18 Dose: Not Given Olanzapine (Zyprexa -) 2.5 mg PO BID [facility] Last Admin: 05/19/18 22:21 Dose: 2.5 mg Oxymetazoline HCl (Afrin -) 2 spray NS Q12H PRN PRN Reason: NASAL CONGESTION Last Admin: 05/10/18 11:02 Dose: 2 spray Pantoprazole Sodium (Protonix -) 40 mg PO DAILY [facility] Last Admin: 05/19/18 10:30 Dose: 40 mg Potassium Chloride (K-Dur -) 10 meq PO DAILY [facility] Last Admin: 05/19/18 10:30 Dose: 10 meq - Objective Vital Signs: Vital Signs Temperature 98.1 F 05/20/18 06:35 Pulse Rate 80 05/20/18 06:35 Respiratory Rate 18 05/20/18 06:35 Blood Pressure 146/66 05/20/18 06:35 O2 Sat by Pulse Oximetry (%) 96 05/19/18 22:36 Constitutional: Yes: No Distress, Calm Eyes: Yes: Conjunctiva Clear HENT: Yes: Atraumatic Neck: Yes: Supple Cardiovascular: Yes: Regular Rate and Rhythm Respiratory: Yes: CTA Bilaterally Gastrointestinal: Yes: Soft. No: Tenderness Genitourinary: No: CVA Tenderness - Left, CVA Tenderness - Right, Hematuria Musculoskeletal: No: Joint Stiffness, Joint Swelling Extremities: Yes: Erythema. No: Cold, Cool, Cyanosis Edema: No Integumentary: Yes: Bruising, Petechiae, Rash. No: Pressure Ulcer, Venous Stasis Changes Neurological: Yes: WNL, Alert, Oriented ...Motor Strength: WNL Psychiatric: Yes: WNL, Alert, Oriented. No: Agitated, Suicidal Ideation Labs: CBC, BMP 05/19/18 06:25 05/19/18 06:25 INR, PTT INR 1.23 (0.83-1.09) H 05/10/18 06:30 Fibrinogen 390.0 mg/dL (238-498) 05/09/18 06:00 - ....Imaging Other: Report Reviewed Assessment/Plan The patient is a 72 year old female, with a significant past medical history of HTN, CLL (not on any treatment), thalassemia, anxiety, kidney stones, gallstones , admitted with sepsis and pancytopenia sepsis positive blood cx VREF/blood, Klebsiella / urine; f/u cultures sent (off ATB) DC antibiotics per ID ; rash better echo no vegetations; pancytopenia CLL, leukemia further treatment per heme dr Garcia: taper IV steroids (with GI Pfx); s/p IV IG responded well; d/w pt do not get OOB alone, falls risks; prognosis guarded d/w pt and staff. if stable DC to SNF/[facility] for rehabd d/w pt and daughter and they agreed; f/u needed outpt d/w daughter
[2018-05-20] MEDS ORDERED: PT OWN MED DRAWER 7, Y5N ONE (09:32)
[2018-05-20] MEDS: PANTOPRAZOLE 40 MG TABLET (FP) PO SCH (09:38)
[2018-05-20] MEDS: FOLIC ACID 1 MG TABLET (FP) PO SCH (09:38)
[2018-05-20] MEDS: POTASSIUM CHLORIDE TABS 10 MEQ TABLET.ER (FP) PO SCH (09:38)
[2018-05-20] MEDS: methylPREDNISolone NA SUCC 40 MG/1 ML VIAL IVPUSH SCH (09:38)
[2018-05-20] MEDS: ALLOPURINOL 300 MG TABLET (FP) PO SCH (09:39)
[2018-05-20] MEDS: OLANZapine 2.5 MG TABLET PO SCH (09:39)
[2018-05-20 16:41] VITALS: BP 142/76; PULSE 85; TEMP 98.2
--- NOTE | 2018-05-20 17:20 | DS ---
Physical Examination Vital Signs: Vital Signs Temperature 98.2 F 05/20/18 16:30 Pulse Rate 85 05/20/18 16:30 Respiratory Rate 18 05/20/18 16:30 Blood Pressure 142/76 05/20/18 16:30 O2 Sat by Pulse Oximetry (%) 96 05/20/18 09:00 Findings/Remarks: see progress note from today too (PE) d/w H staff nurse - pt cleared by ID and Heme for DC to SNF; to taper steroids with 5 mg every 2 days to off; to have port placed for chemotx when cleared by ID; f/u as advised Labs: CBC, BMP 05/19/18 06:25 05/19/18 06:25 Discharge Summary Reason For Visit: FEVER,HYPERBILIRUBINEMIA Current Active Problems Colonic thickening (Acute) Epistaxis (Acute) Fever (Acute) GI bleed (Acute) Hyperbilirubinemia (Acute) Lung nodule, multiple (Acute) Mesenteric mass (Acute) UTI (urinary tract infection) (Acute) Procedures: Principal: 72 YOF CLL leukemia renal stones gallstones; admitted with sepsis low PLT anemia, positive blood cx VREF Other Procedures: iv antibiotics per ID; transfused PLT and PRBC; IV steroids and IV IG per heme onc. Hospital Course: improved with above; f/u PCP heme onc, ID, cardiology, GI and as advised; RTER if worse or recurrent; taper steroids as noted; place portacath when cleared by ID; falls PFX; Condition: Guarded - Instructions Diet, Activity, Other Instructions: f/u PCP and heme onc dr Garcia in 1-2 weeks after DC from [place]; check labs CBC CMP in 2-3 days from now falls pfx; heme onc f/u for CLL /leukemia; GI dr Macias for gallstones; f/u dr Arceo; cardiology f/u dr Billings; psychiatry dr Valdez for anxiety; taper prednisone from 30 mg/dx2d to 25 mg/dx2d then 20 mg/dx2d then 15 mg/x2d then 10 mg/dx2d then 5 mg/dx2d then stop place port in for chemotx when cleared by ID Referrals: Sabi Jordan [Primary Care Provider] - Alex Arceo MD., MD [Staff Physician] - Bisi Macias MD [Staff Physician] - Stu Garcia MD [Staff Physician] - Vijay Billings MD [Staff Physician] - Anila Valdez MD [Staff Physician] - Disposition[facility] - Home Medications Comprehensive Discharge Medication List: Ambulatory Orders Folic Acid 1 mg PO DAILY 03/31/18 Allopurinol [Zyloprim -] 300 mg PO DAILY #90 tablet 04/13/18 Amlodipine Besylate 2.5 mg PO DAILY 05/07/18 Acetaminophen [Tylenol .Regular Strength -] 650 mg PO Q6H PRN tablet 05/20/18 LORazepam [Ativan] 1 mg PO HS PRN tablet MDD 1 mg 05/20/18 Olanzapine [Zyprexa -] 2.5 mg PO BID tablet 05/20/18 Oxymetazoline 0.05% Nasal Soln [Afrin -] 2 spray NS Q12H PRN spray 05/20/18 Pantoprazole Sodium [Protonix -] 40 mg PO DAILY tablet.ec 05/20/18 Potassium Chloride [K-Dur -] 10 meq PO DAILY tablet.er 05/20/18 predniSONE [Deltasone -] 10 mg PO DAILY #30 tablet 05/20/18
--- NOTE | 2018-05-20 20:46 | PN ---
Progress Note (short form) - Note Progress Note: Patient seen and examined comfortable no complaints AFVSS Cor: RSR, No murmurs, No gallops Lungs: Clear to P&A Abd: Soft, Normal bowel sounds, No organomegaly Ext:maculopapular rash Labs/Meds reviewed A/P m 72 y/o patient with CLL with VRE/klebsiella sepsis/thrombocytopenia/anemia autoimmune thrombocytopenia--s/p ivig with iprovement steroid taper s/p treatment of vre/klebsiella drug rash--? dapto ? levo cll -/autoimmune cytopenia steroid taper resume rituxan when able
== END 2018-05-20 20:16 | DRG 871 ==
LOC: JER 13:49 → JERBED 16:18 → J8W 05-08 14:53
PROVIDERS: ADMIT Internal Medicine; ATTEND Internal Medicine
PROC: 30233R1 Transfusion of Nonautologous Platelets into Peripheral Vein, Percutaneous Approach (ICD-10-PCS; principal; 2018-05-08)
PROC: 30233N1 Transfusion of Nonautologous Red Blood Cells into Peripheral Vein, Percutaneous Approach (ICD-10-PCS; 2018-05-09)
DX: A40.9 Streptococcal sepsis, unspecified (principal); D61.810 Antineoplastic chemotherapy induced pancytopenia; E43 Unspecified severe protein-calorie malnutrition; C91.10 Chronic lymphocytic leukemia of B-cell type not having achieved remission; N39.0 Urinary tract infection, site not specified; K92.2 Gastrointestinal hemorrhage, unspecified; R64 Cachexia; Z68.1 Body mass index [BMI] 19.9 or less, adult; D61.818 Other pancytopenia; B96.1 Klebsiella pneumoniae [K. pneumoniae] as the cause of diseases classified elsewhere; D56.9 Thalassemia, unspecified; F41.9 Anxiety disorder, unspecified; I10 Essential (primary) hypertension; K57.30 Diverticulosis of large intestine without perforation or abscess without bleeding; M54.5 Low back pain; N20.0 Calculus of kidney; K63.9 Disease of intestine, unspecified; K52.9 Noninfective gastroenteritis and colitis, unspecified; R04.0 Epistaxis; R23.3 Spontaneous ecchymoses; K80.20 Calculus of gallbladder without cholecystitis without obstruction; T36.8X5A Adverse effect of other systemic antibiotics, initial encounter; L27.0 Generalized skin eruption due to drugs and medicaments taken internally; Y92.231 Patient bathroom in hospital as the place of occurrence of the external cause; D64.9 Anemia, unspecified; R29.6 Repeated falls; R91.8 Other nonspecific abnormal finding of lung field
CPT/HCPCS: 36415; 36430; 36511; 71045-TC-FY; 74178-TC; 80048; 80053; 80076; 81003; 81015; 82248; 82550; 82803; 83010; 83605; 83615; 83690; 84484; 85025; 85027; 85384; 85610; 85730; 86850; 86900; 86901; 86922; 87040; 87086; 87186; 93005; 93010; 93306-TC; 97116-GP; 97161-GP; 99285-25; J0131; J0878; J1447; J1561; P9034; P9038; P9058

== ENCOUNTER 2018-05-31 21:54 | Observation (INO) | payer OTHER, MEDICARE ==
[2018-05-31 22:37] VITALS: BMI 16.6
[2018-06-01 00:03] LABS: BASO % 0.9 % (0-2.0); EOS % 0.8 % (0-4.5); HEMOGLOBIN 7.4 GM/dL (10.7-15.3); LYMPH % 47.4 % (8-40); MCH 25.8 pg (25.7-33.7); MCHC 32.3 g/dl (32.0-36.0); MEAN CELL VOLUME 79.8 fl (80-96); MONO % 3.3 % (3.8-10.2); NEUT % 47.6 % (42.8-82.8); PLATELET COUNT 223 K/MM3 (134-434); RBC 2.88 M/mm3 (3.60-5.2); RDW 18.3 % (11.6-15.6); WHITE BLOOD COUNT 2.2 K/mm3 (4.0-10.0)
[2018-06-01 00:17] LABS: PROTHROMBIN TIME (PATIENT) 11.8 SEC (9.7-13.0)
[2018-06-01 00:34] LABS: ALBUMIN 2.6 g/dl (3.4-5.0); ALK PHOS 112 U/L (45-117); ANION GAP 4 MMOL/L (8-16); BILIRUBIN,TOTAL 0.9 mg/dL (0.2-1); BLOOD UREA NITROGEN 29 mg/dL (7-18); CALCIUM 8.4 mg/dL (8.5-10.1); CHLORIDE 105 mmol/L (98-107); CO2 32 mmol/L (21-32); CREATININE 0.8 mg/dL (0.55-1.3); GLUCOSE,RANDOM 123 mg/dL (74-106); POTASSIUM 4.2 mmol/L (3.5-5.1); SGOT/AST 29 U/L (15-37); SGPT/ALT 39 U/L (13-61); SODIUM 140 mmol/L (136-145); TOT PROT 5.2 g/dl (6.4-8.2)
--- NOTE | 2018-06-01 00:41 | PDOC ---
History of Present Illness - General History Source: Patient Exam Limitations: No Limitations - History of Present Illness Initial Comments: 06/01/18 00:42 The patient is a 72 year old female, with a significant past medical history of HTN, CLL, thalassemia, anxiety, kidney stones, gallstones, who presents to the emergency department with, anemia. As per [facility] records, patients hemoglobin is 7.9 and hematocrit is 25. While in the ER, patient notes to be asymptomatic. She denies recent fevers, chills, headache or dizziness. She denies recent nausea, vomit, diarrhea or constipation. She denies recent dysuria, frequency, urgency or hematuria. She denies recent chest pain or shortness of breath. Allergies: NKDA Primary Care Physician: Dr. Sabi Jordan Oncologist: Dr. Garcia GI: Dr. Ga Propagator Laborer: Dr. Wick Urologist: Dr. Valdez <Jessica Tong - Last Filed: 06/01/18 01:34> <Jane Hernandez - Last Filed: 06/01/18 01:46> - General Chief Complaint: Revisit, Lab Variance Stated Complaint: ABNORMAL LABS Time Seen by Provider: 05/31/18 22:50 Past History <Jessica Tong - Last Filed: 06/01/18 01:34> - Past Medical History Anemia: Yes Cancer: (Yes; CLL 2013) Cardiac Disorders: (CHF) COPD: No CHF: No GI Disorders: Yes (GERD) Disorders: Yes (UTIs) HTN: Yes Psychiatric Problems: Yes (Anxiety,depression) Other medical history: Gout,lymphocytic leukemia of B-cell - Immunization History Immunization Up to Date: Yes - Suicide/Smoking/Psychosocial Hx Smoking Status: No Smoking History: Never smoked Have you smoked in the past 12 months: No Number of Cigarettes Smoked Daily: 0 Information on smoking cessation initiated: No Hx Alcohol Use: No Drug/Substance Use Hx: No Substance Use Type: None Hx Substance Use Treatment: No <Jane Hernandez - Last Filed: 06/01/18 01:46> - Past Medical History Allergies/Adverse Reactions: Allergies Allergy/AdvReac Type Severity Reaction Status Date / Time No Known Drug Allergies Allergy Verified 05/31/18 22:38 Home Medications: Ambulatory Orders Folic Acid 1 mg PO DAILY 03/31/18 Allopurinol [Zyloprim -] 300 mg PO DAILY #90 tablet 04/13/18 Amlodipine Besylate 2.5 mg PO DAILY 05/07/18 Acetaminophen [Tylenol .Regular Strength -] 650 mg PO Q6H PRN tablet 05/20/18 LORazepam [Ativan] 1 mg PO HS PRN tablet MDD 1 mg 05/20/18 Olanzapine [Zyprexa -] 2.5 mg PO BID tablet 05/20/18 Pantoprazole Sodium [Protonix -] 40 mg PO DAILY tablet.ec 05/20/18 Potassium Chloride [K-Dur -] 10 meq PO DAILY tablet.er 05/20/18 predniSONE [Deltasone -] 10 mg PO DAILY #30 tablet 05/20/18 Review of Systems - Review of Systems Able to Perform ROS?: Yes Comments:: 06/01/18 00:42 CONSTITUTIONAL: Absent: fever, no chills, no fatigue EYES: Absent: visual changes ENT: Absent: ear pain, no sore throat CARDIOVASCULAR: Absent: chest pain, no palpitations RESPIRATORY: Absent: cough, no SOB GI: Absent: abdominal pain, no nausea, no vomiting, no constipation, no diarrhea GENITOURINARY: Absent: dysuria, no frequency, no hematuria MUSKULOSKELETAL: Absent: back pain, no arthralgia, no myalgia SKIN: Absent: rash NEURO: Absent: headache All Other Systems: Reviewed and Negative <Jessica Tong - Last Filed: 06/01/18 01:34> *Physical Exam - Vital Signs Last Vital Signs Temp Pulse Resp BP Pulse Ox 99.3 F 92 H 16 160/83 96 05/31/18 21:54 05/31/18 21:54 05/31/18 21:54 05/31/18 21:54 05/31/18 23:44 - Physical Exam Comments: 06/01/18 00:43 GENERAL: Well developed, well nourished. Awake and alert. No acute distress. HEENT: Normocephalic, atraumatic. PERRLA, EOMI. No conjunctival pallor. Sclera are non- icteric. Moist mucous membranes. Oropharynx is clear. NECK: Supple. Full ROM. No JVD. Carotid pulses 2+ and symmetric, without bruits. No thyromegaly. No lymphadenopathy. CARDIOVASCULAR: +Systolic murmur. Regular rate and rhythm. No rubs, or gallops. Distal pulses are 2+ and symmetric. PULMONARY: No evidence of respiratory distress. Lungs clear to auscultation bilaterally. No wheezing, rales or rhonchi. ABDOMINAL: Flat. Soft. Non-tender. Non-distended. No rebound or guarding. No organomegaly. Normoactive bowel sounds. MUSCULOSKELETAL Normal range of motion at all joints. No bony deformities or tenderness. No CVA tenderness. EXTREMITIES: +2+ blt LE pitting edema. No cyanosis. No clubbing. No calf tenderness. SKIN: Warm and dry. Normal capillary refill. No rashes. No jaundice. NEUROLOGICAL: Alert, awake, appropriate. Cranial nerves 2-12 intact. No deficits to light touch and temperature in face, upper extremities and lower extremities. No motor deficits in the in face, upper extremities and lower extremities. Normoreflexic in the upper and lower extremities. Normal speech. Toes are down- going bilaterally. Gait is normal without ataxia. PSYCHIATRIC: Cooperative. Good eye contact. Appropriate mood and affect. <Jessica Tong - Last Filed: 06/01/18 01:34> - Vital Signs Last Vital Signs Temp Pulse Resp BP Pulse Ox 99.3 F 92 H 16 160/83 96 05/31/18 21:54 05/31/18 21:54 05/31/18 21:54 05/31/18 21:54 05/31/18 23:44 <Jane Hernandez - Last Filed: 06/01/18 01:46> Moderate Sedation - Procedure Monitoring Vital Signs: Procedure Monitoring Vital Signs Temperature 99.3 F 05/31/18 21:54 Pulse Rate 92 H 05/31/18 21:54 Respiratory Rate 16 05/31/18 21:54 Blood Pressure 160/83 05/31/18 21:54 O2 Sat by Pulse Oximetry (%) 96 05/31/18 23:44 <Jessica Tong - Last Filed: 06/01/18 01:34> - Procedure Monitoring Vital Signs: Procedure Monitoring Vital Signs Temperature 99.3 F 05/31/18 21:54 Pulse Rate 92 H 05/31/18 21:54 Respiratory Rate 16 05/31/18 21:54 Blood Pressure 160/83 05/31/18 21:54 O2 Sat by Pulse Oximetry (%) 96 05/31/18 23:44 <Jane Hernandez - Last Filed: 06/01/18 01:46> ED Treatment Course - LABORATORY CBC & Chemistry Diagram: 05/31/18 23:30 05/31/18 23:30 - ADDITIONAL ORDERS Additional order review: Laboratory Results 05/31/18 05/31/18 23:30 23:30 PT with INR 11.80 INR 1.00 Sodium 140 Potassium 4.2 Chloride 105 Carbon Dioxide 32 Anion Gap 4 L BUN 29 H Creatinine 0.8 Creat Clearance w eGFR > 60 Random Glucose 123 H Calcium 8.4 L Total Bilirubin 0.9 AST 29 ALT 39 Alkaline Phosphatase 112 Total Protein 5.2 L Albumin 2.6 L 05/31/18 23:30 RBC 2.88 L MCV 79.8 L MCHC 32.3 RDW 18.3 H MPV 9.0 Neutrophils % 47.6 Lymphocytes % 47.4 H Monocytes % 3.3 L D Eosinophils % 0.8 D Basophils % 0.9 <Jessica Tong - Last Filed: 06/01/18 01:34> - LABORATORY CBC & Chemistry Diagram: 05/31/18 23:30 05/31/18 23:30 - ADDITIONAL ORDERS Additional order review: Laboratory Results 05/31/18 05/31/18 23:30 23:30 PT with INR 11.80 INR 1.00 Sodium 140 Potassium 4.2 Chloride 105 Carbon Dioxide 32 Anion Gap 4 L BUN 29 H Creatinine 0.8 Creat Clearance w eGFR > 60 Random Glucose 123 H Calcium 8.4 L Total Bilirubin 0.9 AST 29 ALT 39 Alkaline Phosphatase 112 Total Protein 5.2 L Albumin 2.6 L 05/31/18 23:30 RBC 2.88 L MCV 79.8 L MCHC 32.3 RDW 18.3 H MPV 9.0 Neutrophils % 47.6 Lymphocytes % 47.4 H Monocytes % 3.3 L D Eosinophils % 0.8 D Basophils % 0.9 <Jane Hernandez - Last Filed: 06/01/18 01:46> Medical Decision Making - Medical Decision Making 06/01/[address] Sabi Jordan under observation for transfusion. <Jessica Tong - Last Filed: 06/01/18 01:34> - Medical Decision Making 06/01/18 01:43 this 72 yo female BIB[facility]. 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 <Jessica Tong - Last Filed: 06/01/18 01:34> - Discharge Dispostion Decision to Admit order: Yes <Jane Hernandez - Last Filed: 06/01/18 01:46> Diagnosis at time of Disposition: Lung nodule, multiple, Pancytopenia Anemia Qualifiers: Anemia type: other cause Other causes of anemia: other cause, not classified Qualified Code(s): D64.89 - Other specified anemias - Discharge Dispostion Condition at time of disposition: Fair
[2018-06-01] MEDS ORDERED: ACETAMINOPHEN 325 MG TABLET (FP) PO PRN (07:10)
[2018-06-01] MEDS ORDERED: LORazepam 1 MG TABLET PO PRN (07:10)
--- NOTE | 2018-06-01 07:13 | HP ---
Admitting History and Physical - Primary Care Physician PCP: Sabi Jordan S - Admission Chief Complaint: anemia History of Present Illness: The patient is a 72 year old female, with a significant past medical history of HTN, CLL, thalassemia, anxiety, kidney stones, gallstones, who was admitted with anemia. Pt was in [facility] for rehab. As per [facility] records, patients hemoglobin is 7.9 and hematocrit is 25. In ER Hg 7.4 Ht 23. While in the ER, patient notes to be asymptomatic. She denies recent fevers, chills, headache or dizziness. She denies recent nausea, vomit, diarrhea or constipation. She denies recent dysuria, frequency, urgency or hematuria. She denies recent chest pain or shortness of breath. History Source: Patient, Family Member, Medical Record - Past Medical History Cardiovascular: Yes: HTN Gastrointestinal: Yes: Diverticulosis (on CT scan), GI Bleed (02/13 post- sphincterotomy bleed) Hepatobiliary: Yes: Cholelithiasis, Choledocholithiasis (with cholangitis 02/13 requring ERCP & sphincterotomy complicated by a post-sphincterotomy bleed ) Renal/: Yes: Renal Calculi ...: No Heme/Onc: Yes: Anemia, Cancer (CLL- had bone marrow at [facility] recently), Other ( thalassemia) Psych: Yes: Anxiety Musculoskeletal: Yes: Chronic low back pain - Past Surgical History Past Surgical History: Yes: Tonsillectomy, Upper Endoscopy - Smoking History Smoking history: Never smoked Have you smoked in the past 12 months: No Aproximately how many cigarettes per day: 0 - Alcohol/Substance Use Hx Alcohol Use: No History of Substance Use: reports: None - Social History ADL: Independent 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 of Recent Travel: No Home Medications - Allergies Allergies/Adverse Reactions: Allergies Allergy/AdvReac Type Severity Reaction Status Date / Time No Known Drug Allergies Allergy Verified 05/31/18 22:38 - Home Medications Home Medications: Ambulatory Orders Folic Acid 1 mg PO DAILY 03/31/18 Allopurinol [Zyloprim -] 300 mg PO DAILY #90 tablet 04/13/18 Amlodipine Besylate 2.5 mg PO DAILY 05/07/18 Acetaminophen [Tylenol .Regular Strength -] 650 mg PO Q6H PRN tablet 05/20/18 LORazepam [Ativan] 1 mg PO HS PRN tablet MDD 1 mg 05/20/18 Olanzapine [Zyprexa -] 2.5 mg PO BID tablet 05/20/18 Pantoprazole Sodium [Protonix -] 40 mg PO DAILY tablet.ec 05/20/18 Potassium Chloride [K-Dur -] 10 meq PO DAILY tablet.er 05/20/18 predniSONE [Deltasone -] 10 mg PO DAILY #30 tablet 05/20/18 Family Disease History - Family Disease History Family Disease History: Other: Father (in his 80's pneumonia), Mother ( age 93 of CVA hemorrhage) Review of Systems - Review of Systems Constitutional: denies: Chills, Fever Eyes: denies: Blurred Vision, Double Vision HENT: denies: Ear Pain, Epistaxis Neck: denies: Stiffness, Tenderness Cardiovascular: denies: Chest Pain, Shortness of Breath Respiratory: denies: Cough, SOB, SOB on Exertion Gastrointestinal: denies: Abdominal Pain, Bloating, Constipation, Diarrhea, Rectal Bleeding, Vomiting Genitourinary: denies: Dysuria, Flank Pain Musculoskeletal: denies: Back Pain, Joint Swelling Integumentary: denies: Erythema, Rash, Wound Neurological: denies: Change in LOC, Confusion, Dizziness Endocrine: denies: Flushing, Intolerance to Cold Hematology/Lymphatic: denies: Easily Bruised, Excessive Bleeding Psychiatric: reports: Anxiety. denies: Altered Sleep Pattern, Depression, Suicidal Physical Examination Vital Signs: Vital Signs Temperature 98 F 06/01/18 02:30 Pulse Rate 83 06/01/18 02:30 Respiratory Rate 18 06/01/18 02:30 Blood Pressure 151/72 06/01/18 02:30 O2 Sat by Pulse Oximetry (%) 97 06/01/18 02:30 Constitutional: Yes: No Distress, Calm Eyes: Yes: Conjunctiva Clear HENT: Yes: Atraumatic Neck: Yes: Supple Cardiovascular: Yes: Regular Rate and Rhythm Respiratory: Yes: CTA Bilaterally Gastrointestinal: Yes: Soft. No: Distention Renal/: No: Hematuria Musculoskeletal: No: Joint Stiffness, Joint Swelling Extremities: No: Cold, Cool, Cyanosis Edema: No Integumentary: No: Rash, Venous Stasis Changes Neurological: Yes: WNL, Alert, Oriented ...Motor Strength: WNL Psychiatric: Yes: WNL, Alert, Oriented. No: Agitated, Suicidal Ideation Labs: CBC, BMP 05/31/18 23:30 05/31/18 23:30 Imaging - Results Other: Report Reviewed Assessment/Plan The patient is a 72 year old female, with a significant past medical history of HTN, CLL, thalassemia, anxiety, kidney stones, gallstones, admitted with anemia transfused 1 U prbc in ER heme onc eval; chemotx while here? PT eval; transfer back to [facility] when stable d/w pt and staff d/w pt's daughter Dayana
[2018-06-01] MEDS: POTASSIUM CHLORIDE TABS 10 MEQ TABLET.ER (FP) PO SCH (09:46)
[2018-06-01] MEDS: ALLOPURINOL 300 MG TABLET (FP) PO SCH (09:46)
[2018-06-01] MEDS: amLODIPine BESYLATE 2.5 MG TABLET (FP) PO SCH (09:46)
[2018-06-01] MEDS: FOLIC ACID 1 MG TABLET (FP) PO SCH (09:46)
[2018-06-01] MEDS: PANTOPRAZOLE 40 MG TABLET (FP) PO SCH (09:46)
[2018-06-01] MEDS: predniSONE 10 MG TABLET (UD) PO SCH (09:46)
[2018-06-01] MEDS: OLANZapine 2.5 MG TABLET PO SCH ×2 (09:46→21:02)
--- NOTE | 2018-06-01 11:12 | EKG ---
Test Reason : Blood Pressure : / mmHG Vent. Rate : 091 BPM Atrial Rate : 082 BPM P-R Int : 136 ms QRS Dur : 074 ms QT Int : 350 ms P-R-T Axes : 075 -56 056 degrees QTc Int : 430 ms SINUS RHYTHM WITH PREMATURE ATRIAL COMPLEXES WITH ABERRANT CONDUCTION LEFT AXIS DEVIATION ABNORMAL ECG WHEN COMPARED WITH ECG OF 07-MAY-2018 15:01, ABERRANT CONDUCTION IS NOW PRESENT CRITERIA FOR SEPTAL INFARCT ARE NO LONGER PRESENT Confirmed by DILMA LOCO MD ([id number]) on 06/01/2018 11:12:07 AM Referred By: Confirmed By:DILMA LOCO MD
--- NOTE | 2018-06-01 11:43 | CONSULT ---
Consultation: REQUESTING PROVIDER: Dr. Katy Jordan CONSULT REQUEST: We have been asked to medically evaluate this patient for anemia. HISTORY OF PRESENT ILLNESS: This is a 72 year old female with a history of CLL, secondary ITP - recent exacerbation of thrombocytopenia, that responded to IVIG and steroids, who was sent from [place] for a hemoglobin of 7.8, ER lab draw indicated 7.4/23.0, leukocytes 2.2. 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 pole, VRE in blood; REVIEW OF SYSTEMS: CONSTITUTIONAL: Absent: fever, chills, diaphoresis, generalized weakness, malaise, loss of appetite, weight change HEENT: Absent: rhinorrhea, nasal congestion, throat pain, throat swelling, difficulty swallowing, mouth swelling, ear pain, eye pain, visual changes CARDIOVASCULAR: Absent: chest pain, syncope, palpitations, irregular heart rate, lightheadedness , peripheral edema RESPIRATORY: Absent: cough, shortness of breath, dyspnea with exertion, orthopnea, wheezing, stridor, hemoptysis GASTROINTESTINAL: Absent: abdominal pain, abdominal distension, nausea, vomiting, diarrhea, constipation, melena, hematochezia GENITOURINARY: Absent: dysuria, frequency, urgency, hesitancy, hematuria, flank pain, genital pain MUSCULOSKELETAL: Absent: myalgia, arthralgia, joint swelling, back pain, neck pain SKIN: Absent: rash, itching, pallor HEMATOLOGIC/IMMUNOLOGIC: Absent: easy bleeding, easy bruising, lymphadenopathy, frequent infections ENDOCRINE: Absent: unexplained weight gain, unexplained weight loss, heat intolerance, cold intolerance NEUROLOGIC: Absent: headache, focal weakness or paresthesias, dizziness, unsteady gait, seizure, mental status changes, bladder or bowel incontinence PSYCHIATRIC: Absent: anxiety, depression, suicidal or homicidal ideation, hallucinations. PHYSICAL EXAMINATION Vital Signs - 24 hr 05/31/18 05/31/18 06/01/18 21:54 23:44 01:52 Temperature 99.3 F Pulse Rate 92 H Pulse Rate [ 93 H Right] Respiratory 16 18 Rate Blood Pressure 160/83 Blood Pressure 159/94 [Left Arm] O2 Sat by Pulse 96 96 95 Oximetry (%) 06/01/18 06/01/18 06/01/18 02:30 09:30 11:32 Temperature 98 F 98.2 F Pulse Rate 83 84 Pulse Rate [ Right] Respiratory 18 18 18 Rate Blood Pressure 151/72 143/72 Blood Pressure [Left Arm] O2 Sat by Pulse 97 97 Oximetry (%) GENERAL: Awake, alert, and fully oriented, in no acute distress. HEAD: Normal with no signs of trauma. EYES: Pupils equal, round and reactive to light, extraocular movements intact, sclera anicteric, conjunctiva clear. No lid lag. EARS, NOSE, THROAT: Ears normal, nares patent, oropharynx clear without exudates. Moist mucous membranes. NECK: Normal range of motion, supple without lymphadenopathy, JVD, or masses. Breast/axilla; no masses/lumps LUNGS: Breath sounds equal, clear to auscultation bilaterally. No wheezes, and no crackles. No accessory muscle use. HEART: Regular rate and rhythm, normal S1 and S2 without murmur, rub or gallop. ABDOMEN: Soft, nontender, not distended, normoactive bowel sounds, no guarding, no rebound, no masses. No hepatomegaly or splenomegaly. UPPER EXTREMITIES: 2+ pulses, warm, well-perfused. No cyanosis. No clubbing. Cap refill <2 seconds. No peripheral edema. LOWER EXTREMITIES: 2+ pulses, warm, well-perfused. No calf tenderness. No peripheral edema. NEUROLOGICAL: Cranial nerves II-XII intact. Normal speech. Normal gait. PSYCHIATRIC: Cooperative. Good eye contact. Appropriate mood and affect. SKIN: Warm, dry, normal turgor, no rashes or lesions noted. Laboratory Results - last 24 hr 05/31/18 05/31/18 05/31/18 23:30 23:30 23:30 WBC 2.2 L RBC 2.88 L Hgb 7.4 L Hct 23.0 L MCV 79.8 L MCH 25.8 D MCHC 32.3 RDW 18.3 H Plt Count 223 D MPV 9.0 Absolute Neuts (auto) 1.0 L Neutrophils % 47.6 Lymphocytes % 47.4 H Monocytes % 3.3 L D Eosinophils % 0.8 D Basophils % 0.9 Nucleated RBC % 2 H PT with INR INR Sodium 140 Potassium 4.2 Chloride 105 Carbon Dioxide 32 Anion Gap 4 L BUN 29 H Creatinine 0.8 Creat Clearance w eGFR > 60 Random Glucose 123 H Calcium 8.4 L Total Bilirubin 0.9 AST 29 ALT 39 Alkaline Phosphatase 112 Total Protein 5.2 L Albumin 2.6 L Blood Type O POSITIVE Antibody Screen Negative Crossmatch See Detail 05/31/18 23:30 WBC RBC Hgb Hct MCV MCH MCHC RDW Plt Count MPV Absolute Neuts (auto) Neutrophils % Lymphocytes % Monocytes % Eosinophils % Basophils % Nucleated RBC % PT with INR 11.80 INR 1.00 Sodium Potassium Chloride Carbon Dioxide Anion Gap BUN Creatinine Creat Clearance w eGFR Random Glucose Calcium Total Bilirubin AST ALT Alkaline Phosphatase Total Protein Albumin Blood Type Antibody Screen Crossmatch Active Medications Generic Name Dose Route Start Last Admin Trade Name Freq PRN Reason Stop Dose Admin Acetaminophen 650 mg 06/01/18 07:10 Tylenol - PO Q6H PRN FEVER Allopurinol 300 mg 06/01/18 10:00 06/01/18 09:46 Zyloprim - PO 300 mg DAILY RYAN Administration Amlodipine Besylate 2.5 mg 06/01/18 10:00 06/01/18 09:46 Norvasc - PO 2.5 mg DAILY RYAN Administration Folic Acid 1 mg 06/01/18 10:00 06/01/18 09:46 Folic Acid - PO 1 mg DAILY RYAN Administration Lorazepam 1 mg 06/01/18 07:10 Ativan - PO HS PRN AGITATION Olanzapine 2.5 mg 06/01/18 10:00 06/01/18 09:46 Zyprexa - PO 2.5 mg BID RYAN Administration Pantoprazole Sodium 40 mg 06/01/18 10:00 06/01/18 09:46 Protonix - PO 40 mg DAILY RYAN Administration Potassium Chloride 10 meq 06/01/18 10:00 06/01/18 09:46 K-Dur - PO 10 meq DAILY RYAN Administration Prednisone 10 mg 06/01/18 10:00 06/01/18 09:46 Deltasone - PO 10 mg DAILY RYAN Administration ASSESSMENT/PLAN: CLL,choledocholilithiasis,cholangitis,GI bleeds,anemia,staghorn calculus in renal pole 72F with HTN, choledocholithiasis, hx UGIB, CLL (recently started on Rituxan, s/ p 2 doses so far) admitted yesterday with fever, nausea, diarrhea. Found to have gram + bacteremia. Started on broad spectrum Abx. anemia CLL hx VRE-blood hx Klebsiella - urine -s/p 1 UPRBC; with adequate response -monitor cbc as outpatient Dispo: We will continue to follow the patient. Thank you for this consultative opportunity. Visit type - Emergency Visit Emergency Visit: Yes ED Registration Date: 06/01/18 Care time: The patient presented to the Emergency Department on the above date and was hospitalized for further evaluation of their emergent condition. - New Patient This patient is new to me today: No - Critical Care Critical Care patient: No
[2018-06-01 13:08] LABS: HEMATOCRIT 29.8 % (32.4-45.2); HEMOGLOBIN 9.9 GM/dL (10.7-15.3); MCH 27.5 pg (25.7-33.7); MCHC 33.4 g/dl (32.0-36.0); MEAN CELL VOLUME 82.4 fl (80-96); MEAN PLT VOLUME 9.1 fl (7.5-11.1); PLATELET COUNT 230 K/MM3 (134-434); RBC 3.61 M/mm3 (3.60-5.2); RDW 19.5 % (11.6-15.6); WHITE BLOOD COUNT 2.4 K/mm3 (4.0-10.0)
[2018-06-01 14:48] LABS: ANISOCYTOSIS 1+; MACROCYTOSIS 0; PLATELET ESTIMATE NORMAL; TEAR DROP CELLS 2+
--- NOTE | 2018-06-01 18:14 | PN ---
Teaching Attending Note Name of Resident: Lynne Awan ATTENDING PHYSICIAN STATEMENT I saw and evaluated the patient. I reviewed the resident's note and discussed the case with the resident. I agree with the resident's findings and plan as documented. SUBJECTIVE: Patient seen and examined \ History of CLL with pancytopenia, recent treatment with transfusions and steroids with Gamma globulin Had sphincterotomy in past and had post procedure bleeding Has had bone marrow with involvement with CLL Has in addition autoimmune etiologies for cytopenias. In [facility] and transferred for anemia. Last Vital Signs Temp Pulse Resp BP Pulse Ox 98.8 F 77 20 134/59 L 97 06/01/18 17:58 06/01/18 17:58 06/01/18 17:58 06/01/18 17:58 06/01/18 11:32 HEENT: FELIBERTO, EOM Intact Nodes: Without adenopathy Cor: RSR, No murmurs, No gallops Lungs: scattered rhonchi Abd: Soft, Normal bowel sounds, No organomegaly Ext:No significant edema Skin: No rashes, Integument intact, numerous ecchymoses CBC, BMP 06/01/18 12:18 05/31/18 23:30 Current Medications Generic Name Dose Route Start Last Admin Trade Name Freq PRN Reason Stop Dose Admin Acetaminophen 650 mg 06/01/18 07:10 Tylenol - PO Q6H PRN FEVER Allopurinol 300 mg 06/01/18 10:00 06/01/18 09:46 Zyloprim - PO 300 mg DAILY RYAN Administration Amlodipine Besylate 2.5 mg 06/01/18 10:00 06/01/18 09:46 Norvasc - PO 2.5 mg DAILY RYAN Administration Folic Acid 1 mg 06/01/18 10:00 06/01/18 09:46 Folic Acid - PO 1 mg DAILY RYAN Administration Lorazepam 1 mg 06/01/18 07:10 Ativan - PO HS PRN AGITATION Olanzapine 2.5 mg 06/01/18 10:00 06/01/18 09:46 Zyprexa - PO 2.5 mg BID RYAN Administration Pantoprazole Sodium 40 mg 06/01/18 10:00 06/01/18 09:46 Protonix - PO 40 mg DAILY RYAN Administration Potassium Chloride 10 meq 06/01/18 10:00 06/01/18 09:46 K-Dur - PO 10 meq DAILY RYAN Administration Prednisone 10 mg 06/01/18 10:00 06/01/18 09:46 Deltasone - PO 10 mg DAILY RYAN Administration OBJECTIVE:Impression : CLL Pancytopenia Plan: Continue to taper off steroids When patient has been discharged from [facility] for port and Rituxin ASSESSMENT AND PLAN:
--- NOTE | 2018-06-02 05:32 | DS ---
Physical Examination Vital Signs: Vital Signs Temperature 97.9 F 06/02/18 01:00 Pulse Rate 65 06/02/18 01:00 Respiratory Rate 20 06/02/18 03:00 Blood Pressure 138/70 06/02/18 01:00 O2 Sat by Pulse Oximetry (%) 95 06/02/18 03:00 Findings/Remarks: s/p 1 U PRBC; no bleed in urine or stools, NL BM; no echymoses; PLT NL; Hg 9.9 stable d/w heme no chemo at this point, can return to SNF for 1-2 weeks then f/u with heme onc after DC home for further tx, chemotx; d/w pt and daughter; also to f/u with GI dr Macias and dr Arceo outpt. afebrile no dysuria WBC 2.2 stable - f/u labs closely. Constitutional: Yes: No Distress, Calm Eyes: Yes: Conjunctiva Clear HENT: Yes: Atraumatic Neck: Yes: Supple Cardiovascular: Yes: Regular Rate and Rhythm Respiratory: Yes: CTA Bilaterally Gastrointestinal: Yes: Soft. No: Tenderness Renal/: No: Hematuria Musculoskeletal: No: Joint Stiffness, Joint Swelling Extremities: No: Cold, Cool, Cyanosis Edema: No Integumentary: No: Bruising, Rash, Venous Stasis Changes Neurological: Yes: WNL, Alert, Oriented ...Motor Strength: WNL Psychiatric: Yes: WNL, Alert, Oriented. No: Agitated, Suicidal Ideation Labs: CBC, BMP 06/01/18 12:18 05/31/18 23:30 Discharge Summary Reason For Visit: CHRONIC LYMPHOCYTIC LEUKEMIA ANEMIA Current Active Problems Anemia (Acute) Lung nodule, multiple (Acute) Pancytopenia (Acute) Procedures: Principal: admitted with HG 7.7 no active bleeding; transfused 1 U PRBC in ER; Other Procedures: seen by heme onc; tokerated PRBC well; stable no c/o; Hospital Course: transfer back to SNF f/u labs closely; f/u PCP, GI and heme onc and in 1-2 weeks after DC from [place]. Condition: Fair - Instructions Diet, Activity, Other Instructions: f/u CBC CMP weekly; f/u GI dr Macias and heme onc dr Garcia in 1-2 weeks; falls PFX; further chemotx per ONC; RTER if worse or recurrent c/o. Referrals: Sabi Jordan [Primary Care Provider] - Bisi Macias MD [Staff Physician] - Stu Garcia MD [Staff Physician] - Alex Arceo MD., [Staff Physician] - Disposition: [facility] - Home Medications Comprehensive Discharge Medication List: Ambulatory Orders Folic Acid 1 mg PO DAILY 03/31/18 Allopurinol [Zyloprim -] 300 mg PO DAILY #90 tablet 04/13/18 Amlodipine Besylate 2.5 mg PO DAILY 05/07/18 Acetaminophen [Tylenol .Regular Strength -] 650 mg PO Q6H PRN tablet 05/20/18 LORazepam [Ativan] 1 mg PO HS PRN tablet MDD 1 mg 05/20/18 Olanzapine [Zyprexa -] 2.5 mg PO BID tablet 05/20/18 Pantoprazole Sodium [Protonix -] 40 mg PO DAILY tablet.ec 05/20/18 Potassium Chloride [K-Dur -] 10 meq PO DAILY tablet.er 05/20/18 predniSONE [Deltasone -] 10 mg PO DAILY #30 tablet 05/20/18
[2018-06-02 07:16] LABS: HEMATOCRIT 25.8 % (32.4-45.2); HEMOGLOBIN 8.8 GM/dL (10.7-15.3); MCH 27.3 pg (25.7-33.7); MEAN CELL VOLUME 80.4 fl (80-96); MEAN PLT VOLUME 8.7 fl (7.5-11.1); PLATELET COUNT 186 K/MM3 (134-434); RBC 3.21 M/mm3 (3.60-5.2); RDW 19.8 % (11.6-15.6); WHITE BLOOD COUNT 2.4 K/mm3 (4.0-10.0)
[2018-06-02 07:27] LABS: ALBUMIN 2.5 g/dl (3.4-5.0); ALK PHOS 95 U/L (45-117); ANION GAP 6 MMOL/L (8-16); BILIRUBIN,TOTAL 1.2 mg/dL (0.2-1); BLOOD UREA NITROGEN 29 mg/dL (7-18); CALCIUM 8.3 mg/dL (8.5-10.1); CHLORIDE 106 mmol/L (98-107); CO2 30 mmol/L (21-32); CREATININE 0.8 mg/dL (0.55-1.3); GLUCOSE,RANDOM 107 mg/dL (74-106); POTASSIUM 3.8 mmol/L (3.5-5.1); SGOT/AST 20 U/L (15-37); SGPT/ALT 27 U/L (13-61); SODIUM 143 mmol/L (136-145); TOT PROT 5.1 g/dl (6.4-8.2)
[2018-06-02] MEDS: ALLOPURINOL 300 MG TABLET (FP) PO SCH (09:21)
[2018-06-02] MEDS: amLODIPine BESYLATE 2.5 MG TABLET (FP) PO SCH (09:21)
[2018-06-02] MEDS: PANTOPRAZOLE 40 MG TABLET (FP) PO SCH (09:21)
[2018-06-02] MEDS: POTASSIUM CHLORIDE TABS 10 MEQ TABLET.ER (FP) PO SCH (09:21)
[2018-06-02] MEDS: OLANZapine 2.5 MG TABLET PO SCH (09:22)
[2018-06-02] MEDS: predniSONE 10 MG TABLET (UD) PO SCH (09:22)
[2018-06-02] MEDS: FOLIC ACID 1 MG TABLET (FP) PO SCH (09:22)
[2018-06-02 13:34] LABS: MACROCYTOSIS 0; OVALOCYTE 1+; PLATELET ESTIMATE NORMAL; TARGET CELLS 1+; TEAR DROP CELLS 2+
[2018-06-02 13:59] LABS: ANISOCYTOSIS 1+
[2018-06-02 18:51] VITALS: BP 145/68; PULSE 71; TEMP 97.2
== END 2018-06-02 09:00 ==
LOC: JER 21:54 → JERBED 06-01 01:04 → J7W 06-01 02:44
PROVIDERS: ADMIT Internal Medicine; ATTEND Internal Medicine
PROC: 30233N1 Transfusion of Nonautologous Red Blood Cells into Peripheral Vein, Percutaneous Approach (ICD-10-PCS; principal; 2018-06-01)
DX: C91.10 Chronic lymphocytic leukemia of B-cell type not having achieved remission (principal); D63.8 Anemia in other chronic diseases classified elsewhere; I11.0 Hypertensive heart disease with heart failure; I50.9 Heart failure, unspecified; R91.8 Other nonspecific abnormal finding of lung field; F41.9 Anxiety disorder, unspecified; F32.9 Major depressive disorder, single episode, unspecified; K21.9 Gastro-esophageal reflux disease without esophagitis; Z87.440 Personal history of urinary (tract) infections; Z87.442 Personal history of urinary calculi
CPT/HCPCS: 36415; 36430; 80053; 85025; 85610; 86850; 86900; 86901; 86922; 93005; 93010; 97116-GP; 97161-GP; 99284-25; G0378; P9038; P9058

== ENCOUNTER 2018-07-07 07:06 | Day surgery (SDC) | payer OTHER, MEDICARE ==
[2018-07-07] MEDS ORDERED: ACETAMINOPHEN 325 MG TABLET (FP) PO ONE (08:00)
[2018-07-07] MEDS ORDERED: DEXAMETHASONE SODIUM PHOSPHATE 10 MG, DIPHENHYDRAMINE 50 MG in SODIUM CHLORIDE 100 ML IVPB ONE (08:00)
[2018-07-07] MEDS ORDERED: SODIUM CHLORIDE IVPB ONE (08:30)
[2018-07-07] MEDS ORDERED: RITUXIMAB IVPB ONE (08:30)
[2018-07-07 09:56] LABS: BASO % 0.9 % (0-2.0); HEMATOCRIT 25.7 % (32.4-45.2); HEMOGLOBIN 8.3 GM/dL (10.7-15.3); LYMPH % 34.5 % (8-40); MCH 22.4 pg (25.7-33.7); MCHC 32.3 g/dl (32.0-36.0); MEAN CELL VOLUME 69.5 fl (80-96); MEAN PLT VOLUME 9.5 fl (7.5-11.1); MONO % 5.8 % (3.8-10.2); NEUT % 52.8 % (42.8-82.8); PLATELET COUNT 303 K/MM3 (134-434); RDW 21.3 % (11.6-15.6); WHITE BLOOD COUNT 2.6 K/mm3 (4.0-10.0)
[2018-07-07 10:22] LABS: ALBUMIN 3.1 g/dl (3.4-5.0); ALK PHOS 90 U/L (45-117); ANION GAP 2 MMOL/L (8-16); BILIRUBIN,TOTAL 0.8 mg/dL (0.2-1); BLOOD UREA NITROGEN 30 mg/dL (7-18); CALCIUM 9.7 mg/dL (8.5-10.1); CHLORIDE 105 mmol/L (98-107); CO2 30 mmol/L (21-32); CREATININE 1.5 mg/dL (0.55-1.3); GLUCOSE,RANDOM 96 mg/dL (74-106); POTASSIUM 4.7 mmol/L (3.5-5.1); SGOT/AST 19 U/L (15-37); SGPT/ALT 17 U/L (13-61); SODIUM 137 mmol/L (136-145); TOT PROT 6.4 g/dl (6.4-8.2)
[2018-07-07 10:24] LABS: ALBUMIN 3.1 g/dl (3.4-5.0); BILIRUBIN,DIRECT 0.2 mg/dL (0.0-0.2); BILIRUBIN,TOTAL 0.8 mg/dL (0.2-1); MAGNESIUM 2.3 mg/dL (1.8-2.4); TOT PROT 6.4 g/dl (6.4-8.2); URIC ACID 1.8 mg/dL (2.6-7.2)
[2018-07-07 11:51] LABS: ANISOCYTOSIS 2+; MACROCYTOSIS 0; OVALOCYTE 1+; PLATELET ESTIMATE NORMAL; TEAR DROP CELLS 2+
[2018-07-07 15:43] VITALS: TEMP 98.7
[2018-07-07] MEDS ORDERED: PORTA CATH FLUSH 10 ML IVPUSH ONE (15:43)
[2018-07-07 15:44] VITALS: BP 124/70; PULSE 87
[2018-07-08 03:13] LABS: HEP B CORE AB, TOT Negative (Negative); HEPATITIS B CORE ANTIBODY,IGM Negative (Negative)
[2018-07-08 07:20] LABS: IGA IMMUNOGLOBULIN 146 mg/dL (64-422); IGG IMMUNOGLOBULIN 719 mg/dL (700-1600); IGM IMMUNOGLOBULIN 68 mg/dL (26-217)
[2018-07-09 10:12] LABS: BETA-2-MICROGLOBULIN 6.2 mg/L (0.6-2.4)
== END 2018-07-07 15:30 | disposition home or self-care (01) ==
LOC: JONCCHEMO 07:06 → J7W 10:35 → JONCCHEMO 15:30
PROVIDERS: ATTEND Internal Medicine Hematology & Oncology
DX: Z51.11 Encounter for antineoplastic chemotherapy (principal); C91.10 Chronic lymphocytic leukemia of B-cell type not having achieved remission
CPT/HCPCS: 36415; 80053; 80076; 82232; 82784; 83615; 83735; 84550; 85025; 86317; 86704; 86705; 86803; 96367; 96375; 96413; 96415; J9312

== ENCOUNTER 2018-07-14 07:06 | Day surgery (SDC) | payer OTHER, MEDICARE ==
[2018-07-14] MEDS ORDERED: ACETAMINOPHEN 325 MG TABLET (FP) PO ONE (08:00)
[2018-07-14] MEDS ORDERED: DEXAMETHASONE SODIUM PHOSPHATE 10 MG, DIPHENHYDRAMINE 50 MG in SODIUM CHLORIDE 100 ML IVPB ONE (08:00)
[2018-07-14] MEDS ORDERED: RITUXIMAB IVPB ONE (08:30)
[2018-07-14] MEDS ORDERED: SODIUM CHLORIDE IVPB ONE (08:30)
[2018-07-14 10:36] LABS: BASO % 2.8 % (0-2.0); EOS % 7.9 % (0-4.5); HEMATOCRIT 25.7 % (32.4-45.2); HEMOGLOBIN 8.3 GM/dL (10.7-15.3); MCH 22.1 pg (25.7-33.7); MCHC 32.4 g/dl (32.0-36.0); MEAN CELL VOLUME 68.3 fl (80-96); MEAN PLT VOLUME 10.6 fl (7.5-11.1); MONO % 5.1 % (3.8-10.2); NEUT % 60.2 % (42.8-82.8); PLATELET COUNT 328 K/MM3 (134-434); RBC 3.77 M/mm3 (3.60-5.2); WHITE BLOOD COUNT 2.6 K/mm3 (4.0-10.0)
[2018-07-14 11:42] LABS: ALBUMIN 3.3 g/dl (3.4-5.0); ALK PHOS 90 U/L (45-117); ANION GAP 7 MMOL/L (8-16); BILIRUBIN,DIRECT 0.2 mg/dL (0.0-0.2); BILIRUBIN,TOTAL 0.9 mg/dL (0.2-1); BLOOD UREA NITROGEN 25 mg/dL (7-18); CALCIUM 9.5 mg/dL (8.5-10.1); CHLORIDE 108 mmol/L (98-107); CO2 28 mmol/L (21-32); CREATININE 1.7 mg/dL (0.55-1.3); GLUCOSE,RANDOM 79 mg/dL (74-106); MAGNESIUM 2.2 mg/dL (1.8-2.4); POTASSIUM 3.8 mmol/L (3.5-5.1); SGOT/AST 20 U/L (15-37); SGPT/ALT 15 U/L (13-61); SODIUM 143 mmol/L (136-145); TOT PROT 6.3 g/dl (6.4-8.2); URIC ACID 1.9 mg/dL (2.6-7.2)
[2018-07-14 11:59] LABS: LDH 221 U/L (84-246)
[2018-07-14 17:31] VITALS: BP 136/88; PULSE 87
[2018-07-14] MEDS ORDERED: PORTA CATH FLUSH 10 ML IVPUSH ONE (17:31)
[2018-07-14 17:44] VITALS: TEMP 97.9
== END 2018-07-14 15:30 | disposition home or self-care (01) ==
LOC: JONCCHEMO 07:06 → J7W 14:54 → JONCCHEMO 15:30
PROVIDERS: ATTEND Internal Medicine Hematology & Oncology
DX: Z51.11 Encounter for antineoplastic chemotherapy (principal); C91.10 Chronic lymphocytic leukemia of B-cell type not having achieved remission
CPT/HCPCS: 36415; 80048; 80076; 83615; 83735; 84550; 85025; 96367; 96375; 96413; 96415; J9312

== ENCOUNTER 2018-07-21 07:05 | Day surgery (SDC) | payer OTHER, MEDICARE ==
[2018-07-21] MEDS ORDERED: ACETAMINOPHEN 325 MG TABLET (FP) PO ONE (08:00)
[2018-07-21] MEDS ORDERED: DEXAMETHASONE SODIUM PHOSPHATE 10 MG, DIPHENHYDRAMINE 50 MG in SODIUM CHLORIDE 100 ML IVPB ONE (08:00)
[2018-07-21] MEDS ORDERED: RITUXIMAB IVPB ONE (08:30)
[2018-07-21] MEDS ORDERED: SODIUM CHLORIDE IVPB ONE (08:30)
[2018-07-21 09:48] LABS: BASO % 2.1 % (0-2.0); EOS % 6.3 % (0-4.5); HEMATOCRIT 27.4 % (32.4-45.2); HEMOGLOBIN 8.9 GM/dL (10.7-15.3); LYMPH % 18.9 % (8-40); MCHC 32.5 g/dl (32.0-36.0); MEAN CELL VOLUME 64.7 fl (80-96); MEAN PLT VOLUME 9.1 fl (7.5-11.1); MONO % 4.5 % (3.8-10.2); NEUT % 68.2 % (42.8-82.8); PLATELET COUNT 141 K/MM3 (134-434); RBC 4.23 M/mm3 (3.60-5.2); RDW 20.2 % (11.6-15.6); WHITE BLOOD COUNT 4.3 K/mm3 (4.0-10.0)
[2018-07-21 10:20] LABS: ALBUMIN 3.1 g/dl (3.4-5.0); ALK PHOS 93 U/L (45-117); ANION GAP 8 MMOL/L (8-16); BILIRUBIN,DIRECT 0.3 mg/dL (0.0-0.2); BILIRUBIN,TOTAL 1.1 mg/dL (0.2-1); BLOOD UREA NITROGEN 27 mg/dL (7-18); CALCIUM 9.6 mg/dL (8.5-10.1); CHLORIDE 104 mmol/L (98-107); CO2 26 mmol/L (21-32); CREATININE 1.8 mg/dL (0.55-1.3); GLUCOSE,RANDOM 163 mg/dL (74-106); LDH 203 U/L (84-246); MAGNESIUM 2.3 mg/dL (1.8-2.4); SGOT/AST 20 U/L (15-37); SGPT/ALT 15 U/L (13-61); SODIUM 138 mmol/L (136-145); TOT PROT 6.2 g/dl (6.4-8.2); URIC ACID 1.7 mg/dL (2.6-7.2)
[2018-07-21] MEDS ORDERED: SODIUM CHLORIDE 250 ML IV SCH (11:00)
[2018-07-21 11:47] LABS: ANISOCYTOSIS 1+; OVALOCYTE 1+; PLATELET ESTIMATE DECREASED; TEAR DROP CELLS 1+
[2018-07-21 12:24] VITALS: TEMP 97.5
[2018-07-21] MEDS ORDERED: PORTA CATH FLUSH 10 ML IVPUSH ONE (12:31)
[2018-07-21 16:20] VITALS: BP 94/51; PULSE 66
== END 2018-07-21 13:30 | disposition home or self-care (01) ==
LOC: JONCCHEMO 07:05 → J7W 09:46 → JONCCHEMO 13:30
PROVIDERS: ATTEND Internal Medicine Hematology & Oncology
DX: Z51.11 Encounter for antineoplastic chemotherapy (principal); C91.10 Chronic lymphocytic leukemia of B-cell type not having achieved remission
CPT/HCPCS: 36415; 80048; 80076; 83615; 83735; 84550; 85025; 96361; 96367; 96375; 96413; 96415; J9312

== ENCOUNTER 2018-07-28 07:19 | Day surgery (SDC) | payer OTHER, MEDICARE ==
[2018-07-28] MEDS ORDERED: ACETAMINOPHEN 325 MG TABLET (FP) PO ONE (08:00)
[2018-07-28] MEDS ORDERED: SODIUM CHLORIDE IVPB ONE (08:30)
[2018-07-28] MEDS ORDERED: RITUXIMAB IVPB ONE (08:30)
[2018-07-28] MEDS: DEXAMETHASONE SODIUM PHOSPHATE 10 MG, DIPHENHYDRAMINE 50 MG in SODIUM CHLORIDE 100 ML IVPB ONE ×2 (10:30→10:49)
[2018-07-28] MEDS ORDERED: DEXAMETHASONE SOD PHOSPHATE 10 MG/1 ML VIAL IVPB ONE (10:45)
[2018-07-28 10:56] LABS: BASO % 3.5 % (0-2.0); EOS % 8.3 % (0-4.5); HEMATOCRIT 25.9 % (32.4-45.2); LYMPH % 20.2 % (8-40); MCH 20.1 pg (25.7-33.7); MCHC 31.1 g/dl (32.0-36.0); MEAN CELL VOLUME 64.7 fl (80-96); MEAN PLT VOLUME 9.4 fl (7.5-11.1); MONO % 5.3 % (3.8-10.2); NEUT % 62.7 % (42.8-82.8); PLATELET COUNT 171 K/MM3 (134-434); RDW 19.8 % (11.6-15.6); WHITE BLOOD COUNT 2.8 K/mm3 (4.0-10.0)
[2018-07-28 11:08] LABS: ALBUMIN 2.9 g/dl (3.4-5.0); ALK PHOS 96 U/L (45-117); ANION GAP 6 MMOL/L (8-16); BILIRUBIN,DIRECT 0.2 mg/dL (0.0-0.2); BILIRUBIN,TOTAL 0.7 mg/dL (0.2-1); BLOOD UREA NITROGEN 25 mg/dL (7-18); CALCIUM 9.5 mg/dL (8.5-10.1); CHLORIDE 104 mmol/L (98-107); CO2 28 mmol/L (21-32); CREATININE 1.5 mg/dL (0.55-1.3); GLUCOSE,RANDOM 125 mg/dL (74-106); LDH 176 U/L (84-246); MAGNESIUM 2.4 mg/dL (1.8-2.4); POTASSIUM 3.9 mmol/L (3.5-5.1); SGOT/AST 18 U/L (15-37); SGPT/ALT 17 U/L (13-61); SODIUM 137 mmol/L (136-145); TOT PROT 6.2 g/dl (6.4-8.2); URIC ACID 1.4 mg/dL (2.6-7.2)
[2018-07-28 12:02] LABS: ANISOCYTOSIS 2+; MACROCYTOSIS 0; OVALOCYTE 2+; PLATELET ESTIMATE NORMAL; TEAR DROP CELLS 1+
[2018-07-28 15:42] VITALS: BP 102/52; PULSE 94; TEMP 98.4
[2018-07-28] MEDS ORDERED: PORTA CATH FLUSH 10 ML IVPUSH ONE (15:43)
== END 2018-07-28 14:30 | disposition home or self-care (01) ==
LOC: JONCCHEMO 07:19 → J7W 09:53 → JONCCHEMO 14:30
PROVIDERS: ATTEND Internal Medicine Hematology & Oncology
DX: Z51.11 Encounter for antineoplastic chemotherapy (principal); C91.10 Chronic lymphocytic leukemia of B-cell type not having achieved remission
CPT/HCPCS: 36415; 80048; 80076; 82232; 83615; 83735; 84550; 85025; 96375; 96413; 96415; J1100; J9312

== ENCOUNTER 2018-08-10 08:23 | Day surgery (SDC) | payer OTHER, MEDICARE ==
[2018-08-10 09:58] LABS: BASO % 1.9 % (0-2.0); EOS % 4.8 % (0-4.5); HEMOGLOBIN 7.4 GM/dL (10.7-15.3); LYMPH % 30.3 % (8-40); MCHC 29.6 g/dl (32.0-36.0); MEAN PLT VOLUME 11.1 fl (7.5-11.1); MONO % 2.1 % (3.8-10.2); NEUT % 60.9 % (42.8-82.8); PLATELET COUNT 125 K/MM3 (134-434); RBC 3.97 M/mm3 (3.60-5.2); RDW 18.2 % (11.6-15.6); WHITE BLOOD COUNT 2.5 K/mm3 (4.0-10.0)
[2018-08-10 10:02] LABS: MCH 18.7 pg (25.7-33.7)
[2018-08-10 11:02] LABS: ALBUMIN 3.1 g/dl (3.4-5.0); BILIRUBIN,TOTAL 0.8 mg/dL (0.2-1); CREATININE 1.6 mg/dL (0.55-1.3); MAGNESIUM 2.3 mg/dL (1.8-2.4); POTASSIUM 4.3 mmol/L (3.5-5.1); TOT PROT 6.2 g/dl (6.4-8.2)
[2018-08-10 11:28] LABS: ANISOCYTOSIS 2+; MACROCYTOSIS 0; OVALOCYTE 2+; PLATELET ESTIMATE DECREASED; TARGET CELLS 2+; TEAR DROP CELLS 2+
--- NOTE | 2018-08-10 17:41 | PN ---
Progress Note (short form) - Note Progress Note: Patient seen and examined Remains somewhat confused Receiving 2 units of packed cells. Has received one unit to date - tolerated well. Last Vital Signs Temp Pulse Resp BP Pulse Ox 98.6 F 83 20 138/71 08/10/18 16:38 08/10/18 16:38 08/10/18 16:38 08/10/18 16:38 HEENT: FELIBERTO, EOM Intact Oropharynx: No thrush, No mucositis Neck: Supple Nodes: Without adenopathy Breasts: Without masses Cor: RSR, No murmurs, No gallops Lungs: Clear to P&A Abd: Soft, Normal bowel sounds, No organomegaly Ext:No significant edema Skin: No rashes, Integument intact CBC, BMP 08/10/18 09:30 08/10/18 08:53 Impression: CLL Symptomatic Anemia Plan Transfusion therapy
[2018-08-10 18:53] VITALS: BP 167/89; PULSE 91; TEMP 98.2
[2018-08-10 23:01] LABS: BASO % 3.2 % (0-2.0); EOS % 4.3 % (0-4.5); HEMATOCRIT 34.8 % (32.4-45.2); LYMPH % 29.6 % (8-40); MCH 21.9 pg (25.7-33.7); MCHC 31.5 g/dl (32.0-36.0); MEAN CELL VOLUME 69.6 fl (80-96); MEAN PLT VOLUME 10.2 fl (7.5-11.1); MONO % 4.4 % (3.8-10.2); NEUT % 58.5 % (42.8-82.8); PLATELET COUNT 107 K/MM3 (134-434); WHITE BLOOD COUNT 3.1 K/mm3 (4.0-10.0)
[2018-08-10 23:39] LABS: ANISOCYTOSIS 3+; OVALOCYTE FEW; PLATELET ESTIMATE DECREASED; TEAR DROP CELLS 1+
== END 2018-08-10 22:45 | disposition home or self-care (01) ==
LOC: J7W 08:23 → JONCBLOOD 08:23
PROVIDERS: ATTEND Internal Medicine Hematology & Oncology
PROC: 30233N1 Transfusion of Nonautologous Red Blood Cells into Peripheral Vein, Percutaneous Approach (ICD-10-PCS; principal; 2018-08-10)
DX: C91.10 Chronic lymphocytic leukemia of B-cell type not having achieved remission (principal)
CPT/HCPCS: 36415; 36430; 36511; 80053; 83735; 85025; 86850; 86900; 86901; 86922; P9038; P9058

== ENCOUNTER 2018-08-17 17:03 | Inpatient (IN) | payer OTHER, MEDICARE | END 2018-08-26 21:30 | disposition home health service (06) | LOC: J7W 08-19 17:42 → JER 17:03 → JERBED 18:28 → J7W 23:57 ==

== ENCOUNTER → 2018-09-22 | Day surgery (SDC) | payer OTHER, MEDICARE ==
[~2018-09-22] MED LIST: ACETAMINOPHEN 325 MG TABLET (FP) PO ONE; DEXAMETHASONE SODIUM PHOSPHATE 10 MG, DIPHENHYDRAMINE 25 MG in SODIUM CHLORIDE 100 ML IVPB ONE; RITUXIMAB 500 MG, RITUXIMAB 85 MG in SODIUM CHLORIDE 526.5 ML IVPB ONE; SODIUM CHLORIDE 500 ML IV ONE
[2018-09-22 10:27] LABS: ALBUMIN 3.5 g/dl (3.4-5.0); BILIRUBIN,DIRECT 0.3 mg/dL (0.0-0.2); BILIRUBIN,TOTAL 1.5 mg/dL (0.2-1); TOT PROT 6.6 g/dl (6.4-8.2)
[2018-09-22 10:38] LABS: BLOOD UREA NITROGEN 29.7 mg/dL (7-18); CALCIUM 9.9 mg/dL (8.5-10.1); CREATININE 1.2 mg/dL (0.55-1.3); MAGNESIUM 2.5 mg/dL (1.8-2.4); POTASSIUM 4.8 mmol/L (3.5-5.1); URIC ACID 1.7 mg/dL (2.6-7.2)
== END | disposition home or self-care (01) ==
LOC: JONCCHEMO 07:10
PROVIDERS: ATTEND Internal Medicine Hematology & Oncology
DX: Z53.8 Procedure and treatment not carried out for other reasons (principal)
CPT/HCPCS: 36415; 80048; 80076; 83615; 83735; 84550

== ENCOUNTER 2018-10-08 12:39 | Emergency (ER) | payer OTHER, MEDICARE ==
[2018-10-08 13:03] VITALS: BP 182/84; PULSE 95; TEMP 98.8; BMI 23.6
--- NOTE | 2018-10-08 14:21 | PDOC ---
History of Present Illness - General Chief Complaint: Wound Stated Complaint: LT ABDOMEN REDNESS Time Seen by Provider: 10/08/18 13:30 History Source: Patient Exam Limitations: No Limitations - History of Present Illness Initial Comments: 10/08/18 13:51 72YOF with h/o CLL (followed by Dr. Garcia, just finished a 4-treatment series of rituximab), sepsis of unknown origin, apical lung nodule, pancytopenia, requiring recent pRBC transfusions, gallstones requiring ERCP leading to hemorrhage and transfer to [facility], and multiple episodes of confusion associated with her pancytopenia and recently diagnosed hepatitis (not aware if it is B or C) presents to the ED for redness around a growth on her abdomen. Denies F/C/N?V , pain, warmth or drainage around the area Past History - Past Medical History Allergies/Adverse Reactions: Allergies Allergy/AdvReac Type Severity Reaction Status Date / Time No Known Drug Allergies Allergy Verified 10/08/18 12:57 vancomycin AdvReac Verified 10/08/18 13:03 Home Medications: Ambulatory Orders Folic Acid 1 mg PO DAILY 03/31/18 Allopurinol [Zyloprim -] 300 mg PO DAILY #90 tablet 04/13/18 Acetaminophen [Tylenol .Regular Strength -] 650 mg PO Q6H PRN tablet 05/20/18 Amlodipine Besylate [Norvasc -] 5 mg PO DAILY #90 tablet 08/26/18 Cephalexin [Keflex] 500 mg PO QID #14 capsule 10/08/18 Olanzapine [Zyprexa -] 5 mg PO DAILY 10/08/18 Pantoprazole Sodium [Protonix -] 20 mg PO DAILY 10/08/18 Sulfamethoxazole/Trimethoprim [Bactrim Ds -] 1 tab PO BID #14 tablet 10/08/18 Anemia: Yes Asthma: No Cancer: (Yes; CLL 2013) Cardiac Disorders: (CHF) CVA: No COPD: No CHF: No Dementia: No Diabetes: No GI Disorders: Yes (GERD hep) Disorders: Yes (UTIs) HTN: Yes Hypercholesterolemia: No Liver Disease: No Psychiatric Problems: Yes (Anxiety,depression) Seizures: No Thyroid Disease: No - Surgical History Abdominal Surgery: No Appendectomy: No Cardiac Surgery: No Cholecystectomy: No Lung Surgery: No Neurologic Surgery: No Orthopedic Surgery: No - Immunization History Immunization Up to Date: Yes - Suicide/Smoking/Psychosocial Hx Smoking Status: No Smoking History: Never smoked Have you smoked in the past 12 months: No Number of Cigarettes Smoked Daily: 0 Information on smoking cessation initiated: No Hx Alcohol Use: No Drug/Substance Use Hx: No Substance Use Type: None Hx Substance Use Treatment: No *Physical Exam - Vital Signs Last Vital Signs Temp Pulse Resp BP Pulse Ox 98.8 F 95 H 18 182/84 H 10/08/18 12:58 10/08/18 12:58 10/08/18 12:58 10/08/18 12:58 ED Treatment Course - LABORATORY CBC & Chemistry Diagram: 10/08/18 14:10 10/08/18 14:10 Medical Decision Making - Medical Decision Making 10/08/18 15:52 hematology present in the ED, will assess the pt and determine if pt requires po or IV antibiotics 10/08/18 16:[address] Dr[address] Purvis from Dr. Bain office states pt will be safe for DC home with PO antibiotics due to close to baseline neutrophils Pt will be 300mg bid 7 days bactrim and keflex PCP f/u [facility] 10/08/18 16:08 will give 1 G ceftriaxone IV in the ED and 1 dose PO bactrim 10/08/18 18:36 UA positive for 3+ leauks and around [address] Purvis to discuss prior to DC 10/08/18 19:[address] Purvis pending. Pt s/o to night team regarding disposition Antibiotics sent to pts pharmacy *DC/Admit/Observation/Transfer Diagnosis at time of Disposition: UTI (urinary tract infection), Cellulitis - Discharge Dispostion Disposition: HOME Condition at time of disposition: Stable Decision to Admit order: No - Prescriptions Prescriptions: Sulfamethoxazole/Trimethoprim [Bactrim Ds -] 1 tab PO BID #14 tablet - Referrals Referrals: Sabi Jordan [Primary Care Provider] - - Patient Instructions Printed Discharge Instructions: DI for Urinary Tract Infection (UTI), DI for Cellulitis -- Adult, DI for Pancytopenia Additional Instructions: Please see your primary doctor as soon as possible and make it to your Hematology appointment this month. Take the antibiotics as prescribed for the next 7 days. Return to the ER for new or concerning symptoms including but not limited to: fevers, increased redness around the affected area, pain, changes in bowel or bladder habits, inability to eat or drink, changes in mentation. Thank you - Post Discharge Activity
[2018-10-08 14:27] LABS: BASO % 1.9 % (0-2.0); EOS % 5.1 % (0-4.5); HEMATOCRIT 22.7 % (32.4-45.2); HEMOGLOBIN 7.3 GM/dL (10.7-15.3); LYMPH % 50.1 % (8-40); MCH 21.8 pg (25.7-33.7); MCHC 32.3 g/dl (32.0-36.0); MEAN CELL VOLUME 67.5 fl (80-96); MEAN PLT VOLUME 8.4 fl (7.5-11.1); NEUT % 37.9 % (42.8-82.8); PLATELET COUNT 155 K/MM3 (134-434); RBC 3.36 M/mm3 (3.60-5.2); RDW 24.7 % (11.6-15.6)
[2018-10-08 14:33] LABS: WHITE BLOOD COUNT 1.2 K/mm3 (4.0-10.0)
[2018-10-08 14:34] LABS: ALBUMIN 3.7 g/dl (3.4-5.0); BILIRUBIN,TOTAL 2.3 mg/dL (0.2-1); BLOOD UREA NITROGEN 22.9 mg/dL (7-18); CALCIUM 9.9 mg/dL (8.5-10.1); CREATININE 1.3 mg/dL (0.55-1.3); TOT PROT 6.6 g/dl (6.4-8.2)
[2018-10-08 16:03] LABS: ANISOCYTOSIS 1+; MACROCYTOSIS 0; OVALOCYTE 1+; PLATELET ESTIMATE DECREASED
[2018-10-08] MEDS ORDERED: SULFAMETHOXAZOLE/TRIMETHOPRIM 800MG/160MG D.S. TABLET PO ONE (16:05)
[2018-10-08] MEDS ORDERED: CEFTRIAXONE 1 GM in DEXTROSE 5%-WATER - 100 ML IVPB ONE (16:08)
[2018-10-08] MEDS ORDERED: CEFTRIAXONE 2 GM/100 ML BAG IVPB ONE (16:34)
--- NOTE | 2018-10-08 16:40 | PDOC ---
Documentation entered by Cristine Esqueda SCRIBE, acting as scribe for Stu Wells MD. Stu Wells MD: This documentation has been prepared by the Yin mayer Brenda, SCRIBE, under my direction and personally reviewed by me in its entirety. I confirm that the documentation accurately reflects all work, treatment, procedures, and medical decision making performed by me. Attending Attestation - Resident Resident Name: Hector Meza - ED Attending Attestation I have performed the following: I have examined & evaluated the patient, The case was reviewed & discussed with the resident, I agree w/resident's findings & plan, Exceptions are as noted - HPI HPI: 10/08/18 16:19 The patient is a 72 year old female, with a significant PMH of CLL (with Dr. Garcia, just finished 4-treatment series of rituximab), sepsis of unknown origin , apical lung nodule, pancytopenia (requiring recent pRBC transfusions, [facility] of [facility] associated with her pancytopenia, and was recently diagnosed with hepatitis (daughter is not aware if it is B or C) who presents to the emergency department with a redness around a growth on her lower left quadrant. As per daughter, on the bedside, the growth was originally what looked like a mole, and has been there for 5 years. The daughter reports, it has become larger and has become erythematous around the growth, prompting her arrival to the ED. The patient also endorses a mild itch. The patient denies chest pain, shortness of breath, headache and dizziness. Denies fever, chills, nausea, vomiting, diarrhea and constipation. Denies dysuria, frequency, urgency and hematuria. Allergies: NKA Past surgical history: None reported Social history: Denies PCP: Dr. Matias - Physicial Exam PE: 10/08/18 16:27 GENERAL: The patient is awake, alert, and fully oriented, Nontoxic - in no acute distress. HEAD: Normocephalic, atraumatic. EYES: extraocular movements intact, sclera anicteric, conjunctiva clear. ENT: Normal voice, Moist mucous membranes. NECK: Normal range of motion, supple without lymphadenopathy, JVD, or masses. LUNGS: Breath sounds equal, clear to auscultation bilaterally. No wheezes, no crackles, no rales. HEART: Regular rate and rhythm, normal S1 and S2 without murmur, rub or gallop. ABDOMEN: Soft, nontender, normoactive bowel sounds. No guarding, no rebound. No masses. EXTREMITIES: Normal range of motion, no edema. No clubbing or cyanosis. No cords, erythema, or tenderness. NEUROLOGICAL: No facial asymmetry, Normal speech, moving all 4 extremities spontanouesly and symmetrically PSYCH: Normal mood, normal affect. SKIN: LUQ abdomen- skin thickening/lesion with surrounding erythema without focal ttp, fluctuance, induration, slightly warm to touch - Medical Decision Making 10/08/18 14:49 73y F CLL (last chemo in july), pancytoepnia, hcv, presents with complaint of rash on her LUQ - pt has a chronic lesion on her LUQ that she noticed was red so came to [facility] for evaluation - pt denies any fever/chills, discharge, n/v or othe rcomplaints. on exam pt with lesion and surrounding erythema on LUQ without induration/fluctuance no ttp suspect possible suprainfection/celluitis n osystemic complaints will ck labs no signs of abscess 10/08/18 16:13 labs reviewed pt ntoed neutropenic considered admission/iv abx had an indepth discussion with pt - she does not want to stay in the hospital and wants to go home case margie villa (hemon) - recommends PO abx and neupogen here w outpatient fu return precautions were dsicussed
[2018-10-08] MEDS ORDERED: SULFAMETHOXAZOLE/TRIMETHOPRIM 800MG/160MG D.S. TABLET ONE (16:55)
[2018-10-08] MEDS ORDERED: TBO-FILGRASTIM 300 MCG/0.5 ML DISP.SYRINGE SQ ONE (17:45)
[2018-10-08 18:13] LABS: EPI CELLS 10.5 /HPF (0-5/HPF); HYALINE CASTS 234 /lpf (0-8); PH,URINE 6.5 (5.0-8.0); URINE APPEARANCE TURBID; URINE BACTERIA 3826.7 /hpf (NEGATIVE); URINE BILIRUBIN NEGATIVE (NEGATIVE); URINE COLOR YELLOW; URINE GLUCOSE (UA) NEGATIVE (NEGATIVE); URINE KETONE NEGATIVE (NEGATIVE); URINE LEUK ESTERASE 3+ (NEGATIVE); URINE NITRITE POSITIVE (NEGATIVE); URINE PROTEIN 3+ (NEGATIVE); URINE RBC 391 /hpf (0-4); URINE UROBILINOGEN 0.2 mg/dL (0.2-1.0); URINE WBC 2918 /hpf (0-5)
== END 2018-10-08 19:24 | disposition home or self-care (01) ==
LOC: JER 12:39
PROC: 3E03329 Introduction of Other Anti-infective into Peripheral Vein, Percutaneous Approach (ICD-10-PCS; principal; 2018-10-08)
PROC: 3E023GC Introduction of Other Therapeutic Substance into Muscle, Percutaneous Approach (ICD-10-PCS; 2018-10-08)
DX: N39.0 Urinary tract infection, site not specified (principal); L03.311 Cellulitis of abdominal wall; C91.10 Chronic lymphocytic leukemia of B-cell type not having achieved remission; D61.818 Other pancytopenia; K75.9 Inflammatory liver disease, unspecified
CPT/HCPCS: 36415; 80053; 81003; 83605; 85025; 87040; 87086; 96365; 96372; 99283-25; J1447

== ENCOUNTER 2018-10-13 19:31 | Inpatient (IN) | payer OTHER, MEDICARE ==
--- NOTE | 2018-10-13 20:14 | PDOC ---
Rapid Medical Evaluation Chief Complaint: Abnormal Lab Results (Outside) Time Seen by Provider: 10/13/18 20:10 Medical Evaluation: Allergies Allergy/AdvReac Type Severity Reaction Status Date / Time No Known Drug Allergies Allergy Verified 10/08/18 12:57 vancomycin AdvReac Verified 10/08/18 13:03 10/13/18 20:11 I have performed a brief in-person evaluation of this patient. The patient presents with a chief complaint of: called to come fro low blood counts/ Blood drawn today and told Hbg was 6.7, WBC 1.8 - known leukemia Pertinent physical exam findings: pale. I have ordered the following: CBC, CMP, TandH The patient will proceed to the ED for further evaluation. Discharge Disposition - Diagnosis Anemia - Referrals - Patient Instructions - Post Discharge Activity
--- NOTE | 2018-10-13 20:50 | PDOC ---
History of Present Illness - General Chief Complaint: Abnormal Lab Results (Outside) Stated Complaint: SENT BY DOCTOR Time Seen by Provider: 10/13/18 20:10 Past History - Past Medical History Allergies/Adverse Reactions: Allergies Allergy/AdvReac Type Severity Reaction Status Date / Time No Known Drug Allergies Allergy Verified 10/13/18 20:13 vancomycin AdvReac Verified 10/13/18 20:13 Home Medications: Ambulatory Orders Folic Acid 1 mg PO DAILY 03/31/18 Allopurinol [Zyloprim -] 300 mg PO DAILY #90 tablet 04/13/18 Acetaminophen [Tylenol .Regular Strength -] 650 mg PO Q6H PRN tablet 05/20/18 Amlodipine Besylate [Norvasc -] 5 mg PO DAILY #90 tablet 08/26/18 Cephalexin [Keflex] 500 mg PO BID #14 capsule 10/08/18 Cephalexin [Keflex] 500 mg PO QID #14 capsule 10/08/18 Olanzapine [Zyprexa -] 5 mg PO DAILY 10/08/18 Pantoprazole Sodium [Protonix -] 20 mg PO DAILY 10/08/18 Sulfamethoxazole/Trimethoprim [Bactrim Ds -] 1 tab PO BID #14 tablet 10/08/18 Sulfamethoxazole/Trimethoprim [Bactrim Ds Tablet] 1 each PO BID 7 Days #14 tablet 10/08/18 Anemia: Yes Asthma: No Cancer: (Yes; CLL 2013) Cardiac Disorders: (CHF) CVA: No COPD: No CHF: No Dementia: No Diabetes: No GI Disorders: Yes (GERD hep) Disorders: Yes (UTIs) HTN: Yes Hypercholesterolemia: No Liver Disease: No Psychiatric Problems: Yes (Anxiety,depression) Seizures: No Thyroid Disease: No - Surgical History Abdominal Surgery: No Appendectomy: No Cardiac Surgery: No Cholecystectomy: No Lung Surgery: No Neurologic Surgery: No Orthopedic Surgery: No - Immunization History Immunization Up to Date: Yes - Suicide/Smoking/Psychosocial Hx Smoking Status: No Smoking History: Never smoked Have you smoked in the past 12 months: No Number of Cigarettes Smoked Daily: 0 Information on smoking cessation initiated: No Hx Alcohol Use: No Drug/Substance Use Hx: No Substance Use Type: None Hx Substance Use Treatment: No *Physical Exam - Vital Signs Last Vital Signs Temp Pulse Resp BP Pulse Ox 97.9 F 79 18 113/59 L 100 10/13/18 20:09 10/13/18 20:09 10/13/18 20:09 10/13/18 20:09 10/13/18 20:09 *DC/Admit/Observation/Transfer Diagnosis at time of Disposition: Anemia - Referrals - Patient Instructions - Post Discharge Activity
--- NOTE | 2018-10-13 21:31 | PDOC ---
History of Present Illness - General Chief Complaint: Abnormal Lab Results (Outside) Stated Complaint: SENT BY DOCTOR Time Seen by Provider: 10/13/18 20:10 - History of Present Illness Initial Comments: 10/13/18 21:26 73 y/o F with hx of untreated Hepatitis B, leukemia and recently diagnosed UTI presents to the ED with a Hb of 6.7 from her doctors office.She was seen last week in this ED for a UTI as well as possible cellulitis on her abdomen, for which she received treatment. She currently denies any fevers, chill, diaphoresis, cough, sob, chest pain, abdominal pain, myalgias, dysuria, hematuria, diarrhea or any other constitutional symtoms.She has been sent by her PCP for blood transfusion. 10/13/18 21:47 Past History - Past Medical History Allergies/Adverse Reactions: Allergies Allergy/AdvReac Type Severity Reaction Status Date / Time No Known Drug Allergies Allergy Verified 10/13/18 20:13 vancomycin AdvReac Verified 10/13/18 20:13 Home Medications: Ambulatory Orders Folic Acid 1 mg PO DAILY 03/31/18 Allopurinol [Zyloprim -] 300 mg PO DAILY #90 tablet 04/13/18 Acetaminophen [Tylenol .Regular Strength -] 650 mg PO Q6H PRN tablet 05/20/18 Amlodipine Besylate [Norvasc -] 5 mg PO DAILY #90 tablet 08/26/18 Cephalexin [Keflex] 500 mg PO BID #14 capsule 10/08/18 Cephalexin [Keflex] 500 mg PO QID #14 capsule 10/08/18 Olanzapine [Zyprexa -] 5 mg PO DAILY 10/08/18 Pantoprazole Sodium [Protonix -] 20 mg PO DAILY 10/08/18 Sulfamethoxazole/Trimethoprim [Bactrim Ds -] 1 tab PO BID #14 tablet 10/08/18 Sulfamethoxazole/Trimethoprim [Bactrim Ds Tablet] 1 each PO BID 7 Days #14 tablet 10/08/18 Anemia: Yes Asthma: No Cancer: (Yes; CLL 2013) Cardiac Disorders: (CHF) CVA: No COPD: No CHF: No Dementia: No Diabetes: No GI Disorders: Yes (GERD hep) Disorders: Yes (UTIs) HTN: Yes Hypercholesterolemia: No Liver Disease: No Psychiatric Problems: Yes (Anxiety,depression) Seizures: No Thyroid Disease: No - Surgical History Abdominal Surgery: No Appendectomy: No Cardiac Surgery: No Cholecystectomy: No Lung Surgery: No Neurologic Surgery: No Orthopedic Surgery: No - Immunization History Immunization Up to Date: Yes - Suicide/Smoking/Psychosocial Hx Smoking Status: No Smoking History: Never smoked Have you smoked in the past 12 months: No Number of Cigarettes Smoked Daily: 0 Information on smoking cessation initiated: No Hx Alcohol Use: No Drug/Substance Use Hx: No Substance Use Type: None Hx Substance Use Treatment: No Review of Systems - Review of Systems Constitutional: No: Chills, Fever, Night Sweats HEENTM: No: Eye Pain All Other Systems: Reviewed and Negative *Physical Exam - Vital Signs Last Vital Signs Temp Pulse Resp BP Pulse Ox 97.9 F 79 18 113/59 L 100 10/13/18 20:09 10/13/18 20:09 10/13/18 20:09 10/13/18 20:09 10/13/18 20:09 - Physical Exam General Appearance: Yes: Nourished, Appropriately Dressed HEENT: positive: Normal Voice. negative: Scleral Icterus (R), Scleral Icterus ( L) Neck: positive: Trachea midline, Supple Respiratory/Chest: positive: Lungs Clear, Normal Breath Sounds. negative: Respiratory Distress, Accessory Muscle Use, Labored Respiration, Rapid RR, Rales , Wheezing Cardiovascular: positive: Regular Rhythm, Regular Rate, S1, S2, Edema, Systolic Murmur. negative: JVD Vascular Pulses: Dorsalis-Pedis (R): 2+, Doralis-Pedis (L): 2+ Gastrointestinal/Abdominal: positive: Normal Bowel Sounds, Soft, Protuberent. negative: Rebound, Tenderness Extremity: positive: Normal Capillary Refill, Normal Range of Motion, Other ( pitting edema to the knees). negative: Tender, Coldness, Cyanosis Neurologic: positive: Fully Oriented, Alert, Normal Mood/Affect, Normal Response ED Treatment Course - LABORATORY CBC & Chemistry Diagram: 10/13/18 21:35 10/13/18 21:35 Medical Decision Making - Medical Decision Making 10/13/18 21:43 73 y/o F with Heptatitis B, leukemia and recently diagnosed UTI , here for blood transfusion for low Hb. 10/13/18 21:45 Labs and Imaging ordered Packed cells Type and screen ekg Ptt/pt/inr cmp ferritin bnp, fe, tibc CXR Pt. signed out to Dr. Rincon. *DC/Admit/Observation/Transfer Diagnosis at time of Disposition: Anemia - Referrals - Patient Instructions - Post Discharge Activity
--- NOTE | 2018-10-13 21:40 | PDOC ---
Documentation entered by Cristine Esqueda SCRIBE, acting as scribe for Bryson Crawford MD. Bryson Crawford MD: This documentation has been prepared by the Yin mayer Brenda, SCRIBE, under my direction and personally reviewed by me in its entirety. I confirm that the documentation accurately reflects all work, treatment, procedures, and medical decision making performed by me. Attending Attestation - Resident Resident Name: HedyJameseugenePayal - ED Attending Attestation I have performed the following: I have examined & evaluated the patient, The case was reviewed & discussed with the resident, I agree w/resident's findings & plan, Exceptions are as noted - HPI HPI: 10/13/18 21:50 The patient is a 73 year old female, with a significant PMH of current leukemia , chronic CLL (with Dr. Garcia, just finished 4-treatment series of rituximab), sepsis of unknown origin, apical lung nodule, pancytopenia (requiring recent pRBC transfusions, gallstones (requiring ERCP leading to hemorrhage and transfer to [facility]) and multiple episodes of confusion associated with her pancytopenia, and was recently diagnosed with hepatitis B, who presents to the emergency department, sent by her PCP for evaluation of low blood counts. While at PCP, she had her blood drawn and was told Hbg was 6.7, WBC 1.8, prompting her arrival to the ED. As per PCP, she sent her in for transfusions. Patient reports being currently asymptomatic. The patient denies chest pain, shortness of breath, headache and dizziness. Denies fever, chills, nausea, vomiting, diarrhea and constipation. Denies dysuria, frequency, urgency and hematuria. Allergies: Vancomycin Past surgical history: Not reported Social history: Denies tobacco use, alcohol or drug use. PCP: Dr. Katy Jordan - Physicial Exam PE: 10/13/18 22:05 Agree with exam as documented by resident - Medical Decision Making 10/13/18 22:05 Sent in when H/H was found to be low by PCP Hgb 6.7, Hct 20.7 here today f/u labs, type/screen PRBC admit
[2018-10-13 22:03] LABS: BASO % 5.6 % (0-2.0); EOS % 7.8 % (0-4.5); LYMPH % 42.7 % (8-40); MCH 21.3 pg (25.7-33.7); MCHC 32.6 g/dl (32.0-36.0); MEAN CELL VOLUME 65.6 fl (80-96); MEAN PLT VOLUME 10.2 fl (7.5-11.1); MONO % 3.9 % (3.8-10.2); PLATELET COUNT 306 K/MM3 (134-434); RBC 3.16 M/mm3 (3.60-5.2); RDW 25.3 % (11.6-15.6)
[2018-10-13] MEDS ORDERED: ACETAMINOPHEN 325 MG TABLET (FP) PO PRN (22:03)
[2018-10-13] MEDS ORDERED: PIPERACILLIN/TAZOB 4.5 GM 4.5 GM in DEXTROSE 5%-WATER 100 ML IVPB ONE (22:04)
[2018-10-13 22:05] LABS: HEMOGLOBIN 6.7 GM/dL (10.7-15.3); WHITE BLOOD COUNT 1.6 K/mm3 (4.0-10.0)
[2018-10-13 22:06] LABS: HEMATOCRIT 20.7 % (32.4-45.2)
[2018-10-13 22:47] LABS: INR 1.11 (0.83-1.09); PROTHROMBIN TIME (PATIENT) 13.1 SEC (9.7-13.0)
[2018-10-13 23:36] LABS: ANISOCYTOSIS 3+
[2018-10-13] MEDS ORDERED: PIPERACILLIN/TAZOB 4.5 GM 4.5 GM/100 ML BAG IVPB ONE (23:44)
[2018-10-14 03:03] LABS: EPI CELLS 3.3 /HPF (0-5/HPF); HYALINE CASTS 70 /lpf (0-8); PH,URINE 6.5 (5.0-8.0); URINE APPEARANCE CLOUDY; URINE BACTERIA 100.3 /hpf (NEGATIVE); URINE BILIRUBIN NEGATIVE (NEGATIVE); URINE COLOR YELLOW; URINE GLUCOSE (UA) NEGATIVE (NEGATIVE); URINE KETONE NEGATIVE (NEGATIVE); URINE LEUK ESTERASE 3+ (NEGATIVE); URINE NITRITE NEGATIVE (NEGATIVE); URINE PROTEIN 1+ (NEGATIVE); URINE RBC 321 /hpf (0-4); URINE UROBILINOGEN 0.2 mg/dL (0.2-1.0); URINE WBC 145 /hpf (0-5)
[2018-10-14 03:16] LABS: ALBUMIN 3.7 g/dl (3.4-5.0); BILIRUBIN,TOTAL 1.2 mg/dL (0.2-1); BLOOD UREA NITROGEN 22.7 mg/dL (7-18); CALCIUM 8.9 mg/dL (8.5-10.1); CREATININE 1.8 mg/dL (0.55-1.3); POTASSIUM 4.1 mmol/L (3.5-5.1); TOT PROT 6.5 g/dl (6.4-8.2)
--- NOTE | 2018-10-14 09:08 | HP ---
Admitting History and Physical - Primary Care Physician PCP: Sabi Jordan S - Admission Chief Complaint: abdominal wall cellulits, low WBC low Hg ; ARF History of Present Illness: The patient is a 73 year old female, with a significant PMH of current leukemia , chronic CLL (with Dr. Garcia, just finished 4-treatment series of rituximab), sepsis, pancytopenia (requiring recent pRBC transfusions, gallstones (requiring ERCP leading to hemorrhage and transfer to [facility]) and multiple episodes of confusion associated with her pancytopenia, and was recently diagnosed with hepatitis B, who presents to the emergency department, sent in for evaluation of low blood counts and cellulitis. Pt was seen in ER last weekend for abdominal wall cellulitis and UTI, sent home on keflex and bactrim, saw me in office cellulitis not significantly improved; labs low WBC LOW Hg and ARF and pt sent in for H admission The patient denies chest pain, shortness of breath, headache and dizziness. Denies fever, chills, nausea, vomiting, diarrhea and constipation. Denies dysuria, frequency, urgency and hematuria. History Source: Patient, Significant Other, Medical Record Limitations to Obtaining History: No Limitations - Past Medical History Cardiovascular: Yes: HTN Gastrointestinal: Yes: Diverticulosis (on CT scan), GI Bleed (02/13 post- sphincterotomy bleed) Hepatobiliary: Yes: Cholelithiasis, Choledocholithiasis (with cholangitis 02/13 requring ERCP & sphincterotomy complicated by a post-sphincterotomy bleed ) Renal/: Yes: Renal Calculi Heme/Onc: Yes: Anemia, Cancer (CLL- had bone marrow at [facility] recently), Other ( thalassemia) Psych: Yes: Anxiety Musculoskeletal: Yes: Chronic low back pain - Past Surgical History Past Surgical History: Yes: Tonsillectomy, Upper Endoscopy - Smoking History Smoking history: Never smoked Have you smoked in the past 12 months: No Aproximately how many cigarettes per day: 0 - Alcohol/Substance Use Hx Alcohol Use: No History of Substance Use: reports: None - Social History Usual Living Arrangement: Yes: Alone ADL: Independent 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 of Recent Travel: No Home Medications - Allergies Allergies/Adverse Reactions: Allergies Allergy/AdvReac Type Severity Reaction Status Date / Time vancomycin AdvReac Verified 10/13/18 20:13 - Home Medications Home Medications: Ambulatory Orders Folic Acid 1 mg PO DAILY 03/31/18 Allopurinol [Zyloprim -] 300 mg PO DAILY #90 tablet 04/13/18 Acetaminophen [Tylenol .Regular Strength -] 650 mg PO Q6H PRN tablet 05/20/18 Amlodipine Besylate [Norvasc -] 5 mg PO DAILY #90 tablet 08/26/18 Olanzapine [Zyprexa -] 5 mg PO DAILY 10/08/18 Pantoprazole Sodium [Protonix -] 20 mg PO DAILY 10/08/18 Sulfamethoxazole/Trimethoprim [Bactrim Ds Tablet] 1 each PO BID 7 Days #14 tablet 10/08/18 Family Disease History - Family Disease History Family Disease History: Other: Father (in his 80's pneumonia), Mother ( age 93 of CVA hemorrhage) Review of Systems - Review of Systems Constitutional: denies: Chills, Fever, Lethargy, Loss of Appetite HENT: denies: Difficult Swallowing, Epistaxis Neck: denies: Pain on Movement, Stiffness Cardiovascular: denies: Chest Pain, Palpitations, Shortness of Breath Respiratory: denies: Cough, SOB, SOB on Exertion Gastrointestinal: denies: Abdominal Pain, Constipation, Diarrhea, Vomiting, Vomiting Blood Genitourinary: denies: Burning, Dysuria, Flank Pain Breasts: denies: Pain Musculoskeletal: denies: Back Pain Integumentary: reports: Rash Neurological: denies: Change in LOC, Change in Speech, Confusion, Dizziness, Weakness Endocrine: denies: Intolerance to Cold, Unexplained Weight Gain Hematology/Lymphatic: denies: Easily Bruised, Excessive Bleeding, Swollen Glands Psychiatric: reports: Anxiety. denies: Altered Sleep Pattern, Depression, Suicidal Physical Examination Vital Signs: Vital Signs Temperature 98.1 F 10/14/18 08:12 Pulse Rate 67 10/14/18 08:12 Respiratory Rate 18 10/14/18 08:12 Blood Pressure 150/72 10/14/18 08:12 O2 Sat by Pulse Oximetry (%) 99 10/14/18 08:12 Constitutional: Yes: No Distress, Calm Eyes: Yes: Conjunctiva Clear HENT: Yes: Atraumatic Neck: Yes: Supple Cardiovascular: Yes: Regular Rate and Rhythm Respiratory: Yes: CTA Bilaterally Gastrointestinal: Yes: Soft. No: Tenderness Renal/: No: CVA Tenderness - Left, CVA Tenderness - Right, Hematuria Musculoskeletal: No: Joint Stiffness, Joint Swelling Extremities: No: Cold, Cool, Cyanosis Edema: No Integumentary: Yes: Rash (LUQ abdiminal wall) Neurological: Yes: WNL, Alert, Oriented ...Motor Strength: WNL Psychiatric: Yes: WNL, Alert, Oriented. No: Agitated, Suicidal Ideation Labs: CBC, BMP 10/13/18 21:35 10/14/18 02:19 Imaging - Results Chest X-ray: Report Reviewed Other: Report Reviewed Assessment/Plan The patient is a 73 year old female, with a significant PMH of current leukemia , chronic CLL, sepsis, pancytopenia (requiring recent pRBC transfusions, gallstones (requiring ERCP leading to hemorrhage and transfer to [facility]) and multiple episodes of confusion associated with her pancytopenia, and was recently diagnosed with hepatitis B, who presents to the emergency department with abdominal wall cellulitis and low WBC low Hg ARF IV ATB per ID heme onc eval f/u labs and cultures transfuse PRBC falls pfx d/w pt and staff d/w daughter
--- NOTE | 2018-10-14 10:13 | PN ---
Progress Note (short form) - Note Progress Note: ID consult dictated Admitted for anemia Celllulitis left flank- on po keflex/bactrim since 10/08- ?central nodule CLL- s/p rituxan History of pancytopenia Recent Hep B diagnosis -recent diagnosis per family vancomycin allergy EBER receiving blood transfusion received zosyn overnight suspect eebr due to recent bactrim use blood cultures 10/08 negative will switch to daptomycin given vancomycin allergy after blood cultures d/w dr herrera Problem List - Problems (1) Cellulitis Code(s): L03.90 - CELLULITIS, UNSPECIFIED (2) Anemia Code(s): D64.9 - ANEMIA, UNSPECIFIED (3) Chronic lymphocytic leukemia Code(s): C91.90 - LYMPHOID LEUKEMIA, UNSPECIFIED NOT HAVING ACHIEVED REMISSION (4) Allergy to antibiotic Code(s): Z88.1 - ALLERGY STATUS TO OTHER ANTIBIOTIC AGENTS STATUS
[2018-10-14] MEDS: FOLIC ACID 1 MG TABLET (FP) PO SCH (10:30)
[2018-10-14] MEDS: PANTOPRAZOLE 20 MG TABLET (FP) PO SCH (10:30)
[2018-10-14] MEDS: amLODIPine BESYLATE 5 MG TABLET (FP) PO SCH (10:30)
[2018-10-14] MEDS: ALLOPURINOL 300 MG TABLET (FP) PO SCH (10:31)
[2018-10-14] MEDS: OLANZapine 5 MG TABLET PO SCH (10:31)
--- NOTE | 2018-10-14 11:51 | CONSULT ---
Consult - text type - Consultation Consultation Note: Renal Consult for EBER This is a 72 year old woman with history of CLL, Chronic staghorn calculi, panycytopenia, gallstones who presented with low Hgb as an outpatient and noted to have EBER. Pt is awake and alert in the ER. Offers no acute complaints. Denies any pain, sob, cp, fever or chills. Currently getting PRBC transfusion. No N/V/D. PT does report sporadic NSAID use at home. Denies any dysuria, frequency or urgency. No flank pain, hematuria. Denies any sob. Has been eating. No leg swelling. PMHx: as above Allergies: Vancomycin Family Hx: NC Social Hx: No T/A/D ROS: as per HPI Home Medications Medication Instructions Recorded Folic Acid 1 mg PO DAILY 03/31/18 Allopurinol [Zyloprim -] 300 mg PO DAILY #90 tablet 04/13/18 Acetaminophen [Tylenol .Regular 650 mg PO Q6H PRN tablet 05/20/18 Strength -] Amlodipine Besylate [Norvasc -] 5 mg PO DAILY #90 tablet 08/26/18 Olanzapine [Zyprexa -] 5 mg PO DAILY 10/08/18 Pantoprazole Sodium [Protonix -] 20 mg PO DAILY 10/08/18 Sulfamethoxazole/Trimethoprim 1 each PO BID 7 Days #14 tablet 10/08/18 [Bactrim Ds Tablet] Vital Signs Temperature 98.1 F 10/14/18 08:12 Pulse Rate 67 10/14/18 08:12 Respiratory Rate 18 10/14/18 08:12 Blood Pressure 150/72 10/14/18 08:12 O2 Sat by Pulse Oximetry (%) 99 10/14/18 08:12 NAD awake and alert neck supple, no JVD RRR, no M/R CTA, no rales or wheeze soft NT/ND trace edema, no clubbing or cyanosis no focal neurologic deficits CBC, BMP 10/13/18 21:35 10/14/18 02:19 Current Medications Acetaminophen (Tylenol -) 650 mg PO Q6H PRN PRN Reason: FEVER Allopurinol (Zyloprim -) 300 mg PO DAILY [facility] Last Admin: 10/14/18 10:31 Dose: 300 mg Amlodipine Besylate (Norvasc -) 5 mg PO DAILY [facility] Last Admin: 10/14/18 10:30 Dose: 5 mg Folic Acid (Folic Acid -) 1 mg PO DAILY [facility]YAN Last Admin: 10/14/18 10:30 Dose: 1 mg Daptomycin 350 mg/ Sodium (Chloride) 50 mls @ 100 mls/hr IVPB Q48H RYAN; Protocol Olanzapine (Zyprexa -) 5 mg PO DAILY RYAN Last Admin: 10/14/18 10:31 Dose: 5 mg Pantoprazole Sodium (Protonix -) 20 mg PO DAILY [facility]YAN Last Admin: 10/14/18 10:30 Dose: 20 mg 72 year old woman with history of CLL, Chronic staghorn calculi, panycytopenia, gallstones who presented with low Hgb as an outpatient and noted to have EBER. #EBER in setting of Anemia #CLL #Acute on chronic anemia #Leukopenia #Hypertension Renal function worse then baseline, likely related to renal hypoprofusion in setting of acute anemia. Currently getting PRBC transfusion. Can also get isotonic saline s/p transfusion with careful monitoring of respiratory status. Pt has diastolic dysfunction on prior ECHO with preserved LVEF. No acute need for renal imaging, can obtain if renal function does not improve. continue Abx as per primary heme consult no acute need for dialysis Dose all meds for CrCl < 30 avoid nephrotoxins and IV contrast Tr Duran DO
[2018-10-14] MEDS: DAPTOMYCIN 350 MG in SODIUM CHLORIDE 50 ML IVPB SCH (12:27)
[2018-10-14] MEDS ORDERED: SODIUM CHLORIDE 1,000 ML IV SCH (12:45)
--- NOTE | 2018-10-14 12:47 | EKG ---
Test Reason : Blood Pressure : / mmHG Vent. Rate : 076 BPM Atrial Rate : 076 BPM P-R Int : 106 ms QRS Dur : 078 ms QT Int : 384 ms P-R-T Axes : -11 -34 042 degrees QTc Int : 432 ms POOR DATA QUALITY, INTERPRETATION MAY BE ADVERSELY AFFECTED SINUS RHYTHM WITH SINUS ARRHYTHMIA WITH SHORT AZ LEFT AXIS DEVIATION SEPTAL INFARCT (CITED ON OR BEFORE 07-MAY-2018) ABNORMAL ECG WHEN COMPARED WITH ECG OF 17-AUG-2018 17:48, NO SIGNIFICANT CHANGE WAS FOUND Confirmed by JUNI PEDERSEN MD ([id number]) on 10/14/2018 12:47:41 PM Referred By: Confirmed By:JUNI PEDERSEN MD
[2018-10-14 14:03] LABS: HEMOGLOBIN 9.9 GM/dL (10.7-15.3); MCHC 32.9 g/dl (32.0-36.0)
[2018-10-14 14:12] LABS: BASO % 3.9 % (0-2.0); EOS % 6.6 % (0-4.5); LYMPH % 38.6 % (8-40); MEAN CELL VOLUME 72.9 fl (80-96); MEAN PLT VOLUME 8.2 fl (7.5-11.1); MONO % 2.7 % (3.8-10.2); NEUT % 48.2 % (42.8-82.8); PLATELET COUNT 157 K/MM3 (134-434); RBC 4.11 M/mm3 (3.60-5.2)
[2018-10-14 14:32] LABS: WHITE BLOOD COUNT 1.5 K/mm3 (4.0-10.0)
[2018-10-14 14:35] LABS: ALBUMIN 3.6 g/dl (3.4-5.0); BILIRUBIN,TOTAL 3.6 mg/dL (0.2-1); BLOOD UREA NITROGEN 19.2 mg/dL (7-18); CALCIUM 9.1 mg/dL (8.5-10.1); CREATININE 1.6 mg/dL (0.55-1.3); POTASSIUM 4.3 mmol/L (3.5-5.1); TOT PROT 6.2 g/dl (6.4-8.2)
[2018-10-14 14:52] LABS: ANISOCYTOSIS 2+; MACROCYTOSIS 0; PLATELET ESTIMATE NORMAL; TEAR DROP CELLS 2+
--- NOTE | 2018-10-14 15:44 | CONS ---
DATE OF CONSULTATION: DATE OF DICTATION: 10/14/2018 INFECTIOUS DISEASE CONSULTATION REQUESTED BY: Sabi Jordan MD CONSULTED BY: Vane Schulte MD HISTORY OF PRESENT ILLNESS: Patient is seen and examined, and case was discussed with Dr. Jordan. This is a 73-year-old woman with a history of CLL, pancytopenia. She is status post Rituxan. She was recently seen on October 08 in the emergency room with cellulitis of her left flank surrounding what appears to be a nodule. She refused admission and had cultures drawn that are negative and was placed on Keflex and Bactrim. She was seen yesterday in Dr. Jordan's office and sent over for anemia. She continues to have the cellulitis of the flank, which is unchanged per her daughter and Dr. Jordan. She has no fevers or chills. Otherwise feels well. She is currently receiving a blood transfusion. ALLERGIES: She is ALLERGIC TO VANCOMYCIN. PAST MEDICAL HISTORY: Notable for history of hypertension, diverticulosis, GI bleed, cholelithiasis, choledocholithiasis with cholangitis requiring ERCP and sphincterotomy, complicated by a post sphincterotomy bleed. She has history of renal calculi, anemia, pancytopenia with CLL, chronic low back pain. 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 She has had a tonsillectomy as well. Per Dr. Jordan, she was recently diagnosed with hepatitis B and has recently seen [facility] in outpatient. FAMILY HISTORY: Noncontributory. SOCIAL HISTORY: No history of cigarette or substance use. 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 No history of any recent travel. She has an adverse reaction to vancomycin, apparently pancytopenia per Dr. Jordan. MEDICATIONS: Include folic acid, allopurinol, amlodipine, Zyprexa, Protonix, and she was recently on Bactrim and Keflex. FAMILY HISTORY: Notable for father who in his 80s from pneumonia and mother who at 93 of a CVA. PHYSICAL EXAMINATION: General: She is awake and alert. She is receiving a transfusion. Vital Signs: Temperature is 98.1, pulse is 67, blood pressure is 150/72, respiratory rate is 18. She is saturating 99%. HEENT: She is normocephalic. Her eyes are anicteric. She has no thrush. Lungs: Clear to auscultation. Heart: Regular rate and rhythm. Skin: She has about a 1 cm nodule around which she has an area of erythema, nontender. Abdomen: Her abdomen is otherwise normal exam. Extremities: She has mild erythema of both her lower legs. LABORATORIES: Notable for a white count of 1.6, hemoglobin 6.7, platelets are 306. Her white count is 1.1. Her BUN is 22 and creatinine is 1.8. Urinalysis has 3+ leukocytes. Recent cultures of urine and blood were all negative. IN SUMMARY: This is a 73-year-old woman with chronic lymphocytic leukemia, chronic pancytopenia, and leukopenia, who has no fever, admitted for anemia, but noted to have the cellulitis of her flank. I suspect she has an acute kidney injury due to the Bactrim. She has a recent hepatitis B diagnosis per family, which needs to be verified. She received Zosyn overnight. I would obtain blood cultures and switch to daptomycin for coverage for the cellulitis. She does have chronic neutropenia, but currently, she has no fever, so I do not think she needs empiric gram-negative coverage at present. Further recommendations to follow. Alessandra [id number]
--- NOTE | 2018-10-14 19:43 | PN ---
Progress Note (short form) - Note Progress Note: Patient seen and examned Well known to me History of CLL initially monitored x years, Developed pancytopenia with bone marrow showing > 50 % infiltration. Suspicion was that some of the cytopenias were autoimmune in addition to marrow infiltration related. Had major bleed related to sphincterotomy in past. Has had multiple admissions for infection, cytopenias in past. Decision made to treat CLL with Rituximab and initially had several infusions , but never had 4 weekly infusions such that patient had truncated treatent of 7-8 treatments in total of Rituximab. While monitoring hepatitis status, patient converted from hepatitis core AB negative to core positive. This was confirmed on repeat studies. Insurance issues were such that entecavir could not be obtained , but rather levimudine. Patient has not as yet obtained same due to cost.. Patient developed weakness, anemia, UTI, and abdominal wall cellulitis. Seen in ER --10/08 and give ceftriaxone and bactrim. Discharged on bactrim. Cellulitis became more intense and developed edema, erythema, LE as well as EBER Presented to ER with HCT -20%, [id number] normal platelets 10/13. Last Vital Signs Temp Pulse Resp BP Pulse Ox 98.1 F 67 18 150/72 99 10/14/18 08:12 10/14/18 08:12 10/14/18 08:12 10/14/18 08:12 10/14/18 08:12 HEENT: FELIBERTO, EOM Intact Oropharynx: No thrush, No mucositis Neck: Supple Nodes: Without adenopathy Breasts: Without masses Cor: RSR, No murmurs, No gallops Lungs:Rales bases Abd: Soft, Normal bowel sounds, No organomegaly, left lateral abdominal wall nodule with surrounding erythema Ext: LE edema Skin: Erythematous rash LE's. Integument intact CBC, BMP 10/14/18 13:47 10/14/18 13:47 Current Medications Generic Name Dose Route Start Last Admin Trade Name Freq PRN Reason Stop Dose Admin Acetaminophen 650 mg 10/13/18 22:03 Tylenol - PO Q6H PRN FEVER Allopurinol 300 mg 10/14/18 10:00 10/14/18 10:31 Zyloprim - PO 300 mg DAILY RYAN Administration Amlodipine Besylate 5 mg 10/14/18 10:00 10/14/18 10:30 Norvasc - PO 5 mg DAILY RYAN Administration Folic Acid 1 mg 10/14/18 10:00 10/14/18 10:30 Folic Acid - PO 1 mg DAILY RYAN Administration Daptomycin 350 mg/ Sodium 50 mls @ 100 mls/hr 10/14/18 10:30 10/14/18 12:27 Chloride IVPB 100 mls/hr Q48H RYAN Administration Protocol Sodium Chloride 1,000 mls @ 75 mls/hr 10/14/18 12:45 10/14/18 14:41 Normal Saline - IV 10/15/18 07:00 75 mls/hr ASDIR RYAN Administration Olanzapine 5 mg 10/14/18 10:00 10/14/18 10:31 Zyprexa - PO 5 mg DAILY RYAN Administration Pantoprazole Sodium 20 mg 10/14/18 10:00 10/14/18 10:30 Protonix - PO 20 mg DAILY RYAN Administration Has received 2 units of packed cells. Impression: CLL s/p Rituximab Pancytopenia secondary to CLL Conversion of hepatitis B core Ab NEGATIVE to core ab POSITIVE s/p 2 units packed cells Cellulitis abdominal wall UTI Plan: Try granix - previously poorly responsive if at all to granix Antibiotics per ID Leviudine if available Check immunoglobulins
[2018-10-14] MEDS: TBO-FILGRASTIM 300 MCG/0.5 ML DISP.SYRINGE SQ SCH (22:00)
[2018-10-15 06:53] LABS: BASO % 6.1 % (0-2.0); EOS % 4.5 % (0-4.5); HEMATOCRIT 27.3 % (32.4-45.2); HEMOGLOBIN 9.1 GM/dL (10.7-15.3); LYMPH % 45.8 % (8-40); MCH 24.1 pg (25.7-33.7); MCHC 33.5 g/dl (32.0-36.0); MEAN CELL VOLUME 71.9 fl (80-96); MEAN PLT VOLUME 8.7 fl (7.5-11.1); MONO % 1.1 % (3.8-10.2); NEUT % 42.5 % (42.8-82.8); PLATELET COUNT 134 K/MM3 (134-434); RDW 24.6 % (11.6-15.6); WHITE BLOOD COUNT 2.8 K/mm3 (4.0-10.0)
[2018-10-15 07:00] LABS: ALBUMIN 2.9 g/dl (3.4-5.0); BILIRUBIN,TOTAL 1.8 mg/dL (0.2-1); BLOOD UREA NITROGEN 21.6 mg/dL (7-18); CALCIUM 8.7 mg/dL (8.5-10.1); CREATININE 1.6 mg/dL (0.55-1.3); POTASSIUM 4.2 mmol/L (3.5-5.1); TOT PROT 5.2 g/dl (6.4-8.2)
[2018-10-15 07:04] LABS: BLOOD UREA NITROGEN 21.4 mg/dL (7-18); CREATININE 1.5 mg/dL (0.55-1.3); MAGNESIUM 2.2 mg/dL (1.8-2.4); PHOSPHOROUS 3.1 mg/dL (2.5-4.9); POTASSIUM 4.2 mmol/L (3.5-5.1)
[2018-10-15] MEDS ORDERED: PT OWN MED DRAWER 7, Y5N ONE ×2 (09:43→10:24)
[2018-10-15] MEDS: PANTOPRAZOLE 20 MG TABLET (FP) PO SCH (09:52)
[2018-10-15] MEDS: OLANZapine 5 MG TABLET PO SCH (09:52)
[2018-10-15] MEDS: FOLIC ACID 1 MG TABLET (FP) PO SCH (09:52)
[2018-10-15] MEDS: ALLOPURINOL 300 MG TABLET (FP) PO SCH (09:52)
[2018-10-15] MEDS: amLODIPine BESYLATE 5 MG TABLET (FP) PO SCH (09:52)
[2018-10-15] MEDS: TBO-FILGRASTIM 300 MCG/0.5 ML DISP.SYRINGE SQ SCH (10:24)
--- NOTE | 2018-10-15 11:12 | PN ---
Progress Note (short form) - Note Progress Note: Renal follow up for EBER Pt seen and examined at the bedside sitting in chair no acute complaints denies any sob, cp, abd pain, fever, chills, N/V/D ate breakfast s/p PRBC transfusion yesterday Vital Signs Temperature 98.6 F 10/15/18 10:33 Pulse Rate 70 10/15/18 10:33 Respiratory Rate 18 10/15/18 10:33 Blood Pressure 134/69 10/15/18 10:33 O2 Sat by Pulse Oximetry (%) 98 10/14/18 23:15 Intake & Output 10/12/18 10/13/18 10/14/18 10/15/18 23:59 23:59 23:59 23:59 Intake Total 1665 615 Balance 1665 615 Weight 57.606 kg 58.74 kg NAD RRR, no M/R CTA, no rales or wheeze soft NT/ND + edema in Le CBC, BMP 10/15/18 05:55 10/15/18 05:55 Laboratory Tests 02/15/18 02/24/18 02/25/18 11:20 06:00 11:00 MCV Creatinine Creat Clearance w eGFR 34.13 Calcium 7.9 L Phosphorus Magnesium Total Bilirubin 1.0 Albumin 2.0 L Urine Protein Negative Urine Blood 2+ H Ur Leukocyte Esterase 1+ H Urine WBC (Auto) 4 Urine RBC (Auto) 33 08/24/18 10/13/18 10/14/18 06:45 21:35 02:19 MCV 65.6 L Creatinine Creat Clearance w eGFR Calcium 9.8 8.9 Phosphorus Magnesium Total Bilirubin Albumin 3.0 L 3.7 Urine Protein Urine Blood Ur Leukocyte Esterase Urine WBC (Auto) Urine RBC (Auto) 10/15/18 10/15/18 05:55 05:55 MCV Creatinine 1.6 H Creat Clearance w eGFR Calcium 8.7 Phosphorus 3.1 Magnesium 2.2 Total Bilirubin 1.8 H Albumin 2.9 L Urine Protein Urine Blood Ur Leukocyte Esterase Urine WBC (Auto) Urine RBC (Auto) Current Medications Acetaminophen (Tylenol -) 650 mg PO Q6H PRN PRN Reason: FEVER Allopurinol (Zyloprim -) 300 mg PO DAILY [facility] Last Admin: 10/15/18 09:52 Dose: 300 mg Amlodipine Besylate (Norvasc -) 5 mg PO DAILY [facility] Last Admin: 10/15/18 09:52 Dose: 5 mg Folic Acid (Folic Acid -) 1 mg PO DAILY [facility] Last Admin: 10/15/18 09:52 Dose: 1 mg Daptomycin 350 mg/ Sodium (Chloride) 50 mls @ 100 mls/hr IVPB Q48H RYAN; Protocol Last Admin: 10/14/18 12:27 Dose: 100 mls/hr Olanzapine (Zyprexa -) 5 mg PO DAILY [facility] Last Admin: 10/15/18 09:52 Dose: 5 mg Pantoprazole Sodium (Protonix -) 20 mg PO DAILY [facility] Last Admin: 10/15/18 09:52 Dose: 20 mg Tbo-Filgrastim (Granix -) 300 mcg SQ DAILY [facility] Last Admin: 10/15/18 10:24 Dose: 300 mcg 72 year old woman with history of CLL, Chronic staghorn calculi, panycytopenia, gallstones who presented with low Hgb as an outpatient and noted to have EBER. #EBER in setting of Anemia #CLL #Acute on chronic anemia #Leukopenia #Hypertension Renal function improving s/p PRBC and IVF can hold further IVF at this time as pt is tolerating oral diet continue Abx as per primary Heme follow up Dose all meds for CrCl < 30 avoid nephrotoxins and IV contrast trend renal function and electrolytes Tr Duran DO
[2018-10-15 13:15] LABS: ANISOCYTOSIS 2+
[2018-10-15 13:16] LABS: OVALOCYTE 1+; TEAR DROP CELLS 2+
[2018-10-15 13:17] LABS: PLATELET ESTIMATE SLT DECREASE
--- NOTE | 2018-10-15 16:23 | PN ---
Progress Note, Physician History of Present Illness: Pt w/o fever, chills, CP, SOB, palpitations, abd pain. Pt removed IV access to perma-cath. - Current Medication List Current Medications: Active Medications Acetaminophen (Tylenol -) 650 mg PO Q6H PRN PRN Reason: FEVER Allopurinol (Zyloprim -) 300 mg PO DAILY [facility] Last Admin: 10/15/18 09:52 Dose: 300 mg Amlodipine Besylate (Norvasc -) 5 mg PO DAILY [facility] Last Admin: 10/15/18 09:52 Dose: 5 mg Folic Acid (Folic Acid -) 1 mg PO DAILY [facility] Last Admin: 10/15/18 09:52 Dose: 1 mg Daptomycin 350 mg/ Sodium (Chloride) 50 mls @ 100 mls/hr IVPB Q48H [facility]; Protocol Last Admin: 10/14/18 12:27 Dose: 100 mls/hr Olanzapine (Zyprexa -) 5 mg PO DAILY [facility] Last Admin: 10/15/18 09:52 Dose: 5 mg Pantoprazole Sodium (Protonix -) 20 mg PO DAILY [facility] Last Admin: 10/15/18 09:52 Dose: 20 mg Tbo-Filgrastim (Granix -) 300 mcg SQ DAILY [facility] Last Admin: 10/15/18 10:24 Dose: 300 mcg - Objective Vital Signs: Vital Signs Temperature 98.3 F 10/15/18 14:00 Pulse Rate 73 10/15/18 14:00 Respiratory Rate 20 10/15/18 14:00 Blood Pressure 122/57 L 10/15/18 14:00 O2 Sat by Pulse Oximetry (%) 98 10/15/18 09:00 Constitutional: Yes: No Distress, Calm Cardiovascular: Yes: Regular Rate and Rhythm, S1, S2 Respiratory: Yes: Regular, CTA Bilaterally. No: Rhonchi Gastrointestinal: Yes: Normal Bowel Sounds, Soft, Tenderness Edema: LLE: Trace, RLE: Trace Integumentary: Yes: Other (Left upper abdomen: area of erythema, 1 cm diameter rubbery mass, no drainage, no bleeding; no pain with palpation) Labs: CBC, BMP 10/15/18 05:55 10/15/18 05:55 INR, PTT INR 1.11 (0.83-1.09) H 10/13/18 21:35 Problem List - Problems (1) Anemia Code(s): D64.9 - ANEMIA, UNSPECIFIED (2) Leukopenia Code(s): D72.819 - DECREASED WHITE BLOOD CELL COUNT, UNSPECIFIED (3) Thrombocytopenia Code(s): D69.6 - THROMBOCYTOPENIA, UNSPECIFIED (4) Chronic lymphocytic leukemia Code(s): C91.90 - LYMPHOID LEUKEMIA, UNSPECIFIED NOT HAVING ACHIEVED REMISSION (5) EBER (acute kidney injury) Code(s): N17.9 - ACUTE KIDNEY FAILURE, UNSPECIFIED (6) Cellulitis, abdominal wall Code(s): L03.311 - CELLULITIS OF ABDOMINAL WALL (7) Hepatitis B Code(s): B19.10 - UNSPECIFIED VIRAL HEPATITIS B WITHOUT HEPATIC COMA Assessment/Plan Cont IV abtx s/p PRBC Tx Heme, ID, Renal consults are appreciated. AM labs. Pt's condition was d/w pt's nurse
--- NOTE | 2018-10-15 18:37 | PN ---
Progress Note (short form) - Note Progress Note: Progress Note (short form) - Note Progress Note: Patient seen and examined. Pulled her Port-A-Cath today (10/15) History of CLL initially monitored x years, Developed pancytopenia with bone marrow showing > 50 % infiltration. Suspicion was that some of the cytopenias were autoimmune in addition to marrow infiltration related. Had major bleed related to sphincterotomy in past. Has had multiple admissions for infection, cytopenias in past. Decision made to treat CLL with Rituximab and initially had several infusions , but never had 4 weekly infusions such that patient had truncated treatmwnt of 7-8 treatments in total of Rituximab. While monitoring hepatitis status, patient converted from hepatitis core AB negative to core positive. This was confirmed on repeat studies. Insurance issues were such that entecavir could not be obtained , but rather levimudine. Patient has not as yet obtained same due to cost.. Patient developed weakness, anemia, UTI, and abdominal wall cellulitis. Seen in ER --10/08 and give ceftriaxone and bactrim. Discharged on bactrim. Cellulitis became more intense and developed edema, erythema, LE as well as EBER Presented to ER with HCT -20%, [id number] normal platelets 10/13. 10/15/18 05:55 10/15/18 05:55 HEENT: FELIBERTO, EOM Intact Oropharynx: No thrush, No mucositis Neck: Supple Nodes: Without adenopathy Breasts: Without masses Cor: RSR, No murmurs, No gallops Lungs:Rales bases Abd: Soft, Normal bowel sounds, No organomegaly, left lateral abdominal wall nodule with surrounding erythema Ext: LE edema Skin: Erythematous rash LE's. Integument intact Current Medications Generic Name Dose Route Start Last Admin Trade Name Freq PRN Reason Stop Dose Admin Acetaminophen 650 mg 10/13/18 22:03 Tylenol - PO Q6H PRN FEVER Allopurinol 300 mg 10/14/18 10:10/15/18 09:52 Zyloprim - PO 300 mg DAILY RYAN Administration Amlodipine Besylate 5 mg 10/14/18 10:10/15/18 09:52 Norvasc - PO 5 mg DAILY RYAN Administration Folic Acid 1 mg 10/14/18 10:00 10/15/18 09:52 Folic Acid - PO 1 mg DAILY RYAN Administration Daptomycin 350 mg/ Sodium 50 mls @ 100 mls/hr 10/14/18 10:30 10/14/18 12:27 Chloride IVPB 100 mls/hr Q48H RYAN Administration Protocol Olanzapine 5 mg 10/14/18 10:00 10/15/18 09:52 Zyprexa - PO 5 mg DAILY RYAN Administration Pantoprazole Sodium 20 mg 10/14/18 10:00 10/15/18 09:52 Protonix - PO 20 mg DAILY RYAN Administration Tbo-Filgrastim 300 mcg 10/14/18 20:00 10/15/18 10:24 Granix - SQ 300 mcg DAILY RYAN Administration Has received 2 units of packed cells. Impression: CLL s/p Rituximab Pancytopenia secondary to CLL Conversion of hepatitis B core Ab NEGATIVE to core ab POSITIVE s/p 2 units packed cells Cellulitis abdominal wall UTI Plan: Granix-Filgrastim: Responding well. WBC up to 2.8 (from 1.5) and ANC 1.2 (0.7). Will continue Antibiotics per ID Lamivudine if available. Check immunoglobulins
[2018-10-16 04:10] LABS: SERUM IRON SATURATION 61 % (15-55); TOTAL IRON BINDING CAPACITY 241 ug/dL (250-450)
[2018-10-16 08:06] LABS: BLOOD UREA NITROGEN 21.9 mg/dL (7-18); CALCIUM 9.3 mg/dL (8.5-10.1); CREATININE 1.5 mg/dL (0.55-1.3); MAGNESIUM 2.1 mg/dL (1.8-2.4); POTASSIUM 3.9 mmol/L (3.5-5.1)
[2018-10-16] MEDS ORDERED: PT OWN MED DRAWER 7, Y5N ONE (09:25)
[2018-10-16] MEDS: PANTOPRAZOLE 20 MG TABLET (FP) PO SCH (09:34)
[2018-10-16] MEDS: OLANZapine 5 MG TABLET PO SCH (09:34)
[2018-10-16] MEDS: FOLIC ACID 1 MG TABLET (FP) PO SCH (09:34)
[2018-10-16] MEDS: ALLOPURINOL 300 MG TABLET (FP) PO SCH (09:34)
[2018-10-16] MEDS: TBO-FILGRASTIM 300 MCG/0.5 ML DISP.SYRINGE SQ SCH (09:41)
[2018-10-16] MEDS: amLODIPine BESYLATE 5 MG TABLET (FP) PO SCH (10:24)
[2018-10-16] MEDS: DAPTOMYCIN 350 MG in SODIUM CHLORIDE 50 ML IVPB SCH (11:41)
--- NOTE | 2018-10-16 12:42 | PN ---
Progress Note, Physician History of Present Illness: Pt w/o fever, chills, CP, SOB, palpitations, abd pain, diarrhea, abd wall pain. - Current Medication List Current Medications: Active Medications Acetaminophen (Tylenol -) 650 mg PO Q6H PRN PRN Reason: FEVER Allopurinol (Zyloprim -) 300 mg PO DAILY [facility] Last Admin: 10/16/18 09:34 Dose: 300 mg Amlodipine Besylate (Norvasc -) 5 mg PO DAILY [facility] Last Admin: 10/16/18 10:24 Dose: Not Given Folic Acid (Folic Acid -) 1 mg PO DAILY [facility] Last Admin: 10/16/18 09:34 Dose: 1 mg Daptomycin 350 mg/ Sodium (Chloride) 50 mls @ 100 mls/hr IVPB Q48H [facility]; Protocol Last Admin: 10/16/18 11:41 Dose: 100 mls/hr Olanzapine (Zyprexa -) 5 mg PO DAILY [facility] Last Admin: 10/16/18 09:34 Dose: 5 mg Pantoprazole Sodium (Protonix -) 20 mg PO DAILY [facility] Last Admin: 10/16/18 09:34 Dose: 20 mg Tbo-Filgrastim (Granix -) 300 mcg SQ DAILY [facility] Last Admin: 10/16/18 09:41 Dose: 300 mcg - Objective Vital Signs: Vital Signs Temperature 98.2 F 10/16/18 09:00 Pulse Rate 70 10/16/18 09:00 Respiratory Rate 20 10/16/18 09:00 Blood Pressure 108/54 L 10/16/18 09:00 O2 Sat by Pulse Oximetry (%) 95 10/15/18 20:27 Constitutional: Yes: No Distress, Calm Cardiovascular: Yes: Regular Rate and Rhythm, S1, S2 Respiratory: Yes: Regular, CTA Bilaterally. No: Rales Gastrointestinal: Yes: Normal Bowel Sounds, Soft. No: Tenderness Edema: LLE: Trace, RLE: Trace Neurological: Yes: Alert, Oriented Labs: CBC, BMP 10/15/18 05:55 10/16/18 06:35 INR, PTT INR 1.11 (0.83-1.09) H 10/13/18 21:35 Problem List - Problems (1) Anemia Code(s): D64.9 - ANEMIA, UNSPECIFIED (2) Leukopenia Code(s): D72.819 - DECREASED WHITE BLOOD CELL COUNT, UNSPECIFIED (3) Thrombocytopenia Code(s): D69.6 - THROMBOCYTOPENIA, UNSPECIFIED (4) Chronic lymphocytic leukemia Code(s): C91.90 - LYMPHOID LEUKEMIA, UNSPECIFIED NOT HAVING ACHIEVED REMISSION (5) EBER (acute kidney injury) Code(s): N17.9 - ACUTE KIDNEY FAILURE, UNSPECIFIED (6) Cellulitis, abdominal wall Code(s): L03.311 - CELLULITIS OF ABDOMINAL WALL (7) Hepatitis B Code(s): B19.10 - UNSPECIFIED VIRAL HEPATITIS B WITHOUT HEPATIC COMA Assessment/Plan s/p Rituximab s/p Conversion to Hep B Cont IV abtx (failed PO abtx) On Granix s/p PRBC Tx To f/u labs Heme, ID, Renal consults are appreciated. AM labs. Pt's condition was d/w pt's nurse
[2018-10-16 13:14] LABS: HEMATOCRIT 31.5 % (32.4-45.2); HEMOGLOBIN 10.2 GM/dL (10.7-15.3); MCH 23.4 pg (25.7-33.7); MCHC 32.4 g/dl (32.0-36.0); MEAN CELL VOLUME 72.3 fl (80-96); MEAN PLT VOLUME 8.3 fl (7.5-11.1); PLATELET COUNT 159 K/MM3 (134-434); RBC 4.36 M/mm3 (3.60-5.2); RDW 25.9 % (11.6-15.6)
[2018-10-16 13:39] LABS: ALBUMIN 3.4 g/dl (3.4-5.0); BILIRUBIN,TOTAL 1.2 mg/dL (0.2-1); BLOOD UREA NITROGEN 20.2 mg/dL (7-18); CALCIUM 9.1 mg/dL (8.5-10.1); CREATININE 1.4 mg/dL (0.55-1.3); POTASSIUM 3.9 mmol/L (3.5-5.1); TOT PROT 6.1 g/dl (6.4-8.2)
--- NOTE | 2018-10-16 14:15 | PN ---
Progress Note, Physician History of Present Illness: OOB IN CHAIR NO C/O FLANK PAIN AFEBRILE WBC 11K BC (-) - Current Medication List Current Medications: Active Medications Acetaminophen (Tylenol -) 650 mg PO Q6H PRN PRN Reason: FEVER Allopurinol (Zyloprim -) 300 mg PO DAILY [facility] BEDS AT [facility] Last Admin: 10/16/18 09:34 Dose: 300 mg Amlodipine Besylate (Norvasc -) 5 mg PO DAILY [facility] 234 BEDS AT THE [facility] Last Admin: 10/16/18 10:24 Dose: Not Given Folic Acid (Folic Acid -) 1 mg PO DAILY [facility] 234 BEDS AT THE [facility] Last Admin: 10/16/18 09:34 Dose: 1 mg Daptomycin 350 mg/ Sodium (Chloride) 50 mls @ 100 mls/hr IVPB Q48H [facility]CLUDE 234 BEDS AT THE [facility]; Protocol Last Admin: 10/16/18 11:41 Dose: 100 mls/hr Olanzapine (Zyprexa -) 5 mg PO DAILY [facility] 234 BEDS AT THE [facility] Last Admin: 10/16/18 09:34 Dose: 5 mg Pantoprazole Sodium (Protonix -) 20 mg PO DAILY [facility] 234 BEDS AT THE [facility] Last Admin: 10/16/18 09:34 Dose: 20 mg Tbo-Filgrastim (Granix -) 300 mcg SQ DAILY [facility] 234 BEDS AT THE [facility] Last Admin: 10/16/18 09:41 Dose: 300 mcg - Objective Vital Signs: Vital Signs Temperature 98.2 F 10/16/18 09:00 Pulse Rate 70 10/16/18 09:00 Respiratory Rate 20 10/16/18 09:00 Blood Pressure 108/54 L 10/16/18 09:00 O2 Sat by Pulse Oximetry (%) 95 10/15/18 20:27 Constitutional: Yes: No Distress Eyes: Yes: Conjunctiva Clear Cardiovascular: Yes: Regular Rate and Rhythm, S1, S2 Respiratory: Yes: CTA Bilaterally Gastrointestinal: Yes: Normal Bowel Sounds, Soft. No: Tenderness Integumentary: Yes: Other (3X5CM AREA OF ERYTHEMA L FLANK NO FLUCTUANCE/ DRAINAGE) Labs: CBC, BMP 10/16/18 12:35 10/16/18 12:35 INR, PTT INR 1.11 (0.83-1.09) H 10/13/18 21:35 Assessment/Plan CELLULITIS L FLANK S/P LEUKOPENIA HX VRE CONTINUE DAPTOMYCIN
--- NOTE | 2018-10-16 14:55 | PN ---
Progress Note (short form) - Note Progress Note: Progress Note (short form) - Note Progress Note: 10/16/18: Patient seen and examined. No complaints today. History of CLL initially monitored x years, Developed pancytopenia with bone marrow showing > 50 % infiltration. Suspicion was that some of the cytopenias were autoimmune in addition to marrow infiltration related. Had major bleed related to sphincterotomy in past. Has had multiple admissions for infection, cytopenias in past. Decision made to treat CLL with Rituximab and initially had several infusions , but never had 4 weekly infusions such that patient had truncated treatmwnt of 7-8 treatments in total of Rituximab. While monitoring hepatitis status, patient converted from hepatitis core AB negative to core positive. This was confirmed on repeat studies. Insurance issues were such that entecavir could not be obtained , but rather levimudine. Patient has not as yet obtained same due to cost.. Patient developed weakness, anemia, UTI, and abdominal wall cellulitis. Seen in ER --10/08 and give ceftriaxone and bactrim. Discharged on bactrim. Cellulitis became more intense and developed edema, erythema, LE as well as EBER Presented to ER with HCT -20%, [id number] normal platelets 10/13. 10/16/18 12:35 10/16/18 12:35 ROS: 14 point review of systems elicited and negative Physical Exam HEENT: FELIBERTO, EOM Intact Oropharynx: No thrush, No mucositis Neck: Supple Nodes: Without adenopathy Breasts: Without masses Cor: RSR, No murmurs, No gallops Lungs:Rales bases Abd: Soft, Normal bowel sounds, No organomegaly, left lateral abdominal wall nodule with surrounding erythema Ext: LE edema Skin: Erythematous rash LE's. Integument intact Current Medications Generic Name Dose Route Start Last Admin Trade Name Freq PRN Reason Stop Dose Admin Acetaminophen 650 mg 10/13/18 22:03 Tylenol - PO Q6H PRN FEVER Allopurinol 300 mg 10/14/18 10:00 10/16/18 09:34 Zyloprim - PO 300 mg DAILY RYAN Administration Amlodipine Besylate 5 mg 10/14/18 10:00 10/16/18 10:24 Norvasc - PO Not Given DAILY RYAN Folic Acid 1 mg 10/14/18 10:10/16/18 09:34 Folic Acid - PO 1 mg DAILY RYAN Administration Daptomycin 350 mg/ Sodium 50 mls @ 100 mls/hr 10/14/18 10:30 10/16/18 11:41 Chloride IVPB 100 mls/hr Q48H RYAN Administration Protocol Olanzapine 5 mg 10/14/18 10:00 10/16/18 09:34 Zyprexa - PO 5 mg DAILY RYAN Administration Pantoprazole Sodium 20 mg 10/14/18 10:00 10/16/18 09:34 Protonix - PO 20 mg DAILY RYAN Administration Tbo-Filgrastim 300 mcg 10/14/18 20:00 10/16/18 09:41 Granix - SQ 300 mcg DAILY RYAN Administration Impression: CLL s/p Rituximab Pancytopenia secondary to CLL Beta Thalassemia minor. Conversion of hepatitis B core Ab NEGATIVE to core ab POSITIVE s/p 2 units packed cells Cellulitis abdominal wall UTI Plan: Granix-Filgrastim: Responding well. WBC up to 11,000. Pending ANC. Hold Granix and monitor Antibiotics per ID Lamivudine if available. Check immunoglobulins
[2018-10-16 16:50] LABS: HEMATOCRIT 32.3 % (32.4-45.2); HEMOGLOBIN 10.5 GM/dL (10.7-15.3); MCH 23.7 pg (25.7-33.7); MCHC 32.4 g/dl (32.0-36.0); MEAN CELL VOLUME 73.1 fl (80-96); PLATELET COUNT 165 K/MM3 (134-434); RBC 4.42 M/mm3 (3.60-5.2); RDW 25.9 % (11.6-15.6); WHITE BLOOD COUNT 10.9 K/mm3 (4.0-10.0)
[2018-10-16 17:12] LABS: MEAN PLT VOLUME 8.5 fl (7.5-11.1)
[2018-10-16] MEDS ORDERED: LORazepam 0.5 MG TABLET PO PRN (17:57)
[2018-10-16 18:18] LABS: ANISOCYTOSIS 3+; MACROCYTOSIS 1+; OVALOCYTE 2+; PLATELET ESTIMATE DECREASED; TARGET CELLS 1+; TEAR DROP CELLS 1+
[2018-10-17 06:39] LABS: ALBUMIN 3.1 g/dl (3.4-5.0); BILIRUBIN,TOTAL 0.8 mg/dL (0.2-1); BLOOD UREA NITROGEN 21.6 mg/dL (7-18); CALCIUM 9.1 mg/dL (8.5-10.1); CREATININE 1.4 mg/dL (0.55-1.3); TOT PROT 5.5 g/dl (6.4-8.2)
[2018-10-17] MEDS ORDERED: PT OWN MED DRAWER 7, Y5N ONE (08:45)
[2018-10-17] MEDS: ALLOPURINOL 300 MG TABLET (FP) PO SCH (09:02)
[2018-10-17] MEDS: FOLIC ACID 1 MG TABLET (FP) PO SCH (09:02)
[2018-10-17] MEDS: amLODIPine BESYLATE 5 MG TABLET (FP) PO SCH (09:02)
[2018-10-17] MEDS: PANTOPRAZOLE 20 MG TABLET (FP) PO SCH (09:02)
[2018-10-17] MEDS: OLANZapine 5 MG TABLET PO SCH (09:02)
--- NOTE | 2018-10-17 09:56 | PN ---
Progress Note, Physician Chief Complaint: OOB to WC NAD In good spirits no new co; UCx c/w UTI noted; LUQ cellulitis on IV ATB per ID; CBC counts noted better; - Current Medication List Current Medications: Active Medications Acetaminophen (Tylenol -) 650 mg PO Q6H PRN PRN Reason: FEVER Allopurinol (Zyloprim -) 300 mg PO DAILY [facility] Last Admin: 10/17/18 09:02 Dose: 300 mg Amlodipine Besylate (Norvasc -) 5 mg PO DAILY [facility] Last Admin: 10/17/18 09:02 Dose: 5 mg Folic Acid (Folic Acid -) 1 mg PO DAILY [facility] Last Admin: 10/17/18 09:02 Dose: 1 mg Daptomycin 350 mg/ Sodium (Chloride) 50 mls @ 100 mls/hr IVPB Q48H [facility]; Protocol Last Admin: 10/16/18 11:41 Dose: 100 mls/hr Lorazepam (Ativan -) 0.5 mg PO Q12H PRN PRN Reason: ANXIETY Olanzapine (Zyprexa -) 5 mg PO DAILY [facility] Last Admin: 10/17/18 09:02 Dose: 5 mg Pantoprazole Sodium (Protonix -) 20 mg PO DAILY [facility] Last Admin: 10/17/18 09:02 Dose: 20 mg Tbo-Filgrastim (Granix -) 300 mcg SQ DAILY [facility] Last Admin: 10/16/18 09:41 Dose: 300 mcg - Objective Vital Signs: Vital Signs Temperature 97.0 F L 10/17/18 06:00 Pulse Rate 69 10/17/18 06:00 Respiratory Rate 20 10/17/18 06:00 Blood Pressure 139/73 10/17/18 06:00 O2 Sat by Pulse Oximetry (%) 94 L 10/16/18 20:39 Constitutional: Yes: No Distress, Calm Eyes: Yes: Conjunctiva Clear HENT: Yes: Atraumatic Neck: Yes: Supple Cardiovascular: Yes: Regular Rate and Rhythm Respiratory: Yes: CTA Bilaterally Gastrointestinal: Yes: Soft. No: Tenderness Genitourinary: No: Hematuria Musculoskeletal: No: Joint Stiffness, Joint Swelling Extremities: No: Cold, Cool Edema: No Integumentary: Yes: Rash (LUQ) Neurological: Yes: Alert, Oriented ...Motor Strength: WNL Psychiatric: Yes: Alert, Oriented. No: Agitated, Suicidal Ideation Labs: CBC, BMP 10/17/18 05:00 10/17/18 05:00 INR, PTT INR 1.11 (0.83-1.09) H 10/13/18 21:35 - ....Imaging Other: Report Reviewed Assessment/Plan The patient is a 73 year old female, with a significant PMH of current leukemia , chronic CLL, sepsis, pancytopenia (requiring recent pRBC transfusions, gallstones (requiring ERCP leading to hemorrhage and transfer to [facility]) and multiple episodes of confusion associated with her pancytopenia, and was recently diagnosed with hepatitis B, who presents to the emergency department with abdominal wall cellulitis and low WBC low Hg ARF; UTI. IV ATB per ID heme onc f/u, s/p sq neupogen and PRBC transfusions f/u labs and cultures transfuse PRBC falls pfx d/w pt and staff
[2018-10-17] MEDS: TBO-FILGRASTIM 300 MCG/0.5 ML DISP.SYRINGE SQ SCH (12:00)
--- NOTE | 2018-10-17 14:40 | PN ---
Progress Note (short form) - Note Progress Note: doing well oob to chair no longer neutropenic renal funciton improving Vital Signs Period Temp Pulse Resp BP Sys/Borjas Pulse Ox Last 24 Hr 97.0 F-98.8 F 63-114 20-20 110-145/57-73 94 cor-rrr llungs clear still with nodule with some erythema surrounding it- but less CBC, BMP 10/17/18 05:00 10/17/18 05:00 Microbiology 10/14/18 13:50 Blood - Peripheral Venous Blood Culture - Preliminary NO GROWTH OBTAINED AFTER 72 HOURS, INCUBATION TO CONTINUE FOR 2 DAYS. 10/14/18 13:47 Blood - Peripheral Venous Blood Culture - Preliminary NO GROWTH OBTAINED AFTER 72 HOURS, INCUBATION TO CONTINUE FOR 2 DAYS. 10/14/18 00:10 Urine - Urine Clean Catch Urine Culture - Final Vr Ec Faecium Enterococcus Faecalis a/p Admitted for anemia Celllulitis left flank- continue daptomycin, increase dose due to improved renal function History of pancytopenia Recent Hep B diagnosis -recent diagnosis per family vancomycin allergy EBER Problem List - Problems (1) Cellulitis Code(s): L03.90 - CELLULITIS, UNSPECIFIED (2) Anemia Code(s): D64.9 - ANEMIA, UNSPECIFIED (3) Chronic lymphocytic leukemia Code(s): C91.90 - LYMPHOID LEUKEMIA, UNSPECIFIED NOT HAVING ACHIEVED REMISSION (4) Allergy to antibiotic Code(s): Z88.1 - ALLERGY STATUS TO OTHER ANTIBIOTIC AGENTS STATUS
[2018-10-17] MEDS: DAPTOMYCIN 350 MG in SODIUM CHLORIDE 50 ML IVPB SCH (15:33)
--- NOTE | 2018-10-17 20:35 | PN ---
Progress Note (short form) - Note Progress Note: Patient seen and examined States she is feeling fine ---> but always states this Temp down Good response to blood and neupogen ( granix) Has nodule abdominal wall and VRE urine On antibiotics per ID Last Vital Signs Temp Pulse Resp BP Pulse Ox 98.2 F 67 20 147/60 95 10/17/18 18:00 10/17/18 18:00 10/17/18 18:00 10/17/18 18:00 10/17/18 09:00 Lungs -clear Cor-RSR Abd Nodule with surrounding erythema - perhaps less intense Ext-neg CBC, BMP 10/17/18 05:00 10/17/18 05:00 Current Medications Generic Name Dose Route Start Last Admin Trade Name Freq PRN Reason Stop Dose Admin Acetaminophen 650 mg 10/13/18 22:03 Tylenol - PO Q6H PRN FEVER Allopurinol 300 mg 10/14/18 10:00 10/17/18 09:02 Zyloprim - PO 300 mg DAILY RYAN Administration Amlodipine Besylate 5 mg 10/14/18 10:00 10/17/18 09:02 Norvasc - PO 5 mg DAILY RYAN Administration Folic Acid 1 mg 10/14/18 10:00 10/17/18 09:02 Folic Acid - PO 1 mg DAILY RYAN Administration Daptomycin 350 mg/ Sodium 50 mls @ 100 mls/hr 10/17/18 15:00 10/17/18 15:33 Chloride IVPB 100 mls/hr DAILY@1500 RYAN Administration Protocol Lorazepam 0.5 mg 10/16/18 17:57 Ativan - PO Q12H PRN ANXIETY Olanzapine 5 mg 10/14/18 10:00 10/17/18 09:02 Zyprexa - PO 5 mg DAILY RYAN Administration Pantoprazole Sodium 20 mg 10/14/18 10:00 10/17/18 09:02 Protonix - PO 20 mg DAILY RYAN Administration Tbo-Filgrastim 300 mcg 10/14/18 20:00 10/17/18 12:00 Granix - SQ 300 mcg DAILY RYAN Administration s Impression: CLL Cellulitis UTI-VRE Pancytopenia- improved s/p transfusion and neupogen D/c neupogen Hepatitis conversion is real Was hepatitis B core antibody negative and now core antibody positive Awaiting insurance clearance for levumidine - - entecavir was too costly.
[2018-10-18] MEDS ORDERED: PT OWN MED DRAWER 7, Y5N ONE (10:50)
[2018-10-18] MEDS: ALLOPURINOL 300 MG TABLET (FP) PO SCH (11:17)
[2018-10-18] MEDS: TBO-FILGRASTIM 300 MCG/0.5 ML DISP.SYRINGE SQ SCH (11:17)
[2018-10-18] MEDS: OLANZapine 5 MG TABLET PO SCH (11:17)
[2018-10-18] MEDS: FOLIC ACID 1 MG TABLET (FP) PO SCH (11:17)
[2018-10-18] MEDS: amLODIPine BESYLATE 5 MG TABLET (FP) PO SCH (11:17)
[2018-10-18] MEDS: PANTOPRAZOLE 20 MG TABLET (FP) PO SCH (11:17)
--- NOTE | 2018-10-18 11:18 | PN ---
Progress Note, Physician Chief Complaint: OOB to chair feeling well wants to go home - Current Medication List Current Medications: Active Medications Acetaminophen (Tylenol -) 650 mg PO Q6H PRN PRN Reason: FEVER Allopurinol (Zyloprim -) 300 mg PO DAILY [facility] Last Admin: 10/17/18 09:02 Dose: 300 mg Amlodipine Besylate (Norvasc -) 5 mg PO DAILY [facility] Last Admin: 10/17/18 09:02 Dose: 5 mg Folic Acid (Folic Acid -) 1 mg PO DAILY [facility] Last Admin: 10/17/18 09:02 Dose: 1 mg Daptomycin 350 mg/ Sodium (Chloride) 50 mls @ 100 mls/hr IVPB DAILY@1500 [facility]; Protocol Last Admin: 10/17/18 15:33 Dose: 100 mls/hr Lorazepam (Ativan -) 0.5 mg PO Q12H PRN PRN Reason: ANXIETY Olanzapine (Zyprexa -) 5 mg PO DAILY [facility] Last Admin: 10/17/18 09:02 Dose: 5 mg Pantoprazole Sodium (Protonix -) 20 mg PO DAILY [facility] Last Admin: 10/17/18 09:02 Dose: 20 mg Tbo-Filgrastim (Granix -) 300 mcg SQ DAILY [facility] Last Admin: 10/17/18 12:00 Dose: 300 mcg - Objective Vital Signs: Vital Signs Temperature 98.0 F 10/18/18 06:00 Pulse Rate 78 10/18/18 06:00 Respiratory Rate 20 10/18/18 06:00 Blood Pressure 151/79 10/18/18 06:00 O2 Sat by Pulse Oximetry (%) 96 10/17/18 21:00 Constitutional: Yes: No Distress, Calm Eyes: Yes: Conjunctiva Clear HENT: Yes: Atraumatic Neck: Yes: Supple Cardiovascular: Yes: Regular Rate and Rhythm Respiratory: Yes: CTA Bilaterally Gastrointestinal: Yes: Soft. No: Tenderness Genitourinary: No: Hematuria Extremities: No: Calf Tenderness, Cold, Cool Edema: Yes (bilateral below knees ) Integumentary: Yes: Rash (LUQ rash surronding a crusted skin lesion) Neurological: Yes: WNL, Alert, Oriented ...Motor Strength: WNL Psychiatric: Yes: WNL, Alert, Oriented. No: Agitated, Suicidal Ideation Labs: CBC, BMP 10/17/18 05:00 10/17/18 05:00 INR, PTT INR 1.11 (0.83-1.09) H 10/13/18 21:35 - ....Imaging Other: Report Reviewed Assessment/Plan h/o leukemia, chronic CLL, sepsis, pancytopenia (requiring recent pRBC transfusions), gallstones (requiring ERCP leading to hemorrhage and transfer to [facility]) and multiple episodes of confusion associated with her pancytopenia , and was recently diagnosed with hepatitis B, admitted with abdominal wall cellulitis and low WBC low Hg ARF; UTI. IV ATB per ID heme onc f/u, s/p sq neupogen and PRBC transfusions f/u labs and cultures legs edema: lasix x1 ivp; TEDs, legs elevation; check legs US falls pfx DVT pfx: ambulation; TEDs, SDcs; not on sq heparin b/o h/o low PLT and anemia, bleeding d/w pt and staff
[2018-10-18] MEDS: DAPTOMYCIN 350 MG in SODIUM CHLORIDE 50 ML IVPB SCH (14:54)
--- NOTE | 2018-10-18 15:56 | PN ---
Progress Note (short form) - Note Progress Note: doing well oob to chair no longer neutropenic wants to go home Vital Signs Period Temp Pulse Resp BP Sys/Borjas Pulse Ox Last 24 Hr 98 F-98.6 F 63-78 16-20 128-151/54-79 96 cor-rrr lungs clear abd soft,nt less erythema left flank, central nodule ext trace edema bilateral CBC, BMP 10/17/18 05:00 10/17/18 05:00 Microbiology 10/14/18 13:50 Blood - Peripheral Venous Blood Culture - Preliminary NO GROWTH OBTAINED AFTER 96 HOURS, INCUBATION TO CONTINUE FOR 1 DAYS. 10/14/18 13:47 Blood - Peripheral Venous Blood Culture - Preliminary NO GROWTH OBTAINED AFTER 96 HOURS, INCUBATION TO CONTINUE FOR 1 DAYS. 10/14/18 00:10 Urine - Urine Clean Catch Urine Culture - Final Vr Ec Faecium Enterococcus Faecalis a/p Admitted for anemia Celllulitis left flank- improved plan to switch to po augmentin in am with outpt dematology evaluation History of pancytopenia Recent Hep B diagnosis -awaiting insurance clearance for meds per oncology vancomycin allergy EBER-renal function unchanged d/w dr herrera no objection to d/c home in am Problem List - Problems (1) Cellulitis Code(s): L03.90 - CELLULITIS, UNSPECIFIED (2) Anemia Code(s): D64.9 - ANEMIA, UNSPECIFIED (3) Chronic lymphocytic leukemia Code(s): C91.90 - LYMPHOID LEUKEMIA, UNSPECIFIED NOT HAVING ACHIEVED REMISSION (4) Allergy to antibiotic Code(s): Z88.1 - ALLERGY STATUS TO OTHER ANTIBIOTIC AGENTS STATUS
[2018-10-18] MEDS ORDERED: FUROSEMIDE 40 MG/4 ML INJECTABLE VIAL IVPUSH ONE (18:00)
--- NOTE | 2018-10-18 20:07 | PN ---
Progress Note (short form) - Note Progress Note: Patient seen and examined Pancytopenia improved Cellulitis of abdominal wall and nodule improved with less erythema Per ID - change to p.o. antibiotics and for outpatient follow up. Last Vital Signs Temp Pulse Resp BP Pulse Ox 98 F 74 18 128/54 L 96 10/18/18 14:23 10/18/18 14:23 10/18/18 14:23 10/18/18 14:23 10/17/18 21:00 Lungs- clear Cor-RSR Abdominal wall - erythema improved CBC, BMP 10/17/18 05:00 10/17/18 05:00 Current Medications Generic Name Dose Route Start Last Admin Trade Name Freq PRN Reason Stop Dose Admin Acetaminophen 650 mg 10/13/18 22:03 Tylenol - PO Q6H PRN FEVER Allopurinol 300 mg 10/14/18 10:00 10/18/18 11:17 Zyloprim - PO 300 mg DAILY RYAN Administration Amlodipine Besylate 5 mg 10/14/18 10:00 10/18/18 11:17 Norvasc - PO 5 mg DAILY RYAN Administration Folic Acid 1 mg 10/14/18 10:00 10/18/18 11:17 Folic Acid - PO 1 mg DAILY RYAN Administration Daptomycin 350 mg/ Sodium 50 mls @ 100 mls/hr 10/17/18 15:00 10/18/18 14:54 Chloride IVPB 100 mls/hr DAILY@1500 RYAN Administration Protocol Lorazepam 0.5 mg 10/16/18 17:57 Ativan - PO Q12H PRN ANXIETY Olanzapine 5 mg 10/14/18 10:00 10/18/18 11:17 Zyprexa - PO 5 mg DAILY RYAN Administration Pantoprazole Sodium 20 mg 10/14/18 10:00 10/18/18 11:17 Protonix - PO 20 mg DAILY RYAN Administration Tbo-Filgrastim 300 mcg 10/14/18 20:00 10/18/18 11:17 Granix - SQ 300 mcg DAILY RYAN Administration Impression: CLL Cellulitis UTI pncytopenia Plans per ID outpatient f/u Hepatitis therapy when insurance come through.
[2018-10-19 07:04] LABS: BILIRUBIN,TOTAL 0.7 mg/dL (0.2-1); CALCIUM 9.2 mg/dL (8.5-10.1); CREATININE 1.2 mg/dL (0.55-1.3); POTASSIUM 3.4 mmol/L (3.5-5.1); TOT PROT 5.6 g/dl (6.4-8.2)
[2018-10-19 08:33] LABS: BASO % 0.4 % (0-2.0); EOS % 1.1 % (0-4.5); HEMATOCRIT 30.5 % (32.4-45.2); HEMOGLOBIN 9.9 GM/dL (10.7-15.3); LYMPH % 12.2 % (8-40); MCH 23.1 pg (25.7-33.7); MCHC 32.5 g/dl (32.0-36.0); MEAN CELL VOLUME 71.2 fl (80-96); MEAN PLT VOLUME 8.1 fl (7.5-11.1); MONO % 3.8 % (3.8-10.2); NEUT % 82.5 % (42.8-82.8); PLATELET COUNT 157 K/MM3 (134-434); RBC 4.28 M/mm3 (3.60-5.2); RDW 27.7 % (11.6-15.6)
[2018-10-19] MEDS ORDERED: PT OWN MED DRAWER 7, Y5N ONE ×2 (09:02→10:53)
[2018-10-19] MEDS: PANTOPRAZOLE 20 MG TABLET (FP) PO SCH (10:50)
[2018-10-19] MEDS: ALLOPURINOL 300 MG TABLET (FP) PO SCH (10:50)
[2018-10-19] MEDS: FOLIC ACID 1 MG TABLET (FP) PO SCH (10:50)
[2018-10-19] MEDS: amLODIPine BESYLATE 5 MG TABLET (FP) PO SCH (10:50)
[2018-10-19] MEDS: OLANZapine 5 MG TABLET PO SCH (10:50)
--- NOTE | 2018-10-19 10:52 | DS ---
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 No: Tenderness Renal/: No: Hematuria Musculoskeletal: No: Joint Stiffness, Joint Swelling Extremities: No: Cold, Cool Edema: Yes (both legs, less) Integumentary: Yes: Rash (LUQ Much better). No: Venous Stasis Changes Neurological: Yes: WNL, Alert, Oriented ...Motor Strength: WNL Psychiatric: Yes: WNL, Alert, Oriented. No: Agitated, Suicidal Ideation Labs: CBC, BMP 10/19/18 05:30 10/19/18 05:30 Discharge Summary Reason For Visit: CELLULITIS/TRANSFUSION-DEPENDENT ANEMIA Current Active Problems EBER (acute kidney injury) (Acute) Allergy to antibiotic (Acute) Anemia (Acute) Cellulitis, abdominal wall (Acute) Hepatitis B (Acute) Leukopenia (Acute) Procedures: Principal: 73 YOF CLL leukemia, renal stones, CRF UTis anemia admitted with abdominal wall cellulitis and anemia, low WBC Other Procedures: ATB per ID; sq neupogen and PRBC transfusions per heme onc; Hospital Course: im;proved with above; DC home on po ATB f/u as advised Condition: Improved - Instructions Diet, Activity, Other Instructions: f/u PCP GI heme onc and dermatology within 1-3 weeks CBC CMP labs in 1 week of DC RTER if worse or recurrent dermatology eval take meds as prescribed; good po hydration and probiotics while on antibiotics; falls PFX legs elevation, LS diet Referrals: Sabi Jordan [Primary Care Provider] - Corin Higgins MD [Staff Physician] - Alex Arceo MD., MD [Staff Physician] - Bisi Macias MD [Staff Physician] - Stu Garcia MD [Staff Physician] - Disposition: VNS/HOME HEALTH CARE - Home Medications Comprehensive Discharge Medication List: Ambulatory Orders Folic Acid 1 mg PO DAILY 03/31/18 Allopurinol [Zyloprim -] 300 mg PO DAILY #90 tablet 04/13/18 Acetaminophen [Tylenol .Regular Strength -] 650 mg PO Q6H PRN tablet 05/20/18 Amlodipine Besylate [Norvasc -] 5 mg PO DAILY #90 tablet 08/26/18 Olanzapine [Zyprexa -] 5 mg PO DAILY 10/08/18 Pantoprazole Sodium [Protonix -] 20 mg PO DAILY 10/08/18 Amox-Tr/K Cl [Augmentin - 875Mg Tablet] 1 tab PO BID 3 Days #6 tablet 10/19/18 Folic Acid - 1 mg PO DAILY tablet 10/19/18
[2018-10-19 11:39] LABS: WHITE BLOOD COUNT 31.1 K/mm3 (4.0-10.0)
[2018-10-19] MEDS: TBO-FILGRASTIM 300 MCG/0.5 ML DISP.SYRINGE SQ SCH (12:06)
[2018-10-19 12:26] LABS: ANISOCYTOSIS 1+; MACROCYTOSIS 0; OVALOCYTE 1+; TARGET CELLS 1+; TEAR DROP CELLS 1+
[2018-10-19] MEDS ORDERED: POTASSIUM CHLORIDE TABS 20 MEQ TABLET.ER (FP) PO ONE (13:00)
[2018-10-19 13:56] LABS: PLATELET ESTIMATE ADEQUATE
[2018-10-19] MEDS: DAPTOMYCIN 350 MG in SODIUM CHLORIDE 50 ML IVPB SCH (15:39)
--- NOTE | 2018-10-19 16:43 | PN ---
Progress Note (short form) - Note Progress Note: Patient seen and examined No complaints as usual Last Vital Signs Temp Pulse Resp BP Pulse Ox 98.4 F 75 20 120/56 L 98 10/19/18 15:19 10/19/18 15:19 10/19/18 15:19 10/19/18 15:19 10/19/18 09:00 HEENT: FELIBERTO, EOM Intact Cor: RSR, No murmurs, No gallops Lungs: Clear to P&A Abd: Soft, Normal bowel sounds, No organomegaly Ext:No significant edema Skin: abdominal wall nodule - no change , surrounding erythema less intense CBC, BMP 10/19/18 05:30 10/19/18 05:30 Current Medications Generic Name Dose Route Start Last Admin Trade Name Eloise PRN Reason Stop Dose Admin Acetaminophen 650 mg 10/13/18 22:03 Tylenol - PO Q6H PRN FEVER Allopurinol 300 mg 10/14/18 10:00 10/19/18 10:50 Zyloprim - PO 300 mg DAILY RYAN Administration Amlodipine Besylate 5 mg 10/14/18 10:00 10/19/18 10:50 Norvasc - PO 5 mg DAILY RYAN Administration Folic Acid 1 mg 10/14/18 10:00 10/19/18 10:50 Folic Acid - PO 1 mg DAILY RYAN Administration Daptomycin 350 mg/ Sodium 50 mls @ 100 mls/hr 10/17/18 15:00 10/19/18 15:39 Chloride IVPB 100 mls/hr DAILY@1500 RYAN Administration Protocol Lorazepam 0.5 mg 10/16/18 17:57 Ativan - PO Q12H PRN ANXIETY Olanzapine 5 mg 10/14/18 10:00 10/19/18 10:50 Zyprexa - PO 5 mg DAILY RYAN Administration Pantoprazole Sodium 20 mg 10/14/18 10:00 10/19/18 10:50 Protonix - PO 20 mg DAILY RYAN Administration Impression: CLL UTI Abdominal wall cellulitis Elevated WBC secondary to neupogen Plan: Outpatient follow up Biopsy of abdominal wall nodule Levimudine when insurance approves Discussed with daughter and with I.DRachael
[2018-10-20 07:15] LABS: BASO % 0.7 % (0-2.0); EOS % 0.7 % (0-4.5); HEMATOCRIT 28.8 % (32.4-45.2); HEMOGLOBIN 9.5 GM/dL (10.7-15.3); LYMPH % 8.9 % (8-40); MCH 23.3 pg (25.7-33.7); MCHC 32.9 g/dl (32.0-36.0); MEAN CELL VOLUME 70.8 fl (80-96); MEAN PLT VOLUME 8.5 fl (7.5-11.1); MONO % 2.5 % (3.8-10.2); NEUT % 87.2 % (42.8-82.8); PLATELET COUNT 143 K/MM3 (134-434); RBC 4.07 M/mm3 (3.60-5.2); RDW 28.8 % (11.6-15.6)
[2018-10-20 07:44] LABS: ALBUMIN 3.4 g/dl (3.4-5.0); BILIRUBIN,TOTAL 0.7 mg/dL (0.2-1); BLOOD UREA NITROGEN 22.2 mg/dL (7-18); CALCIUM 9.6 mg/dL (8.5-10.1); CREATININE 1.3 mg/dL (0.55-1.3); POTASSIUM 3.9 mmol/L (3.5-5.1)
[2018-10-20 08:12] LABS: WHITE BLOOD COUNT 48.1 K/mm3 (4.0-10.0)
[2018-10-20] MEDS: OLANZapine 5 MG TABLET PO SCH (09:03)
[2018-10-20] MEDS: FOLIC ACID 1 MG TABLET (FP) PO SCH (09:04)
[2018-10-20] MEDS: PANTOPRAZOLE 20 MG TABLET (FP) PO SCH (09:04)
[2018-10-20] MEDS: ALLOPURINOL 300 MG TABLET (FP) PO SCH (09:04)
[2018-10-20] MEDS: amLODIPine BESYLATE 5 MG TABLET (FP) PO SCH (09:04)
--- NOTE | 2018-10-20 12:39 | PN ---
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 - Current Medication List Current Medications: Active Medications Acetaminophen (Tylenol -) 650 mg PO Q6H PRN PRN Reason: FEVER Allopurinol (Zyloprim -) 300 mg PO DAILY [facility] Last Admin: 10/20/18 09:04 Dose: 300 mg Amlodipine Besylate (Norvasc -) 5 mg PO DAILY [facility] Last Admin: 10/20/18 09:04 Dose: 5 mg Folic Acid (Folic Acid -) 1 mg PO DAILY [facility] Last Admin: 10/20/18 09:04 Dose: 1 mg Daptomycin 350 mg/ Sodium (Chloride) 50 mls @ 100 mls/hr IVPB DAILY@1500 RYAN; Protocol Last Admin: 10/19/18 15:39 Dose: 100 mls/hr Lorazepam (Ativan -) 0.5 mg PO Q12H PRN PRN Reason: ANXIETY Olanzapine (Zyprexa -) 5 mg PO DAILY [facility] Last Admin: 10/20/18 09:03 Dose: 5 mg Pantoprazole Sodium (Protonix -) 20 mg PO DAILY [facility] Last Admin: 10/20/18 09:04 Dose: 20 mg - Objective Vital Signs: Vital Signs Temperature 98.1 F 10/20/18 10:00 Pulse Rate 86 10/20/18 10:00 Respiratory Rate 20 10/20/18 10:00 Blood Pressure 138/74 10/20/18 10:00 O2 Sat by Pulse Oximetry (%) 96 10/20/18 09:00 Constitutional: Yes: No Distress, Calm Eyes: Yes: Conjunctiva Clear HENT: Yes: Atraumatic Neck: Yes: Supple Cardiovascular: Yes: Regular Rate and Rhythm Respiratory: Yes: CTA Bilaterally Gastrointestinal: Yes: Soft. No: Tenderness Musculoskeletal: No: Joint Stiffness, Joint Swelling Extremities: No: Cold, Cool, Cyanosis Edema: Yes (1+ bilat better ) Peripheral Pulses WNL: Yes Integumentary: Yes: Rash (LUQ much better; central skin lesion, Mole? d/w pt and daughter to see derm dr Higgins outpt) Neurological: Yes: WNL, Alert, Oriented ...Motor Strength: WNL Psychiatric: Yes: WNL, Alert, Oriented. No: Agitated, Suicidal Ideation Labs: CBC, BMP 10/20/18 06:30 10/20/18 06:30 INR, PTT INR 1.11 (0.83-1.09) H 10/13/18 21:35 - ....Imaging Other: Report Reviewed Assessment/Plan h/o leukemia, chronic CLL, sepsis, pancytopenia (requiring recent pRBC transfusions), gallstones (requiring ERCP leading to hemorrhage and transfer to [facility]) and multiple episodes of confusion associated with her pancytopenia , and was recently diagnosed with hepatitis B, admitted with abdominal wall cellulitis and low WBC low Hg ARF; UTI. IV ATB per ID heme onc f/u, s/p sq neupogen and PRBC transfusions; now leukemoid reactions s/ p neupogen; check CBC today at 6 pm if WBC going down DC home with heme onc close f/u f/u labs and cultures legs edema: lasix x1 ivp; TEDs, legs elevation; legs US no DVT; falls pfx DVT pfx: ambulation; TEDs, SDcs; not on sq heparin b/o h/o low PLT and anemia, bleeding also will need dermatology eval outpt for LUQ skin lesion d/w pt and staff, d/w CM d/w daughter DC Planning with SABINA, f/u as advised
[2018-10-20 13:30] LABS: ANISOCYTOSIS 2+; MACROCYTOSIS 1+; OVALOCYTE 2+; PLATELET ESTIMATE DECREASED; TARGET CELLS 2+; TEAR DROP CELLS 1+
[2018-10-20] MEDS: DAPTOMYCIN 350 MG in SODIUM CHLORIDE 50 ML IVPB SCH (14:56)
[2018-10-20 14:57] VITALS: BMI 24.3
[2018-10-20 20:26] LABS: HEMATOCRIT 27.8 % (32.4-45.2); HEMOGLOBIN 9.3 GM/dL (10.7-15.3); MCH 23.7 pg (25.7-33.7); MCHC 33.3 g/dl (32.0-36.0); MEAN CELL VOLUME 71.1 fl (80-96); MEAN PLT VOLUME 8.6 fl (7.5-11.1); PLATELET COUNT 129 K/MM3 (134-434); RBC 3.91 M/mm3 (3.60-5.2); RDW 29.2 % (11.6-15.6); WHITE BLOOD COUNT 26.7 K/mm3 (4.0-10.0)
[2018-10-21 06:48] LABS: BASO % 0.7 % (0-2.0); EOS % 1.9 % (0-4.5); HEMATOCRIT 27.1 % (32.4-45.2); HEMOGLOBIN 8.9 GM/dL (10.7-15.3); LYMPH % 14.7 % (8-40); MCH 23.8 pg (25.7-33.7); MCHC 32.7 g/dl (32.0-36.0); MEAN CELL VOLUME 72.9 fl (80-96); MEAN PLT VOLUME 8.7 fl (7.5-11.1); MONO % 2.4 % (3.8-10.2); NEUT % 80.3 % (42.8-82.8); PLATELET COUNT 113 K/MM3 (134-434); RBC 3.72 M/mm3 (3.60-5.2); RDW 27.5 % (11.6-15.6); WHITE BLOOD COUNT 12.5 K/mm3 (4.0-10.0)
[2018-10-21 07:09] LABS: ALBUMIN 2.9 g/dl (3.4-5.0); BILIRUBIN,TOTAL 0.6 mg/dL (0.2-1); BLOOD UREA NITROGEN 28.6 mg/dL (7-18); CALCIUM 9.3 mg/dL (8.5-10.1); CREATININE 1.2 mg/dL (0.55-1.3); POTASSIUM 4.1 mmol/L (3.5-5.1); TOT PROT 5.3 g/dl (6.4-8.2)
[2018-10-21] MEDS: OLANZapine 5 MG TABLET PO SCH (09:05)
[2018-10-21] MEDS: PANTOPRAZOLE 20 MG TABLET (FP) PO SCH (09:05)
[2018-10-21] MEDS: amLODIPine BESYLATE 5 MG TABLET (FP) PO SCH (09:05)
[2018-10-21] MEDS: FOLIC ACID 1 MG TABLET (FP) PO SCH (09:05)
[2018-10-21] MEDS: ALLOPURINOL 300 MG TABLET (FP) PO SCH (09:05)
--- NOTE | 2018-10-21 09:49 | PN ---
Progress Note (short form) - Note Progress Note: Patient seen and examined Offers no complaints as usual Last Vital Signs Temp Pulse Resp BP Pulse Ox 97.3 F L 76 18 131/67 96 10/21/18 06:00 10/21/18 06:00 10/21/18 06:00 10/21/18 06:00 10/20/18 21:00 HEENT: FELIBERTO, EOM Intact Oropharynx: No thrush, No mucositis Cor: RSR, No murmurs, No gallops Lungs: Clear to P&A Abd: Soft, Normal bowel sounds, No organomegaly Ext:No significant edema Skin: No rashes, Integument intact Abdominal wall nodule less intense and marked decrease in surrounding erythema CBC, BMP 10/21/18 06:15 10/21/18 06:15 Current Medications Generic Name Dose Route Start Last Admin Trade Name Freq PRN Reason Stop Dose Admin Acetaminophen 650 mg 10/13/18 22:03 Tylenol - PO Q6H PRN FEVER Allopurinol 300 mg 10/14/18 10:00 10/21/18 09:05 Zyloprim - PO 300 mg DAILY RYAN Administration Amlodipine Besylate 5 mg 10/14/18 10:00 10/21/18 09:05 Norvasc - PO 5 mg DAILY RYAN Administration Folic Acid 1 mg 10/14/18 10:00 10/21/18 09:05 Folic Acid - PO 1 mg DAILY RYAN Administration Daptomycin 350 mg/ Sodium 50 mls @ 100 mls/hr 10/17/18 15:00 10/20/18 14:56 Chloride IVPB 100 mls/hr DAILY@1500 RYAN Administration Protocol Lorazepam 0.5 mg 10/16/18 17:57 10/20/18 16:03 Ativan - PO 0.5 mg Q12H PRN Administration ANXIETY Olanzapine 5 mg 10/14/18 10:00 10/21/18 09:05 Zyprexa - PO 5 mg DAILY RYAN Administration Pantoprazole Sodium 20 mg 10/14/18 10:00 10/21/18 09:05 Protonix - PO 20 mg DAILY RYAN Administration Impression: CLL Cellulitis abdominal wall Pancytopenia-s/p transfusion of blood and granix VRE --UTI Social service Conversion of hepatitis B core Ab to positivity Patients CBC is returning to baseline with fall in platelets, , WBC's and Hct. To monitor. Cellulitis - improving Nodule will needvto be biopsied as out patient Will ask 7W nurses to flush port as patient pulled out needle recently
[2018-10-21 10:17] LABS: ANISOCYTOSIS 1+; MACROCYTOSIS 0; OVALOCYTE 1+; PLATELET ESTIMATE DECREASED; TARGET CELLS 1+; TEAR DROP CELLS 2+
--- NOTE | 2018-10-21 13:10 | PN ---
Progress Note, Physician Chief Complaint: OOB to chair feels well wants to go home; repeat WBC 12 Hg 8.9 afebrile; to take po ATB x3days as ordered and f/u derm outpt for skin lesion biopsy see DC summary extremities edema resolved - Current Medication List Current Medications: Active Medications Acetaminophen (Tylenol -) 650 mg PO Q6H PRN PRN Reason: FEVER Allopurinol (Zyloprim -) 300 mg PO DAILY [facility] Last Admin: 10/21/18 09:05 Dose: 300 mg Amlodipine Besylate (Norvasc -) 5 mg PO DAILY [facility] Last Admin: 10/21/18 09:05 Dose: 5 mg Folic Acid (Folic Acid -) 1 mg PO DAILY [facility] Last Admin: 10/21/18 09:05 Dose: 1 mg Daptomycin 350 mg/ Sodium (Chloride) 50 mls @ 100 mls/hr IVPB DAILY@1500 RYAN; Protocol Last Admin: 10/20/18 14:56 Dose: 100 mls/hr Lorazepam (Ativan -) 0.5 mg PO Q12H PRN PRN Reason: ANXIETY Last Admin: 10/20/18 16:03 Dose: 0.5 mg Olanzapine (Zyprexa -) 5 mg PO DAILY [facility] Last Admin: 10/21/18 09:05 Dose: 5 mg Pantoprazole Sodium (Protonix -) 20 mg PO DAILY [facility] Last Admin: 10/21/18 09:05 Dose: 20 mg - Objective Vital Signs: Vital Signs Temperature 98.2 F 10/21/18 10:00 Pulse Rate 80 10/21/18 10:00 Respiratory Rate 18 10/21/18 10:00 Blood Pressure 135/78 10/21/18 10:00 O2 Sat by Pulse Oximetry (%) 95 10/21/18 09:00 Constitutional: Yes: No Distress, Calm Eyes: Yes: Conjunctiva Clear HENT: Yes: Atraumatic Neck: Yes: Supple Cardiovascular: Yes: Regular Rate and Rhythm Respiratory: Yes: CTA Bilaterally Gastrointestinal: Yes: Soft, Other (LUQ rash much better) Genitourinary: No: CVA Tenderness - Left, CVA Tenderness - Right, Hematuria Musculoskeletal: No: Joint Stiffness, Joint Swelling Extremities: No: Cold, Cool, Cyanosis Edema: No (resolved) Peripheral Pulses WNL: No Integumentary: No: Rash, Venous Stasis Changes Neurological: Yes: WNL, Alert, Oriented ...Motor Strength: WNL Psychiatric: Yes: WNL, Alert, Oriented. No: Agitated, Suicidal Ideation Labs: CBC, BMP 10/21/18 06:15 10/21/18 06:15 INR, PTT INR 1.11 (0.83-1.09) H 10/13/18 21:35 - ....Imaging Other: Report Reviewed Assessment/Plan h/o leukemia, chronic CLL, sepsis, pancytopenia (requiring recent pRBC transfusions), gallstones (requiring ERCP leading to hemorrhage and transfer to [facility]) and multiple episodes of confusion associated with her pancytopenia , and was recently diagnosed with hepatitis B, admitted with abdominal wall cellulitis and low WBC low Hg ARF; UTI. s/p IV ATB per ID cellulites resolved; s/p sq neupogen and PRBC transfusions; now leukemoid reactions s/p neupogen; WBC 12k (better today) to repeat labs and to f/u with heme onc dr Garcia outpt in 1-2 weeks; falls pfx d/w pt and daughter dermatology eval outpt for LUQ skin lesion d/w pt and staff DC home with SABINA GARCIA
[2018-10-21 16:39] VITALS: BP 130/68; PULSE 82; TEMP 97.8
== END 2018-10-21 17:36 | disposition home health service (06) | DRG 683 ==
LOC: JER 19:31 → JERBED 22:03 → J4S 10-14 23:17
PROVIDERS: ADMIT Internal Medicine; ATTEND Internal Medicine
PROC: 30233N1 Transfusion of Nonautologous Red Blood Cells into Peripheral Vein, Percutaneous Approach (ICD-10-PCS; principal; 2018-10-13)
DX: N17.9 Acute kidney failure, unspecified (principal); L03.311 Cellulitis of abdominal wall; N39.0 Urinary tract infection, site not specified; D61.818 Other pancytopenia; C91.10 Chronic lymphocytic leukemia of B-cell type not having achieved remission; L03.319 Cellulitis of trunk, unspecified; D64.9 Anemia, unspecified; D56.3 Thalassemia minor; I11.0 Hypertensive heart disease with heart failure; I50.9 Heart failure, unspecified; F41.9 Anxiety disorder, unspecified; B19.20 Unspecified viral hepatitis C without hepatic coma; R91.1 Solitary pulmonary nodule; K21.9 Gastro-esophageal reflux disease without esophagitis; F32.9 Major depressive disorder, single episode, unspecified; K57.30 Diverticulosis of large intestine without perforation or abscess without bleeding; M54.5 Low back pain; N20.0 Calculus of kidney; D69.6 Thrombocytopenia, unspecified; Z88.1 Allergy status to other antibiotic agents
CPT/HCPCS: 36415; 36430; 36511; 71046-TC-FY; 80048; 80053; 80061; 81003; 82550; 82728; 83540; 83550; 83721; 83735; 83880; 84100; 84443; 85025; 85027; 85044; 85610; 85730; 86850; 86900; 86901; 86922; 87040; 87086; 87186; 93005; 93010; 93970-TC; 99285-25; J0878; J1447; J7030; P9038; P9058

== ENCOUNTER 2018-11-01 16:13 | Day surgery (SDC) | payer OTHER, MEDICARE ==
--- NOTE | 2018-11-01 17:38 | HP ---
Admitting History and Physical - Past Medical History Cardiovascular: Yes: HTN Gastrointestinal: Yes: Diverticulosis (on CT scan), GI Bleed (02/13 post- sphincterotomy bleed) Hepatobiliary: Yes: Cholelithiasis, Choledocholithiasis (with cholangitis 02/13 requring ERCP & sphincterotomy complicated by a post-sphincterotomy bleed ) Renal/: Yes: Renal Calculi Heme/Onc: Yes: Anemia, Cancer (CLL- had bone marrow at [facility] recently), Other ( thalassemia) Psych: Yes: Anxiety Musculoskeletal: Yes: Chronic low back pain - Past Surgical History Past Surgical History: Yes: Tonsillectomy, Upper Endoscopy - Advance Directives Advance Directives: Yes: Health Care Proxy - Smoking History Smoking history: Never smoked Have you smoked in the past 12 months: No Aproximately how many cigarettes per day: 0 - Alcohol/Substance Use Hx Alcohol Use: No History of Substance Use: reports: None - Social History ADL: Independent 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 of Recent Travel: No Home Medications - Allergies Allergies/Adverse Reactions: Allergies Allergy/AdvReac Type Severity Reaction Status Date / Time vancomycin AdvReac Verified 10/13/18 20:13 - Home Medications Home Medications: Ambulatory Orders Allopurinol [Zyloprim -] 300 mg PO DAILY #90 tablet 04/13/18 Amlodipine Besylate [Norvasc -] 5 mg PO DAILY #90 tablet 08/26/18 Olanzapine [Zyprexa -] 10 mg PO DAILY 10/08/18 Pantoprazole Sodium [Protonix -] 20 mg PO DAILY 10/08/18 Folic Acid - 1 mg PO DAILY tablet 10/19/18 Lamivudine [Lamivudine Hbv] 100 mg PO DAILY 11/01/18 Family Disease History - Family Disease History Family Disease History: Other: Father (in his 80's pneumonia), Mother ( age 93 of CVA hemorrhage) Assessment/Plan 73 year old female admitted with anemia and neutropenia Afebrile Temp-99.8, 120/66 74 20 HEENT: FELIBERTO, EOM Intact Oropharynx: No thrush, No mucositis Neck: Supple Nodes: Without adenopathy Breasts: Without masses Cor: RSR, No murmurs, No gallops Lungs: Clear to P&A Abd: Soft, Normal bowel sounds, No organomegaly Ext:No significant edema Skin: excoriation , buttocks WBC-1700 ANC-850 Hct-20%
[2018-11-01] MEDS ORDERED: HALOPERIDOL 2 MG TABLET PO ONE (17:45)
--- NOTE | 2018-11-01 17:45 | PN ---
Progress Note (short form) - Note Progress Note: Patient seen and examined 73 year old with anemia and neutropenia. For transfusion therapy. For neupogen . BP--120/66 P-74 Temp--99.8 RR 18 HEENT: FELIBERTO, EOM Intact Oropharynx: No thrush, No mucositis Neck: Supple Nodes: Without adenopathy Breasts: Without masses Cor: RSR, No murmurs, No gallops Lungs: Clear to P&A Abd: Soft, Normal bowel sounds, No organomegaly Ext:No significant edema Skin: excoriated buttocks WBC-1700 ANC-850 Hct-20% Meds Allopurinol--300 Zyprexa-10 mg Protonix- 40 Amlodipine -5 Allergies- vancomycin Problems- Anemia - transfuse Neutropenia- neupogen agitation - prn haldol Temp-99.8- culture.
[2018-11-02 07:38] LABS: BASO % 2.3 % (0-2.0); EOS % 5.6 % (0-4.5); HEMATOCRIT 25.4 % (32.4-45.2); HEMOGLOBIN 8.5 GM/dL (10.7-15.3); LYMPH % 46.3 % (8-40); MCH 25.6 pg (25.7-33.7); MCHC 33.6 g/dl (32.0-36.0); MEAN CELL VOLUME 76.3 fl (80-96); MEAN PLT VOLUME 9.2 fl (7.5-11.1); MONO % 2.4 % (3.8-10.2); NEUT % 43.4 % (42.8-82.8); PLATELET COUNT 150 K/MM3 (134-434); RBC 3.33 M/mm3 (3.60-5.2); RDW 22.8 % (11.6-15.6)
[2018-11-02 08:11] LABS: WHITE BLOOD COUNT 1.2 K/mm3 (4.0-10.0)
--- NOTE | 2018-11-02 09:11 | PN ---
Progress Note, Physician Chief Complaint: pt admitted for blood transfusion h/o CLL anemia, pancytopenia; WBC 1.7 and Ht 20 per ONC note; awake alert NAD VSS afebrile today but had 99.8 yesterday (cultures pending); feels well no c/o wants to go home chart meds consults reviewed; pt was recenty admitted to with LUQ cellulitis s /p antibiotic treatments - Current Medication List Current Medications: Active Medications Tbo-Filgrastim (Granix -) 480 mcg SQ DAILY RYAN - Objective Vital Signs: Vital Signs Temperature 98.3 F 11/02/18 05:49 Pulse Rate 67 11/02/18 05:49 Respiratory Rate 20 11/02/18 05:49 Blood Pressure 117/48 L 11/02/18 05:49 O2 Sat by Pulse Oximetry (%) 95 11/01/18 21:00 Constitutional: Yes: No Distress, Calm Eyes: Yes: Conjunctiva Clear HENT: Yes: Atraumatic Neck: Yes: Supple Cardiovascular: Yes: Regular Rate and Rhythm Respiratory: Yes: CTA Bilaterally Gastrointestinal: Yes: Soft. No: Tenderness Genitourinary: No: CVA Tenderness - Left, CVA Tenderness - Right Musculoskeletal: No: Joint Stiffness, Joint Swelling Extremities: No: Cold, Cool, Cyanosis Edema: Yes (1+ pretibial bilat ) Integumentary: No: Rash, Venous Stasis Changes Wound/Incision: Yes: Other (small L pretibial open skin lesion pt said she scratched after a bug bite) Neurological: Yes: WNL, Alert, Oriented ...Motor Strength: WNL Psychiatric: Yes: WNL, Alert, Oriented. No: Agitated, Suicidal Ideation Labs: CBC, BMP 11/02/18 06:35 - ....Imaging Other: Report Reviewed Assessment/Plan 73 YOF CLL pancytopenia s/p multiple admissions for transfusions, also HTN, renal stones, UTI, hep B, admitted with anemia pancytopenia; s/p PRBC and granix check labs today f/u cultures low grade temp yesterday, afebrile today; s/p recent ATB for cellulitis bacitracin to [facility] d/w pt to avoid scratching and to use bacitracin at home if she has open skin ONC f/u falls pfx dw pt prognosis guarded thank you for consult
[2018-11-02] MEDS ORDERED: BACITRACIN 15 GM TUBE TOPICAL OINTMENT TP SCH (10:00)
[2018-11-02] MEDS ORDERED: FOLIC ACID 1 MG TABLET (FP) PO SCH (10:00)
[2018-11-02] MEDS ORDERED: TBO-FILGRASTIM 480 MCG/0.8 ML DISP.SYRIN SQ SCH (10:00)
[2018-11-02] MEDS ORDERED: amLODIPine BESYLATE 5 MG TABLET (FP) PO SCH (10:00)
[2018-11-02] MEDS ORDERED: ALLOPURINOL 300 MG TABLET (FP) PO SCH (10:00)
[2018-11-02] MEDS ORDERED: LAMIVUDINE 100 MG PO SCH (10:00)
[2018-11-02] MEDS ORDERED: PANTOPRAZOLE 40 MG TABLET (FP) PO SCH (10:00)
[2018-11-02 10:46] LABS: ANISOCYTOSIS 2+; MACROCYTOSIS 0; PLATELET ESTIMATE NORMAL
[2018-11-02 15:10] VITALS: BP 148/71; PULSE 77; TEMP 98.9
[2018-11-02 18:40] LABS: BASO % 0.8 % (0-2.0); EOS % 5.1 % (0-4.5); HEMATOCRIT 35.8 % (32.4-45.2); HEMOGLOBIN 11.8 GM/dL (10.7-15.3); LYMPH % 32.8 % (8-40); MCH 26.1 pg (25.7-33.7); MCHC 32.8 g/dl (32.0-36.0); MEAN CELL VOLUME 79.5 fl (80-96); MEAN PLT VOLUME 10.4 fl (7.5-11.1); MONO % 2.2 % (3.8-10.2); NEUT % 59.1 % (42.8-82.8); PLATELET COUNT 184 K/MM3 (134-434); RDW 22.1 % (11.6-15.6); WHITE BLOOD COUNT 2.5 K/mm3 (4.0-10.0)
--- NOTE | 2018-11-02 18:42 | PN ---
Progress Note (short form) - Note Progress Note: Patient seen and examined Did not receive neupogen on 11/01. Received 11/02 and will give additional injection on 11/03. Received 3 units of packed cell. Tolerated well. Last Vital Signs Temp Pulse Resp BP Pulse Ox 98.9 F 77 18 148/71 95 11/02/18 15:09 11/02/18 15:09 11/02/18 15:09 11/02/18 15:11/02/18 09:00 HEENT: FELIBERTO, EOM Intact Oropharynx: No thrush, No mucositis Cor: RSR, No murmurs, No gallops Lungs: Clear to P&A Abd: Soft, Normal bowel sounds, No organomegaly Ext:No significant edema Current Medications Generic Name Dose Route Start Last Admin Trade Name Freq PRN Reason Stop Dose Admin Allopurinol 300 mg 11/02/18 10:00 11/02/18 10:56 Zyloprim - PO 300 mg DAILY RYAN Administration Amlodipine Besylate 2.5 mg 11/02/18 10:00 11/02/18 10:56 Norvasc - PO 2.5 mg DAILY RYAN Administration Bacitracin 1 applic 11/02/18 10:00 11/02/18 10:57 Bacitracin - TP 1 applic BID RYAN Administration Folic Acid 1 mg 11/02/18 10:00 11/02/18 10:56 Folic Acid - PO 1 mg DAILY RYAN Administration Non-Formulary Medication 100 mg 11/02/18 10:00 Lamivudine [Lamivudine Hbv] PO DAILY RYAN Pantoprazole Sodium 20 mg 11/02/18 10:00 11/02/18 10:56 Protonix - PO 20 mg DAILY RYAN Administration Tbo-Filgrastim 480 mcg 11/02/18 10:00 11/02/18 10:58 Granix - SQ 480 mcg DAILY RYAN Administration Impression CLL Anemia s/P 3 units of packed cells s/p neupogen x 1 For additional neupogen on 11/03.
[2018-11-02 20:42] LABS: ANISOCYTOSIS 3+; MACROCYTOSIS 1+; OVALOCYTE 2+
[2018-11-02 20:43] LABS: PLATELET ESTIMATE ADEQUATE
== END 2018-11-02 20:11 | disposition home or self-care (01) ==
LOC: JBLOOD 16:13 → J7W 16:14 → JBLOOD 11-02 20:11
PROVIDERS: ATTEND Internal Medicine Hematology & Oncology
PROC: 30233N1 Transfusion of Nonautologous Red Blood Cells into Peripheral Vein, Percutaneous Approach (ICD-10-PCS; principal; 2018-11-01)
PROC: 3E013GC Introduction of Other Therapeutic Substance into Subcutaneous Tissue, Percutaneous Approach (ICD-10-PCS; 2018-11-01)
DX: C91.10 Chronic lymphocytic leukemia of B-cell type not having achieved remission (principal); D64.9 Anemia, unspecified; D70.9 Neutropenia, unspecified
CPT/HCPCS: 36415; 36430; 36511; 85025; 86850; 86900; 86901; 86922; 87040; 87086; 87186; J1447; P9038; P9058

== ENCOUNTER 2018-11-03 09:24 | Day surgery (SDC) | payer OTHER, MEDICARE ==
[2018-11-03] MEDS ORDERED: TBO-FILGRASTIM 480 MCG/0.8 ML DISP.SYRIN SQ ONE (09:30)
[2018-11-03 15:23] VITALS: BP 131/66; PULSE 74; TEMP 98.6
== END 2018-11-03 15:40 | disposition home or self-care (01) ==
LOC: JONCCHEMO 09:24 → J7W 15:10 → JONCCHEMO 15:40
PROVIDERS: ATTEND Internal Medicine Hematology & Oncology
PROC: 3E013GC Introduction of Other Therapeutic Substance into Subcutaneous Tissue, Percutaneous Approach (ICD-10-PCS; principal; 2018-11-03)
DX: C91.10 Chronic lymphocytic leukemia of B-cell type not having achieved remission (principal); Z76.89 Persons encountering health services in other specified circumstances
CPT/HCPCS: 96372; J1447

== ENCOUNTER 2018-11-10 10:16 | Day surgery (SDC) | payer OTHER, MEDICARE ==
[2018-11-10] MEDS ORDERED: TBO-FILGRASTIM 300 MCG/0.5 ML DISP.SYRINGE SQ ONE (11:00)
[2018-11-10 16:35] VITALS: BP 136/67; PULSE 73; TEMP 98.2
== END 2018-11-10 11:05 | disposition home or self-care (01) ==
LOC: JONCCHEMO 10:16 → J7W 10:30 → JONCCHEMO 11:05
PROVIDERS: ATTEND Internal Medicine Hematology & Oncology
PROC: 3E013GC Introduction of Other Therapeutic Substance into Subcutaneous Tissue, Percutaneous Approach (ICD-10-PCS; principal; 2018-11-10)
DX: C91.10 Chronic lymphocytic leukemia of B-cell type not having achieved remission (principal); Z76.89 Persons encountering health services in other specified circumstances
CPT/HCPCS: 96372; J1447

== ENCOUNTER 2018-11-21 08:08 | Inpatient (IN) | payer OTHER, MEDICARE ==
--- NOTE | 2018-11-21 09:02 | PDOC ---
History of Present Illness - General Chief Complaint: Altered Mental Status Stated Complaint: ALTERED MENTAL Time Seen by Provider: 11/21/18 08:12 History Source: Patient, Family (daughter) - History of Present Illness Initial Comments: 73 y/o/f wit PMHx of Hep B, CLL, pancytopenia, GI bleed, HTN, and recent UTI here for confusion. Patient lives at home alone and is brought in by her daughter for worsening confusion. As per the daughter the patient has been confused for the last few days, worse today. At baseline she is AAOx3. Today when she woke up she did not know the date but did know where she was and her own name. Daughter is concerned about any infectious process or anemia. She was started on Lamivudine by Dr. Garcia 3 weeks ago for Hep B but has no other new medications. Patient does not complain of any pain or other complaints. On interview patient is AAOx2, she is unsure of the date. Patient had a bowel movement yesterday. She denies any N/V/D, fever, cough, dysuria. Patient does not smoke, drink, or use any other drugs. She is allergic to Vancomycin. Patient denies any recent falls. Past History - Travel Traveled outside of the country in the last 30 days: No - Past Medical History Allergies/Adverse Reactions: Allergies Allergy/AdvReac Type Severity Reaction Status Date / Time vancomycin AdvReac Verified 11/21/18 08:15 Home Medications: Ambulatory Orders Allopurinol [Zyloprim -] 300 mg PO DAILY #90 tablet 04/13/18 Amlodipine Besylate [Norvasc -] 5 mg PO DAILY #90 tablet 08/26/18 Olanzapine [Zyprexa -] 10 mg PO DAILY 10/08/18 Pantoprazole Sodium [Protonix -] 20 mg PO DAILY 10/08/18 Folic Acid - 1 mg PO DAILY tablet 10/19/18 Lamivudine [Lamivudine Hbv] 100 mg PO DAILY 11/01/18 Anemia: Yes Asthma: No Cancer: (Yes; CLL 2013) Cardiac Disorders: (CHF) CVA: No COPD: No CHF: Yes Dementia: No Diabetes: No GI Disorders: Yes (GERD, gallstones, diverticulosis, GIB) Disorders: Yes (UTIs, VRE bacteremia, large kidney stones) HTN: Yes Hypercholesterolemia: No Liver Disease: No Psychiatric Problems: Yes (possibe dementia) Seizures: No Thyroid Disease: No - Surgical History Abdominal Surgery: No Appendectomy: No Cardiac Surgery: No Cholecystectomy: No Lung Surgery: No Neurologic Surgery: No Orthopedic Surgery: No - Immunization History Immunization Up to Date: Yes - Suicide/Smoking/Psychosocial Hx Smoking Status: No Smoking History: Never smoked Have you smoked in the past 12 months: No Number of Cigarettes Smoked Daily: 0 Information on smoking cessation initiated: No Hx Alcohol Use: No Drug/Substance Use Hx: No Substance Use Type: None Hx Substance Use Treatment: No Review of Systems - Review of Systems Able to Perform ROS?: Yes Constitutional: Yes: Other (confusion) HEENTM: No: Nose Congestion Respiratory: No: Cough Cardiac (ROS): No: Chest Pain ABD/GI: No: Constipated, Diarrhea, Nausea : No: Burning, Dysuria Neurological: No: Headache Hematologic/Lymphatic: Yes: Anemia *Physical Exam - Vital Signs Last Vital Signs Temp Pulse Resp BP Pulse Ox 98.4 F 74 18 148/74 98 11/21/18 08:12 11/21/18 08:12 11/21/18 08:12 11/21/18 08:12 11/21/18 08:12 - Physical Exam General Appearance: Yes: Thin HEENT: negative: Nasal Congestion Neck: positive: Normal Thyroid, Supple Respiratory/Chest: positive: Lungs Clear, Normal Breath Sounds. negative: Accessory Muscle Use, Rales, Rhonchi Cardiovascular: positive: Regular Rhythm, Regular Rate, S1, S2 Gastrointestinal/Abdominal: positive: Soft. negative: Tender, Tenderness Extremity: positive: Normal Capillary Refill, Swelling (2+ non pitting edema of b/l lower extremities) Integumentary: positive: Dry Neurologic: positive: supervisor type photography II-XII NML intact, Alert, Motor Strength 5/5, Finger to Nose, Confused (AAO x2, does not know date) Heart Score/ECG Review #1 ECG reviewed & interpreted by me at: 09:17 General ECG Interpretation: Sinus Rhythm Vent rate - 74 bpm GA interval - 158 ms QRS duration - 68 ms QT/QTc 390/432 ms P-R-T axes 53 -31 25 Sinus rhythm no acute ischemic changes, poor baseline, will repeat. ED Treatment Course - LABORATORY CBC & Chemistry Diagram: 11/21/18 09:30 11/21/18 08:53 - RADIOLOGY Radiology Studies Ordered: CXR PA and lateral CT head w/o contrast 11/21/18 09:27 Medical Decision Making - Medical Decision Making 73 y/o/f wit PMHx of Hep B, CLL, pancytopenia, GI bleed, HTN, and recent UTI here for worsening confusion for the last 3 days. Patient AAOx2, confused about date. Physical exam - 2+ non pitting edema of b/l lower extremities, otherwise unremarkable. Ordered CBC, CMP, UA, Urine culture, BGM, Ammonia levels to r/u anemia, hypoglycemia, and any infectious processes. CXR r/u pneumonia, and CT head w/o contrast EKG - normal sinus rhythm, unremarkable CXR and CT negative for acute pathology. CBC shows WBC of 1.6 UA positive for UTI Spoke with Dr. Garcia, patient's Heme/Onc doctor, recommends admission for IV antibiotics due to history of past ESBL UTI, ID consult, and Granix 300mg to help improve white blood cell count. Will speak with Dr. Jordan, patients PMD. 11/21/18 12:[address] Jordan. Dr. Garcia aware of patient. Pt aware they are staying in facility for IV abx and further evaluation. Daughter noted that the patient is nervous, however patient states she is fine and will let us know if she has worsening anxiety. 11/21/18 13:05 Ertapenum 1gm IV ordered for UTI. *DC/Admit/Observation/Transfer Diagnosis at time of Disposition: UTI (urinary tract infection) Qualifiers: Urinary tract infection type: site unspecified Hematuria presence: with hematuria Qualified Code(s): N39.0 - Urinary tract infection, site not specified Leukopenia Qualifiers: Leukopenia type: unspecified Qualified Code(s): D72.819 - Decreased white blood cell count, unspecified - Discharge Dispostion Condition at time of disposition: Guarded Decision to Admit order: Yes - Referrals - Patient Instructions - Post Discharge Activity
[2018-11-21 09:28] LABS: EPI CELLS 3.6 /HPF (0-5/HPF); HYALINE CASTS 7 /lpf (0-8); PH,URINE 5.5 (5.0-8.0); URINE APPEARANCE TURBID; URINE BACTERIA 5095.9 /hpf (NEGATIVE); URINE BILIRUBIN NEGATIVE (NEGATIVE); URINE COLOR YELLOW; URINE GLUCOSE (UA) NEGATIVE (NEGATIVE); URINE KETONE NEGATIVE (NEGATIVE); URINE LEUK ESTERASE 3+ (NEGATIVE); URINE NITRITE POSITIVE (NEGATIVE); URINE PROTEIN 1+ (NEGATIVE); URINE RBC 31 /hpf (0-4); URINE UROBILINOGEN 0.2 mg/dL (0.2-1.0); URINE WBC 314 /hpf (0-5)
[2018-11-21 09:49] LABS: HEMOGLOBIN 10.4 GM/dL (10.7-15.3)
[2018-11-21 09:54] LABS: HEMATOCRIT 31.2 % (32.4-45.2); MCHC 33.4 g/dl (32.0-36.0); MEAN CELL VOLUME 78.1 fl (80-96); RDW 24.1 % (11.6-15.6)
[2018-11-21 10:05] LABS: WHITE BLOOD COUNT 1.6 K/mm3 (4.0-10.0)
[2018-11-21 10:14] LABS: ALBUMIN 3.6 g/dl (3.4-5.0); BILIRUBIN,TOTAL 1.4 mg/dL (0.2-1); BLOOD UREA NITROGEN 27.2 mg/dL (7-18); CALCIUM 9.6 mg/dL (8.5-10.1); CREATININE 1.1 mg/dL (0.55-1.3); POTASSIUM 4.1 mmol/L (3.5-5.1); TOT PROT 6.3 g/dl (6.4-8.2)
--- NOTE | 2018-11-21 11:57 | PDOC ---
Documentation entered by Aren Espinosa SCRIBE, acting as scribe for Rich Sanders MD. Rich Sanders MD: This documentation has been prepared by the Jesús mayer Elijah, SCRIBE, under my direction and personally reviewed by me in its entirety. I confirm that the documentation accurately reflects all work, treatment, procedures, and medical decision making performed by me. Attending Attestation - Resident Resident Name: JorgeParmjitkianachristina Krystal - ED Attending Attestation I have performed the following: I have examined & evaluated the patient, The case was reviewed & discussed with the resident, I agree w/resident's findings & plan - HPI HPI: 11/21/18 11:37 Patient is a 73 year old female with a significant past medical history of Hep B , CLL, pancytopenia, GI bleed, HTN, and recent UTI who presents to the ED with Altered Mental Status lasting for x3 days. As per at bedside, the patient called the daughter saying that she was confused and wanted to go to the ED. At this time the patient reports being "fine." Allergies: Vancomycin PCP: Dr. Garcia - Physicial Exam PE: 11/21/18 11:39 Vitals: Triage vital signs reviewed General Appearance: No acute distress, well nourished, well developed Head: Atraumatic Neck: Supple; No nuchal rigidity Chest Wall: Nontender Cardiac: Regular rate and rhythm, no murmurs, no rubs, no gallops Lungs: Clear to auscultation bilateral, good air movement bilaterally Abdomen: Soft, nondistended, normal bowel sounds, nontender to palpation Genitourinary: Rectal: Exam deferred Extremities: Full range of motion to all extremities, no cyanosis, clubbing, or edema Skin: Warm and dry, no rashes or lesions, no rash, no petechiae Neuro: AOX3; Cranial Nerves 2-12 grossly intact, Strength intact to all extremities, Sensation intact to all extremities Psych: Normal mood, normal affect - Medical Decision Making 11/21/18 16:41 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 Case discussed with patient's oncologist. We'll admit to medicine for further management
[2018-11-21 11:59] LABS: ANISOCYTOSIS 1+; MACROCYTOSIS 0; OVALOCYTE 1+; PLATELET ESTIMATE DECREASED
[2018-11-21 12:09] LABS: MEAN PLT VOLUME 8.4 fl (7.5-11.1); PLATELET COUNT 80 K/MM3 (134-434)
--- NOTE | 2018-11-21 12:39 | HP ---
Admitting History and Physical - Primary Care Physician PCP: Sabi Jordan S - Admission Chief Complaint: changes MS History of Present Illness: 73 y/o/f wit PMHx of Hep B, CLL, pancytopenia, GI bleed, HTN, and recent UTIs here for confusion. Patient lives at home alone and is brought in by her daughter for worsening confusion. As per the daughter the patient has been confused for the last few days, worse today. At baseline she is AAOx3. Today when she woke up she did not know the date but did know where she was and her own name. Daughter is concerned about any infectious process or anemia. She was started on Lamivudine by Dr. Garcia 3 weeks ago for Hep B but has no other new medications. Patient does not complain of any pain or other complaints. On interview patient is AAOx2, she is unsure of the date. Patient had a bowel movement yesterday. She denies any N/V/D, fever, cough, dysuria. Patient does not smoke, drink, or use any other drugs. She is allergic to Vancomycin. Patient denies any recent falls. in ER received IVF and ATB and feels better now; daughter at bedside in ER History Source: Patient, Family Member, Medical Record Limitations to Obtaining History: No Limitations - Past Medical History Cardiovascular: Yes: HTN Gastrointestinal: Yes: Diverticulosis (on CT scan), GI Bleed (02/13 post- sphincterotomy bleed) Hepatobiliary: Yes: Cholelithiasis, Choledocholithiasis (with cholangitis 02/13 requring ERCP & sphincterotomy complicated by a post-sphincterotomy bleed ) Renal/: Yes: Renal Calculi Heme/Onc: Yes: Anemia, Cancer (CLL- had bone marrow at [facility] recently), Other ( thalassemia) Psych: Yes: Anxiety Musculoskeletal: Yes: Chronic low back pain - Past Surgical History Past Surgical History: Yes: Tonsillectomy, Upper Endoscopy - Smoking History Smoking history: Never smoked Have you smoked in the past 12 months: No Aproximately how many cigarettes per day: 0 - Alcohol/Substance Use Hx Alcohol Use: No History of Substance Use: reports: None - Social History Usual Living Arrangement: Yes: Alone ADL: Independent 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 of Recent Travel: No Home Medications - Allergies Allergies/Adverse Reactions: Allergies Allergy/AdvReac Type Severity Reaction Status Date / Time vancomycin AdvReac Verified 11/21/18 08:15 - Home Medications Home Medications: Ambulatory Orders Allopurinol [Zyloprim -] 300 mg PO DAILY #90 tablet 04/13/18 Amlodipine Besylate [Norvasc -] 5 mg PO DAILY #90 tablet 08/26/18 Olanzapine [Zyprexa -] 10 mg PO DAILY 10/08/18 Pantoprazole Sodium [Protonix -] 20 mg PO DAILY 10/08/18 Folic Acid - 1 mg PO DAILY tablet 10/19/18 Lamivudine [Lamivudine Hbv] 100 mg PO DAILY 11/01/18 Family Disease History - Family Disease History Family Disease History: Other: Father (in his 80's pneumonia), Mother ( age 93 of CVA hemorrhage) Review of Systems - Review of Systems Constitutional: denies: Chills, Fever, Lethargy Eyes: denies: Blurred Vision, Double Vision HENT: denies: Epistaxis Neck: denies: Stiffness, Tenderness Cardiovascular: denies: Chest Pain, Shortness of Breath Respiratory: denies: Cough, SOB Gastrointestinal: denies: Abdominal Pain Genitourinary: reports: Dysuria. denies: Flank Pain Musculoskeletal: denies: No Symptoms, Back Pain, Joint Pain Integumentary: denies: Bruising, Eczema, Erythema Neurological: denies: Headache, Seizure, Syncope Endocrine: denies: Unexplained Weight Gain, Unexplained Weight Loss Hematology/Lymphatic: denies: Easily Bruised, Excessive Bleeding Psychiatric: denies: Anxiety, Depression, Suicidal Physical Examination Vital Signs: Vital Signs Temperature 98.4 F 11/21/18 08:12 Pulse Rate 74 11/21/18 08:12 Respiratory Rate 18 11/21/18 08:12 Blood Pressure 148/74 11/21/18 08:12 O2 Sat by Pulse Oximetry (%) 98 11/21/18 08:12 Constitutional: Yes: No Distress, Calm Eyes: Yes: Conjunctiva Clear HENT: Yes: Atraumatic Neck: Yes: Supple Cardiovascular: Yes: Regular Rate and Rhythm Respiratory: Yes: CTA Bilaterally Gastrointestinal: Yes: Soft. No: Tenderness Renal/: No: CVA Tenderness - Left, CVA Tenderness - Right, Hematuria Extremities: No: Calf Tenderness, Cold, Cool, Cyanosis Edema: No Integumentary: No: Rash, Venous Stasis Changes Neurological: Yes: WNL, Alert, Oriented ...Motor Strength: WNL Psychiatric: Yes: WNL, Alert, Oriented. 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
[2018-11-21] MEDS ORDERED: ERTAPENEM SODIUM 1 GM in SODIUM CHLORIDE 50 ML IVPB ONE (12:51)
--- NOTE | 2018-11-21 12:52 | EKG ---
Test Reason : Blood Pressure : / mmHG Vent. Rate : 074 BPM Atrial Rate : 074 BPM P-R Int : 158 ms QRS Dur : 068 ms QT Int : 390 ms P-R-T Axes : 053 -31 025 degrees QTc Int : 432 ms SINUS RHYTHM BASELINE ARTIFACT LEFT AXIS DEVIATION CANNOT RULE OUT ANTERIOR INFARCT (CITED ON OR BEFORE 07-MAY-2018) ABNORMAL ECG WHEN COMPARED WITH ECG OF 13-OCT-2018 23:43, NO SIGNIFICANT CHANGE WAS FOUND Confirmed by VERONICA ESCOBEDO MD ([id number]) on 11/21/2018 12:51:55 PM Referred By: Confirmed By:VERONICA ESCOBEDO MD
[2018-11-21] MEDS ORDERED: ERTAPENEM SODIUM 1 GM VIAL ONE (13:32)
--- NOTE | 2018-11-21 18:04 | PN ---
Progress Note (short form) - Note Progress Note: ID consult dictated 73 yo female with CLL, pancytoopenia lives alone felt to be more ocnfused by her daughter and brought to the ED currently off rituxan treatment no fevers history of recurrent UTI she has a staghom calculus on the right and has refused intervention in the past r/o recurrent UTI CLL/pancytopoenia mental status now back at baseline most recent urine culture with citrobacter- would continue ertapenem will f/u cultures contact isolation ffor prior VRE d/w daughter at bedside Problem List - Problems (1) Altered mental state Code(s): R41.82 - ALTERED MENTAL STATUS, UNSPECIFIED Qualifiers: Altered mental status type: unspecified Qualified Code(s): R41.82 - Altered mental status, unspecified (2) UTI (urinary tract infection) Code(s): N39.0 - URINARY TRACT INFECTION, SITE NOT SPECIFIED Qualifiers: Urinary tract infection type: site unspecified Hematuria presence: with hematuria Qualified Code(s): N39.0 - Urinary tract infection, site not specified; R31.9 - Hematuria, unspecified (3) Pancytopenia Code(s): D61.818 - OTHER PANCYTOPENIA (4) Chronic lymphocytic leukemia Code(s): C91.90 - LYMPHOID LEUKEMIA, UNSPECIFIED NOT HAVING ACHIEVED REMISSION
--- NOTE | 2018-11-21 19:33 | CONS ---
INFECTIOUS DISEASE CONSULTATION DATE OF CONSULTATION: 11/21/2018 This is a 73-year-old woman. She has a history of CLL, pancytopenia, who lives alone. She is in the emergency room with her daughter who states that for the last 3 days, her mother was calling her more frequently, and she seemed to be confused. This morning, she called her daughter and said that she wanted to come to the emergency room. The daughter reports that mother has been calling and asking what to make for meals, what to do. She says overall she appears sort of more scattered and disorganized. She has had no fevers or chills. She is awake and alert at present, the mother, and she has no complaints. PAST MEDICAL HISTORY: Notable for CLL. She has pancytopenia. She gets intermittent GRANIX, last about 2 weeks ago. She has been on Rituxan which is currently on hold because she is now hepatitis B positive and was just started on Epivir. Her past medical history is also notable for hypertension, diverticulosis, GI bleed, cholelithiasis, choledocholithiasis with cholangitis requiring ERCP and sphincterotomy complicated by a post-sphincterotomy bleed. 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 SURGICAL HISTORY: Notable for tonsillectomy in the past. SOCIAL HISTORY: There is no history of cigarette use. She lives by herself. 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 There is no history of alcohol or substance use. ALLERGIES: She is allergic to VANCOMYCIN. MEDICATIONS AT HOME: Include allopurinol, amlodipine, Zyprexa, Protonix, folic acid, and lamivudine. FAMILY HISTORY: Notable for father who in his 80s from pneumonia and her mother at 93 of a CVA. REVIEW OF SYSTEMS: She denies cough, shortness of breath, diarrhea, dysuria, fevers, or chills. PHYSICAL EXAMINATION: General: She is awake and alert. Vital Signs: Temperature is 98.6. Pulse is 71. Blood pressure 142/68. Respiratory rate is 20. She is saturating 98% on room air. HEENT: She is normocephalic. Her eyes are anicteric. She has poor dentition. She has no thrush. Neck: Supple. She has no meningeal signs. Lungs: Clear to auscultation. Heart: Regular rate and rhythm. She has a 2/6 systolic ejection murmur. Abdomen: Soft, nontender. She has no CVA or suprapubic pain. She had a small left flank subcutaneous mass with erythema, that was treated on a recent admission in September, that appears essentially resolved. Extremities: Notable for 1+ edema and some mild erythema. LABORATORY DATA: Labs are notable for a white count of 1.6, hemoglobin 10.4, platelets are 80,000. Her ANC is roughly 960. Her BUN is 27 and creatinine 1.1. Total bilirubin of 1.4. LFTs are normal. Urinalysis shows 3+ leukocyte esterase with 314 white cells, and most recent urine culture from November 01 shows citrobacter. The daughter reports that since her last admission in September, she has not been on any antibiotics. She had a chest x-ray done as well done in the emergency room, that showed no acute infiltrate. 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 In summary, this is a 73-year-old woman admitted with: 1. Change in mental status, noted to be more confused by her daughter, brought to the emergency room. Currently, she is at her baseline. She has received some fluids and antibiotics, and cultures have been sent. She has no fevers, but does have this history of recurrent urinary tract infection. Given this staghorn calculus serves as a nidus. I would rule out recurrent urinary tract infection. She has no evidence of pneumonia. She has no evidence of an intraabdominal process. With most recent culture with citrobacter, would continue the ertapenem and follow up the cultures. She needs to stay in contact isolation for prior vancomycin-resistant enterococci. 2. History of pancytopenia secondary to chemotherapy, management per Hematology. 3. History of chronic lymphocytic leukemia and hepatitis B for which she is now on lamivudine. I spoke with the daughter at length at the bedside. LUIS ALBERTO HURLEY M.D. [id number]
[2018-11-21 22:29] VITALS: BMI 23.7
[2018-11-22 08:55] LABS: ALBUMIN 3.8 g/dl (3.4-5.0); BILIRUBIN,TOTAL 2.1 mg/dL (0.2-1); BLOOD UREA NITROGEN 20.7 mg/dL (7-18); CALCIUM 10.1 mg/dL (8.5-10.1); CREATININE 1.1 mg/dL (0.55-1.3); POTASSIUM 4.2 mmol/L (3.5-5.1); TOT PROT 6.5 g/dl (6.4-8.2)
--- NOTE | 2018-11-22 09:09 | PN ---
Progress Note, Physician Chief Complaint: OOB to chair better today afebrile - Current Medication List Current Medications: Active Medications Allopurinol (Zyloprim -) 300 mg PO DAILY RYAN Amlodipine Besylate (Norvasc -) 5 mg PO DAILY RYAN Folic Acid (Folic Acid -) 1 mg PO DAILY RYAN Ertapenem 1 gm/ Sodium (Chloride) 50 mls @ 100 mls/hr IVPB DAILY RYAN Non-Formulary Medication (Lamivudine [Lamivudine Hbv]) 100 mg PO DAILY RYAN Olanzapine (Zyprexa -) 10 mg PO DAILY RYAN Pantoprazole Sodium (Protonix -) 20 mg PO DAILY RYAN - Objective Vital Signs: Vital Signs Temperature 98.8 F 11/21/18 22:23 Pulse Rate 86 11/21/18 22:23 Respiratory Rate 18 11/21/18 22:23 Blood Pressure 160/80 11/21/18 22:23 O2 Sat by Pulse Oximetry (%) 97 11/21/18 22:13 Constitutional: Yes: No Distress, Calm Eyes: Yes: Conjunctiva Clear HENT: Yes: Atraumatic Neck: Yes: Supple Cardiovascular: Yes: Regular Rate and Rhythm Respiratory: Yes: CTA Bilaterally Gastrointestinal: Yes: Soft. No: Tenderness Genitourinary: No: CVA Tenderness - Left, CVA Tenderness - Right, Hematuria Musculoskeletal: No: Joint Stiffness, Joint Swelling Extremities: No: Cold, Cool, Cyanosis Edema: No Integumentary: No: Rash, Venous Stasis Changes Neurological: Yes: WNL, Alert, Oriented ...Motor Strength: WNL Psychiatric: Yes: WNL, Alert, Oriented. 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
[2018-11-22 09:12] LABS: BASO % 1.3 % (0-2.0); EOS % 3.5 % (0-4.5); HEMATOCRIT 31.7 % (32.4-45.2); HEMOGLOBIN 10.6 GM/dL (10.7-15.3); LYMPH % 40.8 % (8-40); MCH 25.6 pg (25.7-33.7); MCHC 33.4 g/dl (32.0-36.0); MEAN CELL VOLUME 76.8 fl (80-96); MEAN PLT VOLUME 8.2 fl (7.5-11.1); MONO % 1.3 % (3.8-10.2); NEUT % 53.1 % (42.8-82.8); PLATELET COUNT 92 K/MM3 (134-434); RBC 4.12 M/mm3 (3.60-5.2); RDW 23.4 % (11.6-15.6)
[2018-11-22 09:22] LABS: WHITE BLOOD COUNT 1.5 K/mm3 (4.0-10.0)
[2018-11-22] MEDS ORDERED: PT OWN MED DRAWER 7, Y5N ONE ×2 (09:48→09:57)
[2018-11-22] MEDS: ERTAPENEM SODIUM 1 GM in SODIUM CHLORIDE 50 ML IVPB SCH (09:53)
[2018-11-22] MEDS: FOLIC ACID 1 MG TABLET (FP) PO SCH (09:54)
[2018-11-22] MEDS: OLANZapine 5 MG TABLET PO SCH (09:55)
[2018-11-22] MEDS: ALLOPURINOL 300 MG TABLET (FP) PO SCH (09:55)
[2018-11-22] MEDS: amLODIPine BESYLATE 5 MG TABLET (FP) PO SCH (09:55)
[2018-11-22] MEDS: PANTOPRAZOLE 20 MG TABLET (FP) PO SCH (09:55)
--- NOTE | 2018-11-22 10:26 | CONSULT ---
Consultation: REQUESTING PROVIDER: Dr. Jordan CONSULT REQUEST: We have been asked to medically evaluate this patient for CLL anemia HISTORY OF PRESENT ILLNESS: 73 year old female with a history of hypertension, GI bleeding, chronic lymphocytic leukemia, hepatitis B, and frequent UTIs was brought in to the hospital for several days of worsening altered mental status, noticed by her daughter. Per daughter, it became acutely worse last night, prompting them to go to the emergency room. In the ED, patient was noted to by pancytopenic with an ANC of 800 and positive for a urinary tract infection. Patient is well known to Dr. Narayan, who has been managing patient for CLL most recently with rituxan. Currently not on rituxan. Currently, patient is alert to person and place but does not know the year. She reports no fevers, chills, chest pain, shortness of breath, nausea, vomiting, diarrhea, dysuria, polyuria or flank pain. No overnight events per nurse. Here recently with abdominal wall cellulitis and hepatitis B. Was started on lamivudine. Oncologic History Hx of CLL - s/p 4 cycles of rituxan (last dose 07/28/18) Allergies: vancomycin Family History: unclear at present time Surgeries: unclear at present time Smoking: Never Alcohol: rarely Drugs: none REVIEW OF SYSTEMS: CONSTITUTIONAL: Absent: fever, chills, diaphoresis, generalized weakness, malaise, loss of appetite, weight change HEENT: Absent: rhinorrhea, nasal congestion, throat pain, throat swelling, difficulty swallowing, mouth swelling, ear pain, eye pain, visual changes CARDIOVASCULAR: Absent: chest pain, syncope, palpitations, irregular heart rate, lightheadedness , peripheral edema RESPIRATORY: Absent: cough, shortness of breath, dyspnea with exertion, orthopnea, wheezing, stridor, hemoptysis GASTROINTESTINAL: Absent: abdominal pain, abdominal distension, nausea, vomiting, diarrhea, constipation, melena, hematochezia GENITOURINARY: Absent: dysuria, frequency, urgency, hesitancy, hematuria, flank pain, genital pain MUSCULOSKELETAL: Absent: myalgia, arthralgia, joint swelling, back pain, neck pain SKIN: Absent: rash, itching, pallor HEMATOLOGIC/IMMUNOLOGIC: Absent: easy bleeding, easy bruising, lymphadenopathy, frequent infections ENDOCRINE: Absent: unexplained weight gain, unexplained weight loss, heat intolerance, cold intolerance NEUROLOGIC: Absent: headache, focal weakness or paresthesias, dizziness, unsteady gait, seizure, mental status changes, bladder or bowel incontinence PSYCHIATRIC: Absent: anxiety, depression, suicidal or homicidal ideation, hallucinations. PHYSICAL EXAMINATION Vital Signs - 24 hr 11/21/18 11/21/18 11/21/18 12:30 12:36 22:00 Temperature 98.6 F 98.8 F Pulse Rate 86 Pulse Rate [ 72 71 Right Radial] Respiratory 18 23 H 18 Rate Blood Pressure 160/80 Blood Pressure 147/64 142/68 [Right Arm] O2 Sat by Pulse 95 98 Oximetry (%) 11/21/18 11/21/18 22:13 22:23 Temperature 98.8 F Pulse Rate 86 Pulse Rate [ Right Radial] Respiratory 18 Rate Blood Pressure 160/80 Blood Pressure [Right Arm] O2 Sat by Pulse 97 Oximetry (%) GENERAL: A&Ox2 (disoriented to time) HEAD: Normal with no signs of trauma. EYES: PERRL ENT:oropharynx clear without exudates NECK: No lymphadenopathy palpated CHEST: port noted on R superior chest wall BREAST: no nodules or masses palpated, normal breast exam LUNGS: CTA, no wheezes HEART: RRR, no murmurs ABDOMEN: Soft, nontender, nondistended MUSCULOSKELETAL: No CVA tenderness EXTREMITIES: b/l 1 + edema noted NEUROLOGICAL: No focal deficits PSYCHIATRIC: Slow to respond, minimal eye contact SKIN: No skin lesions noted Laboratory Results - last 24 hr 11/21/18 11/21/18 11/21/18 09:30 11:04 11:15 WBC RBC Hgb Hct MCV MCH MCHC RDW Plt Count 80 L D MPV 8.4 D Absolute Neuts (auto) Neutrophils % Neutrophils % (Manual) 57.6 Band Neutrophils % 1.0 Lymphocytes % Lymphocytes % (Manual) 31.3 Monocytes % Monocytes % (Manual) 2 L Eosinophils % Eosinophils % (Manual) 3.1 Basophils % Basophils % (Manual) 1.0 Myelocytes % (Man) 0 Promyelocytes % (Man) 0 Blast Cells % (Manual) 1 H D Nucleated RBC % 3 H Metamyelocytes 0 Hypochromia 0 Platelet Estimate Decreased Platelet Comment No clumping noted Polychromasia 1+ Poikilocytosis 1+ Anisocytosis 1+ Microcytosis 1+ Macrocytosis 0 Ovalocytes 1+ Schistocytes 1+ Sodium Potassium Chloride Carbon Dioxide Anion Gap BUN Creatinine Est GFR (CKD-EPI)AfAm Est GFR (CKD-EPI)NonAf POC Glucometer 91 Random Glucose Calcium Total Bilirubin AST ALT Alkaline Phosphatase Ammonia < 10.00 L Creatine Kinase Troponin I Total Protein Albumin 11/21/18 11/22/18 11/22/18 11:15 07:55 07:55 WBC 1.5 L* RBC 4.12 Hgb 10.6 L Hct 31.7 L MCV 76.8 L MCH 25.6 L MCHC 33.4 RDW 23.4 H Plt Count MPV Absolute Neuts (auto) 0.8 L Neutrophils % 53.1 Neutrophils % (Manual) Band Neutrophils % Lymphocytes % 40.8 H D Lymphocytes % (Manual) Monocytes % 1.3 L Monocytes % (Manual) Eosinophils % 3.5 Eosinophils % (Manual) Basophils % 1.3 Basophils % (Manual) Myelocytes % (Man) Promyelocytes % (Man) Blast Cells % (Manual) Nucleated RBC % 0 Metamyelocytes Hypochromia Platelet Estimate Platelet Comment Polychromasia Poikilocytosis Anisocytosis Microcytosis Macrocytosis Ovalocytes Schistocytes Sodium 146 H Potassium 4.2 Chloride 110 H Carbon Dioxide 29 Anion Gap 7 L BUN 20.7 H Creatinine 1.1 Est GFR (CKD-EPI)AfAm 57.68 Est GFR (CKD-EPI)NonAf 49.77 POC Glucometer Random Glucose 115 H Calcium 10.1 Total Bilirubin 2.1 H AST 18 ALT 15 Alkaline Phosphatase 87 Ammonia Creatine Kinase 34 Troponin I < 0.02 Total Protein 6.5 Albumin 3.8 Active Medications Generic Name Dose Route Start Last Admin Trade Name Freq PRN Reason Stop Dose Admin Allopurinol 300 mg 11/22/18 10:00 11/22/18 09:55 Zyloprim - PO 300 mg DAILY RYAN Administration Amlodipine Besylate 5 mg 11/22/18 10:00 11/22/18 09:55 Norvasc - PO 5 mg DAILY RYAN Administration Folic Acid 1 mg 11/22/18 10:00 11/22/18 09:54 Folic Acid - PO 1 mg DAILY RYAN Administration Ertapenem 1 gm/ Sodium 50 mls @ 100 mls/hr 11/22/18 10:00 11/22/18 09:53 Chloride IVPB 100 mls/hr DAILY RYAN Administration Non-Formulary Medication 100 mg 11/22/18 10:00 Lamivudine [Lamivudine Hbv] PO DAILY RYAN Olanzapine 10 mg 11/22/18 10:00 11/22/18 09:55 Zyprexa - PO 10 mg DAILY RYAN Administration Pantoprazole Sodium 20 mg 11/22/18 10:00 11/22/18 09:55 Protonix - PO 20 mg DAILY RYAN Administration Tbo-Filgrastim 300 mcg 11/22/18 09:57 Granix - SQ 11/22/18 09:58 ONCE ONE ASSESSMENT/PLAN: 73 year old female with a history of hypertension, GI bleeding, chronic lymphocytic leukemia, hepatitis B, and frequent UTIs was brought in to the hospital for several days of worsening altered mental status and admitted for the treatment of urinary tract infection #Urinary Tract Infection -continue treatment with ertapenem -monitor H&H #Pancytopenia -granix 300mcg subq ordered -repeat CBC in morning #Chronic Lymphocytic Leukemia: -will likely need treatment with tyrosine kinase inhibitor ibrutinib going forward, will evaluate in outpatient setting DISCUSSED WITH DR. NARAYAN Visit type - Emergency Visit Emergency Visit: No - New Patient This patient is new to me today: Yes Date on this admission: 11/22/18 - Critical Care Critical Care patient: No ATTENDING PHYSICIAN STATEMENT I saw and evaluated the patient. I reviewed the resident's note and discussed the case with the resident. I agree with the resident's findings and plan as documented. SUBJECTIVE: OBJECTIVE: ASSESSMENT AND PLAN:
[2018-11-22] MEDS ORDERED: TBO-FILGRASTIM 300 MCG/0.5 ML DISP.SYRINGE SQ ONE (11:30)
--- NOTE | 2018-11-22 14:21 | PN ---
Progress Note (short form) - Note Progress Note: feels well alert today no complaints Vital Signs Period Temp Pulse Resp BP Sys/Borjas Pulse Ox Last 24 Hr 98.8 F-99.6 F 84-86 18-24 138-160/70-80 97 cor-rrr lungs clear abd soft,nt ext minimal erythema, less edema CBC, BMP 11/22/18 07:55 11/22/18 07:55 Microbiology 11/21/18 11:15 Blood - Peripheral Venous Blood Culture - Preliminary NO GROWTH OBTAINED AFTER 24 HOURS, INCUBATION TO CONTINUE FOR 4 DAYS. 11/21/18 11:15 Blood - Peripheral Venous Blood Culture - Preliminary NO GROWTH OBTAINED AFTER 24 HOURS, INCUBATION TO CONTINUE FOR 4 DAYS. 11/21/18 09:10 Urine - Urine Clean Catch Urine Culture - Preliminary Lactose Fermenting Neg Bacilli Proteus Species Group D Strep Or Entero Coccus a/p pancytopenia/CLL-received granix today history of recurrent UTI she has a staghom calculus on the right and has refused intervention in the past r/o recurrent UTI most recent urine culture with citrobacter- would continue ertapenem will f/u cultures contact isolation for prior VRE neutropenic precautions Problem List - Problems (1) Altered mental state Code(s): R41.82 - ALTERED MENTAL STATUS, UNSPECIFIED Qualifiers: Altered mental status type: unspecified Qualified Code(s): R41.82 - Altered mental status, unspecified (2) UTI (urinary tract infection) Code(s): N39.0 - URINARY TRACT INFECTION, SITE NOT SPECIFIED Qualifiers: Urinary tract infection type: site unspecified Hematuria presence: with hematuria Qualified Code(s): N39.0 - Urinary tract infection, site not specified; R31.9 - Hematuria, unspecified (3) Pancytopenia Code(s): D61.818 - OTHER PANCYTOPENIA (4) Chronic lymphocytic leukemia Code(s): C91.90 - LYMPHOID LEUKEMIA, UNSPECIFIED NOT HAVING ACHIEVED REMISSION
[2018-11-22 15:46] LABS: ANISOCYTOSIS 0; MACROCYTOSIS 0; OVALOCYTE 1+; PLATELET ESTIMATE DECREASED; TEAR DROP CELLS 1+
--- NOTE | 2018-11-22 19:49 | PN ---
Teaching Attending Note Name of Resident: Jay Corbin ATTENDING PHYSICIAN STATEMENT I saw and evaluated the patient. I reviewed the resident's note and discussed the case with the resident. I agree with the resident's findings and plan as documented. SUBJECTIVE: Patient seen and examined Recurrent resistant UTI associated with neutropenia, staghorn calculus in patient with CLL. S/P Rituxin. Hepatitis B converter on lamivudine. CBC, BMP 11/22/18 07:55 11/22/18 07:55 Last Vital Signs Temp Pulse Resp BP Pulse Ox 98.4 F 86 20 143/83 97 11/22/18 17:03 11/22/18 17:03 11/22/18 17:03 11/22/18 17:03 11/21/18 22:13 HEENT: FELIBERTO, EOM Intact Oropharynx: No thrush, No mucositis Neck: Supple Nodes: Without adenopathy Breasts: Without masses Cor: RSR, No murmurs, No gallops Lungs: Clear to P&A Abd: Soft, Normal bowel sounds, No organomegaly Ext:No significant edema Skin: No rashes, Integument intact Current Medications Generic Name Dose Route Start Last Admin Trade Name Freq PRN Reason Stop Dose Admin Allopurinol 300 mg 11/22/18 10:00 11/22/18 09:55 Zyloprim - PO 300 mg DAILY RYAN Administration Amlodipine Besylate 5 mg 11/22/18 10:00 11/22/18 09:55 Norvasc - PO 5 mg DAILY RYAN Administration Folic Acid 1 mg 11/22/18 10:00 11/22/18 09:54 Folic Acid - PO 1 mg DAILY RYAN Administration Ertapenem 1 gm/ Sodium 50 mls @ 100 mls/hr 11/22/18 10:00 11/22/18 09:53 Chloride IVPB 100 mls/hr DAILY RYAN Administration Non-Formulary Medication 100 mg 11/22/18 19:15 Lamivudine [Lamivudine Hbv] PO DAILY RYAN Olanzapine 10 mg 11/22/18 10:00 11/22/18 09:55 Zyprexa - PO 10 mg DAILY RYAN Administration Pantoprazole Sodium 20 mg 11/22/18 10:00 11/22/18 09:55 Protonix - PO 20 mg DAILY RYAN Administration CBC, BMP 11/22/18 07:55 11/22/18 07:55 Impression: E.Coli ESBL -antibiotics Pancytopenia Neutropenia- for neupogen To check immunoglobulins May be candidate for Gamma globulin Please resume patients lamivudine Monitor CBC OBJECTIVE: ASSESSMENT AND PLAN:
[2018-11-22] MEDS: LAMIVUDINE 100 MG PO SCH (20:16)
--- NOTE | 2018-11-23 07:48 | PN ---
Progress Note, Physician Chief Complaint: OOB to chair feels better ate OK afebrile, awake alert seems not confused consults reviewed - Current Medication List Current Medications: Active Medications Allopurinol (Zyloprim -) 300 mg PO DAILY [facility] Last Admin: 11/22/18 09:55 Dose: 300 mg Amlodipine Besylate (Norvasc -) 5 mg PO DAILY [facility] Last Admin: 11/22/18 09:55 Dose: 5 mg Folic Acid (Folic Acid -) 1 mg PO DAILY [facility] Last Admin: 11/22/18 09:54 Dose: 1 mg Ertapenem 1 gm/ Sodium (Chloride) 50 mls @ 100 mls/hr IVPB DAILY [facility] Last Admin: 11/22/18 09:53 Dose: 100 mls/hr Non-Formulary Medication (Lamivudine [Lamivudine Hbv]) 100 mg PO DAILY [facility] Last Admin: 11/22/18 20:16 Dose: 100 mg Olanzapine (Zyprexa -) 10 mg PO DAILY [facility] Last Admin: 11/22/18 09:55 Dose: 10 mg Pantoprazole Sodium (Protonix -) 20 mg PO DAILY [facility] Last Admin: 11/22/18 09:55 Dose: 20 mg - Objective Vital Signs: Vital Signs Temperature 98.1 F 11/23/18 07:14 Pulse Rate 80 11/23/18 07:14 Respiratory Rate 20 11/23/18 07:14 Blood Pressure 147/68 11/23/18 07:14 O2 Sat by Pulse Oximetry (%) 97 11/21/18 22:13 Constitutional: Yes: No Distress, Calm Eyes: Yes: Conjunctiva Clear HENT: Yes: Atraumatic Neck: Yes: Supple Cardiovascular: Yes: Regular Rate and Rhythm Respiratory: Yes: CTA Bilaterally Gastrointestinal: Yes: Soft. No: Tenderness Genitourinary: No: Hematuria Musculoskeletal: No: Joint Stiffness, Joint Swelling Extremities: No: Cold, Cool, Cyanosis Edema: No Integumentary: No: Bruising, Rash, Venous Stasis Changes Neurological: Yes: WNL, Alert, Oriented ...Motor Strength: WNL Psychiatric: Yes: WNL, Alert, Oriented. 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
[2018-11-23] MEDS ORDERED: PT OWN MED DRAWER 7, Y5N ONE ×2 (09:49→10:21)
[2018-11-23] MEDS: OLANZapine 5 MG TABLET PO SCH (10:06)
[2018-11-23] MEDS: FOLIC ACID 1 MG TABLET (FP) PO SCH (10:06)
[2018-11-23] MEDS: ALLOPURINOL 300 MG TABLET (FP) PO SCH (10:06)
[2018-11-23] MEDS: PANTOPRAZOLE 20 MG TABLET (FP) PO SCH (10:06)
[2018-11-23] MEDS: ERTAPENEM SODIUM 1 GM in SODIUM CHLORIDE 50 ML IVPB SCH (10:06)
[2018-11-23] MEDS: LAMIVUDINE 100 MG PO SCH (10:06)
[2018-11-23] MEDS: amLODIPine BESYLATE 5 MG TABLET (FP) PO SCH (10:06)
--- NOTE | 2018-11-23 16:29 | PN ---
Progress Note (short form) - Note Progress Note: Patient seen and examined Confused Incontinent of stool Last Vital Signs Temp Pulse Resp BP Pulse Ox 97.3 F L 80 20 110/60 97 11/23/18 15:00 11/23/18 15:00 11/23/18 15:00 11/23/18 15:00 11/21/18 22:13 Lungs - clear Cor-RSR abd -soft Ext- no edema CBC, BMP 11/22/18 07:55 11/22/18 07:55 Current Medications Generic Name Dose Route Start Last Admin Trade Name Eloise PRN Reason Stop Dose Admin Allopurinol 300 mg 11/22/18 10:00 11/23/18 10:06 Zyloprim - PO 300 mg DAILY RYAN Administration Amlodipine Besylate 5 mg 11/22/18 10:00 11/23/18 10:06 Norvasc - PO 5 mg DAILY RYAN Administration Folic Acid 1 mg 11/22/18 10:00 11/23/18 10:06 Folic Acid - PO 1 mg DAILY RYAN Administration Ertapenem 1 gm/ Sodium 50 mls @ 100 mls/hr 11/22/18 10:00 11/23/18 10:06 Chloride IVPB 100 mls/hr DAILY RYAN Administration Non-Formulary Medication 100 mg 11/22/18 19:15 11/23/18 10:06 Lamivudine [Lamivudine Hbv] PO 100 mg DAILY RYAN Administration Olanzapine 10 mg 11/22/18 10:00 11/23/18 10:06 Zyprexa - PO 10 mg DAILY RYAN Administration Pantoprazole Sodium 20 mg 11/22/18 10:00 11/23/18 10:06 Protonix - PO 20 mg DAILY RYAN Administration Impression: E.coli- UTI ESBL CLL Confusion Continue antibiotics per ID Monitor chems. Neupogen.
[2018-11-24 06:09] LABS: BASO % 1.1 % (0-2.0); EOS % 5.5 % (0-4.5); HEMATOCRIT 29.1 % (32.4-45.2); HEMOGLOBIN 9.7 GM/dL (10.7-15.3); LYMPH % 44.6 % (8-40); MCH 26.2 pg (25.7-33.7); MCHC 33.4 g/dl (32.0-36.0); MEAN CELL VOLUME 78.5 fl (80-96); MEAN PLT VOLUME 10.4 fl (7.5-11.1); MONO % 3.5 % (3.8-10.2); NEUT % 45.3 % (42.8-82.8); PLATELET COUNT 147 K/MM3 (134-434); RBC 3.71 M/mm3 (3.60-5.2); RDW 24.6 % (11.6-15.6); WHITE BLOOD COUNT 2.3 K/mm3 (4.0-10.0)
[2018-11-24 06:36] LABS: ALBUMIN 3.3 g/dl (3.4-5.0); BILIRUBIN,TOTAL 0.7 mg/dL (0.2-1); BLOOD UREA NITROGEN 32.4 mg/dL (7-18); CALCIUM 9.5 mg/dL (8.5-10.1); CREATININE 1.2 mg/dL (0.55-1.3); TOT PROT 5.6 g/dl (6.4-8.2)
[2018-11-24] MEDS ORDERED: PT OWN MED DRAWER 7, Y5N ONE ×4 (08:03→21:27)
[2018-11-24 08:07] LABS: IGA IMMUNOGLOBULIN 93 mg/dL (64-422); IGG QN IMMUNOGLOBULIN 648 mg/dL (700-1600); IGM QN SERUM 49 mg/dL (26-217)
--- NOTE | 2018-11-24 08:30 | PN ---
Progress Note, Physician Chief Complaint: OOB to chair feels better less confused - Current Medication List Current Medications: Active Medications Allopurinol (Zyloprim -) 300 mg PO DAILY [facility] Last Admin: 11/23/18 10:06 Dose: 300 mg Amlodipine Besylate (Norvasc -) 5 mg PO DAILY [facility] Last Admin: 11/23/18 10:06 Dose: 5 mg Folic Acid (Folic Acid -) 1 mg PO DAILY [facility] Last Admin: 11/23/18 10:06 Dose: 1 mg Ertapenem 1 gm/ Sodium (Chloride) 50 mls @ 100 mls/hr IVPB DAILY [facility] Last Admin: 11/23/18 10:06 Dose: 100 mls/hr Non-Formulary Medication (Lamivudine [Lamivudine Hbv]) 100 mg PO DAILY [facility] Last Admin: 11/23/18 10:06 Dose: 100 mg Olanzapine (Zyprexa -) 10 mg PO DAILY [facility] Last Admin: 11/23/18 10:06 Dose: 10 mg Pantoprazole Sodium (Protonix -) 20 mg PO DAILY [facility] Last Admin: 11/23/18 10:06 Dose: 20 mg - Objective Vital Signs: Vital Signs Temperature 97.8 F 11/24/18 06:22 Pulse Rate 68 11/24/18 06:22 Respiratory Rate 20 11/24/18 06:22 Blood Pressure 112/70 11/24/18 06:22 O2 Sat by Pulse Oximetry (%) 97 11/21/18 22:13 Constitutional: Yes: No Distress, Calm Eyes: Yes: Conjunctiva Clear HENT: Yes: Atraumatic Neck: Yes: Supple Cardiovascular: Yes: Regular Rate and Rhythm Respiratory: Yes: CTA Bilaterally Gastrointestinal: Yes: Soft. No: Tenderness Genitourinary: No: Hematuria Musculoskeletal: No: Joint Stiffness, Joint Swelling Extremities: No: Cold, Cool Edema: Yes Integumentary: No: Rash, Venous Stasis Changes Neurological: Yes: WNL, Alert, Oriented ...Motor Strength: WNL Psychiatric: Yes: WNL, Alert, Oriented. 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
[2018-11-24] MEDS: ERTAPENEM SODIUM 1 GM in SODIUM CHLORIDE 50 ML IVPB SCH (09:55)
[2018-11-24] MEDS: OLANZapine 5 MG TABLET PO SCH (09:55)
[2018-11-24] MEDS: ALLOPURINOL 300 MG TABLET (FP) PO SCH (09:55)
[2018-11-24] MEDS: amLODIPine BESYLATE 5 MG TABLET (FP) PO SCH (09:55)
[2018-11-24] MEDS: PANTOPRAZOLE 20 MG TABLET (FP) PO SCH (09:55)
[2018-11-24] MEDS: FOLIC ACID 1 MG TABLET (FP) PO SCH (09:55)
[2018-11-24] MEDS: LAMIVUDINE 100 MG PO SCH (10:10)
--- NOTE | 2018-11-24 17:27 | PN ---
Progress Note (short form) - Note Progress Note: awake and alert no complaints Vital Signs Period Temp Pulse Resp BP Sys/Borjas Pulse Ox Last 24 Hr 97.8 F-99.1 F 68-80 20-20 112-138/63-73 cor-rrr lungs clear abd soft,nt ext no edema CBC, BMP 11/24/18 05:20 11/24/18 05:20 Microbiology 11/21/18 11:15 Blood - Peripheral Venous Blood Culture - Preliminary NO GROWTH OBTAINED AFTER 72 HOURS, INCUBATION TO CONTINUE FOR 2 DAYS. 11/21/18 11:15 Blood - Peripheral Venous Blood Culture - Preliminary NO GROWTH OBTAINED AFTER 72 HOURS, INCUBATION TO CONTINUE FOR 2 DAYS. 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 and has refused intervention in the past d/c ertapenem can switch to po amox for 7 days ?mild dementia contact isolation ffor prior VRE please call back if needed Problem List - Problems (1) Altered mental state Code(s): R41.82 - ALTERED MENTAL STATUS, UNSPECIFIED Qualifiers: Altered mental status type: unspecified Qualified Code(s): R41.82 - Altered mental status, unspecified (2) UTI (urinary tract infection) Code(s): N39.0 - URINARY TRACT INFECTION, SITE NOT SPECIFIED Qualifiers: Urinary tract infection type: site unspecified Hematuria presence: with hematuria Qualified Code(s): N39.0 - Urinary tract infection, site not specified; R31.9 - Hematuria, unspecified (3) Pancytopenia Code(s): D61.818 - OTHER PANCYTOPENIA (4) Chronic lymphocytic leukemia Code(s): C91.90 - LYMPHOID LEUKEMIA, UNSPECIFIED NOT HAVING ACHIEVED REMISSION
[2018-11-24] MEDS: AMOXICILLIN 500 MG CAPSULE (FP) PO SCH (21:49)
--- NOTE | 2018-11-24 23:46 | PN ---
Progress Note (short form) - Note Progress Note: PAtient seen and examined 73 y/o patient with CLL, Vital Signs Period Temp Pulse Resp BP Sys/Borjas Pulse Ox Last 24 Hr 97.8 F-99.1 F 68-80 20-20 112-138/63-73 cor-rrr lungs clear abd soft,nt ext no edema CBC, BMP 11/24/18 05:20 11/24/18 05:20 Microbiology 11/21/18 11:15 Blood - Peripheral Venous Blood Culture - Preliminary NO GROWTH OBTAINED AFTER 72 HOURS, INCUBATION TO CONTINUE FOR 2 DAYS. 11/21/18 11:15 Blood - Peripheral Venous Blood Culture - Preliminary NO GROWTH OBTAINED AFTER 72 HOURS, INCUBATION TO CONTINUE FOR 2 DAYS. 11/21/18 09:10 Urine - Urine Clean Catch Urine Culture - Final Escherichia Coli Proteus Mirabilis Group D Strep Or Entero Coccus a/p 72 y/o patient with CLL, s/p rituxan, comes in with fever, UTI Sepsis/? uti--on ertapenem per ID cytopenias improving
[2018-11-25] MEDS ORDERED: PT OWN MED DRAWER 7, Y5N ONE (05:07)
[2018-11-25] MEDS: AMOXICILLIN 500 MG CAPSULE (FP) PO SCH ×2 (06:00→13:44)
[2018-11-25 09:30] VITALS: BP 115/80; PULSE 66; TEMP 98.6
[2018-11-25] MEDS: PANTOPRAZOLE 20 MG TABLET (FP) PO SCH (09:30)
[2018-11-25] MEDS: LAMIVUDINE 100 MG PO SCH (09:30)
[2018-11-25] MEDS: OLANZapine 5 MG TABLET PO SCH (09:30)
[2018-11-25] MEDS: ALLOPURINOL 300 MG TABLET (FP) PO SCH (09:31)
[2018-11-25] MEDS: FOLIC ACID 1 MG TABLET (FP) PO SCH (09:31)
[2018-11-25] MEDS: amLODIPine BESYLATE 5 MG TABLET (FP) PO SCH (09:31)
--- NOTE | 2018-11-25 09:34 | DS ---
Physical Examination Vital Signs: Vital Signs Temperature 98.6 F 11/25/18 09:29 Pulse Rate 66 11/25/18 09:29 Respiratory Rate 18 11/25/18 09:29 Blood Pressure 115/80 11/25/18 09:29 O2 Sat by Pulse Oximetry (%) 97 11/21/18 22:13 Findings/Remarks: awake alert NAD VSS afebrile feels well wants to go home d/w daughter Dayana DC plan and ATB and f/u needed d/w CM for ADULT MANAGER Home PT and VNS Constitutional: Yes: No Distress, Calm Eyes: Yes: Conjunctiva Clear HENT: Yes: Atraumatic Neck: Yes: Supple Cardiovascular: Yes: Regular Rate and Rhythm Respiratory: Yes: CTA Bilaterally Gastrointestinal: Yes: Soft. No: Tenderness Renal/: No: CVA Tenderness - Left, CVA Tenderness - Right, Hematuria Musculoskeletal: No: Joint Stiffness, Joint Swelling Extremities: No: Cold, Cool, Cyanosis Edema: No Integumentary: No: Erythema, Rash, Venous Stasis Changes Neurological: Yes: WNL, Alert, Oriented ...Motor Strength: WNL Psychiatric: Yes: WNL, Alert, Oriented. No: Agitated, Suicidal Ideation Labs: CBC, BMP 11/24/18 05:20 11/24/18 05:20 Discharge Summary Reason For Visit: URINARY TRACT INFECTION; LEUKOPENIA Current Active Problems Leukopenia (Acute) UTI (urinary tract infection) (Acute) Procedures: Principal: 73 YOF CLL renal stones HTN admitted with confusion, toxic metabolic encephalopathy UTI Other Procedures: IV ATB per ID; IVF; heme onc f/u Hospital Course: improved with above; DC home f/u as advised. Condition: Improved - Instructions Diet, Activity, Other Instructions: f/u PCP heme onc and in 1-3 weeks after DC home; home PT, VNS and ADULT MANAGER check labs in 1 week CBC CMP and UA UCx RTER if worse or recurrent c/o good po hydration Referrals: Sabi Jordan [Primary Care Provider] - Alex Arceo MD., [Staff Physician] - Stu Garcia MD [Staff Physician] - Disposition: VNS/HOME HEALTH CARE - Home Medications Comprehensive Discharge Medication List: Ambulatory Orders Allopurinol [Zyloprim -] 300 mg PO DAILY #90 tablet 04/13/18 Amlodipine Besylate [Norvasc -] 5 mg PO DAILY #90 tablet 08/26/18 Olanzapine [Zyprexa -] 10 mg PO DAILY 10/08/18 Pantoprazole Sodium [Protonix -] 20 mg PO DAILY 10/08/18 Folic Acid - 1 mg PO DAILY tablet 10/19/18 Lamivudine [Lamivudine Hbv] 100 mg PO DAILY 11/01/18 Amoxicillin - [Amoxicillin 500mg Capsule -] 500 mg PO TID #21 capsule 11/24/18
== END 2018-11-25 14:40 | disposition home health service (06) | DRG 689 ==
LOC: JER 08:08 → JERBED 12:43 → J8W 21:41
PROVIDERS: ADMIT Internal Medicine; ATTEND Internal Medicine
DX: N39.0 Urinary tract infection, site not specified (principal); G93.41 Metabolic encephalopathy; C91.10 Chronic lymphocytic leukemia of B-cell type not having achieved remission; B19.10 Unspecified viral hepatitis B without hepatic coma; I10 Essential (primary) hypertension; K21.9 Gastro-esophageal reflux disease without esophagitis; K57.90 Diverticulosis of intestine, part unspecified, without perforation or abscess without bleeding; F03.90 Unspecified dementia, unspecified severity, without behavioral disturbance, psychotic disturbance, mood disturbance, and anxiety; K80.80 Other cholelithiasis without obstruction; B96.20 Unspecified Escherichia coli [E. coli] as the cause of diseases classified elsewhere; M54.5 Low back pain; D64.9 Anemia, unspecified; F41.9 Anxiety disorder, unspecified; N20.0 Calculus of kidney; D70.8 Other neutropenia
CPT/HCPCS: 36415; 70450-TC; 71046-TC-FY; 80053; 81003; 82140; 82550; 82784; 82962; 84484; 85025; 87040; 87077; 87086; 87186; 93005; 93010; 99284-25; J1447

== ENCOUNTER 2018-12-21 05:33 | Day surgery (SDC) | payer OTHER, MEDICARE ==
[2018-12-21] MEDS ORDERED: TBO-FILGRASTIM 480 MCG/0.8 ML DISP.SYRIN SQ ONE (09:15)
[2018-12-21 09:31] VITALS: BP 126/64; PULSE 75; TEMP 98.4
== END 2018-12-21 09:45 | disposition home or self-care (01) ==
LOC: JONCCHEMO 05:33 → J7W 08:46 → JONCCHEMO 09:45
PROVIDERS: ATTEND Internal Medicine Hematology & Oncology
PROC: 3E013GC Introduction of Other Therapeutic Substance into Subcutaneous Tissue, Percutaneous Approach (ICD-10-PCS; principal; 2018-12-21)
DX: C91.10 Chronic lymphocytic leukemia of B-cell type not having achieved remission (principal); Z76.89 Persons encountering health services in other specified circumstances
CPT/HCPCS: 96372; J1447

== ENCOUNTER 2018-12-26 07:24 | Inpatient (IN) | payer OTHER, MEDICARE ==
--- NOTE | 2018-12-26 07:43 | PDOC ---
History of Present Illness - General Chief Complaint: Nausea/Vomiting Stated Complaint: FEVER/NAUSEA Time Seen by Provider: 12/26/18 07:42 History Source: Patient Exam Limitations: No Limitations - History of Present Illness Initial Comments: 12/26/18 07:43 Tracy Rosas is a 73yF w PMHx Hep B, CLL, pancytopenia, GI bleed, HTN presenting for nausea/vomiting. Past History - Past Medical History Allergies/Adverse Reactions: Allergies Allergy/AdvReac Type Severity Reaction Status Date / Time vancomycin AdvReac Verified 12/26/18 07:37 Home Medications: Ambulatory Orders Allopurinol [Zyloprim -] 300 mg PO DAILY #90 tablet 04/13/18 Amlodipine Besylate [Norvasc -] 5 mg PO DAILY #90 tablet 08/26/18 Olanzapine [Zyprexa -] 10 mg PO DAILY 10/08/18 Pantoprazole Sodium [Protonix -] 20 mg PO DAILY 10/08/18 Folic Acid - 1 mg PO DAILY tablet 10/19/18 Lamivudine [Lamivudine Hbv] 100 mg PO DAILY 11/01/18 Amoxicillin - [Amoxicillin 500mg Capsule -] 500 mg PO TID #21 capsule 11/24/18 Quetiapine Fumarate [Seroquel -] 25 mg PO HS 12/21/18 Anemia: Yes (pancytopenia) Asthma: No Cancer: (Chronic Lymphocytic leukemia) Cardiac Disorders: (CHF) CVA: No COPD: No CHF: Yes Dementia: No Diabetes: No GI Disorders: Yes (GERD, gallstones, diverticulosis, GIB) Disorders: Yes (UTIs, VRE bacteremia, large kidney stones) HTN: Yes Hypercholesterolemia: No Liver Disease: No Psychiatric Problems: Yes (possibe dementia) Seizures: No Thyroid Disease: No - Surgical History Abdominal Surgery: No Appendectomy: No Cardiac Surgery: No Cholecystectomy: No Lung Surgery: No Neurologic Surgery: No Orthopedic Surgery: No - Immunization History Immunization Up to Date: Yes - Psycho Social/Smoking Cessation Hx Smoking Status: No Smoking History: Never smoked Have you smoked in the past 12 months: No Number of Cigarettes Smoked Daily: 0 Hx Alcohol Use: No Drug/Substance Use Hx: No Substance Use Type: None Hx Substance Use Treatment: No
--- NOTE | 2018-12-26 08:05 | PDOC ---
History of Present Illness - General Chief Complaint: Nausea/Vomiting Stated Complaint: FEVER/NAUSEA Time Seen by Provider: 12/26/18 07:42 History Source: Patient Exam Limitations: No Limitations - History of Present Illness Initial Comments: 12/26/18 07:59 73YOF PMHx Hep B, CLL (last round of Rituximab was August 2018), pancytopenia ( received injection of Neupogen on Wednesday), GI bleed, HTN presenting for nausea/vomiting. Daughter states the patient has been feeling ill for the past 2 -3 days and has had fever at home, also has been having nausea and dry heaves, and lightheadedness. She denies chest pain, SOB, dysuria, abdominal pain, or other symptoms. Daughter notes the patient is not acting quite at her mental baseline but this change is very slight. Past History - Past Medical History Allergies/Adverse Reactions: Allergies Allergy/AdvReac Type Severity Reaction Status Date / Time vancomycin AdvReac Verified 12/26/18 07:37 Home Medications: Ambulatory Orders Allopurinol [Zyloprim -] 300 mg PO DAILY #90 tablet 04/13/18 Amlodipine Besylate [Norvasc -] 5 mg PO DAILY #90 tablet 08/26/18 Olanzapine [Zyprexa -] 10 mg PO DAILY 10/08/18 Pantoprazole Sodium [Protonix -] 20 mg PO DAILY 10/08/18 Folic Acid - 1 mg PO DAILY tablet 10/19/18 Lamivudine [Lamivudine Hbv] 100 mg PO DAILY 11/01/18 Amoxicillin - [Amoxicillin 500mg Capsule -] 500 mg PO TID #21 capsule 11/24/18 Quetiapine Fumarate [Seroquel -] 25 mg PO HS 12/21/18 Anemia: Yes (pancytopenia) Asthma: No Cancer: (Chronic Lymphocytic leukemia) Cardiac Disorders: (CHF) CVA: No COPD: No CHF: Yes Dementia: No Diabetes: No GI Disorders: Yes (GERD, gallstones, diverticulosis, GIB) Disorders: Yes (UTIs, VRE bacteremia, large kidney stones) HTN: Yes Hypercholesterolemia: No Liver Disease: No Psychiatric Problems: Yes (possibe dementia) Seizures: No Thyroid Disease: No - Surgical History Abdominal Surgery: No Appendectomy: No Cardiac Surgery: No Cholecystectomy: No Lung Surgery: No Neurologic Surgery: No Orthopedic Surgery: No - Immunization History Immunization Up to Date: Yes - Psycho Social/Smoking Cessation Hx Smoking Status: No Smoking History: Never smoked Have you smoked in the past 12 months: No Number of Cigarettes Smoked Daily: 0 Information on smoking cessation initiated: No Hx Alcohol Use: No Drug/Substance Use Hx: No Substance Use Type: None Hx Substance Use Treatment: No Review of Systems - Review of Systems Able to Perform ROS?: Yes Comments:: GEN: fever, chills, malaise, generalized weakness HEENT: no ear pain, sore throat, vision change, or eye pain CV: lightheadedness, no chest pain, palpitations, syncope, or edema RESP: no cough, wheezing, or SOB GI: no abdominal pain, nausea, vomiting, diarrhea, constipation, or white/black/ bloody stool : no dysuria, hematuria, incontinence, retention, bleeding, or discharge MSK: no neck/back pain, muscle weakness/pain, or joint swelling/pain NEURO: headache, no seizure, vertigo, numbness, tingling, or focal weakness PSYCH: no substance use, no behavior change SKIN: no jaundice, no rash ROS otherwise negative except as noted in HPI *Physical Exam - Vital Signs Last Vital Signs Temp Pulse Resp BP Pulse Ox 98.5 F 87 17 142/72 97 12/26/18 07:52 12/26/18 07:52 12/26/18 07:52 12/26/18 07:52 12/26/18 07:52 - Physical Exam Comments: GENERAL: ill-appearing, elderly, a bit frail, A/Ox4, no distress, answers questions appropriately HEENT: PERRLA, EOMI, a bit dry mucous membranes NECK/BACK: no midline ttp, no spinal stepoff or deformity, no hematoma, full ROM , neck supple CARDIOVASCULAR: regular rate/rhythm, normal S1S2, no MGR, strong peripheral pulses, capillary refill <2 seconds, extremities wwp, no edema LUNGS/RESPIRATORY: no respiratory distress, CTAB GI/ABDOMEN: symmetric [id number], normoactive BS, soft, no ttp, no midline pulsatile masses : no CVA tenderness EXTREMITIES: no muscle atrophy, no acute deformity SKIN: warm and dry, pale, no jaundice, no rash, no bruising, no skin breakdown, 0.5x0.5cm skin avulsion at the site of a skin biopsy to LUQ NEUROLOGICAL: GCS 15, CN II-XII grossly intact, 5/5 strength proximally and distally, no facial droop ED Treatment Course - LABORATORY CBC & Chemistry Diagram: 12/26/18 09:00 12/26/18 10:12 Medical Decision Making - Medical Decision Making 12/26/18 08:24 73YOF with CLL, last rituximab in August 2018, with neutropenia s/p Neupogen injection on 12/21/18, who p/w fever, nausea, dry heaves, no appetite, and lightheadedness worsening for the past few days. Initial Vital Signs Temp Pulse Resp BP Pulse Ox 98.5 F 87 17 142/72 97 12/26/18 07:52 12/26/18 07:52 12/26/18 07:52 12/26/18 07:52 12/26/18 07:52 Repeat PO temp is 100.3. Physical exam as noted in Physical Exam section. DDX IBNLT neutropenic fever, sepsis, e.g. UTI, PNA, cellulitis, intraabdominal infection, etc. Ordered is sepsis order set, NO rectal temps until WBC results, meds IVF, Ofirmev, Zofran. 12/26/18 09:19 I have spoken with Dr. Sabi Jordan who accepts the patient to Med/Surg, Decision to Admit placed. She requests consults with Drs. Kothari and Radha, orders placed as such. Patient has UA consistent with UTI and ceftriaxone is orderes (prior micro sensitive to ceftriaxone). Discharge - Discharge Information Problems reviewed: Yes Clinical Impression/Diagnosis: CLL (chronic lymphocytic leukemia) Fever Qualifiers: Fever type: unspecified Qualified Code(s): R50.9 - Fever, unspecified Vomiting Qualifiers: Vomiting type: unspecified Vomiting Intractability: unspecified Nausea presence : with nausea Qualified Code(s): R11.2 - Nausea with vomiting, unspecified Condition: Guarded - Admission Yes - Follow up/Referral - Patient Discharge Instructions - Post Discharge Activity
[2018-12-26] MEDS ORDERED: ONDANSETRON 4 MG/2 ML VIAL IVPUSH ONE (08:08)
[2018-12-26] MEDS ORDERED: SODIUM CHLORIDE 0.9% 500 ML INFUS.BAG IV ONE ×2 (08:08→11:24)
[2018-12-26] MEDS ORDERED: ACETAMINOPHEN 1000 MG/100 ML VIAL (NON FORMULARY) IVPB ONE (08:29)
[2018-12-26] MEDS ORDERED: ONDANSETRON 4 MG/2 ML VIAL ONE (08:30)
--- NOTE | 2018-12-26 09:40 | PDOC ---
Attending Attestation - Resident Resident Name: Mariaelena Simon - HPI HPI: 12/26/18 09:35 Pt presents to the ED complaining of malaise and low grade fever. History of CLL , recently given neupogen. Also complains of nausea, but denies vomiting. Denies urinary complaints or cough. - Physicial Exam PE: 12/26/18 09:40 Agree with resident exam. Patient is alert and in NAD. CV: rrr no m/r/g. Pulm : CTA b/l. Abdomen soft, non tender, non distended, no guarding or rebound. - Medical Decision Making 12/26/18 09:41 pt presents to the ED complaining of malaise and low grade fever. Found to be febrile in the ED. Given history, will admit to the ED. Will start antibiotics if neutropenic.
[2018-12-26 09:47] LABS: HEMATOCRIT 18.8 % (32.4-45.2); MCH 24.6 pg (25.7-33.7); MCHC 34.2 g/dl (32.0-36.0); MEAN CELL VOLUME 71.9 fl (80-96); PLATELET COUNT 104 K/MM3 (134-434); RBC 2.61 M/mm3 (3.60-5.2); WHITE BLOOD COUNT 2.8 K/mm3 (4.0-10.0)
[2018-12-26 10:06] LABS: HEMOGLOBIN 6.4 GM/dL (10.7-15.3)
[2018-12-26 10:20] LABS: EPI CELLS 1.6 /HPF (0-5/HPF); HYALINE CASTS 19 /lpf (0-8); PH,URINE 8.5 (5.0-8.0); URINE APPEARANCE CLOUDY; URINE BACTERIA 3458.1 /hpf (NEGATIVE); URINE BILIRUBIN NEGATIVE (NEGATIVE); URINE COLOR YELLOW; URINE GLUCOSE (UA) NEGATIVE (NEGATIVE); URINE KETONE NEGATIVE (NEGATIVE); URINE LEUK ESTERASE 3+ (NEGATIVE); URINE NITRITE POSITIVE (NEGATIVE); URINE PROTEIN 2+ (NEGATIVE); URINE RBC 29 /hpf (0-4); URINE UROBILINOGEN 0.2 mg/dL (0.2-1.0); URINE WBC 391 /hpf (0-5)
[2018-12-26] MEDS ORDERED: CEFTRIAXONE 1,000 MG in DEXTROSE 5%-WATER - 50 ML IVPB ONE (10:42)
[2018-12-26 10:46] LABS: INR 1.23 (0.83-1.09); PROTHROMBIN TIME (PATIENT) 14.6 SEC (9.7-13.0)
[2018-12-26 10:49] LABS: ACTIVATED PTT 27.8 SECONDS (25.2-36.5)
[2018-12-26 11:02] LABS: ALBUMIN 2.8 g/dl (3.4-5.0); ALK PHOS 77 U/L (45-117); ANION GAP 5 MMOL/L (8-16); BILIRUBIN,TOTAL 1.3 mg/dL (0.2-1); BLOOD UREA NITROGEN 19.1 mg/dL (7-18); CALCIUM 8.5 mg/dL (8.5-10.1); CHLORIDE 110 mmol/L (98-107); CO2 28 mmol/L (21-32); CREATININE 1.3 mg/dL (0.55-1.3); GLUCOSE,RANDOM 111 mg/dL (74-106); LDH 265 U/L (84-246); POTASSIUM 3.7 mmol/L (3.5-5.1); SGOT/AST 20 U/L (15-37); SGPT/ALT 10 U/L (13-61); SODIUM 144 mmol/L (136-145)
[2018-12-26] MEDS ORDERED: ACETAMINOPHEN INJECTION 100 ML IVPB ONE (11:12)
[2018-12-26] MEDS ORDERED: CEFTRIAXONE 1 GM/50 ML BAG ONE (11:12)
[2018-12-26] MEDS ORDERED: VENLAFAXINE HCL 37.5 MG E.R. CAPSULE (FP) PO ONE (11:26)
[2018-12-26] MEDS ORDERED: VENLAFAXINE HCL 150 MG E.R. CAPSULE PO ONE (11:27)
[2018-12-26 12:03] LABS: ANISOCYTOSIS 2+; MACROCYTOSIS 0; PLATELET ESTIMATE DECREASED; TEAR DROP CELLS 1+
[2018-12-26] MEDS ORDERED: FOLIC ACID 1 MG TABLET (FP) PO ONE (12:07)
[2018-12-26] MEDS ORDERED: lamiVUDine 150 MG TABLET PO ONE (12:07)
[2018-12-26] MEDS ORDERED: ALLOPURINOL 300 MG TABLET (FP) PO ONE (12:07)
[2018-12-26] MEDS ORDERED: amLODIPine BESYLATE 5 MG TABLET (FP) PO ONE (12:07)
[2018-12-26] MEDS ORDERED: PANTOPRAZOLE 20 MG TABLET (FP) PO ONE (12:07)
--- NOTE | 2018-12-26 13:46 | HP ---
Admitting History and Physical - Primary Care Physician PCP: Sabi Jordan S - Admission Chief Complaint: fever History of Present Illness: 73YOF PMHx Hep B, CLL on Rituximab per ONC, pancytopenia (received injection of Neupogen on Wednesday), GI bleed, HTN presenting for nausea/vomiting. Daughter states the patient has been feeling ill for the past 2 days (started with some chills wednesday night then had low grade fever wednesday and last night) also has been having nausea and dry heaves, and lightheadedness. She denies chest pain, SOB, dysuria, abdominal pain, or other symptoms. Daughter notes the patient is not acting quite at her mental baseline but this change is very slight. noted some rash around L ankle pt said she was itchy and scratched her skin but no local pain or edema History Source: Patient, Family Member, Medical Record Limitations to Obtaining History: No Limitations - Past Medical History Cardiovascular: Yes: HTN Gastrointestinal: Yes: Diverticulosis (on CT scan), GI Bleed (02/13 post- sphincterotomy bleed) Hepatobiliary: Yes: Cholelithiasis, Choledocholithiasis (with cholangitis 02/13 requring ERCP & sphincterotomy complicated by a post-sphincterotomy bleed ) Renal/: Yes: Renal Calculi Heme/Onc: Yes: Anemia, Cancer (CLL- had bone marrow at 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 of Recent Travel: No Home Medications - Allergies Allergies/Adverse Reactions: Allergies Allergy/AdvReac Type Severity Reaction Status Date / Time vancomycin AdvReac Verified 12/26/18 07:37 - Home Medications Home Medications: Ambulatory Orders Allopurinol [Zyloprim -] 300 mg PO DAILY #90 tablet 04/13/18 Amlodipine Besylate [Norvasc -] 5 mg PO DAILY #90 tablet 08/26/18 Olanzapine [Zyprexa -] 10 mg PO DAILY 10/08/18 Pantoprazole Sodium [Protonix -] 20 mg PO DAILY 10/08/18 Folic Acid - 1 mg PO DAILY tablet 10/19/18 Lamivudine [Lamivudine Hbv] 100 mg PO DAILY 11/01/18 Quetiapine Fumarate [Seroquel -] 25 mg PO HS 12/21/18 Family Medical History Family History: Unremarkable Review of Systems - Review of Systems Constitutional: reports: Chills, Fever, Loss of Appetite, Weakness (general). denies: Lethargy Eyes: denies: Blind Spots, Blurred Vision, Double Vision HENT: denies: Difficult Swallowing, Ear Pain, Epistaxis Neck: denies: Decreased ROM, Pain on Movement, Stiffness, Tenderness Cardiovascular: denies: Chest Pain, Palpitations, Shortness of Breath Respiratory: denies: Cough, Hemoptysis, SOB, SOB on Exertion, Wheezing Gastrointestinal: denies: Abdominal Pain, Bloating, Constipation, Diarrhea, Rectal Bleeding, Vomiting Genitourinary: denies: Burning, Discharge, Dysuria, Flank Pain Breasts: denies: Pain Musculoskeletal: denies: Back Pain, Joint Swelling Integumentary: reports: Rash (L ankle) Neurological: denies: Change in LOC, Change in Speech, Confusion, Dizziness Endocrine: denies: Excessive Sweating, Flushing, Intolerance to Cold Hematology/Lymphatic: denies: Easily Bruised, Excessive Bleeding Psychiatric: reports: Anxiety. denies: Altered Sleep Pattern, Depression, Hallucinations, Panic, Paranoia, Suicidal Physical Examination Vital Signs: Vital Signs Temperature 98.5 F 12/26/18 07:52 Pulse Rate 77 12/26/18 11:58 Respiratory Rate 17 12/26/18 11:58 Blood Pressure 120/64 12/26/18 11:58 O2 Sat by Pulse Oximetry (%) 96 12/26/18 11:58 Constitutional: Yes: No Distress, Calm Eyes: Yes: Conjunctiva Clear HENT: Yes: Atraumatic Neck: Yes: Supple Cardiovascular: Yes: Regular Rate and Rhythm Respiratory: Yes: CTA Bilaterally Gastrointestinal: Yes: Soft. No: Tenderness Renal/: No: Hematuria Musculoskeletal: No: Joint Stiffness, Joint Swelling Extremities: No: Calf Tenderness, Cold, Cool Edema: No Integumentary: Yes: Rash (L ankle) Neurological: Yes: WNL, Alert, Oriented ...Motor Strength: WNL Psychiatric: Yes: WNL, Alert, Oriented. No: Agitated, Suicidal Ideation Labs: CBC, BMP 12/26/18 09:00 12/26/18 10:12 Imaging - Results Chest X-ray: Report Reviewed Other: Report Reviewed Assessment/Plan 73YOF PMHx Hep B, CLL pancytopenia (received injection of Neupogen on Wednesday) , GI bleed, HTN presenting for fever, vomited once, general weakness and lightheadedness, L ankle rash r/o cellulitis check labs UX CXR blood cx IV ATB ID and heme onc eval falls pfx d/w [pt and daughter do not get OOB alone prognosis guarded d./w pt and daughter Dayana; d/w staff
--- NOTE | 2018-12-26 15:13 | PN ---
Progress Note (short form) - Note Progress Note: ID consult dictated daughter at bedside provided history developed low grade fever this weeken with nausea and poor appetite this am temp over 101 at home no complaints at all alert in ED no fevers some erythema LLE no flank pain, no dysuria fever at home, not neutropenic-s/p granix last week probable cellulitis LLE Pyuria-probably chronic, history of staghorn calculi CLL anemia history of leukopenia- not neutropenic continue ceftriaxone f/u cultures transfuse as needed Problem List - Problems (1) Fever Code(s): R50.9 - FEVER, UNSPECIFIED Qualifiers: Fever type: unspecified Qualified Code(s): R50.9 - Fever, unspecified (2) Anemia Code(s): D64.9 - ANEMIA, UNSPECIFIED Qualifiers: Anemia type: unspecified type Qualified Code(s): D64.9 - Anemia, unspecified (3) Chronic lymphocytic leukemia Code(s): C91.90 - LYMPHOID LEUKEMIA, UNSPECIFIED NOT HAVING ACHIEVED REMISSION (4) UTI (urinary tract infection) Code(s): N39.0 - URINARY TRACT INFECTION, SITE NOT SPECIFIED Qualifiers: Urinary tract infection type: site unspecified Hematuria presence: with hematuria Qualified Code(s): N39.0 - Urinary tract infection, site not specified; R31.9 - Hematuria, unspecified
--- NOTE | 2018-12-26 15:43 | PN ---
Problem List - Problems (1) Fever Code(s): R50.9 - FEVER, UNSPECIFIED Qualifiers: Fever type: unspecified Qualified Code(s): R50.9 - Fever, unspecified (2) Anemia Code(s): D64.9 - ANEMIA, UNSPECIFIED Qualifiers: Anemia type: unspecified type Qualified Code(s): D64.9 - Anemia, unspecified (3) Chronic lymphocytic leukemia Code(s): C91.90 - LYMPHOID LEUKEMIA, UNSPECIFIED NOT HAVING ACHIEVED REMISSION (4) UTI (urinary tract infection) Code(s): N39.0 - URINARY TRACT INFECTION, SITE NOT SPECIFIED Qualifiers: Urinary tract infection type: site unspecified Hematuria presence: with hematuria Qualified Code(s): N39.0 - Urinary tract infection, site not specified; R31.9 - Hematuria, unspecified (5) Cellulitis Code(s): L03.90 - CELLULITIS, UNSPECIFIED
--- NOTE | 2018-12-26 17:00 | CONSULT ---
Consultation: REQUESTING PROVIDER: Dr. Jordan CONSULT REQUEST: Hematology and oncology consult We have been asked to medically evaluate this patient for Neutropenic fever. HISTORY OF PRESENT ILLNESS: The patient the 73-year-old female with a past medical history of hepatitis B, CLL (last round of rituximab July 2018), pancytopenia (status post neupogen shot on Wednesday), G.I. bleed and hypertension who presented to the emergency department complaining of a three-day history of nausea, vomiting and fever is at home. The history is collected from the patient with the assistance of her daughter at bedside. Patient states that for the past three days she has been feeling nauseous with dry heaves and non-bilious non-bloody vomiting. In addition to this, the patient endorses a fever measure to 103 at home. The patient denies chest pain, shortness of breath, dysuria, abdominal pain or decreased appetite. In the emergency department, she was found to be febrile to 100.3 orally. A urinalysis revealed a positive nitrite, 3+ leukocyte esterase, 2 + blood, and 391 white blood cells. A CBC revealed a leukopenia to 2.8 with an ANC of approximately 14,000. The patient was treated with one dose of ceftriaxone 1 g. Infectious disease and hematology were both consulted. On interview, the patient states that her symptoms have resolved and that she feels fine. Patient has no other complaints. REVIEW OF SYSTEMS: CONSTITUTIONAL: Absent: diaphoresis, generalized weakness, malaise, loss of appetite, weight change HEENT: Absent: rhinorrhea, nasal congestion, throat pain, throat swelling, difficulty swallowing, mouth swelling, ear pain, eye pain, visual changes CARDIOVASCULAR: Absent: chest pain, syncope, palpitations, irregular heart rate, lightheadedness , peripheral edema RESPIRATORY: Absent: cough, shortness of breath, dyspnea with exertion, orthopnea, wheezing, stridor, hemoptysis GASTROINTESTINAL: Absent: abdominal pain, abdominal distension, nausea, vomiting, diarrhea, constipation, melena, hematochezia GENITOURINARY: Absent: dysuria, frequency, urgency, hesitancy, hematuria, flank pain, genital pain MUSCULOSKELETAL: Absent: myalgia, arthralgia, joint swelling, back pain, neck pain SKIN: Absent: rash, itching, pallor HEMATOLOGIC/IMMUNOLOGIC: Absent: easy bleeding, easy bruising, lymphadenopathy, frequent infections ENDOCRINE: Absent: unexplained weight gain, unexplained weight loss, heat intolerance, cold intolerance NEUROLOGIC: Absent: headache, focal weakness or paresthesias, dizziness, unsteady gait, seizure, mental status changes, bladder or bowel incontinence PSYCHIATRIC: Absent: anxiety, depression, suicidal or homicidal ideation, hallucinations. PHYSICAL EXAMINATION Vital Signs - 24 hr 12/26/18 12/26/18 12/26/18 07:52 11:58 14:40 Temperature 98.5 F 98.5 F Pulse Rate 87 Pulse Rate [ 77 76 Right Radial] Respiratory 17 17 19 Rate Blood Pressure 142/72 Blood Pressure 120/64 117/64 [Right Arm] O2 Sat by Pulse 97 96 100 Oximetry (%) 12/26/18 12/26/18 14:45 15:10 Temperature 98.6 F 98.5 F Pulse Rate Pulse Rate [ 87 88 Right Radial] Respiratory 19 19 Rate Blood Pressure Blood Pressure 110/68 116/67 [Right Arm] O2 Sat by Pulse 99 99 Oximetry (%) GENERAL: Awake, alert, and fully oriented, in no acute distress. HEAD: Normal with no signs of trauma. EYES: Pupils equal, round and reactive to light, extraocular movements intact, sclera anicteric, conjunctiva clear. No lid lag. LUNGS: Breath sounds equal, clear to auscultation bilaterally. No wheezes, and no crackles. No accessory muscle use. HEART: Regular rate and rhythm, normal S1 and S2 without murmur, rub or gallop. ABDOMEN: Soft, nontender, not distended, normoactive bowel sounds, no guarding, no rebound, no masses. No hepatomegaly or splenomegaly. LOWER EXTREMITIES: 2+ pulses, warm, well-perfused. No calf tenderness. No peripheral edema. NEUROLOGICAL: Cranial nerves II-X intact. Normal speech. Skin: There is an area on the distal end of the patient's left leg which is erythematous and warm to the touch. The area measures approx. 9x7 cm. Laboratory Results - last 24 hr 12/26/18 12/26/18 12/26/18 09:00 09:00 09:00 WBC 2.8 L RBC 2.61 L Hgb 6.4 L* Hct 18.8 L D MCV 71.9 L MCH 24.6 L MCHC 34.2 RDW 27.0 H Plt Count 104 L D MPV 8.0 Neutrophils % No Result Required. Neutrophils % (Manual) 50.5 Band Neutrophils % 0.0 Lymphocytes % No Result Required. Lymphocytes % (Manual) 32.0 D Monocytes % (Manual) 4 Eosinophils % (Manual) 5.2 H Basophils % (Manual) 0.0 Myelocytes % (Man) 2 D Promyelocytes % (Man) 1 D Blast Cells % (Manual) 4 H D Nucleated RBC % 0 Total Absolute Neuts 1.50 Metamyelocytes 1 D Hypochromia 2+ Platelet Estimate Decreased Polychromasia 1+ Poikilocytosis 2+ Anisocytosis 2+ Microcytosis 1+ Macrocytosis 0 Tear Drop Cells 1+ PT with INR INR PTT (Actin FS) Sodium Potassium Chloride Carbon Dioxide Anion Gap BUN Creatinine Est GFR (CKD-EPI)AfAm Est GFR (CKD-EPI)NonAf Random Glucose Lactic Acid 0.8 Calcium Total Bilirubin AST ALT Alkaline Phosphatase LD Total Creatine Kinase Troponin I Total Protein Albumin Urine Color Yellow Urine Appearance Cloudy Urine pH 8.5 H D Ur Specific [place] 1.015 Urine Protein 2+ H Urine Glucose (UA) Negative Urine Ketones Negative Urine Blood 2+ H Urine Nitrite Positive H Urine Bilirubin Negative Urine Urobilinogen 0.2 Ur Leukocyte Esterase 3+ H Urine WBC (Auto) 391 Urine RBC (Auto) 29 Urine Casts (Auto) 19 U Epithel Cells (Auto) 1.6 Urine Bacteria (Auto) 3458.1 Blood Type Antibody Screen Crossmatch 12/26/18 12/26/18 12/26/18 10:12 10:12 10:12 WBC RBC Hgb Hct MCV MCH MCHC RDW Plt Count MPV Neutrophils % Neutrophils % (Manual) Band Neutrophils % Lymphocytes % Lymphocytes % (Manual) Monocytes % (Manual) Eosinophils % (Manual) Basophils % (Manual) Myelocytes % (Man) Promyelocytes % (Man) Blast Cells % (Manual) Nucleated RBC % Total Absolute Neuts Metamyelocytes Hypochromia Platelet Estimate Polychromasia Poikilocytosis Anisocytosis Microcytosis Macrocytosis Tear Drop Cells PT with INR 14.60 H INR 1.23 H PTT (Actin FS) 27.8 Sodium 144 Potassium 3.7 Chloride 110 H Carbon Dioxide 28 Anion Gap 5 L BUN 19.1 H Creatinine 1.3 Est GFR (CKD-EPI)AfAm 47.13 Est GFR (CKD-EPI)NonAf 40.67 Random Glucose 111 H Lactic Acid Calcium 8.5 Total Bilirubin 1.3 H AST 20 ALT 10 L Alkaline Phosphatase 77 LD Total 265 H Creatine Kinase 49 Troponin I < 0.02 Total Protein 5.0 L Albumin 2.8 L Urine Color Urine Appearance Urine pH Ur Specific [place] Urine Protein Urine Glucose (UA) Urine Ketones Urine Blood Urine Nitrite Urine Bilirubin Urine Urobilinogen Ur Leukocyte Esterase Urine WBC (Auto) Urine RBC (Auto) Urine Casts (Auto) U Epithel Cells (Auto) Urine Bacteria (Auto) Blood Type O POSITIVE Antibody Screen Negative Crossmatch See Detail Active Medications Generic Name Dose Route Start Last Admin Trade Name Freq PRN Reason Stop Dose Admin Allopurinol 300 mg 12/27/18 10:00 Zyloprim - PO DAILY [facility] Amlodipine Besylate 5 mg 12/27/18 10:00 Norvasc - PO DAILY [facility]AN Folic Acid 1 mg 12/27/18 10:00 Folic Acid - PO DAILY [facility] Ceftriaxone Sodium 1 gm/ 50 mls @ 100 mls/hr 12/27/18 10:00 Dextrose IVPB DAILY [facility] Lamivudine 100 mg 12/27/18 10:00 Epivir Oral Solution - PO DAILY [facility] Olanzapine 10 mg 12/27/18 10:00 Zyprexa - PO DAILY [facility] Pantoprazole Sodium 20 mg 12/27/18 10:00 Protonix - PO DAILY [facility] Quetiapine Fumarate 25 mg 12/26/18 22:00 Seroquel - PO HS [facility]AN ASSESSMENT/PLAN: The patient the 73-year-old female with a past medical history of hepatitis B, CLL (last round of rituximab July 2018), pancytopenia (status post neupogen shot on Wednesday), G.I. bleed and hypertension who presented to the emergency department complaining of a three-day history of nausea, vomiting and fever is at home. SHe was found to have a UTI and is being admitted for the treatment of this infection in the setting of neutropenia. #Nausea and vomiting likely secondary to UTI. -Patient with fevers at home and in the hospital -UA indicative of UTI -status post 1 g ceftriaxone in the emergency Department -infectious disease consulted -follow-up blood culture, urine culture #Neutropenia likely secondary to chemotherapy -white blood cell count 2.8 -ANC approximately 14,000 -neutropenic precautions -antibiotics per ID #Anemia likely secondary to chemotherapy -hemoglobin 6.4 -two units PRBC's ordered -maintain transfusion threshold of eight -follow-up post transfusion CBC -monitor daily CBC Dispo: We will continue to follow the patient. Thank you for this consultative opportunity. Visit type - Emergency Visit Emergency Visit: Yes ED Registration Date: 12/26/18 Care time: The patient presented to the Emergency Department on the above date and was hospitalized for further evaluation of their emergent condition. - New Patient This patient is new to me today: Yes Date on this admission: 12/26/18 - Critical Care Critical Care patient: No ATTENDING PHYSICIAN STATEMENT I saw and evaluated the patient. I reviewed the resident's note and discussed the case with the resident. I agree with the resident's findings and plan as documented. SUBJECTIVE: OBJECTIVE: ASSESSMENT AND PLAN:
--- NOTE | 2018-12-26 18:04 | CONS ---
INFECTIOUS DISEASE CONSULTATION DATE OF CONSULTATION: 12/26/2018 REQUESTING PHYSICIAN: Dr. Jordan History was from the daughter who is at bedside. This is a 73-year-old woman. She has a history of CLL and leukopenia. She received Neupogen last week. She is currently not on any chemotherapy. She developed low-grade fever this weekend with nausea and poor appetite. She had no dysuria. No cough. No other complaints. This morning, her temperature was over 101, and she felt weak. Her daughter brought her to the ER. Patient has no complaints whatsoever. She denies vomiting. She has felt nauseous and had a poor appetite. She has no dysuria. She has no flank pain. She has no suprapubic pain. She has no cough or shortness of breath. She is alert in the emergency room. Of note, she has some erythema of the left lower extremity which she is status post a recent biopsy of her left flank lesion which they are waiting for the biopsy results. PAST MEDICAL HISTORY: Notable for CLL, pancytopenia. She gets intermittent Granix; last was last week. Former Rituxan treatment. She is hepatitis B positive and is on Epivir. She has hypertension, diverticulosis, GI bleed, cholelithiasis, choledocholithiasis with cholangitis requiring ERCP and sphincterotomy, complicated by a post-sphincterotomy bleed. 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 SURGICAL HISTORY: Notable for tonsillectomy. ALLERGIES: She is allergic to VANCOMYCIN. Daughter states she received it twice and developed thrombocytopenia. SOCIAL HISTORY: She lives by herself. No history of cigarette, alcohol, or substance use. 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 Her daughter is very active in her care. FAMILY HISTORY: Notable for father who from pneumonia in his 80s and a mother who had a CVA at age 93. HOME MEDICATIONS: Include Seroquel, Protonix, Zyprexa, lamivudine, folic acid, Norvasc, and Zyloprim. REVIEW OF SYSTEMS: As per HPI. PHYSICAL EXAMINATION: Vital Signs: Her temperature is 98.5. Pulse is 76. She has had no fever in the ER. Her blood pressure is 117/64. Respiratory rate is 19. She is saturating 100%. She weighs 55 kg. HEENT: She is normocephalic. Her eyes are anicteric. She has no thrush. Neck: Supple. Lungs: Clear to auscultation. Heart: Regular rate and rhythm. Abdomen: Soft, nontender. She has no suprapubic or flank pain. Extremities: Notable for some erythema and warmth of her left lower extremity. LABORATORY DATA: White count is 2.8, hemoglobin 6.4, platelets are 104. She has 50% neutrophils, which makes her ANC 1.4. BUN is 19 and creatinine 1.3. LFTs are normal. UA: Leukocyte esterase 3+ with 391 white cells. Cultures are pending. Last urine culture done in October when she was in the hospital grew E. coli, proteus, and group D enterococcus. In summary, this is a 73-year-old woman with leukopenia, chronic lymphocytic leukemia, not neutropenic, who was admitted with fever and erythema of the left lower extremity. She has pyuria as well, which I suspect is chronic. I would continue ceftriaxone, follow up her cultures, and transfuse as needed. Case with discussed with the daughter at length. Further recommendations to follow. Alessandra [id number]
[2018-12-26] MEDS: ACETAMINOPHEN 325 MG TABLET (FP) PO PRN (21:13)
[2018-12-26] MEDS: QUEtiapine FUMARATE 25 MG TABLET (FP) PO SCH (21:13)
--- NOTE | 2018-12-26 21:27 | PN ---
Progress Note (short form) - Note Progress Note: 73 y/opatient with CLL, heere with fever, tremulous ness, extreme weakness, profound anemia and presumed UTI No abdominal pain/diarrhea/cough Allergies/Adverse Reactions: Allergies Allergy/AdvReac Type Severity Reaction Status Date / Time vancomycin AdvReac Verified 12/26/18 07:37 Home Medications: Ambulatory Orders Allopurinol [Zyloprim -] 300 mg PO DAILY #90 tablet 04/13/18 Amlodipine Besylate [Norvasc -] 5 mg PO DAILY #90 tablet 08/26/18 Olanzapine [Zyprexa -] 10 mg PO DAILY 10/08/18 Pantoprazole Sodium [Protonix -] 20 mg PO DAILY 10/08/18 Folic Acid - 1 mg PO DAILY tablet 10/19/18 Lamivudine [Lamivudine Hbv] 100 mg PO DAILY 11/01/18 Amoxicillin - [Amoxicillin 500mg Capsule -] 500 mg PO TID #21 capsule 11/24/18 Quetiapine Fumarate [Seroquel -] 25 mg PO HS 12/21/18 PMH Anemia: Yes (pancytopenia) Cancer: (Chronic Lymphocytic leukemia) Cardiac Disorders: (CHF) CHF: Yes GI Disorders: Yes (GERD, gallstones, diverticulosis, GIB) Disorders: Yes (UTIs, VRE bacteremia, large kidney stones) HTN: Yes Psychiatric Problems: Yes (possibe dementia) - Psycho Social/Smoking Cessation Hx Smoking History: Never smoked - Vital Signs Last Vital Signs Temp Pulse Resp BP Pulse Ox 98.5 F 87 17 142/72 97 12/26/18 07:52 12/26/18 07:52 12/26/18 07:52 12/26/18 07:52 12/26/18 07:52 - Physical Exam Comments: GENERAL: ill-appearing, elderly, a bit frail, A/Ox4, no distress, answers questions appropriately CARDIOVASCULAR: regular rate/rhythm, normal S1S2, no MGR, strong peripheral pulses, capillary refill <2 seconds, extremities wwp, no edema LUNGS/RESPIRATORY: no respiratory distress, CTAB GI/ABDOMEN: symmetric kbhi-lt-clid, normoactive BS, soft, no ttp, no midline pulsatile masses EXTREMITIES: no muscle atrophy, no acute deformity SKIN: warm and dry, pale, no jaundice, no rash, no bruising, no skin breakdown, 0.5x0.5cm skin avulsion at the site of a skin biopsy to LUQ A/P 73YOF with CLL, last rituximab in August 2018, with neutropenia s/p Neupogen injection on 12/21/18, who p/w fever, nausea, dry heaves, no appetite, and lightheadedness worsening for the past few days. Discussed with daughter at bed side On ceftriaxone For 2 units PRBCs ID follow up will follow clinical course
[2018-12-27 06:41] LABS: BASO % 0.6 % (0-2.0); EOS % 2.3 % (0-4.5); HEMATOCRIT 23.9 % (32.4-45.2); HEMOGLOBIN 8.1 GM/dL (10.7-15.3); LYMPH % 39.3 % (8-40); MCH 25.9 pg (25.7-33.7); MCHC 33.9 g/dl (32.0-36.0); MEAN CELL VOLUME 76.3 fl (80-96); MEAN PLT VOLUME 6.7 fl (7.5-11.1); NEUT % 55.8 % (42.8-82.8); PLATELET COUNT 98 K/MM3 (134-434); RBC 3.13 M/mm3 (3.60-5.2); RDW 23.3 % (11.6-15.6); WHITE BLOOD COUNT 3.5 K/mm3 (4.0-10.0)
[2018-12-27 07:11] LABS: ALBUMIN 2.9 g/dl (3.4-5.0); BILIRUBIN,TOTAL 1.6 mg/dL (0.2-1); BLOOD UREA NITROGEN 17.1 mg/dL (7-18); CALCIUM 8.6 mg/dL (8.5-10.1); CREATININE 1.2 mg/dL (0.55-1.3); POTASSIUM 3.6 mmol/L (3.5-5.1); TOT PROT 5.5 g/dl (6.4-8.2)
[2018-12-27] MEDS ORDERED: PT OWN MED DRAWER 7, Y5N ONE (09:19)
[2018-12-27] MEDS: ALLOPURINOL 300 MG TABLET (FP) PO SCH (09:37)
[2018-12-27] MEDS: FOLIC ACID 1 MG TABLET (FP) PO SCH (09:38)
[2018-12-27] MEDS: OLANZapine 10 MG TABLET PO SCH (09:38)
[2018-12-27] MEDS: PANTOPRAZOLE 20 MG TABLET (FP) PO SCH (09:38)
[2018-12-27] MEDS: amLODIPine BESYLATE 5 MG TABLET (FP) PO SCH (09:38)
[2018-12-27] MEDS: lamiVUDine 10 MG/1 ML BULK BOTTLE PO SCH (09:39)
[2018-12-27] MEDS ORDERED: cefTRIAXone SODIUM 1 GM VIAL ONE (09:58)
[2018-12-27] MEDS ORDERED: DEXTROSE 5%-WATER - 50 ML IVPB ONE (09:58)
[2018-12-27] MEDS: CEFTRIAXONE 1 GM in DEXTROSE 5%-WATER - 50 ML IVPB SCH (10:02)
--- NOTE | 2018-12-27 10:13 | EKG ---
Test Reason : Blood Pressure : / mmHG Vent. Rate : 088 BPM Atrial Rate : 088 BPM P-R Int : 134 ms QRS Dur : 082 ms QT Int : 360 ms P-R-T Axes : 062 -30 050 degrees QTc Int : 435 ms POOR DATA QUALITY, INTERPRETATION MAY BE ADVERSELY AFFECTED NORMAL SINUS RHYTHM LEFT AXIS DEVIATION ABNORMAL ECG WHEN COMPARED WITH ECG OF 21-NOV-2018 09:05, NO SIGNIFICANT CHANGE WAS FOUND Confirmed by Fausto Francisco MD ([id number]) on 12/27/2018 10:13:22 AM Referred By: Confirmed By:Fausto Francisco MD
[2018-12-27 10:23] LABS: ANISOCYTOSIS 0; MACROCYTOSIS 0; PLATELET ESTIMATE DECREASED
--- NOTE | 2018-12-27 11:29 | PN ---
Progress Note, Physician History of Present Illness: BC + GPCCL 4/4 BOTTLES OOB IN CHAIR NO COMPLAINTS TEMPS DOWN AFEBRILE LEUKOPENIC/ PANCYTOPENIC - Current Medication List Current Medications: Active Medications Acetaminophen (Tylenol -) 650 mg PO Q6H PRN PRN Reason: FEVER Last Admin: 12/26/18 21:13 Dose: 650 mg Allopurinol (Zyloprim -) 300 mg PO DAILY [facility] Last Admin: 12/27/18 09:37 Dose: 300 mg Amlodipine Besylate (Norvasc -) 5 mg PO DAILY [facility] Last Admin: 12/27/18 09:38 Dose: 5 mg Folic Acid (Folic Acid -) 1 mg PO DAILY [facility] Last Admin: 12/27/18 09:38 Dose: 1 mg Ceftriaxone Sodium 1 gm/ (Dextrose) 50 mls @ 100 mls/hr IVPB DAILY [facility] Last Admin: 12/27/18 10:02 Dose: 100 mls/hr Daptomycin 350 mg/ Sodium (Chloride) 50 mls @ 50 mls/hr IVPB DAILY [facility]; Protocol Lamivudine (Epivir Oral Solution -) 100 mg PO DAILY [facility] Last Admin: 12/27/18 09:39 Dose: 100 mg Olanzapine (Zyprexa -) 10 mg PO DAILY [facility] Last Admin: 12/27/18 09:38 Dose: 10 mg Pantoprazole Sodium (Protonix -) 20 mg PO DAILY [facility] Last Admin: 12/27/18 09:38 Dose: 20 mg Quetiapine Fumarate (Seroquel -) 25 mg PO HS [facility] Last Admin: 12/26/18 21:13 Dose: 25 mg - Objective Vital Signs: Vital Signs Temperature 99.3 F 12/27/18 06:00 Pulse Rate 91 H 12/27/18 06:00 Respiratory Rate 18 12/27/18 06:00 Blood Pressure 142/69 12/27/18 06:00 O2 Sat by Pulse Oximetry (%) 97 12/26/18 21:00 Constitutional: Yes: No Distress Cardiovascular: Yes: Regular Rate and Rhythm, S1, S2 Respiratory: Yes: CTA Bilaterally Gastrointestinal: Yes: Normal Bowel Sounds, Soft. No: Tenderness Extremities: Yes: Other (+ ERYTHEMA DISTAL L LE) Edema: Yes Labs: CBC, BMP 12/27/18 05:30 12/27/18 05:30 INR, PTT INR 1.23 (0.83-1.09) H 12/26/18 10:12 Assessment/Plan STAPH BACTEREMIA CELLULITIS L LE PANCYTOPENIA CLL VANCOMYCIN ALLERGY AWAIT C/S DAPTOMYCIN
--- NOTE | 2018-12-27 11:47 | PN ---
Progress Note, Physician Chief Complaint: OOB to chair NAD afebrile no c/o feels well wants to go home - Current Medication List Current Medications: Active Medications Acetaminophen (Tylenol -) 650 mg PO Q6H PRN PRN Reason: FEVER Last Admin: 12/26/18 21:13 Dose: 650 mg Allopurinol (Zyloprim -) 300 mg PO DAILY [facility] Last Admin: 12/27/18 09:37 Dose: 300 mg Amlodipine Besylate (Norvasc -) 5 mg PO DAILY [facility] Last Admin: 12/27/18 09:38 Dose: 5 mg Folic Acid (Folic Acid -) 1 mg PO DAILY [facility] Last Admin: 12/27/18 09:38 Dose: 1 mg Ceftriaxone Sodium 1 gm/ (Dextrose) 50 mls @ 100 mls/hr IVPB DAILY [facility] Last Admin: 12/27/18 10:02 Dose: 100 mls/hr Daptomycin 350 mg/ Sodium (Chloride) 50 mls @ 50 mls/hr IVPB DAILY [facility]; Protocol Lamivudine (Epivir Oral Solution -) 100 mg PO DAILY [facility] Last Admin: 12/27/18 09:39 Dose: 100 mg Olanzapine (Zyprexa -) 10 mg PO DAILY [facility] Last Admin: 12/27/18 09:38 Dose: 10 mg Pantoprazole Sodium (Protonix -) 20 mg PO DAILY [facility] Last Admin: 12/27/18 09:38 Dose: 20 mg Quetiapine Fumarate (Seroquel -) 25 mg PO HS [facility] Last Admin: 12/26/18 21:13 Dose: 25 mg - Objective Vital Signs: Vital Signs Temperature 99.3 F 12/27/18 06:00 Pulse Rate 91 H 12/27/18 06:00 Respiratory Rate 18 12/27/18 06:00 Blood Pressure 142/69 12/27/18 06:00 O2 Sat by Pulse Oximetry (%) 97 12/26/18 21:00 Constitutional: Yes: No Distress, Calm Eyes: Yes: Conjunctiva Clear HENT: Yes: Atraumatic Neck: Yes: Supple Cardiovascular: Yes: Regular Rate and Rhythm Respiratory: Yes: CTA Bilaterally Gastrointestinal: Yes: Soft. No: Tenderness Genitourinary: No: Hematuria Musculoskeletal: No: Joint Stiffness, Joint Swelling Extremities: Yes: Erythema (L ankle). No: Cold, Cool Edema: No Integumentary: Yes: Rash (L ankle) Neurological: Yes: WNL, Alert, Oriented ...Motor Strength: WNL Psychiatric: Yes: WNL, Alert, Oriented. No: Agitated, Suicidal Ideation Labs: CBC, BMP 12/27/18 05:30 12/27/18 05:30 INR, PTT INR 1.23 (0.83-1.09) H 12/26/18 10:12 - ....Imaging Other: Report Reviewed Assessment/Plan 73YOF PMHx Hep B, CLL pancytopenia (received injection of Neupogen on Wednesday) , GI bleed, HTN presenting for fever, vomited once, general weakness and lightheadedness, L ankle rash r/o cellulitis, sepsis positive blood cx - neutropenic sepsis IV ATB per ID ID and heme onc f/u; falls pfx d/w pt do not get OOB alone prognosis guarded d./w pt and d/w staff pt agreed with plan
[2018-12-27] MEDS: DAPTOMYCIN 350 MG in SODIUM CHLORIDE 50 ML IVPB SCH (11:59)
--- NOTE | 2018-12-27 17:51 | PN ---
Progress Note (short form) - Note Progress Note: Patient seen and examined Begun on antibiotics with fevers, neutropenia and prior history of CLL with vancomycin allergy Last Vital Signs Temp Pulse Resp BP Pulse Ox 99.8 F H 88 20 129/72 97 12/27/18 17:19 12/27/18 17:19 12/27/18 17:19 12/27/18 17:19 12/26/18 21:00 HEENT: FELIBERTO, EOM Intact Oropharynx: No thrush, No mucositis Neck: Supple Nodes: Without adenopathy Breasts: Without masses Cor: RSR, No murmurs, No gallops Lungs: Clear to P&A Abd: Soft, Normal bowel sounds, No organomegaly Ext:No significant edema Skin: erythema- distal LLE, Integument intact CBC, BMP 12/27/18 05:30 12/27/18 05:30 Current Medications Generic Name Dose Route Start Last Admin Trade Name Freq PRN Reason Stop Dose Admin Acetaminophen 650 mg 12/26/18 21:04 12/26/18 21:13 Tylenol - PO 650 mg Q6H PRN Administration FEVER Allopurinol 300 mg 12/27/18 10:00 12/27/18 09:37 Zyloprim - PO 300 mg DAILY [facility] Administration Amlodipine Besylate 5 mg 12/27/18 10:00 12/27/18 09:38 Norvasc - PO 5 mg DAILY [facility] Administration Folic Acid 1 mg 12/27/18 10:00 12/27/18 09:38 Folic Acid - PO 1 mg DAILY [facility] Administration Ceftriaxone Sodium 1 gm/ 50 mls @ 100 mls/hr 12/27/18 10:00 12/27/18 10:02 Dextrose IVPB 100 mls/hr DAILY [facility] Administration Daptomycin 350 mg/ Sodium 50 mls @ 50 mls/hr 12/27/18 10:00 12/27/18 11:59 Chloride IVPB 50 mls/hr DAILY [facility] Administration Protocol Lamivudine 100 mg 12/27/18 10:00 12/27/18 09:39 Epivir Oral Solution - PO 100 mg DAILY [facility] Administration Olanzapine 10 mg 12/27/18 10:00 12/27/18 09:38 Zyprexa - PO 10 mg DAILY [facility] Administration Pantoprazole Sodium 20 mg 12/27/18 10:00 12/27/18 09:38 Protonix - PO 20 mg DAILY [facility] Administration Quetiapine Fumarate 25 mg 12/26/18 22:00 12/26/18 21:13 Seroquel - PO 25 mg HS [facility] Administration CLL Hypogammaglobulinemia Fevers, Neutropenia Vancomycin allergy Hx GI bleeding s/p sphincterotomy Plan : Blood cultures via port Check quantitative immunoglobulins Monitor CBC
[2018-12-27] MEDS: QUEtiapine FUMARATE 25 MG TABLET (FP) PO SCH (22:17)
[2018-12-28 06:50] LABS: BASO % 0.7 % (0-2.0); EOS % 2.2 % (0-4.5); HEMATOCRIT 21.5 % (32.4-45.2); HEMOGLOBIN 7.2 GM/dL (10.7-15.3); LYMPH % 42.7 % (8-40); MCH 25.4 pg (25.7-33.7); MCHC 33.2 g/dl (32.0-36.0); MEAN CELL VOLUME 76.3 fl (80-96); MEAN PLT VOLUME 6.5 fl (7.5-11.1); MONO % 1.4 % (3.8-10.2); PLATELET COUNT 87 K/MM3 (134-434); RBC 2.82 M/mm3 (3.60-5.2); RDW 23.6 % (11.6-15.6); WHITE BLOOD COUNT 3.4 K/mm3 (4.0-10.0)
[2018-12-28 07:28] LABS: ALBUMIN 2.7 g/dl (3.4-5.0); BLOOD UREA NITROGEN 19.2 mg/dL (7-18); CALCIUM 8.8 mg/dL (8.5-10.1); CREATININE 1.1 mg/dL (0.55-1.3); POTASSIUM 3.6 mmol/L (3.5-5.1); TOT PROT 5.1 g/dl (6.4-8.2)
[2018-12-28] MEDS ORDERED: cefTRIAXone SODIUM 1 GM VIAL ONE (09:11)
[2018-12-28] MEDS ORDERED: PT OWN MED DRAWER 7, Y5N ONE (09:11)
[2018-12-28] MEDS ORDERED: DEXTROSE 5%-WATER - 50 ML IVPB ONE (09:11)
[2018-12-28] MEDS: FOLIC ACID 1 MG TABLET (FP) PO SCH (09:17)
[2018-12-28] MEDS: lamiVUDine 10 MG/1 ML BULK BOTTLE PO SCH (09:17)
[2018-12-28] MEDS: OLANZapine 10 MG TABLET PO SCH (09:18)
[2018-12-28] MEDS: PANTOPRAZOLE 20 MG TABLET (FP) PO SCH (09:18)
[2018-12-28] MEDS: amLODIPine BESYLATE 5 MG TABLET (FP) PO SCH (09:18)
[2018-12-28] MEDS: ALLOPURINOL 300 MG TABLET (FP) PO SCH (09:18)
[2018-12-28] MEDS: CEFTRIAXONE 1 GM in DEXTROSE 5%-WATER - 50 ML IVPB SCH (09:19)
[2018-12-28] MEDS: DAPTOMYCIN 350 MG in SODIUM CHLORIDE 50 ML IVPB SCH (10:21)
--- NOTE | 2018-12-28 11:08 | PN ---
Progress Note, Physician Chief Complaint: OOB to chair no co HG 7 PLT 87 afebrile VSS - Current Medication List Current Medications: Active Medications Acetaminophen (Tylenol -) 650 mg PO Q6H PRN PRN Reason: FEVER Last Admin: 12/26/18 21:13 Dose: 650 mg Allopurinol (Zyloprim -) 300 mg PO DAILY [facility] Last Admin: 12/28/18 09:18 Dose: 300 mg Amlodipine Besylate (Norvasc -) 5 mg PO DAILY [facility] Last Admin: 12/28/18 09:18 Dose: 5 mg Folic Acid (Folic Acid -) 1 mg PO DAILY [facility] Last Admin: 12/28/18 09:17 Dose: 1 mg Ceftriaxone Sodium 1 gm/ (Dextrose) 50 mls @ 100 mls/hr IVPB DAILY [facility] Last Admin: 12/28/18 09:19 Dose: 100 mls/hr Daptomycin 350 mg/ Sodium (Chloride) 50 mls @ 50 mls/hr IVPB DAILY [facility]; Protocol Last Admin: 12/28/18 10:21 Dose: 50 mls/hr Lamivudine (Epivir Oral Solution -) 100 mg PO DAILY [facility] Last Admin: 12/28/18 09:17 Dose: 100 mg Olanzapine (Zyprexa -) 10 mg PO DAILY [facility] Last Admin: 12/28/18 09:18 Dose: 10 mg Pantoprazole Sodium (Protonix -) 20 mg PO DAILY [facility] Last Admin: 12/28/18 09:18 Dose: 20 mg Quetiapine Fumarate (Seroquel -) 25 mg PO HS [facility] Last Admin: 12/27/18 22:17 Dose: 25 mg - Objective Vital Signs: Vital Signs Temperature 98.8 F 12/28/18 09:50 Pulse Rate 70 12/28/18 09:50 Respiratory Rate 20 12/28/18 09:50 Blood Pressure 130/64 12/28/18 09:50 O2 Sat by Pulse Oximetry (%) 98 12/28/18 05:07 Constitutional: Yes: No Distress, Calm Eyes: Yes: Conjunctiva Clear HENT: Yes: Atraumatic Neck: Yes: Supple Cardiovascular: Yes: Regular Rate and Rhythm Respiratory: Yes: CTA Bilaterally Gastrointestinal: Yes: Soft. No: Tenderness Genitourinary: No: Hematuria Musculoskeletal: No: Joint Stiffness, Joint Swelling Extremities: No: Cold, Cool Edema: No Integumentary: Yes: Rash (L ankle) Neurological: Yes: WNL, Alert, Oriented ...Motor Strength: WNL Psychiatric: Yes: WNL, Alert, Oriented. No: Agitated, Suicidal Ideation Labs: CBC, BMP 12/28/18 06:28 12/28/18 06:28 INR, PTT INR 1.23 (0.83-1.09) H 12/26/18 10:12 - ....Imaging Other: Report Reviewed Assessment/Plan 73YOF PMHx Hep B, CLL pancytopenia (received injection of Neupogen on Wednesday) , GI bleed, HTN presenting for fever, vomited once, general weakness and lightheadedness, L ankle rash r/o cellulitis, sepsis positive blood cx - neutropenic sepsis IV ATB per ID Hg 7 transfuse 2 U PRBC f./u labs ID and heme onc f/u; falls pfx d/w pt do not get OOB alone prognosis guarded d./w pt and d/w staff pt agreed with plan
[2018-12-28 12:18] LABS: ANISOCYTOSIS 1+; MACROCYTOSIS 1+; OVALOCYTE 1+; PLATELET ESTIMATE DECREASED
--- NOTE | 2018-12-28 14:12 | PN ---
Progress Note (short form) - Note Progress Note: no complaints oob in chair receiving blood transfusion Vital Signs Period Temp Pulse Resp BP Sys/Borjas Pulse Ox Last 24 Hr 98.8 F-99.8 F 70-98 20-20 112-144/56-78 98-98 cor-rrr lungs decreased bs at bases abd soft,nt ext erythema LLE- no warmth noted today port site ecchymotic CBC, BMP 12/28/18 06:28 12/28/18 06:28 Microbiology 12/26/18 09:00 Blood - Peripheral Venous Blood Culture - Preliminary Staphylococcus Latex Coag Pos Staphylococcus Coagulase Neg Pending Organism 12/26/18 19:00 Urine - Urine Clean Catch Urine Culture - Final Normal Urogenital Claudia 12/26/18 09:30 Blood - Peripheral Venous Blood Culture - Preliminary Pending Organism Current Medications Acetaminophen (Tylenol -) 650 mg PO Q6H PRN PRN Reason: FEVER Last Admin: 12/26/18 21:13 Dose: 650 mg Allopurinol (Zyloprim -) 300 mg PO DAILY [facility] Last Admin: 12/28/18 09:18 Dose: 300 mg Amlodipine Besylate (Norvasc -) 5 mg PO DAILY [facility] Last Admin: 12/28/18 09:18 Dose: 5 mg Folic Acid (Folic Acid -) 1 mg PO DAILY [facility] Last Admin: 12/28/18 09:17 Dose: 1 mg Ceftriaxone Sodium 1 gm/ (Dextrose) 50 mls @ 100 mls/hr IVPB DAILY [facility] Last Admin: 12/28/18 09:19 Dose: 100 mls/hr Daptomycin 350 mg/ Sodium (Chloride) 50 mls @ 50 mls/hr IVPB DAILY [facility]; Protocol Last Admin: 12/28/18 10:21 Dose: 50 mls/hr Lamivudine (Epivir Oral Solution -) 100 mg PO DAILY [facility] Last Admin: 12/28/18 09:17 Dose: 100 mg Olanzapine (Zyprexa -) 10 mg PO DAILY [facility] Last Admin: 12/28/18 09:18 Dose: 10 mg Pantoprazole Sodium (Protonix -) 20 mg PO DAILY [facility] Last Admin: 12/28/18 09:18 Dose: 20 mg Quetiapine Fumarate (Seroquel -) 25 mg PO HS [facility] Last Admin: 12/27/18 22:17 Dose: 25 mg a/p gram positive bacteremia-continue daptomycin day ##2, d/c ceftriaxone cellulitis LLE Pyuria-probably chronic, history of staghorn calculi-urine culture negative CLL anemia history of leukopenia- not neutropenic continue daptomycin day #2 repeat blood cultures pending echo Problem List - Problems (1) Fever Code(s): R50.9 - FEVER, UNSPECIFIED Qualifiers: Fever type: unspecified Qualified Code(s): R50.9 - Fever, unspecified (2) Anemia Code(s): D64.9 - ANEMIA, UNSPECIFIED Qualifiers: Anemia type: unspecified type Qualified Code(s): D64.9 - Anemia, unspecified (3) Chronic lymphocytic leukemia Code(s): C91.90 - LYMPHOID LEUKEMIA, UNSPECIFIED NOT HAVING ACHIEVED REMISSION (4) UTI (urinary tract infection) Code(s): N39.0 - URINARY TRACT INFECTION, SITE NOT SPECIFIED Qualifiers: Urinary tract infection type: site unspecified Hematuria presence: with hematuria Qualified Code(s): N39.0 - Urinary tract infection, site not specified; R31.9 - Hematuria, unspecified (5) Cellulitis Code(s): L03.90 - CELLULITIS, UNSPECIFIED
--- NOTE | 2018-12-28 16:21 | ECHO ---
Name: AYLEEN GILMORE Exam:Adult Echocardiogram Study Date: 12/28/2018 03:00 PM Age: 73 yrs Reason For Study: BACTEREMIA R/O ENDOCARDITIS Height: 62 in Weight: 121 lb BSA: 1.5 m2 MMode/2D Measurements & Calculations IVSd: 0.93 cm Ao root diam: 2.6 cm LVIDd: 4.7 cm LA dimension: 3.2 cm LVIDs: 3.1 cm LVPWd: 0.81 cm EDV(Teich): 103.0 ml LVOT diam: 2.1 cm ESV(Teich): 36.7 ml Doppler Measurements & Calculations MV E max jordon: 64.7 cm/sec Ao V2 max: 177.0 cm/sec MV A max jordon: 86.4 cm/sec Ao max P.5 mmHg MV E/A: 0.75 Ao V2 mean: 136.4 cm/sec MV dec time: 0.19 sec Ao mean P.1 mmHg Ao V2 VTI: 37.9 cm AYAAN(I,D): 1.9 cm2 AYAAN(V,D): 2.1 cm2 LV V1 max P.5 mmHg MR max jordon: 232.3 cm/sec LV V1 mean P.5 mmHg MR max P.6 mmHg LV V1 max: 105.6 cm/sec LV V1 mean: 75.6 cm/sec LV V1 VTI: 21.0 cm SV(LVOT): 72.8 ml TR max jordon: 243.2 cm/sec TR max P.7 mmHg Med Peak E' Jordon: 4.3 cm/sec Med E/e': 14.9 Lat Peak E' Jordon: 7.9 cm/sec Lat E/e': 8.2 Procedure A two-dimensional transthoracic echocardiogram with color flow and Doppler was performed. Left Ventricle The left ventricular size, thickness and function are normal. The left ventricular ejection fraction is normal. Left Ventricular Filling pattern is normal for age. The left ventricular wall motion is ibeth l. Right Ventricle The right ventricle is normal in size and function. Atria Normal left and right atrial size and function. Mitral Valve There is mild mitral valve thickening. There is no mitral valve stenosis. There is trace to mild mitr al regurgitation. Tricuspid Valve There is mild tricuspid valve thickening. There is no tricuspid stenosis. There is mild tricuspid regurgitation. Right ventricular systolic pressure is normal. Aortic Valve The aortic valve is not well visualized. No hemodynamically significant valvular aortic stenosis. No aortic regurgitation is present. Pulmonic Valve The pulmonic valve is not well visualized. Great Vessels The aortic root is normal size. Pericardium/Pleura There is no pericardial effusion. Interpretation Summary Clinical correlation is recommended. Would consider a transesophageal echocardiogram if clinically in dicated. TDS consider ROBERT if clinical suspicion of I/E is high. The left ventricular size, thickness and funct ion are normal The left ventricular ejection fraction is normal. The left ventricular wall motion is normal. There is mild tricuspid regurgitation. Right ventricular systolic pressure is normal. There is trace to mild mitral regurgitation. Left Ventricular Filling pattern is normal for age. Clinical correlation is recommended. There is mild mitral valve thickening. There is mild tricuspid valve thickening. The aortic valve is not well visualized. Would consider a transesophageal echocardiogram if clinically indicated. TDS consider ROBERT if clinical suspicion of I/E is high. MD Aaron Wick 12/28/2018 04:20 PM
--- NOTE | 2018-12-28 16:35 | CON.CARD ---
Consult Consult Specialty:: Cardiology Reason for Consultation:: r/o I/E - History of Present Illness History of Present Illness: The patient the 73-year-old female with a past medical history of hepatitis B, CLL (last round of rituximab July 2018), pancytopenia (status post neupogen shot on Wednesday), G.I. bleed and hypertension who presented to the emergency department complaining of a three-day history of nausea, vomiting and fever is at home. The history is collected from the patient with the assistance of her daughter at bedside. Patient states that for the past three days she has been feeling nauseous with dry heaves and non-bilious non-bloody vomiting. In addition to this, the patient endorses a fever measure to 103 at home. The patient denies chest pain, shortness of breath, dysuria, abdominal pain or decreased appetite. In the emergency department, she was found to be febrile to 100.3 orally. A urinalysis revealed a positive nitrite, 3+ leukocyte esterase, 2 + blood, and 391 white blood cells. A CBC revealed a leukopenia to 2.8 with an ANC of approximately 14,000. The patient was treated with one dose of ceftriaxone 1 g. Infectious disease and hematology were both consulted. PMH CRI HTN Hyperlipidemia Negative MIBI stress test June 2013 Nephroliyhiasis PAD 50-70 ICA stenosis 2012 - History Source History Provided By: Patient, Medical Record - Past Medical History Cardio/Vascular: Yes: HTN Gastrointestinal: Yes: Diverticulosis (on CT scan), GI Bleed (02/13 post- sphincterotomy bleed) Hepatobiliary: Yes: Cholelithiasis, Choledocholithiasis (with cholangitis 02/13 requring ERCP & sphincterotomy complicated by a post-sphincterotomy bleed ) Renal/: Yes: Renal Calculi ...: No Psych: Yes: Anxiety Musculoskeletal: Yes: Chronic low back pain - Past Surgical History Past Surgical History: Yes: Tonsillectomy, Upper Endoscopy - Alcohol/Substance Use Hx Alcohol Use: No History of Substance Use: reports: None - Smoking History Smoking history: Never smoked Have you smoked in the past 12 months: No Aproximately how many cigarettes per day: 0 - Social History Usual Living Arrangement: With Child ADL: Independent 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 of Recent Travel: No Home Medications - Allergies Allergies/Adverse Reactions: Allergies Allergy/AdvReac Type Severity Reaction Status Date / Time vancomycin AdvReac Verified 12/26/18 07:37 - Home Medications Home Medications: Ambulatory Orders Allopurinol [Zyloprim -] 300 mg PO DAILY #90 tablet 04/13/18 Amlodipine Besylate [Norvasc -] 5 mg PO DAILY #90 tablet 08/26/18 Olanzapine [Zyprexa -] 10 mg PO DAILY 10/08/18 Pantoprazole Sodium [Protonix -] 20 mg PO DAILY 10/08/18 Folic Acid - 1 mg PO DAILY tablet 10/19/18 Lamivudine [Lamivudine Hbv] 100 mg PO DAILY 11/01/18 Quetiapine Fumarate [Seroquel -] 25 mg PO HS 12/21/18 Review of Systems - Review of Systems Constitutional: reports: No Symptoms Eyes: reports: No Symptoms HENT: reports: No Symptoms Neck: reports: No Symptoms Cardiovascular: reports: No Symptoms Respiratory: reports: No Symptoms Gastrointestinal: reports: No Symptoms Genitourinary: reports: No Symptoms Breasts: reports: No Symptoms Reported Musculoskeletal: reports: No Symptoms Integumentary: reports: No Symptoms Neurological: reports: No Symptoms Endocrine: reports: No Symptoms Hematology/Lymphatic: reports: No Symptoms Psychiatric: reports: No Symptoms Vital Signs: Vital Signs Temperature 99.3 F 12/28/18 14:44 Pulse Rate 82 12/28/18 14:44 Respiratory Rate 20 12/28/18 14:44 Blood Pressure 136/53 L 12/28/18 14:44 O2 Sat by Pulse Oximetry (%) 98 12/28/18 05:07 Constitutional: Yes: Well Nourished, No Distress, Calm Eyes: Yes: WNL, Conjunctiva Clear, EOM Intact HENT: Yes: WNL, Atraumatic, Normocephalic Neck: Yes: WNL, Supple, Trachea Midline Respiratory: Yes: WNL, Regular, CTA Bilaterally Gastrointestinal: Yes: WNL, Normal Bowel Sounds Renal/: Yes: WNL Cardiovascular: Yes: WNL, Regular Rate and Rhythm Heart Sounds: Yes: S1, S2 Murmur: Yes: Grade 2 Musculoskeletal: Yes: WNL Extremities: Yes: WNL Integumentary: Yes: WNL Neurological: Yes: WNL, Alert, Oriented ...Motor Strength: WNL Psychiatric: Yes: WNL, Alert, Oriented - Other Data Labs, Other Data: CBC, BMP 12/28/18 06:28 12/28/18 06:28 INR, PTT INR 1.23 (0.83-1.09) H 12/26/18 10:12 Laboratory Tests 12/26/18 12/26/18 12/26/18 09:00 09:00 09:00 WBC 2.8 L RBC 2.61 L Hgb 6.4 L* Hct 18.8 L D MCV 71.9 L MCH 24.6 L MCHC 34.2 RDW 27.0 H Plt Count 104 L D MPV 8.0 Absolute Neuts (auto) Neutrophils % No Result Required. Neutrophils % (Manual) 50.5 Band Neutrophils % 0.0 Lymphocytes % No Result Required. Lymphocytes % (Manual) 32.0 D Monocytes % Monocytes % (Manual) 4 Eosinophils % Eosinophils % (Manual) 5.2 H Basophils % Basophils % (Manual) 0.0 Myelocytes % (Man) 2 D Promyelocytes % (Man) 1 D Blast Cells % (Manual) 4 H D Nucleated RBC % 0 Total Absolute Neuts 1.50 Metamyelocytes 1 D Hypochromia 2+ Platelet Estimate Decreased Polychromasia 1+ Poikilocytosis 2+ Anisocytosis 2+ Microcytosis 1+ Macrocytosis 0 Tear Drop Cells 1+ Ovalocytes Schistocytes PT with INR INR PTT (Actin FS) Sodium Potassium Chloride Carbon Dioxide Anion Gap BUN Creatinine Est GFR (CKD-EPI)AfAm Est GFR (CKD-EPI)NonAf Random Glucose Lactic Acid 0.8 Calcium Total Bilirubin AST ALT Alkaline Phosphatase LD Total Creatine Kinase Troponin I Total Protein Albumin Urine Color Yellow Urine Appearance Cloudy Urine pH 8.5 H D Ur Specific Roy 1.015 Urine Protein 2+ H Urine Glucose (UA) Negative Urine Ketones Negative Urine Blood 2+ H Urine Nitrite Positive H Urine Bilirubin Negative Urine Urobilinogen 0.2 Ur Leukocyte Esterase 3+ H Urine WBC (Auto) 391 Urine RBC (Auto) 29 Urine Casts (Auto) 19 U Epithel Cells (Auto) 1.6 Urine Bacteria (Auto) 3458.1 Blood Type Antibody Screen Crossmatch 12/26/18 12/26/18 12/26/18 10:12 10:12 10:12 WBC RBC Hgb Hct MCV MCH MCHC RDW Plt Count MPV Absolute Neuts (auto) Neutrophils % Neutrophils % (Manual) Band Neutrophils % Lymphocytes % Lymphocytes % (Manual) Monocytes % Monocytes % (Manual) Eosinophils % Eosinophils % (Manual) Basophils % Basophils % (Manual) Myelocytes % (Man) Promyelocytes % (Man) Blast Cells % (Manual) Nucleated RBC % Total Absolute Neuts Metamyelocytes Hypochromia Platelet Estimate Polychromasia Poikilocytosis Anisocytosis Microcytosis Macrocytosis Tear Drop Cells Ovalocytes Schistocytes PT with INR 14.60 H INR 1.23 H PTT (Actin FS) 27.8 Sodium 144 Potassium 3.7 Chloride 110 H Carbon Dioxide 28 Anion Gap 5 L BUN 19.1 H Creatinine 1.3 Est GFR (CKD-EPI)AfAm 47.13 Est GFR (CKD-EPI)NonAf 40.67 Random Glucose 111 H Lactic Acid Calcium 8.5 Total Bilirubin 1.3 H AST 20 ALT 10 L Alkaline Phosphatase 77 LD Total 265 H Creatine Kinase 49 Troponin I < 0.02 Total Protein 5.0 L Albumin 2.8 L Urine Color Urine Appearance Urine pH Ur Specific Roy Urine Protein Urine Glucose (UA) Urine Ketones Urine Blood Urine Nitrite Urine Bilirubin Urine Urobilinogen Ur Leukocyte Esterase Urine WBC (Auto) Urine RBC (Auto) Urine Casts (Auto) U Epithel Cells (Auto) Urine Bacteria (Auto) Blood Type O POSITIVE Antibody Screen Negative Crossmatch See Detail 12/27/18 12/27/18 12/28/18 05:30 05:30 06:28 WBC 3.5 L 3.4 L RBC 3.13 L 2.82 L Hgb 8.1 L 7.2 L Hct 23.9 L D 21.5 L MCV 76.3 L 76.3 L MCH 25.9 25.4 L MCHC 33.9 33.2 RDW 23.3 H 23.6 H Plt Count 98 L 87 L MPV 6.7 L D 6.5 L Absolute Neuts (auto) 1.9 1.8 Neutrophils % 55.8 D 53.0 Neutrophils % (Manual) 50.0 39.8 L Band Neutrophils % 0.0 1.0 Lymphocytes % 39.3 42.7 H Lymphocytes % (Manual) 26.5 32.7 D Monocytes % 2.0 L 1.4 L Monocytes % (Manual) 6 11 H D Eosinophils % 2.3 2.2 Eosinophils % (Manual) 3.9 2.0 Basophils % 0.6 0.7 Basophils % (Manual) 0.0 0.0 Myelocytes % (Man) 4 H D 0 D Promyelocytes % (Man) 0 D 0 Blast Cells % (Manual) 0 D 0 Nucleated RBC % 1 H 0 Total Absolute Neuts Metamyelocytes 1 9 H D Hypochromia 0 1+ Platelet Estimate Decreased Decreased Polychromasia 0 1+ Poikilocytosis 0 3+ Anisocytosis 0 1+ Microcytosis 0 1+ Macrocytosis 0 1+ Tear Drop Cells Ovalocytes 1+ Schistocytes 2+ PT with INR INR PTT (Actin FS) Sodium 143 Potassium 3.6 Chloride 108 H Carbon Dioxide 28 Anion Gap 6 L BUN 17.1 Creatinine 1.2 Est GFR (CKD-EPI)AfAm 51.92 Est GFR (CKD-EPI)NonAf 44.80 Random Glucose 111 H Lactic Acid Calcium 8.6 Total Bilirubin 1.6 H AST 22 ALT 11 L Alkaline Phosphatase 81 LD Total Creatine Kinase Troponin I Total Protein 5.5 L Albumin 2.9 L Urine Color Urine Appearance Urine pH Ur Specific Roy Urine Protein Urine Glucose (UA) Urine Ketones Urine Blood Urine Nitrite Urine Bilirubin Urine Urobilinogen Ur Leukocyte Esterase Urine WBC (Auto) Urine RBC (Auto) Urine Casts (Auto) U Epithel Cells (Auto) Urine Bacteria (Auto) Blood Type Antibody Screen Crossmatch 12/28/18 06:28 WBC RBC Hgb Hct MCV MCH MCHC RDW Plt Count MPV Absolute Neuts (auto) Neutrophils % Neutrophils % (Manual) Band Neutrophils % Lymphocytes % Lymphocytes % (Manual) Monocytes % Monocytes % (Manual) Eosinophils % Eosinophils % (Manual) Basophils % Basophils % (Manual) Myelocytes % (Man) Promyelocytes % (Man) Blast Cells % (Manual) Nucleated RBC % Total Absolute Neuts Metamyelocytes Hypochromia Platelet Estimate Polychromasia Poikilocytosis Anisocytosis Microcytosis Macrocytosis Tear Drop Cells Ovalocytes Schistocytes PT with INR INR PTT (Actin FS) Sodium 142 Potassium 3.6 Chloride 108 H Carbon Dioxide 28 Anion Gap 5 L BUN 19.2 H Creatinine 1.1 Est GFR (CKD-EPI)AfAm 57.68 Est GFR (CKD-EPI)NonAf 49.77 Random Glucose 109 H Lactic Acid Calcium 8.8 Total Bilirubin 1.0 AST 21 ALT 10 L Alkaline Phosphatase 68 LD Total Creatine Kinase Troponin I Total Protein 5.1 L Albumin 2.7 L Urine Color Urine Appearance Urine pH Ur Specific Roy Urine Protein Urine Glucose (UA) Urine Ketones Urine Blood Urine Nitrite Urine Bilirubin Urine Urobilinogen Ur Leukocyte Esterase Urine WBC (Auto) Urine RBC (Auto) Urine Casts (Auto) U Epithel Cells (Auto) Urine Bacteria (Auto) Blood Type Antibody Screen Crossmatch Imaging - Results Chest X-ray: Image Reviewed (no i/e) EKG: Image Reviewed (sr ldea) Problem List - Problems (1) Anemia Code(s): D64.9 - ANEMIA, UNSPECIFIED Qualifiers: Anemia type: unspecified type Qualified Code(s): D64.9 - Anemia, unspecified (2) Chronic lymphocytic leukemia Code(s): C91.90 - LYMPHOID LEUKEMIA, UNSPECIFIED NOT HAVING ACHIEVED REMISSION (3) Fever Code(s): R50.9 - FEVER, UNSPECIFIED Qualifiers: Fever type: unspecified Qualified Code(s): R50.9 - Fever, unspecified (4) Neutropenic fever Code(s): D70.9 - NEUTROPENIA, UNSPECIFIED; R50.81 - FEVER PRESENTING WITH CONDITIONS CLASSIFIED ELSEWHERE (5) Vomiting Code(s): R11.10 - VOMITING, UNSPECIFIED Qualifiers: Vomiting type: unspecified Vomiting Intractability: unspecified Nausea presence: with nausea Qualified Code(s): R11.2 - Nausea with vomiting, unspecified (6) EBER (acute kidney injury) Code(s): N17.9 - ACUTE KIDNEY FAILURE, UNSPECIFIED (7) Allergy to antibiotic Code(s): Z88.1 - ALLERGY STATUS TO OTHER ANTIBIOTIC AGENTS STATUS (8) Altered mental state Code(s): R41.82 - ALTERED MENTAL STATUS, UNSPECIFIED Qualifiers: Altered mental status type: unspecified Qualified Code(s): R41.82 - Altered mental status, unspecified (9) Anxiety disorder Code(s): F41.9 - ANXIETY DISORDER, UNSPECIFIED (10) CKD (chronic kidney disease) Code(s): N18.9 - CHRONIC KIDNEY DISEASE, UNSPECIFIED (11) Cellulitis Code(s): L03.90 - CELLULITIS, UNSPECIFIED (12) Cellulitis, abdominal wall Code(s): L03.311 - CELLULITIS OF ABDOMINAL WALL (13) Choledocholithiasis Code(s): K80.50 - CALCULUS OF BILE DUCT W/O CHOLANGITIS OR CHOLECYST W/O OBST (14) Cholelithiasis Code(s): K80.20 - CALCULUS OF GALLBLADDER W/O CHOLECYSTITIS W/O OBSTRUCTION (15) Chronic ITP (idiopathic thrombocytopenic purpura) Code(s): D69.3 - IMMUNE THROMBOCYTOPENIC PURPURA (16) Colonic thickening Code(s): K63.9 - DISEASE OF INTESTINE, UNSPECIFIED (17) Cough Code(s): R05 - COUGH (18) Cyst of left kidney Code(s): N28.1 - CYST OF KIDNEY, ACQUIRED (19) Diastolic CHF Code(s): I50.30 - UNSPECIFIED DIASTOLIC (CONGESTIVE) HEART FAILURE (20) Diverticulitis Code(s): K57.92 - DVTRCLI OF INTEST, PART UNSP, W/O PERF OR ABSCESS W/O BLEED (21) Epistaxis Code(s): R04.0 - EPISTAXIS (22) GI bleed Code(s): K92.2 - GASTROINTESTINAL HEMORRHAGE, UNSPECIFIED (23) HTN (hypertension) Code(s): I10 - ESSENTIAL (PRIMARY) HYPERTENSION (24) Hemolytic anemia Code(s): D58.9 - HEREDITARY HEMOLYTIC ANEMIA, UNSPECIFIED (25) Hepatitis B Code(s): B19.10 - UNSPECIFIED VIRAL HEPATITIS B WITHOUT HEPATIC COMA (26) Hydronephrosis Code(s): N13.30 - UNSPECIFIED HYDRONEPHROSIS (27) Hyperbilirubinemia Code(s): E80.6 - OTHER DISORDERS OF BILIRUBIN METABOLISM (28) 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 Code(s): D69.59 - OTHER SECONDARY THROMBOCYTOPENIA (29) Jaundice Code(s): R17 - UNSPECIFIED JAUNDICE (30) Leukopenia Code(s): D72.819 - DECREASED WHITE BLOOD CELL COUNT, UNSPECIFIED Qualifiers: Leukopenia type: unspecified Qualified Code(s): D72.819 - Decreased white blood cell count, unspecified (31) Lung nodule, multiple Code(s): R91.8 - OTHER NONSPECIFIC ABNORMAL FINDING OF LUNG FIELD (32) Mesenteric mass Code(s): K63.9 - DISEASE OF INTESTINE, UNSPECIFIED (33) Nephrolithiasis Code(s): N20.0 - CALCULUS OF KIDNEY (34) Neutropenia Code(s): D70.9 - NEUTROPENIA, UNSPECIFIED (35) Otorrhea, right ear Code(s): H92.11 - OTORRHEA, RIGHT EAR (36) PAD (peripheral artery disease) Code(s): I73.9 - PERIPHERAL VASCULAR DISEASE, UNSPECIFIED (37) Pancytopenia Code(s): D61.818 - OTHER PANCYTOPENIA (38) Pneumonia Code(s): J18.9 - PNEUMONIA, UNSPECIFIED ORGANISM (39) Positive blood cultures Code(s): R78.81 - BACTEREMIA (40) SIRS (systemic inflammatory response syndrome) Code(s): R65.10 - SIRS OF NON-INFECTIOUS ORIGIN W/O ACUTE ORGAN DYSFUNCTION (41) Scleral icterus Code(s): R17 - UNSPECIFIED JAUNDICE (42) Staghorn calculus Code(s): N20.0 - CALCULUS OF KIDNEY (43) Thrombocytopenia Code(s): D69.6 - THROMBOCYTOPENIA, UNSPECIFIED (44) Thrombocytopenia Code(s): D69.6 - THROMBOCYTOPENIA, UNSPECIFIED (45) UTI (urinary tract infection) Code(s): N39.0 - URINARY TRACT INFECTION, SITE NOT SPECIFIED Qualifiers: Urinary tract infection type: site unspecified Hematuria presence: with hematuria Qualified Code(s): N39.0 - Urinary tract infection, site not specified; R31.9 - Hematuria, unspecified Assessment/Plan gram positive bacteremia-on daptomycin day ##2 cellulitis LLE Pyuria-probably chronic, history of staghorn calculi-urine culture negative CLL anemia history of leukopenia- not neutropenic ECHO TDS no obvious vegetations. If clinical suspition of i/e is high - may need a ROBERT
[2018-12-28] MEDS: ACETAMINOPHEN 325 MG TABLET (FP) PO PRN (17:28)
--- NOTE | 2018-12-28 19:27 | PN ---
Progress Note (short form) - Note Progress Note: Patient seen and examined Offers no complainst LE with less erythema Preliminary cultures with staph coagulase positive and negative Last Vital Signs Temp Pulse Resp BP Pulse Ox 99.3 F 82 20 136/53 L 98 12/28/18 14:44 12/28/18 14:44 12/28/18 14:44 12/28/18 14:44 12/28/18 05:07 HEENT: FELIBERTO, EOM Intact Cor: RSR, No murmurs, No gallops Lungs: Clear to P&A Abd: Soft, Normal bowel sounds, No organomegaly Ext LE distal erythema left CBC, BMP 12/28/18 06:28 12/28/18 06:28 Current Medications Generic Name Dose Route Start Last Admin Trade Name Freq PRN Reason Stop Dose Admin Acetaminophen 650 mg 12/26/18 21:04 12/28/18 17:28 Tylenol - PO 650 mg Q6H PRN Administration FEVER Allopurinol 300 mg 12/27/18 10:00 12/28/18 09:18 Zyloprim - PO 300 mg DAILY RYAN Administration Amlodipine Besylate 5 mg 12/27/18 10:00 12/28/18 09:18 Norvasc - PO 5 mg DAILY RYAN Administration Folic Acid 1 mg 12/27/18 10:00 12/28/18 09:17 Folic Acid - PO 1 mg DAILY RYAN Administration Daptomycin 350 mg/ Sodium 50 mls @ 50 mls/hr 12/27/18 10:00 12/28/18 10:21 Chloride IVPB 50 mls/hr DAILY RYAN Administration Protocol Lamivudine 100 mg 12/27/18 10:00 12/28/18 09:17 Epivir Oral Solution - PO 100 mg DAILY RYAN Administration Olanzapine 10 mg 12/27/18 10:00 12/28/18 09:18 Zyprexa - PO 10 mg DAILY RYAN Administration Pantoprazole Sodium 20 mg 12/27/18 10:00 12/28/18 09:18 Protonix - PO 20 mg DAILY RYAN Administration Quetiapine Fumarate 25 mg 12/26/18 22:00 12/27/18 22:17 Seroquel - PO 25 mg HS RYAN Administration Impression: CLL Anemia/Leukopenia Staph bacteremia Plan : transfuse p.c/. Work up for hemolysis and check stool guaics AB per ID. Check immunoglobulins
[2018-12-28] MEDS: QUEtiapine FUMARATE 25 MG TABLET (FP) PO SCH (21:44)
[2018-12-29 05:07] LABS: IGA IMMUNOGLOBULIN 93 mg/dL (64-422); IGG QN IMMUNOGLOBULIN 559 mg/dL (700-1600); IGM QN SERUM 42 mg/dL (26-217)
[2018-12-29 07:06] LABS: BASO % 1.1 % (0-2.0); EOS % 3.2 % (0-4.5); HEMATOCRIT 28.2 % (32.4-45.2); HEMOGLOBIN 9.9 GM/dL (10.7-15.3); LYMPH % 38.7 % (8-40); MEAN CELL VOLUME 77.1 fl (80-96); MONO % 4.1 % (3.8-10.2); NEUT % 52.9 % (42.8-82.8); PLATELET COUNT 84 K/MM3 (134-434); RBC 3.65 M/mm3 (3.60-5.2); RDW 20.3 % (11.6-15.6); WHITE BLOOD COUNT 3.5 K/mm3 (4.0-10.0)
[2018-12-29 07:33] LABS: BLOOD UREA NITROGEN 23.6 mg/dL (7-18); CALCIUM 8.5 mg/dL (8.5-10.1); CREATININE 1.1 mg/dL (0.55-1.3); POTASSIUM 3.9 mmol/L (3.5-5.1)
[2018-12-29] MEDS: lamiVUDine 10 MG/1 ML BULK BOTTLE PO SCH (09:30)
[2018-12-29] MEDS: amLODIPine BESYLATE 5 MG TABLET (FP) PO SCH (09:31)
[2018-12-29] MEDS: FOLIC ACID 1 MG TABLET (FP) PO SCH (09:31)
[2018-12-29] MEDS: PANTOPRAZOLE 20 MG TABLET (FP) PO SCH (09:31)
[2018-12-29] MEDS: ALLOPURINOL 300 MG TABLET (FP) PO SCH (09:31)
[2018-12-29] MEDS: OLANZapine 10 MG TABLET PO SCH (09:31)
[2018-12-29] MEDS: DAPTOMYCIN 350 MG in SODIUM CHLORIDE 50 ML IVPB SCH (09:31)
[2018-12-29 11:40] LABS: ANISOCYTOSIS 1+; MACROCYTOSIS 1+; OVALOCYTE 1+; PLATELET ESTIMATE DECREASED; TEAR DROP CELLS 1+
--- NOTE | 2018-12-29 12:04 | PN ---
Progress Note, Physician Chief Complaint: in bed NAD VSS afebile no new c/o - Current Medication List Current Medications: Active Medications Acetaminophen (Tylenol -) 650 mg PO Q6H PRN PRN Reason: FEVER Last Admin: 12/28/18 17:28 Dose: 650 mg Allopurinol (Zyloprim -) 300 mg PO DAILY [facility] Last Admin: 12/29/18 09:31 Dose: 300 mg Amlodipine Besylate (Norvasc -) 5 mg PO DAILY [facility] Last Admin: 12/29/18 09:31 Dose: 5 mg Folic Acid (Folic Acid -) 1 mg PO DAILY [facility] Last Admin: 12/29/18 09:31 Dose: 1 mg Daptomycin 350 mg/ Sodium (Chloride) 50 mls @ 50 mls/hr IVPB DAILY [facility]; Protocol Last Admin: 12/29/18 09:31 Dose: 50 mls/hr Lamivudine (Epivir Oral Solution -) 100 mg PO DAILY [facility] Last Admin: 12/29/18 09:30 Dose: 100 mg Olanzapine (Zyprexa -) 10 mg PO DAILY [facility] Last Admin: 12/29/18 09:31 Dose: 10 mg Pantoprazole Sodium (Protonix -) 20 mg PO DAILY [facility] Last Admin: 12/29/18 09:31 Dose: 20 mg Quetiapine Fumarate (Seroquel -) 25 mg PO HS [facility] Last Admin: 12/28/18 21:44 Dose: 25 mg - Objective Vital Signs: Vital Signs Temperature 98.1 F 12/29/18 09:20 Pulse Rate 80 12/29/18 09:20 Respiratory Rate 20 12/29/18 09:20 Blood Pressure 125/57 L 12/29/18 09:20 O2 Sat by Pulse Oximetry (%) 97 12/28/18 21:00 Constitutional: Yes: No Distress, Calm Eyes: Yes: Conjunctiva Clear HENT: Yes: Atraumatic Neck: Yes: Supple Cardiovascular: Yes: Regular Rate and Rhythm Respiratory: Yes: CTA Bilaterally Gastrointestinal: Yes: Soft. No: Tenderness Genitourinary: No: Hematuria Musculoskeletal: No: Joint Stiffness, Joint Swelling Extremities: No: Cold, Cool Edema: No Integumentary: Yes: Rash (R ankle). No: Pressure Ulcer Neurological: Yes: WNL, Alert, Oriented ...Motor Strength: WNL Psychiatric: Yes: WNL, Alert, Oriented. No: Agitated, Suicidal Ideation Labs: CBC, BMP 12/29/18 06:25 12/29/18 06:25 INR, PTT INR 1.23 (0.83-1.09) H 12/26/18 10:12 - ....Imaging Other: Report Reviewed Assessment/Plan 73YOF PMHx Hep B, CLL pancytopenia (received injection of Neupogen on Wednesday) , GI bleed, HTN presenting for fever, vomited once, general weakness and lightheadedness, L ankle rash r/o cellulitis, sepsis positive blood cx - neutropenic sepsis IV ATB per ID anemia s/p PRBC f./u labs ID and heme onc f/u; falls pfx d/w pt do not get OOB alone prognosis guarded d./w pt and staff
[2018-12-29 12:24] LABS: TOXIC GRANULATION 1+
--- NOTE | 2018-12-29 20:20 | PN ---
Progress Note, Physician History of Present Illness: SEATED IN BED NO COMPLAINTS TEMPS DOWN AFEBRILE PANCYTOPENIC BC ?POLYMICROBIAL - Current Medication List Current Medications: Active Medications Acetaminophen (Tylenol -) 650 mg PO Q6H PRN PRN Reason: FEVER Last Admin: 12/28/18 17:28 Dose: 650 mg Allopurinol (Zyloprim -) 300 mg PO DAILY [facility] Last Admin: 12/29/18 09:31 Dose: 300 mg Amlodipine Besylate (Norvasc -) 5 mg PO DAILY [facility] Last Admin: 12/29/18 09:31 Dose: 5 mg Folic Acid (Folic Acid -) 1 mg PO DAILY [facility] Last Admin: 12/29/18 09:31 Dose: 1 mg Daptomycin 350 mg/ Sodium (Chloride) 50 mls @ 50 mls/hr IVPB DAILY [facility]; Protocol Last Admin: 12/29/18 09:31 Dose: 50 mls/hr Lamivudine (Epivir Oral Solution -) 100 mg PO DAILY [facility] Last Admin: 12/29/18 09:30 Dose: 100 mg Olanzapine (Zyprexa -) 10 mg PO DAILY [facility] Last Admin: 12/29/18 09:31 Dose: 10 mg Pantoprazole Sodium (Protonix -) 20 mg PO DAILY [facility] Last Admin: 12/29/18 09:31 Dose: 20 mg Quetiapine Fumarate (Seroquel -) 25 mg PO HS [facility] Last Admin: 12/28/18 21:44 Dose: 25 mg - Objective Vital Signs: Vital Signs Temperature 98.0 F 12/29/18 17:04 Pulse Rate 76 12/29/18 17:04 Respiratory Rate 18 12/29/18 17:04 Blood Pressure 156/72 12/29/18 17:04 O2 Sat by Pulse Oximetry (%) 97 12/28/18 21:00 Constitutional: Yes: No Distress Cardiovascular: Yes: Regular Rate and Rhythm, S1, S2 Respiratory: Yes: CTA Bilaterally Gastrointestinal: Yes: Normal Bowel Sounds, Soft Extremities: Yes: Other (SL ERYTHEMA L LE) Labs: CBC, BMP 12/29/18 06:25 12/29/18 06:25 INR, PTT INR 1.23 (0.83-1.09) H 12/26/18 10:12 Assessment/Plan POLYMICROBIAL BACTEREMIA CELLULITIS L LE PANCYTOPENIA CLL VANCOMYCIN ALLERGY CONTINUE DAPTOMYCIN
[2018-12-29] MEDS: QUEtiapine FUMARATE 25 MG TABLET (FP) PO SCH (22:00)
--- NOTE | 2018-12-30 07:43 | PN ---
Progress Note, Physician Chief Complaint: VSS afebrile no c/o in good spirits wants to go home - Current Medication List Current Medications: Active Medications Acetaminophen (Tylenol -) 650 mg PO Q6H PRN PRN Reason: FEVER Last Admin: 12/28/18 17:28 Dose: 650 mg Allopurinol (Zyloprim -) 300 mg PO DAILY [facility] Last Admin: 12/29/18 09:31 Dose: 300 mg Amlodipine Besylate (Norvasc -) 5 mg PO DAILY [facility] Last Admin: 12/29/18 09:31 Dose: 5 mg Folic Acid (Folic Acid -) 1 mg PO DAILY [facility] Last Admin: 12/29/18 09:31 Dose: 1 mg Daptomycin 350 mg/ Sodium (Chloride) 50 mls @ 50 mls/hr IVPB DAILY [facility]; Protocol Last Admin: 12/29/18 09:31 Dose: 50 mls/hr Lamivudine (Epivir Oral Solution -) 100 mg PO DAILY [facility] Last Admin: 12/29/18 09:30 Dose: 100 mg Olanzapine (Zyprexa -) 10 mg PO DAILY [facility] Last Admin: 12/29/18 09:31 Dose: 10 mg Pantoprazole Sodium (Protonix -) 20 mg PO DAILY [facility] Last Admin: 12/29/18 09:31 Dose: 20 mg Quetiapine Fumarate (Seroquel -) 25 mg PO HS [facility] Last Admin: 12/29/18 22:00 Dose: 25 mg - Objective Vital Signs: Vital Signs Temperature 98.2 F 12/30/18 05:00 Pulse Rate 73 12/30/18 05:00 Respiratory Rate 18 12/30/18 05:00 Blood Pressure 119/59 L 12/30/18 05:00 O2 Sat by Pulse Oximetry (%) 97 12/28/18 21:00 Constitutional: Yes: No Distress Eyes: Yes: Conjunctiva Clear HENT: Yes: Atraumatic Neck: Yes: Supple Cardiovascular: Yes: Regular Rate and Rhythm Respiratory: Yes: CTA Bilaterally Gastrointestinal: Yes: Soft. No: Tenderness Genitourinary: No: Hematuria Musculoskeletal: No: Joint Stiffness, Joint Swelling Extremities: No: Cold, Cool, Cyanosis Edema: No Integumentary: Yes: Rash (better R ankle) Neurological: Yes: WNL, Alert, Oriented ...Motor Strength: WNL Psychiatric: Yes: WNL, Alert, Oriented. No: Agitated, Suicidal Ideation Labs: CBC, BMP 12/29/18 06:25 12/29/18 06:25 INR, PTT INR 1.23 (0.83-1.09) H 12/26/18 10:12 - ....Imaging Other: Report Reviewed Assessment/Plan 73YOF PMHx Hep B, CLL pancytopenia (received injection of Neupogen on Wednesday) , GI bleed, HTN presenting for fever, vomited once, general weakness and lightheadedness, L ankle rash r/o cellulitis, sepsis positive blood cx - neutropenic sepsis IV ATB per ID anemia s/p PRBC f./u labs ID and heme onc f/u; falls pfx d/w pt do not get OOB alone prognosis guarded d./w pt and staff
[2018-12-30] MEDS ORDERED: PT OWN MED DRAWER 7, Y5N ONE (10:21)
[2018-12-30] MEDS: PANTOPRAZOLE 20 MG TABLET (FP) PO SCH (10:29)
[2018-12-30] MEDS: FOLIC ACID 1 MG TABLET (FP) PO SCH (10:29)
[2018-12-30] MEDS: DAPTOMYCIN 350 MG in SODIUM CHLORIDE 50 ML IVPB SCH (10:29)
[2018-12-30] MEDS: amLODIPine BESYLATE 5 MG TABLET (FP) PO SCH (10:29)
[2018-12-30] MEDS: lamiVUDine 10 MG/1 ML BULK BOTTLE PO SCH (10:30)
[2018-12-30] MEDS: ALLOPURINOL 300 MG TABLET (FP) PO SCH (10:30)
[2018-12-30] MEDS: OLANZapine 10 MG TABLET PO SCH (10:30)
--- NOTE | 2018-12-30 13:26 | PN ---
Progress Note (short form) - Note Progress Note: no complaints oob in chair Vital Signs Period Temp Pulse Resp BP Sys/Borjas Pulse Ox Last 24 Hr 98.0 F-98.5 F 73-80 18-20 119-156/58-72 cor-rrr lungs clear abd soft,nt ext +erythema LLE unchanged port site no erythema CBC, BMP 12/29/18 06:25 12/29/18 06:25 Microbiology 12/26/18 09:30 Blood - Peripheral Venous Blood Culture - Final Staphylococcus Latex Coag Pos Staphylococcus Coagulase Neg 12/26/18 09:00 Blood - Peripheral Venous Blood Culture - Final Mr S Aureus Staphylococcus Warneri Staphylococcus Epidermidis 12/27/18 18:20 Blood - Angelina Cath Blood Culture - Preliminary NO GROWTH OBTAINED AFTER 48 HOURS, INCUBATION TO CONTINUE FOR 3 DAYS. 12/27/18 18:20 Blood - Angelina Cath Blood Culture - Preliminary NO GROWTH OBTAINED AFTER 48 HOURS, INCUBATION TO CONTINUE FOR 3 DAYS. 12/26/18 19:00 Urine - Urine Clean Catch Urine Culture - Final Normal Urogenital Claudia Current Medications Acetaminophen (Tylenol -) 650 mg PO Q6H PRN PRN Reason: FEVER Last Admin: 12/28/18 17:28 Dose: 650 mg Allopurinol (Zyloprim -) 300 mg PO DAILY [facility] Last Admin: 12/30/18 10:30 Dose: 300 mg Amlodipine Besylate (Norvasc -) 5 mg PO DAILY [facility] Last Admin: 12/30/18 10:29 Dose: 5 mg Folic Acid (Folic Acid -) 1 mg PO DAILY [facility] Last Admin: 12/30/18 10:29 Dose: 1 mg Daptomycin 350 mg/ Sodium (Chloride) 50 mls @ 50 mls/hr IVPB DAILY [facility]; Protocol Last Admin: 12/30/18 10:29 Dose: 50 mls/hr Lamivudine (Epivir Oral Solution -) 100 mg PO DAILY [facility] Last Admin: 12/30/18 10:30 Dose: 100 mg Olanzapine (Zyprexa -) 10 mg PO DAILY [facility] Last Admin: 12/30/18 10:30 Dose: 10 mg Pantoprazole Sodium (Protonix -) 20 mg PO DAILY [facility] Last Admin: 12/30/18 10:29 Dose: 20 mg Quetiapine Fumarate (Seroquel -) 25 mg PO HS [facility] Last Admin: 12/29/18 22:00 Dose: 25 mg a/p MRSA 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- still awaiting final ID of second blood culture-suspect secondary to cellulitis- the polymicrobial nature of the blood culture makes this unlikley to be endocarditis, also less likely port as the port culture is negative and site is without erythema echo no obvious vegetations most likely due to cellulitis continue daptomycin day #4- -still awaiting final ID of blood cultures Pyuria-probably chronic, history of staghorn calculi-urine culture negative CLL anemia history of leukopenia- not neutropenic Problem List - Problems (1) Fever Code(s): R50.9 - FEVER, UNSPECIFIED Qualifiers: Fever type: unspecified Qualified Code(s): R50.9 - Fever, unspecified (2) Anemia Code(s): D64.9 - ANEMIA, UNSPECIFIED Qualifiers: Anemia type: unspecified type Qualified Code(s): D64.9 - Anemia, unspecified (3) Chronic lymphocytic leukemia Code(s): C91.90 - LYMPHOID LEUKEMIA, UNSPECIFIED NOT HAVING ACHIEVED REMISSION (4) UTI (urinary tract infection) Code(s): N39.0 - URINARY TRACT INFECTION, SITE NOT SPECIFIED Qualifiers: Urinary tract infection type: site unspecified Hematuria presence: with hematuria Qualified Code(s): N39.0 - Urinary tract infection, site not specified; R31.9 - Hematuria, unspecified (5) Cellulitis Code(s): L03.90 - CELLULITIS, UNSPECIFIED
[2018-12-30] MEDS: QUEtiapine FUMARATE 25 MG TABLET (FP) PO SCH (21:10)
--- NOTE | 2018-12-31 07:22 | PN ---
Progress Note, Physician Chief Complaint: Pt denies chest pain or dyspnea; feels weak. History of Present Illness: 73 yr old woman with PMHx Hep B, CLL (last round of Rituximab was August 2018), pancytopenia (received injection of Neupogen on Wednesday), GI bleed, HTN presenting for nausea/vomiting. Daughter states the patient has been feeling ill for the past 2-3 days and has had fever at home, also has been having nausea and dry heaves, and lightheadedness. She denies chest pain, SOB, dysuria , abdominal pain, or other symptoms. Daughter notes the patient is not acting quite at her mental baseline but this change is very slight. - Current Medication List Current Medications: Active Medications Acetaminophen (Tylenol -) 650 mg PO Q6H PRN PRN Reason: FEVER Last Admin: 12/28/18 17:28 Dose: 650 mg Allopurinol (Zyloprim -) 300 mg PO DAILY [facility] Last Admin: 12/30/18 10:30 Dose: 300 mg Amlodipine Besylate (Norvasc -) 5 mg PO DAILY [facility] Last Admin: 12/30/18 10:29 Dose: 5 mg Folic Acid (Folic Acid -) 1 mg PO DAILY [facility] Last Admin: 12/30/18 10:29 Dose: 1 mg Daptomycin 350 mg/ Sodium (Chloride) 50 mls @ 50 mls/hr IVPB DAILY [facility]; Protocol Last Admin: 12/30/18 10:29 Dose: 50 mls/hr Lamivudine (Epivir Oral Solution -) 100 mg PO DAILY [facility] Last Admin: 12/30/18 10:30 Dose: 100 mg Olanzapine (Zyprexa -) 10 mg PO DAILY [facility] Last Admin: 12/30/18 10:30 Dose: 10 mg Pantoprazole Sodium (Protonix -) 20 mg PO DAILY [facility] Last Admin: 12/30/18 10:29 Dose: 20 mg Quetiapine Fumarate (Seroquel -) 25 mg PO HS [facility] Last Admin: 12/30/18 21:10 Dose: 25 mg - Objective Vital Signs: Vital Signs Temperature 98.5 F 12/31/18 05:00 Pulse Rate 81 12/31/18 05:00 Respiratory Rate 20 12/31/18 05:00 Blood Pressure 140/69 12/31/18 05:00 O2 Sat by Pulse Oximetry (%) 97 12/30/18 09:00 Constitutional: Yes: Calm Eyes: Yes: WNL Cardiovascular: Yes: Regular Rate and Rhythm, S1, S2, S4 Respiratory: Yes: Regular, Tachypnea Gastrointestinal: Yes: Soft ...Rectal Exam: Yes: Deferred Genitourinary: No: Anuria Breast(s): Yes: WNL Musculoskeletal: Yes: Muscle Weakness Extremities: Yes: Cool Edema: No Peripheral Pulses WNL: Yes Integumentary: Yes: Erythema Neurological: Yes: Alert, Oriented, Weakness Psychiatric: Yes: Alert, Oriented Labs: CBC, BMP 12/29/18 06:25 12/29/18 06:25 INR, PTT INR 1.23 (0.83-1.09) H 12/26/18 10:12 - ....Imaging Chest X-ray: Image Reviewed EKG: Image Reviewed (NSR; LAD) Problem List - Problems (1) Chronic lymphocytic leukemia Assessment/Plan: followed by oncology Code(s): C91.90 - LYMPHOID LEUKEMIA, UNSPECIFIED NOT HAVING ACHIEVED REMISSION (2) Fever Code(s): R50.9 - FEVER, UNSPECIFIED Qualifiers: Fever type: unspecified Qualified Code(s): R50.9 - Fever, unspecified (3) HTN (hypertension) Assessment/Plan: On amlodipine; f/u BP serially. ECHO: normal LVEF. Code(s): I10 - ESSENTIAL (PRIMARY) HYPERTENSION (4) Pancytopenia Code(s): D61.818 - OTHER PANCYTOPENIA (5) Bacteremia Assessment/Plan: on antibiotics per ID. ECHO: normal LVEF; no vegetations noted on transthoracic ECHO. Code(s): R78.81 - BACTEREMIA
[2018-12-31 08:28] LABS: MCH 26.7 pg (25.7-33.7); MCHC 33.5 g/dl (32.0-36.0); MEAN CELL VOLUME 79.7 fl (80-96); PLATELET COUNT 105 K/MM3 (134-434); RBC 3.76 M/mm3 (3.60-5.2); RDW 21.4 % (11.6-15.6); WHITE BLOOD COUNT 3.5 K/mm3 (4.0-10.0)
[2018-12-31 08:34] LABS: ALBUMIN 2.9 g/dl (3.4-5.0); BILIRUBIN,TOTAL 0.7 mg/dL (0.2-1); BLOOD UREA NITROGEN 39.4 mg/dL (7-18); CALCIUM 9.6 mg/dL (8.5-10.1); CREATININE 1.2 mg/dL (0.55-1.3); POTASSIUM 4.3 mmol/L (3.5-5.1); TOT PROT 5.3 g/dl (6.4-8.2)
--- NOTE | 2018-12-31 09:06 | PN ---
Progress Note, Physician History of Present Illness: The patient the 73-year-old female with a past medical history of hepatitis B, CLL (last round of rituximab July 2018), pancytopenia (status post neupogen shot on Wednesday), G.I. bleed and hypertension who presented to the emergency department complaining of a three-day history of nausea, vomiting and fever is at home. The history is collected from the patient with the assistance of her daughter at bedside. Patient states that for the past three days she has been feeling nauseous with dry heaves and non-bilious non-bloody vomiting. In addition to this, the patient endorses a fever measure to 103 at home. The patient denies chest pain, shortness of breath, dysuria, abdominal pain or decreased appetite. In the emergency department, she was found to be febrile to 100.3 orally. A urinalysis revealed a positive nitrite, 3+ leukocyte esterase, 2 + blood, and 391 white blood cells. A CBC revealed a leukopenia to 2.8 with an ANC of approximately 14,000. The patient was treated with one dose of ceftriaxone 1 g. Infectious disease and hematology were both consulted. PMH CRI HTN Hyperlipidemia Negative MIBI stress test June 2013 Nephroliyhiasis PAD 50-70 ICA stenosis 2012 - Current Medication List Current Medications: Active Medications Acetaminophen (Tylenol -) 650 mg PO Q6H PRN PRN Reason: FEVER Last Admin: 12/28/18 17:28 Dose: 650 mg Allopurinol (Zyloprim -) 300 mg PO DAILY [facility] Last Admin: 12/30/18 10:30 Dose: 300 mg Amlodipine Besylate (Norvasc -) 5 mg PO DAILY [facility] Last Admin: 12/30/18 10:29 Dose: 5 mg Folic Acid (Folic Acid -) 1 mg PO DAILY [facility] Last Admin: 12/30/18 10:29 Dose: 1 mg Daptomycin 350 mg/ Sodium (Chloride) 50 mls @ 50 mls/hr IVPB DAILY [facility]; Protocol Last Admin: 12/30/18 10:29 Dose: 50 mls/hr Lamivudine (Epivir Oral Solution -) 100 mg PO DAILY [facility] Last Admin: 12/30/18 10:30 Dose: 100 mg Olanzapine (Zyprexa -) 10 mg PO DAILY [facility] Last Admin: 12/30/18 10:30 Dose: 10 mg Pantoprazole Sodium (Protonix -) 20 mg PO DAILY [facility] Last Admin: 12/30/18 10:29 Dose: 20 mg Quetiapine Fumarate (Seroquel -) 25 mg PO HS [facility] Last Admin: 12/30/18 21:10 Dose: 25 mg - Objective Vital Signs: Vital Signs Temperature 98.5 F 12/31/18 05:00 Pulse Rate 81 12/31/18 05:00 Respiratory Rate 20 12/31/18 05:00 Blood Pressure 140/69 12/31/18 05:00 O2 Sat by Pulse Oximetry (%) 97 12/30/18 09:00 Eyes: Yes: WNL, Conjunctiva Clear, EOM Intact HENT: Yes: WNL, Atraumatic, Normocephalic Neck: Yes: WNL, Supple, Trachea Midline Cardiovascular: Yes: WNL, Regular Rate and Rhythm Respiratory: Yes: WNL, Regular, CTA Bilaterally Gastrointestinal: Yes: WNL, Normal Bowel Sounds Genitourinary: Yes: WNL Musculoskeletal: Yes: WNL Extremities: Yes: WNL Edema: No Integumentary: Yes: WNL Neurological: Yes: WNL, Alert, Oriented ...Motor Strength: WNL Psychiatric: Yes: WNL Labs: CBC, BMP 12/31/18 07:13 12/31/18 07:13 INR, PTT INR 1.23 (0.83-1.09) H 12/26/18 10:12 Problem List - Problems (1) Anemia Code(s): D64.9 - ANEMIA, UNSPECIFIED Qualifiers: Anemia type: unspecified type Qualified Code(s): D64.9 - Anemia, unspecified (2) Chronic lymphocytic leukemia Code(s): C91.90 - LYMPHOID LEUKEMIA, UNSPECIFIED NOT HAVING ACHIEVED REMISSION (3) Fever Code(s): R50.9 - FEVER, UNSPECIFIED Qualifiers: Fever type: unspecified Qualified Code(s): R50.9 - Fever, unspecified (4) Neutropenic fever Code(s): D70.9 - NEUTROPENIA, UNSPECIFIED; R50.81 - FEVER PRESENTING WITH CONDITIONS CLASSIFIED ELSEWHERE (5) Vomiting Code(s): R11.10 - VOMITING, UNSPECIFIED Qualifiers: Vomiting type: unspecified Vomiting Intractability: unspecified Nausea presence: with nausea Qualified Code(s): R11.2 - Nausea with vomiting, unspecified (6) EBER (acute kidney injury) Code(s): N17.9 - ACUTE KIDNEY FAILURE, UNSPECIFIED (7) Allergy to antibiotic Code(s): Z88.1 - ALLERGY STATUS TO OTHER ANTIBIOTIC AGENTS STATUS (8) Altered mental state Code(s): R41.82 - ALTERED MENTAL STATUS, UNSPECIFIED Qualifiers: Altered mental status type: unspecified Qualified Code(s): R41.82 - Altered mental status, unspecified (9) Anxiety disorder Code(s): F41.9 - ANXIETY DISORDER, UNSPECIFIED (10) CKD (chronic kidney disease) Code(s): N18.9 - CHRONIC KIDNEY DISEASE, UNSPECIFIED (11) Cellulitis Code(s): L03.90 - CELLULITIS, UNSPECIFIED (12) Cellulitis, abdominal wall Code(s): L03.311 - CELLULITIS OF ABDOMINAL WALL (13) Choledocholithiasis Code(s): K80.50 - CALCULUS OF BILE DUCT W/O CHOLANGITIS OR CHOLECYST W/O OBST (14) Cholelithiasis Code(s): K80.20 - CALCULUS OF GALLBLADDER W/O CHOLECYSTITIS W/O OBSTRUCTION (15) Chronic ITP (idiopathic thrombocytopenic purpura) Code(s): D69.3 - IMMUNE THROMBOCYTOPENIC PURPURA (16) Colonic thickening Code(s): K63.9 - DISEASE OF INTESTINE, UNSPECIFIED (17) Cough Code(s): R05 - COUGH (18) Cyst of left kidney Code(s): N28.1 - CYST OF KIDNEY, ACQUIRED (19) Diastolic CHF Code(s): I50.30 - UNSPECIFIED DIASTOLIC (CONGESTIVE) HEART FAILURE (20) Diverticulitis Code(s): K57.92 - DVTRCLI OF INTEST, PART UNSP, W/O PERF OR ABSCESS W/O BLEED (21) Epistaxis Code(s): R04.0 - EPISTAXIS (22) GI bleed Code(s): K92.2 - GASTROINTESTINAL HEMORRHAGE, UNSPECIFIED (23) HTN (hypertension) Code(s): I10 - ESSENTIAL (PRIMARY) HYPERTENSION (24) Hemolytic anemia Code(s): D58.9 - HEREDITARY HEMOLYTIC ANEMIA, UNSPECIFIED (25) Hepatitis B Code(s): B19.10 - UNSPECIFIED VIRAL HEPATITIS B WITHOUT HEPATIC COMA (26) Hydronephrosis Code(s): N13.30 - UNSPECIFIED HYDRONEPHROSIS (27) Hyperbilirubinemia Code(s): E80.6 - OTHER DISORDERS OF BILIRUBIN METABOLISM (28) 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 Code(s): D69.59 - OTHER SECONDARY THROMBOCYTOPENIA (29) Jaundice Code(s): R17 - UNSPECIFIED JAUNDICE (30) Leukopenia Code(s): D72.819 - DECREASED WHITE BLOOD CELL COUNT, UNSPECIFIED Qualifiers: Leukopenia type: unspecified Qualified Code(s): D72.819 - Decreased white blood cell count, unspecified (31) Lung nodule, multiple Code(s): R91.8 - OTHER NONSPECIFIC ABNORMAL FINDING OF LUNG FIELD (32) Mesenteric mass Code(s): K63.9 - DISEASE OF INTESTINE, UNSPECIFIED (33) Nephrolithiasis Code(s): N20.0 - CALCULUS OF KIDNEY (34) Neutropenia Code(s): D70.9 - NEUTROPENIA, UNSPECIFIED (35) Otorrhea, right ear Code(s): H92.11 - OTORRHEA, RIGHT EAR (36) PAD (peripheral artery disease) Code(s): I73.9 - PERIPHERAL VASCULAR DISEASE, UNSPECIFIED (37) Pancytopenia Code(s): D61.818 - OTHER PANCYTOPENIA (38) Pneumonia Code(s): J18.9 - PNEUMONIA, UNSPECIFIED ORGANISM (39) Positive blood cultures Code(s): R78.81 - BACTEREMIA (40) SIRS (systemic inflammatory response syndrome) Code(s): R65.10 - SIRS OF NON-INFECTIOUS ORIGIN W/O ACUTE ORGAN DYSFUNCTION (41) Scleral icterus Code(s): R17 - UNSPECIFIED JAUNDICE (42) Staghorn calculus Code(s): N20.0 - CALCULUS OF KIDNEY (43) Thrombocytopenia Code(s): D69.6 - THROMBOCYTOPENIA, UNSPECIFIED (44) Thrombocytopenia Code(s): D69.6 - THROMBOCYTOPENIA, UNSPECIFIED (45) UTI (urinary tract infection) Code(s): N39.0 - URINARY TRACT INFECTION, SITE NOT SPECIFIED Qualifiers: Urinary tract infection type: site unspecified Hematuria presence: with hematuria Qualified Code(s): N39.0 - Urinary tract infection, site not specified; R31.9 - Hematuria, unspecified Assessment/Plan - Problems (1) Chronic lymphocytic leukemia Assessment/Plan: followed by oncology Code(s): C91.90 - LYMPHOID LEUKEMIA, UNSPECIFIED NOT HAVING ACHIEVED REMISSION (2) Fever Code(s): R50.9 - FEVER, UNSPECIFIED Qualifiers: Fever type: unspecified Qualified Code(s): R50.9 - Fever, unspecified (3) HTN (hypertension) Assessment/Plan: On amlodipine; f/u BP serially. ECHO: normal LVEF. Code(s): I10 - ESSENTIAL (PRIMARY) HYPERTENSION (4) Pancytopenia Code(s): D61.818 - OTHER PANCYTOPENIA (5) Bacteremia Assessment/Plan: on antibiotics per ID. ECHO: normal LVEF; no vegetations noted on transthoracic ECHO. Code(s): R78.81 - BACTEREMIA
[2018-12-31] MEDS ORDERED: PT OWN MED DRAWER 7, Y5N ONE ×2 (11:05→12:05)
[2018-12-31] MEDS: FOLIC ACID 1 MG TABLET (FP) PO SCH (11:09)
[2018-12-31] MEDS: OLANZapine 10 MG TABLET PO SCH (11:09)
[2018-12-31] MEDS: ALLOPURINOL 300 MG TABLET (FP) PO SCH (11:09)
[2018-12-31] MEDS: DAPTOMYCIN 350 MG in SODIUM CHLORIDE 50 ML IVPB SCH (11:09)
[2018-12-31] MEDS: PANTOPRAZOLE 20 MG TABLET (FP) PO SCH (11:09)
[2018-12-31] MEDS: amLODIPine BESYLATE 5 MG TABLET (FP) PO SCH (11:09)
[2018-12-31] MEDS: lamiVUDine 10 MG/1 ML BULK BOTTLE PO SCH (11:10)
--- NOTE | 2018-12-31 11:12 | PN ---
Progress Note, Physician Chief Complaint: in bed NAD VSS - Current Medication List Current Medications: Active Medications Acetaminophen (Tylenol -) 650 mg PO Q6H PRN PRN Reason: FEVER Last Admin: 12/28/18 17:28 Dose: 650 mg Allopurinol (Zyloprim -) 300 mg PO DAILY [facility] Last Admin: 12/31/18 11:09 Dose: 300 mg Amlodipine Besylate (Norvasc -) 5 mg PO DAILY [facility] Last Admin: 12/31/18 11:09 Dose: 5 mg Folic Acid (Folic Acid -) 1 mg PO DAILY [facility] Last Admin: 12/31/18 11:09 Dose: 1 mg Daptomycin 350 mg/ Sodium (Chloride) 50 mls @ 50 mls/hr IVPB DAILY [facility]; Protocol Last Admin: 12/31/18 11:09 Dose: 50 mls/hr Lamivudine (Epivir Oral Solution -) 100 mg PO DAILY [facility] Last Admin: 12/31/18 11:10 Dose: 100 mg Olanzapine (Zyprexa -) 10 mg PO DAILY [facility] Last Admin: 12/31/18 11:09 Dose: 10 mg Pantoprazole Sodium (Protonix -) 20 mg PO DAILY [facility] Last Admin: 12/31/18 11:09 Dose: 20 mg Quetiapine Fumarate (Seroquel -) 25 mg PO HS [facility] Last Admin: 12/30/18 21:10 Dose: 25 mg - Objective Vital Signs: Vital Signs Temperature 98.5 F 12/31/18 05:00 Pulse Rate 81 12/31/18 05:00 Respiratory Rate 20 12/31/18 05:00 Blood Pressure 140/69 12/31/18 05:00 O2 Sat by Pulse Oximetry (%) 97 12/30/18 09:00 Constitutional: Yes: No Distress Eyes: Yes: Conjunctiva Clear HENT: Yes: Atraumatic Neck: Yes: Supple Cardiovascular: Yes: Regular Rate and Rhythm Respiratory: Yes: CTA Bilaterally Gastrointestinal: Yes: Soft. No: Tenderness Genitourinary: No: Hematuria Musculoskeletal: No: Joint Stiffness, Joint Swelling Extremities: No: Cold, Cool Edema: No Integumentary: Yes: Rash (much better R ankle) Neurological: Yes: WNL, Alert, Oriented ...Motor Strength: WNL Psychiatric: Yes: WNL, Alert, Oriented. No: Agitated, Suicidal Ideation Labs: CBC, BMP 12/31/18 07:13 12/31/18 07:13 INR, PTT INR 1.23 (0.83-1.09) H 12/26/18 10:12 - ....Imaging Other: Report Reviewed Assessment/Plan 73YOF PMHx Hep B, CLL pancytopenia (received injection of Neupogen on Wednesday) , GI bleed, HTN presenting for fever, vomited once, general weakness and lightheadedness, L ankle rash r/o cellulitis, sepsis positive blood cx - neutropenic sepsis IV ATB per ID d/w dr Schulte - 2 vs 4 weeks IV ATB to decide regimen seen by cardiology had echo negative - ROBERT? anemia s/p PRBC f./u labs ID and heme onc f/u; falls pfx d/w pt do not get OOB alone prognosis guarded d./w pt and staff will d/w daughter
[2018-12-31 12:14] LABS: ANISOCYTOSIS 1+; MACROCYTOSIS 1+; OVALOCYTE 1+; PLATELET ESTIMATE DECREASED
--- NOTE | 2018-12-31 13:00 | PN ---
Progress Note (short form) - Note Progress Note: Feels better LLE warm/erythematous AFVSS Cor: RSR, No murmurs, No gallops Lungs: Clear to P&A Abd: Soft, Normal bowel sounds, No organomegaly Ext:No significant edema LLE cellulitis Labs/Meds reviewed A/P 73YOF with CLL, last rituximab in August 2018, with neutropenia s/p Neupogen injection on 12/21/18, who p/w fever, nausea, dry heaves, no appetite, and lightheadedness worsening for the past few days. LLE cellulitis Blood cultures -- MRSA On daptomycin mild thrombocytopenia anemia improved post transfusion
--- NOTE | 2018-12-31 14:45 | PN ---
Progress Note (short form) - Note Progress Note: no complaints oob in chair Vital Signs Period Temp Pulse Resp BP Sys/Borjas Pulse Ox Last 24 Hr 98.0 F-98.5 F 81-88 20-20 130-140/58-80 cor-rrr lungs decreased bs at bases abd soft,nt ext still some erythema of the RLE CBC, BMP 12/31/18 07:13 12/31/18 07:13 Microbiology 12/26/18 09:30 Blood - Peripheral Venous Blood Culture - Preliminary Presumptive Mrsa (Pbp2a Pos) Staphylococcus Coagulase Neg 12/27/18 18:20 Blood - Angelina Cath Blood Culture - Preliminary NO GROWTH OBTAINED AFTER 72 HOURS, INCUBATION TO CONTINUE FOR 2 DAYS. 12/27/18 18:20 Blood - Angelina Cath Blood Culture - Preliminary NO GROWTH OBTAINED AFTER 72 HOURS, INCUBATION TO CONTINUE FOR 2 DAYS. 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- still awaiting final ID of second blood culture-suspect secondary to cellulitis- the polymicrobial nature of the blood culture makes this unlikley to be endocarditis, also less likely port as the port culture is negative and site is without erythema echo no obvious vegetations most likely due to cellulitis continue daptomycin day #5- -still awaiting final ID of blood cultures Pyuria-probably chronic, history of staghorn calculi-urine culture negative CLL anemia history of leukopenia- not neutropenic d/w dr herrera would like to complete 4 weeks of daptomycin (vanco allergy, cannot use zyvox) if possible will need snf placement Problem List - Problems (1) Fever Code(s): R50.9 - FEVER, UNSPECIFIED Qualifiers: Fever type: unspecified Qualified Code(s): R50.9 - Fever, unspecified (2) Anemia Code(s): D64.9 - ANEMIA, UNSPECIFIED Qualifiers: Anemia type: unspecified type Qualified Code(s): D64.9 - Anemia, unspecified (3) Chronic lymphocytic leukemia Code(s): C91.90 - LYMPHOID LEUKEMIA, UNSPECIFIED NOT HAVING ACHIEVED REMISSION (4) UTI (urinary tract infection) Code(s): N39.0 - URINARY TRACT INFECTION, SITE NOT SPECIFIED Qualifiers: Urinary tract infection type: site unspecified Hematuria presence: with hematuria Qualified Code(s): N39.0 - Urinary tract infection, site not specified; R31.9 - Hematuria, unspecified (5) Cellulitis Code(s): L03.90 - CELLULITIS, UNSPECIFIED
--- NOTE | 2018-12-31 19:13 | PN ---
Progress Note (short form) - Note Progress Note: I have seen and examined Tracy Rosas. Subjective: Doing well. Voices no complaints. Wants to go home Objective: Feels better AFVSS Cor: RSR, No murmurs, No gallops Lungs: Clear to P&A Abd: Soft, Normal bowel sounds, No organomegaly Ext: Mild edema. LLE cellulitis Labs/Meds reviewed 12/31/18 07:13 12/31/18 07:13 A/P 73 y/o lady with CLL, last rituximab in August 2018, with neutropenia s/p Neupogen injection on 12/21/18, who p/w fever, nausea, dry heaves, no appetite, and lightheadedness worsening for the past few days. LLE cellulitis Blood cultures -- MRSA On daptomycin Mild thrombocytopenia anemia improved post transfusion
[2018-12-31] MEDS: QUEtiapine FUMARATE 25 MG TABLET (FP) PO SCH (21:03)
--- NOTE | 2019-01-01 08:08 | PN ---
Progress Note, Physician Chief Complaint: OOB to chair NAD VSS afebrile feels well no c/o no chills wants to go home. - Current Medication List Current Medications: Active Medications Acetaminophen (Tylenol -) 650 mg PO Q6H PRN PRN Reason: FEVER Last Admin: 12/28/18 17:28 Dose: 650 mg Allopurinol (Zyloprim -) 300 mg PO DAILY [facility] Last Admin: 12/31/18 11:09 Dose: 300 mg Amlodipine Besylate (Norvasc -) 5 mg PO DAILY [facility] Last Admin: 12/31/18 11:09 Dose: 5 mg Folic Acid (Folic Acid -) 1 mg PO DAILY [facility] Last Admin: 12/31/18 11:09 Dose: 1 mg Daptomycin 350 mg/ Sodium (Chloride) 50 mls @ 50 mls/hr IVPB DAILY [facility]; Protocol Last Admin: 12/31/18 11:09 Dose: 50 mls/hr Lamivudine (Epivir Oral Solution -) 100 mg PO DAILY [facility] Last Admin: 12/31/18 11:10 Dose: 100 mg Olanzapine (Zyprexa -) 10 mg PO DAILY [facility] Last Admin: 12/31/18 11:09 Dose: 10 mg Pantoprazole Sodium (Protonix -) 20 mg PO DAILY [facility] Last Admin: 12/31/18 11:09 Dose: 20 mg Quetiapine Fumarate (Seroquel -) 25 mg PO HS [facility] Last Admin: 12/31/18 21:03 Dose: 25 mg - Objective Vital Signs: Vital Signs Temperature 98.2 F 01/01/19 07:00 Pulse Rate 71 01/01/19 07:00 Respiratory Rate 18 01/01/19 07:00 Blood Pressure 130/60 01/01/19 07:00 O2 Sat by Pulse Oximetry (%) 97 12/30/18 09:00 Constitutional: Yes: No Distress, Calm Eyes: Yes: Conjunctiva Clear HENT: Yes: Atraumatic Neck: Yes: Supple Cardiovascular: Yes: Regular Rate and Rhythm Respiratory: Yes: CTA Bilaterally Gastrointestinal: Yes: Soft. No: Tenderness Genitourinary: No: Hematuria Musculoskeletal: No: Joint Stiffness, Joint Swelling Extremities: No: Cold, Cool Edema: No Integumentary: Yes: Rash (ankle - better). No: Skin Tear, Venous Stasis Changes Neurological: Yes: WNL, Alert, Oriented ...Motor Strength: WNL Psychiatric: Yes: WNL, Alert, Oriented. No: Agitated, Suicidal Ideation Labs: CBC, BMP 12/31/18 07:13 12/31/18 07:13 INR, PTT INR 1.23 (0.83-1.09) H 12/26/18 10:12 - ....Imaging Other: Report Reviewed Assessment/Plan 73YOF PMHx Hep B, CLL pancytopenia, GI bleed, HTN admitted with L ankle cellulitis, sepsis, positive blood cx - neutropenic sepsis IV ATB per ID d/w dr Schulte - 4 weeks IV ATB daptomycin will d/w ONC ?can use port for IV ATB or needs PICC line? then will d/w CM regarding SNF placement - pt will need total 4 weeks IV dapto anemia s/p PRBC f./u labs ID and heme onc f/u; falls pfx d/w pt do not get OOB alone prognosis guarded d./w pt and staff and d/w pt's daughter Dayana all the above.
--- NOTE | 2019-01-01 08:56 | PN ---
Progress Note, Physician History of Present Illness: The patient the 73-year-old female with a past medical history of hepatitis B, CLL (last round of rituximab July 2018), pancytopenia (status post neupogen shot on Wednesday), G.I. bleed and hypertension who presented to the emergency department complaining of a three-day history of nausea, vomiting and fever is at home. The history is collected from the patient with the assistance of her daughter at bedside. Patient states that for the past three days she has been feeling nauseous with dry heaves and non-bilious non-bloody vomiting. In addition to this, the patient endorses a fever measure to 103 at home. The patient denies chest pain, shortness of breath, dysuria, abdominal pain or decreased appetite. In the emergency department, she was found to be febrile to 100.3 orally. A urinalysis revealed a positive nitrite, 3+ leukocyte esterase, 2 + blood, and 391 white blood cells. A CBC revealed a leukopenia to 2.8 with an ANC of approximately 14,000. The patient was treated with one dose of ceftriaxone 1 g. Infectious disease and hematology were both consulted. PMH CRI HTN Hyperlipidemia Negative MIBI stress test June 2013 Nephroliyhiasis PAD 50-70 ICA stenosis 2012 - Current Medication List Current Medications: Active Medications Acetaminophen (Tylenol -) 650 mg PO Q6H PRN PRN Reason: FEVER Last Admin: 12/28/18 17:28 Dose: 650 mg Allopurinol (Zyloprim -) 300 mg PO DAILY [facility] Last Admin: 12/31/18 11:09 Dose: 300 mg Amlodipine Besylate (Norvasc -) 5 mg PO DAILY [facility] Last Admin: 12/31/18 11:09 Dose: 5 mg Folic Acid (Folic Acid -) 1 mg PO DAILY [facility] Last Admin: 12/31/18 11:09 Dose: 1 mg Daptomycin 350 mg/ Sodium (Chloride) 50 mls @ 50 mls/hr IVPB DAILY [facility]; Protocol Last Admin: 12/31/18 11:09 Dose: 50 mls/hr Lamivudine (Epivir Oral Solution -) 100 mg PO DAILY [facility] Last Admin: 12/31/18 11:10 Dose: 100 mg Olanzapine (Zyprexa -) 10 mg PO DAILY [facility] Last Admin: 12/31/18 11:09 Dose: 10 mg Pantoprazole Sodium (Protonix -) 20 mg PO DAILY [facility] Last Admin: 12/31/18 11:09 Dose: 20 mg Quetiapine Fumarate (Seroquel -) 25 mg PO HS [facility] Last Admin: 12/31/18 21:03 Dose: 25 mg - Objective Vital Signs: Vital Signs Temperature 98.2 F 01/01/19 07:00 Pulse Rate 71 01/01/19 07:00 Respiratory Rate 18 01/01/19 07:00 Blood Pressure 130/60 01/01/19 07:00 O2 Sat by Pulse Oximetry (%) 97 12/30/18 09:00 Eyes: Yes: WNL, Conjunctiva Clear, EOM Intact HENT: Yes: WNL, Atraumatic, Normocephalic Neck: Yes: WNL, Supple, Trachea Midline Cardiovascular: Yes: WNL, Regular Rate and Rhythm Respiratory: Yes: WNL, Regular, CTA Bilaterally Gastrointestinal: Yes: WNL, Normal Bowel Sounds Genitourinary: Yes: WNL Musculoskeletal: Yes: WNL Extremities: Yes: WNL Edema: No Integumentary: Yes: WNL Neurological: Yes: WNL, Alert, Oriented ...Motor Strength: WNL Psychiatric: Yes: WNL Labs: CBC, BMP 12/31/18 07:13 12/31/18 07:13 INR, PTT INR 1.23 (0.83-1.09) H 12/26/18 10:12 Problem List - Problems (1) Anemia Code(s): D64.9 - ANEMIA, UNSPECIFIED Qualifiers: Anemia type: unspecified type Qualified Code(s): D64.9 - Anemia, unspecified (2) Chronic lymphocytic leukemia Code(s): C91.90 - LYMPHOID LEUKEMIA, UNSPECIFIED NOT HAVING ACHIEVED REMISSION (3) Fever Code(s): R50.9 - FEVER, UNSPECIFIED Qualifiers: Fever type: unspecified Qualified Code(s): R50.9 - Fever, unspecified (4) Neutropenic fever Code(s): D70.9 - NEUTROPENIA, UNSPECIFIED; R50.81 - FEVER PRESENTING WITH CONDITIONS CLASSIFIED ELSEWHERE (5) Vomiting Code(s): R11.10 - VOMITING, UNSPECIFIED Qualifiers: Vomiting type: unspecified Vomiting Intractability: unspecified Nausea presence: with nausea Qualified Code(s): R11.2 - Nausea with vomiting, unspecified (6) EBER (acute kidney injury) Code(s): N17.9 - ACUTE KIDNEY FAILURE, UNSPECIFIED (7) Allergy to antibiotic Code(s): Z88.1 - ALLERGY STATUS TO OTHER ANTIBIOTIC AGENTS STATUS (8) Altered mental state Code(s): R41.82 - ALTERED MENTAL STATUS, UNSPECIFIED Qualifiers: Altered mental status type: unspecified Qualified Code(s): R41.82 - Altered mental status, unspecified (9) Anxiety disorder Code(s): F41.9 - ANXIETY DISORDER, UNSPECIFIED (10) CKD (chronic kidney disease) Code(s): N18.9 - CHRONIC KIDNEY DISEASE, UNSPECIFIED (11) Cellulitis Code(s): L03.90 - CELLULITIS, UNSPECIFIED (12) Cellulitis, abdominal wall Code(s): L03.311 - CELLULITIS OF ABDOMINAL WALL (13) Choledocholithiasis Code(s): K80.50 - CALCULUS OF BILE DUCT W/O CHOLANGITIS OR CHOLECYST W/O OBST (14) Cholelithiasis Code(s): K80.20 - CALCULUS OF GALLBLADDER W/O CHOLECYSTITIS W/O OBSTRUCTION (15) Chronic ITP (idiopathic thrombocytopenic purpura) Code(s): D69.3 - IMMUNE THROMBOCYTOPENIC PURPURA (16) Colonic thickening Code(s): K63.9 - DISEASE OF INTESTINE, UNSPECIFIED (17) Cough Code(s): R05 - COUGH (18) Cyst of left kidney Code(s): N28.1 - CYST OF KIDNEY, ACQUIRED (19) Diastolic CHF Code(s): I50.30 - UNSPECIFIED DIASTOLIC (CONGESTIVE) HEART FAILURE (20) Diverticulitis Code(s): K57.92 - DVTRCLI OF INTEST, PART UNSP, W/O PERF OR ABSCESS W/O BLEED (21) Epistaxis Code(s): R04.0 - EPISTAXIS (22) GI bleed Code(s): K92.2 - GASTROINTESTINAL HEMORRHAGE, UNSPECIFIED (23) HTN (hypertension) Code(s): I10 - ESSENTIAL (PRIMARY) HYPERTENSION (24) Hemolytic anemia Code(s): D58.9 - HEREDITARY HEMOLYTIC ANEMIA, UNSPECIFIED (25) Hepatitis B Code(s): B19.10 - UNSPECIFIED VIRAL HEPATITIS B WITHOUT HEPATIC COMA (26) Hydronephrosis Code(s): N13.30 - UNSPECIFIED HYDRONEPHROSIS (27) Hyperbilirubinemia Code(s): E80.6 - OTHER DISORDERS OF BILIRUBIN METABOLISM (28) 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 Code(s): D69.59 - OTHER SECONDARY THROMBOCYTOPENIA (29) Jaundice Code(s): R17 - UNSPECIFIED JAUNDICE (30) Leukopenia Code(s): D72.819 - DECREASED WHITE BLOOD CELL COUNT, UNSPECIFIED Qualifiers: Leukopenia type: unspecified Qualified Code(s): D72.819 - Decreased white blood cell count, unspecified (31) Lung nodule, multiple Code(s): R91.8 - OTHER NONSPECIFIC ABNORMAL FINDING OF LUNG FIELD (32) Mesenteric mass Code(s): K63.9 - DISEASE OF INTESTINE, UNSPECIFIED (33) Nephrolithiasis Code(s): N20.0 - CALCULUS OF KIDNEY (34) Neutropenia Code(s): D70.9 - NEUTROPENIA, UNSPECIFIED (35) Otorrhea, right ear Code(s): H92.11 - OTORRHEA, RIGHT EAR (36) PAD (peripheral artery disease) Code(s): I73.9 - PERIPHERAL VASCULAR DISEASE, UNSPECIFIED (37) Pancytopenia Code(s): D61.818 - OTHER PANCYTOPENIA (38) Pneumonia Code(s): J18.9 - PNEUMONIA, UNSPECIFIED ORGANISM (39) Positive blood cultures Code(s): R78.81 - BACTEREMIA (40) SIRS (systemic inflammatory response syndrome) Code(s): R65.10 - SIRS OF NON-INFECTIOUS ORIGIN W/O ACUTE ORGAN DYSFUNCTION (41) Scleral icterus Code(s): R17 - UNSPECIFIED JAUNDICE (42) Staghorn calculus Code(s): N20.0 - CALCULUS OF KIDNEY (43) Thrombocytopenia Code(s): D69.6 - THROMBOCYTOPENIA, UNSPECIFIED (44) Thrombocytopenia Code(s): D69.6 - THROMBOCYTOPENIA, UNSPECIFIED (45) UTI (urinary tract infection) Code(s): N39.0 - URINARY TRACT INFECTION, SITE NOT SPECIFIED Qualifiers: Urinary tract infection type: site unspecified Hematuria presence: with hematuria Qualified Code(s): N39.0 - Urinary tract infection, site not specified; R31.9 - Hematuria, unspecified Assessment/Plan - Problems (1) Chronic lymphocytic leukemia Assessment/Plan: followed by oncology Code(s): C91.90 - LYMPHOID LEUKEMIA, UNSPECIFIED NOT HAVING ACHIEVED REMISSION (2) Fever Code(s): R50.9 - FEVER, UNSPECIFIED Qualifiers: Fever type: unspecified Qualified Code(s): R50.9 - Fever, unspecified (3) HTN (hypertension) Assessment/Plan: On amlodipine; f/u BP serially. ECHO: normal LVEF. Code(s): I10 - ESSENTIAL (PRIMARY) HYPERTENSION (4) Pancytopenia Code(s): D61.818 - OTHER PANCYTOPENIA (5) Bacteremia Assessment/Plan: on antibiotics per ID. ECHO: normal LVEF; no vegetations noted on transthoracic ECHO. Code(s): R78.81 - BACTEREMIA
[2019-01-01] MEDS ORDERED: PT OWN MED DRAWER 7, Y5N ONE (09:48)
[2019-01-01] MEDS: FOLIC ACID 1 MG TABLET (FP) PO SCH (09:52)
[2019-01-01] MEDS: amLODIPine BESYLATE 5 MG TABLET (FP) PO SCH (09:52)
[2019-01-01] MEDS: lamiVUDine 10 MG/1 ML BULK BOTTLE PO SCH (09:52)
[2019-01-01] MEDS: DAPTOMYCIN 350 MG in SODIUM CHLORIDE 50 ML IVPB SCH (09:53)
[2019-01-01] MEDS: OLANZapine 10 MG TABLET PO SCH (09:53)
[2019-01-01] MEDS: ALLOPURINOL 300 MG TABLET (FP) PO SCH (09:53)
[2019-01-01] MEDS: PANTOPRAZOLE 20 MG TABLET (FP) PO SCH (09:53)
--- NOTE | 2019-01-01 17:12 | PN ---
Progress Note (short form) - Note Progress Note: I have seen and examined Tracy Rosas. Subjective: Doing well. Voices no complaints. Wants to go home Objective: Feels better AFVSS Cor: RSR, No murmurs, No gallops Lungs: Clear to P&A Abd: Soft, Normal bowel sounds, No organomegaly Ext: Mild edema. LLE cellulitis Labs/Meds reviewed 12/31/18 07:13 12/31/18 07:13 Current Medications Acetaminophen (Tylenol -) 650 mg PO Q6H PRN PRN Reason: FEVER Last Admin: 12/28/18 17:28 Dose: 650 mg Allopurinol (Zyloprim -) 300 mg PO DAILY [facility] Last Admin: 01/01/19 09:53 Dose: 300 mg Amlodipine Besylate (Norvasc -) 5 mg PO DAILY [facility] Last Admin: 01/01/19 09:52 Dose: 5 mg Folic Acid (Folic Acid -) 1 mg PO DAILY [facility] Last Admin: 01/01/19 09:52 Dose: 1 mg Daptomycin 350 mg/ Sodium (Chloride) 50 mls @ 50 mls/hr IVPB DAILY [facility]; Protocol Last Admin: 01/01/19 09:53 Dose: 50 mls/hr Lamivudine (Epivir Oral Solution -) 100 mg PO DAILY [facility] Last Admin: 01/01/19 09:52 Dose: 100 mg Olanzapine (Zyprexa -) 10 mg PO DAILY [facility] Last Admin: 01/01/19 09:53 Dose: 10 mg Pantoprazole Sodium (Protonix -) 20 mg PO DAILY [facility] Last Admin: 01/01/19 09:53 Dose: 20 mg Quetiapine Fumarate (Seroquel -) 25 mg PO HS [facility] Last Admin: 12/31/18 21:03 Dose: 25 mg A/P 73 y/o lady with CLL, last rituximab in August 2018, with neutropenia s/p Neupogen injection on 12/21/18, who p/w fever, nausea, dry heaves, no appetite, and lightheadedness worsening for the past few days. LLE cellulitis Blood cultures -- MRSA+ On daptomycin (~ 4 weeks per ID) Mild thrombocytopenia Anemia improved post transfusion
[2019-01-01] MEDS: QUEtiapine FUMARATE 25 MG TABLET (FP) PO SCH (21:24)
--- NOTE | 2019-01-02 07:44 | PN ---
Progress Note, Physician Chief Complaint: OOB to chair no new c/o afebrile - Current Medication List Current Medications: Active Medications Acetaminophen (Tylenol -) 650 mg PO Q6H PRN PRN Reason: FEVER Last Admin: 12/28/18 17:28 Dose: 650 mg Allopurinol (Zyloprim -) 300 mg PO DAILY [facility] Last Admin: 01/01/19 09:53 Dose: 300 mg Amlodipine Besylate (Norvasc -) 5 mg PO DAILY [facility] Last Admin: 01/01/19 09:52 Dose: 5 mg Folic Acid (Folic Acid -) 1 mg PO DAILY [facility] Last Admin: 01/01/19 09:52 Dose: 1 mg Daptomycin 350 mg/ Sodium (Chloride) 50 mls @ 50 mls/hr IVPB DAILY [facility]; Protocol Last Admin: 01/01/19 09:53 Dose: 50 mls/hr Lamivudine (Epivir Oral Solution -) 100 mg PO DAILY [facility] Last Admin: 01/01/19 09:52 Dose: 100 mg Olanzapine (Zyprexa -) 10 mg PO DAILY [facility] Last Admin: 01/01/19 09:53 Dose: 10 mg Pantoprazole Sodium (Protonix -) 20 mg PO DAILY [facility] Last Admin: 01/01/19 09:53 Dose: 20 mg Quetiapine Fumarate (Seroquel -) 25 mg PO HS [facility] Last Admin: 01/01/19 21:24 Dose: 25 mg - Objective Vital Signs: Vital Signs Temperature 98.1 F 01/02/19 06:48 Pulse Rate 68 01/02/19 06:48 Respiratory Rate 18 01/02/19 06:48 Blood Pressure 120/56 L 01/02/19 06:48 O2 Sat by Pulse Oximetry (%) 97 12/30/18 09:00 Constitutional: Yes: No Distress, Calm Eyes: Yes: Conjunctiva Clear HENT: Yes: Atraumatic Neck: Yes: Supple Cardiovascular: Yes: Regular Rate and Rhythm Respiratory: Yes: CTA Bilaterally Gastrointestinal: Yes: Soft. No: Tenderness Genitourinary: No: Hematuria Musculoskeletal: No: Joint Stiffness, Joint Swelling Extremities: No: Cold, Cool, Cyanosis Edema: No Integumentary: Yes: Rash (L ankle still red but improved) Neurological: Yes: WNL, Alert, Oriented ...Motor Strength: WNL Psychiatric: Yes: WNL, Alert, Oriented. No: Agitated, Suicidal Ideation Labs: CBC, BMP 12/31/18 07:13 12/31/18 07:13 INR, PTT INR 1.23 (0.83-1.09) H 12/26/18 10:12 - ....Imaging Other: Report Reviewed Assessment/Plan [id number] PMHx Hep B, CLL pancytopenia, GI bleed, HTN admitted with L ankle cellulitis, sepsis, positive blood cx - neutropenic sepsis IV ATB per ID d/w dr Schulte - 4 weeks IV ATB daptomycin (all to vanco, can not use zyvox b/o X drugs) d.w ONC can use port for IV ATB as long as the [facility] staff changes the needle every week d/w CM regarding SNF placement - pt will need total 4 weeks IV dapto anemia s/p PRBC f./u labs ID and heme onc f/u; falls pfx d/w pt do not get OOB alone prognosis guarded d./w pt and staff and d/w pt's daughter Dayana all the above.
[2019-01-02] MEDS: PANTOPRAZOLE 20 MG TABLET (FP) PO SCH (10:44)
[2019-01-02] MEDS: ALLOPURINOL 300 MG TABLET (FP) PO SCH (10:44)
[2019-01-02] MEDS: DAPTOMYCIN 350 MG in SODIUM CHLORIDE 50 ML IVPB SCH (10:44)
[2019-01-02] MEDS: OLANZapine 10 MG TABLET PO SCH (10:44)
[2019-01-02] MEDS: amLODIPine BESYLATE 5 MG TABLET (FP) PO SCH (10:44)
[2019-01-02] MEDS: FOLIC ACID 1 MG TABLET (FP) PO SCH (10:44)
[2019-01-02] MEDS ORDERED: PT OWN MED DRAWER 7, Y5N ONE (11:01)
[2019-01-02] MEDS: lamiVUDine 10 MG/1 ML BULK BOTTLE PO SCH (11:04)
--- NOTE | 2019-01-02 11:24 | PN ---
Progress Note, Physician History of Present Illness: The patient the 73-year-old female with a past medical history of hepatitis B, CLL (last round of rituximab July 2018), pancytopenia (status post neupogen shot on Wednesday), G.I. bleed and hypertension who presented to the emergency department complaining of a three-day history of nausea, vomiting and fever is at home. The history is collected from the patient with the assistance of her daughter at bedside. Patient states that for the past three days she has been feeling nauseous with dry heaves and non-bilious non-bloody vomiting. In addition to this, the patient endorses a fever measure to 103 at home. The patient denies chest pain, shortness of breath, dysuria, abdominal pain or decreased appetite. In the emergency department, she was found to be febrile to 100.3 orally. A urinalysis revealed a positive nitrite, 3+ leukocyte esterase, 2 + blood, and 391 white blood cells. A CBC revealed a leukopenia to 2.8 with an ANC of approximately 14,000. The patient was treated with one dose of ceftriaxone 1 g. Infectious disease and hematology were both consulted. PMH CRI HTN Hyperlipidemia Negative MIBI stress test June 2013 Nephroliyhiasis PAD 50-70 ICA stenosis 2012 - Current Medication List Current Medications: Active Medications Acetaminophen (Tylenol -) 650 mg PO Q6H PRN PRN Reason: FEVER Last Admin: 12/28/18 17:28 Dose: 650 mg Allopurinol (Zyloprim -) 300 mg PO DAILY [facility] Last Admin: 01/02/19 10:44 Dose: 300 mg Amlodipine Besylate (Norvasc -) 5 mg PO DAILY [facility] Last Admin: 01/02/19 10:44 Dose: 5 mg Folic Acid (Folic Acid -) 1 mg PO DAILY [facility] Last Admin: 01/02/19 10:44 Dose: 1 mg Daptomycin 350 mg/ Sodium (Chloride) 50 mls @ 50 mls/hr IVPB DAILY [facility]; Protocol Last Admin: 01/02/19 10:44 Dose: 50 mls/hr Lamivudine (Epivir Oral Solution -) 100 mg PO DAILY [facility] Last Admin: 01/02/19 11:04 Dose: 100 mg Olanzapine (Zyprexa -) 10 mg PO DAILY [facility] Last Admin: 01/02/19 10:44 Dose: 10 mg Pantoprazole Sodium (Protonix -) 20 mg PO DAILY [facility] Last Admin: 01/02/19 10:44 Dose: 20 mg Quetiapine Fumarate (Seroquel -) 25 mg PO HS [facility] Last Admin: 01/01/19 21:24 Dose: 25 mg - Objective Vital Signs: Vital Signs Temperature 98.1 F 01/02/19 06:48 Pulse Rate 68 01/02/19 06:48 Respiratory Rate 18 01/02/19 06:48 Blood Pressure 120/56 L 01/02/19 06:48 O2 Sat by Pulse Oximetry (%) 97 12/30/18 09:00 Eyes: Yes: WNL, Conjunctiva Clear, EOM Intact HENT: Yes: WNL, Atraumatic, Normocephalic Neck: Yes: WNL, Supple, Trachea Midline Cardiovascular: Yes: WNL, Regular Rate and Rhythm Respiratory: Yes: WNL, Regular, CTA Bilaterally Gastrointestinal: Yes: WNL, Normal Bowel Sounds Genitourinary: Yes: WNL Musculoskeletal: Yes: WNL Extremities: Yes: WNL Edema: No Integumentary: Yes: WNL Neurological: Yes: WNL, Alert, Oriented ...Motor Strength: WNL Psychiatric: Yes: WNL Labs: CBC, BMP 12/31/18 07:13 12/31/18 07:13 INR, PTT INR 1.23 (0.83-1.09) H 12/26/18 10:12 Problem List - Problems (1) Anemia Code(s): D64.9 - ANEMIA, UNSPECIFIED Qualifiers: Anemia type: unspecified type Qualified Code(s): D64.9 - Anemia, unspecified (2) Chronic lymphocytic leukemia Code(s): C91.90 - LYMPHOID LEUKEMIA, UNSPECIFIED NOT HAVING ACHIEVED REMISSION (3) Fever Code(s): R50.9 - FEVER, UNSPECIFIED Qualifiers: Fever type: unspecified Qualified Code(s): R50.9 - Fever, unspecified (4) Neutropenic fever Code(s): D70.9 - NEUTROPENIA, UNSPECIFIED; R50.81 - FEVER PRESENTING WITH CONDITIONS CLASSIFIED ELSEWHERE (5) Vomiting Code(s): R11.10 - VOMITING, UNSPECIFIED Qualifiers: Vomiting type: unspecified Vomiting Intractability: unspecified Nausea presence: with nausea Qualified Code(s): R11.2 - Nausea with vomiting, unspecified (6) EBER (acute kidney injury) Code(s): N17.9 - ACUTE KIDNEY FAILURE, UNSPECIFIED (7) Allergy to antibiotic Code(s): Z88.1 - ALLERGY STATUS TO OTHER ANTIBIOTIC AGENTS STATUS (8) Altered mental state Code(s): R41.82 - ALTERED MENTAL STATUS, UNSPECIFIED Qualifiers: Altered mental status type: unspecified Qualified Code(s): R41.82 - Altered mental status, unspecified (9) Anxiety disorder Code(s): F41.9 - ANXIETY DISORDER, UNSPECIFIED (10) CKD (chronic kidney disease) Code(s): N18.9 - CHRONIC KIDNEY DISEASE, UNSPECIFIED (11) Cellulitis Code(s): L03.90 - CELLULITIS, UNSPECIFIED (12) Cellulitis, abdominal wall Code(s): L03.311 - CELLULITIS OF ABDOMINAL WALL (13) Choledocholithiasis Code(s): K80.50 - CALCULUS OF BILE DUCT W/O CHOLANGITIS OR CHOLECYST W/O OBST (14) Cholelithiasis Code(s): K80.20 - CALCULUS OF GALLBLADDER W/O CHOLECYSTITIS W/O OBSTRUCTION (15) Chronic ITP (idiopathic thrombocytopenic purpura) Code(s): D69.3 - IMMUNE THROMBOCYTOPENIC PURPURA (16) Colonic thickening Code(s): K63.9 - DISEASE OF INTESTINE, UNSPECIFIED (17) Cough Code(s): R05 - COUGH (18) Cyst of left kidney Code(s): N28.1 - CYST OF KIDNEY, ACQUIRED (19) Diastolic CHF Code(s): I50.30 - UNSPECIFIED DIASTOLIC (CONGESTIVE) HEART FAILURE (20) Diverticulitis Code(s): K57.92 - DVTRCLI OF INTEST, PART UNSP, W/O PERF OR ABSCESS W/O BLEED (21) Epistaxis Code(s): R04.0 - EPISTAXIS (22) GI bleed Code(s): K92.2 - GASTROINTESTINAL HEMORRHAGE, UNSPECIFIED (23) HTN (hypertension) Code(s): I10 - ESSENTIAL (PRIMARY) HYPERTENSION (24) Hemolytic anemia Code(s): D58.9 - HEREDITARY HEMOLYTIC ANEMIA, UNSPECIFIED (25) Hepatitis B Code(s): B19.10 - UNSPECIFIED VIRAL HEPATITIS B WITHOUT HEPATIC COMA (26) Hydronephrosis Code(s): N13.30 - UNSPECIFIED HYDRONEPHROSIS (27) Hyperbilirubinemia Code(s): E80.6 - OTHER DISORDERS OF BILIRUBIN METABOLISM (28) 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 Code(s): D69.59 - OTHER SECONDARY THROMBOCYTOPENIA (29) Jaundice Code(s): R17 - UNSPECIFIED JAUNDICE (30) Leukopenia Code(s): D72.819 - DECREASED WHITE BLOOD CELL COUNT, UNSPECIFIED Qualifiers: Leukopenia type: unspecified Qualified Code(s): D72.819 - Decreased white blood cell count, unspecified (31) Lung nodule, multiple Code(s): R91.8 - OTHER NONSPECIFIC ABNORMAL FINDING OF LUNG FIELD (32) Mesenteric mass Code(s): K63.9 - DISEASE OF INTESTINE, UNSPECIFIED (33) Nephrolithiasis Code(s): N20.0 - CALCULUS OF KIDNEY (34) Neutropenia Code(s): D70.9 - NEUTROPENIA, UNSPECIFIED (35) Otorrhea, right ear Code(s): H92.11 - OTORRHEA, RIGHT EAR (36) PAD (peripheral artery disease) Code(s): I73.9 - PERIPHERAL VASCULAR DISEASE, UNSPECIFIED (37) Pancytopenia Code(s): D61.818 - OTHER PANCYTOPENIA (38) Pneumonia Code(s): J18.9 - PNEUMONIA, UNSPECIFIED ORGANISM (39) Positive blood cultures Code(s): R78.81 - BACTEREMIA (40) SIRS (systemic inflammatory response syndrome) Code(s): R65.10 - SIRS OF NON-INFECTIOUS ORIGIN W/O ACUTE ORGAN DYSFUNCTION (41) Scleral icterus Code(s): R17 - UNSPECIFIED JAUNDICE (42) Staghorn calculus Code(s): N20.0 - CALCULUS OF KIDNEY (43) Thrombocytopenia Code(s): D69.6 - THROMBOCYTOPENIA, UNSPECIFIED (44) Thrombocytopenia Code(s): D69.6 - THROMBOCYTOPENIA, UNSPECIFIED (45) UTI (urinary tract infection) Code(s): N39.0 - URINARY TRACT INFECTION, SITE NOT SPECIFIED Qualifiers: Urinary tract infection type: site unspecified Hematuria presence: with hematuria Qualified Code(s): N39.0 - Urinary tract infection, site not specified; R31.9 - Hematuria, unspecified Assessment/Plan - Problems (1) Chronic lymphocytic leukemia Assessment/Plan: followed by oncology Code(s): C91.90 - LYMPHOID LEUKEMIA, UNSPECIFIED NOT HAVING ACHIEVED REMISSION (2) Fever Code(s): R50.9 - FEVER, UNSPECIFIED Qualifiers: Fever type: unspecified Qualified Code(s): R50.9 - Fever, unspecified (3) HTN (hypertension) Assessment/Plan: On amlodipine; f/u BP serially. ECHO: normal LVEF. Code(s): I10 - ESSENTIAL (PRIMARY) HYPERTENSION (4) Pancytopenia Code(s): D61.818 - OTHER PANCYTOPENIA (5) Bacteremia Assessment/Plan: on antibiotics per ID. ECHO: normal LVEF; no vegetations noted on transthoracic ECHO. Code(s): R78.81 - BACTEREMIA
--- NOTE | 2019-01-02 12:26 | PN ---
Progress Note (short form) - Note Progress Note: no complaints oob in chair feels well Vital Signs Period Temp Pulse Resp BP Sys/Borjas Pulse Ox Last 24 Hr 98.1 F-98.6 F 68-83 18-20 120-153/56-80 cor-rrr lungs clear abd soft,nt ext less erythema of the RLE port site no erythema CBC, BMP 12/31/18 07:13 12/31/18 07:13 Microbiology 12/27/18 18:20 Blood - Angelina Cath Blood Culture - Final NO GROWTH AFTER 5 DAYS INCUBATION 12/27/18 18:20 Blood - Angelina Cath Blood Culture - Final NO GROWTH AFTER 5 DAYS INCUBATION 12/26/18 09:30 Blood - Peripheral Venous Blood Culture - Final Presumptive Mrsa (Pbp2a Pos) Staphylococcus Epidermidis 12/26/18 09:00 Blood - Peripheral Venous Blood Culture - Final S Aureus Staphylococcus Warneri Staphylococcus Epidermidis 12/26/18 19:00 Urine - Urine Clean Catch Urine Culture - Final Normal Urogenital Claudia a/p MRSA and [employer]ER bacteremia- secondary to cellulitis- slowly resolving- day #7 antibiotics Pyuria-probably chronic, history of staghorn calculi-urine culture negative CLL anemia history of leukopenia- not neutropenic d/w dr herrera would like to complete 4 weeks of daptomycin (vanco allergy, cannot use zyvox) will need snf placement needs weekly labs cbc, cmp and cpk while on daptomycin Problem List - Problems (1) Fever Code(s): R50.9 - FEVER, UNSPECIFIED Qualifiers: Fever type: unspecified Qualified Code(s): R50.9 - Fever, unspecified (2) Anemia Code(s): D64.9 - ANEMIA, UNSPECIFIED Qualifiers: Anemia type: unspecified type Qualified Code(s): D64.9 - Anemia, unspecified (3) Chronic lymphocytic leukemia Code(s): C91.90 - LYMPHOID LEUKEMIA, UNSPECIFIED NOT HAVING ACHIEVED REMISSION (4) UTI (urinary tract infection) Code(s): N39.0 - URINARY TRACT INFECTION, SITE NOT SPECIFIED Qualifiers: Urinary tract infection type: site unspecified Hematuria presence: with hematuria Qualified Code(s): N39.0 - Urinary tract infection, site not specified; R31.9 - Hematuria, unspecified (5) Cellulitis Code(s): L03.90 - CELLULITIS, UNSPECIFIED
--- NOTE | 2019-01-02 20:51 | PN ---
Progress Note (short form) - Note Progress Note: Patient seen and examined Offers no specific compaints Last Vital Signs Temp Pulse Resp BP Pulse Ox 98.9 F 74 18 128/72 97 01/02/19 17:30 01/02/19 17:30 01/02/19 17:30 01/02/19 17:30 12/30/18 09:00 Lungs - clear Cor-RSR Abd-soft Erythema to lower extremity distally on left still present CBC, BMP 12/31/18 07:13 12/31/18 07:13 Current Medications Generic Name Dose Route Start Last Admin Trade Name Freq PRN Reason Stop Dose Admin Acetaminophen 650 mg 12/26/18 21:04 12/28/18 17:28 Tylenol - PO 650 mg Q6H PRN Administration FEVER Allopurinol 300 mg 12/27/18 10:00 01/02/19 10:44 Zyloprim - PO 300 mg DAILY RYAN Administration Amlodipine Besylate 5 mg 12/27/18 10:00 01/02/19 10:44 Norvasc - PO 5 mg DAILY RYAN Administration Folic Acid 1 mg 12/27/18 10:00 01/02/19 10:44 Folic Acid - PO 1 mg DAILY RYAN Administration Daptomycin 350 mg/ Sodium 50 mls @ 50 mls/hr 12/27/18 10:00 01/02/19 10:44 Chloride IVPB 50 mls/hr DAILY RYAN Administration Protocol Lamivudine 100 mg 12/27/18 10:00 01/02/19 11:04 Epivir Oral Solution - PO 100 mg DAILY RYAN Administration Olanzapine 10 mg 12/27/18 10:00 01/02/19 10:44 Zyprexa - PO 10 mg DAILY RYAN Administration Pantoprazole Sodium 20 mg 12/27/18 10:00 01/02/19 10:44 Protonix - PO 20 mg DAILY RYAN Administration Quetiapine Fumarate 25 mg 12/26/18 22:00 01/01/19 21:24 Seroquel - PO 25 mg HS RYAN Administration Impression: CLL Staph bacteremia Need for 4 weeks additional of antibiotics Problem of using port for antibiotics in a SNF is that unlikely to find a person who can comfortably change port needle on a weekly basis If this is in fact feasible, then there is no objection to using port for antibiotics. This will need be explored . Discussed with Dr. Jordan.
[2019-01-02] MEDS: QUEtiapine FUMARATE 25 MG TABLET (FP) PO SCH (22:20)
--- NOTE | 2019-01-03 07:41 | PN ---
Progress Note, Physician Chief Complaint: in bed NAD VSS afebrile no new c/o - Current Medication List Current Medications: Active Medications Acetaminophen (Tylenol -) 650 mg PO Q6H PRN PRN Reason: FEVER Last Admin: 12/28/18 17:28 Dose: 650 mg Allopurinol (Zyloprim -) 300 mg PO DAILY [facility] Last Admin: 01/02/19 10:44 Dose: 300 mg Amlodipine Besylate (Norvasc -) 5 mg PO DAILY [facility] Last Admin: 01/02/19 10:44 Dose: 5 mg Folic Acid (Folic Acid -) 1 mg PO DAILY [facility] Last Admin: 01/02/19 10:44 Dose: 1 mg Daptomycin 350 mg/ Sodium (Chloride) 50 mls @ 50 mls/hr IVPB DAILY [facility]; Protocol Last Admin: 01/02/19 10:44 Dose: 50 mls/hr Lamivudine (Epivir Oral Solution -) 100 mg PO DAILY [facility] Last Admin: 01/02/19 11:04 Dose: 100 mg Olanzapine (Zyprexa -) 10 mg PO DAILY [facility] Last Admin: 01/02/19 10:44 Dose: 10 mg Pantoprazole Sodium (Protonix -) 20 mg PO DAILY [facility] Last Admin: 01/02/19 10:44 Dose: 20 mg Quetiapine Fumarate (Seroquel -) 25 mg PO HS [facility] Last Admin: 01/02/19 22:20 Dose: 25 mg - Objective Vital Signs: Vital Signs Temperature 98 F 01/03/19 06:57 Pulse Rate 72 01/03/19 06:57 Respiratory Rate 20 01/03/19 06:57 Blood Pressure 154/64 01/03/19 06:57 O2 Sat by Pulse Oximetry (%) 97 12/30/18 09:00 Constitutional: Yes: No Distress, Calm Eyes: Yes: Conjunctiva Clear HENT: Yes: Atraumatic Neck: Yes: Supple Cardiovascular: Yes: Regular Rate and Rhythm Respiratory: Yes: CTA Bilaterally Gastrointestinal: Yes: Soft. No: Tenderness Genitourinary: No: Hematuria Musculoskeletal: No: Joint Stiffness, Joint Swelling Extremities: No: Cold, Cool Edema: No Integumentary: No: Pressure Ulcer, Venous Stasis Changes Neurological: Yes: WNL, Alert, Oriented ...Motor Strength: WNL Psychiatric: Yes: WNL, Alert, Oriented. No: Agitated, Suicidal Ideation Labs: CBC, BMP 12/31/18 07:13 12/31/18 07:13 INR, PTT INR 1.23 (0.83-1.09) H 12/26/18 10:12 - ....Imaging Other: Report Reviewed Assessment/Plan 73YOF PMHx Hep B, CLL pancytopenia, GI bleed, HTN admitted with L ankle cellulitis, sepsis, positive blood cx - neutropenic sepsis IV ATB per ID d/w dr Schulte - 4 weeks IV ATB daptomycin (all to vanco, can not use zyvox b/o X drugs) d.w ONC can use port for IV ATB as long as the [facility] staff changes the needle every week d/w CM regarding SNF placement - pt will need total 4 weeks IV dapto anemia s/p PRBC f./u labs ID and heme onc f/u; falls pfx d/w pt do not get OOB alone prognosis guarded d./w pt and staff
[2019-01-03 08:07] LABS: HEMATOCRIT 28.7 % (32.4-45.2); HEMOGLOBIN 9.8 GM/dL (10.7-15.3); MCH 26.8 pg (25.7-33.7); MCHC 34.2 g/dl (32.0-36.0); MEAN CELL VOLUME 78.5 fl (80-96); MEAN PLT VOLUME 10.1 fl (7.5-11.1); PLATELET COUNT 156 K/MM3 (134-434); RBC 3.65 M/mm3 (3.60-5.2); RDW 21.4 % (11.6-15.6); WHITE BLOOD COUNT 2.1 K/mm3 (4.0-10.0)
[2019-01-03 08:36] LABS: BILIRUBIN,TOTAL 0.7 mg/dL (0.2-1); BLOOD UREA NITROGEN 37.6 mg/dL (7-18); CALCIUM 9.3 mg/dL (8.5-10.1); CREATININE 1.1 mg/dL (0.55-1.3); POTASSIUM 4.5 mmol/L (3.5-5.1); TOT PROT 5.6 g/dl (6.4-8.2)
[2019-01-03] MEDS: ALLOPURINOL 300 MG TABLET (FP) PO SCH (09:13)
[2019-01-03] MEDS: OLANZapine 10 MG TABLET PO SCH (09:13)
[2019-01-03] MEDS: PANTOPRAZOLE 20 MG TABLET (FP) PO SCH (09:13)
[2019-01-03] MEDS: amLODIPine BESYLATE 5 MG TABLET (FP) PO SCH (09:13)
[2019-01-03] MEDS: FOLIC ACID 1 MG TABLET (FP) PO SCH (09:13)
[2019-01-03] MEDS: lamiVUDine 10 MG/1 ML BULK BOTTLE PO SCH (10:32)
[2019-01-03] MEDS: DAPTOMYCIN 350 MG in SODIUM CHLORIDE 50 ML IVPB SCH (10:32)
--- NOTE | 2019-01-03 13:16 | PN ---
Progress Note (short form) - Note Progress Note: Vital Signs Period Temp Pulse Resp BP Sys/Borjas Pulse Ox Last 24 Hr 98 F-98.9 F 72-78 18-20 128-154/64-72 cor-rrr lungs decreased bs at bases abd soft,nt ext still some erythema of the LLE +port CBC, BMP 01/03/19 07:22 01/03/19 07:22 Microbiology 12/27/18 18:20 Blood - Angelina Cath Blood Culture - Final NO GROWTH AFTER 5 DAYS INCUBATION 12/27/18 18:20 Blood - Angelina Cath Blood Culture - Final NO GROWTH AFTER 5 DAYS INCUBATION 12/26/18 09:30 Blood - Peripheral Venous Blood Culture - Final Presumptive Mrsa (Pbp2a Pos) Staphylococcus Epidermidis 12/26/18 09:00 Blood - Peripheral Venous Blood Culture - Final Mr S Aureus Staphylococcus Warneri Staphylococcus Epidermidis 12/26/18 19:00 Urine - Urine Clean Catch Urine Culture - Final Normal Urogenital Claudia 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- secondary to cellulitis- slowly resolving- day #11/23 antibiotics Pyuria-probably chronic, history of staghorn calculi-urine culture negative CLL anemia history of leukopenia- not neutropenic d/w dr herrera would like to complete 4 weeks of daptomycin (vanco allergy, cannot use zyvox) will need snf placement needs weekly labs cbc, cmp and cpk while on daptomycin d/w associate media planner Problem List - Problems (1) Fever Code(s): R50.9 - FEVER, UNSPECIFIED Qualifiers: Fever type: unspecified Qualified Code(s): R50.9 - Fever, unspecified (2) Anemia Code(s): D64.9 - ANEMIA, UNSPECIFIED Qualifiers: Anemia type: unspecified type Qualified Code(s): D64.9 - Anemia, unspecified (3) Chronic lymphocytic leukemia Code(s): C91.90 - LYMPHOID LEUKEMIA, UNSPECIFIED NOT HAVING ACHIEVED REMISSION (4) UTI (urinary tract infection) Code(s): N39.0 - URINARY TRACT INFECTION, SITE NOT SPECIFIED Qualifiers: Urinary tract infection type: site unspecified Hematuria presence: with hematuria Qualified Code(s): N39.0 - Urinary tract infection, site not specified; R31.9 - Hematuria, unspecified (5) Cellulitis Code(s): L03.90 - CELLULITIS, UNSPECIFIED
[2019-01-03 13:21] LABS: ANISOCYTOSIS 2+; MACROCYTOSIS 0; OVALOCYTE 1+; PLATELET ESTIMATE DECREASED; TARGET CELLS 1+; TEAR DROP CELLS 1+
[2019-01-03] MEDS ORDERED: PT OWN MED DRAWER 7, Y5N ONE (19:40)
[2019-01-03] MEDS: QUEtiapine FUMARATE 25 MG TABLET (FP) PO SCH (21:41)
--- NOTE | 2019-01-04 | PN ---
Progress Note, Physician - Current Medication List Current Medications: Active Medications Acetaminophen (Tylenol -) 650 mg PO Q6H PRN PRN Reason: FEVER Last Admin: 12/28/18 17:28 Dose: 650 mg Allopurinol (Zyloprim -) 300 mg PO DAILY [facility] Last Admin: 01/03/19 09:13 Dose: 300 mg Amlodipine Besylate (Norvasc -) 5 mg PO DAILY [facility] Last Admin: 01/03/19 09:13 Dose: 5 mg Folic Acid (Folic Acid -) 1 mg PO DAILY [facility] Last Admin: 01/03/19 09:13 Dose: 1 mg Daptomycin 350 mg/ Sodium (Chloride) 50 mls @ 50 mls/hr IVPB DAILY [facility]; Protocol Last Admin: 01/03/19 10:32 Dose: 50 mls/hr Lamivudine (Epivir Oral Solution -) 100 mg PO DAILY [facility] Last Admin: 01/03/19 10:32 Dose: 100 mg Olanzapine (Zyprexa -) 10 mg PO DAILY [facility] Last Admin: 01/03/19 09:13 Dose: 10 mg Pantoprazole Sodium (Protonix -) 20 mg PO DAILY [facility] Last Admin: 01/03/19 09:13 Dose: 20 mg Quetiapine Fumarate (Seroquel -) 25 mg PO HS [facility] Last Admin: 01/03/19 21:41 Dose: 25 mg - Objective Vital Signs: Vital Signs Temperature 98.2 F 01/03/19 16:15 Pulse Rate 76 01/03/19 16:15 Respiratory Rate 18 01/03/19 16:15 Blood Pressure 134/66 01/03/19 16:15 O2 Sat by Pulse Oximetry (%) 97 12/30/18 09:00 Labs: CBC, BMP 01/03/19 07:22 01/03/19 07:22 INR, PTT INR 1.23 (0.83-1.09) H 12/26/18 10:12 Problem List - Problems (1) Chronic lymphocytic leukemia Code(s): C91.90 - LYMPHOID LEUKEMIA, UNSPECIFIED NOT HAVING ACHIEVED REMISSION (2) Fever Code(s): R50.9 - FEVER, UNSPECIFIED Qualifiers: Fever type: unspecified Qualified Code(s): R50.9 - Fever, unspecified (3) HTN (hypertension) Code(s): I10 - ESSENTIAL (PRIMARY) HYPERTENSION (4) Pancytopenia Code(s): D61.818 - OTHER PANCYTOPENIA (5) Bacteremia Code(s): R78.81 - BACTEREMIA
[2019-01-04 07:29] VITALS: TEMP 98.4
[2019-01-04] MEDS ORDERED: PT OWN MED DRAWER 7, Y5N ONE (08:47)
--- NOTE | 2019-01-04 09:34 | DS ---
Physical Examination Vital Signs: Vital Signs Temperature 98.4 F 01/04/19 07:28 Pulse Rate 72 01/04/19 07:28 Respiratory Rate 18 01/04/19 07:28 Blood Pressure 119/60 01/04/19 07:28 O2 Sat by Pulse Oximetry (%) 97 12/30/18 09:00 Findings/Remarks: OOB TO CHAIR feels well no c/o d/w CM and nurse on the floor: pt has bed at [facility] she needs total 4 weeks of IV daptomycin for staph sepsis per ID (pt received 9 days here so far) port can be used for IV access but the needle needs to be changed every week (d/w dr Garcia) - I asked CM and nurse to check with ID nurse or supervisor lead burning to make sure the could change port needle every week, if not she will need PICC line; d/w pt and daughter they agreed with [facility] SNF; f/u needed d.w them Constitutional: Yes: No Distress, Calm Eyes: Yes: Conjunctiva Clear HENT: Yes: Atraumatic Neck: Yes: Supple Cardiovascular: Yes: Regular Rate and Rhythm Respiratory: Yes: CTA Bilaterally Gastrointestinal: Yes: Soft. No: Tenderness Renal/: No: CVA Tenderness - Left, CVA Tenderness - Right Musculoskeletal: No: Joint Stiffness, Joint Swelling Extremities: No: Cold, Cool, Cyanosis Edema: No Integumentary: No: Rash (L ankle rash much better), Venous Stasis Changes Neurological: Yes: WNL, Alert, Oriented ...Motor Strength: WNL Psychiatric: Yes: WNL, Alert, Oriented. No: Agitated, Suicidal Ideation Labs: CBC, BMP 01/03/19 07:22 01/03/19 07:22 Discharge Summary Problems reviewed: Yes Reason For Visit: FEVER,CHRONIC LYMPHOCYTIC LEUKEMIA,VOMITING Current Active Problems Bacteremia (Acute) Chronic lymphocytic leukemia (Acute) Fever (Acute) Neutropenic fever (Acute) Vomiting (Acute) Procedures: Principal: 73 YOF CLL renal stones anxiety, pancytopenia s/p chemotherapy admitted with sepsis staph ? source? had L ankle rash cekllulitis at admission - seen by ID - IV ATB per ID Other Procedures: IV ATB per ID; cardiology and echo TTE no vegetations;. seen by heme onc received neupogen and blood products as needed;. all vacno and drug interactions with zyvoxx - needs total 4 weeks IV daptomycin per ID Hospital Course: improved with above; DC to SNF for total 4 weeks IV Daptomicin until 01/24 - can be given IVPB daily via port but port needs needle changed every week; f/u heme onc and PCP as advised; periodic labs. Condition: Guarded - Instructions Diet, Activity, Other Instructions: IV daptomycin for total 4 weeks - needs 19 more days from 01/05 till 01/24 PORT NEEDS NEEDLE CHANGED EVERY WEEK f/u PCP and ONC in 1-2 weeks of DC from SNF f/u labs CBC CMP q1 week; falls decubs PFX; RTER if worse or recurrent c/o Referrals: Sabi Jordan [Staff Physician] - Stu Garcia MD [Staff Physician] - Disposition: [facility] - Home Medications Comprehensive Discharge Medication List: Ambulatory Orders Allopurinol [Zyloprim -] 300 mg PO DAILY #90 tablet 04/13/18 Amlodipine Besylate [Norvasc -] 5 mg PO DAILY #90 tablet 08/26/18 Olanzapine [Zyprexa -] 10 mg PO DAILY 10/08/18 Pantoprazole Sodium [Protonix -] 20 mg PO DAILY 10/08/18 Folic Acid - 1 mg PO DAILY tablet 10/19/18 Lamivudine [Lamivudine Hbv] 100 mg PO DAILY 11/01/18 Quetiapine Fumarate [Seroquel -] 25 mg PO HS 12/21/18
[2019-01-04] MEDS: ALLOPURINOL 300 MG TABLET (FP) PO SCH (10:28)
[2019-01-04] MEDS: OLANZapine 10 MG TABLET PO SCH (10:28)
[2019-01-04] MEDS: FOLIC ACID 1 MG TABLET (FP) PO SCH (10:28)
[2019-01-04] MEDS: amLODIPine BESYLATE 5 MG TABLET (FP) PO SCH (10:28)
[2019-01-04] MEDS: DAPTOMYCIN 350 MG in SODIUM CHLORIDE 50 ML IVPB SCH (10:28)
[2019-01-04] MEDS: lamiVUDine 10 MG/1 ML BULK BOTTLE PO SCH (10:29)
[2019-01-04] MEDS: PANTOPRAZOLE 20 MG TABLET (FP) PO SCH (10:29)
[2019-01-04 11:48] VITALS: BP 134/68; PULSE 76
--- NOTE | 2019-01-04 13:05 | PN ---
Progress Note, Physician History of Present Illness: The patient the 73-year-old female with a past medical history of hepatitis B, CLL (last round of rituximab July 2018), pancytopenia (status post neupogen shot on Wednesday), G.I. bleed and hypertension who presented to the emergency department complaining of a three-day history of nausea, vomiting and fever is at home. The history is collected from the patient with the assistance of her daughter at bedside. Patient states that for the past three days she has been feeling nauseous with dry heaves and non-bilious non-bloody vomiting. In addition to this, the patient endorses a fever measure to 103 at home. The patient denies chest pain, shortness of breath, dysuria, abdominal pain or decreased appetite. In the emergency department, she was found to be febrile to 100.3 orally. A urinalysis revealed a positive nitrite, 3+ leukocyte esterase, 2 + blood, and 391 white blood cells. A CBC revealed a leukopenia to 2.8 with an ANC of approximately 14,000. The patient was treated with one dose of ceftriaxone 1 g. Infectious disease and hematology were both consulted. PMH CRI HTN Hyperlipidemia Negative MIBI stress test June 2013 Nephroliyhiasis PAD 50-70 ICA stenosis 2012 - Objective Vital Signs: Vital Signs Temperature 98.4 F 01/04/19 10:00 Pulse Rate 76 01/04/19 10:00 Respiratory Rate 18 01/04/19 10:00 Blood Pressure 134/68 01/04/19 10:00 O2 Sat by Pulse Oximetry (%) 97 12/30/18 09:00 Eyes: Yes: WNL, Conjunctiva Clear, EOM Intact HENT: Yes: WNL, Atraumatic, Normocephalic Neck: Yes: WNL, Supple, Trachea Midline Cardiovascular: Yes: WNL, Regular Rate and Rhythm Respiratory: Yes: WNL, Regular, CTA Bilaterally Gastrointestinal: Yes: WNL, Normal Bowel Sounds Genitourinary: Yes: WNL Musculoskeletal: Yes: WNL Extremities: Yes: WNL Edema: No Integumentary: Yes: WNL Neurological: Yes: WNL, Alert, Oriented ...Motor Strength: WNL Psychiatric: Yes: WNL Labs: CBC, BMP 01/03/19 07:22 01/03/19 07:22 INR, PTT INR 1.23 (0.83-1.09) H 12/26/18 10:12 Problem List - Problems (1) Anemia Code(s): D64.9 - ANEMIA, UNSPECIFIED Qualifiers: Anemia type: unspecified type Qualified Code(s): D64.9 - Anemia, unspecified (2) Chronic lymphocytic leukemia Code(s): C91.90 - LYMPHOID LEUKEMIA, UNSPECIFIED NOT HAVING ACHIEVED REMISSION (3) Fever Code(s): R50.9 - FEVER, UNSPECIFIED Qualifiers: Fever type: unspecified Qualified Code(s): R50.9 - Fever, unspecified (4) Neutropenic fever Code(s): D70.9 - NEUTROPENIA, UNSPECIFIED; R50.81 - FEVER PRESENTING WITH CONDITIONS CLASSIFIED ELSEWHERE (5) Vomiting Code(s): R11.10 - VOMITING, UNSPECIFIED Qualifiers: Vomiting type: unspecified Vomiting Intractability: unspecified Nausea presence: with nausea Qualified Code(s): R11.2 - Nausea with vomiting, unspecified (6) EBER (acute kidney injury) Code(s): N17.9 - ACUTE KIDNEY FAILURE, UNSPECIFIED (7) Allergy to antibiotic Code(s): Z88.1 - ALLERGY STATUS TO OTHER ANTIBIOTIC AGENTS STATUS (8) Altered mental state Code(s): R41.82 - ALTERED MENTAL STATUS, UNSPECIFIED Qualifiers: Altered mental status type: unspecified Qualified Code(s): R41.82 - Altered mental status, unspecified (9) Anxiety disorder Code(s): F41.9 - ANXIETY DISORDER, UNSPECIFIED (10) CKD (chronic kidney disease) Code(s): N18.9 - CHRONIC KIDNEY DISEASE, UNSPECIFIED (11) Cellulitis Code(s): L03.90 - CELLULITIS, UNSPECIFIED (12) Cellulitis, abdominal wall Code(s): L03.311 - CELLULITIS OF ABDOMINAL WALL (13) Choledocholithiasis Code(s): K80.50 - CALCULUS OF BILE DUCT W/O CHOLANGITIS OR CHOLECYST W/O OBST (14) Cholelithiasis Code(s): K80.20 - CALCULUS OF GALLBLADDER W/O CHOLECYSTITIS W/O OBSTRUCTION (15) Chronic ITP (idiopathic thrombocytopenic purpura) Code(s): D69.3 - IMMUNE THROMBOCYTOPENIC PURPURA (16) Colonic thickening Code(s): K63.9 - DISEASE OF INTESTINE, UNSPECIFIED (17) Cough Code(s): R05 - COUGH (18) Cyst of left kidney Code(s): N28.1 - CYST OF KIDNEY, ACQUIRED (19) Diastolic CHF Code(s): I50.30 - UNSPECIFIED DIASTOLIC (CONGESTIVE) HEART FAILURE (20) Diverticulitis Code(s): K57.92 - DVTRCLI OF INTEST, PART UNSP, W/O PERF OR ABSCESS W/O BLEED (21) Epistaxis Code(s): R04.0 - EPISTAXIS (22) GI bleed Code(s): K92.2 - GASTROINTESTINAL HEMORRHAGE, UNSPECIFIED (23) HTN (hypertension) Code(s): I10 - ESSENTIAL (PRIMARY) HYPERTENSION (24) Hemolytic anemia Code(s): D58.9 - HEREDITARY HEMOLYTIC ANEMIA, UNSPECIFIED (25) Hepatitis B Code(s): B19.10 - UNSPECIFIED VIRAL HEPATITIS B WITHOUT HEPATIC COMA (26) Hydronephrosis Code(s): N13.30 - UNSPECIFIED HYDRONEPHROSIS (27) Hyperbilirubinemia Code(s): E80.6 - OTHER DISORDERS OF BILIRUBIN METABOLISM (28) 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 Code(s): D69.59 - OTHER SECONDARY THROMBOCYTOPENIA (29) Jaundice Code(s): R17 - UNSPECIFIED JAUNDICE (30) Leukopenia Code(s): D72.819 - DECREASED WHITE BLOOD CELL COUNT, UNSPECIFIED Qualifiers: Leukopenia type: unspecified Qualified Code(s): D72.819 - Decreased white blood cell count, unspecified (31) Lung nodule, multiple Code(s): R91.8 - OTHER NONSPECIFIC ABNORMAL FINDING OF LUNG FIELD (32) Mesenteric mass Code(s): K63.9 - DISEASE OF INTESTINE, UNSPECIFIED (33) Nephrolithiasis Code(s): N20.0 - CALCULUS OF KIDNEY (34) Neutropenia Code(s): D70.9 - NEUTROPENIA, UNSPECIFIED (35) Otorrhea, right ear Code(s): H92.11 - OTORRHEA, RIGHT EAR (36) PAD (peripheral artery disease) Code(s): I73.9 - PERIPHERAL VASCULAR DISEASE, UNSPECIFIED (37) Pancytopenia Code(s): D61.818 - OTHER PANCYTOPENIA (38) Pneumonia Code(s): J18.9 - PNEUMONIA, UNSPECIFIED ORGANISM (39) Positive blood cultures Code(s): R78.81 - BACTEREMIA (40) SIRS (systemic inflammatory response syndrome) Code(s): R65.10 - SIRS OF NON-INFECTIOUS ORIGIN W/O ACUTE ORGAN DYSFUNCTION (41) Scleral icterus Code(s): R17 - UNSPECIFIED JAUNDICE (42) Staghorn calculus Code(s): N20.0 - CALCULUS OF KIDNEY (43) Thrombocytopenia Code(s): D69.6 - THROMBOCYTOPENIA, UNSPECIFIED (44) Thrombocytopenia Code(s): D69.6 - THROMBOCYTOPENIA, UNSPECIFIED (45) UTI (urinary tract infection) Code(s): N39.0 - URINARY TRACT INFECTION, SITE NOT SPECIFIED Qualifiers: Urinary tract infection type: site unspecified Hematuria presence: with hematuria Qualified Code(s): N39.0 - Urinary tract infection, site not specified; R31.9 - Hematuria, unspecified Assessment/Plan - Problems (1) Chronic lymphocytic leukemia Assessment/Plan: followed by oncology Code(s): C91.90 - LYMPHOID LEUKEMIA, UNSPECIFIED NOT HAVING ACHIEVED REMISSION (2) Fever Code(s): R50.9 - FEVER, UNSPECIFIED Qualifiers: Fever type: unspecified Qualified Code(s): R50.9 - Fever, unspecified (3) HTN (hypertension) Assessment/Plan: On amlodipine; f/u BP serially. ECHO: normal LVEF. Code(s): I10 - ESSENTIAL (PRIMARY) HYPERTENSION (4) Pancytopenia Code(s): D61.818 - OTHER PANCYTOPENIA (5) Bacteremia Assessment/Plan: on antibiotics per ID. ECHO: normal LVEF; no vegetations noted on transthoracic ECHO. Code(s): R78.81 - BACTEREMIA
[2019-01-04 13:31] VITALS: BMI 23.0
== END 2019-01-04 11:57 | DRG 871 ==
LOC: JER 07:24 → JERBED 08:34 → J8W 17:46
PROVIDERS: ADMIT Internal Medicine; ATTEND Internal Medicine
PROC: 30233N1 Transfusion of Nonautologous Red Blood Cells into Peripheral Vein, Percutaneous Approach (ICD-10-PCS; principal; 2018-12-26)
DX: A41.2 Sepsis due to unspecified staphylococcus (principal); D61.810 Antineoplastic chemotherapy induced pancytopenia; N39.0 Urinary tract infection, site not specified; C91.10 Chronic lymphocytic leukemia of B-cell type not having achieved remission; L03.116 Cellulitis of left lower limb; D64.81 Anemia due to antineoplastic chemotherapy; E78.5 Hyperlipidemia, unspecified; I10 Essential (primary) hypertension; D64.9 Anemia, unspecified; D69.6 Thrombocytopenia, unspecified; R11.2 Nausea with vomiting, unspecified
CPT/HCPCS: 36415; 36430; 36511; 71045-TC-FY; 80048; 80053; 81003; 82272; 82550; 82784; 83010; 83605; 83615; 84484; 85025; 85044; 85610; 85730; 86850; 86880; 86900; 86901; 86922; 87040; 87086; 87186; 93005; 93010; 93306-TC; 99283-25; J0131; J0878; P9038; P9058

== ENCOUNTER 2019-01-16 22:04 | Inpatient (IN) | payer OTHER, MEDICARE ==
--- NOTE | 2019-01-16 22:48 | PDOC ---
History of Present Illness - General Chief Complaint: Abnormal Lab Results (Outside) Stated Complaint: LOW HGB Time Seen by Provider: 01/16/19 22:11 History Source: Patient Exam Limitations: No Limitations - History of Present Illness Initial Comments: 01/20/19 07:27 HPI: 73F PMH CLL, pancytopenia, HBV, HTN, CHF, and dementia/confusion BIBEMS from [facility] for low Hgb. Patient is confused and a poor/unreliable historian. She is on reverse isolation 2/2 CLL. Per [place] records, H/H 6.7 . Patient was recently discharged from [facility] admission 2/2 sepsis. Currently on a 4 week course of IV daptomycin via port. Allergy - VANCOMYCIN Past History - Past Medical History Allergies/Adverse Reactions: Allergies Allergy/AdvReac Type Severity Reaction Status Date / Time vancomycin AdvReac Verified 12/26/18 07:37 Home Medications: Ambulatory Orders Allopurinol [Zyloprim -] 300 mg PO DAILY #90 tablet 04/13/18 Amlodipine Besylate [Norvasc -] 5 mg PO DAILY #90 tablet 08/26/18 Olanzapine [Zyprexa -] 10 mg PO DAILY 10/08/18 Pantoprazole Sodium [Protonix -] 20 mg PO DAILY 10/08/18 Folic Acid - 1 mg PO DAILY tablet 10/19/18 Lamivudine [Lamivudine Hbv] 100 mg PO DAILY 11/01/18 Quetiapine Fumarate [Seroquel -] 25 mg PO HS 12/21/18 Acetaminophen [Tylenol .Regular Strength -] 650 mg PO Q6H PRN tablet 01/04/19 Daptomycin [Cubicin (Restricted To Id) -] 350 mg IVPB DAILY #0 vial 01/04/19 Anemia: Yes (pancytopenia) Asthma: No Cancer: (Chronic Lymphocytic leukemia) Cardiac Disorders: (CHF) CVA: No COPD: No CHF: Yes Dementia: No Diabetes: No GI Disorders: Yes (GERD, gallstones, diverticulosis, GIB) Disorders: Yes (UTIs, VRE bacteremia, large kidney stones) HTN: Yes Hypercholesterolemia: No Liver Disease: No Psychiatric Problems: Yes (possibe dementia) Seizures: No Thyroid Disease: No - Surgical History Abdominal Surgery: No Appendectomy: No Cardiac Surgery: No Cholecystectomy: No Lung Surgery: No Neurologic Surgery: No Orthopedic Surgery: No - Immunization History Immunization Up to Date: Yes - Psycho Social/Smoking Cessation Hx Smoking Status: No Smoking History: Never smoked Have you smoked in the past 12 months: No Number of Cigarettes Smoked Daily: 0 Information on smoking cessation initiated: No Hx Alcohol Use: No Drug/Substance Use Hx: No Substance Use Type: None Hx Substance Use Treatment: No Review of Systems - Review of Systems Able to Perform ROS?: No Comments:: 01/16/19 22:38 pt denies full ros but is a very poor unreliable historian Is the patient limited Montenegrin proficient: No *Physical Exam - Vital Signs Last Vital Signs Temp Pulse Resp BP Pulse Ox 99.2 F 83 17 131/61 99 01/16/19 22:06 01/16/19 22:06 01/16/19 22:06 01/16/19 22:06 01/16/19 22:06 - Physical Exam Comments: 01/20/19 07:27 PE: VSS GEN: NAD. Awake, alert, and oriented to name, , and current place. Disoriented to age and year (answering 54 and 2003). HEENT: NC/AT. No facial asymmetry. Normal voice. Supple neck w/ FROM. CV: S1/S2, RRR, no m/r/g LUNG: CTAB, no wheezes, crackles, rales, rhonchi. GI: +distended. soft, nt, +BS, no guarding, no rebound. EXTREMITIES: No obvious deformities of all extremities. SKIN: warm, dry, normal turgor PSYCH: pleasant, cooperative, confused to situation, age, and year. NEURO: 5/5 strength UE and LE b/l ED Treatment Course - LABORATORY CBC & Chemistry Diagram: 01/19/19 14:32 01/19/19 11:28 Medical Decision Making - Medical Decision Making 01/16/19 22:38 MDM: 73F CLL HBV dementia/confusion BIBEMS from [facility] for H/H - CBC, CMP, Cardiac - EKG, CXR - UA/UC - 2U PRBC - Admit 01/16/19 23:37 FOBT sent External hemorrhoid seen, no active bleeding 2 calls placed to next of kin daughter, no answer 01/17/19 00:[address] Jordan M/S Discharge - Discharge Information Problems reviewed: Yes Clinical Impression/Diagnosis: Low hemoglobin Condition: Guarded - Admission Yes - Follow up/Referral - Patient Discharge Instructions - Post Discharge Activity
[2019-01-16 23:06] LABS: BASO % 1.3 % (0-2.0); EOS % 6.4 % (0-4.5); HEMATOCRIT 20.5 % (32.4-45.2); LYMPH % 42.5 % (8-40); MCH 26.1 pg (25.7-33.7); MCHC 33.3 g/dl (32.0-36.0); MEAN CELL VOLUME 78.6 fl (80-96); MEAN PLT VOLUME 9.1 fl (7.5-11.1); MONO % 8.5 % (3.8-10.2); NEUT % 41.3 % (42.8-82.8); PLATELET COUNT 157 K/MM3 (134-434); RBC 2.61 M/mm3 (3.60-5.2); RDW 21.5 % (11.6-15.6)
[2019-01-16 23:09] LABS: HEMOGLOBIN 6.8 GM/dL (10.7-15.3)
[2019-01-16 23:10] LABS: WHITE BLOOD COUNT 1.4 K/mm3 (4.0-10.0)
[2019-01-16 23:14] LABS: EPI CELLS 14.9 /HPF (0-5/HPF); HYALINE CASTS 9 /lpf (0-8); PH,URINE 7.5 (5.0-8.0); URINE APPEARANCE CLOUDY; URINE BACTERIA 2088.9 /hpf (NEGATIVE); URINE BILIRUBIN NEGATIVE (NEGATIVE); URINE COLOR YELLOW; URINE GLUCOSE (UA) NEGATIVE (NEGATIVE); URINE KETONE NEGATIVE (NEGATIVE); URINE LEUK ESTERASE 3+ (NEGATIVE); URINE NITRITE NEGATIVE (NEGATIVE); URINE PROTEIN 1+ (NEGATIVE); URINE RBC 1 /hpf (0-4); URINE UROBILINOGEN 0.2 mg/dL (0.2-1.0); URINE WBC 14 /hpf (0-5)
[2019-01-16 23:17] LABS: ALBUMIN 3.1 g/dl (3.4-5.0); BILIRUBIN,TOTAL 0.7 mg/dL (0.2-1); BLOOD UREA NITROGEN 33.9 mg/dL (7-18); CREATININE 1.5 mg/dL (0.55-1.3); TOT PROT 5.7 g/dl (6.4-8.2)
[2019-01-16 23:52] LABS: ANISOCYTOSIS 1+; PLATELET ESTIMATE DECREASED
[2019-01-17] MEDS ORDERED: ACETAMINOPHEN 325 MG TABLET (FP) PO PRN (00:35)
--- NOTE | 2019-01-17 00:40 | PDOC ---
Documentation entered by Cristine Esqueda SCRIBE, acting as scribe for Jane Hernandez MD. Jane Hernandez MD: This documentation has been prepared by the Yin mayer Brenda, SCRIBE, under my direction and personally reviewed by me in its entirety. I confirm that the documentation accurately reflects all work, treatment, procedures, and medical decision making performed by me. Attending Attestation - Resident Resident Name: Alexandro Del Cid - ED Attending Attestation I have performed the following: I have examined & evaluated the patient, The case was reviewed & discussed with the resident, I agree w/resident's findings & plan, Exceptions are as noted - HPI HPI: 01/16/19 23:06 The patient is a 73 year old female, with a significant PMH of CLL, pancytopenia , HBV, HTN, CHF, and dementia, who presents to the emergency department [facility] from [facility] with anemia. As per [place], her hemoglobin was 6.7 Patient is under the care of Stu Garcia. Patient was a poor historian. Allergies: Vancomycin Past surgical history: None reported Social history: No reported hx of smoking, alcohol use or illicit drug use. PCP: Estuardo Ott - Physicial Exam PE: 01/16/19 23:07 GENERAL: Alert. Well-appearing, well-nourished. No apparent distress. HEENT: Normocephalic, atraumatic. No JVD. PERRL, EOM intact. CARDIOVASCULAR: Normal S1, S2. Regular rate and rhythm. PULMONARY: Clear to auscultation bilaterally. ABDOMEN: (+) Perturbant Soft, non-distended, non-tender. EXTREMITIES: Normal ROM in all four extremities. No gross deformities. NO areas of erythema. SKIN: Warm, dry. No rash NEUROLOGICAL: No focal neurological deficits. Poor historian. Moving all extremities. - Medical Decision Making 01/16/19 23:12 73-year-old female brought in by ambulance from [facility] for anemia. History of chronic anemia and CLL. Patient is alert conversant but a very poor historian. 01/16/19 23:15 Hemoglobin is 6.8 and hematocrit is 20. Patient has a leukopenia with a white count of only 1400 but the platelets are normal and above 200,000 Patient patient with chronic lymphocytic leukemia and anemia requiring blood transfusion Patient will be admitted 01/16/19 23:16 Patient is afebrile, normotensive alert and conversant Chemistries are essentially unremarkable 01/17/19 00:[address] Julian hobson who will be the admitting attending for this patient. I did speak to the daughter Dayana who is at healthcare proxy and we discussed the patient's need for blood transfusion Consent for blood transfusion signed Dr. Julian hobson said patient could be admitted to [facility]
--- NOTE | 2019-01-17 07:33 | HP ---
Admitting History and Physical - Primary Care Physician PCP: Sabi Jordan S - Admission Chief Complaint: sent [place] for [place] counts and legs edema bilat History of Present Illness: 73F PMH CLL, pancytopenia, HBV, HTN, CHF, and dementia/confusion BIBEMS from [facility] for low Hgb. Patient is confused and a poor/unreliable historian. She is on reverse isolation 2/2 CLL. Per [place] records, H/H 6.7 / 21. WBC 1.4. Patient was recently discharged from [facility] admission 2/ sepsis. Currently on a 4 week course of IV daptomycin via port. She does not offer any co and said she wants to go home. Allergy - VANCOMYCIN History Source: Patient, Medical Record Limitations to Obtaining History: No Limitations - Past Medical History Cardiovascular: Yes: HTN Gastrointestinal: Yes: Diverticulosis (on CT scan), GI Bleed (02/13 post- sphincterotomy bleed) Hepatobiliary: Yes: Cholelithiasis, Choledocholithiasis (with cholangitis 02/13 requring ERCP & sphincterotomy complicated by a post-sphincterotomy bleed ) Renal/: Yes: Renal Calculi Heme/Onc: Yes: Anemia, Cancer (CLL- had bone marrow at [facility] recently), Other ( thalassemia) Psych: Yes: Anxiety Musculoskeletal: Yes: Chronic low back pain - Past Surgical History Past Surgical History: Yes: Tonsillectomy, Upper Endoscopy - Smoking History Smoking history: Never smoked Have you smoked in the past 12 months: No Aproximately how many cigarettes per day: 0 - Alcohol/Substance Use Hx Alcohol Use: No History of Substance Use: reports: None - Social History Usual Living Arrangement: Yes: Retirement Do you think of yourself as: Straight/Heterosexual ADL: Independent 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 of Recent Travel: No Home Medications - Allergies Allergies/Adverse Reactions: Allergies Allergy/AdvReac Type Severity Reaction Status Date / Time vancomycin AdvReac Verified 12/26/18 07:37 - Home Medications Home Medications: Ambulatory Orders Allopurinol [Zyloprim -] 300 mg PO DAILY #90 tablet 04/13/18 Amlodipine Besylate [Norvasc -] 5 mg PO DAILY #90 tablet 08/26/18 Olanzapine [Zyprexa -] 10 mg PO DAILY 10/08/18 Pantoprazole Sodium [Protonix -] 20 mg PO DAILY 10/08/18 Folic Acid - 1 mg PO DAILY tablet 10/19/18 Lamivudine [Lamivudine Hbv] 100 mg PO DAILY 11/01/18 Quetiapine Fumarate [Seroquel -] 25 mg PO HS 12/21/18 Acetaminophen [Tylenol .Regular Strength -] 650 mg PO Q6H PRN tablet 01/04/19 Daptomycin [Cubicin (Restricted To Id) -] 350 mg IVPB DAILY #0 vial 01/04/19 Family Medical History Family History: Unremarkable Review of Systems - Review of Systems Constitutional: reports: Unintentional Wgt. Loss, Weakness (general). denies: Chills, Fever Eyes: denies: Blurred Vision, Double Vision HENT: denies: Ear Pain, Epistaxis Neck: denies: Stiffness, Tenderness Cardiovascular: denies: Chest Pain, Shortness of Breath Respiratory: denies: Cough, SOB Gastrointestinal: denies: Abdominal Pain, Melena, Rectal Bleeding, Vomiting, Vomiting Blood Genitourinary: denies: Dysuria, Flank Pain Musculoskeletal: denies: Back Pain, Joint Pain Integumentary: denies: Rash, Wound Neurological: reports: Confusion, Weakness (gen). denies: Change in LOC, Change in Speech, Dizziness Endocrine: reports: Unexplained Weight Loss. denies: Excessive Sweating, Increased Thirst Hematology/Lymphatic: denies: Easily Bruised, Excessive Bleeding Psychiatric: denies: Anxiety, Depression Physical Examination Vital Signs: Vital Signs Temperature 98.0 F 01/17/19 06:23 Pulse Rate 71 01/17/19 06:23 Respiratory Rate 18 01/17/19 06:23 Blood Pressure 138/75 01/17/19 06:23 O2 Sat by Pulse Oximetry (%) 99 01/17/19 06:23 Constitutional: Yes: No Distress, Calm Eyes: Yes: Conjunctiva Clear HENT: Yes: Atraumatic Neck: Yes: Supple Cardiovascular: Yes: Regular Rate and Rhythm Respiratory: Yes: CTA Bilaterally Gastrointestinal: Yes: Soft. No: Tenderness Renal/: No: Hematuria Musculoskeletal: No: Joint Stiffness, Joint Swelling Extremities: No: Cold, Cool Edema: Yes (1-2+ pretibial bilat) Integumentary: Yes: Rash (LLE). No: Pressure Ulcer Neurological: Yes: WNL, Alert, Oriented ...Motor Strength: WNL Psychiatric: Yes: WNL, Alert, Oriented. No: Agitated, Suicidal Ideation Labs: CBC, BMP 01/16/19 22:45 01/16/19 22:45 Imaging - Results Chest X-ray: Report Reviewed Other: Report Reviewed Assessment/Plan 73F PMH CLL, pancytopenia, HBV, HTN, CHF, and dementiaad[facility] low WBC and legs edema bilat LLE rash. Patient was recently discharged from [facility] admission 2/2 sepsis. Currently on a 4 week course of IV daptomycin via port. Allergy - VANCOMYCIN IV ATB ID eval; heme eval PRBC, sq neurpogen f/u labs and cultures falls pfx called pt's daughter Dayana - message to call us
[2019-01-17 09:05] LABS: HEMATOCRIT 31.3 % (32.4-45.2); HEMOGLOBIN 10.5 GM/dL (10.7-15.3); MCHC 33.6 g/dl (32.0-36.0); MEAN CELL VOLUME 83.3 fl (80-96); PLATELET COUNT 166 K/MM3 (134-434); RBC 3.76 M/mm3 (3.60-5.2); RDW 19.3 % (11.6-15.6)
[2019-01-17 09:28] LABS: WHITE BLOOD COUNT 1.7 K/mm3 (4.0-10.0)
[2019-01-17 09:38] LABS: ALBUMIN 3.2 g/dl (3.4-5.0); BILIRUBIN,TOTAL 1.3 mg/dL (0.2-1); BLOOD UREA NITROGEN 26.9 mg/dL (7-18); CREATININE 1.5 mg/dL (0.55-1.3); POTASSIUM 3.8 mmol/L (3.5-5.1)
[2019-01-17] MEDS ORDERED: LAMIVUDINE 100 MG PO SCH (10:00)
[2019-01-17] MEDS: ALLOPURINOL 300 MG TABLET (FP) PO SCH (10:13)
[2019-01-17] MEDS: amLODIPine BESYLATE 5 MG TABLET (FP) PO SCH (10:13)
[2019-01-17] MEDS: FOLIC ACID 1 MG TABLET (FP) PO SCH (10:13)
[2019-01-17] MEDS: PANTOPRAZOLE 20 MG TABLET (FP) PO SCH (10:13)
[2019-01-17] MEDS: lamiVUDine 10 MG/1 ML BULK BOTTLE PO SCH (10:13)
[2019-01-17] MEDS: OLANZapine 10 MG TABLET PO SCH (10:14)
--- NOTE | 2019-01-17 12:08 | EKG ---
Test Reason : Blood Pressure : / mmHG Vent. Rate : 083 BPM Atrial Rate : 083 BPM P-R Int : 144 ms QRS Dur : 078 ms QT Int : 360 ms P-R-T Axes : 046 -45 020 degrees QTc Int : 423 ms POOR DATA QUALITY, INTERPRETATION MAY BE ADVERSELY AFFECTED NORMAL SINUS RHYTHM WITH SINUS ARRHYTHMIA LEFT AXIS DEVIATION ANTERIOR INFARCT , AGE UNDETERMINED ABNORMAL ECG WHEN COMPARED WITH ECG OF 26-DEC-2018 08:18, NO SIGNIFICANT CHANGE WAS FOUND Confirmed by Fausto Francisco MD ([id number]) on 01/17/2019 12:08:44 PM Referred By: Confirmed By:Fausto Francisco MD
[2019-01-17] MEDS ORDERED: DAPTOmycin 500 MG VIAL (RESTRICTED TO ID) IVPB ONE (13:00)
--- NOTE | 2019-01-17 14:22 | CONSULT ---
Consult Consult Specialty:: Hematology and oncology Referred by:: Dr. Jordan Reason for Consultation:: Anemia - History of Present Illness Chief Complaint: anemia History of Present Illness: The patient the 73-year-old female with a past medical history of hepatitis B, CLL (last round of rituximab July 2018), pancytopenia, G.I. bleed, CHF, dementia and hypertension who presented to the emergency department from [facility] because she was found to have a low Hb. In the emergency department, she was found to have a Hb 6.8 and a leukopenia to 1.4. She was transfused 2u PRBC overnight and her repeat Hb was 10.5. On interview, the patient was found sitting up in bed in [facility]. She states that she feels much better than when she came in and currently has no complaints. 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 Cardio/Vascular: Yes: HTN Gastrointestinal: Yes: Diverticulosis (on CT scan), GI Bleed (02/13 post- sphincterotomy bleed) Hepatobiliary: Yes: Cholelithiasis, Choledocholithiasis (with cholangitis 02/13 requring ERCP & sphincterotomy complicated by a post-sphincterotomy bleed ) Renal/: Yes: Renal Calculi Psych: Yes: Anxiety Musculoskeletal: Yes: Chronic low back pain - Past Surgical History Past Surgical History: Yes: Tonsillectomy, Upper Endoscopy - Alcohol/Substance Use Hx Alcohol Use: No History of Substance Use: reports: None - Smoking History Smoking history: Never smoked Have you smoked in the past 12 months: No Aproximately how many cigarettes per day: 0 - Social History Usual Living Arrangement: With Child ADL: Independent 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 of Recent Travel: No Home Medications - Allergies Allergies/Adverse Reactions: Allergies Allergy/AdvReac Type Severity Reaction Status Date / Time vancomycin AdvReac Verified 12/26/18 07:37 - Home Medications Home Medications: Ambulatory Orders Allopurinol [Zyloprim -] 300 mg PO DAILY #90 tablet 04/13/18 Amlodipine Besylate [Norvasc -] 5 mg PO DAILY #90 tablet 08/26/18 Olanzapine [Zyprexa -] 10 mg PO DAILY 10/08/18 Pantoprazole Sodium [Protonix -] 20 mg PO DAILY 10/08/18 Folic Acid - 1 mg PO DAILY tablet 10/19/18 Lamivudine [Lamivudine Hbv] 100 mg PO DAILY 11/01/18 Quetiapine Fumarate [Seroquel -] 25 mg PO HS 12/21/18 Acetaminophen [Tylenol .Regular Strength -] 650 mg PO Q6H PRN tablet 01/04/19 Daptomycin [Cubicin (Restricted To Id) -] 350 mg IVPB DAILY #0 vial 01/04/19 Review of Systems - Review of Systems Constitutional: denies: Chills, Fever Cardiovascular: denies: Chest Pain, Palpitations, Shortness of Breath Respiratory: denies: Cough, SOB, SOB on Exertion Gastrointestinal: denies: Abdominal Pain, Melena, Rectal Bleeding, Vomiting Blood Genitourinary: denies: Hematuria Physical Exam Vital Signs: Vital Signs Temperature 98.9 F 01/17/19 10:00 Pulse Rate 63 01/17/19 10:00 Respiratory Rate 18 01/17/19 10:00 Blood Pressure 127/70 01/17/19 10:00 O2 Sat by Pulse Oximetry (%) 99 01/17/19 10:00 Constitutional: Yes: No Distress, Calm HENT: Yes: Atraumatic, Normocephalic Cardiovascular: Yes: Pulse Irregular, Murmur (systolic murmur heard best at the LUSB), S1, S2. No: Gallop, Rub Respiratory: Yes: Regular, CTA Bilaterally Gastrointestinal: Yes: Normal Bowel Sounds, Soft Edema: No Neurological: Yes: Alert, Oriented Psychiatric: Yes: Alert, Oriented Labs: CBC, BMP 01/17/19 08:31 01/17/19 08:31 Assessment/Plan The patient the 73-year-old female with a past medical history of hepatitis B, CLL (last round of rituximab July 2018), pancytopenia, G.I. bleed, CHF, dementia and hypertension who presented to the emergency department from [facility] because she was found to have a low Hb. In the emergency department, she was found to have a Hb 6.8 and a leukopenia to 1.4. #pancytopenia -s/p 2u PRBC; Hb 10.5 -f/u differential, will start valtrex, fluconazole, levaquin if <500 -will obtain LDH, Haptoglobin, fractionated bilirubin
[2019-01-17] MEDS ORDERED: DAPTOMYCIN 350 MG in SODIUM CHLORIDE 50 ML IVPB ONE (15:45)
--- NOTE | 2019-01-17 16:14 | PN ---
Progress Note (short form) - Note Progress Note: ID CONSULT DICTATED 73 Y/O FEMALE PMH CLL ADMITTED WITH ANEMIA TRANSFUSED PRBCS IN ER DAY # DAPTOMYCIN FOR MRSA/SCN BACTEREMIA COMPLETE COURSE OF ANTIBIOTIC TX
[2019-01-17] MEDS: DAPTOMYCIN 350 MG in SODIUM CHLORIDE 50 ML IVPB SCH (17:53)
--- NOTE | 2019-01-17 18:52 | CON.CARD ---
Consult Consult Specialty:: Cardiology - History of Present Illness History of Present Illness: 73F PMH CLL, pancytopenia, HBV, HTN, CHF, and dementia/confusion BIBEMS from [facility] for low Hgb. Patient is confused and a poor/unreliable historian. She is on reverse isolation 2/2 CLL. Per [place] records, H/H 6.7 / 21. WBC 1.4. Patient was recently discharged from [facility] admission 2/ sepsis. Currently on a 4 week course of IV daptomycin via port. She does not offer any co and said she wants to go home. 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: Dementia Cardio/Vascular: Yes: HTN Gastrointestinal: Yes: Diverticulosis (on CT scan), GI Bleed (02/13 post- sphincterotomy bleed) Hepatobiliary: Yes: Cholelithiasis, Choledocholithiasis (with cholangitis 02/13 requring ERCP & sphincterotomy complicated by a post-sphincterotomy bleed ) Renal/: Yes: Renal Calculi ...: No Psych: Yes: Anxiety Musculoskeletal: Yes: Chronic low back pain - Past Surgical History Past Surgical History: Yes: Tonsillectomy, Upper Endoscopy - Alcohol/Substance Use Hx Alcohol Use: No History of Substance Use: reports: None - Smoking History Smoking history: Never smoked Have you smoked in the past 12 months: No Aproximately how many cigarettes per day: 0 - Social History Usual Living Arrangement: With Child ADL: Independent 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 of Recent Travel: No Home Medications - Allergies Allergies/Adverse Reactions: Allergies Allergy/AdvReac Type Severity Reaction Status Date / Time vancomycin AdvReac Verified 12/26/18 07:37 - Home Medications Home Medications: Ambulatory Orders Allopurinol [Zyloprim -] 300 mg PO DAILY #90 tablet 04/13/18 Amlodipine Besylate [Norvasc -] 5 mg PO DAILY #90 tablet 08/26/18 Olanzapine [Zyprexa -] 10 mg PO DAILY 10/08/18 Pantoprazole Sodium [Protonix -] 20 mg PO DAILY 10/08/18 Folic Acid - 1 mg PO DAILY tablet 10/19/18 Lamivudine [Lamivudine Hbv] 100 mg PO DAILY 11/01/18 Quetiapine Fumarate [Seroquel -] 25 mg PO HS 12/21/18 Acetaminophen [Tylenol .Regular Strength -] 650 mg PO Q6H PRN tablet 01/04/19 Daptomycin [Cubicin (Restricted To Id) -] 350 mg IVPB DAILY #0 vial 01/04/19 Review of Systems - Review of Systems Constitutional: reports: No Symptoms Eyes: reports: No Symptoms HENT: reports: No Symptoms Neck: reports: No Symptoms Cardiovascular: reports: Edema Respiratory: reports: No Symptoms Gastrointestinal: reports: No Symptoms Genitourinary: reports: No Symptoms Breasts: reports: No Symptoms Reported Musculoskeletal: reports: No Symptoms Integumentary: reports: No Symptoms Neurological: reports: No Symptoms Endocrine: reports: No Symptoms Hematology/Lymphatic: reports: No Symptoms Psychiatric: reports: No Symptoms Vital Signs: Vital Signs Temperature 98.4 F 01/17/19 18:26 Pulse Rate 78 01/17/19 18:26 Respiratory Rate 18 01/17/19 18:26 Blood Pressure 125/83 01/17/19 18:26 O2 Sat by Pulse Oximetry (%) 97 01/17/19 18:39 Constitutional: Yes: Well Nourished, No Distress, Calm Eyes: Yes: WNL, Conjunctiva Clear, EOM Intact HENT: Yes: WNL, Atraumatic, Normocephalic Neck: Yes: WNL, Supple, Trachea Midline Respiratory: Yes: WNL, Regular, CTA Bilaterally Gastrointestinal: Yes: WNL, Normal Bowel Sounds Renal/: Yes: WNL Cardiovascular: Yes: WNL, Regular Rate and Rhythm Musculoskeletal: Yes: WNL Extremities: Yes: Erythema Edema: Yes Integumentary: Yes: WNL Neurological: Yes: WNL, Alert, Oriented ...Motor Strength: WNL Psychiatric: Yes: WNL, Alert, Oriented - Other Data Labs, Other Data: CBC, BMP 01/17/19 08:31 01/17/19 08:31 Troponin, BNP 01/16/19 22:45 Troponin I < 0.02 Troponin, BNP 01/16/19 22:45 Troponin I < 0.02 Imaging - Results Chest X-ray: Image Reviewed (no/i/e) EKG: Image Reviewed (sr ? old ant septal mi) Problem List - Problems (1) EBER (acute kidney injury) Code(s): N17.9 - ACUTE KIDNEY FAILURE, UNSPECIFIED (2) Allergy to antibiotic Code(s): Z88.1 - ALLERGY STATUS TO OTHER ANTIBIOTIC AGENTS STATUS (3) Altered mental state Code(s): R41.82 - ALTERED MENTAL STATUS, UNSPECIFIED Qualifiers: Altered mental status type: unspecified Qualified Code(s): R41.82 - Altered mental status, unspecified (4) Anxiety disorder Code(s): F41.9 - ANXIETY DISORDER, UNSPECIFIED (5) Bacteremia Code(s): R78.81 - BACTEREMIA (6) CKD (chronic kidney disease) Code(s): N18.9 - CHRONIC KIDNEY DISEASE, UNSPECIFIED (7) Cellulitis Code(s): L03.90 - CELLULITIS, UNSPECIFIED (8) Cellulitis, abdominal wall Code(s): L03.311 - CELLULITIS OF ABDOMINAL WALL (9) Choledocholithiasis Code(s): K80.50 - CALCULUS OF BILE DUCT W/O CHOLANGITIS OR CHOLECYST W/O OBST (10) Cholelithiasis Code(s): K80.20 - CALCULUS OF GALLBLADDER W/O CHOLECYSTITIS W/O OBSTRUCTION (11) Chronic ITP (idiopathic thrombocytopenic purpura) Code(s): D69.3 - IMMUNE THROMBOCYTOPENIC PURPURA (12) Chronic lymphocytic leukemia Code(s): C91.90 - LYMPHOID LEUKEMIA, UNSPECIFIED NOT HAVING ACHIEVED REMISSION (13) Colonic thickening Code(s): K63.9 - DISEASE OF INTESTINE, UNSPECIFIED (14) Cough Code(s): R05 - COUGH (15) Cyst of left kidney Code(s): N28.1 - CYST OF KIDNEY, ACQUIRED (16) Diastolic CHF Code(s): I50.30 - UNSPECIFIED DIASTOLIC (CONGESTIVE) HEART FAILURE (17) Diverticulitis Code(s): K57.92 - DVTRCLI OF INTEST, PART UNSP, W/O PERF OR ABSCESS W/O BLEED (18) Epistaxis Code(s): R04.0 - EPISTAXIS (19) Fever Code(s): R50.9 - FEVER, UNSPECIFIED Qualifiers: Fever type: unspecified Qualified Code(s): R50.9 - Fever, unspecified (20) GI bleed Code(s): K92.2 - GASTROINTESTINAL HEMORRHAGE, UNSPECIFIED (21) HTN (hypertension) Code(s): I10 - ESSENTIAL (PRIMARY) HYPERTENSION (22) Hemolytic anemia Code(s): D58.9 - HEREDITARY HEMOLYTIC ANEMIA, UNSPECIFIED (23) Hepatitis B Code(s): B19.10 - UNSPECIFIED VIRAL HEPATITIS B WITHOUT HEPATIC COMA (24) Hydronephrosis Code(s): N13.30 - UNSPECIFIED HYDRONEPHROSIS (25) Hyperbilirubinemia Code(s): E80.6 - OTHER DISORDERS OF BILIRUBIN METABOLISM (26) 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 Code(s): D69.59 - OTHER SECONDARY THROMBOCYTOPENIA (27) Jaundice Code(s): R17 - UNSPECIFIED JAUNDICE (28) Leukopenia Code(s): D72.819 - DECREASED WHITE BLOOD CELL COUNT, UNSPECIFIED Qualifiers: Leukopenia type: unspecified Qualified Code(s): D72.819 - Decreased white blood cell count, unspecified (29) Lung nodule, multiple Code(s): R91.8 - OTHER NONSPECIFIC ABNORMAL FINDING OF LUNG FIELD (30) Mesenteric mass Code(s): K63.9 - DISEASE OF INTESTINE, UNSPECIFIED (31) Nephrolithiasis Code(s): N20.0 - CALCULUS OF KIDNEY (32) Neutropenia Code(s): D70.9 - NEUTROPENIA, UNSPECIFIED (33) Neutropenic fever Code(s): D70.9 - NEUTROPENIA, UNSPECIFIED; R50.81 - FEVER PRESENTING WITH CONDITIONS CLASSIFIED ELSEWHERE (34) Otorrhea, right ear Code(s): H92.11 - OTORRHEA, RIGHT EAR (35) PAD (peripheral artery disease) Code(s): I73.9 - PERIPHERAL VASCULAR DISEASE, UNSPECIFIED (36) Pancytopenia Code(s): D61.818 - OTHER PANCYTOPENIA (37) Positive blood cultures Code(s): R78.81 - BACTEREMIA (38) SIRS (systemic inflammatory response syndrome) Code(s): R65.10 - SIRS OF NON-INFECTIOUS ORIGIN W/O ACUTE ORGAN DYSFUNCTION (39) Scleral icterus Code(s): R17 - UNSPECIFIED JAUNDICE (40) Staghorn calculus Code(s): N20.0 - CALCULUS OF KIDNEY (41) Thrombocytopenia Code(s): D69.6 - THROMBOCYTOPENIA, UNSPECIFIED (42) Thrombocytopenia Code(s): D69.6 - THROMBOCYTOPENIA, UNSPECIFIED (43) UTI (urinary tract infection) Code(s): N39.0 - URINARY TRACT INFECTION, SITE NOT SPECIFIED Qualifiers: Urinary tract infection type: site unspecified Hematuria presence: with hematuria Qualified Code(s): N39.0 - Urinary tract infection, site not specified; R31.9 - Hematuria, unspecified (44) Vomiting Code(s): R11.10 - VOMITING, UNSPECIFIED Qualifiers: Vomiting type: unspecified Vomiting Intractability: unspecified Nausea presence: with nausea Qualified Code(s): R11.2 - Nausea with vomiting, unspecified Assessment/Plan 73-year-old lady with a past medical history of hepatitis B, CLL (last round of rituximab July 2018), pancytopenia, G.I. bleed, CHF, dementia, CRI and hypertension who presented to the emergency department from [facility] with pancytopenia,. edema and LLext cellulitis Plan; Cont abx cardiac dyson stable Patient is asymptomatic and with increased Cr - would not recommend lasix for now
--- NOTE | 2019-01-17 19:30 | PN ---
Teaching Attending Note Name of Resident: Trino Kerns ATTENDING PHYSICIAN STATEMENT I saw and evaluated the patient. I reviewed the resident's note and discussed the case with the resident. I agree with the resident's findings and plan as documented. 73-year-old lady with a past medical history of hepatitis B, CLL (last round of rituximab July 2018), pancytopenia, G.I. bleed, CHF, dementia and hypertension who presented to the emergency department from [facility] because she was found to have a low Hb. In the emergency department, she was found to have a Hb 6.8 and a leukopenia to 1.4. She was transfused 2u PRBC overnight and her repeat Hb was 10.5. SUBJECTIVE: Doing well. No complaints OBJECTIVE: Last Vital Signs Temp Pulse Resp BP Pulse Ox 98.4 F 78 18 125/83 97 01/17/19 18:26 01/17/19 18:26 01/17/19 18:26 01/17/19 18:26 01/17/19 18:39 General: NAD HEENT: MMM CVS: S1, S2 Lungs: CTAB Abdomen: Soft, NT, ND Neuro: moves all extremities 01/17/19 08:31 01/17/19 08:31 Current Medications Acetaminophen (Tylenol -) 650 mg PO Q6H PRN PRN Reason: FEVER Allopurinol (Zyloprim -) 300 mg PO DAILY [facility] Last Admin: 01/17/19 10:13 Dose: 300 mg Amlodipine Besylate (Norvasc -) 5 mg PO DAILY [facility] Last Admin: 01/17/19 10:13 Dose: 5 mg Folic Acid (Folic Acid -) 1 mg PO DAILY [facility] Last Admin: 01/17/19 10:13 Dose: 1 mg Daptomycin 350 mg/ Sodium (Chloride) 50 mls @ 100 mls/hr IVPB Q48H [facility]; Protocol Last Admin: 01/17/19 17:53 Dose: 100 mls/hr Lamivudine (Epivir Oral Solution -) 100 mg PO DAILY [facility] Last Admin: 01/17/19 10:13 Dose: 100 mg Olanzapine (Zyprexa -) 10 mg PO DAILY [facility] Last Admin: 01/17/19 10:14 Dose: 10 mg Pantoprazole Sodium (Protonix -) 20 mg PO DAILY [facility] Last Admin: 01/17/19 10:13 Dose: 20 mg Quetiapine Fumarate (Seroquel -) 25 mg PO HS [facility] ASSESSMENT AND PLAN: 73-year-old lady with a past medical history of hepatitis B, CLL (last round of rituximab July 2018), pancytopenia, G.I. bleed, CHF, dementia and hypertension who presented to the emergency department from [facility] because she was found to have a low Hb. In the emergency department, she was found to have a Hb 6.8 and a leukopenia to 1.4. She was transfused 2u PRBC overnight and her repeat Hb was 10.5. Recommend: 1) Agree with pRBC transfusion. Hb 10.5 2) Obtain differential WBC 1.7. If ANC below 500 start Levaquin, Fluconazole, Valtrex 3) Obtain LDH, Haptoglobin, T Bili and fractionate 4) Thank you for this consultation
[2019-01-17] MEDS: QUEtiapine FUMARATE 25 MG TABLET (FP) PO SCH (21:25)
--- NOTE | 2019-01-17 23:00 | CONS ---
DATE OF CONSULTATION: DATE OF DICTATION: 01/17/2019 INFECTIOUS DISEASE CONSULTATION HISTORY OF PRESENT ILLNESS: A 73-year-old female evaluated for staff bacteremia. The patient was recently discharged from [facility] after a diagnosis of polymicrobial bacteremia. She was hospitalized between December 26 and January 04, 2019. Her hospital course at that time was complicated by polymicrobial bacteremia including MRSA and coagulase negative staph. She was discharged to a intermediate facility on daptomycin. She is now admitted with symptomatic anemia. In the alf she was noted to have anemia. She was evaluated in the emergency room where her hemoglobin was 6.8. Patient was transfused packed red blood cells. She is presently day number 22 for polymicrobial bacteremia. She has been on daptomycin. She is awake and alert. She offers no complaints. She is in no acute distress. She denies any fever or chills. PAST MEDICAL HISTORY: Positive for CLL, pancytopenia, congestive heart failure, hypertension, chronic hepatitis B, dementia. ALLERGIES: VANCOMYCIN. MEDICATION: Include allopurinol, Norvasc, Zyprexa, Protonix, folic acid, Epivir, Seroquel, daptomycin. SOCIAL HISTORY: Presently living in a intermediate facility. Nonsmoker, nondrinker. LABORATORY DATA: White count 1.7, on admission 1.4, with 41 neutrophils, 42 lymphocytes, 8 monocytes, hematocrit 31.3, platelets 166, BUN 26, creatinine 1.5. Urinalysis 14 white cells. Chest x-ray shows a left pleural effusion. PHYSICAL EXAMINATION: General: On exam, she is awake and alert. She is not acutely toxic appearing. She is ambulatory in the emergency room. Vital signs: Temperature 98.9, blood pressure 127/70, pulse 63 regular, respirations 18 per minute. HEENT: Sclerae anicteric. Cardiovascular: Heart sounds S1, S2. No murmur. Lungs: Clear. Abdomen: Soft, nontender. Extremities: 2+ lower extremity edema. There is erythema present on the lower extremities bilaterally, left greater than right. IMPRESSION: 1. Anemia. 2. Polymicrobial bacteremia on daptomycin. 3. Chronic lymphocytic leukemia. 4. History of chronic hepatitis B. The patient is presently day number 22 of daptomycin for polymicrobial bacteremia. Continue daptomycin 350 mg IV piggyback daily. Complete 28-day course. Thank you for the kind referral. JUNI CANO M.D. LAURIE/[id number]
--- NOTE | 2019-01-18 07:31 | PN ---
Progress Note, Physician Chief Complaint: OOB to chair NAD no c/o less legs edema - Current Medication List Current Medications: Active Medications Acetaminophen (Tylenol -) 650 mg PO Q6H PRN PRN Reason: FEVER Allopurinol (Zyloprim -) 300 mg PO DAILY [facility] Last Admin: 01/17/19 10:13 Dose: 300 mg Amlodipine Besylate (Norvasc -) 5 mg PO DAILY [facility] Last Admin: 01/17/19 10:13 Dose: 5 mg Folic Acid (Folic Acid -) 1 mg PO DAILY [facility] Last Admin: 01/17/19 10:13 Dose: 1 mg Daptomycin 350 mg/ Sodium (Chloride) 50 mls @ 100 mls/hr IVPB Q48H [facility]; Protocol Last Admin: 01/17/19 17:53 Dose: 100 mls/hr Lamivudine (Epivir Oral Solution -) 100 mg PO DAILY [facility] Last Admin: 01/17/19 10:13 Dose: 100 mg Olanzapine (Zyprexa -) 10 mg PO DAILY [facility] Last Admin: 01/17/19 10:14 Dose: 10 mg Pantoprazole Sodium (Protonix -) 20 mg PO DAILY [facility] Last Admin: 01/17/19 10:13 Dose: 20 mg Quetiapine Fumarate (Seroquel -) 25 mg PO HS [facility] Last Admin: 01/17/19 21:25 Dose: 25 mg - Objective Vital Signs: Vital Signs Temperature 97.6 F 01/18/19 05:58 Pulse Rate 69 01/18/19 05:58 Respiratory Rate 18 01/18/19 05:58 Blood Pressure 113/76 01/18/19 05:58 O2 Sat by Pulse Oximetry (%) 97 01/18/19 04:00 Constitutional: Yes: No Distress, Calm Eyes: Yes: Conjunctiva Clear HENT: Yes: Atraumatic Neck: Yes: Supple Cardiovascular: Yes: Regular Rate and Rhythm Respiratory: Yes: Diminished Gastrointestinal: Yes: Soft. No: Tenderness Genitourinary: No: Hematuria Musculoskeletal: No: Joint Stiffness Extremities: No: Calf Tenderness, Cold, Cool Edema: Yes (legs less) Integumentary: Yes: Rash (L ankle rash) Neurological: Yes: Alert ...Motor Strength: WNL Psychiatric: Yes: Alert. No: Agitated - ....Imaging Other: Report Reviewed Assessment/Plan 73F PMH CLL, pancytopenia, HBV, HTN, CHF, and [facility] and legs edema bilat and LLE rash / cellulitis. s/ p recent sepsis. Currently on a 4 week course of IV daptomycin via port. Allergy - VANCOMYCIN IV ATB ID eval; heme eval PRBC, sq neurpogen cardio eval for legs edema r/o CHF f/u labs and cultures falls pfx called pt's daughter Dayana - message to call us
[2019-01-18 07:45] LABS: BASO % 1.9 % (0-2.0); HEMOGLOBIN 9.1 GM/dL (10.7-15.3); LYMPH % 48.3 % (8-40); MCH 28.9 pg (25.7-33.7); MCHC 34.9 g/dl (32.0-36.0); MEAN PLT VOLUME 8.1 fl (7.5-11.1); NEUT % 36.8 % (42.8-82.8); PLATELET COUNT 128 K/MM3 (134-434); RBC 3.13 M/mm3 (3.60-5.2); RDW 19.4 % (11.6-15.6)
[2019-01-18 08:06] LABS: ALBUMIN 2.8 g/dl (3.4-5.0); BILIRUBIN,TOTAL 1.3 mg/dL (0.2-1); BLOOD UREA NITROGEN 29.6 mg/dL (7-18); CALCIUM 8.6 mg/dL (8.5-10.1); CREATININE 1.4 mg/dL (0.55-1.3); POTASSIUM 3.9 mmol/L (3.5-5.1); TOT PROT 5.3 g/dl (6.4-8.2)
[2019-01-18 09:03] LABS: WHITE BLOOD COUNT 1.5 K/mm3 (4.0-10.0)
[2019-01-18] MEDS ORDERED: DAPTOmycin 500 MG VIAL (RESTRICTED TO ID) IVPB SCH (10:00)
[2019-01-18] MEDS: PANTOPRAZOLE 20 MG TABLET (FP) PO SCH (10:12)
[2019-01-18] MEDS: OLANZapine 10 MG TABLET PO SCH (10:12)
[2019-01-18] MEDS: amLODIPine BESYLATE 5 MG TABLET (FP) PO SCH (10:12)
[2019-01-18] MEDS: FOLIC ACID 1 MG TABLET (FP) PO SCH (10:12)
[2019-01-18] MEDS: ALLOPURINOL 300 MG TABLET (FP) PO SCH (10:12)
[2019-01-18] MEDS: lamiVUDine 10 MG/1 ML BULK BOTTLE PO SCH (10:12)
[2019-01-18 12:08] LABS: ANISOCYTOSIS 1+; MACROCYTOSIS 0; PLATELET ESTIMATE DECREASED; TEAR DROP CELLS 1+
--- NOTE | 2019-01-18 12:11 | PN ---
Progress Note, Physician History of Present Illness: 73F PMH CLL, pancytopenia, HBV, HTN, CHF, and dementia/confusion BIBEMS from [facility] for low Hgb. Patient is confused and a poor/unreliable historian. She is on reverse isolation 2/2 CLL. Per [place] records, H/H 6.7 / 21. WBC 1.4. Patient was recently discharged from [facility] admission 2/2 sepsis. Currently on a 4 week course of IV daptomycin via port. She does not offer any co and said she wants to go home. Allergy - VANCOMYCIN PMH CRI HTN Hyperlipidemia Negative MIBI stress test June 2013 Nephroliyhiasis PAD 50-70 ICA stenosis 2012 - Current Medication List Current Medications: Active Medications Acetaminophen (Tylenol -) 650 mg PO Q6H PRN PRN Reason: FEVER Allopurinol (Zyloprim -) 300 mg PO DAILY [facility] Last Admin: 01/18/19 10:12 Dose: 300 mg Amlodipine Besylate (Norvasc -) 5 mg PO DAILY [facility] Last Admin: 01/18/19 10:12 Dose: 5 mg Folic Acid (Folic Acid -) 1 mg PO DAILY [facility] Last Admin: 01/18/19 10:12 Dose: 1 mg Daptomycin 350 mg/ Sodium (Chloride) 50 mls @ 100 mls/hr IVPB Q48H [facility]; Protocol Last Admin: 01/17/19 17:53 Dose: 100 mls/hr Lamivudine (Epivir Oral Solution -) 100 mg PO DAILY [facility] Last Admin: 01/18/19 10:12 Dose: 100 mg Olanzapine (Zyprexa -) 10 mg PO DAILY [facility] Last Admin: 01/18/19 10:12 Dose: 10 mg Pantoprazole Sodium (Protonix -) 20 mg PO DAILY [facility] Last Admin: 01/18/19 10:12 Dose: 20 mg Quetiapine Fumarate (Seroquel -) 25 mg PO HS [facility] Last Admin: 01/17/19 21:25 Dose: 25 mg - Objective Vital Signs: Vital Signs Temperature 97.6 F 01/18/19 05:58 Pulse Rate 69 01/18/19 05:58 Respiratory Rate 18 01/18/19 05:58 Blood Pressure 113/76 01/18/19 05:58 O2 Sat by Pulse Oximetry (%) 97 01/18/19 04:00 Eyes: Yes: WNL, Conjunctiva Clear, EOM Intact HENT: Yes: WNL, Atraumatic, Normocephalic Neck: Yes: WNL, Supple, Trachea Midline Cardiovascular: Yes: WNL, Regular Rate and Rhythm Respiratory: Yes: WNL, Regular, CTA Bilaterally Gastrointestinal: Yes: WNL, Normal Bowel Sounds Genitourinary: Yes: WNL Musculoskeletal: Yes: WNL Extremities: Yes: Erythema Edema: Yes Integumentary: Yes: WNL Neurological: Yes: WNL, Alert, Oriented ...Motor Strength: WNL Psychiatric: Yes: WNL Labs: CBC, BMP 01/18/19 05:43 01/18/19 05:43 Problem List - Problems (1) EBER (acute kidney injury) Code(s): N17.9 - ACUTE KIDNEY FAILURE, UNSPECIFIED (2) Allergy to antibiotic Code(s): Z88.1 - ALLERGY STATUS TO OTHER ANTIBIOTIC AGENTS STATUS (3) Altered mental state Code(s): R41.82 - ALTERED MENTAL STATUS, UNSPECIFIED Qualifiers: Altered mental status type: unspecified Qualified Code(s): R41.82 - Altered mental status, unspecified (4) Anxiety disorder Code(s): F41.9 - ANXIETY DISORDER, UNSPECIFIED (5) Bacteremia Code(s): R78.81 - BACTEREMIA (6) CKD (chronic kidney disease) Code(s): N18.9 - CHRONIC KIDNEY DISEASE, UNSPECIFIED (7) Cellulitis Code(s): L03.90 - CELLULITIS, UNSPECIFIED (8) Cellulitis, abdominal wall Code(s): L03.311 - CELLULITIS OF ABDOMINAL WALL (9) Choledocholithiasis Code(s): K80.50 - CALCULUS OF BILE DUCT W/O CHOLANGITIS OR CHOLECYST W/O OBST (10) Cholelithiasis Code(s): K80.20 - CALCULUS OF GALLBLADDER W/O CHOLECYSTITIS W/O OBSTRUCTION (11) Chronic ITP (idiopathic thrombocytopenic purpura) Code(s): D69.3 - IMMUNE THROMBOCYTOPENIC PURPURA (12) Chronic lymphocytic leukemia Code(s): C91.90 - LYMPHOID LEUKEMIA, UNSPECIFIED NOT HAVING ACHIEVED REMISSION (13) Colonic thickening Code(s): K63.9 - DISEASE OF INTESTINE, UNSPECIFIED (14) Cough Code(s): R05 - COUGH (15) Cyst of left kidney Code(s): N28.1 - CYST OF KIDNEY, ACQUIRED (16) Diastolic CHF Code(s): I50.30 - UNSPECIFIED DIASTOLIC (CONGESTIVE) HEART FAILURE (17) Diverticulitis Code(s): K57.92 - DVTRCLI OF INTEST, PART UNSP, W/O PERF OR ABSCESS W/O BLEED (18) Epistaxis Code(s): R04.0 - EPISTAXIS (19) Fever Code(s): R50.9 - FEVER, UNSPECIFIED Qualifiers: Fever type: unspecified Qualified Code(s): R50.9 - Fever, unspecified (20) GI bleed Code(s): K92.2 - GASTROINTESTINAL HEMORRHAGE, UNSPECIFIED (21) HTN (hypertension) Code(s): I10 - ESSENTIAL (PRIMARY) HYPERTENSION (22) Hemolytic anemia Code(s): D58.9 - HEREDITARY HEMOLYTIC ANEMIA, UNSPECIFIED (23) Hepatitis B Code(s): B19.10 - UNSPECIFIED VIRAL HEPATITIS B WITHOUT HEPATIC COMA (24) Hydronephrosis Code(s): N13.30 - UNSPECIFIED HYDRONEPHROSIS (25) Hyperbilirubinemia Code(s): E80.6 - OTHER DISORDERS OF BILIRUBIN METABOLISM (26) 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 Code(s): D69.59 - OTHER SECONDARY THROMBOCYTOPENIA (27) Jaundice Code(s): R17 - UNSPECIFIED JAUNDICE (28) Leukopenia Code(s): D72.819 - DECREASED WHITE BLOOD CELL COUNT, UNSPECIFIED Qualifiers: Leukopenia type: unspecified Qualified Code(s): D72.819 - Decreased white blood cell count, unspecified (29) Lung nodule, multiple Code(s): R91.8 - OTHER NONSPECIFIC ABNORMAL FINDING OF LUNG FIELD (30) Mesenteric mass Code(s): K63.9 - DISEASE OF INTESTINE, UNSPECIFIED (31) Nephrolithiasis Code(s): N20.0 - CALCULUS OF KIDNEY (32) Neutropenia Code(s): D70.9 - NEUTROPENIA, UNSPECIFIED (33) Neutropenic fever Code(s): D70.9 - NEUTROPENIA, UNSPECIFIED; R50.81 - FEVER PRESENTING WITH CONDITIONS CLASSIFIED ELSEWHERE (34) Otorrhea, right ear Code(s): H92.11 - OTORRHEA, RIGHT EAR (35) PAD (peripheral artery disease) Code(s): I73.9 - PERIPHERAL VASCULAR DISEASE, UNSPECIFIED (36) Pancytopenia Code(s): D61.818 - OTHER PANCYTOPENIA (37) Positive blood cultures Code(s): R78.81 - BACTEREMIA (38) SIRS (systemic inflammatory response syndrome) Code(s): R65.10 - SIRS OF NON-INFECTIOUS ORIGIN W/O ACUTE ORGAN DYSFUNCTION (39) Scleral icterus Code(s): R17 - UNSPECIFIED JAUNDICE (40) Staghorn calculus Code(s): N20.0 - CALCULUS OF KIDNEY (41) Thrombocytopenia Code(s): D69.6 - THROMBOCYTOPENIA, UNSPECIFIED (42) Thrombocytopenia Code(s): D69.6 - THROMBOCYTOPENIA, UNSPECIFIED (43) UTI (urinary tract infection) Code(s): N39.0 - URINARY TRACT INFECTION, SITE NOT SPECIFIED Qualifiers: Urinary tract infection type: site unspecified Hematuria presence: with hematuria Qualified Code(s): N39.0 - Urinary tract infection, site not specified; R31.9 - Hematuria, unspecified (44) Vomiting Code(s): R11.10 - VOMITING, UNSPECIFIED Qualifiers: Vomiting type: unspecified Vomiting Intractability: unspecified Nausea presence: with nausea Qualified Code(s): R11.2 - Nausea with vomiting, unspecified Assessment/Plan 73-year-old lady with a past medical history of hepatitis B, CLL (last round of rituximab July 2018), pancytopenia, G.I. bleed, CHF, dementia, CRI and hypertension who presented to the emergency department from [facility] with pancytopenia,. edema and LLext cellulitis Plan; Cont abx cardiac dyson stable Patient is asymptomatic and with increased Cr - would not recommend lasix for now
[2019-01-18 12:22] LABS: BILIRUBIN,DIRECT 0.3 mg/dL (0.0-0.2)
--- NOTE | 2019-01-18 20:28 | PN ---
Progress Note (short form) - Note Progress Note: 73-year-old lady with a past medical history of hepatitis B, CLL (last round of rituximab July 2018), pancytopenia, G.I. bleed, CHF, dementia and hypertension who presented to the emergency department from [facility] because she was found to have a low Hb. In the emergency department, she was found to have a Hb 6.8 and a leukopenia to 1.4. She was transfused 2u PRBC overnight and her repeat Hb was 10.5. SUBJECTIVE: Doing well. No complaints OBJECTIVE: Last Vital Signs Temp Pulse Resp BP Pulse Ox 98.2 F 72 18 125/57 L 98 01/18/19 19:47 01/18/19 19:47 01/18/19 19:47 01/18/19 19:47 01/18/19 09:00 General: NAD HEENT: MMM CVS: S1, S2 Lungs: CTAB Abdomen: Soft, NT, ND Neuro: moves all extremities Skin: LLE: ~ 8 cm X 5 cm are of erythema in the lower anterior aspect of her left leg 01/18/19 05:43 01/18/19 05:43 Current Medications Acetaminophen (Tylenol -) 650 mg PO Q6H PRN PRN Reason: FEVER Allopurinol (Zyloprim -) 300 mg PO DAILY [facility] Last Admin: 01/18/19 10:12 Dose: 300 mg Amlodipine Besylate (Norvasc -) 5 mg PO DAILY [facility] Last Admin: 01/18/19 10:12 Dose: 5 mg Folic Acid (Folic Acid -) 1 mg PO DAILY [facility] Last Admin: 01/18/19 10:12 Dose: 1 mg Daptomycin 350 mg/ Sodium (Chloride) 50 mls @ 100 mls/hr IVPB Q48H [facility]; Protocol Last Admin: 01/17/19 17:53 Dose: 100 mls/hr Lamivudine (Epivir Oral Solution -) 100 mg PO DAILY [facility] Last Admin: 01/18/19 10:12 Dose: 100 mg Olanzapine (Zyprexa -) 10 mg PO DAILY [facility] Last Admin: 01/18/19 10:12 Dose: 10 mg Pantoprazole Sodium (Protonix -) 20 mg PO DAILY [facility] Last Admin: 01/18/19 10:12 Dose: 20 mg Quetiapine Fumarate (Seroquel -) 25 mg PO HS [facility] Last Admin: 01/17/19 21:25 Dose: 25 mg ASSESSMENT AND PLAN: 73-year-old lady with a past medical history of hepatitis B, CLL (last round of rituximab July 2018), pancytopenia, G.I. bleed, CHF, dementia and hypertension who presented to the emergency department from [facility] because she was found to have a low Hb. In the emergency department, she was found to have a Hb 6.8 and a leukopenia to 1.4. She was transfused 2u PRBC overnight and her repeat Hb was 10.5. Recommend: 1) Pancytopenia. Blasts reported now in differential. Recommend Flow Cytometry, review peripheral smear and possible bone marrow biopsy. 2) Daily CBC with Diff and Smear review. If ANC below 500 start Levaquin, Fluconazole, Valtrex 3) Obtain LDH, Haptoglobin, T Bili and fractionate. LDH within normal limits, TBili 1.3 and direct 0.3. 4) LLE Erythema: Painless, no edema. Will monitor closely. ? Cellulitis
[2019-01-18] MEDS: QUEtiapine FUMARATE 25 MG TABLET (FP) PO SCH (22:34)
--- NOTE | 2019-01-19 07:13 | PN ---
Progress Note, Physician Chief Complaint: consults noted OOB to chair no c/o VSS afebrile; LLE rash - Current Medication List Current Medications: Active Medications Acetaminophen (Tylenol -) 650 mg PO Q6H PRN PRN Reason: FEVER Allopurinol (Zyloprim -) 300 mg PO DAILY [facility] Last Admin: 01/18/19 10:12 Dose: 300 mg Amlodipine Besylate (Norvasc -) 5 mg PO DAILY [facility] Last Admin: 01/18/19 10:12 Dose: 5 mg Folic Acid (Folic Acid -) 1 mg PO DAILY [facility] Last Admin: 01/18/19 10:12 Dose: 1 mg Daptomycin 350 mg/ Sodium (Chloride) 50 mls @ 100 mls/hr IVPB Q48H [facility]; Protocol Last Admin: 01/17/19 17:53 Dose: 100 mls/hr Lamivudine (Epivir Oral Solution -) 100 mg PO DAILY [facility] Last Admin: 01/18/19 10:12 Dose: 100 mg Olanzapine (Zyprexa -) 10 mg PO DAILY [facility] Last Admin: 01/18/19 10:12 Dose: 10 mg Pantoprazole Sodium (Protonix -) 20 mg PO DAILY [facility] Last Admin: 01/18/19 10:12 Dose: 20 mg Quetiapine Fumarate (Seroquel -) 25 mg PO HS [facility] Last Admin: 01/18/19 22:34 Dose: 25 mg - Objective Vital Signs: Vital Signs Temperature 98.6 F 01/19/19 05:56 Pulse Rate 70 01/19/19 05:56 Respiratory Rate 18 01/19/19 05:56 Blood Pressure 110/59 L 01/19/19 05:56 O2 Sat by Pulse Oximetry (%) 98 01/18/19 21:00 Constitutional: Yes: No Distress Eyes: Yes: Conjunctiva Clear HENT: Yes: Atraumatic Neck: Yes: Supple Cardiovascular: Yes: Regular Rate and Rhythm Respiratory: Yes: Diminished Gastrointestinal: Yes: Soft. No: Tenderness Genitourinary: No: Hematuria Musculoskeletal: No: Joint Stiffness, Joint Swelling Extremities: No: Cold, Cool Edema: No Integumentary: Yes: Rash (LLE) Neurological: Yes: Alert ...Motor Strength: WNL Psychiatric: Yes: Alert. No: Agitated, Suicidal Ideation Labs: CBC, BMP 01/18/19 05:43 01/18/19 05:43 - ....Imaging Other: Report Reviewed Assessment/Plan 73F PMH CLL, pancytopenia, HBV, HTN, CHF, and [facility]ad[facility] WBC and legs edema bilat and LLE rash / cellulitis. s/ p recent sepsis. Currently on a 4 week course of IV daptomycin via port. Allergy - VANCOMYCIN IV ATB ID eval; heme eval PRBC, sq neupogen cardio eval for legs edema r/o CHF f/u labs and cultures falls pfx d/w pt and staff
[2019-01-19] MEDS: lamiVUDine 10 MG/1 ML BULK BOTTLE PO SCH (09:53)
[2019-01-19] MEDS: FOLIC ACID 1 MG TABLET (FP) PO SCH (09:53)
[2019-01-19] MEDS: amLODIPine BESYLATE 5 MG TABLET (FP) PO SCH (09:53)
[2019-01-19] MEDS: OLANZapine 10 MG TABLET PO SCH (09:53)
[2019-01-19] MEDS: ALLOPURINOL 300 MG TABLET (FP) PO SCH (09:53)
[2019-01-19] MEDS: PANTOPRAZOLE 20 MG TABLET (FP) PO SCH (09:53)
--- NOTE | 2019-01-19 11:51 | PN ---
Progress Note (short form) - Note Progress Note: Hematology and oncology follow up Subjective: Patient seen and examined at bedside. Nurse reports patient oozing from port and apparent epistaxis today. Objective: Vital Signs Temperature 98.3 F 01/19/19 14:31 Pulse Rate 74 01/19/19 14:31 Respiratory Rate 20 01/19/19 14:31 Blood Pressure 105/53 L 01/19/19 14:31 O2 Sat by Pulse Oximetry (%) 98 01/18/19 21:00 Physical Exam: Gen: patient well appearing, in NAD HEENT: clear. Dried blood noted in the left nare, no active bleeding seen Lung: clear to auscultation b/l down to the bases Heart: rrr, s1, s2, heard no murmurs, gallops, rubs. Port seen on the top right of the chest and has dried blood around it. No active bleeding. Abdomen: soft, nontender, nondistended, bowel sounds heard Active Medications Acetaminophen (Tylenol -) 650 mg PO Q6H PRN PRN Reason: FEVER Allopurinol (Zyloprim -) 300 mg PO DAILY [facility] Last Admin: 01/19/19 09:53 Dose: 300 mg Amlodipine Besylate (Norvasc -) 5 mg PO DAILY [facility] Last Admin: 01/19/19 09:53 Dose: 5 mg Folic Acid (Folic Acid -) 1 mg PO DAILY [facility] Last Admin: 01/19/19 09:53 Dose: 1 mg Daptomycin 350 mg/ Sodium (Chloride) 50 mls @ 100 mls/hr IVPB Q48H [facility]; Protocol Last Admin: 01/17/19 17:53 Dose: 100 mls/hr Lamivudine (Epivir Oral Solution -) 100 mg PO DAILY [facility] Last Admin: 01/19/19 09:53 Dose: 100 mg Olanzapine (Zyprexa -) 10 mg PO DAILY [facility] Last Admin: 01/19/19 09:53 Dose: 10 mg Pantoprazole Sodium (Protonix -) 20 mg PO DAILY [facility] Last Admin: 01/19/19 09:53 Dose: 20 mg Quetiapine Fumarate (Seroquel -) 25 mg PO HS [facility] Last Admin: 01/18/19 22:34 Dose: 25 mg Home Medications Medication Instructions Recorded Allopurinol [Zyloprim -] 300 mg PO DAILY #90 tablet 04/13/18 Amlodipine Besylate [Norvasc -] 5 mg PO DAILY #90 tablet 08/26/18 Olanzapine [Zyprexa -] 10 mg PO DAILY 10/08/18 Pantoprazole Sodium [Protonix -] 20 mg PO DAILY 10/08/18 Folic Acid - 1 mg PO DAILY tablet 10/19/18 Lamivudine [Lamivudine Hbv] 100 mg PO DAILY 11/01/18 Quetiapine Fumarate [Seroquel -] 25 mg PO HS 12/21/18 Acetaminophen [Tylenol .Regular 650 mg PO Q6H PRN tablet 01/04/19 Strength -] Daptomycin [Cubicin (Restricted 350 mg IVPB DAILY #0 vial 01/04/19 To Id) -] CBC, BMP 01/19/19 14:32 01/19/19 11:28 Assessment and plan: 73-year-old lady with a past medical history of hepatitis B, CLL (last round of rituximab July 2018), pancytopenia, G.I. bleed, CHF, dementia and hypertension who presented to the emergency department from [facility] because she was found to have a low Hb. In the emergency department, she was found to have a Hb 6.8 and a leukopenia to 1.4. She was transfused 2u PRBC overnight and her repeat Hb was 10.5. #Pancytopenia likely 2/2 bone marrow supression in the setting of CLL vs other autoimmune process -will order direct kimberly, reticulocytes, LDH, haptoglobin r/o hemolysis -ANC/ WBC improving daily -patient w/ blasts in the differential, may require flow cytometry/FISH #LLE erythema; possible cellulitis -monitor closely -afebrile, not warm -unchanged today
[2019-01-19 12:01] LABS: BASO % 0.6 % (0-2.0); EOS % 3.6 % (0-4.5); HEMATOCRIT 28.5 % (32.4-45.2); HEMOGLOBIN 9.6 GM/dL (10.7-15.3); LYMPH % 36.7 % (8-40); MCH 28.5 pg (25.7-33.7); MCHC 33.6 g/dl (32.0-36.0); MEAN CELL VOLUME 84.6 fl (80-96); MEAN PLT VOLUME 9.5 fl (7.5-11.1); MONO % 11.1 % (3.8-10.2); PLATELET COUNT 153 K/MM3 (134-434); RBC 3.36 M/mm3 (3.60-5.2); RDW 19.6 % (11.6-15.6)
[2019-01-19 12:07] LABS: WHITE BLOOD COUNT 1.8 K/mm3 (4.0-10.0)
[2019-01-19 12:34] LABS: BLOOD UREA NITROGEN 29.1 mg/dL (7-18); CALCIUM 8.7 mg/dL (8.5-10.1); CREATININE 1.4 mg/dL (0.55-1.3); POTASSIUM 4.1 mmol/L (3.5-5.1); TOT PROT 5.4 g/dl (6.4-8.2)
[2019-01-19 13:05] LABS: ANISOCYTOSIS 1+; MACROCYTOSIS 0; PLATELET ESTIMATE NORMAL; TEAR DROP CELLS 1+
[2019-01-19 14:57] LABS: HEMATOCRIT 31.8 % (32.4-45.2); HEMOGLOBIN 10.6 GM/dL (10.7-15.3); MCHC 33.3 g/dl (32.0-36.0); MEAN CELL VOLUME 84.1 fl (80-96); MEAN PLT VOLUME 9.1 fl (7.5-11.1); PLATELET COUNT 162 K/MM3 (134-434); RBC 3.78 M/mm3 (3.60-5.2); RDW 19.7 % (11.6-15.6)
[2019-01-19 15:13] LABS: INR 1.11 (0.83-1.09); PROTHROMBIN TIME (PATIENT) 13.1 SEC (9.7-13.0)
[2019-01-19 15:15] LABS: ACTIVATED PTT 31.3 SECONDS (25.2-36.5)
--- NOTE | 2019-01-19 15:19 | PN ---
Progress Note (short form) - Note Progress Note: Called to evalaute the bardport for bleeding. The pt has CLL and had a port placed for 4 weeks IV therapy with daptomyocin, she is unsure who placed the port. The nurses state that the port flushed/aspirates easily. No increased drainage with flushing although with the Morris needle in place it was ozzing around the insertion site. The needle was removed and there is no longer any bleeding. Vital Signs Period Temp Pulse Resp BP Sys/Borjas Pulse Ox Last 24 Hr 98.2 F-98.6 F 70-80 18-20 105-125/53-65 98 GEN: A&0x3, NAD Chest: bardport to right chest. No evidence of bleeding/ecchymosis/or masses. CBC, BMP 01/19/19 11:28 Laboratory Tests 01/19/19 01/19/19 01/19/19 11:28 14:32 14:32 WBC 1.8 L* Hct 28.5 L Plt Count 153 PT with INR Pending INR Pending PTT (Actin FS) Pending Fibrinogen Pending Laboratory Tests 01/16/19 22:45 WBC 1.4 L* Hgb 6.8 L* Hct 20.5 L D Plt Count 157 A/P: 73 yo female with CLL, bardport bleeding. Admitted with anemia Currently no evidence of bleeding, port functioning. Plt count at 153 Transfused PRBC with an increase of H&H Spoke with nurse and pt with peripheral IV, IV daptomyocin given Q48 hours until 01/23 and then her IV abx course will finished. Care as per the medical team D/w Dr. Boyd <Laura Cross - Last Filed: 01/19/19 15:50> - Note Progress Note: Port site with no swelling, redness or ecchymosis. Port function is normal. No intervention needed at this time. <Lonnie Boyd - Last Filed: 01/20/19 13:35>
[2019-01-19 15:26] LABS: WHITE BLOOD COUNT 1.8 K/mm3 (4.0-10.0)
[2019-01-19 17:07] LABS: ANISOCYTOSIS 2+
[2019-01-19 17:24] LABS: ADD RBC MORPHOLOGY YES
[2019-01-19 17:28] LABS: OVALOCYTE 1+; PLATELET ESTIMATE DECREASED
[2019-01-19] MEDS: DAPTOMYCIN 350 MG in SODIUM CHLORIDE 50 ML IVPB SCH (17:40)
--- NOTE | 2019-01-19 21:03 | PN ---
Progress Note (short form) - Note Progress Note: Patient seen and examined denies any specific complaints afvss Cor: RSR, No murmurs, No gallops Lungs: Clear to P&A Abd: Soft, Normal bowel sounds, No organomegaly Ext:No significant edema labs/meds reviewed a/p 73-year-old lady with a past medical history of hepatitis B, CLL (last round of rituximab July 2018), pancytopenia, G.I. bleed, CHF, dementia and hypertension who presented to the emergency department from [facility] because she was found to have a low Hb. In the emergency department, she was found to have a Hb 6.8 and a leukopenia to 1.4. She was transfused 2u PRBC ? anemia of ckd + ? marrow infiltration from cll r/o hemolysis --check kimberly on daptomycin for cellulitis f/u id consult continue supportive care
[2019-01-19] MEDS: QUEtiapine FUMARATE 25 MG TABLET (FP) PO SCH (23:32)
--- NOTE | 2019-01-20 07:58 | PN ---
Progress Note, Physician Chief Complaint: Pt sitting up in bed, eating; no c/o leg pain (LLE lesion demarcated); no chest pain or dyspnea. History of Present Illness: The patient is a 73 year old white female, with a significant PMH of CLL, pancytopenia, HBV, HTN, CHF, and dementia, who presents to the emergency department [facility] from [facility] with anemia. As per [place], her hemoglobin was 6.7 Patient is under the care of Stu Garcia. Patient was a poor historian. - Current Medication List Current Medications: Active Medications Acetaminophen (Tylenol -) 650 mg PO Q6H PRN PRN Reason: FEVER Allopurinol (Zyloprim -) 300 mg PO DAILY [facility] Last Admin: 01/19/19 09:53 Dose: 300 mg Amlodipine Besylate (Norvasc -) 5 mg PO DAILY [facility] Last Admin: 01/19/19 09:53 Dose: 5 mg Folic Acid (Folic Acid -) 1 mg PO DAILY [facility] Last Admin: 01/19/19 09:53 Dose: 1 mg Daptomycin 350 mg/ Sodium (Chloride) 50 mls @ 100 mls/hr IVPB Q48H [facility]; Protocol Last Admin: 01/19/19 17:40 Dose: 100 mls/hr Lamivudine (Epivir Oral Solution -) 100 mg PO DAILY [facility] Last Admin: 01/19/19 09:53 Dose: 100 mg Olanzapine (Zyprexa -) 10 mg PO DAILY [facility] Last Admin: 01/19/19 09:53 Dose: 10 mg Pantoprazole Sodium (Protonix -) 20 mg PO DAILY [facility] Last Admin: 01/19/19 09:53 Dose: 20 mg Quetiapine Fumarate (Seroquel -) 25 mg PO HS [facility] Last Admin: 01/19/19 23:32 Dose: 25 mg - Objective Vital Signs: Vital Signs Temperature 99 F 01/20/19 05:33 Pulse Rate 68 01/20/19 05:33 Respiratory Rate 18 01/20/19 05:33 Blood Pressure 134/55 L 01/20/19 05:33 O2 Sat by Pulse Oximetry (%) 97 01/19/19 09:00 Constitutional: Yes: Calm Eyes: Yes: WNL Cardiovascular: Yes: Pulse Irregular, S1, S2 Respiratory: Yes: Regular Gastrointestinal: Yes: Soft ...Rectal Exam: Yes: Deferred Genitourinary: No: Anuria Breast(s): Yes: WNL Musculoskeletal: Yes: Muscle Weakness Extremities: Yes: Cool Edema: No Peripheral Pulses WNL: No Peripheral Pulses: Left Doralis Pedis: 1+, Right Dorsalis Pedis: 1+ Integumentary: Yes: Erythema (LLE) Wound/Incision: Yes: Open to air Neurological: Yes: Alert, Oriented Psychiatric: Yes: Alert, Other (disoriented) Labs: CBC, BMP 01/19/19 14:32 01/19/19 11:28 INR, PTT INR 1.11 (0.83-1.09) H 01/19/19 14:32 Fibrinogen > 500.0 mg/dL (238-498) H 01/19/19 14:32 Abnormal Lab Results 01/16/19 01/19/19 01/19/19 22:45 11:28 11:28 WBC 1.8 L* RBC 3.36 L Hgb 9.6 L Hct 28.5 L RDW 19.6 H Absolute Neuts (auto) 0.9 L Neutrophils % (Manual) 40.2 L Monocytes % 11.1 H Eosinophils % (Manual) Myelocytes % (Man) 4 H D Blast Cells % (Manual) 2 H D Nucleated RBC % 1 H PT with INR INR Fibrinogen Anion Gap 6 L BUN 29.1 H Creatinine 1.4 H Total Protein 5.4 L Albumin 3.0 L Crossmatch See Detail 01/19/19 01/19/19 01/19/19 14:32 14:32 14:32 WBC 1.8 L* RBC Hgb 10.6 L Hct 31.8 L RDW 19.7 H Absolute Neuts (auto) Neutrophils % (Manual) 2.9 L Monocytes % Eosinophils % (Manual) 34.3 H D Myelocytes % (Man) 8 H D Blast Cells % (Manual) Nucleated RBC % 1 H PT with INR 13.10 H INR 1.11 H Fibrinogen > 500.0 H Anion Gap BUN Creatinine Total Protein Albumin Crossmatch - ....Imaging Chest X-ray: Image Reviewed (no acute pahtology) Problem List - Problems (1) Anxiety disorder Code(s): F41.9 - ANXIETY DISORDER, UNSPECIFIED (2) CKD (chronic kidney disease) Code(s): N18.9 - CHRONIC KIDNEY DISEASE, UNSPECIFIED (3) Cellulitis Assessment/Plan: LLE; Code(s): L03.90 - CELLULITIS, UNSPECIFIED (4) Chronic lymphocytic leukemia Assessment/Plan: f/u with oncologist Code(s): C91.90 - LYMPHOID LEUKEMIA, UNSPECIFIED NOT HAVING ACHIEVED REMISSION (5) Diastolic CHF Code(s): I50.30 - UNSPECIFIED DIASTOLIC (CONGESTIVE) HEART FAILURE (6) HTN (hypertension) Assessment/Plan: on amlodipine Code(s): I10 - ESSENTIAL (PRIMARY) HYPERTENSION (7) Neutropenia Code(s): D70.9 - NEUTROPENIA, UNSPECIFIED (8) PAD (peripheral artery disease) Code(s): I73.9 - PERIPHERAL VASCULAR DISEASE, UNSPECIFIED (9) Pancytopenia Code(s): D61.818 - OTHER PANCYTOPENIA (10) UTI (urinary tract infection) Code(s): N39.0 - URINARY TRACT INFECTION, SITE NOT SPECIFIED Qualifiers: Urinary tract infection type: site unspecified Hematuria presence: with hematuria Qualified Code(s): N39.0 - Urinary tract infection, site not specified; R31.9 - Hematuria, unspecified
[2019-01-20] MEDS: lamiVUDine 10 MG/1 ML BULK BOTTLE PO SCH (09:07)
[2019-01-20] MEDS: amLODIPine BESYLATE 5 MG TABLET (FP) PO SCH (09:07)
[2019-01-20] MEDS: FOLIC ACID 1 MG TABLET (FP) PO SCH (09:07)
[2019-01-20] MEDS: OLANZapine 10 MG TABLET PO SCH (09:07)
[2019-01-20] MEDS: ALLOPURINOL 300 MG TABLET (FP) PO SCH (09:08)
[2019-01-20] MEDS: PANTOPRAZOLE 20 MG TABLET (FP) PO SCH (09:08)
--- NOTE | 2019-01-20 10:51 | PN ---
Progress Note, Physician History of Present Illness: 73F PMH CLL, pancytopenia, HBV, HTN, CHF, and dementia/confusion BIBEMS from [facility] for low Hgb. Patient is confused and a poor/unreliable historian. She is on reverse isolation 2/2 CLL. Per [place] records, H/H 6.7 / 21. WBC 1.4. Patient was recently discharged from [facility] admission 2/2 sepsis. Currently on a 4 week course of IV daptomycin via port. She does not offer any co and said she wants to go home. Allergy - VANCOMYCIN PMH CRI HTN Hyperlipidemia Negative MIBI stress test June 2013 Nephroliyhiasis PAD 50-70 ICA stenosis 2012 - Current Medication List Current Medications: Active Medications Acetaminophen (Tylenol -) 650 mg PO Q6H PRN PRN Reason: FEVER Allopurinol (Zyloprim -) 300 mg PO DAILY [facility] Last Admin: 01/20/19 09:08 Dose: 300 mg Amlodipine Besylate (Norvasc -) 5 mg PO DAILY [facility] Last Admin: 01/20/19 09:07 Dose: 5 mg Folic Acid (Folic Acid -) 1 mg PO DAILY [facility] Last Admin: 01/20/19 09:07 Dose: 1 mg Daptomycin 350 mg/ Sodium (Chloride) 50 mls @ 100 mls/hr IVPB Q48H [facility]; Protocol Last Admin: 01/19/19 17:40 Dose: 100 mls/hr Lamivudine (Epivir Oral Solution -) 100 mg PO DAILY [facility] Last Admin: 01/20/19 09:07 Dose: 100 mg Olanzapine (Zyprexa -) 10 mg PO DAILY [facility] Last Admin: 01/20/19 09:07 Dose: 10 mg Pantoprazole Sodium (Protonix -) 20 mg PO DAILY [facility] Last Admin: 01/20/19 09:08 Dose: 20 mg Quetiapine Fumarate (Seroquel -) 25 mg PO HS [facility] Last Admin: 01/19/19 23:32 Dose: 25 mg - Objective Vital Signs: Vital Signs Temperature 98.3 F 01/20/19 10:00 Pulse Rate 73 01/20/19 10:00 Respiratory Rate 18 01/20/19 10:00 Blood Pressure 129/68 01/20/19 10:00 O2 Sat by Pulse Oximetry (%) 97 01/19/19 09:00 Eyes: Yes: WNL, Conjunctiva Clear, EOM Intact HENT: Yes: WNL, Atraumatic, Normocephalic Neck: Yes: WNL, Supple, Trachea Midline Cardiovascular: Yes: WNL, Regular Rate and Rhythm Respiratory: Yes: WNL, Regular, CTA Bilaterally Gastrointestinal: Yes: WNL, Normal Bowel Sounds Genitourinary: Yes: WNL Musculoskeletal: Yes: WNL Extremities: Yes: WNL, Erythema Edema: Yes Integumentary: Yes: WNL Neurological: Yes: WNL, Alert, Oriented ...Motor Strength: WNL Psychiatric: Yes: WNL Labs: CBC, BMP 01/19/19 14:32 01/19/19 11:28 INR, PTT INR 1.11 (0.83-1.09) H 01/19/19 14:32 Fibrinogen > 500.0 mg/dL (238-498) H 01/19/19 14:32 Problem List - Problems (1) EBER (acute kidney injury) Code(s): N17.9 - ACUTE KIDNEY FAILURE, UNSPECIFIED (2) Allergy to antibiotic Code(s): Z88.1 - ALLERGY STATUS TO OTHER ANTIBIOTIC AGENTS STATUS (3) Altered mental state Code(s): R41.82 - ALTERED MENTAL STATUS, UNSPECIFIED Qualifiers: Altered mental status type: unspecified Qualified Code(s): R41.82 - Altered mental status, unspecified (4) Anxiety disorder Code(s): F41.9 - ANXIETY DISORDER, UNSPECIFIED (5) Bacteremia Code(s): R78.81 - BACTEREMIA (6) CKD (chronic kidney disease) Code(s): N18.9 - CHRONIC KIDNEY DISEASE, UNSPECIFIED (7) Cellulitis Code(s): L03.90 - CELLULITIS, UNSPECIFIED (8) Cellulitis, abdominal wall Code(s): L03.311 - CELLULITIS OF ABDOMINAL WALL (9) Choledocholithiasis Code(s): K80.50 - CALCULUS OF BILE DUCT W/O CHOLANGITIS OR CHOLECYST W/O OBST (10) Cholelithiasis Code(s): K80.20 - CALCULUS OF GALLBLADDER W/O CHOLECYSTITIS W/O OBSTRUCTION (11) Chronic ITP (idiopathic thrombocytopenic purpura) Code(s): D69.3 - IMMUNE THROMBOCYTOPENIC PURPURA (12) Chronic lymphocytic leukemia Code(s): C91.90 - LYMPHOID LEUKEMIA, UNSPECIFIED NOT HAVING ACHIEVED REMISSION (13) Colonic thickening Code(s): K63.9 - DISEASE OF INTESTINE, UNSPECIFIED (14) Cough Code(s): R05 - COUGH (15) Cyst of left kidney Code(s): N28.1 - CYST OF KIDNEY, ACQUIRED (16) Diastolic CHF Code(s): I50.30 - UNSPECIFIED DIASTOLIC (CONGESTIVE) HEART FAILURE (17) Diverticulitis Code(s): K57.92 - DVTRCLI OF INTEST, PART UNSP, W/O PERF OR ABSCESS W/O BLEED (18) Epistaxis Code(s): R04.0 - EPISTAXIS (19) Fever Code(s): R50.9 - FEVER, UNSPECIFIED Qualifiers: Fever type: unspecified Qualified Code(s): R50.9 - Fever, unspecified (20) GI bleed Code(s): K92.2 - GASTROINTESTINAL HEMORRHAGE, UNSPECIFIED (21) HTN (hypertension) Code(s): I10 - ESSENTIAL (PRIMARY) HYPERTENSION (22) Hemolytic anemia Code(s): D58.9 - HEREDITARY HEMOLYTIC ANEMIA, UNSPECIFIED (23) Hepatitis B Code(s): B19.10 - UNSPECIFIED VIRAL HEPATITIS B WITHOUT HEPATIC COMA (24) Hydronephrosis Code(s): N13.30 - UNSPECIFIED HYDRONEPHROSIS (25) Hyperbilirubinemia Code(s): E80.6 - OTHER DISORDERS OF BILIRUBIN METABOLISM (26) 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 Code(s): D69.59 - OTHER SECONDARY THROMBOCYTOPENIA (27) Jaundice Code(s): R17 - UNSPECIFIED JAUNDICE (28) Leukopenia Code(s): D72.819 - DECREASED WHITE BLOOD CELL COUNT, UNSPECIFIED Qualifiers: Leukopenia type: unspecified Qualified Code(s): D72.819 - Decreased white blood cell count, unspecified (29) Lung nodule, multiple Code(s): R91.8 - OTHER NONSPECIFIC ABNORMAL FINDING OF LUNG FIELD (30) Mesenteric mass Code(s): K63.9 - DISEASE OF INTESTINE, UNSPECIFIED (31) Nephrolithiasis Code(s): N20.0 - CALCULUS OF KIDNEY (32) Neutropenia Code(s): D70.9 - NEUTROPENIA, UNSPECIFIED (33) Neutropenic fever Code(s): D70.9 - NEUTROPENIA, UNSPECIFIED; R50.81 - FEVER PRESENTING WITH CONDITIONS CLASSIFIED ELSEWHERE (34) Otorrhea, right ear Code(s): H92.11 - OTORRHEA, RIGHT EAR (35) PAD (peripheral artery disease) Code(s): I73.9 - PERIPHERAL VASCULAR DISEASE, UNSPECIFIED (36) Pancytopenia Code(s): D61.818 - OTHER PANCYTOPENIA (37) Positive blood cultures Code(s): R78.81 - BACTEREMIA (38) SIRS (systemic inflammatory response syndrome) Code(s): R65.10 - SIRS OF NON-INFECTIOUS ORIGIN W/O ACUTE ORGAN DYSFUNCTION (39) Scleral icterus Code(s): R17 - UNSPECIFIED JAUNDICE (40) Staghorn calculus Code(s): N20.0 - CALCULUS OF KIDNEY (41) Thrombocytopenia Code(s): D69.6 - THROMBOCYTOPENIA, UNSPECIFIED (42) Thrombocytopenia Code(s): D69.6 - THROMBOCYTOPENIA, UNSPECIFIED (43) UTI (urinary tract infection) Code(s): N39.0 - URINARY TRACT INFECTION, SITE NOT SPECIFIED Qualifiers: Urinary tract infection type: site unspecified Hematuria presence: with hematuria Qualified Code(s): N39.0 - Urinary tract infection, site not specified; R31.9 - Hematuria, unspecified (44) Vomiting Code(s): R11.10 - VOMITING, UNSPECIFIED Qualifiers: Vomiting type: unspecified Vomiting Intractability: unspecified Nausea presence: with nausea Qualified Code(s): R11.2 - Nausea with vomiting, unspecified Assessment/Plan 73-year-old lady with a past medical history of hepatitis B, CLL (last round of rituximab July 2018), pancytopenia, G.I. bleed, CHF, dementia, CRI and hypertension who presented to the emergency department from [facility] with pancytopenia,. edema and LLext cellulitis Plan; Cont abx cardiac dyson stable Patient is asymptomatic and with increased Cr - would not recommend lasix for now
--- NOTE | 2019-01-20 14:27 | PN ---
Progress Note, Physician Chief Complaint: OOB to chair NAD VSS had some oozing from the port CBC ordered - Current Medication List Current Medications: Active Medications Acetaminophen (Tylenol -) 650 mg PO Q6H PRN PRN Reason: FEVER Allopurinol (Zyloprim -) 300 mg PO DAILY [facility] Last Admin: 01/20/19 09:08 Dose: 300 mg Amlodipine Besylate (Norvasc -) 5 mg PO DAILY [facility] Last Admin: 01/20/19 09:07 Dose: 5 mg Folic Acid (Folic Acid -) 1 mg PO DAILY [facility] Last Admin: 01/20/19 09:07 Dose: 1 mg Daptomycin 350 mg/ Sodium (Chloride) 50 mls @ 100 mls/hr IVPB Q48H [facility]; Protocol Last Admin: 01/19/19 17:40 Dose: 100 mls/hr Lamivudine (Epivir Oral Solution -) 100 mg PO DAILY [facility] Last Admin: 01/20/19 09:07 Dose: 100 mg Olanzapine (Zyprexa -) 10 mg PO DAILY [facility] Last Admin: 01/20/19 09:07 Dose: 10 mg Pantoprazole Sodium (Protonix -) 20 mg PO DAILY [facility] Last Admin: 01/20/19 09:08 Dose: 20 mg Quetiapine Fumarate (Seroquel -) 25 mg PO HS [facility] Last Admin: 01/19/19 23:32 Dose: 25 mg - Objective Vital Signs: Vital Signs Temperature 98.3 F 01/20/19 10:00 Pulse Rate 73 01/20/19 10:00 Respiratory Rate 18 01/20/19 10:00 Blood Pressure 129/68 01/20/19 10:00 O2 Sat by Pulse Oximetry (%) 97 01/20/19 09:00 Constitutional: Yes: No Distress Eyes: Yes: Conjunctiva Clear HENT: Yes: Atraumatic Neck: Yes: Supple Cardiovascular: Yes: Regular Rate and Rhythm Respiratory: Yes: Diminished Gastrointestinal: Yes: Soft. No: Tenderness Genitourinary: No: Hematuria Extremities: No: Cold, Cool Edema: No Integumentary: Yes: Rash (LLE ankle) Neurological: Yes: Alert ...Motor Strength: WNL Psychiatric: Yes: Alert. No: Agitated, Suicidal Ideation Labs: CBC, BMP 01/19/19 14:32 01/19/19 11:28 INR, PTT INR 1.11 (0.83-1.09) H 01/19/19 14:32 Fibrinogen > 500.0 mg/dL (238-498) H 01/19/19 14:32 - ....Imaging Other: Report Reviewed Assessment/Plan 73F PMH CLL, pancytopenia, HBV, HTN, CHF, and [facility] legs edema bilat and LLE rash / cellulitis. s/ p recent sepsis. Currently on a 4 week course of IV daptomycin via port. Allergy - VANCOMYCIN IV ATB ID f/u; heme f/u PRBC, sq neupogen prn for low WBC; cardio f/u f/u labs and cultures falls pfx d/w pt and staff
--- NOTE | 2019-01-20 14:36 | PN ---
Progress Note (short form) - Note Progress Note: Hematology and oncology follow up Subjective: Patient seen and examined at bedside. no new complaints. No events overnight Objective: Vital Signs Temperature 98.3 F 01/20/19 10:00 Pulse Rate 73 01/20/19 10:00 Respiratory Rate 18 01/20/19 10:00 Blood Pressure 129/68 01/20/19 10:00 O2 Sat by Pulse Oximetry (%) 97 01/20/19 09:00 Physical Exam: Gen: patient well appearing, in NAD HEENT: clear. Lung: clear to auscultation b/l down to the bases Heart: rrr, s1, s2, heard no murmurs, gallops, rubs. Abdomen: soft, nontender, nondistended, bowel sounds heard Active Medications Acetaminophen (Tylenol -) 650 mg PO Q6H PRN PRN Reason: FEVER Allopurinol (Zyloprim -) 300 mg PO DAILY [facility] Last Admin: 01/19/19 09:53 Dose: 300 mg Amlodipine Besylate (Norvasc -) 5 mg PO DAILY [facility] Last Admin: 01/19/19 09:53 Dose: 5 mg Folic Acid (Folic Acid -) 1 mg PO DAILY [facility] Last Admin: 01/19/19 09:53 Dose: 1 mg Daptomycin 350 mg/ Sodium (Chloride) 50 mls @ 100 mls/hr IVPB Q48H [facility]; Protocol Last Admin: 01/17/19 17:53 Dose: 100 mls/hr Lamivudine (Epivir Oral Solution -) 100 mg PO DAILY [facility] Last Admin: 01/19/19 09:53 Dose: 100 mg Olanzapine (Zyprexa -) 10 mg PO DAILY [facility] Last Admin: 01/19/19 09:53 Dose: 10 mg Pantoprazole Sodium (Protonix -) 20 mg PO DAILY [facility] Last Admin: 01/19/19 09:53 Dose: 20 mg Quetiapine Fumarate (Seroquel -) 25 mg PO HS [facility] Last Admin: 01/18/19 22:34 Dose: 25 mg Home Medications Medication Instructions Recorded Allopurinol [Zyloprim -] 300 mg PO DAILY #90 tablet 04/13/18 Amlodipine Besylate [Norvasc -] 5 mg PO DAILY #90 tablet 08/26/18 Olanzapine [Zyprexa -] 10 mg PO DAILY 10/08/18 Pantoprazole Sodium [Protonix -] 20 mg PO DAILY 10/08/18 Folic Acid - 1 mg PO DAILY tablet 10/19/18 Lamivudine [Lamivudine Hbv] 100 mg PO DAILY 11/01/18 Quetiapine Fumarate [Seroquel -] 25 mg PO HS 12/21/18 Acetaminophen [Tylenol .Regular 650 mg PO Q6H PRN tablet 01/04/19 Strength -] Daptomycin [Cubicin (Restricted 350 mg IVPB DAILY #0 vial 01/04/19 To Id) -] CBC, BMP 01/19/19 14:32 01/19/19 11:28 Assessment and plan: 73-year-old lady with a past medical history of hepatitis B, CLL (last round of rituximab July 2018), pancytopenia, G.I. bleed, CHF, dementia and hypertension who presented to the emergency department from [facility] because she was found to have a low Hb. In the emergency department, she was found to have a Hb 6.8 and a leukopenia to 1.4. She was transfused 2u PRBC overnight and her repeat Hb was 10.5. #Pancytopenia likely 2/2 bone marrow supression in the setting of CLL vs other autoimmune process -f/u hemolysis workup -ANC/ WBC improving daily -sent flow cytometry/FISH/Cytogenetics today; will f/u results #LLE erythema; possible cellulitis -monitor closely -afebrile, not warm -unchanged today
[2019-01-20] MEDS: QUEtiapine FUMARATE 25 MG TABLET (FP) PO SCH (21:02)
[2019-01-21 06:31] LABS: BASO % 1.5 % (0-2.0); EOS % 4.6 % (0-4.5); HEMATOCRIT 28.2 % (32.4-45.2); HEMOGLOBIN 9.7 GM/dL (10.7-15.3); LYMPH % 48.6 % (8-40); MCH 28.7 pg (25.7-33.7); MCHC 34.4 g/dl (32.0-36.0); MEAN CELL VOLUME 83.5 fl (80-96); MEAN PLT VOLUME 8.7 fl (7.5-11.1); MONO % 10.5 % (3.8-10.2); NEUT % 34.8 % (42.8-82.8); PLATELET COUNT 145 K/MM3 (134-434); RBC 3.38 M/mm3 (3.60-5.2); RDW 20.2 % (11.6-15.6)
[2019-01-21 06:40] LABS: WHITE BLOOD COUNT 1.6 K/mm3 (4.0-10.0)
[2019-01-21 06:53] LABS: ALBUMIN 3.1 g/dl (3.4-5.0); BILIRUBIN,TOTAL 0.9 mg/dL (0.2-1); BLOOD UREA NITROGEN 40.8 mg/dL (7-18); CALCIUM 8.9 mg/dL (8.5-10.1); CREATININE 1.7 mg/dL (0.55-1.3); POTASSIUM 4.4 mmol/L (3.5-5.1); TOT PROT 5.8 g/dl (6.4-8.2)
[2019-01-21] MEDS: PANTOPRAZOLE 20 MG TABLET (FP) PO SCH (09:45)
[2019-01-21] MEDS: FOLIC ACID 1 MG TABLET (FP) PO SCH (09:45)
[2019-01-21] MEDS: lamiVUDine 10 MG/1 ML BULK BOTTLE PO SCH (09:45)
[2019-01-21] MEDS: OLANZapine 10 MG TABLET PO SCH (09:45)
[2019-01-21] MEDS: amLODIPine BESYLATE 5 MG TABLET (FP) PO SCH (09:45)
[2019-01-21] MEDS: ALLOPURINOL 300 MG TABLET (FP) PO SCH (09:45)
--- NOTE | 2019-01-21 10:14 | PN ---
Progress Note, Physician Chief Complaint: in bed no new c/o; feels tired; CBC noted; UCx polymycrobial noted - f/u with ID per nurse had some port problems seen by ONC today LLE rash better. - Current Medication List Current Medications: Active Medications Acetaminophen (Tylenol -) 650 mg PO Q6H PRN PRN Reason: FEVER Allopurinol (Zyloprim -) 300 mg PO DAILY [facility] Last Admin: 01/21/19 09:45 Dose: 300 mg Amlodipine Besylate (Norvasc -) 5 mg PO DAILY [facility] Last Admin: 01/21/19 09:45 Dose: Not Given Folic Acid (Folic Acid -) 1 mg PO DAILY [facility] Last Admin: 01/21/19 09:45 Dose: 1 mg Daptomycin 350 mg/ Sodium (Chloride) 50 mls @ 100 mls/hr IVPB Q48H [facility]; Protocol Last Admin: 01/19/19 17:40 Dose: 100 mls/hr Lamivudine (Epivir Oral Solution -) 100 mg PO DAILY [facility] Last Admin: 01/21/19 09:45 Dose: 100 mg Olanzapine (Zyprexa -) 10 mg PO DAILY [facility] Last Admin: 01/21/19 09:45 Dose: 10 mg Pantoprazole Sodium (Protonix -) 20 mg PO DAILY [facility] Last Admin: 01/21/19 09:45 Dose: 20 mg Quetiapine Fumarate (Seroquel -) 25 mg PO HS [facility] Last Admin: 01/20/19 21:02 Dose: 25 mg - Objective Vital Signs: Vital Signs Temperature 98.2 F 01/21/19 06:04 Pulse Rate 83 01/21/19 06:04 Respiratory Rate 18 01/21/19 06:04 Blood Pressure 129/58 L 01/21/19 06:04 O2 Sat by Pulse Oximetry (%) 97 01/20/19 21:00 Constitutional: Yes: No Distress, Calm Eyes: Yes: Conjunctiva Clear HENT: Yes: Atraumatic Neck: Yes: Supple Cardiovascular: Yes: Regular Rate and Rhythm Respiratory: Yes: Diminished Gastrointestinal: Yes: Soft. No: Tenderness Genitourinary: No: Hematuria Musculoskeletal: No: Joint Stiffness, Joint Swelling Extremities: No: Cold, Cool Edema: No Integumentary: Yes: Rash (LLE BETTER) Neurological: Yes: Alert ...Motor Strength: WNL Psychiatric: Yes: Alert. No: Agitated Labs: CBC, BMP 01/21/19 05:50 01/21/19 05:50 INR, PTT INR 1.11 (0.83-1.09) H 01/19/19 14:32 Fibrinogen > 500.0 mg/dL (238-498) H 01/19/19 14:32 - ....Imaging Other: Report Reviewed Assessment/Plan 73F PMH CLL, pancytopenia, HBV, HTN, CHF, and [facility] and legs edema bilat and LLE rash / cellulitis. s/ p recent sepsis. Currently on a 4 week course of IV daptomycin via port. Allergy - VANCOMYCIN IV ATB ID f/u; to address UCx heme onc f/u - port check; will d/w ONC if needed will ask vascular sx PA / PRBC, sq neupogen prn for low WBC; cardio f/u f/u labs and cultures falls pfx d/w pt and staff
[2019-01-21 11:10] LABS: ANISOCYTOSIS 1+; MACROCYTOSIS 0; OVALOCYTE 1+; PLATELET ESTIMATE DECREASED; TARGET CELLS 1+; TEAR DROP CELLS 1+
--- NOTE | 2019-01-21 16:12 | PN ---
Progress Note, Physician History of Present Illness: 73F PMH CLL, pancytopenia, HBV, HTN, CHF, and dementia/confusion BIBEMS from [facility] for low Hgb. Patient is confused and a poor/unreliable historian. She is on reverse isolation 2/2 CLL. Per OR records, H/H 6.7 / 21. WBC 1.4. Patient was recently discharged from [facility] admission 2/2 sepsis. Currently on a 4 week course of IV daptomycin via port. She does not offer any co and said she wants to go home. Allergy - VANCOMYCIN PMH CRI HTN Hyperlipidemia Negative MIBI stress test June 2013 Nephroliyhiasis PAD 50-70 ICA stenosis 2012 - Current Medication List Current Medications: Active Medications Acetaminophen (Tylenol -) 650 mg PO Q6H PRN PRN Reason: FEVER Allopurinol (Zyloprim -) 300 mg PO DAILY [facility] Last Admin: 01/21/19 09:45 Dose: 300 mg Amlodipine Besylate (Norvasc -) 5 mg PO DAILY [facility] Last Admin: 01/21/19 09:45 Dose: Not Given Cephalexin HCl (Keflex -) 500 mg PO BID [facility] Folic Acid (Folic Acid -) 1 mg PO DAILY [facility] Last Admin: 01/21/19 09:45 Dose: 1 mg Daptomycin 350 mg/ Sodium (Chloride) 50 mls @ 100 mls/hr IVPB Q48H [facility]; Protocol Last Admin: 01/19/19 17:40 Dose: 100 mls/hr Lamivudine (Epivir Oral Solution -) 100 mg PO DAILY [facility] Last Admin: 01/21/19 09:45 Dose: 100 mg Olanzapine (Zyprexa -) 10 mg PO DAILY [facility] Last Admin: 01/21/19 09:45 Dose: 10 mg Pantoprazole Sodium (Protonix -) 20 mg PO DAILY [facility] Last Admin: 01/21/19 09:45 Dose: 20 mg Quetiapine Fumarate (Seroquel -) 25 mg PO HS [facility] Last Admin: 01/20/19 21:02 Dose: 25 mg - Objective Vital Signs: Vital Signs Temperature 98.7 F 01/21/19 14:30 Pulse Rate 76 01/21/19 14:30 Respiratory Rate 18 01/21/19 14:30 Blood Pressure 110/56 L 01/21/19 14:30 O2 Sat by Pulse Oximetry (%) 98 01/21/19 09:00 Eyes: Yes: WNL, Conjunctiva Clear, EOM Intact HENT: Yes: WNL, Atraumatic, Normocephalic Neck: Yes: WNL, Supple, Trachea Midline Cardiovascular: Yes: WNL, Regular Rate and Rhythm Respiratory: Yes: WNL, Regular, CTA Bilaterally Gastrointestinal: Yes: WNL, Normal Bowel Sounds Genitourinary: Yes: WNL Musculoskeletal: Yes: WNL Extremities: Yes: Erythema Edema: No Integumentary: Yes: WNL Neurological: Yes: WNL, Alert, Oriented ...Motor Strength: WNL Psychiatric: Yes: WNL Labs: CBC, BMP 01/21/19 05:50 01/21/19 05:50 INR, PTT INR 1.11 (0.83-1.09) H 01/19/19 14:32 Fibrinogen > 500.0 mg/dL (238-498) H 01/19/19 14:32 Problem List - Problems (1) EBER (acute kidney injury) Code(s): N17.9 - ACUTE KIDNEY FAILURE, UNSPECIFIED (2) Allergy to antibiotic Code(s): Z88.1 - ALLERGY STATUS TO OTHER ANTIBIOTIC AGENTS STATUS (3) Altered mental state Code(s): R41.82 - ALTERED MENTAL STATUS, UNSPECIFIED Qualifiers: Altered mental status type: unspecified Qualified Code(s): R41.82 - Altered mental status, unspecified (4) Anxiety disorder Code(s): F41.9 - ANXIETY DISORDER, UNSPECIFIED (5) Bacteremia Code(s): R78.81 - BACTEREMIA (6) CKD (chronic kidney disease) Code(s): N18.9 - CHRONIC KIDNEY DISEASE, UNSPECIFIED (7) Cellulitis Code(s): L03.90 - CELLULITIS, UNSPECIFIED (8) Cellulitis, abdominal wall Code(s): L03.311 - CELLULITIS OF ABDOMINAL WALL (9) Choledocholithiasis Code(s): K80.50 - CALCULUS OF BILE DUCT W/O CHOLANGITIS OR CHOLECYST W/O OBST (10) Cholelithiasis Code(s): K80.20 - CALCULUS OF GALLBLADDER W/O CHOLECYSTITIS W/O OBSTRUCTION (11) Chronic ITP (idiopathic thrombocytopenic purpura) Code(s): D69.3 - IMMUNE THROMBOCYTOPENIC PURPURA (12) Chronic lymphocytic leukemia Code(s): C91.90 - LYMPHOID LEUKEMIA, UNSPECIFIED NOT HAVING ACHIEVED REMISSION (13) Colonic thickening Code(s): K63.9 - DISEASE OF INTESTINE, UNSPECIFIED (14) Cough Code(s): R05 - COUGH (15) Cyst of left kidney Code(s): N28.1 - CYST OF KIDNEY, ACQUIRED (16) Diastolic CHF Code(s): I50.30 - UNSPECIFIED DIASTOLIC (CONGESTIVE) HEART FAILURE (17) Diverticulitis Code(s): K57.92 - DVTRCLI OF INTEST, PART UNSP, W/O PERF OR ABSCESS W/O BLEED (18) Epistaxis Code(s): R04.0 - EPISTAXIS (19) Fever Code(s): R50.9 - FEVER, UNSPECIFIED Qualifiers: Fever type: unspecified Qualified Code(s): R50.9 - Fever, unspecified (20) GI bleed Code(s): K92.2 - GASTROINTESTINAL HEMORRHAGE, UNSPECIFIED (21) HTN (hypertension) Code(s): I10 - ESSENTIAL (PRIMARY) HYPERTENSION (22) Hemolytic anemia Code(s): D58.9 - HEREDITARY HEMOLYTIC ANEMIA, UNSPECIFIED (23) Hepatitis B Code(s): B19.10 - UNSPECIFIED VIRAL HEPATITIS B WITHOUT HEPATIC COMA (24) Hydronephrosis Code(s): N13.30 - UNSPECIFIED HYDRONEPHROSIS (25) Hyperbilirubinemia Code(s): E80.6 - OTHER DISORDERS OF BILIRUBIN METABOLISM (26) 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 Code(s): D69.59 - OTHER SECONDARY THROMBOCYTOPENIA (27) Jaundice Code(s): R17 - UNSPECIFIED JAUNDICE (28) Leukopenia Code(s): D72.819 - DECREASED WHITE BLOOD CELL COUNT, UNSPECIFIED Qualifiers: Leukopenia type: unspecified Qualified Code(s): D72.819 - Decreased white blood cell count, unspecified (29) Lung nodule, multiple Code(s): R91.8 - OTHER NONSPECIFIC ABNORMAL FINDING OF LUNG FIELD (30) Mesenteric mass Code(s): K63.9 - DISEASE OF INTESTINE, UNSPECIFIED (31) Nephrolithiasis Code(s): N20.0 - CALCULUS OF KIDNEY (32) Neutropenia Code(s): D70.9 - NEUTROPENIA, UNSPECIFIED (33) Neutropenic fever Code(s): D70.9 - NEUTROPENIA, UNSPECIFIED; R50.81 - FEVER PRESENTING WITH CONDITIONS CLASSIFIED ELSEWHERE (34) Otorrhea, right ear Code(s): H92.11 - OTORRHEA, RIGHT EAR (35) PAD (peripheral artery disease) Code(s): I73.9 - PERIPHERAL VASCULAR DISEASE, UNSPECIFIED (36) Pancytopenia Code(s): D61.818 - OTHER PANCYTOPENIA (37) Positive blood cultures Code(s): R78.81 - BACTEREMIA (38) SIRS (systemic inflammatory response syndrome) Code(s): R65.10 - SIRS OF NON-INFECTIOUS ORIGIN W/O ACUTE ORGAN DYSFUNCTION (39) Scleral icterus Code(s): R17 - UNSPECIFIED JAUNDICE (40) Staghorn calculus Code(s): N20.0 - CALCULUS OF KIDNEY (41) Thrombocytopenia Code(s): D69.6 - THROMBOCYTOPENIA, UNSPECIFIED (42) Thrombocytopenia Code(s): D69.6 - THROMBOCYTOPENIA, UNSPECIFIED (43) UTI (urinary tract infection) Code(s): N39.0 - URINARY TRACT INFECTION, SITE NOT SPECIFIED Qualifiers: Urinary tract infection type: site unspecified Hematuria presence: with hematuria Qualified Code(s): N39.0 - Urinary tract infection, site not specified; R31.9 - Hematuria, unspecified (44) Vomiting Code(s): R11.10 - VOMITING, UNSPECIFIED Qualifiers: Vomiting type: unspecified Vomiting Intractability: unspecified Nausea presence: with nausea Qualified Code(s): R11.2 - Nausea with vomiting, unspecified Assessment/Plan 73-year-old lady with a past medical history of hepatitis B, CLL (last round of rituximab July 2018), pancytopenia, G.I. bleed, CHF, dementia, CRI and hypertension who presented to the emergency department from [facility] with pancytopenia,. edema and LLext cellulitis Plan; Cont abx f/u bun/cr cardiac dyson stable Patient is asymptomatic and with increased Cr - would not recommend lasix for now
--- NOTE | 2019-01-21 16:15 | PN ---
Progress Note, Physician History of Present Illness: AWAKE, ALERT NON TOXIC APPEARING OFFERS NO COMPLAINTS DENIES LEG PAIN OR URINARY TRACT COMPLAINTS WBC REMAINS LOW - Current Medication List Current Medications: Active Medications Acetaminophen (Tylenol -) 650 mg PO Q6H PRN PRN Reason: FEVER Allopurinol (Zyloprim -) 300 mg PO DAILY [facility] Last Admin: 01/21/19 09:45 Dose: 300 mg Amlodipine Besylate (Norvasc -) 5 mg PO DAILY [facility] Last Admin: 01/21/19 09:45 Dose: Not Given Cephalexin HCl (Keflex -) 500 mg PO BID [facility] Folic Acid (Folic Acid -) 1 mg PO DAILY [facility] Last Admin: 01/21/19 09:45 Dose: 1 mg Daptomycin 350 mg/ Sodium (Chloride) 50 mls @ 100 mls/hr IVPB Q48H [facility]; Protocol Last Admin: 01/19/19 17:40 Dose: 100 mls/hr Lamivudine (Epivir Oral Solution -) 100 mg PO DAILY [facility] Last Admin: 01/21/19 09:45 Dose: 100 mg Olanzapine (Zyprexa -) 10 mg PO DAILY [facility] Last Admin: 01/21/19 09:45 Dose: 10 mg Pantoprazole Sodium (Protonix -) 20 mg PO DAILY [facility] Last Admin: 01/21/19 09:45 Dose: 20 mg Quetiapine Fumarate (Seroquel -) 25 mg PO HS [facility] Last Admin: 01/20/19 21:02 Dose: 25 mg - Objective Vital Signs: Vital Signs Temperature 98.7 F 01/21/19 14:30 Pulse Rate 76 01/21/19 14:30 Respiratory Rate 18 01/21/19 14:30 Blood Pressure 110/56 L 01/21/19 14:30 O2 Sat by Pulse Oximetry (%) 98 01/21/19 09:00 Constitutional: Yes: No Distress Cardiovascular: Yes: Regular Rate and Rhythm, S1, S2 Respiratory: Yes: CTA Bilaterally Gastrointestinal: Yes: Normal Bowel Sounds, Soft Extremities: Yes: Other (+ ERYTHEMA DISTAL LE PRETIBIAL AREA) Labs: CBC, BMP 01/21/19 05:50 01/21/19 05:50 INR, PTT INR 1.11 (0.83-1.09) H 01/19/19 14:32 Fibrinogen > 500.0 mg/dL (238-498) H 01/19/19 14:32 Assessment/Plan MRSA BACTEREMIA DAY #26/ ANTIBIOTIC THERAPY LEUKOPENIA/NEUTROPENIA ?UTI R/O L LE CELLULITIS CLL AZOTEMIA COMPLETE ADDITIONAL 48H DAPTOMYCIN KEFLEX PO FOR UTI
[2019-01-21] MEDS: DAPTOMYCIN 350 MG in SODIUM CHLORIDE 50 ML IVPB SCH (17:36)
[2019-01-21] MEDS: CEPHALEXIN MONOHYDRATE 500 MG CAPSULE (UD) PO SCH (21:53)
[2019-01-21] MEDS: QUEtiapine FUMARATE 25 MG TABLET (FP) PO SCH (21:53)
[2019-01-22 06:12] LABS: BASO % 1.3 % (0-2.0); EOS % 5.2 % (0-4.5); HEMATOCRIT 27.5 % (32.4-45.2); HEMOGLOBIN 9.1 GM/dL (10.7-15.3); LYMPH % 45.3 % (8-40); MCH 27.8 pg (25.7-33.7); MCHC 33.1 g/dl (32.0-36.0); MEAN PLT VOLUME 9.6 fl (7.5-11.1); MONO % 9.4 % (3.8-10.2); NEUT % 38.8 % (42.8-82.8); PLATELET COUNT 148 K/MM3 (134-434); RBC 3.27 M/mm3 (3.60-5.2)
[2019-01-22 06:20] LABS: WHITE BLOOD COUNT 1.6 K/mm3 (4.0-10.0)
[2019-01-22 06:53] LABS: ALBUMIN 2.9 g/dl (3.4-5.0); BILIRUBIN,TOTAL 0.6 mg/dL (0.2-1); BLOOD UREA NITROGEN 41.9 mg/dL (7-18); CALCIUM 9.1 mg/dL (8.5-10.1); CREATININE 1.8 mg/dL (0.55-1.3); POTASSIUM 3.9 mmol/L (3.5-5.1); TOT PROT 5.4 g/dl (6.4-8.2)
[2019-01-22] MEDS ORDERED: PT OWN MED DRAWER 7, Y5N ONE (08:56)
--- NOTE | 2019-01-22 09:15 | PN ---
Progress Note, Physician Chief Complaint: in bed no c/o feels well afebrile - Current Medication List Current Medications: Active Medications Acetaminophen (Tylenol -) 650 mg PO Q6H PRN PRN Reason: FEVER Allopurinol (Zyloprim -) 300 mg PO DAILY [facility] Last Admin: 01/21/19 09:45 Dose: 300 mg Amlodipine Besylate (Norvasc -) 5 mg PO DAILY [facility] Last Admin: 01/21/19 09:45 Dose: Not Given Cephalexin HCl (Keflex -) 500 mg PO BID [facility] Last Admin: 01/21/19 21:53 Dose: 500 mg Folic Acid (Folic Acid -) 1 mg PO DAILY [facility] Last Admin: 01/21/19 09:45 Dose: 1 mg Daptomycin 350 mg/ Sodium (Chloride) 50 mls @ 100 mls/hr IVPB Q48H [facility]; Protocol Last Admin: 01/21/19 17:36 Dose: 100 mls/hr Lamivudine (Epivir Oral Solution -) 100 mg PO DAILY [facility] Last Admin: 01/21/19 09:45 Dose: 100 mg Olanzapine (Zyprexa -) 10 mg PO DAILY [facility] Last Admin: 01/21/19 09:45 Dose: 10 mg Pantoprazole Sodium (Protonix -) 20 mg PO DAILY [facility] Last Admin: 01/21/19 09:45 Dose: 20 mg Quetiapine Fumarate (Seroquel -) 25 mg PO HS [facility] Last Admin: 01/21/19 21:53 Dose: 25 mg - Objective Vital Signs: Vital Signs Temperature 98.5 F 01/22/19 06:00 Pulse Rate 67 01/22/19 06:00 Respiratory Rate 18 01/22/19 06:00 Blood Pressure 101/43 L 01/22/19 06:00 O2 Sat by Pulse Oximetry (%) 98 01/21/19 21:00 Constitutional: Yes: No Distress Eyes: Yes: Conjunctiva Clear HENT: Yes: Atraumatic Neck: Yes: Supple Cardiovascular: Yes: Regular Rate and Rhythm Respiratory: Yes: CTA Bilaterally Gastrointestinal: Yes: Soft. No: Tenderness Genitourinary: No: Hematuria Musculoskeletal: No: Joint Stiffness, Joint Swelling Extremities: No: Cold, Cool Edema: No Integumentary: Yes: Rash (LLE ankle much better) Neurological: Yes: WNL, Alert, Oriented ...Motor Strength: WNL Psychiatric: Yes: WNL, Alert, Oriented. No: Agitated, Suicidal Ideation Labs: CBC, BMP 01/22/19 05:30 01/22/19 05:30 INR, PTT INR 1.11 (0.83-1.09) H 01/19/19 14:32 Fibrinogen > 500.0 mg/dL (238-498) H 01/19/19 14:32 - ....Imaging Other: Report Reviewed Assessment/Plan 73F PMH CLL, pancytopenia, HBV, HTN, CHF, and [facility] low WBC and legs edema bilat and LLE rash / cellulitis. s/ p recent sepsis. Currently on a 4 week course of IV daptomycin via port. Allergy - VANCOMYCIN IV ATB ID f/u; po keflex per ID / UTI heme onc f/u - port check; cardio f/u f/u labs and cultures falls pfx d/w pt and staff
[2019-01-22] MEDS: CEPHALEXIN MONOHYDRATE 500 MG CAPSULE (UD) PO SCH ×2 (09:52→21:12)
[2019-01-22] MEDS: lamiVUDine 10 MG/1 ML BULK BOTTLE PO SCH (09:52)
[2019-01-22] MEDS: ALLOPURINOL 300 MG TABLET (FP) PO SCH (09:53)
[2019-01-22] MEDS: PANTOPRAZOLE 20 MG TABLET (FP) PO SCH (09:53)
[2019-01-22] MEDS: FOLIC ACID 1 MG TABLET (FP) PO SCH (09:53)
[2019-01-22] MEDS: OLANZapine 10 MG TABLET PO SCH (09:53)
[2019-01-22] MEDS: amLODIPine BESYLATE 5 MG TABLET (FP) PO SCH (09:53)
--- NOTE | 2019-01-22 10:28 | PN ---
Progress Note, Physician History of Present Illness: 73F PMH CLL, pancytopenia, HBV, HTN, CHF, and dementia/confusion BIBEMS from [facility] for low Hgb. Patient is confused and a poor/unreliable historian. She is on reverse isolation 2/2 CLL. Per [place] records, H/H 6.7 / 21. WBC 1.4. Patient was recently discharged from [facility] admission 2/2 sepsis. Currently on a 4 week course of IV daptomycin via port. She does not offer any co and said she wants to go home. Allergy - VANCOMYCIN PMH CRI HTN Hyperlipidemia Negative MIBI stress test June 2013 Nephroliyhiasis PAD 50-70 ICA stenosis 2012 - Current Medication List Current Medications: Active Medications Acetaminophen (Tylenol -) 650 mg PO Q6H PRN PRN Reason: FEVER Allopurinol (Zyloprim -) 300 mg PO DAILY [facility] Last Admin: 01/22/19 09:53 Dose: 300 mg Amlodipine Besylate (Norvasc -) 5 mg PO DAILY [facility] Last Admin: 01/22/19 09:53 Dose: 5 mg Cephalexin HCl (Keflex -) 500 mg PO BID [facility] Last Admin: 01/22/19 09:52 Dose: 500 mg Folic Acid (Folic Acid -) 1 mg PO DAILY [facility] Last Admin: 01/22/19 09:53 Dose: 1 mg Daptomycin 350 mg/ Sodium (Chloride) 50 mls @ 100 mls/hr IVPB Q48H [facility]; Protocol Last Admin: 01/21/19 17:36 Dose: 100 mls/hr Lamivudine (Epivir Oral Solution -) 100 mg PO DAILY [facility] Last Admin: 01/22/19 09:52 Dose: 100 mg Olanzapine (Zyprexa -) 10 mg PO DAILY [facility] Last Admin: 01/22/19 09:53 Dose: 10 mg Pantoprazole Sodium (Protonix -) 20 mg PO DAILY [facility] Last Admin: 01/22/19 09:53 Dose: 20 mg Quetiapine Fumarate (Seroquel -) 25 mg PO HS [facility] Last Admin: 01/21/19 21:53 Dose: 25 mg - Objective Vital Signs: Vital Signs Temperature 98.5 F 01/22/19 06:00 Pulse Rate 67 01/22/19 06:00 Respiratory Rate 18 01/22/19 06:00 Blood Pressure 101/43 L 01/22/19 06:00 O2 Sat by Pulse Oximetry (%) 98 01/21/19 21:00 Eyes: Yes: WNL, Conjunctiva Clear, EOM Intact HENT: Yes: WNL, Atraumatic, Normocephalic Neck: Yes: WNL, Supple, Trachea Midline Cardiovascular: Yes: WNL, Regular Rate and Rhythm Respiratory: Yes: WNL, Regular, CTA Bilaterally Gastrointestinal: Yes: WNL, Normal Bowel Sounds Genitourinary: Yes: WNL Musculoskeletal: Yes: WNL Extremities: Yes: WNL Edema: No Integumentary: Yes: WNL Neurological: Yes: WNL, Alert, Oriented ...Motor Strength: WNL Psychiatric: Yes: WNL Labs: CBC, BMP 01/22/19 05:30 01/22/19 05:30 INR, PTT INR 1.11 (0.83-1.09) H 01/19/19 14:32 Fibrinogen > 500.0 mg/dL (238-498) H 01/19/19 14:32 Problem List - Problems (1) EBER (acute kidney injury) Code(s): N17.9 - ACUTE KIDNEY FAILURE, UNSPECIFIED (2) Allergy to antibiotic Code(s): Z88.1 - ALLERGY STATUS TO OTHER ANTIBIOTIC AGENTS STATUS (3) Altered mental state Code(s): R41.82 - ALTERED MENTAL STATUS, UNSPECIFIED Qualifiers: Altered mental status type: unspecified Qualified Code(s): R41.82 - Altered mental status, unspecified (4) Anxiety disorder Code(s): F41.9 - ANXIETY DISORDER, UNSPECIFIED (5) Bacteremia Code(s): R78.81 - BACTEREMIA (6) CKD (chronic kidney disease) Code(s): N18.9 - CHRONIC KIDNEY DISEASE, UNSPECIFIED (7) Cellulitis Code(s): L03.90 - CELLULITIS, UNSPECIFIED (8) Cellulitis, abdominal wall Code(s): L03.311 - CELLULITIS OF ABDOMINAL WALL (9) Choledocholithiasis Code(s): K80.50 - CALCULUS OF BILE DUCT W/O CHOLANGITIS OR CHOLECYST W/O OBST (10) Cholelithiasis Code(s): K80.20 - CALCULUS OF GALLBLADDER W/O CHOLECYSTITIS W/O OBSTRUCTION (11) Chronic ITP (idiopathic thrombocytopenic purpura) Code(s): D69.3 - IMMUNE THROMBOCYTOPENIC PURPURA (12) Chronic lymphocytic leukemia Code(s): C91.90 - LYMPHOID LEUKEMIA, UNSPECIFIED NOT HAVING ACHIEVED REMISSION (13) Colonic thickening Code(s): K63.9 - DISEASE OF INTESTINE, UNSPECIFIED (14) Cough Code(s): R05 - COUGH (15) Cyst of left kidney Code(s): N28.1 - CYST OF KIDNEY, ACQUIRED (16) Diastolic CHF Code(s): I50.30 - UNSPECIFIED DIASTOLIC (CONGESTIVE) HEART FAILURE (17) Diverticulitis Code(s): K57.92 - DVTRCLI OF INTEST, PART UNSP, W/O PERF OR ABSCESS W/O BLEED (18) Epistaxis Code(s): R04.0 - EPISTAXIS (19) Fever Code(s): R50.9 - FEVER, UNSPECIFIED Qualifiers: Fever type: unspecified Qualified Code(s): R50.9 - Fever, unspecified (20) GI bleed Code(s): K92.2 - GASTROINTESTINAL HEMORRHAGE, UNSPECIFIED (21) HTN (hypertension) Code(s): I10 - ESSENTIAL (PRIMARY) HYPERTENSION (22) Hemolytic anemia Code(s): D58.9 - HEREDITARY HEMOLYTIC ANEMIA, UNSPECIFIED (23) Hepatitis B Code(s): B19.10 - UNSPECIFIED VIRAL HEPATITIS B WITHOUT HEPATIC COMA (24) Hydronephrosis Code(s): N13.30 - UNSPECIFIED HYDRONEPHROSIS (25) Hyperbilirubinemia Code(s): E80.6 - OTHER DISORDERS OF BILIRUBIN METABOLISM (26) 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 Code(s): D69.59 - OTHER SECONDARY THROMBOCYTOPENIA (27) Jaundice Code(s): R17 - UNSPECIFIED JAUNDICE (28) Leukopenia Code(s): D72.819 - DECREASED WHITE BLOOD CELL COUNT, UNSPECIFIED Qualifiers: Leukopenia type: unspecified Qualified Code(s): D72.819 - Decreased white blood cell count, unspecified (29) Lung nodule, multiple Code(s): R91.8 - OTHER NONSPECIFIC ABNORMAL FINDING OF LUNG FIELD (30) Mesenteric mass Code(s): K63.9 - DISEASE OF INTESTINE, UNSPECIFIED (31) Nephrolithiasis Code(s): N20.0 - CALCULUS OF KIDNEY (32) Neutropenia Code(s): D70.9 - NEUTROPENIA, UNSPECIFIED (33) Neutropenic fever Code(s): D70.9 - NEUTROPENIA, UNSPECIFIED; R50.81 - FEVER PRESENTING WITH CONDITIONS CLASSIFIED ELSEWHERE (34) Otorrhea, right ear Code(s): H92.11 - OTORRHEA, RIGHT EAR (35) PAD (peripheral artery disease) Code(s): I73.9 - PERIPHERAL VASCULAR DISEASE, UNSPECIFIED (36) Pancytopenia Code(s): D61.818 - OTHER PANCYTOPENIA (37) Positive blood cultures Code(s): R78.81 - BACTEREMIA (38) SIRS (systemic inflammatory response syndrome) Code(s): R65.10 - SIRS OF NON-INFECTIOUS ORIGIN W/O ACUTE ORGAN DYSFUNCTION (39) Scleral icterus Code(s): R17 - UNSPECIFIED JAUNDICE (40) Staghorn calculus Code(s): N20.0 - CALCULUS OF KIDNEY (41) Thrombocytopenia Code(s): D69.6 - THROMBOCYTOPENIA, UNSPECIFIED (42) Thrombocytopenia Code(s): D69.6 - THROMBOCYTOPENIA, UNSPECIFIED (43) UTI (urinary tract infection) Code(s): N39.0 - URINARY TRACT INFECTION, SITE NOT SPECIFIED Qualifiers: Urinary tract infection type: site unspecified Hematuria presence: with hematuria Qualified Code(s): N39.0 - Urinary tract infection, site not specified; R31.9 - Hematuria, unspecified (44) Vomiting Code(s): R11.10 - VOMITING, UNSPECIFIED Qualifiers: Vomiting type: unspecified Vomiting Intractability: unspecified Nausea presence: with nausea Qualified Code(s): R11.2 - Nausea with vomiting, unspecified Assessment/Plan 73-year-old lady with a past medical history of hepatitis B, CLL (last round of rituximab July 2018), pancytopenia, G.I. bleed, CHF, dementia, CRI and hypertension who presented to the emergency department from [facility] with pancytopenia,. edema and LLext cellulitis Plan; Cont abx f/u bun/cr cardiac dyson stable Patient is asymptomatic and with increased Cr - would not recommend lasix for now
--- NOTE | 2019-01-22 12:31 | PN ---
Progress Note (short form) - Note Progress Note: Patient seen in follow up. No new complaints. No significant events overnight. Port not being used - ?leaking previously. Inpatient Meds reviewed. Current Medications Acetaminophen (Tylenol -) 650 mg PO Q6H PRN PRN Reason: FEVER Allopurinol (Zyloprim -) 300 mg PO DAILY [facility] Last Admin: 01/22/19 09:53 Dose: 300 mg Amlodipine Besylate (Norvasc -) 5 mg PO DAILY [facility] Last Admin: 01/22/19 09:53 Dose: 5 mg Cephalexin HCl (Keflex -) 500 mg PO BID [facility] Last Admin: 01/22/19 09:52 Dose: 500 mg Folic Acid (Folic Acid -) 1 mg PO DAILY [facility] Last Admin: 01/22/19 09:53 Dose: 1 mg Daptomycin 350 mg/ Sodium (Chloride) 50 mls @ 100 mls/hr IVPB Q48H [facility]; Protocol Last Admin: 01/21/19 17:36 Dose: 100 mls/hr Lamivudine (Epivir Oral Solution -) 100 mg PO DAILY [facility] Last Admin: 01/22/19 09:52 Dose: 100 mg Olanzapine (Zyprexa -) 10 mg PO DAILY [facility] Last Admin: 01/22/19 09:53 Dose: 10 mg Pantoprazole Sodium (Protonix -) 20 mg PO DAILY [facility] Last Admin: 01/22/19 09:53 Dose: 20 mg Quetiapine Fumarate (Seroquel -) 25 mg PO HS [facility] Last Admin: 01/21/19 21:53 Dose: 25 mg On Examination: Last Vital Signs Temp Pulse Resp BP Pulse Ox 98.1 F 74 18 121/64 98 01/22/19 10:00 01/22/19 10:00 01/22/19 10:00 01/22/19 10:00 01/22/19 09:00 General: In no acute distress, lying comfortably in bed. Extremities: No pallor or icterus. No pedal edema. No palpable lymphadenopathy. CVS: S1, S2, regular, no gallop or murmur. Chest: good air entry bilaterally, clear Abdomen: Non-distended, non-tender, no palpable organomegaly. Neuro: Alert, responsive. Labs: CBC, BMP 01/22/19 05:30 01/22/19 05:30 Assessment. History of CLL/SLL with secondary ITP - last treatment Rituximab July 2018, presenting with unexplained anemia and leukopenia. Etiology of above obscure - guiac negative, and haptoglobin normal on admission , suggesting neither GI hemorrhage nor hemolysis. Concern about blasts seen on initial WC differential - Flow cytometry pending. Abics as per ID, for possible LLE cellulitis, ?UTI. Continue observation - awaiting results.
[2019-01-22 12:38] LABS: ANISOCYTOSIS 1+; MACROCYTOSIS 0; OVALOCYTE 2+; PLATELET ESTIMATE DECREASED
--- NOTE | 2019-01-22 18:02 | CONSULT ---
Consult Consult Specialty:: Nephrology Reason for Consultation:: EBER - History of Present Illness Chief Complaint: sent in for anemia History of Present Illness: Coverage for Dr Duran Pt is a 73 year old female with pmhx of CLL, EBER, pancytopenia, HBV, HTN, dementia and CHF who was sent in for anemia. She is on dapto for a total of 4 weeks via her port. She is confused and unable to give much history. She denies shortness of breath or edema. She denies fevers or chills. She denies dysuria or hematuria. - Past Medical History GSA COORDINATOR: Yes: Dementia Cardio/Vascular: Yes: HTN Gastrointestinal: Yes: Diverticulosis (on CT scan), GI Bleed (02/13 post- sphincterotomy bleed) Hepatobiliary: Yes: Cholelithiasis, Choledocholithiasis (with cholangitis 02/13 requring ERCP & sphincterotomy complicated by a post-sphincterotomy bleed ) Renal/: Yes: Renal Calculi ...: No Psych: Yes: Anxiety Musculoskeletal: Yes: Chronic low back pain - Past Surgical History Past Surgical History: Yes: Tonsillectomy, Upper Endoscopy - Alcohol/Substance Use Hx Alcohol Use: No History of Substance Use: reports: None - Smoking History Smoking history: Never smoked Have you smoked in the past 12 months: No Aproximately how many cigarettes per day: 0 - Social History Usual Living Arrangement: With Child ADL: Independent 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 of Recent Travel: No Home Medications - Allergies Allergies/Adverse Reactions: Allergies Allergy/AdvReac Type Severity Reaction Status Date / Time vancomycin AdvReac Verified 12/26/18 07:37 - Home Medications Home Medications: Ambulatory Orders Allopurinol [Zyloprim -] 300 mg PO DAILY #90 tablet 04/13/18 Amlodipine Besylate [Norvasc -] 5 mg PO DAILY #90 tablet 08/26/18 Olanzapine [Zyprexa -] 10 mg PO DAILY 10/08/18 Pantoprazole Sodium [Protonix -] 20 mg PO DAILY 10/08/18 Folic Acid - 1 mg PO DAILY tablet 10/19/18 Lamivudine [Lamivudine Hbv] 100 mg PO DAILY 11/01/18 Quetiapine Fumarate [Seroquel -] 25 mg PO HS 12/21/18 Acetaminophen [Tylenol .Regular Strength -] 650 mg PO Q6H PRN tablet 01/04/19 Daptomycin [Cubicin (Restricted To Id) -] 350 mg IVPB DAILY #0 vial 01/04/19 Family Medical History Family History: Denies Review of Systems - Review of Systems Constitutional: reports: No Symptoms Eyes: reports: No Symptoms HENT: reports: No Symptoms Neck: reports: No Symptoms Cardiovascular: reports: No Symptoms Respiratory: reports: No Symptoms Gastrointestinal: reports: No Symptoms Genitourinary: reports: No Symptoms Musculoskeletal: reports: No Symptoms Integumentary: reports: No Symptoms Neurological: reports: No Symptoms Endocrine: reports: No Symptoms Hematology/Lymphatic: reports: No Symptoms Psychiatric: reports: No Symptoms Physical Exam Vital Signs: Vital Signs Temperature 97.7 F 01/22/19 14:02 Pulse Rate 76 01/22/19 14:02 Respiratory Rate 18 01/22/19 14:02 Blood Pressure 118/60 01/22/19 14:02 O2 Sat by Pulse Oximetry (%) 98 01/22/19 09:00 Constitutional: Yes: Calm Eyes: Yes: Conjunctiva Clear HENT: Yes: Atraumatic Neck: Yes: Supple Cardiovascular: Yes: S1, S2 Respiratory: Yes: CTA Bilaterally Gastrointestinal: Yes: Normal Bowel Sounds, Soft Renal/: Yes: WNL Musculoskeletal: Yes: WNL Edema: LLE: Trace, RLE: Trace Integumentary: Yes: Erythema Neurological: Yes: Confusion Labs: CBC, BMP 01/22/19 05:30 01/22/19 05:30 Laboratory Tests 10/16/18 10/16/18 10/17/18 06:35 12:35 05:00 Creatinine 1.5 H 1.4 H 1.4 H 12/29/18 12/31/18 01/03/19 06:25 07:13 07:22 Creatinine 1.1 1.2 1.1 01/16/19 01/17/19 01/18/19 22:45 08:31 05:43 Creatinine 1.5 H 1.5 H 1.4 H 01/19/19 01/21/19 01/22/19 11:28 05:50 05:30 Creatinine 1.4 H 1.7 H 1.8 H Problem List - Problems (1) Low hemoglobin Code(s): D64.9 - ANEMIA, UNSPECIFIED (2) EBER (acute kidney injury) Code(s): N17.9 - ACUTE KIDNEY FAILURE, UNSPECIFIED Assessment/Plan Current Medications Generic Name Dose Route Start Last Admin Trade Name Freq PRN Reason Stop Dose Admin Acetaminophen 650 mg 01/17/19 00:35 Tylenol - PO Q6H PRN FEVER Allopurinol 300 mg 01/17/19 10:00 01/22/19 09:53 Zyloprim - PO 300 mg DAILY RYAN Administration Amlodipine Besylate 5 mg 01/17/19 10:00 01/22/19 09:53 Norvasc - PO 5 mg DAILY RYAN Administration Cephalexin HCl 500 mg 01/21/19 22:00 01/22/19 09:52 Keflex - PO 500 mg BID RYAN Administration Folic Acid 1 mg 01/17/19 10:00 01/22/19 09:53 Folic Acid - PO 1 mg DAILY RYAN Administration Daptomycin 350 mg/ Sodium 50 mls @ 100 mls/hr 01/17/19 17:30 01/21/19 17:36 Chloride IVPB 100 mls/hr Q48H RYAN Administration Protocol Lamivudine 100 mg 01/17/19 10:00 01/22/19 09:52 Epivir Oral Solution - PO 100 mg DAILY RYAN Administration Olanzapine 10 mg 01/17/19 10:00 01/22/19 09:53 Zyprexa - PO 10 mg DAILY RYAN Administration Pantoprazole Sodium 20 mg 01/17/19 10:00 01/22/19 09:53 Protonix - PO 20 mg DAILY RYAN Administration Quetiapine Fumarate 25 mg 01/17/19 22:00 01/21/19 21:53 Seroquel - PO 25 mg HS RYAN Administration Impression #EBER #CLL #Anemia #Leukopenia #Hypertension #pancytopenia #cellulitis Plan - check ua - 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
[2019-01-22] MEDS ORDERED: SODIUM CHLORIDE 0.45% 1,000 ML IV SCH (18:45)
[2019-01-22] MEDS: QUEtiapine FUMARATE 25 MG TABLET (FP) PO SCH (21:12)
[2019-01-23 07:29] LABS: BASO % 3.7 % (0-2.0); EOS % 4.8 % (0-4.5); HEMATOCRIT 28.7 % (32.4-45.2); HEMOGLOBIN 9.2 GM/dL (10.7-15.3); LYMPH % 41.9 % (8-40); MCH 27.5 pg (25.7-33.7); MCHC 32.1 g/dl (32.0-36.0); MEAN CELL VOLUME 85.7 fl (80-96); MEAN PLT VOLUME 9.8 fl (7.5-11.1); MONO % 13.9 % (3.8-10.2); NEUT % 35.7 % (42.8-82.8); PLATELET COUNT 153 K/MM3 (134-434); RBC 3.34 M/mm3 (3.60-5.2); RDW 19.6 % (11.6-15.6)
[2019-01-23 08:03] LABS: ALBUMIN 2.8 g/dl (3.4-5.0); BILIRUBIN,TOTAL 0.7 mg/dL (0.2-1); BLOOD UREA NITROGEN 37.2 mg/dL (7-18); CALCIUM 8.8 mg/dL (8.5-10.1); CREATININE 1.7 mg/dL (0.55-1.3); POTASSIUM 4.4 mmol/L (3.5-5.1); TOT PROT 5.6 g/dl (6.4-8.2)
[2019-01-23] MEDS ORDERED: PT OWN MED DRAWER 7, Y5N ONE ×2 (09:25→17:55)
[2019-01-23] MEDS: ALLOPURINOL 300 MG TABLET (FP) PO SCH (09:34)
[2019-01-23] MEDS: amLODIPine BESYLATE 5 MG TABLET (FP) PO SCH (09:34)
[2019-01-23] MEDS: CEPHALEXIN MONOHYDRATE 500 MG CAPSULE (UD) PO SCH ×2 (09:34→21:12)
[2019-01-23] MEDS: PANTOPRAZOLE 20 MG TABLET (FP) PO SCH (09:34)
[2019-01-23] MEDS: FOLIC ACID 1 MG TABLET (FP) PO SCH (09:34)
[2019-01-23] MEDS: OLANZapine 10 MG TABLET PO SCH (09:35)
[2019-01-23] MEDS: lamiVUDine 10 MG/1 ML BULK BOTTLE PO SCH (09:35)
--- NOTE | 2019-01-23 10:53 | PN ---
Progress Note, Physician Chief Complaint: awake alert no c/o wants to go home seen by renal also - creat stable - low dose IVF - Current Medication List Current Medications: Active Medications Acetaminophen (Tylenol -) 650 mg PO Q6H PRN PRN Reason: FEVER Allopurinol (Zyloprim -) 300 mg PO DAILY [facility] Last Admin: 01/23/19 09:34 Dose: 300 mg Amlodipine Besylate (Norvasc -) 5 mg PO DAILY [facility] Last Admin: 01/23/19 09:34 Dose: 5 mg Cephalexin HCl (Keflex -) 500 mg PO BID [facility] Last Admin: 01/23/19 09:34 Dose: 500 mg Folic Acid (Folic Acid -) 1 mg PO DAILY [facility] Last Admin: 01/23/19 09:34 Dose: 1 mg Daptomycin 350 mg/ Sodium (Chloride) 50 mls @ 100 mls/hr IVPB Q48H [facility]; Protocol Last Admin: 01/21/19 17:36 Dose: 100 mls/hr Lamivudine (Epivir Oral Solution -) 100 mg PO DAILY [facility] Last Admin: 01/23/19 09:35 Dose: 100 mg Olanzapine (Zyprexa -) 10 mg PO DAILY [facility] Last Admin: 01/23/19 09:35 Dose: 10 mg Pantoprazole Sodium (Protonix -) 20 mg PO DAILY [facility] Last Admin: 01/23/19 09:34 Dose: 20 mg Quetiapine Fumarate (Seroquel -) 25 mg PO HS [facility] Last Admin: 01/22/19 21:12 Dose: 25 mg - Objective Vital Signs: Vital Signs Temperature 98 F 01/23/19 09:13 Pulse Rate 80 01/23/19 09:13 Respiratory Rate 18 01/23/19 09:13 Blood Pressure 100/50 L 01/23/19 09:13 O2 Sat by Pulse Oximetry (%) 98 01/23/19 09:00 Constitutional: Yes: No Distress Eyes: Yes: Conjunctiva Clear HENT: Yes: Atraumatic Neck: Yes: Supple Cardiovascular: Yes: Regular Rate and Rhythm Respiratory: Yes: CTA Bilaterally Gastrointestinal: Yes: Soft. No: Tenderness Musculoskeletal: No: Joint Stiffness, Joint Swelling Extremities: No: Cold, Cool Edema: No Integumentary: No: Venous Stasis Changes Neurological: Yes: WNL, Alert, Oriented ...Motor Strength: WNL Psychiatric: Yes: WNL, Alert, Oriented. No: Agitated, Suicidal Ideation Labs: CBC, BMP 01/23/19 06:25 01/23/19 06:25 INR, PTT INR 1.11 (0.83-1.09) H 01/19/19 14:32 Fibrinogen > 500.0 mg/dL (238-498) H 01/19/19 14:32 - ....Imaging Other: Report Reviewed Assessment/Plan 73F PMH CLL, pancytopenia, HBV, HTN, CHF, and [facility] legs edema bilat and LLE rash / cellulitis. s/ p recent sepsis. Currently on a 4 week course of IV daptomycin via port. Allergy - VANCOMYCIN IV ATB ID f/u; po keflex per ID / UTI heme onc f/u - port check; cardio and renal f/u f/u labs and cultures falls pfx d/w pt and staff d/w daughter Dayana plan to DC home with [employer], does not want SNF
[2019-01-23 11:06] LABS: ANISOCYTOSIS 1+; MACROCYTOSIS 0; PLATELET ESTIMATE NORMAL; TEAR DROP CELLS 1+
--- NOTE | 2019-01-23 14:11 | PN ---
Progress Note (short form) - Note Progress Note: Renal consult for EBER Seen and examined at the bedside awake and alert no acute complaints no sob, cp, abd pain, fever or chills making urine tolerating oral diet Vital Signs Temperature 98 F 01/23/19 09:13 Pulse Rate 80 01/23/19 09:13 Respiratory Rate 18 01/23/19 09:13 Blood Pressure 100/50 L 01/23/19 09:13 O2 Sat by Pulse Oximetry (%) 98 01/23/19 09:00 Intake & Output 01/20/19 01/21/19 01/22/19 01/23/19 23:59 23:59 23:59 23:59 Intake Total 450 250 284 378 Balance 450 250 284 378 NAD awake and alert RRR CTA soft NT/ND no bladder distension no LE edema CBC, BMP 01/23/19 06:25 01/23/19 06:25 Current Medications Acetaminophen (Tylenol -) 650 mg PO Q6H PRN PRN Reason: FEVER Allopurinol (Zyloprim -) 300 mg PO DAILY [facility] Last Admin: 01/23/19 09:34 Dose: 300 mg Amlodipine Besylate (Norvasc -) 5 mg PO DAILY [facility] Last Admin: 01/23/19 09:34 Dose: 5 mg Cephalexin HCl (Keflex -) 500 mg PO BID [facility] Last Admin: 01/23/19 09:34 Dose: 500 mg Folic Acid (Folic Acid -) 1 mg PO DAILY [facility] Last Admin: 01/23/19 09:34 Dose: 1 mg Daptomycin 350 mg/ Sodium (Chloride) 50 mls @ 100 mls/hr IVPB Q48H [facility]; Protocol Last Admin: 01/21/19 17:36 Dose: 100 mls/hr Sodium Chloride (Normal Saline -) 1,000 mls @ 100 mls/hr IV ASDIR RYAN Lamivudine (Epivir Oral Solution -) 100 mg PO DAILY [facility] Last Admin: 01/23/19 09:35 Dose: 100 mg Olanzapine (Zyprexa -) 10 mg PO DAILY [facility] Last Admin: 01/23/19 09:35 Dose: 10 mg Pantoprazole Sodium (Protonix -) 20 mg PO DAILY [facility] Last Admin: 01/23/19 09:34 Dose: 20 mg Quetiapine Fumarate (Seroquel -) 25 mg PO HS [facility] Last Admin: 01/22/19 21:12 Dose: 25 mg 73 year old female with past medical history of CLL, EBER, pancytopenia , HBV, HTN, dementia and CHF who was sent in for anemia and noted to have EBER. 1. Acute kidney injury secondary to renal hypoprofusion in setting of Anemia and infection vs. AIN 2. Neutropenia 3. CLL 4. Anemia 5. Hypertension 6. Staghorn calculi with mild right hydronephrosis Renal US showed mild right hydronephroiss, this is a chronic finding and less likely to be causing renal dysfunction Check urine studies for Urine eosinophils and FeNa Continue isotonic saline for now Trend renal function and electrolytes daily Tr Duran DO
--- NOTE | 2019-01-23 16:14 | PN ---
Progress Note, Physician History of Present Illness: 73F PMH CLL, pancytopenia, HBV, HTN, CHF, and dementia/confusion BIBEMS from [facility] for low Hgb. Patient is confused and a poor/unreliable historian. She is on reverse isolation 2/2 CLL. Per [place] records, H/H 6.7 / 21. WBC 1.4. Patient was recently discharged from [facility] admission 2/2 sepsis. Currently on a 4 week course of IV daptomycin via port. She does not offer any co and said she wants to go home. Allergy - VANCOMYCIN PMH CRI HTN Hyperlipidemia Negative MIBI stress test June 2013 Nephroliyhiasis PAD 50-70 ICA stenosis 2012 - Current Medication List Current Medications: Active Medications Acetaminophen (Tylenol -) 650 mg PO Q6H PRN PRN Reason: FEVER Allopurinol (Zyloprim -) 300 mg PO DAILY [facility] Last Admin: 01/23/19 09:34 Dose: 300 mg Amlodipine Besylate (Norvasc -) 5 mg PO DAILY [facility] Last Admin: 01/23/19 09:34 Dose: 5 mg Cephalexin HCl (Keflex -) 500 mg PO BID RYAN Last Admin: 01/23/19 09:34 Dose: 500 mg Folic Acid (Folic Acid -) 1 mg PO DAILY [facility] Last Admin: 01/23/19 09:34 Dose: 1 mg Daptomycin 350 mg/ Sodium (Chloride) 50 mls @ 100 mls/hr IVPB Q48H [facility]; Protocol Last Admin: 01/21/19 17:36 Dose: 100 mls/hr Sodium Chloride (Normal Saline -) 1,000 mls @ 100 mls/hr IV ASDIR RYAN Lamivudine (Epivir Oral Solution -) 100 mg PO DAILY [facility] Last Admin: 01/23/19 09:35 Dose: 100 mg Olanzapine (Zyprexa -) 10 mg PO DAILY [facility] Last Admin: 01/23/19 09:35 Dose: 10 mg Pantoprazole Sodium (Protonix -) 20 mg PO DAILY [facility] Last Admin: 01/23/19 09:34 Dose: 20 mg Quetiapine Fumarate (Seroquel -) 25 mg PO HS [facility] Last Admin: 01/22/19 21:12 Dose: 25 mg - Objective Vital Signs: Vital Signs Temperature 98.3 F 01/23/19 14:00 Pulse Rate 72 01/23/19 14:00 Respiratory Rate 20 01/23/19 14:00 Blood Pressure 103/48 L 01/23/19 14:00 O2 Sat by Pulse Oximetry (%) 98 01/23/19 09:00 Eyes: Yes: WNL, Conjunctiva Clear, EOM Intact HENT: Yes: WNL, Atraumatic, Normocephalic Neck: Yes: WNL, Supple, Trachea Midline Cardiovascular: Yes: WNL, Regular Rate and Rhythm Respiratory: Yes: WNL, Regular, CTA Bilaterally Gastrointestinal: Yes: WNL, Normal Bowel Sounds Genitourinary: Yes: WNL Musculoskeletal: Yes: WNL Extremities: Yes: WNL, Erythema Edema: Yes Integumentary: Yes: WNL Neurological: Yes: WNL, Alert, Oriented ...Motor Strength: WNL Psychiatric: Yes: WNL Labs: CBC, BMP 01/23/19 06:25 01/23/19 06:25 INR, PTT INR 1.11 (0.83-1.09) H 01/19/19 14:32 Fibrinogen > 500.0 mg/dL (238-498) H 01/19/19 14:32 Problem List - Problems (1) EBER (acute kidney injury) Code(s): N17.9 - ACUTE KIDNEY FAILURE, UNSPECIFIED (2) Allergy to antibiotic Code(s): Z88.1 - ALLERGY STATUS TO OTHER ANTIBIOTIC AGENTS STATUS (3) Altered mental state Code(s): R41.82 - ALTERED MENTAL STATUS, UNSPECIFIED Qualifiers: Qualified Code(s): R41.82 - Altered mental status, unspecified (4) Anxiety disorder Code(s): F41.9 - ANXIETY DISORDER, UNSPECIFIED (5) Bacteremia Code(s): R78.81 - BACTEREMIA (6) CKD (chronic kidney disease) Code(s): N18.9 - CHRONIC KIDNEY DISEASE, UNSPECIFIED (7) Cellulitis Code(s): L03.90 - CELLULITIS, UNSPECIFIED (8) Cellulitis, abdominal wall Code(s): L03.311 - CELLULITIS OF ABDOMINAL WALL (9) Choledocholithiasis Code(s): K80.50 - CALCULUS OF BILE DUCT W/O CHOLANGITIS OR CHOLECYST W/O OBST (10) Cholelithiasis Code(s): K80.20 - CALCULUS OF GALLBLADDER W/O CHOLECYSTITIS W/O OBSTRUCTION (11) Chronic ITP (idiopathic thrombocytopenic purpura) Code(s): D69.3 - IMMUNE THROMBOCYTOPENIC PURPURA (12) Chronic lymphocytic leukemia Code(s): C91.90 - LYMPHOID LEUKEMIA, UNSPECIFIED NOT HAVING ACHIEVED REMISSION (13) Colonic thickening Code(s): K63.9 - DISEASE OF INTESTINE, UNSPECIFIED (14) Cough Code(s): R05 - COUGH (15) Cyst of left kidney Code(s): N28.1 - CYST OF KIDNEY, ACQUIRED (16) Diastolic CHF Code(s): I50.30 - UNSPECIFIED DIASTOLIC (CONGESTIVE) HEART FAILURE (17) Diverticulitis Code(s): K57.92 - DVTRCLI OF INTEST, PART UNSP, W/O PERF OR ABSCESS W/O BLEED (18) Epistaxis Code(s): R04.0 - EPISTAXIS (19) Fever Code(s): R50.9 - FEVER, UNSPECIFIED Qualifiers: Qualified Code(s): R50.9 - Fever, unspecified (20) GI bleed Code(s): K92.2 - GASTROINTESTINAL HEMORRHAGE, UNSPECIFIED (21) HTN (hypertension) Code(s): I10 - ESSENTIAL (PRIMARY) HYPERTENSION (22) Hemolytic anemia Code(s): D58.9 - HEREDITARY HEMOLYTIC ANEMIA, UNSPECIFIED (23) Hepatitis B Code(s): B19.10 - UNSPECIFIED VIRAL HEPATITIS B WITHOUT HEPATIC COMA (24) Hydronephrosis Code(s): N13.30 - UNSPECIFIED HYDRONEPHROSIS (25) Hyperbilirubinemia Code(s): E80.6 - OTHER DISORDERS OF BILIRUBIN METABOLISM (26) 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 Code(s): D69.59 - OTHER SECONDARY THROMBOCYTOPENIA (27) Jaundice Code(s): R17 - UNSPECIFIED JAUNDICE (28) Leukopenia Code(s): D72.819 - DECREASED WHITE BLOOD CELL COUNT, UNSPECIFIED Qualifiers: Qualified Code(s): D72.819 - Decreased white blood cell count, unspecified (29) Lung nodule, multiple Code(s): R91.8 - OTHER NONSPECIFIC ABNORMAL FINDING OF LUNG FIELD (30) Mesenteric mass Code(s): K63.9 - DISEASE OF INTESTINE, UNSPECIFIED (31) Nephrolithiasis Code(s): N20.0 - CALCULUS OF KIDNEY (32) Neutropenia Code(s): D70.9 - NEUTROPENIA, UNSPECIFIED (33) Neutropenic fever Code(s): D70.9 - NEUTROPENIA, UNSPECIFIED; R50.81 - FEVER PRESENTING WITH CONDITIONS CLASSIFIED ELSEWHERE (34) Otorrhea, right ear Code(s): H92.11 - OTORRHEA, RIGHT EAR (35) PAD (peripheral artery disease) Code(s): I73.9 - PERIPHERAL VASCULAR DISEASE, UNSPECIFIED (36) Pancytopenia Code(s): D61.818 - OTHER PANCYTOPENIA (37) Positive blood cultures Code(s): R78.81 - BACTEREMIA (38) SIRS (systemic inflammatory response syndrome) Code(s): R65.10 - SIRS OF NON-INFECTIOUS ORIGIN W/O ACUTE ORGAN DYSFUNCTION (39) Scleral icterus Code(s): R17 - UNSPECIFIED JAUNDICE (40) Staghorn calculus Code(s): N20.0 - CALCULUS OF KIDNEY (41) Thrombocytopenia Code(s): D69.6 - THROMBOCYTOPENIA, UNSPECIFIED (42) Thrombocytopenia Code(s): D69.6 - THROMBOCYTOPENIA, UNSPECIFIED (43) UTI (urinary tract infection) Code(s): N39.0 - URINARY TRACT INFECTION, SITE NOT SPECIFIED Qualifiers: Qualified Code(s): N39.0 - Urinary tract infection, site not specified; R31.9 - Hematuria, unspecified (44) Vomiting Code(s): R11.10 - VOMITING, UNSPECIFIED Qualifiers: Qualified Code(s): R11.2 - Nausea with vomiting, unspecified Assessment/Plan 73-year-old lady with a past medical history of hepatitis B, CLL (last round of rituximab July 2018), pancytopenia, G.I. bleed, CHF, dementia, CRI and hypertension who presented to the emergency department from [facility] with pancytopenia,. edema and LLext cellulitis Plan; Cont abx f/u bun/cr cardiac dyson stable
--- NOTE | 2019-01-23 16:15 | PN ---
Progress Note, Physician History of Present Illness: AWAKE, CONFUSED NON TOXIC APPEARING OFFERS NO COMPLAINTS DENIES LEG PAIN OR URINARY TRACT COMPLAINTS WBC REMAINS LOW 2K ANC 700 - Current Medication List Current Medications: Active Medications Acetaminophen (Tylenol -) 650 mg PO Q6H PRN PRN Reason: FEVER Allopurinol (Zyloprim -) 300 mg PO DAILY [facility] Last Admin: 01/23/19 09:34 Dose: 300 mg Amlodipine Besylate (Norvasc -) 5 mg PO DAILY [facility] Last Admin: 01/23/19 09:34 Dose: 5 mg Cephalexin HCl (Keflex -) 500 mg PO BID [facility] Last Admin: 01/23/19 09:34 Dose: 500 mg Folic Acid (Folic Acid -) 1 mg PO DAILY [facility] Last Admin: 01/23/19 09:34 Dose: 1 mg Daptomycin 350 mg/ Sodium (Chloride) 50 mls @ 100 mls/hr IVPB Q48H [facility]; Protocol Last Admin: 01/21/19 17:36 Dose: 100 mls/hr Sodium Chloride (Normal Saline -) 1,000 mls @ 100 mls/hr IV ASDIR RYAN Lamivudine (Epivir Oral Solution -) 100 mg PO DAILY [facility] Last Admin: 01/23/19 09:35 Dose: 100 mg Olanzapine (Zyprexa -) 10 mg PO DAILY [facility] Last Admin: 01/23/19 09:35 Dose: 10 mg Pantoprazole Sodium (Protonix -) 20 mg PO DAILY [facility] Last Admin: 01/23/19 09:34 Dose: 20 mg Quetiapine Fumarate (Seroquel -) 25 mg PO HS [facility] Last Admin: 01/22/19 21:12 Dose: 25 mg - Objective Vital Signs: Vital Signs Temperature 98.3 F 01/23/19 14:00 Pulse Rate 72 01/23/19 14:00 Respiratory Rate 20 01/23/19 14:00 Blood Pressure 103/48 L 01/23/19 14:00 O2 Sat by Pulse Oximetry (%) 98 01/23/19 09:00 Constitutional: Yes: No Distress Eyes: Yes: Conjunctiva Clear Cardiovascular: Yes: Regular Rate and Rhythm, S1, S2 Respiratory: Yes: Diminished Gastrointestinal: Yes: Normal Bowel Sounds, Soft Extremities: Yes: Other (DECREASED ERYTHEMA L PRETIBIAL AREA) Edema: Yes Labs: CBC, BMP 01/23/19 06:25 01/23/19 06:25 INR, PTT INR 1.11 (0.83-1.09) H 01/19/19 14:32 Fibrinogen > 500.0 mg/dL (238-498) H 01/19/19 14:32 Assessment/Plan MRSA BACTEREMIA DAY # ANTIBIOTIC THERAPY LEUKOPENIA/NEUTROPENIA ?UTI R/O L LE CELLULITIS CLL AZOTEMIA D/C DAPTOMYCIN AFTER TODAY KEFLEX PO FOR UTI
[2019-01-23] MEDS: DAPTOMYCIN 350 MG in SODIUM CHLORIDE 50 ML IVPB SCH (19:20)
--- NOTE | 2019-01-23 20:07 | PN ---
Progress Note (short form) - Note Progress Note: Patient seen and examined denies any specific complaints Last Vital Signs Temp Pulse Resp BP Pulse Ox 98.4 F 62 20 114/56 L 98 01/23/19 18:00 01/23/19 18:00 01/23/19 18:00 01/23/19 18:00 01/23/19 09:00 Cor: RSR, No murmurs, No gallops Lungs: Clear to P&A Abd: Soft, Normal bowel sounds, No organomegaly Ext:No significant edema Abnormal Lab Results 01/23/19 01/23/19 06:25 06:25 WBC 2.0 L RBC 3.34 L Hgb 9.2 L Hct 28.7 L RDW 19.6 H Absolute Neuts (auto) 0.7 L Neutrophils % 35.7 L Neutrophils % (Manual) 21.8 L Lymphocytes % 41.9 H Lymphocytes % (Manual) 55.4 H Monocytes % 13.9 H Monocytes % (Manual) 3 L D Eosinophils % 4.8 H Eosinophils % (Manual) 8.9 H Basophils % 3.7 H Blast Cells % (Manual) 2 H D Chloride 108 H Anion Gap 4 L BUN 37.2 H Creatinine 1.7 H ALT 12 L Total Protein 5.6 L Albumin 2.8 L Active Medications Generic Name Dose Route Start Last Admin Trade Name Ashokq PRN Reason Stop Dose Admin Acetaminophen 650 mg 01/17/19 00:35 Tylenol - PO Q6H PRN FEVER Allopurinol 300 mg 01/17/19 10:00 01/23/19 09:34 Zyloprim - PO 300 mg DAILY RYAN Administration Amlodipine Besylate 5 mg 01/17/19 10:00 01/23/19 09:34 Norvasc - PO 5 mg DAILY RYAN Administration Cephalexin HCl 500 mg 01/21/19 22:00 01/23/19 09:34 Keflex - PO 500 mg BID RYAN Administration Folic Acid 1 mg 01/17/19 10:00 01/23/19 09:34 Folic Acid - PO 1 mg DAILY RYAN Administration Daptomycin 350 mg/ Sodium 50 mls @ 100 mls/hr 01/17/19 17:30 01/23/19 19:20 Chloride IVPB 100 mls/hr Q48H RYAN Administration Protocol Sodium Chloride 1,000 mls @ 100 mls/hr 01/23/19 13:00 Normal Saline - IV ASDIR RYAN Lamivudine 100 mg 01/17/19 10:00 01/23/19 09:35 Epivir Oral Solution - PO 100 mg DAILY RYAN Administration Olanzapine 10 mg 01/17/19 10:00 01/23/19 09:35 Zyprexa - PO 10 mg DAILY RYAN Administration Pantoprazole Sodium 20 mg 01/17/19 10:00 01/23/19 09:34 Protonix - PO 20 mg DAILY RYAN Administration Quetiapine Fumarate 25 mg 01/17/19 22:00 01/22/19 21:12 Seroquel - PO 25 mg HS RYAN Administration a/p 73-year-old lady with a past medical history of hepatitis B, CLL (last round of rituximab July 2018), pancytopenia, G.I. bleed, CHF, dementia and hypertension who presented to the emergency department from [facility] because she was found to have a low Hb. In the emergency department, she was found to have a Hb 6.8 and a leukopenia to 1.4. She was transfused 2u PRBC ? anemia of ckd + ? marrow infiltration from cll kimberly neg. completing daptomycin for cellulitis f/u id consult continue supportive care
[2019-01-23] MEDS: SODIUM CHLORIDE 1,000 ML IV SCH (20:32)
[2019-01-23] MEDS ORDERED: amLODIPine BESYLATE 5 MG TABLET (FP) PO SCH (21:12)
[2019-01-23] MEDS: QUEtiapine FUMARATE 25 MG TABLET (FP) PO SCH (21:12)
[2019-01-23 21:46] LABS: EPI CELLS 0.3 /HPF (0-5/HPF); HYALINE CASTS 6 /lpf (0-8); PH,URINE 6.5 (5.0-8.0); URINE APPEARANCE CLOUDY; URINE BACTERIA >9000 /hpf (NEGATIVE); URINE BILIRUBIN NEGATIVE (NEGATIVE); URINE COLOR YELLOW; URINE GLUCOSE (UA) TRACE (NEGATIVE); URINE KETONE NEGATIVE (NEGATIVE); URINE LEUK ESTERASE 3+ (NEGATIVE); URINE NITRITE POSITIVE (NEGATIVE); URINE PROTEIN 1+ (NEGATIVE); URINE RBC 7 /hpf (0-4); URINE UROBILINOGEN 0.2 mg/dL (0.2-1.0); URINE WBC 63 /hpf (0-5)
--- NOTE | 2019-01-24 07:01 | DS ---
Physical Examination Vital Signs: Vital Signs Temperature 98.9 F 01/23/19 22:00 Pulse Rate 72 01/23/19 22:00 Respiratory Rate 20 01/23/19 22:00 Blood Pressure 101/62 01/23/19 22:00 O2 Sat by Pulse Oximetry (%) 98 01/23/19 21:00 Findings/Remarks: in bed feels well no c/o VSS wants to go home WBC 1.6 to get neupogen per heme then DC home d/w pt and daughter Dayana both of them want pt to go home not SNF - will ask for [employer] and VNS and home PT f/u and meds d/w daughter Constitutional: Yes: No Distress, Calm Eyes: Yes: Conjunctiva Clear HENT: Yes: Atraumatic Neck: Yes: Supple Cardiovascular: Yes: Regular Rate and Rhythm Respiratory: Yes: CTA Bilaterally Gastrointestinal: Yes: Soft Renal/: No: Hematuria Musculoskeletal: No: Joint Stiffness, Joint Swelling Extremities: No: Cold, Cool, Cyanosis Edema: No Integumentary: Yes: Rash (LLE much better) Neurological: Yes: WNL, Alert, Oriented ...Motor Strength: WNL Psychiatric: Yes: WNL, Alert, Oriented. No: Agitated, Suicidal Ideation Labs: CBC, BMP 01/23/19 06:25 01/23/19 06:25 Discharge Summary Problems reviewed: Yes Reason For Visit: ANEMIA Current Active Problems Low hemoglobin (Acute) Procedures: Principal: 73 YOF admitted with low WBC anemia and sepsis Other Procedures: seen by ID and heme onc; Hospital Course: completed IV ATB daptomycin per ID and started po keflex for UTI; received PRBC and neupogen per heme onc; Plan of Treatment: ATB per ID; neupogen and PRBC per heme onc; f/u PCP heme onc in 1-2 weeks; further chemotx per ONC. Condition: Guarded - Instructions Diet, Activity, Other Instructions: f/u PCP, heme onc in 1-2 weeks; RTER if worse or recurrent c/o; check labs in 1-2 weeks; po keflex for 5 days good po hydration. Referrals: Sabi Jordan [Staff Physician] - Stu Garcia MD [Staff Physician] - - Home Medications Comprehensive Discharge Medication List: Ambulatory Orders Allopurinol [Zyloprim -] 300 mg PO DAILY #90 tablet 04/13/18 Olanzapine [Zyprexa -] 10 mg PO DAILY 10/08/18 Pantoprazole Sodium [Protonix -] 20 mg PO DAILY 10/08/18 Folic Acid - 1 mg PO DAILY tablet 10/19/18 Lamivudine [Lamivudine Hbv] 100 mg PO DAILY 11/01/18 Quetiapine Fumarate [Seroquel -] 25 mg PO HS 12/21/18 Acetaminophen [Tylenol .Regular Strength -] 650 mg PO Q6H PRN tablet 01/04/19 Amlodipine Besylate [Norvasc -] 2.5 mg PO DAILY #30 tablet 01/23/19 Amlodipine Besylate [Norvasc -] 2.5 mg PO DAILY #90 tablet 01/23/19 Cephalexin Monohydrate [Keflex -] 500 mg PO BID 5 Days #10 capsule 01/23/19
[2019-01-24 07:52] LABS: BASO % 1.6 % (0-2.0); EOS % 3.8 % (0-4.5); HEMATOCRIT 27.1 % (32.4-45.2); LYMPH % 56.9 % (8-40); MCH 28.3 pg (25.7-33.7); MCHC 33.4 g/dl (32.0-36.0); MEAN CELL VOLUME 84.6 fl (80-96); MEAN PLT VOLUME 7.9 fl (7.5-11.1); MONO % 5.8 % (3.8-10.2); NEUT % 31.9 % (42.8-82.8); PLATELET COUNT 137 K/MM3 (134-434); RDW 19.6 % (11.6-15.6)
[2019-01-24 08:06] LABS: BLOOD UREA NITROGEN 34.4 mg/dL (7-18); CALCIUM 9.1 mg/dL (8.5-10.1); CREATININE 1.6 mg/dL (0.55-1.3); MAGNESIUM 2.5 mg/dL (1.8-2.4); PHOSPHOROUS 3.8 mg/dL (2.5-4.9); POTASSIUM 4.2 mmol/L (3.5-5.1)
[2019-01-24 08:30] LABS: WHITE BLOOD COUNT 1.6 K/mm3 (4.0-10.0)
[2019-01-24 11:10] LABS: ANISOCYTOSIS 2+; MACROCYTOSIS 0; PLATELET ESTIMATE DECREASED; TEAR DROP CELLS 1+
[2019-01-24] MEDS ORDERED: PT OWN MED DRAWER 7, Y5N ONE (11:26)
[2019-01-24] MEDS: FOLIC ACID 1 MG TABLET (FP) PO SCH (11:30)
[2019-01-24] MEDS: PANTOPRAZOLE 20 MG TABLET (FP) PO SCH (11:31)
[2019-01-24] MEDS: OLANZapine 10 MG TABLET PO SCH (11:31)
[2019-01-24] MEDS: lamiVUDine 10 MG/1 ML BULK BOTTLE PO SCH (11:31)
[2019-01-24] MEDS: CEPHALEXIN MONOHYDRATE 500 MG CAPSULE (UD) PO SCH (11:31)
[2019-01-24] MEDS: ALLOPURINOL 300 MG TABLET (FP) PO SCH (11:31)
[2019-01-24] MEDS ORDERED: TBO-FILGRASTIM 300 MCG/0.5 ML DISP.SYRINGE SQ ONE (12:15)
--- NOTE | 2019-01-24 12:21 | PN ---
Progress Note (short form) - Note Progress Note: Hematology and oncology follow up Subjective: Patient seen and examined at bedside. no new complaints. No events overnight. for d/c today Objective: Vital Signs Temperature 98 F 01/24/19 10:00 Pulse Rate 86 01/24/19 10:00 Respiratory Rate 18 01/24/19 10:00 Blood Pressure 115/86 01/24/19 10:00 O2 Sat by Pulse Oximetry (%) 98 01/24/19 08:29 Physical Exam: Gen: patient well appearing, in NAD HEENT: clear. Lung: clear to auscultation b/l down to the bases Heart: rrr, s1, s2, heard no murmurs, gallops, rubs. Abdomen: soft, nontender, nondistended, bowel sounds heard Active Medications Acetaminophen (Tylenol -) 650 mg PO Q6H PRN PRN Reason: FEVER Allopurinol (Zyloprim -) 300 mg PO DAILY [facility] Last Admin: 01/24/19 11:31 Dose: 300 mg Amlodipine Besylate (Norvasc -) 5 mg PO DAILY [facility] Last Admin: 01/24/19 11:31 Dose: 5 mg Cephalexin HCl (Keflex -) 500 mg PO BID [facility] Last Admin: 01/24/19 11:31 Dose: 500 mg Folic Acid (Folic Acid -) 1 mg PO DAILY [facility] Last Admin: 01/24/19 11:30 Dose: 1 mg Sodium Chloride (Normal Saline -) 1,000 mls @ 100 mls/hr IV ASDIR [facility] Last Admin: 01/23/19 20:32 Dose: 100 mls/hr Lamivudine (Epivir Oral Solution -) 100 mg PO DAILY [facility] Last Admin: 01/24/19 11:31 Dose: 100 mg Olanzapine (Zyprexa -) 10 mg PO DAILY [facility] Last Admin: 01/24/19 11:31 Dose: 10 mg Pantoprazole Sodium (Protonix -) 20 mg PO DAILY [facility] Last Admin: 01/24/19 11:31 Dose: 20 mg Quetiapine Fumarate (Seroquel -) 25 mg PO HS [facility] Last Admin: 01/23/19 21:12 Dose: 25 mg Home Medications Medication Instructions Recorded Allopurinol [Zyloprim -] 300 mg PO DAILY #90 tablet 04/13/18 Amlodipine Besylate [Norvasc -] 5 mg PO DAILY #90 tablet 08/26/18 Olanzapine [Zyprexa -] 10 mg PO DAILY 10/08/18 Pantoprazole Sodium [Protonix -] 20 mg PO DAILY 10/08/18 Folic Acid - 1 mg PO DAILY tablet 10/19/18 Lamivudine [Lamivudine Hbv] 100 mg PO DAILY 11/01/18 Quetiapine Fumarate [Seroquel -] 25 mg PO HS 12/21/18 Acetaminophen [Tylenol .Regular 650 mg PO Q6H PRN tablet 01/04/19 Strength -] Daptomycin [Cubicin (Restricted 350 mg IVPB DAILY #0 vial 01/04/19 To Id) -] CBC, BMP 01/24/19 06:46 01/24/19 06:46 Assessment and plan: 73-year-old lady with a past medical history of hepatitis B, CLL (last round of rituximab July 2018), pancytopenia, G.I. bleed, CHF, dementia and hypertension who presented to the emergency department from [facility] because she was found to have a low Hb. In the emergency department, she was found to have a Hb 6.8 and a leukopenia to 1.4. She was transfused 2u PRBC overnight and her repeat Hb was 10.5. #Pancytopenia likely 2/2 bone marrow supression in the setting of CLL vs other autoimmune process -for d/c home today -Will order one dose of granix today -will f/u flow cytometry/FISH/Cytogenetics #LLE erythema; possible cellulitis -monitor closely -afebrile, not warm -unchanged today -For DC to SNF today; Oncology services will be on hold while patient attends short term rehab.
[2019-01-24 12:44] VITALS: BMI 22.6
[2019-01-24] MEDS: SODIUM CHLORIDE 1,000 ML IV SCH (14:44)
--- NOTE | 2019-01-24 15:37 | PN ---
Progress Note (short form) - Note Progress Note: Renal consult for EBER Seen and examined at the bedside awake and alert no acute complaints Vital Signs Temperature 98.0 F 01/24/19 15:08 Pulse Rate 67 01/24/19 15:08 Respiratory Rate 18 01/24/19 15:08 Blood Pressure 126/65 01/24/19 15:08 O2 Sat by Pulse Oximetry (%) 98 01/24/19 08:29 Intake & Output 01/21/19 01/22/19 01/23/19 01/24/19 23:59 23:59 23:59 23:59 Intake Total 250 284 678 100 Balance 250 284 678 100 Weight 58.06 kg NAD awake and alert RRR CTA soft NT/ND no bladder distension no LE edema CBC, BMP 01/24/19 06:46 01/24/19 06:46 Current Medications Acetaminophen (Tylenol -) 650 mg PO Q6H PRN PRN Reason: FEVER Allopurinol (Zyloprim -) 300 mg PO DAILY [facility] Last Admin: 01/24/19 11:31 Dose: 300 mg Amlodipine Besylate (Norvasc -) 5 mg PO DAILY [facility] Last Admin: 01/24/19 11:31 Dose: 5 mg Cephalexin HCl (Keflex -) 500 mg PO BID [facility] Last Admin: 01/24/19 11:31 Dose: 500 mg Folic Acid (Folic Acid -) 1 mg PO DAILY [facility] Last Admin: 01/24/19 11:30 Dose: 1 mg Sodium Chloride (Normal Saline -) 1,000 mls @ 100 mls/hr IV ASDIR [facility] Last Admin: 01/24/19 14:44 Dose: Not Given Lamivudine (Epivir Oral Solution -) 100 mg PO DAILY [facility] Last Admin: 01/24/19 11:31 Dose: 100 mg Olanzapine (Zyprexa -) 10 mg PO DAILY [facility] Last Admin: 01/24/19 11:31 Dose: 10 mg Pantoprazole Sodium (Protonix -) 20 mg PO DAILY [facility] Last Admin: 01/24/19 11:31 Dose: 20 mg Quetiapine Fumarate (Seroquel -) 25 mg PO HS [facility] Last Admin: 01/23/19 21:12 Dose: 25 mg 73 year old female with past medical history of CLL, EBER, pancytopenia , HBV, HTN, dementia and CHF who was sent in for anemia and noted to have EBER. 1. Acute kidney injury secondary to renal hypoprofusion in setting of Anemia and infection vs. AIN 2. Neutropenia 3. CLL 4. Anemia 5. Hypertension 6. Staghorn calculi with mild right hydronephrosis Renal US showed mild right hydronephroiss, this is a chronic finding and less likely to be causing renal dysfunction Renal function is stable at this time FeNa is 1.8%, indeterminate volume status is ok and pt is tolerating oral diet can be discharged but will need to follow up with PMD and repeat labs in 3-4 days. d/c IVF now Tr Duran DO
[2019-01-24 19:43] VITALS: BP 125/55; PULSE 76; TEMP 98.1
--- NOTE | 2019-01-25 10:45 | PATH ---
Surgical Pathology Report Patient Name: AYLEEN GILMORE Med. Rec. #: [id number] /Age/Gender: 1945 (Age: 73) / F Account: [id number] Location: [facility] MED/SURG Taken: 01/20/2019 Received: 01/20/2019 Reported: 01/25/2019 Physicians: Opal Dalal M.D. Specimen(s) Received PERIPHERAL BLOOD Clinical History CLL with pancytopenia requiring transfusion Final Diagnosis COMPREHENSIVE FLOW PANEL performed and interpreted at [place], [place] ([id number]) shows the following: INTERPRETATION: Granuloycytopenia with 2.5% blasts (see comment). COMMENT: The differential diagnosis includes a reactive condition or a myeloid neoplasm. There is no definitive evidence of CLL. Please correlate with morphologic, clinical, and cytogenetic/molecular findings for further classification. See [facility] report ([id number]) for additional details. MYELODYSPLASIA FISH PANEL performed and interpreted at [place], [place] ([id number]) shows the following: INTERPRETATION: No evidence of deletion 5q or monosomy 5 is present. No evidence of deletion 7q or monosomy 7 is present. No evidence of trisomy 8 (+8) is present. No evidence of deletion 13q14.2 is present. No evidence of rearrangement of 11q23. No evidence of a deletion of the p53 (17p13) locus. No evidence of deletion 20q12 is present Comments: Prior FISH study ([id number]) performed in 2018 was negative for the MDS FISH Panel. See [facility] report ([id number]) for additional details. Electronically Signed Jose Roberto Laguna M.D. Addendum Reported: 01/30/2019 Addendum Diagnosis CYTOGENETIC KARYOTYPE ANALYSIS performed and interpreted at [facility] shows the following: RESULTS: 46, XX [16] INTERPRETATION: Normal Karyotype This specimen produced only sixteen analyzable metaphase cells. Although chromosome morphology and band resolution are somewhat sub-optimal, no consistent numerical or structural chromosome abnormalities were observed. A repeat sample, when clinically appropriate, may produce additional cytogenetic information and is recommended. This normal result does not rule out a neoplasm. Subtle rearrangements or the presence of an aberrant clone in a low proportion of cells cannot be ruled out. Correlation with other clinical and hematologic data is suggested. Analysis was performed on cells from an unstimulated tissue culture and a tissue culture that was stimulated with lymphoid mitogens. See [facility] report for additional details ([id number]). Jsoe Roberto Laguna M.D. Gross Description Received are 4 green top tubes of blood which are sent to [facility]. 01/20/2019 saudi01/20/2019
== END 2019-01-24 20:57 | DRG 841 ==
LOC: JER 22:04 → JERBED 01-17 00:07 → J8W 01-17 17:06 → J7W 01-18 00:40
PROVIDERS: ADMIT Internal Medicine; ATTEND Internal Medicine
PROC: 30233N1 Transfusion of Nonautologous Red Blood Cells into Peripheral Vein, Percutaneous Approach (ICD-10-PCS; principal; 2019-01-17)
DX: C91.90 Lymphoid leukemia, unspecified not having achieved remission (principal); R78.81 Bacteremia; I50.30 Unspecified diastolic (congestive) heart failure; D61.818 Other pancytopenia; N39.0 Urinary tract infection, site not specified; N17.9 Acute kidney failure, unspecified; N13.2 Hydronephrosis with renal and ureteral calculous obstruction; L03.116 Cellulitis of left lower limb; J90 Pleural effusion, not elsewhere classified; F03.90 Unspecified dementia, unspecified severity, without behavioral disturbance, psychotic disturbance, mood disturbance, and anxiety; D63.1 Anemia in chronic kidney disease; D72.819 Decreased white blood cell count, unspecified
CPT/HCPCS: 36415; 36430; 36511; 71045-TC-FY; 76775-TC; 80048; 80053; 81003; 82248; 82272; 82436; 82550; 82565; 83010; 83615; 83735; 84100; 84133; 84300; 84484; 85025; 85027; 85044; 85384; 85610; 85730; 86850; 86880; 86900; 86901; 86922; 87040; 87086; 87186; 88300-TC; 93005; 93010; 93970-TC; 99285-25; J0878; J1447; J7030; P9038; P9058

== ENCOUNTER 2019-02-13 11:01 | Inpatient (IN) | payer OTHER, MEDICARE ==
--- NOTE | 2019-02-13 12:04 | PDOC ---
History of Present Illness - General Chief Complaint: Blood Transfusion Stated Complaint: Blood Transfusion Time Seen by Provider: 02/13/19 11:36 - History of Present Illness Initial Comments: Tracy Rosas is a 73yo woman with a PMH of CLL w/ pancytopenia, CHF, HTN, dementia, hepB, GI bleed who presents from [facility] with report of worsening anemia. Ms Rosas is unable to provide any information due to her dementia ( states she was at her job when the ambulance came to get her for no reason). Per paperwork from [facility], Ms Rosas had recent labs with hgb 6.9 on 02/10/19. Ms Rosas currently denies any complaints. Past History - Past Medical History Allergies/Adverse Reactions: Allergies Allergy/AdvReac Type Severity Reaction Status Date / Time vancomycin AdvReac Verified 12/26/18 07:37 Home Medications: Ambulatory Orders Allopurinol [Zyloprim -] 300 mg PO DAILY #90 tablet 04/13/18 Olanzapine [Zyprexa -] 10 mg PO DAILY 10/08/18 Pantoprazole Sodium [Protonix -] 20 mg PO DAILY 10/08/18 Folic Acid - 1 mg PO DAILY tablet 10/19/18 Lamivudine [Lamivudine Hbv] 100 mg PO DAILY 11/01/18 Quetiapine Fumarate [Seroquel -] 25 mg PO HS 12/21/18 Acetaminophen [Tylenol .Regular Strength -] 650 mg PO Q6H PRN tablet 01/04/19 Amlodipine Besylate [Norvasc -] 2.5 mg PO DAILY #90 tablet 01/23/19 Ascorbate Calcium [Vitamin C] 500 mg PO DAILY 02/13/19 Ciclopirox/Urea/Camph/Men/Euc [Ciclopirox 8% Treatment Kit] 34.6 ml TP DAILY Ferrous Sulfate 325 mg PO DAILY 02/13/19 Anemia: Yes (pancytopenia) Asthma: No Cancer: (Chronic Lymphocytic leukemia) Cardiac Disorders: (CHF) CVA: No COPD: No CHF: Yes Dementia: No Diabetes: No GI Disorders: Yes (GERD, gallstones, diverticulosis, GIB) Disorders: Yes (UTIs, VRE bacteremia, large kidney stones) HTN: Yes Hypercholesterolemia: No Liver Disease: No Psychiatric Problems: Yes (possibe dementia) Seizures: No Thyroid Disease: No - Surgical History Abdominal Surgery: No Appendectomy: No Cardiac Surgery: No Cholecystectomy: No Lung Surgery: No Neurologic Surgery: No Orthopedic Surgery: No - Immunization History Immunization Up to Date: Yes - Psycho Social/Smoking Cessation Hx Smoking Status: No Smoking History: Never smoked Have you smoked in the past 12 months: No Number of Cigarettes Smoked Daily: 0 Hx Alcohol Use: No Drug/Substance Use Hx: No Substance Use Type: None Hx Substance Use Treatment: No Review of Systems - Review of Systems Comments:: General: No fevers, no chills, no weight or appetite change, no malaise HEENT: No changes in vision, no changes in hearing, no congestion, no sore throat CV: No chest pain, no palpitations, no LE edema Pulm: No SOB, no cough, no wheezing GI: No nausea or vomiting, no change in bowel habits, no melena : No frequency, no urgency, no dysuria Musc: No back pain, no joint swelling, no recent injury Skin: No rash, no lesions, no erythema Endo: No excessive thirst, no heat/cold intolerance Heme: No unusual bruising or bleeding, no swollen glands Neuro: No syncope, no numbness/tingling, no focal weakness Vasc: No claudication Psych: No recent change in mood, no SI or HI *Physical Exam - Vital Signs Last Vital Signs Temp Pulse Resp BP Pulse Ox 98.4 F 87 19 140/66 100 02/13/19 11:06 02/13/19 11:06 02/13/19 11:06 02/13/19 11:06 02/13/19 11:06 - Physical Exam Comments: General: Comfortable, no acute distress HEENT: Atraumatic, PERRL, EOMI, voice normal, normal neck ROM, pale mucous membranes Cards: RRR, no murmur appreciated Pulm: Comfortable on room air, clear to auscultation bilaterally Abd: Soft, nontender, nondistended Ext: Atraumatic. No LE edema. ROM intact. WWP Skin: Pale, no rashes or lesions Neuro: A&Ox3, CN grossly intact, normal speech, motor/sensory grossly intact and symmetric Psych: Mood appropriate to situation ED Treatment Course - LABORATORY CBC & Chemistry Diagram: 02/13/19 12:00 02/13/19 11:43 Medical Decision Making - Medical Decision Making 02/13/19 12:04 Tracy Rosas is a 73yo woman with a PMH of CLL w/ pancytopenia, CHF, HTN, dementia, hepB, GI bleed who presents from [facility] with report of worsening anemia to Hgb 6.9. - Most likely worsening anemia secondary to leukemia. No known source of bleeding - Rectal exam deferred due to leukopenia - CBC, CMP, coags, T&S, EKG, CXR. FOBT to be completed when pt has a bowel movement 02/13/19 13:02 - CBC completed, hgb 6.7 - WBC at baseline of 1.6 - Will need transfusion. Attempt made to contact pt's healthcare proxy, Daughter Dayana Rosas ([phone]) for consent, but no answer - Call placed to Dr Jordan for admission 02/13/19 13:15 - Spoke w/ Dr Jordan. Will admit for transfusion - Daughter Dayana called again. Consent obtained over the phone by vt, Dr Padgett, and nurse Cruz Discussed with Dr Lorin De La O PGY2 Discharge - Discharge Information Problems reviewed: Yes Clinical Impression/Diagnosis: Pancytopenia Condition: Stable - Admission Yes - Follow up/Referral - Patient Discharge Instructions - Post Discharge Activity
--- NOTE | 2019-02-13 12:43 | PDOC ---
Attending Attestation - Resident Resident Name: Maira De La O - ED Attending Attestation I have performed the following: I have examined & evaluated the patient, The case was reviewed & discussed with the resident, I agree w/resident's findings & plan, Exceptions are as noted - HPI HPI: 02/13/19 12:41 73yo female with hx of cll, hep b, dementia sent from [facility] for eval of low h/h on labs. Outpt labs show hgb of 6.9. Pt is pleasantly demented and cannot provide a complete hx. Pt denies vomiting blood or blood in the diaper. Pt denies cp/sob/abd pain. Pt pale on exam - Physicial Exam PE: 02/13/19 12:42 Gen: aaox1-person, nad heent: pale conjunctiva neck: supple heart: +s1s2 reg lungs: cta b/l abd: soft, nt/nd +bs ext: trace edema b/l LE, radial/pedal pulses intact - Medical Decision Making 02/13/19 12:43 a/p: 73yo female with dementia with low h/h -pt follows with Dr. Jordan and Dr. Garcia -pt with cll, hx of gi bleed, hep b -will repeat labs, stool for h/h, type and screen -daughter is PO -will monitor and reassess -pt will most likely need a blood transfusion and admission 02/13/19 12:59 hgb 6.6 02/13/19 13:10 cxr clear, port a cath in place 02/13/19 13:20 resident discussed the case with Dr. Jordan who accepts pt to service discussed with Dayana Rosas [phone] (pts daughter) POA who agrees with blood transfusion Heart Score/ECG Review - ECG Intrepretation Comment:: 02/13/19 12:43 sinus at 80, L axis, q waves septally and inferior which are age indeterminate, no acute st/t wave findings
[2019-02-13 12:52] LABS: BASO % 0.2 % (0-2.0); EOS % 4.5 % (0-4.5); HEMATOCRIT 19.7 % (32.4-45.2); LYMPH % 57.2 % (8-40); MCH 28.5 pg (25.7-33.7); MCHC 34.1 g/dl (32.0-36.0); MEAN CELL VOLUME 83.6 fl (80-96); NEUT % 33.1 % (42.8-82.8); PLATELET COUNT 180 K/MM3 (134-434); RBC 2.36 M/mm3 (3.60-5.2); RDW 19.2 % (11.6-15.6)
[2019-02-13 12:57] LABS: HEMOGLOBIN 6.7 GM/dL (10.7-15.3); WHITE BLOOD COUNT 1.6 K/mm3 (4.0-10.0)
[2019-02-13 13:01] LABS: INR 1.14 (0.83-1.09); PROTHROMBIN TIME (PATIENT) 13.5 SEC (9.7-13.0)
[2019-02-13 13:04] LABS: ACTIVATED PTT 28.2 SECONDS (25.2-36.5)
[2019-02-13 13:33] LABS: ANISOCYTOSIS 2+; PLATELET ESTIMATE NORMAL
[2019-02-13 13:37] LABS: ALBUMIN 3.1 g/dl (3.4-5.0); BILIRUBIN,TOTAL 0.7 mg/dL (0.2-1); BLOOD UREA NITROGEN 27.6 mg/dL (7-18); CALCIUM 9.3 mg/dL (8.5-10.1); CREATININE 1.5 mg/dL (0.55-1.3); POTASSIUM 4.2 mmol/L (3.5-5.1); TOT PROT 6.1 g/dl (6.4-8.2)
--- NOTE | 2019-02-13 15:28 | HP ---
Admitting History and Physical - Primary Care Physician PCP: Sabi Jordan S - Admission Chief Complaint: anemia, low WBC History of Present Illness: Tracy Rosas is a 73yo woman with a PMH of CLL w/ pancytopenia, CHF, HTN, dementia, hepB, GI bleed who presents from [facility] with report of worsening anemia. Ms Rosas is unable to provide any information due to her dementia. Per paperwork from [facility], Ms Rosas had recent labs with hgb 6.9 on 02/10/19. Ms Rosas currently denies any complaints. History Source: Patient, Medical Record, Transfer Record Limitations to Obtaining History: Clinical Condition - Past Medical History [employer]: Yes: Dementia Cardiovascular: Yes: HTN Gastrointestinal: Yes: Diverticulosis (on CT scan), GI Bleed (02/13 post- sphincterotomy bleed) Hepatobiliary: Yes: Cholelithiasis, Choledocholithiasis (with cholangitis 02/13 requring ERCP & sphincterotomy complicated by a post-sphincterotomy bleed ) Renal/: Yes: Renal Calculi Heme/Onc: Yes: Anemia, Cancer (CLL- had bone marrow at [facility] recently), Other ( thalassemia) Psych: Yes: Anxiety Musculoskeletal: Yes: Chronic low back pain - Past Surgical History Past Surgical History: Yes: Tonsillectomy, Upper Endoscopy - Smoking History Smoking history: Never smoked Have you smoked in the past 12 months: No Aproximately how many cigarettes per day: 0 - Alcohol/Substance Use Hx Alcohol Use: No History of Substance Use: reports: None - Social History Usual Living Arrangement: Yes: Shelter Do you think of yourself as: Straight/Heterosexual ADL: Independent 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 of Recent Travel: No Home Medications - Allergies Allergies/Adverse Reactions: Allergies Allergy/AdvReac Type Severity Reaction Status Date / Time vancomycin AdvReac Verified 12/26/18 07:37 - Home Medications Home Medications: Ambulatory Orders Allopurinol [Zyloprim -] 300 mg PO DAILY #90 tablet 04/13/18 Olanzapine [Zyprexa -] 10 mg PO DAILY 10/08/18 Pantoprazole Sodium [Protonix -] 20 mg PO DAILY 10/08/18 Folic Acid - 1 mg PO DAILY tablet 10/19/18 Lamivudine [Lamivudine Hbv] 100 mg PO DAILY 11/01/18 Quetiapine Fumarate [Seroquel -] 25 mg PO HS 12/21/18 Acetaminophen [Tylenol .Regular Strength -] 650 mg PO Q6H PRN tablet 01/04/19 Amlodipine Besylate [Norvasc -] 2.5 mg PO DAILY #90 tablet 01/23/19 Ascorbate Calcium [Vitamin C] 500 mg PO DAILY 02/13/19 Ciclopirox/Urea/Camph/Men/Euc [Ciclopirox 8% Treatment Kit] 34.6 ml TP DAILY Ferrous Sulfate 325 mg PO DAILY 02/13/19 Family Medical History Family History: Unremarkable Review of Systems - Review of Systems Constitutional: denies: Chills, Fever Eyes: denies: Blurred Vision, Double Vision HENT: denies: Epistaxis Neck: denies: Stiffness, Tenderness Cardiovascular: denies: Chest Pain, Shortness of Breath Respiratory: denies: Cough, SOB Gastrointestinal: denies: Abdominal Pain, Diarrhea, Rectal Bleeding, Vomiting Genitourinary: denies: Burning, Dysuria, Flank Pain Musculoskeletal: denies: Back Pain Integumentary: denies: Eczema, Erythema, Wound Neurological: denies: Change in LOC, Change in Speech, Confusion, Dizziness, Headache, Seizure, Syncope Hematology/Lymphatic: denies: Easily Bruised, Excessive Bleeding Psychiatric: reports: Anxiety. denies: Altered Sleep Pattern, Depression, Suicidal Physical Examination Vital Signs: Vital Signs Temperature 98.5 F 02/13/19 14:45 Pulse Rate 88 02/13/19 14:45 Respiratory Rate 19 02/13/19 14:45 Blood Pressure 110/59 L 02/13/19 14:45 O2 Sat by Pulse Oximetry (%) 99 02/13/19 14:45 Constitutional: Yes: No Distress, Calm Eyes: Yes: Conjunctiva Clear HENT: Yes: Atraumatic Neck: Yes: Supple Cardiovascular: Yes: Regular Rate and Rhythm Respiratory: Yes: CTA Bilaterally Gastrointestinal: Yes: Soft. No: Tenderness Renal/: No: Hematuria Musculoskeletal: No: Joint Stiffness, Joint Swelling Extremities: Yes: Erythema (LLE pretibial chronic). No: Cold, Cool, Cyanosis Edema: No Integumentary: Yes: Venous Stasis Changes (LLE). No: Skin Tear Neurological: Yes: WNL, Alert, Oriented ...Motor Strength: WNL Psychiatric: Yes: WNL, Alert, Oriented. No: Agitated, Suicidal Ideation Labs: CBC, BMP 02/13/19 12:00 02/13/19 11:43 Imaging - Results Chest X-ray: Report Reviewed Other: Report Reviewed Assessment/Plan Tracy Rosas is a 73yo woman with a PMH of CLL w/ pancytopenia, CHF, HTN, dementia, hepB, GI bleed who presents from [facility] with report of worsening anemia. Per paperwork from [facility], Ms Rosas had recent labs with hgb 6.9 on . Ms Rosas currently denies any complaints. admit inpt; transfuse PRBC; will ask heme onc input; consider sq neupogen (per heme) f/u labs; falls PFX prognosis guarded PT CM eval; d/w pt and staff, will call pt's daughter Dayana
--- NOTE | 2019-02-13 22:12 | CONSULT ---
Consult - text type - Consultation Consultation Note: 73yo woman with a PMH of CLL w/ pancytopenia, CHF, HTN, dementia, hepB, GI bleed who presents from [facility] with report of worsening anemia. Ms Rosas is unable to provide any information due to her dementia. Per paperwork from [facility] , Ms Rosas had recent labs with hgb 6.9 on 02/10/19. Ms Rosas currently denies any complaints. 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 Cardiovascular: Yes: HTN Gastrointestinal: Yes: Diverticulosis (on CT scan), GI Bleed (02/13 post- sphincterotomy bleed) Hepatobiliary: Yes: Cholelithiasis, Choledocholithiasis (with cholangitis 02/13 requring ERCP & sphincterotomy complicated by a post-sphincterotomy bleed ) Renal/: Yes: Renal Calculi Heme/Onc: Yes: Anemia, Cancer (CLL- had bone marrow at [facility] recently), Other ( thalassemia) Psych: Yes: Anxiety Musculoskeletal: Yes: Chronic low back pain - Past Surgical History Past Surgical History: Yes: Tonsillectomy, Upper Endoscopy - Smoking History Smoking history: Never smoked Have you smoked in the past 12 months: No Aproximately how many cigarettes per day: 0 Home Medications - Allergies Allergies/Adverse Reactions: Allergies Allergy/AdvReac Type Severity Reaction Status Date / Time vancomycin AdvReac Verified 12/26/18 07:37 - Home Medications Home Medications: Ambulatory Orders Allopurinol [Zyloprim -] 300 mg PO DAILY #90 tablet 04/13/18 Olanzapine [Zyprexa -] 10 mg PO DAILY 10/08/18 Pantoprazole Sodium [Protonix -] 20 mg PO DAILY 10/08/18 Folic Acid - 1 mg PO DAILY tablet 10/19/18 Lamivudine [Lamivudine Hbv] 100 mg PO DAILY 11/01/18 Quetiapine Fumarate [Seroquel -] 25 mg PO HS 12/21/18 Acetaminophen [Tylenol .Regular Strength -] 650 mg PO Q6H PRN tablet 01/04/19 Amlodipine Besylate [Norvasc -] 2.5 mg PO DAILY #90 tablet 01/23/19 Ascorbate Calcium [Vitamin C] 500 mg PO DAILY 02/13/19 Ciclopirox/Urea/Camph/Men/Euc [Ciclopirox 8% Treatment Kit] 34.6 ml TP DAILY Ferrous Sulfate 325 mg PO DAILY 02/13/19 Family Medical History Family History: Unremarkable Physical Examination Vital Signs: Vital Signs Temperature 98.5 F 02/13/19 14:45 Pulse Rate 88 02/13/19 14:45 Respiratory Rate 19 02/13/19 14:45 Blood Pressure 110/59 L 02/13/19 14:45 O2 Sat by Pulse Oximetry (%) 99 02/13/19 14:45 Constitutional: Yes: No Distress, Calm Eyes: Yes: Conjunctiva Clear HENT: Yes: Atraumatic Neck: Yes: Supple Cardiovascular: Yes: Regular Rate and Rhythm Respiratory: Yes: CTA Bilaterally Gastrointestinal: Yes: Soft. No: Tenderness Musculoskeletal: No: Joint Stiffness, Joint Swelling Extremities: Yes: Erythema (LLE pretibial chronic). No: Cold, Cool, Cyanosis Edema: No Integumentary: Yes: Venous Stasis Changes (LLE). No: Skin Tear Neurological: Yes: WNL, Alert, Oriented ...Motor Strength: WNL Psychiatric: Yes: WNL, Alert, Oriented. No: Agitated, Suicidal Ideation Labs: CBC, BMP 02/13/19 12:00 02/13/19 11:43 Imaging - Results Chest X-ray: Report Reviewed Other: Report Reviewed Assessment/Plan Tracy Rosas is a 73yo woman with a PMH of CLL w/ pancytopenia, CHF, HTN, dementia, hepB, GI bleed who presents from [facility] with report of worsening anemia. Per paperwork from [facility], Ms Rosas had recent labs with hgb 6.9 on . transfusing prbcs pancytopenia --? marrow infiltration from CLL ? coexisting mds ? bmbx no obvious s/s of infection checking cultures
[2019-02-13] MEDS: QUEtiapine FUMARATE 25 MG TABLET (FP) PO SCH (22:50)
[2019-02-14 01:15] VITALS: BMI 23.0
--- NOTE | 2019-02-14 06:56 | PN ---
Progress Note, Physician Chief Complaint: in bed awake alert NAD VSS afebrile; received 1 U PRBC; labs pending - Current Medication List Current Medications: Active Medications Acetaminophen (Tylenol -) 650 mg PO Q6H PRN PRN Reason: FEVER Allopurinol (Zyloprim -) 300 mg PO DAILY [facility] Amlodipine Besylate (Norvasc -) 2.5 mg PO DAILY [facility] Ascorbic Acid (Vitamin C -) 500 mg PO DAILY [facility] Ferrous Sulfate (Feosol -) 325 mg PO DAILY [facility] Folic Acid (Folic Acid -) 1 mg PO DAILY [facility] Lamivudine (Epivir Oral Solution -) 100 mg PO DAILY [facility] Olanzapine (Zyprexa -) 10 mg PO DAILY [facility] Pantoprazole Sodium (Protonix -) 20 mg PO DAILY [facility] Quetiapine Fumarate (Seroquel -) 25 mg PO HS [facility] Last Admin: 02/13/19 22:50 Dose: 25 mg - Objective Vital Signs: Vital Signs Temperature 97.8 F 02/14/19 06:00 Pulse Rate 87 02/14/19 06:00 Respiratory Rate 20 02/14/19 06:00 Blood Pressure 108/46 L 02/14/19 06:00 O2 Sat by Pulse Oximetry (%) 100 02/13/19 21:00 Constitutional: Yes: No Distress, Calm Eyes: Yes: Conjunctiva Clear HENT: Yes: Atraumatic Neck: Yes: Supple Cardiovascular: Yes: Regular Rate and Rhythm Respiratory: Yes: CTA Bilaterally Gastrointestinal: Yes: Soft. No: Tenderness Genitourinary: No: Hematuria Musculoskeletal: No: Joint Stiffness, Joint Swelling Extremities: Yes: Erythema (LLE chronic). No: Cold, Cool Edema: No Integumentary: Yes: Venous Stasis Changes (LLE). No: Pressure Ulcer Neurological: Yes: Alert ...Motor Strength: WNL Psychiatric: Yes: Alert. No: Agitated, Suicidal Ideation Labs: CBC, BMP 02/13/19 12:00 02/13/19 11:43 INR, PTT INR 1.14 (0.83-1.09) H 02/13/19 12:00 - ....Imaging Other: Report Reviewed Assessment/Plan Tracy Rosas is a 73yo woman with a PMH of CLL w/ pancytopenia, CHF, HTN, dementia, hepB, GI bleed who presents from [facility] with report of worsening anemia and leukopenia admit inpt; transfuse PRBC; will ask heme onc input; consider sq neupogen (per heme) f/u labs; falls decubs PFX prognosis guarded PT CM eval; d/w pt and staff will call pt's daughter Dayana
[2019-02-14 08:18] LABS: ALBUMIN 2.7 g/dl (3.4-5.0); BILIRUBIN,TOTAL 0.9 mg/dL (0.2-1); CREATININE 1.5 mg/dL (0.55-1.3); POTASSIUM 3.9 mmol/L (3.5-5.1); TOT PROT 5.2 g/dl (6.4-8.2)
[2019-02-14 08:19] LABS: BASO % 2.2 % (0-2.0); HEMATOCRIT 21.5 % (32.4-45.2); HEMOGLOBIN 7.3 GM/dL (10.7-15.3); LYMPH % 57.4 % (8-40); MCH 28.3 pg (25.7-33.7); MCHC 34.1 g/dl (32.0-36.0); MEAN CELL VOLUME 82.8 fl (80-96); MEAN PLT VOLUME 6.8 fl (7.5-11.1); MONO % 7.3 % (3.8-10.2); NEUT % 28.1 % (42.8-82.8); PLATELET COUNT 152 K/MM3 (134-434); RBC 2.59 M/mm3 (3.60-5.2)
[2019-02-14 08:48] LABS: WHITE BLOOD COUNT 1.6 K/mm3 (4.0-10.0)
[2019-02-14] MEDS ORDERED: SODIUM CHLORIDE 1,000 ML IV SCH (09:45)
[2019-02-14] MEDS ORDERED: PT OWN MED DRAWER 7, Y5N ONE (10:24)
[2019-02-14 10:28] LABS: ANISOCYTOSIS 1+; PLATELET ESTIMATE NORMAL
[2019-02-14] MEDS: ALLOPURINOL 300 MG TABLET (FP) PO SCH (10:28)
[2019-02-14] MEDS: FERROUS SO4 325 MG TABLET (FP) PO SCH (10:28)
[2019-02-14] MEDS: ASCORBIC ACID 500 MG TABLET (FP) PO SCH (10:28)
[2019-02-14] MEDS: OLANZapine 10 MG TABLET PO SCH (10:28)
[2019-02-14] MEDS: PANTOPRAZOLE 20 MG TABLET (FP) PO SCH (10:29)
[2019-02-14] MEDS: FOLIC ACID 1 MG TABLET (FP) PO SCH (10:29)
[2019-02-14] MEDS: amLODIPine BESYLATE 2.5 MG TABLET (FP) PO SCH (10:29)
--- NOTE | 2019-02-14 10:42 | EKG ---
Test Reason : Blood Pressure : / mmHG Vent. Rate : 080 BPM Atrial Rate : 080 BPM P-R Int : 140 ms QRS Dur : 076 ms QT Int : 368 ms P-R-T Axes : 041 -31 027 degrees QTc Int : 424 ms POOR DATA QUALITY, INTERPRETATION MAY BE ADVERSELY AFFECTED NORMAL SINUS RHYTHM LEFT AXIS DEVIATION LOW VOLTAGE QRS SEPTAL INFARCT (CITED ON OR BEFORE 16-JAN-2019) ABNORMAL ECG Confirmed by MD HERBERT, TIFFANI ([id number]) on 02/14/2019 10:42:08 AM Referred By: Confirmed By:TIFFANI GODINEZ MD
[2019-02-14] MEDS: lamiVUDine 10 MG/1 ML BULK BOTTLE PO SCH (14:11)
--- NOTE | 2019-02-14 19:57 | PN ---
Progress Note (short form) - Note Progress Note: Patient seen and examined Hx of CLL- S/p Rituxin therapy in past History of refractory thrombocytopenia and neutropenia Multiple admissions for infection, cytopenias Last Vital Signs Temp Pulse Resp BP Pulse Ox 98.8 F 75 18 139/67 96 02/14/19 17:55 02/14/19 17:55 02/14/19 17:55 02/14/19 17:55 02/14/19 09:00 HEENT: FELIBERTO, EOM Intact Oropharynx: No thrush, No mucositis Cor: RSR, No murmurs, No gallops Lungs: Clear to P&A Abd: Soft, Normal bowel sounds, No organomegaly Ext:No significant edema Skin: No rashes, Integument intact CBC, BMP 02/14/19 06:25 02/14/19 06:25 Current Medications Generic Name Dose Route Start Last Admin Trade Name Freq PRN Reason Stop Dose Admin Acetaminophen 650 mg 02/13/19 15:25 Tylenol - PO Q6H PRN FEVER Allopurinol 300 mg 02/14/19 10:00 02/14/19 10:28 Zyloprim - PO 300 mg DAILY RYAN Administration Amlodipine Besylate 2.5 mg 02/14/19 10:00 02/14/19 10:29 Norvasc - PO 2.5 mg DAILY RYAN Administration Ascorbic Acid 500 mg 02/14/19 10:00 02/14/19 10:28 Vitamin C - PO 500 mg DAILY RYAN Administration Ferrous Sulfate 325 mg 02/14/19 10:00 02/14/19 10:28 Feosol - PO 325 mg DAILY RYAN Administration Folic Acid 1 mg 02/14/19 10:00 02/14/19 10:29 Folic Acid - PO 1 mg DAILY RYAN Administration Sodium Chloride 1,000 mls @ 50 mls/hr 02/14/19 09:45 02/14/19 11:31 Normal Saline - IV 02/15/19 09:37 50 mls/hr ASDIR RYAN Administration Lamivudine 100 mg 02/14/19 10:00 02/14/19 14:11 Epivir Oral Solution - PO 100 mg DAILY RYAN Administration Olanzapine 10 mg 02/14/19 10:00 02/14/19 10:28 Zyprexa - PO 10 mg DAILY RYAN Administration Pantoprazole Sodium 20 mg 02/14/19 10:00 02/14/19 10:29 Protonix - PO 20 mg DAILY RYAN Administration Quetiapine Fumarate 25 mg 02/13/19 22:00 02/13/19 22:50 Seroquel - PO 25 mg HS RYAN Administration Impression: Hx of CLL Pancytopenia Unclear etiology of pancytopenia Will therefore hold off G-CSF. Would transfuse packed cells to Hb > 8.0 gm% Will discuss with daughter possible bone marrow.
[2019-02-14] MEDS: QUEtiapine FUMARATE 25 MG TABLET (FP) PO SCH (21:32)
[2019-02-14] MEDS: ACETAMINOPHEN 325 MG TABLET (FP) PO PRN (21:32)
[2019-02-15 07:43] LABS: ALBUMIN 2.8 g/dl (3.4-5.0); BILIRUBIN,TOTAL 1.1 mg/dL (0.2-1); BLOOD UREA NITROGEN 26.9 mg/dL (7-18); CALCIUM 9.1 mg/dL (8.5-10.1); CREATININE 1.5 mg/dL (0.55-1.3); TOT PROT 5.3 g/dl (6.4-8.2)
[2019-02-15 08:04] LABS: HEMOGLOBIN 7.5 GM/dL (10.7-15.3); MCH 28.2 pg (25.7-33.7); MCHC 33.8 g/dl (32.0-36.0); MEAN CELL VOLUME 83.5 fl (80-96); RBC 2.64 M/mm3 (3.60-5.2); RDW 17.6 % (11.6-15.6)
[2019-02-15 08:05] LABS: BASO % 2.3 % (0-2.0); EOS % 4.7 % (0-4.5); LYMPH % 51.3 % (8-40); MEAN PLT VOLUME 7.6 fl (7.5-11.1); MONO % 8.3 % (3.8-10.2); NEUT % 33.4 % (42.8-82.8); PLATELET COUNT 178 K/MM3 (134-434)
[2019-02-15 08:14] LABS: WHITE BLOOD COUNT 1.6 K/mm3 (4.0-10.0)
--- NOTE | 2019-02-15 09:41 | PN ---
Progress Note, Physician Chief Complaint: in bed NAD no new c/o abs noted - Current Medication List Current Medications: Active Medications Acetaminophen (Tylenol -) 650 mg PO Q6H PRN PRN Reason: FEVER Last Admin: 02/14/19 21:32 Dose: 650 mg Allopurinol (Zyloprim -) 300 mg PO DAILY [facility] Last Admin: 02/14/19 10:28 Dose: 300 mg Amlodipine Besylate (Norvasc -) 2.5 mg PO DAILY [facility] Last Admin: 02/14/19 10:29 Dose: 2.5 mg Ascorbic Acid (Vitamin C -) 500 mg PO DAILY [facility] Last Admin: 02/14/19 10:28 Dose: 500 mg Ferrous Sulfate (Feosol -) 325 mg PO DAILY [facility] Last Admin: 02/14/19 10:28 Dose: 325 mg Folic Acid (Folic Acid -) 1 mg PO DAILY [facility] Last Admin: 02/14/19 10:29 Dose: 1 mg Lamivudine (Epivir Oral Solution -) 100 mg PO DAILY [facility] Last Admin: 02/14/19 14:11 Dose: 100 mg Olanzapine (Zyprexa -) 10 mg PO DAILY [facility] Last Admin: 02/14/19 10:28 Dose: 10 mg Pantoprazole Sodium (Protonix -) 20 mg PO DAILY [facility] Last Admin: 02/14/19 10:29 Dose: 20 mg Quetiapine Fumarate (Seroquel -) 25 mg PO HS [facility] Last Admin: 02/14/19 21:32 Dose: 25 mg - Objective Vital Signs: Vital Signs Temperature 98 F 02/15/19 06:00 Pulse Rate 71 02/15/19 06:00 Respiratory Rate 17 02/15/19 06:00 Blood Pressure 119/49 L 02/15/19 06:00 O2 Sat by Pulse Oximetry (%) 96 02/14/19 20:17 Constitutional: Yes: No Distress, Calm Eyes: Yes: Conjunctiva Clear HENT: Yes: Atraumatic Neck: Yes: Supple Cardiovascular: Yes: Regular Rate and Rhythm Respiratory: Yes: CTA Bilaterally Gastrointestinal: Yes: Soft. No: Tenderness Genitourinary: No: Hematuria Extremities: No: Calf Tenderness, Cold, Cool, Cyanosis Edema: No Integumentary: Yes: Venous Stasis Changes (RLE). No: Rash Neurological: Yes: Alert, Oriented ...Motor Strength: WNL Psychiatric: Yes: Alert, Oriented. No: Agitated, Suicidal Ideation Labs: CBC, BMP 02/15/19 06:30 02/15/19 06:30 INR, PTT INR 1.14 (0.83-1.09) H 02/13/19 12:00 - ....Imaging Other: Report Reviewed Assessment/Plan Tracy Rosas is a 73yo woman with a PMH of CLL w/ pancytopenia, CHF, HTN, dementia, hepB, GI bleed who presents from [facility] with report of worsening anemia and leukopenia transfuse PRBC; heme onc input apprecaited; consider sq neupogen (per heme) f/u labs; falls decubs PFX prognosis guarded PT CM eval; d/w pt and staff called pt's daughter Dayana
[2019-02-15] MEDS: amLODIPine BESYLATE 2.5 MG TABLET (FP) PO SCH (10:24)
[2019-02-15] MEDS: OLANZapine 10 MG TABLET PO SCH (10:24)
[2019-02-15] MEDS: FERROUS SO4 325 MG TABLET (FP) PO SCH (10:24)
[2019-02-15] MEDS: PANTOPRAZOLE 20 MG TABLET (FP) PO SCH (10:24)
[2019-02-15] MEDS: ASCORBIC ACID 500 MG TABLET (FP) PO SCH (10:24)
[2019-02-15] MEDS: FOLIC ACID 1 MG TABLET (FP) PO SCH (10:24)
[2019-02-15] MEDS: ALLOPURINOL 300 MG TABLET (FP) PO SCH (10:24)
[2019-02-15 10:39] LABS: ANISOCYTOSIS 1+; MACROCYTOSIS 0; PLATELET ESTIMATE NORMAL; TEAR DROP CELLS 1+
[2019-02-15 12:23] LABS: EPI CELLS >36 /HPF (0-5/HPF); HYALINE CASTS 17 /lpf (0-8); PH,URINE >= 9.0 (5.0-8.0); URINE APPEARANCE CLOUDY; URINE BACTERIA 6967.4 /hpf (NEGATIVE); URINE BILIRUBIN NEGATIVE (NEGATIVE); URINE COLOR YELLOW; URINE GLUCOSE (UA) NEGATIVE (NEGATIVE); URINE KETONE NEGATIVE (NEGATIVE); URINE LEUK ESTERASE 3+ (NEGATIVE); URINE NITRITE NEGATIVE (NEGATIVE); URINE PROTEIN 1+ (NEGATIVE); URINE RBC 1 /hpf (0-4); URINE UROBILINOGEN 0.2 mg/dL (0.2-1.0); URINE WBC 15 /hpf (0-5)
[2019-02-15] MEDS: lamiVUDine 10 MG/1 ML BULK BOTTLE PO SCH (16:00)
[2019-02-15] MEDS: ACETAMINOPHEN 325 MG TABLET (FP) PO PRN (21:03)
[2019-02-15] MEDS: QUEtiapine FUMARATE 25 MG TABLET (FP) PO SCH (21:03)
--- NOTE | 2019-02-15 21:44 | PN ---
Progress Note (short form) - Note Progress Note: patient seen and examined Little change clinically Hemogram unchanged Will plan for bone marrow 02/17
[2019-02-16 08:16] LABS: HEMATOCRIT 27.3 % (32.4-45.2); HEMOGLOBIN 9.1 GM/dL (10.7-15.3); MCHC 33.3 g/dl (32.0-36.0); MEAN CELL VOLUME 84.1 fl (80-96); MEAN PLT VOLUME 6.9 fl (7.5-11.1); PLATELET COUNT 147 K/MM3 (134-434); RBC 3.24 M/mm3 (3.60-5.2); RDW 17.8 % (11.6-15.6)
[2019-02-16 08:22] LABS: WHITE BLOOD COUNT 1.9 K/mm3 (4.0-10.0)
[2019-02-16 08:48] LABS: BLOOD UREA NITROGEN 24.5 mg/dL (7-18); CREATININE 1.4 mg/dL (0.55-1.3); POTASSIUM 3.8 mmol/L (3.5-5.1)
[2019-02-16 09:23] LABS: MACROCYTOSIS 0; PLATELET ESTIMATE DECREASED
--- NOTE | 2019-02-16 09:49 | PN ---
Progress Note, Physician Chief Complaint: no new c/o wants to go home bone marrow planned UCx sent (urine cloudy) - Current Medication List Current Medications: Active Medications Acetaminophen (Tylenol -) 650 mg PO Q6H PRN PRN Reason: FEVER Last Admin: 02/15/19 21:03 Dose: 650 mg Allopurinol (Zyloprim -) 300 mg PO DAILY [facility] Last Admin: 02/15/19 10:24 Dose: 300 mg Amlodipine Besylate (Norvasc -) 2.5 mg PO DAILY [facility] Last Admin: 02/15/19 10:24 Dose: 2.5 mg Ascorbic Acid (Vitamin C -) 500 mg PO DAILY [facility] Last Admin: 02/15/19 10:24 Dose: 500 mg Ferrous Sulfate (Feosol -) 325 mg PO DAILY [facility] Last Admin: 02/15/19 10:24 Dose: 325 mg Folic Acid (Folic Acid -) 1 mg PO DAILY [facility] Last Admin: 02/15/19 10:24 Dose: 1 mg Lamivudine (Epivir Oral Solution -) 100 mg PO DAILY [facility] Last Admin: 02/15/19 16:00 Dose: 100 mg Olanzapine (Zyprexa -) 10 mg PO DAILY [facility] Last Admin: 02/15/19 10:24 Dose: 10 mg Pantoprazole Sodium (Protonix -) 20 mg PO DAILY [facility] Last Admin: 02/15/19 10:24 Dose: 20 mg Quetiapine Fumarate (Seroquel -) 25 mg PO HS [facility] Last Admin: 02/15/19 21:03 Dose: 25 mg - Objective Vital Signs: Vital Signs Temperature 99 F 02/16/19 06:00 Pulse Rate 69 02/16/19 06:00 Respiratory Rate 18 02/16/19 09:00 Blood Pressure 118/57 L 02/16/19 06:00 O2 Sat by Pulse Oximetry (%) 95 02/16/19 09:00 Constitutional: Yes: No Distress Eyes: Yes: Conjunctiva Clear HENT: Yes: Atraumatic Neck: Yes: Supple Cardiovascular: Yes: Regular Rate and Rhythm Respiratory: Yes: CTA Bilaterally Gastrointestinal: Yes: Soft. No: Tenderness Musculoskeletal: No: Joint Stiffness, Joint Swelling Extremities: No: Cold, Cool Edema: No Integumentary: No: Rash Neurological: Yes: Alert ...Motor Strength: WNL Psychiatric: Yes: Alert. No: Agitated Labs: CBC, BMP 11/21/19 06:00 02/16/19 06:00 INR, PTT INR 1.14 (0.83-1.09) H 02/13/19 12:00 - ....Imaging Other: Report Reviewed Assessment/Plan Tracy Rosas is a 73yo woman with a PMH of CLL w/ pancytopenia, CHF, HTN, dementia, hepB, GI bleed who presents from [facility] with report of worsening anemia and leukopenia s/ p transfused PRBC; heme onc input appreciated; bone marrow biopsy f/u labs; falls decubs PFX prognosis guarded UCx r/o UTI PT CM eval; d/w pt and staff called pt's daughter Dayana message
[2019-02-16 09:55] LABS: ANISOCYTOSIS 1+
[2019-02-16] MEDS ORDERED: PT OWN MED DRAWER 7, Y5N ONE (10:59)
[2019-02-16] MEDS: amLODIPine BESYLATE 2.5 MG TABLET (FP) PO SCH (11:06)
[2019-02-16] MEDS: OLANZapine 10 MG TABLET PO SCH (11:06)
[2019-02-16] MEDS: ALLOPURINOL 300 MG TABLET (FP) PO SCH (11:06)
[2019-02-16] MEDS: PANTOPRAZOLE 20 MG TABLET (FP) PO SCH (11:06)
[2019-02-16] MEDS: ASCORBIC ACID 500 MG TABLET (FP) PO SCH (11:07)
[2019-02-16] MEDS: FOLIC ACID 1 MG TABLET (FP) PO SCH (11:07)
[2019-02-16] MEDS: lamiVUDine 10 MG/1 ML BULK BOTTLE PO SCH (11:07)
[2019-02-16] MEDS: FERROUS SO4 325 MG TABLET (FP) PO SCH (11:07)
[2019-02-16] MEDS: QUEtiapine FUMARATE 25 MG TABLET (FP) PO SCH (21:47)
--- NOTE | 2019-02-17 06:27 | PN ---
Progress Note (short form) - Note Progress Note: PAtient seen and examined Feels OK AFVSS Cor: RSR, No murmurs, No gallops Lungs: Clear to P&A Abd: Soft, Normal bowel sounds, No organomegaly Ext:No significant edema Labs/Meds reviewed A/P Hx of CLL Pancytopenia -- ? marrow infiltration from CLL ? componenet of MDS Would transfuse packed cells to Hb > 8.0 gm% Will discuss with daughter possible bone marrow
[2019-02-17 07:54] LABS: HEMATOCRIT 27.9 % (32.4-45.2); HEMOGLOBIN 9.2 GM/dL (10.7-15.3); MCH 27.6 pg (25.7-33.7); MCHC 32.9 g/dl (32.0-36.0); MEAN PLT VOLUME 7.4 fl (7.5-11.1); PLATELET COUNT 166 K/MM3 (134-434); RBC 3.32 M/mm3 (3.60-5.2); RDW 17.7 % (11.6-15.6)
[2019-02-17 08:26] LABS: BILIRUBIN,TOTAL 0.8 mg/dL (0.2-1); BLOOD UREA NITROGEN 25.6 mg/dL (7-18); CALCIUM 8.9 mg/dL (8.5-10.1); CREATININE 1.5 mg/dL (0.55-1.3); POTASSIUM 3.8 mmol/L (3.5-5.1); TOT PROT 5.6 g/dl (6.4-8.2)
--- NOTE | 2019-02-17 11:07 | PN ---
Progress Note (short form) - Note Progress Note: Patient seen and examined Offers no complaints Last Vital Signs Temp Pulse Resp BP Pulse Ox 98.9 F 75 18 109/71 98 02/17/19 09:48 02/17/19 09:48 02/17/19 09:48 02/17/19 09:48 02/17/19 08:56 HEENT: FELIBERTO, EOM Intact Cor: RSR, No murmurs, No gallops Lungs: Clear to P&A Abd: Soft, Normal bowel sounds, No organomegaly Ext:No significant edema Skin: No rashes, Integument intact CBC, BMP 02/17/19 06:00 02/17/19 06:00 Current Medications Generic Name Dose Route Start Last Admin Trade Name Freq PRN Reason Stop Dose Admin Acetaminophen 650 mg 02/13/19 15:25 02/15/19 21:03 Tylenol - PO 650 mg Q6H PRN Administration FEVER Allopurinol 300 mg 02/14/19 10:00 02/16/19 11:06 Zyloprim - PO 300 mg DAILY RYAN Administration Amlodipine Besylate 2.5 mg 02/14/19 10:00 02/16/19 11:06 Norvasc - PO 2.5 mg DAILY RYAN Administration Ascorbic Acid 500 mg 02/14/19 10:00 02/16/19 11:07 Vitamin C - PO 500 mg DAILY R[facility]AN Administration Ferrous Sulfate 325 mg 02/14/19 10:00 02/16/19 11:07 Feosol - PO 325 mg DAILY [facility]AN Administration Folic Acid 1 mg 02/14/19 10:00 02/16/19 11:07 Folic Acid - PO 1 mg DAILY [facility] Administration Lamivudine 100 mg 02/14/19 10:00 02/16/19 11:07 Epivir Oral Solution - PO 100 mg DAILY [facility] Administration Olanzapine 10 mg 02/14/19 10:00 02/16/19 11:06 Zyprexa - PO 10 mg DAILY [facility] Administration Pantoprazole Sodium 20 mg 02/14/19 10:00 02/16/19 11:06 Protonix - PO 20 mg DAILY [facility]AN Administration Quetiapine Fumarate 25 mg 02/13/19 22:00 02/16/19 21:47 Seroquel - PO 25 mg HS [facility]AN Administration Impression: CLL Anemia Neutropenia Plan : Spoke with daughter - will plan for bone marrow evaluation.
[2019-02-17] MEDS ORDERED: PT OWN MED DRAWER 7, Y5N ONE (11:11)
[2019-02-17] MEDS: amLODIPine BESYLATE 2.5 MG TABLET (FP) PO SCH (11:12)
[2019-02-17] MEDS: FOLIC ACID 1 MG TABLET (FP) PO SCH (11:12)
[2019-02-17] MEDS: ASCORBIC ACID 500 MG TABLET (FP) PO SCH (11:12)
[2019-02-17] MEDS: ALLOPURINOL 300 MG TABLET (FP) PO SCH (11:12)
[2019-02-17] MEDS: OLANZapine 10 MG TABLET PO SCH (11:12)
[2019-02-17 11:13] LABS: ANISOCYTOSIS 1+; MACROCYTOSIS 0; OVALOCYTE 1+; PLATELET ESTIMATE DECREASED
[2019-02-17] MEDS: PANTOPRAZOLE 20 MG TABLET (FP) PO SCH (11:13)
[2019-02-17] MEDS: lamiVUDine 10 MG/1 ML BULK BOTTLE PO SCH (11:13)
[2019-02-17] MEDS: FERROUS SO4 325 MG TABLET (FP) PO SCH (11:13)
--- NOTE | 2019-02-17 11:58 | PN ---
Progress Note, Physician Chief Complaint: for bone marrow today prelim UCx+ will ask ID Input low ANC - Current Medication List Current Medications: Active Medications Acetaminophen (Tylenol -) 650 mg PO Q6H PRN PRN Reason: FEVER Last Admin: 02/15/19 21:03 Dose: 650 mg Allopurinol (Zyloprim -) 300 mg PO DAILY [facility] Last Admin: 02/17/19 11:12 Dose: 300 mg Amlodipine Besylate (Norvasc -) 2.5 mg PO DAILY [facility] Last Admin: 02/17/19 11:12 Dose: 2.5 mg Ascorbic Acid (Vitamin C -) 500 mg PO DAILY [facility] Last Admin: 02/17/19 11:12 Dose: 500 mg Ferrous Sulfate (Feosol -) 325 mg PO DAILY [facility] Last Admin: 02/17/19 11:13 Dose: 325 mg Folic Acid (Folic Acid -) 1 mg PO DAILY [facility] Last Admin: 02/17/19 11:12 Dose: 1 mg Lamivudine (Epivir Oral Solution -) 100 mg PO DAILY [facility] Last Admin: 02/17/19 11:13 Dose: 100 mg Olanzapine (Zyprexa -) 10 mg PO DAILY [facility] Last Admin: 02/17/19 11:12 Dose: 10 mg Pantoprazole Sodium (Protonix -) 20 mg PO DAILY [facility] Last Admin: 02/17/19 11:13 Dose: 20 mg Quetiapine Fumarate (Seroquel -) 25 mg PO HS [facility] Last Admin: 02/16/19 21:47 Dose: 25 mg - Objective Vital Signs: Vital Signs Temperature 98.9 F 02/17/19 09:48 Pulse Rate 75 02/17/19 09:48 Respiratory Rate 18 02/17/19 09:48 Blood Pressure 109/71 02/17/19 09:48 O2 Sat by Pulse Oximetry (%) 98 02/17/19 08:56 Constitutional: Yes: No Distress, Calm Eyes: Yes: Conjunctiva Clear HENT: Yes: Atraumatic Neck: Yes: Supple Cardiovascular: Yes: Regular Rate and Rhythm Respiratory: Yes: CTA Bilaterally Gastrointestinal: Yes: Soft. No: Tenderness Genitourinary: No: Hematuria Musculoskeletal: No: Joint Stiffness, Joint Swelling Extremities: No: Cold, Cool Edema: No Integumentary: No: Rash Neurological: Yes: Alert ...Motor Strength: WNL Psychiatric: Yes: Alert. No: Agitated, Suicidal Ideation Labs: CBC, BMP 02/17/19 06:00 02/17/19 06:00 INR, PTT INR 1.14 (0.83-1.09) H 02/13/19 12:00 - ....Imaging Other: Report Reviewed Assessment/Plan Tracy Rosas is a 73yo woman with a PMH of CLL w/ pancytopenia, CHF, HTN, dementia, hepB, GI bleed who presents from [facility] with report of worsening anemia and leukopenia s/ p transfused PRBC; heme onc input appreciated; for bone marrow biopsy f/u labs; falls decubs PFX prognosis guarded UCx r/o UTI ID eval low ANC PT CM eval; d/w pt and staff called pt's daughter Dayana again (spoke with her once, I called again with updates)
[2019-02-17] MEDS ORDERED: LIDOCAINE HCL 1%, 10 MG/ML (20ML VIAL) NR ONE (11:59)
--- NOTE | 2019-02-17 13:54 | PN ---
Progress Note (short form) - Note Progress Note: ID CONSULT DICTATED RECURRENT UTI LEUKOPENIA/ NEUTROPENIA AZOTEMIA EMPIRIC LEVAQUIN 250MG PO QD PENDING C/S
[2019-02-17] MEDS ORDERED: LIDOCAINE HCL 1%, 10 MG/ML (20ML VIAL) ONE (14:20)
--- NOTE | 2019-02-17 15:26 | PROC ---
Bone Marrow Aspiration/Biopsy - Consent Indication: To stage disease Risks and Benefits Explained: Yes Consent on Chart: Yes - Procedure Location: Right Iliac Crest Anesthesia: 1% Lidocaine Sterile Technique: Yes Specimen: Obtained Position: Other Patient tolerated procedure: Well with minimal pain Sterile Dressing Applied: Yes
[2019-02-17] MEDS: QUEtiapine FUMARATE 25 MG TABLET (FP) PO SCH (21:12)
[2019-02-18 08:33] LABS: HEMATOCRIT 26.9 % (32.4-45.2); MCH 28.2 pg (25.7-33.7); MCHC 33.5 g/dl (32.0-36.0); MEAN CELL VOLUME 84.3 fl (80-96); MEAN PLT VOLUME 7.1 fl (7.5-11.1); PLATELET COUNT 153 K/MM3 (134-434); RBC 3.19 M/mm3 (3.60-5.2); RDW 17.6 % (11.6-15.6); WHITE BLOOD COUNT 2.1 K/mm3 (4.0-10.0)
--- NOTE | 2019-02-18 09:27 | PN ---
Progress Note, Physician Chief Complaint: s/p marrow biopsy no pain but wants to go home, unable to reach daughter po levaquin per ID afebrile - Current Medication List Current Medications: Active Medications Acetaminophen (Tylenol -) 650 mg PO Q6H PRN PRN Reason: FEVER Last Admin: 02/15/19 21:03 Dose: 650 mg Allopurinol (Zyloprim -) 300 mg PO DAILY [facility] Last Admin: 02/17/19 11:12 Dose: 300 mg Amlodipine Besylate (Norvasc -) 2.5 mg PO DAILY [facility] Last Admin: 02/17/19 11:12 Dose: 2.5 mg Ascorbic Acid (Vitamin C -) 500 mg PO DAILY [facility] Last Admin: 02/17/19 11:12 Dose: 500 mg Ferrous Sulfate (Feosol -) 325 mg PO DAILY [facility] Last Admin: 02/17/19 11:13 Dose: 325 mg Folic Acid (Folic Acid -) 1 mg PO DAILY [facility] Last Admin: 02/17/19 11:12 Dose: 1 mg Lamivudine (Epivir Oral Solution -) 100 mg PO DAILY [facility] Last Admin: 02/17/19 11:13 Dose: 100 mg Levofloxacin (Levaquin -) 250 mg PO DAILY@0600 [facility] Last Admin: 02/18/19 05:47 Dose: 250 mg Olanzapine (Zyprexa -) 10 mg PO DAILY [facility] Last Admin: 02/17/19 11:12 Dose: 10 mg Pantoprazole Sodium (Protonix -) 20 mg PO DAILY [facility] Last Admin: 02/17/19 11:13 Dose: 20 mg Quetiapine Fumarate (Seroquel -) 25 mg PO HS [facility] Last Admin: 02/17/19 21:12 Dose: 25 mg - Objective Vital Signs: Vital Signs Temperature 98.4 F 02/17/19 22:00 Pulse Rate 72 02/17/19 22:00 Respiratory Rate 18 02/18/19 09:00 Blood Pressure 127/66 02/17/19 22:00 O2 Sat by Pulse Oximetry (%) 98 02/18/19 09:00 Constitutional: Yes: Anxious Eyes: Yes: Conjunctiva Clear HENT: Yes: Atraumatic Neck: Yes: Supple Cardiovascular: Yes: Regular Rate and Rhythm Respiratory: Yes: CTA Bilaterally Gastrointestinal: Yes: Soft. No: Tenderness Genitourinary: No: Hematuria Musculoskeletal: No: Joint Stiffness, Joint Swelling Extremities: No: Cold, Cool Edema: No Integumentary: No: Rash Neurological: Yes: Alert ...Motor Strength: WNL Psychiatric: Yes: Alert. No: Agitated Labs: CBC, BMP 02/18/19 06:00 INR, PTT INR 1.14 (0.83-1.09) H 02/13/19 12:00 - ....Imaging Other: Report Reviewed Assessment/Plan Tracy Rosas is a 73yo woman with a PMH of CLL w/ pancytopenia, CHF, HTN, dementia, hepB, GI bleed who presents from [facility] with report of worsening anemia and leukopenia s/ p transfused PRBC; heme onc input appreciated; s/p bone marrow biopsy f/u labs; falls decubs PFX prognosis guarded UCx c/w UTI ID eval po ATB PT CM eval; d/w pt and staff unable to reach Dayana
[2019-02-18 09:29] LABS: BLOOD UREA NITROGEN 33.2 mg/dL (7-18); CALCIUM 9.1 mg/dL (8.5-10.1); CREATININE 1.7 mg/dL (0.55-1.3)
[2019-02-18] MEDS ORDERED: PT OWN MED DRAWER 7, Y5N ONE (10:21)
[2019-02-18] MEDS: ASCORBIC ACID 500 MG TABLET (FP) PO SCH (10:22)
[2019-02-18] MEDS: lamiVUDine 10 MG/1 ML BULK BOTTLE PO SCH (10:22)
[2019-02-18] MEDS: FOLIC ACID 1 MG TABLET (FP) PO SCH (10:22)
[2019-02-18] MEDS: PANTOPRAZOLE 20 MG TABLET (FP) PO SCH (10:22)
[2019-02-18] MEDS: FERROUS SO4 325 MG TABLET (FP) PO SCH (10:22)
[2019-02-18] MEDS: ALLOPURINOL 300 MG TABLET (FP) PO SCH (10:22)
[2019-02-18] MEDS: amLODIPine BESYLATE 2.5 MG TABLET (FP) PO SCH ×2 (10:22→10:31)
[2019-02-18] MEDS: OLANZapine 10 MG TABLET PO SCH (10:22)
--- NOTE | 2019-02-18 11:20 | PN ---
Progress Note (short form) - Note Progress Note: Patient seen in follow up. No new complaints. No significant events overnight. Does not nrecall bone marrow biopsy yesterday (?!) Inpatient Meds reviewed. Current Medications Acetaminophen (Tylenol -) 650 mg PO Q6H PRN PRN Reason: FEVER Last Admin: 02/15/19 21:03 Dose: 650 mg Allopurinol (Zyloprim -) 300 mg PO DAILY [facility] Last Admin: 02/18/19 10:22 Dose: 300 mg Amlodipine Besylate (Norvasc -) 2.5 mg PO DAILY [facility] Last Admin: 02/18/19 10:31 Dose: Not Given Ascorbic Acid (Vitamin C -) 500 mg PO DAILY [facility] Last Admin: 02/18/19 10:22 Dose: 500 mg Ferrous Sulfate (Feosol -) 325 mg PO DAILY [facility] Last Admin: 02/18/19 10:22 Dose: 325 mg Folic Acid (Folic Acid -) 1 mg PO DAILY [facility] Last Admin: 02/18/19 10:22 Dose: 1 mg Lamivudine (Epivir Oral Solution -) 100 mg PO DAILY [facility] Last Admin: 02/18/19 10:22 Dose: 100 mg Levofloxacin (Levaquin -) 250 mg PO DAILY@0600 [facility] Last Admin: 02/18/19 05:47 Dose: 250 mg Olanzapine (Zyprexa -) 10 mg PO DAILY [facility] Last Admin: 02/18/19 10:22 Dose: 10 mg Pantoprazole Sodium (Protonix -) 20 mg PO DAILY [facility] Last Admin: 02/18/19 10:22 Dose: 20 mg Quetiapine Fumarate (Seroquel -) 25 mg PO HS [facility] Last Admin: 02/17/19 21:12 Dose: 25 mg On Examination: Last Vital Signs Temp Pulse Resp BP Pulse Ox 98.3 F 68 18 97/56 L 98 02/18/19 10:30 02/18/19 10:30 02/18/19 10:30 02/18/19 10:30 02/18/19 09:00 General: In no acute distress, lying comfortably in bed. Extremities: No pallor or icterus. No pedal edema. No palpable lymphadenopathy. CVS: S1, S2, regular, no gallop or murmur. Chest: good air entry bilaterally, clear Abdomen: Non-distended, non-tender, no palpable organomegaly. Neuro: Alert, responsive. Labs: CBC, BMP 02/18/19 06:00 02/18/19 06:00 Assessment. History of CLL/SLL with secondary ITP - last treatment Rituximab July 2018, presenting with worsening anemia. Guiac negative, and no evidence of hemolysis. Concern about prior report of (myelo)blasts peripheral blood. Underwent bone marrow biopsy yesterday. Will follow up with Dr Garcia as outpatient for results.
[2019-02-18 12:03] LABS: ANISOCYTOSIS 1+; OVALOCYTE 1+; PLATELET ESTIMATE DECREASED
[2019-02-18] MEDS: QUEtiapine FUMARATE 25 MG TABLET (FP) PO SCH (21:09)
[2019-02-19] MEDS ORDERED: PT OWN MED DRAWER 7, Y5N ONE (09:32)
[2019-02-19] MEDS: ASCORBIC ACID 500 MG TABLET (FP) PO SCH (09:52)
[2019-02-19] MEDS: OLANZapine 10 MG TABLET PO SCH (09:52)
[2019-02-19] MEDS: PANTOPRAZOLE 20 MG TABLET (FP) PO SCH (09:52)
[2019-02-19] MEDS: FERROUS SO4 325 MG TABLET (FP) PO SCH (09:52)
[2019-02-19] MEDS: amLODIPine BESYLATE 2.5 MG TABLET (FP) PO SCH (09:52)
[2019-02-19] MEDS: FOLIC ACID 1 MG TABLET (FP) PO SCH (09:52)
[2019-02-19] MEDS: ALLOPURINOL 300 MG TABLET (FP) PO SCH (09:53)
[2019-02-19] MEDS: lamiVUDine 10 MG/1 ML BULK BOTTLE PO SCH (10:22)
--- NOTE | 2019-02-19 14:21 | PN ---
Progress Note (short form) - Note Progress Note: Patient seen in follow up. No new complaints. No significant events overnight. Inpatient Meds reviewed. Current Medications Acetaminophen (Tylenol -) 650 mg PO Q6H PRN PRN Reason: FEVER Last Admin: 02/15/19 21:03 Dose: 650 mg Allopurinol (Zyloprim -) 300 mg PO DAILY [facility] Last Admin: 02/19/19 09:53 Dose: 300 mg Amlodipine Besylate (Norvasc -) 2.5 mg PO DAILY [facility] Last Admin: 02/19/19 09:52 Dose: 2.5 mg Ascorbic Acid (Vitamin C -) 500 mg PO DAILY [facility] Last Admin: 02/19/19 09:52 Dose: 500 mg Ferrous Sulfate (Feosol -) 325 mg PO DAILY [facility] Last Admin: 02/19/19 09:52 Dose: 325 mg Folic Acid (Folic Acid -) 1 mg PO DAILY [facility] Last Admin: 02/19/19 09:52 Dose: 1 mg Lamivudine (Epivir Oral Solution -) 100 mg PO DAILY [facility] Last Admin: 02/19/19 10:22 Dose: 100 mg Levofloxacin (Levaquin -) 250 mg PO DAILY@0600 [facility] Last Admin: 02/19/19 05:06 Dose: 250 mg Olanzapine (Zyprexa -) 10 mg PO DAILY [facility] Last Admin: 02/19/19 09:52 Dose: 10 mg Pantoprazole Sodium (Protonix -) 20 mg PO DAILY [facility] Last Admin: 02/19/19 09:52 Dose: 20 mg Quetiapine Fumarate (Seroquel -) 25 mg PO HS [facility] Last Admin: 02/18/19 21:09 Dose: 25 mg On Examination: Last Vital Signs Temp Pulse Resp BP Pulse Ox 98 F 75 18 111/63 98 02/19/19 09:53 02/19/19 09:53 02/19/19 09:53 02/19/19 09:53 02/19/19 08:32 General: In no acute distress, lying comfortably in bed. Extremities: No pallor or icterus. No pedal edema. No palpable lymphadenopathy. CVS: S1, S2, regular, no gallop or murmur. Chest: good air entry bilaterally, clear Abdomen: Non-distended, non-tender, no palpable organomegaly. Neuro: Alert, responsive. Labs: (yesterday's) CBC, BMP 11/23/19 06:00 02/18/19 06:00 Assessment. History of CLL/SLL with secondary ITP - last treatment Rituximab July 2018, presenting with worsening anemia. Guiac negative, and no evidence of hemolysis. Concern about prior report of (myelo)blasts peripheral blood. Underwent bone marrow biopsy yesterday. Will follow up with Dr Garcia as outpatient for results.
--- NOTE | 2019-02-19 16:33 | PN ---
Progress Note, Physician Chief Complaint: no c/o calm in better spirit no pain afebrile - Current Medication List Current Medications: Active Medications Acetaminophen (Tylenol -) 650 mg PO Q6H PRN PRN Reason: FEVER Last Admin: 02/15/19 21:03 Dose: 650 mg Allopurinol (Zyloprim -) [address] [facility] Last Admin: 02/19/19 09:53 Dose: 300 mg Amlodipine Besylate (Norvasc -) 2.[address] [facility] Last Admin: 02/19/19 09:52 Dose: 2.5 mg Ascorbic Acid (Vitamin C -) [address] [facility] Last Admin: 02/19/19 09:52 Dose: 500 mg Ferrous Sulfate (Feosol -) [address] [facility] Last Admin: 02/19/19 09:52 Dose: 325 mg Folic Acid (Folic Acid -) [address] [facility] Last Admin: 02/19/19 09:52 Dose: 1 mg Lamivudine (Epivir Oral Solution -) [address] [facility] Last Admin: 02/19/19 10:22 Dose: 100 mg Levofloxacin (Levaquin -) 250 mg PO DAILY@0600 [facility] Last Admin: 02/19/19 05:06 Dose: 250 mg Olanzapine (Zyprexa -) [address] [facility] Last Admin: 02/19/19 09:52 Dose: 10 mg Pantoprazole Sodium (Protonix -) [address] [facility] Last Admin: 02/19/19 09:52 Dose: 20 mg Quetiapine Fumarate (Seroquel -) [address] [facility] Last Admin: 02/18/19 21:09 Dose: 25 mg - Objective Vital Signs: Vital Signs Temperature 98 F 02/19/19 09:53 Pulse Rate 75 02/19/19 09:53 Respiratory Rate 18 02/19/19 09:53 Blood Pressure 111/63 02/19/19 09:53 O2 Sat by Pulse Oximetry (%) 98 02/19/19 08:32 Constitutional: Yes: No Distress, Calm Eyes: Yes: Conjunctiva Clear HENT: Yes: Atraumatic Neck: Yes: Supple Cardiovascular: Yes: Regular Rate and Rhythm Respiratory: Yes: CTA Bilaterally Gastrointestinal: Yes: Soft. No: Tenderness Genitourinary: No: Hematuria Musculoskeletal: No: Joint Stiffness, Joint Swelling Extremities: No: Cold, Cool Edema: No Integumentary: No: Rash Neurological: Yes: Alert ...Motor Strength: WNL Psychiatric: Yes: Alert. 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
[2019-02-19] MEDS: QUEtiapine FUMARATE 25 MG TABLET (FP) PO SCH (21:16)
[2019-02-20 08:25] LABS: HEMATOCRIT 25.8 % (32.4-45.2); HEMOGLOBIN 8.8 GM/dL (10.7-15.3); MCH 28.4 pg (25.7-33.7); MCHC 34.1 g/dl (32.0-36.0); MEAN CELL VOLUME 83.4 fl (80-96); MEAN PLT VOLUME 7.3 fl (7.5-11.1); PLATELET COUNT 168 K/MM3 (134-434); RBC 3.09 M/mm3 (3.60-5.2); RDW 17.2 % (11.6-15.6); WHITE BLOOD COUNT 2.4 K/mm3 (4.0-10.0)
[2019-02-20 08:49] LABS: BILIRUBIN,TOTAL 0.7 mg/dL (0.2-1); BLOOD UREA NITROGEN 37.7 mg/dL (7-18); CALCIUM 8.9 mg/dL (8.5-10.1); CREATININE 1.6 mg/dL (0.55-1.3); POTASSIUM 3.9 mmol/L (3.5-5.1); TOT PROT 5.8 g/dl (6.4-8.2)
--- NOTE | 2019-02-20 09:11 | DS ---
Physical Examination Vital Signs: Vital Signs Temperature 98.3 F 02/19/19 22:00 Pulse Rate 70 02/19/19 22:00 Respiratory Rate 18 02/19/19 22:00 Blood Pressure 119/57 L 02/19/19 22:00 O2 Sat by Pulse Oximetry (%) 98 02/19/19 21:00 Findings/Remarks: awake alert NAD afebrile in bed no c/o feels well wants to go home labs stable; UCx noted on po levaquin x 5 days more ordered s/p bone marrow biopsy results pending d/w heme OK to DC home f/u in office d/w pt and CM pt wants to go home needs [employer] and [facility] home PT d/w pt's daughter Dayana the DC instructions and f/u needed Constitutional: Yes: No Distress, Calm Eyes: Yes: Conjunctiva Clear HENT: Yes: Atraumatic Neck: Yes: Supple Cardiovascular: Yes: Regular Rate and Rhythm Respiratory: Yes: CTA Bilaterally Gastrointestinal: Yes: Soft. No: Tenderness Renal/: No: Hematuria Musculoskeletal: No: Joint Stiffness, Joint Swelling Extremities: No: Cold, Cool, Cyanosis Edema: No Integumentary: Yes: Venous Stasis Changes (RLE stable better now). No: Rash Neurological: Yes: WNL, Alert, Oriented ...Motor Strength: WNL Psychiatric: Yes: WNL, Alert, Oriented. No: Agitated, Suicidal Ideation Labs: CBC, BMP 02/20/19 06:00 02/20/19 06:00 Discharge Summary Problems reviewed: Yes Reason For Visit: PANCYTOPENIA Current Active Problems Pancytopenia (Acute) Procedures: Principal: 73 YOF CLL admitted with anemia leukopenia weakness Other Procedures: transfused PRBC; seen by heme onc; had Bone marrow biopsy; Hospital Course: improved with PRBC; had UTI seen by ID started on ATB Health Concerns: CLL; UTI Plan of Treatment: see above; improved; DC home on po ATB x 5 days; f/u PCP and heme onc in 1-2 weeks; f/u BMarrow Bx results outpt Condition: Stable - Instructions Diet, Activity, Other Instructions: f/u PCP and heme onc in 1-2 weeks; finish po levaquin as ordered; good po hydration; f/u labs in 1-2 weeks; f/u bone marrow biopsy in 1 weeks with ONC; RTER if worse or recurrent c/o Referrals: Sabi Jordan [Staff Physician] - Stu Garcia MD [Staff Physician] - Disposition: [facility]/HOME HEALTH CARE - Home Medications Comprehensive Discharge Medication List: Ambulatory Orders Allopurinol [Zyloprim -] 300 mg PO DAILY #90 tablet 04/13/18 Olanzapine [Zyprexa -] 10 mg PO DAILY 10/08/18 Pantoprazole Sodium [Protonix -] 20 mg PO DAILY 10/08/18 Folic Acid - 1 mg PO DAILY tablet 10/19/18 Lamivudine [Lamivudine Hbv] 100 mg PO DAILY 11/01/18 Quetiapine Fumarate [Seroquel -] 25 mg PO HS 12/21/18 Acetaminophen [Tylenol .Regular Strength -] 650 mg PO Q6H PRN tablet 01/04/19 Amlodipine Besylate [Norvasc -] 2.5 mg PO DAILY #90 tablet 01/23/19 Ascorbate Calcium [Vitamin C] 500 mg PO DAILY 02/13/19 Ferrous Sulfate 325 mg PO DAILY 02/13/19 levoFLOXacin [Levaquin -] 250 mg PO DAILY@0600 #5 tablet 02/20/19
[2019-02-20] MEDS: FOLIC ACID 1 MG TABLET (FP) PO SCH (09:36)
[2019-02-20] MEDS: amLODIPine BESYLATE 2.5 MG TABLET (FP) PO SCH (09:36)
[2019-02-20] MEDS: OLANZapine 10 MG TABLET PO SCH (09:36)
[2019-02-20] MEDS: ALLOPURINOL 300 MG TABLET (FP) PO SCH (09:37)
[2019-02-20] MEDS: lamiVUDine 10 MG/1 ML BULK BOTTLE PO SCH (09:37)
[2019-02-20] MEDS: PANTOPRAZOLE 20 MG TABLET (FP) PO SCH (09:37)
[2019-02-20] MEDS: ASCORBIC ACID 500 MG TABLET (FP) PO SCH (09:37)
[2019-02-20] MEDS: FERROUS SO4 325 MG TABLET (FP) PO SCH (09:37)
[2019-02-20 11:25] LABS: ANISOCYTOSIS 1+; MACROCYTOSIS 0; PLATELET ESTIMATE NORMAL; TEAR DROP CELLS 2+
[2019-02-20 14:21] VITALS: BP 91/45; PULSE 63; TEMP 98.4
--- NOTE | 2019-02-28 15:23 | PATH ---
Surgical Pathology Report Patient Name: AYLEEN GILMORE Med. Rec. #: [id number] /Age/Gender: 1945 (Age: 73) / F Account: [id number] Location: [facility] MED/SURG Taken: 02/17/2019 Received: 02/17/2019 Reported: 02/28/2019 Physicians: Stu Garcia M.D. Specimen(s) Received A: BONE MARROW BIOPSY B: BONE MARROW ASPIRATION SMEARS C: BONE MARROW BLOOD Clinical History CLL, neutropenia, anemia Final Diagnosis A-C. BONE MARROW, ILIAC CREST, RIGHT, SMEARS AND CORE BIOPSY: HYPERCELLULAR MARROW WITH MATURING TRILINEAGE HEMATOPOIESIS, DYSPOIESIS AND INCREASED BLASTS CONSISTENT WITH MYELODYSPLASTIC SYNDROME, SEE COMMENT. LOW LEVEL INVOLVEMENT BY B CELL CLL (<5%). MARKEDLY INCREASED STORAGE IRON. MDS FISH PANEL: NEGATIVE. CLL PANEL: 1. NEGATIVE FOR A T(11;14)/CCND1-IGH REARRANGEMENT. 2. NEGATIVE FOR A DELETION OF MELA ON THE LONG ARM OF CHROMOSOME 11 AT Q22. 3. NEGATIVE FOR TRISOMY 12. 4. NEGATIVE FOR MONOSOMY 13 AND A DELETION OF DLEU1,DLEU2 ON THE LONG ARM OF CHROMOSOME 13 AT Q14. 5. NEGATIVE FOR A DELETION OF TP53 ON THE SHORT ARM OF CHROMOSOME 17 AT P13. NORMAL FEMALE CHROMOSOME COMPLEMENT. Comment: The blasts account for 9% of the marrow cellularity morphologically. The findings are consistent with a myelodysplastic syndrome with excess blasts (MDS-EB-1). Correlation with cytogenetic/FISH studies is recommended. This case [facility] [place] [place] ([id number]) the diagnosis above reflects his opinion. Aspirate Bone Marrow Differential Count Cell type Result (%) Reference range (%) Cell type Result (%) Reference range (%) BLASTS 9.00 0-3 Promyelocytes 17.00 2-8 MYELOCYTES 31.00 10-13 Metamyelocytes 2.00 10-15 NEUTROPHILS/BANDS 3.00 25-40 Monocytes 1.00 0-1 EOSINOPHILS 1.00 1-3 Basophils 0.00 0-1 LYMPHOCYTES 7.00 10-15 Plasma cells 2.00 0-1 ERYTHROID SERIES 19.00 15-25 Pronormoblasts 8.00 0-2 M:E RATIO 2.4:1 Microscopic results Extrinsic Cells: No Cellularity: Cellular with adequate spicules and maturing trilineage hematopoiesis. Erythroid Precursors: Left shift, megaloblastic change and nuclear budding or binucleation. Myeloid Precursors: Granulocytic series shows maturation to segmented neutrophils with left shift and dysplasia hyposegmentation). Blasts are increased. There is no significant monocytosis, eosinophilia, or basophilia. Megakaryocytes: Decreased with cytologic atypia (hypolobulation or nuclear lobes). Lymphoid Cells: No significant lymphocytosis; no overt cytologic abnormalities. Plasma Cells: No significant plasmacytosis. Iron Stain: Increased storage iron [marked]. Detectable sideroblastic iron. Increased ringed sideroblasts are not observed. Bone marrow biopsy Microscopic Result :H&E stained sections show a hypercellular marrow (50-60%) with maturing trilineage hematopoiesis. The M:E ratio is increased. Granulocytic series shows maturation to segmented neutrophils with left shift. There are abnormally localized immature precursors noted. CD34 immunostain shows increased blasts accounting for approximately 8-10% of the marrow cellularity. Megakaryocytes are adequate in number and exhibit cytologic atypia (hypolobulation). Immunostains reveal two small clusters of CD20, CD79a and CD5 positive and cyclin d1 negative B cells, accounting for <5% of the marrow cellularity. No significant plasma cell infiltrate is noted. Iron Stain: Stainable iron present. Reticulin Stain: No significant increase in reticulin fibers. Immunohistochemistry CD20: B-cells Positive CD79a: B-cells Positive CD5(4C7): B-cells Positive CD3: T-cells Positive CD34: 5-10% KAPPA IHC: Plasma Cells Positive LAMBDA IHC: Plasma Cells Myeloperoxidase IHC: Myeloid Cells Positive CD71: Erythroid Cells Positive p53: Negative CYCLIN D1: Negative CD138: Plasma Cells Positive CD117: Scattered B-Cells Positive CD23: Negative and suboptimal CD61: Megakaryocytes Positive FLOW CYTOMETRY ANALYSIS performed and reported by [facility] ([id number]) shows the following: INTERPRETATION: BONE MARROW ASPIRATE: -A small monoclonal B-Cell Population with a phenotype of B-Cell CLL is identified (0.5%). -Increased myeloid blast (14%) Granulocytic Left Shift. Phenotype: 1. A small monoclonal lambda B-cell population co- expressing CD5 and CD23 is present (0.5%). There is dim surface lambda expression and dim cd20 expression. Cd38 expression is detected. 2. Granulocytic left shift is seen. Cd14+monocytes are 1% of total cells. There is no increase in cd34 positive blast, and they comprise 14% of the total cells. The t-cells (6% of total) show no hinson t-cell antigen deletion. Based on few bright cd38+ cells, plasma cells are rare. FLUORESCENCE IN-SITU HYBRIDIZATION (FISH) STUDIES performed and reported by [facility] ([id number]) shows the following: INTERPRETATION: MDS panel: 1. Negative for monosomy 5 and a deletion of CSF1R/RPS14 on the long arm of chromosome 5 at q33. 2. Negative for monosomy 7 and a deletion of MDFIC on the long arm of chromosome 7 at q31. 3. Negative for trisomy 8. 4. Negative for a deletion of PTPRT on the long arm of chromosome 20 at q12. CLL panel: 1. Negative for a t(11;14)/CCND1-IGH rearrangement. 2. Negative for a deletion of MELA on the long arm of chromosome 11 at q22. 3. Negative for trisomy 12. 4. Negative for monosomy 13 and a deletion of DLEU1,DLEU2 on the long arm of chromosome 13 at q14. 5. Negative for a deletion of TP53 on the short arm of chromosome 17 at p13. CHROMOSOME ANALYSIS performed and reported by [facility] ([id number]) shows the following: RESULTS: 46,XX[20] Female karyotype INTERPRETATION: Normal female chromosome complement observed in all cells examined. There was no evidence of a chromosome Abnormality within the limits of the technology utilized. See [facility] ([id number], [id number], [id number]) for additional details. Electronically Signed Josselyn Long M.D. Gross Description A. Received in formalin labeled with the patient's name and indicated on the requisition to be a bone marrow biopsy, is a 1.7 cm in length x 0.2 cm in diameter lagos, cylindrical portion of bone. The specimen is submitted in toto in one cassette, following decalcification. B. Received are 2 green top tubes of blood which are sent to [facility]. C. Received are 9 bone marrow aspiration smear slides. 02/20/2019 [facility]02/20/2019
== END 2019-02-20 17:50 | disposition home health service (06) | DRG 841 ==
LOC: JER 11:01 → JERBED 13:13 → J7W 21:34
PROVIDERS: ADMIT Internal Medicine; ATTEND Internal Medicine
PROC: 30233N1 Transfusion of Nonautologous Red Blood Cells into Peripheral Vein, Percutaneous Approach (ICD-10-PCS; 2019-02-13)
PROC: 07DR3ZX Extraction of Iliac Bone Marrow, Percutaneous Approach, Diagnostic (ICD-10-PCS; principal; 2019-02-17)
DX: C91.10 Chronic lymphocytic leukemia of B-cell type not having achieved remission (principal); D61.818 Other pancytopenia; N39.0 Urinary tract infection, site not specified; D64.9 Anemia, unspecified; F03.90 Unspecified dementia, unspecified severity, without behavioral disturbance, psychotic disturbance, mood disturbance, and anxiety; K21.9 Gastro-esophageal reflux disease without esophagitis; K57.90 Diverticulosis of intestine, part unspecified, without perforation or abscess without bleeding; F41.9 Anxiety disorder, unspecified; M54.5 Low back pain; B96.20 Unspecified Escherichia coli [E. coli] as the cause of diseases classified elsewhere; Z86.19 Personal history of other infectious and parasitic diseases; Z87.442 Personal history of urinary calculi
CPT/HCPCS: 36415; 36430; 36511; 71045-TC-FY; 76775-TC; 76856-TC; 80048; 80053; 81003; 82272; 85025; 85610; 85730; 86850; 86900; 86901; 86922; 87040; 87086; 87186; 88300-TC; 88305-TC; 88311-TC; 88313-TC; 93005; 93010; 97116-GP; 97161-GP; 99285-25; J7030; P9038; P9058

== ENCOUNTER 2019-03-16 14:01 | Inpatient (IN) | payer OTHER, MEDICARE ==
--- NOTE | 2019-03-16 14:11 | PDOC ---
Rapid Medical Evaluation Chief Complaint: Altered Mental Status Time Seen by Provider: 03/16/19 14:08 Medical Evaluation: Allergies Allergy/AdvReac Type Severity Reaction Status Date / Time vancomycin AdvReac Verified 12/26/18 07:37 03/16/19 14:09 I have performed a brief in-person evaluation of this patient. The patient presents with a chief complaint of:worsening of alertness/ weakness. Pertinent physical exam findings: pale / weak/ leukemia I have ordered the following: Labs/ The patient will proceed to the ED for further evaluation. Discharge Disposition - Diagnosis AMS (altered mental status) - Referrals - Patient Instructions - Post Discharge Activity
[2019-03-16 15:16] LABS: BASO % 0.1 % (0-2.0); EOS % 1.5 % (0-4.5); HEMATOCRIT 21.4 % (32.4-45.2); LYMPH % 14.5 % (8-40); MCH 27.3 pg (25.7-33.7); MEAN CELL VOLUME 82.8 fl (80-96); MEAN PLT VOLUME 7.8 fl (7.5-11.1); MONO % 20.9 % (3.8-10.2); PLATELET COUNT 173 K/MM3 (134-434); RBC 2.58 M/mm3 (3.60-5.2); RDW 16.6 % (11.6-15.6)
--- NOTE | 2019-03-16 15:17 | PDOC ---
History of Present Illness - General Chief Complaint: Altered Mental Status Stated Complaint: Psychiatric Time Seen by Provider: 03/16/19 14:08 - History of Present Illness Initial Comments: 03/16/19 15:09 HPI: 73 y/o M with hx of CLL, pancytopenia, CHF, HTN, dementia (a&ox2 at baseline), HBV brought in by her ex-partner for "nerves" and decreased PO over several weeks. He reports that the patient has been increasingly agitated at home over that same time period; patient inappropriately yells at home and at family members when they visit. Patient also reportedly walks outside without a coat in cold weather and sits on neighbors' porches. Patient is poor historian and constantly reports "its my nerves" when asked additional questions. She reports adequate sleep and energy during the day. Denies SI/HI, delusions, auditory/ visual hallucinations. Denies fever, chest pain, SOB, dysuria, abd pain, n/v. Ex -partner thinks she needs a group home because she cant take care of herself PMHx: as noted above ROS: as noted SHx: Denies tobacco use; no alcohol use; no rec drugs Allergies: see chart ROS: GENERAL/CONSTITUTIONAL: No fever or chills. No weakness. HEAD, EYES, EARS, NOSE AND THROAT: No change in vision. No ear pain or discharge. No sore throat. CARDIOVASCULAR: No chest pain or shortness of breath RESPIRATORY: No cough, wheezing, or hemoptysis. GASTROINTESTINAL: No nausea, vomiting, diarrhea or constipation. GENITOURINARY: No dysuria, frequency, or change in urination. MUSCULOSKELETAL: No joint or muscle swelling or pain. No neck or back pain. SKIN: No rash NEUROLOGIC: No headache, vertigo, loss of consciousness, or change in strength/ sensation. ENDOCRINE: No increased thirst. No abnormal weight change HEMATOLOGIC/LYMPHATIC: No anemia, easy bleeding, or history of blood clots. ALLERGIC/IMMUNOLOGIC: No hives or skin allergy. PE: GENERAL: Awake, a&ox2 to person and place, flat affect and monotonous HEAD: No signs of trauma, normocephalic, atraumatic EYES: EOMI, sclera anicteric, conjunctiva clear ENT: Auricles normal inspection, hearing grossly normal, nares patent, oropharynx clear without exudates, poor dentition. Moist mucosa NECK: Normal ROM, no lymphadenopathy LUNGS: No increased work of breathing, symmetrical chest rise, clear to auscultation bilaterally, no wheezes, crackles or rhonchi HEART: Regular rate and rhythm, normal S1 and S2, no murmurs, peripheral pulses 2+ and equal bilaterally. ABDOMEN: Soft, nondistended, nontender, normoactive bowel sounds. No guarding, no rebound. No masses. No CVAT MUSCULOSKELETAL: Normal inspection, FROM NEUROLOGICAL: Cranial nerves II through XII grossly intact. Normal speech, normal gait, no focal sensorimotor deficits SKIN: Warm, Dry, normal turgor, no rashes or lesions noted Past History - Past Medical History Allergies/Adverse Reactions: Allergies Allergy/AdvReac Type Severity Reaction Status Date / Time vancomycin AdvReac Verified 03/16/19 14:13 Home Medications: Ambulatory Orders Allopurinol [Zyloprim -] 300 mg PO DAILY #90 tablet 04/13/18 Olanzapine [Zyprexa -] 10 mg PO DAILY 10/08/18 Pantoprazole Sodium [Protonix -] 20 mg PO DAILY 10/08/18 Folic Acid - 1 mg PO DAILY tablet 10/19/18 Lamivudine [Lamivudine Hbv] 100 mg PO DAILY 11/01/18 Quetiapine Fumarate [Seroquel -] 25 mg PO HS 12/21/18 Acetaminophen [Tylenol .Regular Strength -] 650 mg PO Q6H PRN tablet 01/04/19 Amlodipine Besylate [Norvasc -] 2.5 mg PO DAILY #90 tablet 01/23/19 Ascorbate Calcium [Vitamin C] 500 mg PO DAILY 02/13/19 Ferrous Sulfate 325 mg PO DAILY 02/13/19 levoFLOXacin [Levaquin -] 250 mg PO DAILY@0600 #5 tablet 02/20/19 Anemia: Yes (pancytopenia) Asthma: No Cancer: (Chronic Lymphocytic leukemia) Cardiac Disorders: (CHF) CVA: No COPD: No CHF: Yes Dementia: No Diabetes: No GI Disorders: Yes (GERD, gallstones, diverticulosis, GIB) Disorders: Yes (UTIs, VRE bacteremia, large kidney stones) HTN: Yes Hypercholesterolemia: No Liver Disease: No Psychiatric Problems: Yes (possibe dementia) Seizures: No Thyroid Disease: No - Surgical History Abdominal Surgery: No Appendectomy: No Cardiac Surgery: No Cholecystectomy: No Lung Surgery: No Neurologic Surgery: No Orthopedic Surgery: No - Immunization History Immunization Up to Date: Yes - Psycho Social/Smoking Cessation Hx Smoking Status: No Smoking History: Never smoked Have you smoked in the past 12 months: No Number of Cigarettes Smoked Daily: 0 Hx Alcohol Use: No Drug/Substance Use Hx: No Substance Use Type: None Hx Substance Use Treatment: No *Physical Exam - Vital Signs Last Vital Signs Temp Pulse Resp BP Pulse Ox 98.5 F 80 18 103/59 L 98 03/16/19 14:08 03/16/19 14:08 03/16/19 14:08 03/16/19 14:08 03/16/19 14:08 ED Treatment Course - LABORATORY CBC & Chemistry Diagram: 03/16/19 15:00 03/16/19 15:00 - RADIOLOGY Radiology Studies Ordered: Category Date Time Status HEAD CT WITHOUT CONTRAST [CT] Stat CT Scan 03/16/19 14:54 Ordered CHEST PA & LAT [RAD] Stat Radiology 03/16/19 14:53 Ordered Medical Decision Making - Medical Decision Making 03/16/19 15:17 73 y/o M with hx of CLL, pancytopenia, CHF, HTN, dementia (a&ox2 at baseline), HBV brought in by her ex-partner for "nerves" and decreased PO over several weeks with concerns for not being able to care herself while living alone at home. VSS, AF. PE unremarkable -cbc, cmp, ua, mg, phos, cxr, CT head -consult case management 03/16/19 17:06 Hb 7.0 UA positive for uti discussed with case management and patient will need to be reassessed for alf care facility given family concerns discussed with dr herrera and she would like admission of patient for uti and anemia Discharge - Discharge Information Problems reviewed: Yes Clinical Impression/Diagnosis: AMS (altered mental status) Qualifiers: Altered mental status type: unspecified Qualified Code(s): R41.82 - Altered mental status, unspecified Anemia Qualifiers: Anemia type: unspecified type Qualified Code(s): D64.9 - Anemia, unspecified UTI (urinary tract infection) Qualifiers: Urinary tract infection type: site unspecified Hematuria presence: without hematuria Qualified Code(s): N39.0 - Urinary tract infection, site not specified Condition: Fair - Admission Yes - Follow up/Referral - Patient Discharge Instructions - Post Discharge Activity
[2019-03-16 15:43] LABS: ALBUMIN 3.1 g/dl (3.4-5.0); CALCIUM 8.7 mg/dL (8.5-10.1); CREATININE 1.6 mg/dL (0.55-1.3); POTASSIUM 3.5 mmol/L (3.5-5.1); TOT PROT 5.9 g/dl (6.4-8.2)
--- NOTE | 2019-03-16 16:48 | PDOC ---
Documentation entered by Darling De La Rosa SCRIBE, acting as scribe for Rich Sanders MD. Rich Sanders MD: This documentation has been prepared by the wingibeRj Lincy, SCRIBE, under my direction and personally reviewed by me in its entirety. I confirm that the documentation accurately reflects all work, treatment, procedures, and medical decision making performed by me. Attending Attestation - Resident Resident Name: JovanniDante - ED Attending Attestation I have performed the following: I have examined & evaluated the patient, The case was reviewed & discussed with the resident, I agree w/resident's findings & plan, Exceptions are as noted - HPI HPI: 03/16/19 16:23 The patient is a 73-year-old male with a past medical history significant for CLL, CHF, HTN, HBV, who presents to the emergency department for agitation and "nerves". The patient reports shes here for nerves, however her ex-partner whose at bedside reports, the patient has been agitated at home and was found outside in the cold without a coat today. The patient reports she lives by herself. Denies chest pain, shortness of breath, or abdominal pain. - Physicial Exam PE: 03/16/19 16:47 Vitals: Triage vital signs reviewed General Appearance: No acute distress, well nourished, well developed Head: Atraumatic Neck: Supple; No nuchal rigidity Chest Wall: Nontender Cardiac: Regular rate and rhythm, no murmurs, no rubs, no gallops Lungs: Clear to auscultation bilateral, good air movement bilaterally Abdomen: Soft, nondistended, nontender to palpation Extremities: Full range of motion to all extremities, no cyanosis, clubbing, or edema Skin: Warm and dry, no rashes or lesions, no rash, no petechiae Neuro: Cranial Nerves 2-12 grossly intact, Strength intact to all extremities , Sensation intact to all extremities, gait normal. Psych: Normal mood, normal affect. - Medical Decision Making 03/16/19 17:07 73 years old with chronic anemia chronic UTIs presents with agitation and slight altered mental status We will admit to hospital for treatment of UTI and anemia PCP aware
[2019-03-16 17:00] LABS: EPI CELLS 4.4 /HPF (0-5/HPF); HYALINE CASTS 9 /lpf (0-8); URINE APPEARANCE TURBID; URINE BILIRUBIN NEGATIVE (NEGATIVE); URINE COLOR YELLOW; URINE GLUCOSE (UA) NEGATIVE (NEGATIVE); URINE KETONE NEGATIVE (NEGATIVE); URINE LEUK ESTERASE 3+ (NEGATIVE); URINE NITRITE POSITIVE (NEGATIVE); URINE PROTEIN 2+ (NEGATIVE); URINE WBC 845 /hpf (0-5)
[2019-03-16] MEDS ORDERED: SODIUM CHLORIDE 1,000 ML IV STA (17:05)
[2019-03-16] MEDS ORDERED: CEFTRIAXONE 1 GM in DEXTROSE 5%-WATER - 100 ML IVPB ONE (17:05)
[2019-03-16 17:18] LABS: URINE RBC 40.6 /hpf (0-4); YEAST FEW (NEGATIVE)
[2019-03-16] MEDS ORDERED: CEFTRIAXONE 1 GM/50 ML BAG ONE (17:45)
[2019-03-16 17:46] LABS: PHOSPHOROUS 2.9 mg/dL (2.5-4.9)
[2019-03-16 17:52] LABS: ANISOCYTOSIS 1+; OVALOCYTE FEW; TEAR DROP CELLS FEW
[2019-03-16 17:53] LABS: PLATELET ESTIMATE ADEQUATE
--- NOTE | 2019-03-16 21:27 | HP ---
Admitting History and Physical - Primary Care Physician PCP: Sabi Jordan S - Admission Chief Complaint: weakness History of Present Illness: The patient is a 73-year-old male with a past medical history significant for CLL, CHF, HTN, HBV, who presents to the emergency department for agitation and "nerves". The patient reports shes here for nerves, however her ex whois at bedside reports, the patient has been agitated at home and was found outside in the cold without a coat today. The patient reports she lives by herself. Denies chest pain, shortness of breath, or abdominal pain. History Source: Patient, Family Member Limitations to Obtaining History: No Limitations - Past Medical History [employer]ON CLEANER: Yes: Dementia Cardiovascular: Yes: HTN Gastrointestinal: Yes: Diverticulosis (on CT scan), GI Bleed (02/13 post- sphincterotomy bleed) Hepatobiliary: Yes: Cholelithiasis, Choledocholithiasis (with cholangitis 02/13 requring ERCP & sphincterotomy complicated by a post-sphincterotomy bleed ) Renal/: Yes: Renal Calculi Heme/Onc: Yes: Anemia, Cancer (CLL- had bone marrow at [facility] recently), Other ( thalassemia) Psych: Yes: Anxiety Musculoskeletal: Yes: Chronic low back pain - Past Surgical History Past Surgical History: Yes: Tonsillectomy, Upper Endoscopy - Smoking History Smoking history: Never smoked Have you smoked in the past 12 months: No Aproximately how many cigarettes per day: 0 - Alcohol/Substance Use Hx Alcohol Use: No History of Substance Use: reports: None - Social History Usual Living Arrangement: Yes: Alone ADL: Independent 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 of Recent Travel: No Home Medications - Allergies Allergies/Adverse Reactions: Allergies Allergy/AdvReac Type Severity Reaction Status Date / Time vancomycin AdvReac Verified 03/16/19 14:13 - Home Medications Home Medications: Ambulatory Orders Pantoprazole Sodium [Protonix -] 20 mg PO DAILY 10/08/18 Lamivudine [Lamivudine Hbv] 100 mg PO DAILY 11/01/18 Alprazolam 0.25 mg PO HS PRN 03/16/19 Cyclosporine 100 mg PO DAILY 03/16/19 Quetiapine Fumarate "Xr" [Seroquel Xr -] 50 mg PO HS 03/16/19 Family Medical History Family History: Unremarkable Review of Systems - Review of Systems Constitutional: denies: Chills, Fever HENT: denies: Difficult Swallowing, Ear Discharge Neck: denies: Decreased ROM, Stiffness Cardiovascular: denies: Chest Pain, Palpitations, Shortness of Breath Respiratory: denies: Cough, SOB Gastrointestinal: denies: Abdominal Pain, Vomiting Genitourinary: denies: Discharge, Dysuria, Flank Pain Musculoskeletal: denies: Back Pain Neurological: reports: Confusion. denies: Change in LOC, Change in Speech Hematology/Lymphatic: denies: Easily Bruised, Excessive Bleeding Psychiatric: reports: Anxiety. denies: Altered Sleep Pattern, Depression Physical Examination Vital Signs: Vital Signs Temperature 98.5 F 03/16/19 14:08 Pulse Rate 80 03/16/19 14:08 Respiratory Rate 18 03/16/19 14:08 Blood Pressure 103/59 L 03/16/19 14:08 O2 Sat by Pulse Oximetry (%) 98 03/16/19 14:08 Constitutional: Yes: No Distress, Anxious Eyes: Yes: Conjunctiva Clear HENT: Yes: Atraumatic Neck: Yes: Supple Cardiovascular: Yes: Regular Rate and Rhythm Respiratory: Yes: CTA Bilaterally Gastrointestinal: Yes: Soft. No: Tenderness Renal/: No: Hematuria Musculoskeletal: No: Joint Stiffness, Joint Swelling Extremities: No: Cold, Cool Edema: No Integumentary: No: Rash, Venous Stasis Changes Neurological: Yes: Alert ...Motor Strength: WNL Psychiatric: Yes: Alert. No: Agitated Labs: CBC, BMP 03/16/19 15:00 03/16/19 15:00 Imaging - Results Chest X-ray: Report Reviewed Other: Report Reviewed Assessment/Plan The patient is a 73-year-old male with a past medical history significant for CLL, CHF, HTN, HBV, who presents to the emergency department for agitation and "nerves". The patient reports shes here for nerves, however her ex- who is at bedside reports, the patient has been agitated at home and was found outside in the cold without a coat today. The patient reports she lives by herself. Denies chest pain, shortness of breath, or abdominal pain. anemia CLL with acute transformation further management per ONC transfuse PRBC d/w pt and left message for daughter falls pfx f/u labs d pt and staff
[2019-03-16] MEDS ORDERED: QUEtiapine FUMARATE 25 MG TABLET (FP) ONE (22:23)
[2019-03-17 06:08] LABS: BASO % 0.4 % (0-2.0); EOS % 1.6 % (0-4.5); LYMPH % 38.3 % (8-40); MCH 27.6 pg (25.7-33.7); MCHC 33.9 g/dl (32.0-36.0); MEAN CELL VOLUME 81.5 fl (80-96); MEAN PLT VOLUME 7.6 fl (7.5-11.1); NEUT % 50.7 % (42.8-82.8); PLATELET COUNT 147 K/MM3 (134-434); RBC 2.45 M/mm3 (3.60-5.2); RDW 16.8 % (11.6-15.6); WHITE BLOOD COUNT 4.1 K/mm3 (4.0-10.0)
--- NOTE | 2019-03-17 06:14 | PN ---
Progress Note, Physician Chief Complaint: in bed nad no c/o did not receive PRBC yet per ER staff d/w nurse to give PRBC today Hg 6.8 - I called daughter left message - Current Medication List Current Medications: Active Medications Cyclosporine (Sandimmune) 100 mg PO DAILY RYAN Lamivudine (Epivir Oral Solution -) 100 mg PO DAILY RYAN Pantoprazole Sodium (Protonix -) 20 mg PO DAILY RYAN Quetiapine Fumarate (Seroquel Xr -) 50 mg PO HS [facility] Last Admin: 03/16/19 22:26 Dose: 50 mg - Objective Vital Signs: Vital Signs Temperature 98.5 F 03/16/19 14:08 Pulse Rate 85 03/16/19 23:45 Respiratory Rate 18 03/17/19 02:14 Blood Pressure 100/52 L 03/16/19 23:45 O2 Sat by Pulse Oximetry (%) 95 03/16/19 23:45 Constitutional: Yes: No Distress, Anxious Eyes: Yes: Conjunctiva Clear HENT: Yes: Atraumatic Neck: Yes: Supple Cardiovascular: Yes: Regular Rate and Rhythm Respiratory: Yes: CTA Bilaterally Gastrointestinal: Yes: Soft. No: Tenderness Genitourinary: No: Hematuria Musculoskeletal: No: Joint Stiffness, Joint Swelling Extremities: No: Cold, Cool, Cyanosis Edema: No Integumentary: No: Rash, Venous Stasis Changes Neurological: Yes: Alert ...Motor Strength: WNL Psychiatric: Yes: Alert. No: Agitated, Suicidal Ideation - ....Imaging Other: Report Reviewed Assessment/Plan The patient is a 73-year-old male with a past medical history significant for CLL, CHF, HTN, HBV, who presents to the emergency department for agitation and "nerves". The patient reports shes here for nerves, however her ex- who is at bedside reports, the patient has been agitated at home and was found outside in the cold without a coat today. The patient reports she lives by herself. Denies chest pain, shortness of breath, or abdominal pain. anemia CLL with acute transformation UA UCx r/o UTI further management per ONC transfuse PRBC d/w pt, left message for daughter falls pfx f/u labs d pt and staff
[2019-03-17 06:31] LABS: BLOOD UREA NITROGEN 26.4 mg/dL (7-18); CREATININE 1.6 mg/dL (0.55-1.3)
[2019-03-17 06:32] LABS: CALCIUM 8.8 mg/dL (8.5-10.1); POTASSIUM 3.5 mmol/L (3.5-5.1)
[2019-03-17 07:24] LABS: HEMOGLOBIN 6.8 GM/dL (10.7-15.3)
[2019-03-17] MEDS ORDERED: LAMIVUDINE 100 MG PO SCH (10:00)
[2019-03-17] MEDS: PANTOPRAZOLE 20 MG TABLET (FP) PO SCH (11:28)
[2019-03-17] MEDS: lamiVUDine 10 MG/1 ML BULK BOTTLE PO SCH (11:28)
[2019-03-17 11:56] LABS: ANISOCYTOSIS 1+; PLATELET ESTIMATE DECREASED
[2019-03-17] MEDS ORDERED: CEFTRIAXONE 1 GM in DEXTROSE 5%-WATER - 50 ML IVPB SCH (13:45)
[2019-03-17] MEDS ORDERED: CEFTRIAXONE 1 GM/50 ML BAG ONE (14:19)
--- NOTE | 2019-03-17 19:36 | PN ---
Progress Note (short form) - Note Progress Note: Patient seen and examined CLL initially treated with Rituxin therapy. Developed pancytopenia and repeat marrow with MDS Begun on cyclosporine 100 mg daypast week Enters with anemia - Last Vital Signs Temp Pulse Resp BP Pulse Ox 99.3 F 76 18 130/58 L 99 03/17/19 17:00 03/17/19 12:00 03/17/19 17:00 03/17/19 17:00 03/17/19 17:00 HEENT: FELIBERTO, EOM Intact Oropharynx: No thrush, No mucositis Neck: Supple Nodes: Without adenopathy Breasts: Without masses Cor: RSR, No murmurs, No gallops Lungs: Clear to P&A Abd: Soft, Normal bowel sounds, No organomegaly Ext:No significant edema Skin: No rashes, Integument intact CBC, BMP 03/17/19 05:35 03/17/19 05:35 Current Medications Generic Name Dose Route Start Last Admin Trade Name Freq PRN Reason Stop Dose Admin Cyclosporine 100 mg 03/17/19 10:00 03/17/19 11:29 Sandimmune PO 100 mg DAILY RYAN Administration Ceftriaxone Sodium 1 gm/ 50 mls @ 100 mls/hr 03/17/19 13:45 03/17/19 14:23 Dextrose IVPB 100 mls/hr DAILY RYAN Administration Lamivudine 100 mg 03/17/19 10:00 03/17/19 11:28 Epivir Oral Solution - PO 100 mg DAILY RYAN Administration Pantoprazole Sodium 20 mg 03/17/19 10:00 03/17/19 11:28 Protonix - PO 20 mg DAILY RYAN Administration Quetiapine Fumarate 50 mg 03/16/19 22:00 03/16/19 22:26 Seroquel Xr - PO 50 mg HS RYAN Administration Impression: MDS Hx CLL Hx of Rituxin therapy --weekly x4 . Repeat Rituxin monthly x 2 in past Anemia Suggest - transfuse 2 packed cells Check stool guaic . Consider procrit as outpatient for MDS.
[2019-03-17] MEDS ORDERED: PNEUMOC 13-VAL CONJ-DIP CRM/PF 0.5 ML DISP.SYRIN IM ONE (23:12)
[2019-03-18 06:23] LABS: EOS % 1.8 % (0-4.5); HEMATOCRIT 27.7 % (32.4-45.2); HEMOGLOBIN 9.4 GM/dL (10.7-15.3); LYMPH % 14.9 % (8-40); MCH 28.4 pg (25.7-33.7); MCHC 33.9 g/dl (32.0-36.0); MEAN PLT VOLUME 7.2 fl (7.5-11.1); MONO % 22.1 % (3.8-10.2); NEUT % 61.2 % (42.8-82.8); PLATELET COUNT 135 K/MM3 (134-434); RDW 16.1 % (11.6-15.6); WHITE BLOOD COUNT 4.9 K/mm3 (4.0-10.0)
[2019-03-18 06:47] LABS: ALBUMIN 2.8 g/dl (3.4-5.0); BLOOD UREA NITROGEN 18.8 mg/dL (7-18); CALCIUM 8.6 mg/dL (8.5-10.1); CREATININE 1.5 mg/dL (0.55-1.3); POTASSIUM 3.7 mmol/L (3.5-5.1); TOT PROT 5.3 g/dl (6.4-8.2)
[2019-03-18] MEDS ORDERED: PT OWN MED DRAWER 7, Y5N ONE ×2 (09:33→21:38)
[2019-03-18] MEDS ORDERED: DEXTROSE 5%-WATER - 50 ML IVPB ONE (09:36)
[2019-03-18] MEDS ORDERED: cefTRIAXone SODIUM 1 GM VIAL ONE (09:36)
[2019-03-18] MEDS: CEFTRIAXONE 1 GM in DEXTROSE 5%-WATER - 50 ML IVPB SCH (09:47)
[2019-03-18] MEDS: lamiVUDine 10 MG/1 ML BULK BOTTLE PO SCH (09:49)
[2019-03-18] MEDS: PANTOPRAZOLE 20 MG TABLET (FP) PO SCH (09:49)
[2019-03-18] MEDS ORDERED: CEFTRIAXONE 1 GM in DEXTROSE 5%-WATER - 50 ML IVPB SCH (10:00)
[2019-03-18 10:49] LABS: ANISOCYTOSIS 1+; MACROCYTOSIS 0; PLATELET ESTIMATE DECREASED
--- NOTE | 2019-03-18 13:14 | PN ---
Progress Note, Physician History of Present Illness: Pt w/o fever, cough, SOB, CP, and pain - Current Medication List Current Medications: Active Medications Cyclosporine (Sandimmune) 100 mg PO DAILY [facility] Last Admin: 03/18/19 09:49 Dose: 100 mg Ceftriaxone Sodium 1 gm/ (Dextrose) 50 mls @ 100 mls/hr IVPB DAILY [facility] Last Admin: 03/18/19 09:47 Dose: 100 mls/hr Lamivudine (Epivir Oral Solution -) 100 mg PO DAILY [facility] Last Admin: 03/18/19 09:49 Dose: 100 mg Pantoprazole Sodium (Protonix -) 20 mg PO DAILY [facility] Last Admin: 03/18/19 09:49 Dose: 20 mg Quetiapine Fumarate (Seroquel Xr -) 50 mg PO HS [facility] Last Admin: 03/17/19 23:59 Dose: Not Given - Objective Vital Signs: Vital Signs Temperature 98 F 03/18/19 10:04 Pulse Rate 71 03/18/19 10:04 Respiratory Rate 18 03/18/19 10:04 Blood Pressure 139/69 03/18/19 10:04 O2 Sat by Pulse Oximetry (%) 99 03/18/19 09:00 Constitutional: Yes: No Distress, Calm Cardiovascular: Yes: Regular Rate and Rhythm, S1, S2 Respiratory: Yes: Regular, CTA Bilaterally. No: Rales Gastrointestinal: Yes: Normal Bowel Sounds, Soft, Tenderness Edema: No Neurological: Yes: Alert, Oriented (person) Labs: CBC, BMP 03/18/19 05:35 03/18/19 05:35 Problem List - Problems (1) UTI (urinary tract infection) Assessment/Plan: elise ABtx Code(s): N39.0 - URINARY TRACT INFECTION, SITE NOT SPECIFIED Qualifiers: Urinary tract infection type: site unspecified Hematuria presence: without hematuria Qualified Code(s): N39.0 - Urinary tract infection, site not specified (2) Anemia Code(s): D64.9 - ANEMIA, UNSPECIFIED Qualifiers: Anemia type: unspecified type Qualified Code(s): D64.9 - Anemia, unspecified (3) Altered mental state Code(s): R41.82 - ALTERED MENTAL STATUS, UNSPECIFIED Qualifiers: Altered mental status type: unspecified Qualified Code(s): R41.82 - Altered mental status, unspecified (4) CLL (chronic lymphocytic leukemia) Code(s): C91.10 - CHRONIC LYMPHOCYTIC LEUK OF B-CELL TYPE NOT ACHIEVE REMIS (5) HTN (hypertension) Code(s): I10 - ESSENTIAL (PRIMARY) HYPERTENSION (6) CHF (congestive heart failure) Code(s): I50.9 - HEART FAILURE, UNSPECIFIED (7) CKD (chronic kidney disease) Code(s): N18.9 - CHRONIC KIDNEY DISEASE, UNSPECIFIED (8) CLL (chronic lymphocytic leukemia) Code(s): C91.10 - CHRONIC LYMPHOCYTIC LEUK OF B-CELL TYPE NOT ACHIEVE REMIS Assessment/Plan s/p 2 units af PRBC Continu ABTX AM labs
--- NOTE | 2019-03-18 18:48 | PN ---
Progress Note, Physician Chief Complaint: anemia History of Present Illness: Feels well -- less weakness post transfusion. - Current Medication List Current Medications: Active Medications Cyclosporine (Sandimmune) 100 mg PO DAILY [facility] Last Admin: 03/18/19 09:49 Dose: 100 mg Ceftriaxone Sodium 1 gm/ (Dextrose) 50 mls @ 100 mls/hr IVPB DAILY [facility] Last Admin: 03/18/19 09:47 Dose: 100 mls/hr Lamivudine (Epivir Oral Solution -) 100 mg PO DAILY [facility] Last Admin: 03/18/19 09:49 Dose: 100 mg Pantoprazole Sodium (Protonix -) 20 mg PO DAILY [facility] Last Admin: 03/18/19 09:49 Dose: 20 mg Quetiapine Fumarate (Seroquel Xr -) 50 mg PO HS [facility] Last Admin: 03/17/19 23:59 Dose: Not Given - Objective Vital Signs: Vital Signs Temperature 98.8 F 03/18/19 13:00 Pulse Rate 83 03/18/19 13:00 Respiratory Rate 16 03/18/19 13:00 Blood Pressure 150/74 03/18/19 13:00 O2 Sat by Pulse Oximetry (%) 99 03/18/19 09:00 Constitutional: Yes: No Distress Eyes: Yes: Conjunctiva Clear Cardiovascular: Yes: Regular Rate and Rhythm Respiratory: Yes: Regular, CTA Bilaterally Edema: No Labs: CBC, BMP 03/18/19 05:35 03/18/19 05:35 Assessment/Plan 73F with CLL s/p Rituxan and now with newly diagnosed MDS, on cyclosporin since last week, admitted with anemia (Hgb 6.8). Responded well to blood transfusion with Hgb 9.4 today. Rest of counts ok.
[2019-03-19 06:55] LABS: HEMATOCRIT 29.8 % (32.4-45.2); MCH 28.3 pg (25.7-33.7); MCHC 33.7 g/dl (32.0-36.0); MEAN CELL VOLUME 83.8 fl (80-96); MEAN PLT VOLUME 6.4 fl (7.5-11.1); PLATELET COUNT 133 K/MM3 (134-434); RBC 3.55 M/mm3 (3.60-5.2); RDW 16.4 % (11.6-15.6); WHITE BLOOD COUNT 5.3 K/mm3 (4.0-10.0)
[2019-03-19 07:23] LABS: ALBUMIN 3.2 g/dl (3.4-5.0); BILIRUBIN,TOTAL 0.7 mg/dL (0.2-1); CALCIUM 9.3 mg/dL (8.5-10.1); CREATININE 1.4 mg/dL (0.55-1.3); POTASSIUM 3.9 mmol/L (3.5-5.1); TOT PROT 6.2 g/dl (6.4-8.2)
[2019-03-19] MEDS ORDERED: cefTRIAXone SODIUM 1 GM VIAL ONE (10:07)
[2019-03-19] MEDS ORDERED: PT OWN MED DRAWER 7, Y5N ONE ×2 (10:07→20:57)
[2019-03-19] MEDS ORDERED: DEXTROSE 5%-WATER - 50 ML IVPB ONE (10:07)
[2019-03-19] MEDS: lamiVUDine 10 MG/1 ML BULK BOTTLE PO SCH (10:14)
[2019-03-19] MEDS: CEFTRIAXONE 1 GM in DEXTROSE 5%-WATER - 50 ML IVPB SCH (10:17)
[2019-03-19] MEDS: PANTOPRAZOLE 20 MG TABLET (FP) PO SCH (10:23)
--- NOTE | 2019-03-19 12:19 | PN ---
Progress Note, Physician History of Present Illness: Pt w/o fever, cough, SOB, CP, abdominal pain. Pt is c/o feeling anxious occasionally. - Current Medication List Current Medications: Active Medications Cyclosporine (Sandimmune) 100 mg PO DAILY [facility] Last Admin: 03/19/19 10:14 Dose: 100 mg Ceftriaxone Sodium 1 gm/ (Dextrose) 50 mls @ 100 mls/hr IVPB DAILY [facility] Last Admin: 03/19/19 10:17 Dose: 100 mls/hr Lamivudine (Epivir Oral Solution -) 100 mg PO DAILY [facility] Last Admin: 03/19/19 10:14 Dose: 100 mg Pantoprazole Sodium (Protonix -) 20 mg PO DAILY [facility] Last Admin: 03/19/19 10:23 Dose: 20 mg Quetiapine Fumarate (Seroquel Xr -) 50 mg PO HS [facility] Last Admin: 03/18/19 21:59 Dose: 50 mg - Objective Vital Signs: Vital Signs Temperature 97.4 F L 03/19/19 05:52 Pulse Rate 77 03/19/19 05:52 Respiratory Rate 18 03/19/19 05:52 Blood Pressure 133/69 03/19/19 05:52 O2 Sat by Pulse Oximetry (%) 98 03/18/19 20:14 Constitutional: Yes: No Distress, Calm Cardiovascular: Yes: Regular Rate and Rhythm, S1, S2 Respiratory: Yes: Regular, CTA Bilaterally. No: Rales Gastrointestinal: Yes: Normal Bowel Sounds, Soft. No: Tenderness Edema: No Neurological: Yes: Alert, Oriented Labs: CBC, BMP 03/19/19 05:55 03/19/19 05:55 Problem List - Problems (1) UTI (urinary tract infection) Code(s): N39.0 - URINARY TRACT INFECTION, SITE NOT SPECIFIED Qualifiers: Urinary tract infection type: site unspecified Hematuria presence: without hematuria Qualified Code(s): N39.0 - Urinary tract infection, site not specified (2) Anemia Code(s): D64.9 - ANEMIA, UNSPECIFIED Qualifiers: Anemia type: unspecified type Qualified Code(s): D64.9 - Anemia, unspecified (3) Altered mental state Code(s): R41.82 - ALTERED MENTAL STATUS, UNSPECIFIED Qualifiers: Altered mental status type: unspecified Qualified Code(s): R41.82 - Altered mental status, unspecified (4) CLL (chronic lymphocytic leukemia) Code(s): C91.10 - CHRONIC LYMPHOCYTIC LEUK OF B-CELL TYPE NOT ACHIEVE REMIS (5) HTN (hypertension) Code(s): I10 - ESSENTIAL (PRIMARY) HYPERTENSION (6) CHF (congestive heart failure) Code(s): I50.9 - HEART FAILURE, UNSPECIFIED (7) CKD (chronic kidney disease) Code(s): N18.9 - CHRONIC KIDNEY DISEASE, UNSPECIFIED (8) CLL (chronic lymphocytic leukemia) Code(s): C91.10 - CHRONIC LYMPHOCYTIC LEUK OF B-CELL TYPE NOT ACHIEVE REMIS (9) Anxiety disorder Code(s): F41.9 - ANXIETY DISORDER, UNSPECIFIED Assessment/Plan s/p 2 units af PRBC, H/H is stable Continu Abtx Xanax PRN for anxiety AM labs
[2019-03-19 16:55] VITALS: BMI 22.3
--- NOTE | 2019-03-19 19:36 | PN ---
Progress Note, Physician History of Present Illness: Feels well. No complaints - Current Medication List Current Medications: Active Medications Alprazolam (Xanax -) 0.25 mg PO Q8H PRN PRN Reason: ANXIETY Cyclosporine (Sandimmune) 100 mg PO DAILY [facility] Last Admin: 03/19/19 10:14 Dose: 100 mg Ceftriaxone Sodium 1 gm/ (Dextrose) 50 mls @ 100 mls/hr IVPB DAILY [facility] Last Admin: 03/19/19 10:17 Dose: 100 mls/hr Lamivudine (Epivir Oral Solution -) 100 mg PO DAILY [facility] Last Admin: 03/19/19 10:14 Dose: 100 mg Pantoprazole Sodium (Protonix -) 20 mg PO DAILY [facility] Last Admin: 03/19/19 10:23 Dose: 20 mg Quetiapine Fumarate (Seroquel Xr -) 50 mg PO HS [facility] Last Admin: 03/18/19 21:59 Dose: 50 mg - Objective Vital Signs: Vital Signs Temperature 97.5 F L 03/19/19 17:33 Pulse Rate 89 03/19/19 17:33 Respiratory Rate 18 03/19/19 17:33 Blood Pressure 149/73 03/19/19 17:33 O2 Sat by Pulse Oximetry (%) 99 03/19/19 09:00 Constitutional: Yes: No Distress, Calm Eyes: Yes: Conjunctiva Clear Respiratory: Yes: Regular, CTA Bilaterally Gastrointestinal: Yes: Soft. No: Distention, Tenderness Edema: No Labs: CBC, BMP 03/19/19 05:55 03/19/19 05:55 Assessment/Plan 73F with CLL s/p Rituxan and now with newly diagnosed MDS, on cyclosporin since last week, admitted with anemia (Hgb 6.8). Responded well to blood transfusion. Hgb 10 today. Rest of counts ok. Daughter is concerned about decline in mental status -- would consider neurology (outpatient?) [place].
[2019-03-20] MEDS ORDERED: DEXTROSE 5%-WATER - 50 ML IVPB ONE (10:26)
[2019-03-20] MEDS ORDERED: cefTRIAXone SODIUM 1 GM VIAL ONE (10:26)
[2019-03-20] MEDS ORDERED: PT OWN MED DRAWER 7, Y5N ONE ×2 (10:26→22:40)
[2019-03-20] MEDS: PANTOPRAZOLE 20 MG TABLET (FP) PO SCH (10:27)
[2019-03-20] MEDS: CEFTRIAXONE 1 GM in DEXTROSE 5%-WATER - 50 ML IVPB SCH (10:27)
[2019-03-20] MEDS: lamiVUDine 10 MG/1 ML BULK BOTTLE PO SCH (10:27)
[2019-03-20] MEDS: ALPRAZolam 0.25 MG TABLET PO PRN ×2 (14:54→22:48)
--- NOTE | 2019-03-20 15:42 | PN ---
Progress Note, Physician History of Present Illness: Pt w/o fever, cough, SOB, CP, abdominal pain, burning with urination. - Current Medication List Current Medications: Active Medications Alprazolam (Xanax -) 0.25 mg PO Q8H PRN PRN Reason: ANXIETY Last Admin: 03/20/19 14:54 Dose: 0.25 mg Cyclosporine (Sandimmune) 100 mg PO DAILY [facility] Last Admin: 03/20/19 10:28 Dose: 100 mg Ceftriaxone Sodium 1 gm/ (Dextrose) 50 mls @ 100 mls/hr IVPB DAILY [facility] Last Admin: 03/20/19 10:27 Dose: 100 mls/hr Lamivudine (Epivir Oral Solution -) 100 mg PO DAILY [facility] Last Admin: 03/20/19 10:27 Dose: 100 mg Pantoprazole Sodium (Protonix -) 20 mg PO DAILY [facility] Last Admin: 03/20/19 10:27 Dose: 20 mg Quetiapine Fumarate (Seroquel Xr -) 50 mg PO HS [facility] Last Admin: 03/19/19 21:16 Dose: 50 mg - Objective Vital Signs: Vital Signs Temperature 98.3 F 03/20/19 14:13 Pulse Rate 76 03/20/19 14:13 Respiratory Rate 18 03/20/19 14:13 Blood Pressure 125/59 L 03/20/19 14:13 O2 Sat by Pulse Oximetry (%) 99 03/20/19 10:00 Constitutional: Yes: No Distress, Calm Cardiovascular: Yes: Regular Rate and Rhythm, S1, S2 Respiratory: Yes: Regular, CTA Bilaterally. No: Rales Gastrointestinal: Yes: Normal Bowel Sounds, Soft. No: Tenderness Edema: No Neurological: Yes: Alert, Oriented Labs: CBC, BMP 03/19/19 05:55 03/19/19 05:55 Problem List - Problems (1) UTI (urinary tract infection) Code(s): N39.0 - URINARY TRACT INFECTION, SITE NOT SPECIFIED Qualifiers: Urinary tract infection type: site unspecified Hematuria presence: without hematuria Qualified Code(s): N39.0 - Urinary tract infection, site not specified (2) Anemia Code(s): D64.9 - ANEMIA, UNSPECIFIED Qualifiers: Anemia type: unspecified type Qualified Code(s): D64.9 - Anemia, unspecified (3) Altered mental state Code(s): R41.82 - ALTERED MENTAL STATUS, UNSPECIFIED Qualifiers: Altered mental status type: unspecified Qualified Code(s): R41.82 - Altered mental status, unspecified (4) CLL (chronic lymphocytic leukemia) Code(s): C91.10 - CHRONIC LYMPHOCYTIC LEUK OF B-CELL TYPE NOT ACHIEVE REMIS (5) HTN (hypertension) Code(s): I10 - ESSENTIAL (PRIMARY) HYPERTENSION (6) CHF (congestive heart failure) Code(s): I50.9 - HEART FAILURE, UNSPECIFIED (7) CKD (chronic kidney disease) Code(s): N18.9 - CHRONIC KIDNEY DISEASE, UNSPECIFIED (8) CLL (chronic lymphocytic leukemia) Code(s): C91.10 - CHRONIC LYMPHOCYTIC LEUK OF B-CELL TYPE NOT ACHIEVE REMIS (9) Anxiety disorder Code(s): F41.9 - ANXIETY DISORDER, UNSPECIFIED (10) MDS (myelodysplastic syndrome) Code(s): D46.9 - MYELODYSPLASTIC SYNDROME, UNSPECIFIED Assessment/Plan s/p 2 units af PRBC, H/H is stable Continue Abtx Xanax PRN for anxiety AM labs
[2019-03-20 17:22] LABS: HEMATOCRIT 29.5 % (32.4-45.2); HEMOGLOBIN 9.8 GM/dL (10.7-15.3); MCH 27.9 pg (25.7-33.7); MEAN CELL VOLUME 84.6 fl (80-96); MEAN PLT VOLUME 6.9 fl (7.5-11.1); PLATELET COUNT 133 K/MM3 (134-434); RBC 3.49 M/mm3 (3.60-5.2); RDW 16.6 % (11.6-15.6); WHITE BLOOD COUNT 4.2 K/mm3 (4.0-10.0)
[2019-03-20 17:48] LABS: BLOOD UREA NITROGEN 20.6 mg/dL (7-18); CALCIUM 8.8 mg/dL (8.5-10.1); CREATININE 1.2 mg/dL (0.55-1.3); POTASSIUM 3.8 mmol/L (3.5-5.1)
--- NOTE | 2019-03-20 21:04 | PN ---
Progress Note (short form) - Note Progress Note: Patient seen and examined Feels OK No complaints Last Vital Signs Temp Pulse Resp BP Pulse Ox 98.2 F 72 16 106/65 99 03/20/19 21:00 03/20/19 21:00 03/20/19 21:00 03/20/19 21:00 03/20/19 21:00 Cor: RSR, No murmurs, No gallops Lungs: Clear to P&A Abd: Soft, Normal bowel sounds, No organomegaly Ext:No significant edema Labs/Meds reviewed A/P 73F with CLL s/p Rituxan and now with newly diagnosed MDS, on cyclosporine since last week, admitted with anemia (Hgb 6.8). Responded well to blood transfusion. will request ID consult regarding --? UTI ---on rocephin ? adequate coverage consider neuro eval for worsening cognitive impairment d/c planning per ID recs
[2019-03-21] MEDS ORDERED: PT OWN MED DRAWER 7, Y5N ONE (10:16)
[2019-03-21] MEDS ORDERED: cefTRIAXone SODIUM 1 GM VIAL ONE (10:16)
[2019-03-21] MEDS ORDERED: DEXTROSE 5%-WATER - 50 ML IVPB ONE (10:16)
[2019-03-21] MEDS: CEFTRIAXONE 1 GM in DEXTROSE 5%-WATER - 50 ML IVPB SCH (10:32)
[2019-03-21] MEDS: lamiVUDine 10 MG/1 ML BULK BOTTLE PO SCH (10:32)
[2019-03-21] MEDS: PANTOPRAZOLE 20 MG TABLET (FP) PO SCH (10:32)
--- NOTE | 2019-03-21 13:22 | PN ---
Physical Exam: SUBJECTIVE: Patient seen and examined sitting at bed side having lunch , deneis any fever , chills, N/V/D/C tolerating diet, lbreathing better . Aox2 less confused OBJECTIVE: Vital Signs Period Temp Pulse Resp BP Sys/Borjas Pulse Ox Last 24 Hr 98.0 F-98.3 F 72-97 16-18 106-125/53-65 99 GENERAL: AAOx2 person and location but no time HEAD: Normal with no signs of trauma. EYES: PERRL, extraocular movements intact, ENT: moist mucous membranes. NECK: supple. LUNGS: Breath sounds equal, clear to auscultation bilaterally, no wheezes, no crackles, no accessory muscle use. HEART: Regular rate and rhythm, S1, S2 without murmur, rub or gallop. ABDOMEN: Soft, nontender, nondistended, normoactive bowel sounds, EXTREMITIES: 2+ pulses, warm, well-perfused, no edema. LLE erythema NEUROLOGICAL: Cranial nerves II through XII grossly intact. Normal speech, SKIN: Warm, dry, LLE erythema Laboratory Results - last 24 hr 03/16/19 03/20/19 03/20/19 18:17 17:00 17:00 WBC 4.2 RBC 3.49 L Hgb 9.8 L Hct 29.5 L MCV 84.6 MCH 27.9 MCHC 33.0 RDW 16.6 H Plt Count 133 L MPV 6.9 L Sodium 141 Potassium 3.8 Chloride 105 Carbon Dioxide 29 Anion Gap 6 L BUN 20.6 H Creatinine 1.2 Est GFR (CKD-EPI)AfAm 51.92 Est GFR (CKD-EPI)NonAf 44.80 Random Glucose 109 H Calcium 8.8 Blood Type O POSITIVE Antibody Screen Negative Crossmatch See Detail Active Medications Generic Name Dose Route Start Last Admin Trade Name Freq PRN Reason Stop Dose Admin Alprazolam 0.25 mg 03/19/19 12:40 03/20/19 22:48 Xanax - PO 0.25 mg Q8H PRN Administration ANXIETY Cyclosporine 100 mg 03/17/19 10:00 03/21/19 10:32 Sandimmune PO 100 mg DAILY RYAN Administration Ceftriaxone Sodium 1 gm/ 50 mls @ 100 mls/hr 03/18/19 09:34 03/21/19 10:32 Dextrose IVPB 100 mls/hr DAILY RYAN Administration Lamivudine 100 mg 03/17/19 10:00 03/21/19 10:32 Epivir Oral Solution - PO 100 mg DAILY RYAN Administration Pantoprazole Sodium 20 mg 03/17/19 10:00 03/21/19 10:32 Protonix - PO 20 mg DAILY RYAN Administration Quetiapine Fumarate 50 mg 03/16/19 22:00 03/20/19 22:47 Seroquel Xr - PO 50 mg HS RYAN Administration CBC, BMP 03/20/19 17:00 03/20/19 17:00 ASSESSMENT/PLAN: 73 year old female with CLL S/P Rituxan newly diagnosed MDS on cyclosporin since alst week , admitted with anemia hgb 6.8 S/P 2 units PRBCS Hgb today 9.8 # CLL # MDS # anemia # thrombocytopenia # HTN # CKD # Anxiety dosorder #CHF UTI ID cosnulted started on ceftriaxone # AMS improving could be delirium secondary to infection consider neuro consult for worsening cognitive impairment d/c planning per ID recs ATTENDING PHYSICIAN STATEMENT I saw and evaluated the patient. I reviewed the resident's note and discussed the case with the resident. I agree with the resident's findings and plan as documented. SUBJECTIVE: OBJECTIVE: ASSESSMENT AND PLAN:
--- NOTE | 2019-03-21 13:42 | PN ---
Progress Note, Physician History of Present Illness: Pt w/o fever, cough, SOB, CP, abdominal pain, burning with urination. Pt tried to walk uot the unit - Current Medication List Current Medications: Active Medications Alprazolam (Xanax -) 0.25 mg PO Q8H PRN PRN Reason: ANXIETY Last Admin: 03/20/19 22:48 Dose: 0.25 mg Cyclosporine (Sandimmune) 100 mg PO DAILY [facility] Last Admin: 03/21/19 10:32 Dose: 100 mg Ceftriaxone Sodium 1 gm/ (Dextrose) 50 mls @ 100 mls/hr IVPB DAILY [facility] Last Admin: 03/21/19 10:32 Dose: 100 mls/hr Lamivudine (Epivir Oral Solution -) 100 mg PO DAILY [facility] Last Admin: 03/21/19 10:32 Dose: 100 mg Pantoprazole Sodium (Protonix -) 20 mg PO DAILY [facility] Last Admin: 03/21/19 10:32 Dose: 20 mg Quetiapine Fumarate (Seroquel Xr -) 50 mg PO HS [facility] Last Admin: 03/20/19 22:47 Dose: 50 mg - Objective Vital Signs: Vital Signs Temperature 98.1 F 03/21/19 10:00 Pulse Rate 79 03/21/19 10:00 Respiratory Rate 18 03/21/19 10:00 Blood Pressure 116/53 L 03/21/19 10:00 O2 Sat by Pulse Oximetry (%) 99 03/20/19 21:00 Constitutional: Yes: No Distress, Calm Cardiovascular: Yes: Regular Rate and Rhythm, S1, S2 Respiratory: Yes: Regular, CTA Bilaterally. No: Rales Gastrointestinal: Yes: Normal Bowel Sounds, Soft. No: Tenderness Edema: No Labs: CBC, BMP 03/20/19 17:00 03/20/19 17:00 Problem List - Problems (1) UTI (urinary tract infection) Code(s): N39.0 - URINARY TRACT INFECTION, SITE NOT SPECIFIED Qualifiers: Urinary tract infection type: site unspecified Hematuria presence: without hematuria Qualified Code(s): N39.0 - Urinary tract infection, site not specified (2) Anemia Code(s): D64.9 - ANEMIA, UNSPECIFIED Qualifiers: Anemia type: unspecified type Qualified Code(s): D64.9 - Anemia, unspecified (3) Altered mental state Code(s): R41.82 - ALTERED MENTAL STATUS, UNSPECIFIED Qualifiers: Altered mental status type: unspecified Qualified Code(s): R41.82 - Altered mental status, unspecified (4) CLL (chronic lymphocytic leukemia) Code(s): C91.10 - CHRONIC LYMPHOCYTIC LEUK OF B-CELL TYPE NOT ACHIEVE REMIS (5) HTN (hypertension) Code(s): I10 - ESSENTIAL (PRIMARY) HYPERTENSION (6) CHF (congestive heart failure) Code(s): I50.9 - HEART FAILURE, UNSPECIFIED (7) CKD (chronic kidney disease) Code(s): N18.9 - CHRONIC KIDNEY DISEASE, UNSPECIFIED (8) CLL (chronic lymphocytic leukemia) Code(s): C91.10 - CHRONIC LYMPHOCYTIC LEUK OF B-CELL TYPE NOT ACHIEVE REMIS (9) Anxiety disorder Code(s): F41.9 - ANXIETY DISORDER, UNSPECIFIED (10) MDS (myelodysplastic syndrome) Code(s): D46.9 - MYELODYSPLASTIC SYNDROME, UNSPECIFIED (11) Agitation Code(s): R45.1 - RESTLESSNESS AND AGITATION Assessment/Plan s/p 2 units af PRBC, H/H is stable Continue Abtx Xanax PRN for anxiety Psychiatry consult. Pt's care was reviewed with her daughter. AM labs
--- NOTE | 2019-03-21 14:49 | CON.PSY ---
Psychiatry Consult Chief Complaint: 73 char etiennewn to me from previous admissions, admitted with AMS and UTI. seen gor agitation and walking out of the room. Symptoms: reports: Memory Impairment, Restlessness - Previous Psychiatric Treatment Outpatient: None Inpatient: None - Previous Substance Abuse Treatment Outpatient: None Inpatient: None - Current Medications Current Medications: Active Medications Cyclosporine (Sandimmune) 100 mg PO DAILY [facility] Last Admin: 03/21/19 10:32 Dose: 100 mg Ceftriaxone Sodium 1 gm/ (Dextrose) 50 mls @ 100 mls/hr IVPB DAILY [facility] Last Admin: 03/21/19 10:32 Dose: 100 mls/hr Lamivudine (Epivir Oral Solution -) 100 mg PO DAILY [facility] Last Admin: 03/21/19 10:32 Dose: 100 mg Olanzapine (Zyprexa -) 2.5 mg PO HS [facility] Pantoprazole Sodium (Protonix -) 20 mg PO DAILY [facility] Last Admin: 03/21/19 10:32 Dose: 20 mg - Allergies Allergies: Allergies Allergy/AdvReac Type Severity Reaction Status Date / Time vancomycin AdvReac Verified 03/16/19 14:13 - Current Living Status Usual Living Arrangement: With Child - Current Mental Status Evaluation Appearance: Disheveled Attitude: Guarded - Affect Affect: Constrictive Appropriateness: Appropriate to Content - Mood Mood: Irritable - Speech/Language Expressive: Coherent - Psychomotor Activity Psychomotor Activity: Slowed - Thought Process Thought Process: Circumstantial - Thought Content Hallucinations: Absent Delusions: Absent - Self Perception Self Perception: No Impairment - Cognition Attention: Diminished Memory, Immediate Recall: Impaired Memory, Short Term: 2/3 Memory, Remote with Promptin/3 - Concentration Serial Sevens Intact: No Simple Calculations Intact: No - Abstraction Proverb Interpretation: Impaired Judgement: Minimally Impaired - Impulse Control Impulse Control: Minimally Impaired - Suicidal Ideation Suicidal Ideation: No - Homicidal Ideation Homicidal Ideation: No Assessment/Plan 1) d/c seroquel and Xanax. 20 zyprexa2.5 mg po hs
--- NOTE | 2019-03-21 17:10 | PN ---
Progress Note (short form) - Note Progress Note: ID CONSULT DICTATED URINE C/S C/W CONTAMINATION OBSERVE OFF ANTIBIOTICS
--- NOTE | 2019-03-21 18:51 | PN ---
Progress Note (short form) - Note Progress Note: Patient seen and examined Currently not agitated Daughter at bedside Last Vital Signs Temp Pulse Resp BP Pulse Ox 99.1 F 86 16 126/54 L 99 03/21/19 17:45 03/21/19 17:45 03/21/19 17:45 03/21/19 17:45 03/21/19 09:00 HEENT: FELIBERTO, EOM Intact Oropharynx: No thrush, No mucositis Neck: Supple Nodes: Without adenopathy Breasts: Without masses Cor: RSR, No murmurs, No gallops Lungs: Clear to P&A Abd: Soft, Normal bowel sounds, No organomegaly Ext:No significant edema Skin: No rashes, Integument intact CBC, BMP 03/20/19 17:00 03/20/19 17:00 Current Medications Generic Name Dose Route Start Last Admin Trade Name Freq PRN Reason Stop Dose Admin Cyclosporine 100 mg 03/17/19 10:00 03/21/19 10:32 Sandimmune PO 100 mg DAILY RYAN Administration Lamivudine 100 mg 03/17/19 10:00 03/21/19 10:32 Epivir Oral Solution - PO 100 mg DAILY RYAN Administration Olanzapine 2.5 mg 03/21/19 22:00 Zyprexa - PO HS RYAN Pantoprazole Sodium 20 mg 03/17/19 10:00 03/21/19 10:32 Protonix - PO 20 mg DAILY RYAN Administration Impression: Agitation MDS CLL Urine contaminated Plan: when meds adjusted for discharge
[2019-03-21] MEDS ORDERED: OLANZapine 2.5 MG TABLET PO SCH (22:00)
[2019-03-22 06:08] VITALS: PULSE 73
[2019-03-22] MEDS ORDERED: PT OWN MED DRAWER 7, Y5N ONE ×2 (08:28→09:27)
[2019-03-22] MEDS: PANTOPRAZOLE 20 MG TABLET (FP) PO SCH (09:29)
[2019-03-22] MEDS: lamiVUDine 10 MG/1 ML BULK BOTTLE PO SCH (09:29)
[2019-03-22 09:58] VITALS: BP 130/59; TEMP 98.5
--- NOTE | 2019-03-22 11:45 | DS ---
Physical Examination Vital Signs: Vital Signs Temperature 98.5 F 03/22/19 09:58 Pulse Rate 73 03/22/19 09:58 Respiratory Rate 18 03/22/19 09:58 Blood Pressure 130/59 L 03/22/19 09:58 O2 Sat by Pulse Oximetry (%) 97 03/22/19 09:00 Findings/Remarks: Pt w/o fever, chills, CP, cough, SOB, abd pain, pain with urination. Constitutional: Yes: No Distress, Calm Cardiovascular: Yes: Regular Rate and Rhythm, S1, S2 Respiratory: Yes: Regular, CTA Bilaterally. No: Rales Gastrointestinal: Yes: Normal Bowel Sounds, Soft. No: Tenderness Edema: No Neurological: Yes: Alert, Oriented Labs: CBC, BMP 03/20/19 17:00 03/20/19 17:00 Discharge Summary Problems reviewed: Yes Reason For Visit: URINARY TRACT INFECTION, ANEMIA Current Active Problems Agitation (Acute) Altered mental state (Acute) Anemia (Acute) CHF (congestive heart failure) (Acute) CLL (chronic lymphocytic leukemia) (Acute) CLL (chronic lymphocytic leukemia) (Acute) HTN (hypertension) (Acute) MDS (myelodysplastic syndrome) (Acute) UTI (urinary tract infection) (Acute) Procedures: Principal: Head CT scan ( no acute event). CXR Hospital Course: Pt with with known CLL became pancytopenic, developed MDS, presented to hospital with anemia and "nerves". Pt received 2 units of PRBC; pt was noticed to have UTI, started on Ceftriaxone; pt's medication was adjusted, started on Zyprexa. Pt was seen in consult by Heme (Dr Garcia), Psychiatry (Dr. Amor), ID (Dr Kothari). Pt to be DC'e home with office f/u ( pt's care was d/w pt's daughter). Condition: Fair - Instructions Diet, Activity, Other Instructions: To f/u with: Dr. Radha Jordan Disposition: HOME - Home Medications Comprehensive Discharge Medication List: Ambulatory Orders Pantoprazole Sodium [Protonix -] 20 mg PO DAILY 10/08/18 Lamivudine [Lamivudine Hbv] 100 mg PO DAILY 11/01/18 Cyclosporine 100 mg PO DAILY 03/16/19 Olanzapine [Zyprexa -] 2.5 mg PO HS #30 tablet MDD 1 03/22/19
--- NOTE | 2019-03-24 18:57 | CONS ---
DATE OF CONSULTATION: DATE OF DICTATION: 03/21/2019 The patient is a 73-year-old female, who was evaluated for positive urine culture. History obtained from chart as she cannot give a history secondary to dementia. She has a history of CLL and recently diagnosed myelodysplastic syndrome. She was admitted to the hospital with altered mental status. She was noted to be anemic. She was transfused packed red blood cells. Urinalysis showed many white cells. Urine culture grew mixed organisms consistent with contamination. The patient suffers from dementia. She offers no complaints. No reports of high-grade fever, shaking chills, gross or purulent urine. Past medical history positive for CLL, myelodysplastic syndrome, OBS, congestive heart failure, hypertension. Allergies to VANCOMYCIN. Medications include ceftriaxone, cyclosporine, lamivudine, Zyprexa, Protonix. SOCIAL HISTORY: She lives in a nursing facility. Nonsmoker, nondrinker. Suffers from dementia. LABORATORY DATA: White count 4.2, 61% neutrophils, hematocrit 29.5, platelets 133, creatinine 1.2. Urinalysis: 845 white cells. Urine culture: Mixed organisms. PHYSICAL EXAMINATION: General: She is awake, out of bed to chair, eating dinner. She is not actually toxic appearing. Vital Signs: T-max 99.7. Blood pressure 127/64. Pulse 66, regular. Respirations 16 per minute. Eyes: Sclerae anicteric. Heart Sounds: S1, S2. Lungs: Clear. Abdomen: Soft. No suprapubic or flank tenderness. Extremities: 1+ edema. Chronic hyperemia present, left lower extremity. IMPRESSION: 1. Positive urine culture consistent with contamination. 2. CLL/myelodysplastic syndrome. 3. Dementia. Would observe off antibiotic therapy. No evidence of systemic infection at this time. Thank you for the kind referral. JUNI CANO M.D. LAURIE/[id number]
== END 2019-03-22 14:03 | disposition home or self-care (01) | DRG 812 ==
LOC: JER 14:01 → JERBED 17:08 → J4S 03-17 22:14
PROVIDERS: ADMIT Internal Medicine; ATTEND Internal Medicine
PROC: 30233R1 Transfusion of Nonautologous Platelets into Peripheral Vein, Percutaneous Approach (ICD-10-PCS; principal; 2019-03-17)
DX: D64.9 Anemia, unspecified (principal); N39.0 Urinary tract infection, site not specified; C91.10 Chronic lymphocytic leukemia of B-cell type not having achieved remission; I13.0 Hypertensive heart and chronic kidney disease with heart failure and stage 1 through stage 4 chronic kidney disease, or unspecified chronic kidney disease; D46.9 Myelodysplastic syndrome, unspecified; I50.9 Heart failure, unspecified; N18.9 Chronic kidney disease, unspecified; F41.9 Anxiety disorder, unspecified; R45.1 Restlessness and agitation; D61.818 Other pancytopenia; D69.6 Thrombocytopenia, unspecified; R41.82 Altered mental status, unspecified
CPT/HCPCS: 36415; 36430; 36511; 70450-TC; 71046-TC-FY; 80048; 80053; 81003; 83735; 84100; 85025; 85027; 86850; 86900; 86901; 86922; 87086; 90670; 97116-GP; 97161-GP; 99284-25; J7030; J7502; P9038; P9058

== ENCOUNTER 2019-04-01 16:50 | Inpatient (IN) | payer OTHER, MEDICARE ==
--- NOTE | 2019-04-01 18:36 | PDOC ---
History of Present Illness - General Chief Complaint: SIRS, Suspected/Possible Stated Complaint: NECK PAIN Time Seen by Provider: 04/01/19 17:54 - History of Present Illness Initial Comments: 04/01/19 23:53 73F PMH CLL, pancytopenia, CHF, HTN, dementia (AAOx2 at baseline), HBV brought in by her ex-partner for "nerves" x "awhile." Ex has noticed states possible head and neck pain but no alteration to mental status, personality, or behavior. Pt is a poor historian and denies everything. Denies f/c, cp/sob/ palpitations, n/v, urinary sx, numbness/tingling, focal weakness, vision/ hearing changes. Denies recent falls. Allergy to Vancomycin Lives at home alone, daughter comes daily to assist. Noted that patient was previously in NH on chart review. Past History - Past Medical History Allergies/Adverse Reactions: Allergies Allergy/AdvReac Type Severity Reaction Status Date / Time vancomycin AdvReac Verified 04/01/19 17:24 Home Medications: Ambulatory Orders Pantoprazole Sodium [Protonix -] 20 mg PO DAILY 10/08/18 Lamivudine [Lamivudine Hbv] 100 mg PO DAILY 11/01/18 Cyclosporine 100 mg PO DAILY 03/16/19 Olanzapine [Zyprexa -] 2.5 mg PO HS #30 tablet MDD 1 03/22/19 Anemia: Yes (pancytopenia) Asthma: No Cancer: (Chronic Lymphocytic leukemia) Cardiac Disorders: (CHF) CVA: No COPD: No CHF: Yes Dementia: No Diabetes: No GI Disorders: Yes (GERD, gallstones, diverticulosis, GIB) Disorders: Yes (UTIs, VRE bacteremia, large kidney stones) HTN: Yes Hypercholesterolemia: No Liver Disease: No Psychiatric Problems: Yes (possibe dementia) Seizures: No Thyroid Disease: No - Surgical History Abdominal Surgery: No Appendectomy: No Cardiac Surgery: No Cholecystectomy: No Lung Surgery: No Neurologic Surgery: No Orthopedic Surgery: No - Immunization History Immunization Up to Date: Yes - Psycho Social/Smoking Cessation Hx Smoking Status: No Smoking History: Never smoked Have you smoked in the past 12 months: No Number of Cigarettes Smoked Daily: 0 Hx Alcohol Use: No Drug/Substance Use Hx: No Substance Use Type: None Hx Substance Use Treatment: No Review of Systems - Review of Systems Comments:: ROS obtained but questionable reliability. CONSTITUTIONAL: Denies F / C HEENT: Denies headache, lightheadedness, dizziness, changes in vision / hearing , sore throat, rhinorrhea RESP: Denies SOB, cough CARD: Denies chest pain, palpitations GI: Denies N / V / D, abdominal pain, bloody stool : Denies dysuria, frequency NEURO: Denies numbness, tingling, weakness. Denies falls. MSK: Denies back pain, neck pain. *Physical Exam - Vital Signs Last Vital Signs Temp Pulse Resp BP Pulse Ox 100.2 F H 115 H 18 132/61 99 04/01/19 17:24 04/01/19 17:24 04/01/19 17:24 04/01/19 17:24 04/01/19 17:24 - Physical Exam GEN: NAD, comfortable. AAOx3 HEENT: NC/AT, CN II-XII intact, EOMI, PERRLA. No facial asymmetry. Normal voice. Supple neck w/ FROM no midline TTp. CV: S1/S2, RRR, no m/r/g LUNG: CTAB, no wheezes, crackles, rales, rhonchi. GI: soft, ndnt, +BS, no guarding, no rebound. EXTREMITIES: 2+ distal pulses. No LE edema. No obvious deformities of all extremities. SKIN: warm, dry, normal turgor PSYCH: Cooperative, answers no to almost every question, unkempt, malodorous NEURO: Moving all extremities well, 5/5 UE and LE strength. symmetric sensation. ED Treatment Course - LABORATORY CBC & Chemistry Diagram: 04/01/19 18:35 04/01/19 18:35 - RADIOLOGY Radiology Studies Ordered: Category Date Time Status CHEST X-RAY PORTABLE* [RAD] Stat Radiology 04/01/19 18:13 Ordered Medical Decision Making - Medical Decision Making 04/01/19 18:36 73F PMH CLL, pancytopenia, CHF, HTN, dementia (AAOx2 at baseline), HBV brought in by her ex-partner for "nerves" x "awhile." Triage VS tachycardic and borderline fever. Pt feels warm. Given CLL and h/o pancytopenia, high concern for infectious process. Sepsis labs EKG CXR 04/01/19 19:18 labs reviewed WBC 10, historically 4 BUN / Cr 24.8 / 1.9 Cr 03/20 1.2 BUN unchanged from baseline 04/01/19 19:38 CXR image reviewed by ED team - appears largely w/o acute pathology; possible focus overlying the left heart border Further examination reveals: SKIN/EXT: erythematous and warm 3x3 section of the anterior lower leg of the RLE. RLE warmer than LLE Lactic acid 4.9 1g CTX 04/01/19 19:56 EKG HR 93 GA 134 QRS 76 QTc 425 NSR LAxDev Adding clindamycin 600 IVPB 04/01/19 21:[address] Sabi Jordan Admitted Discharge - Discharge Information Problems reviewed: Yes Clinical Impression/Diagnosis: Sepsis Qualifiers: Sepsis type: sepsis due to unspecified organism Sepsis acute organ dysfunction status: unspecified Qualified Code(s): A41.9 - Sepsis, unspecified organism Cellulitis Qualifiers: Site of cellulitis: extremity Site of cellulitis of extremity: lower extremity Laterality: right Qualified Code(s): L03.115 - Cellulitis of right lower limb Condition: Guarded - Admission Yes - Follow up/Referral - Patient Discharge Instructions - Post Discharge Activity
[2019-04-01 18:42] LABS: VENOUS PC02 42.6 mmHg (38-52); VENOUS PH 7.38 (7.31-7.41); VENOUS PO2 < 49 mmHg (28-48)
[2019-04-01 18:44] LABS: EOS % 0.7 % (0-4.5); HEMATOCRIT 25.9 % (32.4-45.2); HEMOGLOBIN 8.5 GM/dL (10.7-15.3); LYMPH % 7.8 % (8-40); MCH 27.7 pg (25.7-33.7); MCHC 32.6 g/dl (32.0-36.0); MEAN CELL VOLUME 84.8 fl (80-96); MEAN PLT VOLUME 7.5 fl (7.5-11.1); MONO % 29.5 % (3.8-10.2); PLATELET COUNT 106 K/MM3 (134-434); RBC 3.06 M/mm3 (3.60-5.2); RDW 16.5 % (11.6-15.6); WHITE BLOOD COUNT 10.1 K/mm3 (4.0-10.0)
[2019-04-01 18:57] LABS: INR 1.14 (0.83-1.09); PROTHROMBIN TIME (PATIENT) 13.5 SEC (9.7-13.0)
[2019-04-01 19:00] LABS: ACTIVATED PTT 27.2 SECONDS (25.2-36.5)
[2019-04-01 19:12] LABS: ALBUMIN 3.1 g/dl (3.4-5.0); BILIRUBIN,TOTAL 1.2 mg/dL (0.2-1); BLOOD UREA NITROGEN 24.8 mg/dL (7-18); CREATININE 1.9 mg/dL (0.55-1.3); POTASSIUM 3.8 mmol/L (3.5-5.1); TOT PROT 6.4 g/dl (6.4-8.2)
--- NOTE | 2019-04-01 19:14 | PDOC ---
Attending Attestation - Resident Resident Name: Alexandro Del Cid - HPI HPI: 04/01/19 20:51 Pt presents to the ED complaining of "feeling nervous". Patient denies other, more specific complaints. Denies fever, nausea or vomiting, cough or shortness of breath or chest pain. Patient has an apparent cellulitis on her R leg. She did not notice it prior to admission and is unable to state how long it has been present. - Physicial Exam PE: 04/01/19 20:56 Agree with resident exam. Patient is alert and oriented and in no acute distress. CV: rrr no m/r/g pulm: CTA b/l abdomen: soft, non tender, non distended without guarding or rebound. Ext: + erythema consistent with cellulitis on r>L LE below the calf. - Medical Decision Making 04/01/19 21:10 Pt presents to the ED complaining of "nervousness". Found to be mildly tachycardic and febrile on arrival, with cellulitis on exam. Labs show evidence of sepsis, with markedly elevated lactate. Will start broad spectrum antibiotics and admit to medicine for continued management. Patient has a vanco allergy, so will give clinda for possible mrsa. 04/01/19 21:14
[2019-04-01 19:16] LABS: ANISOCYTOSIS 1+; MACROCYTOSIS 0; PLATELET ESTIMATE DECREASED
[2019-04-01] MEDS ORDERED: CEFTRIAXONE 1 GM in DEXTROSE 5%-WATER - 100 ML IVPB ONE (19:40)
[2019-04-01] MEDS ORDERED: CEFTRIAXONE 1 GM/50 ML BAG ONE (19:44)
[2019-04-01] MEDS ORDERED: SODIUM CHLORIDE 0.9% 500 ML INFUS.BAG IV ONE (20:03)
[2019-04-01] MEDS ORDERED: ACETAMINOPHEN 1000 MG/100 ML VIAL (NON FORMULARY) IVPB ONE (20:03)
[2019-04-01] MEDS ORDERED: CLINDAMYCIN 600MG PREMIX IVPB 600 MG/50 ML BAG IVPB ONE ×2 (20:50→20:57)
[2019-04-01] MEDS ORDERED: ACETAMINOPHEN INJECTION 100 ML IVPB ONE (20:57)
[2019-04-01] MEDS ORDERED: ACETAMINOPHEN 325 MG TABLET (FP) PO PRN (22:35)
[2019-04-01] MEDS ORDERED: OLANZapine 10 MG TABLET ONE (23:02)
--- NOTE | 2019-04-02 06:52 | HP ---
Admitting History and Physical - Primary Care Physician PCP: Sabi Jordan S - Admission Chief Complaint: anxiety, agitation, low grade fever History of Present Illness: 73F PMH CLL, pancytopenia, CHF, HTN, mild dementia (AOx2 at baseline), HBV brought in by her ex- for "nerves" x low grade fever. Pt is a poor historian and denies everything. Denies f/c, cp/sob/palpitations, n/v, urinary sx, numbness/tingling, focal weakness, vision/hearing changes. Denies recent falls. Allergy to Vancomycin Lives at home alone, daughter comes daily to assist. - Past Medical History OCCUPATIONAL THERAPY ASSIST: Yes: Dementia Cardiovascular: Yes: HTN Gastrointestinal: Yes: Diverticulosis (on CT scan), GI Bleed (02/13 post- sphincterotomy bleed) Hepatobiliary: Yes: Cholelithiasis, Choledocholithiasis (with cholangitis 02/13 requring ERCP & sphincterotomy complicated by a post-sphincterotomy bleed ) Renal/: Yes: Renal Calculi Heme/Onc: Yes: Anemia, Cancer (CLL- had bone marrow at [facility] recently), Other ( thalassemia) Psych: Yes: Anxiety Musculoskeletal: Yes: Chronic low back pain - Past Surgical History Past Surgical History: Yes: Tonsillectomy, Upper Endoscopy - Smoking History Smoking history: Never smoked Have you smoked in the past 12 months: No Aproximately how many cigarettes per day: 0 - Alcohol/Substance Use Hx Alcohol Use: No History of Substance Use: reports: None - Social History Usual Living Arrangement: Yes: Alone Do you think of yourself as: Straight/Heterosexual ADL: Independent 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 of Recent Travel: No Home Medications - Allergies Allergies/Adverse Reactions: Allergies Allergy/AdvReac Type Severity Reaction Status Date / Time vancomycin AdvReac Verified 04/01/19 17:24 - Home Medications Home Medications: Ambulatory Orders Pantoprazole Sodium [Protonix -] 20 mg PO DAILY 10/08/18 Lamivudine [Lamivudine Hbv] 100 mg PO DAILY 11/01/18 Cyclosporine 100 mg PO DAILY 03/16/19 Olanzapine [Zyprexa -] 2.5 mg PO HS #30 tablet MDD 1 03/22/19 Family Medical History Family History: Unremarkable Review of Systems - Review of Systems Constitutional: denies: Chills, Fever, Lethargy, Loss of Appetite, Weakness Eyes: denies: Blurred Vision, Eye Pain HENT: denies: Difficult Swallowing, Ear Pain, Epistaxis Neck: denies: Stiffness, Tenderness Cardiovascular: denies: Chest Pain, Palpitations, Shortness of Breath Respiratory: denies: Cough, SOB Gastrointestinal: denies: Abdominal Pain, Diarrhea, Vomiting Genitourinary: denies: Dysuria, Flank Pain Musculoskeletal: denies: Back Pain Integumentary: denies: Rash Neurological: denies: No Symptoms, Change in LOC, Change in Speech, Confusion, Dizziness, Seizure, Syncope Hematology/Lymphatic: denies: Easily Bruised, Excessive Bleeding Psychiatric: reports: Altered Sleep Pattern, Anxiety, Depression. denies: Suicidal Physical Examination Vital Signs: Vital Signs Temperature 97.8 F 04/02/19 05:45 Pulse Rate 64 04/02/19 05:45 Respiratory Rate 18 04/02/19 05:45 Blood Pressure 125/57 L 04/02/19 05:45 O2 Sat by Pulse Oximetry (%) 98 04/02/19 00:08 Constitutional: Yes: No Distress, Calm Eyes: Yes: Conjunctiva Clear HENT: Yes: Atraumatic Neck: Yes: Supple Cardiovascular: Yes: Regular Rate and Rhythm Respiratory: Yes: CTA Bilaterally Gastrointestinal: Yes: Soft. No: Tenderness Renal/: No: Hematuria Musculoskeletal: No: Joint Stiffness, Joint Swelling Extremities: No: Cold, Cool, Cyanosis Edema: No Integumentary: No: Rash, Venous Stasis Changes Neurological: Yes: WNL, Alert, Oriented ...Motor Strength: WNL Psychiatric: Yes: WNL, Alert, Oriented. No: Agitated, Suicidal Ideation Labs: CBC, BMP 04/01/19 18:35 04/01/19 18:35 Imaging - Results Chest X-ray: Report Reviewed Other: Report Reviewed Assessment/Plan 73F PMH CLL, pancytopenia, CHF, HTN, dementia (AAOx2 at baseline), HBV brought in for anxiety agitation found to have low grade fever; pt has h/o recurrent UTIs and leg cellulitis; admit; check cultures; IV ATB/ ID eval PT and CM eval d/w pt and at bedside; will call daughter
[2019-04-02] MEDS ORDERED: cefTRIAXone SODIUM 1 GM VIAL ONE (08:58)
[2019-04-02] MEDS ORDERED: DEXTROSE 5%-WATER - 50 ML IVPB ONE (08:58)
[2019-04-02] MEDS ORDERED: PT OWN MED DRAWER 7, Y5N ONE (09:06)
[2019-04-02] MEDS: CEFTRIAXONE 1 GM in DEXTROSE 5%-WATER - 50 ML IVPB SCH (09:15)
[2019-04-02] MEDS: PANTOPRAZOLE 20 MG TABLET (FP) PO SCH (09:19)
[2019-04-02] MEDS ORDERED: LAMIVUDINE 100 MG PO SCH (10:00)
[2019-04-02] MEDS: lamiVUDine 10 MG/1 ML BULK BOTTLE PO SCH (11:14)
[2019-04-02 11:37] LABS: BASO % 1.6 % (0-2.0); EOS % 1.3 % (0-4.5); HEMATOCRIT 22.5 % (32.4-45.2); HEMOGLOBIN 7.6 GM/dL (10.7-15.3); LYMPH % 12.4 % (8-40); MCHC 33.7 g/dl (32.0-36.0); MEAN CELL VOLUME 83.3 fl (80-96); MEAN PLT VOLUME 6.9 fl (7.5-11.1); MONO % 26.3 % (3.8-10.2); NEUT % 58.4 % (42.8-82.8); PLATELET COUNT 89 K/MM3 (134-434); RDW 16.1 % (11.6-15.6); WHITE BLOOD COUNT 8.3 K/mm3 (4.0-10.0)
[2019-04-02 11:42] LABS: ALBUMIN 2.7 g/dl (3.4-5.0); BILIRUBIN,TOTAL 0.5 mg/dL (0.2-1); BLOOD UREA NITROGEN 23.4 mg/dL (7-18); CALCIUM 8.6 mg/dL (8.5-10.1); CREATININE 1.7 mg/dL (0.55-1.3); TOT PROT 5.6 g/dl (6.4-8.2)
--- NOTE | 2019-04-02 12:18 | PN ---
Progress Note (short form) - Note Progress Note: ID CONSULT DICTATED LOW GRADE FEVER/ TACHYCARDIA/ LACTIC ACIDOSIS R/O SEPSIS ? RECURRENT UTI ERYTHEMA L LE HAS BEEN CHRONIC CLL/MDS AWAIT C/S CONTINUE EMPIRIC CEFTRIAXONE
[2019-04-02 12:19] LABS: ANISOCYTOSIS 1+; MACROCYTOSIS 0; OVALOCYTE 1+; PLATELET ESTIMATE DECREASED
--- NOTE | 2019-04-02 17:04 | EKG ---
Test Reason : Blood Pressure : / mmHG Vent. Rate : 093 BPM Atrial Rate : 093 BPM P-R Int : 134 ms QRS Dur : 076 ms QT Int : 342 ms P-R-T Axes : 066 -39 049 degrees QTc Int : 425 ms NORMAL SINUS RHYTHM WITH SINUS ARRHYTHMIA POSSIBLE LEFT ATRIAL ENLARGEMENT LEFT AXIS DEVIATION CANNOT RULE OUT ANTERIOR INFARCT (CITED ON OR BEFORE 16-JAN-2019) ABNORMAL ECG WHEN COMPARED WITH ECG OF 13-FEB-2019 11:59, NO SIGNIFICANT CHANGE WAS FOUND Confirmed by VERONICA ESCOBEDO MD ([id number]) on 04/02/2019 5:03:46 PM Referred By: Confirmed By:VERONICA ESCOBEDO MD
--- NOTE | 2019-04-02 17:47 | CONSULT ---
Consult Consult Specialty:: Hematology Reason for Consultation:: Anemia. History of CLL - History of Present Illness Chief Complaint: Anemia History of Present Illness: 73 y/o lady with PMH CLL, pancytopenia, CHF, HTN, dementia (AAOx2 at baseline), HBV per ER note she was brought in by her ex-partner for "nerves" x "awhile." Ex has noticed states possible head and neck pain but no alteration to mental status, personality, or behavior. Pt is a poor historian and denies everything. Denies f/c, cp/sob/palpitations, n/v, urinary sx, numbness/tingling, focal weakness, vision/hearing changes. Denies recent falls. Allergy to Vancomycin Lives at home alone, daughter comes daily to assist. Noted that patient was previously in NH on chart review. When I saw 04/02, she denies bleeding, black stool, mouth bleeding or epistaxis, does not have any complaints - History Source History Provided By: Patient, Medical Record Limitations to Obtaining History: Poor Historian - Past Medical History PERSONNEL COORDINATOR: Yes: Dementia Cardio/Vascular: Yes: HTN Gastrointestinal: Yes: Diverticulosis (on CT scan), GI Bleed (02/13 post- sphincterotomy bleed) Hepatobiliary: Yes: Cholelithiasis, Choledocholithiasis (with cholangitis 02/13 requring ERCP & sphincterotomy complicated by a post-sphincterotomy bleed ) Renal/: Yes: Renal Calculi Psych: Yes: Anxiety Musculoskeletal: Yes: Chronic low back pain - Past Surgical History Past Surgical History: Yes: Tonsillectomy, Upper Endoscopy - Alcohol/Substance Use Hx Alcohol Use: No History of Substance Use: reports: None - Smoking History Smoking history: Never smoked Have you smoked in the past 12 months: No Aproximately how many cigarettes per day: 0 - Social History Usual Living Arrangement: With Child ADL: Independent 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 of Recent Travel: No Home Medications - Allergies Allergies/Adverse Reactions: Allergies Allergy/AdvReac Type Severity Reaction Status Date / Time vancomycin AdvReac Verified 04/01/19 17:24 - Home Medications Home Medications: Ambulatory Orders Pantoprazole Sodium [Protonix -] 20 mg PO DAILY 10/08/18 Lamivudine [Lamivudine Hbv] 100 mg PO DAILY 11/01/18 Cyclosporine 100 mg PO DAILY 03/16/19 Olanzapine [Zyprexa -] 2.5 mg PO HS #30 tablet MDD 1 03/22/19 Review of Systems - Review of Systems Constitutional: reports: No Symptoms Eyes: reports: No Symptoms HENT: reports: No Symptoms Neck: reports: No Symptoms Cardiovascular: reports: No Symptoms Respiratory: reports: No Symptoms Gastrointestinal: reports: No Symptoms Genitourinary: reports: No Symptoms Musculoskeletal: reports: No Symptoms Integumentary: reports: No Symptoms Neurological: reports: No Symptoms Endocrine: reports: No Symptoms Hematology/Lymphatic: reports: No Symptoms Psychiatric: reports: Other Physical Exam Vital Signs: Vital Signs Temperature 98.5 F 04/02/19 13:58 Pulse Rate 82 04/02/19 13:58 Respiratory Rate 16 04/02/19 13:58 Blood Pressure 111/65 04/02/19 13:58 O2 Sat by Pulse Oximetry (%) 98 04/02/19 09:00 Constitutional: Yes: No Distress, Calm Eyes: Yes: WNL, Conjunctiva Clear, EOM Intact HENT: Yes: WNL Neck: Yes: WNL, Supple, Trachea Midline Cardiovascular: Yes: WNL, Regular Rate and Rhythm Respiratory: Yes: WNL, Regular, CTA Bilaterally Gastrointestinal: Yes: WNL, Normal Bowel Sounds, Soft Renal/: Yes: WNL Musculoskeletal: Yes: WNL Extremities: Yes: WNL Labs: CBC, BMP 04/02/19 10:34 04/02/19 10:34 Problem List - Problems (1) Anemia Code(s): D64.9 - ANEMIA, UNSPECIFIED Qualifiers: Anemia type: unspecified type Qualified Code(s): D64.9 - Anemia, unspecified (2) Chronic lymphocytic leukemia Code(s): C91.10 - CHRONIC LYMPHOCYTIC LEUK OF B-CELL TYPE NOT ACHIEVE REMIS (3) Myelodysplasia (myelodysplastic syndrome) Code(s): D46.9 - MYELODYSPLASTIC SYNDROME, UNSPECIFIED Assessment/Plan 73 y/o lady with PMH CLL, pancytopenia, newly diagnosed with MDS, CHF, HTN, dementia (AAOx2 at baseline), HBV brought in by her ex-partner for "nerves" x "awhile." Triage VS tachycardic and borderline fever. Given CLL and MDS, there was high concern for infectious process in the ED. Hematology consulted called for anemia. Recommend: 1) Cellulitis vs. Chronic Erythema. Denisse ID consult. Continue Cefriaxone. Afebrile and lactic acid trending down. 2) MDS. IPSS-R 5. High risk. Please obtain serum EPO. Transfuse to Hb 7 or above (unless cardiovascular or other concerns). Obtain Iron studies (Iron, TIBC , Ferritin,etc). Reticulocyte count, Vit B12 levels, LDH, Haptoglobin, Consider Hemoglobin electrophoresis. She has also Thalassemia minor/intermedia. May consider evaluation with Dr. Adam at [facility] for clinical trial evaluation for MDS as well and will continue to follow with Dr. Garcia. CLL infiltration in BM was minimal and her main problem appears to be MDS 3) Thank you for this consultation
[2019-04-02] MEDS: OLANZapine 2.5 MG TABLET PO SCH (21:00)
--- NOTE | 2019-04-03 06:34 | PN ---
Progress Note, Physician Chief Complaint: in bed NAD afebrile consults noted; pt has no c/o - Current Medication List Current Medications: Active Medications Acetaminophen (Tylenol -) 650 mg PO Q6H PRN PRN Reason: FEVER Cyclosporine (Sandimmune) 100 mg PO DAILY [facility] Last Admin: 04/02/19 11:14 Dose: 100 mg Ceftriaxone Sodium 1 gm/ (Dextrose) 50 mls @ 100 mls/hr IVPB DAILY [facility] Last Admin: 04/02/19 09:15 Dose: 100 mls/hr Lamivudine (Epivir Oral Solution -) 100 mg PO DAILY [facility] Last Admin: 04/02/19 11:14 Dose: 100 mg Olanzapine (Zyprexa -) 2.5 mg PO HS [facility] Last Admin: 04/02/19 21:00 Dose: 2.5 mg Pantoprazole Sodium (Protonix -) 20 mg PO DAILY [facility] Last Admin: 04/02/19 09:19 Dose: 20 mg - Objective Vital Signs: Vital Signs Temperature 97.8 F 04/03/19 05:57 Pulse Rate 75 04/03/19 05:57 Respiratory Rate 18 04/03/19 05:57 Blood Pressure 127/64 04/03/19 05:57 O2 Sat by Pulse Oximetry (%) 96 04/02/19 20:13 Constitutional: Yes: No Distress, Calm Eyes: Yes: Conjunctiva Clear HENT: Yes: Atraumatic Neck: Yes: Supple Cardiovascular: Yes: Regular Rate and Rhythm Respiratory: Yes: CTA Bilaterally Gastrointestinal: Yes: Soft. No: Tenderness Genitourinary: No: Hematuria Musculoskeletal: No: Joint Stiffness, Joint Swelling Extremities: No: Cold, Cool, Cyanosis Edema: No Integumentary: No: Rash, Venous Stasis Changes Neurological: Yes: Alert ...Motor Strength: WNL Psychiatric: Yes: Alert. No: Agitated Labs: CBC, BMP 04/02/19 10:34 04/02/19 10:34 INR, PTT INR 1.14 (0.83-1.09) H 04/01/19 18:35 - ....Imaging Other: Report Reviewed Assessment/Plan 73F PMH CLL, pancytopenia, CHF, HTN, dementia (AAOx2 at baseline), HBV brought in for anxiety agitation found to have low grade fever; pt has h/o recurrent UTIs and leg cellulitis; admit; check cultures; IV ATB/ ID eval PT and CM eval d/w pt and staff; called daughter Dayana - message
[2019-04-03] MEDS ORDERED: PT OWN MED DRAWER 7, Y5N ONE (08:55)
[2019-04-03] MEDS ORDERED: cefTRIAXone SODIUM 1 GM VIAL ONE (08:56)
[2019-04-03] MEDS ORDERED: DEXTROSE 5%-WATER - 50 ML IVPB ONE (08:56)
[2019-04-03] MEDS: CEFTRIAXONE 1 GM in DEXTROSE 5%-WATER - 50 ML IVPB SCH (09:01)
[2019-04-03] MEDS: PANTOPRAZOLE 20 MG TABLET (FP) PO SCH (09:02)
[2019-04-03] MEDS: lamiVUDine 10 MG/1 ML BULK BOTTLE PO SCH (09:03)
--- NOTE | 2019-04-03 11:23 | CONS ---
INFECTIOUS DISEASE CONSULTATION DATE OF CONSULTATION: DATE OF DICTATION: 04/02/2019 HISTORY: The patient is a 73-year-old female with a history of dementia, CLL, myelodysplastic syndrome, and history of recurrent urinary tract infections evaluated for possible sepsis. Patient has had multiple recent hospitalizations. She was hospitalized in February for a urinary tract infection. She was brought to the emergency room on April 01, 2019, complaining of feeling nervous. In the emergency room, the examiner felt that the patient was warm to touch. She was noted to have low-grade fever, tachycardia, and erythema involving the left pretibial area. She was also noted to have a lactic acidosis. Cultures were obtained. She was empirically treated with ceftriaxone. Patient suffers from dementia and cannot give a reliable history. She offers no complaints. No reports of shaking chills, labored breathing, cough, sputum production, vomiting, diarrhea, or grossly purulent urine. She has erythema in the left pretibial area, which has been chronic in nature. PAST MEDICAL HISTORY: Positive for dementia, CLL, myelodysplastic syndrome, congestive heart failure, hypertension, MRSA bacteremia in November 2018. ALLERGIES: VANCOMYCIN. MEDICATIONS: Include acetaminophen, ceftriaxone, cyclosporine, Lamivudine, Zyprexa, Protonix. SOCIAL HISTORY: [facility]. Suffers from dementia. Nonsmoker, nondrinker. SYSTEMS REVIEW: Neurologic: Positive for dementia. Cardiac: Negative chest pain or palpitations. Respiratory: Negative cough or sputum production. Gastrointestinal: Negative vomiting or diarrhea. Genitourinary: Positive for recurrent urinary tract infections. LABORATORY DATA: White count 8.3, hematocrit 22.5, platelets 89, creatinine 1.7, lactic acid 4.9. PHYSICAL EXAMINATION: General: She is awake in bed. Confused. Vital Signs: Temperature 98.8, maximum temperature 100.2, blood pressure 142/60, pulse 92 regular, respirations 18 per minute. HEENT: Sclerae anicteric. Heart: Sounds S1, S2. Lungs: Clear. Abdomen: Soft, nontender. Extremities: 1+ lower extremity edema. There is erythema and warmth present over the distal left pretibial area. IMPRESSION: 1. Low-grade fever, tachycardia, lactic acidosis, rule out sepsis. 2. Rule out recurrent urinary tract infection. 3. Chronic erythema of the left lower extremity. 4. Chronic lymphocytic leukemia/myelodysplastic syndrome. PLAN: Source of possible sepsis not clear. The left lower extremity erythema is chronic in nature, however, does feel warm to touch. Cannot rule out a cellulitis. Await cultures. Continue empiric ceftriaxone for treatment of possible sepsis secondary to urinary tract or skin source in this nonneutropenic patient. Supportive measures. Thank you for the kind referral. JUNI CANO M.D. MARY [id number]
[2019-04-03] MEDS: OLANZapine 2.5 MG TABLET PO SCH (21:21)
--- NOTE | 2019-04-03 21:45 | PN ---
Progress Note (short form) - Note Progress Note: PAtient seen and examined Wants to leave Confused AFVSS Cor: RSR, No murmurs, No gallops Lungs: Clear to P&A Abd: Soft, Normal bowel sounds, No organomegaly Ext:No significant edema Labs/meds reviewed Assessment/Plan 73 y/o lady with PMH CLL, pancytopenia, newly diagnosed with MDS, CHF, HTN, dementia (AAOx2 at baseline), HBV brought in by her ex-partner for "nerves" x "awhile." Triage VS tachycardic and borderline fever. Recommend: 1) Cellulitis vs. Chronic Erythema. Continue Cefriaxone. Afebrile and lactic acid trending down. 2) MDS--14% balsts on aspirate. Nl cytogenetics/FISH. Transfusion dependent. Transfuse PRBCS for Hgb <7 3. CLL--minor component <5% on marrow. monitor 4. On CSA. CR 1.7. Will request renal consult
[2019-04-04 06:21] LABS: EOS % 1.5 % (0-4.5); HEMATOCRIT 23.2 % (32.4-45.2); HEMOGLOBIN 7.8 GM/dL (10.7-15.3); LYMPH % 10.8 % (8-40); MCH 27.7 pg (25.7-33.7); MCHC 33.5 g/dl (32.0-36.0); MEAN CELL VOLUME 82.8 fl (80-96); MEAN PLT VOLUME 7.6 fl (7.5-11.1); MONO % 39.4 % (3.8-10.2); NEUT % 48.3 % (42.8-82.8); PLATELET COUNT 96 K/MM3 (134-434); RDW 16.3 % (11.6-15.6); WHITE BLOOD COUNT 10.5 K/mm3 (4.0-10.0)
[2019-04-04 06:49] LABS: ALBUMIN 3.4 g/dl (3.4-5.0); BILIRUBIN,TOTAL 0.4 mg/dL (0.2-1); BLOOD UREA NITROGEN 23.9 mg/dL (7-18); CALCIUM 9.2 mg/dL (8.5-10.1); CREATININE 1.7 mg/dL (0.55-1.3); POTASSIUM 3.4 mmol/L (3.5-5.1); TOT PROT 6.6 g/dl (6.4-8.2)
--- NOTE | 2019-04-04 09:44 | PN ---
Physical Exam: SUBJECTIVE: Patient seen and examined at bed side , no acute events over night afebrile , no chest pain or sob , cellulitis LE B/L left > Right OBJECTIVE: Vital Signs Period Temp Pulse Resp BP Sys/Borjas Pulse Ox Last 24 Hr 97.3 F-98.6 F 75-91 16-18 115-134/54-71 98 GENERAL: awake alert x2 no time HEAD: Normal with no signs of trauma. EYES: PERRL, extraocular movements intact, sclera anicteric,lower blephara erythema , ENT: moist mucous membranes.no oral thrush or mucositis NECK: supple. anterior neck ipper chest mild pupura LUNGS: CTA B/L HEART: Regular rate and rhythm, S1, S2 ,soft murmur LUSB , ABDOMEN: Soft, nontender, nondistended, normoactive bowel sounds, NEUROLOGICAL: no focal deficit . Normal speech, LE : no edema , left lower anterior chin with erythema/cellulites , mild spot on the rigt leg PSYCH: Normal mood, normal affect. SKIN: Warm, dry,hypopigmentaion spots on the back port on right anterior chest left arm hematoma , right arm hematoma lymph nodes : no nodules palpated submandibular , inguinal or axillary breast exam with no masses palpated Laboratory Results - last 24 hr 04/04/19 04/04/19 05:29 05:29 WBC 10.5 H RBC 2.80 L Hgb 7.8 L Hct 23.2 L MCV 82.8 MCH 27.7 MCHC 33.5 RDW 16.3 H Plt Count 96 L MPV 7.6 D Absolute Neuts (auto) 5.1 Neutrophils % 48.3 Lymphocytes % 10.8 Monocytes % 39.4 H Eosinophils % 1.5 Basophils % 0.0 Nucleated RBC % 0 Sodium 140 Potassium 3.4 L Chloride 105 Carbon Dioxide 26 Anion Gap 10 BUN 23.9 H Creatinine 1.7 H Est GFR (CKD-EPI)AfAm 34.08 Est GFR (CKD-EPI)NonAf 29.40 Random Glucose 150 H Calcium 9.2 Total Bilirubin 0.4 AST 23 ALT 13 Alkaline Phosphatase 103 Total Protein 6.6 Albumin 3.4 Active Medications Generic Name Dose Route Start Last Admin Trade Name Freq PRN Reason Stop Dose Admin Acetaminophen 650 mg 04/01/19 22:35 Tylenol - PO Q6H PRN FEVER Cyclosporine 100 mg 04/02/19 10:00 04/03/19 09:04 Sandimmune PO 100 mg DAILY RYAN Administration Ceftriaxone Sodium 1 gm/ 50 mls @ 100 mls/hr 04/02/19 10:00 04/03/19 09:01 Dextrose IVPB 100 mls/hr DAILY RYAN Administration Lamivudine 100 mg 04/02/19 10:00 04/03/19 09:03 Epivir Oral Solution - PO 100 mg DAILY RYAN Administration Olanzapine 2.5 mg 04/02/19 22:00 04/03/19 21:21 Zyprexa - PO 2.5 mg HS RYAN Administration Pantoprazole Sodium 20 mg 04/02/19 10:00 04/03/19 09:02 Protonix - PO 20 mg DAILY RYAN Administration CBC, BMP 04/04/19 05:29 04/04/19 05:29 ASSESSMENT/PLAN: 73 y/o lady with PMH CLL, pancytopenia, newly diagnosed with MDS, CHF, HTN, dementia (AAOx2 at baseline), HBV brought in by her ex-partner for "nerves" x "awhile." Triage VS tachycardic and borderline fever. # MDS , recently diagnosed, with bands 16-14 %, normal cytogenetics /Fish , maintain HGb > 7 # CLL ,minor component <5% on marrow. monitor # Anemia H/H 7.8/23.2 , no active bleeding monitor H/H daily # thrombocytopenia Plt 96 #dementia # Cellulitis vs chronic erythema cont ceftriaxone , ID on board , blood cx no growth so far # EBER on CKD , renal consult #Hypokalemia cont lamivudin, cyclosporin and zyprexa Visit type - Emergency Visit Emergency Visit: Yes ED Registration Date: 04/01/19 Care time: The patient presented to the Emergency Department on the above date and was hospitalized for further evaluation of their emergent condition. - New Patient This patient is new to me today: No - Critical Care Critical Care patient: No ATTENDING PHYSICIAN STATEMENT I saw and evaluated the patient. I reviewed the resident's note and discussed the case with the resident. I agree with the resident's findings and plan as documented. SUBJECTIVE: OBJECTIVE: ASSESSMENT AND PLAN:
[2019-04-04] MEDS ORDERED: cefTRIAXone SODIUM 1 GM VIAL ONE (09:55)
[2019-04-04] MEDS ORDERED: DEXTROSE 5%-WATER - 50 ML IVPB ONE (09:55)
[2019-04-04] MEDS ORDERED: PT OWN MED DRAWER 7, Y5N ONE (09:55)
[2019-04-04] MEDS: CEFTRIAXONE 1 GM in DEXTROSE 5%-WATER - 50 ML IVPB SCH (09:59)
[2019-04-04] MEDS: PANTOPRAZOLE 20 MG TABLET (FP) PO SCH (10:00)
[2019-04-04] MEDS: lamiVUDine 10 MG/1 ML BULK BOTTLE PO SCH (10:00)
--- NOTE | 2019-04-04 10:44 | PN ---
Progress Note, Physician Chief Complaint: in bed NAD feels well afebrile consults noted - Current Medication List Current Medications: Active Medications Acetaminophen (Tylenol -) 650 mg PO Q6H PRN PRN Reason: FEVER Cyclosporine (Sandimmune) 100 mg PO [facility]ILY [facility] Last Admin: 04/04/19 09:59 Dose: 100 mg Ceftriaxone Sodium 1 gm/ (Dextrose) 50 mls @ 100 mls/hr IVPB DAILY [facility] Last Admin: 04/04/19 09:59 Dose: 100 mls/hr Lamivudine (Epivir Oral Solution -) 100 mg PO DAILY [facility] Last Admin: 04/04/19 10:00 Dose: 100 mg Olanzapine (Zyprexa -) 2.5 mg PO HS [facility] Last Admin: 04/03/19 21:21 Dose: 2.5 mg Pantoprazole Sodium (Protonix -) 20 mg PO DAILY [facility] Last Admin: 04/04/19 10:00 Dose: 20 mg Potassium Chloride (K-Dur -) 40 meq PO ONCE ONE Stop: 04/04/19 10:23 - Objective Vital Signs: Vital Signs Temperature 98.6 F 04/04/19 08:44 Pulse Rate 91 H 04/04/19 08:44 Respiratory Rate 16 04/04/19 08:44 Blood Pressure 133/62 04/04/19 08:44 O2 Sat by Pulse Oximetry (%) 98 04/03/19 21:00 Constitutional: Yes: No Distress Eyes: Yes: Conjunctiva Clear HENT: Yes: Atraumatic Neck: Yes: Supple Cardiovascular: Yes: Regular Rate and Rhythm Respiratory: Yes: CTA Bilaterally Gastrointestinal: Yes: Soft. No: Tenderness Musculoskeletal: No: Joint Stiffness, Joint Swelling Extremities: Yes: Erythema (chronic mils LLE no pain or itch). No: Cold, Cool Edema: No Integumentary: No: Rash, Venous Stasis Changes Neurological: Yes: Alert, Oriented ...Motor Strength: WNL Psychiatric: Yes: Alert, Oriented. No: Agitated, Suicidal Ideation Labs: CBC, BMP 04/04/19 05:29 04/04/19 05:29 INR, PTT INR 1.14 (0.83-1.09) H 04/01/19 18:35 - ....Imaging Other: Report Reviewed Assessment/Plan 73F PMH CLL, pancytopenia, CHF, HTN, dementia (AAOx2 at baseline), HBV brought in for anxiety agitation found to have low grade fever; pt has h/o recurrent UTIs and leg cellulitis; admit; check cultures; IV ATB/ ID eval heme onc f/u PT and CM eval d/w pt and staff; called daughter
[2019-04-04] MEDS ORDERED: POTASSIUM CHLORIDE TABS 20 MEQ TABLET.ER (FP) PO ONE (11:00)
[2019-04-04 15:18] LABS: ANISOCYTOSIS 1+; MACROCYTOSIS 0; PLATELET ESTIMATE DECREASED
--- NOTE | 2019-04-04 16:22 | CONSULT ---
Consult - text type - Consultation Consultation Note: Renal follow Consult for CKD This is a 73 year old woman with history of CLL, panytopenia, CHF, hypertension , CKD, Hydronephrosis who presented from home with non-specific complaints and noted to have low grade fever and Cr of 1.7. She is awake and alert and oriented x 1. Denies any pain, shortness of breath, fever, chills, N/V/D. No flank pain, dysuria or frequency. No Abd pain, chest pain. Making urine. Tolerating oral diet. PMhx: as above Allergies: NKDA Family Hx: NC Social Hx: No T/A/D ROIS: as per HPI, limited due to confusion Home Medications Medication Instructions Recorded Pantoprazole Sodium [Protonix -] 20 mg PO DAILY 10/08/18 Lamivudine [Lamivudine Hbv] 100 mg PO DAILY 11/01/18 Cyclosporine 100 mg PO DAILY 03/16/19 Olanzapine [Zyprexa -] 2.5 mg PO HS #30 tablet MDD 1 03/22/19 Vital Signs Temperature 98.4 F 04/04/19 15:30 Pulse Rate 79 04/04/19 15:30 Respiratory Rate 20 04/04/19 15:30 Blood Pressure 118/48 L 04/04/19 15:30 O2 Sat by Pulse Oximetry (%) 98 04/04/19 10:00 Intake & Output 04/01/19 04/02/19 04/03/19 04/04/19 23:59 23:59 23:59 23:59 Intake Total 1585 240 250 Balance 1585 240 250 Weight 52.163 kg 53.694 kg 52.617 kg 53.433 kg NAD AAOx 1 neck supple, no JVD RRR CTA soft NT/ND no LE edema, clubbing or cyanosis no bladder distension CBC, BMP 04/04/19 05:29 04/04/19 05:29 Current Medications Acetaminophen (Tylenol -) 650 mg PO Q6H PRN PRN Reason: FEVER Cyclosporine (Sandimmune) 100 mg PO DAILY [facility] Last Admin: 04/04/19 09:59 Dose: 100 mg Ceftriaxone Sodium 1 gm/ (Dextrose) 50 mls @ 100 mls/hr IVPB DAILY [facility] Last Admin: 04/04/19 09:59 Dose: 100 mls/hr Lamivudine (Epivir Oral Solution -) 100 mg PO DAILY [facility] Last Admin: 04/04/19 10:00 Dose: 100 mg Olanzapine (Zyprexa -) 2.5 mg PO HS RYAN Last Admin: 04/03/19 21:21 Dose: 2.5 mg Pantoprazole Sodium (Protonix -) 20 mg PO DAILY [facility] Last Admin: 04/04/19 10:00 Dose: 20 mg 73 year old woman with history of CLL, panytopenia, CHF, hypertension, CKD, Hydronephrosis who presented from home with non-specific complaints and noted to have low grade fever and Cr of 1.7. 1. CKD stage 3b (Cr has been in the range of 1.4-1.7 over the past 3-4 months) 2. Unilateral hydronephrosis 3. Low grade fever 4. CLL 5. Anemia 6. CHF Renal function essentially stable at this time. No overt electrolyte or acid/ base disturbance. Pt appears euvolemic. Check Renal US to access for any changes in kidney size Contiue empiric antibiotics as per PMD Trend H/H. Trend renal function and electrolytes daily. Tr Duran DO
[2019-04-04] MEDS: OLANZapine 2.5 MG TABLET PO SCH (21:02)
--- NOTE | 2019-04-05 06:40 | PN ---
Progress Note, Physician Chief Complaint: OOB to chair comfortable no c/o afebrile PRBC for anemia; PLT dropped some petechia but no bleed - Current Medication List Current Medications: Active Medications Acetaminophen (Tylenol -) 650 mg PO Q6H PRN PRN Reason: FEVER Cyclosporine (Sandimmune) 100 mg PO DAILY [facility] Last Admin: 04/04/19 09:59 Dose: 100 mg Ceftriaxone Sodium 1 gm/ (Dextrose) 50 mls @ 100 mls/hr IVPB DAILY [facility] Last Admin: 04/04/19 09:59 Dose: 100 mls/hr Lamivudine (Epivir Oral Solution -) 100 mg PO DAILY [facility] Last Admin: 04/04/19 10:00 Dose: 100 mg Olanzapine (Zyprexa -) 2.5 mg PO HS [facility] Last Admin: 04/04/19 21:02 Dose: 2.5 mg Pantoprazole Sodium (Protonix -) 20 mg PO DAILY [facility] Last Admin: 04/04/19 10:00 Dose: 20 mg - Objective Vital Signs: Vital Signs Temperature 98.5 F 04/05/19 06:26 Pulse Rate 66 04/05/19 06:26 Respiratory Rate 18 04/05/19 06:26 Blood Pressure 101/59 L 04/05/19 06:26 O2 Sat by Pulse Oximetry (%) 99 04/04/19 20:49 Constitutional: Yes: No Distress, Calm Eyes: Yes: Conjunctiva Clear HENT: Yes: Atraumatic Neck: Yes: Supple Cardiovascular: Yes: Regular Rate and Rhythm Respiratory: Yes: CTA Bilaterally Gastrointestinal: Yes: Soft. No: Tenderness Genitourinary: No: Hematuria Musculoskeletal: No: Joint Stiffness, Joint Swelling Extremities: No: Cold, Cool Edema: No Integumentary: Yes: Rash (chronic RLE wax / wanes) Neurological: Yes: Alert ...Motor Strength: WNL Psychiatric: Yes: Alert Labs: CBC, BMP 04/04/19 05:29 04/04/19 05:29 INR, PTT INR 1.14 (0.83-1.09) H 04/01/19 18:35 - ....Imaging Other: Report Reviewed Assessment/Plan 73F PMH CLL, pancytopenia, CHF, HTN, dementia (AAOx2 at baseline), HBV brought in for anxiety agitation found to have low grade fever; pt has h/o recurrent UTIs and leg cellulitis; cultures noted; IV ATB/ heme onc f/u PT and CM eval d/w pt and staff; d/w pt's daughter Dayana will try for SNF
[2019-04-05 07:25] LABS: BASO % 0.5 % (0-2.0); EOS % 1.4 % (0-4.5); HEMATOCRIT 23.3 % (32.4-45.2); HEMOGLOBIN 7.8 GM/dL (10.7-15.3); LYMPH % 14.9 % (8-40); MCH 27.9 pg (25.7-33.7); MCHC 33.7 g/dl (32.0-36.0); MONO % 37.3 % (3.8-10.2); NEUT % 45.9 % (42.8-82.8); PLATELET COUNT 61 K/MM3 (134-434); RDW 15.8 % (11.6-15.6); WHITE BLOOD COUNT 6.7 K/mm3 (4.0-10.0)
[2019-04-05 08:12] LABS: ALBUMIN 2.7 g/dl (3.4-5.0); BILIRUBIN,TOTAL 0.4 mg/dL (0.2-1); BLOOD UREA NITROGEN 23.3 mg/dL (7-18); CREATININE 1.4 mg/dL (0.55-1.3); POTASSIUM 4.5 mmol/L (3.5-5.1); TOT PROT 5.5 g/dl (6.4-8.2)
[2019-04-05] MEDS ORDERED: DEXTROSE 5%-WATER - 50 ML IVPB ONE (08:29)
[2019-04-05] MEDS ORDERED: cefTRIAXone SODIUM 1 GM VIAL ONE (08:29)
[2019-04-05] MEDS ORDERED: PT OWN MED DRAWER 7, Y5N ONE ×2 (08:29→09:11)
[2019-04-05] MEDS: CEFTRIAXONE 1 GM in DEXTROSE 5%-WATER - 50 ML IVPB SCH (09:01)
[2019-04-05] MEDS: lamiVUDine 10 MG/1 ML BULK BOTTLE PO SCH (09:11)
[2019-04-05] MEDS: PANTOPRAZOLE 20 MG TABLET (FP) PO SCH (09:11)
[2019-04-05 11:00] LABS: ANISOCYTOSIS 0; MACROCYTOSIS 0; PLATELET ESTIMATE DECREASED
--- NOTE | 2019-04-05 15:29 | PN ---
Progress Note (short form) - Note Progress Note: Renal follow up for CKD Seen and examined at the bedside awake and alert offers no acute complaints making urine no flank pain no fever or chills Vital Signs Temperature 98.1 F 04/05/19 09:02 Pulse Rate 71 04/05/19 09:02 Respiratory Rate 16 04/05/19 09:02 Blood Pressure 118/53 L 04/05/19 09:02 O2 Sat by Pulse Oximetry (%) 99 04/05/19 09:02 Intake & Output 04/02/19 04/03/19 04/04/19 04/05/19 23:59 23:59 23:59 23:59 Intake Total 1585 240 770 570 Balance 1585 240 770 570 Weight 53.694 kg 52.617 kg 53.433 kg 54.159 kg NAD AAOx 1 neck supple, no JVD RRR CTA soft NT/ND no LE edema, clubbing or cyanosis no bladder distension CBC, BMP 04/05/19 06:20 04/05/19 06:20 Current Medications Acetaminophen (Tylenol -) 650 mg PO Q6H PRN PRN Reason: FEVER Cyclosporine (Sandimmune) 100 mg PO DAILY [facility] Last Admin: 04/05/19 09:11 Dose: 100 mg Ceftriaxone Sodium 1 gm/ (Dextrose) 50 mls @ 100 mls/hr IVPB DAILY [facility] Last Admin: 04/05/19 09:01 Dose: 100 mls/hr Lamivudine (Epivir Oral Solution -) 100 mg PO DAILY [facility] Last Admin: 04/05/19 09:11 Dose: 100 mg Olanzapine (Zyprexa -) 2.5 mg PO HS [facility] Last Admin: 04/04/19 21:02 Dose: 2.5 mg Pantoprazole Sodium (Protonix -) 20 mg PO DAILY [facility] Last Admin: 04/05/19 09:11 Dose: 20 mg 73 year old woman with history of CLL, panytopenia, CHF, hypertension, CKD, Hydronephrosis who presented from home with non-specific complaints and noted to have low grade fever and Cr of 1.7. 1. CKD stage 3b (Cr has been in the range of 1.4-1.7 over the past 3-4 months) 2. Unilateral hydronephrosis 3. Low grade fever 4. CLL 5. Anemia 6. CHF Serum Cr slightly improved No overt electrolyte or acid/base disturbance. Pt appears euvolemic. Renal US to access for any changes in kidney size pending Continue empiric antibiotics as per PMD Trend H/H. Trend renal function and electrolytes daily. Tr Duran DO
[2019-04-05] MEDS: OLANZapine 2.5 MG TABLET PO SCH (21:46)
--- NOTE | 2019-04-06 06:24 | PN ---
Progress Note, Physician Chief Complaint: in bed NAD VSS afebrile H&H better, PLT stable no bleed no fever no c/o - Current Medication List Current Medications: Active Medications Acetaminophen (Tylenol -) 650 mg PO Q6H PRN PRN Reason: FEVER Last Admin: 04/05/19 21:46 Dose: 650 mg Cyclosporine (Sandimmune) 100 mg PO DAILY [facility] Last Admin: 04/05/19 09:11 Dose: 100 mg Ceftriaxone Sodium 1 gm/ (Dextrose) 50 mls @ 100 mls/hr IVPB DAILY [facility] Last Admin: 04/05/19 09:01 Dose: 100 mls/hr Lamivudine (Epivir Oral Solution -) 100 mg PO DAILY [facility] Last Admin: 04/05/19 09:11 Dose: 100 mg Olanzapine (Zyprexa -) 2.5 mg PO HS [facility] Last Admin: 04/05/19 21:46 Dose: 2.5 mg Pantoprazole Sodium (Protonix -) 20 mg PO DAILY [facility] Last Admin: 04/05/19 09:11 Dose: 20 mg - Objective Vital Signs: Vital Signs Temperature 98.2 F 04/06/19 06:00 Pulse Rate 69 04/06/19 06:00 Respiratory Rate 18 04/06/19 06:00 Blood Pressure 156/70 04/06/19 06:00 O2 Sat by Pulse Oximetry (%) 99 04/05/19 21:00 Constitutional: Yes: No Distress Eyes: Yes: Conjunctiva Clear HENT: Yes: Atraumatic Neck: Yes: Supple Cardiovascular: Yes: Regular Rate and Rhythm Respiratory: Yes: CTA Bilaterally Gastrointestinal: Yes: Soft. No: Tenderness Genitourinary: No: Hematuria Musculoskeletal: No: Joint Stiffness, Joint Swelling Extremities: No: Cold, Cool Edema: No Integumentary: No: Rash, Venous Stasis Changes Neurological: Yes: Alert ...Motor Strength: WNL Psychiatric: Yes: Alert. No: Agitated Labs: CBC, BMP 04/05/19 06:20 04/05/19 06:20 INR, PTT INR 1.14 (0.83-1.09) H 04/01/19 18:35 - ....Imaging Other: Report Reviewed Assessment/Plan 73F PMH CLL, pancytopenia, CHF, HTN, dementia (AAOx2 at baseline), HBV brought in for anxiety agitation found to have low grade fever; pt has h/o recurrent UTIs and leg cellulitis; cultures noted; IV ATB/ ID heme onc f/u PT and CM eval d/w pt and staff; d/w pt's daughter Dayana will try for SNF
[2019-04-06 07:23] LABS: EOS % 1.2 % (0-4.5); HEMATOCRIT 24.9 % (32.4-45.2); HEMOGLOBIN 8.4 GM/dL (10.7-15.3); LYMPH % 15.9 % (8-40); MCHC 33.6 g/dl (32.0-36.0); MEAN CELL VOLUME 83.4 fl (80-96); MEAN PLT VOLUME 8.1 fl (7.5-11.1); MONO % 38.2 % (3.8-10.2); NEUT % 44.7 % (42.8-82.8); PLATELET COUNT 66 K/MM3 (134-434); RBC 2.98 M/mm3 (3.60-5.2); RDW 15.9 % (11.6-15.6); WHITE BLOOD COUNT 7.8 K/mm3 (4.0-10.0)
[2019-04-06 07:47] LABS: BLOOD UREA NITROGEN 23.6 mg/dL (7-18); CALCIUM 9.2 mg/dL (8.5-10.1); CREATININE 1.3 mg/dL (0.55-1.3); POTASSIUM 4.2 mmol/L (3.5-5.1)
[2019-04-06 08:21] LABS: EPI CELLS 1.1 /HPF (0-5/HPF); HYALINE CASTS 8 /lpf (0-8); URINE APPEARANCE CLOUDY; URINE BACTERIA 5604.9 /hpf (NEGATIVE); URINE BILIRUBIN NEGATIVE (NEGATIVE); URINE COLOR YELLOW; URINE GLUCOSE (UA) NEGATIVE (NEGATIVE); URINE KETONE NEGATIVE (NEGATIVE); URINE LEUK ESTERASE 3+ (NEGATIVE); URINE NITRITE POSITIVE (NEGATIVE); URINE PROTEIN 1+ (NEGATIVE); URINE RBC 3 /hpf (0-4); URINE UROBILINOGEN 0.2 mg/dL (0.2-1.0); URINE WBC 105 /hpf (0-5)
[2019-04-06] MEDS ORDERED: PT OWN MED DRAWER 7, Y5N ONE (10:20)
[2019-04-06] MEDS ORDERED: cefTRIAXone SODIUM 1 GM VIAL ONE (10:20)
[2019-04-06] MEDS ORDERED: DEXTROSE 5%-WATER - 50 ML IVPB ONE (10:20)
[2019-04-06] MEDS: lamiVUDine 10 MG/1 ML BULK BOTTLE PO SCH (10:24)
[2019-04-06] MEDS: CEFTRIAXONE 1 GM in DEXTROSE 5%-WATER - 50 ML IVPB SCH (10:24)
[2019-04-06] MEDS: PANTOPRAZOLE 20 MG TABLET (FP) PO SCH (10:24)
--- NOTE | 2019-04-06 12:43 | PN ---
Physical Exam: SUBJECTIVE: Patient seen and examined no new complains denies any fever , chills, N/V/D/C plt drop to 66 will discuss with CDr manning ceftriaxone as reason and agree with dc ceftriaxone OBJECTIVE: Vital Signs Period Temp Pulse Resp BP Sys/Borjas Pulse Ox Last 24 Hr 97.9 F-98.3 F 66-83 16-20 131-161/56-76 99-99 GENERAL: awake alert x2 no time HEAD: Normal with no signs of trauma. EYES: PERRL, extraocular movements intact, sclera anicteric,lower blephara erythema , ENT: moist mucous membranes.no oral thrush or mucositis NECK: supple. anterior neck ipper chest mild pupura LUNGS: CTA B/L HEART: Regular rate and rhythm, S1, S2 ,soft murmur LUSB , ABDOMEN: Soft, nontender, nondistended, normoactive bowel sounds, NEUROLOGICAL: no focal deficit . Normal speech, LE : no edema , left lower anterior chin with erythema/cellulites , mild spot on the rigt leg PSYCH: Normal mood, normal affect. SKIN: Warm, dry,hypopigmentaion spots on the back port on right anterior chest left arm hematoma , right arm hematoma lymph nodes : no nodules palpated submandibular , inguinal or axillary breast exam with no masses palpated Laboratory Results - last 24 hr 04/06/19 04/06/19 04/06/19 06:10 06:10 06:23 WBC 7.8 RBC 2.98 L Hgb 8.4 L Hct 24.9 L MCV 83.4 MCH 28.0 MCHC 33.6 RDW 15.9 H Plt Count 66 L MPV 8.1 D Absolute Neuts (auto) 3.5 Neutrophils % 44.7 Lymphocytes % 15.9 Monocytes % 38.2 H Eosinophils % 1.2 Basophils % 0.0 Nucleated RBC % 0 Sodium 141 Potassium 4.2 Chloride 107 Carbon Dioxide 29 Anion Gap 6 L BUN 23.6 H Creatinine 1.3 Est GFR (CKD-EPI)AfAm 47.13 Est GFR (CKD-EPI)NonAf 40.67 Random Glucose 99 Calcium 9.2 Urine Color Yellow Urine Appearance Cloudy Urine pH 6.0 Ur Specific [place] 1.011 Urine Protein 1+ H Urine Glucose (UA) Negative Urine Ketones Negative Urine Blood Trace Urine Nitrite Positive H Urine Bilirubin Negative Urine Urobilinogen 0.2 Ur Leukocyte Esterase 3+ H Urine WBC (Auto) 105 Urine RBC (Auto) 3 Urine Casts (Auto) 8 U Epithel Cells (Auto) 1.1 Urine Bacteria (Auto) 5604.9 Active Medications Generic Name Dose Route Start Last Admin Trade Name Ashokq PRN Reason Stop Dose Admin Acetaminophen 650 mg 04/01/19 22:35 04/05/19 21:46 Tylenol - PO 650 mg Q6H PRN Administration FEVER Cyclosporine 100 mg 04/02/19 10:00 04/06/19 10:24 Sandimmune PO 100 mg DAILY [facility] Administration Ceftriaxone Sodium 1 gm/ 50 mls @ 100 mls/hr 04/02/19 10:00 04/06/19 10:24 Dextrose IVPB 100 mls/hr DAILY [facility] Administration Lamivudine 100 mg 04/02/19 10:00 04/06/19 10:24 Epivir Oral Solution - PO 100 mg DAILY [facility] Administration Olanzapine 2.5 mg 04/02/19 22:00 04/05/19 21:46 Zyprexa - PO 2.5 mg HS [facility] Administration Pantoprazole Sodium 20 mg 04/02/19 10:00 04/06/19 10:24 Protonix - PO 20 mg DAILY [facility] Administration CBC, BMP 04/06/19 06:10 04/06/19 06:10 ASSESSMENT/PLAN: 73 y/o lady with PMH CLL, pancytopenia, newly diagnosed with MDS, CHF, HTN, dementia (AAOx2 at baseline), HBV brought in by her ex-partner for "nerves" x "awhile." Triage VS tachycardic and borderline fever. # plt drop discussed with Dr Manning will dc ceftriaxone as might participate with thrombocytopenia # MDS , recently diagnosed, with bands 16-14 %, normal cytogenetics /Fish , maintain HGb > 7 # CLL ,minor component <5% on marrow. monitor # Anemia H/H 8.4/24.9 , no active bleeding monitor H/H daily # thrombocytopenia Plt 66 dc ceftriaxone #dementia # Cellulitis vs chronic erythema cont ceftriaxone , ID on board , blood cx no growth so far # EBER on CKD , renal consult #Hypokalemia cont lamivudin, cyclosporin and zyprexa Visit type - Emergency Visit Emergency Visit: Yes ED Registration Date: 04/01/19 Care time: The patient presented to the Emergency Department on the above date and was hospitalized for further evaluation of their emergent condition. - New Patient This patient is new to me today: No - Critical Care Critical Care patient: No - Discharge Referral Referred to [facility] Med [facility] No ATTENDING PHYSICIAN STATEMENT I saw and evaluated the patient. I reviewed the resident's note and discussed the case with the resident. I agree with the resident's findings and plan as documented. SUBJECTIVE: OBJECTIVE: ASSESSMENT AND PLAN:
[2019-04-06 15:40] LABS: ANISOCYTOSIS 2+
[2019-04-06 15:49] LABS: MACROCYTOSIS 0; PLATELET ESTIMATE DECREASED
--- NOTE | 2019-04-06 19:55 | PN ---
Progress Note (short form) - Note Progress Note: I have seen and examined patient with Dr. Mark Hernandez. Agree with his note and plan S: Doing well. No complaints O: Last Vital Signs Temp Pulse Resp BP Pulse Ox 98.0 F 72 20 135/74 99 04/06/19 18:00 04/06/19 18:00 04/06/19 18:00 04/06/19 18:00 04/06/19 10:00 GENERAL: awake alert x2 no time HEAD: Normal with no signs of trauma. EYES: PERRL, extraocular movements intact, sclera anicteric,lower blephara erythema , ENT: moist mucous membranes.no oral thrush or mucositis NECK: supple. anterior neck ipper chest mild pupura LUNGS: CTA B/L HEART: Regular rate and rhythm, S1, S2 ,soft murmur LUSB , ABDOMEN: Soft, nontender, nondistended, normoactive bowel sounds, NEUROLOGICAL: no focal deficit . Normal speech, LE : no edema , left lower anterior leg with erythema/cellulites , mild spot on the rigt leg PSYCH: Normal mood, normal affect. SKIN: Warm, dry,hypopigmentaion spots on the back port on right anterior chest left arm hematoma , right arm hematoma 04/06/19 06:10 04/06/19 06:10 Current Medications Acetaminophen (Tylenol -) 650 mg PO Q6H PRN PRN Reason: FEVER Last Admin: 04/05/19 21:46 Dose: 650 mg Cyclosporine (Sandimmune) 100 mg PO DAILY [facility] Last Admin: 04/06/19 10:24 Dose: 100 mg Lamivudine (Epivir Oral Solution -) 100 mg PO DAILY [facility] Last Admin: 04/06/19 10:24 Dose: 100 mg Olanzapine (Zyprexa -) 2.5 mg PO HS [facility] Last Admin: 04/05/19 21:46 Dose: 2.5 mg Pantoprazole Sodium (Protonix -) 20 mg PO DAILY [facility] Last Admin: 04/06/19 10:24 Dose: 20 mg ASSESSMENT/PLAN: 73 y/o lady with PMH CLL, pancytopenia, newly diagnosed with MDS, CHF, HTN, dementia (AAOx2 at baseline), HBV brought in by her ex-partner for possible altered mental status. Treated for possible cellulitis with Ceftriaxone. Now with blast count rising Recommend: 1) Blast count rising to 20% by manual diff. Will obtain Flow Cytometry and if blast increase confirmed will transfer to 7 W given that MDS is now progressing to AML and will require therapy with hypomethylating agents and venetoclax. Will obtain mutational profile as well as she may be a candidate for targeted agents 2) Transfusion support. Hb above 7 and Plts above 10,000 (if no bleeding or fever) 3) Rest per Dr. Hernandez's note. Problem List - Problems (1) Anemia Code(s): D64.9 - ANEMIA, UNSPECIFIED Qualifiers: Anemia type: unspecified type Qualified Code(s): D64.9 - Anemia, unspecified (2) Chronic lymphocytic leukemia Code(s): C91.10 - CHRONIC LYMPHOCYTIC LEUK OF B-CELL TYPE NOT ACHIEVE REMIS (3) Myelodysplasia (myelodysplastic syndrome) Code(s): D46.9 - MYELODYSPLASTIC SYNDROME, UNSPECIFIED
[2019-04-06] MEDS: OLANZapine 2.5 MG TABLET PO SCH (21:09)
[2019-04-07] MEDS ORDERED: PT OWN MED DRAWER 7, Y5N ONE (09:32)
[2019-04-07] MEDS: PANTOPRAZOLE 20 MG TABLET (FP) PO SCH (09:53)
[2019-04-07] MEDS: lamiVUDine 10 MG/1 ML BULK BOTTLE PO SCH (09:53)
--- NOTE | 2019-04-07 13:21 | DS ---
Physical Examination Vital Signs: Vital Signs Temperature 98.8 F 04/07/19 08:57 Pulse Rate 70 04/07/19 08:57 Respiratory Rate 18 04/07/19 08:57 Blood Pressure 123/52 L 04/07/19 08:57 O2 Sat by Pulse Oximetry (%) 99 04/06/19 21:00 Findings/Remarks: stable no new /co d/w heme dr Garcia about further chemotx treatment, pt is challenging sec to noncompliance d/w ID dr Kothari UCx + for GNR h/o ESBL in urine, asymtpomatic no fever WBC NL; no treatment for now; ceftriaxine DCd sec to low PLT check CBC if stable DC home with VNS/PT TELETYPIST d/w staff and CM called daughter Dayana twice, calls were dropped she [place] she will call us back Constitutional: Yes: No Distress, Calm Eyes: Yes: Conjunctiva Clear HENT: Yes: Atraumatic Neck: Yes: Supple Cardiovascular: Yes: Regular Rate and Rhythm Respiratory: Yes: CTA Bilaterally Gastrointestinal: Yes: Soft. No: Tenderness Renal/: No: Hematuria Musculoskeletal: No: Joint Stiffness, Joint Swelling Extremities: No: Cold, Cool Edema: No Integumentary: Yes: Venous Stasis Changes (mild LLE) Neurological: Yes: Alert ...Motor Strength: WNL Psychiatric: Yes: Alert. No: Agitated, Suicidal Ideation Labs: CBC, BMP 04/06/19 06:10 04/06/19 06:10 Discharge Summary Problems reviewed: Yes Reason For Visit: SEPSIS, CELLULITIS Current Active Problems Cellulitis (Acute) Chronic lymphocytic leukemia (Acute) Myelodysplasia (myelodysplastic syndrome) (Acute) Sepsis (Acute) Procedures: Principal: 73 YOF CLL and blastic transformation admitted with agitation, cellulitis / leg (chronic ) and chronic UTI; anemia pancytopenia; h/ o hep B also and anxiety Other Procedures: seen by ID, meka - IV ceftriaxone, improved; Hospital Course: improved with above; seen by CM for DC planning; DC home and f/u as advised Condition: Stable - Instructions Diet, Activity, Other Instructions: f/u PCP, heme onc and labs in 1-2 weeks after DC RTER if worse or recurrent c/o good po hydration home PT and VNS , TELETYPIST Referrals: Sabi Jordan [Staff Physician] - Stu Garcia MD [Staff Physician] - Disposition: VNS/HOME HEALTH CARE - Home Medications Comprehensive Discharge Medication List: Ambulatory Orders Pantoprazole Sodium [Protonix -] 20 mg PO DAILY 10/08/18 Lamivudine [Lamivudine Hbv] 100 mg PO DAILY 11/01/18 Cyclosporine 100 mg PO DAILY 03/16/19 Olanzapine [Zyprexa -] 2.5 mg PO HS #30 tablet MDD 1 03/22/19
--- NOTE | 2019-04-07 13:40 | PN ---
Progress Note (short form) - Note Progress Note: Renal follow up for CKD Seen and examined at the bedside awake and alert offers no acute complaints Vital Signs Temperature 98.8 F 04/07/19 08:57 Pulse Rate 70 04/07/19 08:57 Respiratory Rate 18 04/07/19 08:57 Blood Pressure 123/52 L 04/07/19 08:57 O2 Sat by Pulse Oximetry (%) 99 04/06/19 21:00 Intake & Output 04/04/19 04/05/19 04/06/19 04/07/19 23:59 23:59 23:59 23:59 Intake Total 770 1790 1660 200 Balance 770 1790 1660 200 Weight 53.433 kg 54.159 kg 53.615 kg 53.342 kg NAD AAOx 1 neck supple, no JVD RRR CTA soft NT/ND no LE edema, clubbing or cyanosis no bladder distension CBC, BMP 04/06/19 06:10 04/06/19 06:10 Current Medications Acetaminophen (Tylenol -) 650 mg PO Q6H PRN PRN Reason: FEVER Last Admin: 04/05/19 21:46 Dose: 650 mg Cyclosporine (Sandimmune) 100 mg PO DAILY [facility] Last Admin: 04/07/19 09:53 Dose: 100 mg Lamivudine (Epivir Oral Solution -) 100 mg PO DAILY [facility] Last Admin: 04/07/19 09:53 Dose: 100 mg Olanzapine (Zyprexa -) 2.5 mg PO HS [facility] Last Admin: 04/06/19 21:09 Dose: 2.5 mg Pantoprazole Sodium (Protonix -) 20 mg PO DAILY [facility] Last Admin: 04/07/19 09:53 Dose: 20 mg 73 year old woman with history of CLL, panytopenia, CHF, hypertension, CKD, Hydronephrosis who presented from home with non-specific complaints and noted to have low grade fever and Cr of 1.7. 1. CKD stage 3b (Cr has been in the range of 1.4-1.7 over the past 3-4 months) 2. Unilateral hydronephrosis 3. Low grade fever 4. CLL 5. Anemia 6. CHF Renal function improved and stable No overt electrolyte or acid/base disturbance. Pt appears euvolemic. Renal US shows unilateral hydronephrosis unchanged from prior. Has non-obstructing stone, would benefit from outpatient urology follow up Discharge planning as per primary will sign off case at this time Tr Duran DO
--- NOTE | 2019-04-07 15:25 | PN ---
Progress Note (short form) - Note Progress Note: Patient seen and examined Discussed with Dr. Jordan Previously discussed with daughter, Dayana. Confusion and dementia make aggressive intervention potentially problematic . For this reason, HMA +/_ venetoclax was not initially initiated Will need to make a decision about aggressive treatment as patient is transforming from MDS to AML Last Vital Signs Temp Pulse Resp BP Pulse Ox 97.8 F 76 18 122/61 98 04/07/19 14:13 04/07/19 14:13 04/07/19 14:13 04/07/19 14:13 04/07/19 09:00 HEENT: FELIBERTO, EOM Intact Oropharynx: No thrush, No mucositis Neck: Supple Nodes: Without adenopathy Breasts: Without masses Cor: RSR, No murmurs, No gallops Lungs: Clear to P&A Abd: Soft, Normal bowel sounds, No organomegaly Ext:No significant edema Skin: No rashes, Integument intact CBC, BMP 04/06/19 06:10 04/06/19 06:10 Current Medications Generic Name Dose Route Start Last Admin Trade Name Freq PRN Reason Stop Dose Admin Acetaminophen 650 mg 04/01/19 22:35 04/05/19 21:46 Tylenol - PO 650 mg Q6H PRN Administration FEVER Cyclosporine 100 mg 04/02/19 10:00 04/07/19 09:53 Sandimmune PO 100 mg DAILY [facility] Administration Lamivudine 100 mg 04/02/19 10:00 04/07/19 09:53 Epivir Oral Solution - PO 100 mg DAILY [facility] Administration Olanzapine 2.5 mg 04/02/19 22:00 04/06/19 21:09 Zyprexa - PO 2.5 mg HS [facility] Administration Pantoprazole Sodium 20 mg 04/02/19 10:00 04/07/19 09:53 Protonix - PO 20 mg DAILY [facility] Administration MDS--> transformation Past history of CLL Pancytopenia For now pending Flow - cyclosporine.
--- NOTE | 2019-04-07 15:41 | CON.CARD ---
Consult Consult Specialty:: Cardiology - History of Present Illness History of Present Illness: 73F PMH CLL, pancytopenia, CHF, HTN, mild dementia (AOx2 at baseline), HBV brought in by her ex- for "nerves" x low grade fever. Pt is a poor historian and denies everything. Denies f/c, cp/sob/palpitations, n/v, urinary sx, numbness/tingling, focal weakness, vision/hearing changes. Denies recent falls. Allergy to Vancomycin Lives at home alone, daughter comes daily to assist. 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 Cardio/Vascular: Yes: HTN Gastrointestinal: Yes: Diverticulosis (on CT scan), GI Bleed (02/13 post- sphincterotomy bleed) Hepatobiliary: Yes: Cholelithiasis, Choledocholithiasis (with cholangitis 02/13 requring ERCP & sphincterotomy complicated by a post-sphincterotomy bleed ) Renal/: Yes: Renal Calculi Psych: Yes: Anxiety Musculoskeletal: Yes: Chronic low back pain - Past Surgical History Past Surgical History: Yes: Tonsillectomy, Upper Endoscopy - Alcohol/Substance Use Hx Alcohol Use: No History of Substance Use: reports: None - Smoking History Smoking history: Never smoked Have you smoked in the past 12 months: No Aproximately how many cigarettes per day: 0 - Social History Usual Living Arrangement: With Child ADL: Independent 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 of Recent Travel: No Home Medications - Allergies Allergies/Adverse Reactions: Allergies Allergy/AdvReac Type Severity Reaction Status Date / Time vancomycin AdvReac Verified 04/01/19 17:24 - Home Medications Home Medications: Ambulatory Orders Pantoprazole Sodium [Protonix -] 20 mg PO DAILY 10/08/18 Lamivudine [Lamivudine Hbv] 100 mg PO DAILY 11/01/18 Cyclosporine 100 mg PO DAILY 03/16/19 Olanzapine [Zyprexa -] 2.5 mg PO HS #30 tablet MDD 1 03/22/19 Review of Systems - Review of Systems Constitutional: reports: No Symptoms Eyes: reports: No Symptoms HENT: reports: No Symptoms Neck: reports: No Symptoms Cardiovascular: reports: No Symptoms Gastrointestinal: reports: No Symptoms Genitourinary: reports: No Symptoms Breasts: reports: No Symptoms Reported Musculoskeletal: reports: No Symptoms Integumentary: reports: No Symptoms Neurological: reports: No Symptoms Endocrine: reports: No Symptoms Hematology/Lymphatic: reports: No Symptoms Psychiatric: reports: No Symptoms Vital Signs: Vital Signs Temperature 97.8 F 04/07/19 14:13 Pulse Rate 76 04/07/19 14:13 Respiratory Rate 18 04/07/19 14:13 Blood Pressure 122/61 04/07/19 14:13 O2 Sat by Pulse Oximetry (%) 98 04/07/19 09:00 Constitutional: Yes: Well Nourished, No Distress, Calm Eyes: Yes: WNL, Conjunctiva Clear, EOM Intact HENT: Yes: WNL, Atraumatic, Normocephalic Neck: Yes: WNL, Supple, Trachea Midline Respiratory: Yes: WNL, Regular, CTA Bilaterally Gastrointestinal: Yes: WNL, Normal Bowel Sounds Renal/: Yes: WNL Cardiovascular: Yes: WNL, Regular Rate and Rhythm Musculoskeletal: Yes: WNL Extremities: Yes: WNL Integumentary: Yes: WNL Neurological: Yes: WNL, Alert, Oriented ...Motor Strength: WNL Psychiatric: Yes: WNL, Alert, Oriented - Other Data Labs, Other Data: CBC, BMP 04/06/19 06:10 04/06/19 06:10 INR, PTT INR 1.14 (0.83-1.09) H 04/01/19 18:35 Imaging - Results Chest X-ray: Image Reviewed EKG: Image Reviewed (nsr sinus arhythmia) Problem List - Problems (1) Cellulitis Code(s): L03.90 - CELLULITIS, UNSPECIFIED Qualifiers: Site of cellulitis: extremity Site of cellulitis of extremity: lower extremity Laterality: right Qualified Code(s): L03.115 - Cellulitis of right lower limb (2) Chronic lymphocytic leukemia Code(s): C91.10 - CHRONIC LYMPHOCYTIC LEUK OF B-CELL TYPE NOT ACHIEVE REMIS (3) Myelodysplasia (myelodysplastic syndrome) Code(s): D46.9 - MYELODYSPLASTIC SYNDROME, UNSPECIFIED (4) Sepsis Code(s): A41.9 - SEPSIS, UNSPECIFIED ORGANISM Qualifiers: Sepsis type: sepsis due to unspecified organism Sepsis acute organ dysfunction status: unspecified Qualified Code(s): A41.9 - Sepsis, unspecified organism (5) EBER (acute kidney injury) Code(s): N17.9 - ACUTE KIDNEY FAILURE, UNSPECIFIED (6) Agitation Code(s): R45.1 - RESTLESSNESS AND AGITATION (7) Allergy to antibiotic Code(s): Z88.1 - ALLERGY STATUS TO OTHER ANTIBIOTIC AGENTS STATUS (8) Altered mental state Code(s): R41.82 - ALTERED MENTAL STATUS, UNSPECIFIED Qualifiers: Altered mental status type: unspecified Qualified Code(s): R41.82 - Altered mental status, unspecified (9) Anemia Code(s): D64.9 - ANEMIA, UNSPECIFIED Qualifiers: Anemia type: unspecified type Qualified Code(s): D64.9 - Anemia, unspecified (10) Bacteremia Code(s): R78.81 - BACTEREMIA (11) CKD (chronic kidney disease) Code(s): N18.9 - CHRONIC KIDNEY DISEASE, UNSPECIFIED (12) CLL (chronic lymphocytic leukemia) Code(s): C91.10 - CHRONIC LYMPHOCYTIC LEUK OF B-CELL TYPE NOT ACHIEVE REMIS (13) Cellulitis, abdominal wall Code(s): L03.311 - CELLULITIS OF ABDOMINAL WALL (14) Choledocholithiasis Code(s): K80.50 - CALCULUS OF BILE DUCT W/O CHOLANGITIS OR CHOLECYST W/O OBST (15) Cholelithiasis Code(s): K80.20 - CALCULUS OF GALLBLADDER W/O CHOLECYSTITIS W/O OBSTRUCTION (16) Chronic ITP (idiopathic thrombocytopenic purpura) Code(s): D69.3 - IMMUNE THROMBOCYTOPENIC PURPURA (17) Chronic lymphocytic leukemia Code(s): C91.90 - LYMPHOID LEUKEMIA, UNSPECIFIED NOT HAVING ACHIEVED REMISSION (18) Colonic thickening Code(s): K63.9 - DISEASE OF INTESTINE, UNSPECIFIED (19) Cough Code(s): R05 - COUGH (20) Cyst of left kidney Code(s): N28.1 - CYST OF KIDNEY, ACQUIRED (21) Diverticulitis Code(s): K57.92 - DVTRCLI OF INTEST, PART UNSP, W/O PERF OR ABSCESS W/O BLEED (22) Epistaxis Code(s): R04.0 - EPISTAXIS (23) Fever Code(s): R50.9 - FEVER, UNSPECIFIED Qualifiers: Fever type: unspecified Qualified Code(s): R50.9 - Fever, unspecified (24) GI bleed Code(s): K92.2 - GASTROINTESTINAL HEMORRHAGE, UNSPECIFIED (25) Hemolytic anemia Code(s): D58.9 - HEREDITARY HEMOLYTIC ANEMIA, UNSPECIFIED (26) Hepatitis B Code(s): B19.10 - UNSPECIFIED VIRAL HEPATITIS B WITHOUT HEPATIC COMA (27) Hydronephrosis Code(s): N13.30 - UNSPECIFIED HYDRONEPHROSIS (28) Hyperbilirubinemia Code(s): E80.6 - OTHER DISORDERS OF BILIRUBIN METABOLISM (29) 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 Code(s): D69.59 - OTHER SECONDARY THROMBOCYTOPENIA (30) Jaundice Code(s): R17 - UNSPECIFIED JAUNDICE (31) Leukopenia Code(s): D72.819 - DECREASED WHITE BLOOD CELL COUNT, UNSPECIFIED Qualifiers: Leukopenia type: unspecified Qualified Code(s): D72.819 - Decreased white blood cell count, unspecified (32) Low hemoglobin Code(s): D64.9 - ANEMIA, UNSPECIFIED (33) Lung nodule, multiple Code(s): R91.8 - OTHER NONSPECIFIC ABNORMAL FINDING OF LUNG FIELD (34) MDS (myelodysplastic syndrome) Code(s): D46.9 - MYELODYSPLASTIC SYNDROME, UNSPECIFIED (35) Mesenteric mass Code(s): K63.9 - DISEASE OF INTESTINE, UNSPECIFIED (36) Nephrolithiasis Code(s): N20.0 - CALCULUS OF KIDNEY (37) Neutropenia Code(s): D70.9 - NEUTROPENIA, UNSPECIFIED (38) Neutropenic fever Code(s): D70.9 - NEUTROPENIA, UNSPECIFIED; R50.81 - FEVER PRESENTING WITH CONDITIONS CLASSIFIED ELSEWHERE (39) Otorrhea, right ear Code(s): H92.11 - OTORRHEA, RIGHT EAR (40) PAD (peripheral artery disease) Code(s): I73.9 - PERIPHERAL VASCULAR DISEASE, UNSPECIFIED (41) Pancytopenia Code(s): D61.818 - OTHER PANCYTOPENIA (42) Positive blood cultures Code(s): R78.81 - BACTEREMIA (43) SIRS (systemic inflammatory response syndrome) Code(s): R65.10 - SIRS OF NON-INFECTIOUS ORIGIN W/O ACUTE ORGAN DYSFUNCTION (44) Scleral icterus Code(s): R17 - UNSPECIFIED JAUNDICE (45) Staghorn calculus Code(s): N20.0 - CALCULUS OF KIDNEY (46) Thrombocytopenia Code(s): D69.6 - THROMBOCYTOPENIA, UNSPECIFIED (47) Thrombocytopenia Code(s): D69.6 - THROMBOCYTOPENIA, UNSPECIFIED (48) UTI (urinary tract infection) Code(s): N39.0 - URINARY TRACT INFECTION, SITE NOT SPECIFIED Qualifiers: Urinary tract infection type: site unspecified Hematuria presence: without hematuria Qualified Code(s): N39.0 - Urinary tract infection, site not specified (49) Vomiting Code(s): R11.10 - VOMITING, UNSPECIFIED Qualifiers: Vomiting type: unspecified Vomiting Intractability: unspecified Nausea presence: with nausea Qualified Code(s): R11.2 - Nausea with vomiting, unspecified (50) Anxiety disorder Code(s): F41.9 - ANXIETY DISORDER, UNSPECIFIED (51) CHF (congestive heart failure) Code(s): I50.9 - HEART FAILURE, UNSPECIFIED (52) CLL (chronic lymphocytic leukemia) Code(s): C91.10 - CHRONIC LYMPHOCYTIC LEUK OF B-CELL TYPE NOT ACHIEVE REMIS (53) Diastolic CHF Code(s): I50.30 - UNSPECIFIED DIASTOLIC (CONGESTIVE) HEART FAILURE (54) HTN (hypertension) Code(s): I10 - ESSENTIAL (PRIMARY) HYPERTENSION (55) HTN (hypertension) Code(s): I10 - ESSENTIAL (PRIMARY) HYPERTENSION Assessment/Plan MDS CKD CLL Anemia PAD Plan; Cardiac dyson stable telemetry and EKG unremarkable . cont supportive rx.
[2019-04-07 15:51] VITALS: BMI 18.8
[2019-04-07] MEDS ORDERED: ALPRAZolam 0.25 MG TABLET PO ONE (17:15)
[2019-04-07 17:55] LABS: HEMATOCRIT 26.2 % (32.4-45.2); HEMOGLOBIN 8.8 GM/dL (10.7-15.3); MCH 28.1 pg (25.7-33.7); MCHC 33.6 g/dl (32.0-36.0); MEAN CELL VOLUME 83.8 fl (80-96); RBC 3.13 M/mm3 (3.60-5.2); RDW 15.7 % (11.6-15.6)
[2019-04-07 20:38] LABS: ANISOCYTOSIS 1+; MACROCYTOSIS 0; PLATELET ESTIMATE DECREASED
[2019-04-07 20:42] LABS: MEAN PLT VOLUME 8.2 fl (7.5-11.1); PLATELET COUNT 82 K/MM3 (134-434)
[2019-04-07] MEDS: OLANZapine 2.5 MG TABLET PO SCH (22:13)
[2019-04-08] MEDS ORDERED: PT OWN MED DRAWER 7, Y5N ONE (09:06)
[2019-04-08] MEDS: PANTOPRAZOLE 20 MG TABLET (FP) PO SCH (09:26)
[2019-04-08] MEDS: lamiVUDine 10 MG/1 ML BULK BOTTLE PO SCH (09:26)
--- NOTE | 2019-04-08 09:27 | PN ---
Progress Note, Physician History of Present Illness: 73F PMH CLL, pancytopenia, CHF, HTN, mild dementia (AOx2 at baseline), HBV brought in by her ex- for "nerves" x low grade fever. Pt is a poor historian and denies everything. Denies f/c, cp/sob/palpitations, n/v, urinary sx, numbness/tingling, focal weakness, vision/hearing changes. Denies recent falls. Allergy to Vancomycin Lives at home alone, daughter comes daily to assist. PMH CRI HTN Hyperlipidemia Negative MIBI stress test June 2013 Nephroliyhiasis PAD 50-70 ICA stenosis 2012 - Current Medication List Current Medications: Active Medications Acetaminophen (Tylenol -) 650 mg PO Q6H PRN PRN Reason: FEVER Last Admin: 04/05/19 21:46 Dose: 650 mg Cyclosporine (Sandimmune) 100 mg PO DAILY [facility] Last Admin: 04/07/19 09:53 Dose: 100 mg Lamivudine (Epivir Oral Solution -) 100 mg PO DAILY [facility] Last Admin: 04/07/19 09:53 Dose: 100 mg Olanzapine (Zyprexa -) 2.5 mg PO HS [facility] Last Admin: 04/07/19 22:13 Dose: 2.5 mg Pantoprazole Sodium (Protonix -) 20 mg PO DAILY [facility] Last Admin: 04/07/19 09:53 Dose: 20 mg - Objective Vital Signs: Vital Signs Temperature 98.0 F 04/08/19 06:00 Pulse Rate 70 04/08/19 06:00 Respiratory Rate 18 04/08/19 06:00 Blood Pressure 118/67 04/08/19 06:00 O2 Sat by Pulse Oximetry (%) 98 04/07/19 21:00 Eyes: Yes: WNL, Conjunctiva Clear, EOM Intact HENT: Yes: WNL, Atraumatic, Normocephalic Neck: Yes: WNL, Supple, Trachea Midline Cardiovascular: Yes: WNL, Regular Rate and Rhythm Respiratory: Yes: WNL, Regular, CTA Bilaterally Gastrointestinal: Yes: WNL, Normal Bowel Sounds Genitourinary: Yes: WNL Musculoskeletal: Yes: WNL Extremities: Yes: WNL Edema: No Integumentary: Yes: WNL ...Motor Strength: WNL Psychiatric: Yes: WNL Labs: CBC, BMP 04/07/19 16:35 04/06/19 06:10 INR, PTT INR 1.14 (0.83-1.09) H 04/01/19 18:35 Problem List - Problems (1) Cellulitis Code(s): L03.90 - CELLULITIS, UNSPECIFIED Qualifiers: Site of cellulitis: extremity Site of cellulitis of extremity: lower extremity Laterality: right Qualified Code(s): L03.115 - Cellulitis of right lower limb (2) Chronic lymphocytic leukemia Code(s): C91.10 - CHRONIC LYMPHOCYTIC LEUK OF B-CELL TYPE NOT ACHIEVE REMIS (3) Myelodysplasia (myelodysplastic syndrome) Code(s): D46.9 - MYELODYSPLASTIC SYNDROME, UNSPECIFIED (4) Sepsis Code(s): A41.9 - SEPSIS, UNSPECIFIED ORGANISM Qualifiers: Sepsis type: sepsis due to unspecified organism Sepsis acute organ dysfunction status: unspecified Qualified Code(s): A41.9 - Sepsis, unspecified organism (5) EBER (acute kidney injury) Code(s): N17.9 - ACUTE KIDNEY FAILURE, UNSPECIFIED (6) Agitation Code(s): R45.1 - RESTLESSNESS AND AGITATION (7) Allergy to antibiotic Code(s): Z88.1 - ALLERGY STATUS TO OTHER ANTIBIOTIC AGENTS STATUS (8) Altered mental state Code(s): R41.82 - ALTERED MENTAL STATUS, UNSPECIFIED Qualifiers: Altered mental status type: unspecified Qualified Code(s): R41.82 - Altered mental status, unspecified (9) Anemia Code(s): D64.9 - ANEMIA, UNSPECIFIED Qualifiers: Anemia type: unspecified type Qualified Code(s): D64.9 - Anemia, unspecified (10) Bacteremia Code(s): R78.81 - BACTEREMIA (11) CKD (chronic kidney disease) Code(s): N18.9 - CHRONIC KIDNEY DISEASE, UNSPECIFIED (12) CLL (chronic lymphocytic leukemia) Code(s): C91.10 - CHRONIC LYMPHOCYTIC LEUK OF B-CELL TYPE NOT ACHIEVE REMIS (13) Cellulitis, abdominal wall Code(s): L03.311 - CELLULITIS OF ABDOMINAL WALL (14) Choledocholithiasis Code(s): K80.50 - CALCULUS OF BILE DUCT W/O CHOLANGITIS OR CHOLECYST W/O OBST (15) Cholelithiasis Code(s): K80.20 - CALCULUS OF GALLBLADDER W/O CHOLECYSTITIS W/O OBSTRUCTION (16) Chronic ITP (idiopathic thrombocytopenic purpura) Code(s): D69.3 - IMMUNE THROMBOCYTOPENIC PURPURA (17) Chronic lymphocytic leukemia Code(s): C91.90 - LYMPHOID LEUKEMIA, UNSPECIFIED NOT HAVING ACHIEVED REMISSION (18) Colonic thickening Code(s): K63.9 - DISEASE OF INTESTINE, UNSPECIFIED (19) Cough Code(s): R05 - COUGH (20) Cyst of left kidney Code(s): N28.1 - CYST OF KIDNEY, ACQUIRED (21) Diverticulitis Code(s): K57.92 - DVTRCLI OF INTEST, PART UNSP, W/O PERF OR ABSCESS W/O BLEED (22) Epistaxis Code(s): R04.0 - EPISTAXIS (23) Fever Code(s): R50.9 - FEVER, UNSPECIFIED Qualifiers: Fever type: unspecified Qualified Code(s): R50.9 - Fever, unspecified (24) GI bleed Code(s): K92.2 - GASTROINTESTINAL HEMORRHAGE, UNSPECIFIED (25) Hemolytic anemia Code(s): D58.9 - HEREDITARY HEMOLYTIC ANEMIA, UNSPECIFIED (26) Hepatitis B Code(s): B19.10 - UNSPECIFIED VIRAL HEPATITIS B WITHOUT HEPATIC COMA (27) Hydronephrosis Code(s): N13.30 - UNSPECIFIED HYDRONEPHROSIS (28) Hyperbilirubinemia Code(s): E80.6 - OTHER DISORDERS OF BILIRUBIN METABOLISM (29) 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 Code(s): D69.59 - OTHER SECONDARY THROMBOCYTOPENIA (30) Jaundice Code(s): R17 - UNSPECIFIED JAUNDICE (31) Leukopenia Code(s): D72.819 - DECREASED WHITE BLOOD CELL COUNT, UNSPECIFIED Qualifiers: Leukopenia type: unspecified Qualified Code(s): D72.819 - Decreased white blood cell count, unspecified (32) Low hemoglobin Code(s): D64.9 - ANEMIA, UNSPECIFIED (33) Lung nodule, multiple Code(s): R91.8 - OTHER NONSPECIFIC ABNORMAL FINDING OF LUNG FIELD (34) MDS (myelodysplastic syndrome) Code(s): D46.9 - MYELODYSPLASTIC SYNDROME, UNSPECIFIED (35) Mesenteric mass Code(s): K63.9 - DISEASE OF INTESTINE, UNSPECIFIED (36) Nephrolithiasis Code(s): N20.0 - CALCULUS OF KIDNEY (37) Neutropenia Code(s): D70.9 - NEUTROPENIA, UNSPECIFIED (38) Neutropenic fever Code(s): D70.9 - NEUTROPENIA, UNSPECIFIED; R50.81 - FEVER PRESENTING WITH CONDITIONS CLASSIFIED ELSEWHERE (39) Otorrhea, right ear Code(s): H92.11 - OTORRHEA, RIGHT EAR (40) PAD (peripheral artery disease) Code(s): I73.9 - PERIPHERAL VASCULAR DISEASE, UNSPECIFIED (41) Pancytopenia Code(s): D61.818 - OTHER PANCYTOPENIA (42) Positive blood cultures Code(s): R78.81 - BACTEREMIA (43) SIRS (systemic inflammatory response syndrome) Code(s): R65.10 - SIRS OF NON-INFECTIOUS ORIGIN W/O ACUTE ORGAN DYSFUNCTION (44) Scleral icterus Code(s): R17 - UNSPECIFIED JAUNDICE (45) Staghorn calculus Code(s): N20.0 - CALCULUS OF KIDNEY (46) Thrombocytopenia Code(s): D69.6 - THROMBOCYTOPENIA, UNSPECIFIED (47) Thrombocytopenia Code(s): D69.6 - THROMBOCYTOPENIA, UNSPECIFIED (48) UTI (urinary tract infection) Code(s): N39.0 - URINARY TRACT INFECTION, SITE NOT SPECIFIED Qualifiers: Urinary tract infection type: site unspecified Hematuria presence: without hematuria Qualified Code(s): N39.0 - Urinary tract infection, site not specified (49) Vomiting Code(s): R11.10 - VOMITING, UNSPECIFIED Qualifiers: Vomiting type: unspecified Vomiting Intractability: unspecified Nausea presence: with nausea Qualified Code(s): R11.2 - Nausea with vomiting, unspecified (50) Anxiety disorder Code(s): F41.9 - ANXIETY DISORDER, UNSPECIFIED (51) CHF (congestive heart failure) Code(s): I50.9 - HEART FAILURE, UNSPECIFIED (52) CLL (chronic lymphocytic leukemia) Code(s): C91.10 - CHRONIC LYMPHOCYTIC LEUK OF B-CELL TYPE NOT ACHIEVE REMIS (53) Diastolic CHF Code(s): I50.30 - UNSPECIFIED DIASTOLIC (CONGESTIVE) HEART FAILURE (54) HTN (hypertension) Code(s): I10 - ESSENTIAL (PRIMARY) HYPERTENSION (55) HTN (hypertension) Code(s): I10 - ESSENTIAL (PRIMARY) HYPERTENSION Assessment/Plan MDS CKD CLL Anemia PAD Plan; Cardiac dyson stable telemetry and EKG unremarkable . cont supportive rx.
--- NOTE | 2019-04-08 10:59 | PN ---
Progress Note, Physician Chief Complaint: CBC stable; no c/o feels well in good spirits, wants to go home, her daughter Dayana to picket [employer] pt today; d/w CM about SNF, [place], vs home with PT and VNS, [employer] - pt has to address financial issues in order to qualify for medicaid - daughter aware - Current Medication List Current Medications: Active Medications Acetaminophen (Tylenol -) 650 mg PO Q6H PRN PRN Reason: FEVER Last Admin: 04/05/19 21:46 Dose: 650 mg Cyclosporine (Sandimmune) 100 mg PO DAILY [facility] Last Admin: 04/08/19 09:26 Dose: 100 mg Lamivudine (Epivir Oral Solution -) 100 mg PO DAILY [facility] Last Admin: 04/08/19 09:26 Dose: 100 mg Olanzapine (Zyprexa -) 2.5 mg PO HS [facility] Last Admin: 04/07/19 22:13 Dose: 2.5 mg Pantoprazole Sodium (Protonix -) 20 mg PO DAILY [facility] Last Admin: 04/08/19 09:26 Dose: 20 mg - Objective Vital Signs: Vital Signs Temperature 98.0 F 04/08/19 06:00 Pulse Rate 70 04/08/19 06:00 Respiratory Rate 18 04/08/19 06:00 Blood Pressure 118/67 04/08/19 06:00 O2 Sat by Pulse Oximetry (%) 98 04/07/19 21:00 Constitutional: Yes: No Distress, Calm Eyes: Yes: Conjunctiva Clear HENT: Yes: Atraumatic Neck: Yes: Supple Cardiovascular: Yes: Regular Rate and Rhythm Respiratory: Yes: CTA Bilaterally Gastrointestinal: Yes: Soft. No: Tenderness Genitourinary: No: Hematuria Extremities: No: Calf Tenderness, Cold, Cool, Cyanosis Edema: No Neurological: Yes: Alert, Oriented ...Motor Strength: WNL Psychiatric: Yes: Alert, Oriented. No: Agitated Labs: CBC, BMP 04/07/19 16:35 04/06/19 06:10 INR, PTT INR 1.14 (0.83-1.09) H 04/01/19 18:35 - ....Imaging Other: Report Reviewed Assessment/Plan 73F PMH CLL, pancytopenia, CHF, HTN, dementia (AAOx2 at baseline), HBV brought in for anxiety agitation found to have low grade fever; pt has h/o recurrent UTIs and leg cellulitis; off ATB stable; CBC better heme onc f/u outpt d/w dr Garcia d/w pt and staff; d/w pt's daughter Dayana
[2019-04-08 11:38] VITALS: PULSE 74
[2019-04-08 14:45] VITALS: BP 116/55; TEMP 98.9
--- NOTE | 2019-04-08 17:15 | PN ---
Progress Note (short form) - Note Progress Note: Patient seen in follow up. No new complaints. No significant events overnight. Inpatient Meds reviewed. Acetaminophen (Tylenol -) 650 mg PO Q6H PRN PRN Reason: FEVER Last Admin: 04/05/19 21:46 Dose: 650 mg Cyclosporine (Sandimmune) 100 mg PO DAILY [facility] Last Admin: 04/08/19 09:26 Dose: 100 mg Lamivudine (Epivir Oral Solution -) 100 mg PO DAILY [facility] Last Admin: 04/08/19 09:26 Dose: 100 mg Olanzapine (Zyprexa -) 2.5 mg PO HS [facility] Last Admin: 04/07/19 22:13 Dose: 2.5 mg Pantoprazole Sodium (Protonix -) 20 mg PO DAILY [facility] Last Admin: 04/08/19 09:26 Dose: 20 mg On Examination: Vital Signs Temperature 98.0 F 04/08/19 06:00 Pulse Rate 70 04/08/19 06:00 Respiratory Rate 18 04/08/19 06:00 Blood Pressure 118/67 04/08/19 06:00 O2 Sat by Pulse Oximetry (%) 98 04/07/19 21:00 General: In no acute distress, sitting at bedside. Extremities: No pallor or icterus. No pedal edema. No palpable lymphadenopathy. CVS: S1, S2, regular, no gallop or murmur. Chest: good air entry bilaterally, clear Abdomen: Non-distended, non-tender, no palpable organomegaly. Neuro: Alert, mildly confused, as at baseline. Labs: CBC, BMP 04/07/19 16:35 04/06/19 06:10 Assessment. Complicated hematological history, including prior CLL, with secondary ITP - now quiescent. 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 Limited treatment options in light of impaired cognition, with question regarding her ability to safely undergo definitive therapy. Started empirically on cyclosporine for MDS. Admitted now with mental status altered from baseline and fever, possibly attributable to sepsis, improved following course of Abics. Now satsfying criteria for AML based on peripheral blood blast count. Will follow up with Dr Garcia as outpatient, to further discuss goals of care and viable management strategies.
--- NOTE | 2019-04-09 10:16 | PN ---
Progress Note (short form) - Note Progress Note: Pt DCd home with daughter Dayana yesterday. pt's daughter called me today that her mom is agitated and upset and she did not want to be home and left her home alone, she took her back in the apartment but she is very anxious; she is seeing psych dr camejo usually and she is on zyprexa; I advised her to take her to psych ER at [facility] now, she said she will.
--- NOTE | 2019-04-11 16:22 | PATH ---
Surgical Pathology Report Patient Name: AYLEEN GILMORE Med. Rec. #: [id number] /Age/Gender: 1945 (Age: 73) / F Account: [id number] Location: [facility] PEDS/ADOL Taken: 04/07/2019 Received: 04/07/2019 Reported: 04/11/2019 Physicians: Opal Dalal M.D. Specimen(s) Received PERIPHERAL BLOOD Clinical History AML, MDS Final Diagnosis COMPREHENSIVE FLOW PANEL performed and interpreted at [facility], ([id number]) shows the following: INTERPRETATION: ACUTE MYELOID LEUKEMIA (AML), 23% BLASTS. Phenotype: A prominent population of myeloblasts detected comprising 23% of analyzed white blood cells. Blasts express CD34, dim CD13, partial CD33, CD117, and HLA-DR, and are negative for myeloperoxidase. Granulocytes are left-shifted. Lymphocytes include NK cells and immunophenotypically normal CD4+ and CD8+ T cells in normal proportions. B cells are too few to assess clonality by light-chain staining. See [facility] report for additional details. Electronically Signed Josselyn Long M.D. Addendum Reported: 04/11/2019 Addendum Diagnosis Findings discussed with Dr. Dalal, 04/11/19. Josselyn Long M.D.
== END 2019-04-08 15:59 | disposition home health service (06) | DRG 603 ==
LOC: JER 16:50 → J4S 20:51 → UNDOADMIN 21:21 → J4S 21:21
PROVIDERS: ADMIT Internal Medicine; ATTEND Internal Medicine
DX: L03.115 Cellulitis of right lower limb (principal); C91.10 Chronic lymphocytic leukemia of B-cell type not having achieved remission; E87.2 Acidosis; F03.91 Unspecified dementia, unspecified severity, with behavioral disturbance; D61.818 Other pancytopenia; N13.6 Pyonephrosis; B19.10 Unspecified viral hepatitis B without hepatic coma; N17.9 Acute kidney failure, unspecified; I13.0 Hypertensive heart and chronic kidney disease with heart failure and stage 1 through stage 4 chronic kidney disease, or unspecified chronic kidney disease; I50.30 Unspecified diastolic (congestive) heart failure; D46.9 Myelodysplastic syndrome, unspecified; F41.9 Anxiety disorder, unspecified; K21.9 Gastro-esophageal reflux disease without esophagitis; K57.90 Diverticulosis of intestine, part unspecified, without perforation or abscess without bleeding; K80.80 Other cholelithiasis without obstruction; M54.5 Low back pain; D64.9 Anemia, unspecified; R00.0 Tachycardia, unspecified; R50.9 Fever, unspecified; E87.6 Hypokalemia; N18.3 Chronic kidney disease, stage 3 (moderate)
CPT/HCPCS: 36415; 36430; 36511; 71045-TC-FY; 76775-TC; 80048; 80053; 81003; 82550; 82803; 83605; 84484; 85025; 85610; 85730; 86850; 86900; 86901; 86922; 87040; 87086; 87186; 88300-TC; 93005; 93010; 97116-GP; 97161-GP; 99283-25; J0131; J7502; P9038; P9058

== ENCOUNTER 2019-05-03 22:08 | Inpatient (IN) | payer OTHER, MEDICARE ==
--- NOTE | 2019-05-03 22:49 | PDOC ---
History of Present Illness - General Chief Complaint: SIRS, Suspected/Possible Stated Complaint: FEVER Time Seen by Provider: 05/03/19 22:45 History Source: Patient Exam Limitations: No Limitations - History of Present Illness Initial Comments: Daughters #: [phone] - Dayana Rosas is a 73 yo F w a pmh of CLL, pancytopenia, CHF, HTN, mild dementia (AOx2 at baseline), HBV brought in with her daughter because she has been having a fever for the past day at her rehab facility [facility]. The patient is a poor historian and does not provide much hx. She denies everything saying nothing is wrong. The daughter states that bc she had the fever they called Dr. Joseph who advised coming to the ER to be evaluated. The daughter states that earlier today the patient felt nauseous but did not experience any emesis. Denies headache, blurry vision, weakness, numbness, tingling, chills, dysuria, frequency, urgency, chest pain, cough, runny nose, SOB, difficulty breathing, abdominal pain, diarrhea, constipation, body aches, myalgias, abdominal pain PCP: Sabi Jordan Onc: Dr. Radha Joseph PSH: tonsillectomy Social Hx: Currently in rehab at [place]. Daughter is patient's primary circulator. Denies smoking, drinking, or illicit drugs Allergies: Vancomycin Past History - Past Medical History Allergies/Adverse Reactions: Allergies Allergy/AdvReac Type Severity Reaction Status Date / Time vancomycin AdvReac Verified 05/03/19 22:50 Home Medications: Ambulatory Orders Pantoprazole Sodium [Protonix -] 20 mg PO DAILY 10/08/18 Lamivudine [Lamivudine Hbv] 100 mg PO DAILY 11/01/18 Cyclosporine 100 mg PO DAILY 03/16/19 Olanzapine [Zyprexa -] 2.5 mg PO HS #30 tablet MDD 1 03/22/19 Acetaminophen [Tylenol .Regular Strength -] 650 mg PO Q6H PRN tablet 04/08/19 Anemia: Yes (pancytopenia) Asthma: No Cancer: (Chronic Lymphocytic leukemia) Cardiac Disorders: (CHF) CVA: No COPD: No CHF: Yes Dementia: No Diabetes: No GI Disorders: Yes (GERD, gallstones, diverticulosis, GIB) Disorders: Yes (UTIs, VRE bacteremia, large kidney stones) HTN: Yes Hypercholesterolemia: No Liver Disease: No Psychiatric Problems: Yes (possibe dementia) Seizures: No Thyroid Disease: No - Surgical History Abdominal Surgery: No Appendectomy: No Cardiac Surgery: No Cholecystectomy: No Lung Surgery: No Neurologic Surgery: No Orthopedic Surgery: No - Immunization History Immunization Up to Date: Yes - Psycho Social/Smoking Cessation Hx Smoking Status: No Smoking History: Never smoked Have you smoked in the past 12 months: No Number of Cigarettes Smoked Daily: 0 Hx Alcohol Use: No Drug/Substance Use Hx: No Substance Use Type: None Hx Substance Use Treatment: No Review of Systems - Review of Systems Able to Perform ROS?: Yes Comments:: CONSTITUTIONAL: Present: Fever Absent: no chills, no fatigue EYES: Absent: visual changes ENT: Absent: ear pain, no sore throat CARDIOVASCULAR: Absent: chest pain, no palpitations RESPIRATORY: Absent: cough, no SOB GI: Absent: abdominal pain, no nausea, no vomiting, no constipation, no diarrhea GENITOURINARY: Absent: dysuria, no frequency, no hematuria MUSKULOSKELETAL: Absent: back pain, no arthralgia, no myalgia SKIN: Absent: rash NEURO: Absent: headache *Physical Exam - Physical Exam GENERAL: Patient appears pale. Not very well kept. No apparent distress. HEENT: Normocephalic, atraumatic. PERRL, EOM intact. CARDIOVASCULAR: Normal S1, S2. Regular rate and rhythm. PULMONARY: No evidence of respiratory distress. Lungs clear to auscultation bilaterally. No wheezing, rales or rhonchi. ABDOMEN: Soft, non-distended, non-tender. EXTREMITIES: Normal ROM in all four extremities. No gross deformities. SKIN: Warm, dry. No rash NEUROLOGICAL: No focal neurological deficits. ED Treatment Course - LABORATORY CBC & Chemistry Diagram: 05/03/19 23:20 05/03/19 23:20 Medical Decision Making - Medical Decision Making Tracy Rosas is a 73 yo F w a pmh of CLL, pancytopenia, CHF, HTN, mild dementia (AOx2 at baseline), HBV brought in with her daughter because she has been having a fever for the past day at her rehab facility [facility]. The patient is a poor historian and does not provide much hx. She denies everything saying nothing is wrong. The daughter states that bc she had the fever they called Dr. Joseph who advised coming to the ER to be evaluated. The daughter states that earlier today the patient felt nauseous but did not experience any emesis. Denies headache, blurry vision, weakness, numbness, tingling, chills, dysuria, frequency, urgency, chest pain, cough, runny nose, SOB, difficulty breathing, abdominal pain, diarrhea, constipation, body aches, myalgias, abdominal pain Vital Signs Temp Pulse Resp BP Pulse Ox 101.2 F H 92 H 20 98/62 97 05/03/19 22:10 05/03/19 22:10 05/03/19 22:10 05/03/19 22:10 05/03/19 22:10 DDx IBNLT: PNA, uri, influenza, strep, UTI/Pylo, gastroenteritis, neutropenic fever, cellulitis Plan: Sepsis workup, flu, strep swabs, IV hydration, tylenol, likely Abx, likely admission, r-assess. EKG: Sinus rhythm w/ premature atrial complexes rate of 64, narrow complexes, normal axis, no hypertrophy, no ST elevations or derpressions, no abnormal TWI's , QTc 427, NJ 138 Labs: Leukocytosis, anemia, EBER - Transfusing patient Urine: UTI - Treating broadyl CXR: Unremarkable Flu: Negative Strep: negative Re-assessment: Patient is pale and anemic requiring a blood transfusion. She is also experiencing an EBER which appears to be new. She has a UTI which is likely the source of her fever - Treating patient w Abx and blood transfusion - Spoke with Dr. Jordan who accepts patient for admission Discharge - Discharge Information Problems reviewed: Yes Clinical Impression/Diagnosis: Anemia requiring transfusions, EBER (acute kidney injury) Fever Qualifiers: Fever type: unspecified Qualified Code(s): R50.9 - Fever, unspecified UTI (urinary tract infection) Qualifiers: Urinary tract infection type: acute cystitis Hematuria presence: without hematuria Qualified Code(s): N30.00 - Acute cystitis without hematuria Condition: Stable - Admission Yes - Follow up/Referral - Patient Discharge Instructions - Post Discharge Activity
[2019-05-03] MEDS ORDERED: SODIUM CHLORIDE 1,565 ML IV ONE (22:58)
[2019-05-03] MEDS ORDERED: ACETAMINOPHEN 1000 MG/100 ML VIAL (NON FORMULARY) IVPB ONE (23:30)
--- NOTE | 2019-05-03 23:30 | PDOC ---
Documentation entered by Aren Espinosa SCRIBE, acting as scribe for Mallorie Padgett DO. Mallorie Padgett DO: This documentation has been prepared by the Jesús mayer Elijah, SCRIBE, under my direction and personally reviewed by me in its entirety. I confirm that the documentation accurately reflects all work, treatment, procedures, and medical decision making performed by me. Attending Attestation - Resident Resident Name: Dawood Rincon - ED Attending Attestation I have performed the following: I have examined & evaluated the patient, The case was reviewed & discussed with the resident, I agree w/resident's findings & plan - HPI HPI: 05/03/19 23:05 Patient is a 73 year old lady with a significant pmh of CLL, CHF, HTN, HBV who presents today with a fever. As per patient's daughter, she was at a rehab center and was noted to not be feeling well over the course of the last x2 days. Patient associated nausea and headache earlier today but at this time denies nausea, abdominal pain, nausea, urinary symptoms and chest pain. Last Chemo treatment was August of last year. Allergies: Vancomycin PCP: Dr. Jordan - Physicial Exam PE: 05/03/19 23:07 Constitutional: Awake, alert, oriented. No acute distress. Head: Normocephalic. Atraumatic Eyes: PERRL. EOMI. Conjunctivae are not pale. ENT: Mucous membranes are moist and intact. Posterior pharynx without exudates or erythema. Uvula midline. Neck: Supple. Full ROM. No lymphadenopathy. Cardiovascular: +Tachycardia Pulmonary/Chest: No evidence of respiratory distress. Clear to auscultation bilaterally No wheezing, rales or rhonchi. Abdominal: Soft and non-distended. There is no tenderness. No rebound, guarding or rigidity. No organomegaly. No palpable masses. Good bowel sounds. Back: No CVA tenderness. Musculoskeletal: +Trace Pitting Edema in the ankles. No cyanosis. No clubbing. Full range of motion in all extremities. Nocalf tenderness. Radial/ pedal pulses are intact and 2+ bilaterally Skin: +Hot to touch. No petechiae. No purpura. Neurological: Alert and oriented to person, place, and time. Cranial nerves II -XII are grossly intact. Normal speech. Strength is grossly symmetric. No sensory deficits. - Medical Decision Making 05/03/19 23:26 a/p: 73yo female with cml presents to the ER with her daughter with a fever x 1 day -pt denies cough, rhinorrhea, congestion, no cp/sob. -no abd pain, no n/v/d, no dysuria -no rashes -no neck pain -pt sits up in [facility] -pt had cyclosporin about a month ago while at [facility] -pt appears generally weak -will send labs, cultures, flu swab -will send urine -will give tylenol for fever and ivf 05/04/19 00:20 pt with wbc 22 hgb 6 brock will need blood transfusion and ivf hydration will straight cath for urine 05/04/19 00:22 cxr clear, perm cath in place 05/04/19 01:[address] Jordan for admission 05/04/19 01:11 resident discussed the case with Dr. jordan who accepts pt to service ua cloudy and concentrated Heart Score/ECG Review - ECG Intrepretation Comment:: 05/03/19 23:30 sinus at 64, pac, l-stephens axis, nl interval, no acute st/t wave findings
[2019-05-03] MEDS ORDERED: ACETAMINOPHEN INJECTION 100 ML IVPB ONE (23:36)
[2019-05-03 23:37] LABS: BASO % 0.4 % (0-2.0); EOS % 0.8 % (0-4.5); HEMATOCRIT 19.7 % (32.4-45.2); LYMPH % 19.4 % (8-40); MCH 27.6 pg (25.7-33.7); MCHC 33.4 g/dl (32.0-36.0); MEAN CELL VOLUME 82.6 fl (80-96); MEAN PLT VOLUME 7.2 fl (7.5-11.1); MONO % 27.4 % (3.8-10.2); PLATELET COUNT 73 K/MM3 (134-434); RBC 2.39 M/mm3 (3.60-5.2); RDW 16.2 % (11.6-15.6); VENOUS PC02 44.7 mmHg (38-52); WHITE BLOOD COUNT 22.1 K/mm3 (4.0-10.0)
[2019-05-03 23:41] LABS: VENOUS PO2 < 49 mmHg (28-48)
[2019-05-03 23:47] LABS: HEMOGLOBIN 6.6 GM/dL (10.7-15.3)
[2019-05-03 23:49] LABS: INR 1.18 (0.83-1.09); PROTHROMBIN TIME (PATIENT) 13.9 SEC (9.7-13.0)
[2019-05-03 23:52] LABS: ACTIVATED PTT 25.9 SECONDS (25.2-36.5)
[2019-05-04 00:07] LABS: ALBUMIN 3.1 g/dl (3.4-5.0); BILIRUBIN,TOTAL 0.4 mg/dL (0.2-1); CALCIUM 9.5 mg/dL (8.5-10.1); POTASSIUM 4.5 mmol/L (3.5-5.1); TOT PROT 6.3 g/dl (6.4-8.2)
[2019-05-04] MEDS ORDERED: DAPTOMYCIN 350 MG in SODIUM CHLORIDE 50 ML IVPB ONE (00:48)
[2019-05-04] MEDS ORDERED: CEFEPIME HCL/D5W 2 GM/50 ML BAG IVPB ONE (00:49)
[2019-05-04] MEDS ORDERED: CEFEPIME 2 GM in DEXTROSE 5%-WATER 100 ML IVPB ONE (01:00)
[2019-05-04 01:26] LABS: EPI CELLS 6.1 /HPF (0-5/HPF); HYALINE CASTS 70 /lpf (0-8); URINE APPEARANCE TURBID; URINE BACTERIA 1027.1 /hpf (NEGATIVE); URINE BILIRUBIN NEGATIVE (NEGATIVE); URINE COLOR YELLOW; URINE GLUCOSE (UA) NEGATIVE (NEGATIVE); URINE KETONE NEGATIVE (NEGATIVE); URINE LEUK ESTERASE 3+ (NEGATIVE); URINE NITRITE NEGATIVE (NEGATIVE); URINE PROTEIN 1+ (NEGATIVE); URINE RBC 3 /hpf (0-4); URINE UROBILINOGEN 0.2 mg/dL (0.2-1.0); URINE WBC 61 /hpf (0-5)
[2019-05-04 01:36] LABS: ANISOCYTOSIS 2+; MACROCYTOSIS 0; PLATELET ESTIMATE DECREASED
--- NOTE | 2019-05-04 07:53 | HP ---
Admitting History and Physical - Primary Care Physician PCP: Sabi Jordan S - Admission Chief Complaint: fever History of Present Illness: Patient is a 73 year old lady with a significant pmh of CLL, CHF, HTN, HBV who presents with a fever. As per patient's daughter, she was at a rehab center and was noted to not be feeling well over the course of the last x2 days. Patient associated nausea and headache earlier yesterday but at this time denies nausea , abdominal pain, nausea, urinary symptoms and chest pain. Last Chemo treatment was per ONC. 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: Yes: Dementia Cardiovascular: Yes: HTN Gastrointestinal: Yes: Diverticulosis (on CT scan), GI Bleed (02/13 post- sphincterotomy bleed) Hepatobiliary: Yes: Cholelithiasis, Choledocholithiasis (with cholangitis 02/13 requring ERCP & sphincterotomy complicated by a post-sphincterotomy bleed ) Renal/: Yes: Renal Calculi Heme/Onc: Yes: Anemia, Cancer (CLL- had bone marrow at [facility] recently), Other ( thalassemia) Psych: Yes: Anxiety Musculoskeletal: Yes: Chronic low back pain - Past Surgical History Past Surgical History: Yes: Tonsillectomy, Upper Endoscopy - Smoking History Smoking history: Never smoked Have you smoked in the past 12 months: No Aproximately how many cigarettes per day: 0 - Alcohol/Substance Use Hx Alcohol Use: No History of Substance Use: reports: None - Social History Usual Living Arrangement: Yes: Jail Do you think of yourself as: Straight/Heterosexual ADL: Independent 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 of Recent Travel: No Home Medications - Allergies Allergies/Adverse Reactions: Allergies Allergy/AdvReac Type Severity Reaction Status Date / Time vancomycin AdvReac Verified 05/03/19 22:50 - Home Medications Home Medications: Ambulatory Orders Pantoprazole Sodium [Protonix -] 20 mg PO DAILY 10/08/18 Lamivudine [Lamivudine Hbv] 100 mg PO DAILY 11/01/18 Cyclosporine 100 mg PO DAILY 03/16/19 Olanzapine [Zyprexa -] 2.5 mg PO HS #30 tablet MDD 1 03/22/19 Acetaminophen [Tylenol .Regular Strength -] 650 mg PO Q6H PRN tablet 04/08/19 Family Medical History Family History: Unremarkable Review of Systems - Review of Systems Constitutional: reports: Chills, Fever, Loss of Appetite, Unintentional Wgt. Loss, Weakness (general) Eyes: denies: Blind Spots, Blurred Vision, Double Vision HENT: denies: Difficult Swallowing, Ear Pain, Epistaxis Neck: denies: Stiffness, Tenderness Cardiovascular: denies: Chest Pain, Shortness of Breath Respiratory: denies: Cough, SOB, SOB on Exertion Gastrointestinal: denies: Abdominal Pain, Rectal Bleeding, Vomiting Genitourinary: reports: Dysuria, Frequency. denies: Flank Pain, Pain Musculoskeletal: denies: Back Pain, Muscle Pain Integumentary: denies: Eczema, Wound Neurological: denies: Change in LOC, Change in Speech, Confusion, Dizziness, Pre -Existing Deficit Endocrine: denies: Unexplained Weight Loss Hematology/Lymphatic: denies: Easily Bruised, Excessive Bleeding Psychiatric: reports: Anxiety. denies: Altered Sleep Pattern, Depression, Suicidal Physical Examination Vital Signs: Vital Signs Temperature 98.1 F 05/04/19 06:30 Pulse Rate 60 05/04/19 06:39 Respiratory Rate 18 05/04/19 06:39 Blood Pressure 99/65 05/04/19 06:39 O2 Sat by Pulse Oximetry (%) 96 05/04/19 06:39 Constitutional: Yes: No Distress, Calm Eyes: Yes: Conjunctiva Clear HENT: Yes: Atraumatic Neck: Yes: Supple Cardiovascular: Yes: Regular Rate and Rhythm Respiratory: Yes: CTA Bilaterally Gastrointestinal: Yes: Soft. No: Tenderness Renal/: No: Hematuria Musculoskeletal: No: Joint Stiffness, Joint Swelling Extremities: No: Cold, Cool, Cyanosis Edema: No Integumentary: Yes: Venous Stasis Changes. No: Rash Neurological: Yes: WNL, Alert, Oriented ...Motor Strength: WNL Psychiatric: Yes: WNL, Alert, Oriented. No: Agitated, Suicidal Ideation Labs: CBC, BMP 05/03/19 23:20 05/03/19 23:20 Imaging - Results Chest X-ray: Report Reviewed Other: Report Reviewed Assessment/Plan Patient is a 73 year old lady with a significant pmh of CLL, CHF, HTN, HBV who presents yesterday with a fever. h/o UTis renal stones, and cellulitis; febrile at admission, also ARF and severe anemia admit; gentle IVF IV ATB per ID f/u labs and cultures heme onc and renal eval prognosis guarded h/o low PLT and bleeding would not use sq heparin at this point; pt ambulates; falls pfx d/w pt and staff
[2019-05-04] MEDS ORDERED: SODIUM CHLORIDE 1,000 ML IV SCH ×2 (08:00→15:01)
[2019-05-04] MEDS: lamiVUDine 10 MG/1 ML BULK BOTTLE PO SCH (11:00)
[2019-05-04] MEDS ORDERED: PANTOPRAZOLE 20 MG TABLET PO ONE (11:18)
[2019-05-04] MEDS: PANTOPRAZOLE 20 MG TABLET PO SCH (11:53)
--- NOTE | 2019-05-04 14:26 | EKG ---
Test Reason : Blood Pressure : / mmHG Vent. Rate : 064 BPM Atrial Rate : 064 BPM P-R Int : 138 ms QRS Dur : 084 ms QT Int : 414 ms P-R-T Axes : 057 -20 041 degrees QTc Int : 427 ms SINUS RHYTHM WITH PREMATURE ATRIAL COMPLEXES OTHERWISE NORMAL ECG WHEN COMPARED WITH ECG OF 01-APR-2019 19:12, PREMATURE ATRIAL COMPLEXES ARE NOW PRESENT Confirmed by OLIVIA JOHNSON MD ([id number]) on 05/04/2019 2:26:19 PM Referred By: Confirmed By:OLIVIA JOHNSON MD
--- NOTE | 2019-05-04 14:31 | CONSULT ---
Consultation: CONSULT SERVICE: Hematology/Oncology HISTORY OF PRESENT ILLNESS: 73yo F h/o dementia, CLL, MDS, Thalassemia minor, HTN, CHF, Hepatitis B who presented to our facility after [facility] a [facility]. History if provided by EMR and somewhat by patient given her orientation x2. Pt received her last chemotherapy in August 2018 and has had multiple admissions with notable worsening MDS. Most of her workup has been performed at [facility] including BM biopsy with (at the time) minimal invasion of BM. Pt was last seen March of this year by our service where we were consulted for anemia and thrombocytopenia likely related to her MDS. Pt during this admission was noted to have normocytic normochromic anemia down to 6.6/19.7 and has received 1U PRBC. Currently patient is oriented 2 and denies any pain or lightheadedness now. Pt denies any cough, SOB, CP, abdominal pain. 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 REVIEW OF SYSTEMS: As per HPI PHYSICAL EXAMINATION Vital Signs - 24 hr 05/03/19 05/04/19 05/04/19 22:10 01:09 06:15 Temperature 101.2 F H 98.1 F Pulse Rate 92 H Pulse Rate [ 62 Radial] Pulse Rate [ Right Radial] Respiratory 20 18 Rate Blood Pressure 98/62 Blood Pressure 99/65 [Left Arm] Blood Pressure [Right Arm] O2 Sat by Pulse 97 98 95 Oximetry (%) 05/04/19 05/04/19 05/04/19 06:30 06:39 07:15 Temperature 98.1 F Pulse Rate Pulse Rate [ 18 L Radial] Pulse Rate [ 60 60 64 Right Radial] Respiratory 18 18 16 Rate Blood Pressure Blood Pressure [Left Arm] Blood Pressure 99/65 99/65 105/45 L [Right Arm] O2 Sat by Pulse 98 96 100 Oximetry (%) 05/04/19 05/04/19 11:22 12:15 Temperature Pulse Rate Pulse Rate [ 16 L Radial] Pulse Rate [ 69 73 Right Radial] Respiratory 18 17 Rate Blood Pressure Blood Pressure [Left Arm] Blood Pressure 109/54 L 118/53 L [Right Arm] O2 Sat by Pulse 97 99 Oximetry (%) GENERAL: Awake, alert, and oriented to person and place only, in no acute distress. HEENT: NC/AT, ANTHONY, EOMI, sclera anicteric, poor teeth hygeine, MMM. NECK: Noo JVD, or masses. Hirsuitism noted LUNGS: CTA bilaterally. No wheezes, and no crackles. No accessory muscle use. HEART: RRR, normal S1 and S2 without murmur ABDOMEN: Soft, nontender, nondistended, normoactive BS, no guarding, no hepatomegaly. MUSCULOSKELETAL: No CVA tenderness. EXTREMITIES: 2+ DP pulses, warm, well-perfused. No calf tenderness. No peripheral edema. PSYCHIATRIC: Cooperative. Good eye contact. Appropriate mood and affect. SKIN: Warm, dry, no rashes or lesions noted. Laboratory Results - last 24 hr 05/03/19 05/03/19 05/03/19 23:20 23:20 23:20 WBC 22.1 H Corrected WBC (auto) 22.10 RBC 2.39 L Hgb 6.6 L* Hct 19.7 L D MCV 82.6 MCH 27.6 MCHC 33.4 RDW 16.2 H Plt Count 73 L MPV 7.2 L D Absolute Neuts (auto) 11.5 H Total Counted 22.1 Neutrophils % 52.0 Neutrophils % (Manual) 7.0 L Band Neutrophils % 2.0 Lymphocytes % 19.4 D Lymphocytes % (Manual) 11.0 D Monocytes % 27.4 H Monocytes % (Manual) 15 H D Eosinophils % 0.8 Eosinophils % (Manual) 38.0 H D Basophils % 0.4 D Basophils % (Manual) 0.0 Myelocytes % (Man) 7 H D Promyelocytes % (Man) 7 H D Blast Cells % (Manual) 0 D Nucleated RBC % 3 H Metamyelocytes 7 H Hypochromia 0 Platelet Estimate Decreased Platelet Comment Large platelets Polychromasia 1+ Poikilocytosis 1+ Anisocytosis 2+ Microcytosis 2+ Macrocytosis 0 PT with INR INR PTT (Actin FS) VBG pH POC VBG pCO2 POC VBG pO2 VBG HCO3 VBG O2 Sat (Mariana) VBG Base Excess Sodium 131 L Potassium 4.5 Chloride 98 Carbon Dioxide 25 Anion Gap 8 BUN 27.0 H Creatinine 3.0 H Est GFR (CKD-EPI)AfAm 17.15 Est GFR (CKD-EPI)NonAf 14.80 Random Glucose 116 H Lactic Acid Calcium 9.5 Total Bilirubin 0.4 AST 18 ALT 11 L Alkaline Phosphatase 92 Troponin I Total Protein 6.3 L Albumin 3.1 L Urine Color Urine Appearance Urine pH Ur Specific Lovell Urine Protein Urine Glucose (UA) Urine Ketones Urine Blood Urine Nitrite Urine Bilirubin Urine Urobilinogen Ur Leukocyte Esterase Urine WBC (Auto) Urine RBC (Auto) Urine Casts (Auto) U Pathogenic Cast Auto U Epithel Cells (Auto) Urine Bacteria (Auto) Influenza A (Rapid) Negative Influenza B (Rapid) Negative Group A Strep Rapid Blood Type Antibody Screen Crossmatch 05/03/19 05/03/19 05/03/19 23:20 23:20 23:20 WBC Corrected WBC (auto) RBC Hgb Hct MCV MCH MCHC RDW Plt Count MPV Absolute Neuts (auto) Total Counted Neutrophils % Neutrophils % (Manual) Band Neutrophils % Lymphocytes % Lymphocytes % (Manual) Monocytes % Monocytes % (Manual) Eosinophils % Eosinophils % (Manual) Basophils % Basophils % (Manual) Myelocytes % (Man) Promyelocytes % (Man) Blast Cells % (Manual) Nucleated RBC % Metamyelocytes Hypochromia Platelet Estimate Platelet Comment Polychromasia Poikilocytosis Anisocytosis Microcytosis Macrocytosis PT with INR 13.90 H INR 1.18 H PTT (Actin FS) 25.9 VBG pH POC VBG pCO2 POC VBG pO2 VBG HCO3 VBG O2 Sat (Mariana) VBG Base Excess Sodium Potassium Chloride Carbon Dioxide Anion Gap BUN Creatinine Est GFR (CKD-EPI)AfAm Est GFR (CKD-EPI)NonAf Random Glucose Lactic Acid 1.1 Calcium Total Bilirubin AST ALT Alkaline Phosphatase Troponin I Total Protein Albumin Urine Color Urine Appearance Urine pH Ur Specific Lovell Urine Protein Urine Glucose (UA) Urine Ketones Urine Blood Urine Nitrite Urine Bilirubin Urine Urobilinogen Ur Leukocyte Esterase Urine WBC (Auto) Urine RBC (Auto) Urine Casts (Auto) U Pathogenic Cast Auto U Epithel Cells (Auto) Urine Bacteria (Auto) Influenza A (Rapid) Influenza B (Rapid) Group A Strep Rapid Negative Blood Type Antibody Screen Crossmatch 05/03/19 05/03/19 05/04/19 23:20 23:20 00:05 WBC Corrected WBC (auto) RBC Hgb Hct MCV MCH MCHC RDW Plt Count MPV Absolute Neuts (auto) Total Counted Neutrophils % Neutrophils % (Manual) Band Neutrophils % Lymphocytes % Lymphocytes % (Manual) Monocytes % Monocytes % (Manual) Eosinophils % Eosinophils % (Manual) Basophils % Basophils % (Manual) Myelocytes % (Man) Promyelocytes % (Man) Blast Cells % (Manual) Nucleated RBC % Metamyelocytes Hypochromia Platelet Estimate Platelet Comment Polychromasia Poikilocytosis Anisocytosis Microcytosis Macrocytosis PT with INR INR PTT (Actin FS) VBG pH 7.40 POC VBG pCO2 44.7 POC VBG pO2 < 49 H VBG HCO3 27.1 VBG O2 Sat (Mariana) 58.9 L VBG Base Excess 2.6 H Sodium Potassium Chloride Carbon Dioxide Anion Gap BUN Creatinine Est GFR (CKD-EPI)AfAm Est GFR (CKD-EPI)NonAf Random Glucose Lactic Acid Calcium Total Bilirubin AST ALT Alkaline Phosphatase Troponin I < 0.02 Total Protein Albumin Urine Color Yellow Urine Appearance Turbid Urine pH 5.0 Ur Specific Lovell 1.018 Urine Protein 1+ H Urine Glucose (UA) Negative Urine Ketones Negative Urine Blood 3+ H Urine Nitrite Negative Urine Bilirubin Negative Urine Urobilinogen 0.2 Ur Leukocyte Esterase 3+ H Urine WBC (Auto) 61 Urine RBC (Auto) 3 Urine Casts (Auto) 70 U Pathogenic Cast Auto None U Epithel Cells (Auto) 6.1 Urine Bacteria (Auto) 1027.1 Influenza A (Rapid) Influenza B (Rapid) Group A Strep Rapid Blood Type Antibody Screen Crossmatch 05/04/19 05/04/19 00:08 00:30 WBC Corrected WBC (auto) RBC Hgb Hct MCV MCH MCHC RDW Plt Count MPV Absolute Neuts (auto) Total Counted Neutrophils % Neutrophils % (Manual) Band Neutrophils % Lymphocytes % Lymphocytes % (Manual) Monocytes % Monocytes % (Manual) Eosinophils % Eosinophils % (Manual) Basophils % Basophils % (Manual) Myelocytes % (Man) Promyelocytes % (Man) Blast Cells % (Manual) Nucleated RBC % Metamyelocytes Hypochromia Platelet Estimate Platelet Comment Polychromasia Poikilocytosis Anisocytosis Microcytosis Macrocytosis PT with INR INR PTT (Actin FS) VBG pH POC VBG pCO2 POC VBG pO2 VBG HCO3 VBG O2 Sat (Mariana) VBG Base Excess Sodium Potassium Chloride Carbon Dioxide Anion Gap BUN Creatinine Est GFR (CKD-EPI)AfAm Est GFR (CKD-EPI)NonAf Random Glucose Lactic Acid Calcium Total Bilirubin AST ALT Alkaline Phosphatase Troponin I Total Protein Albumin Urine Color Urine Appearance Urine pH Ur Specific Lovell Urine Protein Urine Glucose (UA) Urine Ketones Urine Blood Urine Nitrite Urine Bilirubin Urine Urobilinogen Ur Leukocyte Esterase Urine WBC (Auto) Urine RBC (Auto) Urine Casts (Auto) U Pathogenic Cast Auto U Epithel Cells (Auto) Urine Bacteria (Auto) Influenza A (Rapid) Influenza B (Rapid) Group A Strep Rapid Blood Type O POSITIVE O POSITIVE Antibody Screen Negative Negative Crossmatch See Detail Active Medications Generic Name Dose Route Start Last Admin Trade Name Freq PRN Reason Stop Dose Admin Acetaminophen 650 mg 05/04/19 07:53 Tylenol - PO Q6H PRN FEVER Cyclosporine 100 mg 05/04/19 10:00 05/04/19 11:00 Sandimmune PO 100 mg DAILY RYAN Administration Sodium Chloride 1,000 mls @ 75 mls/hr 05/04/19 08:00 05/04/19 11:53 Normal Saline - IV 75 mls/hr ASDIR RYAN Administration Lamivudine 100 mg 05/04/19 10:00 05/04/19 11:00 Epivir Oral Solution - PO 100 mg DAILY RYAN Administration Olanzapine 2.5 mg 05/04/19 22:00 Zyprexa - PO HS RYAN Pantoprazole Sodium 20 mg 05/04/19 10:00 05/04/19 11:53 Protonix - PO 20 mg DAILY RYAN Administration ASSESSMENT/PLAN: Normocytic anemia Thrombocytopenia ? Eosinophilia MDS/CLL history Dementia Fever likely secondary from UTI --Agree with transfusion; will order CBC 1hr post transfusion --Check guiac --Transfusion threshold of >7gm for RBC; Transfusion plts >20 without bleeding --Given her MDS will monitor counts and transfusion support when necessary --Check retic count and EPO serum --Doubt hemolysis at this time so will wait for LDH/Haptoglobin workup --F/u repeat differential as manual eosinophils 38 while auto normal. Previous minimal eosinophilia in the past, however not truly significant Case to be discussed Jay Walton, DO - IM PGY-3 Visit type - Emergency Visit Emergency Visit: Yes ED Registration Date: 05/04/19 Care time: The patient presented to the Emergency Department on the above date and was hospitalized for further evaluation of their emergent condition. - New Patient This patient is new to me today: Yes Date on this admission: 05/04/19 - Critical Care Critical Care patient: No ATTENDING PHYSICIAN STATEMENT I saw and evaluated the patient. I reviewed the resident's note and discussed the case with the resident. I agree with the resident's findings and plan as documented. SUBJECTIVE: OBJECTIVE: ASSESSMENT AND PLAN:
--- NOTE | 2019-05-04 15:00 | CONSULT ---
Consult - text type - Consultation Consultation Note: Renal consult for EBER on CKD This is a 73 year old woman with past medical history of CKD (baseline Cr ~1.7) , CLL, CHF, HTN, HBV, unilateral hydronephrosis who presented to the ED with fevers and noted to have Cr of 3. Pt seen and examined in the ER. She offers no acute complaints. Denies any fevers, chills, sob, cp, abd pain, N/V/D. Making urine without difficulty. Denies any NSAID use. Denies diarrhea. No recent contrast exposure. No skin rash. PMhx: as above Allergies: Vancomycin Family Hx: NC Social Hx: No T/A/D ROS: as per HPI, all other pertinent ros negative Home Medications Medication Instructions Recorded Pantoprazole Sodium [Protonix -] 20 mg PO DAILY 10/08/18 Lamivudine [Lamivudine Hbv] 100 mg PO DAILY 11/01/18 Cyclosporine 100 mg PO DAILY 03/16/19 Olanzapine [Zyprexa -] 2.5 mg PO HS #30 tablet MDD 1 03/22/19 Acetaminophen [Tylenol .Regular 650 mg PO Q6H PRN tablet 04/08/19 Strength -] Vital Signs Temperature 98.1 F 05/04/19 06:30 Pulse Rate 16 L 05/04/19 12:15 Respiratory Rate 17 05/04/19 12:15 Blood Pressure 118/53 L 05/04/19 12:15 O2 Sat by Pulse Oximetry (%) 99 05/04/19 12:15 Intake & Output 05/01/19 05/02/19 05/03/19 05/04/19 23:59 23:59 23:59 23:59 Weight 52.163 kg NAD awake and alert neck supple, no JVD RRR, no M/R CTA soft NT/ND no LE edema no focal neurologic deficits no bladder distension CBC, BMP 05/03/19 23:20 05/03/19 23:20 Current Medications Acetaminophen (Tylenol -) 650 mg PO Q6H PRN PRN Reason: FEVER Cyclosporine (Sandimmune) 100 mg PO DAILY [facility] Last Admin: 05/04/19 11:00 Dose: 100 mg Sodium Chloride (Normal Saline -) 1,000 mls @ 75 mls/hr IV ASDIR [facility] Last Admin: 05/04/19 11:53 Dose: 75 mls/hr Lamivudine (Epivir Oral Solution -) 100 mg PO DAILY [facility] Last Admin: 05/04/19 11:00 Dose: 100 mg Olanzapine (Zyprexa -) 2.5 mg PO HS RYAN Pantoprazole Sodium (Protonix -) 20 mg PO DAILY [facility] Last Admin: 05/04/19 11:53 Dose: 20 mg 73 year old woman with past medical history of CKD (baseline Cr ~1.7), CLL, CHF , HTN, HBV, unilateral hydronephrosis who presented to the ED with fevers and noted to have Cr of 3. 1. EBER on CKD secondary to volume depletoin vs. ATN vs AIN 2. CKD stage 3 3. Chronic hydronephrosis 4. Fevers 5. Acute on chronic anemia 6. Hyponatremia Check urine studies for FeNa, UPCR and Urine eosinophils Trial of IVF: NS at 100cc x 24 hours Transfuse PRBC as needed Consider hematology consult no acute indication for renal replacement therapy keep MAP > 65 avoid neprhotoxins and IV contrast f/u offical report on Renal US Trend renal function and electrolytes daily Thank you Tr Duran DO
--- NOTE | 2019-05-04 17:33 | PN ---
Progress Note (short form) - Note Progress Note: ID CONSULT DICTATED FEVER RECURRENT UTI R/O SEPSIS SECONDARY TO UTI HX ESBL, URINE MDS EOSINOPHILIA AZOTEMIA VANCOMYCIN ALLERGY AWAIT SEPSIS WORKUP EMPIRIC ERTAPENEM CONTACT PRECAUTIONS
--- NOTE | 2019-05-04 18:19 | CONS ---
INFECTIOUS DISEASE CONSULTATION DATE OF CONSULTATION: DATE OF DICTATION: 05/04/2019 HISTORY: The patient is a 73-year-old female with a history of myelodysplastic syndrome, history of pancytopenia, dementia, recurrent urinary tract infections now evaluated for fever. The patient has had recent hospital admissions. She had been admitted to the hospital earlier this month with sepsis syndrome. At the care home, she was noted to have fever and complained of nausea and headache. She was noted to have cloudy urine. She was transferred to the emergency room where patient was febrile 101.2. She was found to be anemic, and transfusion was ordered. She was also noted to have a markedly elevated white blood cell count of 22,000. Patient has a history of myelodysplastic syndrome, however, according to the notes, has not had recent treatment. She is awake and responsive. She complains of nausea. She, otherwise, denies any focal complaint. No complaints of chest pain, shortness of breath, cough, or sputum production. No diarrhea. Denies dysuria or hematuria. PAST MEDICAL HISTORY: Positive for myelodysplastic syndrome, CLL, history of chronic pancytopenia, dementia, congestive heart failure, hypertension, chronic hepatitis B, history of MRSA bacteremia in November 2018. ALLERGIES: VANCOMYCIN. Patient has tolerated rechallenge with VANCOMYCIN in the past. MEDICATIONS: Include Tylenol, cefepime, lamivudine, Protonix. SOCIAL HISTORY: She resides in a correction facility. Suffers from dementia. No active tobacco or alcohol use. SYSTEMS REVIEW: Neurologic: Positive for dementia. Cardiac: Negative chest pain or palpitations. Respiratory: Negative cough or sputum production. Gastrointestinal: As per HPI. Genitourinary: As per HPI. LABORATORY DATA: White count 22.1, 7% neutrophils, 11% lymphocytes, 15% monocytes, 38% eosinophils, 7 myelocytes, 7 promyelocytes, 3 nucleated RBCs. Hematocrit 19.7, platelets 73. Influenza swab negative. Creatinine 3.0. Urinalysis, 61 white cells. Blood and urine cultures are pending. Chest x-ray, no acute infiltrate. PHYSICAL EXAMINATION: General: She is awake and alert but confused. She is supine in bed. No acute distress. Breathing is nonlabored. Vital Signs: Maximum temperature 101.2, blood pressure 118/53, pulse 73 regular, respirations 16 per minute. HEENT: Sclerae anicteric. Heart: Sounds S1, S2. Lungs: Clear. No rhonchi, rales, or wheezing. Abdomen: Soft. No suprapubic or flank tenderness. Extremities: Negative for edema. There is chronic hyperpigmentation present over the left pretibial area. No evidence of cellulitis. There is a bruise noted on the right upper arm. IMPRESSION: 1. Fever. 2. Recurrent urinary tract infection, rule out sepsis secondary to urinary tract infection. 3. History of extended-spectrum beta-lactamase in the urine. 4. Myelodysplastic syndrome. 5. Eosinophilia. 6. Azotemia. 7. History of VANCOMYCIN allergy. PLAN: Patient has been treated with doses of cefepime and STAT doses of daptomycin. Pending sepsis workup, empiric antibiotic coverage with ertapenem adjusted for Azactam. Contact precautions. We will follow. Thank you for the kind referral. JUNI CANO M.D. MARY [id number]
[2019-05-04] MEDS: ERTAPENEM SODIUM 0.5 GM in SODIUM CHLORIDE 50 ML IVPB SCH (18:32)
--- NOTE | 2019-05-04 18:45 | PN ---
Teaching Attending Note Name of Resident: Jay Walton ATTENDING PHYSICIAN STATEMENT I saw and evaluated the patient. I reviewed the resident's note and discussed the case with the resident. I agree with the resident's findings and plan as documented. SUBJECTIVE: No complaints. Came due to fever in [place] OBJECTIVE: Last Vital Signs Temp Pulse Resp BP Pulse Ox 98.2 F 78 20 118/57 L 99 05/04/19 15:06 05/04/19 15:06 05/04/19 15:06 05/04/19 15:06 05/04/19 15:00 General: NAD HEENT: MMM CVS: S1,S2 Lungs: Clear Abdomen: Soft, NT, ND 05/03/19 23:20 05/03/19 23:20 Current Medications Acetaminophen (Tylenol -) 650 mg PO Q6H PRN PRN Reason: FEVER Cyclosporine (Sandimmune) 100 mg PO DAILY [facility] Last Admin: 05/04/19 11:00 Dose: 100 mg Sodium Chloride (Normal Saline -) 1,000 mls @ 100 mls/hr IV ASDIR [facility] Last Admin: 05/04/19 16:59 Dose: 100 mls/hr Ertapenem 0.5 gm/ Sodium (Chloride) 50 mls @ 100 mls/hr IVPB DAILY [facility] Last Admin: 05/04/19 18:32 Dose: 100 mls/hr Lamivudine (Epivir Oral Solution -) 100 mg PO DAILY [facility] Last Admin: 05/04/19 11:00 Dose: 100 mg Olanzapine (Zyprexa -) 2.5 mg PO [facility] Pantoprazole Sodium (Protonix -) 20 mg PO DAILY [facility] Last Admin: 05/04/19 11:53 Dose: 20 mg ASSESSMENT AND PLAN: 73 y/o F h/o dementia, CLL, MDS, Thalassemia minor, HTN, CHF, Hepatitis B who presented to our facility after experiencing a fever at her custodial. History if provided by EMR and somewhat by patient given her orientation x2. Pt received her last chemotherapy in August 2018 and has had multiple admissions with notable worsening MDS. Most of her workup has been performed at [facility] including BM biopsy with (at the time) minimal invasion of BM. 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 Pt during this admission was noted to have normocytic normochromic anemia down to 6.6/19.7 and has received 1U PRBC. Plan: 1) UTI/Fever: Agree with cultures and empiric ertapenem 2) MDS/AML: Upon completion of antibiotics and stabilization can consider hypomethylating agents and venetoclax during this admission if Dr. Garcia agrees 3) EBER on CKD: Consider nephrology evaluation 4) Agree and rest per
[2019-05-04] MEDS: OLANZapine 2.5 MG TABLET PO SCH (21:53)
[2019-05-05 09:11] LABS: BASO % 0.4 % (0-2.0); EOS % 1.1 % (0-4.5); HEMATOCRIT 22.5 % (32.4-45.2); HEMOGLOBIN 7.6 GM/dL (10.7-15.3); LYMPH % 13.5 % (8-40); MCH 28.1 pg (25.7-33.7); MCHC 33.6 g/dl (32.0-36.0); MEAN CELL VOLUME 83.6 fl (80-96); MEAN PLT VOLUME 6.8 fl (7.5-11.1); MONO % 23.9 % (3.8-10.2); NEUT % 61.1 % (42.8-82.8); PLATELET COUNT 58 K/MM3 (134-434); RBC 2.69 M/mm3 (3.60-5.2); RDW 15.5 % (11.6-15.6); WHITE BLOOD COUNT 22.4 K/mm3 (4.0-10.0)
[2019-05-05 09:41] LABS: ALBUMIN 2.5 g/dl (3.4-5.0); BILIRUBIN,TOTAL 0.4 mg/dL (0.2-1); BLOOD UREA NITROGEN 18.1 mg/dL (7-18); CALCIUM 8.8 mg/dL (8.5-10.1); MAGNESIUM 2.1 mg/dL (1.8-2.4); PHOSPHOROUS 3.1 mg/dL (2.5-4.9); POTASSIUM 3.9 mmol/L (3.5-5.1); TOT PROT 5.4 g/dl (6.4-8.2)
[2019-05-05] MEDS: ERTAPENEM SODIUM 0.5 GM in SODIUM CHLORIDE 50 ML IVPB SCH (09:43)
[2019-05-05] MEDS: PANTOPRAZOLE 20 MG TABLET PO SCH (09:43)
[2019-05-05] MEDS: lamiVUDine 10 MG/1 ML BULK BOTTLE PO SCH (09:44)
[2019-05-05 11:02] LABS: ANISOCYTOSIS 0; MACROCYTOSIS 0; PLATELET ESTIMATE DECREASED
--- NOTE | 2019-05-05 12:50 | PN ---
Progress Note, Physician Chief Complaint: awake alert NAD VSS pleasant no c/o no nausea but had 1 diarrhea; will check CDiff no pain - Current Medication List Current Medications: Active Medications Acetaminophen (Tylenol -) 650 mg PO Q6H PRN PRN Reason: FEVER Cyclosporine (Sandimmune) 100 mg PO DAILY [facility] Last Admin: 05/05/19 09:45 Dose: 100 mg Sodium Chloride (Normal Saline -) 1,000 mls @ 100 mls/hr IV ASDIR [facility] Last Admin: 05/04/19 16:59 Dose: 100 mls/hr Ertapenem 0.5 gm/ Sodium (Chloride) 50 mls @ 100 mls/hr IVPB DAILY [facility] Last Admin: 05/05/19 09:43 Dose: 100 mls/hr Lamivudine (Epivir Oral Solution -) 100 mg PO DAILY [facility] Last Admin: 05/05/19 09:44 Dose: 100 mg Olanzapine (Zyprexa -) 2.5 mg PO HS [facility] Last Admin: 05/04/19 21:53 Dose: 2.5 mg Pantoprazole Sodium (Protonix -) 20 mg PO DAILY [facility] Last Admin: 05/05/19 09:43 Dose: 20 mg - Objective Vital Signs: Vital Signs Temperature 98.5 F 05/05/19 07:43 Pulse Rate 70 05/05/19 07:43 Respiratory Rate 20 05/05/19 07:43 Blood Pressure 120/53 L 05/05/19 07:43 O2 Sat by Pulse Oximetry (%) 99 05/04/19 21:00 Constitutional: Yes: No Distress, Calm Eyes: Yes: Conjunctiva Clear HENT: Yes: Atraumatic Neck: Yes: Supple Cardiovascular: Yes: Regular Rate and Rhythm Respiratory: Yes: CTA Bilaterally Gastrointestinal: Yes: Soft. No: Tenderness Genitourinary: No: Hematuria Musculoskeletal: No: Joint Stiffness, Joint Swelling Extremities: No: Cold, Cool, Cyanosis Edema: No Integumentary: No: Rash, Venous Stasis Changes Neurological: Yes: Alert, Oriented ...Motor Strength: WNL Psychiatric: Yes: Alert, Oriented. No: Agitated, Suicidal Ideation Labs: CBC, BMP 05/05/19 07:30 05/05/19 07:30 INR, PTT INR 1.18 (0.83-1.09) H 05/03/19 23:20 - ....Imaging Other: Report Reviewed Assessment/Plan Patient is a 73 year old lady with a significant pmh of CLL, CHF, HTN, HBV who presents yesterday with a fever. h/o UTis renal stones, and cellulitis; h/o UTI ESBL: febrile at admission, also ARF and severe anemia s/p PRBC transfuse for Hg>7-8 diarrhea on ATB check CDiff admit; gentle IVF IV ATB per ID f/u labs and cultures heme onc and renal eval prognosis guarded h/o low PLT and bleeding would not use sq heparin at this point; pt ambulates; falls pfx d/w pt and staff called pt's daughter Dayana left message / phone.
--- NOTE | 2019-05-05 17:37 | PN ---
Progress Note, Physician History of Present Illness: SEATED IN BED EATING DINNER NO COMPLAINTS NO NAUSEA DENIES FEVER/ CHILLS NO C/O DYSURIA TEMPS DOWN AFEBRILE WBC REMAINS ELEVATED NO EOS TODAY URINE C/S PENDING BC GPC GIVEN DOSE OF DAPTO - Current Medication List Current Medications: Active Medications Acetaminophen (Tylenol -) 650 mg PO Q6H PRN PRN Reason: FEVER Cyclosporine (Sandimmune) [address] [facility] Last Admin: 05/05/19 09:45 Dose: 100 mg Sodium Chloride (Normal Saline -) 1,000 mls @ 100 mls/hr IV ASDIR [facility] Last Admin: 05/04/19 16:59 Dose: 100 mls/hr Ertapenem 0.5 gm/ Sodium (Chloride) 50 mls @ 100 mls/hr IVPB DAILY [facility] Last Admin: 05/05/19 09:43 Dose: 100 mls/hr Lamivudine (Epivir Oral Solution -) [address] [facility] Last Admin: 05/05/19 09:44 Dose: 100 mg Olanzapine (Zyprexa -) 2.[address] [facility] Last Admin: 05/04/19 21:53 Dose: 2.5 mg Pantoprazole Sodium (Protonix -) [address] [facility] Last Admin: 05/05/19 09:43 Dose: 20 mg - Objective Vital Signs: Vital Signs Temperature 97.9 F 05/05/19 14:59 Pulse Rate 65 05/05/19 14:59 Respiratory Rate 18 05/05/19 14:59 Blood Pressure 107/54 L 05/05/19 14:59 O2 Sat by Pulse Oximetry (%) 99 05/04/19 21:00 Constitutional: Yes: No Distress Cardiovascular: Yes: Regular Rate and Rhythm, S1, S2 Respiratory: Yes: Rhonchi Gastrointestinal: Yes: Normal Bowel Sounds, Soft. No: Tenderness Edema: LLE: 1+, RLE: 1+ Labs: CBC, BMP 05/05/19 07:30 05/05/19 07:30 INR, PTT INR 1.18 (0.83-1.09) H 05/03/19 23:20 Assessment/Plan FEVER/ LEUKOCYTOSIS +BC GPC RECURRENT UTI HX ESBL AZOTEMIA IMPROVED MDS VANCOMYCIN ALLERGY AWAIT BC, URINE C/S CONTINUE ERTAPENEM REDOSE DAPTOMYCIN AM
--- NOTE | 2019-05-05 19:06 | PN ---
Progress Note, Physician History of Present Illness: Pt seen and examined at bedside. She is awake and alert. She denies shortness of breath. - Current Medication List Current Medications: Active Medications Acetaminophen (Tylenol -) 650 mg PO Q6H PRN PRN Reason: FEVER Cyclosporine (Sandimmune) 100 mg PO DAILY [facility] Last Admin: 05/05/19 09:45 Dose: 100 mg Sodium Chloride (Normal Saline -) 1,000 mls @ 100 mls/hr IV ASDIR [facility] Last Admin: 05/04/19 16:59 Dose: 100 mls/hr Ertapenem 0.5 gm/ Sodium (Chloride) 50 mls @ 100 mls/hr IVPB DAILY [facility] Last Admin: 05/05/19 09:43 Dose: 100 mls/hr Daptomycin 450 mg/ Sodium (Chloride) 50 mls @ 50 mls/hr IVPB ONCE ONE; Protocol Stop: 05/06/19 08:59 Lactobacillus Acidophilus (Bacid -) 1 tab PO DAILY [facility] Lamivudine (Epivir Oral Solution -) 100 mg PO DAILY [facility] Last Admin: 05/05/19 09:44 Dose: 100 mg Olanzapine (Zyprexa -) 2.5 mg PO HS [facility] Last Admin: 05/04/19 21:53 Dose: 2.5 mg Pantoprazole Sodium (Protonix -) 20 mg PO DAILY [facility] Last Admin: 05/05/19 09:43 Dose: 20 mg - Objective Vital Signs: Vital Signs Temperature 97.9 F 05/05/19 14:59 Pulse Rate 65 05/05/19 14:59 Respiratory Rate 18 05/05/19 14:59 Blood Pressure 107/54 L 05/05/19 14:59 O2 Sat by Pulse Oximetry (%) 99 05/04/19 21:00 Constitutional: Yes: Calm Eyes: Yes: Conjunctiva Clear HENT: Yes: Atraumatic Neck: Yes: Supple Cardiovascular: Yes: S1, S2 Respiratory: Yes: CTA Bilaterally Gastrointestinal: Yes: Soft Genitourinary: Yes: WNL Musculoskeletal: Yes: WNL Edema: LLE: Trace, RLE: Trace Neurological: Yes: Oriented Psychiatric: Yes: Oriented Labs: CBC, BMP 05/05/19 07:30 05/05/19 07:30 INR, PTT INR 1.18 (0.83-1.09) H 05/03/19 23:20 Assessment/Plan Current Medications Generic Name Dose Route Start Last Admin Trade Name Frestacey PRN Reason Stop Dose Admin Acetaminophen 650 mg 05/04/19 07:53 Tylenol - PO Q6H PRN FEVER Cyclosporine 100 mg 05/04/19 10:00 05/05/19 09:45 Sandimmune PO 100 mg DAILY [facility] Administration Sodium Chloride 1,000 mls @ 100 mls/hr 05/04/19 15:01 05/04/19 16:59 Normal Saline - IV 100 mls/hr ASDIR [facility] Administration Ertapenem 0.5 gm/ Sodium 50 mls @ 100 mls/hr 05/04/19 17:45 05/05/19 09:43 Chloride IVPB 100 mls/hr DAILY [facility] Administration Daptomycin 450 mg/ Sodium 50 mls @ 100 mls/hr 05/06/19 08:00 Chloride IVPB 05/06/19 08:29 ONCE ONE Protocol Lactobacillus Acidophilus 1 tab 05/06/19 10:00 Bacid - PO DAILY [facility] Lamivudine 100 mg 05/04/19 10:00 05/05/19 09:44 Epivir Oral Solution - PO 100 mg DAILY [facility] Administration Olanzapine 2.5 mg 05/04/19 22:00 05/04/19 21:53 Zyprexa - PO 2.5 mg HS [facility] Administration Pantoprazole Sodium 20 mg 05/04/19 10:00 05/05/19 09:43 Protonix - PO 20 mg DAILY [facility] Administration 1. EBER 2. CKD stage 3 3. Chronic hydronephrosis 4. Fevers 5. Acute on chronic anemia 6. Hyponatremia Plan - sodium is improved - clinical orthoptist is improved - decrease rate of saline - repeat labs in am - follow urine studies
--- NOTE | 2019-05-05 22:01 | PN ---
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 On daptomycin/ ertapenem Continue supportive care will consider decitabine this admission
[2019-05-05] MEDS: OLANZapine 2.5 MG TABLET PO SCH (23:08)
[2019-05-05] MEDS: SODIUM CHLORIDE 1,000 ML IV SCH (23:09)
[2019-05-06] MEDS ORDERED: DAPTOMYCIN 450 MG in SODIUM CHLORIDE 50 ML IVPB ONE (08:00)
[2019-05-06] MEDS: PANTOPRAZOLE 20 MG TABLET PO SCH (09:35)
[2019-05-06] MEDS: LACTOBACILLUS ACIDOPHILUS 1 TABLET PO SCH (09:35)
[2019-05-06] MEDS: ERTAPENEM SODIUM 0.5 GM in SODIUM CHLORIDE 50 ML IVPB SCH (09:35)
[2019-05-06] MEDS: lamiVUDine 10 MG/1 ML BULK BOTTLE PO SCH (09:36)
[2019-05-06] MEDS: SODIUM CHLORIDE 1,000 ML IV SCH (09:37)
--- NOTE | 2019-05-06 09:52 | PN ---
Progress Note, Physician Chief Complaint: in bed NAD VSS afebrile - Current Medication List Current Medications: Active Medications Acetaminophen (Tylenol -) 650 mg PO Q6H PRN PRN Reason: FEVER Cyclosporine (Sandimmune) 100 mg PO DAILY [facility] Last Admin: 05/06/19 09:36 Dose: 100 mg Ertapenem 0.5 gm/ Sodium (Chloride) 50 mls @ 100 mls/hr IVPB DAILY [facility] Last Admin: 05/06/19 09:35 Dose: 100 mls/hr Sodium Chloride (Normal Saline -) 1,000 mls @ 50 mls/hr IV ASDIR [facility] Last Admin: 05/06/19 09:37 Dose: 50 mls/hr Lactobacillus Acidophilus (Bacid -) 1 tab PO DAILY [facility] Last Admin: 05/06/19 09:35 Dose: 1 tab Lamivudine (Epivir Oral Solution -) 100 mg PO DAILY [facility] Last Admin: 05/06/19 09:36 Dose: 100 mg Olanzapine (Zyprexa -) 2.5 mg PO HS [facility] Last Admin: 05/05/19 23:08 Dose: 2.5 mg Pantoprazole Sodium (Protonix -) 20 mg PO DAILY [facility] Last Admin: 05/06/19 09:35 Dose: 20 mg - Objective Vital Signs: Vital Signs Temperature 98.2 F 05/06/19 06:00 Pulse Rate 62 05/06/19 06:00 Respiratory Rate 20 05/06/19 06:00 Blood Pressure 136/74 05/06/19 06:00 O2 Sat by Pulse Oximetry (%) 98 05/05/19 21:00 Constitutional: Yes: No Distress Eyes: Yes: Conjunctiva Clear HENT: Yes: Atraumatic Neck: Yes: Supple Cardiovascular: Yes: Regular Rate and Rhythm Respiratory: Yes: CTA Bilaterally Gastrointestinal: Yes: Soft. No: Tenderness Genitourinary: No: Hematuria Musculoskeletal: No: Joint Stiffness, Joint Swelling Extremities: No: Cold, Cool Edema: No Integumentary: No: Rash Neurological: Yes: Alert, Oriented ...Motor Strength: WNL Psychiatric: Yes: Alert, Oriented. No: Agitated, Suicidal Ideation Labs: CBC, BMP 05/05/19 07:30 05/05/19 07:30 INR, PTT INR 1.18 (0.83-1.09) H 05/03/19 23:20 - ....Imaging Other: Report Reviewed Assessment/Plan Patient is a 73 year old lady with a significant pmh of CLL, CHF, HTN, HBV who presents yesterday with a fever. h/o UTis renal stones, and cellulitis; h/o UTI ESBL: febrile at admission, also ARF and severe anemia s/p PRBC transfuse for Hg>7-8 diarrhea on ATB check CDiff gentle IVF; IV ATB per ID f/u labs and cultures heme onc and renal eval prognosis guarded d.w pt and staff
[2019-05-06 11:50] LABS: BASO % 0.3 % (0-2.0); EOS % 1.8 % (0-4.5); HEMATOCRIT 32.6 % (32.4-45.2); HEMOGLOBIN 11.1 GM/dL (10.7-15.3); LYMPH % 14.4 % (8-40); MCH 29.2 pg (25.7-33.7); MCHC 34.2 g/dl (32.0-36.0); MEAN CELL VOLUME 85.6 fl (80-96); MONO % 17.9 % (3.8-10.2); NEUT % 65.6 % (42.8-82.8); PLATELET COUNT 50 K/MM3 (134-434); RBC 3.81 M/mm3 (3.60-5.2); RDW 15.1 % (11.6-15.6); WHITE BLOOD COUNT 17.8 K/mm3 (4.0-10.0)
[2019-05-06 12:22] LABS: ALBUMIN 2.5 g/dl (3.4-5.0); BILIRUBIN,TOTAL 0.3 mg/dL (0.2-1); BLOOD UREA NITROGEN 15.5 mg/dL (7-18); CALCIUM 8.8 mg/dL (8.5-10.1); CREATININE 1.5 mg/dL (0.55-1.3); POTASSIUM 4.1 mmol/L (3.5-5.1); TOT PROT 5.4 g/dl (6.4-8.2)
--- NOTE | 2019-05-06 14:19 | PN ---
Progress Note (short form) - Note Progress Note: feels well no complaints Vital Signs Period Temp Pulse Resp BP Sys/Borjas Pulse Ox Last 24 Hr 97.8 F-98.6 F 54-65 16-20 103-141/54-74 96-98 cor-rrr llungs clear abd soft,nt ext no edema CBC, BMP 05/06/19 10:59 05/06/19 10:59 Microbiology 05/04/19 00:05 Urine - Urine Clean Catch Urine Culture - Final Citrobacter Freundii Enterococcus Faecalis 05/05/19 11:38 Blood - Peripheral Venous Blood Culture - Preliminary NO GROWTH OBTAINED AFTER 24 HOURS, INCUBATION TO CONTINUE FOR 4 DAYS. 05/05/19 11:25 Blood - Peripheral Venous Blood Culture - Preliminary NO GROWTH OBTAINED AFTER 24 HOURS, INCUBATION TO CONTINUE FOR 4 DAYS. 05/03/19 23:20 Blood - Peripheral Venous Blood Culture - Preliminary Staphylococcus Coagulase Neg 05/03/19 23:20 Blood - Peripheral Venous Blood Culture - Preliminary Staphylococcus Coagulase Neg Pending Organism Pending Organism#2 05/03/19 23:46 Throat Throat Culture - Final NO BETA HEMOLYTIC STREPTOCOCCI ISOLATED a/p bacteremia- s/p daptomycin today, will f/u cultures in am UTI- continue ertapenem EBER-improving AML/CLL
[2019-05-06 15:42] LABS: ANISOCYTOSIS 0; MACROCYTOSIS 0; PLATELET ESTIMATE DECREASED
--- NOTE | 2019-05-06 17:10 | PN ---
Progress Note, Physician History of Present Illness: Pt seen and examined at bedside. She is awake and appears comfortable. - Current Medication List Current Medications: Active Medications Acetaminophen (Tylenol -) 650 mg PO Q6H PRN PRN Reason: FEVER Cyclosporine (Sandimmune) 100 mg PO DAILY [facility] Last Admin: 05/06/19 09:36 Dose: 100 mg Ertapenem 0.5 gm/ Sodium (Chloride) 50 mls @ 100 mls/hr IVPB DAILY [facility] Last Admin: 05/06/19 09:35 Dose: 100 mls/hr Sodium Chloride (Normal Saline -) 1,000 mls @ 50 mls/hr IV ASDIR [facility] Last Admin: 05/06/19 09:37 Dose: 50 mls/hr Lactobacillus Acidophilus (Bacid -) 1 tab PO DAILY [facility] Last Admin: 05/06/19 09:35 Dose: 1 tab Lamivudine (Epivir Oral Solution -) 100 mg PO DAILY [facility] Last Admin: 05/06/19 09:36 Dose: 100 mg Olanzapine (Zyprexa -) 2.5 mg PO HS [facility] Last Admin: 05/05/19 23:08 Dose: 2.5 mg Pantoprazole Sodium (Protonix -) 20 mg PO DAILY [facility] Last Admin: 05/06/19 09:35 Dose: 20 mg - Objective Vital Signs: Vital Signs Temperature 98.0 F 05/06/19 14:53 Pulse Rate 69 05/06/19 14:53 Respiratory Rate 18 05/06/19 14:53 Blood Pressure 110/67 05/06/19 14:53 O2 Sat by Pulse Oximetry (%) 96 05/06/19 10:00 Constitutional: Yes: Calm Eyes: Yes: Conjunctiva Clear HENT: Yes: Atraumatic Neck: Yes: Supple Cardiovascular: Yes: S1, S2 Respiratory: Yes: CTA Bilaterally Gastrointestinal: Yes: Normal Bowel Sounds, Soft Genitourinary: Yes: WNL Musculoskeletal: Yes: WNL Edema: No Neurological: Yes: Oriented Psychiatric: Yes: Oriented Labs: CBC, BMP 05/06/19 10:59 05/06/19 10:59 INR, PTT INR 1.18 (0.83-1.09) H 05/03/19 23:20 Assessment/Plan Current Medications Generic Name Dose Route Start Last Admin Trade Name Freq PRN Reason Stop Dose Admin Acetaminophen 650 mg 02/06/20 07:53 Tylenol - PO Q6H PRN FEVER Cyclosporine 100 mg 05/04/19 10:00 05/06/19 09:36 Sandimmune PO 100 mg DAILY [facility] Administration Ertapenem 0.5 gm/ Sodium 50 mls @ 100 mls/hr 05/04/19 17:45 05/06/19 09:35 Chloride IVPB 100 mls/hr DAILY [facility] Administration Sodium Chloride 1,000 mls @ 50 mls/hr 05/05/19 19:06 05/06/19 09:37 Normal Saline - IV 50 mls/hr ASDIR [facility] Administration Lactobacillus Acidophilus 1 tab 05/06/19 10:00 05/06/19 09:35 Bacid - PO 1 tab DAILY [facility] Administration Lamivudine 100 mg 05/04/19 10:00 05/06/19 09:36 Epivir Oral Solution - PO 100 mg DAILY [facility] Administration Olanzapine 2.5 mg 05/04/19 22:00 05/05/19 23:08 Zyprexa - PO 2.5 mg HS [facility] Administration Pantoprazole Sodium 20 mg 05/04/19 10:00 05/06/19 09:35 Protonix - PO 20 mg DAILY [facility] Administration 1. EBER 2. CKD stage 3 3. Chronic hydronephrosis 4. Fevers 5. Acute on chronic anemia 6. Hyponatremia Plan - renal function improving - cont fluids - repeat labs in am - bp stable - follow urine studies - likely eber in part from pre-renal disease as she did respond to fluids
--- NOTE | 2019-05-06 17:57 | PN ---
Progress Note, Physician History of Present Illness: No complaints. Denies bleeding. - Current Medication List Current Medications: Active Medications Acetaminophen (Tylenol -) 650 mg PO Q6H PRN PRN Reason: FEVER Cyclosporine (Sandimmune) 100 mg PO DAILY [facility] Last Admin: 05/06/19 09:36 Dose: 100 mg Ertapenem 0.5 gm/ Sodium (Chloride) 50 mls @ 100 mls/hr IVPB DAILY [facility] Last Admin: 05/06/19 09:35 Dose: 100 mls/hr Sodium Chloride (Normal Saline -) 1,000 mls @ 50 mls/hr IV ASDIR [facility] Last Admin: 05/06/19 09:37 Dose: 50 mls/hr Lactobacillus Acidophilus (Bacid -) 1 tab PO DAILY [facility] Last Admin: 05/06/19 09:35 Dose: 1 tab Lamivudine (Epivir Oral Solution -) 100 mg PO DAILY [facility] Last Admin: 05/06/19 09:36 Dose: 100 mg Olanzapine (Zyprexa -) 2.5 mg PO HS [facility] Last Admin: 05/05/19 23:08 Dose: 2.5 mg Pantoprazole Sodium (Protonix -) 20 mg PO DAILY [facility] Last Admin: 05/06/19 09:35 Dose: 20 mg - Objective Vital Signs: Vital Signs Temperature 98.0 F 05/06/19 14:53 Pulse Rate 69 05/06/19 14:53 Respiratory Rate 18 05/06/19 14:53 Blood Pressure 110/67 05/06/19 14:53 O2 Sat by Pulse Oximetry (%) 96 05/06/19 10:00 Constitutional: Yes: No Distress, Calm Eyes: Yes: Conjunctiva Clear Respiratory: Yes: Regular, CTA Bilaterally Gastrointestinal: Yes: Soft. No: Distention, Tenderness Edema: No Labs: CBC, BMP 05/06/19 10:59 05/06/19 10:59 INR, PTT INR 1.18 (0.83-1.09) H 05/03/19 23:20 Assessment/Plan 73F with CLL, MDSAML admitted with fever 2/2 coag neg staph bacteremia and GNR UTI. On daptomycin/ertapenem Continue supportive care Will consider decitabine this admission
[2019-05-06] MEDS ORDERED: PT OWN MED DRAWER 7, Y5N ONE (21:45)
[2019-05-06] MEDS: OLANZapine 2.5 MG TABLET PO SCH (21:47)
[2019-05-07 08:20] LABS: BASO % 1.5 % (0-2.0); EOS % 1.9 % (0-4.5); HEMATOCRIT 34.1 % (32.4-45.2); HEMOGLOBIN 11.7 GM/dL (10.7-15.3); LYMPH % 19.7 % (8-40); MCH 29.5 pg (25.7-33.7); MCHC 34.3 g/dl (32.0-36.0); MONO % 18.4 % (3.8-10.2); NEUT % 58.5 % (42.8-82.8); PLATELET COUNT 76 K/MM3 (134-434); RBC 3.97 M/mm3 (3.60-5.2); RDW 15.5 % (11.6-15.6); WHITE BLOOD COUNT 20.1 K/mm3 (4.0-10.0)
[2019-05-07 08:48] LABS: ALBUMIN 2.5 g/dl (3.4-5.0); BILIRUBIN,TOTAL 0.5 mg/dL (0.2-1); BLOOD UREA NITROGEN 11.6 mg/dL (7-18); CALCIUM 8.8 mg/dL (8.5-10.1); CREATININE 1.2 mg/dL (0.55-1.3); POTASSIUM 4.2 mmol/L (3.5-5.1); TOT PROT 5.8 g/dl (6.4-8.2)
--- NOTE | 2019-05-07 08:55 | PN ---
Progress Note, Physician Chief Complaint: in bed NAD Afebrile no diarrhea no pain no c/o - Current Medication List Current Medications: Active Medications Acetaminophen (Tylenol -) 650 mg PO Q6H PRN PRN Reason: FEVER Cyclosporine (Sandimmune) 100 mg PO DAILY [facility] Last Admin: 05/06/19 09:36 Dose: 100 mg Ertapenem 0.5 gm/ Sodium (Chloride) 50 mls @ 100 mls/hr IVPB DAILY [facility] Last Admin: 05/06/19 09:35 Dose: 100 mls/hr Sodium Chloride (Normal Saline -) 1,000 mls @ 50 mls/hr IV ASDIR [facility] Last Admin: 05/06/19 09:37 Dose: 50 mls/hr Lactobacillus Acidophilus (Bacid -) 1 tab PO DAILY [facility] Last Admin: 05/06/19 09:35 Dose: 1 tab Lamivudine (Epivir Oral Solution -) 100 mg PO DAILY [facility] Last Admin: 05/06/19 09:36 Dose: 100 mg Olanzapine (Zyprexa -) 2.5 mg PO HS [facility] Last Admin: 05/06/19 21:47 Dose: 2.5 mg Pantoprazole Sodium (Protonix -) 20 mg PO DAILY [facility] Last Admin: 05/06/19 09:35 Dose: 20 mg - Objective Vital Signs: Vital Signs Temperature 98.2 F 05/07/19 06:00 Pulse Rate 68 05/07/19 06:00 Respiratory Rate 18 05/07/19 06:00 Blood Pressure 120/64 05/07/19 06:00 O2 Sat by Pulse Oximetry (%) 97 05/06/19 21:00 Constitutional: Yes: No Distress Eyes: Yes: Conjunctiva Clear HENT: Yes: Atraumatic Neck: Yes: Supple Cardiovascular: Yes: Regular Rate and Rhythm Respiratory: Yes: CTA Bilaterally Gastrointestinal: Yes: Soft. No: Tenderness Genitourinary: No: Hematuria Musculoskeletal: No: Joint Stiffness, Joint Swelling Extremities: No: Cold, Cool Edema: No Integumentary: No: Rash, Venous Stasis Changes Neurological: Yes: Alert, Oriented ...Motor Strength: WNL Psychiatric: Yes: Alert, Oriented. No: Agitated, Suicidal Ideation Labs: CBC, BMP 05/07/19 07:03 05/07/19 07:03 INR, PTT INR 1.18 (0.83-1.09) H 05/03/19 23:20 - ....Imaging Other: Report Reviewed Assessment/Plan Patient is a 73 year old lady with a significant pmh of CLL, CHF, HTN, HBV who presents yesterday with a fever. h/o UTis renal stones, and cellulitis; h/o UTI ESBL, sepsis, also ARF and severe anemia s/p PRBC transfuse for Hg>7-8 diarrhea on ATB check CDiff gentle IVF; IV ATB per ID f/u labs and cultures heme onc and renal eval prognosis guarded d.w pt and staff
[2019-05-07] MEDS ORDERED: PT OWN MED DRAWER 7, Y5N ONE ×2 (09:59→10:55)
[2019-05-07] MEDS: PANTOPRAZOLE 20 MG TABLET PO SCH (10:53)
[2019-05-07] MEDS: LACTOBACILLUS ACIDOPHILUS 1 TABLET PO SCH (10:53)
[2019-05-07] MEDS: lamiVUDine 10 MG/1 ML BULK BOTTLE PO SCH (10:53)
[2019-05-07] MEDS: SODIUM CHLORIDE 1,000 ML IV SCH (10:54)
[2019-05-07] MEDS: ERTAPENEM SODIUM 0.5 GM in SODIUM CHLORIDE 50 ML IVPB SCH (10:57)
[2019-05-07 14:18] LABS: ANISOCYTOSIS 0; MACROCYTOSIS 0; PLATELET ESTIMATE DECREASED
--- NOTE | 2019-05-07 18:19 | PN ---
Progress Note, Physician History of Present Illness: No complaints. Denies bleeding, pain, chills - Current Medication List Current Medications: Active Medications Acetaminophen (Tylenol -) 650 mg PO Q6H PRN PRN Reason: FEVER Cyclosporine (Sandimmune) 100 mg PO DAILY [facility] Last Admin: 05/07/19 10:53 Dose: 100 mg Ertapenem 0.5 gm/ Sodium (Chloride) 50 mls @ 100 mls/hr IVPB DAILY [facility] Last Admin: 05/07/19 10:57 Dose: 100 mls/hr Sodium Chloride (Normal Saline -) 1,000 mls @ 50 mls/hr IV ASDIR [facility] Last Admin: 05/07/19 10:54 Dose: 50 mls/hr Lactobacillus Acidophilus (Bacid -) 1 tab PO DAILY [facility] Last Admin: 05/07/19 10:53 Dose: 1 tab Lamivudine (Epivir Oral Solution -) 100 mg PO DAILY [facility] Last Admin: 05/07/19 10:53 Dose: 100 mg Olanzapine (Zyprexa -) 2.5 mg PO HS [facility] Last Admin: 05/06/19 21:47 Dose: 2.5 mg Pantoprazole Sodium (Protonix -) 20 mg PO DAILY [facility] Last Admin: 05/07/19 10:53 Dose: 20 mg - Objective Vital Signs: Vital Signs Temperature 97.9 F 05/07/19 15:02 Pulse Rate 67 05/07/19 15:02 Respiratory Rate 18 05/07/19 15:02 Blood Pressure 142/71 05/07/19 15:02 O2 Sat by Pulse Oximetry (%) 97 05/07/19 09:00 Constitutional: Yes: No Distress Eyes: Yes: Conjunctiva Clear Cardiovascular: Yes: Regular Rate and Rhythm Respiratory: Yes: Regular, CTA Bilaterally Edema: No Labs: CBC, BMP 05/07/19 07:03 05/07/19 07:03 INR, PTT INR 1.18 (0.83-1.09) H 05/03/19 23:20 Assessment/Plan 73F with CLL, MDSAML admitted with fever 2/2 coag neg staph bacteremia and GNR UTI. On daptomycin/ertapenem Continue supportive care Will consider decitabine this admission
--- NOTE | 2019-05-07 18:36 | PN ---
Progress Note, Physician History of Present Illness: Pt seen and examined at bedside. She is awake and appears comfortable. - Current Medication List Current Medications: Active Medications Acetaminophen (Tylenol -) 650 mg PO Q6H PRN PRN Reason: FEVER Cyclosporine (Sandimmune) 100 mg PO DAILY [facility] Last Admin: 05/07/19 10:53 Dose: 100 mg Ertapenem 0.5 gm/ Sodium (Chloride) 50 mls @ 100 mls/hr IVPB DAILY [facility] Last Admin: 05/07/19 10:57 Dose: 100 mls/hr Sodium Chloride (Normal Saline -) 1,000 mls @ 50 mls/hr IV ASDIR [facility] Last Admin: 05/07/19 10:54 Dose: 50 mls/hr Lactobacillus Acidophilus (Bacid -) 1 tab PO DAILY [facility] Last Admin: 05/07/19 10:53 Dose: 1 tab Lamivudine (Epivir Oral Solution -) 100 mg PO DAILY [facility] Last Admin: 05/07/19 10:53 Dose: 100 mg Olanzapine (Zyprexa -) 2.5 mg PO HS [facility] Last Admin: 05/06/19 21:47 Dose: 2.5 mg Pantoprazole Sodium (Protonix -) 20 mg PO DAILY [facility] Last Admin: 05/07/19 10:53 Dose: 20 mg - Objective Vital Signs: Vital Signs Temperature 97.9 F 05/07/19 15:02 Pulse Rate 67 05/07/19 15:02 Respiratory Rate 18 05/07/19 15:02 Blood Pressure 142/71 05/07/19 15:02 O2 Sat by Pulse Oximetry (%) 97 05/07/19 09:00 Constitutional: Yes: Calm Eyes: Yes: Conjunctiva Clear HENT: Yes: Atraumatic Neck: Yes: Supple Cardiovascular: Yes: S1, S2 Respiratory: Yes: CTA Bilaterally Gastrointestinal: Yes: Normal Bowel Sounds, Soft Genitourinary: Yes: WNL Musculoskeletal: Yes: WNL Edema: No Neurological: Yes: Oriented Psychiatric: Yes: Oriented Labs: CBC, BMP 05/07/19 07:03 05/07/19 07:03 INR, PTT INR 1.18 (0.83-1.09) H 05/03/19 23:20 Assessment/Plan Current Medications Generic Name Dose Route Start Last Admin Trade Name Freq PRN Reason Stop Dose Admin Acetaminophen 650 mg 02/06/20 07:53 Tylenol - PO Q6H PRN FEVER Cyclosporine 100 mg 05/04/19 10:00 05/07/19 10:53 Sandimmune PO 100 mg DAILY [facility] Administration Ertapenem 0.5 gm/ Sodium 50 mls @ 100 mls/hr 05/04/19 17:45 05/07/19 10:57 Chloride IVPB 100 mls/hr DAILY [facility] Administration Sodium Chloride 1,000 mls @ 50 mls/hr 05/05/19 19:06 05/07/19 10:54 Normal Saline - IV 50 mls/hr ASDIR [facility] Administration Lactobacillus Acidophilus 1 tab 05/06/19 10:00 05/07/19 10:53 Bacid - PO 1 tab DAILY [facility] Administration Lamivudine 100 mg 05/04/19 10:00 05/07/19 10:53 Epivir Oral Solution - PO 100 mg DAILY [facility] Administration Olanzapine 2.5 mg 05/04/19 22:00 05/06/19 21:47 Zyprexa - PO 2.5 mg HS [facility] Administration Pantoprazole Sodium 20 mg 05/04/19 10:00 05/07/19 10:53 Protonix - PO 20 mg DAILY [facility] Administration 1. EBER 2. CKD stage 3 3. Chronic hydronephrosis 4. Fevers 5. Acute on chronic anemia 6. 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
[2019-05-07] MEDS: OLANZapine 2.5 MG TABLET PO SCH (23:12)
--- NOTE | 2019-05-08 08:01 | PN ---
Progress Note, Physician Chief Complaint: had 1 episode of epistaxis, will check CBC if low PLT will transfuse afebrile no c/o - Current Medication List Current Medications: Active Medications Acetaminophen (Tylenol -) 650 mg PO Q6H PRN PRN Reason: FEVER Cyclosporine (Sandimmune) [address] [facility] Last Admin: 05/07/19 10:53 Dose: 100 mg Ertapenem 0.5 gm/ Sodium (Chloride) 50 mls @ 100 mls/hr IVPB DAILY [facility] Last Admin: 05/07/19 10:57 Dose: 100 mls/hr Sodium Chloride (Normal Saline -) 1,000 mls @ 50 mls/hr IV ASDIR [facility] Last Admin: 05/07/19 10:54 Dose: 50 mls/hr Lactobacillus Acidophilus (Bacid -) [address] [facility] Last Admin: 05/07/19 10:53 Dose: 1 tab Lamivudine (Epivir Oral Solution -) [address] [facility] Last Admin: 05/07/19 10:53 Dose: 100 mg Olanzapine (Zyprexa -) 2.[address] [facility] Last Admin: 05/07/19 23:12 Dose: 2.5 mg Pantoprazole Sodium (Protonix -) [address] [facility] Last Admin: 05/07/19 10:53 Dose: 20 mg - Objective Vital Signs: Vital Signs Temperature 98.2 F 05/08/19 06:50 Pulse Rate 85 05/08/19 06:50 Respiratory Rate 20 05/08/19 06:50 Blood Pressure 168/83 05/08/19 06:50 O2 Sat by Pulse Oximetry (%) 97 05/07/19 21:00 Constitutional: Yes: No Distress, Calm Eyes: Yes: Conjunctiva Clear HENT: Yes: Atraumatic Neck: Yes: Supple Cardiovascular: Yes: Regular Rate and Rhythm Respiratory: Yes: CTA Bilaterally Gastrointestinal: Yes: Soft. No: Tenderness Genitourinary: No: Hematuria Musculoskeletal: No: Joint Stiffness, Joint Swelling Extremities: No: Cold, Cool Edema: No Integumentary: No: Rash Neurological: Yes: Alert, Oriented ...Motor Strength: WNL Psychiatric: Yes: Alert, Oriented. No: Agitated Labs: CBC, BMP 05/07/19 07:03 05/07/19 07:03 INR, PTT INR 1.18 (0.83-1.09) H 05/03/19 23:20 - ....Imaging Other: Report Reviewed Assessment/Plan Patient is a 73 year old lady with a significant pmh of CLL, CHF, HTN, HBV who presents yesterday with a fever. h/o UTis renal stones, and cellulitis; h/o UTI ESBL, sepsis, also ARF and severe anemia s/p PRBC epistaxis: check CBC stat if PLT<50k transfuse 1 U PRBC; heme f/u; gentle IVF; IV ATB per ID DVT pfx ambulation not on sq heparin or AC prognosis guarded d.w pt and staff
[2019-05-08 09:54] LABS: BLOOD UREA NITROGEN 8.4 mg/dL (7-18); CALCIUM 7.9 mg/dL (8.5-10.1); CREATININE 0.9 mg/dL (0.55-1.3); POTASSIUM 3.1 mmol/L (3.5-5.1)
[2019-05-08] MEDS: ERTAPENEM SODIUM 0.5 GM in SODIUM CHLORIDE 50 ML IVPB SCH (10:12)
[2019-05-08] MEDS: PANTOPRAZOLE 20 MG TABLET PO SCH (10:12)
[2019-05-08] MEDS: LACTOBACILLUS ACIDOPHILUS 1 TABLET PO SCH (10:12)
[2019-05-08] MEDS: lamiVUDine 10 MG/1 ML BULK BOTTLE PO SCH (10:13)
[2019-05-08] MEDS ORDERED: POTASSIUM CHLORIDE ORAL LIQUID 20 MEQ/15 ML PO ONE (10:40)
--- NOTE | 2019-05-08 12:36 | PN ---
Progress Note, Physician History of Present Illness: SEATED IN BED EATING LUNCH NO COMPLAINTS NO NAUSEA DENIES FEVER/ CHILLS NO C/O DYSURIA TEMPS DOWN AFEBRILE WBC REMAINS ELEVATED BC MIXED ORGANISMS C/W CONTAMINATION - Current Medication List Current Medications: Active Medications Acetaminophen (Tylenol -) 650 mg PO Q6H PRN PRN Reason: FEVER Cyclosporine (Sandimmune) 100 mg PO DAILY [facility] Last Admin: 05/08/19 10:13 Dose: 100 mg Ertapenem 0.5 gm/ Sodium (Chloride) 50 mls @ 100 mls/hr IVPB DAILY [facility] Last Admin: 05/08/19 10:12 Dose: 100 mls/hr Sodium Chloride (Normal Saline -) 1,000 mls @ 50 mls/hr IV ASDIR [facility] Last Admin: 05/07/19 10:54 Dose: 50 mls/hr Lactobacillus Acidophilus (Bacid -) 1 tab PO DAILY [facility] Last Admin: 05/08/19 10:12 Dose: 1 tab Lamivudine (Epivir Oral Solution -) 100 mg PO DAILY [facility] Last Admin: 05/08/19 10:13 Dose: 100 mg Olanzapine (Zyprexa -) 2.5 mg PO HS [facility] Last Admin: 05/07/19 23:12 Dose: 2.5 mg Pantoprazole Sodium (Protonix -) 20 mg PO DAILY [facility] Last Admin: 05/08/19 10:12 Dose: 20 mg - Objective Vital Signs: Vital Signs Temperature 98.2 F 05/08/19 06:50 Pulse Rate 85 05/08/19 06:50 Respiratory Rate 20 05/08/19 06:50 Blood Pressure 168/83 05/08/19 06:50 O2 Sat by Pulse Oximetry (%) 97 05/07/19 21:00 Constitutional: Yes: No Distress Cardiovascular: Yes: Regular Rate and Rhythm, S1, S2 Respiratory: Yes: Diminished Gastrointestinal: Yes: Normal Bowel Sounds, Soft. No: Tenderness Edema: No Labs: CBC, BMP 05/07/19 07:03 05/08/19 08:05 INR, PTT INR 1.18 (0.83-1.09) H 05/03/19 23:20 Assessment/Plan FEVER IMPROVED LEUKOCYTOSIS +BC C/W CONTAMINATION RECURRENT UTI HX ESBL AZOTEMIA RESOLVED MDS VANCOMYCIN ALLERGY SUBSTITUTE NITROFURANTOIN X 7D
--- NOTE | 2019-05-08 12:48 | PN ---
Progress Note (short form) - Note Progress Note: Renal follow up for EBER Seen and examined at the bedside awake and alert reports occasional nausea able to tolerate breakfast making urine on IVF no sob, cp, fever or chills Vital Signs Temperature 98.2 F 05/08/19 06:50 Pulse Rate 85 05/08/19 06:50 Respiratory Rate 20 05/08/19 06:50 Blood Pressure 168/83 05/08/19 06:50 O2 Sat by Pulse Oximetry (%) 97 05/07/19 21:00 Intake & Output 05/05/19 05/06/19 05/07/19 05/08/19 23:59 23:59 23:59 23:59 Intake Total 1610 2960 2260 Balance 1610 2960 2260 Weight 51.71 kg 52.844 kg 51.88 kg 51.71 kg NAD RRR, no M/R CTA soft NT/ND no LE edema CBC, BMP 05/07/19 07:03 05/08/19 08:05 Current Medications Acetaminophen (Tylenol -) 650 mg PO Q6H PRN PRN Reason: FEVER Cyclosporine (Sandimmune) 100 mg PO DAILY [facility] Last Admin: 05/08/19 10:13 Dose: 100 mg Sodium Chloride (Normal Saline -) 1,000 mls @ 50 mls/hr IV ASDIR [facility] Last Admin: 05/07/19 10:54 Dose: 50 mls/hr Lactobacillus Acidophilus (Bacid -) 1 tab PO DAILY [facility] Last Admin: 05/08/19 10:12 Dose: 1 tab Lamivudine (Epivir Oral Solution -) 100 mg PO DAILY [facility] Last Admin: 05/08/19 10:13 Dose: 100 mg Nitrofurantoin Macrocrystals (Macrodantin -) 50 mg PO Q6HPO [facility] Olanzapine (Zyprexa -) 2.5 mg PO HS [facility] Last Admin: 05/07/19 23:12 Dose: 2.5 mg Pantoprazole Sodium (Protonix -) 20 mg PO DAILY [facility] Last Admin: 05/08/19 10:12 Dose: 20 mg 73 year old woman with past medical history of CKD (baseline Cr ~1.7), CLL, CHF , HTN, HBV, unilateral hydronephrosis who presented to the ED with fevers and noted to have Cr of 3. 1. EBER on CKD secondary to volume depletoin vs. ATN vs AIN 2. CKD stage 3 3. Chronic hydronephrosis 4. Fevers 5. Acute on chronic anemia 6. Hyponatremia Renal function is improved s/p IVF. supplement K, ensure Mg > 2 can d/c IVF trend renal function with oral intake alone Hgb improved s/p PRBC Heme follow up Thank you Tr Duran DO
[2019-05-08 13:09] LABS: HEMATOCRIT 28.9 % (32.4-45.2); HEMOGLOBIN 9.7 GM/dL (10.7-15.3); MCHC 33.6 g/dl (32.0-36.0); MEAN CELL VOLUME 86.5 fl (80-96); MEAN PLT VOLUME 10.1 fl (7.5-11.1); RBC 3.35 M/mm3 (3.60-5.2); RDW 15.2 % (11.6-15.6); WHITE BLOOD COUNT 17.9 K/mm3 (4.0-10.0)
[2019-05-08 13:45] LABS: PLATELET COUNT 30 K/MM3 (134-434)
[2019-05-08 14:26] LABS: ANISOCYTOSIS 1+; PLATELET ESTIMATE DECREASED; TEAR DROP CELLS 1+
[2019-05-08] MEDS: NITROFURANTOIN MACROCRYSTAL 50 MG CAPSULE (FP) PO SCH (18:16)
[2019-05-08] MEDS: OLANZapine 2.5 MG TABLET PO SCH (21:56)
[2019-05-09] MEDS: NITROFURANTOIN MACROCRYSTAL 50 MG CAPSULE (FP) PO SCH ×4 (00:50→18:22)
--- NOTE | 2019-05-09 06:39 | PN ---
Progress Note, Physician Chief Complaint: feeling nauseous WBC 38k PLT 63 after 1 U PLT many blasts afebrile no more nose bleeds no other c/o VSS - Current Medication List Current Medications: Active Medications Acetaminophen (Tylenol -) 650 mg PO Q6H PRN PRN Reason: FEVER Cyclosporine (Sandimmune) 100 mg PO DAILY [facility] Last Admin: 05/08/19 10:13 Dose: 100 mg Lactobacillus Acidophilus (Bacid -) 1 tab PO DAILY [facility] Last Admin: 05/08/19 10:12 Dose: 1 tab Lamivudine (Epivir Oral Solution -) 100 mg PO DAILY [facility] Last Admin: 05/08/19 10:13 Dose: 100 mg Nitrofurantoin Macrocrystals (Macrodantin -) 50 mg PO Q6HPO [facility] Last Admin: 05/09/19 05:38 Dose: 50 mg Olanzapine (Zyprexa -) 2.5 mg PO HS [facility] Last Admin: 05/08/19 21:56 Dose: 2.5 mg Pantoprazole Sodium (Protonix -) 20 mg PO DAILY [facility] Last Admin: 05/08/19 10:12 Dose: 20 mg - Objective Vital Signs: Vital Signs Temperature 98.9 F 05/08/19 22:16 Pulse Rate 82 05/08/19 22:16 Respiratory Rate 18 05/08/19 21:00 Blood Pressure 143/80 05/08/19 22:16 O2 Sat by Pulse Oximetry (%) 98 05/08/19 21:00 Constitutional: Yes: No Distress, Calm Eyes: Yes: Conjunctiva Clear HENT: Yes: Atraumatic Neck: Yes: Supple Cardiovascular: Yes: Regular Rate and Rhythm Respiratory: Yes: CTA Bilaterally Gastrointestinal: Yes: Soft. No: Tenderness Genitourinary: No: Hematuria Musculoskeletal: No: Joint Stiffness, Joint Swelling Extremities: No: Cold, Cool, Cyanosis Edema: No Neurological: Yes: Alert, Oriented ...Motor Strength: WNL Psychiatric: Yes: Alert, Oriented. No: Agitated Labs: CBC, BMP 05/08/19 07:05 05/08/19 08:05 INR, PTT INR 1.18 (0.83-1.09) H 05/03/19 23:20 - ....Imaging Other: Report Reviewed Assessment/Plan Patient is a 73 year old lady with a significant pmh of CLL, CHF, HTN, HBV who presents yesterday with a fever. h/o UTis renal stones, and cellulitis; h/o UTI ESBL, sepsis, also ARF and severe anemia s/p PRBC epistaxis: s/p PLT transfusion, heme f/u; d/w dr Noe ONC will see her today ?chemotx per ONC? IV ATB per ID d/w ID dr Kothari will f/u today DVT pfx ambulation not on sq heparin or AC d.w pt and staff d/w daughter Dayana - prognosis guarded; pt is not DNR DNI
[2019-05-09 07:44] LABS: BASO % 1.1 % (0-2.0); EOS % 0.8 % (0-4.5); HEMATOCRIT 38.5 % (32.4-45.2); LYMPH % 17.9 % (8-40); MCH 29.3 pg (25.7-33.7); MCHC 33.8 g/dl (32.0-36.0); MEAN CELL VOLUME 86.6 fl (80-96); MEAN PLT VOLUME 7.8 fl (7.5-11.1); MONO % 31.9 % (3.8-10.2); NEUT % 48.3 % (42.8-82.8); PLATELET COUNT 63 K/MM3 (134-434); RBC 4.44 M/mm3 (3.60-5.2); RDW 15.3 % (11.6-15.6)
[2019-05-09 07:51] LABS: WHITE BLOOD COUNT 38.2 K/mm3 (4.0-10.0)
[2019-05-09 08:16] LABS: BLOOD UREA NITROGEN 9.4 mg/dL (7-18); CALCIUM 9.5 mg/dL (8.5-10.1); CREATININE 1.2 mg/dL (0.55-1.3); MAGNESIUM 1.8 mg/dL (1.8-2.4); POTASSIUM 3.9 mmol/L (3.5-5.1)
[2019-05-09 09:33] LABS: ANISOCYTOSIS 2+; MACROCYTOSIS 2+; PLATELET ESTIMATE DECREASED
[2019-05-09 11:07] LABS: BASO % 0.4 % (0-2.0); EOS % 1.1 % (0-4.5); HEMATOCRIT 33.6 % (32.4-45.2); HEMOGLOBIN 11.4 GM/dL (10.7-15.3); LYMPH % 18.8 % (8-40); MCHC 33.9 g/dl (32.0-36.0); MEAN CELL VOLUME 85.5 fl (80-96); MEAN PLT VOLUME 6.9 fl (7.5-11.1); MONO % 32.6 % (3.8-10.2); NEUT % 47.1 % (42.8-82.8); PLATELET COUNT 47 K/MM3 (134-434); RBC 3.93 M/mm3 (3.60-5.2); RDW 15.3 % (11.6-15.6); WHITE BLOOD COUNT 26.7 K/mm3 (4.0-10.0)
[2019-05-09] MEDS: PANTOPRAZOLE 20 MG TABLET PO SCH (11:45)
[2019-05-09] MEDS: LACTOBACILLUS ACIDOPHILUS 1 TABLET PO SCH (11:45)
[2019-05-09] MEDS: lamiVUDine 10 MG/1 ML BULK BOTTLE PO SCH (11:46)
[2019-05-09] MEDS: ACETAMINOPHEN 325 MG TABLET (FP) PO PRN ×2 (11:58→20:24)
[2019-05-09 12:03] LABS: ANISOCYTOSIS 0; MACROCYTOSIS 0; PLATELET ESTIMATE DECREASED
--- NOTE | 2019-05-09 12:05 | PN ---
Progress Note (short form) - Note Progress Note: called by nurse pt fever 102 pulseox 88% i called icu dr Saucedo for icu transfer - he will evaluate pt shortly; i called id dr Kothari and heme onc dr Garcia; i called pt's daughter Dayana again - message
[2019-05-09] MEDS: MAGNESIUM CL 64 MG TABLET.SA PO SCH (12:21)
--- NOTE | 2019-05-09 12:53 | CONSULT ---
Consultation: REQUESTING PROVIDER: Dr. Jordan CONSULT REQUEST: We have been asked to medically evaluate this patient for sepsis. HISTORY OF PRESENT ILLNESS: Patient is a 73 y/o with a past medical history of CLL, CHF, HTN, HBV who is admitted for sepsis. Patient has positive urine and blood cultures, treated with fluids and antibiotics. Over patients course she has received 3 units of PRBC for anemia and 1 unit of platelets, though to be 2/2 to her CLL. We were asked to evaluate patient for her sepsis. Patient is A&O x1 REVIEW OF SYSTEMS: CONSTITUTIONAL: fever Absent: chills, diaphoresis, generalized weakness, malaise, loss of appetite, weight change HEENT: Absent: rhinorrhea, nasal congestion, throat pain, throat swelling, difficulty swallowing, mouth swelling, ear pain, eye pain, visual changes CARDIOVASCULAR: Absent: chest pain, syncope, palpitations, irregular heart rate, lightheadedness , peripheral edema RESPIRATORY: Absent: cough, shortness of breath, dyspnea with exertion, orthopnea, wheezing, stridor, hemoptysis GASTROINTESTINAL: Absent: abdominal pain, abdominal distension, nausea, vomiting, diarrhea, constipation, melena, hematochezia GENITOURINARY: Absent: dysuria, frequency, urgency, hesitancy, hematuria, flank pain, genital pain MUSCULOSKELETAL: Absent: myalgia, arthralgia, joint swelling, back pain, neck pain SKIN: Absent: rash, itching, pallor HEMATOLOGIC/IMMUNOLOGIC: Absent: easy bleeding, easy bruising, lymphadenopathy, frequent infections ENDOCRINE: Absent: unexplained weight gain, unexplained weight loss, heat intolerance, cold intolerance NEUROLOGIC: Absent: headache, focal weakness or paresthesias, dizziness, unsteady gait, seizure, mental status changes, bladder or bowel incontinence PSYCHIATRIC: Absent: anxiety, depression, suicidal or homicidal ideation, hallucinations. PHYSICAL EXAMINATION Vital Signs - 24 hr 05/08/19 05/08/19 05/09/19 21:00 22:16 06:00 Temperature 98.9 F 98.2 F Pulse Rate 82 91 H Respiratory 18 20 Rate Blood Pressure 143/80 166/88 O2 Sat by Pulse 98 Oximetry (%) GENERAL: Awake, alert, no acute distress HEAD: Normal with no signs of trauma. EYES: Pupils equal, round and reactive to light, NECK: Normal range of motion, supple without lymphadenopathy, JVD, or masses. LUNGS: Breath sounds equal, clear to auscultation bilaterally. No wheezes, and no crackles. No accessory muscle use. HEART: Regular rate and rhythm, normal S1 and S2 without murmur, rub or gallop. ABDOMEN: Soft, nontender, not distended, normoactive bowel sounds, LOWER EXTREMITIES: 2+ pulses, warm, well-perfused. No calf tenderness. No peripheral edema. PSYCHIATRIC: Cooperative. Good eye contact. Appropriate mood and affect. SKIN: No ulcers noted CBC, BMP 05/09/19 10:50 05/09/19 06:55 Active Medications Acetaminophen (Tylenol -) 650 mg PO Q6H PRN PRN Reason: FEVER Last Admin: 05/09/19 11:58 Dose: 650 mg Cyclosporine (Sandimmune) 100 mg PO DAILY [facility] Last Admin: 05/09/19 11:45 Dose: 100 mg Lactobacillus Acidophilus (Bacid -) 1 tab PO DAILY [facility] Last Admin: 05/09/19 11:45 Dose: 1 tab Lamivudine (Epivir Oral Solution -) 100 mg PO DAILY [facility] Last Admin: 05/09/19 11:46 Dose: 100 mg Magnesium Chloride (Slow-Mag -) 64 mg PO DAILY [facility] Nitrofurantoin Macrocrystals (Macrodantin -) 50 mg PO Q6HPO [facility] Last Admin: 05/09/19 11:48 Dose: 50 mg Olanzapine (Zyprexa -) 2.5 mg PO HS [facility] Pantoprazole Sodium (Protonix -) 20 mg PO DAILY [facility] Last Admin: 05/09/19 11:45 Dose: 20 mg ASSESSMENT/PLAN: Patient is a 73 y/o with a past medical history of CLL, CHF, HTN, HBV who is admitted for sepsis. #Sepsis 2/2 to UTI with bacteremia - new fever, repeat Ucx and Bcx, follow up - Patient currently on Bactrim, with new fever would suggest broadening antibiotic spectrum - currently hemodynamically stable - patient not currently on fluids, discussed with Dr. Duran to begin maintenance fluids - CXR: no new source of infiltrate noted - supplemental oxygen as needed - blood pressure monitoring q1h, please call ICU if hypotensive Dispo: Patient currently hemodynamically stable, critical care monitoring not needed at this time. Please call back with any new concerns. Thank you for this consultative opportunity. Visit type - Emergency Visit Emergency Visit: No - New Patient This patient is new to me today: Yes Date on this admission: 05/09/19 - Critical Care Critical Care patient: No ATTENDING PHYSICIAN STATEMENT I saw and evaluated the patient. I reviewed the resident's note and discussed the case with the resident. I agree with the resident's findings and plan as documented. SUBJECTIVE: OBJECTIVE: ASSESSMENT AND PLAN:
[2019-05-09 13:21] LABS: ARTERIAL BLD GAS O2 SATURATION 88.2 % (95-98); ARTERIAL BLOOD GAS BASE EXCESS 3.4 meq/l (-2-2); ARTERIAL BLOOD GAS PCO2 39.6 mmHg (35-45); ARTERIAL BLOOD GAS PO2 51.9 mmHg (80-100); ARTERIAL BLOOD GAS pH 7.45 (7.35-7.45)
[2019-05-09 13:23] LABS: ALLENS TEST POSITIVE
--- NOTE | 2019-05-09 13:51 | PN ---
Progress Note (short form) - Note Progress Note: Renal follow up for EBER Seen and examined at the bedside awake and alert no acute complaints, has a mild cough was febrile this am Vital Signs Temperature 98.2 F 05/09/19 06:00 Pulse Rate 91 H 05/09/19 06:00 Respiratory Rate 05/09/19 06:00 Blood Pressure 166/88 05/09/19 06:00 O2 Sat by Pulse Oximetry (%) 98 05/08/19 21:00 Intake & Output 05/06/19 05/07/19 05/08/19 05/09/19 23:59 23:59 23:59 23:59 Intake Total 2960 2260 1490 500 Balance 2960 2260 1490 500 Weight 52.844 kg 51.88 kg 51.71 kg 49.986 kg NAD RRR, no M/R CTA soft NT/ND no LE edema CBC, BMP 05/09/19 10:50 05/09/19 06:55 Current Medications Acetaminophen (Tylenol -) 650 mg PO Q6H PRN PRN Reason: FEVER Last Admin: 05/09/19 11:58 Dose: 650 mg Cyclosporine (Sandimmune) 100 mg PO DAILY [facility] Last Admin: 05/09/19 11:45 Dose: 100 mg Lactobacillus Acidophilus (Bacid -) 1 tab PO DAILY [facility] Last Admin: 05/09/19 11:45 Dose: 1 tab Lamivudine (Epivir Oral Solution -) 100 mg PO DAILY [facility] Last Admin: 05/09/19 11:46 Dose: 100 mg Magnesium Chloride (Slow-Mag -) 64 mg PO DAILY [facility] Nitrofurantoin Macrocrystals (Macrodantin -) 50 mg PO Q6HPO [facility] Last Admin: 05/09/19 11:48 Dose: 50 mg Olanzapine (Zyprexa -) 2.5 mg PO HS [facility] Pantoprazole Sodium (Protonix -) 20 mg PO DAILY [facility] Last Admin: 05/09/19 11:45 Dose: 20 mg 73 year old woman with past medical history of CKD (baseline Cr ~1.7), CLL, CHF , HTN, HBV, unilateral hydronephrosis who presented to the ED with fevers and noted to have Cr of 3. 1. EBER on CKD secondary to volume depletoin vs. ATN vs AIN 2. CKD stage 3 3. Chronic hydronephrosis 4. Fevers 5. Acute on chronic anemia 6. Hyponatremia Renal function stable vital signs stable, no hypotension noted can start gentle IVF as pt is febrile, CXR w/o evidence of CHF trend renal function with oral intake alone Hgb improved s/p PRBC Heme follow up Blood, and urine cultures ordered Thank you Tr Duran DO
--- NOTE | 2019-05-09 16:31 | PN ---
Progress Note, Physician History of Present Illness: SUPINE IN BED SPIKED TEMP 102 ELEVTED WBC NOTED NO COMPLAINTS NO NAUSEA DENIES FEVER/ CHILLS NO C/O DYSURIA - Current Medication List Current Medications: Active Medications Acetaminophen (Tylenol -) 650 mg PO Q6H PRN PRN Reason: FEVER Last Admin: 05/09/19 11:58 Dose: 650 mg Cyclosporine (Sandimmune) 100 mg PO DAILY [facility] Last Admin: 05/09/19 11:45 Dose: 100 mg Ertapenem 1 gm/ Sodium (Chloride) 50 mls @ 100 mls/hr IVPB DAILY [facility] Lactobacillus Acidophilus (Bacid -) 1 tab PO DAILY [facility] Last Admin: 05/09/19 11:45 Dose: 1 tab Lamivudine (Epivir Oral Solution -) 100 mg PO DAILY [facility] Last Admin: 05/09/19 11:46 Dose: 100 mg Magnesium Chloride (Slow-Mag -) 64 mg PO DAILY [facility] Nitrofurantoin Macrocrystals (Macrodantin -) 50 mg PO Q6HPO [facility] Last Admin: 05/09/19 11:48 Dose: 50 mg Olanzapine (Zyprexa -) 2.5 mg PO HS [facility] Pantoprazole Sodium (Protonix -) 20 mg PO DAILY [facility] Last Admin: 05/09/19 11:45 Dose: 20 mg - Objective Vital Signs: Vital Signs Temperature 96.5 F L 05/09/19 15:13 Pulse Rate 80 05/09/19 15:13 Respiratory Rate 20 05/09/19 15:13 Blood Pressure 96/53 L 05/09/19 15:13 O2 Sat by Pulse Oximetry (%) 98 05/08/19 21:00 Constitutional: Yes: No Distress Cardiovascular: Yes: Regular Rate and Rhythm, S1, S2 Respiratory: Yes: Diminished Gastrointestinal: Yes: Normal Bowel Sounds, Soft. No: Tenderness Edema: No Labs: CBC, BMP 05/09/19 10:50 05/09/19 06:55 INR, PTT INR 1.18 (0.83-1.09) H 05/03/19 23:20 Assessment/Plan FEVER MARKED LEUKOCYTOSIS ? SEPSIS ? ACUTE LEUKEMIA BC REPEATED RECURRENT UTI HX ESBL AZOTEMIA RESOLVED MDS VANCOMYCIN ALLERGY REPEAT CULTURES EMPIRIC ERTAPENEM/ DAPTO (VANCOMYCIN ALLERGY)
[2019-05-09] MEDS ORDERED: PT OWN MED DRAWER 7, Y5N ONE ×2 (17:56→20:00)
[2019-05-09] MEDS: ERTAPENEM SODIUM 1 GM in SODIUM CHLORIDE 50 ML IVPB SCH (18:21)
--- NOTE | 2019-05-09 20:26 | PN ---
Progress Note (short form) - Note Progress Note: Patient seen and examined Listless, nauseated -no emesis Complains of headache Last Vital Signs Temp Pulse Resp BP Pulse Ox 96.5 F L 80 20 96/53 L 82 L 05/09/19 15:13 05/09/19 15:13 05/09/19 15:13 05/09/19 15:13 05/09/19 09:00 HEENT: FELIBERTO, EOM Intact Cor: RSR, No murmurs, No gallops Lungs: Clear to P&A Abd: Soft, Normal bowel sounds, No organomegaly Ext:No significant edema Skin: No rashes, Integument intact CBC, BMP 05/09/19 10:50 05/09/19 06:55 Current Medications Generic Name Dose Route Start Last Admin Trade Name Freq PRN Reason Stop Dose Admin Acetaminophen 650 mg 05/04/19 07:53 05/09/19 11:58 Tylenol - PO 650 mg Q6H PRN Administration FEVER Cyclosporine 100 mg 05/04/19 10:00 05/09/19 11:45 Sandimmune PO 100 mg DAILY [facility] Administration Ertapenem 1 gm/ Sodium 50 mls @ 100 mls/hr 05/09/19 16:30 05/09/19 18:21 Chloride IVPB 100 mls/hr DAILY [facility] Administration Daptomycin 300 mg/ Sodium 50 mls @ 50 mls/hr 05/09/19 18:00 Chloride IVPB DAILY@1800 [facility] Protocol Lactobacillus Acidophilus 1 tab 05/06/19 10:00 05/09/19 11:45 Bacid - PO 1 tab DAILY [facility] Administration Lamivudine 100 mg 05/04/19 10:00 05/09/19 11:46 Epivir Oral Solution - PO 100 mg DAILY [facility] Administration Magnesium Chloride 64 mg 05/09/19 11:30 05/09/19 12:21 Slow-Mag - PO 64 mg DAILY [facility] Administration Nitrofurantoin Macrocrystals 50 mg 05/08/19 18:00 05/09/19 18:22 Macrodantin - PO 50 mg Q6HPO [facility] Administration Olanzapine 2.5 mg 05/09/19 22:00 Zyprexa - PO HS [facility] Pantoprazole Sodium 20 mg 05/04/19 10:00 05/09/19 11:45 Protonix - PO 20 mg DAILY [facility] Administration Impression: Fever AML Hx of hepatitis B Fevers Hx of CLL + cultures --urine and blood Currently on empiric antibiotics per ID To monitor for now
[2019-05-09] MEDS: DAPTOMYCIN 300 MG in SODIUM CHLORIDE 50 ML IVPB SCH (21:13)
[2019-05-09] MEDS: OLANZapine 2.5 MG TABLET PO SCH (21:15)
[2019-05-10] MEDS: SODIUM CHLORIDE 1,000 ML IV SCH (00:04)
[2019-05-10] MEDS: NITROFURANTOIN MACROCRYSTAL 50 MG CAPSULE (FP) PO SCH ×4 (00:05→18:05)
[2019-05-10 02:00] LABS: EPI CELLS 9.8 /HPF (0-5/HPF); HYALINE CASTS 32 /lpf (0-8); URINE APPEARANCE TURBID; URINE BACTERIA 37.9 /hpf (NEGATIVE); URINE BILIRUBIN NEGATIVE (NEGATIVE); URINE COLOR YELLOW; URINE GLUCOSE (UA) NEGATIVE (NEGATIVE); URINE KETONE NEGATIVE (NEGATIVE); URINE LEUK ESTERASE 1+ (NEGATIVE); URINE NITRITE NEGATIVE (NEGATIVE); URINE PROTEIN 2+ (NEGATIVE); URINE RBC 6 /hpf (0-4); URINE UROBILINOGEN 0.2 mg/dL (0.2-1.0); URINE WBC 8 /hpf (0-5)
[2019-05-10] MEDS ORDERED: PT OWN MED DRAWER 7, Y5N ONE ×4 (05:44→21:45)
[2019-05-10 07:37] LABS: EOS % 0.8 % (0-4.5); HEMATOCRIT 31.9 % (32.4-45.2); HEMOGLOBIN 10.8 GM/dL (10.7-15.3); LYMPH % 20.5 % (8-40); MCH 29.2 pg (25.7-33.7); MCHC 33.8 g/dl (32.0-36.0); MEAN CELL VOLUME 86.3 fl (80-96); MEAN PLT VOLUME 7.4 fl (7.5-11.1); MONO % 40.1 % (3.8-10.2); NEUT % 38.6 % (42.8-82.8); PLATELET COUNT 39 K/MM3 (134-434); RDW 15.3 % (11.6-15.6); WHITE BLOOD COUNT 29.6 K/mm3 (4.0-10.0)
[2019-05-10 08:06] LABS: ALBUMIN 2.9 g/dl (3.4-5.0); BILIRUBIN,TOTAL 0.8 mg/dL (0.2-1); CALCIUM 9.3 mg/dL (8.5-10.1); CREATININE 1.3 mg/dL (0.55-1.3); MAGNESIUM 1.7 mg/dL (1.8-2.4); PHOSPHOROUS 4.3 mg/dL (2.5-4.9); POTASSIUM 3.8 mmol/L (3.5-5.1)
[2019-05-10] MEDS: LACTOBACILLUS ACIDOPHILUS 1 TABLET PO SCH (09:39)
[2019-05-10] MEDS: PANTOPRAZOLE 20 MG TABLET PO SCH (09:39)
[2019-05-10] MEDS: ERTAPENEM SODIUM 1 GM in SODIUM CHLORIDE 50 ML IVPB SCH (09:40)
[2019-05-10 09:48] LABS: ANISOCYTOSIS 0; MACROCYTOSIS 0; PLATELET ESTIMATE DECREASED
[2019-05-10] MEDS: MAGNESIUM CL 64 MG TABLET.SA PO SCH (10:07)
[2019-05-10] MEDS: lamiVUDine 10 MG/1 ML BULK BOTTLE PO SCH (10:07)
--- NOTE | 2019-05-10 10:16 | PN ---
Progress Note, Physician Chief Complaint: s/p sepsis episode high WBC (better) on IV ATB per ID; VSS afebrile NAD cultures pending - Current Medication List Current Medications: Active Medications Acetaminophen (Tylenol -) 650 mg PO Q6H PRN PRN Reason: FEVER Last Admin: 05/09/19 20:24 Dose: 650 mg Ertapenem 1 gm/ Sodium (Chloride) 50 mls @ 100 mls/hr IVPB DAILY [facility] Last Admin: 05/10/19 09:40 Dose: 100 mls/hr Daptomycin 300 mg/ Sodium (Chloride) 50 mls @ 50 mls/hr IVPB DAILY@1800 [facility]; Protocol Last Admin: 05/09/19 21:13 Dose: 50 mls/hr Sodium Chloride (Normal Saline -) 1,000 mls @ 75 mls/hr IV ASDIR [facility] Last Admin: 05/10/19 00:04 Dose: 75 mls/hr Lactobacillus Acidophilus (Bacid -) 1 tab PO DAILY [facility] Last Admin: 05/10/19 09:39 Dose: 1 tab Lamivudine (Epivir Oral Solution -) 100 mg PO DAILY [facility] Last Admin: 05/10/19 10:07 Dose: 100 mg Magnesium Chloride (Slow-Mag -) 64 mg PO DAILY [facility] Last Admin: 05/10/19 10:07 Dose: 64 mg Nitrofurantoin Macrocrystals (Macrodantin -) 50 mg PO Q6HPO [facility] Last Admin: 05/10/19 05:55 Dose: 50 mg Olanzapine (Zyprexa -) 2.5 mg PO HS [facility] Last Admin: 05/09/19 21:15 Dose: 2.5 mg Pantoprazole Sodium (Protonix -) 20 mg PO DAILY [facility] Last Admin: 05/10/19 09:39 Dose: 20 mg - Objective Vital Signs: Vital Signs Temperature 97.9 F 05/10/19 06:05 Pulse Rate 88 05/10/19 06:05 Respiratory Rate 18 05/10/19 06:05 Blood Pressure 144/73 05/10/19 06:05 O2 Sat by Pulse Oximetry (%) 82 L 05/09/19 09:00 Constitutional: Yes: No Distress, Calm Eyes: Yes: Conjunctiva Clear HENT: Yes: Atraumatic Neck: Yes: Supple Cardiovascular: Yes: Regular Rate and Rhythm Respiratory: Yes: CTA Bilaterally Gastrointestinal: Yes: Soft. No: Tenderness Genitourinary: No: Hematuria Musculoskeletal: No: Joint Stiffness, Joint Swelling Extremities: No: Cold, Cool Edema: No Integumentary: No: Rash, Venous Stasis Changes Neurological: Yes: Alert ...Motor Strength: WNL Psychiatric: Yes: Alert. No: Agitated, Suicidal Ideation Labs: CBC, BMP 05/10/19 06:35 05/10/19 06:35 INR, PTT INR 1.18 (0.83-1.09) H 05/03/19 23:20 - ....Imaging Other: Report Reviewed Assessment/Plan Patient is a 73 year old lady with a significant pmh of CLL, CHF, HTN, HBV who presents yesterday with a fever. h/o UTis renal stones, and cellulitis; h/o UTI ESBL, sepsis, also ARF and severe anemia s/p PRBC epistaxis: s/p PLT transfusion, heme ONC f/u; pending chemotx per ONC after IV ATB; IV ATB per ID, f/u cultures; DVT pfx ambulation not on sq heparin or AC d.w pt and staff d/w daughter Dayana - prognosis guarded; pt is not DNR DNI
--- NOTE | 2019-05-10 12:59 | PN ---
Progress Note, Physician History of Present Illness: SUPINE IN BED TEMPS DOWN WBC 29K 13% BLASTS CULTURES PENDING NO COMPLAINTS NO NAUSEA DENIES FEVER/ CHILLS NO C/O DYSURIA - Current Medication List Current Medications: Active Medications Acetaminophen (Tylenol -) 650 mg PO Q6H PRN PRN Reason: FEVER Last Admin: 05/09/19 20:24 Dose: 650 mg Ertapenem 1 gm/ Sodium (Chloride) 50 mls @ 100 mls/hr IVPB DAILY [facility] Last Admin: 05/10/19 09:40 Dose: 100 mls/hr Daptomycin 300 mg/ Sodium (Chloride) 50 mls @ 50 mls/hr IVPB DAILY@1800 [facility]; Protocol Last Admin: 05/09/19 21:13 Dose: 50 mls/hr Sodium Chloride (Normal Saline -) 1,000 mls @ 75 mls/hr IV ASDIR [facility] Last Admin: 05/10/19 00:04 Dose: 75 mls/hr Lactobacillus Acidophilus (Bacid -) 1 tab PO DAILY [facility] Last Admin: 05/10/19 09:39 Dose: 1 tab Lamivudine (Epivir Oral Solution -) 100 mg PO DAILY [facility] Last Admin: 05/10/19 10:07 Dose: 100 mg Magnesium Chloride (Slow-Mag -) 64 mg PO DAILY [facility] Last Admin: 05/10/19 10:07 Dose: 64 mg Nitrofurantoin Macrocrystals (Macrodantin -) 50 mg PO Q6HPO [facility] Last Admin: 05/10/19 12:10 Dose: 50 mg Olanzapine (Zyprexa -) 2.5 mg PO HS [facility] Last Admin: 05/09/19 21:15 Dose: 2.5 mg Pantoprazole Sodium (Protonix -) 20 mg PO DAILY [facility] Last Admin: 05/10/19 09:39 Dose: 20 mg - Objective Vital Signs: Vital Signs Temperature 97.9 F 05/10/19 10:00 Pulse Rate 79 05/10/19 10:00 Respiratory Rate 18 05/10/19 10:00 Blood Pressure 145/87 05/10/19 10:00 O2 Sat by Pulse Oximetry (%) 82 L 05/09/19 09:00 Constitutional: Yes: No Distress Eyes: Yes: Conjunctiva Clear Cardiovascular: Yes: Regular Rate and Rhythm, S1, S2 Respiratory: Yes: CTA Bilaterally Gastrointestinal: Yes: Normal Bowel Sounds, Soft. No: Tenderness Labs: CBC, BMP 05/10/19 06:35 05/10/19 06:35 INR, PTT INR 1.18 (0.83-1.09) H 05/03/19 23:20 Assessment/Plan S/P FEVER MARKED LEUKOCYTOSIS ? SEPSIS ? ACUTE LEUKEMIA BC PENDING RECURRENT UTI HX ESBL AZOTEMIA RESOLVED MDS VANCOMYCIN ALLERGY REPEAT CULTURES PENDING EMPIRIC ERTAPENEM/ DAPTO (VANCOMYCIN ALLERGY)
--- NOTE | 2019-05-10 15:02 | PN ---
Progress Note (short form) - Note Progress Note: Renal follow up for EBER Seen and examined at the bedside awake and alert no acute complaints denies any sob, cp abd pain, fever, chills, N/V/D, LITTLE or confusion Vital Signs Temperature 97.9 F 05/10/19 10:00 Pulse Rate 79 05/10/19 10:00 Respiratory Rate 18 05/10/19 10:00 Blood Pressure 145/87 05/10/19 10:00 O2 Sat by Pulse Oximetry (%) 82 L 05/09/19 09:00 Intake & Output 05/07/19 05/08/19 05/09/19 05/10/19 23:59 23:59 23:59 23:59 Intake Total 2260 1490 800 375 Output Total 100 Balance 2260 1490 800 275 Weight 51.88 kg 51.71 kg 49.986 kg 50.009 kg NAD RRR, no M/R CTA soft NT/ND no LE edema CBC, BMP 05/10/19 06:35 05/10/19 06:35 Current Medications Acetaminophen (Tylenol -) 650 mg PO Q6H PRN PRN Reason: FEVER Last Admin: 05/09/19 20:24 Dose: 650 mg Ertapenem 1 gm/ Sodium (Chloride) 50 mls @ 100 mls/hr IVPB DAILY [facility] Last Admin: 05/10/19 09:40 Dose: 100 mls/hr Daptomycin 300 mg/ Sodium (Chloride) 50 mls @ 50 mls/hr IVPB DAILY@1800 [facility]; Protocol Last Admin: 05/09/19 21:13 Dose: 50 mls/hr Sodium Chloride (Normal Saline -) 1,000 mls @ 75 mls/hr IV ASDIR [facility] Last Admin: 05/10/19 00:04 Dose: 75 mls/hr Lactobacillus Acidophilus (Bacid -) 1 tab PO DAILY [facility] Last Admin: 05/10/19 09:39 Dose: 1 tab Lamivudine (Epivir Oral Solution -) 100 mg PO DAILY [facility] Last Admin: 05/10/19 10:07 Dose: 100 mg Magnesium Chloride (Slow-Mag -) 64 mg PO DAILY [facility] Last Admin: 05/10/19 10:07 Dose: 64 mg Nitrofurantoin Macrocrystals (Macrodantin -) 50 mg PO Q6HPO [facility] Last Admin: 05/10/19 12:10 Dose: 50 mg Olanzapine (Zyprexa -) 2.5 mg PO HS [facility] Last Admin: 05/09/19 21:15 Dose: 2.5 mg Pantoprazole Sodium (Protonix -) 20 mg PO DAILY [facility] Last Admin: 05/10/19 09:39 Dose: 20 mg 73 year old woman with past medical history of CKD (baseline Cr ~1.7), CLL, CHF , HTN, HBV, unilateral hydronephrosis who presented to the ED with fevers and noted to have Cr of 3. 1. EBER on CKD secondary to volume depletoin vs. ATN vs AIN 2. CKD stage 3 3. Chronic hydronephrosis 4. Fevers 5. Acute on chronic anemia 6. Hyponatremia Renal function stable continue IVF as needed for mangement of suspected sepsis Hgb improved s/p PRBC Heme follow up on empiric antibiotics as per ID f/u cultures Thank you Tr Duran DO
[2019-05-10] MEDS: DAPTOMYCIN 300 MG in SODIUM CHLORIDE 50 ML IVPB SCH (18:05)
--- NOTE | 2019-05-10 20:58 | PN ---
Progress Note (short form) - Note Progress Note: Patient seen and examined More awake Temp down No significant nausea Last Vital Signs Temp Pulse Resp BP Pulse Ox 98.2 F 81 18 136/67 95 05/10/19 19:12 05/10/19 19:12 05/10/19 19:12 05/10/19 19:12 05/10/19 09:00 HEENT: FELIBERTO, EOM Intact Cor: RSR, No murmurs, No gallops Lungs: rhonchi bilaterally bases Abd: Soft, Normal bowel sounds, No organomegaly Ext:No significant edema Skin: No rashes, Integument intact CBC, BMP 05/10/19 06:35 05/10/19 06:35 Current Medications Generic Name Dose Route Start Last Admin Trade Name Freq PRN Reason Stop Dose Admin Acetaminophen 650 mg 05/04/19 07:53 05/09/19 20:24 Tylenol - PO 650 mg Q6H PRN Administration FEVER Ertapenem 1 gm/ Sodium 50 mls @ 100 mls/hr 05/09/19 16:30 05/10/19 09:40 Chloride IVPB 100 mls/hr DAILY [facility] Administration Daptomycin 300 mg/ Sodium 50 mls @ 50 mls/hr 05/09/19 18:00 05/10/19 18:05 Chloride IVPB 50 mls/hr DAILY@1800 [facility] Administration Protocol Sodium Chloride 1,000 mls @ 75 mls/hr 05/09/19 22:45 05/10/19 00:04 Normal Saline - IV 75 mls/hr ASDIR [facility] Administration Lactobacillus Acidophilus 1 tab 05/06/19 10:00 05/10/19 09:39 Bacid - PO 1 tab DAILY [facility] Administration Lamivudine 100 mg 05/04/19 10:00 05/10/19 10:07 Epivir Oral Solution - PO 100 mg DAILY [facility] Administration Magnesium Chloride 64 mg 05/09/19 11:30 05/10/19 10:07 Slow-Mag - PO 64 mg DAILY [facility] Administration Nitrofurantoin Macrocrystals 50 mg 05/08/19 18:00 05/10/19 18:05 Macrodantin - PO 50 mg Q6HPO [facility] Administration Olanzapine 2.5 mg 05/09/19 22:00 05/09/19 21:15 Zyprexa - PO 2.5 mg HS [facility] Administration Pantoprazole Sodium 20 mg 05/04/19 10:00 05/10/19 09:39 Protonix - PO 20 mg DAILY [facility] Administration Impression: AML Fevers Confusion H/O CLL H/O hepatitis B core AB Anemia Thrombocytopenia Continue antibiotics per ID Monitor labs
[2019-05-10] MEDS: OLANZapine 2.5 MG TABLET PO SCH (22:43)
[2019-05-11] MEDS: SODIUM CHLORIDE 1,000 ML IV SCH (00:49)
[2019-05-11] MEDS: NITROFURANTOIN MACROCRYSTAL 50 MG CAPSULE (FP) PO SCH ×5 (01:06→23:52)
--- NOTE | 2019-05-11 06:54 | PN ---
Progress Note, Physician Chief Complaint: awake alert VSS afebrile NAD' daughter Anastasiia at bedside - Current Medication List Current Medications: Active Medications Acetaminophen (Tylenol -) 650 mg PO Q6H PRN PRN Reason: FEVER Last Admin: 05/09/19 20:24 Dose: 650 mg Ertapenem 1 gm/ Sodium (Chloride) 50 mls @ 100 mls/hr IVPB DAILY [facility] Last Admin: 05/10/19 09:40 Dose: 100 mls/hr Daptomycin 300 mg/ Sodium (Chloride) 50 mls @ 50 mls/hr IVPB DAILY@1800 [facility]; Protocol Last Admin: 05/10/19 18:05 Dose: 50 mls/hr Sodium Chloride (Normal Saline -) 1,000 mls @ 75 mls/hr IV ASDIR [facility] Last Admin: 05/11/19 00:49 Dose: 75 mls/hr Lactobacillus Acidophilus (Bacid -) 1 tab PO DAILY [facility] Last Admin: 05/10/19 09:39 Dose: 1 tab Lamivudine (Epivir Oral Solution -) 100 mg PO DAILY [facility] Last Admin: 05/10/19 10:07 Dose: 100 mg Magnesium Chloride (Slow-Mag -) 64 mg PO DAILY [facility] Last Admin: 05/10/19 10:07 Dose: 64 mg Nitrofurantoin Macrocrystals (Macrodantin -) 50 mg PO Q6HPO [facility] Last Admin: 05/11/19 06:12 Dose: 50 mg Olanzapine (Zyprexa -) 2.5 mg PO HS [facility] Last Admin: 05/10/19 22:43 Dose: 2.5 mg Pantoprazole Sodium (Protonix -) 20 mg PO DAILY [facility] Last Admin: 05/10/19 09:39 Dose: 20 mg - Objective Vital Signs: Vital Signs Temperature 98.1 F 05/11/19 06:00 Pulse Rate 99 H 05/11/19 06:00 Respiratory Rate 18 05/11/19 06:00 Blood Pressure 130/93 05/11/19 06:00 O2 Sat by Pulse Oximetry (%) 94 L 05/10/19 21:00 Constitutional: Yes: No Distress, Calm Eyes: Yes: Conjunctiva Clear HENT: Yes: Atraumatic Neck: Yes: Supple Cardiovascular: Yes: Regular Rate and Rhythm Respiratory: Yes: CTA Bilaterally Gastrointestinal: Yes: Soft. No: Tenderness Genitourinary: No: Hematuria Musculoskeletal: No: Joint Stiffness, Joint Swelling Extremities: No: Cold, Cool, Cyanosis Edema: No Integumentary: No: Rash, Venous Stasis Changes Neurological: Yes: Alert ...Motor Strength: WNL Psychiatric: Yes: Alert Labs: CBC, BMP 05/10/19 06:35 05/10/19 06:35 INR, PTT INR 1.18 (0.83-1.09) H 05/03/19 23:20 - ....Imaging Other: Report Reviewed Assessment/Plan Patient is a 73 year old lady with a significant pmh of CLL, CHF, HTN, HBV who presents yesterday with a fever. h/o UTis renal stones, and cellulitis; h/o UTI ESBL, sepsis, also ARF and severe anemia s/p PRBC epistaxis stopped safter PLT transfusion, heme ONC f/u; Transfuse Monodonor PLT - low count again today 28K pending chemotx per ONC after IV ATB; d/w ONC dr Garcia IV ATB per ID, f/u cultures; DVT pfx ambulation not on sq heparin or AC; falls PFX d.w pt and staff d/w daughter Anastasiia - prognosis guarded;
[2019-05-11 08:37] LABS: BLOOD UREA NITROGEN 13.2 mg/dL (7-18); CREATININE 1.1 mg/dL (0.55-1.3); POTASSIUM 3.6 mmol/L (3.5-5.1)
[2019-05-11 08:49] LABS: BASO % 1.2 % (0-2.0); EOS % 1.1 % (0-4.5); HEMOGLOBIN 10.2 GM/dL (10.7-15.3); LYMPH % 23.2 % (8-40); MCH 29.1 pg (25.7-33.7); MCHC 33.9 g/dl (32.0-36.0); MEAN CELL VOLUME 85.9 fl (80-96); NEUT % 41.5 % (42.8-82.8); RDW 15.7 % (11.6-15.6); WHITE BLOOD COUNT 25.8 K/mm3 (4.0-10.0)
[2019-05-11 08:50] LABS: PLATELET COUNT 28 K/MM3 (134-434)
[2019-05-11] MEDS: PANTOPRAZOLE 20 MG TABLET PO SCH (09:34)
[2019-05-11] MEDS: ERTAPENEM SODIUM 1 GM in SODIUM CHLORIDE 50 ML IVPB SCH (09:34)
[2019-05-11] MEDS: MAGNESIUM CL 64 MG TABLET.SA PO SCH (09:35)
[2019-05-11] MEDS: lamiVUDine 10 MG/1 ML BULK BOTTLE PO SCH (09:35)
[2019-05-11] MEDS: LACTOBACILLUS ACIDOPHILUS 1 TABLET PO SCH (09:35)
[2019-05-11 12:49] LABS: ANISOCYTOSIS 1+; MACROCYTOSIS 0; PLATELET ESTIMATE DECREASED; TEAR DROP CELLS 1+
[2019-05-11] MEDS ORDERED: PT OWN MED DRAWER 7, Y5N ONE (17:00)
[2019-05-11] MEDS ORDERED: FUROSEMIDE 40 MG/4 ML INJECTABLE VIAL IVPUSH ONE (17:00)
[2019-05-11] MEDS: ALPRAZolam 0.25 MG TABLET PO PRN (17:29)
[2019-05-11] MEDS: DAPTOMYCIN 300 MG in SODIUM CHLORIDE 50 ML IVPB SCH (17:29)
--- NOTE | 2019-05-11 19:10 | PN ---
Progress Note (short form) - Note Progress Note: PAtient seen and examined Resting Last Vital Signs Temp Pulse Resp BP Pulse Ox 98.0 F 78 20 114/61 95 05/11/19 14:28 05/11/19 14:28 05/11/19 14:28 05/11/19 14:28 05/11/19 09:00 Cor: RSR, No murmurs, No gallops Lungs: Clear to P&A Abd: Soft, Normal bowel sounds, No organomegaly Ext:1+ edema Abnormal Lab Results 05/11/19 06:25 WBC 25.8 H RBC 3.50 L Hgb 10.2 L Hct 30.0 L RDW 15.7 H Plt Count 28 L* D MPV 7.0 L Absolute Neuts (auto) 10.7 H Neutrophils % 41.5 L Neutrophils % (Manual) 24.0 L Lymphocytes % (Manual) 5.0 L D Monocytes % 33.0 H Monocytes % (Manual) 26 H Myelocytes % (Man) 18 H D Metamyelocytes 9 H D Active Medications Acetaminophen (Tylenol -) 650 mg PO Q6H PRN PRN Reason: FEVER Last Admin: 05/09/19 20:24 Dose: 650 mg Alprazolam (Xanax -) 0.25 mg PO BID PRN PRN Reason: ANXIETY Last Admin: 05/11/19 17:29 Dose: 0.25 mg Ertapenem 1 gm/ Sodium (Chloride) 50 mls @ 100 mls/hr IVPB DAILY [facility] Last Admin: 05/11/19 09:34 Dose: 100 mls/hr Daptomycin 300 mg/ Sodium (Chloride) 50 mls @ 50 mls/hr IVPB DAILY@1800 [facility]; Protocol Last Admin: 05/11/19 17:29 Dose: 50 mls/hr Lactobacillus Acidophilus (Bacid -) 1 tab PO DAILY [facility] Last Admin: 05/11/19 09:35 Dose: 1 tab Lamivudine (Epivir Oral Solution -) 100 mg PO DAILY [facility] Last Admin: 05/11/19 09:35 Dose: 100 mg Magnesium Chloride (Slow-Mag -) 64 mg PO DAILY [facility] Last Admin: 05/11/19 09:35 Dose: 64 mg Nitrofurantoin Macrocrystals (Macrodantin -) 50 mg PO Q6HPO [facility] Last Admin: 02/13/20 17:29 Dose: 50 mg Olanzapine (Zyprexa -) 2.5 mg PO HS [facility] Last Admin: 05/10/19 22:43 Dose: 2.5 mg Pantoprazole Sodium (Protonix -) 20 mg PO DAILY [facility] Last Admin: 05/11/19 09:34 Dose: 20 mg A/P 73 y/o patient with AML/ CLL admitted with fver/ + blood cx. On daptomycin/ ertapenem d/c zyprexa added seroquel did not add escitalopram due to QTc prolongation with seroquel will consult dr. camejo discussed with DR. Jordan possible decitabine this admission continue supportive care discussed with daughter
[2019-05-11] MEDS: QUEtiapine FUMARATE 25 MG TABLET PO SCH (21:29)
[2019-05-12] MEDS: ALPRAZolam 0.25 MG TABLET PO PRN (05:36)
[2019-05-12] MEDS: NITROFURANTOIN MACROCRYSTAL 50 MG CAPSULE (FP) PO SCH ×4 (05:36→23:25)
--- NOTE | 2019-05-12 08:43 | PN ---
Progress Note, Physician Chief Complaint: in bed NAD now new c/o VSS had some anxiety and agitation - xanax prn; psych consults called was off seroquel for 2 days b/o sepsis but now restarted - Current Medication List Current Medications: Active Medications Acetaminophen (Tylenol -) 650 mg PO Q6H PRN PRN Reason: FEVER Last Admin: 05/09/19 20:24 Dose: 650 mg Allopurinol (Zyloprim -) 300 mg PO DAILY [facility] Alprazolam (Xanax -) 0.25 mg PO BID PRN PRN Reason: ANXIETY Last Admin: 05/12/19 05:36 Dose: 0.25 mg Ertapenem 1 gm/ Sodium (Chloride) 50 mls @ 100 mls/hr IVPB DAILY [facility] Last Admin: 05/11/19 09:34 Dose: 100 mls/hr Daptomycin 300 mg/ Sodium (Chloride) 50 mls @ 50 mls/hr IVPB DAILY@1800 [facility]; Protocol Last Admin: 05/11/19 17:29 Dose: 50 mls/hr Lactobacillus Acidophilus (Bacid -) 1 tab PO DAILY [facility] Last Admin: 05/11/19 09:35 Dose: 1 tab Lamivudine (Epivir Oral Solution -) 100 mg PO DAILY [facility] Last Admin: 05/11/19 09:35 Dose: 100 mg Magnesium Chloride (Slow-Mag -) 64 mg PO DAILY [facility] Last Admin: 05/11/19 09:35 Dose: 64 mg Nitrofurantoin Macrocrystals (Macrodantin -) 50 mg PO Q6HPO [facility] Last Admin: 05/12/19 05:36 Dose: 50 mg Pantoprazole Sodium (Protonix -) 20 mg PO DAILY [facility] Last Admin: 05/11/19 09:34 Dose: 20 mg Quetiapine Fumarate (Seroquel -) 12.5 mg PO BID [facility] Last Admin: 05/11/19 21:29 Dose: 12.5 mg Valacyclovir HCl (Valtrex -) 500 mg PO DAILY [facility] - Objective Vital Signs: Vital Signs Temperature 98.3 F 05/12/19 06:00 Pulse Rate 93 H 05/12/19 06:00 Respiratory Rate 20 05/12/19 06:00 Blood Pressure 136/69 05/12/19 06:00 O2 Sat by Pulse Oximetry (%) 96 05/11/19 21:00 Constitutional: Yes: No Distress Eyes: Yes: Conjunctiva Clear HENT: Yes: Atraumatic Neck: Yes: Supple Cardiovascular: Yes: Regular Rate and Rhythm Respiratory: Yes: CTA Bilaterally Gastrointestinal: Yes: Soft. No: Tenderness Genitourinary: No: Hematuria Musculoskeletal: No: Joint Stiffness, Joint Swelling Extremities: No: Cold, Cool Edema: No Integumentary: Yes: Bruising. No: Rash, Venous Stasis Changes Neurological: Yes: Alert ...Motor Strength: WNL Psychiatric: Yes: Alert. No: Agitated, Suicidal Ideation Labs: CBC, BMP 05/11/19 06:25 05/11/19 06:25 INR, PTT INR 1.18 (0.83-1.09) H 05/03/19 23:20 - ....Imaging Other: Report Reviewed Assessment/Plan Patient is a 73 year old lady with a significant pmh of CLL, CHF, HTN, HBV who presents yesterday with a fever. h/o UTis renal stones, and cellulitis; h/o UTI ESBL, sepsis, ARF/CRF, CLL and acute leukemia severe anemia s/p PRBC sp PLT heme ONC f/u; Transfuse Monodonor PLT and PRBCs as needed; f/u labs; d/w heme onc consider chemotherapy next week if stable sepsis on IV ATB per ID, f/u cultures; DVT pfx ambulation not on sq heparin or AC; falls PFX d.w pt and staff d/w daughter Dayana - prognosis guarded;
--- NOTE | 2019-05-12 10:34 | CON.PSY ---
Psychiatry Consult Chief Complaint: 73 char old female with hsitory of chronic medical conditions and Psych illness seen. aptient had been here many times.. Symptoms: reports: Aggressivity, Impulsivity - Previous Psychiatric Treatment Outpatient: None Inpatient: None - Previous Substance Abuse Treatment Outpatient: None Inpatient: None - Reason for Previous Treatment Reason for Previous Treatment: Psychotic Episode - Current Medications Current Medications: Active Medications Acetaminophen (Tylenol -) 650 mg PO Q6H PRN PRN Reason: FEVER Last Admin: 05/09/19 20:24 Dose: 650 mg Allopurinol (Zyloprim -) 300 mg PO DAILY [facility] Ertapenem 1 gm/ Sodium (Chloride) 50 mls @ 100 mls/hr IVPB DAILY [facility] Last Admin: 05/11/19 09:34 Dose: 100 mls/hr Daptomycin 300 mg/ Sodium (Chloride) 50 mls @ 50 mls/hr IVPB DAILY@1800 [facility]; Protocol Last Admin: 05/11/19 17:29 Dose: 50 mls/hr Lactobacillus Acidophilus (Bacid -) 1 tab PO DAILY [facility] Last Admin: 05/11/19 09:35 Dose: 1 tab Lamivudine (Epivir Oral Solution -) 100 mg PO DAILY [facility] Last Admin: 05/11/19 09:35 Dose: 100 mg Magnesium Chloride (Slow-Mag -) 64 mg PO DAILY [facility] Last Admin: 05/11/19 09:35 Dose: 64 mg Nitrofurantoin Macrocrystals (Macrodantin -) 50 mg PO Q6HPO [facility] Last Admin: 05/12/19 05:36 Dose: 50 mg Pantoprazole Sodium (Protonix -) 20 mg PO DAILY [facility] Last Admin: 05/11/19 09:34 Dose: 20 mg Quetiapine Fumarate (Seroquel -) 12.5 mg PO BID [facility] Last Admin: 05/11/19 21:29 Dose: 12.5 mg Valacyclovir HCl (Valtrex -) 500 mg PO DAILY [facility] - Allergies Allergies: Allergies Allergy/AdvReac Type Severity Reaction Status Date / Time vancomycin AdvReac Verified 05/03/19 22:50 - Current Living Status Usual Living Arrangement: Alone - Current Mental Status Evaluation Appearance: Disheveled Attitude: Guarded - Affect Affect: Labile Appropriateness: Not Appropriate - Mood Mood: Irritable - Speech/Language Expressive: Delayed - Psychomotor Activity Psychomotor Activity: Hyperactive - Thought Process Thought Process: Circumstantial - Thought Content Hallucinations: Absent Delusions: Absent - Self Perception Self Perception: No Impairment - Cognition Attention: Alert Orientation: Time Memory, Immediate Recall: Intact Memory, Short Term: 2/3 Memory, Remote: Impaired - Concentration Serial Sevens Intact: No Simple Calculations Intact: No - Abstraction Proverb Interpretation: Impaired Judgement: Minimally Impaired - Insight Insight: Impaired - Impulse Control Impulse Control: Minimally Impaired - Suicidal Ideation Suicidal Ideation: No - Homicidal Ideation Homicidal Ideation: No Assessment/Plan 1) Continue with Seroquel 12.5mg po bid.
[2019-05-12] MEDS: QUEtiapine FUMARATE 25 MG TABLET PO SCH ×2 (10:59→21:27)
[2019-05-12] MEDS: ALLOPURINOL 300 MG TABLET (FP) PO SCH (11:00)
[2019-05-12] MEDS: LACTOBACILLUS ACIDOPHILUS 1 TABLET PO SCH (11:00)
[2019-05-12] MEDS: PANTOPRAZOLE 20 MG TABLET PO SCH (11:00)
[2019-05-12] MEDS: ERTAPENEM SODIUM 1 GM in SODIUM CHLORIDE 50 ML IVPB SCH (11:00)
[2019-05-12] MEDS: MAGNESIUM CL 64 MG TABLET.SA PO SCH (11:00)
[2019-05-12] MEDS: valACYclovir HCL 500 MG TABLET (FP) PO SCH (11:01)
[2019-05-12] MEDS: lamiVUDine 10 MG/1 ML BULK BOTTLE PO SCH (11:01)
[2019-05-12] MEDS: ACETAMINOPHEN 325 MG TABLET (FP) PO PRN (11:39)
[2019-05-12 13:53] LABS: BASO % 0.8 % (0-2.0); EOS % 1.6 % (0-4.5); HEMATOCRIT 28.7 % (32.4-45.2); HEMOGLOBIN 9.7 GM/dL (10.7-15.3); LYMPH % 16.9 % (8-40); MCH 29.5 pg (25.7-33.7); MCHC 33.7 g/dl (32.0-36.0); MEAN CELL VOLUME 87.6 fl (80-96); MEAN PLT VOLUME 7.6 fl (7.5-11.1); MONO % 33.8 % (3.8-10.2); NEUT % 46.9 % (42.8-82.8); RBC 3.28 M/mm3 (3.60-5.2); RDW 15.6 % (11.6-15.6); WHITE BLOOD COUNT 21.8 K/mm3 (4.0-10.0)
[2019-05-12 13:56] LABS: PLATELET COUNT 58 K/MM3 (134-434)
--- NOTE | 2019-05-12 14:21 | PN ---
Progress Note (short form) - Note Progress Note: Patient currently asleep and does not respond to verbal stimul Has been given xanax, seroquel aqnd has fever Spiked temp to 102 Last Vital Signs Temp Pulse Resp BP Pulse Ox 98.0 F 94 H 18 104/50 L 96 05/12/19 13:44 05/12/19 13:44 05/12/19 13:44 05/12/19 13:44 05/11/19 21:00 HEENT: FELIBERTO, EOM Intact Cor: RSR, No murmurs, No gallops Lungs: rhonchi Abd: Soft, Normal bowel sounds, No organomegaly Ext:No significant edema Skin: No rashes, Integument intact CBC, BMP 05/12/19 13:30 05/11/19 06:25 Current Medications Generic Name Dose Route Start Last Admin Trade Name Freq PRN Reason Stop Dose Admin Acetaminophen 650 mg 05/04/19 07:53 05/12/19 11:39 Tylenol - PO 650 mg Q6H PRN Administration FEVER Allopurinol 300 mg 05/12/19 10:00 05/12/19 11:00 Zyloprim - PO 300 mg DAILY [facility] Administration Ertapenem 1 gm/ Sodium 50 mls @ 100 mls/hr 05/09/19 16:30 05/12/19 11:00 Chloride IVPB 100 mls/hr DAILY [facility] Administration Daptomycin 300 mg/ Sodium 50 mls @ 50 mls/hr 05/09/19 18:00 05/11/19 17:29 Chloride IVPB 50 mls/hr DAILY@1800 [facility] Administration Protocol Lactobacillus Acidophilus 1 tab 05/06/19 10:00 05/12/19 11:00 Bacid - PO 1 tab DAILY [facility] Administration Lamivudine 100 mg 05/04/19 10:00 05/12/19 11:01 Epivir Oral Solution - PO 100 mg DAILY [facility] Administration Magnesium Chloride 64 mg 05/09/19 11:30 05/12/19 11:00 Slow-Mag - PO 64 mg DAILY [facility] Administration Nitrofurantoin Macrocrystals 50 mg 05/08/19 18:00 05/12/19 11:02 Macrodantin - PO 50 mg Q6HPO [facility] Administration Pantoprazole Sodium 20 mg 05/04/19 10:00 05/12/19 11:00 Protonix - PO 20 mg DAILY [facility] Administration Quetiapine Fumarate 12.5 mg 05/11/19 22:00 05/12/19 10:59 Seroquel - PO 12.5 mg BID [facility] Administration Valacyclovir HCl 500 mg 05/12/19 10:00 05/12/19 11:01 Valtrex - PO 500 mg DAILY [facility] Administration Impression: Oversedated Need to hold on xanax or adjust meds Fevers-infectious vs neoplastic Received platelets 05/11-? AML Once question of fevers/infection is resolved consider decitabine
--- NOTE | 2019-05-12 14:23 | PN ---
Progress Note (short form) - Note Progress Note: Renal follow up for EBER Seen and examined at the bedside sleeping was given xanex last night poor oral intake as per nurse making urine Vital Signs Temperature 98.0 F 05/12/19 13:44 Pulse Rate 94 H 05/12/19 13:44 Respiratory Rate 18 05/12/19 13:44 Blood Pressure 104/50 L 05/12/19 13:44 O2 Sat by Pulse Oximetry (%) 96 05/11/19 21:00 Intake & Output 05/09/19 05/10/19 05/11/19 05/12/19 23:59 23:59 23:59 23:59 Intake Total 800 1400 1072 300 Output Total 100 Balance 800 1300 1072 300 Weight 49.986 kg 50.009 kg NAD RRR, no M/R CTA soft NT/ND no LE edema CBC, BMP 05/12/19 13:30 05/11/19 06:25 Current Medications Acetaminophen (Tylenol -) 650 mg PO Q6H PRN PRN Reason: FEVER Last Admin: 05/12/19 11:39 Dose: 650 mg Allopurinol (Zyloprim -) 300 mg PO DAILY [facility] Last Admin: 05/12/19 11:00 Dose: 300 mg Ertapenem 1 gm/ Sodium (Chloride) 50 mls @ 100 mls/hr IVPB DAILY [facility] Last Admin: 05/12/19 11:00 Dose: 100 mls/hr Daptomycin 300 mg/ Sodium (Chloride) 50 mls @ 50 mls/hr IVPB DAILY@1800 [facility]; Protocol Last Admin: 05/11/19 17:29 Dose: 50 mls/hr Lactobacillus Acidophilus (Bacid -) 1 tab PO DAILY [facility] Last Admin: 05/12/19 11:00 Dose: 1 tab Lamivudine (Epivir Oral Solution -) 100 mg PO DAILY [facility] Last Admin: 05/12/19 11:01 Dose: 100 mg Magnesium Chloride (Slow-Mag -) 64 mg PO DAILY [facility] Last Admin: 05/12/19 11:00 Dose: 64 mg Nitrofurantoin Macrocrystals (Macrodantin -) 50 mg PO Q6HPO [facility] Last Admin: 05/12/19 11:02 Dose: 50 mg Pantoprazole Sodium (Protonix -) 20 mg PO DAILY [facility] Last Admin: 05/12/19 11:00 Dose: 20 mg Quetiapine Fumarate (Seroquel -) 12.5 mg PO BID [facility] Last Admin: 05/12/19 10:59 Dose: 12.5 mg Valacyclovir HCl (Valtrex -) 500 mg PO DAILY [facility] Last Admin: 05/12/19 11:01 Dose: 500 mg 73 year old woman with past medical history of CKD (baseline Cr ~1.7), CLL, CHF , HTN, HBV, unilateral hydronephrosis who presented to the ED with fevers and noted to have Cr of 3. 1. EBER on CKD secondary to volume depletoin vs. ATN vs AIN 2. CKD stage 3 3. Chronic hydronephrosis 4. Fevers 5. Acute on chronic anemia 6. Hyponatremia Renal function stable will start gentle maintiance fluid given poor oral intake Hgb improved s/p PRBC Heme follow up on empiric antibiotics as per ID f/u cultures Thank you Tr Duran DO
[2019-05-12 14:33] LABS: ANISOCYTOSIS 0; MACROCYTOSIS 0; PLATELET ESTIMATE DECREASED
[2019-05-12] MEDS ORDERED: PORTA CATH FLUSH 10 ML IVPUSH ONE (14:55)
[2019-05-12 15:24] LABS: HELMET CELLS 0; HOWELL-JOLLY BODIES 0; OVALOCYTE 0; ROULEAU 0; SICKELED CELLS 0; TARGET CELLS 0; TEAR DROP CELLS 0; TOXIC GRANULATION 0
[2019-05-12] MEDS: DAPTOMYCIN 300 MG in SODIUM CHLORIDE 50 ML IVPB SCH (18:36)
[2019-05-12] MEDS: D5-1/2NS+40 MEQ KCL - 40 MEQ/1,000 ML INFUS.BAG IV SCH (18:36)
[2019-05-12] MEDS ORDERED: PT OWN MED DRAWER 7, Y5N ONE (23:08)
[2019-05-13] MEDS: NITROFURANTOIN MACROCRYSTAL 50 MG CAPSULE (FP) PO SCH ×2 (05:36→14:08)
[2019-05-13] MEDS: ACETAMINOPHEN 325 MG TABLET (FP) PO PRN (05:36)
--- NOTE | 2019-05-13 06:16 | PN ---
Progress Note, Physician Chief Complaint: arousable but more lethargic poor po intake fever - but VSS - Current Medication List Current Medications: Active Medications Acetaminophen (Tylenol -) 650 mg PO Q6H PRN PRN Reason: FEVER Last Admin: 05/13/19 05:36 Dose: 650 mg Allopurinol (Zyloprim -) 300 mg PO DAILY [facility] Last Admin: 05/12/19 11:00 Dose: 300 mg Ertapenem 1 gm/ Sodium (Chloride) 50 mls @ 100 mls/hr IVPB DAILY [facility] Last Admin: 05/12/19 11:00 Dose: 100 mls/hr Daptomycin 300 mg/ Sodium (Chloride) 50 mls @ 50 mls/hr IVPB DAILY@1800 [facility]; Protocol Last Admin: 05/12/19 18:36 Dose: 50 mls/hr Dextrose/Sodium Chloride (D5-1/2ns+40 Meq Kcl -) 40 meq in 1,000 mls @ 75 mls/ hr IV ASDIR [facility] Stop: 05/13/19 14:29 Last Admin: 05/12/19 18:36 Dose: 75 mls/hr Lactobacillus Acidophilus (Bacid -) 1 tab PO DAILY [facility] Last Admin: 05/12/19 11:00 Dose: 1 tab Lamivudine (Epivir Oral Solution -) 100 mg PO DAILY [facility] Last Admin: 05/12/19 11:01 Dose: 100 mg Magnesium Chloride (Slow-Mag -) 64 mg PO DAILY [facility] Last Admin: 05/12/19 11:00 Dose: 64 mg Nitrofurantoin Macrocrystals (Macrodantin -) 50 mg PO Q6HPO [facility] Last Admin: 05/13/19 05:36 Dose: 50 mg Pantoprazole Sodium (Protonix -) 20 mg PO DAILY [facility] Last Admin: 05/12/19 11:00 Dose: 20 mg Quetiapine Fumarate (Seroquel -) 12.5 mg PO BID [facility] Last Admin: 05/12/19 21:27 Dose: 12.5 mg Valacyclovir HCl (Valtrex -) 500 mg PO DAILY [facility] Last Admin: 05/12/19 11:01 Dose: 500 mg - Objective Vital Signs: Vital Signs Temperature 103.1 F H 05/13/19 05:53 Pulse Rate 108 H 05/13/19 05:53 Respiratory Rate 20 05/13/19 05:53 Blood Pressure 147/67 05/13/19 05:53 O2 Sat by Pulse Oximetry (%) 96 05/12/19 21:00 Constitutional: Yes: No Distress Eyes: Yes: Conjunctiva Clear HENT: Yes: Atraumatic Neck: Yes: Supple Cardiovascular: Yes: Regular Rate and Rhythm Respiratory: Yes: CTA Bilaterally Gastrointestinal: Yes: Soft. No: Tenderness Genitourinary: No: Hematuria Musculoskeletal: No: Joint Stiffness, Joint Swelling Extremities: No: Cold, Cool, Cyanosis Edema: No Integumentary: No: Rash, Venous Stasis Changes Neurological: Yes: Alert ...Motor Strength: WNL Psychiatric: Yes: Alert. No: Agitated Labs: CBC, BMP 05/12/19 13:30 05/11/19 06:25 INR, PTT INR 1.18 (0.83-1.09) H 05/03/19 23:20 - ....Imaging Other: Report Reviewed Assessment/Plan Patient is a 73 year old lady with a significant pmh of CLL, CHF, HTN, HBV who presents yesterday with a fever. h/o UTis renal stones, and cellulitis; h/o UTI ESBL, sepsis, ARF/CRF, CLL and acute leukemia severe anemia s/p PRBC sp PLT heme ONC f/u; Transfuse Monodonor PLT and PRBCs as needed; f/u labs; d/w heme onc consider chemotherapy next week if stable sepsis on IV ATB per ID, f/u cultures; low UO increased creatinine - Henley in, IVF; fenal f/u might need ICU if hypotensive d/w dr Saucedo DVT pfx ambulation not on sq heparin or AC; falls PFX d.w pt and staff d/w daughter Dayana all the above - prognosis guarded;
[2019-05-13 07:44] LABS: BASO % 0.6 % (0-2.0); EOS % 0.7 % (0-4.5); HEMATOCRIT 29.4 % (32.4-45.2); HEMOGLOBIN 9.9 GM/dL (10.7-15.3); LYMPH % 15.9 % (8-40); MCH 29.7 pg (25.7-33.7); MCHC 33.7 g/dl (32.0-36.0); MEAN CELL VOLUME 87.9 fl (80-96); MEAN PLT VOLUME 7.7 fl (7.5-11.1); MONO % 27.6 % (3.8-10.2); NEUT % 55.2 % (42.8-82.8); PLATELET COUNT 41 K/MM3 (134-434); RBC 3.34 M/mm3 (3.60-5.2); RDW 15.8 % (11.6-15.6)
[2019-05-13 08:09] LABS: BILIRUBIN,TOTAL 0.6 mg/dL (0.2-1); BLOOD UREA NITROGEN 24.4 mg/dL (7-18); CALCIUM 9.4 mg/dL (8.5-10.1); CREATININE 1.7 mg/dL (0.55-1.3); MAGNESIUM 2.2 mg/dL (1.8-2.4); POTASSIUM 4.2 mmol/L (3.5-5.1); TOT PROT 6.2 g/dl (6.4-8.2)
[2019-05-13] MEDS: valACYclovir HCL 500 MG TABLET (FP) PO SCH (09:49)
[2019-05-13] MEDS: QUEtiapine FUMARATE 25 MG TABLET PO SCH ×2 (09:49→21:33)
[2019-05-13] MEDS: D5-1/2NS+40 MEQ KCL - 40 MEQ/1,000 ML INFUS.BAG IV SCH (09:49)
[2019-05-13] MEDS: MAGNESIUM CL 64 MG TABLET.SA PO SCH (09:50)
[2019-05-13] MEDS: PANTOPRAZOLE 20 MG TABLET PO SCH (09:50)
[2019-05-13] MEDS: LACTOBACILLUS ACIDOPHILUS 1 TABLET PO SCH (09:50)
[2019-05-13] MEDS: ALLOPURINOL 300 MG TABLET (FP) PO SCH (09:50)
[2019-05-13] MEDS: lamiVUDine 10 MG/1 ML BULK BOTTLE PO SCH (09:50)
[2019-05-13] MEDS: ERTAPENEM SODIUM 1 GM in SODIUM CHLORIDE 50 ML IVPB SCH (09:54)
[2019-05-13 10:37] LABS: ANISOCYTOSIS 2+; MACROCYTOSIS 0; PLATELET ESTIMATE DECREASED
[2019-05-13] MEDS ORDERED: ACETAMINOPHEN 1000 MG/100 ML VIAL (NON FORMULARY) IVPB PRN (13:29)
[2019-05-13] MEDS: SODIUM CHLORIDE 1,000 ML IV SCH ×2 (13:46→23:08)
--- NOTE | 2019-05-13 14:14 | PN ---
Progress Note (short form) - Note Progress Note: Patient is a 73 y/o with a past medical history of CLL, CHF, HTN, who is admitted for sepsis. Patient has positive urine and blood cultures, treated with fluids and antibiotics. We were asked to evaluate patient for her sepsis. Recent fever of 104 per the nurse. Patient is A&O x1 Vital Signs Temperature 99.4 F 05/13/19 09:00 Pulse Rate 99 H 05/13/19 09:00 Respiratory Rate 18 05/13/19 09:00 Blood Pressure 137/97 05/13/19 09:00 O2 Sat by Pulse Oximetry (%) 96 05/13/19 09:00 GENERAL: lethargic, arousable to verbal stimuli, cold packs sporadically placed EYES: Pupils equal, round and reactive to light, LUNGS: Breath sounds equal, clear to auscultation bilaterally. No wheezes, and no crackles. No accessory muscle use. HEART: Regular rate and rhythm, normal S1 and S2 without murmur ABDOMEN: Soft, nontender, not distended, normoactive bowel sounds, LOWER EXTREMITIES: 2+ pulses, warm, well-perfused. No calf tenderness. . PSYCHIATRIC: Cooperative. Good eye contact. Appropriate mood and affect. SKIN: No ulcers noted on heels of feet CBC, BMP 05/13/19 07:00 05/13/19 07:00 Assessment/Plan: Patient is a 73 y/o with a past medical history of CLL, CHF, HTN, who is admitted for sepsis. #Sepsis 2/2 to UTI with bacteremia, high fevers - currently on Ertapenem, recurrent hx of UTI with ESBL - CXR: no new source of infiltrate noted - supplemental oxygen as needed to maintain oxygen above 90 % - blood pressure monitoring q1h, please call ICU if hypotensive - recent high fevers likely 2/2 to CLL as per heme/onc - f/u repeat blood cx - continue fluid repletion Dispo: Patient currently hemodynamically stable, critical care monitoring not needed at this time. Please call back with any new concerns. Thank you for this consultative opportunity.
--- NOTE | 2019-05-13 14:22 | PN ---
Progress Note (short form) - Note Progress Note: Patient seen in follow up. Remains obtunded and unable to answer questions. Sleeping, but rousable. Dollow some commands with encouragement. Fever this morning. Inpatient Meds reviewed. Current Medications Acetaminophen (Ofirmev Injection -) 1,000 mg IVPB Q8H PRN PRN Reason: FEVER Last Admin: 05/13/19 13:47 Dose: 1,000 mg Allopurinol (Zyloprim -) 300 mg PO DAILY [facility] Last Admin: 05/13/19 09:50 Dose: 300 mg Ertapenem 1 gm/ Sodium (Chloride) 50 mls @ 100 mls/hr IVPB DAILY [facility] Last Admin: 05/13/19 09:54 Dose: 100 mls/hr Daptomycin 300 mg/ Sodium (Chloride) 50 mls @ 50 mls/hr IVPB DAILY@1800 [facility]; Protocol Last Admin: 05/12/19 18:36 Dose: 50 mls/hr Sodium Chloride (Normal Saline -) 1,000 mls @ 100 mls/hr IV ASDIR [facility] Last Admin: 05/13/19 13:46 Dose: 100 mls/hr Lactobacillus Acidophilus (Bacid -) 1 tab PO DAILY [facility] Last Admin: 05/13/19 09:50 Dose: 1 tab Lamivudine (Epivir Oral Solution -) 100 mg PO DAILY [facility] Last Admin: 05/13/19 09:50 Dose: 100 mg Magnesium Chloride (Slow-Mag -) 64 mg PO DAILY [facility] Last Admin: 05/13/19 09:50 Dose: 64 mg Pantoprazole Sodium (Protonix -) 20 mg PO DAILY [facility] Last Admin: 05/13/19 09:50 Dose: 20 mg Quetiapine Fumarate (Seroquel -) 12.5 mg PO BID [facility] Last Admin: 05/13/19 09:49 Dose: 12.5 mg Valacyclovir HCl (Valtrex -) 500 mg PO DAILY [facility] Last Admin: 05/13/19 09:49 Dose: 500 mg On Examination: Last Vital Signs Temp Pulse Resp BP Pulse Ox 99.4 F 99 H 18 137/97 96 05/13/19 09:00 05/13/19 09:00 05/13/19 09:00 05/13/19 09:00 05/13/19 09:00 General: In no acute distress, sleeping. Extremities: No pallor or icterus. No pedal edema. No palpable lymphadenopathy. CVS: S1, S2, regular, no gallop or murmur. Chest: good air entry bilaterally, clear Abdomen: Non-distended, non-tender, no palpable organomegaly. Neuro: As described above. Non-focal. Labs: CBC, BMP 05/13/19 07:00 05/13/19 07:00 Assessment. Complicated hematological history, including prior CLL, with secondary ITP - now quiescent. 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 Now satssfying criteria for AML based on peripheral blood blast count. Now with altered mental status and fever, likely attributable to sepsis, on broad spectrum empiric Abics, cultures pending. Depressed mental status attributed in part to BDZ, but expected improvement has not occurred, raising concern. Continue supportive care. Monitor counts.
[2019-05-13] MEDS: DAPTOMYCIN 300 MG in SODIUM CHLORIDE 50 ML IVPB SCH (17:32)
--- NOTE | 2019-05-13 18:19 | PN ---
Progress Note, Physician History of Present Illness: SUPINE IN BED LETHARGIC HIGH GRADE TEMP NOTED WBC ELEVATED WITH BLASTS - Current Medication List Current Medications: Active Medications Acetaminophen (Ofirmev Injection -) 1,000 mg IVPB Q8H PRN PRN Reason: FEVER Last Admin: 05/13/19 13:47 Dose: 1,000 mg Allopurinol (Zyloprim -) 300 mg PO DAILY [facility] Last Admin: 05/13/19 09:50 Dose: 300 mg Ertapenem 1 gm/ Sodium (Chloride) 50 mls @ 100 mls/hr IVPB DAILY [facility] Last Admin: 05/13/19 09:54 Dose: 100 mls/hr Daptomycin 300 mg/ Sodium (Chloride) 50 mls @ 50 mls/hr IVPB DAILY@1800 [facility]; Protocol Last Admin: 05/13/19 17:32 Dose: 50 mls/hr Sodium Chloride (Normal Saline -) 1,000 mls @ 100 mls/hr IV ASDIR [facility] Last Admin: 05/13/19 13:46 Dose: 100 mls/hr Lactobacillus Acidophilus (Bacid -) 1 tab PO DAILY [facility] Last Admin: 05/13/19 09:50 Dose: 1 tab Lamivudine (Epivir Oral Solution -) 100 mg PO DAILY [facility] Last Admin: 05/13/19 09:50 Dose: 100 mg Magnesium Chloride (Slow-Mag -) 64 mg PO DAILY [facility] Last Admin: 05/13/19 09:50 Dose: 64 mg Pantoprazole Sodium (Protonix -) 20 mg PO DAILY [facility] Last Admin: 05/13/19 09:50 Dose: 20 mg Quetiapine Fumarate (Seroquel -) 12.5 mg PO BID [facility] Last Admin: 05/13/19 09:49 Dose: 12.5 mg Valacyclovir HCl (Valtrex -) 500 mg PO DAILY [facility] Last Admin: 05/13/19 09:49 Dose: 500 mg - Objective Vital Signs: Vital Signs Temperature 99.6 F 05/13/19 14:49 Pulse Rate 106 H 05/13/19 14:49 Respiratory Rate 18 05/13/19 14:49 Blood Pressure 115/51 L 05/13/19 14:49 O2 Sat by Pulse Oximetry (%) 96 05/13/19 09:00 Constitutional: Yes: No Distress Cardiovascular: Yes: Regular Rate and Rhythm, Tachycardia, S1, S2 Respiratory: Yes: Diminished Gastrointestinal: Yes: Normal Bowel Sounds, Soft Edema: No Labs: CBC, BMP 05/13/19 07:00 05/13/19 07:00 INR, PTT INR 1.18 (0.83-1.09) H 05/03/19 23:20 Assessment/Plan FEVER LEUKOCYTOSIS WITH BLASTS ? SEPSIS ? ACUTE LEUKEMIA REPEAT BC OBTAINED RECURRENT UTI HX ESBL AZOTEMIA MDS VANCOMYCIN ALLERGY REPEAT CULTURES OBTAINED CONTINUE EMPIRIC ERTAPENEM/ DAPTO (VANCOMYCIN ALLERGY)
[2019-05-13] MEDS: ACETAMINOPHEN 1000 MG/100 ML VIAL (NON FORMULARY) IVPB PRN (20:45)
[2019-05-14] MEDS: ACETAMINOPHEN 1000 MG/100 ML VIAL (NON FORMULARY) IVPB PRN ×3 (03:07→17:03)
[2019-05-14 07:30] LABS: BASO % 0.5 % (0-2.0); EOS % 0.5 % (0-4.5); HEMATOCRIT 25.9 % (32.4-45.2); HEMOGLOBIN 8.6 GM/dL (10.7-15.3); LYMPH % 12.7 % (8-40); MCH 29.6 pg (25.7-33.7); MCHC 33.1 g/dl (32.0-36.0); MEAN CELL VOLUME 89.3 fl (80-96); MEAN PLT VOLUME 7.4 fl (7.5-11.1); MONO % 24.8 % (3.8-10.2); NEUT % 61.5 % (42.8-82.8); RDW 16.2 % (11.6-15.6); WHITE BLOOD COUNT 24.6 K/mm3 (4.0-10.0)
[2019-05-14 07:38] LABS: PLATELET COUNT 17 K/MM3 (134-434)
[2019-05-14 08:04] LABS: BLOOD UREA NITROGEN 30.6 mg/dL (7-18); CALCIUM 9.3 mg/dL (8.5-10.1); CREATININE 1.8 mg/dL (0.55-1.3); POTASSIUM 4.4 mmol/L (3.5-5.1)
[2019-05-14] MEDS: ERTAPENEM SODIUM 1 GM in SODIUM CHLORIDE 50 ML IVPB SCH (09:26)
[2019-05-14 09:27] LABS: ANISOCYTOSIS 1+; MACROCYTOSIS 0; PLATELET ESTIMATE DECREASED
--- NOTE | 2019-05-14 09:37 | PN ---
Progress Note, Physician Chief Complaint: awake alert; fever; BP stable and O2 sat / RA stable; CXR done moist cough; on broad spectrum ATB seen by ID and heme onc - Current Medication List Current Medications: Active Medications Acetaminophen (Ofirmev Injection -) 1,000 mg IVPB Q6H PRN PRN Reason: FEVER Stop: 05/14/19 20:16 Last Admin: 05/14/19 09:26 Dose: 1,000 mg Allopurinol (Zyloprim -) 300 mg PO DAILY [facility] Last Admin: 05/13/19 09:50 Dose: 300 mg Ertapenem 1 gm/ Sodium (Chloride) 50 mls @ 100 mls/hr IVPB DAILY [facility] Last Admin: 05/14/19 09:26 Dose: 100 mls/hr Daptomycin 300 mg/ Sodium (Chloride) 50 mls @ 50 mls/hr IVPB DAILY@1800 [facility]; Protocol Last Admin: 05/13/19 17:32 Dose: 50 mls/hr Sodium Chloride (Normal Saline -) 1,000 mls @ 100 mls/hr IV ASDIR [facility] Last Admin: 05/13/19 23:08 Dose: 100 mls/hr Lactobacillus Acidophilus (Bacid -) 1 tab PO DAILY [facility] Last Admin: 05/13/19 09:50 Dose: 1 tab Lamivudine (Epivir Oral Solution -) 100 mg PO DAILY [facility] Last Admin: 05/13/19 09:50 Dose: 100 mg Magnesium Chloride (Slow-Mag -) 64 mg PO DAILY [facility] Last Admin: 05/13/19 09:50 Dose: 64 mg Pantoprazole Sodium (Protonix -) 20 mg PO DAILY [facility] Last Admin: 05/13/19 09:50 Dose: 20 mg Quetiapine Fumarate (Seroquel -) 12.5 mg PO BID [facility] Last Admin: 05/13/19 21:33 Dose: 12.5 mg Valacyclovir HCl (Valtrex -) 500 mg PO DAILY [facility] Last Admin: 05/13/19 09:49 Dose: 500 mg - Objective Vital Signs: Vital Signs Temperature 99.2 F 05/14/19 06:00 Pulse Rate 89 05/13/19 19:00 Respiratory Rate 18 05/14/19 06:00 Blood Pressure 111/52 L 05/14/19 06:00 O2 Sat by Pulse Oximetry (%) 96 05/13/19 21:00 Constitutional: Yes: No Distress, Calm Eyes: Yes: Conjunctiva Clear HENT: Yes: Atraumatic Neck: Yes: Supple Cardiovascular: Yes: Regular Rate and Rhythm Respiratory: Yes: Rales Gastrointestinal: Yes: Soft. No: Tenderness Genitourinary: No: Hematuria Musculoskeletal: No: Joint Swelling, Muscle Pain Extremities: No: Cold, Cool, Cyanosis Edema: No Integumentary: Yes: Bruising. No: Erythema, Jaundice, Venous Stasis Changes Neurological: Yes: Alert ...Motor Strength: WNL Psychiatric: Yes: Alert. No: Agitated, Suicidal Ideation Labs: CBC, BMP 05/14/19 06:20 05/14/19 06:20 INR, PTT INR 1.18 (0.83-1.09) H 05/03/19 23:20 - ....Imaging Chest X-ray: Report Reviewed Other: Report Reviewed Assessment/Plan Patient is a 73 year old lady with a significant pmh of CLL, CHF, HTN, HBV admitted with fever. h/o UTis renal stones, and cellulitis; h/o UTI ESBL, sepsis , ARF/CRF, CLL and acute leukemia severe anemia s/p PRBC sp PLT heme ONC f/u; Transfuse Monodonor PLT and PRBCs as needed; f/u labs; impending sepsis on IV ATB broad spectrum per ID, f/u cultures; low UO increased creatinine - Hen[place] in, IVF; renal f/u d w/ dr Douglass covering renal might need ICU if hypotensive d/w dr Saucedo ICU; for now BP stable will watch closely heme onc f/u; transfuse as necessary DVT pfx ambulation not on sq heparin or AC; falls PFX d.w pt and staff d/w daughter Dayana all the above - prognosis guarded;
[2019-05-14] MEDS ORDERED: SODIUM CHLORIDE 1,000 ML IV SCH ×2 (09:46→13:00)
--- NOTE | 2019-05-14 10:59 | PN ---
Progress Note (short form) - Note Progress Note: RENAL Asked to follow up on this patient who was lasr seen by Dr Duran 2 days ago. Her creat has risen and we are asked to follow Last Vital Signs Temp Pulse Resp BP Pulse Ox 99.2 F 89 18 111/52 L 96 05/14/19 06:00 05/13/19 19:00 05/14/19 06:00 05/14/19 06:00 05/13/19 21:00 +JVD with increased pulsation Lungs rhonchi cvs s1s2 rr abd soft ext +edema neuro asleep, not responding CBC, BMP 05/14/19 06:20 05/14/19 06:20 Current Medications Generic Name Dose Route Start Last Admin Trade Name Freq PRN Reason Stop Dose Admin Acetaminophen 1,000 mg 05/13/19 20:17 05/14/19 09:26 Ofirmev Injection - IVPB 05/14/19 20:16 1,000 mg Q6H PRN Administration FEVER Allopurinol 300 mg 05/12/19 10:00 05/13/19 09:50 Zyloprim - PO 300 mg DAILY [facility] Administration Ertapenem 1 gm/ Sodium 50 mls @ 100 mls/hr 05/09/19 16:30 05/14/19 09:26 Chloride IVPB 100 mls/hr DAILY [facility] Administration Daptomycin 300 mg/ Sodium 50 mls @ 50 mls/hr 05/09/19 18:00 05/13/19 17:32 Chloride IVPB 50 mls/hr DAILY@1800 [facility] Administration Protocol Sodium Chloride 1,000 mls @ 50 mls/hr 05/14/19 09:46 Normal Saline - IV ASDIR [facility] Lactobacillus Acidophilus 1 tab 05/06/19 10:00 05/13/19 09:50 Bacid - PO 1 tab DAILY [facility] Administration Lamivudine 100 mg 05/04/19 10:00 05/13/19 09:50 Epivir Oral Solution - PO 100 mg DAILY [facility] Administration Magnesium Chloride 64 mg 05/09/19 11:30 05/13/19 09:50 Slow-Mag - PO 64 mg DAILY [facility] Administration Pantoprazole Sodium 20 mg 05/04/19 10:00 05/13/19 09:50 Protonix - PO 20 mg DAILY [facility] Administration Quetiapine Fumarate 12.5 mg 05/11/19 22:00 05/13/19 21:33 Seroquel - PO 12.5 mg BID [facility] Administration Valacyclovir HCl 500 mg 05/12/19 10:00 05/13/19 09:49 Valtrex - PO 500 mg DAILY [facility] Administration 73 year old woman with past medical history of CKD (baseline Cr ~1.7), CLL, CHF , HTN, HBV, unilateral hydronephrosis who presented to the ED with fevers and noted to have Cr of 3. 1. EBER on CKD secondary to volume depletoin vs. ATN vs AIN- from meds 2. CKD stage 3 3. Chronic hydronephrosis 4. Fevers 5. Acute on chronic anemia 6. Hyponatremia resolved PLAN obtain urine sodium abd creat check renal sono urine eos echo MV
[2019-05-14] MEDS: LACTOBACILLUS ACIDOPHILUS 1 TABLET PO SCH (11:15)
[2019-05-14] MEDS: PANTOPRAZOLE 20 MG TABLET PO SCH (11:15)
[2019-05-14] MEDS: lamiVUDine 10 MG/1 ML BULK BOTTLE PO SCH (11:15)
[2019-05-14] MEDS: valACYclovir HCL 500 MG TABLET (FP) PO SCH (11:16)
[2019-05-14] MEDS: MAGNESIUM CL 64 MG TABLET.SA PO SCH (11:16)
[2019-05-14] MEDS: ALLOPURINOL 300 MG TABLET (FP) PO SCH (11:16)
[2019-05-14] MEDS: QUEtiapine FUMARATE 25 MG TABLET PO SCH ×3 (11:16→21:24)
--- NOTE | 2019-05-14 13:10 | PN ---
Progress Note (short form) - Note Progress Note: Patient seen in follow up. Remains obtunded, and responsive to stimuli. Not following commands , non-purposeful grimacing. Ongoing fevers. Inpatient Meds reviewed. Current Medications Generic Name Dose Route Start Last Admin Trade Name Freq PRN Reason Stop Dose Admin Acetaminophen 1,000 mg 05/13/19 20:17 05/14/19 09:26 Ofirmev Injection - IVPB 05/14/19 20:16 1,000 mg Q6H PRN Administration FEVER Allopurinol 300 mg 05/12/19 10:00 05/14/19 11:16 Zyloprim - PO Not Given DAILY [facility] Ertapenem 1 gm/ Sodium 50 mls @ 100 mls/hr 05/09/19 16:30 05/14/19 09:26 Chloride IVPB 100 mls/hr DAILY [facility] Administration Daptomycin 300 mg/ Sodium 50 mls @ 50 mls/hr 05/09/19 18:00 05/13/19 17:32 Chloride IVPB 50 mls/hr DAILY@1800 [facility] Administration Protocol Sodium Chloride 1,000 mls @ 75 mls/hr 05/14/19 13:00 Normal Saline - IV ASDIR [facility] Lactobacillus Acidophilus 1 tab 05/06/19 10:00 05/14/19 11:15 Bacid - PO Not Given DAILY [facility] Lamivudine 100 mg 05/04/19 10:00 05/14/19 11:15 Epivir Oral Solution - PO Not Given DAILY [facility] Magnesium Chloride 64 mg 05/09/19 11:30 05/14/19 11:16 Slow-Mag - PO Not Given DAILY [facility] Pantoprazole Sodium 20 mg 05/04/19 10:00 05/14/19 11:15 Protonix - PO Not Given DAILY [facility] Quetiapine Fumarate 12.5 mg 05/11/19 22:00 05/14/19 11:16 Seroquel - PO Not Given BID [facility] Valacyclovir HCl 500 mg 05/12/19 10:00 05/14/19 11:16 Valtrex - PO Not Given DAILY [facility] On Examination: Last Vital Signs Temp Pulse Resp BP Pulse Ox 102.7 F H 124 H 18 143/68 96 05/14/19 10:00 05/14/19 10:00 05/14/19 10:00 05/14/19 10:00 05/14/19 09:00 General: In no acute distress, dry axillae and mucous memebranes Extremities: No pallor or icterus. No pedal edema. No palpable lymphadenopathy. CVS: S1, S2, regular, no gallop or murmur. Chest: good air entry bilaterally, clear Abdomen: Non-distended, non-tender, no palpable organomegaly. Neuro: As described above. Non-focal. Labs: CBC, BMP 05/14/19 06:20 05/14/19 06:20 Assessment. Complicated hematological history, including prior CLL, with secondary ITP - now quiescent. Also recurrent anemia, multifactorial, including prior GI hemorrhages, possible immune hemolysis, and recent diagnosis of MDS/AML (bone marrow biopsy mid February 2019). Now satisfying criteria for AML based on peripheral blood blast count. Now with altered mental status and fever, likely attributable to sepsis, on broad spectrum empiric Abics, cultures pending. Fevers persisting - ID following. Possibility of non-infectious etiology for fevers. Depressed mental status attributed in part to BDZ, but expected improvement has not occurred, raising concern. Likely metabolic, but consider scanning if no improvement seen. Maintenance IV fluids. Prophylactic platelets for platelet count < 20. Prognosis guarded.
[2019-05-14] MEDS: DAPTOMYCIN 300 MG in SODIUM CHLORIDE 50 ML IVPB SCH (17:04)
[2019-05-14 22:11] LABS: EPI CELLS 16.8 /HPF (0-5/HPF); HYALINE CASTS 76 /lpf (0-8); URINE APPEARANCE TURBID; URINE BILIRUBIN NEGATIVE (NEGATIVE); URINE COLOR YELLOW; URINE GLUCOSE (UA) NEGATIVE (NEGATIVE); URINE KETONE NEGATIVE (NEGATIVE); URINE LEUK ESTERASE 1+ (NEGATIVE); URINE NITRITE NEGATIVE (NEGATIVE); URINE PROTEIN 1+ (NEGATIVE); URINE RBC 88 /hpf (0-4); URINE UROBILINOGEN 0.2 mg/dL (0.2-1.0); URINE WBC 34 /hpf (0-5)
[2019-05-14 23:17] LABS: URINE BACTERIA FEW /hpf (NEGATIVE); YEAST NONE SEEN (NEGATIVE)
[2019-05-15] MEDS: ACETAMINOPHEN 1000 MG/100 ML VIAL (NON FORMULARY) IVPB PRN (05:46)
[2019-05-15] MEDS: PORTA CATH FLUSH 10 ML IVPUSH PRN (05:54)
[2019-05-15 07:07] LABS: BASO % 3.6 % (0-2.0); EOS % 0.9 % (0-4.5); HEMATOCRIT 26.4 % (32.4-45.2); HEMOGLOBIN 8.5 GM/dL (10.7-15.3); LYMPH % 12.5 % (8-40); MCH 29.4 pg (25.7-33.7); MCHC 32.1 g/dl (32.0-36.0); MEAN CELL VOLUME 91.4 fl (80-96); MEAN PLT VOLUME 8.9 fl (7.5-11.1); MONO % 25.8 % (3.8-10.2); NEUT % 57.2 % (42.8-82.8); RBC 2.89 M/mm3 (3.60-5.2); RDW 16.4 % (11.6-15.6); WHITE BLOOD COUNT 23.1 K/mm3 (4.0-10.0)
--- NOTE | 2019-05-15 07:39 | RAPID ---
Physical Examination Vital Signs: Rapid response was called overhead. Rapid response team arrived at scene to find a 73 y/o pt unresponsive and in respiratory distress. Pt failed to respond to verbal and painful stimuli. Pt's mental status was poor. Pt appeared to have difficulty protect her airway. Vitals appeared to be stable with blood pressure 129/90, HR 110, and pulse oxygen at 98%. Anesthesia was called overhead. Anesthesia decided to intubate pt w/ 60mg of succinylcholine. PE: General: unresponsive, GCS poor Pul: decreased breath sounds b/l, decreased resp rate CV: RRR, no m/g/r Vital Signs Temperature 100.6 F H 05/15/19 06:54 Pulse Rate 115 H 05/15/19 05:54 Respiratory Rate 18 05/15/19 05:54 Blood Pressure 146/66 05/15/19 05:54 O2 Sat by Pulse Oximetry (%) 96 05/14/19 21:00 A/P #Unresponsiveness CT head ordered ICU consutled Discussed taking pt to CAT Head scan first before ICU since pt is already intubated and unresponsive before and after intubation. Nurse manager hiv on the floor disagreed and transported pt to ICU first. #Resp distress lijkely 2/ to fluid overload CXR ordered CBC, CMP Labs: CBC, BMP 05/15/19 05:55
[2019-05-15 07:41] LABS: ALBUMIN 2.9 g/dl (3.4-5.0); BILIRUBIN,TOTAL 0.5 mg/dL (0.2-1); BLOOD UREA NITROGEN 39.9 mg/dL (7-18); CALCIUM 9.6 mg/dL (8.5-10.1); CREATININE 1.8 mg/dL (0.55-1.3); POTASSIUM 4.9 mmol/L (3.5-5.1); TOT PROT 6.2 g/dl (6.4-8.2)
[2019-05-15 07:49] LABS: PLATELET COUNT 9 K/MM3 (134-434)
--- NOTE | 2019-05-15 08:05 | PROC ---
Intubation - Intubation Reason for Intubation: Airway Protection, Other Time of Intubation: 19:35 Intubation Method: orotracheal Blade used: Mac Tube Size (cm): 7.0 Tube position @ lip (cm): 20.5 Tube position confirmed by: Direct visualization, CO2 detector, Breath sounds Breath Sounds after Intubation: equal Post Intubation Xray: Yes Remarks: Pt. found unresponsive this am by primary team. Pt. immediately examined at bedside and noted to be completely unresponsive. VS: HR: 130 BP: 125/76, RR: 24 O2: 95% on NRB PE: GEN: unressponsive to sternal rub. Pt. noted to have blood in oropharynx ( Plat this am = 9) CV: tachy, no murmors Resp: crackles, inadequate resp effort Abd: NT/ND Labs: reviewed TTE from 2019 reviewed Pt. intubated with 60mg of succinylcholine and intubated with MAC4. Grade 1 view of vocal cords. 7.0 ETT passed and secured at 20.5cm. +ETCO2. +BS(B). Primary team and rapid response team at bedside and care transferred to them. Will transport to the ICU. Recommend checking CXR and ABG.
[2019-05-15] MEDS: PHENYLEPHRINE HCL 20,000 MCG in SODIUM CHLORIDE 248 ML IVPB SCH ×2 (08:30→19:44)
[2019-05-15] MEDS: MIDAZOLAM IN 0.9 % SOD.CHLORID 100 MG/100 ML PLAST..BAG IVPB SCH (09:50)
[2019-05-15] MEDS ORDERED: MIDAZOLAM IN 0.9 % SOD.CHLORID 1 MG/1 ML PLAST..BAG ONE (09:55)
[2019-05-15 10:01] LABS: ANISOCYTOSIS 1+; MACROCYTOSIS 0; PLATELET ESTIMATE DECREASED
[2019-05-15] MEDS: MAGNESIUM CL 64 MG TABLET.SA PO SCH (10:09)
[2019-05-15] MEDS: QUEtiapine FUMARATE 25 MG TABLET PO SCH ×2 (10:09→22:49)
[2019-05-15] MEDS: LACTOBACILLUS ACIDOPHILUS 1 TABLET PO SCH (10:09)
[2019-05-15] MEDS: PANTOPRAZOLE 20 MG TABLET PO SCH (10:09)
[2019-05-15] MEDS: ALLOPURINOL 300 MG TABLET (FP) PO SCH (10:09)
[2019-05-15] MEDS: lamiVUDine 10 MG/1 ML BULK BOTTLE PO SCH (10:09)
[2019-05-15] MEDS: valACYclovir HCL 500 MG TABLET (FP) PO SCH (10:09)
[2019-05-15 10:59] LABS: ARTERIAL BLD GAS O2 SATURATION 98.7 % (95-98); ARTERIAL BLOOD GAS PCO2 46.4 mmHg (35-45); ARTERIAL BLOOD GAS PO2 135 mmHg (80-100); ARTERIAL BLOOD GAS pH 7.34 (7.35-7.45)
[2019-05-15 11:00] LABS: ALLENS TEST POSITIVE
--- NOTE | 2019-05-15 11:44 | PN ---
Progress Note, Physician History of Present Illness: Pt is admitted to ICU, sedated, on Midazolam. Pt's family is at bedside. - Current Medication List Current Medications: Active Medications Acetaminophen (Ofirmev Injection -) 1,000 mg IVPB Q6H PRN PRN Reason: FEVER Last Admin: 05/15/19 05:46 Dose: 1,000 mg Allopurinol (Zyloprim -) 300 mg PO DAILY [facility] Last Admin: 05/15/19 10:09 Dose: Not Given IV Flush (Angelina-Cath Flush) 10 ml IVPUSH PRN PRN PRN Reason: protocol, maintain patency Last Admin: 05/15/19 05:54 Dose: 10 ml Ertapenem 1 gm/ Sodium (Chloride) 50 mls @ 100 mls/hr IVPB DAILY [facility] Last Admin: 05/14/19 09:26 Dose: 100 mls/hr Daptomycin 300 mg/ Sodium (Chloride) 50 mls @ 50 mls/hr IVPB DAILY@1800 RYAN; Protocol Last Admin: 05/14/19 17:04 Dose: 50 mls/hr Sodium Chloride (Normal Saline -) 1,000 mls @ 75 mls/hr IV ASDIR RYAN Last Admin: 05/14/19 13:50 Dose: 75 mls/hr Midazolam HCl (Midazolam 100mg/100ml-0.9%Nacl) 100 mg in 100 mls @ 1 mls/hr IVPB TITR [facility]; Protocol Last Admin: 05/15/19 09:50 Dose: 1 mg/hr, 1 mls/hr Lactobacillus Acidophilus (Bacid -) 1 tab PO DAILY [facility] Last Admin: 05/15/19 10:09 Dose: Not Given Lamivudine (Epivir Oral Solution -) 100 mg PO DAILY [facility] Last Admin: 05/15/19 10:09 Dose: Not Given Magnesium Chloride (Slow-Mag -) 64 mg PO DAILY [facility] Last Admin: 05/15/19 10:09 Dose: Not Given Pantoprazole Sodium (Protonix -) 20 mg PO DAILY [facility] Last Admin: 05/15/19 10:09 Dose: Not Given Quetiapine Fumarate (Seroquel -) 12.5 mg PO BID [facility] Last Admin: 05/15/19 10:09 Dose: Not Given Valacyclovir HCl (Valtrex -) 500 mg PO DAILY [facility] Last Admin: 02/17/20 10:09 Dose: Not Given - Objective Vital Signs: Vital Signs Temperature 101.1 F H 05/15/19 07:00 Pulse Rate 92 H 05/15/19 09:20 Respiratory Rate 16 05/15/19 09:20 Blood Pressure 99/79 05/15/19 09:20 O2 Sat by Pulse Oximetry (%) 98 05/15/19 09:00 Constitutional: Yes: No Distress, Calm (sedated) Cardiovascular: Yes: Regular Rate and Rhythm, S1, S2 Respiratory: Yes: Regular, Other Gastrointestinal: Yes: Normal Bowel Sounds, Soft. No: Palpable Mass Edema: No Neurological: Yes: Alert, Other (sedated) Labs: CBC, BMP 05/15/19 05:55 05/15/19 05:55 INR, PTT INR 1.18 (0.83-1.09) H 05/03/19 23:20 - ....Imaging Chest X-ray: Report Reviewed, Image Reviewed Problem List - Problems (1) AML (acute myeloblastic leukemia) Code(s): C92.00 - ACUTE MYELOBLASTIC LEUKEMIA, NOT HAVING ACHIEVED REMISSION (2) Fever Code(s): R50.9 - FEVER, UNSPECIFIED Qualifiers: Fever type: unspecified Qualified Code(s): R50.9 - Fever, unspecified (3) UTI (urinary tract infection) Code(s): N39.0 - URINARY TRACT INFECTION, SITE NOT SPECIFIED Qualifiers: Urinary tract infection type: acute cystitis Hematuria presence: without hematuria Qualified Code(s): N30.00 - Acute cystitis without hematuria (4) Anemia Code(s): D64.9 - ANEMIA, UNSPECIFIED Qualifiers: Anemia type: unspecified type Qualified Code(s): D64.9 - Anemia, unspecified (5) Thrombocytopenia Code(s): D69.6 - THROMBOCYTOPENIA, UNSPECIFIED (6) EBER (acute kidney injury) Code(s): N17.9 - ACUTE KIDNEY FAILURE, UNSPECIFIED Assessment/Plan Admitted to ICU On Pressors on IV sedation on IV abtx. S/p PRBC Tx. Transfuse Platelets. To monitor CBC Intubated for airway protection; to monitor for aspiration PNA CCM, Heme, Renal, ID consults and f/u are appreciated. Pt's condition was d/w pt's family, at bedside, and ICU team, Dr Garcia. Time spent for coordination of care: over 40 minutes
[2019-05-15] MEDS: SODIUM CHLORIDE 0.45% 1,000 ML IV SCH (12:00)
[2019-05-15] MEDS: ERTAPENEM SODIUM 1 GM in SODIUM CHLORIDE 50 ML IVPB SCH (12:23)
--- NOTE | 2019-05-15 12:26 | PN ---
Progress Note, Physician History of Present Illness: Pt seen and examined at bedside. She remains in the ICU. She remains intubated. - Current Medication List Current Medications: Active Medications Acetaminophen (Ofirmev Injection -) 1,000 mg IVPB Q6H PRN PRN Reason: FEVER Last Admin: 05/15/19 05:46 Dose: 1,000 mg Allopurinol (Zyloprim -) 300 mg PO DAILY [facility] Last Admin: 05/15/19 10:09 Dose: Not Given IV Flush (Angelina-Cath Flush) 10 ml IVPUSH PRN PRN PRN Reason: protocol, maintain patency Last Admin: 05/15/19 05:54 Dose: 10 ml Ertapenem 1 gm/ Sodium (Chloride) 50 mls @ 100 mls/hr IVPB DAILY [facility] Last Admin: 05/14/19 09:26 Dose: 100 mls/hr Daptomycin 300 mg/ Sodium (Chloride) 50 mls @ 50 mls/hr IVPB DAILY@1800 RYAN; Protocol Last Admin: 05/14/19 17:04 Dose: 50 mls/hr Sodium Chloride (Normal Saline -) 1,000 mls @ 75 mls/hr IV ASDIR [facility] Last Admin: 05/14/19 13:50 Dose: 75 mls/hr Midazolam HCl (Midazolam 100mg/100ml-0.9%Nacl) 100 mg in 100 mls @ 1 mls/hr IVPB TITR [facility]; Protocol Last Admin: 05/15/19 09:50 Dose: 1 mg/hr, 1 mls/hr Lactobacillus Acidophilus (Bacid -) 1 tab PO DAILY [facility] Last Admin: 05/15/19 10:09 Dose: Not Given Lamivudine (Epivir Oral Solution -) 100 mg PO DAILY [facility] Last Admin: 05/15/19 10:09 Dose: Not Given Magnesium Chloride (Slow-Mag -) 64 mg PO DAILY [facility] Last Admin: 05/15/19 10:09 Dose: Not Given Pantoprazole Sodium (Protonix -) 20 mg PO DAILY [facility] Last Admin: 05/15/19 10:09 Dose: Not Given Quetiapine Fumarate (Seroquel -) 12.5 mg PO BID [facility] Last Admin: 05/15/19 10:09 Dose: Not Given Valacyclovir HCl (Valtrex -) 500 mg PO DAILY [facility] Last Admin: 05/15/19 10:09 Dose: Not Given - Objective Vital Signs: Vital Signs Temperature 101.1 F H 05/15/19 07:00 Pulse Rate 65 05/15/19 12:09 Respiratory Rate 14 05/15/19 12:16 Blood Pressure 85/49 L 05/15/19 12:09 O2 Sat by Pulse Oximetry (%) 98 05/15/19 09:00 Constitutional: Yes: Calm Eyes: Yes: Conjunctiva Clear HENT: Yes: Atraumatic Neck: Yes: Supple Cardiovascular: Yes: S1, S2 Respiratory: Yes: Mechanically Ventilated Gastrointestinal: Yes: Soft Genitourinary: Yes: Henley Present Musculoskeletal: Yes: Muscle Weakness Edema: No Neurological: Yes: Lethargy Labs: CBC, BMP 05/15/19 05:55 05/15/19 05:55 INR, PTT INR 1.18 (0.83-1.09) H 05/03/19 23:20 - ....Imaging Chest X-ray: Report Reviewed Assessment/Plan Current Medications Generic Name Dose Route Start Last Admin Trade Name Freq PRN Reason Stop Dose Admin Acetaminophen 1,000 mg 05/15/19 05:34 05/15/19 05:46 Ofirmev Injection - IVPB 1,000 mg Q6H PRN Administration FEVER Allopurinol 300 mg 05/12/19 10:00 05/15/19 10:09 Zyloprim - PO Not Given DAILY RYAN IV Flush 10 ml 05/14/19 23:31 05/15/19 05:54 Angelina-Cath Flush IVPUSH 10 ml PRN PRN Administration protocol, maintain patency Ertapenem 1 gm/ Sodium 50 mls @ 100 mls/hr 05/09/19 16:30 05/14/19 09:26 Chloride IVPB 100 mls/hr DAILY RYAN Administration Daptomycin 300 mg/ Sodium 50 mls @ 50 mls/hr 05/09/19 18:00 05/14/19 17:04 Chloride IVPB 50 mls/hr DAILY@1800 RYAN Administration Protocol Sodium Chloride 1,000 mls @ 75 mls/hr 05/14/19 13:00 05/14/19 13:50 Normal Saline - IV 75 mls/hr ASDIR RYAN Administration Midazolam HCl 100 mg in 100 mls @ 1 mls/hr 05/15/19 09:45 05/15/19 09:50 Midazolam 100mg/100ml-0.9%Nacl IVPB 1 mg/hr TITR RYAN 1 mls/hr Administration Protocol 1 MG/HR Lactobacillus Acidophilus 1 tab 05/06/19 10:00 05/15/19 10:09 Bacid - PO Not Given DAILY RYAN Lamivudine 100 mg 05/04/19 10:00 05/15/19 10:09 Epivir Oral Solution - PO Not Given DAILY RYAN Magnesium Chloride 64 mg 05/09/19 11:30 05/15/19 10:09 Slow-Mag - PO Not Given DAILY RYAN Pantoprazole Sodium 20 mg 05/04/19 10:00 05/15/19 10:09 Protonix - PO Not Given DAILY RYAN Quetiapine Fumarate 12.5 mg 05/11/19 22:00 05/15/19 10:09 Seroquel - PO Not Given BID RYAN Valacyclovir HCl 500 mg 05/12/19 10:00 05/15/19 10:09 Valtrex - PO Not Given DAILY RYAN 1. EBER 2. CKD stage 3 3. Chronic hydronephrosis 4. Fevers 5. Acute on chronic anemia 6. Hyponatremia 7. hypernatremia Plan - cont to monitor renal function - hypotension likely contributed to eber - maintain map 65 - change fluids to 1/2 ns - check mag level - discussed with medical team
--- NOTE | 2019-05-15 12:40 | PN ---
Teaching Attending Note Name of Resident: Neymar Leo ATTENDING PHYSICIAN STATEMENT I saw and evaluated the patient. I reviewed the resident's note and discussed the case with the resident. I agree with the resident's findings and plan as documented. SUBJECTIVE: Pt seen and examined in the ICU. Transferred to ICU after acute hypoxic respiratory failure, intubated on floor by anesthesia. Now on phenylephrine gtt. Bloody secretions in ETT. OBJECTIVE: Vital Signs Period Temp Pulse Resp BP Sys/Borjas Pulse Ox Last 24 Hr 98.3 F-103.3 F 65-130 14-22 78-146/48-86 96-98 Intake & Output 05/12/19 05/13/19 05/14/19 05/15/19 23:59 23:59 23:59 23:59 Intake Total 400 1100 1500 825 Output Total 400 650 300 Balance 400 700 850 525 Gen: intubated, sedated Heart: RRR Lung: scattered rhonchi Abd: soft, nontender Ext: no edema CBC, BMP 05/15/19 05:55 05/15/19 05:55 Active Medications Acetaminophen (Ofirmev Injection -) 1,000 mg IVPB Q6H PRN PRN Reason: FEVER Last Admin: 05/15/19 05:46 Dose: 1,000 mg Allopurinol (Zyloprim -) 300 mg PO DAILY [facility] Last Admin: 05/15/19 10:09 Dose: Not Given IV Flush (Angelina-Cath Flush) 10 ml IVPUSH PRN PRN PRN Reason: protocol, maintain patency Last Admin: 05/15/19 05:54 Dose: 10 ml Ertapenem 1 gm/ Sodium (Chloride) 50 mls @ 100 mls/hr IVPB DAILY RYAN Last Admin: 05/15/19 12:23 Dose: 100 mls/hr Daptomycin 300 mg/ Sodium (Chloride) 50 mls @ 50 mls/hr IVPB DAILY@1800 RYAN; Protocol Last Admin: 05/14/19 17:04 Dose: 50 mls/hr Midazolam HCl (Midazolam 100mg/100ml-0.9%Nacl) 100 mg in 100 mls @ 1 mls/hr IVPB TITR RYAN; Protocol Last Admin: 05/15/19 09:50 Dose: 1 mg/hr, 1 mls/hr Sodium Chloride (1/2 Normal Saline) 1,000 mls @ 83 mls/hr IV ASDIR [facility] Lactobacillus Acidophilus (Bacid -) 1 tab PO DAILY [facility] Last Admin: 05/15/19 10:09 Dose: Not Given Lamivudine (Epivir Oral Solution -) 100 mg PO DAILY [facility] Last Admin: 05/15/19 10:09 Dose: Not Given Magnesium Chloride (Slow-Mag -) 64 mg PO DAILY [facility] Last Admin: 05/15/19 10:09 Dose: Not Given Pantoprazole Sodium (Protonix -) 20 mg PO DAILY [facility] Last Admin: 05/15/19 10:09 Dose: Not Given Quetiapine Fumarate (Seroquel -) 12.5 mg PO BID [facility] Last Admin: 05/15/19 10:09 Dose: Not Given Valacyclovir HCl (Valtrex -) 500 mg PO DAILY [facility] Last Admin: 05/15/19 10:09 Dose: Not Given ASSESSMENT AND PLAN: Acute Hypoxic Respiratory Failure Pneumonia likely Aspiration UTI Septic Shock Acute on Chronic Renal Failure AML Thrombocytopenia/Anemia Hypernatremia - continue antibiotics - f/u cultures - send sputum cultures - transfuse platelets - monitor CBC - IVF - titrate pressors to maintain MAP >65 - daily sedation vacations to assess mental status - spontaneous breathing trials as tolerated - DVT/GI prophylaxis - continue ICU montioring - discussed with family at bedside and answered all questions critical care time spent in reviewing chart, evaluating patient and formulating plan 35 min
--- NOTE | 2019-05-15 12:50 | PN ---
Progress Note (short form) - Note Progress Note: Patient seen and examined Events noted Unresponsive; Rapid response- intubation currently on pressors Daughter at bedside Last Vital Signs Temp Pulse Resp BP Pulse Ox 101.1 F H 65 14 85/49 L 98 05/15/19 07:00 05/15/19 12:09 05/15/19 12:16 05/15/19 12:09 05/15/19 09:00 HEENT:?reactivity to pupils; blood in oropharynx Cor: RSR, No murmurs, No gallops Lungs: rhonchi Abd: Soft, Normal bowel sounds, No organomegaly Ext:No significant edema Skin: No rashes, Integument intact,extensive ecchymoses RUE CBC, BMP 05/15/19 05:55 05/15/19 05:55 Current Medications Generic Name Dose Route Start Last Admin Trade Name Freq PRN Reason Stop Dose Admin Acetaminophen 1,000 mg 05/15/19 05:34 05/15/19 05:46 Ofirmev Injection - IVPB 1,000 mg Q6H PRN Administration FEVER Allopurinol 300 mg 05/12/19 10:00 05/15/19 10:09 Zyloprim - PO Not Given DAILY RYAN IV Flush 10 ml 05/14/19 23:31 05/15/19 05:54 Angelina-Cath Flush IVPUSH 10 ml PRN PRN Administration protocol, maintain patency Ertapenem 1 gm/ Sodium 50 mls @ 100 mls/hr 05/09/19 16:30 05/15/19 12:23 Chloride IVPB 100 mls/hr DAILY RYAN Administration Daptomycin 300 mg/ Sodium 50 mls @ 50 mls/hr 05/09/19 18:00 05/14/19 17:04 Chloride IVPB 50 mls/hr DAILY@1800 RYAN Administration Protocol Midazolam HCl 100 mg in 100 mls @ 1 mls/hr 05/15/19 09:45 05/15/19 09:50 Midazolam 100mg/100ml-0.9%Nacl IVPB 1 mg/hr TITR RYAN 1 mls/hr Administration Protocol 1 MG/HR Sodium Chloride 1,000 mls @ 83 mls/hr 05/15/19 12:30 1/2 Normal Saline IV ASDIR RYAN Lactobacillus Acidophilus 1 tab 05/06/19 10:00 05/15/19 10:09 Bacid - PO Not Given DAILY [facility] Lamivudine 100 mg 05/04/19 10:00 05/15/19 10:09 Epivir Oral Solution - PO Not Given DAILY [facility] Magnesium Chloride 64 mg 05/09/19 11:30 05/15/19 10:09 Slow-Mag - PO Not Given DAILY [facility] Pantoprazole Sodium 20 mg 05/04/19 10:00 05/15/19 10:09 Protonix - PO Not Given DAILY [facility] Quetiapine Fumarate 12.5 mg 05/11/19 22:00 05/15/19 10:09 Seroquel - PO Not Given BID [facility] Valacyclovir HCl 500 mg 05/12/19 10:00 05/15/19 10:09 Valtrex - PO Not Given DAILY [facility] Impression Acute respiratory failure AML Ventilator/pressor support History of CLL Fevers- infectious vs neoplastic Obtundation Anemia Thrombocytopenia Hypernatremia Hyperchloremia Plan: Continue ICU/critical care management Continue antibiotics per ID Transfuse platelets When feasible CT head to r/o bleed /stroke Hypotonic solution per renal
--- NOTE | 2019-05-15 12:59 | PN ---
Physical Exam: SUBJECTIVE: Patient seen and examined in AM, RapidResponse called for lethargy and nonresponsiveness. Intubated by anesthesiology OBJECTIVE: Vital Signs Period Temp Pulse Resp BP Sys/Borjas Pulse Ox Last 24 Hr 98.3 F-103.3 F 65-130 14-22 78-146/48-86 96-98 GENERAL: sedated on midazolam, intubated HEAD: NC/AT EYES: sclera anicteric, conjunctiva clear. No ptosis. ENT: Ears normal, nares patent, dried blood in mouth NECK: Trachea midline, full range of motion, supple. LUNGS: Breath sounds equal, mildly coarse bilaterally, no wheezes, no crackles. Vent 400, 14, 5, 50% HEART: Regular rate and rhythm, S1, S2 without murmur, rub or gallop. Right upper chest with chemoport ABDOMEN: Soft, nontender, nondistended, normoactive bowel sounds, no guarding, no rebound. EXTREMITIES: 2+ pulses, warm, well-perfused, no edema. NEUROLOGICAL: lethargic on sedation SKIN: Warm, dry, normal turgor, no rashes or lesions noted Laboratory Results - last 24 hr 05/14/19 05/14/19 05/15/19 21:40 21:40 05:55 WBC 23.1 H RBC 2.89 L Hgb 8.5 L Hct 26.4 L MCV 91.4 MCH 29.4 MCHC 32.1 RDW 16.4 H Plt Count 9 L* D MPV 8.9 D Absolute Neuts (auto) 13.2 H Neutrophils % 57.2 Neutrophils % (Manual) 47.4 Band Neutrophils % 2.1 Lymphocytes % 12.5 Lymphocytes % (Manual) 6.3 L D Monocytes % 25.8 H Monocytes % (Manual) 24 H Eosinophils % 0.9 Eosinophils % (Manual) 1.0 Basophils % 3.6 H D Basophils % (Manual) 0.0 Myelocytes % (Man) 5 H Promyelocytes % (Man) 0 Blast Cells % (Manual) 4 H Nucleated RBC % 0 Metamyelocytes 6 H D Hypochromia 1+ Platelet Estimate Decreased Polychromasia 0 Poikilocytosis 0 Anisocytosis 1+ Microcytosis 1+ Macrocytosis 0 Anticoagulation Therapy Puncture Site ABG pH ABG pCO2 at Pt Temp ABG pO2 at Pt Temp ABG HCO3 ABG O2 Sat (Measured) ABG O2 Content ABG Base Excess Jerardo Test O2 Delivery Device Oxygen Flow Rate Vent Mode Vent Rate Mechanical Rate PEEP Pressure Support Vent Sodium Potassium Chloride Carbon Dioxide Anion Gap BUN Creatinine Est GFR (CKD-EPI)AfAm Est GFR (CKD-EPI)NonAf POC Glucometer Random Glucose Calcium Total Bilirubin AST ALT Alkaline Phosphatase Total Protein Albumin Urine Color Yellow Urine Appearance Turbid Urine pH 5.0 Ur Specific Lenox 1.019 Urine Protein 1+ H Urine Glucose (UA) Negative Urine Ketones Negative Urine Blood 3+ H Urine Nitrite Negative Urine Bilirubin Negative Urine Urobilinogen 0.2 Ur Leukocyte Esterase 1+ H Urine WBC (Auto) 34 Urine RBC (Auto) 88 Urine Casts (Auto) 76 U Pathogenic Cast Auto Moderate U Epithel Cells (Auto) 16.8 Urine Bacteria (Auto) Few Urine Yeast (Auto) None seen Ur Random Creatinine 70.0 Ur Random Sodium 34 L 05/15/19 05/15/19 05/15/19 05:55 07:35 10:50 WBC RBC Hgb Hct MCV MCH MCHC RDW Plt Count MPV Absolute Neuts (auto) Neutrophils % Neutrophils % (Manual) Band Neutrophils % Lymphocytes % Lymphocytes % (Manual) Monocytes % Monocytes % (Manual) Eosinophils % Eosinophils % (Manual) Basophils % Basophils % (Manual) Myelocytes % (Man) Promyelocytes % (Man) Blast Cells % (Manual) Nucleated RBC % Metamyelocytes Hypochromia Platelet Estimate Polychromasia Poikilocytosis Anisocytosis Microcytosis Macrocytosis Anticoagulation Therapy No Result Required. Puncture Site Right radial ABG pH 7.34 L ABG pCO2 at Pt Temp 46.4 H ABG pO2 at Pt Temp 135 H ABG HCO3 24.2 ABG O2 Sat (Measured) 98.7 H ABG O2 Content 9.8 ABG Base Excess -1.0 Jerardo Test Positive O2 Delivery Device No Result Required. Oxygen Flow Rate 50 Vent Mode A/c Vent Rate 14 Mechanical Rate No Result Required. PEEP 5.0 Pressure Support Vent 400 Sodium 149 H Potassium 4.9 Chloride 116 H Carbon Dioxide 31 Anion Gap 3 L BUN 39.9 H Creatinine 1.8 H Est GFR (CKD-EPI)AfAm 31.80 Est GFR (CKD-EPI)NonAf 27.44 POC Glucometer 139 Random Glucose 126 H Calcium 9.6 Total Bilirubin 0.5 AST 72 H ALT 28 Alkaline Phosphatase 104 Total Protein 6.2 L Albumin 2.9 L Urine Color Urine Appearance Urine pH Ur Specific Lenox Urine Protein Urine Glucose (UA) Urine Ketones Urine Blood Urine Nitrite Urine Bilirubin Urine Urobilinogen Ur Leukocyte Esterase Urine WBC (Auto) Urine RBC (Auto) Urine Casts (Auto) U Pathogenic Cast Auto U Epithel Cells (Auto) Urine Bacteria (Auto) Urine Yeast (Auto) Ur Random Creatinine Ur Random Sodium Active Medications Generic Name Dose Route Start Last Admin Trade Name Freq PRN Reason Stop Dose Admin Acetaminophen 1,000 mg 05/15/19 05:34 05/15/19 05:46 Ofirmev Injection - IVPB 1,000 mg Q6H PRN Administration FEVER Allopurinol 300 mg 05/12/19 10:00 05/15/19 10:09 Zyloprim - PO Not Given DAILY RYAN IV Flush 10 ml 05/14/19 23:31 05/15/19 05:54 Angelina-Cath Flush IVPUSH 10 ml PRN PRN Administration protocol, maintain patency Ertapenem 1 gm/ Sodium 50 mls @ 100 mls/hr 05/09/19 16:30 05/15/19 12:23 Chloride IVPB 100 mls/hr DAILY RYAN Administration Daptomycin 300 mg/ Sodium 50 mls @ 50 mls/hr 05/09/19 18:00 05/14/19 17:04 Chloride IVPB 50 mls/hr DAILY@1800 RYAN Administration Protocol Midazolam HCl 100 mg in 100 mls @ 1 mls/hr 05/15/19 09:45 05/15/19 09:50 Midazolam 100mg/100ml-0.9%Nacl IVPB 1 mg/hr TITR RYAN 1 mls/hr Administration Protocol 1 MG/HR Sodium Chloride 1,000 mls @ 83 mls/hr 05/15/19 12:30 1/2 Normal Saline IV ASDIR RYAN Lactobacillus Acidophilus 1 tab 05/06/19 10:00 05/15/19 10:09 Bacid - PO Not Given DAILY RYAN Lamivudine 100 mg 05/04/19 10:00 05/15/19 10:09 Epivir Oral Solution - PO Not Given DAILY RYAN Magnesium Chloride 64 mg 05/09/19 11:30 05/15/19 10:09 Slow-Mag - PO Not Given DAILY [facility] BEDS AT [facility] Pantoprazole Sodium 20 mg 05/04/19 10:00 05/15/19 10:09 Protonix - PO Not Given DAILY COUNTS INCLUDE 234 BEDS AT THE [facility] Quetiapine Fumarate 12.5 mg 05/11/19 22:00 05/15/19 10:09 Seroquel - PO Not Given BID COUNTS [facility]CLUDE 234 BEDS AT THE [facility] Valacyclovir HCl 500 mg 05/12/19 10:00 05/15/19 10:09 Valtrex - PO Not Given DAILY [facility]S INCLUDE 234 BEDS AT THE [facility] ASSESSMENT/PLAN: 73F w/ pmh of HTN, HLD, CHF, HFpEF, dementia, HBV, MDS, CLL --> AML presented from Rehab facility with complaint of fever; admitted to [facility] for ARF and severe anemia. Fevers thought 2/2 to infections vs AML-related. UCX grew citrobacter and E faecalis, BCX grew staph. Recurrent fevers; on daptomycin, ertapenem, lamivudine, valacyclovir. Intubated on due to lethargy with inability to protect airway. NEURO # Lethargy --likely 2/2 sepsis and hospital benzodiazapenes # Dementia > CTH --pending to r/o stroke - IV abx for sepsis - sedated on Midazolam CARDIO # HFpEF --not in excerbation # Hypotension > EKG(05/03/19): NSR, QTc 427 - peripheral Phenylephrine to maintain MAP>65 - may need to infuse pressors through Chemoport RESPIR # Intubated - Vent 400ml, 14, PEEP 5, 50% GI # h/o Hep A --not an active issue > Hep A Ab(02/18/2018) - NPO RENAL #EBER > Cr(baseline ~1): 1.8 - Nephro([facility]) consulted: --likely EBER 2/2 sepsis --1/2 NS - gentle IVF ID/HEME # Sepsis 2/2 to UTI with bacteremia, high fevers # Thrombocytopenia # Anemia # AML # recurrent fevers --likely 2/2 to infection and AML > BCX(05/03/19): Staph Auricularis, Staphy Epidermidis, Staph Coag > UCX(05/03, 05/04): ESBL Ecoli, E Faecalis; Citrobacter > repeat BCX, UCX, UA, Sputum Cx --pending - abx regimen: Ertapenem - platelet transfusions x3 - pRBC as need to keep Hgb >7 FEN - 1/2 NS @83 - NPO PPX - pantoprazole - SCDs as pt has low plt Visit type - Emergency Visit Emergency Visit: No - New Patient This patient is new to me today: Yes Date on this admission: 05/15/19 - Critical Care Critical Care patient: Yes Total Critical Care Time (in minutes): 35 Critical Care Statement: The care of this patient involved high complexity decision making to prevent further life threatening deterioration of the patient 's condition and/or to evaluate & treat vital organ system(s) failure or risk of failure. ATTENDING PHYSICIAN STATEMENT I saw and evaluated the patient. I reviewed the resident's note and discussed the case with the resident. I agree with the resident's findings and plan as documented. SUBJECTIVE: OBJECTIVE: ASSESSMENT AND PLAN:
--- NOTE | 2019-05-15 14:50 | PN ---
Progress Note, Physician History of Present Illness: EVENTS NOTED DEVELOPED ACUTE RESP FAILURE NOW INTUBATED IN ICU REMAINS FEBRILE WBC 23K WITH BLASTS THROMBOCYTOPENIC AZOTEMIA - Current Medication List Current Medications: Active Medications Acetaminophen (Ofirmev Injection -) 1,000 mg IVPB Q6H PRN PRN Reason: FEVER Last Admin: 05/15/19 05:46 Dose: 1,000 mg Allopurinol (Zyloprim -) 300 mg PO DAILY [facility] Last Admin: 05/15/19 10:09 Dose: Not Given IV Flush (Angelina-Cath Flush) 10 ml IVPUSH PRN PRN PRN Reason: protocol, maintain patency Last Admin: 05/15/19 05:54 Dose: 10 ml Ertapenem 1 gm/ Sodium (Chloride) 50 mls @ 100 mls/hr IVPB DAILY [facility] Last Admin: 05/15/19 12:23 Dose: 100 mls/hr Daptomycin 300 mg/ Sodium (Chloride) 50 mls @ 50 mls/hr IVPB DAILY@1800 [facility]; Protocol Last Admin: 05/14/19 17:04 Dose: 50 mls/hr Midazolam HCl (Midazolam 100mg/100ml-0.9%Nacl) 100 mg in 100 mls @ 1 mls/hr IVPB TITR [facility]; Protocol Last Admin: 05/15/19 09:50 Dose: 1 mg/hr, 1 mls/hr Sodium Chloride (1/2 Normal Saline) 1,000 mls @ 83 mls/hr IV ASDIR [facility] Lactobacillus Acidophilus (Bacid -) 1 tab PO DAILY [facility] Last Admin: 05/15/19 10:09 Dose: Not Given Lamivudine (Epivir Oral Solution -) 100 mg PO DAILY [facility] Last Admin: 05/15/19 10:09 Dose: Not Given Magnesium Chloride (Slow-Mag -) 64 mg PO DAILY [facility] Last Admin: 05/15/19 10:09 Dose: Not Given Pantoprazole Sodium (Protonix -) 20 mg PO DAILY [facility] Last Admin: 05/15/19 10:09 Dose: Not Given Quetiapine Fumarate (Seroquel -) 12.5 mg PO BID [facility] Last Admin: 05/15/19 10:09 Dose: Not Given Valacyclovir HCl (Valtrex -) 500 mg PO DAILY [facility] Last Admin: 05/15/19 10:09 Dose: Not Given - Objective Vital Signs: Vital Signs Temperature 101.1 F H 05/15/19 07:00 Pulse Rate 65 05/15/19 12:09 Respiratory Rate 14 05/15/19 12:16 Blood Pressure 85/49 L 05/15/19 12:09 O2 Sat by Pulse Oximetry (%) 98 05/15/19 09:00 Constitutional: Yes: No Distress Eyes: Yes: Conjunctiva Clear Cardiovascular: Yes: Regular Rate and Rhythm, S1, S2 Respiratory: Yes: Mechanically Ventilated Gastrointestinal: Yes: Normal Bowel Sounds, Soft Edema: No Labs: CBC, BMP 05/15/19 05:55 05/15/19 05:55 INR, PTT INR 1.18 (0.83-1.09) H 05/03/19 23:20 Assessment/Plan ACUTE RESP FAILURE FEVER AML LEUKOCYTOSIS WITH BLASTS ? SEPSIS ? ACUTE LEUKEMIA ALTERED MENTAL STATUS R/O CVA THROMBOCYTOPENIA REPEAT BC NO GROWTH RECURRENT UTI HX ESBL AZOTEMIA VANCOMYCIN ALLERGY REPEAT CULTURES NO GROWTH CONTINUE EMPIRIC ERTAPENEM/ DAPTO (VANCOMYCIN ALLERGY) VENTILATORY SUPPORT PROGNOSIS POOR
[2019-05-15 15:17] LABS: BASO % 0.5 % (0-2.0); EOS % 0.8 % (0-4.5); HEMATOCRIT 20.2 % (32.4-45.2); LYMPH % 13.7 % (8-40); MCH 29.2 pg (25.7-33.7); MCHC 32.5 g/dl (32.0-36.0); MEAN PLT VOLUME 7.7 fl (7.5-11.1); MONO % 35.9 % (3.8-10.2); NEUT % 49.1 % (42.8-82.8); PLATELET COUNT 56 K/MM3 (134-434); RBC 2.25 M/mm3 (3.60-5.2); RDW 16.4 % (11.6-15.6); WHITE BLOOD COUNT 21.2 K/mm3 (4.0-10.0)
[2019-05-15 15:25] LABS: HEMOGLOBIN 6.6 GM/dL (10.7-15.3)
[2019-05-15] MEDS ORDERED: PT OWN MED DRAWER 7, Y5N ONE (17:36)
[2019-05-15 18:22] LABS: ANISOCYTOSIS 2+
[2019-05-15 19:08] LABS: EPI CELLS 5.3 /HPF (0-5/HPF); HYALINE CASTS 29 /lpf (0-8); URINE APPEARANCE TURBID; URINE BILIRUBIN NEGATIVE (NEGATIVE); URINE COLOR YELLOW; URINE GLUCOSE (UA) NEGATIVE (NEGATIVE); URINE KETONE TRACE (NEGATIVE); URINE LEUK ESTERASE TRACE (NEGATIVE); URINE NITRITE NEGATIVE (NEGATIVE); URINE PROTEIN 2+ (NEGATIVE); URINE RBC 58 /hpf (0-4); URINE UROBILINOGEN 0.2 mg/dL (0.2-1.0); URINE WBC 17 /hpf (0-5)
[2019-05-15] MEDS: DAPTOMYCIN 300 MG in SODIUM CHLORIDE 50 ML IVPB SCH (19:44)
[2019-05-16 03:26] LABS: HEMATOCRIT 29.3 % (32.4-45.2); MCH 30.2 pg (25.7-33.7); MCHC 33.9 g/dl (32.0-36.0); MEAN CELL VOLUME 89.1 fl (80-96); MEAN PLT VOLUME 8.1 fl (7.5-11.1); RBC 3.29 M/mm3 (3.60-5.2); RDW 15.8 % (11.6-15.6); WHITE BLOOD COUNT 14.2 K/mm3 (4.0-10.0)
[2019-05-16 03:36] LABS: PLATELET COUNT 25 K/MM3 (134-434)
[2019-05-16 06:15] LABS: BASO % 0.6 % (0-2.0); EOS % 1.9 % (0-4.5); HEMOGLOBIN 9.9 GM/dL (10.7-15.3); LYMPH % 18.6 % (8-40); MCHC 34.2 g/dl (32.0-36.0); MEAN CELL VOLUME 87.9 fl (80-96); MONO % 31.3 % (3.8-10.2); NEUT % 47.6 % (42.8-82.8); WHITE BLOOD COUNT 12.4 K/mm3 (4.0-10.0)
[2019-05-16 07:08] LABS: ALBUMIN 2.6 g/dl (3.4-5.0); BILIRUBIN,TOTAL 0.5 mg/dL (0.2-1); BLOOD UREA NITROGEN 60.6 mg/dL (7-18); CREATININE 2.3 mg/dL (0.55-1.3); MAGNESIUM 2.6 mg/dL (1.8-2.4); PHOSPHOROUS 3.1 mg/dL (2.5-4.9); POTASSIUM 4.5 mmol/L (3.5-5.1); TOT PROT 5.4 g/dl (6.4-8.2)
[2019-05-16] MEDS: ALLOPURINOL 300 MG TABLET (FP) PO SCH (10:00)
--- NOTE | 2019-05-16 10:00 | PN ---
Progress Note, Physician History of Present Illness: Pt is admitted to ICU, intubated, sedated (on Midazolam). - Current Medication List Current Medications: Active Medications Acetaminophen (Ofirmev Injection -) 1,000 mg IVPB Q6H PRN PRN Reason: FEVER Last Admin: 05/15/19 05:46 Dose: 1,000 mg Allopurinol (Zyloprim -) 300 mg PO DAILY [facility] Last Admin: 05/15/19 10:09 Dose: Not Given IV Flush (Angelina-Cath Flush) 10 ml IVPUSH PRN PRN PRN Reason: protocol, maintain patency Last Admin: 05/15/19 05:54 Dose: 10 ml Ertapenem 1 gm/ Sodium (Chloride) 50 mls @ 100 mls/hr IVPB DAILY [facility] Last Admin: 05/15/19 12:23 Dose: 100 mls/hr Daptomycin 300 mg/ Sodium (Chloride) 50 mls @ 50 mls/hr IVPB DAILY@1800 [facility]; Protocol Last Admin: 05/15/19 19:44 Dose: 50 mls/hr Midazolam HCl (Midazolam 100mg/100ml-0.9%Nacl) 100 mg in 100 mls @ 1 mls/hr IVPB TITR [facility]; Protocol Last Admin: 05/15/19 09:50 Dose: 1 mg/hr, 1 mls/hr Sodium Chloride (1/2 Normal Saline) 1,000 mls @ 83 mls/hr IV ASDIR [facility] Last Admin: 05/15/19 12:00 Dose: 83 mls/hr Phenylephrine HCl 20,000 mcg/ (Sodium Chloride) 250 mls @ 75 mls/hr IVPB ASDIR [facility]; Protocol Last Titration: 05/16/19 02:14 Dose: 0 mcg/min, 0 mls/hr Lactobacillus Acidophilus (Bacid -) 1 tab PO DAILY [facility] Last Admin: 05/15/19 10:09 Dose: Not Given Lamivudine (Epivir Oral Solution -) 100 mg PO DAILY [facility] Last Admin: 05/15/19 10:09 Dose: Not Given Magnesium Chloride (Slow-Mag -) 64 mg PO DAILY [facility] Last Admin: 05/15/19 10:09 Dose: Not Given Pantoprazole Sodium (Protonix -) 20 mg PO DAILY [facility] Last Admin: 05/15/19 10:09 Dose: Not Given Quetiapine Fumarate (Seroquel -) 12.5 mg PO BID [facility] Last Admin: 05/15/19 22:49 Dose: Not Given Valacyclovir HCl (Valtrex -) 500 mg PO DAILY [facility] Last Admin: 05/15/19 10:09 Dose: Not Given - Objective Vital Signs: Vital Signs Temperature 98.2 F 05/15/19 22:00 Pulse Rate 56 L 05/15/19 22:00 Respiratory Rate 14 05/16/19 09:00 Blood Pressure 119/59 L 05/15/19 22:00 O2 Sat by Pulse Oximetry (%) 98 05/16/19 01:03 Constitutional: Yes: No Distress, Calm Cardiovascular: Yes: Regular Rate and Rhythm, S1, S2 Respiratory: Yes: Regular, CTA Bilaterally. No: Rales Gastrointestinal: Yes: Normal Bowel Sounds, Soft. No: Tenderness Edema: No Labs: CBC, BMP 05/16/19 05:27 05/16/19 05:27 INR, PTT INR 1.18 (0.83-1.09) H 05/03/19 23:20 - ....Imaging Chest X-ray: Report Reviewed Problem List - Problems (1) AML (acute myeloblastic leukemia) Code(s): C92.00 - ACUTE MYELOBLASTIC LEUKEMIA, NOT HAVING ACHIEVED REMISSION (2) Fever Code(s): R50.9 - FEVER, UNSPECIFIED Qualifiers: Fever type: unspecified Qualified Code(s): R50.9 - Fever, unspecified (3) UTI (urinary tract infection) Code(s): N39.0 - URINARY TRACT INFECTION, SITE NOT SPECIFIED Qualifiers: Urinary tract infection type: acute cystitis Hematuria presence: without hematuria Qualified Code(s): N30.00 - Acute cystitis without hematuria (4) Anemia Code(s): D64.9 - ANEMIA, UNSPECIFIED Qualifiers: Anemia type: unspecified type Qualified Code(s): D64.9 - Anemia, unspecified (5) Thrombocytopenia Code(s): D69.6 - THROMBOCYTOPENIA, UNSPECIFIED (6) EBER (acute kidney injury) Code(s): N17.9 - ACUTE KIDNEY FAILURE, UNSPECIFIED (7) Hypernatremia Code(s): E87.0 - HYPEROSMOLALITY AND HYPERNATREMIA (8) Acute respiratory failure Code(s): J96.00 - ACUTE RESPIRATORY FAILURE, UNSP W HYPOXIA OR HYPERCAPNIA (9) Septic shock Code(s): A41.9 - SEPSIS, UNSPECIFIED ORGANISM; R65.21 - SEVERE SEPSIS WITH SEPTIC SHOCK Assessment/Plan Admitted to ICU Off Pressors on IV sedation on IV abtx. IVF (1/2 NS); creatinine is worse today. S/p PRBC Tx. S/p Plts Tx CCM, Heme, Renal, ID consults and f/u are appreciated. Pt's case was d/w Dr Cardona. AM labs. Time spent for coordination of care: over 35 minutes Prognosis: poor.
--- NOTE | 2019-05-16 10:07 | PN ---
Progress Note, Physician Chief Complaint: The patient remains in the ICU, intubated and sedated. Henley catheter draining dark yellow urine. Blood pressure in acceptable range on pressors. Noted that she is getting normal saline infusion as well as half-normal saline infusion. History of Present Illness: This is a 73-year-old female with history of chronic kidney disease stage III, CLL, CHF, hypertension, unilateral hydronephrosis who presented to the emergency room with fever and acute kidney injury. The patient has remained intubated and hypotensive. She was started on intravenous fluids as well as pressor agents. The blood pressure has improved. - Current Medication List Current Medications: Active Medications Acetaminophen (Ofirmev Injection -) 1,000 mg IVPB Q6H PRN PRN Reason: FEVER Last Admin: 05/15/19 05:46 Dose: 1,000 mg Allopurinol (Zyloprim -) 300 mg PO DAILY [facility] Last Admin: 05/15/19 10:09 Dose: Not Given IV Flush (Angelina-Cath Flush) 10 ml IVPUSH PRN PRN PRN Reason: protocol, maintain patency Last Admin: 05/15/19 05:54 Dose: 10 ml Ertapenem 1 gm/ Sodium (Chloride) 50 mls @ 100 mls/hr IVPB DAILY [facility] Last Admin: 05/15/19 12:23 Dose: 100 mls/hr Daptomycin 300 mg/ Sodium (Chloride) 50 mls @ 50 mls/hr IVPB DAILY@1800 [facility]; Protocol Last Admin: 05/15/19 19:44 Dose: 50 mls/hr Midazolam HCl (Midazolam 100mg/100ml-0.9%Nacl) 100 mg in 100 mls @ 1 mls/hr IVPB TITR [facility]; Protocol Last Admin: 05/15/19 09:50 Dose: 1 mg/hr, 1 mls/hr Sodium Chloride (1/2 Normal Saline) 1,000 mls @ 83 mls/hr IV ASDIR [facility] Last Admin: 05/15/19 12:00 Dose: 83 mls/hr Phenylephrine HCl 20,000 mcg/ (Sodium Chloride) 250 mls @ 75 mls/hr IVPB ASDIR [facility]; Protocol Last Titration: 05/16/19 02:14 Dose: 0 mcg/min, 0 mls/hr Lactobacillus Acidophilus (Bacid -) 1 tab PO DAILY [facility] Last Admin: 05/15/19 10:09 Dose: Not Given Lamivudine (Epivir Oral Solution -) 100 mg PO DAILY [facility] Last Admin: 05/15/19 10:09 Dose: Not Given Magnesium Chloride (Slow-Mag -) 64 mg PO DAILY [facility] Last Admin: 05/15/19 10:09 Dose: Not Given Pantoprazole Sodium (Protonix -) 20 mg PO DAILY [facility] Last Admin: 05/15/19 10:09 Dose: Not Given Quetiapine Fumarate (Seroquel -) 12.5 mg PO BID [facility] Last Admin: 05/15/19 22:49 Dose: Not Given Valacyclovir HCl (Valtrex -) 500 mg PO DAILY [facility] Last Admin: 05/15/19 10:09 Dose: Not Given - Objective Vital Signs: Vital Signs Temperature 98.2 F 05/15/19 22:00 Pulse Rate 56 L 05/15/19 22:00 Respiratory Rate 14 05/16/19 09:00 Blood Pressure 119/59 L 05/15/19 22:00 O2 Sat by Pulse Oximetry (%) 98 05/16/19 01:03 Constitutional: Yes: No Distress Eyes: Yes: Conjunctiva Clear HENT: Yes: Normocephalic Neck: Yes: Supple Cardiovascular: Yes: Regular Rate and Rhythm, S1, S2 Respiratory: Yes: Regular, Mechanically Ventilated, Rhonchi Gastrointestinal: Yes: Normal Bowel Sounds, Soft Edema: No Neurological: Yes: Unresponsive Labs: CBC, BMP 05/16/19 05:27 05/16/19 05:27 INR, PTT INR 1.18 (0.83-1.09) H 05/03/19 23:20 Problem List - Problems (1) EBER (acute kidney injury) Code(s): N17.9 - ACUTE KIDNEY FAILURE, UNSPECIFIED (2) Anemia requiring transfusions Code(s): D64.9 - ANEMIA, UNSPECIFIED (3) UTI (urinary tract infection) Code(s): N39.0 - URINARY TRACT INFECTION, SITE NOT SPECIFIED Qualifiers: Urinary tract infection type: acute cystitis Hematuria presence: without hematuria Qualified Code(s): N30.00 - Acute cystitis without hematuria (4) CKD (chronic kidney disease) Code(s): N18.9 - CHRONIC KIDNEY DISEASE, UNSPECIFIED (5) CLL (chronic lymphocytic leukemia) Code(s): C91.10 - CHRONIC LYMPHOCYTIC LEUK OF B-CELL TYPE NOT ACHIEVE REMIS (6) Hepatitis B Code(s): B19.10 - UNSPECIFIED VIRAL HEPATITIS B WITHOUT HEPATIC COMA (7) Hydronephrosis Code(s): N13.30 - UNSPECIFIED HYDRONEPHROSIS Assessment/Plan This is a 73-year-old female with acute respiratory failure, on ventilator support. The patient is hypotensive and required pressor support to maintain hemodynamic stability The patient is in acute kidney injury with progressive worsening of azotemia. There is fair amount of urine in the Henley bag. The patient remains sedated and unresponsive. Serum sodium is worsening probably related to multifactorial etiology. In addition to normal saline infusion, the fact that the patient has irregular fevers with increased insensible water losses cannot be totally ignored as etiology factor in hypernatremia. Will discontinue the normal saline infusion. We will continue the 1/2 Normal saline as ordered. We will continue to monitor the renal and the electrolyte profile.
[2019-05-16] MEDS: ERTAPENEM SODIUM 1 GM in SODIUM CHLORIDE 50 ML IVPB SCH (10:30)
[2019-05-16] MEDS: LACTOBACILLUS ACIDOPHILUS 1 TABLET PO SCH (10:50)
[2019-05-16] MEDS: lamiVUDine 10 MG/1 ML BULK BOTTLE PO SCH (10:50)
[2019-05-16] MEDS: PHENYLEPHRINE HCL 20,000 MCG in SODIUM CHLORIDE 248 ML IVPB SCH (10:50)
[2019-05-16] MEDS: PANTOPRAZOLE 20 MG TABLET PO SCH (10:51)
[2019-05-16] MEDS: QUEtiapine FUMARATE 25 MG TABLET PO SCH ×2 (10:51→21:45)
[2019-05-16] MEDS: MAGNESIUM CL 64 MG TABLET.SA PO SCH (10:52)
[2019-05-16] MEDS: valACYclovir HCL 500 MG TABLET (FP) PO SCH (10:55)
--- NOTE | 2019-05-16 11:47 | PN ---
Physical Exam: SUBJECTIVE: Patient seen and examined No acute events since ICU admission. Sedated. OBJECTIVE: Vital Signs Period Temp Pulse Resp BP Sys/Borjas Pulse Ox Last 24 Hr 98.2 F-99.2 F 56-66 14-16 85-124/49-61 98 GENERAL: sedated on midazolam, intubated HEAD: NC/AT EYES: sclera anicteric, conjunctiva clear. No ptosis. ENT: Ears normal, nares patent, dried blood in mouth NECK: Trachea midline, full range of motion, supple. LUNGS: Breath sounds equal, mildly coarse bilaterally, no wheezes, no crackles. Vent 400, 14, 5, 50% HEART: Regular rate and rhythm, S1, S2 without murmur, rub or gallop. Right upper chest with chemoport ABDOMEN: Soft, nontender, nondistended, normoactive bowel sounds, no guarding, no rebound. EXTREMITIES: 2+ pulses, warm, well-perfused, no edema. NEUROLOGICAL: lethargic on sedation SKIN: Warm, dry, normal turgor, no rashes or lesions noted Laboratory Results - last 24 hr 05/14/19 05/15/19 05/15/19 09:35 15:00 16:00 WBC 21.2 H RBC 2.25 L Hgb 6.6 L* Hct 20.2 L D MCV 90.0 MCH 29.2 MCHC 32.5 RDW 16.4 H Plt Count 56 L D MPV 7.7 D Absolute Neuts (auto) 10.4 H Total Counted 100 Neutrophils % 49.1 Neutrophils % (Manual) 23.0 L Lymphocytes % 13.7 Lymphocytes % (Manual) 16.0 D Monocytes % 35.9 H Monocytes % (Manual) 2 L D Eosinophils % 0.8 Basophils % 0.5 Promyelocytes % (Man) 12 H D Blast Cells % (Manual) 33 H D Nucleated RBC % 0 Metamyelocytes 12 H D Platelet Comment Anisocytosis 2+ Microcytosis 2+ Sodium Potassium Chloride Carbon Dioxide Anion Gap BUN Creatinine Est GFR (CKD-EPI)AfAm Est GFR (CKD-EPI)NonAf Random Glucose Calcium Phosphorus Magnesium Total Bilirubin AST ALT Alkaline Phosphatase Total Protein Albumin Urine Color Urine Appearance Urine pH Ur Specific [place] Urine Protein Urine Glucose (UA) Urine Ketones Urine Blood Urine Nitrite Urine Bilirubin Urine Urobilinogen Ur Leukocyte Esterase Urine WBC (Auto) Urine RBC (Auto) Urine Casts (Auto) U Pathogenic Cast Auto U Epithel Cells (Auto) Anti-A Titer Cancelled Blood Type Cancelled O NEGATIVE Antibody Screen Cancelled Negative Crossmatch See Detail See Detail 05/15/19 05/16/19 05/16/19 18:30 02:46 05:27 WBC 14.2 H 12.4 H RBC 3.29 L 3.30 L Hgb 10.0 L 9.9 L Hct 29.3 L D 29.0 L MCV 89.1 87.9 MCH 30.2 30.0 MCHC 33.9 34.2 RDW 15.8 H 16.0 H Plt Count 25 L* D 24 L* MPV 8.1 8.4 Absolute Neuts (auto) 5.9 Total Counted Neutrophils % 47.6 Neutrophils % (Manual) Lymphocytes % 18.6 D Lymphocytes % (Manual) Monocytes % 31.3 H Monocytes % (Manual) Eosinophils % 1.9 D Basophils % 0.6 Promyelocytes % (Man) Blast Cells % (Manual) Nucleated RBC % 0 Metamyelocytes Platelet Comment Anisocytosis Microcytosis Sodium Potassium Chloride Carbon Dioxide Anion Gap BUN Creatinine Est GFR (CKD-EPI)AfAm Est GFR (CKD-EPI)NonAf Random Glucose Calcium Phosphorus Magnesium Total Bilirubin AST ALT Alkaline Phosphatase Total Protein Albumin Urine Color Yellow Urine Appearance Turbid Urine pH 5.0 Ur Specific [place] 1.022 Urine Protein 2+ H Urine Glucose (UA) Negative Urine Ketones Trace H Urine Blood 3+ H Urine Nitrite Negative Urine Bilirubin Negative Urine Urobilinogen 0.2 Ur Leukocyte Esterase Trace Urine WBC (Auto) 17 Urine RBC (Auto) 58 Urine Casts (Auto) 29 U Pathogenic Cast Auto None U Epithel Cells (Auto) 5.3 Anti-A Titer Blood Type Antibody Screen Crossmatch 05/16/19 05:27 WBC RBC Hgb Hct MCV MCH MCHC RDW Plt Count MPV Absolute Neuts (auto) Total Counted Neutrophils % Neutrophils % (Manual) Lymphocytes % Lymphocytes % (Manual) Monocytes % Monocytes % (Manual) Eosinophils % Basophils % Promyelocytes % (Man) Blast Cells % (Manual) Nucleated RBC % Metamyelocytes Platelet Comment Anisocytosis Microcytosis Sodium 151 H Potassium 4.5 Chloride 120 H Carbon Dioxide 25 Anion Gap 6 L BUN 60.6 H Creatinine 2.3 H Est GFR (CKD-EPI)AfAm 23.64 Est GFR (CKD-EPI)NonAf 20.40 Random Glucose 110 H Calcium 9.0 Phosphorus 3.1 Magnesium 2.6 H Total Bilirubin 0.5 AST 100 H ALT 50 Alkaline Phosphatase 161 H Total Protein 5.4 L Albumin 2.6 L Urine Color Urine Appearance Urine pH Ur Specific [place] Urine Protein Urine Glucose (UA) Urine Ketones Urine Blood Urine Nitrite Urine Bilirubin Urine Urobilinogen Ur Leukocyte Esterase Urine WBC (Auto) Urine RBC (Auto) Urine Casts (Auto) U Pathogenic Cast Auto U Epithel Cells (Auto) Anti-A Titer Blood Type Antibody Screen Crossmatch Active Medications Generic Name Dose Route Start Last Admin Trade Name Freq PRN Reason Stop Dose Admin Acetaminophen 1,000 mg 05/15/19 05:34 05/15/19 05:46 Ofirmev Injection - IVPB 1,000 mg Q6H PRN Administration FEVER Allopurinol 300 mg 05/12/19 10:00 05/15/19 10:09 Zyloprim - PO Not Given DAILY [facility] IV Flush 10 ml 05/14/19 23:31 05/15/19 05:54 Angelina-Cath Flush IVPUSH 10 ml PRN PRN Administration protocol, maintain patency Ertapenem 1 gm/ Sodium 50 mls @ 100 mls/hr 05/09/19 16:30 05/15/19 12:23 Chloride IVPB 100 mls/hr DAILY [facility] Administration Daptomycin 300 mg/ Sodium 50 mls @ 50 mls/hr 05/09/19 18:00 05/15/19 19:44 Chloride IVPB 50 mls/hr DAILY@1800 [facility] Administration Protocol Midazolam HCl 100 mg in 100 mls @ 1 mls/hr 05/15/19 09:45 05/15/19 09:50 Midazolam 100mg/100ml-0.9%Nacl IVPB 1 mg/hr TITR [facility] 1 mls/hr Administration Protocol 1 MG/HR Sodium Chloride 1,000 mls @ 83 mls/hr 05/15/19 12:30 05/15/19 12:00 1/2 Normal Saline IV 83 mls/hr ASDIR [facility] Administration Phenylephrine HCl 20,000 mcg/ 250 mls @ 75 mls/hr 05/15/19 07:30 05/16/19 10: 50 Sodium Chloride IVPB Not Given ASDIR [facility] Protocol 100 MCG/MIN Lactobacillus Acidophilus 1 tab 05/06/19 10:00 02/18/20 10:50 Bacid - PO Not Given DAILY [facility] Lamivudine 100 mg 05/04/19 10:00 05/16/19 10:50 Epivir Oral Solution - PO Not Given DAILY [facility] Magnesium Chloride 64 mg 05/09/19 11:30 05/16/19 10:52 Slow-Mag - PO Not Given DAILY [facility] Pantoprazole Sodium 20 mg 05/04/19 10:00 05/16/19 10:51 Protonix - PO Not Given DAILY [facility] Quetiapine Fumarate 12.5 mg 05/11/19 22:00 05/16/19 10:51 Seroquel - PO Not Given BID [facility] Valacyclovir HCl 500 mg 05/12/19 10:00 05/16/19 10:55 Valtrex - PO Not Given DAILY [facility] ASSESSMENT/PLAN: 73F w/ pmh of HTN, HLD, CHF, HFpEF, dementia, HBV, MDS, CLL --> AML presented from Rehab facility with complaint of fever; admitted to [facility] for ARF and severe anemia. Fevers thought 2/2 to infections vs AML-related. UCX grew citrobacter and E faecalis, BCX grew staph. Recurrent fevers; on daptomycin, ertapenem, lamivudine, valacyclovir. Intubated on due to lethargy with inability to protect airway. NEURO # Lethargy --likely 2/2 sepsis and hospital benzodiazapenes # Dementia > CTH --pending to r/o intracranial process - sedated on Midazolam, will wean today CARDIO # HFpEF --not in excerbation > EKG(05/03/19): NSR, QTc 427 - MAPs maintaining 80s; off phenylephrine RESPIR # Intubated - Vent 400ml, 14, PEEP 5, 50% GI - NPO RENAL #EBER > Cr(baseline ~1): 1.8 uptrending to 2.3 today; BUN 40 to 60.6 today - Nephro([facility]) consulted: --likely EBER 2/2 sepsis --will followup recs - continue 1/2 NS ID/HEME # Sepsis 2/2 to UTI with bacteremia, high fevers # Thrombocytopenia # Anemia # AML # recurrent fevers --likely 2/2 to infection and AML > BCX(05/03/19): Staph Auricularis, Staphy Epidermidis, Staph Coag > UCX(05/03, 05/04): ESBL Ecoli, E Faecalis; Citrobacter > repeat BCX, UCX, UA, Sputum Cx --pending - abx regimen: Ertapenem and daptomycin - platelet transfusions x3; will maintain goals plt >20k; will trend BID CBC - pRBC as need to keep Hgb >7; will trend BID CBC FEN - 1/2 NS @83 - NPO PPX - pantoprazole - SCDs as pt has low plt Dispo: will continue to monitor pending further workup for acute change in status Visit type - Emergency Visit Emergency Visit: No - New Patient This patient is new to me today: Yes Date on this admission: 05/16/19 - Critical Care Critical Care patient: Yes Total Critical Care Time (in minutes): 40 Critical Care Statement: The care of this patient involved high complexity decision making to prevent further life threatening deterioration of the patient 's condition and/or to evaluate & treat vital organ system(s) failure or risk of failure. ATTENDING PHYSICIAN STATEMENT I saw and evaluated the patient. I reviewed the resident's note and discussed the case with the resident. I agree with the resident's findings and plan as documented. SUBJECTIVE: OBJECTIVE: ASSESSMENT AND PLAN:
--- NOTE | 2019-05-16 11:53 | PN ---
Teaching Attending Note Name of Resident: Dante Baig ATTENDING PHYSICIAN STATEMENT I saw and evaluated the patient. I reviewed the resident's note and discussed the case with the resident. I agree with the resident's findings and plan as documented. SUBJECTIVE: Pt seen and examined in the ICU. Remains intubated, sedated. No obvious bleeding. Febrile overnight. Off pressors. OBJECTIVE: Vital Signs Period Temp Pulse Resp BP Sys/Borjas Pulse Ox Last 24 Hr 98.2 F-99.2 F 56-66 14-16 85-124/49-61 98 Intake & Output 05/13/19 05/14/19 05/15/19 05/16/19 23:59 23:59 23:59 23:59 Intake Total 1100 1500 3575 810 Output Total 400 650 550 250 Balance 957 322 3421 560 Gen: intubated, sedated Heart: RRR Lung: scattered rhonchi Abd: soft, nontender Ext: no edema CBC, BMP 05/16/19 05:27 05/16/19 05:27 Active Medications Acetaminophen (Ofirmev Injection -) 1,000 mg IVPB Q6H PRN PRN Reason: FEVER Last Admin: 05/15/19 05:46 Dose: 1,000 mg Allopurinol (Zyloprim -) 300 mg PO DAILY [facility] Last Admin: 05/15/19 10:09 Dose: Not Given IV Flush (Angelina-Cath Flush) 10 ml IVPUSH PRN PRN PRN Reason: protocol, maintain patency Last Admin: 05/15/19 05:54 Dose: 10 ml Ertapenem 1 gm/ Sodium (Chloride) 50 mls @ 100 mls/hr IVPB DAILY [facility] Last Admin: 05/15/19 12:23 Dose: 100 mls/hr Daptomycin 300 mg/ Sodium (Chloride) 50 mls @ 50 mls/hr IVPB DAILY@1800 [facility]; Protocol Last Admin: 05/15/19 19:44 Dose: 50 mls/hr Midazolam HCl (Midazolam 100mg/100ml-0.9%Nacl) 100 mg in 100 mls @ 1 mls/hr IVPB TITR [facility]; Protocol Last Admin: 05/15/19 09:50 Dose: 1 mg/hr, 1 mls/hr Sodium Chloride (1/2 Normal Saline) 1,000 mls @ 83 mls/hr IV ASDIR [facility] Last Admin: 05/15/19 12:00 Dose: 83 mls/hr Phenylephrine HCl 20,000 mcg/ (Sodium Chloride) 250 mls @ 75 mls/hr IVPB ASDIR [facility]; Protocol Last Admin: 05/16/19 10:50 Dose: Not Given Lactobacillus Acidophilus (Bacid -) 1 tab PO DAILY [facility] Last Admin: 05/16/19 10:50 Dose: Not Given Lamivudine (Epivir Oral Solution -) 100 mg PO DAILY [facility] Last Admin: 05/16/19 10:50 Dose: Not Given Magnesium Chloride (Slow-Mag -) 64 mg PO DAILY [facility] Last Admin: 05/16/19 10:52 Dose: Not Given Pantoprazole Sodium (Protonix -) 20 mg PO DAILY [facility] Last Admin: 05/16/19 10:51 Dose: Not Given Quetiapine Fumarate (Seroquel -) 12.5 mg PO BID [facility] Last Admin: 05/16/19 10:51 Dose: Not Given Valacyclovir HCl (Valtrex -) 500 mg PO DAILY [facility] Last Admin: 05/16/19 10:55 Dose: Not Given ASSESSMENT AND PLAN: Acute Hypoxic Respiratory Failure Pneumonia likely Aspiration UTI Septic Shock Acute on Chronic Renal Failure AML Thrombocytopenia/Anemia Hypernatremia - continue antibiotics - f/u cultures - send sputum cultures - monitor CBC - transfuse as needed - IVF - off pressors, maintain MAP >65 - daily sedation vacations to assess mental status - spontaneous breathing trials as tolerated - DVT/GI prophylaxis - continue ICU montioring critical care time spent in reviewing chart, evaluating patient and formulating plan 35 min
[2019-05-16] MEDS: SODIUM CHLORIDE 0.45% 1,000 ML IV SCH (14:00)
[2019-05-16] MEDS ORDERED: PT OWN MED DRAWER 7, Y5N ONE (15:27)
--- NOTE | 2019-05-16 15:51 | PN ---
Progress Note (short form) - Note Progress Note: Remains intubated , sedated Underwent head CT- acute sinusitis, no bleed or infarct ; Last Vital Signs Temp Pulse Resp BP Pulse Ox 98.2 F 62 15 108/52 L 98 05/15/19 22:00 05/16/19 10:00 05/16/19 12:19 05/16/19 10:00 05/16/19 01:03 HEENT: FELIBERTO, EOM Intact, reactive pupils Oropharyns- dried blood Cor: RSR, No murmurs, No gallops Lungs: rhonchi Abd: Soft, Normal bowel sounds, No organomegaly Ext:No significant edema Skin: No rashes, Integument intact CBC, BMP 05/16/19 05:27 05/16/19 05:27 Current Medications Generic Name Dose Route Start Last Admin Trade Name Freq PRN Reason Stop Dose Admin Acetaminophen 1,000 mg 05/15/19 05:34 05/15/19 05:46 Ofirmev Injection - IVPB 1,000 mg Q6H PRN Administration FEVER Allopurinol 300 mg 05/12/19 10:00 05/16/19 10:00 Zyloprim - PO Not Given DAILY RYAN IV Flush 10 ml 05/14/19 23:31 05/15/19 05:54 Angelina-Cath Flush IVPUSH 10 ml PRN PRN Administration protocol, maintain patency Ertapenem 1 gm/ Sodium 50 mls @ 100 mls/hr 05/09/19 16:30 05/16/19 10:30 Chloride IVPB 100 mls/hr DAILY RYAN Administration Daptomycin 300 mg/ Sodium 50 mls @ 50 mls/hr 05/09/19 18:00 05/15/19 19:44 Chloride IVPB 50 mls/hr DAILY@1800 RYAN Administration Protocol Midazolam HCl 100 mg in 100 mls @ 1 mls/hr 05/15/19 09:45 05/16/19 13:00 Midazolam 100mg/100ml-0.9%Nacl IVPB 0 mg/hr TITR RYAN 0 mls/hr Infusion Protocol 1 MG/HR Sodium Chloride 1,000 mls @ 83 mls/hr 05/15/19 12:30 05/15/19 12:00 1/2 Normal Saline IV 83 mls/hr ASDIR RYAN Administration Phenylephrine HCl 20,000 mcg/ 250 mls @ 75 mls/hr 05/15/19 07:30 05/16/19 10: 50 Sodium Chloride IVPB Not Given ASDIR RYAN Protocol 100 MCG/MIN Lactobacillus Acidophilus 1 tab 05/06/19 10:00 05/16/19 10:50 Bacid - PO Not Given DAILY [facility] Lamivudine 100 mg 05/04/19 10:00 05/16/19 10:50 Epivir Oral Solution - PO Not Given DAILY [facility] Magnesium Chloride 64 mg 05/09/19 11:30 05/16/19 10:52 Slow-Mag - PO Not Given DAILY [facility] Pantoprazole Sodium 20 mg 05/04/19 10:00 05/16/19 10:51 Protonix - PO Not Given DAILY [facility] Quetiapine Fumarate 12.5 mg 05/11/19 22:00 05/16/19 10:51 Seroquel - PO Not Given BID [facility] Valacyclovir HCl 500 mg 05/12/19 10:00 05/16/19 10:55 Valtrex - PO Not Given DAILY [facility] Impression: Acute hypoxic respiratory failure AML Anemia Thrombocytopenia Platelet clumping artifact Head Ct- no infarct or bleed Sepsis Continue antibiotics Platelet count in citrate Antibiotics per ID Critical care management of pulmonary status May need LP if platelets persist.
[2019-05-16 17:57] LABS: HEMATOCRIT 30.8 % (32.4-45.2); HEMOGLOBIN 10.4 GM/dL (10.7-15.3); MCH 29.9 pg (25.7-33.7); MCHC 33.6 g/dl (32.0-36.0); MEAN CELL VOLUME 88.9 fl (80-96); MEAN PLT VOLUME 8.6 fl (7.5-11.1); RBC 3.47 M/mm3 (3.60-5.2); RDW 15.9 % (11.6-15.6); WHITE BLOOD COUNT 12.2 K/mm3 (4.0-10.0)
[2019-05-16] MEDS: DAPTOMYCIN 300 MG in SODIUM CHLORIDE 50 ML IVPB SCH (18:22)
[2019-05-16] MEDS: MIDAZOLAM IN 0.9 % SOD.CHLORID 100 MG/100 ML PLAST..BAG IVPB SCH (18:23)
--- NOTE | 2019-05-16 18:53 | PN ---
Progress Note, Physician History of Present Illness: UNRESPONSIVE ON VENTILATOR REMAINS FEBRILE WBC DECREASED THROMBOCYTOPENIC AZOTEMIA - Current Medication List Current Medications: Active Medications Acetaminophen (Ofirmev Injection -) 1,000 mg IVPB Q6H PRN PRN Reason: FEVER Last Admin: 05/15/19 05:46 Dose: 1,000 mg Allopurinol (Zyloprim -) 300 mg PO DAILY [facility]AN Last Admin: 05/16/19 10:00 Dose: Not Given IV Flush (Angelina-Cath Flush) 10 ml IVPUSH PRN PRN PRN Reason: protocol, maintain patency Last Admin: 05/15/19 05:54 Dose: 10 ml Ertapenem 1 gm/ Sodium (Chloride) 50 mls @ 100 mls/hr IVPB DAILY [facility] Last Admin: 05/16/19 10:30 Dose: 100 mls/hr Daptomycin 300 mg/ Sodium (Chloride) 50 mls @ 50 mls/hr IVPB DAILY@1800 R[facility]AN; Protocol Last Admin: 05/16/19 18:22 Dose: 50 mls/hr Midazolam HCl (Midazolam 100mg/100ml-0.9%Nacl) 100 mg in 100 mls @ 1 mls/hr IVPB TITR RYAN; Protocol Last Admin: 05/16/19 18:23 Dose: Not Given Sodium Chloride (1/2 Normal Saline) 1,000 mls @ 83 mls/hr IV ASDIR RYAN Last Admin: 05/16/19 14:00 Dose: 83 mls/hr Phenylephrine HCl 20,000 mcg/ (Sodium Chloride) 250 mls @ 75 mls/hr IVPB ASDIR RYAN; Protocol Last Admin: 05/16/19 10:50 Dose: Not Given Lactobacillus Acidophilus (Bacid -) 1 tab PO DAILY [facility] Last Admin: 05/16/19 10:50 Dose: Not Given Lamivudine (Epivir Oral Solution -) 100 mg PO DAILY [facility] Last Admin: 05/16/19 10:50 Dose: Not Given Magnesium Chloride (Slow-Mag -) 64 mg PO DAILY [facility] Last Admin: 05/16/19 10:52 Dose: Not Given Pantoprazole Sodium (Protonix -) 20 mg PO DAILY [facility] Last Admin: 05/16/19 10:51 Dose: Not Given Quetiapine Fumarate (Seroquel -) 12.5 mg PO BID [facility] Last Admin: 02/18/20 10:51 Dose: Not Given Valacyclovir HCl (Valtrex -) 500 mg PO DAILY [facility] Last Admin: 05/16/19 10:55 Dose: Not Given - Objective Vital Signs: Vital Signs Temperature 98.2 F 05/15/19 22:00 Pulse Rate 62 05/16/19 10:00 Respiratory Rate 15 05/16/19 12:19 Blood Pressure 108/52 L 05/16/19 10:00 O2 Sat by Pulse Oximetry (%) 98 05/16/19 01:03 Constitutional: Yes: No Distress Cardiovascular: Yes: Regular Rate and Rhythm, S1, S2 Respiratory: Yes: Diminished Gastrointestinal: Yes: Normal Bowel Sounds, Soft Edema: No Labs: CBC, BMP 05/16/19 16:50 05/16/19 05:27 INR, PTT INR 1.18 (0.83-1.09) H 05/03/19 23:20 Assessment/Plan ACUTE RESP FAILURE FEVER AML LEUKOCYTOSIS WITH BLASTS ? SEPSIS ? ACUTE LEUKEMIA RECURRENT UTI HX ESBL AZOTEMIA VANCOMYCIN ALLERGY REPEAT CULTURES NO GROWTH CONTINUE EMPIRIC ERTAPENEM/ DAPTO (VANCOMYCIN ALLERGY) VENTILATORY SUPPORT PROGNOSIS POOR
[2019-05-16 19:10] LABS: PLATELET COUNT 17 K/MM3 (134-434)
[2019-05-16] MEDS: ACETAMINOPHEN 1000 MG/100 ML VIAL (NON FORMULARY) IVPB PRN (19:43)
[2019-05-17 00:03] LABS: ANISOCYTOSIS 1+; PLATELET ESTIMATE DECREASED
[2019-05-17 06:34] LABS: BASO % 0.4 % (0-2.0); EOS % 2.9 % (0-4.5); HEMATOCRIT 28.3 % (32.4-45.2); HEMOGLOBIN 9.8 GM/dL (10.7-15.3); LYMPH % 28.3 % (8-40); MCH 30.8 pg (25.7-33.7); MCHC 34.5 g/dl (32.0-36.0); MEAN CELL VOLUME 89.5 fl (80-96); MEAN PLT VOLUME 8.8 fl (7.5-11.1); MONO % 27.4 % (3.8-10.2); RBC 3.17 M/mm3 (3.60-5.2); RDW 15.7 % (11.6-15.6); WHITE BLOOD COUNT 10.9 K/mm3 (4.0-10.0)
[2019-05-17 06:49] LABS: ALBUMIN 2.9 g/dl (3.4-5.0); BILIRUBIN,TOTAL 0.8 mg/dL (0.2-1); BLOOD UREA NITROGEN 61.2 mg/dL (7-18); CALCIUM 9.6 mg/dL (8.5-10.1); CREATININE 1.7 mg/dL (0.55-1.3); MAGNESIUM 2.6 mg/dL (1.8-2.4); PHOSPHOROUS 3.1 mg/dL (2.5-4.9); TOT PROT 5.7 g/dl (6.4-8.2)
[2019-05-17] MEDS: MIDAZOLAM IN 0.9 % SOD.CHLORID 100 MG/100 ML PLAST..BAG IVPB SCH (07:00)
[2019-05-17 07:01] LABS: PLATELET COUNT 10 K/MM3 (134-434)
[2019-05-17] MEDS ORDERED: PT OWN MED DRAWER 7, Y5N ONE (09:27)
[2019-05-17] MEDS ORDERED: SODIUM CHLORIDE 0.45% 1,000 ML IV SCH (09:34)
--- NOTE | 2019-05-17 09:38 | PN ---
Progress Note, Physician - Current Medication List Current Medications: Active Medications Acetaminophen (Ofirmev Injection -) 1,000 mg IVPB Q6H PRN PRN Reason: FEVER Last Admin: 05/16/19 19:43 Dose: 1,000 mg Allopurinol (Zyloprim -) 300 mg PO DAILY [facility] Last Admin: 05/16/19 10:00 Dose: Not Given IV Flush (Angelina-Cath Flush) 10 ml IVPUSH PRN PRN PRN Reason: protocol, maintain patency Last Admin: 05/15/19 05:54 Dose: 10 ml Ertapenem 1 gm/ Sodium (Chloride) 50 mls @ 100 mls/hr IVPB DAILY [facility] Last Admin: 05/16/19 10:30 Dose: 100 mls/hr Daptomycin 300 mg/ Sodium (Chloride) 50 mls @ 50 mls/hr IVPB DAILY@1800 R[facility]AN; Protocol Last Admin: 05/16/19 18:22 Dose: 50 mls/hr Midazolam HCl (Midazolam 100mg/100ml-0.9%Nacl) 100 mg in 100 mls @ 1 mls/hr IVPB TITR RYAN; Protocol Last Admin: 05/16/19 18:23 Dose: Not Given Sodium Chloride (1/2 Normal Saline) 1,000 mls @ 83 mls/hr IV ASDIR RYAN Last Admin: 05/16/19 14:00 Dose: 83 mls/hr Phenylephrine HCl 20,000 mcg/ (Sodium Chloride) 250 mls @ 75 mls/hr IVPB ASDIR RYAN; Protocol Last Admin: 05/16/19 10:50 Dose: Not Given Lactobacillus Acidophilus (Bacid -) 1 tab PO DAILY [facility] Last Admin: 05/16/19 10:50 Dose: Not Given Lamivudine (Epivir Oral Solution -) 100 mg PO DAILY [facility] Last Admin: 05/16/19 10:50 Dose: Not Given Magnesium Chloride (Slow-Mag -) 64 mg PO DAILY [facility] Last Admin: 05/16/19 10:52 Dose: Not Given Pantoprazole Sodium (Protonix -) 20 mg PO DAILY [facility] Last Admin: 05/16/19 10:51 Dose: Not Given Quetiapine Fumarate (Seroquel -) 12.5 mg PO BID [facility] Last Admin: 05/16/19 21:45 Dose: Not Given Valacyclovir HCl (Valtrex -) 500 mg PO DAILY [facility] Last Admin: 05/16/19 10:55 Dose: Not Given - Objective Vital Signs: Vital Signs Temperature 97.8 F 05/17/19 02:00 Pulse Rate 57 L 05/17/19 02:00 Respiratory Rate 16 05/17/19 08:56 Blood Pressure 160/73 05/17/19 02:00 O2 Sat by Pulse Oximetry (%) 100 05/17/19 08:56 Labs: CBC, BMP 05/17/19 05:00 05/17/19 05:00 INR, PTT INR 1.18 (0.83-1.09) H 05/03/19 23:20 Problem List - Problems (1) EBER (acute kidney injury) Code(s): N17.9 - ACUTE KIDNEY FAILURE, UNSPECIFIED (2) Anemia requiring transfusions Code(s): D64.9 - ANEMIA, UNSPECIFIED (3) UTI (urinary tract infection) Code(s): N39.0 - URINARY TRACT INFECTION, SITE NOT SPECIFIED Qualifiers: Urinary tract infection type: acute cystitis Hematuria presence: without hematuria Qualified Code(s): N30.00 - Acute cystitis without hematuria (4) CKD (chronic kidney disease) Code(s): N18.9 - CHRONIC KIDNEY DISEASE, UNSPECIFIED (5) CLL (chronic lymphocytic leukemia) Code(s): C91.10 - CHRONIC LYMPHOCYTIC LEUK OF B-CELL TYPE NOT ACHIEVE REMIS (6) Hepatitis B Code(s): B19.10 - UNSPECIFIED VIRAL HEPATITIS B WITHOUT HEPATIC COMA (7) Hydronephrosis Code(s): N13.30 - UNSPECIFIED HYDRONEPHROSIS Assessment/Plan This is a 73-year-old female with acute respiratory failure, on ventilator support. The patient's platelets are extremely low. Getting Plt transfusions. Tendency for the BP to run high. ? Volume related. Will reduce IV 0.45NSS to 30 ml/ hr. The patient is in acute kidney injury with tendency for some improvent, possibly related to improvent in hemodynamic status. Urine output improving. The patient remains sedated and unresponsive. Serum sodium is stable. We will continue the 1/2 Normal saline as KVO. We will monitor the renal and the electrolyte profile. Sarah Cardona MD
[2019-05-17] MEDS: lamiVUDine 10 MG/1 ML BULK BOTTLE PO SCH (09:45)
[2019-05-17] MEDS: LACTOBACILLUS ACIDOPHILUS 1 TABLET PO SCH (09:45)
[2019-05-17] MEDS: PANTOPRAZOLE 20 MG TABLET PO SCH (09:48)
[2019-05-17] MEDS: ERTAPENEM SODIUM 1 GM in SODIUM CHLORIDE 50 ML IVPB SCH (09:48)
[2019-05-17] MEDS: ALLOPURINOL 300 MG TABLET (FP) PO SCH (09:49)
[2019-05-17] MEDS: QUEtiapine FUMARATE 25 MG TABLET PO SCH (09:49)
[2019-05-17] MEDS: valACYclovir HCL 500 MG TABLET (FP) PO SCH (09:49)
[2019-05-17] MEDS: MAGNESIUM CL 64 MG TABLET.SA PO SCH (09:49)
--- NOTE | 2019-05-17 10:52 | PN ---
Progress Note, Physician History of Present Illness: UNRESPONSIVE ON VENTILATOR TEMPS DOWN TODAY WBC DECREASED 10.9 THROMBOCYTOPENIC AZOTEMIA - Current Medication List Current Medications: Active Medications Acetaminophen (Ofirmev Injection -) 1,000 mg IVPB Q6H PRN PRN Reason: FEVER Last Admin: 05/16/19 19:43 Dose: 1,000 mg Allopurinol (Zyloprim -) 300 mg PO DAILY [facility] Last Admin: 05/17/19 09:49 Dose: Not Given IV Flush (Angelina-Cath Flush) 10 ml IVPUSH PRN PRN PRN Reason: protocol, maintain patency Last Admin: 05/15/19 05:54 Dose: 10 ml Ertapenem 1 gm/ Sodium (Chloride) 50 mls @ 100 mls/hr IVPB DAILY [facility] Last Admin: 05/17/19 09:48 Dose: 100 mls/hr Daptomycin 300 mg/ Sodium (Chloride) 50 mls @ 50 mls/hr IVPB DAILY@1800 R[facility]AN; Protocol Last Admin: 05/16/19 18:22 Dose: 50 mls/hr Phenylephrine HCl 20,000 mcg/ (Sodium Chloride) 250 mls @ 75 mls/hr IVPB ASDIR RYAN; Protocol Last Admin: 05/16/19 10:50 Dose: Not Given Sodium Chloride (1/2 Normal Saline) 1,000 mls @ 30 mls/hr IV ASDIR [facility] Last Admin: 05/17/19 09:50 Dose: 30 mls/hr Lactobacillus Acidophilus (Bacid -) 1 tab PO DAILY [facility] Last Admin: 05/17/19 09:45 Dose: Not Given Lamivudine (Epivir Oral Solution -) 100 mg PO DAILY [facility] Last Admin: 05/17/19 09:45 Dose: Not Given Magnesium Chloride (Slow-Mag -) 64 mg PO DAILY [facility] Last Admin: 05/17/19 09:49 Dose: Not Given Pantoprazole Sodium (Protonix -) 20 mg PO DAILY [facility] Last Admin: 05/17/19 09:48 Dose: Not Given Quetiapine Fumarate (Seroquel -) 12.5 mg PO BID [facility] Last Admin: 05/17/19 09:49 Dose: Not Given Valacyclovir HCl (Valtrex -) 500 mg PO DAILY [facility] Last Admin: 05/17/19 09:49 Dose: Not Given - Objective Vital Signs: Vital Signs Temperature 97.8 F 05/17/19 02:00 Pulse Rate 57 L 05/17/19 02:00 Respiratory Rate 16 05/17/19 08:56 Blood Pressure 160/73 05/17/19 02:00 O2 Sat by Pulse Oximetry (%) 100 05/17/19 08:56 Constitutional: Yes: No Distress Eyes: Yes: Conjunctiva Clear Cardiovascular: Yes: Regular Rate and Rhythm, S1, S2 Respiratory: Yes: Mechanically Ventilated Gastrointestinal: Yes: Normal Bowel Sounds, Soft. No: Tenderness Extremities: Yes: Other (PETECHIAE L UE) Edema: Yes Labs: CBC, BMP 05/17/19 05:00 05/17/19 05:00 INR, PTT INR 1.18 (0.83-1.09) H 05/03/19 23:20 Assessment/Plan ACUTE RESP FAILURE FEVER AML LEUKOCYTOSIS WITH BLASTS ? SEPSIS ? ACUTE LEUKEMIA RECURRENT UTI HX ESBL AZOTEMIA VANCOMYCIN ALLERGY REPEAT CULTURES NO GROWTH CONTINUE EMPIRIC ERTAPENEM/ DAPTO (VANCOMYCIN ALLERGY) VENTILATORY SUPPORT PROGNOSIS POOR
--- NOTE | 2019-05-17 11:45 | PN ---
Teaching Attending Note Name of Resident: Dante Baig ATTENDING PHYSICIAN STATEMENT I saw and evaluated the patient. I reviewed the resident's note and discussed the case with the resident. I agree with the resident's findings and plan as documented. SUBJECTIVE: Pt seen and examined in the ICU. Remains intubated, sedated. Developing petechiae. Ordered for platelet transfusions today. OBJECTIVE: Vital Signs Period Temp Pulse Resp BP Sys/Borjas Pulse Ox Last 24 Hr 97.8 F 57 15-17 160/73 98-100 Intake & Output 05/14/19 05/15/19 05/16/19 05/17/19 23:59 23:59 23:59 23:59 Intake Total 1500 3575 2509 249 Output Total 650 550 250 700 Balance 850 3025 2259 -451 Weight 53.977 kg Gen: intubated, sedated Heart: RRR Lung: scattered rhonchi Abd: soft, nontender Ext: no edema CBC, BMP 05/17/19 05:00 05/17/19 05:00 Active Medications Acetaminophen (Ofirmev Injection -) 1,000 mg IVPB Q6H PRN PRN Reason: FEVER Last Admin: 05/16/19 19:43 Dose: 1,000 mg Allopurinol (Zyloprim -) 300 mg PO DAILY [facility] Last Admin: 05/17/19 09:49 Dose: Not Given IV Flush (Angelina-Cath Flush) 10 ml IVPUSH PRN PRN PRN Reason: protocol, maintain patency Last Admin: 05/15/19 05:54 Dose: 10 ml Ertapenem 1 gm/ Sodium (Chloride) 50 mls @ 100 mls/hr IVPB DAILY [facility] Last Admin: 05/17/19 09:48 Dose: 100 mls/hr Daptomycin 300 mg/ Sodium (Chloride) 50 mls @ 50 mls/hr IVPB DAILY@1800 RYAN; Protocol Last Admin: 05/16/19 18:22 Dose: 50 mls/hr Phenylephrine HCl 20,000 mcg/ (Sodium Chloride) 250 mls @ 75 mls/hr IVPB ASDIR RYAN; Protocol Last Admin: 05/16/19 10:50 Dose: Not Given Sodium Chloride (1/2 Normal Saline) 1,000 mls @ 30 mls/hr IV ASDIR RYAN Last Admin: 05/17/19 09:50 Dose: 30 mls/hr Lactobacillus Acidophilus (Bacid -) 1 tab PO DAILY [facility] Last Admin: 05/17/19 09:45 Dose: Not Given Lamivudine (Epivir Oral Solution -) 100 mg PO DAILY [facility] Last Admin: 05/17/19 09:45 Dose: Not Given Magnesium Chloride (Slow-Mag -) 64 mg PO DAILY [facility] Last Admin: 05/17/19 09:49 Dose: Not Given Pantoprazole Sodium (Protonix -) 20 mg PO DAILY [facility] Last Admin: 05/17/19 09:48 Dose: Not Given Quetiapine Fumarate (Seroquel -) 12.5 mg PO BID [facility] Last Admin: 05/17/19 09:49 Dose: Not Given Valacyclovir HCl (Valtrex -) 500 mg PO DAILY [facility] Last Admin: 05/17/19 09:49 Dose: Not Given ASSESSMENT AND PLAN: s/p Cardiopulmonary Arrest Likely Anoxic Encephalopathy LV Systolic Dysfunction CAD Mitral Regurgitation Pneumonia Acute Kidney Injury HTN Hypercholesterolemia Hypernatremia GERD Anemia - continue antibiotics - f/u cultures - monitor CBC - transfuse as needed - hold all sedation to assess mental status - spontaneous breathing trials as tolerated - free water replacement - continue discussions with family regarding goals of care - DVT/GI prophylaxis - continue ICU monitoring critical care time spent in reviewing chart, evaluating patient and formulating plan 35 min
--- NOTE | 2019-05-17 12:36 | PN ---
Progress Note, Physician History of Present Illness: Pt is admitted to ICU, intubated. Pt received sedation last night. - Current Medication List Current Medications: Active Medications Acetaminophen (Ofirmev Injection -) 1,000 mg IVPB Q6H PRN PRN Reason: FEVER Last Admin: 05/16/19 19:43 Dose: 1,000 mg Allopurinol (Zyloprim -) 300 mg PO DAILY [facility] Last Admin: 05/17/19 09:49 Dose: Not Given IV Flush (Angelina-Cath Flush) 10 ml IVPUSH PRN PRN PRN Reason: protocol, maintain patency Last Admin: 05/15/19 05:54 Dose: 10 ml Ertapenem 1 gm/ Sodium (Chloride) 50 mls @ 100 mls/hr IVPB DAILY [facility] Last Admin: 05/17/19 09:48 Dose: 100 mls/hr Daptomycin 300 mg/ Sodium (Chloride) 50 mls @ 50 mls/hr IVPB DAILY@1800 [facility]; Protocol Last Admin: 05/16/19 18:22 Dose: 50 mls/hr Phenylephrine HCl 20,000 mcg/ (Sodium Chloride) 250 mls @ 75 mls/hr IVPB ASDIR RYAN; Protocol Last Admin: 05/16/19 10:50 Dose: Not Given Sodium Chloride (1/2 Normal Saline) 1,000 mls @ 30 mls/hr IV ASDIR [facility]YAN Last Admin: 05/17/19 09:50 Dose: 30 mls/hr Lactobacillus Acidophilus (Bacid -) 1 tab PO DAILY [facility] Last Admin: 05/17/19 09:45 Dose: Not Given Lamivudine (Epivir Oral Solution -) 100 mg PO DAILY [facility] Last Admin: 05/17/19 09:45 Dose: Not Given Magnesium Chloride (Slow-Mag -) 64 mg PO DAILY [facility] Last Admin: 05/17/19 09:49 Dose: Not Given Pantoprazole Sodium (Protonix -) 20 mg PO DAILY [facility] Last Admin: 05/17/19 09:48 Dose: Not Given Quetiapine Fumarate (Seroquel -) 12.5 mg PO BID [facility] Last Admin: 05/17/19 09:49 Dose: Not Given Valacyclovir HCl (Valtrex -) 500 mg PO DAILY [facility] Last Admin: 05/17/19 09:49 Dose: Not Given - Objective Vital Signs: Vital Signs Temperature 97.8 F 05/17/19 02:00 Pulse Rate 57 L 05/17/19 02:00 Respiratory Rate 16 05/17/19 09:10 Blood Pressure 160/73 05/17/19 02:00 O2 Sat by Pulse Oximetry (%) 100 05/17/19 08:56 Constitutional: Yes: No Distress, Calm Cardiovascular: Yes: Regular Rate and Rhythm, S1, S2 Respiratory: Yes: Regular, CTA Bilaterally, Other (coarse BS at bases) Gastrointestinal: Yes: Normal Bowel Sounds, Soft. No: Tenderness Edema: No Neurological: Yes: Alert, Oriented Labs: CBC, BMP 05/17/19 05:00 05/17/19 05:00 INR, PTT INR 1.18 (0.83-1.09) H 05/03/19 23:20 Problem List - Problems (1) AML (acute myeloblastic leukemia) Code(s): C92.00 - ACUTE MYELOBLASTIC LEUKEMIA, NOT HAVING ACHIEVED REMISSION (2) Fever Code(s): R50.9 - FEVER, UNSPECIFIED Qualifiers: Fever type: unspecified Qualified Code(s): R50.9 - Fever, unspecified (3) UTI (urinary tract infection) Code(s): N39.0 - URINARY TRACT INFECTION, SITE NOT SPECIFIED Qualifiers: Urinary tract infection type: acute cystitis Hematuria presence: without hematuria Qualified Code(s): N30.00 - Acute cystitis without hematuria (4) Anemia Code(s): D64.9 - ANEMIA, UNSPECIFIED Qualifiers: Anemia type: unspecified type Qualified Code(s): D64.9 - Anemia, unspecified (5) Thrombocytopenia Code(s): D69.6 - THROMBOCYTOPENIA, UNSPECIFIED (6) EBER (acute kidney injury) Code(s): N17.9 - ACUTE KIDNEY FAILURE, UNSPECIFIED (7) Hypernatremia Code(s): E87.0 - HYPEROSMOLALITY AND HYPERNATREMIA (8) Acute respiratory failure Code(s): J96.00 - ACUTE RESPIRATORY FAILURE, UNSP W HYPOXIA OR HYPERCAPNIA (9) Septic shock Code(s): A41.9 - SEPSIS, UNSPECIFIED ORGANISM; R65.21 - SEVERE SEPSIS WITH SEPTIC SHOCK Assessment/Plan Admitted to ICU Off pressor medication IV sedation is on hold on IV abtx. IVF (1/2 NS); creatinine is better today. S/p PRBC Tx. S/p Plts Tx, might new Tx CCM, Heme, Renal, ID consults and f/u are appreciated. AM labs. TF pending i mproving Plts number (and decreased risk of bleeding) Time spent for coordination of care: over 35 minutes Prognosis: poor.
[2019-05-17] MEDS: ACETAMINOPHEN 1000 MG/100 ML VIAL (NON FORMULARY) IVPB PRN (13:35)
--- NOTE | 2019-05-17 14:38 | PN ---
Physical Exam: SUBJECTIVE: Patient seen and examined Yesterday plt 17 and today 10. No acute events overnight. Hypertensive this morning 160s/90s OBJECTIVE: Vital Signs Period Temp Pulse Resp BP Sys/Borjas Pulse Ox Last 24 Hr 97.8 F-98.5 F 57-67 15-22 160-178/73-103 98-100 GENERAL: sedated on midazolam, intubated HEAD: NC/AT EYES: sclera anicteric, conjunctiva clear. No ptosis. ENT: Ears normal, nares patent, dried blood in mouth NECK: Trachea midline, full range of motion, supple. LUNGS: Breath sounds equal, mildly coarse bilaterally, no wheezes, no crackles. Vent 400, 14, 5, 50% HEART: Regular rate and rhythm, S1, S2 without murmur, rub or gallop. Right upper chest with chemoport ABDOMEN: Soft, nontender, nondistended, normoactive bowel sounds, no guarding, no rebound. EXTREMITIES: 2+ pulses, warm, well-perfused, no edema. NEUROLOGICAL: lethargic on sedation SKIN: Warm, dry, normal turgor, no rashes or lesions noted Laboratory Results - last 24 hr 05/14/19 05/16/19 05/16/19 09:35 16:50 16:50 WBC 12.2 H RBC 3.47 L Hgb 10.4 L Hct 30.8 L MCV 88.9 MCH 29.9 MCHC 33.6 RDW 15.9 H Plt Count 17 L* D MPV 8.6 Absolute Neuts (auto) Total Counted 100 Neutrophils % No Result Required. Neutrophils % (Manual) 40.0 L Band Neutrophils % 2.0 Lymphocytes % No Result Required. Lymphocytes % (Manual) 15.0 Monocytes % Monocytes % (Manual) 24 H Eosinophils % Eosinophils % (Manual) 2.0 Basophils % Basophils % (Manual) Myelocytes % (Man) 5 H Blast Cells % (Manual) 2 H D Nucleated RBC % 0 Metamyelocytes 5 H D Differential Comment Man diff performed Hypochromia Platelet Estimate Decreased Plt Clumps, Citrate 14.0 L* Platelet Comment Slide scanned. Anisocytosis 1+ Microcytosis 1+ Sodium Potassium Chloride Carbon Dioxide Anion Gap BUN Creatinine Est GFR (CKD-EPI)AfAm Est GFR (CKD-EPI)NonAf Random Glucose Calcium Phosphorus Magnesium Total Bilirubin AST ALT Alkaline Phosphatase Total Protein Albumin Anti-A Titer Cancelled Blood Type Cancelled Antibody Screen Cancelled Crossmatch See Detail 05/17/19 05/17/19 05:00 05:00 WBC 10.9 H RBC 3.17 L Hgb 9.8 L Hct 28.3 L MCV 89.5 MCH 30.8 MCHC 34.5 RDW 15.7 H Plt Count 10 L* D MPV 8.8 Absolute Neuts (auto) 4.4 Total Counted 100 Neutrophils % 41.0 L Neutrophils % (Manual) 42.0 L Band Neutrophils % 1.0 Lymphocytes % 28.3 D Lymphocytes % (Manual) 27.0 D Monocytes % 27.4 H Monocytes % (Manual) 21 H Eosinophils % 2.9 Eosinophils % (Manual) 4.0 D Basophils % 0.4 Basophils % (Manual) 0.0 Myelocytes % (Man) 3 H D Blast Cells % (Manual) Nucleated RBC % 0 Metamyelocytes 2 D Differential Comment Hypochromia 1+ Platelet Estimate Plt Clumps, Citrate Platelet Comment Anisocytosis Microcytosis Sodium 150 H Potassium 4.0 Chloride 118 H Carbon Dioxide 26 Anion Gap 6 L BUN 61.2 H Creatinine 1.7 H Est GFR (CKD-EPI)AfAm 34.08 Est GFR (CKD-EPI)NonAf 29.40 Random Glucose 114 H Calcium 9.6 Phosphorus 3.1 Magnesium 2.6 H Total Bilirubin 0.8 AST 56 H ALT 37 Alkaline Phosphatase 135 H Total Protein 5.7 L Albumin 2.9 L Anti-A Titer Blood Type Antibody Screen Crossmatch Active Medications Generic Name Dose Route Start Last Admin Trade Name Freq PRN Reason Stop Dose Admin Acetaminophen 1,000 mg 05/15/19 05:34 05/17/19 13:35 Ofirmev Injection - IVPB 1,000 mg Q6H PRN Administration FEVER Allopurinol 300 mg 05/12/19 10:00 05/17/19 09:49 Zyloprim - PO Not Given DAILY RYAN IV Flush 10 ml 05/14/19 23:31 05/15/19 05:54 Angelina-Cath Flush IVPUSH 10 ml PRN PRN Administration protocol, maintain patency Ertapenem 1 gm/ Sodium 50 mls @ 100 mls/hr 05/09/19 16:30 05/17/19 09:48 Chloride IVPB 100 mls/hr DAILY RYAN Administration Daptomycin 300 mg/ Sodium 50 mls @ 50 mls/hr 05/09/19 18:00 05/16/19 18:22 Chloride IVPB 50 mls/hr DAILY@1800 [facility] Administration Protocol Phenylephrine HCl 20,000 mcg/ 250 mls @ 75 mls/hr 05/15/19 07:30 05/16/19 10: 50 Sodium Chloride IVPB Not Given ASDIR RYAN Protocol 100 MCG/MIN Lactobacillus Acidophilus 1 tab 05/06/19 10:00 05/17/19 09:45 Bacid - PO Not Given DAILY RYAN Lamivudine 100 mg 05/04/19 10:00 05/17/19 09:45 Epivir Oral Solution - PO Not Given DAILY RYAN Magnesium Chloride 64 mg 05/09/19 11:30 05/17/19 09:49 Slow-Mag - PO Not Given DAILY RYAN Pantoprazole Sodium 40 mg 05/18/19 10:00 Protonix Iv IVPUSH DAILY RYAN Valacyclovir HCl 500 mg 05/12/19 10:00 05/17/19 09:49 Valtrex - PO Not Given DAILY RYAN ASSESSMENT/PLAN: 73F w/ pmh of HTN, HLD, CHF, HFpEF, dementia, HBV, MDS, CLL --> AML presented from Rehab facility with complaint of fever; admitted to [facility] for ARF and severe anemia. Fevers thought 2/2 to infections vs AML-related. UCX grew citrobacter and E faecalis, BCX grew staph. Recurrent fevers; on daptomycin, ertapenem, lamivudine, valacyclovir. Intubated on due to lethargy with inability to protect airway. NEURO # Lethargy --likely 2/2 sepsis and hospital benzodiazapenes # Dementia > CTH: no acute process - sedated on Midazolam; DC all sedating meds; continued mental status checks CARDIO # HFpEF --not in excerbation > EKG(05/03/19): NSR, QTc 427 - BP 160s/90s this morning; ivf DCd RESPIR # Intubated - Vent 400ml, 14, PEEP 5, 50% GI - NPO RENAL #EBER > Cr(baseline ~1): 2.3 -> 1.7; BUN 60.6 -> 61.2 - Nephro([facility]) consulted: --likely EBER 2/2 sepsis - DC ivf ID/HEME # Sepsis 2/2 to UTI with bacteremia, high fevers # Thrombocytopenia # Anemia # AML # recurrent fevers --likely 2/2 to infection and AML > BCX(05/03/19): Staph Auricularis, Staphy Epidermidis, Staph Coag > UCX(05/03, 05/04): ESBL Ecoli, E Faecalis; Citrobacter > repeat BCX, UCX, UA, Sputum Cx --pending - abx regimen: Ertapenem and daptomycin - platelet transfusions x3; will maintain goals plt >20k; 2units plts running this morning for plt 10; will trend BID CBC; followup PM plt, coags, fibrinogen for concern of DIC - pRBC as need to keep Hgb >7; will trend BID CBC FEN - heplock - NPO PPX - pantoprazole - SCDs as pt has low plt Dispo: will continue to monitor pending further workup for acute change in status Visit type - Emergency Visit Emergency Visit: No - New Patient This patient is new to me today: No - Critical Care Critical Care patient: Yes Total Critical Care Time (in minutes): 35 Critical Care Statement: The care of this patient involved high complexity decision making to prevent further life threatening deterioration of the patient 's condition and/or to evaluate & treat vital organ system(s) failure or risk of failure. ATTENDING PHYSICIAN STATEMENT I saw and evaluated the patient. I reviewed the resident's note and discussed the case with the resident. I agree with the resident's findings and plan as documented. SUBJECTIVE: OBJECTIVE: ASSESSMENT AND PLAN:
[2019-05-17] MEDS: DAPTOMYCIN 300 MG in SODIUM CHLORIDE 50 ML IVPB SCH (17:25)
[2019-05-17 17:53] LABS: BASO % 2.1 % (0-2.0); EOS % 2.2 % (0-4.5); HEMATOCRIT 28.1 % (32.4-45.2); HEMOGLOBIN 9.5 GM/dL (10.7-15.3); LYMPH % 33.8 % (8-40); MCH 30.2 pg (25.7-33.7); MCHC 33.7 g/dl (32.0-36.0); MEAN CELL VOLUME 89.6 fl (80-96); MEAN PLT VOLUME 8.9 fl (7.5-11.1); MONO % 23.3 % (3.8-10.2); NEUT % 38.6 % (42.8-82.8); PLATELET COUNT 47 K/MM3 (134-434); RBC 3.13 M/mm3 (3.60-5.2); RDW 15.7 % (11.6-15.6); WHITE BLOOD COUNT 12.3 K/mm3 (4.0-10.0)
[2019-05-17 18:07] LABS: INR 1.17 (0.83-1.09); PROTHROMBIN TIME (PATIENT) 13.8 SEC (9.7-13.0)
[2019-05-17 18:20] LABS: PLATELET ESTIMATE DECREASED
--- NOTE | 2019-05-17 20:45 | PN ---
Progress Note (short form) - Note Progress Note: Patient noted to be hypertensive over the course of the day (SBP in the 170's, DBP in the 70's_ with heart rate in the 50's to 60's) despite decreasing and discontinuing IVF. In order to administer PO medications, patient needs NGT. NGT contraindicated in the setting of thrombocytopenia. All ACEI and ARBS not ideal 2/2 renal failure. Diuretics not ideal 2/2 renal failure antiarrythmics not ideal 2/2 borderline bradycardia Hydralazine not ideal as it has a side effect of agranulocytosis and the patien' s platelets are low. Will place the patient on low dose cardiene drip and titrate closely to bp. Case discussed w/ Dr. Aguirre, who is in agreement.
--- NOTE | 2019-05-17 21:17 | PN ---
Progress Note (short form) - Note Progress Note: Patient seen and examined Hypertensive status noted Little change clinically Not sedated, but not responsive Remains intubated Last Vital Signs Temp Pulse Resp BP Pulse Ox 100 F H 65 16 170/73 100 05/17/19 15:00 05/17/19 18:11 05/17/19 20:31 05/17/19 20:49 05/17/19 08:56 HEENT: FELIBERTO, EOM Intact,reactive pupils ET tube Cor: bradycardia Lungs: diminished breeath sounds Abd: Soft, Normal bowel sounds, No organomegaly Ext:No significant edema Skin: No rashes, Integument intact CBC, BMP 05/17/19 17:00 05/17/19 05:00 Current Medications Generic Name Dose Route Start Last Admin Trade Name Freq PRN Reason Stop Dose Admin Acetaminophen 1,000 mg 05/15/19 05:34 05/17/19 13:35 Ofirmev Injection - IVPB 1,000 mg Q6H PRN Administration FEVER Allopurinol 300 mg 05/12/19 10:00 05/17/19 09:49 Zyloprim - PO Not Given DAILY RYAN IV Flush 10 ml 05/14/19 23:31 05/15/19 05:54 Angelina-Cath Flush IVPUSH 10 ml PRN PRN Administration protocol, maintain patency Ertapenem 1 gm/ Sodium 50 mls @ 100 mls/hr 05/09/19 16:30 05/17/19 09:48 Chloride IVPB 100 mls/hr DAILY RYAN Administration Daptomycin 300 mg/ Sodium 50 mls @ 50 mls/hr 05/09/19 18:00 05/17/19 17:25 Chloride IVPB 50 mls/hr DAILY@1800 RYAN Administration Protocol Phenylephrine HCl 20,000 mcg/ 250 mls @ 75 mls/hr 05/15/19 07:30 05/16/19 10: 50 Sodium Chloride IVPB Not Given ASDIR RYAN Protocol 100 MCG/MIN Nicardipine HCl 25 mg/ 250 mls @ 5 mls/hr 05/17/19 20:30 Dextrose IVPB TITR RYAN Protocol 0.5 MG/HR Lactobacillus Acidophilus 1 tab 05/06/19 10:00 05/17/19 09:45 Bacid - PO Not Given DAILY RYAN Lamivudine 100 mg 05/04/19 10:00 05/17/19 09:45 Epivir Oral Solution - PO Not Given DAILY [facility] Magnesium Chloride 64 mg 05/09/19 11:30 05/17/19 09:49 Slow-Mag - PO Not Given DAILY [facility] Pantoprazole Sodium 40 mg 05/18/19 10:00 Protonix Iv IVPUSH DAILY [facility] Valacyclovir HCl 500 mg 05/12/19 10:00 05/17/19 09:49 Valtrex - PO Not Given DAILY [facility] Impression: Acute hypoxic respiratory failure Intubated Off pressors Non responsive Hypertensive AML Sepsis Thrombocytopenia Anemia Plan: current critical care management.
[2019-05-17] MEDS: NICARDIPINE 25 MG in DEXTROSE 5%-WATER - 240 ML IVPB SCH (21:38)
[2019-05-18 06:20] LABS: BASO % 0.6 % (0-2.0); EOS % 1.2 % (0-4.5); HEMATOCRIT 28.9 % (32.4-45.2); HEMOGLOBIN 10.1 GM/dL (10.7-15.3); LYMPH % 40.8 % (8-40); MCH 30.7 pg (25.7-33.7); MCHC 34.7 g/dl (32.0-36.0); MEAN CELL VOLUME 88.4 fl (80-96); MONO % 20.8 % (3.8-10.2); NEUT % 36.6 % (42.8-82.8); RBC 3.28 M/mm3 (3.60-5.2); RDW 15.4 % (11.6-15.6); WHITE BLOOD COUNT 10.3 K/mm3 (4.0-10.0)
[2019-05-18 06:27] LABS: PLATELET COUNT 26 K/MM3 (134-434)
[2019-05-18 06:49] LABS: ALBUMIN 2.8 g/dl (3.4-5.0); BILIRUBIN,TOTAL 1.4 mg/dL (0.2-1); BLOOD UREA NITROGEN 53.9 mg/dL (7-18); CALCIUM 9.9 mg/dL (8.5-10.1); CREATININE 1.3 mg/dL (0.55-1.3); MAGNESIUM 2.3 mg/dL (1.8-2.4); PHOSPHOROUS 2.9 mg/dL (2.5-4.9); POTASSIUM 3.9 mmol/L (3.5-5.1); TOT PROT 5.8 g/dl (6.4-8.2)
--- NOTE | 2019-05-18 07:11 | PN ---
Progress Note, Physician Chief Complaint: intubated; un responsive; febrile meds consults and tests reviewed - Current Medication List Current Medications: Active Medications Acetaminophen (Ofirmev Injection -) 1,000 mg IVPB Q6H PRN PRN Reason: FEVER Last Admin: 05/17/19 13:35 Dose: 1,000 mg Allopurinol (Zyloprim -) 300 mg PO DAILY [facility] Last Admin: 05/17/19 09:49 Dose: Not Given IV Flush (Angelina-Cath Flush) 10 ml IVPUSH PRN PRN PRN Reason: protocol, maintain patency Last Admin: 05/15/19 05:54 Dose: 10 ml Ertapenem 1 gm/ Sodium (Chloride) 50 mls @ 100 mls/hr IVPB DAILY [facility] Last Admin: 05/17/19 09:48 Dose: 100 mls/hr Daptomycin 300 mg/ Sodium (Chloride) 50 mls @ 50 mls/hr IVPB DAILY@1800 RYAN; Protocol Last Admin: 05/17/19 17:25 Dose: 50 mls/hr Phenylephrine HCl 20,000 mcg/ (Sodium Chloride) 250 mls @ 75 mls/hr IVPB ASDIR RYAN; Protocol Last Admin: 05/16/19 10:50 Dose: Not Given Nicardipine HCl 25 mg/ (Dextrose) 250 mls @ 5 mls/hr IVPB TITR RYAN; Protocol Last Admin: 05/17/19 21:38 Dose: 0.5 mg/hr, 5 mls/hr Lactobacillus Acidophilus (Bacid -) 1 tab PO DAILY [facility] Last Admin: 05/17/19 09:45 Dose: Not Given Lamivudine (Epivir Oral Solution -) 100 mg PO DAILY [facility] Last Admin: 05/17/19 09:45 Dose: Not Given Magnesium Chloride (Slow-Mag -) 64 mg PO DAILY [facility] Last Admin: 05/17/19 09:49 Dose: Not Given Pantoprazole Sodium (Protonix Iv) 40 mg IVPUSH DAILY [facility] Valacyclovir HCl (Valtrex -) 500 mg PO DAILY [facility] Last Admin: 05/17/19 09:49 Dose: Not Given - Objective Vital Signs: Vital Signs Temperature 102.5 F H 05/18/19 05:00 Pulse Rate 81 05/18/19 06:00 Respiratory Rate 18 05/18/19 06:00 Blood Pressure 154/65 05/18/19 06:00 O2 Sat by Pulse Oximetry (%) 100 05/17/19 08:56 Constitutional: Yes: Other (unresponsive) HENT: Yes: Atraumatic Neck: Yes: Supple Cardiovascular: Yes: Regular Rate and Rhythm Respiratory: Yes: Diminished Gastrointestinal: Yes: Soft. No: Tenderness Genitourinary: No: Hematuria Musculoskeletal: No: Joint Stiffness, Joint Swelling Extremities: No: Cold, Cool, Cyanosis Edema: No Integumentary: No: Rash, Venous Stasis Changes Neurological: No: Alert Psychiatric: No: Alert, Agitated Labs: CBC, BMP 05/18/19 05:15 05/18/19 05:15 INR, PTT INR 1.17 (0.83-1.09) H 05/17/19 17:00 Fibrinogen 350.0 mg/dL (238-498) 05/17/19 17:00 - ....Imaging Chest X-ray: Report Reviewed Other: Report Reviewed Assessment/Plan Patient is a 73 year old lady with a significant pmh of CLL, CHF, HTN, HBV admitted with fever. h/o UTis renal stones, and cellulitis; h/o UTI ESBL, sepsis , ARF/CRF, CLL and acute leukemia severe anemia s/p PRBC sp PLT PNA fever, leukemia with blastic transformation, respiratory failure; mec ventilation support in ICU heme ONC f/u; Transfuse Monodonor PLT and PRBCs as needed; f/u labs; sepsis on IV ATB broad spectrum per ID, f/u cultures; CXR low UO increased creatinine - Hen[place] in, IVF; renal f/u DVT pfx - TEDs / SCDs; not on sq heparin or AC; falls PFX d.w pt and staff - prognosis guarded; t time 35 min; called daughter
[2019-05-18] MEDS ORDERED: PT OWN MED DRAWER 7, Y5N ONE ×2 (09:07→11:16)
[2019-05-18] MEDS: PANTOPRAZOLE SODIUM 40 MG VIAL IVPUSH SCH (09:13)
[2019-05-18] MEDS: lamiVUDine 10 MG/1 ML BULK BOTTLE PO SCH (09:13)
[2019-05-18] MEDS: LACTOBACILLUS ACIDOPHILUS 1 TABLET PO SCH (09:13)
[2019-05-18] MEDS: valACYclovir HCL 500 MG TABLET (FP) PO SCH (09:14)
[2019-05-18] MEDS: ALLOPURINOL 300 MG TABLET (FP) PO SCH (09:14)
[2019-05-18] MEDS: MAGNESIUM CL 64 MG TABLET.SA PO SCH (09:14)
[2019-05-18 09:54] LABS: ANISOCYTOSIS 0; MACROCYTOSIS 0; PLATELET ESTIMATE DECREASED
[2019-05-18] MEDS: ERTAPENEM SODIUM 1 GM in SODIUM CHLORIDE 50 ML IVPB SCH (11:24)
[2019-05-18] MEDS ORDERED: MULTIVIT INJECTION ADULT 10 ML in AMINO ACIDS 4.25%/D5W 1,000 ML IV SCH (12:00)
[2019-05-18] MEDS ORDERED: AMINO ACIDS 4.25%/D5W 1,000 ML IV SCH (12:05)
[2019-05-18] MEDS ORDERED: MULTIVIT INJ. ADULT COMBO WITH VIT K 1 COMBO 10 ML VIAL IV SCH (12:15)
--- NOTE | 2019-05-18 12:15 | PN ---
Teaching Attending Note Name of Resident: Neymar Leo ATTENDING PHYSICIAN STATEMENT I saw and evaluated the patient. I reviewed the resident's note and discussed the case with the resident. I agree with the resident's findings and plan as documented. SUBJECTIVE: Pt seen and examined in the ICU. Remains intubated, poorly responsive off sedation. Grimaces to noxious stimuli. Febrile overnight. CXR showing progressive infiltrates. OBJECTIVE: Vital Signs Period Temp Pulse Resp BP Sys/Borjas Pulse Ox Last 24 Hr 97.5 F-102.5 F 60-82 15-18 140-172/65-81 91-93 Intake & Output 05/15/19 05/16/19 05/17/19 05/18/19 23:59 23:59 23:59 23:59 Intake Total 3575 2509 1160 150 Output Total 511 805 3463 400 Balance 3025 2259 -570 -250 Weight 53.977 kg 54.063 kg Gen: intubated, poorly responsive Heart: RRR Lung: scattered rhonchi Abd: soft, nontender Ext: + edema CBC, BMP 05/18/19 05:15 05/18/19 05:15 Active Medications Acetaminophen (Ofirmev Injection -) 1,000 mg IVPB Q6H PRN PRN Reason: FEVER Last Admin: 05/17/19 13:35 Dose: 1,000 mg Allopurinol (Zyloprim -) 300 mg PO DAILY RYAN Last Admin: 05/18/19 09:14 Dose: Not Given IV Flush (Angelina-Cath Flush) 10 ml IVPUSH PRN PRN PRN Reason: protocol, maintain patency Last Admin: 05/15/19 05:54 Dose: 10 ml Ertapenem 1 gm/ Sodium (Chloride) 50 mls @ 100 mls/hr IVPB DAILY RYAN Last Admin: 05/18/19 11:24 Dose: 100 mls/hr Daptomycin 300 mg/ Sodium (Chloride) 50 mls @ 50 mls/hr IVPB DAILY@1800 RYAN; Protocol Last Admin: 05/17/19 17:25 Dose: 50 mls/hr Nicardipine HCl 25 mg/ (Dextrose) 250 mls @ 5 mls/hr IVPB TITR RYAN; Protocol Last Titration: 05/18/19 07:05 Dose: 0 mg/hr, 0 mls/hr Amino Acids (Clinimix -) 1,000 mls @ 42 mls/hr IV Q24H [facility] Lactobacillus Acidophilus (Bacid -) 1 tab PO DAILY [facility] Last Admin: 05/18/19 09:13 Dose: Not Given Lamivudine (Epivir Oral Solution -) 100 mg PO DAILY [facility] Last Admin: 05/18/19 09:13 Dose: Not Given Magnesium Chloride (Slow-Mag -) 64 mg PO DAILY [facility] Last Admin: 05/18/19 09:14 Dose: Not Given Multivitamins/Minerals (Infuvite Adult -) 10 ml IV DAILY [facility] Pantoprazole Sodium (Protonix Iv) 40 mg IVPUSH DAILY [facility] Last Admin: 05/18/19 09:13 Dose: 40 mg Valacyclovir HCl (Valtrex -) 500 mg PO DAILY [facility] Last Admin: 05/18/19 09:14 Dose: Not Given ASSESSMENT AND PLAN: Acute Hypoxic Respiratory Failure Pneumonia likely Aspiration UTI Septic Shock Acute on Chronic Renal Failure AML Thrombocytopenia/Anemia Hypernatremia - continue antibiotics - f/u cultures - monitor CBC - transfuse as needed - free water replacement - off pressors, maintain MAP >65 - hold all sedation to assess mental status - spontaneous breathing trials as tolerated - DVT/GI prophylaxis - continue ICU montioring critical care time spent in reviewing chart, evaluating patient and formulating plan 35 min
[2019-05-18] MEDS: ACETAMINOPHEN 1000 MG/100 ML VIAL (NON FORMULARY) IVPB PRN (12:48)
[2019-05-18] MEDS ORDERED: DEXTROSE 5%-WATER - 1,000 ML IV SCH (13:00)
--- NOTE | 2019-05-18 13:07 | PN ---
Physical Exam: SUBJECTIVE: Patient seen and examined O/N: started cardene gtt for HTN. Tmax 102.5F Intubated and not alert, off sedation OBJECTIVE: Vital Signs Period Temp Pulse Resp BP Sys/Borjas Pulse Ox Last 24 Hr 97.5 F-102.5 F 60-82 14-18 136-172/65-81 91-93 GENERAL: sedated on midazolam, intubated HEAD: NC/AT EYES: sclera anicteric, conjunctiva clear. No ptosis. ENT: Ears normal, nares patent, dried blood in mouth. ETT at 18cm at the lips NECK: Trachea midline, full range of motion, supple. LUNGS: Breath sounds equal, mildly coarse bilaterally, no wheezes, no crackles. Vent 400, 14, 5, 40% HEART: Regular rate and rhythm, S1, S2 without murmur, rub or gallop. Right upper chest with chemoport ABDOMEN: Soft, nontender, nondistended, normoactive bowel sounds, no guarding, no rebound. EXTREMITIES: 2+ pulses, warm, well-perfused, pitting edema to BUE, ptechiae to BUE NEUROLOGICAL: off sedation, not responding to sternal rub. Pupils responding to light SKIN: Warm, dry, ptechiae at BUE Laboratory Results - last 24 hr 05/14/19 05/17/19 05/17/19 09:35 17:00 17:00 WBC 12.3 H RBC 3.13 L Hgb 9.5 L Hct 28.1 L MCV 89.6 MCH 30.2 MCHC 33.7 RDW 15.7 H Plt Count 47 L D MPV 8.9 Absolute Neuts (auto) 4.8 Total Counted 100 Neutrophils % 38.6 L Neutrophils % (Manual) 29.0 L Band Neutrophils % 9.0 Lymphocytes % 33.8 Lymphocytes % (Manual) 24.0 Monocytes % 23.3 H Monocytes % (Manual) 21 H Eosinophils % 2.2 Eosinophils % (Manual) 4.0 Basophils % 2.1 H D Basophils % (Manual) Myelocytes % (Man) 4 H D Promyelocytes % (Man) Blast Cells % (Manual) Nucleated RBC % 0 Metamyelocytes 9 H D Hypochromia Platelet Estimate Decreased Platelet Comment No clumping noted Polychromasia Poikilocytosis Anisocytosis Microcytosis Macrocytosis PT with INR 13.80 H INR 1.17 H Fibrinogen Sodium Potassium Chloride Carbon Dioxide Anion Gap BUN Creatinine Est GFR (CKD-EPI)AfAm Est GFR (CKD-EPI)NonAf Random Glucose Calcium Phosphorus Magnesium Total Bilirubin AST ALT Alkaline Phosphatase Total Protein Albumin Crossmatch See Detail 05/17/19 05/18/19 05/18/19 17:00 05:15 05:15 WBC 10.3 H RBC 3.28 L Hgb 10.1 L Hct 28.9 L MCV 88.4 MCH 30.7 MCHC 34.7 RDW 15.4 Plt Count 26 L* D MPV 9.0 Absolute Neuts (auto) 3.8 Total Counted Neutrophils % 36.6 L Neutrophils % (Manual) 32.7 L Band Neutrophils % 0.0 Lymphocytes % 40.8 H D Lymphocytes % (Manual) 29.7 D Monocytes % 20.8 H Monocytes % (Manual) 15 H Eosinophils % 1.2 Eosinophils % (Manual) 2.0 Basophils % 0.6 Basophils % (Manual) 0.0 Myelocytes % (Man) 2 D Promyelocytes % (Man) 0 D Blast Cells % (Manual) 0 D Nucleated RBC % 0 Metamyelocytes 3 H D Hypochromia 0 Platelet Estimate Decreased Platelet Comment Polychromasia 0 Poikilocytosis 0 Anisocytosis 0 Microcytosis 0 Macrocytosis 0 PT with INR INR Fibrinogen 350.0 Sodium 153 H Potassium 3.9 Chloride 120 H Carbon Dioxide 28 Anion Gap 5 L BUN 53.9 H Creatinine 1.3 Est GFR (CKD-EPI)AfAm 47.13 Est GFR (CKD-EPI)NonAf 40.67 Random Glucose 120 H Calcium 9.9 Phosphorus 2.9 Magnesium 2.3 Total Bilirubin 1.4 H AST 41 H ALT 27 Alkaline Phosphatase 126 H Total Protein 5.8 L Albumin 2.8 L Crossmatch Active Medications Generic Name Dose Route Start Last Admin Trade Name Freq PRN Reason Stop Dose Admin Allopurinol 300 mg 05/12/19 10:00 05/18/19 09:14 Zyloprim - PO Not Given DAILY RYAN IV Flush 10 ml 05/14/19 23:31 05/15/19 05:54 Angelina-Cath Flush IVPUSH 10 ml PRN PRN Administration protocol, maintain patency Ertapenem 1 gm/ Sodium 50 mls @ 100 mls/hr 05/09/19 16:30 05/18/19 11:24 Chloride IVPB 100 mls/hr DAILY RYAN Administration Daptomycin 300 mg/ Sodium 50 mls @ 50 mls/hr 05/09/19 18:00 05/17/19 17:25 Chloride IVPB 50 mls/hr DAILY@1800 RYAN Administration Protocol Nicardipine HCl 25 mg/ 250 mls @ 5 mls/hr 05/17/19 20:30 05/18/19 07:05 Dextrose IVPB 0 mg/hr TITR RYAN 0 mls/hr Titration Protocol 0.5 MG/HR Amino Acids 1,000 mls @ 42 mls/hr 05/18/19 12:05 Clinimix - IV Q24H RYAN Dextrose 1,000 mls @ 83 mls/hr 05/18/19 13:00 D5w - IV .Q12H3M [facility] Lactobacillus Acidophilus 1 tab 05/06/19 10:00 05/18/19 09:13 Bacid - PO Not Given DAILY [facility] Lamivudine 100 mg 05/04/19 10:00 05/18/19 09:13 Epivir Oral Solution - PO Not Given DAILY [facility] Magnesium Chloride 64 mg 05/09/19 11:30 05/18/19 09:14 Slow-Mag - PO Not Given DAILY [facility] Multivitamins/Minerals 10 ml 05/18/19 12:15 Infuvite Adult - IV DAILY [facility] Pantoprazole Sodium 40 mg 05/18/19 10:00 05/18/19 09:13 Protonix Iv IVPUSH 40 mg DAILY RYAN Administration Valacyclovir HCl 500 mg 05/12/19 10:00 05/18/19 09:14 Valtrex - PO Not Given DAILY [facility] ASSESSMENT/PLAN: 73F w/ pmh of HTN, HLD, CHF, HFpEF, dementia, HBV, MDS, CLL --> AML presented from Rehab facility with complaint of fever; admitted to [facility] for ARF and severe anemia. Fevers thought 2/2 to infections vs AML-related. UCX grew citrobacter and E faecalis, BCX grew staph. Recurrent fevers; on daptomycin, ertapenem, lamivudine, valacyclovir. Intubated on due to lethargy with inability to protect airway. NEURO # Lethargy --likely 2/2 sepsis and hospital benzodiazapenes # Dementia > CTH: no acute process - off sedation, continued mental status checks CARDIO # HFpEF --not in excerbation # HTN > EKG(05/03/19): NSR, QTc 427 - BP control: -- BP 160s/90s prompted cardene gtt; resolving -- avoid hydralazine d/t risk of agranulocytosis -- okay for BB, as long as not bradycardiac RESPIR # Intubated - Vent 400ml, 14, PEEP 5, 40% - ETT respositioned to 22cm at lips GI - NPO - Clinimix RENAL #EBER > Cr(baseline ~1): 2.3 -> 1.3; BUN 60.6 -> 53.9 - NephroDuyen) consulted: --likely EBER 2/2 sepsis; may improved with hemodynamics --holding IVF ID/HEME # Sepsis 2/2 to UTI with bacteremia, high fevers # Thrombocytopenia # Anemia # AML # recurrent fevers --likely 2/2 to infection and/or AML > BCX(05/03/19): Staph Auricularis, Staphy Epidermidis, Staph Coag > UCX(05/03, 05/04): ESBL Ecoli, E Faecalis; Citrobacter > repeat BCX, UCX, UA, Sputum Cx --pending - abx regimen: Ertapenem and daptomycin - platelet; will maintain goals plt >20k - pRBC as need to keep Hgb >7 FEN - heplock - NPO - holding off on NGT until plt improved to >50k PPX - pantoprazole - SCDs as pt has low plt Dispo: will continue to monitor pending further workup for acute change in status - FULL CODE Visit type - Emergency Visit Emergency Visit: No - New Patient This patient is new to me today: No - Critical Care Critical Care patient: Yes Total Critical Care Time (in minutes): 35 Critical Care Statement: The care of this patient involved high complexity decision making to prevent further life threatening deterioration of the patient 's condition and/or to evaluate & treat vital organ system(s) failure or risk of failure. ATTENDING PHYSICIAN STATEMENT I saw and evaluated the patient. I reviewed the resident's note and discussed the case with the resident. I agree with the resident's findings and plan as documented. SUBJECTIVE: OBJECTIVE: ASSESSMENT AND PLAN:
--- NOTE | 2019-05-18 16:56 | PN ---
Progress Note, Physician History of Present Illness: Pt seen and examined at bedside. She remains in the ICU. She remains intubated. - Current Medication List Current Medications: Active Medications Allopurinol (Zyloprim -) 300 mg PO DAILY [facility] Last Admin: 05/18/19 09:14 Dose: Not Given IV Flush (Angelina-Cath Flush) 10 ml IVPUSH PRN PRN PRN Reason: protocol, maintain patency Last Admin: 05/15/19 05:54 Dose: 10 ml Ertapenem 1 gm/ Sodium (Chloride) 50 mls @ 100 mls/hr IVPB DAILY [facility] Last Admin: 05/18/19 11:24 Dose: 100 mls/hr Daptomycin 300 mg/ Sodium (Chloride) 50 mls @ 50 mls/hr IVPB DAILY@1800 [facility]; Protocol Last Admin: 05/17/19 17:25 Dose: 50 mls/hr Nicardipine HCl 25 mg/ (Dextrose) 250 mls @ 5 mls/hr IVPB TITR [facility]; Protocol Last Titration: 05/18/19 07:05 Dose: 0 mg/hr, 0 mls/hr Amino Acids (Clinimix -) 1,000 mls @ 42 mls/hr IV Q24H [facility] Last Admin: 05/18/19 15:08 Dose: 42 mls/hr Dextrose (D5w -) 1,000 mls @ 83 mls/hr IV ASDIR [facility] Last Admin: 05/18/19 15:09 Dose: Not Given Lactobacillus Acidophilus (Bacid -) 1 tab PO DAILY [facility] Last Admin: 05/18/19 09:13 Dose: Not Given Lamivudine (Epivir Oral Solution -) 100 mg PO DAILY [facility] Last Admin: 05/18/19 09:13 Dose: Not Given Magnesium Chloride (Slow-Mag -) 64 mg PO DAILY [facility] Last Admin: 05/18/19 09:14 Dose: Not Given Multivitamins/Minerals (Infuvite Adult -) 10 ml IV DAILY [facility] Last Admin: 05/18/19 15:09 Dose: 10 ml Pantoprazole Sodium (Protonix Iv) 40 mg IVPUSH DAILY [facility] Last Admin: 05/18/19 09:13 Dose: 40 mg Valacyclovir HCl (Valtrex -) 500 mg PO DAILY [facility] Last Admin: 05/18/19 09:14 Dose: Not Given - Objective Vital Signs: Vital Signs Temperature 100.9 F H 02/20/20 13:21 Pulse Rate 74 05/18/19 13:21 Respiratory Rate 18 05/18/19 13:21 Blood Pressure 135/69 05/18/19 13:21 O2 Sat by Pulse Oximetry (%) 93 L 05/18/19 09:00 Constitutional: Yes: Calm Eyes: Yes: Conjunctiva Clear HENT: Yes: Atraumatic Neck: Yes: Supple Cardiovascular: Yes: S1, S2 Respiratory: Yes: Mechanically Ventilated Gastrointestinal: Yes: Soft Genitourinary: Yes: Henley Present Musculoskeletal: Yes: Muscle Weakness Edema: Yes Edema: LLE: Trace, RLE: Trace Neurological: Yes: Lethargy Labs: CBC, BMP 05/18/19 05:15 05/18/19 05:15 INR, PTT INR 1.17 (0.83-1.09) H 05/17/19 17:00 Fibrinogen 350.0 mg/dL (238-498) 05/17/19 17:00 - ....Imaging Chest X-ray: Report Reviewed Assessment/Plan Current Medications Generic Name Dose Route Start Last Admin Trade Name Freq PRN Reason Stop Dose Admin Allopurinol 300 mg 05/12/19 10:00 05/18/19 09:14 Zyloprim - PO Not Given DAILY [facility] IV Flush 10 ml 05/14/19 23:31 05/15/19 05:54 Angelina-Cath Flush IVPUSH 10 ml PRN PRN Administration protocol, maintain patency Ertapenem 1 gm/ Sodium 50 mls @ 100 mls/hr 05/09/19 16:30 05/18/19 11:24 Chloride IVPB 100 mls/hr DAILY [facility] Administration Daptomycin 300 mg/ Sodium 50 mls @ 50 mls/hr 05/09/19 18:00 05/17/19 17:25 Chloride IVPB 50 mls/hr DAILY@1800 [facility] Administration Protocol Nicardipine HCl 25 mg/ 250 mls @ 5 mls/hr 05/17/19 20:30 05/18/19 07:05 Dextrose IVPB 0 mg/hr TITR RYAN 0 mls/hr Titration Protocol 0.5 MG/HR Amino Acids 1,000 mls @ 42 mls/hr 05/18/19 12:05 05/18/19 15:08 Clinimix - IV 42 mls/hr Q24H [facility] Administration Dextrose 1,000 mls @ 83 mls/hr 05/18/19 13:00 05/18/19 15:09 D5w - IV Not Given ASDIR [facility] Lactobacillus Acidophilus 1 tab 05/06/19 10:00 05/18/19 09:13 Bacid - PO Not Given DAILY [facility] Lamivudine 100 mg 05/04/19 10:00 05/18/19 09:13 Epivir Oral Solution - PO Not Given DAILY [facility] Magnesium Chloride 64 mg 05/09/19 11:30 05/18/19 09:14 Slow-Mag - PO Not Given DAILY [facility] Multivitamins/Minerals 10 ml 05/18/19 12:15 05/18/19 15:09 Infuvite Adult - IV 10 ml DAILY [facility] Administration Pantoprazole Sodium 40 mg 05/18/19 10:00 05/18/19 09:13 Protonix Iv IVPUSH 40 mg DAILY [facility] Administration Valacyclovir HCl 500 mg 05/12/19 10:00 05/18/19 09:14 Valtrex - PO Not Given DAILY [facility] 1. EBER 2. CKD stage 3 3. Chronic hydronephrosis 4. Fevers 5. Acute on chronic anemia 6. Hyponatremia 7. hypernatremia Plan - renal function is improving - resume d5w to help with hypernatremia - hypotension likely contributed to eber - discussed with ICU
[2019-05-18] MEDS: DAPTOMYCIN 300 MG in SODIUM CHLORIDE 50 ML IVPB SCH (17:49)
[2019-05-19 06:00] LABS: ARTERIAL BLD GAS O2 SATURATION 96.7 % (95-98); ARTERIAL BLOOD GAS BASE EXCESS 4.9 meq/l (-2-2); ARTERIAL BLOOD GAS PCO2 39.2 mmHg (35-45); ARTERIAL BLOOD GAS PO2 83.8 mmHg (80-100); ARTERIAL BLOOD GAS pH 7.47 (7.35-7.45)
[2019-05-19 06:01] LABS: ALLENS TEST POSITIVE
--- NOTE | 2019-05-19 06:19 | PN ---
Progress Note, Physician Chief Complaint: ICU intubated unresponsive off sedation on IV Clinimix; IV ATB febrile; cultures negative - Current Medication List Current Medications: Active Medications Allopurinol (Zyloprim -) 300 mg PO DAILY [facility] Last Admin: 05/18/19 09:14 Dose: Not Given IV Flush (Angelina-Cath Flush) 10 ml IVPUSH PRN PRN PRN Reason: protocol, maintain patency Last Admin: 05/15/19 05:54 Dose: 10 ml Ertapenem 1 gm/ Sodium (Chloride) 50 mls @ 100 mls/hr IVPB DAILY [facility] Last Admin: 05/18/19 11:24 Dose: 100 mls/hr Daptomycin 300 mg/ Sodium (Chloride) 50 mls @ 50 mls/hr IVPB DAILY@1800 [facility]; Protocol Last Admin: 05/18/19 17:49 Dose: 50 mls/hr Nicardipine HCl 25 mg/ (Dextrose) 250 mls @ 5 mls/hr IVPB TITR [facility]; Protocol Last Titration: 05/18/19 07:05 Dose: 0 mg/hr, 0 mls/hr Amino Acids (Clinimix -) 1,000 mls @ 84 mls/hr IV Q12H [facility] Lactobacillus Acidophilus (Bacid -) 1 tab PO DAILY [facility] Last Admin: 05/18/19 09:13 Dose: Not Given Lamivudine (Epivir Oral Solution -) 100 mg PO DAILY [facility] Last Admin: 05/18/19 09:13 Dose: Not Given Magnesium Chloride (Slow-Mag -) 64 mg PO DAILY [facility] Last Admin: 05/18/19 09:14 Dose: Not Given Multivitamins/Minerals (Infuvite Adult -) 10 ml IV DAILY [facility] Pantoprazole Sodium (Protonix Iv) 40 mg IVPUSH DAILY [facility] Last Admin: 05/18/19 09:13 Dose: 40 mg Valacyclovir HCl (Valtrex -) 500 mg PO DAILY [facility] Last Admin: 05/18/19 09:14 Dose: Not Given - Objective Vital Signs: Vital Signs Temperature 99.2 F 05/19/19 02:00 Pulse Rate 79 05/19/19 02:00 Respiratory Rate 14 05/19/19 04:45 Blood Pressure 156/74 05/19/19 04:00 O2 Sat by Pulse Oximetry (%) 93 L 05/18/19 09:00 Constitutional: Yes: No Distress HENT: Yes: Atraumatic Neck: Yes: Supple Cardiovascular: Yes: Regular Rate and Rhythm Respiratory: Yes: CTA Bilaterally Gastrointestinal: Yes: Soft Genitourinary: No: Hematuria Musculoskeletal: No: Joint Stiffness, Joint Swelling Extremities: No: Cold, Cool, Cyanosis Edema: No Integumentary: No: Rash Neurological: No: Alert Psychiatric: No: Alert Labs: CBC, BMP 05/18/19 05:15 05/18/19 05:15 INR, PTT INR 1.17 (0.83-1.09) H 05/17/19 17:00 Fibrinogen 350.0 mg/dL (238-498) 05/17/19 17:00 - ....Imaging Other: Report Reviewed Assessment/Plan Patient is a 73 year old lady with a significant pmh of CLL, CHF, HTN, HBV admitted with fever. h/o UTis renal stones, and cellulitis; h/o UTI ESBL, sepsis , ARF/CRF, CLL and acute leukemia severe anemia s/p PRBC sp PLT PNA fever, leukemia with blastic transformation, respiratory failure; mec ventilation support in ICU heme ONC f/u; Transfuse Monodonor PLT and PRBCs as needed; f/u labs; sepsis on IV ATB broad spectrum per ID, f/u cultures; CXR low UO increased creatinine - Henley in, IVF; renal f/u DVT pfx - TEDs / SCDs; not on sq heparin or AC; falls PFX d/w ICU team d.w pt and staff - prognosis guarded; t time 35 min; called daughter Dayana
[2019-05-19 07:12] LABS: INR 1.25 (0.83-1.09); PROTHROMBIN TIME (PATIENT) 14.8 SEC (9.7-13.0)
[2019-05-19 07:15] LABS: ACTIVATED PTT 27.9 SECONDS (25.2-36.5)
[2019-05-19 07:23] LABS: ALBUMIN 2.8 g/dl (3.4-5.0); BILIRUBIN,TOTAL 1.3 mg/dL (0.2-1); BLOOD UREA NITROGEN 52.7 mg/dL (7-18); CALCIUM 9.6 mg/dL (8.5-10.1); CREATININE 1.3 mg/dL (0.55-1.3); POTASSIUM 3.8 mmol/L (3.5-5.1); TOT PROT 5.7 g/dl (6.4-8.2)
[2019-05-19 07:50] LABS: BASO % 0.5 % (0-2.0); EOS % 0.7 % (0-4.5); HEMATOCRIT 28.5 % (32.4-45.2); HEMOGLOBIN 9.7 GM/dL (10.7-15.3); LYMPH % 47.6 % (8-40); MCH 30.6 pg (25.7-33.7); MCHC 33.9 g/dl (32.0-36.0); MEAN CELL VOLUME 90.2 fl (80-96); MEAN PLT VOLUME 9.3 fl (7.5-11.1); NEUT % 24.2 % (42.8-82.8); RBC 3.16 M/mm3 (3.60-5.2); RDW 15.6 % (11.6-15.6); WHITE BLOOD COUNT 7.5 K/mm3 (4.0-10.0)
[2019-05-19 07:54] LABS: PLATELET COUNT 11 K/MM3 (134-434)
[2019-05-19] MEDS ORDERED: ACETAMINOPHEN 1000 MG/100 ML VIAL (NON FORMULARY) IVPB ONE (08:13)
[2019-05-19] MEDS ORDERED: PT OWN MED DRAWER 7, Y5N ONE (09:26)
--- NOTE | 2019-05-19 09:27 | PN ---
Progress Note, Physician - Current Medication List Current Medications: Active Medications Allopurinol (Zyloprim -) 300 mg PO DAILY [facility] Last Admin: 05/18/19 09:14 Dose: Not Given IV Flush (Angelina-Cath Flush) 10 ml IVPUSH PRN PRN PRN Reason: protocol, maintain patency Last Admin: 05/15/19 05:54 Dose: 10 ml Ertapenem 1 gm/ Sodium (Chloride) 50 mls @ 100 mls/hr IVPB DAILY [facility] Last Admin: 05/18/19 11:24 Dose: 100 mls/hr Daptomycin 300 mg/ Sodium (Chloride) 50 mls @ 50 mls/hr IVPB DAILY@1800 [facility]; Protocol Last Admin: 05/18/19 17:49 Dose: 50 mls/hr Nicardipine HCl 25 mg/ (Dextrose) 250 mls @ 5 mls/hr IVPB TITR [facility]; Protocol Last Titration: 05/18/19 07:05 Dose: 0 mg/hr, 0 mls/hr Amino Acids (Clinimix -) 1,000 mls @ 84 mls/hr IV Q12H [facility] Lactobacillus Acidophilus (Bacid -) 1 tab PO DAILY [facility] Last Admin: 05/18/19 09:13 Dose: Not Given Lamivudine (Epivir Oral Solution -) 100 mg PO DAILY [facility] Last Admin: 05/18/19 09:13 Dose: Not Given Magnesium Chloride (Slow-Mag -) 64 mg PO DAILY [facility] Last Admin: 05/18/19 09:14 Dose: Not Given Multivitamins/Minerals (Infuvite Adult -) 10 ml IV DAILY [facility] Pantoprazole Sodium (Protonix Iv) 40 mg IVPUSH DAILY [facility] Last Admin: 05/18/19 09:13 Dose: 40 mg Valacyclovir HCl (Valtrex -) 500 mg PO DAILY [facility] Last Admin: 05/18/19 09:14 Dose: Not Given - Objective Vital Signs: Vital Signs Temperature 99.2 F 05/19/19 02:00 Pulse Rate 84 05/19/19 08:11 Respiratory Rate 19 05/19/19 08:11 Blood Pressure 145/75 05/19/19 07:41 O2 Sat by Pulse Oximetry (%) 95 05/19/19 08:11 Labs: CBC, BMP 05/19/19 05:45 05/19/19 05:45 INR, PTT INR 1.25 (0.83-1.09) H 05/19/19 05:45 Fibrinogen 259.0 mg/dL (238-498) 05/19/19 05:45 Problem List - Problems (1) EBER (acute kidney injury) Code(s): N17.9 - ACUTE KIDNEY FAILURE, UNSPECIFIED (2) Anemia requiring transfusions Code(s): D64.9 - ANEMIA, UNSPECIFIED (3) UTI (urinary tract infection) Code(s): N39.0 - URINARY TRACT INFECTION, SITE NOT SPECIFIED Qualifiers: Urinary tract infection type: acute cystitis Hematuria presence: without hematuria Qualified Code(s): N30.00 - Acute cystitis without hematuria (4) CKD (chronic kidney disease) Code(s): N18.9 - CHRONIC KIDNEY DISEASE, UNSPECIFIED (5) CLL (chronic lymphocytic leukemia) Code(s): C91.10 - CHRONIC LYMPHOCYTIC LEUK OF B-CELL TYPE NOT ACHIEVE REMIS (6) Hepatitis B Code(s): B19.10 - UNSPECIFIED VIRAL HEPATITIS B WITHOUT HEPATIC COMA (7) Hydronephrosis Code(s): N13.30 - UNSPECIFIED HYDRONEPHROSIS
[2019-05-19] MEDS: ERTAPENEM SODIUM 1 GM in SODIUM CHLORIDE 50 ML IVPB SCH (09:56)
[2019-05-19] MEDS: NICARDIPINE 25 MG in DEXTROSE 5%-WATER - 240 ML IVPB SCH (09:58)
[2019-05-19 10:18] LABS: ANISOCYTOSIS 0; MACROCYTOSIS 0; PLATELET ESTIMATE DECREASED
[2019-05-19] MEDS ORDERED: PORTA CATH FLUSH 10 ML IVPUSH ONE (10:29)
[2019-05-19] MEDS: LACTOBACILLUS ACIDOPHILUS 1 TABLET PO SCH (10:32)
[2019-05-19] MEDS: lamiVUDine 10 MG/1 ML BULK BOTTLE PO SCH (10:32)
[2019-05-19] MEDS: MAGNESIUM CL 64 MG TABLET.SA PO SCH (10:32)
[2019-05-19] MEDS: valACYclovir HCL 500 MG TABLET (FP) PO SCH (10:32)
[2019-05-19] MEDS: ALLOPURINOL 300 MG TABLET (FP) PO SCH (10:33)
[2019-05-19] MEDS: PANTOPRAZOLE SODIUM 40 MG VIAL IVPUSH SCH (11:00)
[2019-05-19] MEDS: AMINO ACIDS 4.25%/D5W 1,000 ML IV SCH (12:56)
[2019-05-19] MEDS: MULTIVIT INJ. ADULT COMBO WITH VIT K 1 COMBO 10 ML VIAL IV SCH (12:59)
--- NOTE | 2019-05-19 13:25 | PN ---
Physical Exam: SUBJECTIVE: Patient seen and examined Na remains elevated. Continues to have no activity off sedation. No acute overnight events. OBJECTIVE: Vital Signs Period Temp Pulse Resp BP Sys/Borjas Pulse Ox Last 24 Hr 99.2 F-102.7 F 74-88 14-22 124-156/62-93 95-95 GENERAL: sedated on midazolam, intubated HEAD: NC/AT EYES: sclera anicteric, conjunctiva clear. No ptosis. ENT: Ears normal, nares patent, dried blood in mouth. ETT at 18cm at the lips NECK: Trachea midline, full range of motion, supple. LUNGS: Breath sounds equal, mildly coarse bilaterally, no wheezes, no crackles. Vent 400, 14, 5, 40% HEART: Regular rate and rhythm, S1, S2 without murmur, rub or gallop. Right upper chest with chemoport ABDOMEN: Soft, nontender, nondistended, normoactive bowel sounds, no guarding, no rebound. EXTREMITIES: 2+ pulses, warm, well-perfused, pitting edema to BUE, ptechiae to BUE NEUROLOGICAL: off sedation, not responding to sternal rub. Pupils responding to light SKIN: Warm, dry, ptechiae at BUE Laboratory Results - last 24 hr 05/15/19 05/19/19 05/19/19 16:00 05:30 05:45 WBC 7.5 RBC 3.16 L Hgb 9.7 L Hct 28.5 L MCV 90.2 MCH 30.6 MCHC 33.9 RDW 15.6 Plt Count 11 L* D MPV 9.3 Absolute Neuts (auto) 1.8 Neutrophils % 24.2 L D Neutrophils % (Manual) 15.5 L Band Neutrophils % 0.0 Lymphocytes % 47.6 H Lymphocytes % (Manual) 56.3 H D Monocytes % 27.0 H Monocytes % (Manual) 13 H Eosinophils % 0.7 Eosinophils % (Manual) 1.0 Basophils % 0.5 Basophils % (Manual) 0.0 Myelocytes % (Man) 3 H D Promyelocytes % (Man) 1 D Blast Cells % (Manual) 0 Nucleated RBC % 0 Metamyelocytes 4 H D Hypochromia 0 Platelet Estimate Decreased Polychromasia 0 Poikilocytosis 0 Anisocytosis 0 Microcytosis 0 Macrocytosis 0 PT with INR INR PTT (Actin FS) Fibrinogen Anticoagulation Therapy No Result Required. Puncture Site Right radial ABG pH 7.47 H ABG pCO2 at Pt Temp 39.2 ABG pO2 at Pt Temp 83.8 ABG HCO3 28.4 H ABG O2 Sat (Measured) 96.7 ABG O2 Content 12.4 ABG Base Excess 4.9 H Jerardo Test Positive O2 Delivery Device No Result Required. Oxygen Flow Rate 40% Vent Mode A/c Vent Rate 14 Mechanical Rate No Result Required. PEEP 5.0 Pressure Support Vent 400 Sodium Potassium Chloride Carbon Dioxide Anion Gap BUN Creatinine Est GFR (CKD-EPI)AfAm Est GFR (CKD-EPI)NonAf Random Glucose Calcium Total Bilirubin AST ALT Alkaline Phosphatase Total Protein Albumin Blood Type O NEGATIVE Antibody Screen Negative Crossmatch See Detail 05/19/19 05/19/19 05/19/19 05:45 05:45 05:45 WBC RBC Hgb Hct MCV MCH MCHC RDW Plt Count MPV Absolute Neuts (auto) Neutrophils % Neutrophils % (Manual) Band Neutrophils % Lymphocytes % Lymphocytes % (Manual) Monocytes % Monocytes % (Manual) Eosinophils % Eosinophils % (Manual) Basophils % Basophils % (Manual) Myelocytes % (Man) Promyelocytes % (Man) Blast Cells % (Manual) Nucleated RBC % Metamyelocytes Hypochromia Platelet Estimate Polychromasia Poikilocytosis Anisocytosis Microcytosis Macrocytosis PT with INR 14.80 H INR 1.25 H PTT (Actin FS) 27.9 Fibrinogen 259.0 Anticoagulation Therapy Puncture Site ABG pH ABG pCO2 at Pt Temp ABG pO2 at Pt Temp ABG HCO3 ABG O2 Sat (Measured) ABG O2 Content ABG Base Excess Jerardo Test O2 Delivery Device Oxygen Flow Rate Vent Mode Vent Rate Mechanical Rate PEEP Pressure Support Vent Sodium 154 H Potassium 3.8 Chloride 121 H Carbon Dioxide 28 Anion Gap 6 L BUN 52.7 H Creatinine 1.3 Est GFR (CKD-EPI)AfAm 47.13 Est GFR (CKD-EPI)NonAf 40.67 Random Glucose 151 H Calcium 9.6 Total Bilirubin 1.3 H AST 29 ALT 20 Alkaline Phosphatase 105 Total Protein 5.7 L Albumin 2.8 L Blood Type Antibody Screen Crossmatch Active Medications Generic Name Dose Route Start Last Admin Trade Name Freq PRN Reason Stop Dose Admin Allopurinol 300 mg 05/12/19 10:00 05/19/19 10:33 Zyloprim - PO Not Given DAILY [facility] IV Flush 10 ml 05/14/19 23:31 05/15/19 05:54 Angelina-Cath Flush IVPUSH 10 ml PRN PRN Administration protocol, maintain patency Ertapenem 1 gm/ Sodium 50 mls @ 100 mls/hr 05/09/19 16:30 05/19/19 09:56 Chloride IVPB 100 mls/hr DAILY [facility] Administration Daptomycin 300 mg/ Sodium 50 mls @ 50 mls/hr 05/09/19 18:00 05/18/19 17:49 Chloride IVPB 50 mls/hr DAILY@1800 [facility]AN Administration Protocol Nicardipine HCl 25 mg/ 250 mls @ 5 mls/hr 05/17/19 20:30 05/19/19 09:58 Dextrose IVPB Not Given TITR RYAN Protocol 0.5 MG/HR Amino Acids 1,000 mls @ 84 mls/hr 05/18/19 19:00 05/19/19 12:56 Clinimix - IV 84 mls/hr Q12H [facility] Administration Lactobacillus Acidophilus 1 tab 05/06/19 10:00 05/19/19 10:32 Bacid - PO Not Given DAILY [facility] Lamivudine 100 mg 05/04/19 10:00 05/19/19 10:32 Epivir Oral Solution - PO Not Given DAILY [facility] Magnesium Chloride 64 mg 05/09/19 11:30 05/19/19 10:32 Slow-Mag - PO Not Given DAILY [facility] Multivitamins/Minerals 10 ml 05/19/19 10:00 05/19/19 12:59 Infuvite Adult - IV 10 ml DAILY [facility] Administration Pantoprazole Sodium 40 mg 05/18/19 10:00 05/19/19 11:00 Protonix Iv IVPUSH 40 mg DAILY [facility] Administration Valacyclovir HCl 500 mg 05/12/19 10:00 05/19/19 10:32 Valtrex - PO Not Given DAILY [facility] ASSESSMENT/PLAN: 73F w/ pmh of HTN, HLD, CHF, HFpEF, dementia, HBV, MDS, CLL --> AML presented from Rehab facility with complaint of fever; admitted to [facility] for ARF and severe anemia. Fevers thought 2/2 to infections vs AML-related. UCX grew citrobacter and E faecalis, BCX grew staph. Recurrent fevers; on daptomycin, ertapenem, lamivudine, valacyclovir. Intubated on due to lethargy with inability to protect airway. NEURO # Lethargy --likely 2/2 sepsis and hospital benzodiazapenes # Dementia > CTH: no acute process - off sedation and remains unresponsiveness; will continue mental status checks CARDIO # HFpEF --not in excerbation # HTN > EKG(05/03/19): NSR, QTc 427 - BP control: -- BP 160s/90s prompted cardene gtt; resolving -- avoid hydralazine d/t risk of agranulocytosis -- okay for BB, as long as not bradycardiac RESPIR # Intubated - Vent 400ml, 14, PEEP 5, 40% - ETT repositioned to 22cm at lips GI - NPO - Clinimix RENAL #EBER > Cr(baseline ~1): currently improving 2.3 -> 1.3; BUN 60.6 -> 52.7 - NephroDuyen) consulted: --likely EBER 2/2 sepsis; may improved with hemodynamics --will resume d5 pending elevated lyte abnormalities ID/HEME # Sepsis 2/2 to UTI with bacteremia, high fevers # Thrombocytopenia # Anemia # AML # recurrent fevers --likely 2/2 to infection and/or AML > BCX(05/03/19): Staph Auricularis, Staphy Epidermidis, Staph Coag > UCX(05/03, 05/04): ESBL Ecoli, E Faecalis; Citrobacter > repeat BCX, UCX, UA, Sputum Cx --pending - abx regimen: Ertapenem and daptomycin - platelet; will maintain goals plt >20k; transfuse 2 units today - pRBC as need to keep Hgb >7 FEN - heplock - NPO - holding off on NGT until plt improved to >50k PPX - pantoprazole - SCDs as pt has low plt Dispo: will continue to monitor pending further workup for acute change in status - FULL CODE; ongoing GOC discussion with family given tenuous clinical status Visit type - Emergency Visit Emergency Visit: No - New Patient This patient is new to me today: No - Critical Care Critical Care patient: Yes Total Critical Care Time (in minutes): 40 Critical Care Statement: The care of this patient involved high complexity decision making to prevent further life threatening deterioration of the patient 's condition and/or to evaluate & treat vital organ system(s) failure or risk of failure. ATTENDING PHYSICIAN STATEMENT I saw and evaluated the patient. I reviewed the resident's note and discussed the case with the resident. I agree with the resident's findings and plan as documented. SUBJECTIVE: OBJECTIVE: ASSESSMENT AND PLAN:
--- NOTE | 2019-05-19 13:33 | PN ---
Teaching Attending Note Name of Resident: Dante Baig ATTENDING PHYSICIAN STATEMENT I saw and evaluated the patient. I reviewed the resident's note and discussed the case with the resident. I agree with the resident's findings and plan as documented. SUBJECTIVE: Patient seen and examined in the ICU. Remains intubated, poorly responsive off sedation. Grimaces to noxious stimuli. Febrile overnight. CXR showing progressive infiltrates. OBJECTIVE: Vital Signs Period Temp Pulse Resp BP Sys/Borjas Pulse Ox Last 24 Hr 97.5 F-102.5 F 60-82 15-18 140-172/65-81 91-93 Intake & Output 05/15/19 05/16/19 05/17/19 05/18/19 23:59 23:59 23:59 23:59 Intake Total 3575 2509 1160 150 Output Total 242 913 1113 400 Balance 3025 2259 -740 -250 Weight 53.977 kg 54.063 kg Gen: intubated, poorly responsive Heart: RRR Lung: scattered rhonchi Abd: soft, nontender Ext: + edema CBC, BMP 05/18/19 05:15 05/18/19 05:15 Active Medications Acetaminophen (Ofirmev Injection -) 1,000 mg IVPB Q6H PRN PRN Reason: FEVER Last Admin: 05/17/19 13:35 Dose: 1,000 mg Allopurinol (Zyloprim -) 300 mg PO DAILY [facility] Last Admin: 05/18/19 09:14 Dose: Not Given IV Flush (Angelina-Cath Flush) 10 ml IVPUSH PRN PRN PRN Reason: protocol, maintain patency Last Admin: 05/15/19 05:54 Dose: 10 ml Ertapenem 1 gm/ Sodium (Chloride) 50 mls @ 100 mls/hr IVPB DAILY [facility] Last Admin: 05/18/19 11:24 Dose: 100 mls/hr Daptomycin 300 mg/ Sodium (Chloride) 50 mls @ 50 mls/hr IVPB DAILY@1800 R[facility]; Protocol Last Admin: 05/17/19 17:25 Dose: 50 mls/hr Nicardipine HCl 25 mg/ (Dextrose) 250 mls @ 5 mls/hr IVPB TITR RYAN; Protocol Last Titration: 05/18/19 07:05 Dose: 0 mg/hr, 0 mls/hr Amino Acids (Clinimix -) 1,000 mls @ 42 mls/hr IV Q24H [facility] Lactobacillus Acidophilus (Bacid -) 1 tab PO DAILY [facility] Last Admin: 05/18/19 09:13 Dose: Not Given Lamivudine (Epivir Oral Solution -) 100 mg PO DAILY [facility] Last Admin: 05/18/19 09:13 Dose: Not Given Magnesium Chloride (Slow-Mag -) 64 mg PO DAILY [facility] Last Admin: 05/18/19 09:14 Dose: Not Given Multivitamins/Minerals (Infuvite Adult -) 10 ml IV DAILY [facility] Pantoprazole Sodium (Protonix Iv) 40 mg IVPUSH DAILY [facility] Last Admin: 05/18/19 09:13 Dose: 40 mg Valacyclovir HCl (Valtrex -) 500 mg PO DAILY [facility] Last Admin: 05/18/19 09:14 Dose: Not Given ASSESSMENT AND PLAN: Acute Hypoxic Respiratory Failure Pneumonia likely Aspiration UTI Septic Shock Acute on Chronic Renal Failure AML Thrombocytopenia/Anemia Hypernatremia - continue antibiotics - f/u cultures - monitor CBC - transfuse as needed - free water replacement - off pressors, maintain MAP >65 - hold all sedation to assess mental status - spontaneous breathing trials as tolerated - DVT/GI prophylaxis - continue ICU montioring critical care time spent in reviewing chart, evaluating patient and formulating plan 35 min OBJECTIVE: ASSESSMENT AND PLAN:
--- NOTE | 2019-05-19 13:39 | PN ---
Teaching Attending Note Name of Resident: Dante Baig ATTENDING PHYSICIAN STATEMENT I saw and evaluated the patient. I reviewed the resident's note and discussed the case with the resident. I agree with the resident's findings and plan as documented. SUBJECTIVE: Patient seen and examined in the ICU. Remains intubated and poorly responsive off sedation. Minimal grimace to noxious stimuli. Off Cardene overnight. CXR: some mild improvement in bilateral infiltrates. OBJECTIVE: Intake & Output 05/16/19 05/17/19 05/18/19 05/19/19 23:59 23:59 23:59 23:59 Intake Total 2509 1160 586 330 Output Total 250 2581 243 9053 Balance 2259 -740 -214 -875 Weight 119 lb 119 lb 3 oz 114 lb 14.4 oz Last Vital Signs Temp Pulse Resp BP Pulse Ox 102.1 F H 86 22 H 134/59 L 95 05/19/19 13:33 05/19/19 13:33 05/19/19 13:33 05/19/19 13:33 05/19/19 12:07 Active Medications Allopurinol (Zyloprim -) 300 mg PO DAILY [facility] Last Admin: 05/19/19 10:33 Dose: Not Given IV Flush (Angelina-Cath Flush) 10 ml IVPUSH PRN PRN PRN Reason: protocol, maintain patency Last Admin: 05/15/19 05:54 Dose: 10 ml Ertapenem 1 gm/ Sodium (Chloride) 50 mls @ 100 mls/hr IVPB DAILY [facility] Last Admin: 05/19/19 09:56 Dose: 100 mls/hr Daptomycin 300 mg/ Sodium (Chloride) 50 mls @ 50 mls/hr IVPB DAILY@1800 [facility]; Protocol Last Admin: 05/18/19 17:49 Dose: 50 mls/hr Nicardipine HCl 25 mg/ (Dextrose) 250 mls @ 5 mls/hr IVPB TITR [facility]; Protocol Last Admin: 05/19/19 09:58 Dose: Not Given Amino Acids (Clinimix -) 1,000 mls @ 84 mls/hr IV Q12H [facility] Last Admin: 05/19/19 12:56 Dose: 84 mls/hr Dextrose (D5w -) 1,000 mls @ 42 mls/hr IV ASDIR [facility] Lactobacillus Acidophilus (Bacid -) 1 tab PO DAILY [facility] Last Admin: 05/19/19 10:32 Dose: Not Given Lamivudine (Epivir Oral Solution -) 100 mg PO DAILY [facility] Last Admin: 05/19/19 10:32 Dose: Not Given Magnesium Chloride (Slow-Mag -) 64 mg PO DAILY [facility] Last Admin: 05/19/19 10:32 Dose: Not Given Multivitamins/Minerals (Infuvite Adult -) 10 ml IV DAILY [facility] Last Admin: 05/19/19 12:59 Dose: 10 ml Pantoprazole Sodium (Protonix Iv) 40 mg IVPUSH DAILY [facility] Last Admin: 05/19/19 11:00 Dose: 40 mg Valacyclovir HCl (Valtrex -) 500 mg PO DAILY [facility] Last Admin: 05/19/19 10:32 Dose: Not Given Gen: intubated, poorly responsive Heart: RRR Lung: scattered rhonchi Abd: soft, nontender Ext: + edema Laboratory Results - last 24 hr 05/15/19 05/19/19 05/19/19 16:00 05:30 05:45 WBC 7.5 RBC 3.16 L Hgb 9.7 L Hct 28.5 L MCV 90.2 MCH 30.6 MCHC 33.9 RDW 15.6 Plt Count 11 L* D MPV 9.3 Absolute Neuts (auto) 1.8 Neutrophils % 24.2 L D Neutrophils % (Manual) 15.5 L Band Neutrophils % 0.0 Lymphocytes % 47.6 H Lymphocytes % (Manual) 56.3 H D Monocytes % 27.0 H Monocytes % (Manual) 13 H Eosinophils % 0.7 Eosinophils % (Manual) 1.0 Basophils % 0.5 Basophils % (Manual) 0.0 Myelocytes % (Man) 3 H D Promyelocytes % (Man) 1 D Blast Cells % (Manual) 0 Nucleated RBC % 0 Metamyelocytes 4 H D Hypochromia 0 Platelet Estimate Decreased Polychromasia 0 Poikilocytosis 0 Anisocytosis 0 Microcytosis 0 Macrocytosis 0 PT with INR INR PTT (Actin FS) Fibrinogen Anticoagulation Therapy No Result Required. Puncture Site Right radial ABG pH 7.47 H ABG pCO2 at Pt Temp 39.2 ABG pO2 at Pt Temp 83.8 ABG HCO3 28.4 H ABG O2 Sat (Measured) 96.7 ABG O2 Content 12.4 ABG Base Excess 4.9 H Jerardo Test Positive O2 Delivery Device No Result Required. Oxygen Flow Rate 40% Vent Mode A/c Vent Rate 14 Mechanical Rate No Result Required. PEEP 5.0 Pressure Support Vent 400 Sodium Potassium Chloride Carbon Dioxide Anion Gap BUN Creatinine Est GFR (CKD-EPI)AfAm Est GFR (CKD-EPI)NonAf Random Glucose Calcium Total Bilirubin AST ALT Alkaline Phosphatase Total Protein Albumin Blood Type O NEGATIVE Antibody Screen Negative Crossmatch See Detail 05/19/19 05/19/19 05/19/19 05:45 05:45 05:45 WBC RBC Hgb Hct MCV MCH MCHC RDW Plt Count MPV Absolute Neuts (auto) Neutrophils % Neutrophils % (Manual) Band Neutrophils % Lymphocytes % Lymphocytes % (Manual) Monocytes % Monocytes % (Manual) Eosinophils % Eosinophils % (Manual) Basophils % Basophils % (Manual) Myelocytes % (Man) Promyelocytes % (Man) Blast Cells % (Manual) Nucleated RBC % Metamyelocytes Hypochromia Platelet Estimate Polychromasia Poikilocytosis Anisocytosis Microcytosis Macrocytosis PT with INR 14.80 H INR 1.25 H PTT (Actin FS) 27.9 Fibrinogen 259.0 Anticoagulation Therapy Puncture Site ABG pH ABG pCO2 at Pt Temp ABG pO2 at Pt Temp ABG HCO3 ABG O2 Sat (Measured) ABG O2 Content ABG Base Excess Jerardo Test O2 Delivery Device Oxygen Flow Rate Vent Mode Vent Rate Mechanical Rate PEEP Pressure Support Vent Sodium 154 H Potassium 3.8 Chloride 121 H Carbon Dioxide 28 Anion Gap 6 L BUN 52.7 H Creatinine 1.3 Est GFR (CKD-EPI)AfAm 47.13 Est GFR (CKD-EPI)NonAf 40.67 Random Glucose 151 H Calcium 9.6 Total Bilirubin 1.3 H AST 29 ALT 20 Alkaline Phosphatase 105 Total Protein 5.7 L Albumin 2.8 L Blood Type Antibody Screen Crossmatch ASSESSMENT AND PLAN: Acute Hypoxic Respiratory Failure Pneumonia likely Aspiration UTI Septic Shock Acute on Chronic Renal Failure AML Thrombocytopenia/Anemia Hypernatremia - continue antibiotics - f/u cultures - monitor CBC - transfuse as needed - free water replacement - off pressors, maintain MAP >65 - hold all sedation to assess mental status - spontaneous breathing trials as tolerated - DVT/GI prophylaxis - Requires continued ICU monitoring Dr Saucedo Critical care time spent in reviewing chart, evaluating patient and formulating plan 35 min
[2019-05-19 13:49] LABS: EPI CELLS 16.9 /HPF (0-5/HPF); HYALINE CASTS 147 /lpf (0-8); URINE APPEARANCE TURBID; URINE BILIRUBIN NEGATIVE (NEGATIVE); URINE COLOR YELLOW; URINE GLUCOSE (UA) NEGATIVE (NEGATIVE); URINE KETONE NEGATIVE (NEGATIVE); URINE LEUK ESTERASE 1+ (NEGATIVE); URINE NITRITE NEGATIVE (NEGATIVE); URINE PROTEIN TRACE (NEGATIVE); URINE RBC 25 /hpf (0-4); URINE UROBILINOGEN 0.2 mg/dL (0.2-1.0); URINE WBC 4 /hpf (0-5)
--- NOTE | 2019-05-19 13:49 | PN ---
Progress Note, Physician Chief Complaint: The patient remains in the ICU, intubated and sedated. Henley catheter draining dark yellow urine. Blood pressure in acceptable range on pressors. The patient is off the normal saline infusion. Half-normal saline fusions well tolerated History of Present Illness: This is a 73-year-old female with history of chronic kidney disease stage III, CLL, CHF, hypertension, unilateral hydronephrosis who presented to the emergency room with fever and acute kidney injury. The patient has remained intubated and hypotensive. She was started on intravenous fluids as well as pressor agents. The blood pressure has improved. - Current Medication List Current Medications: Active Medications Allopurinol (Zyloprim -) 300 mg PO DAILY [facility] Last Admin: 05/19/19 10:33 Dose: Not Given IV Flush (Angelina-Cath Flush) 10 ml IVPUSH PRN PRN PRN Reason: protocol, maintain patency Last Admin: 05/15/19 05:54 Dose: 10 ml Ertapenem 1 gm/ Sodium (Chloride) 50 mls @ 100 mls/hr IVPB DAILY [facility] Last Admin: 05/19/19 09:56 Dose: 100 mls/hr Daptomycin 300 mg/ Sodium (Chloride) 50 mls @ 50 mls/hr IVPB DAILY@1800 [facility]; Protocol Last Admin: 05/18/19 17:49 Dose: 50 mls/hr Nicardipine HCl 25 mg/ (Dextrose) 250 mls @ 5 mls/hr IVPB TITR [facility]; Protocol Last Admin: 05/19/19 09:58 Dose: Not Given Amino Acids (Clinimix -) 1,000 mls @ 84 mls/hr IV Q12H [facility] Last Admin: 05/19/19 12:56 Dose: 84 mls/hr Dextrose (D5w -) 1,000 mls @ 42 mls/hr IV ASDIR [facility] Lactobacillus Acidophilus (Bacid -) 1 tab PO DAILY [facility] Last Admin: 05/19/19 10:32 Dose: Not Given Lamivudine (Epivir Oral Solution -) 100 mg PO DAILY [facility] Last Admin: 05/19/19 10:32 Dose: Not Given Magnesium Chloride (Slow-Mag -) 64 mg PO DAILY [facility] Last Admin: 05/19/19 10:32 Dose: Not Given Multivitamins/Minerals (Infuvite Adult -) 10 ml IV DAILY [facility] Last Admin: 05/19/19 12:59 Dose: 10 ml Pantoprazole Sodium (Protonix Iv) 40 mg IVPUSH DAILY [facility] Last Admin: 05/19/19 11:00 Dose: 40 mg Valacyclovir HCl (Valtrex -) 500 mg PO DAILY [facility] Last Admin: 05/19/19 10:32 Dose: Not Given - Objective Vital Signs: Vital Signs Temperature 102.1 F H 05/19/19 13:33 Pulse Rate 86 05/19/19 13:33 Respiratory Rate 22 H 05/19/19 13:33 Blood Pressure 134/59 L 05/19/19 13:33 O2 Sat by Pulse Oximetry (%) 95 05/19/19 12:07 Constitutional: Yes: Cachectic HENT: Yes: Normocephalic Neck: Yes: Trachea Midline Cardiovascular: Yes: Regular Rate and Rhythm Respiratory: Yes: Intubated, Mechanically Ventilated Gastrointestinal: Yes: Soft Genitourinary: Yes: Henley Present. No: Bladder Distention, CVA Tenderness - Left, CVA Tenderness - Right Edema: LLE: Trace, RLE: Trace Neurological: Yes: Unresponsive Labs: CBC, BMP 05/19/19 05:45 05/19/19 05:45 INR, PTT INR 1.25 (0.83-1.09) H 05/19/19 05:45 Fibrinogen 259.0 mg/dL (238-498) 05/19/19 05:45 Problem List - Problems (1) EBER (acute kidney injury) Code(s): N17.9 - ACUTE KIDNEY FAILURE, UNSPECIFIED (2) Anemia requiring transfusions Code(s): D64.9 - ANEMIA, UNSPECIFIED (3) UTI (urinary tract infection) Code(s): N39.0 - URINARY TRACT INFECTION, SITE NOT SPECIFIED Qualifiers: Urinary tract infection type: acute cystitis Hematuria presence: without hematuria Qualified Code(s): N30.00 - Acute cystitis without hematuria (4) CKD (chronic kidney disease) Code(s): N18.9 - CHRONIC KIDNEY DISEASE, UNSPECIFIED (5) CLL (chronic lymphocytic leukemia) Code(s): C91.10 - CHRONIC LYMPHOCYTIC LEUK OF B-CELL TYPE NOT ACHIEVE REMIS (6) Hepatitis B Code(s): B19.10 - UNSPECIFIED VIRAL HEPATITIS B WITHOUT HEPATIC COMA (7) Hydronephrosis Code(s): N13.30 - UNSPECIFIED HYDRONEPHROSIS Assessment/Plan This is a 73-year-old female with acute respiratory failure, on ventilator support.Patient is running irregular fever. The patient's platelets are extremely low. Getting Plt transfusions. Tendency for the BP to run high. ? Volume related. Will reduce IV 0.45NSS to 30 ml/ hr. The patient is in acute kidney injury with tendency for some improvent, possibly related to improvent in hemodynamic status. Renal function slowly improved, even though still the creatinine is about normal. Urine output improving. The patient remains sedated and unresponsive. Serum sodium Is elevated, Most likely related to large volume insensible loss through the skin because of the fever. We will continue the 1/2 Normal saline as Ordered. If the serum sodium worsens , will increase the free water supplements. We will monitor the renal and the electrolyte profile. Overall prognosis poor Sarah Cardona MD
[2019-05-19] MEDS: DEXTROSE 5%-WATER - 1,000 ML IV SCH (14:05)
--- NOTE | 2019-05-19 14:14 | PN ---
Progress Note, Physician History of Present Illness: REMAINS UNRESPONSIVE ON VENTILATOR FEBRILE WBC DECREASED THROMBOCYTOPENIC AZOTEMIA C/S NEGATIVE - Current Medication List Current Medications: Active Medications Allopurinol (Zyloprim -) 300 mg PO DAILY [facility] Last Admin: 05/19/19 10:33 Dose: Not Given IV Flush (Angelina-Cath Flush) 10 ml IVPUSH PRN PRN PRN Reason: protocol, maintain patency Last Admin: 05/15/19 05:54 Dose: 10 ml Ertapenem 1 gm/ Sodium (Chloride) 50 mls @ 100 mls/hr IVPB DAILY [facility] Last Admin: 05/19/19 09:56 Dose: 100 mls/hr Daptomycin 300 mg/ Sodium (Chloride) 50 mls @ 50 mls/hr IVPB DAILY@1800 [facility]; Protocol Last Admin: 05/18/19 17:49 Dose: 50 mls/hr Nicardipine HCl 25 mg/ (Dextrose) 250 mls @ 5 mls/hr IVPB TITR [facility]; Protocol Last Admin: 05/19/19 09:58 Dose: Not Given Amino Acids (Clinimix -) 1,000 mls @ 84 mls/hr IV Q12H [facility] Last Admin: 05/19/19 12:56 Dose: 84 mls/hr Dextrose (D5w -) 1,000 mls @ 42 mls/hr IV ASDIR [facility] Last Admin: 05/19/19 14:05 Dose: 42 mls/hr Lactobacillus Acidophilus (Bacid -) 1 tab PO DAILY [facility] Last Admin: 05/19/19 10:32 Dose: Not Given Lamivudine (Epivir Oral Solution -) 100 mg PO DAILY [facility] Last Admin: 05/19/19 10:32 Dose: Not Given Magnesium Chloride (Slow-Mag -) 64 mg PO DAILY [facility] Last Admin: 05/19/19 10:32 Dose: Not Given Multivitamins/Minerals (Infuvite Adult -) 10 ml IV DAILY [facility] Last Admin: 05/19/19 12:59 Dose: 10 ml Pantoprazole Sodium (Protonix Iv) 40 mg IVPUSH DAILY [facility] Last Admin: 05/19/19 11:00 Dose: 40 mg Valacyclovir HCl (Valtrex -) 500 mg PO DAILY [facility] Last Admin: 05/19/19 10:32 Dose: Not Given - Objective Vital Signs: Vital Signs Temperature 102.1 F H 05/19/19 13:33 Pulse Rate 86 05/19/19 13:33 Respiratory Rate 22 H 05/19/19 13:33 Blood Pressure 134/59 L 05/19/19 13:33 O2 Sat by Pulse Oximetry (%) 95 05/19/19 12:07 Constitutional: Yes: No Distress Eyes: Yes: Conjunctiva Clear Cardiovascular: Yes: Regular Rate and Rhythm, S1, S2 Respiratory: Yes: Diminished Gastrointestinal: Yes: Normal Bowel Sounds, Soft. No: Tenderness Extremities: Yes: Other (PETECHIAE UE BILATERALLY) Edema: Yes Labs: CBC, BMP 05/19/19 05:45 05/19/19 05:45 INR, PTT INR 1.25 (0.83-1.09) H 05/19/19 05:45 Fibrinogen 259.0 mg/dL (238-498) 05/19/19 05:45 Assessment/Plan ACUTE RESP FAILURE FEVER ? TUMOR FEVER AML LEUKOCYTOSIS WITH BLASTS IMPROVED RECURRENT UTI HX ESBL AZOTEMIA VANCOMYCIN ALLERGY REPEAT CULTURES NO GROWTH CONTINUE EMPIRIC ERTAPENEM/ DAPTO (VANCOMYCIN ALLERGY) VENTILATORY SUPPORT PROGNOSIS POOR
[2019-05-19 15:07] LABS: URINE BACTERIA 4.1 /hpf (NEGATIVE); YEAST FEW (NEGATIVE)
[2019-05-19 15:23] LABS: BASO % 1.3 % (0-2.0); HEMATOCRIT 25.8 % (32.4-45.2); HEMOGLOBIN 8.6 GM/dL (10.7-15.3); LYMPH % 41.1 % (8-40); MCH 30.1 pg (25.7-33.7); MCHC 33.4 g/dl (32.0-36.0); MEAN CELL VOLUME 90.2 fl (80-96); MONO % 36.3 % (3.8-10.2); NEUT % 20.3 % (42.8-82.8); PLATELET COUNT 40 K/MM3 (134-434); RBC 2.86 M/mm3 (3.60-5.2); RDW 15.4 % (11.6-15.6); WHITE BLOOD COUNT 8.8 K/mm3 (4.0-10.0)
[2019-05-19 15:59] LABS: ANISOCYTOSIS 0; MACROCYTOSIS 0; PLATELET ESTIMATE DECREASED
[2019-05-19] MEDS: DAPTOMYCIN 300 MG in SODIUM CHLORIDE 50 ML IVPB SCH (17:32)
[2019-05-19] MEDS: ACETAMINOPHEN 1000 MG/100 ML VIAL (NON FORMULARY) IVPB PRN (18:08)
[2019-05-20] MEDS ORDERED: PT OWN MED DRAWER 7, Y5N ONE ×3 (00:55→13:08)
[2019-05-20] MEDS: AMINO ACIDS 4.25%/D5W 1,000 ML IV SCH ×4 (05:50→21:58)
[2019-05-20] MEDS: NICARDIPINE 25 MG in DEXTROSE 5%-WATER - 240 ML IVPB SCH ×2 (05:51→21:50)
[2019-05-20 06:27] LABS: BASO % 1.4 % (0-2.0); HEMATOCRIT 25.3 % (32.4-45.2); HEMOGLOBIN 8.6 GM/dL (10.7-15.3); LYMPH % 42.7 % (8-40); MCH 30.6 pg (25.7-33.7); MCHC 33.9 g/dl (32.0-36.0); MEAN CELL VOLUME 90.1 fl (80-96); MEAN PLT VOLUME 8.1 fl (7.5-11.1); NEUT % 15.9 % (42.8-82.8); RBC 2.81 M/mm3 (3.60-5.2); RDW 15.4 % (11.6-15.6); WHITE BLOOD COUNT 8.4 K/mm3 (4.0-10.0)
[2019-05-20 07:26] LABS: PLATELET COUNT 26 K/MM3 (134-434)
[2019-05-20 07:36] LABS: ALBUMIN 2.8 g/dl (3.4-5.0); BILIRUBIN,TOTAL 0.9 mg/dL (0.2-1); CALCIUM 9.4 mg/dL (8.5-10.1); CREATININE 1.2 mg/dL (0.55-1.3); PHOSPHOROUS 1.9 mg/dL (2.5-4.9); POTASSIUM 3.2 mmol/L (3.5-5.1); TOT PROT 5.5 g/dl (6.4-8.2)
[2019-05-20] MEDS ORDERED: PORTA CATH FLUSH 10 ML IVPUSH ONE (08:33)
[2019-05-20] MEDS: LACTOBACILLUS ACIDOPHILUS 1 TABLET PO SCH (09:19)
[2019-05-20] MEDS: lamiVUDine 10 MG/1 ML BULK BOTTLE PO SCH (09:19)
[2019-05-20] MEDS: MAGNESIUM CL 64 MG TABLET.SA PO SCH (09:19)
[2019-05-20] MEDS: ACETAMINOPHEN 1000 MG/100 ML VIAL (NON FORMULARY) IVPB PRN (09:20)
[2019-05-20] MEDS: valACYclovir HCL 500 MG TABLET (FP) PO SCH (09:20)
[2019-05-20] MEDS: ALLOPURINOL 300 MG TABLET (FP) PO SCH (09:20)
[2019-05-20] MEDS: PANTOPRAZOLE SODIUM 40 MG VIAL IVPUSH SCH (09:21)
[2019-05-20] MEDS: PORTA CATH FLUSH 10 ML IVPUSH PRN (09:21)
--- NOTE | 2019-05-20 09:28 | PN ---
Progress Note (short form) - Note Progress Note: PAtient seen and examined Intubated opening eyes to verbal stimuli, squeezing fingers Tmax. 102 Cor: RSR, No murmurs, No gallops Lungs: decreased at bases Abd: Soft, Normal bowel sounds, No organomegaly Ext:1+ edema Labs/MEds reviewed A/P Acute hypoxic respiratory failure Intubated Off pressors opening eyes to verbal stimuli AML Sepsis Thrombocytopenia Anemia Continues to be febrile will request neuro consult discussed with daughter at bed side
[2019-05-20] MEDS: ERTAPENEM SODIUM 1 GM in SODIUM CHLORIDE 50 ML IVPB SCH (09:37)
--- NOTE | 2019-05-20 09:55 | PN ---
Progress Note (short form) - Note Progress Note: Pulm/CCM SUBJECTIVE: Patient seen and examined in the ICU. -improved Na -still febrile -but not in shock CXR: L > R alveolar filling OBJECTIVE: Vital Signs Temp 102.2 F H 05/20/19 08:19 Pulse 74 05/20/19 08:28 Resp 16 05/20/19 08:28 BP 138/52 L 05/20/19 08:19 Pulse Ox 100 05/20/19 08:28 Intake & Output 05/19/19 05/19/19 05/20/19 11:59 23:59 11:59 Intake Total 330 2358 860 Output Total 1205 800 300 Balance -875 1558 560 Weight 52.118 kg 52.435 kg Intake: IV 280 1487 860 CLINIMIX 280 1067 580 D5w - 1,000 ml @ 42 mls/ 420 280 hr IV ASDIR RYAN Rx#: [id number] IVPB 50 367 Platelets 504 Output: Urine 1205 800 300 Henley 1205 800 300 Other: Voiding Method Indwelling Catheter Indwelling Catheter Indwelling Catheter Bowel Movement No Body Mass Index (BMI) 20.2 Weight Measurement Method Built in [facility] Active Medications Acetaminophen (Ofirmev Injection -) 1,000 mg IVPB Q6H PRN PRN Reason: FEVER Stop: 05/20/19 17:36 Last Admin: 05/20/19 09:20 Dose: 1,000 mg Allopurinol (Zyloprim -) 300 mg PO DAILY [facility] Last Admin: 05/20/19 09:20 Dose: Not Given IV Flush (Angelina-Cath Flush) 10 ml IVPUSH PRN PRN PRN Reason: protocol, maintain patency Last Admin: 05/20/19 09:21 Dose: 10 ml Ertapenem 1 gm/ Sodium (Chloride) 50 mls @ 100 mls/hr IVPB DAILY [facility] Last Admin: 05/20/19 09:37 Dose: 100 mls/hr Daptomycin 300 mg/ Sodium (Chloride) 50 mls @ 50 mls/hr IVPB DAILY@1800 [facility]; Protocol Last Admin: 05/19/19 17:32 Dose: 50 mls/hr Nicardipine HCl 25 mg/ (Dextrose) 250 mls @ 5 mls/hr IVPB TITR [facility]; Protocol Last Admin: 05/20/19 05:51 Dose: Not Given Amino Acids (Clinimix -) 1,000 mls @ 84 mls/hr IV Q12H [facility] Last Admin: 05/20/19 05:50 Dose: 84 mls/hr Dextrose (D5w -) 1,000 mls @ 42 mls/hr IV ASDIR [facility] Last Admin: 05/19/19 14:05 Dose: 42 mls/hr Lactobacillus Acidophilus (Bacid -) 1 tab PO DAILY [facility] Last Admin: 05/20/19 09:19 Dose: Not Given Lamivudine (Epivir Oral Solution -) 100 mg PO DAILY [facility] Last Admin: 05/20/19 09:19 Dose: Not Given Magnesium Chloride (Slow-Mag -) 64 mg PO DAILY [facility] Last Admin: 05/20/19 09:19 Dose: Not Given Multivitamins/Minerals (Infuvite Adult -) 10 ml IV DAILY [facility] Last Admin: 05/19/19 12:59 Dose: 10 ml Pantoprazole Sodium (Protonix Iv) 40 mg IVPUSH DAILY [facility] Last Admin: 05/20/19 09:21 Dose: 40 mg Valacyclovir HCl (Valtrex -) 500 mg PO DAILY [facility] Last Admin: 05/20/19 09:20 Dose: Not Given Gen: intubated, more awake Heart: RRR Lung: scattered rhonchi Abd: soft, nontender Ext: + edema Laboratory Results - last 24 hr 05/15/19 05/19/19 05/19/19 16:00 05:30 05:45 WBC 7.5 RBC 3.16 L Hgb 9.7 L Hct 28.5 L MCV 90.2 MCH 30.6 MCHC 33.9 RDW 15.6 Plt Count 11 L* D MPV 9.3 Absolute Neuts (auto) 1.8 Neutrophils % 24.2 L D Neutrophils % (Manual) 15.5 L Band Neutrophils % 0.0 Lymphocytes % 47.6 H Lymphocytes % (Manual) 56.3 H D Monocytes % 27.0 H Monocytes % (Manual) 13 H Eosinophils % 0.7 Eosinophils % (Manual) 1.0 Basophils % 0.5 Basophils % (Manual) 0.0 Myelocytes % (Man) 3 H D Promyelocytes % (Man) 1 D Blast Cells % (Manual) 0 Nucleated RBC % 0 Metamyelocytes 4 H D Hypochromia 0 Platelet Estimate Decreased Polychromasia 0 Poikilocytosis 0 Anisocytosis 0 Microcytosis 0 Macrocytosis 0 PT with INR INR PTT (Actin FS) Fibrinogen Anticoagulation Therapy No Result Required. Puncture Site Right radial ABG pH 7.47 H ABG pCO2 at Pt Temp 39.2 ABG pO2 at Pt Temp 83.8 ABG HCO3 28.4 H ABG O2 Sat (Measured) 96.7 ABG O2 Content 12.4 ABG Base Excess 4.9 H Jerardo Test Positive O2 Delivery Device No Result Required. Oxygen Flow Rate 40% Vent Mode A/c Vent Rate 14 Mechanical Rate No Result Required. PEEP 5.0 Pressure Support Vent 400 Sodium Potassium Chloride Carbon Dioxide Anion Gap BUN Creatinine Est GFR (CKD-EPI)AfAm Est GFR (CKD-EPI)NonAf Random Glucose Calcium Total Bilirubin AST ALT Alkaline Phosphatase Total Protein Albumin Blood Type O NEGATIVE Antibody Screen Negative Crossmatch See Detail 05/19/19 05/19/19 05/19/19 05:45 05:45 05:45 WBC RBC Hgb Hct MCV MCH MCHC RDW Plt Count MPV Absolute Neuts (auto) Neutrophils % Neutrophils % (Manual) Band Neutrophils % Lymphocytes % Lymphocytes % (Manual) Monocytes % Monocytes % (Manual) Eosinophils % Eosinophils % (Manual) Basophils % Basophils % (Manual) Myelocytes % (Man) Promyelocytes % (Man) Blast Cells % (Manual) Nucleated RBC % Metamyelocytes Hypochromia Platelet Estimate Polychromasia Poikilocytosis Anisocytosis Microcytosis Macrocytosis PT with INR 14.80 H INR 1.25 H PTT (Actin FS) 27.9 Fibrinogen 259.0 Anticoagulation Therapy Puncture Site ABG pH ABG pCO2 at Pt Temp ABG pO2 at Pt Temp ABG HCO3 ABG O2 Sat (Measured) ABG O2 Content ABG Base Excess Jerardo Test O2 Delivery Device Oxygen Flow Rate Vent Mode Vent Rate Mechanical Rate PEEP Pressure Support Vent Sodium 154 H Potassium 3.8 Chloride 121 H Carbon Dioxide 28 Anion Gap 6 L BUN 52.7 H Creatinine 1.3 Est GFR (CKD-EPI)AfAm 47.13 Est GFR (CKD-EPI)NonAf 40.67 Random Glucose 151 H Calcium 9.6 Total Bilirubin 1.3 H AST 29 ALT 20 Alkaline Phosphatase 105 Total Protein 5.7 L Albumin 2.8 L Blood Type Antibody Screen Crossmatch ASSESSMENT AND PLAN: Acute Hypoxic Respiratory Failure Pneumonia likely Aspiration UTI Septic Shock Acute on Chronic Renal Failure AML Thrombocytopenia/Anemia Hypernatremia - continue antibiotics as per ID - f/u cultures - monitor CBC - transfuse as needed - free water replacement, improved Na - off pressors, maintain MAP >65 - hold all sedation to assess mental status - spontaneous breathing trials as tolerated - DVT/GI prophylaxis - Requires continued ICU monitoring Nathalia ACNP [id number]
--- NOTE | 2019-05-20 10:03 | PN ---
Progress Note (short form) - Note Progress Note: remains with fever intubated opens eyes to command remains intubated, no pressors Vital Signs Period Temp Pulse Resp BP Sys/Borjas Pulse Ox Last 24 Hr 99.2 F-102.3 F 60-88 15-77 116-151/52-79 94-100 cor-rrr lungs decreased bs at bases abd soft,nt ext +edema, +petechiae of the hands CBC, BMP 05/20/19 05:28 05/20/19 05:28 Microbiology 05/19/19 09:00 Sputum - Endotrachea Suction/Ventilator Gram Stain - Final 05/15/19 15:00 Blood - Peripheral Venous Blood Culture - Preliminary NO GROWTH OBTAINED AFTER 96 HOURS, INCUBATION TO CONTINUE FOR 1 DAYS. 05/15/19 15:00 Blood - Peripheral Venous Blood Culture - Preliminary NO GROWTH OBTAINED AFTER 96 HOURS, INCUBATION TO CONTINUE FOR 1 DAYS. 05/16/19 16:50 Sputum - Endotrachea Suction/Ventilator Gram Stain - Final 05/16/19 16:50 Sputum - Endotrachea Suction/Ventilator Sputum Culture - Final NORMAL RESPIRATORY KANE 05/13/19 15:00 Blood - Peripheral Venous Blood Culture - Final NO GROWTH AFTER 5 DAYS INCUBATION 05/13/19 12:50 Blood - Peripheral Venous Blood Culture - Final NO GROWTH AFTER 5 DAYS INCUBATION 05/15/19 18:30 Urine - Urine Henley Urine Culture - Final NO GROWTH OBTAINED 05/13/19 12:56 Urine - Urine - Catheterized Urine Culture - Final NO GROWTH OBTAINED 05/09/19 12:44 Blood - Peripheral Venous Blood Culture - Final NO GROWTH AFTER 5 DAYS INCUBATION 05/09/19 12:58 Blood - Peripheral Venous Blood Culture - Final NO GROWTH AFTER 5 DAYS INCUBATION 05/10/19 00:35 Urine - Urine - Catheterized Urine Culture - Final NO GROWTH OBTAINED 05/05/19 11:25 Blood - Peripheral Venous Blood Culture - Final NO GROWTH AFTER 5 DAYS INCUBATION 05/05/19 11:38 Blood - Peripheral Venous Blood Culture - Final NO GROWTH AFTER 5 DAYS INCUBATION 05/03/19 23:20 Blood - Peripheral Venous Blood Culture - Final Staphylococcus Auricularis Staphylococcus Epidermidis 05/03/19 23:20 Blood - Peripheral Venous Blood Culture - Final Staphylococcus Coagulase Neg 05/06/19 Unknown Stool Clostridioides difficile Antigen - Final 05/06/19 Unknown Stool Clostridioides difficile Toxin Assay - Final 05/04/19 00:05 Urine - Urine Clean Catch Urine Culture - Final Citrobacter Freundii Enterococcus Faecalis 05/03/19 23:46 Throat Throat Culture - Final NO BETA HEMOLYTIC STREPTOCOCCI ISOLATED cxray stable a/p resp failure FUO- no pressors remains febrile leukocytosis improved AML/CLL continue daptomycin/ertapenem
--- NOTE | 2019-05-20 10:07 | PN ---
Progress Note, Physician Chief Complaint: opens eye; VSS febrile on vent support; IV ATB IV clinimix events consults meds reviewed - Current Medication List Current Medications: Active Medications Acetaminophen (Ofirmev Injection -) 1,000 mg IVPB Q6H PRN PRN Reason: FEVER Stop: 05/20/19 17:36 Last Admin: 05/20/19 09:20 Dose: 1,000 mg Allopurinol (Zyloprim -) 300 mg PO DAILY [facility] Last Admin: 05/20/19 09:20 Dose: Not Given IV Flush (Angelina-Cath Flush) 10 ml IVPUSH PRN PRN PRN Reason: protocol, maintain patency Last Admin: 05/20/19 09:21 Dose: 10 ml Ertapenem 1 gm/ Sodium (Chloride) 50 mls @ 100 mls/hr IVPB DAILY [facility] Last Admin: 05/20/19 09:37 Dose: 100 mls/hr Daptomycin 300 mg/ Sodium (Chloride) 50 mls @ 50 mls/hr IVPB DAILY@1800 [facility]; Protocol Last Admin: 05/19/19 17:32 Dose: 50 mls/hr Nicardipine HCl 25 mg/ (Dextrose) 250 mls @ 5 mls/hr IVPB TITR [facility]; Protocol Last Admin: 05/20/19 05:51 Dose: Not Given Amino Acids (Clinimix -) 1,000 mls @ 84 mls/hr IV Q12H [facility] Last Admin: 05/20/19 05:50 Dose: 84 mls/hr Dextrose (D5w -) 1,000 mls @ 42 mls/hr IV ASDIR [facility] Last Admin: 05/19/19 14:05 Dose: 42 mls/hr Lactobacillus Acidophilus (Bacid -) 1 tab PO DAILY [facility] Last Admin: 05/20/19 09:19 Dose: Not Given Lamivudine (Epivir Oral Solution -) 100 mg PO DAILY [facility] Last Admin: 05/20/19 09:19 Dose: Not Given Magnesium Chloride (Slow-Mag -) 64 mg PO DAILY [facility] Last Admin: 05/20/19 09:19 Dose: Not Given Multivitamins/Minerals (Infuvite Adult -) 10 ml IV DAILY [facility] Last Admin: 05/19/19 12:59 Dose: 10 ml Pantoprazole Sodium (Protonix Iv) 40 mg IVPUSH DAILY [facility] Last Admin: 05/20/19 09:21 Dose: 40 mg Valacyclovir HCl (Valtrex -) 500 mg PO DAILY [facility] Last Admin: 05/20/19 09:20 Dose: Not Given - Objective Vital Signs: Vital Signs Temperature 102.2 F H 05/20/19 08:19 Pulse Rate 74 05/20/19 08:28 Respiratory Rate 16 05/20/19 08:28 Blood Pressure 138/52 L 05/20/19 08:19 O2 Sat by Pulse Oximetry (%) 100 05/20/19 08:28 Constitutional: Yes: Calm Eyes: Yes: Conjunctiva Clear HENT: Yes: Atraumatic Neck: Yes: Supple Cardiovascular: Yes: Regular Rate and Rhythm Respiratory: Yes: CTA Bilaterally Gastrointestinal: Yes: Soft. No: Tenderness Genitourinary: No: Hematuria Musculoskeletal: No: Joint Stiffness, Joint Swelling Extremities: No: Cold, Cool Edema: No Integumentary: No: Rash Neurological: Yes: Alert Psychiatric: Yes: Alert. No: Agitated Labs: CBC, BMP 05/20/19 05:28 05/20/19 05:28 INR, PTT INR 1.25 (0.83-1.09) H 05/19/19 05:45 Fibrinogen 259.0 mg/dL (238-498) 05/19/19 05:45 - ....Imaging Other: Report Reviewed Assessment/Plan Patient is a 73 year old lady with a significant pmh of CLL, CHF, HTN, HBV admitted with fever. h/o UTis renal stones, and cellulitis; h/o UTI ESBL, sepsis , ARF/CRF, CLL and acute leukemia severe anemia s/p PRBC sp PLT PNA fever, leukemia with blastic transformation, respiratory failure; mec ventilation support in ICU heme ONC f/u; Transfuse Monodonor PLT and PRBCs as needed; f/u labs; sepsis on IV ATB broad spectrum per ID, f/u cultures; CXR low UO increased creatinine - Henley in, IVF; renal f/u DVT pfx - TEDs / SCDs; not on sq heparin or AC; falls PFX d/w ICU team d.w pt and staff - prognosis guarded; t time 35 min; d/w daughter Dayana
[2019-05-20 10:20] LABS: ANISOCYTOSIS 1+; MACROCYTOSIS 0; OVALOCYTE 1+; PLATELET ESTIMATE DECREASED; TEAR DROP CELLS 1+
[2019-05-20] MEDS: DEXTROSE 5%-WATER - 1,000 ML IV SCH (13:02)
[2019-05-20] MEDS: MULTIVIT INJ. ADULT COMBO WITH VIT K 1 COMBO 10 ML VIAL IV SCH (13:09)
[2019-05-20] MEDS ORDERED: fentaNYL CITRATE 250 MCG/5 ML VIAL ONE (14:11)
[2019-05-20] MEDS: DAPTOMYCIN 300 MG in SODIUM CHLORIDE 50 ML IVPB SCH (17:28)
[2019-05-20] MEDS: KCL 10 MEQ IVPB 10 MEQ/100 ML INFUS.BAG IVPB SCH ×2 (17:28→18:27)
--- NOTE | 2019-05-20 17:54 | PN ---
Progress Note, Physician History of Present Illness: More alert. Undergoing SBTs. - Current Medication List Current Medications: Active Medications Albuterol Sulfate (Ventolin 0.083% Nebulizer Soln -) 1 amp NEB Q4H PRN PRN Reason: SHORT OF BREATH/WHEEZING Allopurinol (Zyloprim -) 300 mg PO DAILY [facility] Last Admin: 05/20/19 09:20 Dose: Not Given Fentanyl (Sublimaze Injection -) 50 mcg IVPUSH Q2H PRN PRN Reason: PAIN LEVEL 1-5 Stop: 05/21/19 14:14 Last Admin: 05/20/19 14:34 Dose: 50 mcg IV Flush (Angelina-Cath Flush) 10 ml IVPUSH PRN PRN PRN Reason: protocol, maintain patency Last Admin: 05/20/19 09:21 Dose: 10 ml Ertapenem 1 gm/ Sodium (Chloride) 50 mls @ 100 mls/hr IVPB DAILY [facility] Last Admin: 05/20/19 09:37 Dose: 100 mls/hr Daptomycin 300 mg/ Sodium (Chloride) 50 mls @ 50 mls/hr IVPB DAILY@1800 [facility]; Protocol Last Admin: 05/20/19 17:28 Dose: 50 mls/hr Nicardipine HCl 25 mg/ (Dextrose) 250 mls @ 5 mls/hr IVPB TITR [facility]; Protocol Last Admin: 05/20/19 05:51 Dose: Not Given Amino Acids (Clinimix -) 1,000 mls @ 84 mls/hr IV Q12H [facility] Last Admin: 05/20/19 13:03 Dose: 84 mls/hr Dextrose (D5w -) 1,000 mls @ 42 mls/hr IV ASDIR [facility] Last Admin: 05/20/19 13:02 Dose: 42 mls/hr Potassium Chloride (Potassium Chloride 10 Meq Premix Ivpb -) 10 meq in 100 mls @ 100 mls/hr IVPB Q60M [facility] Stop: 05/20/19 18:59 Last Admin: 05/20/19 17:28 Dose: 100 mls/hr Lactobacillus Acidophilus (Bacid -) 1 tab PO DAILY [facility] Last Admin: 05/20/19 09:19 Dose: Not Given Lamivudine (Epivir Oral Solution -) 100 mg PO DAILY [facility] Last Admin: 05/20/19 09:19 Dose: Not Given Magnesium Chloride (Slow-Mag -) 64 mg PO DAILY [facility] Last Admin: 05/20/19 09:19 Dose: Not Given Multivitamins/Minerals (Infuvite Adult -) 10 ml IV DAILY [facility] Last Admin: 05/20/19 13:09 Dose: 10 ml Pantoprazole Sodium (Protonix Iv) 40 mg IVPUSH DAILY [facility] Last Admin: 05/20/19 09:21 Dose: 40 mg Valacyclovir HCl (Valtrex -) 500 mg PO DAILY [facility] Last Admin: 05/20/19 09:20 Dose: Not Given - Objective Vital Signs: Vital Signs Temperature 100.1 F H 05/20/19 16:00 Pulse Rate 68 05/20/19 16:00 Respiratory Rate 18 05/20/19 16:40 Blood Pressure 117/65 05/20/19 16:00 O2 Sat by Pulse Oximetry (%) 100 05/20/19 08:28 Constitutional: Yes: Mild Distress Cardiovascular: Yes: Regular Rate and Rhythm Respiratory: Yes: Mechanically Ventilated Gastrointestinal: Yes: Soft. No: Tenderness Edema: No Labs: CBC, BMP 05/20/19 05:28 05/20/19 05:28 INR, PTT INR 1.25 (0.83-1.09) H 05/19/19 05:45 Fibrinogen 259.0 mg/dL (238-498) 05/19/19 05:45 Assessment/Plan 73F with CLL, MDSAML admitted with coag neg staph bacteremia and GNR UTI. Hospital course c/b AMS and acute hypoxic respiratory failure, intubated, off pressors, persistently febrile. Repeat infectious w/u pending. On dapto/ ertapenem Awaiting neurology consult
--- NOTE | 2019-05-20 23:52 | PN ---
Progress Note (short form) - Note Progress Note: covering dr scales This is a 73-year-old female with acute respiratory failure, on ventilator support. Patient is running irregular fever. The patient's platelets are extremely low. Getting Plt transfusions. Tendency for the BP to run high. ? Volume related. Will reduce IV 0.45NSS to 30 ml/ hr. The patient is in acute kidney injury with tendency for some improvent, possibly related to improvent in hemodynamic status. Renal function slowly improved, even though still the creatinine is about normal. Urine output improving. The patient remains sedated and unresponsive. Serum sodium Is elevated, Most likely related to large volume insensible loss through the skin because of the fever. We will continue the 1/2 Normal saline as Ordered. If the serum sodium worsens , will increase the free water supplements. We will monitor the renal and the electrolyte profile. Overall prognosis poor Current Medications Albuterol Sulfate (Ventolin 0.083% Nebulizer Soln -) 1 amp NEB Q4H PRN PRN Reason: SHORT OF BREATH/WHEEZING Allopurinol (Zyloprim -) 300 mg PO DAILY [facility] Last Admin: 05/20/19 09:20 Dose: Not Given Fentanyl (Sublimaze Injection -) 50 mcg IVPUSH Q2H PRN PRN Reason: PAIN LEVEL 1-5 Stop: 05/21/19 14:14 Last Admin: 05/20/19 22:13 Dose: 50 mcg IV Flush (Angelina-Cath Flush) 10 ml IVPUSH PRN PRN PRN Reason: protocol, maintain patency Last Admin: 05/20/19 09:21 Dose: 10 ml Ertapenem 1 gm/ Sodium (Chloride) 50 mls @ 100 mls/hr IVPB DAILY [facility] Last Admin: 05/20/19 09:37 Dose: 100 mls/hr Daptomycin 300 mg/ Sodium (Chloride) 50 mls @ 50 mls/hr IVPB DAILY@1800 [facility]; Protocol Last Admin: 05/20/19 17:28 Dose: 50 mls/hr Nicardipine HCl 25 mg/ (Dextrose) 250 mls @ 5 mls/hr IVPB TITR [facility]; Protocol Last Admin: 05/20/19 21:50 Dose: Not Given Amino Acids (Clinimix -) 1,000 mls @ 84 mls/hr IV Q12H [facility] Last Admin: 05/20/19 21:58 Dose: 84 mls/hr Dextrose (D5w -) 1,000 mls @ 42 mls/hr IV ASDIR [facility] Last Admin: 05/20/19 13:02 Dose: 42 mls/hr Lactobacillus Acidophilus (Bacid -) 1 tab PO DAILY [facility] Last Admin: 05/20/19 09:19 Dose: Not Given Lamivudine (Epivir Oral Solution -) 100 mg PO DAILY [facility] Last Admin: 05/20/19 09:19 Dose: Not Given Magnesium Chloride (Slow-Mag -) 64 mg PO DAILY [facility] Last Admin: 05/20/19 09:19 Dose: Not Given Multivitamins/Minerals (Infuvite Adult -) 10 ml IV DAILY [facility] Last Admin: 05/20/19 13:09 Dose: 10 ml Pantoprazole Sodium (Protonix Iv) 40 mg IVPUSH DAILY [facility] Last Admin: 05/20/19 09:21 Dose: 40 mg Valacyclovir HCl (Valtrex -) 500 mg PO DAILY [facility] Last Admin: 05/20/19 09:20 Dose: Not Given Last Vital Signs Temp Pulse Resp BP Pulse Ox 100.8 F H 80 18 122/60 99 05/20/19 22:00 05/21/19 00:00 05/21/19 00:28 05/21/19 00:00 05/20/19 22:32 CBC, BMP 05/20/19 05:28 05/20/19 05:28 Hypernatremia Prerenal azotemia
[2019-05-21] MEDS: AMINO ACIDS 4.25%/D5W 1,000 ML IV SCH ×3 (06:15→19:37)
[2019-05-21 06:29] LABS: HEMATOCRIT 26.8 % (32.4-45.2); HEMOGLOBIN 9.1 GM/dL (10.7-15.3); MCH 30.2 pg (25.7-33.7); MCHC 33.8 g/dl (32.0-36.0); MEAN CELL VOLUME 89.2 fl (80-96); MEAN PLT VOLUME 8.2 fl (7.5-11.1); RBC 3.01 M/mm3 (3.60-5.2); RDW 15.3 % (11.6-15.6); WHITE BLOOD COUNT 14.2 K/mm3 (4.0-10.0)
--- NOTE | 2019-05-21 06:46 | PN ---
Progress Note, Physician Chief Complaint: more awake and alert - still low grade fever on vent in IV ATB abd iV clinimix - Current Medication List Current Medications: Active Medications Albuterol Sulfate (Ventolin 0.083% Nebulizer Soln -) 1 amp NEB Q4H PRN PRN Reason: SHORT OF BREATH/WHEEZING Allopurinol (Zyloprim -) 300 mg PO DAILY [facility] Last Admin: 05/20/19 09:20 Dose: Not Given Fentanyl (Sublimaze Injection -) 50 mcg IVPUSH Q2H PRN PRN Reason: PAIN LEVEL 1-5 Stop: 05/21/19 14:14 Last Admin: 05/20/19 22:13 Dose: 50 mcg IV Flush (Angelina-Cath Flush) 10 ml IVPUSH PRN PRN PRN Reason: protocol, maintain patency Last Admin: 05/20/19 09:21 Dose: 10 ml Ertapenem 1 gm/ Sodium (Chloride) 50 mls @ 100 mls/hr IVPB DAILY [facility] Last Admin: 05/20/19 09:37 Dose: 100 mls/hr Daptomycin 300 mg/ Sodium (Chloride) 50 mls @ 50 mls/hr IVPB DAILY@1800 [facility]; Protocol Last Admin: 05/20/19 17:28 Dose: 50 mls/hr Nicardipine HCl 25 mg/ (Dextrose) 250 mls @ 5 mls/hr IVPB TITR [facility]; Protocol Last Admin: 05/20/19 21:50 Dose: Not Given Amino Acids (Clinimix -) 1,000 mls @ 84 mls/hr IV Q12H [facility] Last Admin: 05/21/19 06:15 Dose: Not Given Dextrose (D5w -) 1,000 mls @ 42 mls/hr IV ASDIR [facility] Last Admin: 05/20/19 13:02 Dose: 42 mls/hr Lactobacillus Acidophilus (Bacid -) 1 tab PO DAILY [facility] Last Admin: 05/20/19 09:19 Dose: Not Given Lamivudine (Epivir Oral Solution -) 100 mg PO DAILY [facility] Last Admin: 05/20/19 09:19 Dose: Not Given Magnesium Chloride (Slow-Mag -) 64 mg PO DAILY [facility] Last Admin: 05/20/19 09:19 Dose: Not Given Multivitamins/Minerals (Infuvite Adult -) 10 ml IV DAILY [facility] Last Admin: 05/20/19 13:09 Dose: 10 ml Pantoprazole Sodium (Protonix Iv) 40 mg IVPUSH DAILY [facility] Last Admin: 05/20/19 09:21 Dose: 40 mg Valacyclovir HCl (Valtrex -) 500 mg PO DAILY [facility] Last Admin: 05/20/19 09:20 Dose: Not Given - Objective Vital Signs: Vital Signs Temperature 99.6 F 05/21/19 06:00 Pulse Rate 80 05/21/19 06:00 Respiratory Rate 22 H 05/21/19 06:00 Blood Pressure 117/62 05/21/19 06:00 O2 Sat by Pulse Oximetry (%) 99 05/20/19 22:32 Constitutional: Yes: No Distress, Calm Eyes: Yes: Conjunctiva Clear HENT: Yes: Atraumatic Neck: Yes: Supple Cardiovascular: Yes: Regular Rate and Rhythm Respiratory: Yes: Diminished Gastrointestinal: Yes: Soft. No: Tenderness Genitourinary: No: Hematuria Musculoskeletal: No: Joint Stiffness, Joint Swelling Extremities: No: Cold, Cool, Cyanosis Edema: Yes (hands ) Integumentary: Yes: Bruising Neurological: Yes: Alert Psychiatric: Yes: Alert. No: Agitated Labs: INR, PTT INR 1.25 (0.83-1.09) H 05/19/19 05:45 Fibrinogen 259.0 mg/dL (238-498) 05/19/19 05:45 - ....Imaging Other: Report Reviewed Assessment/Plan Patient is a 73 year old lady with a significant pmh of CLL, CHF, HTN, HBV admitted with fever. h/o UTis renal stones, and cellulitis; h/o UTI ESBL, sepsis , ARF/CRF, CLL and acute leukemia severe anemia s/p PRBC sp PLT PNA fever, leukemia with blastic transformation, respiratory failure; mec ventilation support in ICU heme ONC f/u; Transfuse Monodonor PLT and PRBCs as needed; f/u labs; sepsis on IV ATB broad spectrum per ID, f/u cultures; CXR low UO increased creatinine - Henley in, IVF; renal f/u DVT pfx - TEDs / SCDs; not on sq heparin or AC; falls PFX d/w ICU team d.w pt and staff - prognosis guarded; t time 35 min;
[2019-05-21 06:47] LABS: BLOOD UREA NITROGEN 52.1 mg/dL (7-18); CALCIUM 8.9 mg/dL (8.5-10.1); MAGNESIUM 1.7 mg/dL (1.8-2.4)
[2019-05-21 06:52] LABS: PHOSPHOROUS 0.8 mg/dL (2.5-4.9); POTASSIUM 2.7 mmol/L (3.5-5.1)
--- NOTE | 2019-05-21 07:59 | PN ---
Progress Note (short form) - Note Progress Note: Pulm/CCM SUBJECTIVE: Patient seen and examined in the ICU. -na normalized -cxr still with infiltrate -improved mental status CXR: R middle lobe/perihilar infiltrate, maybe worsened OBJECTIVE: Vital Signs Temp 99.6 F 05/21/19 06:00 Pulse 80 05/21/19 06:00 Resp 22 H 05/21/19 06:00 BP 117/62 05/21/19 06:00 Pulse Ox 99 05/20/19 22:32 Intake & Output 05/20/19 05/20/19 05/21/19 11:59 23:59 11:59 Intake Total 860 1058 1500 Output Total 300 850 550 Balance 560 208 950 Weight 52.435 kg 53.07 kg Intake: IV 860 1008 504 CLINIMIX 580 672 D5w - 1,000 ml @ 42 mls/ 280 336 504 hr IV ASDIR [facility] Rx#: [id number] IVPB 50 996 Output: Urine 300 850 550 Henley 300 850 550 Other: Voiding Method Indwelling Catheter Indwelling Catheter Bowel Movement No Active Medications Acetaminophen (Ofirmev Injection -) 1,000 mg IVPB Q6H PRN PRN Reason: FEVER Stop: 05/20/19 17:36 Last Admin: 05/20/19 09:20 Dose: 1,000 mg Allopurinol (Zyloprim -) 300 mg PO DAILY [facility] Last Admin: 05/20/19 09:20 Dose: Not Given IV Flush (Angelina-Cath Flush) 10 ml IVPUSH PRN PRN PRN Reason: protocol, maintain patency Last Admin: 05/20/19 09:21 Dose: 10 ml Ertapenem 1 gm/ Sodium (Chloride) 50 mls @ 100 mls/hr IVPB DAILY [facility] Last Admin: 05/20/19 09:37 Dose: 100 mls/hr Daptomycin 300 mg/ Sodium (Chloride) 50 mls @ 50 mls/hr IVPB DAILY@1800 [facility]; Protocol Last Admin: 05/19/19 17:32 Dose: 50 mls/hr Nicardipine HCl 25 mg/ (Dextrose) 250 mls @ 5 mls/hr IVPB TITR [facility]; Protocol Last Admin: 05/20/19 05:51 Dose: Not Given Amino Acids (Clinimix -) 1,000 mls @ 84 mls/hr IV Q12H [facility] Last Admin: 05/20/19 05:50 Dose: 84 mls/hr Dextrose (D5w -) 1,000 mls @ 42 mls/hr IV ASDIR [facility] Last Admin: 05/19/19 14:05 Dose: 42 mls/hr Lactobacillus Acidophilus (Bacid -) 1 tab PO DAILY [facility] Last Admin: 05/20/19 09:19 Dose: Not Given Lamivudine (Epivir Oral Solution -) 100 mg PO DAILY [facility] Last Admin: 05/20/19 09:19 Dose: Not Given Magnesium Chloride (Slow-Mag -) 64 mg PO DAILY [facility] Last Admin: 05/20/19 09:19 Dose: Not Given Multivitamins/Minerals (Infuvite Adult -) 10 ml IV DAILY [facility] Last Admin: 05/19/19 12:59 Dose: 10 ml Pantoprazole Sodium (Protonix Iv) 40 mg IVPUSH DAILY [facility] Last Admin: 05/20/19 09:21 Dose: 40 mg Valacyclovir HCl (Valtrex -) 500 mg PO DAILY [facility] Last Admin: 05/20/19 09:20 Dose: Not Given CBC, BMP 05/21/19 05:30 05/21/19 05:30 Gen: intubated, more awake Heart: RRR Lung: scattered rhonchi Abd: soft, nontender Ext: + edema ASSESSMENT AND PLAN: Acute Hypoxic Respiratory Failure Pneumonia likely Aspiration UTI Septic Shock Acute on Chronic Renal Failure AML Thrombocytopenia/Anemia Hypernatremia - continue antibiotics as per ID - f/u cultures - monitor CBC - transfuse plt less than 10 or less than 50 if bleeding, may give today inorder to obtain enteral access - transfuse as needed - Sodium now normal, cont to monitor - off pressors, maintain MAP >65 - hold all sedation to assess mental status - spontaneous breathing trials as tolerated - DVT/GI prophylaxis - Requires continued ICU monitoring Nathalia [facility] [id number]
[2019-05-21 08:04] LABS: PLATELET COUNT 14 K/MM3 (134-434)
[2019-05-21] MEDS: POTASSIUM CHLORIDE 20 MEQ PREMIX IVPB 100 ML IVPB SCH ×3 (09:19→11:20)
[2019-05-21] MEDS: ERTAPENEM SODIUM 1 GM in SODIUM CHLORIDE 50 ML IVPB SCH (10:21)
[2019-05-21] MEDS: LACTOBACILLUS ACIDOPHILUS 1 TABLET PO SCH (10:42)
[2019-05-21] MEDS: PANTOPRAZOLE SODIUM 40 MG VIAL IVPUSH SCH (10:42)
[2019-05-21] MEDS: MAGNESIUM CL 64 MG TABLET.SA PO SCH (10:42)
[2019-05-21] MEDS: lamiVUDine 10 MG/1 ML BULK BOTTLE PO SCH (10:42)
[2019-05-21] MEDS: ALLOPURINOL 300 MG TABLET (FP) PO SCH (10:43)
[2019-05-21] MEDS: valACYclovir HCL 500 MG TABLET (FP) PO SCH (10:43)
[2019-05-21] MEDS ORDERED: PT OWN MED DRAWER 7, Y5N ONE (11:15)
[2019-05-21] MEDS: MULTIVIT INJ. ADULT COMBO WITH VIT K 1 COMBO 10 ML VIAL IV SCH (11:30)
[2019-05-21] MEDS ORDERED: FUROSEMIDE 40 MG/4 ML INJECTABLE VIAL IVPUSH ONE ×3 (11:38→21:45)
[2019-05-21] MEDS ORDERED: FUROSEMIDE 40 MG/4 ML INJECTABLE VIAL ONE (12:03)
--- NOTE | 2019-05-21 15:51 | PN ---
Progress Note (short form) - Note Progress Note: covering dr scales s/p acute respiratory failure persistent fever thrombocytopenia s/p plt transfusions HTN EBER - hemodynamically mediated nonoliguric sedated and unresponsive. Hypernatremia free water deficits on hypotonic IVF and free water Current Medications Albuterol Sulfate (Ventolin 0.083% Nebulizer Soln -) 1 amp NEB Q4H PRN PRN Reason: SHORT OF BREATH/WHEEZING Allopurinol (Zyloprim -) 300 mg PO DAILY [facility] Last Admin: 05/21/19 10:43 Dose: Not Given IV Flush (Angelina-Cath Flush) 10 ml IVPUSH PRN PRN PRN Reason: protocol, maintain patency Last Admin: 05/20/19 09:21 Dose: 10 ml Ertapenem 1 gm/ Sodium (Chloride) 50 mls @ 100 mls/hr IVPB DAILY [facility] Last Admin: 05/21/19 10:21 Dose: 100 mls/hr Daptomycin 300 mg/ Sodium (Chloride) 50 mls @ 50 mls/hr IVPB DAILY@1800 [facility]; Protocol Last Admin: 05/20/19 17:28 Dose: 50 mls/hr Nicardipine HCl 25 mg/ (Dextrose) 250 mls @ 5 mls/hr IVPB TITR [facility]; Protocol Last Admin: 05/20/19 21:50 Dose: Not Given Amino Acids (Clinimix -) 1,000 mls @ 84 mls/hr IV Q12H [facility] Last Admin: 05/21/19 11:18 Dose: 84 mls/hr Lactobacillus Acidophilus (Bacid -) 1 tab PO DAILY [facility] Last Admin: 05/21/19 10:42 Dose: Not Given Lamivudine (Epivir Oral Solution -) 100 mg PO DAILY [facility] Last Admin: 05/21/19 10:42 Dose: Not Given Magnesium Chloride (Slow-Mag -) 64 mg PO DAILY [facility] Last Admin: 05/21/19 10:42 Dose: Not Given Multivitamins/Minerals (Infuvite Adult -) 10 ml IV DAILY [facility] Last Admin: 05/21/19 11:30 Dose: 10 ml Pantoprazole Sodium (Protonix Iv) 40 mg IVPUSH DAILY [facility] Last Admin: 05/21/19 10:42 Dose: 40 mg Valacyclovir HCl (Valtrex -) 500 mg PO DAILY [facility] Last Admin: 05/21/19 10:43 Dose: Not Given Last Vital Signs Temp Pulse Resp BP Pulse Ox 99 F 76 22 H 144/75 95 05/21/19 14:00 05/21/19 14:00 05/21/19 14:00 05/21/19 14:00 05/21/19 13:11 Lungs clear Heart reg Abd soft nontender Ext no edema CBC, BMP 05/21/19 05:30 05/21/19 05:30 CBC, BMP 05/20/19 05:28 05/20/19 05:28 Hypernatremia resolved Hypokalemia presisting/replaced Prerenal azotemia Plan- f/u labs
[2019-05-21] MEDS: DAPTOMYCIN 300 MG in SODIUM CHLORIDE 50 ML IVPB SCH (17:06)
--- NOTE | 2019-05-21 17:31 | PN ---
Progress Note, Physician History of Present Illness: Extubated. Mental status somewhat improving. Tries to speak. - Current Medication List Current Medications: Active Medications Albuterol Sulfate (Ventolin 0.083% Nebulizer Soln -) 1 amp NEB Q4H PRN PRN Reason: SHORT OF BREATH/WHEEZING Allopurinol (Zyloprim -) 300 mg PO DAILY [facility] Last Admin: 05/21/19 10:43 Dose: Not Given IV Flush (Angelina-Cath Flush) 10 ml IVPUSH PRN PRN PRN Reason: protocol, maintain patency Last Admin: 05/20/19 09:21 Dose: 10 ml Ertapenem 1 gm/ Sodium (Chloride) 50 mls @ 100 mls/hr IVPB DAILY [facility] Last Admin: 05/21/19 10:21 Dose: 100 mls/hr Daptomycin 300 mg/ Sodium (Chloride) 50 mls @ 50 mls/hr IVPB DAILY@1800 [facility]; Protocol Last Admin: 05/21/19 17:06 Dose: 50 mls/hr Nicardipine HCl 25 mg/ (Dextrose) 250 mls @ 5 mls/hr IVPB TITR [facility]; Protocol Last Admin: 05/20/19 21:50 Dose: Not Given Amino Acids (Clinimix -) 1,000 mls @ 84 mls/hr IV Q12H [facility] Last Admin: 05/21/19 11:18 Dose: 84 mls/hr Lactobacillus Acidophilus (Bacid -) 1 tab PO DAILY [facility] Last Admin: 05/21/19 10:42 Dose: Not Given Lamivudine (Epivir Oral Solution -) 100 mg PO DAILY [facility] Last Admin: 05/21/19 10:42 Dose: Not Given Magnesium Chloride (Slow-Mag -) 64 mg PO DAILY [facility] Last Admin: 05/21/19 10:42 Dose: Not Given Multivitamins/Minerals (Infuvite Adult -) 10 ml IV DAILY [facility] Last Admin: 05/21/19 11:30 Dose: 10 ml Pantoprazole Sodium (Protonix Iv) 40 mg IVPUSH DAILY [facility] Last Admin: 05/21/19 10:42 Dose: 40 mg Valacyclovir HCl (Valtrex -) 500 mg PO DAILY [facility] Last Admin: 05/21/19 10:43 Dose: Not Given - Objective Vital Signs: Vital Signs Temperature 99.7 F H 05/21/19 16:00 Pulse Rate 86 05/21/19 16:00 Respiratory Rate 25 H 05/21/19 16:00 Blood Pressure 118/63 05/21/19 16:00 O2 Sat by Pulse Oximetry (%) 94 L 05/21/19 17:26 Constitutional: Yes: No Distress Eyes: Yes: Conjunctiva Clear Respiratory: Yes: Regular Gastrointestinal: Yes: Soft. No: Distention Edema: No Labs: CBC, BMP 05/21/19 05:30 05/21/19 05:30 INR, PTT INR 1.25 (0.83-1.09) H 05/19/19 05:45 Fibrinogen 259.0 mg/dL (238-498) 05/19/19 05:45 Assessment/Plan 73F with CLL, MDSAML admitted with coag neg staph bacteremia and GNR UTI. Hospital course c/b AMS and acute hypoxic respiratory failure, extubated. off pressors, persistently febrile. Repeat infectious w/u pending. On dapto/ ertapenem Plts 14 today. Planned for 1 u MDP. No bleeding.
[2019-05-21] MEDS: KCL 10 MEQ IVPB 10 MEQ/100 ML INFUS.BAG IVPB SCH ×2 (19:36→20:14)
[2019-05-21] MEDS: NICARDIPINE 25 MG in DEXTROSE 5%-WATER - 240 ML IVPB SCH (20:40)
--- NOTE | 2019-05-21 20:57 | CONSULT ---
Consult - text type - Consultation Consultation Note: NEUROLOGY CONSULTATION is greatly appreciated: Events reviewed and discussed with RN. Patient examined with her daughter, Dayana, at the bedside. This 73 yo RH woman lives alone with health aide 20 hrs/week, although she was last home in early March. 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 Dayana gives h/o 4-5 years of cognitive decline although she has never been treated for dementia. Increasing anxiety and agitation over the last year. After many drug trials, did best on Quetiapine. Multiple admissions for infections. Now admitted after spiking temps with clinical evidence of pneumonia. On admission was give Zyprexa and xanax with sedation. Now extubated. SUSANNA: Neck rigid in all directions. No bruits. Cor reg. Stertorous respirations Neuro: Awake, alert. Follows most commands Cannot formally test mentation due to no speech yet. Glabella and snout are present. Full visual tucker to threat. No facial weakness. Elevates both arms and symmetrical grasps on command. Areflexic in legs. Toes downgoing Grimaces and withdraws all fours to pinch IMP: Non-focal exam Although cognitive testing is not yet possible due to recent extubation, exam and history support a chronic OMS, probably Alzheimers. Will worsen with Toxic-metabolic factors such as fever, infection and drugs. SUGGEST: Correct Cl-; PO4: and Mg++ Check B12, TSH, RPR Use quetiapine (seroquel) for anxiety and agitation and avoid benzodiazepines and other neuroleptics Thank you very much, Alexandro Truong MD
[2019-05-21] MEDS ORDERED: LIDOCAINE VISCOUS 2% ORAL/TOP 20 ML UNIT-DOSE CUP MM ONE (21:30)
[2019-05-21] MEDS: PHENYLEPHRINE 0.5% NASAL SPRAY 15 ML BOTTLE NS SCH (22:32)
[2019-05-22] MEDS: ALBUTEROL SO4 0.083% IH SOL 2.5 MG/3 ML VIAL.NEB. NEB PRN ×2 (00:46→20:29)
[2019-05-22] MEDS: AMINO ACIDS 4.25%/D5W 1,000 ML IV SCH ×3 (06:02→19:25)
--- NOTE | 2019-05-22 06:21 | PN ---
Progress Note, Physician Chief Complaint: in ICU extubated; VSS NAD awake alert some confusion but able to talk denies pain; afebrile today; K 2.9 after repletion (ordered more) and PLT 34 after 1 U PLT no bleeding; - Current Medication List Current Medications: Active Medications Albuterol Sulfate (Ventolin 0.083% Nebulizer Soln -) 1 amp NEB Q4H PRN PRN Reason: SHORT OF BREATH/WHEEZING Last Admin: 05/22/19 00:46 Dose: 1 amp Allopurinol (Zyloprim -) 300 mg PO DAILY REPLACED BY [facility] Last Admin: 05/21/19 10:43 Dose: Not Given IV Flush (Angelina-Cath Flush) 10 ml IVPUSH PRN PRN PRN Reason: protocol, maintain patency Last Admin: 05/20/19 09:21 Dose: 10 ml Ertapenem 1 gm/ Sodium (Chloride) 50 mls @ 100 mls/hr IVPB DAILY RYAN Last Admin: 05/21/19 10:21 Dose: 100 mls/hr Daptomycin 300 mg/ Sodium (Chloride) 50 mls @ 50 mls/hr IVPB DAILY@1800 RYAN; Protocol Last Admin: 05/21/19 17:06 Dose: 50 mls/hr Nicardipine HCl 25 mg/ (Dextrose) 250 mls @ 5 mls/hr IVPB TITR RYAN; Protocol Last Admin: 05/21/19 20:40 Dose: Not Given Amino Acids (Clinimix -) 1,000 mls @ 84 mls/hr IV Q12H RYAN Last Admin: 05/22/19 06:02 Dose: 84 mls/hr Lactobacillus Acidophilus (Bacid -) 1 tab PO DAILY RYAN Last Admin: 05/21/19 10:42 Dose: Not Given Lamivudine (Epivir Oral Solution -) 100 mg PO DAILY RYAN Last Admin: 05/21/19 10:42 Dose: Not Given Magnesium Chloride (Slow-Mag -) 64 mg PO DAILY REPLACED BY [facility] Last Admin: 05/21/19 10:42 Dose: Not Given Multivitamins/Minerals (Infuvite Adult -) 10 ml IV DAILY RYAN Last Admin: 05/21/19 11:30 Dose: 10 ml Pantoprazole Sodium (Protonix Iv) 40 mg IVPUSH DAILY REPLACED BY [facility] Last Admin: 05/21/19 10:42 Dose: 40 mg Phenylephrine HCl (Rebel-Synephrine 0.5% Nasal [place] -) 1 spray NS BID REPLACED BY [facility] Last Admin: 05/21/19 22:32 Dose: 1 spray Valacyclovir HCl (Valtrex -) 500 mg PO DAILY REPLACED BY [facility] Last Admin: 05/21/19 10:43 Dose: Not Given - Objective Vital Signs: Vital Signs Temperature 98.5 F 05/22/19 04:00 Pulse Rate 67 05/22/19 04:00 Respiratory Rate 05/22/19 04:00 Blood Pressure 120/89 05/22/19 04:00 O2 Sat by Pulse Oximetry (%) 97 05/21/19 21:00 Constitutional: Yes: No Distress, Calm Eyes: Yes: Conjunctiva Clear HENT: Yes: Atraumatic Neck: Yes: Supple Cardiovascular: Yes: Regular Rate and Rhythm Respiratory: Yes: Diminished Gastrointestinal: Yes: Soft. No: Tenderness Genitourinary: No: Hematuria Musculoskeletal: No: Joint Stiffness, Joint Swelling Extremities: No: Cold, Cool, Cyanosis Edema: No Integumentary: Yes: Bruising. No: Rash, Venous Stasis Changes Neurological: Yes: Alert ...Motor Strength: WNL Psychiatric: Yes: Alert. No: Agitated Labs: CBC, BMP 05/21/19 05:30 05/21/19 05:30 INR, PTT INR 1.25 (0.83-1.09) H 05/19/19 05:45 Fibrinogen 259.0 mg/dL (238-498) 05/19/19 05:45 - ....Imaging Other: Report Reviewed Assessment/Plan Patient is a 73 year old lady with a significant pmh of CLL, CHF, HTN, HBV admitted with fever. h/o UTis renal stones, and cellulitis; h/o UTI ESBL, sepsis , ARF/CRF, CLL and acute leukemia severe anemia s/p PRBC sp PLT s/p UTI PNA sepsis; leukemia with blastic transformation, respiratory failure; s.p extubation; f/u CXR heme ONC f/u; Transfuse Monodonor PLT and PRBCs as needed; f/u labs; sepsis on IV ATB broad spectrum per ID, f/u cultures; CXR CRD; labs and renal f/u DVT pfx - TEDs / SCDs; not on sq heparin or AC; falls PFX d/w ICU team d.w pt and staff - prognosis guarded; t time 36 min; called daughter Dayana
[2019-05-22 07:14] LABS: EOS % 1.5 % (0-4.5); HEMATOCRIT 25.6 % (32.4-45.2); HEMOGLOBIN 8.7 GM/dL (10.7-15.3); LYMPH % 15.8 % (8-40); MCH 30.1 pg (25.7-33.7); MCHC 34.2 g/dl (32.0-36.0); MEAN CELL VOLUME 87.9 fl (80-96); MEAN PLT VOLUME 8.5 fl (7.5-11.1); MONO % 55.4 % (3.8-10.2); NEUT % 26.3 % (42.8-82.8); RBC 2.91 M/mm3 (3.60-5.2); RDW 15.1 % (11.6-15.6)
[2019-05-22 07:44] LABS: ALBUMIN 2.7 g/dl (3.4-5.0); BILIRUBIN,TOTAL 0.6 mg/dL (0.2-1); BLOOD UREA NITROGEN 43.3 mg/dL (7-18); CALCIUM 9.1 mg/dL (8.5-10.1); CREATININE 0.9 mg/dL (0.55-1.3); TOT PROT 5.8 g/dl (6.4-8.2)
[2019-05-22 08:07] LABS: PLATELET COUNT 34 K/MM3 (134-434)
[2019-05-22 08:10] LABS: POTASSIUM 2.9 mmol/L (3.5-5.1)
[2019-05-22] MEDS ORDERED: POTASSIUM CHLORIDE 20 MEQ PREMIX IVPB 100 ML IVPB SCH (09:00)
[2019-05-22] MEDS ORDERED: PT OWN MED DRAWER 7, Y5N ONE ×2 (09:49→11:13)
[2019-05-22] MEDS: PANTOPRAZOLE SODIUM 40 MG VIAL IVPUSH SCH (10:27)
[2019-05-22] MEDS: ERTAPENEM SODIUM 1 GM in SODIUM CHLORIDE 50 ML IVPB SCH (10:27)
[2019-05-22] MEDS: lamiVUDine 10 MG/1 ML BULK BOTTLE PO SCH (10:29)
[2019-05-22] MEDS: LACTOBACILLUS ACIDOPHILUS 1 TABLET PO SCH (10:29)
[2019-05-22] MEDS: MAGNESIUM CL 64 MG TABLET.SA PO SCH (10:29)
[2019-05-22] MEDS: PHENYLEPHRINE 0.5% NASAL SPRAY 15 ML BOTTLE NS SCH ×2 (10:29→21:04)
[2019-05-22] MEDS: ALLOPURINOL 300 MG TABLET (FP) PO SCH (10:30)
[2019-05-22] MEDS: valACYclovir HCL 500 MG TABLET (FP) PO SCH (10:30)
[2019-05-22] MEDS: POTASSIUM CHLORIDE 20 MEQ PREMIX IVPB 100 ML IVPB SCH ×3 (11:10→13:15)
[2019-05-22 12:08] LABS: ANISOCYTOSIS 1+; MACROCYTOSIS 0; PLATELET ESTIMATE DECREASED
[2019-05-22 12:56] LABS: MAGNESIUM 1.8 mg/dL (1.8-2.4)
--- NOTE | 2019-05-22 12:56 | PN ---
Teaching Attending Note Name of Resident: Neymar Leo ATTENDING PHYSICIAN STATEMENT I saw and evaluated the patient. I reviewed the resident's note and discussed the case with the resident. I agree with the resident's findings and plan as documented. SUBJECTIVE: Patient seen and examined in the ICU. Remains exubated and in HFOT. Awake and alert but confused. No pressors. Intake & Output 05/19/19 05/20/19 05/21/19 05/22/19 23:59 23:59 23:59 23:59 Intake Total 2688 1918 3307 588 Output Total 2004 1150 1950 1500 Balance 531 519 3962 912 Weight 114 lb 14.4 oz 115 lb 9.6 oz 117 lb 120 lb 6.4 oz Last Vital Signs Temp Pulse Resp BP Pulse Ox 97.3 F L 82 24 H 138/67 99 05/22/19 12:33 05/22/19 12:33 05/22/19 12:33 05/22/19 12:33 05/22/19 09:13 Active Medications Albuterol Sulfate (Ventolin 0.083% Nebulizer Soln -) 1 amp NEB Q4H PRN PRN Reason: SHORT OF BREATH/WHEEZING Last Admin: 05/22/19 00:46 Dose: 1 amp Allopurinol (Zyloprim -) 300 mg PO DAILY [facility] Last Admin: 05/22/19 10:30 Dose: Not Given IV Flush (Angelina-Cath Flush) 10 ml IVPUSH PRN PRN PRN Reason: protocol, maintain patency Last Admin: 05/20/19 09:21 Dose: 10 ml Ertapenem 1 gm/ Sodium (Chloride) 50 mls @ 100 mls/hr IVPB DAILY [facility]AN Last Admin: 05/22/19 10:27 Dose: 100 mls/hr Daptomycin 300 mg/ Sodium (Chloride) 50 mls @ 50 mls/hr IVPB DAILY@1800 RYAN; Protocol Last Admin: 05/21/19 17:06 Dose: 50 mls/hr Nicardipine HCl 25 mg/ (Dextrose) 250 mls @ 5 mls/hr IVPB TITR RYAN; Protocol Last Admin: 05/21/19 20:40 Dose: Not Given Amino Acids (Clinimix -) 1,000 mls @ 84 mls/hr IV Q12H RYAN Last Admin: 05/22/19 06:02 Dose: 84 mls/hr Lactobacillus Acidophilus (Bacid -) 1 tab PO DAILY [facility] Last Admin: 05/22/19 10:29 Dose: Not Given Lamivudine (Epivir Oral Solution -) 100 mg PO DAILY [facility] Last Admin: 05/22/19 10:29 Dose: Not Given Magnesium Chloride (Slow-Mag -) 64 mg PO DAILY [facility] Last Admin: 05/22/19 10:29 Dose: Not Given Multivitamins/Minerals (Infuvite Adult -) 10 ml IV DAILY [facility] Last Admin: 05/21/19 11:30 Dose: 10 ml Pantoprazole Sodium (Protonix Iv) 40 mg IVPUSH DAILY [facility] Last Admin: 05/22/19 10:27 Dose: 40 mg Phenylephrine HCl (Rebel-Synephrine 0.5% Nasal [place] -) 1 spray NS BID [facility] Last Admin: 05/22/19 10:29 Dose: 1 spray Valacyclovir HCl (Valtrex -) 500 mg PO DAILY [facility] Last Admin: 05/22/19 10:30 Dose: Not Given Gen: Extubated, awake and alert, confused Heart: RRR Lung: scattered rhonchi Abd: soft, nontender Ext: + edema Laboratory Results - last 24 hr 05/22/19 05/22/19 06:00 06:00 WBC 15.0 H RBC 2.91 L Hgb 8.7 L Hct 25.6 L MCV 87.9 MCH 30.1 MCHC 34.2 RDW 15.1 Plt Count 34 L* D MPV 8.5 Absolute Neuts (auto) 3.9 Neutrophils % 26.3 L D Neutrophils % (Manual) 9.7 L Band Neutrophils % 4.8 Lymphocytes % 15.8 D Lymphocytes % (Manual) 30.1 D Monocytes % 55.4 H Monocytes % (Manual) 27 H D Eosinophils % 1.5 Eosinophils % (Manual) 2.9 D Basophils % 1.0 Basophils % (Manual) 0.0 Myelocytes % (Man) 4 H D Promyelocytes % (Man) 0 D Blast Cells % (Manual) 5 H Nucleated RBC % 1 H Metamyelocytes 6 H D Hypochromia 0 Platelet Estimate Decreased Polychromasia 1+ Poikilocytosis 1+ Anisocytosis 1+ Microcytosis 1+ Macrocytosis 0 Greig Cells 1+ Sodium 143 Potassium 2.9 L* Chloride 110 H Carbon Dioxide 28 Anion Gap 5 L BUN 43.3 H Creatinine 0.9 Est GFR (CKD-EPI)AfAm 73.52 Est GFR (CKD-EPI)NonAf 63.43 Random Glucose 142 H Calcium 9.1 Magnesium 1.8 Total Bilirubin 0.6 AST 24 ALT 16 Alkaline Phosphatase 89 Total Protein 5.8 L Albumin 2.7 L ASSESSMENT AND PLAN: Acute Hypoxic Respiratory Failure Pneumonia likely Aspiration UTI Septic Shock Acute on Chronic Renal Failure AML Thrombocytopenia/Anemia Hypernatremia - ABX - monitor CBC - Normal transfusion threshold - free water replacement - Aspiration precautions - DVT/GI prophylaxis - Requires continued ICU monitoring for tenuous overall status Dr Saucedo
--- NOTE | 2019-05-22 14:14 | PN ---
Progress Note, Physician History of Present Illness: Pt seen and examined at bedside. SHe is now extubated. She remains in the ICU. - Current Medication List Current Medications: Active Medications Albuterol Sulfate (Ventolin 0.083% Nebulizer Soln -) 1 amp NEB Q4H PRN PRN Reason: SHORT OF BREATH/WHEEZING Last Admin: 05/22/19 00:46 Dose: 1 amp Allopurinol (Zyloprim -) [address] [facility] Last Admin: 05/22/19 10:30 Dose: Not Given IV Flush (Angelina-Cath Flush) 10 ml IVPUSH PRN PRN PRN Reason: protocol, maintain patency Last Admin: 05/20/19 09:21 Dose: 10 ml Ertapenem 1 gm/ Sodium (Chloride) 50 mls @ 100 mls/hr IVPB DAILY [facility] Last Admin: 05/22/19 10:27 Dose: 100 mls/hr Daptomycin 300 mg/ Sodium (Chloride) 50 mls @ 50 mls/hr IVPB DAILY@1800 RYAN; Protocol Last Admin: 05/21/19 17:06 Dose: 50 mls/hr Nicardipine HCl 25 mg/ (Dextrose) 250 mls @ 5 mls/hr IVPB TITR RYAN; Protocol Last Admin: 05/21/19 20:40 Dose: Not Given Amino Acids (Clinimix -) 1,000 mls @ 84 mls/hr IV Q12H [facility]AN Last Admin: 05/22/19 06:02 Dose: 84 mls/hr Lactobacillus Acidophilus (Bacid -) 1 tab PO DAILY [facility] Last Admin: 05/22/19 10:29 Dose: Not Given Lamivudine (Epivir Oral Solution -) 100 mg PO DAILY [facility] Last Admin: 05/22/19 10:29 Dose: Not Given Magnesium Chloride (Slow-Mag -) 64 mg PO DAILY [facility] Last Admin: 05/22/19 10:29 Dose: Not Given Multivitamins/Minerals (Infuvite Adult -) 10 ml IV DAILY [facility] Last Admin: 05/21/19 11:30 Dose: 10 ml Pantoprazole Sodium (Protonix Iv) [address] [facility] Last Admin: 05/22/19 10:27 Dose: 40 mg Phenylephrine HCl (Rebel-Synephrine 0.5% Nasal [place] -) [address] [facility] Last Admin: 05/22/19 10:29 Dose: 1 spray Valacyclovir HCl (Valtrex -) 500 mg PO DAILY [facility] Last Admin: 05/22/19 10:30 Dose: Not Given - Objective Vital Signs: Vital Signs Temperature 97.3 F L 05/22/19 12:33 Pulse Rate 82 05/22/19 12:33 Respiratory Rate 24 H 05/22/19 12:33 Blood Pressure 138/67 05/22/19 12:33 O2 Sat by Pulse Oximetry (%) 99 05/22/19 09:13 Constitutional: Yes: Calm Eyes: Yes: Conjunctiva Clear HENT: Yes: Atraumatic Neck: Yes: Supple Cardiovascular: Yes: S1, S2 Respiratory: Yes: On Nasal O2 Gastrointestinal: Yes: Normal Bowel Sounds, Soft Genitourinary: Yes: Henley Present Musculoskeletal: Yes: Muscle Weakness Edema: No Neurological: Yes: Confusion Labs: CBC, BMP 05/22/19 06:00 05/22/19 06:00 INR, PTT INR 1.25 (0.83-1.09) H 05/19/19 05:45 Fibrinogen 259.0 mg/dL (238-498) 05/19/19 05:45 - ....Imaging Chest X-ray: Report Reviewed Assessment/Plan Current Medications Generic Name Dose Route Start Last Admin Trade Name Freq PRN Reason Stop Dose Admin Albuterol Sulfate 1 amp 05/20/19 14:13 05/22/19 00:46 Ventolin 0.083% Nebulizer Soln - NEB 1 amp Q4H PRN Administration SHORT OF BREATH/WHEEZING Allopurinol 300 mg 05/12/19 10:00 05/22/19 10:30 Zyloprim - PO Not Given DAILY RYAN IV Flush 10 ml 05/14/19 23:31 05/20/19 09:21 Angelina-Cath Flush IVPUSH 10 ml PRN PRN Administration protocol, maintain patency Ertapenem 1 gm/ Sodium 50 mls @ 100 mls/hr 05/09/19 16:30 05/22/19 10:27 Chloride IVPB 100 mls/hr DAILY RYAN Administration Daptomycin 300 mg/ Sodium 50 mls @ 50 mls/hr 05/09/19 18:00 05/21/19 17:06 Chloride IVPB 50 mls/hr DAILY@1800 RYAN Administration Protocol Nicardipine HCl 25 mg/ 250 mls @ 5 mls/hr 05/17/19 20:30 05/21/19 20:40 Dextrose IVPB Not Given TITR RYAN Protocol 0.5 MG/HR Amino Acids 1,000 mls @ 84 mls/hr 05/18/19 19:00 05/22/19 06:02 Clinimix - IV 84 mls/hr Q12H RYAN Administration Lactobacillus Acidophilus 1 tab 05/06/19 10:00 05/22/19 10:29 Bacid - PO Not Given DAILY RYAN Lamivudine 100 mg 05/04/19 10:00 05/22/19 10:29 Epivir Oral Solution - PO Not Given DAILY RYAN Magnesium Chloride 64 mg 05/09/19 11:30 05/22/19 10:29 Slow-Mag - PO Not Given DAILY RYAN Multivitamins/Minerals 10 ml 05/19/19 10:00 05/21/19 11:30 Infuvite Adult - IV 10 ml DAILY RYAN Administration Pantoprazole Sodium 40 mg 05/18/19 10:00 05/22/19 10:27 Protonix Iv IVPUSH 40 mg DAILY RYAN Administration Phenylephrine HCl 1 spray 05/21/19 22:00 05/22/19 10:29 Rebel-Synephrine 0.5% Nasal [place] - NS 1 spray BID RYAN Administration Valacyclovir HCl 500 mg 05/12/19 10:00 05/22/19 10:30 Valtrex - PO Not Given DAILY [facility] Laboratory Tests 05/22/19 06:00 Sodium 143 Potassium 2.9 L* Creatinine 0.9 1. EBER 2. CKD stage 3 3. Chronic hydronephrosis 4. Fevers 5. Acute on chronic anemia 6. Hyponatremia 7. hypernatremia Plan - renal function improved - replace potassium - cont clinimix, can decrease rate - hypotension likely contributed to eber - discussed with ICU
--- NOTE | 2019-05-22 14:54 | CONSULT ---
Admitting History and Physical - Primary Care Physician PCP: Sabi Jordan S - Admission History of Present Illness: Per EMR 73 y/o with a past medical history of CLL, CHF, HTN, HBV who is admitted for sepsis 05/04/2019.. PNA likely aspiration. AML. Hypernatremia noted. Septic shock. Low platelet count noted, unable to place NGT/OGT due to bleed. acute on chronic renal failure Intubated 05/15- extubated 05/21. Selected Entries 05/22/19 05/22/19 05/22/19 00:00 02:00 04:00 Lunch Temperature 98.5 F 98.3 F 98.5 F 05/22/19 05/22/19 05/22/19 06:00 08:00 09:13 Lunch NPO Temperature 98.8 F 99 F 05/22/19 05/22/19 10:23 12:33 Lunch Temperature 99 F 97.3 F L Laboratory Tests 05/18/19 05/19/19 05/20/19 05:15 05:45 05:28 WBC 10.3 H 7.5 8.4 05/21/19 05/22/19 05:30 06:00 WBC 14.2 H 15.0 H Seen bedside, Hi-eliseo, verbal but confused, moist cough. History Source: Medical Record Limitations to Obtaining History: Clinical Condition, Dementia - Past Medical History [employer]ENT[employer]IVE [employer]: Yes: Dementia Cardiovascular: Yes: HTN Gastrointestinal: Yes: Diverticulosis (on CT scan), GI Bleed (02/13 post- sphincterotomy bleed) Hepatobiliary: Yes: Cholelithiasis, Choledocholithiasis (with cholangitis 02/13 requring ERCP & sphincterotomy complicated by a post-sphincterotomy bleed ) Renal/: Yes: Renal Calculi ...: No Heme/Onc: Yes: Anemia, Cancer (CLL- had bone marrow at [facility] recently), Other ( thalassemia) Psych: Yes: Anxiety Musculoskeletal: Yes: Chronic low back pain - Past Surgical History Past Surgical History: Yes: Tonsillectomy, Upper Endoscopy - Smoking History Smoking history: Never smoked Have you smoked in the past 12 months: No Aproximately how many cigarettes per day: 0 - Alcohol/Substance Use Hx Alcohol Use: No History of Substance Use: reports: None - Social History ADL: Independent 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 of Recent Travel: No History - Admission Reason For Visit: TRANSFUSION-DEPENDENT ANEMIA, FEVER - Diagnostics X-ray: Report Reviewed - General Mental Status: Awake and Alert, Vague, Confused Attention: Distractible Ability to Follow Directions: Fair Head/Neck Control: Needs Assist (head extended, stiff) - Hearing Hearing: Normal Speech Evaluation - Communication Primary Language: [id number] Communication: Yes: Simple Responses Oral Expression Ability: Yes: Mild Impairment - Speech Production Intelligibility: Yes: Mildly Impaired - Speech Characteristics Voice Loudness: Normal Voice Pitch: Yes: Normal Voice Phonatory-based Quality: Yes: Hoarse, Dysphonia Nasal Resonance: Normal Articulation: Yes: Imprecise Rate of Speech: Too Slow - Language/Auditory Comprehension Follows: Yes: 1 Stage Simple Commands - Language/Verbal Expression Functional Communication Status: Yes: Mildly Impaired, Moderately Impaired - Swallow Evaluation/Bedside Assessment Current Nutritional Intake: NPO Facial Symmetry at Rest: Symmetrical Lingual Movement: Symmetric Lingual Speed of Movement: Reduced Lingual Movement Strgth Against Opposition: Reduced Laryngeal Elevation: Impaired Laryngeal Movement: Reduced Excursion, Labored,delay initiation, Reduced Velocity Rate of Intake: Slow/Holding Labial Seal: WFL Oral Prep Time: Increased A-P Transit: Impaired Timing of Swallow: Delayed Coughing/Throat Clear: Yes ( moist cough before intake, more so after trial of 1 /3 tsp twice ) Recommendations - Speech Evaluation, Impression/Plan Impression: Hi-eliseo, verbal but confused, moist cough. Impaired head support, extended, stiff. Swallow slow , delayed, reduced excursion, additional cough after trials. Aspiration? - Disposition Discharge to: To be Determined - Dysphagia Impressions/Plan Swallowing Skills: Impaired Dysphagia Impressions: Risk of Aspiration, Ongoing Evaluation, Suspect Aspiration *Silent aspiration: cannot be R/O at bedside Recommendations: Modified Barium Swallow (will repeat bedside eval-likely needs mbs to r/o aspiration) - Recommendations Diet Consistency: NPO Liquids: NPO
--- NOTE | 2019-05-22 15:35 | PN ---
Physical Exam: SUBJECTIVE: Patient seen and examined Extubated yesterday and tolerating HFNC. Patient following commands. HypoK yesterday s/p 60mg IV repletion. s/p 1unit platelet yesterday for platelet 14. No overnight events. OBJECTIVE: Vital Signs Period Temp Pulse Resp BP Sys/Borjas Pulse Ox Last 24 Hr 97.3 F-99.7 F 67-86 19-26 112-138/61-93 94-99 GENERAL: awake, responsive, alert and oriented x2 HEAD: NC/AT EYES: sclera anicteric, conjunctiva clear. No ptosis. ENT: Ears normal, nares patent, dried blood in mouth. ETT at 18cm at the lips NECK: Trachea midline, full range of motion, supple. LUNGS: Breath sounds equal, mildly coarse bilaterally, no wheezes, no crackles. Vent 400, 14, 5, 40% HEART: Regular rate and rhythm, S1, S2 without murmur, rub or gallop. Right upper chest with chemoport ABDOMEN: Soft, nontender, nondistended, normoactive bowel sounds, no guarding, no rebound. EXTREMITIES: 2+ pulses, warm, well-perfused, pitting edema to BUE, ptechiae to BUE NEUROLOGICAL: off sedation, not responding to sternal rub. Pupils responding to light SKIN: Warm, dry, ptechiae at BUE Laboratory Results - last 24 hr 05/22/19 05/22/19 06:00 06:00 WBC 15.0 H RBC 2.91 L Hgb 8.7 L Hct 25.6 L MCV 87.9 MCH 30.1 MCHC 34.2 RDW 15.1 Plt Count 34 L* D MPV 8.5 Absolute Neuts (auto) 3.9 Neutrophils % 26.3 L D Neutrophils % (Manual) 9.7 L Band Neutrophils % 4.8 Lymphocytes % 15.8 D Lymphocytes % (Manual) 30.1 D Monocytes % 55.4 H Monocytes % (Manual) 27 H D Eosinophils % 1.5 Eosinophils % (Manual) 2.9 D Basophils % 1.0 Basophils % (Manual) 0.0 Myelocytes % (Man) 4 H D Promyelocytes % (Man) 0 D Blast Cells % (Manual) 5 H Nucleated RBC % 1 H Metamyelocytes 6 H D Hypochromia 0 Platelet Estimate Decreased Polychromasia 1+ Poikilocytosis 1+ Anisocytosis 1+ Microcytosis 1+ Macrocytosis 0 Kady Cells 1+ Sodium 143 Potassium 2.9 L* Chloride 110 H Carbon Dioxide 28 Anion Gap 5 L BUN 43.3 H Creatinine 0.9 Est GFR (CKD-EPI)AfAm 73.52 Est GFR (CKD-EPI)NonAf 63.43 Random Glucose 142 H Calcium 9.1 Magnesium 1.8 Total Bilirubin 0.6 AST 24 ALT 16 Alkaline Phosphatase 89 Total Protein 5.8 L Albumin 2.7 L Active Medications Generic Name Dose Route Start Last Admin Trade Name Freq PRN Reason Stop Dose Admin Albuterol Sulfate 1 amp 05/20/19 14:13 05/22/19 00:46 Ventolin 0.083% Nebulizer Soln - NEB 1 amp Q4H PRN Administration SHORT OF BREATH/WHEEZING Allopurinol 300 mg 05/12/19 10:00 05/22/19 10:30 Zyloprim - PO Not Given DAILY RYAN IV Flush 10 ml 05/14/19 23:31 05/20/19 09:21 Angelina-Cath Flush IVPUSH 10 ml PRN PRN Administration protocol, maintain patency Nicardipine HCl 25 mg/ 250 mls @ 5 mls/hr 05/17/19 20:30 05/21/19 20:40 Dextrose IVPB Not Given TITR RYAN Protocol 0.5 MG/HR Amino Acids 1,000 mls @ 84 mls/hr 05/18/19 19:00 05/22/19 06:02 Clinimix - IV 84 mls/hr Q12H RYAN Administration Lactobacillus Acidophilus 1 tab 05/06/19 10:00 05/22/19 10:29 Bacid - PO Not Given DAILY RYAN Lamivudine 100 mg 05/04/19 10:00 05/22/19 10:29 Epivir Oral Solution - PO Not Given DAILY RYAN Magnesium Chloride 64 mg 05/09/19 11:30 05/22/19 10:29 Slow-Mag - PO Not Given DAILY RYAN Multivitamins/Minerals 10 ml 05/19/19 10:00 05/21/19 11:30 Infuvite Adult - IV 10 ml DAILY RYAN Administration Pantoprazole Sodium 40 mg 05/18/19 10:00 05/22/19 10:27 Protonix Iv IVPUSH 40 mg DAILY RYAN Administration Phenylephrine HCl 1 spray 05/21/19 22:00 05/22/19 10:29 Rebel-Synephrine 0.5% Nasal [place] - NS 1 spray BID RYAN Administration Valacyclovir HCl 500 mg 05/12/19 10:00 05/22/19 10:30 Valtrex - PO Not Given DAILY [facility] ASSESSMENT/PLAN: 73F w/ pmh of HTN, HLD, CHF, HFpEF, dementia, HBV, MDS, 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 Fevers thought 2/2 to infections vs AML-related. UCX grew citrobacter and E faecalis, BCX grew staph. Recurrent fevers; on daptomycin, ertapenem, lamivudine, valacyclovir. Intubated on due to lethargy with inability to protect airway; extubated 05/21 NEURO # Lethargy --likely 2/2 sepsis and hospital benzodiazapenes # Dementia > CTH: no acute process - extubated and off sedation; a&ox2, follows commands -with LUE 05/03 str compared to right side, unknown if new findings; will contact Dr Jordan to discuss CARDIO # HFpEF --not in excerbation # HTN > EKG(05/03/19): NSR, QTc 427 - BP control:off cardene, HDS RESPIR - HFNC with sats 100%; tolerating well without issues GI - NPO - speech and swallow eval RENAL #EBER > Cr(baseline ~1): currently improved to baseline - NephroDuyen) consulted: --likely EBRE 2/2 sepsis; may improve with hemodynamics --Phos low 0.8 and K 2.9; 60mg IV K and PM rechecks ID/HEME # Sepsis 2/2 to UTI with bacteremia, high fevers # Thrombocytopenia # Anemia # AML # recurrent fevers --likely 2/2 to infection and/or AML > BCX(05/03/19): Staph Auricularis, Staphy Epidermidis, Staph Coag > UCX(05/03, 05/04): ESBL Ecoli, E Faecalis; Citrobacter > repeat BCX, UCX, UA, Sputum Cx --pending - abx regimen: Ertapenem and daptomycin - platelet; will maintain goals plt >20k - pRBC as need to keep Hgb >7 FEN - heplock - NPO - holding off on NGT until plt improved to >50k PPX - pantoprazole - SCDs as pt has low plt - PT/OT Dispo: will continue to monitor pending further workup for acute change in status - FULL CODE; ongoing GOC discussion with family given tenuous clinical status Visit type - Emergency Visit Emergency Visit: No - New Patient This patient is new to me today: No - Critical Care Critical Care patient: Yes Total Critical Care Time (in minutes): 36 Critical Care Statement: The care of this patient involved high complexity decision making to prevent further life threatening deterioration of the patient 's condition and/or to evaluate & treat vital organ system(s) failure or risk of failure. ATTENDING PHYSICIAN STATEMENT I saw and evaluated the patient. I reviewed the resident's note and discussed the case with the resident. I agree with the resident's findings and plan as documented. SUBJECTIVE: OBJECTIVE: ASSESSMENT AND PLAN:
--- NOTE | 2019-05-22 15:36 | PN ---
Progress Note, Physician History of Present Illness: EXTUBATED AWAKE BUT CONFUSED OM HIGH FLOW O2 TEMPS DOWN AFEBRILE WBC 15 K 5% BLASTS - Current Medication List Current Medications: Active Medications Albuterol Sulfate (Ventolin 0.083% Nebulizer Soln -) 1 amp NEB Q4H PRN PRN Reason: SHORT OF BREATH/WHEEZING Last Admin: 05/22/19 00:46 Dose: 1 amp Allopurinol (Zyloprim -) 300 mg PO DAILY [facility] Last Admin: 05/22/19 10:30 Dose: Not Given IV Flush (Angelina-Cath Flush) 10 ml IVPUSH PRN PRN PRN Reason: protocol, maintain patency Last Admin: 05/20/19 09:21 Dose: 10 ml Nicardipine HCl 25 mg/ (Dextrose) 250 mls @ 5 mls/hr IVPB TITR RYAN; Protocol Last Admin: 05/21/19 20:40 Dose: Not Given Amino Acids (Clinimix -) 1,000 mls @ 84 mls/hr IV Q12H [facility] Last Admin: 05/22/19 06:02 Dose: 84 mls/hr Lactobacillus Acidophilus (Bacid -) 1 tab PO DAILY [facility] Last Admin: 05/22/19 10:29 Dose: Not Given Lamivudine (Epivir Oral Solution -) 100 mg PO DAILY [facility] Last Admin: 05/22/19 10:29 Dose: Not Given Magnesium Chloride (Slow-Mag -) 64 mg PO DAILY [facility] Last Admin: 05/22/19 10:29 Dose: Not Given Multivitamins/Minerals (Infuvite Adult -) 10 ml IV DAILY [facility] Last Admin: 05/21/19 11:30 Dose: 10 ml Pantoprazole Sodium (Protonix Iv) 40 mg IVPUSH DAILY [facility] Last Admin: 05/22/19 10:27 Dose: 40 mg Phenylephrine HCl (Rebel-Synephrine 0.5% Nasal [place] -) 1 spray NS BID [facility] Last Admin: 05/22/19 10:29 Dose: 1 spray Valacyclovir HCl (Valtrex -) 500 mg PO DAILY [facility] Last Admin: 05/22/19 10:30 Dose: Not Given - Objective Vital Signs: Vital Signs Temperature 97.3 F L 05/22/19 12:33 Pulse Rate 78 05/22/19 14:00 Respiratory Rate 26 H 05/22/19 14:00 Blood Pressure 126/93 05/22/19 14:00 O2 Sat by Pulse Oximetry (%) 99 05/22/19 09:13 Constitutional: Yes: No Distress Cardiovascular: Yes: Regular Rate and Rhythm, S1, S2 Respiratory: Yes: Diminished Gastrointestinal: Yes: Normal Bowel Sounds, Soft. No: Tenderness Edema: No Labs: CBC, BMP 05/22/19 06:00 05/22/19 06:00 INR, PTT INR 1.25 (0.83-1.09) H 05/19/19 05:45 Fibrinogen 259.0 mg/dL (238-498) 05/19/19 05:45 Assessment/Plan ACUTE RESP FAILURE S/P EXTUBATION FEVER ? TUMOR FEVER RESOLVED AML LEUKOCYTOSIS WITH BLASTS RECURRENT UTI HX ESBL AZOTEMIA VANCOMYCIN ALLERGY REPEAT CULTURES NO GROWTH CONTINUE EMPIRIC ERTAPENEM/ DAPTO (VANCOMYCIN ALLERGY) RESP SUPPORT PROGNOSIS POOR
[2019-05-22] MEDS: MULTIVIT INJ. ADULT COMBO WITH VIT K 1 COMBO 10 ML VIAL IV SCH (15:51)
[2019-05-22 16:30] LABS: ALBUMIN 2.8 g/dl (3.4-5.0); BILIRUBIN,TOTAL 0.6 mg/dL (0.2-1); BLOOD UREA NITROGEN 40.3 mg/dL (7-18); CALCIUM 9.3 mg/dL (8.5-10.1); CREATININE 0.8 mg/dL (0.55-1.3); PHOSPHOROUS 1.4 mg/dL (2.5-4.9)
[2019-05-22] MEDS ORDERED: SODIUM PHOSPHATE - 30 MM in SODIUM CHLORIDE 250 ML IVPB ONE (16:46)
--- NOTE | 2019-05-22 19:03 | PN ---
Progress Note (short form) - Note Progress Note: PAtient seen and examined extubated confused Last Vital Signs Temp Pulse Resp BP Pulse Ox 97.3 F L 80 26 H 126/93 98 05/22/19 12:33 05/22/19 15:52 05/22/19 14:00 05/22/19 14:00 05/22/19 15:52 Cor: RSR, No murmurs, No gallops Lungs: decreased at bases Abd: Soft, Normal bowel sounds, No organomegaly Ext:1+ edema Abnormal Lab Results 05/22/19 05/22/19 05/22/19 06:00 06:00 15:00 WBC 15.0 H RBC 2.91 L Hgb 8.7 L Hct 25.6 L Plt Count 34 L* D Neutrophils % 26.3 L D Neutrophils % (Manual) 9.7 L Monocytes % 55.4 H Monocytes % (Manual) 27 H D Myelocytes % (Man) 4 H D Blast Cells % (Manual) 5 H Nucleated RBC % 1 H Metamyelocytes 6 H D Potassium 2.9 L* Chloride 110 H 109 H Anion Gap 5 L 6 L BUN 43.3 H 40.3 H Random Glucose 142 H 108 H Phosphorus 1.4 L Total Protein 5.8 L 6.0 L Albumin 2.7 L 2.8 L Active Medications Generic Name Dose Route Start Last Admin Trade Name Freq PRN Reason Stop Dose Admin Albuterol Sulfate 1 amp 05/20/19 14:13 05/22/19 00:46 Ventolin 0.083% Nebulizer Soln - NEB 1 amp Q4H PRN Administration SHORT OF BREATH/WHEEZING Allopurinol 300 mg 05/12/19 10:00 05/22/19 10:30 Zyloprim - PO Not Given DAILY RYAN IV Flush 10 ml 05/14/19 23:31 05/20/19 09:21 Angelina-Cath Flush IVPUSH 10 ml PRN PRN Administration protocol, maintain patency Nicardipine HCl 25 mg/ 250 mls @ 5 mls/hr 05/17/19 20:30 05/21/19 20:40 Dextrose IVPB Not Given TITR RYAN Protocol 0.5 MG/HR Amino Acids 1,000 mls @ 84 mls/hr 05/18/19 19:00 05/22/19 15:52 Clinimix - IV 84 mls/hr Q12H RYAN Administration Sodium Phosphate 30 mm/ Sodium 260 mls @ 62.5 mls/hr 05/22/19 16:46 Chloride IVPB 05/22/19 20:55 ONCE ONE Lactobacillus Acidophilus 1 tab 05/06/19 10:00 05/22/19 10:29 Bacid - PO Not Given DAILY RYAN Lamivudine 100 mg 05/04/19 10:00 05/22/19 10:29 Epivir Oral Solution - PO Not Given DAILY [facility] Magnesium Chloride 64 mg 05/09/19 11:30 05/22/19 10:29 Slow-Mag - PO Not Given DAILY RYAN Multivitamins/Minerals 10 ml 05/19/19 10:00 05/22/19 15:51 Infuvite Adult - IV 10 ml DAILY [facility]AN Administration Pantoprazole Sodium 40 mg 05/18/19 10:00 05/22/19 10:27 Protonix Iv IVPUSH 40 mg DAILY [facility]AN Administration Phenylephrine HCl 1 spray 05/21/19 22:00 05/22/19 10:29 Rebel-Synephrine 0.5% Nasal [place] - NS 1 spray BID RYAN Administration Valacyclovir HCl 500 mg 05/12/19 10:00 05/22/19 10:30 Valtrex - PO Not Given DAILY [facility] A/P Acute hypoxic respiratory failure Off pressors extubated AML Sepsis Thrombocytopenia Anemia fevers observing off dapto/ertapenem ID following altered mental status / deliriu. dementia resume seroquel when cleared by sppech and swallow speech and swallow evaluation avoid benzodiazepenes discussed overall poor prognosis with daughter at the bed side
[2019-05-22 19:56] LABS: BASO % 0.7 % (0-2.0); EOS % 1.2 % (0-4.5); HEMATOCRIT 26.9 % (32.4-45.2); LYMPH % 16.1 % (8-40); MCH 29.7 pg (25.7-33.7); MCHC 33.4 g/dl (32.0-36.0); MEAN CELL VOLUME 88.8 fl (80-96); MEAN PLT VOLUME 9.8 fl (7.5-11.1); MONO % 49.7 % (3.8-10.2); NEUT % 32.3 % (42.8-82.8); RBC 3.03 M/mm3 (3.60-5.2); RDW 15.1 % (11.6-15.6); WHITE BLOOD COUNT 16.3 K/mm3 (4.0-10.0)
[2019-05-22 20:07] LABS: PLATELET COUNT 31 K/MM3 (134-434)
[2019-05-22 20:22] LABS: ALBUMIN 2.8 g/dl (3.4-5.0); BILIRUBIN,TOTAL 0.6 mg/dL (0.2-1); BLOOD UREA NITROGEN 37.7 mg/dL (7-18); CALCIUM 9.5 mg/dL (8.5-10.1); CREATININE 0.8 mg/dL (0.55-1.3); POTASSIUM 5.1 mmol/L (3.5-5.1); TOT PROT 5.9 g/dl (6.4-8.2)
[2019-05-22] MEDS: NICARDIPINE 25 MG in DEXTROSE 5%-WATER - 240 ML IVPB SCH (20:44)
[2019-05-22 21:21] LABS: ANISOCYTOSIS 2+; MACROCYTOSIS 0; PLATELET ESTIMATE DECREASED
[2019-05-23] MEDS: ALBUTEROL SO4 0.083% IH SOL 2.5 MG/3 ML VIAL.NEB. NEB PRN ×3 (04:10→21:14)
[2019-05-23 06:40] LABS: BASO % 0.7 % (0-2.0); EOS % 1.2 % (0-4.5); HEMATOCRIT 24.4 % (32.4-45.2); HEMOGLOBIN 8.3 GM/dL (10.7-15.3); LYMPH % 17.5 % (8-40); MCH 29.9 pg (25.7-33.7); MCHC 34.1 g/dl (32.0-36.0); MEAN CELL VOLUME 87.6 fl (80-96); MONO % 47.9 % (3.8-10.2); NEUT % 32.7 % (42.8-82.8); RBC 2.78 M/mm3 (3.60-5.2); RDW 15.2 % (11.6-15.6); WHITE BLOOD COUNT 12.5 K/mm3 (4.0-10.0)
[2019-05-23 06:44] LABS: ALBUMIN 2.7 g/dl (3.4-5.0); BILIRUBIN,TOTAL 0.5 mg/dL (0.2-1); BLOOD UREA NITROGEN 41.2 mg/dL (7-18); CALCIUM 8.9 mg/dL (8.5-10.1); CREATININE 0.7 mg/dL (0.55-1.3); MAGNESIUM 1.8 mg/dL (1.8-2.4); PHOSPHOROUS 3.5 mg/dL (2.5-4.9); POTASSIUM 3.1 mmol/L (3.5-5.1); TOT PROT 5.5 g/dl (6.4-8.2)
[2019-05-23 07:08] LABS: PLATELET COUNT 23 K/MM3 (134-434)
[2019-05-23] MEDS ORDERED: MAGNESIUM SULF 50% (8.12 MEQ/2 ML-1 GM VIAL) IVPB ONE (07:32)
[2019-05-23] MEDS ORDERED: PT OWN MED DRAWER 7, Y5N ONE (09:42)
[2019-05-23] MEDS ORDERED: INSULIN (NOVOLOG) ASPART 100 UNITS/ML 10ML VIAL ONE (09:42)
[2019-05-23] MEDS: POTASSIUM CHLORIDE 20 MEQ PREMIX IVPB 100 ML IVPB SCH ×2 (09:55→11:18)
[2019-05-23] MEDS: AMINO ACIDS 4.25%/D5W 1,000 ML IV SCH (09:55)
[2019-05-23] MEDS: MAGNESIUM CL 64 MG TABLET.SA PO SCH (09:56)
[2019-05-23] MEDS: PANTOPRAZOLE SODIUM 40 MG VIAL IVPUSH SCH (09:56)
[2019-05-23] MEDS: lamiVUDine 10 MG/1 ML BULK BOTTLE PO SCH (09:56)
[2019-05-23] MEDS: LACTOBACILLUS ACIDOPHILUS 1 TABLET PO SCH (09:56)
[2019-05-23] MEDS: valACYclovir HCL 500 MG TABLET (FP) PO SCH (09:56)
[2019-05-23] MEDS: ALLOPURINOL 300 MG TABLET (FP) PO SCH (09:57)
[2019-05-23 10:09] LABS: ANISOCYTOSIS 1+; MACROCYTOSIS 0; OVALOCYTE 1+; PLATELET ESTIMATE DECREASED
[2019-05-23] MEDS: PHENYLEPHRINE 0.5% NASAL SPRAY 15 ML BOTTLE NS SCH ×2 (10:55→21:10)
[2019-05-23] MEDS: MULTIVIT INJ. ADULT COMBO WITH VIT K 1 COMBO 10 ML VIAL IV SCH (11:17)
--- NOTE | 2019-05-23 11:23 | PN ---
Progress Note, [employer]CH[employer]ISING [employer]AD - Note Progress Note: Selected Entries 05/23/19 05/23/19 05/23/19 02:00 06:00 08:55 Lunch NPO Temperature 99.3 F 99.1 F 05/23/19 10:00 Lunch Temperature 98.4 F Laboratory Tests 05/21/19 05/22/19 05/23/19 05:30 06:00 05:30 WBC 14.2 H 15.0 H 12.5 H Pt alert, confused but more verbal and responsive. Voice stronger. Brisk swallow with puree trials. Cough response to thin liquid water trial c/w aspiration On hi-eliseo Reviewed with medical team When appropriate, will need to trial off hi-eliseo for transport to [facility] to r/o Silent aspiration and initiate PO diet with safety PO necessary meds in applesauce
[2019-05-23] MEDS ORDERED: FUROSEMIDE 40 MG/4 ML INJECTABLE VIAL IVPUSH ONE (11:43)
[2019-05-23] MEDS ORDERED: FUROSEMIDE 40 MG/4 ML INJECTABLE VIAL ONE (11:45)
--- NOTE | 2019-05-23 11:58 | PN ---
Teaching Attending Note Name of Resident: Dante Baig ATTENDING PHYSICIAN STATEMENT I saw and evaluated the patient. I reviewed the resident's note and discussed the case with the resident. I agree with the resident's findings and plan as documented. SUBJECTIVE: Patient seen and examined in the ICU. Remains exubated and remains on HFOT. Awake and alert but confused. No pressors. Intake & Output 05/20/19 05/21/19 05/22/19 05/23/19 23:59 23:59 23:59 23:59 Intake Total 1918 3307 1568 1246 Output Total 1150 1950 2900 350 Balance 768 1357 -1332 896 Weight 115 lb 9.6 oz 117 lb 120 lb 6.4 oz 111 lb 12.8 oz Last Vital Signs Temp Pulse Resp BP Pulse Ox 98.4 F 73 26 H 132/64 100 05/23/19 10:00 05/23/19 10:00 05/23/19 10:00 05/23/19 10:00 05/23/19 08:39 Active Medications Albuterol Sulfate (Ventolin 0.083% Nebulizer Soln -) 1 amp NEB Q4H PRN PRN Reason: SHORT OF BREATH/WHEEZING Last Admin: 05/23/19 04:10 Dose: 1 amp Allopurinol (Zyloprim -) 300 mg PO DAILY [facility] Last Admin: 05/23/19 09:57 Dose: Not Given IV Flush (Angelina-Cath Flush) 10 ml IVPUSH PRN PRN PRN Reason: protocol, maintain patency Last Admin: 05/20/19 09:21 Dose: 10 ml Nicardipine HCl 25 mg/ (Dextrose) 250 mls @ 5 mls/hr IVPB TITR RYAN; Protocol Last Admin: 05/22/19 20:44 Dose: Not Given Amino Acids (Clinimix -) 1,000 mls @ 83.333 mls/hr IV Q12H [facility] Lactobacillus Acidophilus (Bacid -) 1 tab PO DAILY [facility] Last Admin: 05/23/19 09:56 Dose: Not Given Lamivudine (Epivir Oral Solution -) 100 mg PO DAILY [facility] Last Admin: 05/23/19 09:56 Dose: Not Given Magnesium Chloride (Slow-Mag -) 64 mg PO DAILY [facility] Last Admin: 05/23/19 09:56 Dose: Not Given Multivitamins/Minerals (Infuvite Adult -) 10 ml IV DAILY [facility] Last Admin: 05/23/19 11:17 Dose: 10 ml Pantoprazole Sodium (Protonix Iv) 40 mg IVPUSH DAILY [facility] Last Admin: 05/23/19 09:56 Dose: 40 mg Phenylephrine HCl (Rebel-Synephrine 0.5% Nasal [place] -) 1 spray NS BID [facility] Last Admin: 05/23/19 10:55 Dose: 1 spray Valacyclovir HCl (Valtrex -) 500 mg PO DAILY [facility] Last Admin: 05/23/19 09:56 Dose: Not Given Gen: Extubated, awake and alert, confused Heart: RRR Lung: scattered rhonchi Abd: soft, nontender Ext: + edema Laboratory Results - last 24 hr 05/22/19 05/22/19 05/22/19 06:00 06:00 15:00 WBC RBC Hgb Hct MCV MCH MCHC RDW Plt Count MPV Absolute Neuts (auto) Neutrophils % Neutrophils % (Manual) 9.7 L Band Neutrophils % 4.8 Lymphocytes % Lymphocytes % (Manual) 30.1 D Monocytes % Monocytes % (Manual) 27 H D Eosinophils % Eosinophils % (Manual) 2.9 D Basophils % Basophils % (Manual) 0.0 Myelocytes % (Man) 4 H D Promyelocytes % (Man) 0 D Blast Cells % (Manual) 5 H Nucleated RBC % 1 H Metamyelocytes 6 H D Hypochromia 0 Platelet Estimate Decreased Polychromasia 1+ Poikilocytosis 1+ Anisocytosis 1+ Microcytosis 1+ Macrocytosis 0 Ovalocytes Kady Cells 1+ Sodium 143 142 Potassium 2.9 L* 5.0 Chloride 110 H 109 H Carbon Dioxide 28 27 Anion Gap 5 L 6 L BUN 43.3 H 40.3 H Creatinine 0.9 0.8 Est GFR (CKD-EPI)AfAm 73.52 84.77 Est GFR (CKD-EPI)NonAf 63.43 73.14 Random Glucose 142 H 108 H Calcium 9.1 9.3 Phosphorus 1.4 L Magnesium 1.8 Total Bilirubin 0.6 0.6 AST 24 26 ALT 16 18 Alkaline Phosphatase 89 90 Total Protein 5.8 L 6.0 L Albumin 2.7 L 2.8 L 05/22/19 05/22/19 05/23/19 17:30 17:30 05:30 WBC 16.3 H 12.5 H RBC 3.03 L 2.78 L Hgb 9.0 L 8.3 L Hct 26.9 L 24.4 L MCV 88.8 87.6 MCH 29.7 29.9 MCHC 33.4 34.1 RDW 15.1 15.2 Plt Count 31 L* 23 L* D MPV 9.8 D 9.0 Absolute Neuts (auto) 5.3 4.1 Neutrophils % 32.3 L D 32.7 L Neutrophils % (Manual) 20.0 L 29.3 L Band Neutrophils % 4.0 0.0 Lymphocytes % 16.1 17.5 Lymphocytes % (Manual) 34.0 22.8 D Monocytes % 49.7 H 47.9 H Monocytes % (Manual) 16 H 29 H D Eosinophils % 1.2 1.2 Eosinophils % (Manual) 1.0 1.1 Basophils % 0.7 0.7 Basophils % (Manual) 0.0 0.0 Myelocytes % (Man) 6 H D 2 D Promyelocytes % (Man) 3 H D 4 H D Blast Cells % (Manual) 6 H 8 H D Nucleated RBC % 0 0 Metamyelocytes 9 H D 2 D Hypochromia 0 2+ Platelet Estimate Decreased Decreased Polychromasia 0 0 Poikilocytosis 0 0 Anisocytosis 2+ 1+ Microcytosis 2+ 1+ Macrocytosis 0 0 Ovalocytes 1+ Kady Cells 0 Sodium 142 Potassium 5.1 Chloride 110 H Carbon Dioxide 28 Anion Gap 5 L BUN 37.7 H Creatinine 0.8 Est GFR (CKD-EPI)AfAm 84.77 Est GFR (CKD-EPI)NonAf 73.14 Random Glucose 95 Calcium 9.5 Phosphorus Magnesium Total Bilirubin 0.6 AST 27 ALT 17 Alkaline Phosphatase 91 Total Protein 5.9 L Albumin 2.8 L 05/23/19 05:30 WBC RBC Hgb Hct MCV MCH MCHC RDW Plt Count MPV Absolute Neuts (auto) Neutrophils % Neutrophils % (Manual) Band Neutrophils % Lymphocytes % Lymphocytes % (Manual) Monocytes % Monocytes % (Manual) Eosinophils % Eosinophils % (Manual) Basophils % Basophils % (Manual) Myelocytes % (Man) Promyelocytes % (Man) Blast Cells % (Manual) Nucleated RBC % Metamyelocytes Hypochromia Platelet Estimate Polychromasia Poikilocytosis Anisocytosis Microcytosis Macrocytosis Ovalocytes [place] Cells Sodium 142 Potassium 3.1 L Chloride 110 H Carbon Dioxide 26 Anion Gap 6 L BUN 41.2 H Creatinine 0.7 Est GFR (CKD-EPI)AfAm 99.62 Est GFR (CKD-EPI)NonAf 85.95 Random Glucose 130 H Calcium 8.9 Phosphorus 3.5 Magnesium 1.8 Total Bilirubin 0.5 AST 26 ALT 18 Alkaline Phosphatase 85 Total Protein 5.5 L Albumin 2.7 L ASSESSMENT AND PLAN: Acute Hypoxic Respiratory Failure Pneumonia likely Aspiration UTI Septic Shock Acute on Chronic Renal Failure AML Thrombocytopenia/Anemia Hypernatremia - ABX - monitor CBC - Normal transfusion threshold - free water replacement - Aspiration precautions - DVT/GI prophylaxis - Can monitor on 4W / 4S Dr Saucedo
--- NOTE | 2019-05-23 12:06 | PN ---
Physical Exam: SUBJECTIVE: Patient seen and examined No overnight events. s/p potassium and phos repletion yesterday. Alert and awake this morning. No complaints at this time OBJECTIVE: Vital Signs Period Temp Pulse Resp BP Sys/Borjas Pulse Ox Last 24 Hr 97.3 F-99.5 F 72-92 17-26 107-140/59-93 98-100 GENERAL: awake, responsive, alert and oriented x1 HEAD: NC/AT EYES: sclera anicteric, conjunctiva clear. No ptosis. ENT: Ears normal, nares patent, dried blood in mouth. ETT at 18cm at the lips NECK: Trachea midline, full range of motion, supple. LUNGS: Breath sounds equal, mildly coarse bilaterally, no wheezes, no crackles. Vent 400, 14, 5, 40% HEART: Regular rate and rhythm, S1, S2 without murmur, rub or gallop. Right upper chest with chemoport ABDOMEN: Soft, nontender, nondistended, normoactive bowel sounds, no guarding, no rebound. EXTREMITIES: 2+ pulses, warm, well-perfused, pitting edema to BUE, ptechiae to BUE NEUROLOGICAL: awake, minimally responds to commands, a&ox1, 2/5 str LUE, 3/5 str RUE, sensation SKIN: Warm, dry, ptechiae at BUE Laboratory Results - last 24 hr 05/22/19 05/22/19 05/22/19 06:00 06:00 15:00 WBC RBC Hgb Hct MCV MCH MCHC RDW Plt Count MPV Absolute Neuts (auto) Neutrophils % Neutrophils % (Manual) 9.7 L Band Neutrophils % 4.8 Lymphocytes % Lymphocytes % (Manual) 30.1 D Monocytes % Monocytes % (Manual) 27 H D Eosinophils % Eosinophils % (Manual) 2.9 D Basophils % Basophils % (Manual) 0.0 Myelocytes % (Man) 4 H D Promyelocytes % (Man) 0 D Blast Cells % (Manual) 5 H Nucleated RBC % 1 H Metamyelocytes 6 H D Hypochromia 0 Platelet Estimate Decreased Polychromasia 1+ Poikilocytosis 1+ Anisocytosis 1+ Microcytosis 1+ Macrocytosis 0 Ovalocytes Kady Cells 1+ Sodium 143 142 Potassium 2.9 L* 5.0 Chloride 110 H 109 H Carbon Dioxide 28 27 Anion Gap 5 L 6 L BUN 43.3 H 40.3 H Creatinine 0.9 0.8 Est GFR (CKD-EPI)AfAm 73.52 84.77 Est GFR (CKD-EPI)NonAf 63.43 73.14 Random Glucose 142 H 108 H Calcium 9.1 9.3 Phosphorus 1.4 L Magnesium 1.8 Total Bilirubin 0.6 0.6 AST 24 26 ALT 16 18 Alkaline Phosphatase 89 90 Total Protein 5.8 L 6.0 L Albumin 2.7 L 2.8 L 05/22/19 05/22/19 05/23/19 17:30 17:30 05:30 WBC 16.3 H 12.5 H RBC 3.03 L 2.78 L Hgb 9.0 L 8.3 L Hct 26.9 L 24.4 L MCV 88.8 87.6 MCH 29.7 29.9 MCHC 33.4 34.1 RDW 15.1 15.2 Plt Count 31 L* 23 L* D MPV 9.8 D 9.0 Absolute Neuts (auto) 5.3 4.1 Neutrophils % 32.3 L D 32.7 L Neutrophils % (Manual) 20.0 L 29.3 L Band Neutrophils % 4.0 0.0 Lymphocytes % 16.1 17.5 Lymphocytes % (Manual) 34.0 22.8 D Monocytes % 49.7 H 47.9 H Monocytes % (Manual) 16 H 29 H D Eosinophils % 1.2 1.2 Eosinophils % (Manual) 1.0 1.1 Basophils % 0.7 0.7 Basophils % (Manual) 0.0 0.0 Myelocytes % (Man) 6 H D 2 D Promyelocytes % (Man) 3 H D 4 H D Blast Cells % (Manual) 6 H 8 H D Nucleated RBC % 0 0 Metamyelocytes 9 H D 2 D Hypochromia 0 2+ Platelet Estimate Decreased Decreased Polychromasia 0 0 Poikilocytosis 0 0 Anisocytosis 2+ 1+ Microcytosis 2+ 1+ Macrocytosis 0 0 Ovalocytes 1+ Kady Cells 0 Sodium 142 Potassium 5.1 Chloride 110 H Carbon Dioxide 28 Anion Gap 5 L BUN 37.7 H Creatinine 0.8 Est GFR (CKD-EPI)AfAm 84.77 Est GFR (CKD-EPI)NonAf 73.14 Random Glucose 95 Calcium 9.5 Phosphorus Magnesium Total Bilirubin 0.6 AST 27 ALT 17 Alkaline Phosphatase 91 Total Protein 5.9 L Albumin 2.8 L 05/23/19 05:30 WBC RBC Hgb Hct MCV MCH MCHC RDW Plt Count MPV Absolute Neuts (auto) Neutrophils % Neutrophils % (Manual) Band Neutrophils % Lymphocytes % Lymphocytes % (Manual) Monocytes % Monocytes % (Manual) Eosinophils % Eosinophils % (Manual) Basophils % Basophils % (Manual) Myelocytes % (Man) Promyelocytes % (Man) Blast Cells % (Manual) Nucleated RBC % Metamyelocytes Hypochromia Platelet Estimate Polychromasia Poikilocytosis Anisocytosis Microcytosis Macrocytosis Ovalocytes [place] Cells Sodium 142 Potassium 3.1 L Chloride 110 H Carbon Dioxide 26 Anion Gap 6 L BUN 41.2 H Creatinine 0.7 Est GFR (CKD-EPI)AfAm 99.62 Est GFR (CKD-EPI)NonAf 85.95 Random Glucose 130 H Calcium 8.9 Phosphorus 3.5 Magnesium 1.8 Total Bilirubin 0.5 AST 26 ALT 18 Alkaline Phosphatase 85 Total Protein 5.5 L Albumin 2.7 L Active Medications Generic Name Dose Route Start Last Admin Trade Name Freq PRN Reason Stop Dose Admin Albuterol Sulfate 1 amp 05/20/19 14:13 05/23/19 04:10 Ventolin 0.083% Nebulizer Soln - NEB 1 amp Q4H PRN Administration SHORT OF BREATH/WHEEZING Allopurinol 300 mg 05/12/19 10:00 05/23/19 09:57 Zyloprim - PO Not Given DAILY RYAN IV Flush 10 ml 05/14/19 23:31 05/20/19 09:21 Angelina-Cath Flush IVPUSH 10 ml PRN PRN Administration protocol, maintain patency Nicardipine HCl 25 mg/ 250 mls @ 5 mls/hr 05/17/19 20:30 05/22/19 20:44 Dextrose IVPB Not Given TITR RYAN Protocol 0.5 MG/HR Amino Acids 1,000 mls @ 83.333 mls/hr 05/23/19 11:42 Clinimix - IV Q12H RYAN Lactobacillus Acidophilus 1 tab 05/06/19 10:00 05/23/19 09:56 Bacid - PO Not Given DAILY RYAN Lamivudine 100 mg 05/04/19 10:00 05/23/19 09:56 Epivir Oral Solution - PO Not Given DAILY RYAN Magnesium Chloride 64 mg 05/09/19 11:30 05/23/19 09:56 Slow-Mag - PO Not Given DAILY [facility]AN Multivitamins/Minerals 10 ml 05/19/19 10:00 05/23/19 11:17 Infuvite Adult - IV 10 ml DAILY RYAN Administration Pantoprazole Sodium 40 mg 05/18/19 10:00 05/23/19 09:56 Protonix Iv IVPUSH 40 mg DAILY [facility]YAN Administration Phenylephrine HCl 1 spray 05/21/19 22:00 05/23/19 10:55 Rebel-Synephrine 0.5% Nasal [place] - NS 1 spray BID RYAN Administration Valacyclovir HCl 500 mg 05/12/19 10:00 05/23/19 09:56 Valtrex - PO Not Given DAILY [facility]AN ASSESSMENT/PLAN: 73F w/ pmh of HTN, HLD, CHF, HFpEF, dementia, HBV, MDS, CLL --> AML presented from Rehab facility with complaint of fever; admitted to [facility] for ARF and severe anemia. Fevers thought 2/2 to infections vs AML-related. UCX grew citrobacter and E faecalis, BCX grew staph. Recurrent fevers; on daptomycin, ertapenem, lamivudine, valacyclovir. Intubated on due to lethargy with inability to protect airway; extubated 05/21 NEURO # Lethargy --likely 2/2 sepsis and hospital benzodiazapenes # Dementia > CTH: no acute process - extubated and off sedation; a&ox2, follows commands - with LUE 2/5 str compared to right side CARDIO # HFpEF --not in excerbation # HTN > EKG(05/03/19): NSR, QTc 427 - BP control:off cardene, HDS - CXR with increased pulmonary markings; will administer 40mg iv lasix RESPIR - HFNC with sats 100%; tolerating well without issues -will attempt to wean as tolerated GI - NPO - speech and swallow eval; plan for barrium swallow eval once stable of HFNC RENAL #EBER > Cr(baseline ~1): currently improved to baseline - NephroDuyen) consulted: --likely EBER 2/2 sepsis; may improve with hemodynamics --replete lytes prn --decrease clinimix to 42cc/hr ID/HEME # Sepsis 2/2 to UTI with bacteremia, high fevers # Thrombocytopenia # Anemia # AML # recurrent fevers --likely 2/2 to infection and/or AML > BCX(05/03/19): Staph Auricularis, Staphy Epidermidis, Staph Coag > UCX(05/03, 05/04): ESBL Ecoli, E Faecalis; Citrobacter > repeat BCX, UCX, UA, Sputum Cx --pending - abx regimen: Ertapenem and daptomycin - platelet; will maintain goals plt >20k - pRBC as need to keep Hgb >7 FEN - heplock - NPO - holding off on NGT until plt improved to >50k PPX - pantoprazole - SCDs as pt has low plt - PT/OT Dispo: transfer to floors - FULL CODE; ongoing GOC discussion with family given tenuous clinical status Visit type - Emergency Visit Emergency Visit: No - New Patient This patient is new to me today: No - Critical Care Critical Care patient: Yes Total Critical Care Time (in minutes): 35 Critical Care Statement: The care of this patient involved high complexity decision making to prevent further life threatening deterioration of the patient 's condition and/or to evaluate & treat vital organ system(s) failure or risk of failure. ATTENDING PHYSICIAN STATEMENT I saw and evaluated the patient. I reviewed the resident's note and discussed the case with the resident. I agree with the resident's findings and plan as documented. SUBJECTIVE: OBJECTIVE: ASSESSMENT AND PLAN:
--- NOTE | 2019-05-23 14:37 | PN ---
Progress Note, Physician Chief Complaint: awake alert NAD events noted; extubated labs noted; replete K and transfuse prn swallow eval pending - Current Medication List Current Medications: Active Medications Albuterol Sulfate (Ventolin 0.083% Nebulizer Soln -) 1 amp NEB Q4H PRN PRN Reason: SHORT OF BREATH/WHEEZING Last Admin: 05/23/19 04:10 Dose: 1 amp Allopurinol (Zyloprim -) 300 mg PO DAILY [facility] Last Admin: 05/23/19 09:57 Dose: Not Given IV Flush (Angelina-Cath Flush) 10 ml IVPUSH PRN PRN PRN Reason: protocol, maintain patency Last Admin: 05/20/19 09:21 Dose: 10 ml Nicardipine HCl 25 mg/ (Dextrose) 250 mls @ 5 mls/hr IVPB TITR RYAN; Protocol Last Admin: 05/22/19 20:44 Dose: Not Given Amino Acids (Clinimix -) 1,000 mls @ 83.333 mls/hr IV Q12H RYAN Lactobacillus Acidophilus (Bacid -) 1 tab PO DAILY [facility] Last Admin: 05/23/19 09:56 Dose: Not Given Lamivudine (Epivir Oral Solution -) 100 mg PO DAILY [facility] Last Admin: 05/23/19 09:56 Dose: Not Given Magnesium Chloride (Slow-Mag -) 64 mg PO DAILY [facility] Last Admin: 05/23/19 09:56 Dose: Not Given Multivitamins/Minerals (Infuvite Adult -) 10 ml IV DAILY [facility] Last Admin: 05/23/19 11:17 Dose: 10 ml Pantoprazole Sodium (Protonix Iv) 40 mg IVPUSH DAILY [facility] Last Admin: 05/23/19 09:56 Dose: 40 mg Phenylephrine HCl (Rebel-Synephrine 0.5% Nasal [place] -) 1 spray NS BID [facility] Last Admin: 05/23/19 10:55 Dose: 1 spray Valacyclovir HCl (Valtrex -) 500 mg PO DAILY [facility] Last Admin: 05/23/19 09:56 Dose: Not Given - Objective Vital Signs: Vital Signs Temperature 98.4 F 05/23/19 10:00 Pulse Rate 73 05/23/19 10:00 Respiratory Rate 26 H 05/23/19 10:00 Blood Pressure 132/64 05/23/19 10:00 O2 Sat by Pulse Oximetry (%) 100 05/23/19 08:39 Constitutional: Yes: No Distress, Calm Eyes: Yes: Conjunctiva Clear HENT: Yes: Atraumatic Neck: Yes: Supple Cardiovascular: Yes: Regular Rate and Rhythm Respiratory: Yes: Diminished Gastrointestinal: Yes: Soft. No: Tenderness Genitourinary: No: Hematuria Musculoskeletal: No: Joint Stiffness, Joint Swelling Extremities: No: Cold, Cool, Cyanosis Edema: No Integumentary: No: Rash, Venous Stasis Changes Neurological: Yes: Alert ...Motor Strength: WNL Psychiatric: Yes: Alert. No: Agitated, Suicidal Ideation Labs: CBC, BMP 05/23/19 05:30 05/23/19 05:30 INR, PTT INR 1.25 (0.83-1.09) H 05/19/19 05:45 Fibrinogen 259.0 mg/dL (238-498) 05/19/19 05:45 - ....Imaging Other: Report Reviewed Assessment/Plan Patient is a 73 year old lady with a significant pmh of CLL, CHF, HTN, HBV admitted with fever. h/o UTis renal stones, and cellulitis; h/o UTI ESBL, sepsis , ARF/CRF, CLL and acute leukemia severe anemia s/p PRBC sp PLT s/p UTI PNA sepsis; leukemia with blastic transformation, respiratory failure; s.p extubation; f/u CXR heme ONC f/u; Transfuse Monodonor PLT and PRBCs as needed; f/u labs; sepsis on IV ATB broad spectrum per ID, f/u cultures; CXR CRD; labs and renal f/u DVT pfx - TEDs / SCDs; not on sq heparin or AC; falls PFX d/w ICU team; swallowing eval; d.w pt and staff - prognosis guarded; t time 35 min;
[2019-05-23 17:04] VITALS: BMI 19.6
--- NOTE | 2019-05-23 17:35 | PN ---
Progress Note (short form) - Note Progress Note: Patient seen and examined Confused Knows my name, not place, year , or President Off pressors, \Extubated Last Vital Signs Temp Pulse Resp BP Pulse Ox 98.6 F 87 20 153/82 93 L 05/23/19 14:00 05/23/19 16:00 05/23/19 16:00 05/23/19 16:00 05/23/19 10:00 HEENT: FELIBERTO, EOM Intact Cor: RSR, No murmurs, No gallops Lungs:diffuse rhonchi Abd: Soft, Normal bowel sounds, No organomegaly Ext:No significant edema Skin: No rashes, Integument intact CBC, BMP 05/23/19 05:30 05/23/19 05:30 Current Medications Generic Name Dose Route Start Last Admin Trade Name Freq PRN Reason Stop Dose Admin Albuterol Sulfate 1 amp 05/20/19 14:13 05/23/19 04:10 Ventolin 0.083% Nebulizer Soln - NEB 1 amp Q4H PRN Administration SHORT OF BREATH/WHEEZING Allopurinol 300 mg 05/12/19 10:00 05/23/19 09:57 Zyloprim - PO Not Given DAILY [facility] IV Flush 10 ml 05/14/19 23:31 05/20/19 09:21 Angelina-Cath Flush IVPUSH 10 ml PRN PRN Administration protocol, maintain patency Nicardipine HCl 25 mg/ 250 mls @ 5 mls/hr 05/17/19 20:30 05/22/19 20:44 Dextrose IVPB Not Given TITR RYAN Protocol 0.5 MG/HR Amino Acids 1,000 mls @ 83.333 mls/hr 05/23/19 11:42 Clinimix - IV Q12H [facility] Fat Emulsion-Soy/MCT/[place]/Fish Oil 250 mls @ 20.833 mls/hr 05/23/19 22:00 Smoflipid 20% Iv Fat Emulsion IV DAILY@2200 [facility] Lactobacillus Acidophilus 1 tab 05/06/19 10:00 05/23/19 09:56 Bacid - PO Not Given DAILY [facility] Lamivudine 100 mg 05/04/19 10:00 05/23/19 09:56 Epivir Oral Solution - PO Not Given DAILY [facility] Magnesium Chloride 64 mg 05/09/19 11:30 05/23/19 09:56 Slow-Mag - PO Not Given DAILY [facility] Multivitamins/Minerals 10 ml 05/19/19 10:00 05/23/19 11:17 Infuvite Adult - IV 10 ml DAILY [facility] Administration Pantoprazole Sodium 40 mg 05/18/19 10:00 05/23/19 09:56 Protonix Iv IVPUSH 40 mg DAILY [facility] Administration Phenylephrine HCl 1 spray 05/21/19 22:00 05/23/19 10:55 Rebel-Synephrine 0.5% Nasal [place] - NS 1 spray BID [facility] Administration Valacyclovir HCl 500 mg 05/12/19 10:00 05/23/19 09:56 Valtrex - PO Not Given DAILY [facility] Impression: Acute Hypoxic respiratory failure S/P ventilator support S/P pressors Confusion AML Hx of CLL Sepsis Need to rediscuss ?? of hypomethylating agents for AML in future with daughter. Monitoring CBC Transfuse platelets prn <15K or bleeding diathesis Transfuse RBC prn Hb < 8.0 g.
[2019-05-23] MEDS: NICARDIPINE 25 MG in DEXTROSE 5%-WATER - 240 ML IVPB SCH (21:09)
[2019-05-23] MEDS: FAT EMUL/SOY/MCT/OLIV/FISH OIL 250 ML IV SCH (21:10)
[2019-05-23] MEDS ORDERED: SMOFLIPID - FAT EMUL/SOY/MCT/OLIV/FISH OIL 250 ML EMULSION IV SCH (22:00)
[2019-05-24] MEDS: AMINO ACIDS 4.25%/D5W 1,000 ML IV SCH ×4 (02:38→22:58)
[2019-05-24 05:51] LABS: BASO % 0.8 % (0-2.0); EOS % 0.9 % (0-4.5); HEMATOCRIT 25.9 % (32.4-45.2); HEMOGLOBIN 8.9 GM/dL (10.7-15.3); LYMPH % 17.8 % (8-40); MCH 30.1 pg (25.7-33.7); MCHC 34.6 g/dl (32.0-36.0); MEAN CELL VOLUME 87.1 fl (80-96); MEAN PLT VOLUME 8.1 fl (7.5-11.1); MONO % 42.8 % (3.8-10.2); NEUT % 37.7 % (42.8-82.8); RBC 2.97 M/mm3 (3.60-5.2); RDW 15.1 % (11.6-15.6); WHITE BLOOD COUNT 15.6 K/mm3 (4.0-10.0)
[2019-05-24 06:35] LABS: BILIRUBIN,TOTAL 0.5 mg/dL (0.2-1); BLOOD UREA NITROGEN 36.2 mg/dL (7-18); CALCIUM 9.1 mg/dL (8.5-10.1); CREATININE 0.8 mg/dL (0.55-1.3); MAGNESIUM 2.4 mg/dL (1.8-2.4); PHOSPHOROUS 1.6 mg/dL (2.5-4.9)
[2019-05-24 06:52] LABS: POTASSIUM 2.9 mmol/L (3.5-5.1)
--- NOTE | 2019-05-24 07:07 | PN ---
Progress Note, Physician Chief Complaint: alert awake NAD asked to eat; per speech tx pt is aspirating; to try purree diet and head elevation if not able to eat to d/w daughter about PEG HTN on IV meds off [facility] vent - Current Medication List Current Medications: Active Medications Albuterol Sulfate (Ventolin 0.083% Nebulizer Soln -) 1 amp NEB Q4H PRN PRN Reason: SHORT OF BREATH/WHEEZING Last Admin: 05/23/19 21:14 Dose: 1 amp Allopurinol (Zyloprim -) 300 mg PO DAILY [facility] Last Admin: 05/23/19 09:57 Dose: Not Given IV Flush (Angelina-Cath Flush) 10 ml IVPUSH PRN PRN PRN Reason: protocol, maintain patency Last Admin: 05/20/19 09:21 Dose: 10 ml Nicardipine HCl 25 mg/ (Dextrose) 250 mls @ 5 mls/hr IVPB TITR [facility]; Protocol Last Admin: 05/23/19 21:09 Dose: Not Given Amino Acids (Clinimix -) 1,000 mls @ 83.333 mls/hr IV Q12H [facility] Last Admin: 05/24/19 02:38 Dose: 83.333 mls/hr Fat Emulsion-Soy/MCT/[place]/Fish Oil (Smoflipid 20% Iv Fat Emulsion) 250 mls @ 20.833 mls/hr IV DAILY@2200 [facility] Last Admin: 05/23/19 21:10 Dose: 20.833 mls/hr Lactobacillus Acidophilus (Bacid -) 1 tab PO DAILY [facility] Last Admin: 05/23/19 09:56 Dose: Not Given Lamivudine (Epivir Oral Solution -) 100 mg PO DAILY [facility] Last Admin: 05/23/19 09:56 Dose: Not Given Magnesium Chloride (Slow-Mag -) 64 mg PO DAILY [facility] Last Admin: 05/23/19 09:56 Dose: Not Given Multivitamins/Minerals (Infuvite Adult -) 10 ml IV DAILY [facility] Last Admin: 05/23/19 11:17 Dose: 10 ml Pantoprazole Sodium (Protonix Iv) 40 mg IVPUSH DAILY [facility] Last Admin: 05/23/19 09:56 Dose: 40 mg Phenylephrine HCl (Rebel-Synephrine 0.5% Nasal [place] -) 1 spray NS BID [facility] Last Admin: 05/23/19 21:10 Dose: 1 spray Valacyclovir HCl (Valtrex -) 500 mg PO DAILY [facility] Last Admin: 05/23/19 09:56 Dose: Not Given - Objective Vital Signs: Vital Signs Temperature 99.1 F 05/24/19 06:00 Pulse Rate 84 05/24/19 06:00 Respiratory Rate 29 H 05/24/19 06:00 Blood Pressure 165/90 05/24/19 06:00 O2 Sat by Pulse Oximetry (%) 94 L 05/23/19 22:00 Constitutional: Yes: No Distress, Calm Eyes: Yes: Conjunctiva Clear HENT: Yes: Atraumatic Neck: Yes: Supple Cardiovascular: Yes: Regular Rate and Rhythm Respiratory: Yes: Diminished Gastrointestinal: Yes: Soft. No: Tenderness Genitourinary: No: Hematuria Musculoskeletal: No: Joint Stiffness, Joint Swelling Extremities: No: Cold, Cool, Cyanosis Edema: No Integumentary: Yes: Bruising. No: Rash, Venous Stasis Changes Neurological: Yes: Alert Psychiatric: Yes: Alert Labs: CBC, BMP 05/24/19 05:30 05/24/19 05:30 INR, PTT INR 1.25 (0.83-1.09) H 05/19/19 05:45 Fibrinogen 259.0 mg/dL (238-498) 05/19/19 05:45 - ....Imaging Other: Report Reviewed Assessment/Plan Patient is a 73 year old lady with a significant pmh of CLL, CHF, HTN, HBV admitted with fever. h/o UTis renal stones, and cellulitis; h/o UTI ESBL, sepsis , ARF/CRF, CLL and acute leukemia severe anemia s/p PRBC sp PLT s/p UTI PNA sepsis; leukemia with blastic transformation, respiratory failure; s.p extubation; f/u CXR heme ONC f/u; Transfuse Monodonor PLT and PRBCs as needed; f/u labs; sepsis on IV ATB broad spectrum per ID, f/u cultures; CXR CRD; labs and renal f/u DVT pfx - TEDs / SCDs; not on sq heparin or AC; falls PFX d/w ICU team; swallowing f/u d.w pt and staff - prognosis guarded; t time 35 min;
[2019-05-24] MEDS ORDERED: POTASSIUM PHOSPHATE 20 MM in SODIUM CHLORIDE 250 ML IVPB ONE (09:30)
[2019-05-24] MEDS: LACTOBACILLUS ACIDOPHILUS 1 TABLET PO SCH (09:36)
[2019-05-24] MEDS: lamiVUDine 10 MG/1 ML BULK BOTTLE PO SCH (09:36)
[2019-05-24] MEDS: PANTOPRAZOLE SODIUM 40 MG VIAL IVPUSH SCH (09:39)
[2019-05-24] MEDS: MAGNESIUM CL 64 MG TABLET.SA PO SCH (09:40)
[2019-05-24] MEDS: ALLOPURINOL 300 MG TABLET (FP) PO SCH (09:40)
[2019-05-24] MEDS: valACYclovir HCL 500 MG TABLET (FP) PO SCH (09:40)
[2019-05-24] MEDS ORDERED: QUEtiapine FUMARATE 25 MG TABLET PO SCH (10:00)
[2019-05-24] MEDS ORDERED: PT OWN MED DRAWER 7, Y5N ONE (10:21)
[2019-05-24] MEDS: PHENYLEPHRINE 0.5% NASAL SPRAY 15 ML BOTTLE NS SCH ×2 (10:39→22:56)
[2019-05-24] MEDS: MULTIVIT INJ. ADULT COMBO WITH VIT K 1 COMBO 10 ML VIAL IV SCH (11:35)
--- NOTE | 2019-05-24 12:40 | PN ---
Teaching Attending Note Name of Resident: Saima Manley ATTENDING PHYSICIAN STATEMENT I saw and evaluated the patient. I reviewed the resident's note and discussed the case with the resident. I agree with the resident's findings and plan as documented. SUBJECTIVE: Pt seen and examined in the ICU. More alert, awake but confused. Saturating well on nasal cannula. No fevers recorded. OBJECTIVE: Vital Signs Period Temp Pulse Resp BP Sys/Borjas Pulse Ox Last 24 Hr 98.0 F-99.1 F 80-89 20-30 124-167/62-90 92-94 Intake & Output 05/21/19 05/22/19 05/23/19 05/24/19 23:59 23:59 23:59 23:59 Intake Total 3307 1568 1882 1210 Output Total 1950 2900 2950 400 Balance 1357 -1332 -1068 810 Weight 53.07 kg 54.613 kg 50.712 kg 50.485 kg Gen: awake, confused Heart: RRR Lung: decreased breath sounds at the bases Abd: soft, nontender Ext: no edema CBC, BMP 05/24/19 05:30 05/24/19 05:30 Active Medications Albuterol Sulfate (Ventolin 0.083% Nebulizer Soln -) 1 amp NEB Q4H PRN PRN Reason: SHORT OF BREATH/WHEEZING Last Admin: 05/23/19 21:14 Dose: 1 amp Allopurinol (Zyloprim -) 300 mg PO DAILY [facility] Last Admin: 05/24/19 09:40 Dose: Not Given IV Flush (Angelina-Cath Flush) 10 ml IVPUSH PRN PRN PRN Reason: protocol, maintain patency Last Admin: 05/20/19 09:21 Dose: 10 ml Nicardipine HCl 25 mg/ (Dextrose) 250 mls @ 5 mls/hr IVPB TITR [facility]; Protocol Last Admin: 05/23/19 21:09 Dose: Not Given Amino Acids (Clinimix -) 1,000 mls @ 83.333 mls/hr IV Q12H [facility] Last Admin: 05/24/19 02:38 Dose: 83.333 mls/hr Fat Emulsion-Soy/MCT/[place]/Fish Oil (Smoflipid 20% Iv Fat Emulsion) 250 mls @ 20.833 mls/hr IV DAILY@2200 [facility] Last Admin: 05/23/19 21:10 Dose: 20.833 mls/hr Potassium Phosphate 20 mm/ (Sodium Chloride) 256.6667 mls @ 62.5 mls/hr IVPB ONCE ONE Stop: 05/24/19 13:36 Last Admin: 05/24/19 09:39 Dose: 62.5 mls/hr Lactobacillus Acidophilus (Bacid -) 1 tab PO DAILY [facility] Last Admin: 05/23/19 09:56 Dose: Not Given Lamivudine (Epivir Oral Solution -) 100 mg PO DAILY [facility] Last Admin: 05/23/19 09:56 Dose: Not Given Magnesium Chloride (Slow-Mag -) 64 mg PO DAILY [facility] Last Admin: 05/24/19 09:40 Dose: Not Given Multivitamins/Minerals (Infuvite Adult -) 10 ml IV DAILY [facility] Last Admin: 05/23/19 11:17 Dose: 10 ml Pantoprazole Sodium (Protonix Iv) 40 mg IVPUSH DAILY [facility] Last Admin: 05/24/19 09:39 Dose: 40 mg Phenylephrine HCl (Rebel-Synephrine 0.5% Nasal [place] -) 1 spray NS BID [facility] Last Admin: 05/23/19 21:10 Dose: 1 spray Valacyclovir HCl (Valtrex -) 500 mg PO DAILY [facility] Last Admin: 05/24/19 09:40 Dose: Not Given ASSESSMENT AND PLAN: s/p Acute Hypoxic Respiratory Failure Pneumonia likely Aspiration UTI Septic Shock resolving Acute on Chronic Renal Failure AML Thrombocytopenia/Anemia - completed antibiotics - monitor CBC - transfuse as needed - replete lytes - aspiration precautions - will need PEG placement - DVT prophylaxis - can monitor on floor
[2019-05-24 12:45] LABS: ANISOCYTOSIS 1+; MACROCYTOSIS 0; PLATELET ESTIMATE DECREASED
--- NOTE | 2019-05-24 12:55 | PN ---
Physical Exam: SUBJECTIVE: Patient seen and examined. No acute events overnight. OBJECTIVE: Vital Signs Period Temp Pulse Resp BP Sys/Borjas Pulse Ox Last 24 Hr 98.0 F-99.1 F 80-89 20-30 124-167/62-90 92-94 GENERAL: The patient is awake, alert, and oriented x1, in no acute distress. HEAD: Normal with no signs of trauma. EYES: PERRL, extraocular movements intact, sclera anicteric, conjunctiva clear. No ptosis. ENT: Ears normal, nares patent, oropharynx clear without exudates, moist mucous membranes. NECK: Trachea midline, full range of motion, supple. LUNGS: Breath sounds equal, clear to auscultation bilaterally, no wheezes, no crackles, no accessory muscle use. HEART: Regular rate and rhythm, S1, S2 without murmur, rub or gallop. ABDOMEN: Soft, nontender, nondistended, normoactive bowel sounds, no guarding, no rebound, no hepatosplenomegaly, no masses. EXTREMITIES: 2+ pulses, warm, well-perfused, no edema. NEUROLOGICAL: Cranial nerves II through XII grossly intact. Motor 2/5 LUE, 3/5 str RUE, sensation intact Laboratory Results - last 24 hr CBC, BMP 05/24/19 05:30 05/24/19 05:30 Active Medications Albuterol Sulfate (Ventolin 0.083% Nebulizer Soln -) 1 amp NEB Q4H PRN PRN Reason: SHORT OF BREATH/WHEEZING Last Admin: 05/23/19 21:14 Dose: 1 amp Allopurinol (Zyloprim -) 300 mg PO DAILY [facility] Last Admin: 05/24/19 09:40 Dose: Not Given IV Flush (Angelina-Cath Flush) 10 ml IVPUSH PRN PRN PRN Reason: protocol, maintain patency Last Admin: 05/20/19 09:21 Dose: 10 ml Nicardipine HCl 25 mg/ (Dextrose) 250 mls @ 5 mls/hr IVPB TITR [facility]; Protocol Last Admin: 05/23/19 21:09 Dose: Not Given Amino Acids (Clinimix -) 1,000 mls @ 83.333 mls/hr IV Q12H [facility] Last Admin: 05/24/19 02:38 Dose: 83.333 mls/hr Fat Emulsion-Soy/MCT/[place]/Fish Oil (Smoflipid 20% Iv Fat Emulsion) 250 mls @ 20.833 mls/hr IV DAILY@2200 [facility] Last Admin: 05/23/19 21:10 Dose: 20.833 mls/hr Potassium Phosphate 20 mm/ (Sodium Chloride) 256.6667 mls @ 62.5 mls/hr IVPB ONCE ONE Stop: 05/24/19 13:36 Last Admin: 05/24/19 09:39 Dose: 62.5 mls/hr Lactobacillus Acidophilus (Bacid -) 1 tab PO DAILY [facility] Last Admin: 05/23/19 09:56 Dose: Not Given Lamivudine (Epivir Oral Solution -) 100 mg PO DAILY [facility] Last Admin: 05/23/19 09:56 Dose: Not Given Magnesium Chloride (Slow-Mag -) 64 mg PO DAILY [facility] Last Admin: 05/24/19 09:40 Dose: Not Given Multivitamins/Minerals (Infuvite Adult -) 10 ml IV DAILY [facility] Last Admin: 05/23/19 11:17 Dose: 10 ml Pantoprazole Sodium (Protonix Iv) 40 mg IVPUSH DAILY [facility] Last Admin: 05/24/19 09:39 Dose: 40 mg Phenylephrine HCl (Rebel-Synephrine 0.5% Nasal [place] -) 1 spray NS BID [facility] Last Admin: 05/23/19 21:10 Dose: 1 spray Valacyclovir HCl (Valtrex -) 500 mg PO DAILY [facility] Last Admin: 05/24/19 09:40 Dose: Not Given ASSESSMENT/PLAN: Patient is a 73 year old female w/PMH of HTN, HLD, CHF, HFpEF, dementia, HBV, MDS, CLL --> AML presented from Rehab facility with complaint of fever; admitted to [facility] for ARF and severe anemia. Fevers thought 2/2 to infections vs AML-related. UCX grew citrobacter and E faecalis, BCX grew staph. Recurrent fevers; on daptomycin, ertapenem, lamivudine, valacyclovir. Intubated on due to lethargy with inability to protect airway; extubated 05/21 Neuro -Lethargy --likely 2/2 sepsis and hospital benzodiazapenes -Dementia -CT Head: no acute process -Extubated and off sedation; a&ox2, follows commands -LUE 2/5 strength compared to right side Cardiovascular -HFpEF --not in excerbation -HTN -EKG(05/03/19): NSR, QTc 427 -BP control:off cardene, hemodynamically stable -CXR with increased pulmonary markings; received 40 lasix yesterday Pulmonary -HFNC with sats 100%; tolerating well without issues -will attempt to wean as tolerated GI -Pt at aspiration risk with thin and thick liquids -Per Prema Halina: will try Magic Cup TID, may improve pt's swallowing -Hold off PEG discussion for now RENAL -EBER -Cr (baseline ~1): currently improved to baseline -Nephro (Narciso) consulted: -likely EBER 2/2 sepsis; may improve with hemodynamics -replete lytes prn -decrease clinimix to 42cc/hr ID/HEME -Sepsis 2/2 to UTI with bacteremia, high fevers -Thrombocytopenia -Anemia -AML -recurrent fevers --likely 2/2 to infection and/or AML -Blood cx (05/03/19): Staph Auricularis, Staphy Epidermidis, Staph Coag -Urine cx (05/03, 05/04): ESBL Ecoli, E Faecalis; Citrobacter -Abx regimen: Ertapenem and daptomycin -Platelet; will maintain goals plt >20k -pRBC as need to keep Hgb >7 FEN -Heplock -NPO -Holding off on NGT until plt improved to >50k PPX -Pantoprazole -SCDs as pt has low plt -PT/OT Dispo: transfer to floors - FULL CODE; ongoing GOC discussion with family given tenuous clinical status Visit type - Emergency Visit Emergency Visit: No - New Patient This patient is new to me today: No - Critical Care Critical Care patient: Yes Total Critical Care Time (in minutes): 45 Critical Care Statement: The care of this patient involved high complexity decision making to prevent further life threatening deterioration of the patient 's condition and/or to evaluate & treat vital organ system(s) failure or risk of failure. ATTENDING PHYSICIAN STATEMENT I saw and evaluated the patient. I reviewed the resident's note and discussed the case with the resident. I agree with the resident's findings and plan as documented. SUBJECTIVE: OBJECTIVE: ASSESSMENT AND PLAN:
--- NOTE | 2019-05-24 13:06 | PN ---
Progress Note, MANAGER QUANTITATIVE - Note Progress Note: Selected Entries 05/23/19 05/23/19 05/23/19 02:00 06:00 10:00 Supper Temperature 99.3 F 99.1 F 98.4 F 05/23/19 05/23/19 05/24/19 14:00 18:00 02:00 Supper Temperature 98.6 F 99.1 F 98.0 F 05/24/19 05/24/19 05/24/19 06:00 09:10 10:00 Supper NPO Temperature 99.1 F 99 F 05/24/19 14:00 Supper Temperature 98.8 F Laboratory Tests 05/22/19 05/23/19 05/24/19 06:00 05:30 05:30 WBC 15.0 H 12.5 H 15.6 H Pt continues to be NPO. IV hydration/ clinimix Reviewed MBS results with medical team. Suggest trial of pureed consistency but NO liquids, as pt silently aspirated on thick and thin liquid during MBS. REC: Trial of Magic cup HOB fully elevated to 90 degrees, chin flexed with pillow supporting head 1/3 tsp at a time, remind pt to swallow and give her time to swallow 3-4 times, noted during mbs. Monitor tolerance I am hopeful that with safe PO trials, using compensatory swallowing strategies , swallowing coordination will improve. If it does not, PEG may be indicated. Consider Palliative care consult.
[2019-05-24 13:36] LABS: PLATELET COUNT 18 K/MM3 (134-434)
[2019-05-24 16:04] LABS: BLOOD UREA NITROGEN 34.3 mg/dL (7-18); CREATININE 0.7 mg/dL (0.55-1.3); POTASSIUM 3.4 mmol/L (3.5-5.1)
[2019-05-24] MEDS ORDERED: PORTA CATH FLUSH 10 ML IVPUSH PRN (20:47)
[2019-05-24] MEDS ORDERED: ALBUTEROL SO4 0.083% IH SOL 2.5 MG/3 ML VIAL.NEB. NEB PRN (20:47)
[2019-05-24] MEDS ORDERED: NICARDIPINE 25 MG in DEXTROSE 5%-WATER - 240 ML IVPB SCH (20:47)
[2019-05-24] MEDS: FAT EMUL/SOY/MCT/OLIV/FISH OIL 250 ML IV SCH (22:57)
[2019-05-25] MEDS ORDERED: PT OWN MED DRAWER 7, Y5N ONE ×4 (06:23→21:18)
[2019-05-25 06:54] LABS: HEMATOCRIT 26.3 % (32.4-45.2); HEMOGLOBIN 9.1 GM/dL (10.7-15.3); MCH 29.9 pg (25.7-33.7); MCHC 34.6 g/dl (32.0-36.0); MEAN CELL VOLUME 86.7 fl (80-96); MEAN PLT VOLUME 9.1 fl (7.5-11.1); PLATELET COUNT 51 K/MM3 (134-434); RBC 3.04 M/mm3 (3.60-5.2); RDW 14.7 % (11.6-15.6); WHITE BLOOD COUNT 24.9 K/mm3 (4.0-10.0)
[2019-05-25 08:02] LABS: ALBUMIN 3.2 g/dl (3.4-5.0); BILIRUBIN,TOTAL 0.7 mg/dL (0.2-1); BLOOD UREA NITROGEN 30.2 mg/dL (7-18); CREATININE 0.7 mg/dL (0.55-1.3); MAGNESIUM 2.1 mg/dL (1.8-2.4); PHOSPHOROUS 2.3 mg/dL (2.5-4.9); POTASSIUM 3.3 mmol/L (3.5-5.1); TOT PROT 6.5 g/dl (6.4-8.2)
--- NOTE | 2019-05-25 09:03 | PN ---
Progress Note, Physician Chief Complaint: in bed nad extubated; swallow eval r/o silent aspiration - Current Medication List Current Medications: Active Medications Albuterol Sulfate (Ventolin 0.083% Nebulizer Soln -) 1 amp NEB Q4H PRN PRN Reason: SHORT OF BREATH/WHEEZING Allopurinol (Zyloprim -) 300 mg PO DAILY [facility] IV Flush (Angelina-Cath Flush) 10 ml IVPUSH PRN PRN PRN Reason: protocol, maintain patency Fat Emulsion-Soy/MCT/[place]/Fish Oil (Smoflipid 20% Iv Fat Emulsion) 250 mls @ 20.833 mls/hr IV DAILY@2200 [facility] Last Admin: 05/24/19 22:57 Dose: 20.833 mls/hr Amino Acids (Clinimix -) 1,000 mls @ 83.333 mls/hr IV Q12H [facility] Last Admin: 05/24/19 22:58 Dose: 83.333 mls/hr Nicardipine HCl 25 mg/ (Dextrose) 250 mls @ 5 mls/hr IVPB TITR [facility]; Protocol Last Admin: 05/24/19 22:56 Dose: Not Given Lactobacillus Acidophilus (Bacid -) 1 tab PO DAILY [facility] Lamivudine (Epivir Oral Solution -) 100 mg PO DAILY [facility] Magnesium Chloride (Slow-Mag -) 64 mg PO DAILY [facility] Multivitamins/Minerals (Infuvite Adult -) 10 ml IV DAILY [facility] Pantoprazole Sodium (Protonix Iv) 40 mg IVPUSH DAILY [facility] Phenylephrine HCl (Rebel-Synephrine 0.5% Nasal [place] -) 1 spray NS BID [facility] Last Admin: 05/24/19 22:56 Dose: 1 spray Potassium Chloride (Potassium Chloride Oral Liquid) 20 meq PO DAILY [facility] Valacyclovir HCl (Valtrex -) 500 mg PO DAILY [facility] - Objective Vital Signs: Vital Signs Temperature 98.0 F 05/25/19 05:03 Pulse Rate 79 05/25/19 05:03 Respiratory Rate 16 05/25/19 05:03 Blood Pressure 150/69 05/25/19 05:03 O2 Sat by Pulse Oximetry (%) 91 L 05/24/19 21:00 Constitutional: Yes: No Distress Eyes: Yes: Conjunctiva Clear HENT: Yes: Atraumatic Neck: Yes: Supple Cardiovascular: Yes: Regular Rate and Rhythm Respiratory: Yes: Diminished Gastrointestinal: Yes: Soft. No: Tenderness Musculoskeletal: No: Joint Stiffness, Joint Swelling Extremities: No: Cold, Cool Edema: No Integumentary: Yes: Bruising. No: Rash Neurological: Yes: Alert ...Motor Strength: WNL Psychiatric: Yes: Alert. No: Agitated Labs: CBC, BMP 05/25/19 05:55 05/25/19 05:55 INR, PTT INR 1.25 (0.83-1.09) H 05/19/19 05:45 Fibrinogen 259.0 mg/dL (238-498) 05/19/19 05:45 - ....Imaging Other: Report Reviewed Assessment/Plan Patient is a 73 year old lady with a significant pmh of CLL, CHF, HTN, HBV admitted with fever. h/o UTis renal stones, and cellulitis; h/o UTI ESBL, sepsis , ARF/CRF, CLL and acute leukemia severe anemia s/p PRBC sp PLT s/p UTI PNA sepsis; leukemia with blastic transformation, respiratory failure; r /o aspiration, HOB, speech and swallow eval heme ONC f/u; Transfuse Monodonor PLT and PRBCs as needed; f/u labs; sepsis on IV ATB broad spectrum per ID, f/u cultures; CXR CRD; labs and renal f/u DVT pfx - TEDs / SCDs; not on sq heparin or AC; falls PFX d/w ICU team; swallowing f/u d.w pt and staff - prognosis guarded; called daughter
[2019-05-25] MEDS: MAGNESIUM CL 64 MG TABLET.SA PO SCH (09:45)
[2019-05-25] MEDS: ALLOPURINOL 300 MG TABLET (FP) PO SCH (09:49)
[2019-05-25] MEDS: valACYclovir HCL 500 MG TABLET (FP) PO SCH (09:49)
[2019-05-25] MEDS: LACTOBACILLUS ACIDOPHILUS 1 TABLET PO SCH (09:49)
[2019-05-25] MEDS: PHENYLEPHRINE 0.5% NASAL SPRAY 15 ML BOTTLE NS SCH ×2 (09:49→21:36)
[2019-05-25] MEDS: PANTOPRAZOLE SODIUM 40 MG VIAL IVPUSH SCH (09:49)
[2019-05-25] MEDS: lamiVUDine 10 MG/1 ML BULK BOTTLE PO SCH (09:50)
[2019-05-25] MEDS: POTASSIUM CHLORIDE ORAL LIQUID 20 MEQ/15 ML PO SCH (09:50)
[2019-05-25] MEDS: MULTIVIT INJ. ADULT COMBO WITH VIT K 1 COMBO 10 ML VIAL IV SCH (10:40)
[2019-05-25] MEDS: AMINO ACIDS 4.25%/D5W 1,000 ML IV SCH (11:17)
--- NOTE | 2019-05-25 12:25 | PN ---
Progress Note, OVERWEAVER - Note Progress Note: Pt transferred to telemetry. Trial of Magic cup ordered yesterday, when in ICU. Not documented if pt received , tolerated it. ICU contacted, however, new nursing staff today. Laboratory Tests 05/23/19 05/24/19 05/25/19 05:30 05:30 05:55 WBC 12.5 H 15.6 H 24.9 H Selected Entries 05/24/19 05/24/19 05/24/19 00:00 02:00 04:00 Breakfast Temperature 98.0 F Blood Pressure 134/73 167/70 148/90 05/24/19 05/24/19 05/24/19 06:00 08:00 10:00 Breakfast Temperature 99.1 F 99 F Blood Pressure 165/90 162/81 161/62 05/24/19 05/24/19 05/24/19 12:00 14:00 16:00 Breakfast Temperature 98.8 F Blood Pressure 165/88 152/96 157/88 05/24/19 05/24/19 05/25/19 18:00 22:00 02:00 Breakfast Temperature 99 F 98.6 F 98.1 F Blood Pressure 178/87 H 160/94 149/73 05/25/19 05/25/19 05/25/19 05:03 09:51 10:00 Breakfast NPO Temperature 98.0 F 98.2 F Blood Pressure 150/69 146/67 Pt has cough. Given 2 applesauce today, fed slowly, overtly tolerated it. Reassessed swallowing with Magic cup. Intermittent cough with and without PO. Swallow slightly delayed, several generated per 1/3 tsp. Fed with HOB to 90, pillow support behind head to encourage head flexion. Continue Magic cup trials and monitor tolerance. Consider Palliative care consult
--- NOTE | 2019-05-25 13:30 | PN ---
Progress Note (short form) - Note Progress Note: Renal follow up for EBER Seen and examined at the bedside awake and alert offers no acute complaints denies any sob, cp, fever, chills, N/V/D making urine on IV clinimix Vital Signs Temperature 98.2 F 05/25/19 10:00 Pulse Rate 82 05/25/19 10:00 Respiratory Rate 16 05/25/19 10:00 Blood Pressure 146/67 05/25/19 10:00 O2 Sat by Pulse Oximetry (%) 91 L 05/24/19 21:00 Intake & Output 05/22/19 05/23/19 05/24/19 05/25/19 23:59 23:59 23:59 23:59 Intake Total 1568 1882 3155.5 728.1 Output Total 2900 2950 2250 800 Balance -1332 -1068 905.5 -71.9 Weight 54.613 kg 50.712 kg 50.485 kg NAD RRR, no M/R Dec BS at lung bases soft NT/ND no LE edema CBC, BMP 05/25/19 05:55 05/25/19 05:55 Current Medications Albuterol Sulfate (Ventolin 0.083% Nebulizer Soln -) 1 amp NEB Q4H PRN PRN Reason: SHORT OF BREATH/WHEEZING Allopurinol (Zyloprim -) 300 mg PO DAILY [facility] Last Admin: 05/25/19 09:49 Dose: 300 mg IV Flush (Angelina-Cath Flush) 10 ml IVPUSH PRN PRN PRN Reason: protocol, maintain patency Amino Acids (Clinimix -) 1,000 mls @ 83.333 mls/hr IV Q12H [facility] Last Admin: 05/25/19 11:17 Dose: 83.333 mls/hr Nicardipine HCl 25 mg/ (Dextrose) 250 mls @ 5 mls/hr IVPB TITR [facility]; Protocol Last Admin: 05/24/19 22:56 Dose: Not Given Fat Emulsion-[place] Oil/Soybean Oil (Clinolipid 20% Iv Fat Emulsion) 250 mls @ 20.833 mls/hr IV DAILY@2200 [facility] Lactobacillus Acidophilus (Bacid -) 1 tab PO DAILY [facility] Last Admin: 05/25/19 09:49 Dose: 1 tab Lamivudine (Epivir Oral Solution -) 100 mg PO DAILY [facility] Last Admin: 05/25/19 09:50 Dose: 100 mg Magnesium Chloride (Slow-Mag -) 64 mg PO DAILY [facility] Last Admin: 05/25/19 09:45 Dose: Not Given Multivitamins/Minerals (Infuvite Adult -) 10 ml IV DAILY [facility] Pantoprazole Sodium (Protonix Iv) 40 mg IVPUSH DAILY [facility] Last Admin: 05/25/19 09:49 Dose: 40 mg Phenylephrine HCl (Rebel-Synephrine 0.5% Nasal [place] -) 1 spray NS BID [facility] Last Admin: 05/25/19 09:49 Dose: 1 spray Potassium Chloride (Potassium Chloride Oral Liquid) 20 meq PO DAILY [facility] Last Admin: 05/25/19 09:50 Dose: 20 meq Valacyclovir HCl (Valtrex -) 500 mg PO DAILY [facility] Last Admin: 05/25/19 09:49 Dose: 500 mg 73 year old woman with past medical history of CKD (baseline Cr ~1.7), CLL, CHF , HTN, HBV, unilateral hydronephrosis who presented to the ED with fevers and noted to have Cr of 3. 1. EBER on CKD secondary to volume depletoin vs. ATN vs AIN 2. CKD stage 3 3. Chronic hydronephrosis 4. Fevers 5. Acute on chronic anemia 6. Hyponatremia 7. Hypokalemia Renal function stable. No overt electrolyte or acid/base disturbance noted. continue IV clinimix as needed started on KCL supplementation by mouth Heme follow up will follow up as needed. please call if there are any questions or concerns. Thank you Tr Duran DO
--- NOTE | 2019-05-25 14:29 | PN ---
Progress Note (short form) - Note Progress Note: PULMONARY Somnolent but arousable. Denies shortness of breath. Vital Signs Period Temp Pulse Resp BP Sys/Borjas Pulse Ox Last 24 Hr 97.8 F-99 F 78-89 16-32 146-178/67-94 91-93 Gen: NAD at rest Heart: RRR Lung: scattered rhonchi Abd: soft, nontender Ext: + edema CBC, BMP 05/25/19 05:55 05/25/19 05:55 Active Medications Albuterol Sulfate (Ventolin 0.083% Nebulizer Soln -) 1 amp NEB Q4H PRN PRN Reason: SHORT OF BREATH/WHEEZING Allopurinol (Zyloprim -) 300 mg PO DAILY [facility] Last Admin: 05/25/19 09:49 Dose: 300 mg IV Flush (Angelina-Cath Flush) 10 ml IVPUSH PRN PRN PRN Reason: protocol, maintain patency Amino Acids (Clinimix -) 1,000 mls @ 83.333 mls/hr IV Q12H [facility] Last Admin: 05/25/19 11:17 Dose: 83.333 mls/hr Fat Emulsion-[place] Oil/Soybean Oil (Clinolipid 20% Iv Fat Emulsion) 250 mls @ 20.833 mls/hr IV DAILY@2200 [facility] Lactobacillus Acidophilus (Bacid -) 1 tab PO DAILY [facility] Last Admin: 05/25/19 09:49 Dose: 1 tab Lamivudine (Epivir Oral Solution -) 100 mg PO DAILY [facility] Last Admin: 05/25/19 09:50 Dose: 100 mg Magnesium Chloride (Slow-Mag -) 64 mg PO DAILY [facility] Last Admin: 05/25/19 09:45 Dose: Not Given Multivitamins/Minerals (Infuvite Adult -) 10 ml IV DAILY [facility] Pantoprazole Sodium (Protonix Iv) 40 mg IVPUSH DAILY [facility] Last Admin: 05/25/19 09:49 Dose: 40 mg Phenylephrine HCl (Rebel-Synephrine 0.5% Nasal [place] -) 1 spray NS BID [facility] Last Admin: 05/25/19 09:49 Dose: 1 spray Potassium Chloride (Potassium Chloride Oral Liquid) 20 meq PO DAILY [facility] Last Admin: 05/25/19 09:50 Dose: 20 meq Valacyclovir HCl (Valtrex -) 500 mg PO DAILY [facility] Last Admin: 05/25/19 09:49 Dose: 500 mg A/P s/p Acute Hypoxic Respiratory Failure Pneumonia likely Aspiration UTI Septic Shock resolving Acute on Chronic Renal Failure AML Thrombocytopenia/Anemia - completed antibiotics - monitor CBC - transfuse as needed - replete lytes - aspiration precautions - will need PEG placement - DVT prophylaxis
[2019-05-25] MEDS: NICARDIPINE 25 MG in DEXTROSE 5%-WATER - 240 ML IVPB SCH (14:40)
--- NOTE | 2019-05-25 19:32 | PN ---
Progress Note (short form) - Note Progress Note: Patient seen and examined Stable. Denied pain Last Vital Signs Temp Pulse Resp BP Pulse Ox 98.6 F 80 19 144/97 93 L 05/25/19 18:00 05/25/19 18:00 05/25/19 18:00 05/25/19 18:00 05/25/19 10:00 HEENT: FELIBERTO, EOM Intact Cor: RSR, No murmurs, No gallops Lungs:diffuse rhonchi Abd: Soft, Normal bowel sounds, No organomegaly Ext:No significant edema Skin: No rashes, Integument intact 05/25/19 05:55 05/25/19 05:55 Current Medications Albuterol Sulfate (Ventolin 0.083% Nebulizer Soln -) 1 amp NEB Q4H PRN PRN Reason: SHORT OF BREATH/WHEEZING Allopurinol (Zyloprim -) 300 mg PO DAILY [facility] Last Admin: 05/25/19 09:49 Dose: 300 mg IV Flush (Angelina-Cath Flush) 10 ml IVPUSH PRN PRN PRN Reason: protocol, maintain patency Amino Acids (Clinimix -) 1,000 mls @ 83.333 mls/hr IV Q12H [facility] Last Admin: 05/25/19 11:17 Dose: 83.333 mls/hr Fat Emulsion-[place] Oil/Soybean Oil (Clinolipid 20% Iv Fat Emulsion) 250 mls @ 20.833 mls/hr IV DAILY@2200 [facility] Lactobacillus Acidophilus (Bacid -) 1 tab PO DAILY [facility] Last Admin: 05/25/19 09:49 Dose: 1 tab Lamivudine (Epivir Oral Solution -) 100 mg PO DAILY [facility] Last Admin: 05/25/19 09:50 Dose: 100 mg Magnesium Chloride (Slow-Mag -) 64 mg PO DAILY [facility] Last Admin: 05/25/19 09:45 Dose: Not Given Multivitamins/Minerals (Infuvite Adult -) 10 ml IV DAILY [facility] Last Admin: 05/25/19 10:40 Dose: 10 ml Pantoprazole Sodium (Protonix Iv) 40 mg IVPUSH DAILY [facility] Last Admin: 05/25/19 09:49 Dose: 40 mg Phenylephrine HCl (Rebel-Synephrine 0.5% Nasal [place] -) 1 spray NS BID [facility] Last Admin: 05/25/19 09:49 Dose: 1 spray Potassium Chloride (Potassium Chloride Oral Liquid) 20 meq PO DAILY [facility] Last Admin: 05/25/19 09:50 Dose: 20 meq Valacyclovir HCl (Valtrex -) 500 mg PO DAILY [facility] Last Admin: 05/25/19 09:49 Dose: 500 mg Impression: Acute Hypoxic respiratory failure S/P ventilator support S/P pressors Confusion AML Hx of CLL Sepsis Dr. Garcia will re-address GOC including hypomethylating agents and venetoclax for AML in future with daughter. Monitoring CBC Transfuse platelets prn <15K or bleeding diathesis Transfuse RBC prn Hb < 8.0 g.
[2019-05-25] MEDS: FAT EMULSION/OLIVE/SOY/PHOSPHO 250 ML IV SCH (21:44)
[2019-05-26] MEDS ORDERED: PT OWN MED DRAWER 7, Y5N ONE ×3 (00:23→12:32)
[2019-05-26] MEDS: AMINO ACIDS 4.25%/D5W 1,000 ML IV SCH ×2 (00:55→13:19)
--- NOTE | 2019-05-26 06:41 | PN ---
Progress Note, Physician Chief Complaint: awake alert NAD denies pain able to answer short questions - Current Medication List Current Medications: Active Medications Albuterol Sulfate (Ventolin 0.083% Nebulizer Soln -) 1 amp NEB Q4H PRN PRN Reason: SHORT OF BREATH/WHEEZING Allopurinol (Zyloprim -) 300 mg PO DAILY [facility] Last Admin: 05/25/19 09:49 Dose: 300 mg IV Flush (Angelina-Cath Flush) 10 ml IVPUSH PRN PRN PRN Reason: protocol, maintain patency Amino Acids (Clinimix -) 1,000 mls @ 83.333 mls/hr IV Q12H [facility] Last Admin: 05/26/19 00:55 Dose: 83.333 mls/hr Fat Emulsion-[place] Oil/Soybean Oil (Clinolipid 20% Iv Fat Emulsion) 250 mls @ 20.833 mls/hr IV DAILY@2200 [facility] Last Admin: 05/25/19 21:44 Dose: 20.833 mls/hr Lactobacillus Acidophilus (Bacid -) 1 tab PO DAILY [facility] Last Admin: 05/25/19 09:49 Dose: 1 tab Lamivudine (Epivir Oral Solution -) 100 mg PO DAILY [facility] Last Admin: 05/25/19 09:50 Dose: 100 mg Magnesium Chloride (Slow-Mag -) 64 mg PO DAILY [facility] Last Admin: 05/25/19 09:45 Dose: Not Given Multivitamins/Minerals (Infuvite Adult -) 10 ml IV DAILY [facility] Last Admin: 05/25/19 10:40 Dose: 10 ml Pantoprazole Sodium (Protonix Iv) 40 mg IVPUSH DAILY [facility] Last Admin: 05/25/19 09:49 Dose: 40 mg Phenylephrine HCl (Rebel-Synephrine 0.5% Nasal [place] -) 1 spray NS BID [facility] Last Admin: 05/25/19 21:36 Dose: 1 spray Potassium Chloride (Potassium Chloride Oral Liquid) 20 meq PO DAILY [facility] Last Admin: 05/25/19 09:50 Dose: 20 meq Valacyclovir HCl (Valtrex -) 500 mg PO DAILY [facility] Last Admin: 05/25/19 09:49 Dose: 500 mg - Objective Vital Signs: Vital Signs Temperature 98.4 F 05/26/19 01:51 Pulse Rate 77 05/26/19 01:51 Respiratory Rate 20 02/28/20 01:51 Blood Pressure 120/69 02/28/20 01:51 O2 Sat by Pulse Oximetry (%) 94 L 05/25/19 22:00 Constitutional: Yes: No Distress Eyes: Yes: Conjunctiva Clear HENT: Yes: Atraumatic Neck: Yes: Supple Cardiovascular: Yes: Regular Rate and Rhythm Respiratory: Yes: Diminished Gastrointestinal: Yes: Soft. No: Tenderness Genitourinary: No: Hematuria Musculoskeletal: No: Joint Stiffness, Joint Swelling Extremities: No: Cold, Cool, Cyanosis Edema: No Integumentary: No: Rash Neurological: Yes: Alert ...Motor Strength: WNL Psychiatric: Yes: Alert. No: Agitated Labs: CBC, BMP 05/25/19 05:55 05/25/19 05:55 INR, PTT INR 1.25 (0.83-1.09) H 05/19/19 05:45 Fibrinogen 259.0 mg/dL (238-498) 05/19/19 05:45 - ....Imaging Other: Report Reviewed Assessment/Plan Patient is a 73 year old lady with a significant pmh of CLL, CHF, HTN, HBV admitted with fever. h/o UTis renal stones, and cellulitis; h/o UTI ESBL, sepsis , CRF, CLL and acute leukemia severe anemia s/p PRBC sp PLT r/o aspiration, HOB, speech and swallow eval heme ONC f/u; Transfuse Monodonor PLT and PRBCs as needed; f/u labs; sepsis on IV ATB broad spectrum per ID, f/u cultures; CXR CRF; labs and renal f/u DVT pfx - TEDs / SCDs; not on sq heparin or AC; falls PFX d/w ICU team; swallowing f/u d.w pt and staff - prognosis guarded; called daughter
[2019-05-26 06:52] LABS: EOS % 1.1 % (0-4.5); HEMATOCRIT 25.8 % (32.4-45.2); HEMOGLOBIN 9.1 GM/dL (10.7-15.3); MCH 30.6 pg (25.7-33.7); MCHC 35.2 g/dl (32.0-36.0); MEAN PLT VOLUME 8.8 fl (7.5-11.1); MONO % 51.3 % (3.8-10.2); NEUT % 25.6 % (42.8-82.8); RBC 2.97 M/mm3 (3.60-5.2); RDW 14.9 % (11.6-15.6); WHITE BLOOD COUNT 20.5 K/mm3 (4.0-10.0)
[2019-05-26 07:20] LABS: PLATELET COUNT 35 K/MM3 (134-434)
[2019-05-26 07:21] LABS: BILIRUBIN,TOTAL 0.5 mg/dL (0.2-1); BLOOD UREA NITROGEN 38.9 mg/dL (7-18); CALCIUM 9.3 mg/dL (8.5-10.1); CREATININE 0.8 mg/dL (0.55-1.3); POTASSIUM 3.1 mmol/L (3.5-5.1); TOT PROT 6.2 g/dl (6.4-8.2)
[2019-05-26 10:02] LABS: ANISOCYTOSIS 0; MACROCYTOSIS 0; PLATELET ESTIMATE DECREASED
[2019-05-26] MEDS: PANTOPRAZOLE SODIUM 40 MG VIAL IVPUSH SCH (10:46)
[2019-05-26] MEDS: lamiVUDine 10 MG/1 ML BULK BOTTLE PO SCH (10:46)
[2019-05-26] MEDS: PHENYLEPHRINE 0.5% NASAL SPRAY 15 ML BOTTLE NS SCH ×2 (10:48→21:19)
[2019-05-26] MEDS: valACYclovir HCL 500 MG TABLET (FP) PO SCH (10:48)
[2019-05-26] MEDS: ALLOPURINOL 300 MG TABLET (FP) PO SCH (10:48)
[2019-05-26] MEDS: POTASSIUM CHLORIDE ORAL LIQUID 20 MEQ/15 ML PO SCH (10:48)
[2019-05-26] MEDS: LACTOBACILLUS ACIDOPHILUS 1 TABLET PO SCH (10:48)
[2019-05-26] MEDS: MAGNESIUM CL 64 MG TABLET.SA PO SCH (10:49)
[2019-05-26] MEDS: KCL 10 MEQ IVPB 10 MEQ/100 ML INFUS.BAG IVPB SCH ×3 (10:50→14:40)
--- NOTE | 2019-05-26 11:18 | PN ---
Progress Note, PATIENT SERVICES COORDINATOR - Note Progress Note: Selected Entries 05/25/19 05/25/19 05/25/19 02:00 05:03 10:00 Temperature 98.1 F 98.0 F 98.2 F 05/25/19 05/25/19 05/25/19 13:31 18:00 22:00 Temperature 97.8 F 98.6 F 97.4 F L 05/26/19 05/26/19 05/26/19 01:51 06:00 10:00 Temperature 98.4 F 97.8 F 97.7 F Laboratory Tests 05/24/19 05/25/19 05/26/19 05:30 05:55 05:45 WBC 15.6 H 24.9 H 20.5 H Pt tolerating Magic cup without cough today. Feed with HOB to 90, pillow support behind head to encourage head flexion. Feed slowly, 1/3 tsp at a time. Allow pt to swallow a few times to clear pharynx before next bolus. Educated staff on compensatory swallowing techniques. Continue Magic cup trials and monitor tolerance. Trial Dysphagia puree, NO LIQUIDS. NO SOUP. Monitor PO tolerance. NPO if congested, cough, fever,
--- NOTE | 2019-05-26 11:56 | PN ---
Progress Note (short form) - Note Progress Note: Patient seen and examined Complaining of frontal headache Last Vital Signs Temp Pulse Resp BP Pulse Ox 97.7 F 76 19 126/57 L 94 L 05/26/19 10:00 05/26/19 10:00 05/26/19 10:00 05/26/19 10:00 05/25/19 22:00 HEENT: FELIBERTO, EOM Intact Oropharynx: No thrush, No mucositis Cor: RSR, No murmurs, No gallops Lungs:rhonchi Abd: Soft, Normal bowel sounds, No organomegaly Ext:1+ LE edema Skin: No rashes, Integument intact Some swelling distal RUE CBC, BMP 05/26/19 05:45 05/26/19 05:45 Current Medications Generic Name Dose Route Start Last Admin Trade Name Freq PRN Reason Stop Dose Admin Albuterol Sulfate 1 amp 05/24/19 20:47 Ventolin 0.083% Nebulizer Soln - NEB Q4H PRN SHORT OF BREATH/WHEEZING Allopurinol 300 mg 05/25/19 10:00 05/26/19 10:48 Zyloprim - PO 300 mg DAILY RYAN Administration IV Flush 10 ml 05/24/19 20:47 Angelina-Cath Flush IVPUSH PRN PRN protocol, maintain patency Amino Acids 1,000 mls @ 83.333 mls/hr 05/24/19 23:42 05/26/19 00:55 Clinimix - IV 83.333 mls/hr Q12H RYAN Administration Fat Emulsion-[place] Oil/Soybean Oil 250 mls @ 20.833 mls/hr 05/25/19 22:00 21:44 Clinolipid 20% Iv Fat Emulsion IV 20.833 mls/hr DAILY@2200 RYAN Administration Potassium Chloride 10 meq in 100 mls @ 100 mls/hr 05/26/19 10:30 05/26/19 10: 50 Potassium Chloride 10 Meq Premix Ivpb - IVPB 05/26/19 13:29 100 mls/hr Q60M RYAN Administration Lactobacillus Acidophilus 1 tab 05/25/19 10:00 05/26/19 10:48 Bacid - PO 1 tab DAILY RYAN Administration Lamivudine 100 mg 05/25/19 10:00 05/26/19 10:46 Epivir Oral Solution - PO 100 mg DAILY [facility]AN Administration Magnesium Chloride 64 mg 05/25/19 10:00 05/26/19 10:49 Slow-Mag - PO Not Given DAILY [facility] Multivitamins/Minerals 10 ml 05/25/19 10:00 05/25/19 10:40 Infuvite Adult - IV 10 ml DAILY [facility]AN Administration Pantoprazole Sodium 40 mg 05/25/19 10:00 05/26/19 10:46 Protonix Iv IVPUSH 40 mg DAILY [facility]AN Administration Phenylephrine HCl 1 spray 05/24/19 22:00 05/26/19 10:48 Rebel-Synephrine 0.5% Nasal [place] - NS 1 spray BID [facility]YAN Administration Potassium Chloride 20 meq 05/25/19 10:00 05/26/19 10:48 Potassium Chloride Oral Liquid PO 20 meq DAILY [facility]AN Administration Valacyclovir HCl 500 mg 05/25/19 10:00 05/26/19 10:48 Valtrex - PO 500 mg DAILY [facility] Administration Acute hypoxic respiratory failure- improved AML H/O --CLL Hypokalemia S/P sepsis Confusion Anemia, thrombocytopenia Plan Silent apiration with liquids GOC Transfuse Hb<8.0 g, Platelets < 15 K or bleeding
[2019-05-26] MEDS ORDERED: ACETAMINOPHEN 650 MG/20.3 ML ORAL SOLUTION (CUPS) PO ONE (12:45)
--- NOTE | 2019-05-26 12:54 | PN ---
Progress Note, Physician History of Present Illness: pulmonary alert,comfortable,-resp distress - Current Medication List Current Medications: Active Medications Albuterol Sulfate (Ventolin 0.083% Nebulizer Soln -) 1 amp NEB Q4H PRN PRN Reason: SHORT OF BREATH/WHEEZING Allopurinol (Zyloprim -) 300 mg PO DAILY [facility] Last Admin: 05/26/19 10:48 Dose: 300 mg IV Flush (Angelina-Cath Flush) 10 ml IVPUSH PRN PRN PRN Reason: protocol, maintain patency Amino Acids (Clinimix -) 1,000 mls @ 83.333 mls/hr IV Q12H [facility] Last Admin: 05/26/19 00:55 Dose: 83.333 mls/hr Fat Emulsion-[place] Oil/Soybean Oil (Clinolipid 20% Iv Fat Emulsion) 250 mls @ 20.833 mls/hr IV DAILY@2200 [facility] Last Admin: 05/25/19 21:44 Dose: 20.833 mls/hr Potassium Chloride (Potassium Chloride 10 Meq Premix Ivpb -) 10 meq in 100 mls @ 100 mls/hr IVPB Q60M [facility] Stop: 05/26/19 13:29 Last Admin: 05/26/19 10:50 Dose: 100 mls/hr Lactobacillus Acidophilus (Bacid -) 1 tab PO DAILY [facility] Last Admin: 05/26/19 10:48 Dose: 1 tab Lamivudine (Epivir Oral Solution -) 100 mg PO DAILY [facility] Last Admin: 05/26/19 10:46 Dose: 100 mg Magnesium Chloride (Slow-Mag -) 64 mg PO DAILY [facility] Last Admin: 05/26/19 10:49 Dose: Not Given Multivitamins/Minerals (Infuvite Adult -) 10 ml IV DAILY [facility] Last Admin: 05/25/19 10:40 Dose: 10 ml Pantoprazole Sodium (Protonix Iv) 40 mg IVPUSH DAILY [facility] Last Admin: 05/26/19 10:46 Dose: 40 mg Phenylephrine HCl (Rebel-Synephrine 0.5% Nasal [place] -) 1 spray NS BID [facility] Last Admin: 05/26/19 10:48 Dose: 1 spray Potassium Chloride (Potassium Chloride Oral Liquid) 20 meq PO DAILY [facility] Last Admin: 05/26/19 10:48 Dose: 20 meq Valacyclovir HCl (Valtrex -) 500 mg PO DAILY [facility] Last Admin: 05/26/19 10:48 Dose: 500 mg - Objective Vital Signs: Vital Signs Temperature 97.7 F 05/26/19 10:00 Pulse Rate 76 05/26/19 10:00 Respiratory Rate 19 05/26/19 10:00 Blood Pressure 126/57 L 05/26/19 10:00 O2 Sat by Pulse Oximetry (%) 93 L 05/26/19 09:00 Constitutional: Yes: Calm, Thin Eyes: Yes: WNL HENT: Yes: WNL Neck: Yes: WNL Cardiovascular: Yes: Regular Rate and Rhythm, S1, S2 Respiratory: Yes: Rhonchi (few rhonchi) Gastrointestinal: Yes: Normal Bowel Sounds, Soft Extremities: Yes: WNL Edema: No Labs: CBC, BMP 05/26/19 05:45 05/26/19 05:45 INR, PTT INR 1.25 (0.83-1.09) H 05/19/19 05:45 Fibrinogen 259.0 mg/dL (238-498) 05/19/19 05:45 Problem List - Problems (1) Acute respiratory failure Code(s): J96.00 - ACUTE RESPIRATORY FAILURE, UNSP W HYPOXIA OR HYPERCAPNIA (2) Anemia requiring transfusions Code(s): D64.9 - ANEMIA, UNSPECIFIED (3) Anemia Code(s): D64.9 - ANEMIA, UNSPECIFIED Qualifiers: Anemia type: unspecified type Qualified Code(s): D64.9 - Anemia, unspecified (4) Thrombocytopenia Code(s): D69.6 - THROMBOCYTOPENIA, UNSPECIFIED (5) CHF (congestive heart failure) Code(s): I50.9 - HEART FAILURE, UNSPECIFIED (6) AML (acute myeloblastic leukemia) Code(s): C92.00 - ACUTE MYELOBLASTIC LEUKEMIA, NOT HAVING ACHIEVED REMISSION (7) Septic shock Code(s): A41.9 - SEPSIS, UNSPECIFIED ORGANISM; R65.21 - SEVERE SEPSIS WITH SEPTIC SHOCK Assessment/Plan A/P s/p Acute Hypoxic Respiratory Failure Pneumonia likely Aspiration UTI Septic Shock resolving Acute on Chronic Renal Failure AML Thrombocytopenia/Anemia - monitor CBC,PLT CT - transfuse as needed - replete lytes - aspiration precautions - will need PEG placement - DVT prophylaxis DR MONTOYA
[2019-05-26] MEDS: MULTIVIT INJ. ADULT COMBO WITH VIT K 1 COMBO 10 ML VIAL IV SCH (13:19)
[2019-05-26] MEDS: FAT EMULSION/OLIVE/SOY/PHOSPHO 250 ML IV SCH (21:19)
[2019-05-27] MEDS: AMINO ACIDS 4.25%/D5W 1,000 ML IV SCH ×3 (01:15→23:17)
[2019-05-27 06:38] LABS: BASO % 0.2 % (0-2.0); EOS % 0.8 % (0-4.5); HEMATOCRIT 25.2 % (32.4-45.2); HEMOGLOBIN 8.9 GM/dL (10.7-15.3); LYMPH % 16.5 % (8-40); MCH 30.3 pg (25.7-33.7); MCHC 35.3 g/dl (32.0-36.0); MEAN CELL VOLUME 86.1 fl (80-96); MEAN PLT VOLUME 8.5 fl (7.5-11.1); MONO % 55.3 % (3.8-10.2); NEUT % 27.2 % (42.8-82.8); RBC 2.93 M/mm3 (3.60-5.2); RDW 14.8 % (11.6-15.6); WHITE BLOOD COUNT 22.6 K/mm3 (4.0-10.0)
--- NOTE | 2019-05-27 06:49 | PN ---
Progress Note, Physician Chief Complaint: afebirle; eats purree diet - some cough noted - Current Medication List Current Medications: Active Medications Albuterol Sulfate (Ventolin 0.083% Nebulizer Soln -) 1 amp NEB Q4H PRN PRN Reason: SHORT OF BREATH/WHEEZING Last Admin: 05/27/19 04:27 Dose: 1 amp Allopurinol (Zyloprim -) 300 mg PO DAILY [facility] Last Admin: 05/26/19 10:48 Dose: 300 mg IV Flush (Angelina-Cath Flush) 10 ml IVPUSH PRN PRN PRN Reason: protocol, maintain patency Amino Acids (Clinimix -) 1,000 mls @ 83.333 mls/hr IV Q12H [facility] Last Admin: 05/27/19 01:15 Dose: 83.333 mls/hr Fat Emulsion-[place] Oil/Soybean Oil (Clinolipid 20% Iv Fat Emulsion) 250 mls @ 20.833 mls/hr IV DAILY@2200 [facility] Last Admin: 05/26/19 21:19 Dose: 20.833 mls/hr Lactobacillus Acidophilus (Bacid -) 1 tab PO DAILY [facility] Last Admin: 05/26/19 10:48 Dose: 1 tab Lamivudine (Epivir Oral Solution -) 100 mg PO DAILY [facility] Last Admin: 05/26/19 10:46 Dose: 100 mg Multivitamins/Minerals (Infuvite Adult -) 10 ml IV DAILY [facility] Last Admin: 05/26/19 13:19 Dose: 10 ml Pantoprazole Sodium (Protonix Iv) 40 mg IVPUSH DAILY [facility] Last Admin: 05/26/19 10:46 Dose: 40 mg Phenylephrine HCl (Rebel-Synephrine 0.5% Nasal [place] -) 1 spray NS BID [facility] Last Admin: 05/26/19 21:19 Dose: 1 spray Potassium Chloride (Potassium Chloride Oral Liquid) 20 meq PO DAILY [facility] Last Admin: 05/26/19 10:48 Dose: 20 meq Valacyclovir HCl (Valtrex -) 500 mg PO DAILY [facility] Last Admin: 05/26/19 10:48 Dose: 500 mg - Objective Vital Signs: Vital Signs Temperature 97.6 F 05/27/19 01:56 Pulse Rate 78 05/27/19 01:56 Respiratory Rate 20 05/27/19 01:56 Blood Pressure 126/58 L 05/27/19 01:56 O2 Sat by Pulse Oximetry (%) 96 05/26/19 22:00 Constitutional: Yes: No Distress Eyes: Yes: Conjunctiva Clear HENT: Yes: Atraumatic Neck: Yes: Supple Cardiovascular: Yes: Regular Rate and Rhythm Respiratory: Yes: Diminished Gastrointestinal: Yes: Soft. No: Tenderness Genitourinary: No: Hematuria Musculoskeletal: No: Joint Stiffness, Joint Swelling Extremities: No: Cold, Cool Edema: No Integumentary: No: Rash, Venous Stasis Changes Neurological: Yes: Alert ...Motor Strength: WNL Psychiatric: Yes: Alert. No: Agitated Labs: INR, PTT INR 1.25 (0.83-1.09) H 05/19/19 05:45 Fibrinogen 259.0 mg/dL (238-498) 05/19/19 05:45 - ....Imaging Other: Report Reviewed Assessment/Plan Patient is a 73 year old lady with a significant pmh of CLL, CHF, HTN, HBV admitted with fever. h/o UTis renal stones, and cellulitis; h/o UTI ESBL, sepsis , CRF, CLL and acute leukemia severe anemia s/p PRBC sp PLT r/o aspiration, HOB, speech and swallow eval heme ONC f/u; Transfuse Monodonor PLT and PRBCs as needed; f/u labs; sepsis on IV ATB broad spectrum per ID, f/u cultures; CXR CRF; labs and renal f/u DVT pfx - TEDs / SCDs; not on sq heparin or AC; falls PFX d/w ICU team; swallowing f/u d.w pt and staff - prognosis guarded; called daughter - lefte message to discuss further managemnt - PEG? if pt not able to swallow - vs palliative care
[2019-05-27 07:03] LABS: ALBUMIN 2.9 g/dl (3.4-5.0); BILIRUBIN,TOTAL 0.7 mg/dL (0.2-1); BLOOD UREA NITROGEN 40.8 mg/dL (7-18); CALCIUM 9.6 mg/dL (8.5-10.1); CREATININE 0.8 mg/dL (0.55-1.3); MAGNESIUM 1.9 mg/dL (1.8-2.4); POTASSIUM 3.4 mmol/L (3.5-5.1)
[2019-05-27 07:05] LABS: PLATELET COUNT 28 K/MM3 (134-434)
[2019-05-27] MEDS: valACYclovir HCL 500 MG TABLET (FP) PO SCH (09:12)
[2019-05-27] MEDS: PANTOPRAZOLE SODIUM 40 MG VIAL IVPUSH SCH (09:12)
[2019-05-27] MEDS: LACTOBACILLUS ACIDOPHILUS 1 TABLET PO SCH (09:12)
[2019-05-27] MEDS: lamiVUDine 10 MG/1 ML BULK BOTTLE PO SCH (09:12)
[2019-05-27] MEDS: ALLOPURINOL 300 MG TABLET (FP) PO SCH (09:12)
[2019-05-27] MEDS: PHENYLEPHRINE 0.5% NASAL SPRAY 15 ML BOTTLE NS SCH ×2 (09:13→22:59)
[2019-05-27] MEDS: POTASSIUM CHLORIDE ORAL LIQUID 20 MEQ/15 ML PO SCH (09:24)
[2019-05-27 09:32] LABS: ANISOCYTOSIS 0; MACROCYTOSIS 0; PLATELET ESTIMATE NORMAL
[2019-05-27] MEDS: MULTIVIT INJ. ADULT COMBO WITH VIT K 1 COMBO 10 ML VIAL IV SCH (12:23)
--- NOTE | 2019-05-27 13:57 | PN ---
Progress Note, Physician History of Present Illness: No new events. Denies SOB, pain. - Current Medication List Current Medications: Active Medications Albuterol Sulfate (Ventolin 0.083% Nebulizer Soln -) 1 amp NEB Q4H PRN PRN Reason: SHORT OF BREATH/WHEEZING Last Admin: 05/27/19 04:27 Dose: 1 amp Allopurinol (Zyloprim -) 300 mg PO DAILY [facility] Last Admin: 05/27/19 09:12 Dose: 300 mg IV Flush (Angelina-Cath Flush) 10 ml IVPUSH PRN PRN PRN Reason: protocol, maintain patency Amino Acids (Clinimix -) 1,000 mls @ 83.333 mls/hr IV Q12H [facility] Last Admin: 05/27/19 12:22 Dose: 83.333 mls/hr Fat Emulsion-[place] Oil/Soybean Oil (Clinolipid 20% Iv Fat Emulsion) 250 mls @ 20.833 mls/hr IV DAILY@2200 [facility] Last Admin: 05/26/19 21:19 Dose: 20.833 mls/hr Lactobacillus Acidophilus (Bacid -) 1 tab PO DAILY [facility] Last Admin: 05/27/19 09:12 Dose: 1 tab Lamivudine (Epivir Oral Solution -) 100 mg PO DAILY [facility] Last Admin: 05/27/19 09:12 Dose: 100 mg Multivitamins/Minerals (Infuvite Adult -) 10 ml IV DAILY [facility] Last Admin: 05/27/19 12:23 Dose: 10 ml Pantoprazole Sodium (Protonix Iv) 40 mg IVPUSH DAILY [facility] Last Admin: 05/27/19 09:12 Dose: 40 mg Phenylephrine HCl (Rebel-Synephrine 0.5% Nasal [place] -) 1 spray NS BID [facility] Last Admin: 05/27/19 09:13 Dose: 1 spray Potassium Chloride (Potassium Chloride Oral Liquid) 20 meq PO DAILY [facility] Last Admin: 05/27/19 09:24 Dose: 20 meq Valacyclovir HCl (Valtrex -) 500 mg PO DAILY [facility] Last Admin: 05/27/19 09:12 Dose: 500 mg - Objective Vital Signs: Vital Signs Temperature 97.7 F 05/27/19 10:00 Pulse Rate 98 H 05/27/19 10:00 Respiratory Rate 20 05/27/19 10:00 Blood Pressure 119/83 05/27/19 10:00 O2 Sat by Pulse Oximetry (%) 97 05/27/19 10:00 Constitutional: Yes: No Distress, Calm Eyes: Yes: Conjunctiva Clear Cardiovascular: Yes: Regular Rate and Rhythm Respiratory: Yes: Regular, CTA Bilaterally Gastrointestinal: Yes: Soft Edema: No Labs: CBC, BMP 05/27/19 05:58 05/27/19 05:58 INR, PTT INR 1.25 (0.83-1.09) H 05/19/19 05:45 Fibrinogen 259.0 mg/dL (238-498) 05/19/19 05:45 Assessment/Plan 73F with CLL, MDSAML admitted with coag neg staph bacteremia and GNR UTI. Hospital course c/b AMS and acute hypoxic respiratory failure, possibly 2/2 aspiration PNA. Now extubated. Planned for PEG placement for dysphagia. Plt 28 today. No bleeding. Transfuse if Hb<8.0 g, Platelets < 15 K or bleeding
--- NOTE | 2019-05-27 13:57 | PN ---
Progress Note (short form) - Note Progress Note: Resting in NAD. Confused. No acute events overnight. Intake & Output 05/24/19 05/25/19 05/26/19 05/27/19 23:59 23:59 23:59 23:59 Intake Total 3155.5 1206.1 2622 728 Output Total 2250 1600 1000 800 Balance 905.5 -393.9 1622 -72 Weight 111 lb 4.8 oz Last Vital Signs Temp Pulse Resp BP Pulse Ox 97.7 F 98 H 20 119/83 97 05/27/19 10:00 05/27/19 10:00 05/27/19 10:00 05/27/19 10:00 05/27/19 10:00 Active Medications Albuterol Sulfate (Ventolin 0.083% Nebulizer Soln -) 1 amp NEB Q4H PRN PRN Reason: SHORT OF BREATH/WHEEZING Last Admin: 05/27/19 04:27 Dose: 1 amp Allopurinol (Zyloprim -) 300 mg PO DAILY [facility] Last Admin: 05/27/19 09:12 Dose: 300 mg IV Flush (Angelina-Cath Flush) 10 ml IVPUSH PRN PRN PRN Reason: protocol, maintain patency Amino Acids (Clinimix -) 1,000 mls @ 83.333 mls/hr IV Q12H [facility] Last Admin: 05/27/19 12:22 Dose: 83.333 mls/hr Fat Emulsion-[place] Oil/Soybean Oil (Clinolipid 20% Iv Fat Emulsion) 250 mls @ 20.833 mls/hr IV DAILY@2200 [facility] Last Admin: 05/26/19 21:19 Dose: 20.833 mls/hr Lactobacillus Acidophilus (Bacid -) 1 tab PO DAILY [facility] Last Admin: 05/27/19 09:12 Dose: 1 tab Lamivudine (Epivir Oral Solution -) 100 mg PO DAILY [facility] Last Admin: 05/27/19 09:12 Dose: 100 mg Multivitamins/Minerals (Infuvite Adult -) 10 ml IV DAILY [facility] Last Admin: 05/27/19 12:23 Dose: 10 ml Pantoprazole Sodium (Protonix Iv) 40 mg IVPUSH DAILY [facility] Last Admin: 05/27/19 09:12 Dose: 40 mg Phenylephrine HCl (Rebel-Synephrine 0.5% Nasal [place] -) 1 spray NS BID [facility] Last Admin: 05/27/19 09:13 Dose: 1 spray Potassium Chloride (Potassium Chloride Oral Liquid) 20 meq PO DAILY [facility] Last Admin: 05/27/19 09:24 Dose: 20 meq Valacyclovir HCl (Valtrex -) 500 mg PO DAILY [facility] Last Admin: 05/27/19 09:12 Dose: 500 mg Gen: NAD at rest Heart: RRR Lung: scattered rhonchi Abd: soft, nontender Ext: + edema Laboratory Results - last 24 hr 05/27/19 05/27/19 05:58 05:58 WBC 22.6 H RBC 2.93 L Hgb 8.9 L Hct 25.2 L MCV 86.1 MCH 30.3 MCHC 35.3 RDW 14.8 Plt Count 28 L* MPV 8.5 Absolute Neuts (auto) 6.1 Neutrophils % 27.2 L Neutrophils % (Manual) 15.5 L Band Neutrophils % 0.0 Lymphocytes % 16.5 D Lymphocytes % (Manual) 42.3 H D Monocytes % 55.3 H Monocytes % (Manual) 13 H Eosinophils % 0.8 Eosinophils % (Manual) 10.3 H D Basophils % 0.2 D Basophils % (Manual) 1.0 D Myelocytes % (Man) 7 H Promyelocytes % (Man) 0 D Blast Cells % (Manual) 0 D Nucleated RBC % 0 Metamyelocytes 6 H D Hypochromia 0 Platelet Estimate Normal Polychromasia 0 Poikilocytosis 0 Anisocytosis 0 Microcytosis 0 Macrocytosis 0 Sodium 135 L Potassium 3.4 L Chloride 102 Carbon Dioxide 27 Anion Gap 6 L BUN 40.8 H Creatinine 0.8 Est GFR (CKD-EPI)AfAm 84.77 Est GFR (CKD-EPI)NonAf 73.14 Random Glucose 143 H Calcium 9.6 Magnesium 1.9 Total Bilirubin 0.7 AST 22 ALT 17 Alkaline Phosphatase 88 Total Protein 6.0 L Albumin 2.9 L A/P s/p Acute Hypoxic Respiratory Failure Pneumonia likely Aspiration UTI Septic Shock resolving Acute on Chronic Renal Failure AML Thrombocytopenia/Anemia - completed antibiotics - monitor CBC - transfuse as needed - replete lytes - aspiration precautions - May need PEG placement - DVT prophylaxis Dr Saucedo
[2019-05-27] MEDS ORDERED: PT OWN MED DRAWER 7, Y5N ONE (21:17)
[2019-05-27] MEDS: FAT EMULSION/OLIVE/SOY/PHOSPHO 250 ML IV SCH (22:59)
[2019-05-28] MEDS: ALLOPURINOL 300 MG TABLET (FP) PO SCH (09:06)
[2019-05-28] MEDS: POTASSIUM CHLORIDE ORAL LIQUID 20 MEQ/15 ML PO SCH (09:06)
[2019-05-28] MEDS: PANTOPRAZOLE SODIUM 40 MG VIAL IVPUSH SCH (09:06)
[2019-05-28] MEDS: valACYclovir HCL 500 MG TABLET (FP) PO SCH (09:07)
[2019-05-28] MEDS: LACTOBACILLUS ACIDOPHILUS 1 TABLET PO SCH (09:07)
[2019-05-28] MEDS: lamiVUDine 10 MG/1 ML BULK BOTTLE PO SCH (09:07)
[2019-05-28] MEDS: PHENYLEPHRINE 0.5% NASAL SPRAY 15 ML BOTTLE NS SCH ×2 (09:18→23:00)
[2019-05-28] MEDS: AMINO ACIDS 4.25%/D5W 1,000 ML IV SCH ×2 (12:26→23:07)
[2019-05-28] MEDS: MULTIVIT INJ. ADULT COMBO WITH VIT K 1 COMBO 10 ML VIAL IV SCH (12:26)
--- NOTE | 2019-05-28 13:14 | PN ---
Progress Note, Physician Chief Complaint: ate purree diet no cough afebrile - Current Medication List Current Medications: Active Medications Albuterol Sulfate (Ventolin 0.083% Nebulizer Soln -) 1 amp NEB Q4H PRN PRN Reason: SHORT OF BREATH/WHEEZING Last Admin: 05/27/19 04:27 Dose: 1 amp Allopurinol (Zyloprim -) 300 mg PO DAILY [facility] Last Admin: 05/28/19 09:06 Dose: 300 mg IV Flush (Angelina-Cath Flush) 10 ml IVPUSH PRN PRN PRN Reason: protocol, maintain patency Amino Acids (Clinimix -) 1,000 mls @ 83.333 mls/hr IV Q12H [facility] Last Admin: 05/28/19 12:26 Dose: 83.333 mls/hr Fat Emulsion-[place] Oil/Soybean Oil (Clinolipid 20% Iv Fat Emulsion) 250 mls @ 20.833 mls/hr IV DAILY@2200 [facility] Last Admin: 05/27/19 22:59 Dose: 20.833 mls/hr Lactobacillus Acidophilus (Bacid -) 1 tab PO DAILY [facility] Last Admin: 05/28/19 09:07 Dose: 1 tab Lamivudine (Epivir Oral Solution -) 100 mg PO DAILY [facility] Last Admin: 05/28/19 09:07 Dose: 100 mg Multivitamins/Minerals (Infuvite Adult -) 10 ml IV DAILY [facility] Last Admin: 05/28/19 12:26 Dose: 10 ml Pantoprazole Sodium (Protonix Iv) 40 mg IVPUSH DAILY [facility] Last Admin: 05/28/19 09:06 Dose: 40 mg Phenylephrine HCl (Rebel-Synephrine 0.5% Nasal [place] -) 1 spray NS BID [facility] Last Admin: 05/28/19 09:18 Dose: 1 spray Potassium Chloride (Potassium Chloride Oral Liquid) 20 meq PO DAILY [facility] Last Admin: 05/28/19 09:06 Dose: 20 meq Valacyclovir HCl (Valtrex -) 500 mg PO DAILY [facility] Last Admin: 05/28/19 09:07 Dose: 500 mg - Objective Vital Signs: Vital Signs Temperature 97.7 F 05/28/19 09:17 Pulse Rate 85 05/28/19 09:17 Respiratory Rate 18 05/28/19 09:17 Blood Pressure 122/64 05/28/19 09:17 O2 Sat by Pulse Oximetry (%) 95 05/28/19 09:00 Constitutional: Yes: No Distress, Calm Eyes: Yes: Conjunctiva Clear HENT: Yes: Atraumatic Neck: Yes: Supple Cardiovascular: Yes: Regular Rate and Rhythm Respiratory: Yes: Diminished Gastrointestinal: Yes: Soft. No: Tenderness Genitourinary: No: Hematuria Musculoskeletal: No: Joint Stiffness, Joint Swelling Extremities: No: Cold, Cool Edema: No Integumentary: No: Rash, Skin Tear Neurological: Yes: Alert Psychiatric: Yes: Alert. No: Agitated Labs: CBC, BMP 05/27/19 05:58 05/27/19 05:58 INR, PTT INR 1.25 (0.83-1.09) H 05/19/19 05:45 Fibrinogen 259.0 mg/dL (238-498) 05/19/19 05:45 Assessment/Plan Patient is a 73 year old lady with a significant pmh of CLL, CHF, HTN, HBV admitted with fever. h/o UTis renal stones, and cellulitis; h/o UTI ESBL, sepsis , CRF, CLL and acute leukemia severe anemia s/p PRBC sp PLT r/o aspiration, HOB, speech and swallow f/u heme ONC f/u; Transfuse Monodonor PLT and PRBCs as needed; f/u labs; sepsis s/p IV ATB broad spectrum per ID d.w pt and staff - prognosis guarded; called daughter - left message to discuss further management - PEG?
--- NOTE | 2019-05-28 14:16 | PN ---
Progress Note (short form) - Note Progress Note: Resting in NAD. Confused. No acute events overnight. Intake & Output 05/25/19 05/26/19 05/27/19 05/28/19 23:59 23:59 23:59 23:59 Intake Total 1206.1 2622 1791 1165 Output Total 1600 1000 1800 Balance -393.9 1622 -9 1165 Last Vital Signs Temp Pulse Resp BP Pulse Ox 97.7 F 85 18 122/64 95 05/28/19 09:17 05/28/19 09:17 05/28/19 09:17 05/28/19 09:17 05/28/19 09:00 Active Medications Albuterol Sulfate (Ventolin 0.083% Nebulizer Soln -) 1 amp NEB Q4H PRN PRN Reason: SHORT OF BREATH/WHEEZING Last Admin: 05/27/19 04:27 Dose: 1 amp Allopurinol (Zyloprim -) 300 mg PO DAILY [facility] Last Admin: 05/28/19 09:06 Dose: 300 mg IV Flush (Angelina-Cath Flush) 10 ml IVPUSH PRN PRN PRN Reason: protocol, maintain patency Amino Acids (Clinimix -) 1,000 mls @ 83.333 mls/hr IV Q12H [facility] Last Admin: 05/28/19 12:26 Dose: 83.333 mls/hr Fat Emulsion-[place] Oil/Soybean Oil (Clinolipid 20% Iv Fat Emulsion) 250 mls @ 20.833 mls/hr IV DAILY@2200 [facility] Last Admin: 05/27/19 22:59 Dose: 20.833 mls/hr Lactobacillus Acidophilus (Bacid -) 1 tab PO DAILY [facility] Last Admin: 05/28/19 09:07 Dose: 1 tab Lamivudine (Epivir Oral Solution -) 100 mg PO DAILY [facility] Last Admin: 05/28/19 09:07 Dose: 100 mg Multivitamins/Minerals (Infuvite Adult -) 10 ml IV DAILY [facility] Last Admin: 05/28/19 12:26 Dose: 10 ml Pantoprazole Sodium (Protonix Iv) 40 mg IVPUSH DAILY [facility] Last Admin: 05/28/19 09:06 Dose: 40 mg Phenylephrine HCl (Rebel-Synephrine 0.5% Nasal [place] -) 1 spray NS BID [facility] Last Admin: 05/28/19 09:18 Dose: 1 spray Potassium Chloride (Potassium Chloride Oral Liquid) 20 meq PO DAILY [facility] Last Admin: 05/28/19 09:06 Dose: 20 meq Valacyclovir HCl (Valtrex -) 500 mg PO DAILY [facility] Last Admin: 05/28/19 09:07 Dose: 500 mg Gen: NAD at rest Heart: RRR Lung: scattered rhonchi Abd: soft, nontender Ext: + edema A/P s/p Acute Hypoxic Respiratory Failure Pneumonia likely Aspiration UTI Septic Shock resolving Acute on Chronic Renal Failure AML Thrombocytopenia/Anemia - completed antibiotics - monitor CBC - transfuse as needed - replete lytes - aspiration precautions - DVT prophylaxis Dr Saucedo
--- NOTE | 2019-05-28 17:28 | PN ---
Progress Note, Physician History of Present Illness: No new events. Denies pain, SOB. Still with cough. No bleeding. Answering questions. - Current Medication List Current Medications: Active Medications Albuterol Sulfate (Ventolin 0.083% Nebulizer Soln -) 1 amp NEB Q4H PRN PRN Reason: SHORT OF BREATH/WHEEZING Last Admin: 05/27/19 04:27 Dose: 1 amp Allopurinol (Zyloprim -) 300 mg PO DAILY [facility] Last Admin: 05/28/19 09:06 Dose: 300 mg IV Flush (Angelina-Cath Flush) 10 ml IVPUSH PRN PRN PRN Reason: protocol, maintain patency Amino Acids (Clinimix -) 1,000 mls @ 83.333 mls/hr IV Q12H [facility] Last Admin: 05/28/19 12:26 Dose: 83.333 mls/hr Fat Emulsion-[place] Oil/Soybean Oil (Clinolipid 20% Iv Fat Emulsion) 250 mls @ 20.833 mls/hr IV DAILY@2200 [facility] Last Admin: 05/27/19 22:59 Dose: 20.833 mls/hr Lactobacillus Acidophilus (Bacid -) 1 tab PO DAILY [facility] Last Admin: 05/28/19 09:07 Dose: 1 tab Lamivudine (Epivir Oral Solution -) 100 mg PO DAILY [facility] Last Admin: 05/28/19 09:07 Dose: 100 mg Multivitamins/Minerals (Infuvite Adult -) 10 ml IV DAILY [facility] Last Admin: 05/28/19 12:26 Dose: 10 ml Pantoprazole Sodium (Protonix Iv) 40 mg IVPUSH DAILY [facility] Last Admin: 05/28/19 09:06 Dose: 40 mg Phenylephrine HCl (Rebel-Synephrine 0.5% Nasal [place] -) 1 spray NS BID [facility] Last Admin: 05/28/19 09:18 Dose: 1 spray Potassium Chloride (Potassium Chloride Oral Liquid) 20 meq PO DAILY [facility] Last Admin: 05/28/19 09:06 Dose: 20 meq Valacyclovir HCl (Valtrex -) 500 mg PO DAILY [facility] Last Admin: 05/28/19 09:07 Dose: 500 mg - Objective Vital Signs: Vital Signs Temperature 98.3 F 05/28/19 14:00 Pulse Rate 97 H 05/28/19 14:00 Respiratory Rate 20 05/28/19 14:00 Blood Pressure 128/68 05/28/19 14:00 O2 Sat by Pulse Oximetry (%) 95 05/28/19 09:00 Constitutional: Yes: No Distress, Calm Eyes: Yes: Conjunctiva Clear Respiratory: Yes: Regular, CTA Bilaterally Gastrointestinal: Yes: Soft. No: Tenderness Edema: No Labs: CBC, BMP 05/27/19 05:58 05/27/19 05:58 INR, PTT INR 1.25 (0.83-1.09) H 05/19/19 05:45 Fibrinogen 259.0 mg/dL (238-498) 05/19/19 05:45 Assessment/Plan 73F with CLL, MDSAML admitted with coag neg staph bacteremia and GNR UTI. Hospital course c/b AMS and acute hypoxic respiratory failure, possibly 2/2 aspiration PNA. Now extubated. Planned for PEG placement for dysphagia. No new labs today. Ordered for tomorrow.. No bleeding. Transfuse if Hb<8.0 g, Platelets < 15 K or bleeding
[2019-05-28] MEDS: ACETAMINOPHEN 325 MG TABLET (FP) PO PRN (21:54)
[2019-05-28] MEDS ORDERED: PT OWN MED DRAWER 7, Y5N ONE (22:47)
[2019-05-28] MEDS: FAT EMULSION/OLIVE/SOY/PHOSPHO 250 ML IV SCH (23:00)
[2019-05-29 06:11] LABS: BASO % 1.1 % (0-2.0); EOS % 1.1 % (0-4.5); HEMATOCRIT 25.3 % (32.4-45.2); HEMOGLOBIN 8.9 GM/dL (10.7-15.3); MCH 30.4 pg (25.7-33.7); MCHC 35.1 g/dl (32.0-36.0); MEAN CELL VOLUME 86.6 fl (80-96); MEAN PLT VOLUME 8.2 fl (7.5-11.1); MONO % 50.5 % (3.8-10.2); NEUT % 33.3 % (42.8-82.8); RBC 2.92 M/mm3 (3.60-5.2); RDW 14.9 % (11.6-15.6); WHITE BLOOD COUNT 29.1 K/mm3 (4.0-10.0)
[2019-05-29 06:21] LABS: PLATELET COUNT 22 K/MM3 (134-434)
[2019-05-29 06:48] LABS: BILIRUBIN,TOTAL 0.8 mg/dL (0.2-1); BLOOD UREA NITROGEN 52.5 mg/dL (7-18); CALCIUM 10.2 mg/dL (8.5-10.1); POTASSIUM 3.7 mmol/L (3.5-5.1); TOT PROT 6.3 g/dl (6.4-8.2)
[2019-05-29 09:16] LABS: ANISOCYTOSIS 0; MACROCYTOSIS 0; PLATELET ESTIMATE DECREASED
[2019-05-29] MEDS: ALLOPURINOL 300 MG TABLET (FP) PO SCH (09:18)
[2019-05-29] MEDS: LACTOBACILLUS ACIDOPHILUS 1 TABLET PO SCH (09:18)
[2019-05-29] MEDS: PANTOPRAZOLE SODIUM 40 MG VIAL IVPUSH SCH (09:18)
[2019-05-29] MEDS: lamiVUDine 10 MG/1 ML BULK BOTTLE PO SCH (09:18)
[2019-05-29] MEDS: valACYclovir HCL 500 MG TABLET (FP) PO SCH (09:18)
[2019-05-29] MEDS: PHENYLEPHRINE 0.5% NASAL SPRAY 15 ML BOTTLE NS SCH ×2 (09:19→21:15)
--- NOTE | 2019-05-29 09:30 | PN ---
Progress Note, Physician Chief Complaint: in bed NAD swallow better d/w speech tx labs noted further tx per heme onc d/w dr Joseph - Current Medication List Current Medications: Active Medications Acetaminophen (Tylenol -) 650 mg PO Q6H PRN PRN Reason: FEVER Last Admin: 05/28/19 21:54 Dose: 650 mg Albuterol Sulfate (Ventolin 0.083% Nebulizer Soln -) 1 amp NEB Q4H PRN PRN Reason: SHORT OF BREATH/WHEEZING Last Admin: 05/27/19 04:27 Dose: 1 amp Allopurinol (Zyloprim -) 300 mg PO DAILY [facility] Last Admin: 05/28/19 09:06 Dose: 300 mg IV Flush (Angelina-Cath Flush) 10 ml IVPUSH PRN PRN PRN Reason: protocol, maintain patency Amino Acids (Clinimix -) 1,000 mls @ 83.333 mls/hr IV Q12H [facility] Last Admin: 05/28/19 23:07 Dose: 83.333 mls/hr Fat Emulsion-[place] Oil/Soybean Oil (Clinolipid 20% Iv Fat Emulsion) 250 mls @ 20.833 mls/hr IV DAILY@2200 [facility] Last Admin: 05/28/19 23:00 Dose: 20.833 mls/hr Lactobacillus Acidophilus (Bacid -) 1 tab PO DAILY [facility] Last Admin: 05/28/19 09:07 Dose: 1 tab Lamivudine (Epivir Oral Solution -) 100 mg PO DAILY [facility] Last Admin: 05/28/19 09:07 Dose: 100 mg Multivitamins/Minerals (Infuvite Adult -) 10 ml IV DAILY [facility] Last Admin: 05/28/19 12:26 Dose: 10 ml Pantoprazole Sodium (Protonix Iv) 40 mg IVPUSH DAILY [facility] Last Admin: 05/28/19 09:06 Dose: 40 mg Phenylephrine HCl (Rebel-Synephrine 0.5% Nasal [place] -) 1 spray NS BID [facility] Last Admin: 05/28/19 23:00 Dose: 1 spray Potassium Chloride (Potassium Chloride Oral Liquid) 20 meq PO DAILY [facility] Last Admin: 05/28/19 09:06 Dose: 20 meq Valacyclovir HCl (Valtrex -) 500 mg PO DAILY [facility] Last Admin: 05/28/19 09:07 Dose: 500 mg - Objective Vital Signs: Vital Signs Temperature 97.5 F L 05/29/19 05:41 Pulse Rate 77 05/29/19 05:41 Respiratory Rate 18 05/29/19 05:41 Blood Pressure 135/60 05/29/19 05:41 O2 Sat by Pulse Oximetry (%) 98 05/28/19 20:42 Constitutional: Yes: No Distress, Calm Eyes: Yes: Conjunctiva Clear HENT: Yes: Atraumatic Neck: Yes: Supple Cardiovascular: Yes: Regular Rate and Rhythm Respiratory: Yes: CTA Bilaterally Gastrointestinal: Yes: Soft. No: Tenderness Genitourinary: No: Hematuria Musculoskeletal: No: Joint Stiffness, Joint Swelling Extremities: No: Cold, Cool, Cyanosis Edema: No Integumentary: Yes: Bruising. No: Rash Neurological: Yes: Alert. No: Oriented ...Motor Strength: WNL Psychiatric: Yes: Alert. No: Oriented, Agitated Labs: CBC, BMP 05/29/19 05:35 05/29/19 05:35 INR, PTT INR 1.25 (0.83-1.09) H 05/19/19 05:45 Fibrinogen 259.0 mg/dL (238-498) 05/19/19 05:45 - ....Imaging Other: Report Reviewed Assessment/Plan Patient is a 73 year old lady with a significant pmh of CLL, CHF, HTN, HBV admitted with sepsis; h/o UTis renal stones, and cellulitis; h/o UTI ESBL, sepsis, CRF, CLL and acute leukemia severe anemia s/p PRBC sp PLT heme ONC f/u; Transfuse Monodonor PLT and PRBCs as needed; f/u labs; d.w pt and staff - prognosis guarded; called daughter - left message to discuss further management, daughter said she wants to d/w heme onc about possible treatment, chemotx, before making any further decisions; I suggested to daughter to consider [place] and I called palliative care to f/u; d/w heme dr Joseph
[2019-05-29] MEDS: POTASSIUM CHLORIDE ORAL LIQUID 20 MEQ/15 ML PO SCH (09:31)
--- NOTE | 2019-05-29 09:56 | PN ---
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, SUPPLY CONTROLLER - Note Progress Note: Selected Entries 05/27/19 05/27/19 05/27/19 01:56 06:00 10:00 Breakfast 25% Lunch Temperature 97.6 F 97.8 F 97.7 F 05/27/19 05/27/19 05/28/19 14:00 22:00 02:00 Breakfast Lunch Temperature 98.8 F 98.3 F 97.9 F 05/28/19 05/28/19 05/28/19 06:00 09:17 14:00 Breakfast Lunch Temperature 98.1 F 97.7 F 98.3 F 05/28/19 05/28/19 05/28/19 15:45 18:00 22:00 Breakfast 25% Lunch 50% Temperature 97.5 F L 100.4 F H 05/29/19 05/29/19 05/29/19 02:00 05:41 09:33 Breakfast 50% Lunch Temperature 98.3 F 97.5 F L 05/29/19 09:34 Breakfast Lunch Temperature 98.1 F Laboratory Tests 05/26/19 05/27/19 05/29/19 05:45 05:58 05:35 WBC 20.5 H 22.6 H 29.1 H Pt on Dysphagia puree, NO LIQUIDS. NO SOUP. Overtly tolerating consistency wirh occasional brief cough reported. Compensatory swallowing strategies utilized. Aspiration precautions. Discussed case with PMD, who reviewed option of PEG with daughter who is considering it. To perform repeat MBS to r/o aspiration and hopefully upgrade diet/initiate liquids, if possible. Feed with HOB to 90, pillow support behind head to encourage head flexion. Feed slowly, 1/3 tsp at a time. Allow pt to swallow a few times to clear pharynx before next bolus. Educated staff on compensatory swallowing techniques. Continue Magic cup trials and monitor tolerance. Monitor PO tolerance. NPO if congested, cough, fever
--- NOTE | 2019-05-29 11:56 | PN ---
Progress Note (short form) - Note Progress Note: Resting in NAD. Confused. No acute events overnight. Intake & Output 05/26/19 05/27/19 05/28/19 05/29/19 23:59 23:59 23:59 23:59 Intake Total 2622 1641 2078 1145 Output Total 1000 1800 Balance 1622 -159 2077 1145 Last Vital Signs Temp Pulse Resp BP Pulse Ox 98.1 F 76 18 105/53 L 97 05/29/19 09:34 05/29/19 09:34 05/29/19 09:34 05/29/19 09:34 05/29/19 09:00 Active Medications Acetaminophen (Tylenol -) 650 mg PO Q6H PRN PRN Reason: FEVER Last Admin: 05/28/19 21:54 Dose: 650 mg Albuterol Sulfate (Ventolin 0.083% Nebulizer Soln -) 1 amp NEB Q4H PRN PRN Reason: SHORT OF BREATH/WHEEZING Last Admin: 05/27/19 04:27 Dose: 1 amp Allopurinol (Zyloprim -) 300 mg PO DAILY [facility] Last Admin: 05/29/19 09:18 Dose: 300 mg IV Flush (Angelina-Cath Flush) 10 ml IVPUSH PRN PRN PRN Reason: protocol, maintain patency Amino Acids (Clinimix -) 1,000 mls @ 83.333 mls/hr IV Q12H [facility] Last Admin: 05/28/19 23:07 Dose: 83.333 mls/hr Fat Emulsion-[place] Oil/Soybean Oil (Clinolipid 20% Iv Fat Emulsion) 250 mls @ 20.833 mls/hr IV DAILY@2200 [facility] Last Admin: 05/28/19 23:00 Dose: 20.833 mls/hr Lactobacillus Acidophilus (Bacid -) 1 tab PO DAILY [facility] Last Admin: 05/29/19 09:18 Dose: 1 tab Lamivudine (Epivir Oral Solution -) 100 mg PO DAILY [facility] Last Admin: 05/29/19 09:18 Dose: 100 mg Multivitamins/Minerals (Infuvite Adult -) 10 ml IV DAILY [facility] Last Admin: 05/28/19 12:26 Dose: 10 ml Pantoprazole Sodium (Protonix Iv) 40 mg IVPUSH DAILY [facility] Last Admin: 05/29/19 09:18 Dose: 40 mg Phenylephrine HCl (Rebel-Synephrine 0.5% Nasal [place] -) 1 spray NS BID [facility] Last Admin: 05/29/19 09:19 Dose: 1 spray Potassium Chloride (Potassium Chloride Oral Liquid) 20 meq PO DAILY [facility] Last Admin: 05/29/19 09:31 Dose: 20 meq Valacyclovir HCl (Valtrex -) 500 mg PO DAILY [facility] Last Admin: 05/29/19 09:18 Dose: 500 mg Gen: NAD at rest Heart: RRR Lung: scattered rhonchi Abd: soft, nontender Ext: + edema A/P s/p Acute Hypoxic Respiratory Failure Pneumonia likely Aspiration UTI Septic Shock resolving Acute on Chronic Renal Failure AML Thrombocytopenia/Anemia - completed antibiotics - monitor CBC - transfuse as needed - replete lytes - Aspiration precautions - DVT prophylaxis Dr Saucedo
[2019-05-29] MEDS: AMINO ACIDS 4.25%/D5W 1,000 ML IV SCH (14:53)
[2019-05-29] MEDS: MULTIVIT INJ. ADULT COMBO WITH VIT K 1 COMBO 10 ML VIAL IV SCH (14:54)
[2019-05-29] MEDS ORDERED: PT OWN MED DRAWER 7, Y5N ONE (21:54)
[2019-05-29] MEDS: FAT EMULSION/OLIVE/SOY/PHOSPHO 250 ML IV SCH (22:30)
[2019-05-30] MEDS: AMINO ACIDS 4.25%/D5W 1,000 ML IV SCH ×2 (03:55→12:38)
[2019-05-30 06:35] LABS: BASO % 1.1 % (0-2.0); EOS % 1.2 % (0-4.5); HEMOGLOBIN 8.3 GM/dL (10.7-15.3); LYMPH % 13.4 % (8-40); MCHC 34.6 g/dl (32.0-36.0); MEAN CELL VOLUME 86.6 fl (80-96); MEAN PLT VOLUME 7.8 fl (7.5-11.1); MONO % 47.1 % (3.8-10.2); NEUT % 37.2 % (42.8-82.8); RBC 2.78 M/mm3 (3.60-5.2); RDW 14.8 % (11.6-15.6)
[2019-05-30 06:55] LABS: PLATELET COUNT 18 K/MM3 (134-434); WHITE BLOOD COUNT 30.7 K/mm3 (4.0-10.0)
[2019-05-30 07:03] LABS: ALBUMIN 3.1 g/dl (3.4-5.0); BILIRUBIN,TOTAL 0.5 mg/dL (0.2-1); CALCIUM 10.2 mg/dL (8.5-10.1); CREATININE 0.9 mg/dL (0.55-1.3); POTASSIUM 3.4 mmol/L (3.5-5.1); TOT PROT 6.2 g/dl (6.4-8.2)
[2019-05-30] MEDS ORDERED: PT OWN MED DRAWER 7, Y5N ONE ×3 (09:23→21:21)
[2019-05-30] MEDS: lamiVUDine 10 MG/1 ML BULK BOTTLE PO SCH (09:34)
[2019-05-30] MEDS: POTASSIUM CHLORIDE ORAL LIQUID 20 MEQ/15 ML PO SCH (09:34)
[2019-05-30] MEDS: valACYclovir HCL 500 MG TABLET (FP) PO SCH (09:35)
[2019-05-30] MEDS: ALLOPURINOL 300 MG TABLET (FP) PO SCH (09:36)
[2019-05-30] MEDS: LACTOBACILLUS ACIDOPHILUS 1 TABLET PO SCH (09:43)
[2019-05-30] MEDS: PANTOPRAZOLE SODIUM 40 MG VIAL IVPUSH SCH (09:43)
[2019-05-30 09:48] LABS: ANISOCYTOSIS 1+; MACROCYTOSIS 0; PLATELET ESTIMATE DECREASED
--- NOTE | 2019-05-30 10:00 | PN ---
Progress Note, Physician Chief Complaint: in bed awake alert NAD afebrile no new c/o - Current Medication List Current Medications: Active Medications Acetaminophen (Tylenol -) 650 mg PO Q6H PRN PRN Reason: FEVER Last Admin: 05/28/19 21:54 Dose: 650 mg Allopurinol (Zyloprim -) 300 mg PO DAILY [facility] Last Admin: 05/30/19 09:36 Dose: 300 mg IV Flush (Angelina-Cath Flush) 10 ml IVPUSH PRN PRN PRN Reason: protocol, maintain patency Amino Acids (Clinimix -) 1,000 mls @ 83.333 mls/hr IV Q12H [facility] Last Admin: 05/30/19 03:55 Dose: 83.333 mls/hr Fat Emulsion-[place] Oil/Soybean Oil (Clinolipid 20% Iv Fat Emulsion) 250 mls @ 20.833 mls/hr IV DAILY@2200 [facility] Last Admin: 05/29/19 22:30 Dose: 20.833 mls/hr Lactobacillus Acidophilus (Bacid -) 1 tab PO DAILY [facility] Last Admin: 05/30/19 09:43 Dose: 1 tab Lamivudine (Epivir Oral Solution -) 100 mg PO DAILY [facility] Last Admin: 05/30/19 09:34 Dose: 100 mg Multivitamins/Minerals (Infuvite Adult -) 10 ml IV DAILY [facility] Last Admin: 05/29/19 14:54 Dose: 10 ml Pantoprazole Sodium (Protonix Iv) 40 mg IVPUSH DAILY [facility] Last Admin: 05/30/19 09:43 Dose: 40 mg Phenylephrine HCl (Rebel-Synephrine 0.5% Nasal [place] -) 1 spray NS BID [facility] Last Admin: 05/29/19 21:15 Dose: 1 spray Potassium Chloride (Potassium Chloride Oral Liquid) 20 meq PO DAILY [facility] Last Admin: 05/30/19 09:34 Dose: 20 meq Valacyclovir HCl (Valtrex -) 500 mg PO DAILY [facility] Last Admin: 05/30/19 09:35 Dose: 500 mg - Objective Vital Signs: Vital Signs Temperature 98.4 F 05/30/19 06:00 Pulse Rate 84 05/30/19 06:00 Respiratory Rate 20 05/30/19 06:00 Blood Pressure 119/55 L 05/30/19 06:00 O2 Sat by Pulse Oximetry (%) 97 05/29/19 22:00 Constitutional: Yes: No Distress, Calm Eyes: Yes: Conjunctiva Clear HENT: Yes: Atraumatic Neck: Yes: Supple Cardiovascular: Yes: Regular Rate and Rhythm Respiratory: Yes: CTA Bilaterally Gastrointestinal: Yes: Soft. No: Tenderness Musculoskeletal: No: Joint Stiffness, Joint Swelling Extremities: No: Cold, Cool, Cyanosis Edema: No Integumentary: No: Rash, Venous Stasis Changes Neurological: Yes: Alert ...Motor Strength: WNL Psychiatric: Yes: Alert. No: Agitated, Suicidal Ideation Labs: CBC, BMP 05/30/19 05:54 05/30/19 05:54 INR, PTT INR 1.25 (0.83-1.09) H 05/19/19 05:45 Fibrinogen 259.0 mg/dL (238-498) 05/19/19 05:45 Assessment/Plan Patient is a 73 year old lady with a significant pmh of CLL, CHF, HTN, HBV admitted with sepsis; h/o UTis renal stones, and cellulitis; h/o UTI ESBL, sepsis, CRF, CLL and acute leukemia severe anemia s/p PRBC sp PLT heme ONC f/u; Transfuse Monodonor PLT and PRBCs as needed; f/u labs; d.w pt and staff - prognosis guarded; called daughter - left message to discuss further management, daughter said she wants to d/w heme onc about possible treatment, chemotx, before making any further decisions; I suggested to daughter to consider [place] and I called palliative care to f/u; d/w heme dr Joseph
[2019-05-30] MEDS: PHENYLEPHRINE 0.5% NASAL SPRAY 15 ML BOTTLE NS SCH ×2 (10:26→21:28)
--- NOTE | 2019-05-30 11:14 | PN ---
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 Pt is a full code.
--- NOTE | 2019-05-30 11:54 | PN ---
Progress Note, Physician History of Present Illness: pulmonary awake,comfortable,-sob - Current Medication List Current Medications: Active Medications Acetaminophen (Tylenol -) 650 mg PO Q6H PRN PRN Reason: FEVER Last Admin: 05/28/19 21:54 Dose: 650 mg Allopurinol (Zyloprim -) 300 mg PO DAILY [facility] Last Admin: 05/30/19 09:36 Dose: 300 mg IV Flush (Angelina-Cath Flush) 10 ml IVPUSH PRN PRN PRN Reason: protocol, maintain patency Amino Acids (Clinimix -) 1,000 mls @ 83.333 mls/hr IV Q12H [facility] Last Admin: 05/30/19 03:55 Dose: 83.333 mls/hr Fat Emulsion-[place] Oil/Soybean Oil (Clinolipid 20% Iv Fat Emulsion) 250 mls @ 20.833 mls/hr IV DAILY@2200 [facility] Last Admin: 05/29/19 22:30 Dose: 20.833 mls/hr Lactobacillus Acidophilus (Bacid -) 1 tab PO DAILY [facility] Last Admin: 05/30/19 09:43 Dose: 1 tab Lamivudine (Epivir Oral Solution -) 100 mg PO DAILY [facility] Last Admin: 05/30/19 09:34 Dose: 100 mg Multivitamins/Minerals (Infuvite Adult -) 10 ml IV DAILY [facility] Last Admin: 05/29/19 14:54 Dose: 10 ml Pantoprazole Sodium (Protonix Iv) 40 mg IVPUSH DAILY [facility] Last Admin: 05/30/19 09:43 Dose: 40 mg Phenylephrine HCl (Rebel-Synephrine 0.5% Nasal [place] -) 1 spray NS BID [facility] Last Admin: 05/30/19 10:26 Dose: 1 spray Potassium Chloride (Potassium Chloride Oral Liquid) 20 meq PO DAILY [facility] Last Admin: 05/30/19 09:34 Dose: 20 meq Valacyclovir HCl (Valtrex -) 500 mg PO DAILY [facility] Last Admin: 05/30/19 09:35 Dose: 500 mg - Objective Vital Signs: Vital Signs Temperature 98.5 F 05/30/19 10:00 Pulse Rate 89 05/30/19 10:00 Respiratory Rate 20 05/30/19 10:00 Blood Pressure 135/64 05/30/19 10:00 O2 Sat by Pulse Oximetry (%) 95 03/03/20 09:00 Constitutional: Yes: Calm, Thin Eyes: Yes: WNL HENT: Yes: WNL Neck: Yes: WNL Cardiovascular: Yes: Regular Rate and Rhythm, S1, S2 Respiratory: Yes: Rhonchi (few rhonchi) Gastrointestinal: Yes: Normal Bowel Sounds, Soft Extremities: Yes: WNL Edema: No Labs: CBC, BMP 05/30/19 05:54 05/30/19 05:54 INR, PTT INR 1.25 (0.83-1.09) H 05/19/19 05:45 Fibrinogen 259.0 mg/dL (238-498) 05/19/19 05:45 Problem List - Problems (1) Acute respiratory failure Code(s): J96.00 - ACUTE RESPIRATORY FAILURE, UNSP W HYPOXIA OR HYPERCAPNIA (2) Anemia requiring transfusions Code(s): D64.9 - ANEMIA, UNSPECIFIED (3) Anemia Code(s): D64.9 - ANEMIA, UNSPECIFIED Qualifiers: Anemia type: unspecified type Qualified Code(s): D64.9 - Anemia, unspecified (4) Thrombocytopenia Code(s): D69.6 - THROMBOCYTOPENIA, UNSPECIFIED (5) CHF (congestive heart failure) Code(s): I50.9 - HEART FAILURE, UNSPECIFIED (6) AML (acute myeloblastic leukemia) Code(s): C92.00 - ACUTE MYELOBLASTIC LEUKEMIA, NOT HAVING ACHIEVED REMISSION (7) Septic shock Code(s): A41.9 - SEPSIS, UNSPECIFIED ORGANISM; R65.21 - SEVERE SEPSIS WITH SEPTIC SHOCK Assessment/Plan A/P s/p Acute Hypoxic Respiratory Failure Pneumonia likely Aspiration UTI Septic Shock resolving Acute on Chronic Renal Failure AML Thrombocytopenia/Anemia - monitor CBC,PLT CT - transfuse as needed - replete lytes - aspiration precautions - DVT prophylaxis DR MONTOYA
[2019-05-30] MEDS: MULTIVIT INJ. ADULT COMBO WITH VIT K 1 COMBO 10 ML VIAL IV SCH (12:41)
[2019-05-30] MEDS: ACETAMINOPHEN 325 MG TABLET (FP) PO PRN (14:29)
--- NOTE | 2019-05-30 17:37 | PN ---
Progress Note (short form) - Note Progress Note: Patient seen and examined Stable. Denied pain Last Vital Signs Temp Pulse Resp BP Pulse Ox 99.2 F 106 H 20 128/59 L 95 05/30/19 14:00 05/30/19 14:00 05/30/19 14:00 05/30/19 14:00 05/30/19 09:00 HEENT: FELIBERTO, EOM Intact Cor: RSR, No murmurs, No gallops Lungs:diffuse rhonchi Abd: Soft, Normal bowel sounds, No organomegaly Ext:No significant edema Skin: No rashes, Integument intact 05/30/19 05:54 05/30/19 05:54 Current Medications Acetaminophen (Tylenol -) 650 mg PO Q6H PRN PRN Reason: FEVER Last Admin: 05/30/19 14:29 Dose: 650 mg Allopurinol (Zyloprim -) 300 mg PO DAILY [facility] Last Admin: 05/30/19 09:36 Dose: 300 mg IV Flush (Angelina-Cath Flush) 10 ml IVPUSH PRN PRN PRN Reason: protocol, maintain patency Amino Acids (Clinimix -) 1,000 mls @ 83.333 mls/hr IV Q12H [facility] Last Admin: 05/30/19 12:38 Dose: 83.333 mls/hr Fat Emulsion-[place] Oil/Soybean Oil (Clinolipid 20% Iv Fat Emulsion) 250 mls @ 20.833 mls/hr IV DAILY@2200 [facility] Last Admin: 05/29/19 22:30 Dose: 20.833 mls/hr Lactobacillus Acidophilus (Bacid -) 1 tab PO DAILY [facility] Last Admin: 05/30/19 09:43 Dose: 1 tab Lamivudine (Epivir Oral Solution -) 100 mg PO DAILY [facility] Last Admin: 05/30/19 09:34 Dose: 100 mg Multivitamins/Minerals (Infuvite Adult -) 10 ml IV DAILY [facility] Last Admin: 05/30/19 12:41 Dose: 10 ml Pantoprazole Sodium (Protonix Iv) 40 mg IVPUSH DAILY [facility] Last Admin: 05/30/19 09:43 Dose: 40 mg Phenylephrine HCl (Rebel-Synephrine 0.5% Nasal [place] -) 1 spray NS BID [facility] Last Admin: 05/30/19 10:26 Dose: 1 spray Potassium Chloride (Potassium Chloride Oral Liquid) 20 meq PO DAILY [facility] Last Admin: 05/30/19 09:34 Dose: 20 meq Valacyclovir HCl (Valtrex -) 500 mg PO DAILY [facility] Last Admin: 05/30/19 09:35 Dose: 500 mg Impression: Acute Hypoxic respiratory failure S/P ventilator support S/P pressors Confusion AML Hx of CLL Sepsis PCP involving palliative care and suggested [facility]. Daughter wanted to discuss with us about prognosis. Dr. Joseph or myself will discuss in AM Monitoring CBC Transfuse platelets prn <15K or bleeding diathesis Transfuse RBC prn Hb < 8.0 g.
[2019-05-30] MEDS: FAT EMULSION/OLIVE/SOY/PHOSPHO 250 ML IV SCH (21:28)
[2019-05-31] MEDS: AMINO ACIDS 4.25%/D5W 1,000 ML IV SCH ×3 (04:00→21:35)
[2019-05-31 07:27] LABS: EOS % 0.8 % (0-4.5); HEMATOCRIT 23.7 % (32.4-45.2); HEMOGLOBIN 8.4 GM/dL (10.7-15.3); LYMPH % 12.4 % (8-40); MCH 30.1 pg (25.7-33.7); MCHC 35.4 g/dl (32.0-36.0); MEAN CELL VOLUME 85.1 fl (80-96); MEAN PLT VOLUME 10.6 fl (7.5-11.1); MONO % 45.8 % (3.8-10.2); RBC 2.78 M/mm3 (3.60-5.2); RDW 14.8 % (11.6-15.6)
[2019-05-31 07:31] LABS: WHITE BLOOD COUNT 32.4 K/mm3 (4.0-10.0)
[2019-05-31 07:32] LABS: PLATELET COUNT 9 K/MM3 (134-434)
[2019-05-31 07:38] LABS: ALBUMIN 3.1 g/dl (3.4-5.0); BILIRUBIN,TOTAL 0.6 mg/dL (0.2-1); BLOOD UREA NITROGEN 61.3 mg/dL (7-18); CALCIUM 10.6 mg/dL (8.5-10.1); POTASSIUM 3.6 mmol/L (3.5-5.1); TOT PROT 6.3 g/dl (6.4-8.2)
--- NOTE | 2019-05-31 08:41 | PN ---
Progress Note, Physician Chief Complaint: awake alert NAD afebrile WBC 32; PLT 9 has some bruising / skin and epistaxis - Current Medication List Current Medications: Active Medications Acetaminophen (Tylenol -) 650 mg PO Q6H PRN PRN Reason: FEVER Last Admin: 05/30/19 14:29 Dose: 650 mg Allopurinol (Zyloprim -) 300 mg PO DAILY [facility] Last Admin: 05/30/19 09:36 Dose: 300 mg IV Flush (Angelina-Cath Flush) 10 ml IVPUSH PRN PRN PRN Reason: protocol, maintain patency Amino Acids (Clinimix -) 1,000 mls @ 83.333 mls/hr IV Q12H [facility] Last Admin: 05/31/19 04:00 Dose: 83.333 mls/hr Fat Emulsion-[place] Oil/Soybean Oil (Clinolipid 20% Iv Fat Emulsion) 250 mls @ 20.833 mls/hr IV DAILY@2200 [facility] Last Admin: 05/30/19 21:28 Dose: 20.833 mls/hr Lactobacillus Acidophilus (Bacid -) 1 tab PO DAILY [facility] Last Admin: 05/30/19 09:43 Dose: 1 tab Lamivudine (Epivir Oral Solution -) 100 mg PO DAILY [facility] Last Admin: 05/30/19 09:34 Dose: 100 mg Multivitamins/Minerals (Infuvite Adult -) 10 ml IV DAILY [facility] Last Admin: 05/30/19 12:41 Dose: 10 ml Pantoprazole Sodium (Protonix Iv) 40 mg IVPUSH DAILY [facility] Last Admin: 05/30/19 09:43 Dose: 40 mg Phenylephrine HCl (Rebel-Synephrine 0.5% Nasal [place] -) 1 spray NS BID [facility] Last Admin: 05/30/19 21:28 Dose: 1 spray Potassium Chloride (Potassium Chloride Oral Liquid) 20 meq PO DAILY [facility] Last Admin: 05/30/19 09:34 Dose: 20 meq Valacyclovir HCl (Valtrex -) 500 mg PO DAILY [facility] Last Admin: 05/30/19 09:35 Dose: 500 mg - Objective Vital Signs: Vital Signs Temperature 98.4 F 05/31/19 06:00 Pulse Rate 79 05/31/19 06:00 Respiratory Rate 20 05/31/19 06:00 Blood Pressure 118/54 L 05/31/19 06:00 O2 Sat by Pulse Oximetry (%) 92 L 05/30/19 22:00 Constitutional: Yes: No Distress, Calm Eyes: Yes: Conjunctiva Clear HENT: Yes: Atraumatic Neck: Yes: Supple Cardiovascular: Yes: Regular Rate and Rhythm Respiratory: Yes: Diminished Gastrointestinal: Yes: Soft. No: Tenderness Genitourinary: No: Hematuria Musculoskeletal: No: Joint Stiffness, Joint Swelling Extremities: No: Cold, Cool, Cyanosis Edema: No Integumentary: Yes: Bruising. No: Rash, Venous Stasis Changes Neurological: Yes: Alert ...Motor Strength: WNL Psychiatric: Yes: Alert. No: Agitated, Suicidal Ideation Labs: CBC, BMP 05/31/19 06:40 05/31/19 06:40 INR, PTT INR 1.25 (0.83-1.09) H 05/19/19 05:45 Fibrinogen 259.0 mg/dL (238-498) 05/19/19 05:45 - ....Imaging Other: Report Reviewed Assessment/Plan Patient is a 73 year old lady with a significant pmh of CLL, CHF, HTN, HBV admitted with sepsis; h/o UTis renal stones, and cellulitis; h/o UTI ESBL, sepsis, CRF, CLL and acute leukemia severe anemia s/p PRBC sp PLT heme ONC f/u; Transfuse Monodonor PLT - f/u labs; prgnosis guarded; d/w heme onc dr Watkins - will see her today to decide about further tx (chemotx?) d.w pt and staff - prognosis guarded; called daughter - left message; palliative care eval
[2019-05-31] MEDS ORDERED: PT OWN MED DRAWER 7, Y5N ONE ×3 (09:09→21:56)
[2019-05-31] MEDS: valACYclovir HCL 500 MG TABLET (FP) PO SCH (09:11)
[2019-05-31] MEDS: LACTOBACILLUS ACIDOPHILUS 1 TABLET PO SCH (09:11)
[2019-05-31] MEDS: PANTOPRAZOLE SODIUM 40 MG VIAL IVPUSH SCH (09:11)
[2019-05-31] MEDS: ALLOPURINOL 300 MG TABLET (FP) PO SCH (09:11)
[2019-05-31] MEDS: lamiVUDine 10 MG/1 ML BULK BOTTLE PO SCH (09:12)
[2019-05-31] MEDS: PHENYLEPHRINE 0.5% NASAL SPRAY 15 ML BOTTLE NS SCH ×2 (09:13→21:02)
[2019-05-31] MEDS: POTASSIUM CHLORIDE ORAL LIQUID 20 MEQ/15 ML PO SCH (09:13)
[2019-05-31 09:22] LABS: ANISOCYTOSIS 0; MACROCYTOSIS 0; PLATELET ESTIMATE DECREASED
--- NOTE | 2019-05-31 11:33 | PN ---
Progress Note, Physician History of Present Illness: pulmonary awake,comfortable -sob ,+ nose bleed earlier - Current Medication List Current Medications: Active Medications Acetaminophen (Tylenol -) 650 mg PO Q6H PRN PRN Reason: FEVER Last Admin: 05/30/19 14:29 Dose: 650 mg Allopurinol (Zyloprim -) 300 mg PO DAILY [facility] Last Admin: 05/31/19 09:11 Dose: 300 mg IV Flush (Angelina-Cath Flush) 10 ml IVPUSH PRN PRN PRN Reason: protocol, maintain patency Amino Acids (Clinimix -) 1,000 mls @ 83.333 mls/hr IV Q12H [facility] Last Admin: 05/31/19 04:00 Dose: 83.333 mls/hr Fat Emulsion-[place] Oil/Soybean Oil (Clinolipid 20% Iv Fat Emulsion) 250 mls @ 20.833 mls/hr IV DAILY@2200 [facility] Last Admin: 05/30/19 21:28 Dose: 20.833 mls/hr Lactobacillus Acidophilus (Bacid -) 1 tab PO DAILY [facility] Last Admin: 05/31/19 09:11 Dose: 1 tab Lamivudine (Epivir Oral Solution -) 100 mg PO DAILY [facility] Last Admin: 05/31/19 09:12 Dose: 100 mg Multivitamins/Minerals (Infuvite Adult -) 10 ml IV DAILY [facility] Last Admin: 05/30/19 12:41 Dose: 10 ml Pantoprazole Sodium (Protonix Iv) 40 mg IVPUSH DAILY [facility] Last Admin: 05/31/19 09:11 Dose: 40 mg Phenylephrine HCl (Rebel-Synephrine 0.5% Nasal [place] -) 1 spray NS BID [facility] Last Admin: 05/31/19 09:13 Dose: 1 spray Potassium Chloride (Potassium Chloride Oral Liquid) 20 meq PO DAILY [facility] Last Admin: 05/31/19 09:13 Dose: 20 meq Valacyclovir HCl (Valtrex -) 500 mg PO DAILY [facility] Last Admin: 05/31/19 09:11 Dose: 500 mg - Objective Vital Signs: Vital Signs Temperature 98.4 F 05/31/19 06:00 Pulse Rate 79 05/31/19 06:00 Respiratory Rate 20 05/31/19 09:00 Blood Pressure 118/54 L 05/31/19 06:00 O2 Sat by Pulse Oximetry (%) 94 L 05/31/19 09:00 Constitutional: Yes: Calm, Thin Eyes: Yes: WNL HENT: Yes: WNL Neck: Yes: WNL Cardiovascular: Yes: Regular Rate and Rhythm, S1, S2 Respiratory: Yes: Rhonchi (few rhonchi) Gastrointestinal: Yes: Normal Bowel Sounds, Soft Extremities: Yes: WNL Edema: No Labs: CBC, BMP 05/31/19 06:40 05/31/19 06:40 INR, PTT INR 1.25 (0.83-1.09) H 05/19/19 05:45 Fibrinogen 259.0 mg/dL (238-498) 05/19/19 05:45 Problem List - Problems (1) Acute respiratory failure Code(s): J96.00 - ACUTE RESPIRATORY FAILURE, UNSP W HYPOXIA OR HYPERCAPNIA (2) Anemia requiring transfusions Code(s): D64.9 - ANEMIA, UNSPECIFIED (3) Anemia Code(s): D64.9 - ANEMIA, UNSPECIFIED Qualifiers: Anemia type: unspecified type Qualified Code(s): D64.9 - Anemia, unspecified (4) Thrombocytopenia Code(s): D69.6 - THROMBOCYTOPENIA, UNSPECIFIED (5) CHF (congestive heart failure) Code(s): I50.9 - HEART FAILURE, UNSPECIFIED (6) AML (acute myeloblastic leukemia) Code(s): C92.00 - ACUTE MYELOBLASTIC LEUKEMIA, NOT HAVING ACHIEVED REMISSION (7) Septic shock Code(s): A41.9 - SEPSIS, UNSPECIFIED ORGANISM; R65.21 - SEVERE SEPSIS WITH SEPTIC SHOCK Assessment/Plan A/P s/p Acute Hypoxic Respiratory Failure Pneumonia likely Aspiration UTI Septic Shock resolving Acute on Chronic Renal Failure AML Thrombocytopenia/Anemia - monitor CBC,PLT CT - transfuse as needed - replete lytes - aspiration precautions - DVT prophylaxis DR MONTOYA
--- NOTE | 2019-05-31 12:24 | PN ---
Progress Note, [employer] - Note Progress Note: Selected Entries 05/30/19 05/30/19 05/30/19 02:00 06:00 10:00 Breakfast Lunch Supper Temperature 98.3 F 98.4 F 98.5 F 05/30/19 05/30/19 05/30/19 14:00 18:00 22:00 Breakfast 50% Lunch 25% Supper 25% Temperature 99.2 F 99.4 F 98.2 F 05/31/19 05/31/19 05/31/19 01:46 06:00 10:00 Breakfast Lunch Supper Temperature 98.7 F 98.4 F 97.7 F Laboratory Tests 05/30/19 05/31/19 05:54 06:40 WBC 30.7 H* 32.4 H* Comfortable respiration. On puree/honey thick liquid on tsp only Feed with HOB to 90, pillow support behind head to encourage head flexion. Feed slowly, 1/3 tsp at a time. Allow pt to swallow a few times to clear pharynx before next bolus. Educated staff on compensatory swallowing techniques. Continue Magic cup trials and monitor tolerance. Monitor PO tolerance. NPO if congested, cough, fever
--- NOTE | 2019-05-31 20:53 | PN ---
Progress Note (short form) - Note Progress Note: PAtient seen and examined comfortable. ORiented in person, place HAs a nose bleed Last Vital Signs Temp Pulse Resp BP Pulse Ox 98.5 F 89 20 129/55 L 94 L 05/31/19 18:00 05/31/19 18:00 05/31/19 18:00 05/31/19 18:00 05/31/19 10:00 Cor: RSR, No murmurs, No gallops Lungs: decreased at bases Abd: Soft, Normal bowel sounds, No organomegaly Ext:1+ edema Abnormal Lab Results 05/31/19 05/31/19 06:40 06:40 WBC 32.4 H* RBC 2.78 L Hgb 8.4 L Hct 23.7 L Plt Count 9 L* D Absolute Neuts (auto) 13.3 H Neutrophils % 41.0 L Neutrophils % (Manual) 26.6 L Monocytes % 45.8 H Monocytes % (Manual) 19 H Myelocytes % (Man) 4 H D Promyelocytes % (Man) 9 H D Blast Cells % (Manual) 10 H D Metamyelocytes 9 H D Sodium 134 L BUN 61.3 H Random Glucose 141 H Calcium 10.6 H Total Protein 6.3 L Albumin 3.1 L Home Medication List Medication Instructions Recorded Confirmed Type Pantoprazole Sodium [Protonix -] 40 mg PO DAILY 10/08/18 05/19/19 History Lamivudine [Lamivudine Hbv] 100 mg PO DAILY 11/01/18 05/19/19 History Acyclovir [Zovirax -] 400 mg PO BID 05/19/19 05/19/19 History Allopurinol 300 mg PO DAILY 05/19/19 05/19/19 History Amlodipine Besylate [Norvasc -] 5 mg PO DAILY 05/19/19 05/19/19 History Escitalopram Oxalate [Lexapro -] 5 mg PO DAILY 05/19/19 05/19/19 History Fluconazole [Diflucan -] 100 mg PO DAILY 05/19/19 05/19/19 History Folic Acid 1 mg PO DAILY 05/19/19 05/19/19 History L. Acidophilus/Pectin, [place] 1 each PO DAILY 05/19/19 05/19/19 History [Acidophilus Capsule] Quetiapine Fumarate [Seroquel -] 12.5 mg PO BID 05/19/19 05/19/19 History Sulfamethoxazole/Trimethoprim 1 tab PO DAILY 05/19/19 05/19/19 History [Bactrim Ds -] Active Medications Generic Name Dose Route Start Last Admin Trade Name Freq PRN Reason Stop Dose Admin Acetaminophen 650 mg 05/28/19 21:51 05/30/19 14:29 Tylenol - PO 650 mg Q6H PRN Administration FEVER Allopurinol 300 mg 05/25/19 10:00 05/31/19 09:11 Zyloprim - PO 300 mg DAILY [facility] Administration IV Flush 10 ml 05/24/19 20:47 Angelina-Cath Flush IVPUSH PRN PRN protocol, maintain patency Amino Acids 1,000 mls @ 83.333 mls/hr 05/24/19 23:42 05/31/19 11:45 Clinimix - IV Not Given Q12H [facility] Fat Emulsion-[place] Oil/Soybean Oil 250 mls @ 20.833 mls/hr 05/25/19 22:00 06/15 21:28 Clinolipid 20% Iv Fat Emulsion IV 20.833 mls/hr DAILY@2200 [facility] Administration Lactobacillus Acidophilus 1 tab 05/25/19 10:00 05/31/19 09:11 Bacid - PO 1 tab DAILY [facility] Administration Lamivudine 100 mg 05/25/19 10:00 05/31/19 09:12 Epivir Oral Solution - PO 100 mg DAILY [facility] Administration Multivitamins/Minerals 10 ml 05/25/19 10:00 05/30/19 12:41 Infuvite Adult - IV 05/31/19 23:58 10 ml DAILY [facility] Administration Pantoprazole Sodium 40 mg 05/25/19 10:00 05/31/19 09:11 Protonix Iv IVPUSH 40 mg DAILY [facility] Administration Phenylephrine HCl 1 spray 05/24/19 22:00 05/31/19 21:02 Rebel-Synephrine 0.5% Nasal [place] - NS 1 spray BID [facility] Administration Potassium Chloride 20 meq 05/25/19 10:00 05/31/19 09:13 Potassium Chloride Oral Liquid PO 20 meq DAILY [facility] Administration Valacyclovir HCl 500 mg 05/25/19 10:00 05/31/19 09:11 Valtrex - PO 500 mg DAILY [facility] Administration A/P Acute hypoxic respiratory failure ?>aspiration AML Sepsis Thrombocytopenia Anemia s/p platelet transfusion 3/4 discussed overall poor prognosis with daughter to continue ongoing discussions regarding hospice -- family meeting with daughter , tomorrow PM
[2019-05-31] MEDS: MULTIVIT INJ. ADULT COMBO WITH VIT K 1 COMBO 10 ML VIAL IV SCH (21:35)
[2019-05-31] MEDS: FAT EMULSION/OLIVE/SOY/PHOSPHO 250 ML IV SCH (21:59)
--- NOTE | 2019-06-01 08:28 | PN ---
Progress Note, Physician Chief Complaint: awake alert NAD - Current Medication List Current Medications: Active Medications Acetaminophen (Tylenol -) 650 mg PO Q6H PRN PRN Reason: FEVER Last Admin: 05/30/19 14:29 Dose: 650 mg Documented by: Allopurinol (Zyloprim -) 300 mg PO DAILY [facility] Last Admin: 05/31/19 09:11 Dose: 300 mg Documented by: IV Flush (Angelina-Cath Flush) 10 ml IVPUSH PRN PRN PRN Reason: protocol, maintain patency Fat Emulsion-[place] Oil/Soybean Oil (Clinolipid 20% Iv Fat Emulsion) 250 mls @ 20.833 mls/hr IV DAILY@2200 [facility] Last Admin: 05/31/19 21:59 Dose: 20.833 mls/hr Documented by: Lactobacillus Acidophilus (Bacid -) 1 tab PO DAILY [facility] Last Admin: 05/31/19 09:11 Dose: 1 tab Documented by: Lamivudine (Epivir Oral Solution -) 100 mg PO DAILY [facility] Last Admin: 05/31/19 09:12 Dose: 100 mg Documented by: Pantoprazole Sodium (Protonix Iv) 40 mg IVPUSH DAILY [facility] Last Admin: 05/31/19 09:11 Dose: 40 mg Documented by: Phenylephrine HCl (Rebel-Synephrine 0.5% Nasal [place] -) 1 spray NS BID [facility] Last Admin: 05/31/19 21:02 Dose: 1 spray Documented by: Potassium Chloride (Potassium Chloride Oral Liquid) 20 meq PO DAILY [facility] Last Admin: 05/31/19 09:13 Dose: 20 meq Documented by: Valacyclovir HCl (Valtrex -) 500 mg PO DAILY [facility] Last Admin: 05/31/19 09:11 Dose: 500 mg Documented by: - Objective Vital Signs: Vital Signs Temperature 98.1 F 06/01/19 06:00 Pulse Rate 77 06/01/19 06:00 Respiratory Rate 20 06/01/19 06:00 Blood Pressure 124/53 L 06/01/19 06:00 O2 Sat by Pulse Oximetry (%) 94 L 05/31/19 21:00 Constitutional: Yes: No Distress Eyes: Yes: Conjunctiva Clear HENT: Yes: Atraumatic Neck: Yes: Supple Cardiovascular: Yes: Regular Rate and Rhythm Respiratory: Yes: Diminished Gastrointestinal: Yes: Soft. No: Tenderness Genitourinary: No: Hematuria Musculoskeletal: No: Joint Stiffness, Joint Swelling Extremities: No: Cold, Cool Edema: No Integumentary: Yes: Bruising Neurological: Yes: Alert, Oriented ...Motor Strength: WNL Psychiatric: Yes: Alert, Oriented. No: Agitated Labs: CBC, BMP 05/31/19 06:40 05/31/19 06:40 INR, PTT INR 1.25 (0.83-1.09) H 05/19/19 05:45 Fibrinogen 259.0 mg/dL (238-498) 05/19/19 05:45 - ....Imaging Other: Report Reviewed Assessment/Plan Patient is a 73 year old lady with a significant pmh of CLL, CHF, HTN, HBV admitted with sepsis; h/o UTis renal stones, and cellulitis; h/o UTI ESBL, sepsis, CRF, CLL and acute leukemia severe anemia s/p PRBC sp PLT heme ONC f/u; Transfuse Monodonor PLT and PRBC prn - f/u labs; prognosis guarded; d/w heme onc dr Watkins - will see her today to decide about further tx (chemotx?) d.w pt and staff - prognosis guarded; called daughter will d/w heme and palliative care eval for further management
[2019-06-01] MEDS ORDERED: PT OWN MED DRAWER 7, Y5N ONE ×2 (08:47→21:20)
[2019-06-01] MEDS: PANTOPRAZOLE SODIUM 40 MG VIAL IVPUSH SCH (09:01)
[2019-06-01] MEDS: POTASSIUM CHLORIDE ORAL LIQUID 20 MEQ/15 ML PO SCH ×2 (09:01→21:35)
[2019-06-01] MEDS: lamiVUDine 10 MG/1 ML BULK BOTTLE PO SCH (09:01)
[2019-06-01] MEDS: valACYclovir HCL 500 MG TABLET (FP) PO SCH (09:02)
[2019-06-01] MEDS: ALLOPURINOL 300 MG TABLET (FP) PO SCH (09:02)
[2019-06-01] MEDS: PHENYLEPHRINE 0.5% NASAL SPRAY 15 ML BOTTLE NS SCH ×2 (09:02→21:37)
[2019-06-01] MEDS: LACTOBACILLUS ACIDOPHILUS 1 TABLET PO SCH (09:02)
[2019-06-01 10:33] LABS: BASO % 1.5 % (0-2.0); EOS % 1.2 % (0-4.5); HEMATOCRIT 22.3 % (32.4-45.2); HEMOGLOBIN 7.7 GM/dL (10.7-15.3); MCH 29.8 pg (25.7-33.7); MCHC 34.4 g/dl (32.0-36.0); MEAN CELL VOLUME 86.7 fl (80-96); MONO % 32.4 % (3.8-10.2); NEUT % 47.9 % (42.8-82.8); PLATELET COUNT 39 K/MM3 (134-434); RBC 2.58 M/mm3 (3.60-5.2); RDW 14.7 % (11.6-15.6); WHITE BLOOD COUNT 29.7 K/mm3 (4.0-10.0)
[2019-06-01 11:01] LABS: BLOOD UREA NITROGEN 60.5 mg/dL (7-18); CALCIUM 10.5 mg/dL (8.5-10.1); POTASSIUM 3.2 mmol/L (3.5-5.1)
[2019-06-01] MEDS: MULTIVIT INJ. ADULT COMBO WITH VIT K 1 COMBO 10 ML VIAL IV SCH (11:34)
[2019-06-01] MEDS: AMINO ACIDS 4.25%/D5W 1,000 ML IV SCH (11:35)
--- NOTE | 2019-06-01 12:15 | PN ---
Progress Note (short form) - Note Progress Note: Resting in NAD. No acute events overnight. Intake & Output 05/29/19 05/30/19 05/31/19 06/01/19 23:59 23:59 23:59 23:59 Intake Total 2702.8 1696.5 1653 664 Output Total 500 1000 500 Balance 2702.8 1196.5 653 164 Last Vital Signs Temp Pulse Resp BP Pulse Ox 98.1 F 79 20 112/48 L 95 06/01/19 10:00 06/01/19 10:00 06/01/19 10:00 06/01/19 10:00 06/01/19 09:00 Active Medications Acetaminophen (Tylenol -) 650 mg PO Q6H PRN PRN Reason: FEVER Last Admin: 05/30/19 14:29 Dose: 650 mg Documented by: Allopurinol (Zyloprim -) 300 mg PO DAILY [facility] Last Admin: 06/01/19 09:02 Dose: 300 mg Documented by: IV Flush (Angelina-Cath Flush) 10 ml IVPUSH PRN PRN PRN Reason: protocol, maintain patency Fat Emulsion-[place] Oil/Soybean Oil (Clinolipid 20% Iv Fat Emulsion) 250 mls @ 20.833 mls/hr IV DAILY@2200 [facility] Last Admin: 05/31/19 21:59 Dose: 20.833 mls/hr Documented by: Amino Acids (Clinimix -) 1,000 mls @ 83.33 mls/hr IV Q12H [facility] Last Admin: 06/01/19 11:35 Dose: 83.33 mls/hr Documented by: Lactobacillus Acidophilus (Bacid -) 1 tab PO DAILY [facility] Last Admin: 06/01/19 09:02 Dose: 1 tab Documented by: Lamivudine (Epivir Oral Solution -) 100 mg PO DAILY [facility] Last Admin: 06/01/19 09:01 Dose: 100 mg Documented by: Multivitamins/Minerals (Infuvite Adult -) 10 ml IV DAILY [facility] Last Admin: 06/01/19 11:34 Dose: 10 ml Documented by: Pantoprazole Sodium (Protonix Iv) 40 mg IVPUSH DAILY [facility] Last Admin: 06/01/19 09:01 Dose: 40 mg Documented by: Phenylephrine HCl (Rebel-Synephrine 0.5% Nasal [place] -) 1 spray NS BID [facility] Last Admin: 06/01/19 09:02 Dose: 1 spray Documented by: Potassium Chloride (Potassium Chloride Oral Liquid) 20 meq PO DAILY [facility] Last Admin: 06/01/19 09:01 Dose: 20 meq Documented by: Valacyclovir HCl (Valtrex -) 500 mg PO DAILY [facility] Last Admin: 06/01/19 09:02 Dose: 500 mg Documented by: Gen: NAD at rest Heart: RRR Lung: scattered rhonchi Abd: soft, nontender Ext: + edema Laboratory Results - last 24 hr 06/01/19 06/01/19 09:40 09:40 WBC 29.7 H RBC 2.58 L Hgb 7.7 L Hct 22.3 L MCV 86.7 MCH 29.8 MCHC 34.4 RDW 14.7 Plt Count 39 L D MPV 8.0 D Absolute Neuts (auto) 14.2 H Neutrophils % 47.9 Lymphocytes % 17.0 D Monocytes % 32.4 H Eosinophils % 1.2 Basophils % 1.5 D Nucleated RBC % 0 Sodium 134 L Potassium 3.2 L Chloride 105 Carbon Dioxide 18 L Anion Gap 11 BUN 60.5 H Creatinine 1.0 Est GFR (CKD-EPI)AfAm 64.73 Est GFR (CKD-EPI)NonAf 55.85 Random Glucose 198 H Calcium 10.5 H A/P s/p Acute Hypoxic Respiratory Failure Pneumonia likely Aspiration UTI Septic Shock resolving Acute on Chronic Renal Failure AML Thrombocytopenia/Anemia - completed antibiotics - monitor CBC - transfuse as needed - Aspiration precautions - DVT prophylaxis Dr Saucedo
[2019-06-01 12:32] LABS: ANISOCYTOSIS 0; MACROCYTOSIS 0; PLATELET ESTIMATE DECREASED
--- NOTE | 2019-06-01 18:25 | PN ---
Progress Note (short form) - Note Progress Note: PAtient seen and examined comfortable. ORiented in person, place HAs a nose bleed Last Vital Signs Temp Pulse Resp BP Pulse Ox 98.1 F 78 20 122/52 L 95 06/01/19 18:20 06/01/19 18:20 06/01/19 18:20 06/01/19 18:20 06/01/19 09:00 Cor: RSR, No murmurs, No gallops Lungs: decreased at bases Abd: Soft, Normal bowel sounds, No organomegaly Ext:1+ edema Abnormal Lab Results 06/01/19 06/01/19 09:40 09:40 WBC 29.7 H RBC 2.58 L Hgb 7.7 L Hct 22.3 L Plt Count 39 L D Absolute Neuts (auto) 14.2 H Neutrophils % (Manual) 40.4 L Monocytes % 32.4 H Monocytes % (Manual) 22 H Blast Cells % (Manual) 7 H D Metamyelocytes 6 H D Sodium 134 L Potassium 3.2 L Carbon Dioxide 18 L BUN 60.5 H Random Glucose 198 H Calcium 10.5 H Active Medications Generic Name Dose Route Start Last Admin Trade Name Freq PRN Reason Stop Dose Admin Acetaminophen 650 mg 05/28/19 21:51 05/30/19 14:29 Tylenol - PO 650 mg Q6H PRN Administration FEVER Allopurinol 300 mg 05/25/19 10:00 06/01/19 09:02 Zyloprim - PO 300 mg DAILY RYAN Administration IV Flush 10 ml 05/24/19 20:47 Angelina-Cath Flush IVPUSH PRN PRN protocol, maintain patency Fat Emulsion-[place] Oil/Soybean Oil 250 mls @ 20.833 mls/hr 05/25/19 22:00 05/31/19 21:59 Clinolipid 20% Iv Fat Emulsion IV 20.833 mls/hr DAILY@2200 RYAN Administration Amino Acids 1,000 mls @ 83.33 mls/hr 06/01/19 11:00 06/01/19 11:35 Clinimix - IV 83.33 mls/hr Q12H RYAN Administration Lactobacillus Acidophilus 1 tab 05/25/19 10:00 06/01/19 09:02 Bacid - PO 1 tab DAILY RYAN Administration Lamivudine 100 mg 05/25/19 10:00 06/01/19 09:01 Epivir Oral Solution - PO 100 mg DAILY RYAN Administration Multivitamins/Minerals 10 ml 06/01/19 11:00 06/01/19 11:34 Infuvite Adult - IV 10 ml DAILY RYAN Administration Pantoprazole Sodium 40 mg 05/25/19 10:00 06/01/19 09:01 Protonix Iv IVPUSH 40 mg DAILY RYAN Administration Phenylephrine HCl 1 spray 05/24/19 22:00 06/01/19 09:02 Rebel-Synephrine 0.5% Nasal [place] - NS 1 spray BID RYAN Administration Potassium Chloride 20 meq 06/01/19 22:00 Potassium Chloride Oral Liquid PO BID RYAN Valacyclovir HCl 500 mg 05/25/19 10:00 06/01/19 09:02 Valtrex - PO 500 mg DAILY RYAN Administration A/P Acute hypoxic respiratory failure ?aspiration AML Sepsis Thrombocytopenia Anemia s/p platelet transfusion Given advanced dementia, very poor functional status, fragility, and underlying AML/ cytopenias recommended hospice care at [place] Discussed with patients daughter Dayana in detail, palliative care nurse Millie Lynch and discussed with PMD
[2019-06-01] MEDS: FAT EMULSION/OLIVE/SOY/PHOSPHO 250 ML IV SCH (21:36)
[2019-06-02 06:48] LABS: BASO % 0.9 % (0-2.0); EOS % 1.6 % (0-4.5); HEMATOCRIT 22.3 % (32.4-45.2); HEMOGLOBIN 7.9 GM/dL (10.7-15.3); LYMPH % 11.9 % (8-40); MCH 30.6 pg (25.7-33.7); MCHC 35.5 g/dl (32.0-36.0); MEAN CELL VOLUME 86.2 fl (80-96); MEAN PLT VOLUME 7.8 fl (7.5-11.1); MONO % 38.4 % (3.8-10.2); NEUT % 47.2 % (42.8-82.8); RBC 2.59 M/mm3 (3.60-5.2); RDW 14.8 % (11.6-15.6); WHITE BLOOD COUNT 27.3 K/mm3 (4.0-10.0)
[2019-06-02 06:57] LABS: PLATELET COUNT 32 K/MM3 (134-434)
[2019-06-02 07:10] LABS: BLOOD UREA NITROGEN 59.7 mg/dL (7-18); CALCIUM 10.9 mg/dL (8.5-10.1); CREATININE 0.9 mg/dL (0.55-1.3); POTASSIUM 3.5 mmol/L (3.5-5.1)
[2019-06-02 09:55] LABS: ANISOCYTOSIS 1+; MACROCYTOSIS 0; OVALOCYTE 1+; PLATELET ESTIMATE DECREASED
[2019-06-02] MEDS ORDERED: PT OWN MED DRAWER 7, Y5N ONE ×2 (10:31→21:25)
[2019-06-02] MEDS: POTASSIUM CHLORIDE ORAL LIQUID 20 MEQ/15 ML PO SCH ×2 (10:36→21:25)
[2019-06-02] MEDS: ALLOPURINOL 300 MG TABLET (FP) PO SCH (10:36)
[2019-06-02] MEDS: LACTOBACILLUS ACIDOPHILUS 1 TABLET PO SCH (10:36)
[2019-06-02] MEDS: valACYclovir HCL 500 MG TABLET (FP) PO SCH (10:37)
[2019-06-02] MEDS: lamiVUDine 10 MG/1 ML BULK BOTTLE PO SCH (10:37)
[2019-06-02] MEDS: PANTOPRAZOLE SODIUM 40 MG VIAL IVPUSH SCH (10:45)
[2019-06-02] MEDS: AMINO ACIDS 4.25%/D5W 1,000 ML IV SCH ×2 (10:45)
[2019-06-02] MEDS: MULTIVIT INJ. ADULT COMBO WITH VIT K 1 COMBO 10 ML VIAL IV SCH (10:48)
[2019-06-02] MEDS: PHENYLEPHRINE 0.5% NASAL SPRAY 15 ML BOTTLE NS SCH ×2 (10:50→21:25)
--- NOTE | 2019-06-02 11:29 | PN ---
Progress Note, Physician Chief Complaint: awake alert Hg 7.9 PLT 34 no bleeding d/w daughter Dayana and meka Joseph and Palliative Care - per ONC chemotx could be detrimental, no further intervention recommended and advised consider [place] for comfort care; daughter met with meka Joseph and Palliative care and they agreed on DNR DNI and [facility] - daughter aware [facility] would not transfuse blood products - agreed for [facility]; d/w CM will transfuse 1 U PRBC here then DC to [facility] - Current Medication List Current Medications: Active Medications Acetaminophen (Tylenol -) 650 mg PO Q6H PRN PRN Reason: FEVER Last Admin: 05/30/19 14:29 Dose: 650 mg Documented by: Allopurinol (Zyloprim -) 300 mg PO DAILY [facility] Last Admin: 06/02/19 10:36 Dose: 300 mg Documented by: IV Flush (Angelina-Cath Flush) 10 ml IVPUSH PRN PRN PRN Reason: protocol, maintain patency Fat Emulsion-[place] Oil/Soybean Oil (Clinolipid 20% Iv Fat Emulsion) 250 mls @ 20.833 mls/hr IV DAILY@2200 [facility] Last Admin: 06/01/19 21:36 Dose: 20.833 mls/hr Documented by: Amino Acids (Clinimix -) 1,000 mls @ 83.33 mls/hr IV Q12H [facility] Last Admin: 06/02/19 10:45 Dose: 83.33 mls/hr Documented by: Lactobacillus Acidophilus (Bacid -) 1 tab PO DAILY [facility] Last Admin: 06/02/19 10:36 Dose: 1 tab Documented by: Lamivudine (Epivir Oral Solution -) 100 mg PO DAILY [facility] Last Admin: 06/02/19 10:37 Dose: 100 mg Documented by: Multivitamins/Minerals (Infuvite Adult -) 10 ml IV DAILY [facility] Last Admin: 06/02/19 10:48 Dose: 10 ml Documented by: Pantoprazole Sodium (Protonix Iv) 40 mg IVPUSH DAILY [facility] Last Admin: 06/02/19 10:45 Dose: 40 mg Documented by: Phenylephrine HCl (Rebel-Synephrine 0.5% Nasal [place] -) 1 spray NS BID [facility] Last Admin: 06/02/19 10:50 Dose: 1 spray Documented by: Potassium Chloride (Potassium Chloride Oral Liquid) 20 meq PO BID [facility] Last Admin: 06/02/19 10:36 Dose: 20 meq Documented by: Valacyclovir HCl (Valtrex -) 500 mg PO DAILY [facility] Last Admin: 06/02/19 10:37 Dose: 500 mg Documented by: - Objective Vital Signs: Vital Signs Temperature 98 F 06/02/19 06:00 Pulse Rate 75 06/02/19 06:00 Respiratory Rate 20 06/02/19 06:00 Blood Pressure 122/54 L 06/02/19 06:00 O2 Sat by Pulse Oximetry (%) 92 L 06/01/19 21:00 Constitutional: Yes: No Distress, Calm Eyes: Yes: Conjunctiva Clear HENT: Yes: Atraumatic Neck: Yes: Supple Cardiovascular: Yes: Regular Rate and Rhythm Respiratory: Yes: Diminished Gastrointestinal: Yes: Soft. No: Tenderness Musculoskeletal: No: Joint Stiffness, Joint Swelling Extremities: No: Cold, Cool, Cyanosis Edema: No Integumentary: Yes: Bruising Neurological: Yes: Alert ...Motor Strength: WNL Psychiatric: Yes: Alert. No: Agitated Labs: CBC, BMP 06/02/19 06:05 06/02/19 06:05 INR, PTT INR 1.25 (0.83-1.09) H 05/19/19 05:45 Fibrinogen 259.0 mg/dL (238-498) 05/19/19 05:45 - ....Imaging Other: Report Reviewed Assessment/Plan Patient is a 73 year old lady with a significant pmh of CLL, CHF, HTN, HBV admitted with sepsis; h/o UTis renal stones, and cellulitis; h/o UTI ESBL, sepsis, CRF, CLL and acute leukemia severe anemia s/p PRBC sp PLT heme ONC f/u; Transfuse Monodonor PLT and PRBC prn transfer to [facility]; DNR DNI
--- NOTE | 2019-06-02 12:22 | PN ---
Progress Note, Physician History of Present Illness: PULMONARY ALERT,NO DISTRESS,-SOB - Current Medication List Current Medications: Active Medications Acetaminophen (Tylenol -) 650 mg PO Q6H PRN PRN Reason: FEVER Last Admin: 05/30/19 14:29 Dose: 650 mg Documented by: Allopurinol (Zyloprim -) 300 mg PO DAILY [facility] Last Admin: 06/02/19 10:36 Dose: 300 mg Documented by: IV Flush (Angelina-Cath Flush) 10 ml IVPUSH PRN PRN PRN Reason: protocol, maintain patency Fat Emulsion-[place] Oil/Soybean Oil (Clinolipid 20% Iv Fat Emulsion) 250 mls @ 20.833 mls/hr IV DAILY@2200 [facility] Last Admin: 06/01/19 21:36 Dose: 20.833 mls/hr Documented by: Amino Acids (Clinimix -) 1,000 mls @ 83.33 mls/hr IV Q12H [facility] Last Admin: 06/02/19 10:45 Dose: 83.33 mls/hr Documented by: Lactobacillus Acidophilus (Bacid -) 1 tab PO DAILY [facility] Last Admin: 06/02/19 10:36 Dose: 1 tab Documented by: Lamivudine (Epivir Oral Solution -) 100 mg PO DAILY [facility] Last Admin: 06/02/19 10:37 Dose: 100 mg Documented by: Multivitamins/Minerals (Infuvite Adult -) 10 ml IV DAILY [facility] Last Admin: 06/02/19 10:48 Dose: 10 ml Documented by: Pantoprazole Sodium (Protonix Iv) 40 mg IVPUSH DAILY [facility] Last Admin: 06/02/19 10:45 Dose: 40 mg Documented by: Phenylephrine HCl (Rebel-Synephrine 0.5% Nasal [place] -) 1 spray NS BID [facility] Last Admin: 06/02/19 10:50 Dose: 1 spray Documented by: Potassium Chloride (Potassium Chloride Oral Liquid) 20 meq PO BID [facility] Last Admin: 06/02/19 10:36 Dose: 20 meq Documented by: Valacyclovir HCl (Valtrex -) 500 mg PO DAILY [facility] Last Admin: 06/02/19 10:37 Dose: 500 mg Documented by: - Objective Vital Signs: Vital Signs Temperature 98.6 F 06/02/19 10:00 Pulse Rate 76 06/02/19 10:00 Respiratory Rate 20 06/02/19 10:00 Blood Pressure 120/47 L 06/02/19 10:00 O2 Sat by Pulse Oximetry (%) 92 L 06/01/19 21:00 Constitutional: Yes: Calm, Thin Eyes: Yes: WNL HENT: Yes: WNL Neck: Yes: WNL Cardiovascular: Yes: Regular Rate and Rhythm, S1, S2 Respiratory: Yes: Rhonchi (FEW RHONCHI) Gastrointestinal: Yes: Normal Bowel Sounds, Soft Extremities: Yes: WNL Edema: Yes Labs: CBC, BMP 06/02/19 06:05 06/02/19 06:05 INR, PTT INR 1.25 (0.83-1.09) H 05/19/19 05:45 Fibrinogen 259.0 mg/dL (238-498) 05/19/19 05:45 Problem List - Problems (1) Acute respiratory failure Code(s): J96.00 - ACUTE RESPIRATORY FAILURE, UNSP W HYPOXIA OR HYPERCAPNIA (2) Anemia requiring transfusions Code(s): D64.9 - ANEMIA, UNSPECIFIED (3) Anemia Code(s): D64.9 - ANEMIA, UNSPECIFIED Qualifiers: Anemia type: unspecified type Qualified Code(s): D64.9 - Anemia, un specified (4) Thrombocytopenia Code(s): D69.6 - THROMBOCYTOPENIA, UNSPECIFIED (5) CHF (congestive heart failure) Code(s): I50.9 - HEART FAILURE, UNSPECIFIED (6) AML (acute myeloblastic leukemia) Code(s): C92.00 - ACUTE MYELOBLASTIC LEUKEMIA, NOT HAVING ACHIEVED REMISSION (7) Septic shock Code(s): A41.9 - SEPSIS, UNSPECIFIED ORGANISM; R65.21 - SEVERE SEPSIS WITH SEPTIC SHOCK Assessment/Plan A/P s/p Acute Hypoxic Respiratory Failure Pneumonia likely Aspiration UTI Septic Shock resolved Acute on Chronic Renal Failure AML Thrombocytopenia/Anemia - monitor CBC,PLT CT - transfuse as needed - replete lytes - aspiration precautions - DVT prophylaxis DR MONTOYA
--- NOTE | 2019-06-02 14:19 | PN ---
Progress Note, NURSE PRACTITIONER PER DIEM - Note Progress Note: Selected Entries 06/01/19 06/01/19 06/01/19 02:00 06:00 10:00 Temperature 98.2 F 98.1 F 98.1 F 06/01/19 06/01/19 06/01/19 14:00 18:20 22:00 Temperature 99 F 98.1 F 98.4 F 06/02/19 06/02/19 06:00 10:00 Temperature 98 F 98.6 F Laboratory Tests 06/01/19 06/02/19 09:40 06:05 WBC 29.7 H 27.3 H Plan is for [place].
[2019-06-02] MEDS: ACETAMINOPHEN 325 MG TABLET (FP) PO PRN (17:13)
[2019-06-02] MEDS: FAT EMULSION/OLIVE/SOY/PHOSPHO 250 ML IV SCH (21:25)
[2019-06-03] MEDS: AMINO ACIDS 4.25%/D5W 1,000 ML IV SCH ×4 (06:10→22:42)
[2019-06-03 07:05] LABS: BASO % 0.4 % (0-2.0); EOS % 0.8 % (0-4.5); HEMATOCRIT 27.9 % (32.4-45.2); HEMOGLOBIN 9.9 GM/dL (10.7-15.3); LYMPH % 10.1 % (8-40); MCH 30.3 pg (25.7-33.7); MCHC 35.5 g/dl (32.0-36.0); MEAN CELL VOLUME 85.2 fl (80-96); MEAN PLT VOLUME 8.4 fl (7.5-11.1); MONO % 40.5 % (3.8-10.2); NEUT % 48.2 % (42.8-82.8); RBC 3.27 M/mm3 (3.60-5.2); RDW 14.3 % (11.6-15.6)
[2019-06-03 07:37] LABS: WHITE BLOOD COUNT 36.3 K/mm3 (4.0-10.0)
[2019-06-03 07:38] LABS: PLATELET COUNT 27 K/MM3 (134-434)
[2019-06-03] MEDS ORDERED: PT OWN MED DRAWER 7, Y5N ONE ×3 (08:29→20:58)
[2019-06-03] MEDS: LACTOBACILLUS ACIDOPHILUS 1 TABLET PO SCH (09:00)
[2019-06-03] MEDS: valACYclovir HCL 500 MG TABLET (FP) PO SCH (09:00)
[2019-06-03] MEDS: ALLOPURINOL 300 MG TABLET (FP) PO SCH (09:00)
[2019-06-03] MEDS: PANTOPRAZOLE SODIUM 40 MG VIAL IVPUSH SCH (09:00)
[2019-06-03] MEDS: POTASSIUM CHLORIDE ORAL LIQUID 20 MEQ/15 ML PO SCH ×2 (09:00→21:02)
[2019-06-03] MEDS: ACETAMINOPHEN 325 MG TABLET (FP) PO PRN (09:00)
[2019-06-03] MEDS: PHENYLEPHRINE 0.5% NASAL SPRAY 15 ML BOTTLE NS SCH ×2 (09:01→21:02)
[2019-06-03] MEDS: lamiVUDine 10 MG/1 ML BULK BOTTLE PO SCH (09:01)
[2019-06-03 10:11] LABS: ANISOCYTOSIS 0; MACROCYTOSIS 0; PLATELET ESTIMATE DECREASED
--- NOTE | 2019-06-03 10:16 | PN ---
Progress Note, Physician Chief Complaint: awake alert afebrile WBC > 30k; PLT 28 bruises / scattered on skin no nose bleed - Current Medication List Current Medications: Active Medications Acetaminophen (Tylenol -) 650 mg PO Q6H PRN PRN Reason: FEVER Last Admin: 06/03/19 09:00 Dose: 650 mg Documented by: Allopurinol (Zyloprim -) 300 mg PO DAILY [facility] Last Admin: 06/03/19 09:00 Dose: 300 mg Documented by: IV Flush (Angelina-Cath Flush) 10 ml IVPUSH PRN PRN PRN Reason: protocol, maintain patency Fat Emulsion-[place] Oil/Soybean Oil (Clinolipid 20% Iv Fat Emulsion) 250 mls @ 20.833 mls/hr IV DAILY@2200 [facility] Last Admin: 06/02/19 21:25 Dose: 20.833 mls/hr Documented by: Amino Acids (Clinimix -) 1,000 mls @ 83.33 mls/hr IV Q12H [facility] Last Admin: 06/03/19 06:10 Dose: 83.33 mls/hr Documented by: Lactobacillus Acidophilus (Bacid -) 1 tab PO DAILY [facility] Last Admin: 06/03/19 09:00 Dose: 1 tab Documented by: Lamivudine (Epivir Oral Solution -) 100 mg PO DAILY [facility] Last Admin: 06/03/19 09:01 Dose: 100 mg Documented by: Multivitamins/Minerals (Infuvite Adult -) 10 ml IV DAILY [facility] Last Admin: 06/02/19 10:48 Dose: 10 ml Documented by: Pantoprazole Sodium (Protonix Iv) 40 mg IVPUSH DAILY [facility] Last Admin: 06/03/19 09:00 Dose: 40 mg Documented by: Phenylephrine HCl (Rebel-Synephrine 0.5% Nasal [place] -) 1 spray NS BID [facility] Last Admin: 06/03/19 09:01 Dose: 1 spray Documented by: Potassium Chloride (Potassium Chloride Oral Liquid) 20 meq PO BID [facility] Last Admin: 06/03/19 09:00 Dose: 20 meq Documented by: Valacyclovir HCl (Valtrex -) 500 mg PO DAILY [facility] Last Admin: 06/03/19 09:00 Dose: 500 mg Documented by: - Objective Vital Signs: Vital Signs Temperature 97.6 F 06/03/19 10:00 Pulse Rate 79 06/03/19 10:00 Respiratory Rate 06/03/19 10:00 Blood Pressure 119/61 06/03/19 10:00 O2 Sat by Pulse Oximetry (%) 95 06/03/19 09:00 Constitutional: Yes: No Distress Eyes: Yes: Conjunctiva Clear HENT: Yes: Atraumatic Neck: Yes: Supple Cardiovascular: Yes: Regular Rate and Rhythm Respiratory: Yes: CTA Bilaterally Gastrointestinal: Yes: Soft. No: Tenderness Genitourinary: No: Hematuria Musculoskeletal: No: Joint Stiffness, Joint Swelling Extremities: No: Cold, Cool Edema: No Integumentary: Yes: Bruising. No: Rash, Venous Stasis Changes Neurological: Yes: Alert ...Motor Strength: WNL Psychiatric: Yes: Alert. No: Agitated Labs: CBC, BMP 06/03/19 05:50 06/02/19 06:05 INR, PTT INR 1.25 (0.83-1.09) H 05/19/19 05:45 Fibrinogen 259.0 mg/dL (238-498) 05/19/19 05:45 - ....Imaging Other: Report Reviewed Assessment/Plan Patient is a 73 year old lady with a significant pmh of CLL, CHF, HTN, HBV admitted with sepsis; h/o UTis renal stones, and cellulitis; h/o UTI ESBL, sepsis, CRF, CLL and acute leukemia severe anemia s/p PRBC sp PLT heme ONC f/u; Transfuse Monodonor PLT and PRBC prn d/w pt and daughter Dayana who discussed with heme onc dr Joseph and palliative care, also with and [place]; they agrred with DNR DNI [place] comfort care - awaiting transfer to [place]; DNR DNI
[2019-06-03 10:22] LABS: OVALOCYTE 1+
--- NOTE | 2019-06-03 10:48 | PN ---
Progress Note (short form) - Note Progress Note: PULMONARY Offers no complaints VSS/Afebrile Heent: anicteric Cor: RSR, No murmurs, No gallops Lungs: decreased at bases Abd: Soft, Normal bowel sounds, No organomegaly Ext:1+ edema Active Medications noted A/P Acute hypoxic respiratory failure ?aspiration pneumonia AML Sepsis Thrombocytopenia Anemia s/p platelet transfusion - monitor CBC,PLT CT - transfuse as needed - replete lytes - aspiration precautions - DVT prophylaxis Jorge PINTO MD
--- NOTE | 2019-06-03 11:52 | DS ---
Physical Examination Vital Signs: Vital Signs Temperature 97.6 F 06/03/19 10:00 Pulse Rate 79 06/03/19 10:00 Respiratory Rate 20 06/03/19 10:00 Blood Pressure 119/61 06/03/19 10:00 O2 Sat by Pulse Oximetry (%) 95 06/03/19 09:00 Findings/Remarks: in bed NAD afebrile CBC noted pt and daughter agreed with [facility] for further management and comfort care; DNR DNI see H&P today Labs: CBC, BMP 06/03/19 05:50 06/02/19 06:05 Discharge Summary Problems reviewed: Yes Reason For Visit: TRANSFUSION-DEPENDENT ANEMIA, FEVER Current Active Problems EBER (acute kidney injury) (Acute) AML (acute myeloblastic leukemia) (Acute) Acute respiratory failure (Acute) Anemia requiring transfusions (Acute) Fever (Acute) Hypernatremia (Acute) Septic shock (Acute) UTI (urinary tract infection) (Acute) Procedures: Principal: 73YOF admitted with sepsis and ARF; acute leukemia, h/o CLL with recent blastic transformation, h/o severe anemia and low PLT in the past; seen by ONC, s/p po chemotx; s/p multiple blood product transfusions; also h/o sepsis, UTI and cellulitis in the past, renal stones (refused intervention) Other Procedures: IV ATB, sen by ID and meka onc and renal; improved with treatment then decompensated again, developed PNA; was intubated; prolonged ICU course but was able to be extubated; swallow eval - pt had some aspiration but her swallow improved; on purree diet and thickened fluids. Hospital Course: generally weak; required again blood products, PRBC and PLT; seen by heme onc who felt that chemotherapy is not indicated given pt's general status and prognosis and would have more risks rhett benefits at this point; pt is currently stable with above; discussions with pt's daughter, heme onc and palliative care - daughter agreed with DNR DNI comfort care and [facility] placement Condition: Stable - Instructions Diet, Activity, Other Instructions: transfer to [facility] for further management and comfort care Referrals: Sabi Jordan [Primary Care Provider] - Disposition: TRANSFER ACUTE CARE/OTHER HOSP - Home Medications Comprehensive Discharge Medication List: Ambulatory Orders Lamivudine [Lamivudine Hbv] 100 mg PO DAILY 11/01/18 Acetaminophen [Tylenol .Regular Strength -] 650 mg PO Q6H PRN tablet 06/03/19 Allopurinol [Zyloprim -] 300 mg PO DAILY tablet 06/03/19 Amino Acids 4.25%/D5w [Clinimix 4.25%/D5w Solution] 1,000 ml IV Q12H infus.bag 06/03/19 Fat Emulsion/[place]/Soy/Phospho [Clinolipid 20% IV Fat Emulsion] 1,000 ml IV DAILY@2200 infus.bag 06/03/19 Lactobacillus Acidophilus [Bacid -] 1 tab PO DAILY tab 06/03/19 Pantoprazole Sodium [Protonix IV] 40 mg IVPUSH DAILY vial 06/03/19 Phenylephrine 0.5% Nasal [place] [Rebel-Synephrine 0.5% Nasal [place] -] 1 spray NS BID bottle 06/03/19 Angelina-Cath Flush [Angelina-Cath Flush -] 10 ml IVPUSH PRN PRN ml 06/03/19 Potassium Chloride [Potassium Chloride Oral Liquid] 20 meq PO BID cup 06/03/19 Valacyclovir HCl [Valtrex -] 500 mg PO DAILY tablet 06/03/19
--- NOTE | 2019-06-03 15:59 | PN ---
Progress Note, Physician History of Present Illness: No new events - Current Medication List Current Medications: Active Medications Acetaminophen (Tylenol -) 650 mg PO Q6H PRN PRN Reason: FEVER Last Admin: 06/03/19 09:00 Dose: 650 mg Documented by: Allopurinol (Zyloprim -) 300 mg PO DAILY [facility] Last Admin: 06/03/19 09:00 Dose: 300 mg Documented by: IV Flush (Angelina-Cath Flush) 10 ml IVPUSH PRN PRN PRN Reason: protocol, maintain patency Fat Emulsion-[place] Oil/Soybean Oil (Clinolipid 20% Iv Fat Emulsion) 250 mls @ 20.833 mls/hr IV DAILY@2200 [facility] Last Admin: 06/02/19 21:25 Dose: 20.833 mls/hr Documented by: Amino Acids (Clinimix -) 1,000 mls @ 83.33 mls/hr IV Q12H [facility] Last Admin: 06/03/19 11:00 Dose: Not Given Documented by: Lactobacillus Acidophilus (Bacid -) 1 tab PO DAILY [facility] Last Admin: 06/03/19 09:00 Dose: 1 tab Documented by: Lamivudine (Epivir Oral Solution -) 100 mg PO DAILY [facility] Last Admin: 06/03/19 09:01 Dose: 100 mg Documented by: Multivitamins/Minerals (Infuvite Adult -) 10 ml IV DAILY [facility] Last Admin: 06/02/19 10:48 Dose: 10 ml Documented by: Pantoprazole Sodium (Protonix Iv) 40 mg IVPUSH DAILY [facility] Last Admin: 06/03/19 09:00 Dose: 40 mg Documented by: Phenylephrine HCl (Rebel-Synephrine 0.5% Nasal [place] -) 1 spray NS BID [facility] Last Admin: 06/03/19 09:01 Dose: 1 spray Documented by: Potassium Chloride (Potassium Chloride Oral Liquid) 20 meq PO BID [facility] Last Admin: 06/03/19 09:00 Dose: 20 meq Documented by: Valacyclovir HCl (Valtrex -) 500 mg PO DAILY [facility] Last Admin: 06/03/19 09:00 Dose: 500 mg Documented by: - Objective Vital Signs: Vital Signs Temperature 99.5 F 06/03/19 14:00 Pulse Rate 86 06/03/19 14:00 Respiratory Rate 20 06/03/19 14:00 Blood Pressure 130/54 L 06/03/19 14:00 O2 Sat by Pulse Oximetry (%) 95 06/03/19 14:49 Constitutional: Yes: No Distress, Calm (Sleeping comfortably) Cardiovascular: Yes: Regular Rate and Rhythm Respiratory: Yes: Regular Edema: No Labs: CBC, BMP 06/03/19 05:50 06/02/19 06:05 INR, PTT INR 1.25 (0.83-1.09) H 05/19/19 05:45 Fibrinogen 259.0 mg/dL (238-498) 05/19/19 05:45 Assessment/Plan 73F with CLL, MDS/AML admitted with coag neg staph bacteremia and GNR UTI. Hospital course c/b AMS and acute hypoxic respiratory failure, possibly 2/2 a spiration PNA. Now extubated. Given advanced dementia, very poor functional status, fragility, and AML, plan is for [place]. C/w PRN PRBC and MDP transfusions.
[2019-06-03] MEDS: MULTIVIT INJ. ADULT COMBO WITH VIT K 1 COMBO 10 ML VIAL IV SCH (20:13)
[2019-06-03] MEDS: FAT EMULSION/OLIVE/SOY/PHOSPHO 250 ML IV SCH (21:01)
[2019-06-03] MEDS: ACETAMINOPHEN 1000 MG/100 ML VIAL (NON FORMULARY) IVPB PRN (23:36)
--- NOTE | 2019-06-04 07:44 | PN ---
Progress Note, Physician - Current Medication List Current Medications: Active Medications Acetaminophen (Ofirmev Injection -) 1,000 mg IVPB Q8H PRN PRN Reason: FEVER Last Admin: 06/03/19 23:36 Dose: 1,000 mg Documented by: Allopurinol (Zyloprim -) 300 mg PO DAILY [facility] Last Admin: 06/03/19 09:00 Dose: 300 mg Documented by: IV Flush (Angelina-Cath Flush) 10 ml IVPUSH PRN PRN PRN Reason: protocol, maintain patency Fat Emulsion-[place] Oil/Soybean Oil (Clinolipid 20% Iv Fat Emulsion) 250 mls @ 20.833 mls/hr IV DAILY@2200 [facility] Last Admin: 06/03/19 21:01 Dose: 20.833 mls/hr Documented by: Amino Acids (Clinimix -) 1,000 mls @ 83.33 mls/hr IV Q12H [facility] Last Admin: 06/03/19 22:42 Dose: Not Given Documented by: Lactobacillus Acidophilus (Bacid -) 1 tab PO DAILY [facility] Last Admin: 06/03/19 09:00 Dose: 1 tab Documented by: Lamivudine (Epivir Oral Solution -) 100 mg PO DAILY [facility] Last Admin: 06/03/19 09:01 Dose: 100 mg Documented by: Multivitamins/Minerals (Infuvite Adult -) 10 ml IV DAILY [facility] Last Admin: 06/03/19 20:13 Dose: 10 ml Documented by: Pantoprazole Sodium (Protonix Iv) 40 mg IVPUSH DAILY [facility] Last Admin: 06/03/19 09:00 Dose: 40 mg Documented by: Phenylephrine HCl (Rebel-Synephrine 0.5% Nasal [place] -) 1 spray NS BID [facility] Last Admin: 06/03/19 21:02 Dose: 1 spray Documented by: Potassium Chloride (Potassium Chloride Oral Liquid) 20 meq PO BID [facility] Last Admin: 06/03/19 21:02 Dose: 20 meq Documented by: Valacyclovir HCl (Valtrex -) 500 mg PO DAILY [facility] Last Admin: 06/03/19 09:00 Dose: 500 mg Documented by: - Objective Vital Signs: Vital Signs Temperature 98.9 F 06/04/19 05:00 Pulse Rate 112 H 06/04/19 05:00 Respiratory Rate 18 06/04/19 05:00 Blood Pressure 139/72 06/04/19 05:00 O2 Sat by Pulse Oximetry (%) 95 06/03/19 22:00 Labs: CBC, BMP 06/03/19 05:50 06/02/19 06:05 INR, PTT INR 1.25 (0.83-1.09) H 05/19/19 05:45 Fibrinogen 259.0 mg/dL (238-498) 05/19/19 05:45
--- NOTE | 2019-06-04 07:46 | PN ---
Progress Note, Physician Chief Complaint: awake alert NAD had fever last night - recalled ID - Current Medication List Current Medications: Active Medications Acetaminophen (Ofirmev Injection -) 1,000 mg IVPB Q8H PRN PRN Reason: FEVER Last Admin: 06/03/19 23:36 Dose: 1,000 mg Documented by: Allopurinol (Zyloprim -) 300 mg PO DAILY [facility] Last Admin: 06/03/19 09:00 Dose: 300 mg Documented by: IV Flush (Angelina-Cath Flush) 10 ml IVPUSH PRN PRN PRN Reason: protocol, maintain patency Fat Emulsion-[place] Oil/Soybean Oil (Clinolipid 20% Iv Fat Emulsion) 250 mls @ 20.833 mls/hr IV DAILY@2200 [facility] Last Admin: 06/03/19 21:01 Dose: 20.833 mls/hr Documented by: Amino Acids (Clinimix -) 1,000 mls @ 83.33 mls/hr IV Q12H [facility] Last Admin: 06/03/19 22:42 Dose: Not Given Documented by: Lactobacillus Acidophilus (Bacid -) 1 tab PO DAILY [facility] Last Admin: 06/03/19 09:00 Dose: 1 tab Documented by: Lamivudine (Epivir Oral Solution -) 100 mg PO DAILY [facility] Last Admin: 06/03/19 09:01 Dose: 100 mg Documented by: Multivitamins/Minerals (Infuvite Adult -) 10 ml IV DAILY [facility] Last Admin: 06/03/19 20:13 Dose: 10 ml Documented by: Pantoprazole Sodium (Protonix Iv) 40 mg IVPUSH DAILY [facility] Last Admin: 06/03/19 09:00 Dose: 40 mg Documented by: Phenylephrine HCl (Rebel-Synephrine 0.5% Nasal [place] -) 1 spray NS BID [facility] Last Admin: 06/03/19 21:02 Dose: 1 spray Documented by: Potassium Chloride (Potassium Chloride Oral Liquid) 20 meq PO BID [facility] Last Admin: 06/03/19 21:02 Dose: 20 meq Documented by: Valacyclovir HCl (Valtrex -) 500 mg PO DAILY [facility] Last Admin: 06/03/19 09:00 Dose: 500 mg Documented by: - Objective Vital Signs: Vital Signs Temperature 98.9 F 06/04/19 05:00 Pulse Rate 112 H 06/04/19 05:00 Respiratory Rate 18 06/04/19 05:00 Blood Pressure 139/72 06/04/19 05:00 O2 Sat by Pulse Oximetry (%) 95 06/03/19 22:00 Constitutional: Yes: No Distress, Calm Eyes: Yes: Conjunctiva Clear HENT: Yes: Atraumatic Neck: Yes: Supple Cardiovascular: Yes: Regular Rate and Rhythm Respiratory: Yes: CTA Bilaterally Gastrointestinal: Yes: Soft. No: Tenderness Genitourinary: No: Hematuria Musculoskeletal: No: Joint Stiffness, Joint Swelling Extremities: No: Cold, Cool Edema: No Integumentary: Yes: Bruising Neurological: Yes: Alert ...Motor Strength: WNL Psychiatric: Yes: Alert. No: Agitated Labs: CBC, BMP 06/03/19 05:50 06/02/19 06:05 INR, PTT INR 1.25 (0.83-1.09) H 05/19/19 05:45 Fibrinogen 259.0 mg/dL (238-498) 05/19/19 05:45 - ....Imaging Other: Report Reviewed Assessment/Plan Patient is a 73 year old lady with a significant pmh of CLL, CHF, HTN, HBV admitted with sepsis; h/o UTis renal stones, and cellulitis; h/o UTI ESBL, sepsis, CRF, CLL and acute leukemia severe anemia s/p PRBC sp PLT heme ONC f/u; Transfuse Monodonor PLT and PRBC prn d/w pt and daughter Dayana - fever w/u. ATB per ID; [place] still the plan
[2019-06-04 08:15] LABS: EPI CELLS 2.4 /HPF (0-5/HPF); HYALINE CASTS 15 /lpf (0-8); URINE APPEARANCE CLOUDY; URINE BACTERIA 4428.9 /hpf (NEGATIVE); URINE BILIRUBIN NEGATIVE (NEGATIVE); URINE COLOR YELLOW; URINE GLUCOSE (UA) NEGATIVE (NEGATIVE); URINE KETONE NEGATIVE (NEGATIVE); URINE LEUK ESTERASE 3+ (NEGATIVE); URINE NITRITE POSITIVE (NEGATIVE); URINE PROTEIN TRACE (NEGATIVE); URINE RBC 32 /hpf (0-4); URINE UROBILINOGEN 0.2 mg/dL (0.2-1.0); URINE WBC 533 /hpf (0-5)
[2019-06-04] MEDS: ACETAMINOPHEN 1000 MG/100 ML VIAL (NON FORMULARY) IVPB PRN ×2 (08:49→16:03)
[2019-06-04] MEDS ORDERED: PT OWN MED DRAWER 7, Y5N ONE ×3 (08:58→19:43)
[2019-06-04 09:06] LABS: EOS % 0.7 % (0-4.5); HEMATOCRIT 27.8 % (32.4-45.2); HEMOGLOBIN 9.6 GM/dL (10.7-15.3); MCH 29.9 pg (25.7-33.7); MCHC 34.5 g/dl (32.0-36.0); MEAN CELL VOLUME 86.7 fl (80-96); MEAN PLT VOLUME 8.9 fl (7.5-11.1); MONO % 38.8 % (3.8-10.2); NEUT % 51.5 % (42.8-82.8); RDW 14.6 % (11.6-15.6)
[2019-06-04 09:19] LABS: PLATELET COUNT 59 K/MM3 (134-434); WHITE BLOOD COUNT 43.1 K/mm3 (4.0-10.0)
[2019-06-04 09:31] LABS: ALBUMIN 3.2 g/dl (3.4-5.0); BILIRUBIN,TOTAL 0.5 mg/dL (0.2-1); BLOOD UREA NITROGEN 52.2 mg/dL (7-18); CALCIUM 10.5 mg/dL (8.5-10.1); CREATININE 1.2 mg/dL (0.55-1.3); POTASSIUM 3.6 mmol/L (3.5-5.1); TOT PROT 6.6 g/dl (6.4-8.2)
[2019-06-04] MEDS: LACTOBACILLUS ACIDOPHILUS 1 TABLET PO SCH (10:31)
[2019-06-04] MEDS: lamiVUDine 10 MG/1 ML BULK BOTTLE PO SCH (10:31)
[2019-06-04] MEDS: POTASSIUM CHLORIDE ORAL LIQUID 20 MEQ/15 ML PO SCH ×2 (10:32→21:17)
[2019-06-04] MEDS: valACYclovir HCL 500 MG TABLET (FP) PO SCH (10:32)
[2019-06-04] MEDS: ALLOPURINOL 300 MG TABLET (FP) PO SCH (10:33)
[2019-06-04] MEDS: PHENYLEPHRINE 0.5% NASAL SPRAY 15 ML BOTTLE NS SCH ×2 (10:34→21:17)
[2019-06-04] MEDS: PANTOPRAZOLE SODIUM 40 MG VIAL IVPUSH SCH (10:36)
[2019-06-04 11:07] LABS: ANISOCYTOSIS 1+; MACROCYTOSIS 0; OVALOCYTE 1+; PLATELET ESTIMATE DECREASED
--- NOTE | 2019-06-04 11:42 | PN ---
Progress Note (short form) - Note Progress Note: histroy of CLL, MDS/AML- recent resp failure- treated with dapto and ertapenem - off antibiotics since 05/22 awake follow commands asked to see for new fever to 101.6 last night blood cultures sent ua and urine culture sent cxray done no diarrhea Vital Signs Period Temp Pulse Resp BP Sys/Borjas Pulse Ox Last 24 Hr 98.7 F-101.6 F 86-115 18-22 130-152/54-72 94-95 no thrush port site no erythema, no tenderness cor-rrr lngs decreased bs at bases abd soft, nt no skin breakdown ext no edema CBC, BMP 06/04/19 08:35 06/04/19 08:35 Microbiology 05/19/19 10:30 Blood - Peripheral Venous Blood Culture - Final NO GROWTH AFTER 5 DAYS INCUBATION 05/19/19 10:35 Blood - Peripheral Venous Blood Culture - Final NO GROWTH AFTER 5 DAYS INCUBATION 05/19/19 09:00 Sputum - Endotrachea Suction/Ventilator Gram Stain - Final 05/19/19 09:00 Sputum - Endotrachea Suction/Ventilator Sputum Culture - Final NORMAL RESPIRATORY KANE 05/15/19 15:00 Blood - Peripheral Venous Blood Culture - Final NO GROWTH AFTER 5 DAYS INCUBATION 05/15/19 15:00 Blood - Peripheral Venous Blood Culture - Final NO GROWTH AFTER 5 DAYS INCUBATION 05/19/19 13:30 Urine - Urine Henley Urine Culture - Final NO GROWTH OBTAINED 05/16/19 16:50 Sputum - Endotrachea Suction/Ventilator Gram Stain - Final 05/16/19 16:50 Sputum - Endotrachea Suction/Ventilator Sputum Culture - Final NORMAL RESPIRATORY KANE 05/13/19 15:00 Blood - Peripheral Venous Blood Culture - Final NO GROWTH AFTER 5 DAYS INCUBATION 05/13/19 12:50 Blood - Peripheral Venous Blood Culture - Final NO GROWTH AFTER 5 DAYS INCUBATION 05/15/19 18:30 Urine - Urine Henley Urine Culture - Final NO GROWTH OBTAINED 05/13/19 12:56 Urine - Urine - Catheterized Urine Culture - Final NO GROWTH OBTAINED 05/09/19 12:44 Blood - Peripheral Venous Blood Culture - Final NO GROWTH AFTER 5 DAYS INCUBATION 05/09/19 12:58 Blood - Peripheral Venous Blood Culture - Final NO GROWTH AFTER 5 DAYS INCUBATION 05/10/19 00:35 Urine - Urine - Catheterized Urine Culture - Final NO GROWTH OBTAINED 05/05/19 11:25 Blood - Peripheral Venous Blood Culture - Final NO GROWTH AFTER 5 DAYS INCUBATION 05/05/19 11:38 Blood - Peripheral Venous Blood Culture - Final NO GROWTH AFTER 5 DAYS INCUBATION 05/03/19 23:20 Blood - Peripheral Venous Blood Culture - Final Staphylococcus Auricularis Staphylococcus Epidermidis 05/03/19 23:20 Blood - Peripheral Venous Blood Culture - Final Staphylococcus Coagulase Neg 05/06/19 Unknown Stool Clostridioides difficile Antigen - Final 05/06/19 Unknown Stool Clostridioides difficile Toxin Assay - Final 05/04/19 00:05 Urine - Urine Clean Catch Urine Culture - Final Citrobacter Freundii Enterococcus Faecalis 05/03/19 23:46 Throat Throat Culture - Final NO BETA HEMOLYTIC STREPTOCOCCI ISOLATED ANC 22k cxray improved from last film a/p fevers- new, not neutropenic ?UTI cultures pending daptomycin one dose pending cultures (has port) zosyn influenza screen AML/CLL-plan for calvary vanco mycin allergy overall prognosis is poor d/w dr herrera
--- NOTE | 2019-06-04 11:58 | PN ---
Progress Note (short form) - Note Progress Note: PULMONARY Tmax 101.6 wbc 43k/plt59k Heent: anicteric Cor: RSR, No murmurs, No gallops Lungs: decreased at bases Abd: Soft, Normal bowel sounds, No organomegaly Ext:1+ edema Active Medications noted cxr appears improved/radiology is recommending repeat ct chest Acute hypoxic respiratory failure AML Sepsis s/p treatment Thrombocytopenia Anemia s/p platelet transfusion - monitor CBC,PLT CT - transfuse as needed - replete lytes - aspiration precautions - DVT prophylaxis - cultures drawn due to new fever - ID note reviewed - consider repeat CT chest Jorge PINTO MD
[2019-06-04] MEDS: AMINO ACIDS 4.25%/D5W 1,000 ML IV SCH ×3 (13:00→22:57)
[2019-06-04] MEDS ORDERED: DAPTOMYCIN 300 MG in SODIUM CHLORIDE 50 ML IVPB ONE (13:00)
[2019-06-04] MEDS ORDERED: MEROPENEM 1 GM VIAL (RESTRICTED TO ID) IVPB ONE (13:01)
[2019-06-04] MEDS ORDERED: DEXTROSE 5%-WATER 100 ML IVPB ONE (13:01)
[2019-06-04] MEDS: MEROPENEM 1 GM in DEXTROSE 5%-WATER 100 ML IVPB SCH (13:02)
[2019-06-04] MEDS: MULTIVIT INJ. ADULT COMBO WITH VIT K 1 COMBO 10 ML VIAL IV SCH (20:06)
[2019-06-04] MEDS: FAT EMULSION/OLIVE/SOY/PHOSPHO 250 ML IV SCH (21:17)
[2019-06-05] MEDS ORDERED: MEROPENEM 1 GM VIAL (RESTRICTED TO ID) IVPB ONE ×2 (01:02→12:51)
[2019-06-05] MEDS ORDERED: DEXTROSE 5%-WATER 100 ML IVPB ONE ×2 (01:03→12:51)
[2019-06-05] MEDS: MEROPENEM 1 GM in DEXTROSE 5%-WATER 100 ML IVPB SCH ×2 (01:43→12:58)
[2019-06-05] MEDS: AMINO ACIDS 4.25%/D5W 1,000 ML IV SCH ×3 (09:48→22:33)
[2019-06-05] MEDS: PANTOPRAZOLE SODIUM 40 MG VIAL IVPUSH SCH (09:52)
[2019-06-05] MEDS: PHENYLEPHRINE 0.5% NASAL SPRAY 15 ML BOTTLE NS SCH ×2 (09:53→22:36)
[2019-06-05] MEDS: LACTOBACILLUS ACIDOPHILUS 1 TABLET PO SCH (09:56)
[2019-06-05] MEDS: POTASSIUM CHLORIDE ORAL LIQUID 20 MEQ/15 ML PO SCH ×2 (09:56→22:35)
[2019-06-05] MEDS: valACYclovir HCL 500 MG TABLET (FP) PO SCH (09:56)
[2019-06-05] MEDS: ALLOPURINOL 300 MG TABLET (FP) PO SCH (09:56)
[2019-06-05] MEDS: lamiVUDine 10 MG/1 ML BULK BOTTLE PO SCH (09:59)
[2019-06-05] MEDS: MULTIVIT INJ. ADULT COMBO WITH VIT K 1 COMBO 10 ML VIAL IV SCH (09:59)
--- NOTE | 2019-06-05 10:38 | PN ---
Progress Note, Physician Chief Complaint: awake alert afebrile today; ate OK; no pain no bleed; - Current Medication List Current Medications: Active Medications Acetaminophen (Ofirmev Injection -) 1,000 mg IVPB Q8H PRN PRN Reason: FEVER Stop: 06/05/19 18:00 Last Admin: 06/04/19 16:03 Dose: 1,000 mg Documented by: Allopurinol (Zyloprim -) 300 mg PO DAILY [facility] Last Admin: 06/05/19 09:56 Dose: 300 mg Documented by: IV Flush (Angelina-Cath Flush) 10 ml IVPUSH PRN PRN PRN Reason: protocol, maintain patency Fat Emulsion-[place] Oil/Soybean Oil (Clinolipid 20% Iv Fat Emulsion) 250 mls @ 20.833 mls/hr IV DAILY@2200 [facility] Last Admin: 06/04/19 21:17 Dose: 20.833 mls/hr Documented by: Amino Acids (Clinimix -) 1,000 mls @ 83.33 mls/hr IV Q12H [facility] Last Admin: 06/05/19 09:48 Dose: 83.33 mls/hr Documented by: Meropenem 1 gm/ Dextrose 100 mls @ 200 mls/hr IVPB Q12H [facility] Last Admin: 06/05/19 01:43 Dose: 200 mls/hr Documented by: Lactobacillus Acidophilus (Bacid -) 1 tab PO DAILY [facility] Last Admin: 06/05/19 09:56 Dose: 1 tab Documented by: Lamivudine (Epivir Oral Solution -) 100 mg PO DAILY [facility] Last Admin: 06/05/19 09:59 Dose: 100 mg Documented by: Multivitamins/Minerals (Infuvite Adult -) 10 ml IV DAILY [facility] Last Admin: 06/05/19 09:59 Dose: 10 ml Documented by: Pantoprazole Sodium (Protonix Iv) 40 mg IVPUSH DAILY [facility] Last Admin: 06/05/19 09:52 Dose: 40 mg Documented by: Phenylephrine HCl (Rebel-Synephrine 0.5% Nasal [place] -) 1 spray NS BID [facility] Last Admin: 06/05/19 09:53 Dose: 1 spray Documented by: Potassium Chloride (Potassium Chloride Oral Liquid) 20 meq PO BID [facility] Last Admin: 06/05/19 09:56 Dose: 20 meq Documented by: Valacyclovir HCl (Valtrex -) 500 mg PO DAILY [facility] Last Admin: 06/05/19 09:56 Dose: 500 mg Documented by: - Objective Vital Signs: Vital Signs Temperature 99.6 F 06/05/19 10:00 Pulse Rate 90 06/05/19 10:00 Respiratory Rate 06/05/19 10:00 Blood Pressure 126/62 06/05/19 10:00 O2 Sat by Pulse Oximetry (%) 95 06/04/19 22:00 Constitutional: Yes: No Distress Eyes: Yes: Conjunctiva Clear HENT: Yes: Atraumatic Neck: Yes: Supple Cardiovascular: Yes: Regular Rate and Rhythm Respiratory: Yes: Regular, CTA Bilaterally Gastrointestinal: Yes: Soft. No: Tenderness Musculoskeletal: No: Joint Stiffness, Joint Swelling Extremities: No: Cold, Cool, Erythema Edema: No Integumentary: Yes: Bruising Neurological: Yes: Alert, Oriented ...Motor Strength: WNL Psychiatric: Yes: Alert, Oriented. No: Agitated, Suicidal Ideation Labs: CBC, BMP 06/04/19 08:35 06/04/19 08:35 INR, PTT INR 1.25 (0.83-1.09) H 05/19/19 05:45 Fibrinogen 259.0 mg/dL (238-498) 05/19/19 05:45 - ....Imaging Other: Report Reviewed Assessment/Plan Patient is a 73 year old lady with a significant pmh of CLL, CHF, HTN, HBV admitted with sepsis; h/o UTis renal stones, and cellulitis; h/o UTI ESBL, sepsis, CRF, CLL and acute leukemia severe anemia s/p PRBC sp PLT s/p fever UTI; ATB per ID; [place] still the plan d/w staff
--- NOTE | 2019-06-05 11:01 | PN ---
Progress Note (short form) - Note Progress Note: awake follow commands afebrile today no complaints Vital Signs Period Temp Pulse Resp BP Sys/Borjas Pulse Ox Last 24 Hr 98.3 F-100.9 F 84-95 18-20 112-134/54-64 95-95 cor-rrr lungs decreased bs at bases abd soft,nt ext no edema port no erythema CBC, BMP 06/04/19 08:35 06/04/19 08:35 Microbiology 06/04/19 00:33 Urine - Urine - Catheterized Urine Culture - Preliminary Lactose Fermenting Neg Bacilli 06/04/19 00:33 Blood - Peripheral Venous Blood Culture - Preliminary NO GROWTH OBTAINED AFTER 24 HOURS, INCUBATION TO CONTINUE FOR 4 DAYS. 06/04/19 00:33 Blood - Angelina Cath Blood Culture - Preliminary NO GROWTH OBTAINED AFTER 24 HOURS, INCUBATION TO CONTINUE FOR 4 DAYS. 05/19/19 10:30 Blood - Peripheral Venous Blood Culture - Final NO GROWTH AFTER 5 DAYS INCUBATION 05/19/19 10:35 Blood - Peripheral Venous Blood Culture - Final NO GROWTH AFTER 5 DAYS INCUBATION 05/19/19 09:00 Sputum - Endotrachea Suction/Ventilator Gram Stain - Final 05/19/19 09:00 Sputum - Endotrachea Suction/Ventilator Sputum Culture - Final NORMAL RESPIRATORY KANE 05/15/19 15:00 Blood - Peripheral Venous Blood Culture - Final NO GROWTH AFTER 5 DAYS INCUBATION 05/15/19 15:00 Blood - Peripheral Venous Blood Culture - Final NO GROWTH AFTER 5 DAYS INCUBATION 05/19/19 13:30 Urine - Urine Henley Urine Culture - Final NO GROWTH OBTAINED 05/16/19 16:50 Sputum - Endotrachea Suction/Ventilator Gram Stain - Final 05/16/19 16:50 Sputum - Endotrachea Suction/Ventilator Sputum Culture - Final NORMAL RESPIRATORY KANE 05/13/19 15:00 Blood - Peripheral Venous Blood Culture - Final NO GROWTH AFTER 5 DAYS INCUBATION 05/13/19 12:50 Blood - Peripheral Venous Blood Culture - Final NO GROWTH AFTER 5 DAYS INCUBATION 05/15/19 18:30 Urine - Urine Henley Urine Culture - Final NO GROWTH OBTAINED 05/13/19 12:56 Urine - Urine - Catheterized Urine Culture - Final NO GROWTH OBTAINED 05/09/19 12:44 Blood - Peripheral Venous Blood Culture - Final NO GROWTH AFTER 5 DAYS INCUBATION 05/09/19 12:58 Blood - Peripheral Venous Blood Culture - Final NO GROWTH AFTER 5 DAYS INCUBATION 05/10/19 00:35 Urine - Urine - Catheterized Urine Culture - Final NO GROWTH OBTAINED 05/05/19 11:25 Blood - Peripheral Venous Blood Culture - Final NO GROWTH AFTER 5 DAYS INCUBATION 05/05/19 11:38 Blood - Peripheral Venous Blood Culture - Final NO GROWTH AFTER 5 DAYS INCUBATION 05/03/19 23:20 Blood - Peripheral Venous Blood Culture - Final Staphylococcus Auricularis Staphylococcus Epidermidis 05/03/19 23:20 Blood - Peripheral Venous Blood Culture - Final Staphylococcus Coagulase Neg 05/06/19 Unknown Stool Clostridioides difficile Antigen - Final 05/06/19 Unknown Stool Clostridioides difficile Toxin Assay - Final 05/04/19 00:05 Urine - Urine Clean Catch Urine Culture - Final Citrobacter Freundii Enterococcus Faecalis 05/03/19 23:46 Throat Throat Culture - Final NO BETA HEMOLYTIC STREPTOCOCCI ISOLATED ANC 22k cxray improved from last film a/p fevers- new, not neutropenic-trending down UTI- continue meropenem (hstory of ESBL uti in the past) f/u cultures AML/CLL-plan for calvary vancomycin allergy overall prognosis is poor for hospice evaluation
--- NOTE | 2019-06-05 13:28 | PN ---
Progress Note (short form) - Note Progress Note: PULMONARY Awake, alert. Denies shortness of breath. Vital Signs Period Temp Pulse Resp BP Sys/Borjas Pulse Ox Last 24 Hr 98.3 F-100.9 F 84-95 18-20 112-134/54-64 95-95 Gen: NAD at rest Heart: RRR Lung: scattered rhonchi Abd: soft, nontender Ext: + edema CBC, BMP 06/04/19 08:35 06/04/19 08:35 Active Medications Acetaminophen (Ofirmev Injection -) 1,000 mg IVPB Q8H PRN PRN Reason: FEVER Stop: 06/05/19 18:00 Last Admin: 06/04/19 16:03 Dose: 1,000 mg Documented by: Allopurinol (Zyloprim -) 300 mg PO DAILY [facility] Last Admin: 06/05/19 09:56 Dose: 300 mg Documented by: IV Flush (Angelina-Cath Flush) 10 ml IVPUSH PRN PRN PRN Reason: protocol, maintain patency Fat Emulsion-[place] Oil/Soybean Oil (Clinolipid 20% Iv Fat Emulsion) 250 mls @ 20.833 mls/hr IV DAILY@2200 [facility] Last Admin: 06/04/19 21:17 Dose: 20.833 mls/hr Documented by: Amino Acids (Clinimix -) 1,000 mls @ 83.33 mls/hr IV Q12H [facility] Last Admin: 06/05/19 12:32 Dose: Not Given Documented by: Meropenem 1 gm/ Dextrose 100 mls @ 200 mls/hr IVPB Q12H [facility] Last Admin: 06/05/19 12:58 Dose: 200 mls/hr Documented by: Lactobacillus Acidophilus (Bacid -) 1 tab PO DAILY [facility] Last Admin: 06/05/19 09:56 Dose: 1 tab Documented by: Lamivudine (Epivir Oral Solution -) 100 mg PO DAILY [facility] Last Admin: 06/05/19 09:59 Dose: 100 mg Documented by: Multivitamins/Minerals (Infuvite Adult -) 10 ml IV DAILY [facility] Last Admin: 06/05/19 09:59 Dose: 10 ml Documented by: Pantoprazole Sodium (Protonix Iv) 40 mg IVPUSH DAILY [facility] Last Admin: 06/05/19 09:52 Dose: 40 mg Documented by: Phenylephrine HCl (Rebel-Synephrine 0.5% Nasal [place] -) 1 spray NS BID [facility] Last Admin: 06/05/19 09:53 Dose: 1 spray Documented by: Potassium Chloride (Potassium Chloride Oral Liquid) 20 meq PO BID [facility] Last Admin: 06/05/19 09:56 Dose: 20 meq Documented by: Valacyclovir HCl (Valtrex -) 500 mg PO DAILY [facility] Last Admin: 06/05/19 09:56 Dose: 500 mg Documented by: A/P s/p Acute Hypoxic Respiratory Failure Pneumonia likely Aspiration UTI Septic Shock resolving Acute on Chronic Renal Failure AML Thrombocytopenia/Anemia - antibiotics per ID - monitor CBC - transfuse as needed - replete lytes - aspiration precautions - DVT prophylaxis - for hospice placement
[2019-06-05] MEDS: ACETAMINOPHEN 1000 MG/100 ML VIAL (NON FORMULARY) IVPB PRN (14:14)
[2019-06-05] MEDS: FAT EMULSION/OLIVE/SOY/PHOSPHO 250 ML IV SCH (22:55)
[2019-06-06] MEDS ORDERED: DEXTROSE 5%-WATER 100 ML IVPB ONE ×2 (01:37→14:32)
[2019-06-06] MEDS ORDERED: MEROPENEM 1 GM VIAL (RESTRICTED TO ID) IVPB ONE ×2 (01:37→14:31)
[2019-06-06] MEDS: MEROPENEM 1 GM in DEXTROSE 5%-WATER 100 ML IVPB SCH ×2 (01:39→14:37)
--- NOTE | 2019-06-06 07:47 | PN ---
Progress Note (short form) - Note Progress Note: PAtient seen and examined comfortable. ORiented in person only HAs a nose bleed AFVSS Cor: RSR, No murmurs, No gallops Lungs: decreased at bases Abd: Soft, Normal bowel sounds, No organomegaly Ext:1+ edema Labs/MEds reviewed A/P Acute hypoxic respiratory failure ?aspiration AML Sepsis Thrombocytopenia Anemia s/p platelet transfusion Given advanced dementia, very poor functional status, fragility, and underlying AML/ cytopenias recommended hospice care at [place]
--- NOTE | 2019-06-06 09:42 | PN ---
Progress Note, Physician Chief Complaint: awake alert afebrile. Poor po intake, no appetite - no pain. - Current Medication List Current Medications: Active Medications Allopurinol (Zyloprim -) 300 mg PO DAILY [facility] Last Admin: 06/05/19 09:56 Dose: 300 mg Documented by: IV Flush (Angelina-Cath Flush) 10 ml IVPUSH PRN PRN PRN Reason: protocol, maintain patency Fat Emulsion-[place] Oil/Soybean Oil (Clinolipid 20% Iv Fat Emulsion) 250 mls @ 20.833 mls/hr IV DAILY@2200 [facility] Last Admin: 06/05/19 22:55 Dose: 20.833 mls/hr Documented by: Amino Acids (Clinimix -) 1,000 mls @ 83.33 mls/hr IV Q12H [facility] Last Admin: 06/05/19 22:33 Dose: 83.33 mls/hr Documented by: Meropenem 1 gm/ Dextrose 100 mls @ 200 mls/hr IVPB Q12H [facility] Last Admin: 06/06/19 01:39 Dose: 200 mls/hr Documented by: Caspofungin 70 mg/ Sodium (Chloride) 250 mls @ 250 mls/hr IVPB ONCE ONE Stop: 06/06/19 10:19 Lactobacillus Acidophilus (Bacid -) 1 tab PO DAILY [facility] Last Admin: 06/05/19 09:56 Dose: 1 tab Documented by: Lamivudine (Epivir Oral Solution -) 100 mg PO DAILY [facility] Last Admin: 06/05/19 09:59 Dose: 100 mg Documented by: Multivitamins/Minerals (Infuvite Adult -) 10 ml IV DAILY [facility] Last Admin: 06/05/19 09:59 Dose: 10 ml Documented by: Pantoprazole Sodium (Protonix Iv) 40 mg IVPUSH DAILY [facility] Last Admin: 06/05/19 09:52 Dose: 40 mg Documented by: Phenylephrine HCl (Rebel-Synephrine 0.5% Nasal [place] -) 1 spray NS BID [facility] Last Admin: 06/05/19 22:36 Dose: 1 spray Documented by: Potassium Chloride (Potassium Chloride Oral Liquid) 20 meq PO BID [facility] Last Admin: 06/05/19 22:35 Dose: Not Given Documented by: Valacyclovir HCl (Valtrex -) 500 mg PO DAILY [facility] Last Admin: 06/05/19 09:56 Dose: 500 mg Documented by: - Objective Vital Signs: Vital Signs Temperature 98.0 F 06/06/19 08:08 Pulse Rate 90 06/06/19 08:08 Respiratory Rate 18 06/06/19 08:08 Blood Pressure 109/52 L 06/06/19 08:08 O2 Sat by Pulse Oximetry (%) 95 06/05/19 21:00 Constitutional: Yes: No Distress, Calm Eyes: Yes: Conjunctiva Clear HENT: Yes: Atraumatic Neck: Yes: Supple Cardiovascular: Yes: Regular Rate and Rhythm Respiratory: Yes: Diminished Gastrointestinal: Yes: Soft. No: Tenderness Genitourinary: No: Hematuria Musculoskeletal: No: Joint Stiffness, Joint Swelling Extremities: No: Cold, Cool Edema: No Integumentary: Yes: Bruising. No: Rash Neurological: Yes: Alert ...Motor Strength: WNL Psychiatric: Yes: Alert. No: Agitated Labs: CBC, BMP 06/04/19 08:35 06/04/19 08:35 INR, PTT INR 1.25 (0.83-1.09) H 05/19/19 05:45 Fibrinogen 259.0 mg/dL (238-498) 05/19/19 05:45 - ....Imaging Other: Report Reviewed Assessment/Plan Patient is a 73 year old lady with a significant pmh of CLL, CHF, HTN, HBV admitted with sepsis; h/o UTis renal stones, and cellulitis; h/o UTI ESBL, sepsis, CRF, CLL and acute leukemia severe anemia s/p PRBC sp PLT DNR DNI s/p fever UTI sepsis; ATB per ID; poor po intake; poor prognosis; [place] pending d/w staff
[2019-06-06] MEDS ORDERED: CASPOFUNGIN ACETATE 70 MG in SODIUM CHLORIDE 250 ML IVPB ONE (10:00)
[2019-06-06] MEDS: POTASSIUM CHLORIDE ORAL LIQUID 20 MEQ/15 ML PO SCH (10:08)
[2019-06-06] MEDS: PANTOPRAZOLE SODIUM 40 MG VIAL IVPUSH SCH (10:08)
[2019-06-06] MEDS: LACTOBACILLUS ACIDOPHILUS 1 TABLET PO SCH (10:08)
[2019-06-06] MEDS: valACYclovir HCL 500 MG TABLET (FP) PO SCH (10:08)
[2019-06-06] MEDS: ALLOPURINOL 300 MG TABLET (FP) PO SCH (10:08)
[2019-06-06] MEDS: lamiVUDine 10 MG/1 ML BULK BOTTLE PO SCH (10:09)
[2019-06-06] MEDS: PHENYLEPHRINE 0.5% NASAL SPRAY 15 ML BOTTLE NS SCH (10:17)
[2019-06-06] MEDS ORDERED: PT OWN MED DRAWER 7, Y5N ONE (11:19)
[2019-06-06] MEDS: MULTIVIT INJ. ADULT COMBO WITH VIT K 1 COMBO 10 ML VIAL IV SCH (11:47)
[2019-06-06] MEDS: AMINO ACIDS 4.25%/D5W 1,000 ML IV SCH (11:49)
--- NOTE | 2019-06-06 12:09 | PN ---
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 Pending [place].
[2019-06-06 14:41] VITALS: BP 111/53; PULSE 88; TEMP 99
--- NOTE | 2019-06-06 18:25 | PN ---
Progress Note (short form) - Note Progress Note: patient discharged to [facility] blood cultures with yeast 2 of 4 blood cultures received one dose of caspofungin this am 70 mg d/w dr herrera she will inform her team at [facility] about the blood culture results in am
--- NOTE | 2019-06-07 11:53 | PN ---
Progress Note (short form) - Note Progress Note: d/w ID dr Schulte last evening; 1 set blood cx positive for yeast; pt to receive cancidas (capsofungin) 50 mg ivpb daily for 2 weeks and also rec ertapenem 1 gram ivpb daily x 10 days (instead of meropenem) - I called [place] [phone] d/w staff and d/w [place] dr taking care of [place] in [place]; also d/w pt's daughter Anastasiia the above; no lipis iv while on Cancidas; further port management and treatment per [place].
== END 2019-06-06 17:57 | disposition hospice, inpatient (51) | DRG 870 ==
LOC: JER 22:08 → JERBED 05-04 01:06 → J6S 05-04 14:33 → J7W 05-09 19:09 → JICU 05-15 08:12 → J4S 05-24 20:43
PROVIDERS: ADMIT Internal Medicine; ATTEND Internal Medicine
PROC: 5A1955Z Respiratory Ventilation, Greater than 96 Consecutive Hours (ICD-10-PCS; principal; 2019-05-15)
PROC: 0BH17EZ Insertion of Endotracheal Airway into Trachea, Via Natural or Artificial Opening (ICD-10-PCS; 2019-05-15)
PROC: 30233N1 Transfusion of Nonautologous Red Blood Cells into Peripheral Vein, Percutaneous Approach (ICD-10-PCS; 2019-05-15)
PROC: 30233R1 Transfusion of Nonautologous Platelets into Peripheral Vein, Percutaneous Approach (ICD-10-PCS; 2019-05-17)
DX: A41.9 Sepsis, unspecified organism (principal); J96.01 Acute respiratory failure with hypoxia; J69.0 Pneumonitis due to inhalation of food and vomit; R65.21 Severe sepsis with septic shock; C92.00 Acute myeloblastic leukemia, not having achieved remission; N17.9 Acute kidney failure, unspecified; N39.0 Urinary tract infection, site not specified; E87.1 Hypo-osmolality and hyponatremia; N13.30 Unspecified hydronephrosis; D61.818 Other pancytopenia; B18.1 Chronic viral hepatitis B without delta-agent; I50.32 Chronic diastolic (congestive) heart failure; E87.0 Hyperosmolality and hypernatremia; F03.90 Unspecified dementia, unspecified severity, without behavioral disturbance, psychotic disturbance, mood disturbance, and anxiety; D56.3 Thalassemia minor; D64.9 Anemia, unspecified; E87.6 Hypokalemia; I12.9 Hypertensive chronic kidney disease with stage 1 through stage 4 chronic kidney disease, or unspecified chronic kidney disease; N18.9 Chronic kidney disease, unspecified; R04.0 Epistaxis; N18.3 Chronic kidney disease, stage 3 (moderate); R13.10 Dysphagia, unspecified; Z66 Do not resuscitate
CPT/HCPCS: 36415; 36430; 36511; 36600; 70450-TC; 71045-TC-FY; 71250-TC; 74230-TC-FY; 76775-TC; 76856-TC; 80048; 80053; 81003; 82565; 82803; 82962; 83605; 83735; 84100; 84300; 84484; 85025; 85027; 85032; 85044; 85384; 85610; 85730; 86850; 86900; 86901; 86922; 87040; 87070; 87086; 87106; 87186; 87205; 87324; 87449; 87804; 87880; 92611-GN; 93005; 93010; 94002; 94640; 97116-GP; 99285-25; J0131; J0878; J7030; J7502; P9017; P9034; P9038; P9054; P9058